=== PATIENT | female | born 1945 | race Caucasian/White ===

== ENCOUNTER 2016-07-21 18:22 | Inpatient (IN) | payer OTHER, MEDICARE ==
[~2016-07-21] VITALS: Ht 121.9 cm; Wt 61.0 kg
[~2016-07-21 18:22] MED LIST: ADVIN25050 INH; CHOL100010 PO; CLON0.3T PO; CRG25 PO; HYDR-4717 PO; HYDR2TAB48 PO; HYDR4TAB2 PO; LATA0.009 OPR; LINE1TAB7 PO; LORA-741 PO; METH10TA2 PO; TIOTCAP INH
[2016-07-21] MEDS ORDERED: POLYETHYLENE (MIRALAX) 17 GM PACK PO PRN ×2 (18:45→22:45)
[2016-07-21] MEDS ORDERED: ACETAMINOPHEN 325 MG TAB PO PRN ×2 (18:45→22:45)
[2016-07-21] MEDS ORDERED: ALUMINUM/MAGNESIUM/SIMETH (MAALOX MAX) 30 ML UDC PO PRN (18:45)
[2016-07-21] MEDS ORDERED: ONDANSETRON INJ 2 MG/ML 2 ML VIAL IV PRN (18:45)
[2016-07-21] MEDS ORDERED: ALBUTEROL 0.083% NEBU SOLN 3 ML VIAL INH PRN (18:45)
[2016-07-21] MEDS ORDERED: MAGNESIUM HYDROXIDE SUSP 30 ML UDC PO PRN (18:45)
[2016-07-21 18:48] VITALS: BP 131/82; PULSE 72; TEMP 37.1; O2SAT 94
[2016-07-21 19:05] VITALS: BP 131/82; PULSE 72; TEMP 37.1; O2SAT 94; Ht 121.9 cm; Wt 61.0 kg
[2016-07-21 19:26] LABS: BASO % 0.2 %; BASO ABS # 0.04 K/uL (0-0.2); COMPLETE YES; EOS % 1.2 %; HEMATOCRIT 38.9 % (37-47); IG% 1.5 %; MEAN CELL VOLUME 95.8 fL (80-100); MEAN CORPUSCULAR HEMOGLOBIN 30.5 pg (25-34); MEAN CORPUSCULAR HGB CONC 31.9 g/dl (32-36); MEAN PLATELET VOLUME 12.2 fL (7.4-10.4); MONO % 10.2 %; NEUT % 75.9 %; PLATELET COUNT 250 K/uL (130-400); RED BLOOD COUNT 4.06 M/uL (4.2-5.4); WHITE BLOOD COUNT 16.35 K/uL (4.8-10.8)
[2016-07-21 19:52] LABS: PROTHROMBIN TIME (PATIENT) 10.8 SECONDS (9.0-12.0)
[2016-07-21 20:05] LABS: BUN/CREATININE RATIO 20.4 (10-20); CALCIUM 9.4 mg/dl (8.5-10.1); CREATININE 1.9 mg/dl (0.60-1.20); POTASSIUM 3.5 mmol/L (3.5-5.1)
[2016-07-21] MEDS ORDERED: VANCOMYCIN INJ 1,500 MG in SODIUM CHLORIDE 0.9% 500ML 500 ML IV ONE (20:15)
[2016-07-21] MEDS ORDERED: VANCOMYCIN CONSULT ACTIVE PRN (20:30)
[2016-07-21] MEDS ORDERED: PIPERACILL/TAZOBAC CONSULT ACTIVE PRN (20:30)
--- NOTE | 2016-07-21 20:41 | Pharmacy Progress Note ---
Pharmacy Antibiotic Consult Date of Service: Jul 21, 2016. Pharmacy Dosing Scope Pharmacy is consulted to initiate Vanco/Zosyn IV dosing therapy, order appropriate labs and adjust drug dose/frequency. Subjective The patient is a 70 year old female admitted on Jul 21, 2016 at 18:22. Objective Height (Feet): 4 Weight (Kilograms): 61.000 Lab Results (24hrs): Item Value Date Time Creatinine 1.90 mg/dl H 07/21/161909 Est Creatinine Clear Calc Drug Dose 15.7 ml/min 07/21/161909 Laboratory Tests Test 07/21/16 19:10 BUN/Creatinine Ratio 20.4 Blood Urea Nitrogen 39 mg/dl Creatinine 1.90 mg/dl White Blood Count 16.35 K/uL Red Blood Count 4.06 M/uL Hemoglobin 12.4 g/dL Hematocrit 38.9 % Mean Corpuscular Volume 95.8 fL Mean Corpuscular Hemoglobin 30.5 pg Mean Corpuscular Hemoglobin Concent 31.9 g/dl Platelet Count 250 K/uL Mean Platelet Volume 12.2 fL Neutrophils (%) (Auto) 75.9 % Lymphocytes (%) (Auto) 11.0 % Monocytes (%) (Auto) 10.2 % Eosinophils (%) (Auto) 1.2 % Basophils (%) (Auto) 0.2 % Neutrophils # (Auto) 12.41 K/uL Lymphocytes # (Auto) 1.80 K/uL Monocytes # (Auto) 1.66 K/uL Eosinophils # (Auto) 0.20 K/uL Basophils # (Auto) 0.04 K/uL Micro Results: Item Value Date Time Blood Culture Received 07/21/161916 Blood Pending MRSA DNA Surveillance Screen Ordered 07/21/161844 Nasal Pending Assessment & Plan Pt is a 70yo F p/w pulmonary sx. Pt is familiar to the pharmacy kinetic team, she was admitted in March of 2016 for PNA. Pt's renal fxn looks to be slightly elevated to her baseline: Scr; 1.9, eCrCl: 16cc/min. Pt is a resident of [facility], has a PMHx postive for MRSA and CKD. Experiencing leukocytosis w / a left shift. MRSA nasal and BC are both currently pending. Pt population p' kinetics: t1/2=39hrs, ke=0.0177. Vanco * Loading dose: Vanco 1500mg (~25mg/kg) IV X 1 dose at 2100 * Goal trough level estimate: between 15 - 20 mcg/mL appropriate for PNA. * Random level has been ordered for: with AM labs. Zosyn * Set to receive Zosyn 3.375g 30 min infsn @ 21 * Then 3.375g q12h, appropriate for eCrCl <20cc/min and clinical status Thank you for consulting the pharmacy kinetic team and including us in the care of Ms. Sommers. Pharmacy will continue to follow and will adjust dose/frequency as necessary. Thank you
[2016-07-21] MEDS ORDERED: PIPERACILL/TAZOBAC IV 3.375 GM in DEXTROSE 5% 100ML IV ONE (21:00)
[2016-07-21] MEDS: ALBUT/IPRATROP 3MG/0.5MG NEB 3 ML VIAL INH SCH ×2 (21:00→23:18)
--- NOTE | 2016-07-21 21:12 | DIAGNOSTIC IMAGING REPORT ---
CHEST 2 VIEWS ROUTINE CLINICAL HISTORY: Pneumonia. Diffuse rhonchi. COMPARISON STUDY: 05/09/2016 FINDINGS: The heart is mildly enlarged. There is aortic tortuosity. There are multiple old rib fractures. There are multiple old compression fractures and the patient is status post multilevel vertebroplasty. There is fecal retention. There is no failure. There is no lobar consolidation. There are subsegmental atelectatic changes at both lung bases left greater than right. There are no significant pleural effusions.[ IMPRESSION: Basilar atelectatic changes. No active disease in the chest. Electronically signed by: Himanshu Cueto M.D. 07/21/2016 9:10 PM Dictated Date/Time: 07/21/2016 9:09 PM
[2016-07-21] MEDS: METHYLPREDNISOLONE IV 80 MG in SYRINGE 0 ML IV SCH (21:24)
[2016-07-21] MEDS: ENOXAPARIN 30 MG/0.3 ML SYR SQ SCH (21:26)
[2016-07-21] MEDS ORDERED: EPINEPHRINE ADULT AUTO-INJECT 0.3 MG SYR IM PRN (22:45)
--- NOTE | 2016-07-21 22:56 | History and Physical ---
History & Physical Date & Time of Service: Jul 21, 2016 at 22:49 Chief Complaint: Pneumonia - Failing Treatment Primary Care Physician: Marti Vila Past Medical/Surgical History Medical Problems: (1) Ambulatory dysfunction Status: Resolved (2) Cholelithiases Status: Resolved (3) Chronic Kidney Disease, Stage Iii (Moderate) Status: Chronic (4) Compression fracture of fourth lumbar vertebra Status: Resolved (5) Constipation Status: Resolved (6) Crystal arthritis Status: Chronic (7) Duodenal bulb ulcer Status: Chronic (8) DVT (deep venous thrombosis) Status: Resolved (9) Fecal impaction of colon Status: Resolved (10) Gout Status: Chronic (11) Gout attack Status: Resolved (12) Headache Status: Resolved (13) Hodgkins lymphoma Status: Resolved (14) Hyperlipidemia Nec/Nos Status: Chronic (15) Hypertension Status: Chronic (16) Hypertension Status: Resolved (17) Hypertensive urgency Status: Resolved (18) Hypertensive urgency Status: Resolved (19) Hypertensive urgency Status: Resolved (20) Intractable abdominal pain Status: Resolved (21) Intractable pain Status: Resolved (22) Intractable pain Status: Resolved (23) Intractable pain Status: Resolved (24) Knee pain Status: Resolved (25) Left renal artery stenosis Status: Resolved (26) Lumbar compression fracture Status: Chronic (27) Malignant HTN with heart disease, 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, with chronic kidney disease Status: Resolved (28) Medication reaction Status: Resolved (29) Methadone withdrawal Status: Resolved (30) Narcotic withdrawal Status: Resolved (31) Narcotic withdrawal Status: Resolved (32) Noncompliance with medication regimen Status: Resolved (33) Noncompliance with medications Status: Resolved (34) Opiate use Status: Chronic (35) Osteoporosis Status: Chronic (36) Perforated duodenal ulcer Status: Resolved (37) right hand cellulitis Status: Resolved (38) Right renal artery stenosis Status: Chronic (39) Secondary hyperparathyroidism Status: Chronic (40) Vomiting Status: Resolved (41) Wedge compression fracture of T11 vertebra Status: Resolved Surgical Problems: (1) History of kyphoplasty Status: Resolved (2) left renal artery stent placement Status: Resolved Family History Heart disease Social History Smoking Status: Former Smoker Drug Use: none Marital Status: Housing status: lives with significant other Occupational Status: disabled Immunizations History of Influenza Vaccine: Yes Influenza Vaccine Date: Mar 01, 2013 History of Tetanus Vaccine?: Yes Tetanus Immunization Date: Dec 18, 2009 History of Pneumococcal: Yes Pneumococcal Date: Jun 01, 2012 History of Hepatitis B Vaccine: No Multi-Drug Resistant Organisms History of MDRO: Yes Type of MDRO: MRSA Allergies Coded Allergies: Squash (Verified Allergy, Unknown, Zucchini, 04/22/16) Azithromycin (Verified Adverse Reaction, Unknown, nausea, 04/22/16) Levofloxacin (Verified Adverse Reaction, Unknown, nausea, 04/22/16) Home Medications Scheduled Allopurinol (Zyloprim), 100 MG PO BID Baclofen (Lioresal), 10 MG PO TID Carvedilol (Carvedilol), 25 MG PO BID Cholecalciferol (Vitamin D), 4,000 INTER.UNIT PO DAILY Clonidine Hcl (Catapres), 0.3 MG PO BID Ergocalciferol (Drisdol), 50,000 INTER.UNIT PO WEEKLY Ferrous Sulfate (Kp Ferrous Sulfate), 325 MG PO DAILY Fluticasone Prop/Salmeterol (Advair Diskus 250-50 Mcg/Dose), 1 PUFF INH BID Guaifenesin Ext Rel (Mucinex Ext Rel), 600 MG PO BID Hydralazine Hcl (Apresoline), 50 MG PO Q8H Hydromorphone Hcl (Dilaudid), 2 MG PO BID Hydromorphone Hcl (Dilaudid), 4 MG PO BID Latanoprost 0.005% Oph (Xalatan 0.005% Oph), 1 DROP OPR HS Linezolid (Zyvox), 600 MG PO BID Lorazepam (Ativan), 0.5 MG PO TID Methadone Hcl (Dolophine), 30 MG PO TID Multivitamin (Multivitamin), 1 TAB PO DAILY Pantoprazole (Protonix), 40 MG PO BID Prednisone (Prednisone), 5 MG PO DAILY Sucralfate (Carafate), 10 ML PO ACHS Tiotropium Lathrop (Spiriva Handihaler), 1 CAP INH DAILY Zolpidem Tartrate (Ambien), 10 MG PO HS Scheduled PRN Acetaminophen (Tylenol), 650 MG PO Q6 PRN for Pain or Fever Epinephrine (Epipen), 0.3 MG IM UD PRN for ALLERGIC REACTION Polyethylene Glycol 3350 (Miralax), 17 GM PO DAILY PRN for Constipation Physical Exam Vital Signs Date Time Temp Pulse Resp B/P Pulse Ox O2 Delivery O2 Flow Rate FiO2 07/21/16 19:05 37.1 72 18 131/82 94 Nasal Cannula 3.0 07/21/16 18:48 37.1 72 18 131/82 94 Nasal Cannula 3.0 Diagnostics Laboratory Results Results Past 24 Hours Test 07/21/16 19:10 Range/Units White Blood Count 16.35 4.8-10.8 K/uL Red Blood Count 4.06 4.2-5.4 M/uL Hemoglobin 12.4 12.0-16.0 g/dL Hematocrit 38.9 37-47 % Mean Corpuscular Volume 95.8 80-100 fL Mean Corpuscular Hemoglobin 30.5 25-34 pg Mean Corpuscular Hemoglobin Concent 31.9 32-36 g/dl Platelet Count 250 130-400 K/uL Mean Platelet Volume 12.2 7.4-10.4 fL Neutrophils (%) (Auto) 75.9 % Lymphocytes (%) (Auto) 11.0 % Monocytes (%) (Auto) 10.2 % Eosinophils (%) (Auto) 1.2 % Basophils (%) (Auto) 0.2 % Neutrophils # (Auto) 12.41 1.4-6.5 K/uL Lymphocytes # (Auto) 1.80 1.2-3.4 K/uL Monocytes # (Auto) 1.66 0.11-0.59 K/uL Eosinophils # (Auto) 0.20 0-0.5 K/uL Basophils # (Auto) 0.04 0-0.2 K/uL RDW Standard Deviation 54.0 36.4-46.3 fL RDW Coefficient of Variation 15.5 11.5-14.5 % Immature Granulocyte % (Auto) 1.5 % Immature Granulocyte # (Auto) 0.24 0.00-0.02 K/uL Prothrombin Time 10.8 9.0-12.0 SECONDS Prothromb Time International Ratio 1.0 0.9-1.1 Sodium Level 139 136-145 mmol/L Potassium Level 3.5 3.5-5.1 mmol/L Chloride Level 94 98-107 mmol/L Carbon Dioxide Level 38 21-32 mmol/L Anion Gap 7.0 3-11 mmol/L Blood Urea Nitrogen 39 7-18 mg/dl Creatinine 1.90 0.60-1.20 mg/dl Est Creatinine Clear Calc Drug Dose 15.7 ml/min Estimated GFR () 30.9 Estimated GFR (Non- 26.6 BUN/Creatinine Ratio 20.4 10-20 Random Glucose 105 70-99 mg/dl Calcium Level 9.4 8.5-10.1 mg/dl Chemistry Specimen Hemolysis Microbiology Results 07/21/16 Blood Culture, Received Pending 07/21/16 Blood Culture, Received Pending 07/21/16 MRSA DNA Surveillance Screen, Received Pending Impression Assessment and Plan admit #[id number] Advanced Directives Existing Living Will: No Existing Power of [employer] Instructor: No VTE Prophylaxis VTE Risk Assessment Done? Y/N: Yes Risk Level: Moderate
[2016-07-21 23:18] VITALS: PULSE 64; O2SAT 91
[2016-07-21] MEDS ORDERED: ZOLPIDEM TARTRATE 10 MG TAB ONE (23:26)
[2016-07-21 23:39] VITALS: BP 161/90; PULSE 62; TEMP 37; O2SAT 92
[2016-07-21] MEDS: SODIUM CHLORIDE 0.45% 1000ML 1,000 ML IV SCH (23:51)
[2016-07-22] VITALS (10 sets, daily range): BP systolic 167–183; BP diastolic 84–98; PULSE 56–74; TEMP 36.7–37.2; O2SAT 90–95
[2016-07-22] MEDS ORDERED: PIPERACILL/TAZOBAC IV 3.375 GM in DEXTROSE 5% 100ML 100 ML IV SCH ×2
--- NOTE | 2016-07-22 00:44 | HISTORY & PHYSICAL EXAMINATION ---
DATE OF ADMISSION: 07/21/2016 CHIEF COMPLAINT: Shortness of breath. HISTORY OF PRESENT ILLNESS: The patient is a very pleasant 70-year-old female, well known to myself from care at [facility] who has been struggling really for quite a while with respiratory illness. Dr. Carrillo and myself have both been taking care of her really throughout most of the last month. She had actually, early in May been on Rocephin for pneumonia right around [place] , was failing transition to doxycycline, she improved. By mid May she was looking fairly good from a pneumonia standpoint, but then by June 23 she appeared to have pneumonia again, was treated presumptively with conservative care after the x-ray did not necessarily confirm an infiltrate, but then on June 30 she had a choking event during breakfast, having an aspiration event with rales consistent with an early pneumonitis at least or may be an aspiration pneumonia and was treated with cefdinir and Flagyl. She improved over the course of about a week, but then about 10 days after that appeared to have more of a COPD exacerbation type picture where she had diffuse bilateral wheezing, thick sputum and really felt very fatigued. Her chest x-ray then showed no infiltrate. It did show some basilar atelectasis. She was treated then with steroids, oxygen supportive care, nebs and doxycycline to cover for atypicals, but she notes really she has never recovered and today whenever Dr. Carrillo saw her she appeared struggling a bit to breathe, appeared very fatigued and her lungs sounded extremely rhonchorous, so she was directly admitted for ongoing treatment given everything that she has failed. She has not had fevers, chills or sweats. She does have a cough, previously it was a tannish yellow sputum, but now she notes that she really can even bring it up and at times feels like she is choking or going to drown on her sputum, but it is nonproductive. She notes it feels large and thick "like a hairball" and these episodes certainly put her into rather significant respiratory distress and generally she feels weak and run-down. PAST MEDICAL HISTORY: Significant for COPD with fairly low FEV1 on PFTs done about a year ago, chronic kidney disease stage 3 although her creatinine tends to run even maybe a little bit better than that, but her creatinine does tend to run in the better end of stage 3 whenever she is not on diuretics as much. However, she has peripheral edema likely venous insufficiency that sometimes nephrology has felt the need to use diuretics. Renal artery stenosis, hypertension, hyperlipidemia, GERD, weakness, deconditioning, severe osteoporosis and recurrent pneumonias. 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 PAST SURGICAL HISTORY: Kyphoplasty, fracture repairs and renal artery stenting. ALLERGIES: ZITHROMAX, LEVAQUIN SOCIAL HISTORY: Former smoker, uncertain how many pack years, but did not seem to be for very long and quit a while ago. She is . She is currently residing at [facility]. FAMILY HISTORY: Includes heart disease and kidney cancer. No diabetes. MEDICATIONS: Her home meds are Tylenol 650 q. 6 p.r.n., allopurinol 100 mg b.i.d., baclofen 10 mg t.i.d., Coreg 25 mg b.i.d., vitamin D 4000 IU daily, clonidine 0.3 b.i.d., EpiPen p.r.n. allergic reaction, Drisdol 50,000 IU weekly, iron sulfate 325 daily, Advair 250/50 one puff b.i.d., Mucinex 600 mg b.i.d., hydralazine 50 mg q. 8 hours, Dilaudid q.i.d. but alternating between 2 mg and 4 mg as we have been slowly weaning her pain meds, Xalatan drops on drop at bedtime. She has recently been on Zyvox, Ativan 0.5 mg t.i.d., methadone 30 mg t.i.d., multivitamin daily, Protonix 40 mg b.i.d., MiraLax 17 grams daily p.r.n. constipation, prednisone 5 mg daily, Carafate 10 mL p.o. q.a.c. and at bedtime, Spiriva 18 mcg one puff daily and Ambien 10 mg at bedtime. PHYSICAL EXAMINATION: VITAL SIGNS: Temperature 37.1, pulse 72, respiratory rate 18, blood pressure 131/82 and 94% on three liters. GENERAL: She is awake, alert, oriented x3, very fatigued-appearing, but otherwise in no acute distress. HEENT: Normocephalic and atraumatic. Mucous membranes are moist. CARDIOVASCULAR: Distant but regular without rubs, murmurs or gallops. LUNGS: Show diffuse coarse rhonchi and expiratory wheezing. She has good air entry, but certainly has more adventitious sounds I have ever heard in her lungs, no rales, it is not necessarily focal and she does not show accessory muscles. ABDOMEN: Soft, nondistended, nontender, no masses or organomegaly. EXTREMITIES: Without cyanosis, clubbing or edema. No calf tenderness. SKIN: Shows no rashes, no pallor or icterus. NEUROLOGIC: Shows cranial nerves II-XII to be grossly intact. Gross motor and sensory are intact. MENTAL STATE: Shows good recent and remote recall. Normal mood and affect. Good judgment and insight. LABORATORIES AND DIAGNOSTICS: CBC shows a white count of 16.35, hemoglobin 12.4, platelets 250. Basic metabolic panel with; sodium 139, potassium 3.5, chloride 94, CO2 38, BUN 39, creatinine 1.9, calcium 9.4, glucose 105. PT of 10.8. Chest x-ray; showing multiple old rib fractures, vertebral compression fractures, multilevel vertebroplasty and fecal retention. No failure, no lobar consolidation, subsegmental atelectasis per radiology review. Questionable haziness at the right lung base and the left middle lung field to my review and certainly not the best inspiration, little bit of a difficult film to interpret. ASSESSMENT AND PLAN: 1. Respiratory distress, with rhonchi. Clinically, this appears to be pneumonia more likely than a chronic obstructive pulmonary disease exacerbation, although easily it could be one, the other or both. Given her recent track record of having had repeated and recurrent pulmonary infections, I harbour big concerns about her ability to maintain any sort of healthy pulmonary toilet on her own, leading to spaces of mucus in her lungs and bacterial overgrowth. This seems more likely than repeated aspiration events given that she did have one aspiration event, but she noted it more as a choking episode and certainly multiple times that I have seen her at the facility she is eating whenever we are talking and she shows no signs or symptoms of aspiration. Because of this, will need to be treating as healthcare-associated pneumonia. 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 She certainly would be high risk for gram negatives. We will use Zosyn and ask pulmonary to see her. In terms of pulmonary toilet we will use steroids, frequent nebs, flutter valve and respiratory chest physical therapy to be safe given that she did have one choking event recently. We will have speech see her. I doubt she has a primary immune deficiency as antibody levels checked in September whenever she had a previous run of pneumonia appeared appropriate. Certainly, she is frail and is generically immunocompromised due to her frailty and chronic comorbidities. 2. Chronic kidney disease. She is increased from her baseline range. We will be holding off on any diuretics giving her gentle IV fluids. 3. Venous insufficiency. I will preemptively add compression stockings even though she has no edema at this time to try to protect against the swelling that leads to her asking for diuretics. 4. Severe refractory osteoporosis, continue her vitamin D. She sees endocrinology, I believe she is on Prolia as an outpatient. 5. Hyperparathyroidism. Continue vitamin D supplementation. 6. Chronic obstructive pulmonary disease. Continue inhalers, see above otherwise. 7. Weakness and deconditioning. Physical therapy and occupational therapy evaluation and treat. 8. Chronic diastolic congestive heart failure. Follow generally, she has not had very many congestive heart failure exacerbations. 9. Deep venous thrombosis prophylaxis, Lovenox. 10. Chronic pain, continue her home medications. 11. Chronic constipation, MiraLax 17 grams daily with an additional possibility of 2 more doses for 3 total in a day p.r.n. refractory constipation. At different times, she has required even more than that to effect a reasonable bowel movement. 12. Hypertension, continue her home medications. MTDD
[2016-07-22] MEDS: PIPERACILL/TAZOBAC IV 3.375 GM in DEXTROSE 5% 100ML IV SCH ×2 (01:32→16:40)
[2016-07-22] MEDS: METHYLPREDNISOLONE IV 80 MG in SYRINGE 0 ML IV SCH ×3 (03:46→20:34)
[2016-07-22] MEDS: ALBUT/IPRATROP 3MG/0.5MG NEB 3 ML VIAL INH SCH ×6 (04:00→23:54)
[2016-07-22 05:47] LABS: BASO % 0.2 %; BASO ABS # 0.03 K/uL (0-0.2); COMPLETE YES; HEMATOCRIT 36.1 % (37-47); IG% 1.2 %; LYMPH % 6.6 %; LYMPH ABS # 1.08 K/uL (1.2-3.4); MEAN CELL VOLUME 92.6 fL (80-100); MEAN CORPUSCULAR HEMOGLOBIN 29.7 pg (25-34); MEAN CORPUSCULAR HGB CONC 32.1 g/dl (32-36); MEAN PLATELET VOLUME 11.8 fL (7.4-10.4); MONO % 1.1 %; NEUT % 90.9 %; PLATELET COUNT 225 K/uL (130-400); WHITE BLOOD COUNT 16.25 K/uL (4.8-10.8)
[2016-07-22] MEDS: SUCRALFATE 1 GM/10 ML UDC PO SCH ×4 (06:09→20:33)
[2016-07-22 06:27] LABS: BUN/CREATININE RATIO 21.6 (10-20); CALCIUM 8.8 mg/dl (8.5-10.1); CREATININE 1.7 mg/dl (0.60-1.20); POTASSIUM 3.7 mmol/L (3.5-5.1)
[2016-07-22] MEDS: PANTOprazole SOD 40 MG TAB PO SCH ×2 (07:56→20:36)
[2016-07-22] MEDS: POLYETHYLENE (MIRALAX) 17 GM PACK PO SCH (07:57)
[2016-07-22] MEDS: ALLOPURINOL 100 MG TAB PO SCH ×2 (07:57→20:31)
[2016-07-22] MEDS: CHOLECALCIFEROL 1000 INTER.UNIT TAB PO SCH (07:58)
[2016-07-22] MEDS: MULTIVITAMIN TAB PO SCH (07:58)
[2016-07-22] MEDS: CLONIDINE HCL 0.3 MG TAB PO SCH ×2 (07:59→20:32)
[2016-07-22] MEDS: CARVEDILOL 25 MG TAB PO SCH ×2 (07:59→20:34)
[2016-07-22] MEDS: GUAIFENESIN 600 MG TABCR PO SCH ×2 (07:59→20:31)
[2016-07-22] MEDS: BACLOFEN 10 MG TAB PO SCH ×3 (08:00→20:35)
[2016-07-22] MEDS ORDERED: HYDROmorphone HCL 2 MG TAB PO SCH (08:00)
[2016-07-22] MEDS: FERROUS SULFATE 325 MG TAB PO SCH (08:00)
[2016-07-22] MEDS: FLUTICASONE/SALMETEROL 250/50 (ADVAIR) 14 PUFF/1 INHALER INH SCH ×2 (08:01→20:30)
[2016-07-22] MEDS: ERGOCALCIFEROL 50,000 INTER.UNIT CAP PO SCH (08:30)
--- NOTE | 2016-07-22 08:37 | Clinical Documentation Query ---
Dr. [facility] : CLINICAL DOCUMENTATION QUERY Patient is a 70 year old female admitted for treatment of healthcare associated pneumonia. 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 As appropriate, please explicitly link the above statements to the clinical diagnosis of pneumonia. Thank you. In your clinical opinion is this patient being managed for: ( X ) (Possible/Suspected) gram-negative and/or MRSA pneumonia, treated with IV Zosyn and Vancomycin ( ) Other explanation of clinical findings (Please Explain) ( ) Unable to determine (Please Define) ( ) Need to Discuss ( ) Not Agree The medical record reflects the following clinical findings, treatment, and risk factors. Clinical Indicators: As above Treatment: Zosyn, Vancomycin, pulmonary consultation, steroids, nebs, flutter valve, chest PT Risk Factors: Age, shelter residence, MRSA carrier history, recent hospitalization, COPD Please clarify and document your clinical opinion in the progress notes and discharge summary. Terms such as "probable", "suspected", "likely", "questionable", "possible", or "still to be ruled out" are acceptable. IF IN AGREEMENT, YOU MUST DOCUMENT ABOVE DIAGNOSTIC STATEMENT IN DAILY PROGRESS NOTES AND DISCHARGE SUMMARY. This document is not part of the patient's record. Thank You, Ad Benitez, LARA [phone]
[2016-07-22] MEDS: TIOTROPIUM BROMIDE 5 PUFF/90 MCG INH INH SCH (08:49)
[2016-07-22] MEDS: METHADONE HCL 10 MG TAB PO SCH ×3 (08:58→20:32)
[2016-07-22] MEDS: HYDROmorphone HCL 2 MG TAB PO SCH ×2 (08:58→20:32)
--- NOTE | 2016-07-22 09:12 | Progress Note ---
Subjective Subjective Date of Service: Jul 22, 2016. Problem List Medical Problems: (1) Bilateral pneumonia Status: Acute (2) CHF (congestive heart failure) Status: Acute (3) Chronic Kidney Disease, Stage Iii (Moderate) Status: Chronic (4) COPD exacerbation Status: Acute (5) Crystal arthritis Status: Chronic (6) Duodenal bulb ulcer Status: Chronic (7) Failure of outpatient treatment Status: Acute (8) Failure of outpatient treatment Status: Acute (9) Gout Status: Chronic (10) Hyperlipidemia Nec/Nos Status: Chronic (11) Hypertension Status: Chronic (12) Hypoxemia Status: Acute (13) Hypoxia Status: Acute (14) Hypoxia Status: Acute (15) Hypoxia Status: Acute (16) Lumbar compression fracture Status: Chronic (17) Opiate use Status: Chronic (18) Osteoporosis Status: Chronic (19) Peripheral edema Status: Acute (20) Pneumonia Status: Acute (21) Pneumonia involving right lung Status: Acute (22) Respiratory acidosis Status: Acute (23) Respiratory distress Status: Acute (24) Right renal artery stenosis Status: Chronic (25) Secondary hyperparathyroidism Status: Chronic (26) UTI (urinary tract infection) Status: Acute Physical Exam Vital Signs Vital Signs Past 24 Hours: Date Time Temp Pulse Resp B/P Pulse Ox O2 Delivery O2 Flow Rate FiO2 07/22/16 07:44 36.7 58 20 167/94 91 07/22/16 07:15 70 16 93 Nasal Cannula 3.0 07/22/16 06:07 56 171/93 07/22/16 00:00 Nasal Cannula 3.0 07/21/16 23:39 37.0 62 18 161/90 92 Nasal Cannula 2.0 07/21/16 23:18 64 16 91 Nasal Cannula 3.0 07/21/16 19:05 37.1 72 18 131/82 94 Nasal Cannula 3.0 07/21/16 18:48 37.1 72 18 131/82 94 Nasal Cannula 3.0 Assessment and Plan Possible/Suspected) gram-negative and/or MRSA pneumonia, treated with IV Zosyn and Vancomycin
--- NOTE | 2016-07-22 10:26 | Pulmonary Consultation ---
History General Date of Service: Jul 22, 2016. Stated Complaint: Pneumonia - Failing Treatment HPI The patient is a 70 year old female who presents to [facility] with complaints of Pneumonia - Failing Treatment. The patient's primary care provider is Marti Vila. 62-year-old female admitted for acute on chronic respiratory insufficiency/ cough. Over the last 6 months the patient has been treated multiple times for pneumonia and continued cough. We'll last week she's had continued cough and unable to expectorate sputum and notable increased dyspnea. The patient has been worked up in the past for her chronic cough with bronchoscopy, CVID, pulmonary function tests, echocardiogram and microbiologic analysis. The pulmonary function tests note the patient has severe COPD with an FEV1 of 34%, echocardiogram notes diastolic dysfunction with an elevated left ventricular function greater than 70% and mildly to moderately elevated pulmonary arterial systolic pressures estimated B [address] of the chest also shows chronic bilateral posterior bronchiectasis/rounded atelectasis. As the patient has had continued episodes of pneumonia/ bronchiectasis with minimal response to antibiotics and steroids she was directly admitted for further workup. Current Work-Up: Microbiology Blood Cx x2 Pending WBC 16K 91% Neutro ( chronically elevated) INR: 1.0 Carbon Dioxode: 35 BUN/Cr: 37/1.70 CXR compared to 05/09/16 Emphysema, (b) basilar costo-phrenic blunting R>L No acute changes Previous Work-Up: Echocardiogram 10/28/2015: LVEF >70%, diastolic dysfunction, normal PASP (28 mmHg) PFT 10/06/2015: FVC: 1.25/54%, FEV1: 0.8/43%, FEV1/FVC: 77%, FEF 25-75%: 2.42/21% - no significant response to bronchodilator. Microbiology: o Urine: (04/14/15) Proteus o Rt Elbow (06/12/15) MRSA o Urine (09/27/15) Proteus o BAL (10/12/15) no-significant growth o Sputum (05/01/16) MRSA Free Mellette 03/07/16 03/29/16 32.1 > 28.4 > Free Lambda 26.7 > 25.1 = CT thorax 10/07/15 o Emphysema o (b) pleural thickening with associated bronchiectasis and rounded atelectasis Treatment: 1)Advair 250/50 BID 2)Mucinex 600mg BID 3)Prednisone 5mg QD 4)Spiriva QD 5)Zosyn 3.375b Q12 6)Vancomycin 7)Lovenox 30mg QD #8 Solu-Medrol Review of Systems Constitutional: reports: weakness Eyes: reports: no symptoms ENT: reports: no symptoms Cardiovascular: reports: no symptoms Respiratory: reports: as stated in HPI Gastrointestinal: reports: no symptoms Genitourinary - Female: reports: no symptoms Musculoskeletal: reports: joint pain, myalgias Integumentary: reports: no symptoms Neurologic: reports: no symptoms Psychiatric: reports: no symptoms Endocrine: no symptoms Hematologic / Lymphatic: no symptoms Allergic / Immunologic: no symptoms Past Medical History Past Medical History: 1)Urinary tract infection (proteus penneri on culture) 2)chronic Left DVT 3)COPD/emphysema (oxygen dependency) 4)bilateral pneumonia 5)cholecystitis 6)CKD III (renal arterial stenosis, baseline Cr: 1.6) 7)Chronic (b) lower ext edema 8)Anemia of chronic disease 9)multiple compression fracture of the spine 10)duodenal gastric ulcer with perforation 11)Hodgkin lymphoma 12)Hyperlipidemia 13)Hypertension 14)left renal artery stenosis 15)right renal artery stenosis 16)hypoparathyroidism 17)Former tobacco use: 5 pack-year (quit 37 years ago) 18)residing in [facility] 19)hiatal hernia 20)Renal Stones 21)Rt nasal Fx 22)Chronic Pain syndrome on Methadone 23)Crystal arthritis/Gout 24)Right hand cellulitis 25)MRSA 26)Bilateral humeral fractures 04/2015 Past Surgical History: 1) Back Surgery/ kypholpasty 2) Cervical Conization 3) Exploratory Laparotomy a. Buttressed José Miguel patch repair of anterior duodenal perforation b. 03/21/2014 4) Transcath Intravascular Stent Placement Percutaneous Renal a. 05/13/2013 5) Bronchoscopy 10/12/15 Family History Heart disease Father: Kidney CA Graves Disease Occupational History: [id number] - Asbestos: YES - Unknown Radon Exposure Social History Tobbacco: 1/2ppd. [id number] [id number] (started age 23. [id number] SnaqgCulzrem2Dowis She quit smoking at age 39 years ago: 10 year total) ETOH: social Retired Hx Tobacco Use In Past Year?: No (quit in 1977) Smoking Status: Former Smoker Marital status: Housing status: lives with significant other Occupational Status: disabled Immunizations History of Influenza Vaccine: Yes Influenza Vaccine Date: Mar 01, 2013 History of Tetanus Vaccine?: Yes Tetanus Immunization Date: Dec 18, 2009 History of Pneumococcal: Yes Pneumococcal Date: Jun 01, 2012 History of Hepatitis B Vaccine: No History of MDRO History of MDRO: Yes Type of MDRO: MRSA Allergies Coded Allergies: Squash (Verified Allergy, Unknown, Zucchini, 04/22/16) Azithromycin (Verified Adverse Reaction, Unknown, nausea, 04/22/16) Levofloxacin (Verified Adverse Reaction, Unknown, nausea, 04/22/16) Current Medications Reported Home Medications Medications Dose Route/Sig Max Daily Dose Days Date Category Dose Instructions Carvedilol 25 Mg Tab 25 Mg PO BID 05/11/16 Rx Zyvox (Linezolid) 600 Mg Tab 600 Mg PO BID 05/11/16 Rx Apresoline (Hydralazine Hcl) 50 Mg Tab 50 Mg PO Q8H 04/22/16 Reported Dilaudid (Hydromorphone Hcl) 4 Mg Tab 4 Mg PO BID 04/22/16 Reported Dilaudid (Hydromorphone Hcl) 2 Mg Tab 2 Mg PO BID 04/22/16 Reported Ambien (Zolpidem Tartrate) 10 Mg Tab 10 Mg PO HS 04/22/16 Reported Prednisone 1 Mg Tab 5 Mg PO DAILY 03/14/16 Reported Kp Ferrous Sulfate (Ferrous Sulfate) 325 Mg Tab 325 Mg PO DAILY 03/14/16 Reported Drisdol (Ergocalciferol) 50,000 Unit Cap 50,000 Inter.unit PO WEEKLY 03/14/16 Reported MONDAY Ativan (Lorazepam) 0.5 Mg Tab 0.5 Mg PO TID 11/03/15 Rx Dolophine (Methadone HCl) 10 Mg Tab 30 Mg PO TID 30 11/03/15 Rx Epipen (Epinephrine) 0.3 Mg/0.3 Ml Inj 0.3 Mg IM UD PRN 10/28/15 Reported Protonix (Pantoprazole Sodium) 40 Mg Tab 40 Mg PO BID 10/28/15 Reported Advair Diskus 250-50 Mcg/Dose (Fluticasone Prop/Salmeterol) 14 Puff/1 Inhaler Aerp 1 Puff INH BID 10/12/15 Rx Miralax (Polyethylene Glycol 3350) 1 Pow Pow 17 Gm PO DAILY PRN 10/02/15 Reported Xalatan 0.005% Oph (Latanoprost) Soln 1 Drop OPR HS 10/02/15 Reported Zyloprim (Allopurinol) 100 Mg Tab 100 Mg PO BID 08/08/15 Reported Multivitamin (Multivitamins) Tab 1 Tab PO DAILY 08/05/15 Reported Mucinex Ext Rel (Guaifenesin) 600 Mg Tab 600 Mg PO BID 08/05/15 Reported Carafate (Sucralfate) 1 Gm/10 Ml Qi 10 Ml PO ACHS 08/05/15 Reported Tylenol (Acetaminophen) 325 Mg Tab 650 Mg PO Q6 PRN 06/11/15 Reported Lioresal (Baclofen) 10 Mg Tab 10 Mg PO TID 05/02/15 Reported Spiriva Handihaler (Tiotropium Jasper) 18 Mcg/ Aerp 1 Cap INH DAILY 05/02/15 Reported Vitamin D (Cholecalciferol) 1,000 Inter.unit Tab 4,000 Inter.unit PO DAILY 05/02/15 Reported Catapres (Clonidine Hcl) 0.3 Mg Tab 0.3 Mg PO BID 04/08/15 Reported Physical Physical Exam Vital Signs: Date Time Temp Pulse Resp B/P Pulse Ox O2 Delivery O2 Flow Rate FiO2 07/22/16 07:44 36.7 58 20 167/94 91 07/22/16 07:15 70 16 93 Nasal Cannula 3.0 07/22/16 06:07 56 171/93 07/22/16 00:00 Nasal Cannula 3.0 07/21/16 23:39 37.0 62 18 161/90 92 Nasal Cannula 2.0 07/21/16 23:18 64 16 91 Nasal Cannula 3.0 07/21/16 19:05 37.1 72 18 131/82 94 Nasal Cannula 3.0 07/21/16 18:48 37.1 72 18 131/82 94 Nasal Cannula 3.0 General Appearance: mild distress Head: NORMOCEPHALIC, ATRAUMATIC Eyes: PERRLA, NO DISCHARGE, EOMI, SCLERAE NORMAL ENT: NORMAL EAR EXAM, NORMAL NASAL EXAM, NORMAL MOUTH EXAM, NORMAL THROAT EXAM , NORMAL DENTAL EXAM Neck: NORMAL RANGE OF MOTION, NO TENDERNESS, TRACHEA MIDLINE Respiratory: other (rhonchi bilaterally with expiratory wheezing) Cardiovasular: REGULAR RATE/RHYTHM, NORMAL S1S2, NO M/G/R, NO MURMUR Abdomen: NON TENDER, NORMAL BOWEL SOUNDS, NO REBOUND, NO MASSES, NO GUARDING Genitourinary - Female: EXTERNAL GENITALIA NORMAL Back: other (kyphosis) Upper Extremities: NO EDEMA, NO DEFORMITY, NORMAL ROM Lower Extremities: NO EDEMA, NO DEFORMITY, NORMAL ROM Pulses: carotid (R) (2+), carotid (L) (2+), posterior tibial (R), posterior tibial (L) (2+) Neuro: ALERT, ORIENTED x 3, NORMAL MOTOR EXAM, NORMAL SENSATION, NORMAL CEREBELLAR EXAM Reflexes: biceps (R) (1+), bicpes (L) (1+), achilles (R) (1+), achilles (L) (1+ ) Babinski Testing: right (downgoing), left (downgoing) Psychiatric: NORMAL AFFECT Diagnostics Labs Results Past 24 Hours Test 07/21/16 19:10 07/22/16 05:20 Range/Units White Blood Count 16.35 16.25 4.8-10.8 K/uL Red Blood Count 4.06 3.90 4.2-5.4 M/uL Hemoglobin 12.4 11.6 12.0-16.0 g/dL Hematocrit 38.9 36.1 37-47 % Mean Corpuscular Volume 95.8 92.6 80-100 fL Mean Corpuscular Hemoglobin 30.5 29.7 25-34 pg Mean Corpuscular Hemoglobin Concent 31.9 32.1 32-36 g/dl Platelet Count 250 225 130-400 K/uL Mean Platelet Volume 12.2 11.8 7.4-10.4 fL Neutrophils (%) (Auto) 75.9 90.9 % Lymphocytes (%) (Auto) 11.0 6.6 % Monocytes (%) (Auto) 10.2 1.1 % Eosinophils (%) (Auto) 1.2 0.0 % Basophils (%) (Auto) 0.2 0.2 % Neutrophils # (Auto) 12.41 14.77 1.4-6.5 K/uL Lymphocytes # (Auto) 1.80 1.08 1.2-3.4 K/uL Monocytes # (Auto) 1.66 0.18 0.11-0.59 K/uL Eosinophils # (Auto) 0.20 0.00 0-0.5 K/uL Basophils # (Auto) 0.04 0.03 0-0.2 K/uL RDW Standard Deviation 54.0 51.9 36.4-46.3 fL RDW Coefficient of Variation 15.5 15.3 11.5-14.5 % Immature Granulocyte % (Auto) 1.5 1.2 % Immature Granulocyte # (Auto) 0.24 0.19 0.00-0.02 K/uL Prothrombin Time 10.8 9.0-12.0 SECONDS Prothromb Time International Ratio 1.0 0.9-1.1 Sodium Level 139 136 136-145 mmol/L Potassium Level 3.5 3.7 3.5-5.1 mmol/L Chloride Level 94 93 98-107 mmol/L Carbon Dioxide Level 38 35 21-32 mmol/L Anion Gap 7.0 8.0 3-11 mmol/L Blood Urea Nitrogen 39 37 7-18 mg/dl Creatinine 1.90 1.70 0.60-1.20 mg/dl Est Creatinine Clear Calc Drug Dose 15.7 17.6 ml/min Estimated GFR () 30.9 35.3 Estimated GFR (Non- 26.6 30.5 BUN/Creatinine Ratio 20.4 21.6 10-20 Random Glucose 105 165 70-99 mg/dl Calcium Level 9.4 8.8 8.5-10.1 mg/dl Chemistry Specimen Hemolysis Random Vancomycin Level 22.1 mcg/ml Microbiology Results 07/21/16 Blood Culture, Received Pending 07/21/16 Blood Culture, Received Pending 07/21/16 MRSA DNA Surveillance Screen - Final, Complete Specimen Positive for MRSA by DNA Probe Diagnostic Radiology CXR compared to 05/09/16 Emphysema, (b) basilar costo-phrenic blunting R>L No acute changes Impression Assessment and Plan 8-year-old female with chronic cough and recurrent pneumonia/bronchiectasis: #1 COPD: Patient has severe COPD with an FEV1 of 43% predicted. Agree with continuing: Advair, Mucinex, Spiriva, Solu-Medrol and nebulizers at this time. There's been no acute change in the patient's chest x-ray suggesting new onset pneumonia. This could be from chronic bronchiectasis. I did attempt to perform bronchoscopy on the patient today but she decided to wait over the weekend to see if she improved. I do believe bronchoscopy could benefit possibly removal mucous plugs versus finding intra-airway abnormality/foreign body is a patient has recently aspiration event. This patient has been on multiple antibiotics ruling out active infection by bronchoscopy or sputum would be very difficult. Suggestions: Initiate dornase, repeat noncontrast CT of the chest if patient willing perform bronchoscopy either as an inpatient or as an outpatient. #2 chronic cough: High probability multifactorial with severe COPD/ bronchiectasis, CT of the thorax shows bilateral posterior lower lobe bronchiectasis possible rounded atelectasis. I do believe further evaluation for aspiration events is warranted.
--- NOTE | 2016-07-22 12:16 | DIAGNOSTIC IMAGING REPORT ---
CHEST CT WITHOUT CONTRAST CT DOSE: 246.32 mGycm HISTORY: Dyspnea cough TECHNIQUE: Multiaxial CT images of the chest were performed without contrast. COMPARISON: 10/07/2015 FINDINGS: mild Baseline emphysematous change. Chronic bibasilar atelectatic change. Trace pleural fluid both lung bases. This is similar compared to the patient's prior CT study. There are no new or interval findings. Compression deformities and vertebral plasties considered pre-existing are again noted. IMPRESSION: Small chronic bibasilar foci of atelectatic change with a trace amount of pleural fluid. No change in terms of CT findings as compared to the prior study of 2015. No new or interval process. Electronically signed by: Klever June M.D. 07/22/2016 12:15 PM Dictated Date/Time: 07/22/2016 11:57 AM
[2016-07-22] MEDS: VANCOMYCIN INJ 600 MG in SODIUM CHLORIDE 0.9% 250ML 250 ML IV SCH (12:20)
[2016-07-22] MEDS: SODIUM CHLORIDE 0.45% 1000ML 1,000 ML IV SCH (12:21)
[2016-07-22] MEDS: LORAZEPAM 1 MG TAB PO PRN ×2 (12:27→20:42)
--- NOTE | 2016-07-22 13:47 | Progress Note ---
Subjective Subjective Date of Service: Jul 22, 2016. Pt evaluation today including: conversation w/ patient, physical exam, chart review, review of studies, review of inpatient medication list Problem List Medical Problems: (1) Bilateral pneumonia Status: Acute (2) CHF (congestive heart failure) Status: Acute (3) Chronic Kidney Disease, Stage Iii (Moderate) Status: Chronic (4) COPD exacerbation Status: Acute (5) Crystal arthritis Status: Chronic (6) Duodenal bulb ulcer Status: Chronic (7) Failure of outpatient treatment Status: Acute (8) Failure of outpatient treatment Status: Acute (9) Gout Status: Chronic (10) Hyperlipidemia Nec/Nos Status: Chronic (11) Hypertension Status: Chronic (12) Hypoxemia Status: Acute (13) Hypoxia Status: Acute (14) Hypoxia Status: Acute (15) Hypoxia Status: Acute (16) Lumbar compression fracture Status: Chronic (17) Opiate use Status: Chronic (18) Osteoporosis Status: Chronic (19) Peripheral edema Status: Acute (20) Pneumonia Status: Acute (21) Pneumonia involving right lung Status: Acute (22) Respiratory acidosis Status: Acute (23) Respiratory distress Status: Acute (24) Right renal artery stenosis Status: Chronic (25) Secondary hyperparathyroidism Status: Chronic (26) UTI (urinary tract infection) Status: Acute Review of Systems Constitutional: No fever ENT: No hearing loss Respiratory: + dyspnea on exertion, No cough Cardiac: No chest pain Abdomen: No pain Musculoskeletal: No joint pain Female : No urinary frequency Neurologic: No memory loss Psychiatric: No depression symptoms Physical Exam Vital Signs Vital Signs Past 24 Hours: Date Time Temp Pulse Resp B/P Pulse Ox O2 Delivery O2 Flow Rate FiO2 07/22/16 11:35 74 16 93 Nasal Cannula 3.0 07/22/16 09:00 91 Nasal Cannula 3.0 07/22/16 07:44 36.7 58 20 167/94 91 07/22/16 07:15 70 16 93 Nasal Cannula 3.0 07/22/16 06:07 56 171/93 07/22/16 00:00 Nasal Cannula 3.0 07/21/16 23:39 37.0 62 18 161/90 92 Nasal Cannula 2.0 07/21/16 23:18 64 16 91 Nasal Cannula 3.0 07/21/16 19:05 37.1 72 18 131/82 94 Nasal Cannula 3.0 07/21/16 18:48 37.1 72 18 131/82 94 Nasal Cannula 3.0 Physical Exam: General Appearance: WD/WN, no apparent distress Eyes: bilateral eyes normal inspection ENT: hearing grossly normal, pharynx normal Neck: no adenopathy, no JVD Respiratory/Chest: no accessory muscle use, + wheezing Cardiovascular: regular rate, rhythm, no gallop Abdomen: normal bowel sounds, soft Extremities: non-tender Neurologic/Psychiatric: normal mood/affect Medications Medications: Current Inpatient Medications Medications (Trade) Dose Ordered Sig/Estephania Route Start Time Stop Time Status Last Admin Dose Admin Enoxaparin Sodium (Lovenox Inj) 30 mg Q24H SQ 07/21/16 22:00 08/20/16 21:59 07/21/16 21:26 30 MG Acetaminophen (Tylenol Tab) 650 mg Q4H PRN PO 07/21/16 18:45 08/20/16 18:44 Al Hydrox/Mg Hydrox/Simethicone (Maalox Max Susp) 15 ml Q4H PRN PO 07/21/16 18:45 08/20/16 18:44 Magnesium Hydroxide (Milk Of Magnesia Susp) 30 ml Q6H PRN PO 07/21/16 18:45 08/20/16 18:44 Ondansetron HCl (Zofran Inj) 4 mg Q6H PRN IV 07/21/16 18:45 08/20/16 18:44 Albuterol/ Ipratropium (Duoneb) 3 ml Q4R INH 07/21/16 20:00 08/20/16 19:59 07/22/16 11:35 3 ML Albuterol Sulfate 2.5 mg 2.5 mg Q6R PRN INH 07/21/16 18:45 08/20/16 18:44 Methylprednisolone Sodium Succinate/ Syringe (Solu-Medrol IV/ Syringe) 1.28 ml @ 1.5 mls/min Q8H IV 07/21/16 20:00 08/20/16 21:59 07/22/16 12:20 1.5 MLS/MIN Lorazepam 1 mg 1 mg Q6 PRN PO 07/21/16 19:45 08/20/16 19:44 07/22/16 12:27 1 MG Piperacillin Sod/ Tazobactam Sod/ Dextrose (Zosyn Iv/D5 100ml) 115 ml @ 28.75 mls/ hr Q12H IV 07/22/16 02:00 07/29/16 01:59 07/22/16 01:32 28.75 MLS/HR Piperacillin Sod/ Tazobactam Sod (Consult) 1 ea UD PRN N/A 07/21/16 20:30 08/20/16 20:29 Vancomycin HCl (Consult) 1 ea UD PRN N/A 07/21/16 20:30 08/20/16 20:29 Allopurinol (Zyloprim Tab) 100 mg BID PO 07/22/16 08:00 08/21/16 07:59 07/22/16 07:57 100 MG Baclofen (Lioresal Tab) 10 mg TID PO 07/22/16 08:00 08/21/16 07:59 07/22/16 08:00 10 MG Carvedilol (Coreg Tab) 25 mg BID PO 07/22/16 08:00 08/21/16 07:59 07/22/16 07:59 25 MG Cholecalciferol (Vitamin D Tab) 4,000 inter.unit DAILY PO 07/22/16 08:00 08/21/16 07:59 07/22/16 07:58 4,000 INTER.UNIT Clonidine HCl (Catapres Tab) 0.3 mg BID PO 07/22/16 08:00 08/21/16 07:59 07/22/16 07:59 0.3 MG Epinephrine (Epipen) 0.3 mg UD PRN IM 07/21/16 22:45 08/20/16 22:44 Ergocalciferol (Vitamin D Cap) 50,000 interunit Fr@0800 PO 07/22/16 08:00 08/21/16 07:59 07/22/16 08:30 50,000 INTERUNIT Salmeterol Xinafoate/ Fluticasone (Advair Diskus 250/50 Inh) 1 puff BID INH 07/22/16 08:00 08/21/16 07:59 07/22/16 08:01 1 PUFF Guaifenesin (Mucinex Contr Rel Tab) 600 mg BID PO 07/22/16 08:00 08/21/16 07:59 07/22/16 07:59 600 MG Hydralazine HCl (Apresoline Tab) 50 mg Q8H PO 07/21/16 22:45 08/20/16 22:44 07/22/16 06:08 50 MG Hydromorphone HCl (Dilaudid Tab) 6 mg BID PO 07/22/16 08:00 08/05/16 07:59 07/22/16 08:58 6 MG Latanoprost (Xalatan Oph Soln) 1 drops HS OPR 07/22/16 21:00 08/21/16 20:59 Methadone HCl (Dolophine Tab) 30 mg TID PO 07/22/16 08:00 08/05/16 07:59 07/22/16 08:58 30 MG Multivitamins (Multivitamin Tab) 1 tab DAILY PO 07/22/16 08:00 08/21/16 07:59 07/22/16 07:58 1 TAB Pantoprazole Sodium (Protonix Tab) 40 mg BID PO 07/22/16 08:00 08/21/16 07:59 07/22/16 07:56 40 MG Prednisone (PredniSONE TAB) 5 mg DAILY PO 07/22/16 08:00 08/21/16 07:59 07/22/16 08:00 5 MG Sucralfate (Carafate Susp) 1 gm ACHS PO 07/22/16 06:30 08/21/16 06:29 07/22/16 11:40 1 GM Tiotropium Scenic (Spiriva Handihaler Inhaler) 1 puff DAILY INH 07/22/16 08:00 08/21/16 07:59 07/22/16 08:49 1 PUFF Zolpidem Tartrate (Ambien Tab) 10 mg HS PO 07/22/16 21:00 08/21/16 20:59 Ferrous Sulfate (Feosol Tab) 325 mg DAILY PO 07/22/16 08:00 08/21/16 07:59 07/22/16 08:00 325 MG Polyethylene (Miralax Powder Packet) 17 gm BID PRN PO 07/21/16 22:45 08/20/16 22:44 Polyethylene 17 gm 17 gm DAILY PO 07/22/16 08:00 08/21/16 07:59 07/22/16 07:57 17 GM Sodium Chloride (1/2 Nss 1000ml) 1,000 ml @ 70 mls/hr [id number] IV 07/21/16 22:45 07/23/16 03:19 07/22/16 12:21 70 MLS/HR Dornase Dustin 2.5 ml 2.5 ml BIDR INH 07/22/16 20:00 08/21/16 19:59 Vancomycin HCl/ Sodium Chloride (Vancomycin Inj/ Nss 250ml) 262 ml @ 125 mls/hr DAILY@1100 IV 07/22/16 11:30 07/29/16 11:29 07/22/16 12:20 125 MLS/HR Laboratory Data Labs: Last 24 Hours Test 07/21/16 19:10 07/22/16 05:20 White Blood Count 16.35 K/uL 16.25 K/uL Red Blood Count 4.06 M/uL 3.90 M/uL Hemoglobin 12.4 g/dL 11.6 g/dL Hematocrit 38.9 % 36.1 % Mean Corpuscular Volume 95.8 fL 92.6 fL Mean Corpuscular Hemoglobin 30.5 pg 29.7 pg Mean Corpuscular Hemoglobin Concent 31.9 g/dl 32.1 g/dl Platelet Count 250 K/uL 225 K/uL Mean Platelet Volume 12.2 fL 11.8 fL Neutrophils (%) (Auto) 75.9 % 90.9 % Lymphocytes (%) (Auto) 11.0 % 6.6 % Monocytes (%) (Auto) 10.2 % 1.1 % Eosinophils (%) (Auto) 1.2 % 0.0 % Basophils (%) (Auto) 0.2 % 0.2 % Neutrophils # (Auto) 12.41 K/uL 14.77 K/uL Lymphocytes # (Auto) 1.80 K/uL 1.08 K/uL Monocytes # (Auto) 1.66 K/uL 0.18 K/uL Eosinophils # (Auto) 0.20 K/uL 0.00 K/uL Basophils # (Auto) 0.04 K/uL 0.03 K/uL RDW Standard Deviation 54.0 fL 51.9 fL RDW Coefficient of Variation 15.5 % 15.3 % Immature Granulocyte % (Auto) 1.5 % 1.2 % Immature Granulocyte # (Auto) 0.24 K/uL 0.19 K/uL Prothrombin Time 10.8 SECONDS Prothromb Time International Ratio 1.0 Sodium Level 139 mmol/L 136 mmol/L Potassium Level 3.5 mmol/L 3.7 mmol/L Chloride Level 94 mmol/L 93 mmol/L Carbon Dioxide Level 38 mmol/L 35 mmol/L Anion Gap 7.0 mmol/L 8.0 mmol/L Blood Urea Nitrogen 39 mg/dl 37 mg/dl Creatinine 1.90 mg/dl 1.70 mg/dl Est Creatinine Clear Calc Drug Dose 15.7 ml/min 17.6 ml/min Estimated GFR () 30.9 35.3 Estimated GFR (Non- 26.6 30.5 BUN/Creatinine Ratio 20.4 21.6 Random Glucose 105 mg/dl 165 mg/dl Calcium Level 9.4 mg/dl 8.8 mg/dl Chemistry Specimen Hemolysis Random Vancomycin Level 22.1 mcg/ml Assessment and Plan A 70 yo female comes with: 1. Possible/Suspected) gram-negative and/or MRSA pneumonia, COPD exacebation with mucus plague cont IV Zosyn and Vancomycin, cont GMF consulted pulm, bronchoscopy on monday am 2. Chronic kidney disease. holding off on any diuretics giving her gentle IV fluids. 3. Venous insufficiency. compression stockings 4. Severe refractory osteoporosis, continue her vitamin D. She sees endocrinology, I believe she is on Prolia as an outpatient. 5. Hyperparathyroidism. Continue vitamin D supplementation. 6. Chronic obstructive pulmonary disease. Continue inhalers, see above otherwise. 7. Weakness and deconditioning. Physical therapy and occupational therapy evaluation and treat. 8. Chronic diastolic congestive heart failure. Follow generally, she has not had very many congestive heart failure exacerbations. 9. Deep venous thrombosis prophylaxis, Lovenox. 10. Chronic pain, continue her home medications. 11. Chronic constipation, MiraLax 17 grams daily 12. Hypertension, continue her home medications.
[2016-07-22] MEDS: DORNASE ALFA (2500U) 2.5MG/2.5ML INH SCH (19:46)
[2016-07-22] MEDS: ENOXAPARIN 30 MG/0.3 ML SYR SQ SCH (20:33)
[2016-07-22] MEDS: LATANOPROST 0.005% OP SOLN 2.5 ML BTL OPR SCH (20:36)
[2016-07-22] MEDS: ZOLPIDEM TARTRATE 10 MG TAB PO SCH (23:25)
[2016-07-23] VITALS (16 sets, daily range): BP systolic 155–194; BP diastolic 79–111; PULSE 62–80; TEMP 36.5–37.2; O2SAT 90–96
[2016-07-23 01:40] LABS: INFLUENZA A PCR Neg for Influ A (NEG); INFLUENZA B PCR Neg for Influ B (NEG)
[2016-07-23] MEDS: PIPERACILL/TAZOBAC IV 3.375 GM in DEXTROSE 5% 100ML IV SCH ×2 (01:47→14:39)
[2016-07-23] MEDS: ALBUT/IPRATROP 3MG/0.5MG NEB 3 ML VIAL INH SCH ×6 (03:56→23:10)
[2016-07-23] MEDS: LORAZEPAM 1 MG TAB PO PRN ×3 (04:27→20:46)
[2016-07-23] MEDS: METHYLPREDNISOLONE IV 80 MG in SYRINGE 0 ML IV SCH ×2 (04:28→12:13)
[2016-07-23] MEDS: SUCRALFATE 1 GM/10 ML UDC PO SCH ×4 (06:23→20:52)
[2016-07-23] MEDS: DORNASE ALFA (2500U) 2.5MG/2.5ML INH SCH ×2 (07:56→19:11)
[2016-07-23] MEDS: FLUTICASONE/SALMETEROL 250/50 (ADVAIR) 14 PUFF/1 INHALER INH SCH ×2 (09:04→20:51)
[2016-07-23] MEDS: TIOTROPIUM BROMIDE 5 PUFF/90 MCG INH INH SCH (09:04)
[2016-07-23] MEDS: HYDROmorphone HCL 2 MG TAB PO SCH ×2 (09:05→20:48)
[2016-07-23] MEDS: METHADONE HCL 10 MG TAB PO SCH ×3 (09:05→20:47)
[2016-07-23] MEDS: BACLOFEN 10 MG TAB PO SCH ×3 (09:13→20:49)
[2016-07-23] MEDS: PANTOprazole SOD 40 MG TAB PO SCH ×2 (09:14→20:51)
[2016-07-23] MEDS: MULTIVITAMIN TAB PO SCH (09:14)
[2016-07-23] MEDS: CHOLECALCIFEROL 1000 INTER.UNIT TAB PO SCH (09:14)
[2016-07-23] MEDS: POLYETHYLENE (MIRALAX) 17 GM PACK PO SCH (09:15)
[2016-07-23] MEDS: ALLOPURINOL 100 MG TAB PO SCH ×2 (09:15→20:49)
[2016-07-23] MEDS: FERROUS SULFATE 325 MG TAB PO SCH (09:15)
[2016-07-23] MEDS: GUAIFENESIN 600 MG TABCR PO SCH ×2 (09:15→20:49)
[2016-07-23] MEDS: CLONIDINE HCL 0.3 MG TAB PO SCH ×2 (09:15→20:50)
[2016-07-23] MEDS: CARVEDILOL 25 MG TAB PO SCH ×2 (09:15→20:50)
[2016-07-23] MEDS: VANCOMYCIN INJ 600 MG in SODIUM CHLORIDE 0.9% 250ML 250 ML IV SCH (10:49)
[2016-07-23] MEDS ORDERED: NURSING VERBAL MED ORDER ONE ×2 (12:45→17:00)
[2016-07-23] MEDS ORDERED: HydrALAZINE HCL 20 MG/ML VIAL ONE (12:51)
--- NOTE | 2016-07-23 13:55 | PULMONARY PROGRESS NOTE ---
DATE: 07/23/2016 TIME: 1:30 p.m. SUBJECTIVE: The patient feels about the same. She still feels congested in her chest. She has not been able to expectorate any sputum. She denies shortness of breath. Her appetite is good. She states when she is on higher dose steroids she is very hungry. OBJECTIVE: GENERAL: The patient appeared comfortable. VITAL SIGNS: Temperature was 36.5. She told me she had one significant fever elevation since admission, but I could not find a record of that. HEENT: Pupils were reactive. Nares were clear. Mouth exam had a lot of food particles and was otherwise difficult to assess. She is just having lunch at present. NECK: Palpation in the neck reveals no lymph nodes. CHEST: Shows a severe kyphosis. HEART: Rate was 70 beats per minute. Blood pressure is elevated at 194/97. Blood pressure earlier this morning was also elevated at 182/111. LUNGS: Auscultation revealed diffuse rhonchi bilaterally posteriorly. Saturation was 96% on 3 liters. ABDOMEN: Somewhat obese. Bowel sounds were present. There was no tenderness to palpation or masses. EXTREMITIES: Showed no cyanosis, clubbing or edema. Her extremities are slender in relation to her trunk. She did not have any lab studies done today. IMPRESSION: 1. Bronchiectasis. 2. Chronic obstructive pulmonary disease. 3. Restrictive lung disease based upon review of pulmonary functions. 4. 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 COMMENTS AND RECOMMENDATIONS: The patient refused bronchoscopy yesterday. She wanted to try it conservatively. She has a flutter valve which was brought in to her, but she states no one had asked her to use it since the initial time. It was in her room but not anywhere close to her bed. We are going to ask that the flutter valve be used 4 times a day. We will also try the vibration vest. She is on vancomycin. She is receiving Dornase twice a day. She is getting Advair twice a day. She is getting methadone in moderate doses. She is getting Tiotropium. She is also on Zosyn. She is getting DuoNeb every 4 hours and she is on high doses of methylprednisolone. In light of the fact she is not complaining of shortness of breath, I would decrease the methylprednisolone dose from 80 mg IV q. 8 hours to 40 mg.
--- NOTE | 2016-07-23 14:26 | Progress Note ---
Subjective Subjective Date of Service: Jul 23, 2016. Pt evaluation today including: conversation w/ patient, physical exam, chart review, review of studies, review of inpatient medication list Problem List Medical Problems: (1) Bilateral pneumonia Status: Acute (2) CHF (congestive heart failure) Status: Acute (3) Chronic Kidney Disease, Stage Iii (Moderate) Status: Chronic (4) COPD exacerbation Status: Acute (5) Crystal arthritis Status: Chronic (6) Duodenal bulb ulcer Status: Chronic (7) Failure of outpatient treatment Status: Acute (8) Failure of outpatient treatment Status: Acute (9) Gout Status: Chronic (10) Hyperlipidemia Nec/Nos Status: Chronic (11) Hypertension Status: Chronic (12) Hypoxemia Status: Acute (13) Hypoxia Status: Acute (14) Hypoxia Status: Acute (15) Hypoxia Status: Acute (16) Lumbar compression fracture Status: Chronic (17) Opiate use Status: Chronic (18) Osteoporosis Status: Chronic (19) Peripheral edema Status: Acute (20) Pneumonia Status: Acute (21) Pneumonia involving right lung Status: Acute (22) Respiratory acidosis Status: Acute (23) Respiratory distress Status: Acute (24) Right renal artery stenosis Status: Chronic (25) Secondary hyperparathyroidism Status: Chronic (26) UTI (urinary tract infection) Status: Acute Review of Systems Constitutional: No fever Eyes: No worsening of vision ENT: No hearing loss Respiratory: + dyspnea on exertion, No cough Cardiac: No chest pain Abdomen: No pain Female : No dysuria Neurologic: No memory loss Psychiatric: No depression symptoms Physical Exam Vital Signs Vital Signs Past 24 Hours: Date Time Temp Pulse Resp B/P Pulse Ox O2 Delivery O2 Flow Rate FiO2 07/23/16 12:22 70 194/97 96 Nasal Cannula 3.0 07/23/16 11:09 66 16 95 Nasal Cannula 3.0 07/23/16 09:00 80 20 162/86 07/23/16 09:00 Nasal Cannula 3.0 07/23/16 08:04 36.5 62 20 182/111 93 Nasal Cannula 3.0 184/107 07/23/16 07:56 62 16 95 Nasal Cannula 3.0 07/23/16 06:45 165/92 07/23/16 02:01 162/88 07/23/16 01:00 Nasal Cannula 3.0 07/22/16 23:55 37.2 66 18 183/98 90 Nasal Cannula 3.0 07/22/16 19:46 69 16 95 Nasal Cannula 3.0 07/22/16 16:00 93 Nasal Cannula 3.0 07/22/16 15:12 66 16 93 Nasal Cannula 3.0 07/22/16 15:02 36.8 65 20 169/84 91 3.0 Physical Exam: General Appearance: WD/WN, no apparent distress Eyes: bilateral eyes normal inspection ENT: hearing grossly normal Neck: supple Respiratory/Chest: chest non-tender, + wheezing (improving) Cardiovascular: regular rate, rhythm, no murmur Abdomen: normal bowel sounds, soft Extremities: normal inspection, no pedal edema Neurologic/Psychiatric: no motor/sensory deficits, normal mood/affect Skin: normal color, warm/dry Medications Medications: Current Inpatient Medications Medications (Trade) Dose Ordered Sig/Estephania Route Start Time Stop Time Status Last Admin Dose Admin Enoxaparin Sodium (Lovenox Inj) 30 mg Q24H SQ 07/21/16 22:00 08/20/16 21:59 07/22/16 20:33 30 MG Acetaminophen (Tylenol Tab) 650 mg Q4H PRN PO 07/21/16 18:45 08/20/16 18:44 07/23/16 12:36 650 MG Al Hydrox/Mg Hydrox/Simethicone (Maalox Max Susp) 15 ml Q4H PRN PO 07/21/16 18:45 08/20/16 18:44 Magnesium Hydroxide (Milk Of Magnesia Susp) 30 ml Q6H PRN PO 07/21/16 18:45 08/20/16 18:44 Ondansetron HCl (Zofran Inj) 4 mg Q6H PRN IV 07/21/16 18:45 08/20/16 18:44 Albuterol/ Ipratropium (Duoneb) 3 ml Q4R INH 07/21/16 20:00 08/20/16 19:59 07/23/16 11:09 3 ML Albuterol Sulfate (Ventolin 0.083% 2.5MG/3ML Neb) 2.5 mg Q6R PRN INH 07/21/16 18:45 08/20/16 18:44 Lorazepam 1 mg 1 mg Q6 PRN PO 07/21/16 19:45 08/20/16 19:44 07/23/16 12:31 1 MG Piperacillin Sod/ Tazobactam Sod/ Dextrose (Zosyn Iv/D5 100ml) 115 ml @ 28.75 mls/ hr Q12H IV 07/22/16 02:00 07/29/16 01:59 07/23/16 01:47 28.75 MLS/HR Piperacillin Sod/ Tazobactam Sod (Consult) 1 ea UD PRN N/A 07/21/16 20:30 08/20/16 20:29 Vancomycin HCl (Consult) 1 ea UD PRN N/A 07/21/16 20:30 08/20/16 20:29 Allopurinol (Zyloprim Tab) 100 mg BID PO 07/22/16 08:00 08/21/16 07:59 07/23/16 09:15 100 MG Baclofen (Lioresal Tab) 10 mg TID PO 07/22/16 08:00 08/21/16 07:59 07/23/16 09:13 10 MG Carvedilol (Coreg Tab) 25 mg BID PO 07/22/16 08:00 08/21/16 07:59 07/23/16 09:15 25 MG Cholecalciferol (Vitamin D Tab) 4,000 inter.unit DAILY PO 07/22/16 08:00 08/21/16 07:59 07/23/16 09:14 4,000 INTER.UNIT Clonidine HCl (Catapres Tab) 0.3 mg BID PO 07/22/16 08:00 08/21/16 07:59 07/23/16 09:15 0.3 MG Epinephrine (Epipen) 0.3 mg UD PRN IM 07/21/16 22:45 08/20/16 22:44 Ergocalciferol (Vitamin D Cap) 50,000 interunit Fr@0800 PO 07/22/16 08:00 08/21/16 07:59 07/22/16 08:30 50,000 INTERUNIT Salmeterol Xinafoate/ Fluticasone (Advair Diskus 250/50 Inh) 1 puff BID INH 07/22/16 08:00 08/21/16 07:59 07/23/16 09:04 1 PUFF Guaifenesin (Mucinex Contr Rel Tab) 600 mg BID PO 07/22/16 08:00 08/21/16 07:59 2/25/17 09:15 600 MG Hydralazine HCl (Apresoline Tab) 50 mg Q8H PO 07/21/16 22:45 08/20/16 22:44 07/23/16 12:31 50 MG Hydromorphone HCl (Dilaudid Tab) 6 mg BID PO 07/22/16 08:00 08/05/16 07:59 07/23/16 09:05 6 MG Latanoprost (Xalatan Oph Soln) 1 drops HS OPR 07/22/16 21:00 08/21/16 20:59 07/22/16 20:36 1 DROPS Methadone HCl (Dolophine Tab) 30 mg TID PO 07/22/16 08:00 08/05/16 07:59 07/23/16 09:05 30 MG Multivitamins (Multivitamin Tab) 1 tab DAILY PO 07/22/16 08:00 08/21/16 07:59 07/23/16 09:14 1 TAB Pantoprazole Sodium (Protonix Tab) 40 mg BID PO 07/22/16 08:00 08/21/16 07:59 07/23/16 09:14 40 MG Prednisone (PredniSONE TAB) 5 mg DAILY PO 07/22/16 08:00 08/21/16 07:59 07/23/16 09:14 5 MG Sucralfate (Carafate Susp) 1 gm ACHS PO 07/22/16 06:30 08/21/16 06:29 07/23/16 10:48 1 GM Tiotropium [place] (Spiriva Handihaler Inhaler) 1 puff DAILY INH 07/22/16 08:00 08/21/16 07:59 07/23/16 09:04 1 PUFF Zolpidem Tartrate (Ambien Tab) 10 mg HS PO 07/22/16 21:00 08/21/16 20:59 07/22/16 23:25 10 MG Ferrous Sulfate (Feosol Tab) 325 mg DAILY PO 07/22/16 08:00 08/21/16 07:59 07/23/16 09:15 325 MG Polyethylene (Miralax Powder Packet) 17 gm BID PRN PO 07/21/16 22:45 08/20/16 22:44 Polyethylene (Miralax Powder Packet) 17 gm DAILY PO 07/22/16 08:00 08/21/16 07:59 07/23/16 09:15 17 GM Dornase Dustin 2.5 ml 2.5 ml BIDR INH 07/22/16 20:00 08/21/16 19:59 07/23/16 07:56 2.5 ML Vancomycin HCl/ Sodium Chloride (Vancomycin Inj/ Nss 250ml) 262 ml @ 125 mls/hr DAILY@1100 IV 07/22/16 11:30 07/29/16 11:29 07/23/16 10:49 125 MLS/HR Hydralazine HCl 20 mg 20 mg Q6H PRN IV. 07/23/16 13:15 08/22/16 13:14 Methylprednisolone Sodium Succinate/ Syringe (Solu-Medrol IV/ Syringe) 0.64 ml @ 1.5 mls/min Q8H IV 07/23/16 20:00 08/22/16 19:59 Laboratory Data Labs: Last 24 Hours Test 07/22/16 23:30 Influenza Type A (RT-PCR) Neg for Influ A Influenza Type A Antigen Neg for Influ A Influenza Type B Antigen Neg for Influ B Influenza Type B (RT-PCR) Neg for Influ B Assessment and Plan A 70 yo female comes with: 1. Possible/Suspected) gram-negative and/or MRSA pneumonia, COPD exacebation with mucus plague cont IV Zosyn and Vancomycin, cont GMF consulted pulm, bronchoscopy on monday am 2. 1/2 positive bl cx for gr pos cocci, awaiting final cx, pt is already on IV zosyn and vanco, MRSA nasal swab is positive 2. Chronic kidney disease. holding off on any diuretics giving her gentle IV fluids. 3. Venous insufficiency. compression stockings 4. Severe refractory osteoporosis, continue her vitamin D. She sees endocrinology, I believe she is on Prolia as an outpatient. 5. Hyperparathyroidism. Continue vitamin D supplementation. 6. Chronic obstructive pulmonary disease. Continue inhalers, see above otherwise. 7. Weakness and deconditioning. Physical therapy and occupational therapy evaluation and treat. 8. Chronic diastolic congestive heart failure. Follow generally, she has not had very many congestive heart failure exacerbations. 9. Deep venous thrombosis prophylaxis, Lovenox. 10. Chronic pain, continue her home medications. 11. Chronic constipation, MiraLax 17 grams daily 12. Hypertension, continue her home medications.
[2016-07-23] MEDS: HydrALAZINE HCL 20 MG/ML VIAL IV. PRN (17:13)
[2016-07-23] MEDS ORDERED: METHYLPREDNISOLONE IV 40 MG in SYRINGE 0 ML IV SCH (20:00)
[2016-07-23] MEDS: LATANOPROST 0.005% OP SOLN 2.5 ML BTL OPR SCH (20:51)
[2016-07-23] MEDS: ENOXAPARIN 30 MG/0.3 ML SYR SQ SCH (20:53)
[2016-07-23] MEDS: ZOLPIDEM TARTRATE 10 MG TAB PO SCH (23:39)
[2016-07-24] VITALS (13 sets, daily range): BP systolic 146–199; BP diastolic 84–106; PULSE 64–82; TEMP 36.4–36.7; O2SAT 90–94
[2016-07-24] MEDS: HydrALAZINE HCL 20 MG/ML VIAL IV. PRN ×4 (02:03→21:44)
[2016-07-24] MEDS: PIPERACILL/TAZOBAC IV 3.375 GM in DEXTROSE 5% 100ML IV SCH ×3 (02:03→21:55)
[2016-07-24] MEDS: ALBUT/IPRATROP 3MG/0.5MG NEB 3 ML VIAL INH SCH ×6 (03:52→23:28)
[2016-07-24] MEDS ORDERED: METHYLPREDNISOLONE IV 40 MG in SYRINGE 0 ML IV SCH (04:00)
[2016-07-24] MEDS: LORAZEPAM 1 MG TAB PO PRN ×3 (04:05→21:49)
[2016-07-24] MEDS ORDERED: NURSING VERBAL MED ORDER ONE ×2 (04:15→04:30)
[2016-07-24] MEDS ORDERED: DiphenhydrAMINE HCL 50 MG/ML VIAL IV STA (04:20)
[2016-07-24] MEDS ORDERED: LORAZEPAM INJ 1 MG in SYRINGE 0.5 ML IV STA (04:26)
[2016-07-24] MEDS: SUCRALFATE 1 GM/10 ML UDC PO SCH ×4 (06:23→21:53)
[2016-07-24] MEDS: DORNASE ALFA (2500U) 2.5MG/2.5ML INH SCH ×3 (07:45→18:08)
[2016-07-24 08:19] LABS: MEAN CELL VOLUME 91.6 fL (80-100); MEAN CORPUSCULAR HEMOGLOBIN 29.8 pg (25-34); MEAN CORPUSCULAR HGB CONC 32.5 g/dl (32-36); MEAN PLATELET VOLUME 11.7 fL (7.4-10.4); PLATELET COUNT 235 K/uL (130-400); RED BLOOD COUNT 3.93 M/uL (4.2-5.4); WHITE BLOOD COUNT 25.95 K/uL (4.8-10.8)
[2016-07-24] MEDS: HYDROmorphone HCL 2 MG TAB PO SCH ×2 (08:44→21:49)
[2016-07-24] MEDS: METHADONE HCL 10 MG TAB PO SCH ×3 (08:45→21:48)
[2016-07-24] MEDS: FLUTICASONE/SALMETEROL 250/50 (ADVAIR) 14 PUFF/1 INHALER INH SCH ×2 (08:47→21:54)
[2016-07-24] MEDS: GUAIFENESIN 600 MG TABCR PO SCH ×2 (08:48→21:53)
[2016-07-24 08:49] LABS: CREATININE 1.4 mg/dl (0.60-1.20)
[2016-07-24] MEDS: CARVEDILOL 25 MG TAB PO SCH ×2 (08:49→21:51)
[2016-07-24] MEDS: ALLOPURINOL 100 MG TAB PO SCH ×2 (08:49→21:51)
[2016-07-24] MEDS: BACLOFEN 10 MG TAB PO SCH ×3 (08:49→21:52)
[2016-07-24] MEDS: CHOLECALCIFEROL 1000 INTER.UNIT TAB PO SCH (08:49)
[2016-07-24] MEDS: FERROUS SULFATE 325 MG TAB PO SCH (08:49)
[2016-07-24] MEDS: MULTIVITAMIN TAB PO SCH (08:50)
[2016-07-24] MEDS: PANTOprazole SOD 40 MG TAB PO SCH ×2 (08:50→21:51)
[2016-07-24] MEDS: POLYETHYLENE (MIRALAX) 17 GM PACK PO SCH (08:50)
[2016-07-24] MEDS: CLONIDINE HCL 0.3 MG TAB PO SCH ×2 (08:50→21:50)
[2016-07-24] MEDS: TIOTROPIUM BROMIDE 5 PUFF/90 MCG INH INH SCH (08:50)
[2016-07-24] MEDS ORDERED: GUAIFENESIN 600 MG TABCR PO SCH (10:00)
[2016-07-24] MEDS ORDERED: VANCOMYCIN TROUGH ONE (10:30)
--- NOTE | 2016-07-24 10:40 | Progress Note ---
Subjective Subjective Date of Service: Jul 24, 2016. Pt evaluation today including: conversation w/ patient, physical exam, chart review, review of studies, review of inpatient medication list Notes: patient thinks her breathing improved Problem List Medical Problems: (1) Bilateral pneumonia Status: Acute (2) CHF (congestive heart failure) Status: Acute (3) Chronic Kidney Disease, Stage Iii (Moderate) Status: Chronic (4) COPD exacerbation Status: Acute (5) Crystal arthritis Status: Chronic (6) Duodenal bulb ulcer Status: Chronic (7) Failure of outpatient treatment Status: Acute (8) Failure of outpatient treatment Status: Acute (9) Gout Status: Chronic (10) Hyperlipidemia Nec/Nos Status: Chronic (11) Hypertension Status: Chronic (12) Hypoxemia Status: Acute (13) Hypoxia Status: Acute (14) Hypoxia Status: Acute (15) Hypoxia Status: Acute (16) Lumbar compression fracture Status: Chronic (17) Opiate use Status: Chronic (18) Osteoporosis Status: Chronic (19) Peripheral edema Status: Acute (20) Pneumonia Status: Acute (21) Pneumonia involving right lung Status: Acute (22) Respiratory acidosis Status: Acute (23) Respiratory distress Status: Acute (24) Right renal artery stenosis Status: Chronic (25) Secondary hyperparathyroidism Status: Chronic (26) UTI (urinary tract infection) Status: Acute Review of Systems Constitutional: No fever ENT: No hearing loss Respiratory: + cough, + dyspnea on exertion Cardiac: No chest pain Abdomen: No pain Female : No dysuria Neurologic: No memory loss Psychiatric: No depression symptoms Endo: No fatigue Physical Exam Vital Signs Vital Signs Past 24 Hours: Date Time Temp Pulse Resp B/P Pulse Ox O2 Delivery O2 Flow Rate FiO2 07/24/16 09:00 90 Nasal Cannula 3.0 07/24/16 07:51 36.7 77 22 162/106 90 Nasal Cannula 3.0 07/24/16 05:12 153/86 07/24/16 04:10 165/96 07/24/16 02:03 171/97 07/24/16 00:00 Nasal Cannula 3.0 07/23/16 23:57 37.2 78 20 166/83 92 3.0 07/23/16 23:10 76 16 92 Nasal Cannula 3.0 07/23/16 22:37 79 160/82 07/23/16 20:43 79 162/79 07/23/16 19:11 78 16 91 Nasal Cannula 3.0 07/23/16 17:06 76 168/89 07/23/16 16:00 90 Nasal Cannula 3.0 07/23/16 15:21 78 16 92 Nasal Cannula 3.0 07/23/16 14:26 36.8 75 20 155/84 90 Nasal Cannula 3.0 07/23/16 12:22 70 194/97 96 Nasal Cannula 3.0 07/23/16 11:09 66 16 95 Nasal Cannula 3.0 Physical Exam: General Appearance: WD/WN, no apparent distress Eyes: bilateral eyes normal inspection ENT: hearing grossly normal Neck: supple Respiratory/Chest: chest non-tender, + pertinent finding (bronchial breathing at upper airway, lots of mucus present) Cardiovascular: regular rate, rhythm Abdomen: normal bowel sounds Extremities: normal range of motion Neurologic/Psychiatric: alert Skin: normal color Medications Medications: Current Inpatient Medications Medications (Trade) Dose Ordered Sig/Estephania Route Start Time Stop Time Status Last Admin Dose Admin Enoxaparin Sodium (Lovenox Inj) 30 mg Q24H SQ 07/21/16 22:00 08/20/16 21:59 07/23/16 20:53 30 MG Acetaminophen (Tylenol Tab) 650 mg Q4H PRN PO 07/21/16 18:45 08/20/16 18:44 07/23/16 12:36 650 MG Al Hydrox/Mg Hydrox/Simethicone (Maalox Max Susp) 15 ml Q4H PRN PO 07/21/16 18:45 08/20/16 18:44 Magnesium Hydroxide (Milk Of Magnesia Susp) 30 ml Q6H PRN PO 07/21/16 18:45 08/20/16 18:44 07/23/16 17:01 30 ML Ondansetron HCl (Zofran Inj) 4 mg Q6H PRN IV 07/21/16 18:45 08/20/16 18:44 Albuterol/ Ipratropium (Duoneb) 3 ml Q4R INH 07/21/16 20:00 08/20/16 19:59 07/23/16 23:10 3 ML Albuterol Sulfate (Ventolin 0.083% 2.5MG/3ML Neb) 2.5 mg Q6R PRN INH 07/21/16 18:45 08/20/16 18:44 Lorazepam 1 mg 1 mg Q6 PRN PO 07/21/16 19:45 08/20/16 19:44 07/24/16 04:05 1 MG Piperacillin Sod/ Tazobactam Sod/ Dextrose (Zosyn Iv/D5 100ml) 115 ml @ 28.75 mls/ hr Q12H IV 07/22/16 02:00 07/29/16 01:59 07/24/16 02:03 28.75 MLS/HR Piperacillin Sod/ Tazobactam Sod (Consult) 1 ea UD PRN N/A 07/21/16 20:30 08/20/16 20:29 Vancomycin HCl (Consult) 1 ea UD PRN N/A 07/21/16 20:30 08/20/16 20:29 Allopurinol (Zyloprim Tab) 100 mg BID PO 07/22/16 08:00 08/21/16 07:59 07/24/16 08:49 100 MG Baclofen (Lioresal Tab) 10 mg TID PO 07/22/16 08:00 08/21/16 07:59 07/24/16 08:49 10 MG Carvedilol (Coreg Tab) 25 mg BID PO 07/22/16 08:00 08/21/16 07:59 07/24/16 08:49 25 MG Cholecalciferol (Vitamin D Tab) 4,000 inter.unit DAILY PO 07/22/16 08:00 08/21/16 07:59 07/24/16 08:49 4,000 INTER.UNIT Clonidine HCl (Catapres Tab) 0.3 mg BID PO 07/22/16 08:00 08/21/16 07:59 07/24/16 08:50 0.3 MG Epinephrine (Epipen) 0.3 mg UD PRN IM 07/21/16 22:45 08/20/16 22:44 Ergocalciferol (Vitamin D Cap) 50,000 interunit Fr@0800 PO 07/22/16 08:00 08/21/16 07:59 07/22/16 08:30 50,000 INTERUNIT Salmeterol Xinafoate/ Fluticasone (Advair Diskus 250/50 Inh) 1 puff BID INH 07/22/16 08:00 08/21/16 07:59 07/24/16 08:47 1 PUFF Guaifenesin (Mucinex Contr Rel Tab) 600 mg BID PO 07/22/16 08:00 08/21/16 07:59 07/24/16 08:48 600 MG Hydralazine HCl (Apresoline Tab) 50 mg Q8H PO 07/21/16 22:45 08/20/16 22:44 07/23/16 22:37 50 MG Hydromorphone HCl (Dilaudid Tab) 6 mg BID PO 07/22/16 08:00 08/05/16 07:59 07/24/16 08:44 6 MG Latanoprost (Xalatan Oph Soln) 1 drops HS OPR 07/22/16 21:00 08/21/16 20:59 07/23/16 20:51 1 DROPS Methadone HCl (Dolophine Tab) 30 mg TID PO 07/22/16 08:00 08/05/16 07:59 07/24/16 08:45 30 MG Multivitamins (Multivitamin Tab) 1 tab DAILY PO 07/22/16 08:00 08/21/16 07:59 07/24/16 08:50 1 TAB Pantoprazole Sodium (Protonix Tab) 40 mg BID PO 07/22/16 08:00 08/21/16 07:59 07/24/16 08:50 40 MG Prednisone (PredniSONE TAB) 5 mg DAILY PO 07/22/16 08:00 08/21/16 07:59 07/24/16 08:50 5 MG Sucralfate (Carafate Susp) 1 gm ACHS PO 07/22/16 06:30 08/21/16 06:29 07/23/16 20:52 1 GM Tiotropium [place] (Spiriva Handihaler Inhaler) 1 puff DAILY INH 07/22/16 08:00 08/21/16 07:59 07/24/16 08:50 1 PUFF Zolpidem Tartrate (Ambien Tab) 10 mg HS PO 07/22/16 21:00 08/21/16 20:59 07/23/16 23:39 10 MG Ferrous Sulfate (Feosol Tab) 325 mg DAILY PO 07/22/16 08:00 08/21/16 07:59 07/24/16 08:49 325 MG Polyethylene (Miralax Powder Packet) 17 gm BID PRN PO 07/21/16 22:45 08/20/16 22:44 Polyethylene (Miralax Powder Packet) 17 gm DAILY PO 07/22/16 08:00 08/21/16 07:59 07/24/16 08:50 17 GM Dornase Dustin 2.5 ml 2.5 ml BIDR INH 07/22/16 20:00 08/21/16 19:59 07/23/16 19:11 2.5 ML Vancomycin HCl/ Sodium Chloride (Vancomycin Inj/ Nss 250ml) 262 ml @ 125 mls/hr DAILY@1100 IV 07/22/16 11:30 07/29/16 11:29 07/23/16 10:49 125 MLS/HR Hydralazine HCl 20 mg 20 mg Q6H PRN IV. 07/23/16 13:15 08/22/16 13:14 07/24/16 08:48 20 MG Methylprednisolone Sodium Succinate/ Syringe (Solu-Medrol IV/ Syringe) 0.64 ml @ 1.5 mls/min DAILY IV 07/25/16 08:00 08/24/16 07:59 Laboratory Data Labs: Last 24 Hours Test 07/24/16 07:48 07/24/16 10:23 White Blood Count 25.95 K/uL Red Blood Count 3.93 M/uL Hemoglobin 11.7 g/dL Hematocrit 36.0 % Mean Corpuscular Volume 91.6 fL Mean Corpuscular Hemoglobin 29.8 pg Mean Corpuscular Hemoglobin Concent 32.5 g/dl RDW Standard Deviation 51.5 fL RDW Coefficient of Variation 15.5 % Platelet Count 235 K/uL Mean Platelet Volume 11.7 fL Creatinine 1.40 mg/dl Est Creatinine Clear Calc Drug Dose 31.4 ml/min Estimated GFR () 44.6 Estimated GFR (Non- 38.5 Assessment and Plan A 70 yo female comes with: 1. Possible/Suspected) gram-negative and/or MRSA pneumonia, COPD exacebation with mucus plague? improving cont IV Zosyn and Vancomycin, cont GMF added mucinex consulted pulm, patient originally refused bronchoscopy, Dr Ng coming tomorrow to reevaluate the patient weaning off IV steroids 2. 1/2 positive bl cx for gr pos cocci, awaiting final cx, pt is already on IV zosyn and vanco, MRSA nasal swab is positive 2. Chronic kidney disease. holding off on any diuretics giving her gentle IV fluids. 3. Venous insufficiency. compression stockings 4. Severe refractory osteoporosis, continue her vitamin D. She sees endocrinology, I believe she is on Prolia as an outpatient. 5. Hyperparathyroidism. Continue vitamin D supplementation. 6. Chronic obstructive pulmonary disease. Continue inhalers, see above otherwise. 7. Weakness and deconditioning. Physical therapy and occupational therapy evaluation and treat. 8. Chronic diastolic congestive heart failure. Follow generally, she has not had very many congestive heart failure exacerbations. 9. Deep venous thrombosis prophylaxis, Lovenox. 10. Chronic pain, continue her home medications. 11. Chronic constipation, MiraLax 17 grams daily 12. Hypertension, continue her home medications. 13. Insomnia, given Lorazepam, since patient did not get sleep with anything else FULL Code
[2016-07-24] MEDS: VANCOMYCIN INJ 600 MG in SODIUM CHLORIDE 0.9% 250ML 250 ML IV SCH (11:39)
--- NOTE | 2016-07-24 12:17 | Pharmacy Progress Note ---
Pharmacy Antibiotic Prog Note Date of Service: Jul 24, 2016. Subjective: The patient is currently receiving vancomycin 600mg IV every 24 hours and Zosyn 3.375gm IV q 12h. The patient is currently on day # 4/ of vancomycin and Zosyn IV therapy for gram-negative and/or MRSA pneumonia, COPD exacerbation with mucus plug. Pt is scheduled for a bronch on Monday. Objective: Height (Feet): 4 Weight (Kilograms): 61.000 Levels: Item Value Date Time Vancomycin Level Trough 16.1 mcg/ml 07/24/16 1023 Lab Results (24hrs): Laboratory Tests Test 07/24/16 07:48 Creatinine 1.40 mg/dl White Blood Count 25.95 K/uL Micro Results: Blood cx: gm pos cocci in one cx Nasal swab: mrsa Assessment & Plan: Vancomycin: * This drug level is Therapeutic (tr 16.1mcg/ml). * Continue vancomycin 600 mg IV every 24 hours. * Goal trough level estimate: between 15 - 20 mcg/mL. * Will reorder trough in a few days unless abnormal changes in renal fx. Zosyn: * Increase from 3.375gm IV q 12h to q 8h per CrCl greater than 20ml/min today. Pharmacy will continue to follow and will adjust dose/frequency as necessary. Thank you
--- NOTE | 2016-07-24 14:29 | PULMONARY PROGRESS NOTE ---
DATE: 07/24/2016 TIME: 2 p.m. SUBJECTIVE: The patient feels better today. She is less congested. She did not, however expectorate any sputum. She has no chest pain. She has been moving her bowels after giving something to help her do so. OBJECTIVE: GENERAL: The patient appears more comfortable than yesterday. She also seemed more relaxed. VITAL SIGNS: Temperature is 36.7. Maximum temperature in the past 24 hours is 37.2. ENT: Unchanged from yesterday. VITAL SIGNS: Heart rate was 80 beats per minute. Respiratory rate 16 breaths per minute. Blood pressure elevated at 162/106. LUNGS: Lung campuzano reveals mild rales and rhonchi heard mainly in the left lower lung field. This reflects improvement, especially on the right side. ABDOMEN: She has a significant kyphosis as had been noted previously. EXTREMITIES: Showed no cyanosis, clubbing or edema. LABORATORY DATA: White count today is elevated at 25.95. Two days ago the white count was 16.25. It is unknown if this might be related to being on methylprednisolone. There was no differential from today. Today's creatinine is 1.4 and previously was 1.7. IMPRESSION: 1. Bronchiectasis. 2. Chronic obstructive pulmonary disease. 3. Restrictive lung disease. 4. 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 RECOMMENDATIONS AND COMMENTS: The patient is clinically improved. She is not scheduled for bronchoscopy tomorrow. She had refused bronchoscopy [address] Reich is not available. In light of clinical improvement it may or may not need to be done. One blood culture is positive for Gram-positive cocci. The exact identification is unknown. I would continue with your current therapy, otherwise. Dr. Ng will be seeing the patient as of tomorrow.
[2016-07-24] MEDS: LATANOPROST 0.005% OP SOLN 2.5 ML BTL OPR SCH (21:53)
[2016-07-24] MEDS: ENOXAPARIN 30 MG/0.3 ML SYR SQ SCH (22:00)
[2016-07-24] MEDS ORDERED: AMLODIPINE BESYLATE 5 MG TAB PO STA (22:59)
[2016-07-25] VITALS (11 sets, daily range): BP systolic 148–195; BP diastolic 78–104; PULSE 62–71; TEMP 36.5–36.9; O2SAT 90–97
[2016-07-25] MEDS: ZOLPIDEM TARTRATE 10 MG TAB PO SCH ×2 (00:51→23:52)
[2016-07-25] MEDS: ALBUT/IPRATROP 3MG/0.5MG NEB 3 ML VIAL INH SCH ×7 (03:36→23:28)
[2016-07-25] MEDS: HydrALAZINE HCL 20 MG/ML VIAL IV. PRN ×2 (05:54→14:30)
[2016-07-25] MEDS: LORAZEPAM 1 MG TAB PO PRN ×3 (05:55→21:15)
[2016-07-25] MEDS: PIPERACILL/TAZOBAC IV 3.375 GM in DEXTROSE 5% 100ML IV SCH ×3 (06:06→22:37)
[2016-07-25] MEDS: SUCRALFATE 1 GM/10 ML UDC PO SCH ×4 (06:45→21:05)
[2016-07-25] MEDS: DORNASE ALFA (2500U) 2.5MG/2.5ML INH SCH ×3 (07:09→19:39)
--- NOTE | 2016-07-25 07:57 | PROGRESS NOTE ---
DATE: 07/25/2016 HISTORY OF PRESENT ILLNESS: The patient is very comfortable this morning. She is awake reading in her bed. She continues to have intermittent episodes of coughing, but she states this has considerably improved since the time of admission. She denies sputum production. She has been out of bed yesterday and has not had any shortness of breath, nausea, vomiting or diarrhea. According to the nurses' notes, blood pressure have been elevated and received some p.r.n. Norvasc at 11:30 last night. Notes reviewed. MEDICATIONS: Reviewed. PHYSICAL EXAMINATION: VITAL SIGNS: Stable. Her blood pressure remains elevated at 175/104, oxygen saturation 93% on 3 liters. She is afebrile. HEENT: Posterior pharynx is normal. No evidence of thrush. NECK: There is no neck vein distention or HJR. No adenopathy is noted. BACK AND SPINE: Accentuation of kyphotic curve of the thoracic spine is noted with significant thoracic spine kyphosis with restrictive disease and limitations with expansion of the thorax with deep inspiration. SKIN: Normal. HEART: Regular rate and rhythm. Second heart sound accentuated. No murmurs are heard. LUNGS: Reveal some coarse breath sounds at the left base with very mild expiratory wheezing at the left base posterior. No bronchial breath sounds are noted. ABDOMEN: Soft, nontender. EXTREMITIES: She has no cyanosis, clubbing or edema. LABORATORY DATA: White count was 25.9 yesterday with a hematocrit of 36%. PRP is stable with improvement in the CO2 from 38-35, BUN 37, creatinine 1.7 on the 24th and creatinine is down to 1.4 on the 26th. Coagulation profile and influenza A and B serologies and PCRs were negative. One blood culture was positive for gram positive coccus probably contaminant. The other blood culture on the same day was unremarkable. MRSA DNA surveillance screen actually is positive. IMAGING DATA: CT of the chest was noted to show no evidence of pneumonia. IMPRESSION: 1. Bronchiectasis improved. 2. Chronic obstructive pulmonary disease exacerbation. 3. Restricted disorder related to kyphosis. 4. Methicillin-resistant Staphylococcus aureus and nasal swab. 5. Hypertension. RECOMMENDATIONS: 1. Rec.taper the Solu-Medrol down to [address] her on 20 mg of prednisone daily and taper that down over about 4-5 days. 2. Continue on the Zosyn for now. 3. Considering decreasing the clonidine for blood pressure control. 4. Continue on the Advair 250/50 one inhalation b.i.d. the Mucinex, Spiriva 1 inhalation daily and DuoNeb as needed. That will help to enhance mucociliary clearance. If she is going to be on DuoNeb for a long time, the Spiriva could be discontinued. Overall except for elevated blood pressure from pulmonary standpoint, she is stable. MTDD
[2016-07-25] MEDS ORDERED: METHYLPREDNISOLONE IV 40 MG in SYRINGE 0 ML IV SCH (08:00)
[2016-07-25] MEDS: FLUTICASONE/SALMETEROL 250/50 (ADVAIR) 14 PUFF/1 INHALER INH SCH ×2 (08:44→20:56)
[2016-07-25] MEDS: TIOTROPIUM BROMIDE 5 PUFF/90 MCG INH INH SCH (08:45)
[2016-07-25] MEDS: CARVEDILOL 25 MG TAB PO SCH ×2 (08:46→21:01)
[2016-07-25] MEDS: FERROUS SULFATE 325 MG TAB PO SCH (08:46)
[2016-07-25] MEDS: BACLOFEN 10 MG TAB PO SCH ×3 (08:46→21:04)
[2016-07-25] MEDS: ALLOPURINOL 100 MG TAB PO SCH ×2 (08:47→21:04)
[2016-07-25] MEDS: CHOLECALCIFEROL 1000 INTER.UNIT TAB PO SCH (08:47)
[2016-07-25] MEDS: CLONIDINE HCL 0.3 MG TAB PO SCH ×2 (08:47→22:01)
[2016-07-25] MEDS: PANTOprazole SOD 40 MG TAB PO SCH ×2 (08:47→21:02)
[2016-07-25] MEDS: POLYETHYLENE (MIRALAX) 17 GM PACK PO SCH (08:47)
[2016-07-25] MEDS: MULTIVITAMIN TAB PO SCH (08:47)
[2016-07-25] MEDS: METHADONE HCL 10 MG TAB PO SCH ×3 (08:52→21:17)
[2016-07-25] MEDS: HYDROmorphone HCL 2 MG TAB PO SCH ×2 (08:52→21:00)
[2016-07-25] MEDS: VANCOMYCIN INJ 600 MG in SODIUM CHLORIDE 0.9% 250ML 250 ML IV SCH (10:47)
[2016-07-25 10:49] LABS: BUN/CREATININE RATIO 21.8 (10-20); CREATININE 1.6 mg/dl (0.60-1.20); POTASSIUM 3.4 mmol/L (3.5-5.1)
[2016-07-25] MEDS: GUAIFENESIN 600 MG TABCR PO SCH ×2 (12:29→21:01)
--- NOTE | 2016-07-25 14:10 | Family Medicine Progress Note ---
Progress Note Date of Service Jul 25, 2016. Subjective Pt evaluation today including: conversation w/ patient, conversation w/ family , physical exam, chart review, lab review Pain: denies pain PO Intake: good Voiding: no voiding problems 70 y/o F admitted for acute on chronic respiratory insufficiency/cough. Over the last 6 months the patient has been treated multiple times for pneumonia and continued cough. admitted currently for treatment failing pneumonia. doing better. still feels congested in the chest and has pain and cough on deep breathing but is improved since admission. concerned about elevated Blood pressure though she remains asymptomatic. denies N/V, blurriness of vision and slurring of speech, weakness , numbness or tinging. has occasional headaches Constitutional: No chills, No fever Eyes: No worsening of vision ENT: No hearing loss Respiratory: + cough, No shortness of breath, No wheezing Cardiovascular: No chest pain Abdomen: No diarrhea, No nausea, No pain, No vomiting Musculoskeletal: No joint pain Female : No dysuria Neurologic: No memory loss Medications Current Inpatient Medications Medications (Trade) Dose Ordered Sig/Estephania Route Start Time Stop Time Status Last Admin Dose Admin Enoxaparin Sodium (Lovenox Inj) 30 mg Q24H SQ 07/21/16 22:00 08/20/16 21:59 07/24/16 22:00 30 MG Acetaminophen (Tylenol Tab) 650 mg Q4H PRN PO 07/21/16 18:45 08/20/16 18:44 07/23/16 12:36 650 MG Al Hydrox/Mg Hydrox/Simethicone (Maalox Max Susp) 15 ml Q4H PRN PO 07/21/16 18:45 08/20/16 18:44 Magnesium Hydroxide (Milk Of Magnesia Susp) 30 ml Q6H PRN PO 07/21/16 18:45 08/20/16 18:44 07/23/16 17:01 30 ML Ondansetron HCl (Zofran Inj) 4 mg Q6H PRN IV 07/21/16 18:45 08/20/16 18:44 Albuterol/ Ipratropium (Duoneb) 3 ml Q4R INH 07/21/16 20:00 08/20/16 19:59 07/25/16 07:09 3 ML Albuterol Sulfate (Ventolin 0.083% 2.5MG/3ML Neb) 2.5 mg Q6R PRN INH 07/21/16 18:45 08/20/16 18:44 Lorazepam (Ativan Tab) 1 mg Q6 PRN PO 07/21/16 19:45 08/20/16 19:44 07/25/16 05:55 1 MG Piperacillin Sod/ Tazobactam Sod (Consult) 1 ea UD PRN N/A 07/21/16 20:30 08/20/16 20:29 Vancomycin HCl (Consult) 1 ea UD PRN N/A 07/21/16 20:30 08/20/16 20:29 Allopurinol (Zyloprim Tab) 100 mg BID PO 07/22/16 08:00 08/21/16 07:59 07/25/16 08:47 100 MG Baclofen (Lioresal Tab) 10 mg TID PO 07/22/16 08:00 08/21/16 07:59 07/25/16 08:46 10 MG Carvedilol (Coreg Tab) 25 mg BID PO 07/22/16 08:00 08/21/16 07:59 07/25/16 08:46 25 MG Cholecalciferol (Vitamin D Tab) 4,000 inter.unit DAILY PO 07/22/16 08:00 08/21/16 07:59 07/25/16 08:47 4,000 INTER.UNIT Clonidine HCl (Catapres Tab) 0.3 mg BID PO 07/22/16 08:00 08/21/16 07:59 07/25/16 08:47 0.3 MG Epinephrine (Epipen) 0.3 mg UD PRN IM 07/21/16 22:45 08/20/16 22:44 Ergocalciferol (Vitamin D Cap) 50,000 interunit Fr@0800 PO 07/22/16 08:00 08/21/16 07:59 07/22/16 08:30 50,000 INTERUNIT Salmeterol Xinafoate/ Fluticasone (Advair Diskus 250/50 Inh) 1 puff BID INH 07/22/16 08:00 08/21/16 07:59 07/25/16 08:44 1 PUFF Guaifenesin (Mucinex Contr Rel Tab) 600 mg BID PO 07/22/16 08:00 08/21/16 07:59 07/25/16 12:29 600 MG Hydralazine HCl (Apresoline Tab) 50 mg Q8H PO 07/21/16 22:45 08/20/16 22:44 07/25/16 06:45 50 MG Hydromorphone HCl (Dilaudid Tab) 6 mg BID PO 07/22/16 08:00 08/05/16 07:59 07/25/16 08:52 6 MG Latanoprost (Xalatan Oph Soln) 1 drops HS OPR 07/22/16 21:00 08/21/16 20:59 07/24/16 21:53 1 DROPS Methadone HCl (Dolophine Tab) 30 mg TID PO 07/22/16 08:00 08/05/16 07:59 07/25/16 08:52 30 MG Multivitamins (Multivitamin Tab) 1 tab DAILY PO 07/22/16 08:00 08/21/16 07:59 07/25/16 08:47 1 TAB Pantoprazole Sodium (Protonix Tab) 40 mg BID PO 07/22/16 08:00 08/21/16 07:59 07/25/16 08:47 40 MG Prednisone (PredniSONE TAB) 5 mg DAILY PO 07/22/16 08:00 08/21/16 07:59 07/25/16 08:47 5 MG Sucralfate (Carafate Susp) 1 gm ACHS PO 07/22/16 06:30 08/21/16 06:29 07/25/16 10:48 1 GM Tiotropium [place] (Spiriva Handihaler Inhaler) 1 puff DAILY INH 07/22/16 08:00 08/21/16 07:59 07/25/16 08:45 1 PUFF Zolpidem Tartrate (Ambien Tab) 10 mg HS PO 07/22/16 21:00 08/21/16 20:59 07/25/16 00:51 10 MG Ferrous Sulfate (Feosol Tab) 325 mg DAILY PO 07/22/16 08:00 08/21/16 07:59 07/25/16 08:46 325 MG Polyethylene (Miralax Powder Packet) 17 gm BID PRN PO 07/21/16 22:45 08/20/16 22:44 Polyethylene (Miralax Powder Packet) 17 gm DAILY PO 07/22/16 08:00 08/21/16 07:59 07/25/16 08:47 17 GM Dornase Dustin 2.5 ml 2.5 ml BIDR INH 07/22/16 20:00 08/21/16 19:59 07/25/16 07:09 2.5 ML Vancomycin HCl/ Sodium Chloride (Vancomycin Inj/ Nss 250ml) 262 ml @ 125 mls/hr DAILY@1100 IV 07/22/16 11:30 07/29/16 11:29 07/25/16 10:47 125 MLS/HR Hydralazine HCl 20 mg 20 mg Q6H PRN IV. 07/23/16 13:15 08/22/16 13:14 07/25/16 05:54 20 MG Methylprednisolone Sodium Succinate 40 mg/Syringe 0.64 ml @ 1.5 mls/min DAILY IV 07/25/16 08:00 08/24/16 07:59 07/25/16 08:48 1.5 MLS/MIN Piperacillin Sod/ Tazobactam Sod/ Dextrose (Zosyn Iv/D5 100ml) 115 ml @ 28.75 mls/ hr Q8@0600,1400,2200 IV 07/24/16 14:00 07/28/16 21:00 07/25/16 06:06 28.75 MLS/HR Objective Vital Signs Date Time Temp Pulse Resp B/P Pulse Ox O2 Delivery O2 Flow Rate FiO2 07/25/16 10:00 70 20 148/86 07/25/16 09:30 Nasal Cannula 3.0 07/25/16 07:35 36.6 62 18 186/96 93 3.0 07/25/16 07:09 63 16 93 Nasal Cannula 3.0 07/25/16 06:44 63 175/78 07/25/16 05:58 64 195/99 07/25/16 00:18 36.5 65 18 175/104 93 Nasal Cannula 3.0 07/24/16 23:59 Nasal Cannula 3.0 07/24/16 22:43 68 184/102 07/24/16 21:40 64 199/99 94 Nasal Cannula 3.0 07/24/16 16:00 90 Nasal Cannula 3.0 07/24/16 15:29 36.4 77 22 167/95 90 Nasal Cannula 3.0 07/24/16 14:48 72 16 93 Nasal Cannula 3.0 07/24/16 14:39 69 20 184/97 Physical Exam General Appearance: WD/WN, no apparent distress Eyes: normal inspection ENT: normal ENT inspection, hearing grossly normal, TMs normal Neck: supple Respiratory/Chest: chest non-tender, + rhonchi (left lower base) Cardiovascular: regular rate, rhythm, no edema Abdomen: normal bowel sounds, non tender Extremities: non-tender Neurologic/Psychiatric: alert, normal mood/affect, oriented x 3 Skin: normal color Laboratory Results 07/25/16 10:08 Test 07/25/16 10:08 Anion Gap 10.0 mmol/L (3-11) Est Creatinine Clear Calc Drug Dose 27.5 ml/min Estimated GFR () 38.0 Estimated GFR (Non- 32.8 BUN/Creatinine Ratio 21.8 (10-20) Calcium Level 9.0 mg/dl (8.5-10.1) Assessment and Plan Possible pneumonia/ Bronchiectasis - MRSA swab positive - Continue Zosyn day 5 and vancomycin day 5 - Continue guaifenesin 600 mg BID, Dornase - Pulm consulted- appreciate input - Switched to PO Prednisone 20 mg - wean over 4-5 days - Continue on the Advair 250/50 one inh BID, Spiriva 1 inh daily and DuoNeb as needed HTN: - Home Meds hydralazine 50 mgh q8h, clonidine 0.3 mg BID, Coreg 25 mg BID - Will add Norvasc 5 mg QAM - hydralazine 20 mg IV q6h PRN - Monitor BP Chronic kidney disease. - Creatinine at 1.6 from 1.9 on admission holding off on any diuretics giving her gentle IV fluids. Venous insufficiency. - compression stockings Severe refractory osteoporosis: - Continue vitamin D. - Prolia Hyperparathyroidism: - Continue vitamin D supplementation. Chronic pain - continue Dilaudid , Baclofen, methadone Chronic constipation - MiraLAX 17 grams daily Deconditioning: - PT/OT FULL Code DVT Prophylaxis: Lovenox Resident Physician Supervision Note: I was present with Dr. Fischer during the history and exam. I discussed the case with the resident and agree with the findings and plan as documented in the note. Any exceptions or clarifications are listed here: Upon my examination, the patient was seated in a bedside chair. Her chief complaint was continued chest congestion which she has difficulty coughing up. Her shortness of breath seems to be improved compared to her admission, both upon her opinion and in reviewing the chart. She as had several episodes of elevated blood pressure; amlodipine 5 mg was added overnight and agree with continuing at this morning and daily in the future. Her blood pressure sees a better controlled when she is at the [facility]; I reviewed her prior recent admission here and she was also noted to be hypertensive throughout her hospitalization. Documented By: Dashawn Huynh
[2016-07-25] MEDS: LATANOPROST 0.005% OP SOLN 2.5 ML BTL OPR SCH (21:05)
[2016-07-25] MEDS: ENOXAPARIN 30 MG/0.3 ML SYR SQ SCH (22:39)
[2016-07-26] VITALS (12 sets, daily range): BP systolic 134–192; BP diastolic 79–115; PULSE 63–79; TEMP 36.7–36.9; O2SAT 92–97
[2016-07-26] MEDS: HydrALAZINE HCL 20 MG/ML VIAL IV. PRN (03:05)
[2016-07-26] MEDS: ALBUT/IPRATROP 3MG/0.5MG NEB 3 ML VIAL INH SCH ×6 (04:00→23:26)
[2016-07-26] MEDS: PIPERACILL/TAZOBAC IV 3.375 GM in DEXTROSE 5% 100ML IV SCH ×3 (06:08→21:44)
[2016-07-26] MEDS: SUCRALFATE 1 GM/10 ML UDC PO SCH ×4 (06:14→21:37)
[2016-07-26] MEDS: LORAZEPAM 1 MG TAB PO PRN ×2 (06:19→21:53)
[2016-07-26] MEDS ORDERED: AMLODIPINE BESYLATE 5 MG TAB PO ONE (06:30)
[2016-07-26 06:51] LABS: HEMATOCRIT 37.5 % (37-47); MEAN CORPUSCULAR HEMOGLOBIN 30.1 pg (25-34); MEAN CORPUSCULAR HGB CONC 33.1 g/dl (32-36); MEAN PLATELET VOLUME 11.7 fL (7.4-10.4); PLATELET COUNT 243 K/uL (130-400); RED BLOOD COUNT 4.12 M/uL (4.2-5.4); WHITE BLOOD COUNT 19.59 K/uL (4.8-10.8)
[2016-07-26] MEDS: DORNASE ALFA (2500U) 2.5MG/2.5ML INH SCH ×2 (06:54→19:27)
[2016-07-26 07:25] LABS: CALCIUM 8.9 mg/dl (8.5-10.1); CREATININE 1.4 mg/dl (0.60-1.20); MAGNESIUM 2.7 mg/dl (1.8-2.4); POTASSIUM 3.4 mmol/L (3.5-5.1)
[2016-07-26] MEDS: BACLOFEN 10 MG TAB PO SCH ×3 (07:56→21:34)
[2016-07-26] MEDS: ALLOPURINOL 100 MG TAB PO SCH ×2 (07:56→21:37)
[2016-07-26] MEDS: METHADONE HCL 10 MG TAB PO SCH ×3 (07:56→21:43)
[2016-07-26] MEDS: HYDROmorphone HCL 2 MG TAB PO SCH ×2 (07:56→21:43)
[2016-07-26] MEDS: MULTIVITAMIN TAB PO SCH (07:57)
[2016-07-26] MEDS: PANTOprazole SOD 40 MG TAB PO SCH ×2 (07:57→21:44)
[2016-07-26] MEDS: CHOLECALCIFEROL 1000 INTER.UNIT TAB PO SCH (07:57)
[2016-07-26] MEDS: GUAIFENESIN 600 MG TABCR PO SCH ×2 (07:57→21:34)
[2016-07-26] MEDS: CARVEDILOL 25 MG TAB PO SCH ×2 (07:57→21:35)
[2016-07-26] MEDS: CLONIDINE HCL 0.3 MG TAB PO SCH ×2 (07:57→21:36)
[2016-07-26] MEDS: POLYETHYLENE (MIRALAX) 17 GM PACK PO SCH (07:58)
[2016-07-26] MEDS: FLUTICASONE/SALMETEROL 250/50 (ADVAIR) 14 PUFF/1 INHALER INH SCH ×2 (07:58→21:28)
[2016-07-26] MEDS: FERROUS SULFATE 325 MG TAB PO SCH (07:58)
[2016-07-26] MEDS: TIOTROPIUM BROMIDE 5 PUFF/90 MCG INH INH SCH (07:58)
[2016-07-26] MEDS ORDERED: AMLODIPINE BESYLATE 5 MG TAB PO SCH ×2 (08:00)
[2016-07-26] MEDS: VANCOMYCIN INJ 600 MG in SODIUM CHLORIDE 0.9% 250ML 250 ML IV SCH (11:14)
--- NOTE | 2016-07-26 11:45 | Family Medicine Progress Note ---
Progress Note Date of Service Jul 26, 2016. Subjective Pt evaluation today including: conversation w/ patient, physical exam, chart review, lab review Voiding: no voiding problems Complains about being " congested in the chest". denies fevers.chills, cough is dry and she is unable to expectorate any sputum. concerned about elevated BP. Constitutional: No chills, No fever Eyes: No worsening of vision ENT: No hearing loss Respiratory: + cough, No shortness of breath Cardiovascular: No chest pain Abdomen: No diarrhea, No nausea, No pain, No vomiting Musculoskeletal: No joint pain Psychiatric: No depression symptoms Medications Current Inpatient Medications Medications (Trade) Dose Ordered Sig/Estephania Route Start Time Stop Time Status Last Admin Dose Admin Enoxaparin Sodium (Lovenox Inj) 30 mg Q24H SQ 07/21/16 22:00 08/20/16 21:59 07/25/16 22:39 30 MG Acetaminophen (Tylenol Tab) 650 mg Q4H PRN PO 07/21/16 18:45 08/20/16 18:44 07/23/16 12:36 650 MG Al Hydrox/Mg Hydrox/Simethicone (Maalox Max Susp) 15 ml Q4H PRN PO 07/21/16 18:45 08/20/16 18:44 Magnesium Hydroxide (Milk Of Magnesia Susp) 30 ml Q6H PRN PO 07/21/16 18:45 08/20/16 18:44 07/23/16 17:01 30 ML Ondansetron HCl (Zofran Inj) 4 mg Q6H PRN IV 07/21/16 18:45 08/20/16 18:44 Albuterol/ Ipratropium (Duoneb) 3 ml Q4R INH 07/21/16 20:00 08/20/16 19:59 07/26/16 11:32 3 ML Albuterol Sulfate (Ventolin 0.083% 2.5MG/3ML Neb) 2.5 mg Q6R PRN INH 07/21/16 18:45 08/20/16 18:44 Lorazepam (Ativan Tab) 1 mg Q6 PRN PO 07/21/16 19:45 08/20/16 19:44 07/26/16 06:19 1 MG Piperacillin Sod/ Tazobactam Sod (Consult) 1 ea UD PRN N/A 07/21/16 20:30 08/20/16 20:29 Vancomycin HCl (Consult) 1 ea UD PRN N/A 07/21/16 20:30 08/20/16 20:29 Allopurinol (Zyloprim Tab) 100 mg BID PO 07/22/16 08:00 08/21/16 07:59 07/26/16 07:56 100 MG Baclofen (Lioresal Tab) 10 mg TID PO 07/22/16 08:00 08/21/16 07:59 07/26/16 07:56 10 MG Carvedilol (Coreg Tab) 25 mg BID PO 07/22/16 08:00 08/21/16 07:59 07/26/16 07:57 25 MG Cholecalciferol (Vitamin D Tab) 4,000 inter.unit DAILY PO 07/22/16 08:00 08/21/16 07:59 07/26/16 07:57 4,000 INTER.UNIT Clonidine HCl (Catapres Tab) 0.3 mg BID PO 07/22/16 08:00 08/21/16 07:59 07/26/16 07:57 0.3 MG Epinephrine (Epipen) 0.3 mg UD PRN IM 07/21/16 22:45 08/20/16 22:44 Ergocalciferol (Vitamin D Cap) 50,000 interunit Fr@0800 PO 07/22/16 08:00 08/21/16 07:59 07/22/16 08:30 50,000 INTERUNIT Salmeterol Xinafoate/ Fluticasone (Advair Diskus 250/50 Inh) 1 puff BID INH 07/22/16 08:00 08/21/16 07:59 07/26/16 07:58 1 PUFF Guaifenesin (Mucinex Contr Rel Tab) 600 mg BID PO 07/22/16 08:00 08/21/16 07:59 07/26/16 07:57 600 MG Hydralazine HCl (Apresoline Tab) 50 mg Q8H PO 07/21/16 22:45 08/20/16 22:44 07/26/16 07:32 50 MG Hydromorphone HCl (Dilaudid Tab) 6 mg BID PO 07/22/16 08:00 08/05/16 07:59 07/26/16 07:56 6 MG Latanoprost (Xalatan Oph Soln) 1 drops HS OPR 07/22/16 21:00 08/21/16 20:59 07/25/16 21:05 1 DROPS Methadone HCl (Dolophine Tab) 30 mg TID PO 07/22/16 08:00 08/05/16 07:59 07/26/16 07:56 30 MG Multivitamins (Multivitamin Tab) 1 tab DAILY PO 07/22/16 08:00 08/21/16 07:59 07/26/16 07:57 1 TAB Pantoprazole Sodium (Protonix Tab) 40 mg BID PO 07/22/16 08:00 08/21/16 07:59 07/26/16 07:57 40 MG Sucralfate (Carafate Susp) 1 gm ACHS PO 07/22/16 06:30 08/21/16 06:29 07/26/16 11:14 1 GM Tiotropium [place] (Spiriva Handihaler Inhaler) 1 puff DAILY INH 07/22/16 08:00 08/21/16 07:59 07/26/16 07:58 1 PUFF Zolpidem Tartrate (Ambien Tab) 10 mg HS PO 07/22/16 21:00 08/21/16 20:59 07/25/16 23:52 10 MG Ferrous Sulfate (Feosol Tab) 325 mg DAILY PO 07/22/16 08:00 08/21/16 07:59 07/26/16 07:58 325 MG Polyethylene (Miralax Powder Packet) 17 gm BID PRN PO 07/21/16 22:45 08/20/16 22:44 Polyethylene (Miralax Powder Packet) 17 gm DAILY PO 07/22/16 08:00 08/21/16 07:59 07/25/16 08:47 17 GM Dornase Dustin 2.5 ml 2.5 ml BIDR INH 07/22/16 20:00 08/21/16 19:59 07/26/16 06:54 2.5 ML Vancomycin HCl/ Sodium Chloride (Vancomycin Inj/ Nss 250ml) 262 ml @ 125 mls/hr DAILY@1100 IV 07/22/16 11:30 07/29/16 11:29 07/26/16 11:14 125 MLS/HR Hydralazine HCl 20 mg 20 mg Q6H PRN IV. 07/23/16 13:15 08/22/16 13:14 07/26/16 03:05 20 MG Piperacillin Sod/ Tazobactam Sod/ Dextrose (Zosyn Iv/D5 100ml) 115 ml @ 28.75 mls/ hr Q8@0600,1400,2200 IV 07/24/16 14:00 07/28/16 21:00 07/26/16 06:08 28.75 MLS/HR Prednisone (PredniSONE TAB) 20 mg DAILY PO 07/26/16 08:00 08/25/16 07:59 07/26/16 07:57 20 MG Amlodipine Besylate (Norvasc Tab) 10 mg QAM PO 07/27/16 08:00 08/26/16 07:59 Objective Vital Signs Date Time Temp Pulse Resp B/P Pulse Ox O2 Delivery O2 Flow Rate FiO2 07/26/16 11:35 71 16 92 Nasal Cannula 3.0 07/26/16 08:00 Room Air 07/26/16 07:30 63 138/95 07/26/16 06:55 67 16 95 Nasal Cannula 3.0 07/26/16 06:09 65 181/99 07/26/16 04:19 71 172/96 07/26/16 03:02 192/111 07/26/16 02:57 71 178/115 07/26/16 00:21 36.7 65 20 159/92 95 Nasal Cannula 3.0 07/26/16 00:00 Nasal Cannula 3.0 07/25/16 22:41 66 167/101 07/25/16 20:58 67 184/99 07/25/16 20:00 Nasal Cannula 3.0 07/25/16 16:00 90 Nasal Cannula 3.0 07/25/16 16:00 68 20 162/90 97 07/25/16 15:31 68 16 94 Nasal Cannula 3.0 07/25/16 14:53 36.9 71 22 187/96 94 Nasal Cannula 3.0 Physical Exam General Appearance: WD/WN, no apparent distress Eyes: normal inspection ENT: normal ENT inspection, hearing grossly normal Neck: supple Respiratory/Chest: chest non-tender, + rhonchi, + wheezing Cardiovascular: regular rate, rhythm, no edema Abdomen: normal bowel sounds, non tender, soft Extremities: normal range of motion, non-tender Neurologic/Psychiatric: alert, normal mood/affect, oriented x 3 Skin: normal color Laboratory Results 07/26/16 06:15 07/26/16 06:15 Test 07/26/16 06:15 Red Blood Count 4.12 M/uL (4.2-5.4) Mean Corpuscular Volume 91.0 fL (80-100) Mean Corpuscular Hemoglobin 30.1 pg (25-34) Mean Corpuscular Hemoglobin Concent 33.1 g/dl (32-36) RDW Standard Deviation 51.9 fL (36.4-46.3) RDW Coefficient of Variation 15.6 % (11.5-14.5) Mean Platelet Volume 11.7 fL (7.4-10.4) Anion Gap 10.0 mmol/L (3-11) Est Creatinine Clear Calc Drug Dose 31.4 ml/min Estimated GFR () 44.6 Estimated GFR (Non- 38.5 BUN/Creatinine Ratio 25.0 (10-20) Calcium Level 8.9 mg/dl (8.5-10.1) Magnesium Level 2.7 mg/dl (1.8-2.4) Assessment and Plan Possible pneumonia/ Bronchiectasis - MRSA swab positive - Continue Zosyn day 6 and vancomycin day 6 - Continue guaifenesin 600 mg BID, Dornase - Pulm consulted- appreciate input - Switched to PO Prednisone 20 mg - wean over 4-5 days - Continue on the Advair 250/50 one inh BID, Spiriva 1 inh daily and DuoNeb as needed HTN: - Home Meds hydralazine 50 mgh q8h, clonidine 0.3 mg BID, Coreg 25 mg BID - h/o right sided MARITZA s/p stenting 3 years ago - Will add Norvasc 10 mg QAM - hydralazine 20 mg IV q6h PRN - Monitor BP Chronic kidney disease. - Creatinine at 1.4 from 1.9 on admission holding off on any diuretics giving her gentle IV fluids. Venous insufficiency. - compression stockings Severe refractory osteoporosis: - Continue vitamin D. - Prolia Hyperparathyroidism: - Continue vitamin D supplementation. Chronic pain - continue Dilaudid , Baclofen, methadone Chronic constipation - MiraLAX 17 grams daily Deconditioning: - PT/OT FULL Code DVT Prophylaxis: [facility] Resident Physician Supervision Note: I was present with Dr. Fischer during the history and exam. I discussed the case with the resident and agree with the findings and plan as documented in the note. Any exceptions or clarifications are listed here: Clinically, from a pulmonary standpoint, the patient seems to be improving. She complains of a generalized weakness for which she is undergoing physical therapy. We will reevaluate tomorrow and assess the need for continued IV antibiotics versus transition to oral antibiotics. Documented By: Dashawn Huynh
[2016-07-26] MEDS: LATANOPROST 0.005% OP SOLN 2.5 ML BTL OPR SCH (21:00)
[2016-07-26] MEDS: ENOXAPARIN 30 MG/0.3 ML SYR SQ SCH (21:45)
[2016-07-26] MEDS: ZOLPIDEM TARTRATE 10 MG TAB PO SCH (23:25)
[2016-07-27] VITALS (9 sets, daily range): BP systolic 132–180; BP diastolic 79–118; PULSE 61–76; TEMP 36.4–36.6; O2SAT 91–96
[2016-07-27] MEDS: ALBUT/IPRATROP 3MG/0.5MG NEB 3 ML VIAL INH SCH ×5 (03:20→19:16)
[2016-07-27] MEDS: PIPERACILL/TAZOBAC IV 3.375 GM in DEXTROSE 5% 100ML IV SCH ×3 (05:37→22:25)
[2016-07-27 05:59] LABS: HEMATOCRIT 34.1 % (37-47); MEAN CELL VOLUME 90.5 fL (80-100); MEAN CORPUSCULAR HGB CONC 33.1 g/dl (32-36); MEAN PLATELET VOLUME 11.4 fL (7.4-10.4); PLATELET COUNT 203 K/uL (130-400); RED BLOOD COUNT 3.77 M/uL (4.2-5.4); WHITE BLOOD COUNT 23.24 K/uL (4.8-10.8)
[2016-07-27] MEDS: SUCRALFATE 1 GM/10 ML UDC PO SCH ×4 (05:59→22:07)
[2016-07-27] MEDS: HydrALAZINE HCL 20 MG/ML VIAL IV. PRN (06:08)
[2016-07-27 06:39] LABS: BUN/CREATININE RATIO 23.1 (10-20); CALCIUM 8.7 mg/dl (8.5-10.1); CREATININE 1.4 mg/dl (0.60-1.20); POTASSIUM 3.8 mmol/L (3.5-5.1)
[2016-07-27] MEDS: FLUTICASONE/SALMETEROL 250/50 (ADVAIR) 14 PUFF/1 INHALER INH SCH ×2 (07:37→22:08)
[2016-07-27] MEDS: TIOTROPIUM BROMIDE 5 PUFF/90 MCG INH INH SCH (07:38)
[2016-07-27] MEDS: ALLOPURINOL 100 MG TAB PO SCH ×2 (07:38→22:11)
[2016-07-27] MEDS: AMLODIPINE BESYLATE 5 MG TAB PO SCH (07:39)
[2016-07-27] MEDS: FERROUS SULFATE 325 MG TAB PO SCH (07:39)
[2016-07-27] MEDS: PANTOprazole SOD 40 MG TAB PO SCH ×2 (07:39→22:13)
[2016-07-27] MEDS: MULTIVITAMIN TAB PO SCH (07:39)
[2016-07-27] MEDS: GUAIFENESIN 600 MG TABCR PO SCH ×2 (07:39→22:11)
[2016-07-27] MEDS: BACLOFEN 10 MG TAB PO SCH ×3 (07:40→22:13)
[2016-07-27] MEDS: CHOLECALCIFEROL 1000 INTER.UNIT TAB PO SCH (07:40)
[2016-07-27] MEDS: CARVEDILOL 25 MG TAB PO SCH ×2 (07:40→22:26)
[2016-07-27] MEDS: POLYETHYLENE (MIRALAX) 17 GM PACK PO SCH (07:40)
[2016-07-27] MEDS: CLONIDINE HCL 0.3 MG TAB PO SCH ×2 (07:41→22:15)
[2016-07-27] MEDS: METHADONE HCL 10 MG TAB PO SCH ×3 (07:49→22:25)
[2016-07-27] MEDS: HYDROmorphone HCL 2 MG TAB PO SCH ×2 (07:49→22:07)
--- NOTE | 2016-07-27 07:57 | PULMONARY PROGRESS NOTE ---
DATE: 07/27/2016 The patient is comfortable. The last note suggested decreasing the clonidine but that should have been increase the clonidine for blood pressure control. Nonetheless, she is sitting, reading this morning, working on her cell phone, and feels about the same. She denies cough or chest pain. She was out of bed for a long time yesterday and tolerated that very well. She tolerates the nebulizer well. PHYSICAL EXAMINATION: VITAL SIGNS: Stable now and she is afebrile. Her blood pressure is 132/79 at 1:00 and this morning it is 180/84, oxygen saturation 92% on 3 liters, 96% on 3 liters at midnight. I\T\O, 955 in and unknown amount out. She did have 3 bowel movements since midnight, 4 yesterday. She denies pain, crampy abdominal pain, or nausea. HEENT: Unremarkable. BACK: Significant kyphosis of thoracic spine is noted with restriction of the thorax with inspiration. HEART: Regular rate and rhythm. I do not detect any murmurs today. Second heart sound normal. LUNGS: Reveal few crackles at the right base. Few rhonchi are noted. No fremitus is noted. There is no dullness to percussion. ABDOMEN: Soft, nontender. No organomegaly noted. EXTREMITIES: She has no cyanosis, clubbing or edema. LABORATORY DATA: White count is elevated at 23,000 with hemoglobin of 11.3. PRP is pending for today. BUN and creatinine were 35 and 1.4 yesterday with magnesium of 2.7. MRSA DNA surveillance screen by DNA probe was positive for nasal swab. IMPRESSION: 1. Bronchiectasis. 2. Chronic obstructive pulmonary disease with exacerbation. 3. 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 RECOMMENDATIONS: 1. Continue with her present medications, incentive spirometry, and encourage coughing. 2. Continue to taper the prednisone and for now I believe I will continue on the Zosyn until that is finished along with the vancomycin. 3. Continue on Advair 1 inhalation b.i.d., Spiriva 1 inhalation daily, and DuoNeb 4 times a day and then q. 4 hours p.r.n. That will help to enhance mucociliary clearance. 4. Good DVT prophylaxis. Overall, the patient is stable today.
[2016-07-27] MEDS: DORNASE ALFA (2500U) 2.5MG/2.5ML INH SCH ×2 (08:05→19:16)
--- NOTE | 2016-07-27 10:50 | Clinical Documentation Query ---
ELHAM Galarza : CLINICAL DOCUMENTATION QUERY Patient is a 70 year old female admitted for treatment of healthcare associated pneumonia. 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 As appropriate, please explicitly link the above statements to the clinical diagnosis of pneumonia. Thank you. In your clinical opinion is this patient being managed for: ( ) (Possible/Suspected) gram-negative and/or MRSA pneumonia, treated with IV Zosyn and Vancomycin ( ) Other explanation of clinical findings (Please Explain) ( ) Unable to determine (Please Define) ( ) Need to Discuss ( ) Not Agree The medical record reflects the following clinical findings, treatment, and risk factors. Clinical Indicators: As above Treatment: Zosyn, Vancomycin, pulmonary consultation, steroids, nebs, flutter valve, chest PT Risk Factors: Age, group home residence, MRSA carrier history, recent hospitalization, COPD Please clarify and document your clinical opinion in the progress notes and discharge summary. Terms such as "probable", "suspected", "likely", "questionable", "possible", or "still to be ruled out" are acceptable. IF IN AGREEMENT, YOU MUST DOCUMENT ABOVE DIAGNOSTIC STATEMENT IN DAILY PROGRESS NOTES AND DISCHARGE SUMMARY. This document is not part of the patient's record. Thank You, Ad Benitez, LARA [phone]
--- NOTE | 2016-07-27 11:56 | Family Medicine Progress Note ---
Progress Note Date of Service Jul 27, 2016. Subjective Pt evaluation today including: conversation w/ patient, physical exam, chart review, lab review Pain: denies pain PO Intake: good Voiding: no voiding problems doing better. concerned if her elevated Bp is from renal artery stenosis. she has stent in her right renal artery. otherwise feeling better, no fevers/chills, SOB, chest pain Constitutional: No chills, No fever Eyes: No worsening of vision ENT: No hearing loss Respiratory: + cough, + problem reported (congestion in the chest), No wheezing Cardiovascular: No chest pain Abdomen: No GI bleeding, No nausea, No pain, No vomiting Musculoskeletal: No joint pain Female : No dysuria Neurologic: No memory loss Endo: No fatigue Medications Current Inpatient Medications Medications (Trade) Dose Ordered Sig/Estephania Route Start Time Stop Time Status Last Admin Dose Admin Enoxaparin Sodium (Lovenox Inj) 30 mg Q24H SQ 07/21/16 22:00 08/20/16 21:59 07/26/16 21:45 30 MG Acetaminophen (Tylenol Tab) 650 mg Q4H PRN PO 07/21/16 18:45 08/20/16 18:44 07/23/16 12:36 650 MG Al Hydrox/Mg Hydrox/Simethicone (Maalox Max Susp) 15 ml Q4H PRN PO 07/21/16 18:45 08/20/16 18:44 Magnesium Hydroxide (Milk Of Magnesia Susp) 30 ml Q6H PRN PO 07/21/16 18:45 08/20/16 18:44 07/23/16 17:01 30 ML Ondansetron HCl (Zofran Inj) 4 mg Q6H PRN IV 07/21/16 18:45 08/20/16 18:44 07/26/16 21:53 4 MG Albuterol/ Ipratropium (Duoneb) 3 ml Q4R INH 07/21/16 20:00 08/20/16 19:59 07/27/16 08:05 3 ML Albuterol Sulfate (Ventolin 0.083% 2.5MG/3ML Neb) 2.5 mg Q6R PRN INH 07/21/16 18:45 08/20/16 18:44 Lorazepam (Ativan Tab) 1 mg Q6 PRN PO 07/21/16 19:45 08/20/16 19:44 07/26/16 21:53 1 MG Piperacillin Sod/ Tazobactam Sod (Consult) 1 ea UD PRN N/A 07/21/16 20:30 08/20/16 20:29 Vancomycin HCl (Consult) 1 ea UD PRN N/A 07/21/16 20:30 08/20/16 20:29 Allopurinol (Zyloprim Tab) 100 mg BID PO 07/22/16 08:00 08/21/16 07:59 07/27/16 07:38 100 MG Baclofen (Lioresal Tab) 10 mg TID PO 07/22/16 08:00 08/21/16 07:59 07/27/16 07:40 10 MG Carvedilol (Coreg Tab) 25 mg BID PO 07/22/16 08:00 08/21/16 07:59 07/27/16 07:40 25 MG Cholecalciferol (Vitamin D Tab) 4,000 inter.unit DAILY PO 07/22/16 08:00 08/21/16 07:59 07/27/16 07:40 4,000 INTER.UNIT Clonidine HCl (Catapres Tab) 0.3 mg BID PO 07/22/16 08:00 08/21/16 07:59 07/27/16 07:41 0.3 MG Epinephrine (Epipen) 0.3 mg UD PRN IM 07/21/16 22:45 08/20/16 22:44 Ergocalciferol (Vitamin D Cap) 50,000 interunit Fr@0800 PO 07/22/16 08:00 08/21/16 07:59 07/22/16 08:30 50,000 INTERUNIT Salmeterol Xinafoate/ Fluticasone (Advair Diskus 250/50 Inh) 1 puff BID INH 07/22/16 08:00 08/21/16 07:59 07/27/16 07:37 1 PUFF Guaifenesin (Mucinex Contr Rel Tab) 600 mg BID PO 07/22/16 08:00 08/21/16 07:59 07/27/16 07:39 600 MG Hydralazine HCl (Apresoline Tab) 50 mg Q8H PO 07/21/16 22:45 08/20/16 22:44 07/27/16 05:59 50 MG Hydromorphone HCl (Dilaudid Tab) 6 mg BID PO 07/22/16 08:00 08/05/16 07:59 07/27/16 07:49 6 MG Latanoprost (Xalatan Oph Soln) 1 drops HS OPR 07/22/16 21:00 08/21/16 20:59 07/26/16 21:00 1 DROPS Methadone HCl (Dolophine Tab) 30 mg TID PO 07/22/16 08:00 08/05/16 07:59 07/27/16 07:49 30 MG Multivitamins (Multivitamin Tab) 1 tab DAILY PO 07/22/16 08:00 08/21/16 07:59 07/27/16 07:39 1 TAB Pantoprazole Sodium (Protonix Tab) 40 mg BID PO 07/22/16 08:00 08/21/16 07:59 07/27/16 07:39 40 MG Sucralfate (Carafate Susp) 1 gm ACHS PO 07/22/16 06:30 08/21/16 06:29 07/27/16 05:59 1 GM Tiotropium [place] (Spiriva Handihaler Inhaler) 1 puff DAILY INH 07/22/16 08:00 08/21/16 07:59 07/27/16 07:38 1 PUFF Zolpidem Tartrate (Ambien Tab) 10 mg HS PO 07/22/16 21:00 08/21/16 20:59 07/26/16 23:25 10 MG Ferrous Sulfate (Feosol Tab) 325 mg DAILY PO 07/22/16 08:00 08/21/16 07:59 07/27/16 07:39 325 MG Polyethylene (Miralax Powder Packet) 17 gm BID PRN PO 07/21/16 22:45 08/20/16 22:44 Polyethylene (Miralax Powder Packet) 17 gm DAILY PO 07/22/16 08:00 08/21/16 07:59 07/27/16 07:40 17 GM Dornase Dustin 2.5 ml 2.5 ml BIDR INH 07/22/16 20:00 08/21/16 19:59 07/27/16 08:05 2.5 ML Vancomycin HCl/ Sodium Chloride (Vancomycin Inj/ Nss 250ml) 262 ml @ 125 mls/hr DAILY@1100 IV 07/22/16 11:30 07/29/16 11:29 07/26/16 11:14 125 MLS/HR Hydralazine HCl 20 mg 20 mg Q6H PRN IV. 07/23/16 13:15 08/22/16 13:14 07/27/16 06:08 20 MG Piperacillin Sod/ Tazobactam Sod/ Dextrose (Zosyn Iv/D5 100ml) 115 ml @ 28.75 mls/ hr Q8@0600,1400,2200 IV 07/24/16 14:00 07/28/16 21:00 07/27/16 05:37 28.75 MLS/HR Prednisone (PredniSONE TAB) 20 mg DAILY PO 07/26/16 08:00 08/25/16 07:59 07/27/16 07:39 20 MG Amlodipine Besylate (Norvasc Tab) 10 mg QAM PO 07/27/16 08:00 08/26/16 07:59 07/27/16 07:39 10 MG Objective Vital Signs Date Time Temp Pulse Resp B/P Pulse Ox O2 Delivery O2 Flow Rate FiO2 07/27/16 08:05 63 16 91 Nasal Cannula 3.0 07/27/16 07:42 36.4 64 18 163/94 91 Nasal Cannula 3.0 07/27/16 06:49 64 151/84 07/27/16 06:00 36.4 61 20 180/84 92 Nasal Cannula 3.0 07/27/16 00:54 132/79 07/27/16 00:30 91 Nasal Cannula 3.0 07/27/16 00:23 36.6 65 20 148/118 96 Nasal Cannula 3.0 07/26/16 21:40 73 183/105 97 07/26/16 16:00 Nasal Cannula 07/26/16 15:58 36.9 79 16 161/84 92 Nasal Cannula 3.0 07/26/16 14:20 76 134/79 07/26/16 13:39 36.7 70 18 168/91 94 Nasal Cannula 3.0 Physical Exam General Appearance: WD/WN, no apparent distress Eyes: normal inspection ENT: normal ENT inspection, hearing grossly normal Neck: supple Respiratory/Chest: no respiratory distress, no accessory muscle use, + decreased breath sounds, + rhonchi (mild) Cardiovascular: regular rate, rhythm Abdomen: normal bowel sounds, non tender, soft Extremities: no pedal edema Neurologic/Psychiatric: alert, normal mood/affect, oriented x 3 Laboratory Results 07/27/16 05:23 07/27/16 05:23 Test 07/27/16 05:23 Red Blood Count 3.77 M/uL (4.2-5.4) Mean Corpuscular Volume 90.5 fL (80-100) Mean Corpuscular Hemoglobin 30.0 pg (25-34) Mean Corpuscular Hemoglobin Concent 33.1 g/dl (32-36) RDW Standard Deviation 51.2 fL (36.4-46.3) RDW Coefficient of Variation 15.6 % (11.5-14.5) Mean Platelet Volume 11.4 fL (7.4-10.4) Anion Gap 10.0 mmol/L (3-11) Est Creatinine Clear Calc Drug Dose 31.4 ml/min Estimated GFR () 44.6 Estimated GFR (Non- 38.5 BUN/Creatinine Ratio 23.1 (10-20) Calcium Level 8.7 mg/dl (8.5-10.1) Assessment and Plan Possible pneumonia/ Bronchiectasis - MRSA swab positive - Continue Zosyn day 7 and vancomycin day 7 - Continue guaifenesin 600 mg BID, Dornase - Pulm consulted- appreciate input - Switched to PO Prednisone 20 mg - weaning down - Continue on the Advair 250/50 one inh BID, Spiriva 1 inh daily and DuoNeb q4h and duoneb q4h as needed HTN: - Home Meds hydralazine 50 mgh q8h, clonidine 0.3 mg BID, Coreg 25 mg BID - h/o right sided MARITZA s/p stenting 3 years ago - renal US ordered - Will add Norvasc 10 mg QAM - hydralazine 20 mg IV q6h PRN - Monitor BP nasal bleeding- controlled likely sec to dry nasal mucosa - ocean nasal spray Chronic kidney disease. - Creatinine at 1.4 from 1.9 on admission Venous insufficiency. - compression stockings Severe refractory osteoporosis: - Continue vitamin D. - Prolia Hyperparathyroidism: - Continue vitamin D supplementation. Chronic pain - continue Dilaudid , Baclofen, methadone Chronic constipation - MiraLAX 17 grams daily Deconditioning: - PT/OT FULL Code [facility] Resident Phys[facility] Supervision Note: I was present with Dr. Fischer during the history and exam. I discussed the case with the resident and agree with the findings and plan as documented in the note. Documented By: Dashawn Huynh
[2016-07-27] MEDS: VANCOMYCIN INJ 600 MG in SODIUM CHLORIDE 0.9% 250ML 250 ML IV SCH (11:58)
[2016-07-27] MEDS ORDERED: SODIUM CHLORIDE 0.65% NA SOLN 45 ML (OCEAN) PRN (16:00)
[2016-07-27] MEDS ORDERED: SODIUM CHLORIDE 0.65% NA SOLN 45 ML (OCEAN) ONE (16:15)
[2016-07-27] MEDS ORDERED: ALBUT/IPRATROP 3MG/0.5MG NEB 3 ML VIAL INH PRN (16:30)
[2016-07-27] MEDS: ZOLPIDEM TARTRATE 10 MG TAB PO SCH (22:07)
[2016-07-27] MEDS: LATANOPROST 0.005% OP SOLN 2.5 ML BTL OPR SCH (22:15)
[2016-07-27] MEDS: ENOXAPARIN 30 MG/0.3 ML SYR SQ SCH (22:17)
[2016-07-28] VITALS (14 sets, daily range): BP systolic 146–204; BP diastolic 83–122; PULSE 67–76; TEMP 36.3–36.7; O2SAT 93–96
[2016-07-28] MEDS: ALBUT/IPRATROP 3MG/0.5MG NEB 3 ML VIAL INH SCH ×6 (04:00→23:11)
[2016-07-28] MEDS: HydrALAZINE HCL 20 MG/ML VIAL IV. PRN ×3 (05:19→23:23)
[2016-07-28] MEDS: PIPERACILL/TAZOBAC IV 3.375 GM in DEXTROSE 5% 100ML IV SCH ×2 (05:28→13:56)
[2016-07-28] MEDS: LORAZEPAM 1 MG TAB PO PRN ×2 (05:28→14:04)
[2016-07-28] MEDS: SUCRALFATE 1 GM/10 ML UDC PO SCH ×4 (05:30→21:40)
[2016-07-28 06:55] LABS: BUN/CREATININE RATIO 25.4 (10-20); CALCIUM 8.9 mg/dl (8.5-10.1); CREATININE 1.5 mg/dl (0.60-1.20); POTASSIUM 3.6 mmol/L (3.5-5.1)
[2016-07-28 06:58] LABS: CHOLESTEROL/HDL RATIO 3.3
[2016-07-28 07:23] LABS: HEMATOCRIT 36.9 % (37-47); MEAN CELL VOLUME 93.9 fL (80-100); MEAN CORPUSCULAR HEMOGLOBIN 30.3 pg (25-34); MEAN CORPUSCULAR HGB CONC 32.2 g/dl (32-36); MEAN PLATELET VOLUME 12.1 fL (7.4-10.4); PLATELET COUNT 233 K/uL (130-400); RED BLOOD COUNT 3.93 M/uL (4.2-5.4); WHITE BLOOD COUNT 17.99 K/uL (4.8-10.8)
[2016-07-28] MEDS: AMLODIPINE BESYLATE 5 MG TAB PO SCH (07:32)
[2016-07-28] MEDS: CLONIDINE HCL 0.3 MG TAB PO SCH (07:33)
[2016-07-28] MEDS: CARVEDILOL 25 MG TAB PO SCH ×2 (07:33→21:39)
[2016-07-28] MEDS: DORNASE ALFA (2500U) 2.5MG/2.5ML INH SCH ×2 (07:43→20:00)
--- NOTE | 2016-07-28 09:21 | DIAGNOSTIC IMAGING REPORT ---
CHEST 2 VIEWS ROUTINE CLINICAL HISTORY: pneumonia COMPARISON STUDY: 07/21/2016 FINDINGS: The heart is enlarged. There are old left-sided rib fractures. There is evidence of multiple prior vertebroplasty's. There is no overt failure. There are linear basilar opacities, likely atelectatic. There is no lobar consolidation. There are no pleural effusions.[ IMPRESSION: Cardiomegaly and bibasilar atelectatic change. Electronically signed by: Himanshu Cueto M.D. 07/28/2016 9:19 AM Dictated Date/Time: 07/28/2016 9:16 AM
--- NOTE | 2016-07-28 09:45 | DIAGNOSTIC IMAGING REPORT ---
Duplex renal arterial Doppler DUPLEX RENAL ARTERY CLINICAL HISTORY: hypertension hypertension TECHNIQUE: Doppler ultrasound COMPARISON STUDY: None FINDINGS: Nondiagnostic study. Renal arteries could not be diagnostically evaluated due to overlying bowel content and patient body habitus IMPRESSION: Nondiagnostic exam due to compromised visibility Electronically signed by: Klever June M.D. 07/28/2016 9:44 AM Dictated Date/Time: 07/28/2016 9:43 AM
[2016-07-28] MEDS: HYDROmorphone HCL 2 MG TAB PO SCH ×2 (10:16→21:46)
[2016-07-28] MEDS: MULTIVITAMIN TAB PO SCH (10:17)
[2016-07-28] MEDS: METHADONE HCL 10 MG TAB PO SCH ×3 (10:17→21:46)
[2016-07-28] MEDS: PANTOprazole SOD 40 MG TAB PO SCH ×2 (10:17→21:38)
[2016-07-28] MEDS: FERROUS SULFATE 325 MG TAB PO SCH (10:18)
[2016-07-28] MEDS: BACLOFEN 10 MG TAB PO SCH ×3 (10:18→21:39)
[2016-07-28] MEDS: CHOLECALCIFEROL 1000 INTER.UNIT TAB PO SCH (10:18)
[2016-07-28] MEDS: TIOTROPIUM BROMIDE 5 PUFF/90 MCG INH INH SCH (10:19)
[2016-07-28] MEDS: GUAIFENESIN 600 MG TABCR PO SCH ×2 (10:19→21:39)
[2016-07-28] MEDS: POLYETHYLENE (MIRALAX) 17 GM PACK PO SCH (10:19)
[2016-07-28] MEDS: FLUTICASONE/SALMETEROL 250/50 (ADVAIR) 14 PUFF/1 INHALER INH SCH ×2 (10:20→21:38)
[2016-07-28] MEDS: ALLOPURINOL 100 MG TAB PO SCH ×2 (10:25→21:39)
[2016-07-28] MEDS: VANCOMYCIN INJ 600 MG in SODIUM CHLORIDE 0.9% 250ML 250 ML IV SCH (11:04)
--- NOTE | 2016-07-28 15:07 | Family Medicine Progress Note ---
Progress Note Date of Service Jul 28, 2016. Subjective Pt evaluation today including: conversation w/ patient, physical exam, chart review, lab review Pain: denies pain PO Intake: good Voiding: no voiding problems Had an episode of epistaxis which was resolved with pressure and has brooks using nasal saline spray Constitutional: No chills, No fever Eyes: No worsening of vision ENT: + nasal symptoms (epistaxis yesterday- now resolved), No hearing loss Respiratory: No cough, No sputum, No wheezing Cardiovascular: No chest pain Abdomen: No nausea, No pain Musculoskeletal: No joint pain Female : No dysuria, No urinary frequency Psychiatric: No depression symptoms Medications Current Inpatient Medications Medications (Trade) Dose Ordered Sig/Estephania Route Start Time Stop Time Status Last Admin Dose Admin Enoxaparin Sodium (Lovenox Inj) 30 mg Q24H SQ 07/21/16 22:00 08/20/16 21:59 07/27/16 22:17 30 MG Acetaminophen (Tylenol Tab) 650 mg Q4H PRN PO 07/21/16 18:45 08/20/16 18:44 07/23/16 12:36 650 MG Al Hydrox/Mg Hydrox/Simethicone (Maalox Max Susp) 15 ml Q4H PRN PO 07/21/16 18:45 08/20/16 18:44 Magnesium Hydroxide (Milk Of Magnesia Susp) 30 ml Q6H PRN PO 07/21/16 18:45 08/20/16 18:44 07/23/16 17:01 30 ML Ondansetron HCl (Zofran Inj) 4 mg Q6H PRN IV 07/21/16 18:45 08/20/16 18:44 07/26/16 21:53 4 MG Albuterol/ Ipratropium (Duoneb) 3 ml Q4R INH 07/21/16 20:00 08/20/16 19:59 07/27/16 08:05 3 ML Albuterol Sulfate (Ventolin 0.083% 2.5MG/3ML Neb) 2.5 mg Q6R PRN INH 07/21/16 18:45 08/20/16 18:44 Lorazepam (Ativan Tab) 1 mg Q6 PRN PO 07/21/16 19:45 08/20/16 19:44 07/28/16 05:28 1 MG Piperacillin Sod/ Tazobactam Sod (Consult) 1 ea UD PRN N/A 07/21/16 20:30 08/20/16 20:29 Vancomycin HCl (Consult) 1 ea UD PRN N/A 07/21/16 20:30 08/20/16 20:29 Allopurinol (Zyloprim Tab) 100 mg BID PO 07/22/16 08:00 08/21/16 07:59 07/27/16 22:11 100 MG Baclofen (Lioresal Tab) 10 mg TID PO 07/22/16 08:00 08/21/16 07:59 07/27/16 22:13 10 MG Carvedilol (Coreg Tab) 25 mg BID PO 07/22/16 08:00 08/21/16 07:59 07/28/16 07:33 25 MG Cholecalciferol (Vitamin D Tab) 4,000 inter.unit DAILY PO 07/22/16 08:00 08/21/16 07:59 07/27/16 07:40 4,000 INTER.UNIT Clonidine HCl (Catapres Tab) 0.3 mg BID PO 07/22/16 08:00 08/21/16 07:59 07/28/16 07:33 0.3 MG Epinephrine (Epipen) 0.3 mg UD PRN IM 07/21/16 22:45 08/20/16 22:44 Ergocalciferol (Vitamin D Cap) 50,000 interunit Fr@0800 PO 07/22/16 08:00 08/21/16 07:59 07/22/16 08:30 50,000 INTERUNIT Salmeterol Xinafoate/ Fluticasone (Advair Diskus 250/50 Inh) 1 puff BID INH 07/22/16 08:00 08/21/16 07:59 07/27/16 22:08 1 PUFF Guaifenesin (Mucinex Contr Rel Tab) 600 mg BID PO 07/22/16 08:00 08/21/16 07:59 07/27/16 22:11 600 MG Hydralazine HCl (Apresoline Tab) 50 mg Q8H PO 07/21/16 22:45 08/20/16 22:44 07/28/16 05:30 50 MG Hydromorphone HCl (Dilaudid Tab) 6 mg BID PO 07/22/16 08:00 08/05/16 07:59 07/27/16 22:07 6 MG Latanoprost (Xalatan Oph Soln) 1 drops HS OPR 07/22/16 21:00 08/21/16 20:59 07/27/16 22:15 1 DROPS Methadone HCl (Dolophine Tab) 30 mg TID PO 07/22/16 08:00 08/05/16 07:59 07/27/16 22:25 30 MG Multivitamins (Multivitamin Tab) 1 tab DAILY PO 07/22/16 08:00 08/21/16 07:59 07/27/16 07:39 1 TAB Pantoprazole Sodium (Protonix Tab) 40 mg BID PO 07/22/16 08:00 08/21/16 07:59 07/27/16 22:13 40 MG Sucralfate (Carafate Susp) 1 gm ACHS PO 07/22/16 06:30 08/21/16 06:29 07/28/16 05:30 1 GM Tiotropium [place] (Spiriva Handihaler Inhaler) 1 puff DAILY INH 07/22/16 08:00 08/21/16 07:59 07/27/16 07:38 1 PUFF Zolpidem Tartrate (Ambien Tab) 10 mg HS PO 07/22/16 21:00 08/21/16 20:59 07/27/16 22:07 10 MG Ferrous Sulfate (Feosol Tab) 325 mg DAILY PO 07/22/16 08:00 08/21/16 07:59 07/27/16 07:39 325 MG Polyethylene (Miralax Powder Packet) 17 gm BID PRN PO 07/21/16 22:45 08/20/16 22:44 Polyethylene (Miralax Powder Packet) 17 gm DAILY PO 07/22/16 08:00 08/21/16 07:59 07/27/16 07:40 17 GM Dornase Dustin 2.5 ml 2.5 ml BIDR INH 07/22/16 20:00 08/21/16 19:59 07/27/16 08:05 2.5 ML Vancomycin HCl/ Sodium Chloride (Vancomycin Inj/ Nss 250ml) 262 ml @ 125 mls/hr DAILY@1100 IV 07/22/16 11:30 07/29/16 11:29 07/27/16 11:58 125 MLS/HR Hydralazine HCl 20 mg 20 mg Q6H PRN IV. 07/23/16 13:15 08/22/16 13:14 07/28/16 05:19 20 MG Piperacillin Sod/ Tazobactam Sod/ Dextrose (Zosyn Iv/D5 100ml) 115 ml @ 28.75 mls/ hr Q8@0600,1400,2200 IV 07/24/16 14:00 07/28/16 21:00 07/28/16 05:28 28.75 MLS/HR Prednisone (PredniSONE TAB) 20 mg DAILY PO 07/26/16 08:00 08/25/16 07:59 07/27/16 22:11 20 MG Amlodipine Besylate (Norvasc Tab) 10 mg QAM PO 07/27/16 08:00 08/26/16 07:59 07/28/16 07:32 10 MG Sodium Chloride ([place] Nasal [place]) 2 sprays Q4 PRN NA 07/27/16 16:00 08/26/16 15:59 Albuterol/ Ipratropium (Duoneb) 3 ml Q4R PRN INH 07/27/16 16:30 08/26/16 16:29 Objective Vital Signs Date Time Temp Pulse Resp B/P Pulse Ox O2 Delivery O2 Flow Rate FiO2 07/28/16 07:42 73 193/106 07/28/16 07:34 179/98 07/28/16 05:19 72 185/98 07/28/16 00:37 36.7 67 20 167/83 94 Nasal Cannula 3.0 07/28/16 00:00 Nasal Cannula 3.0 Humidified Oxygen 07/27/16 20:00 Nasal Cannula 3.0 Humidified Oxygen 07/27/16 16:00 Nasal Cannula 3.0 Humidified Oxygen 07/27/16 16:00 36.5 76 18 155/89 07/27/16 14:13 71 143/84 07/27/16 08:05 63 16 91 Nasal Cannula 3.0 Physical Exam General Appearance: WD/WN, no apparent distress Eyes: normal inspection ENT: normal ENT inspection, hearing grossly normal Neck: supple Respiratory/Chest: chest non-tender, no respiratory distress, + decreased breath sounds Cardiovascular: regular rate, rhythm Abdomen: normal bowel sounds, non tender, soft Extremities: normal range of motion, non-tender Neurologic/Psychiatric: alert, normal mood/affect, oriented x 3 Skin: normal color Laboratory Results 07/28/16 05:42 07/28/16 05:47 Test 07/28/16 05:42 07/28/16 05:47 Red Blood Count 3.93 M/uL (4.2-5.4) Mean Corpuscular Volume 93.9 fL (80-100) Mean Corpuscular Hemoglobin 30.3 pg (25-34) Mean Corpuscular Hemoglobin Concent 32.2 g/dl (32-36) RDW Standard Deviation 54.3 fL (36.4-46.3) RDW Coefficient of Variation 15.8 % (11.5-14.5) Mean Platelet Volume 12.1 fL (7.4-10.4) Anion Gap 9.0 mmol/L (3-11) Est Creatinine Clear Calc Drug Dose 29.3 ml/min Estimated GFR () 41.1 Estimated GFR (Non- 35.4 BUN/Creatinine Ratio 25.4 (10-20) Calcium Level 8.9 mg/dl (8.5-10.1) Triglycerides Level 146 mg/dl (0-150) Cholesterol Level 243 mg/dl (0-200) HDL Cholesterol 73 mg/dl LDL Cholesterol, Calculated 141 mg/dl VLDL Cholesterol, Calculated 29 mg/dl Cholesterol/HDL Ratio 3.3 [~ rep ct add3]] Duplex renal arterial Doppler DUPLEX RENAL ARTERY CLINICAL HISTORY: hypertension hypertension TECHNIQUE: Doppler ultrasound COMPARISON STUDY: None FINDINGS: Nondiagnostic study. Renal arteries could not be diagnostically evaluated due to overlying bowel content and patient body habitus IMPRESSION: Nondiagnostic exam due to compromised visibility [~ rep ct add3]] CHEST 2 VIEWS ROUTINE CLINICAL HISTORY: pneumonia COMPARISON STUDY: 07/21/2016 FINDINGS: The heart is enlarged. There are old left-sided rib fractures. There is evidence of multiple prior vertebroplasty's. There is no overt failure. There are linear basilar opacities, likely atelectatic. There is no lobar consolidation. There are no pleural effusions.[ IMPRESSION: Cardiomegaly and bibasilar atelectatic change. Assessment and Plan Possible pneumonia/ Bronchiectasis - MRSA swab positive - Continue Zosyn and vancomycin, will dc tomorrow - Continue guaifenesin 600 mg BID, Dornase - Pulm consulted- appreciate input - Switched to PO Prednisone 10 mg - weaning down , is at 5 mg prednisone at home - Continue on the Advair 250/50 one inh BID, Spiriva 1 inh daily and DuoNeb q4h and duoneb q4h as needed CXR today: Cardiomegaly and bibasilar atelectatic change. HTN: - Home Meds hydralazine 50 mgh q8h, clonidine 0.3 mg BID, Coreg 25 mg BID - h/o right sided MARITZA s/p stenting 3 years ago - renal US ordered- non diagnostic exam due to decreased visibility - Will add Norvasc 10 mg QAM - hydralazine 20 mg IV q6h PRN - Monitor BP nasal bleeding- resolved likely sec to dry nasal mucosa - ocean nasal spray Chronic kidney disease. - Creatinine at 1.5 from 1.9 on admission Venous insufficiency. - compression stockings Severe refractory osteoporosis: - Continue vitamin D. - Prolia Hyperparathyroidism: - Continue vitamin D supplementation. Chronic pain - continue Dilaudid , Baclofen, methadone Chronic constipation - MiraLAX 17 grams daily Deconditioning: - PT/OT FULL Code DVT Prophylaxis: Lovenox Resident Physician Supervision Note: I was present with Dr. Fischer during the history and exam. I discussed the case with the resident and agree with the findings and plan as documented in the note. Any exceptions or clarifications are listed here: I saw and examined this patient with Dr. Fischer on 07/28/2016, although was not able to sign her note until 07/29/2016. Documented By: Dashawn Huynh
[2016-07-28] MEDS: ENOXAPARIN 30 MG/0.3 ML SYR SQ SCH (21:40)
[2016-07-28] MEDS: CLONIDINE HCL 0.1 MG TAB PO SCH (21:41)
[2016-07-28] MEDS: LATANOPROST 0.005% OP SOLN 2.5 ML BTL OPR SCH (21:47)
[2016-07-28] MEDS: ZOLPIDEM TARTRATE 10 MG TAB PO SCH (23:21)
[2016-07-29] VITALS (12 sets, daily range): BP systolic 137–181; BP diastolic 79–97; PULSE 64–76; TEMP 36.5–37; O2SAT 94–97
[2016-07-29] MEDS: ALBUT/IPRATROP 3MG/0.5MG NEB 3 ML VIAL INH SCH ×5 (03:33→19:28)
[2016-07-29] MEDS: SUCRALFATE 1 GM/10 ML UDC PO SCH ×4 (06:18→21:08)
[2016-07-29 06:27] LABS: CREATININE 1.2 mg/dl (0.60-1.20)
[2016-07-29] MEDS ORDERED: NURSING DECISION MEDICATION ORDER SCH (07:00)
[2016-07-29] MEDS ORDERED: EUCERIN CR 120 GM JAR EXT PRN (07:15)
[2016-07-29] MEDS: DORNASE ALFA (2500U) 2.5MG/2.5ML INH SCH ×2 (07:19→19:28)
[2016-07-29 07:42] LABS: MEAN CELL VOLUME 92.4 fL (80-100); MEAN CORPUSCULAR HEMOGLOBIN 30.4 pg (25-34); MEAN CORPUSCULAR HGB CONC 32.9 g/dl (32-36); MEAN PLATELET VOLUME 11.2 fL (7.4-10.4); PLATELET COUNT 238 K/uL (130-400); RED BLOOD COUNT 3.68 M/uL (4.2-5.4)
[2016-07-29] MEDS: HydrALAZINE HCL 20 MG/ML VIAL IV. PRN (08:17)
[2016-07-29] MEDS: ALLOPURINOL 100 MG TAB PO SCH ×2 (08:55→21:08)
[2016-07-29] MEDS: ERGOCALCIFEROL 50,000 INTER.UNIT CAP PO SCH (08:55)
[2016-07-29] MEDS: BACLOFEN 10 MG TAB PO SCH ×3 (08:56→21:07)
[2016-07-29] MEDS: FERROUS SULFATE 325 MG TAB PO SCH (08:56)
[2016-07-29] MEDS: AMLODIPINE BESYLATE 5 MG TAB PO SCH (08:56)
[2016-07-29] MEDS: CHOLECALCIFEROL 1000 INTER.UNIT TAB PO SCH (08:56)
[2016-07-29] MEDS: MULTIVITAMIN TAB PO SCH (08:56)
[2016-07-29] MEDS: GUAIFENESIN 600 MG TABCR PO SCH ×2 (08:56→21:18)
[2016-07-29] MEDS: CLONIDINE HCL 0.1 MG TAB PO SCH ×2 (08:56→21:06)
[2016-07-29] MEDS: CARVEDILOL 25 MG TAB PO SCH ×2 (08:56→21:07)
[2016-07-29] MEDS: PANTOprazole SOD 40 MG TAB PO SCH ×2 (08:57→21:05)
[2016-07-29] MEDS: HYDROmorphone HCL 2 MG TAB PO SCH ×2 (08:57→21:12)
[2016-07-29] MEDS: TIOTROPIUM BROMIDE 5 PUFF/90 MCG INH INH SCH (08:57)
[2016-07-29] MEDS: METHADONE HCL 10 MG TAB PO SCH ×3 (08:58→21:06)
[2016-07-29] MEDS: FLUTICASONE/SALMETEROL 250/50 (ADVAIR) 14 PUFF/1 INHALER INH SCH ×2 (08:58→21:05)
[2016-07-29] MEDS: POLYETHYLENE (MIRALAX) 17 GM PACK PO SCH (08:59)
[2016-07-29] MEDS ORDERED: VANCOMYCIN TROUGH ONE (10:30)
[2016-07-29] MEDS: LORAZEPAM 1 MG TAB PO PRN (11:29)
[2016-07-29] MEDS: VANCOMYCIN INJ 600 MG in SODIUM CHLORIDE 0.9% 250ML 250 ML IV SCH (11:30)
[2016-07-29] MEDS ORDERED: IPRASOL4 INH (11:44)
[2016-07-29] MEDS ORDERED: ALBINS INH (11:44)
[2016-07-29] MEDS ORDERED: CTP1 PO (11:44)
[2016-07-29] MEDS ORDERED: AMLO-114 PO (11:48)
--- NOTE | 2016-07-29 11:48 | Discharge Instructions ---
Discharge Instructions Admission Reason for Admission: Pneumonia - Failing Treatment Discharge Discharge Diagnosis / Problem: Pneumonia/bronchiectasis, HTN Discharge Goals Goal(s): Decrease discomfort, Improve function Activity Recommendations Activity Limitations: resume your previous activity . Instructions / Follow-Up Instructions / Follow-Up Possible pneumonia/ Bronchiectasis received Zosyn and vancomycin for 7 days - Continue guaifenesin 600 mg BID, Dornase - Continue 5 mg prednisone daily - Continue Advair 250/50 one inh BID, Spiriva 1 inh daily and DuoNeb q4h and duoneb q4h as needed, albuterol as needed HTN: -hydralazine 50 mgh q8h, clonidine 0.4 mg BID( was increased from 0.3), Coreg 25 mg BID -added amlodipine 10 mg daily Severe refractory osteoporosis: - Continue vitamin D. - Prolia Hyperparathyroidism: - Continue vitamin D supplementation. Chronic pain - continue Dilaudid , Baclofen, methadone Chronic constipation - MiraLAX 17 grams daily Current Hospital Diet Patient's current hospital diet: Regular Diet Discharge Diet Recommended Diet: Regular Diet Pending Studies Studies pending at discharge: no Laboratory Results Lipid Panel Test 07/28/16 05:47 Range/Units Triglycerides Level 146 0-150 mg/dl Cholesterol Level 243 H 0-200 mg/dl HDL Cholesterol 73 mg/dl Cholesterol/HDL Ratio 3.3 LDL Cholesterol, Calculated 141 mg/dl Medical Emergencies . Who to Call and When: Medical Emergencies: If at any time you feel your situation is an emergency, please call 911 immediately. . Non-Emergent Contact Non-Emergency issues call your: Primary Care Provider . . "Provider Documentation" section prepared by Rita Fischer. VTE Core Measure Inpt VTE Proph given/why not?: Enoxaparin (Lovenox)SQ
--- NOTE | 2016-07-29 12:02 | Discharge Summary ---
Discharge Summary Date of Service Jul 29, 2016. (Rita Fischer MD) Discharge Summary Admission Date: Jul 21, 2016 at 18:22 Discharge Date: Jul 29, 2016 Principal Diagnosis: Respiratory distress Problems/Secondary Diagnoses: (1) Chronic Kidney Disease, Stage Iii (Moderate) Status: Chronic (2) Crystal arthritis Status: Chronic (3) Duodenal bulb ulcer Status: Chronic (4) Gout Status: Chronic (5) Hyperlipidemia Nec/Nos Status: Chronic (6) Hypertension Status: Chronic (7) Lumbar compression fracture Status: Chronic (8) Opiate use Status: Chronic (9) Osteoporosis Status: Chronic (10) Right renal artery stenosis Status: Chronic (11) Secondary hyperparathyroidism Status: Chronic Immunizations: Have You Had Influenza Vaccine: Yes Influenza Vaccine Date: Mar 01, 2013 History of Tetanus Vaccine?: Yes Tetanus Immunization Date: Dec 18, 2009 History of Pneumococcal: Yes Pneumococcal Date: Jun 01, 2012 History of Hepatitis B Vaccine: No Consultations: Pulmonology (Rita Fischer MD) Medication Reconciliation New Medications: Amlodipine (Norvasc) 10 Mg Tab 10 MG PO DAILY for 15 Days, TAB Albuterol Sulf (Albuterol Sulfate) 2.5 Mg/3 Ml Nebu 2.5 MG INH Q6R PRN for sob/wheeze for 7 Days Clonidine HCl (Clonidine HCl) 0.1 Mg Tab 0.4 MG PO BID for 15 Days, TAB Ipratropium-Albuterol (Duoneb) 3 Ml Nebu 3 ML INH Q4R for 7 Days Continued Medications: Acetaminophen (Tylenol) 325 Mg Tab 650 MG PO Q6 PRN for Pain or Fever, TAB Allopurinol (Zyloprim) 100 Mg Tab 100 MG PO BID, TAB Baclofen (Lioresal) 10 Mg Tab 10 MG PO TID, TAB Carvedilol (Carvedilol) 25 Mg Tab 25 MG PO BID, #60 TAB 3 Refills Cholecalciferol (Vitamin D) 1,000 Inter.unit Tab 4000 INTER.UNIT PO DAILY, TAB Epinephrine (Epipen) 0.3 Mg/0.3 Ml Inj 0.3 MG IM UD PRN for ALLERGIC REACTION Ergocalciferol (Drisdol) 50,000 Unit Cap 46675 INTER.UNIT PO WEEKLY MONDAY Ferrous Sulfate (Kp Ferrous Sulfate) 325 Mg Tab 325 MG PO DAILY Fluticasone Prop/Salmeterol (Advair Diskus 250-50 Mcg/Dose) 14 Puff/1 Inhaler Aerp 1 PUFF INH BID, #1 Guaifenesin Ext Rel (Mucinex Ext Rel) 600 Mg Tab 600 MG PO BID, TAB Hydralazine Hcl (Apresoline) 50 Mg Tab 50 MG PO Q8H, TAB Hydromorphone Hcl (Dilaudid) 2 Mg Tab 2 MG PO BID, TAB Hydromorphone Hcl (Dilaudid) 4 Mg Tab 4 MG PO BID, TAB Latanoprost 0.005% Oph (Xalatan 0.005% Oph) Soln 1 DROP OPR HS Lorazepam (Ativan) 0.5 Mg Tab 0.5 MG PO TID, #30 TAB 0 Refills Methadone Hcl (Dolophine) 10 Mg Tab 30 MG PO TID for 30 Days, #270 TAB 0 Refills Multivitamin (Multivitamin) Tab 1 TAB PO DAILY, TAB Pantoprazole (Protonix) 40 Mg Tab 40 MG PO BID, #30 TAB Polyethylene Glycol 3350 (Miralax) 1 Pow Pow 17 GM PO DAILY PRN for Constipation, #527 GM Prednisone (Prednisone) 1 Mg Tab 5 MG PO DAILY, TAB Sucralfate (Carafate) 1 Gm/10 Ml Qi 10 ML PO ACHS, ML Tiotropium [place] (Spiriva Handihaler) 18 Mcg/ Aerp 1 CAP INH DAILY, INHALER Zolpidem Tartrate (Ambien) 10 Mg Tab 10 MG PO HS Discontinued Medications: Clonidine Hcl (Catapres) 0.3 Mg Tab 0.3 MG PO BID, TAB Linezolid (Zyvox) 600 Mg Tab 600 MG PO BID, #8 TAB 0 Refills Discharge Exam doing better. denies fevers/chills, SOB, her congestion is also improved Review of Systems: Constitutional: No chills, No fever Eyes: No worsening of vision ENT: No hearing loss Respiratory: + problem reported (congestion in lungs), No cough, No sputum Abdomen: No nausea, No pain, No vomiting Genitourinary - Female: No dysuria Neurologic: No memory loss, No paralysis Psychiatric: No depression symptoms Physical Exam: General Appearance: WD/WN, no apparent distress Eyes: normal inspection ENT: normal ENT inspection, hearing grossly normal Neck: supple Respiratory/Chest: chest non-tender, + decreased breath sounds Cardiovascular: regular rate, rhythm, no edema Abdomen / GI: normal bowel sounds, non tender, soft Extremities: no pedal edema Neurologic/Psychiatric: alert, normal mood/affect, oriented x 3 Skin: normal color (Rita Fischer MD) Hospital Course The patient is a very pleasant 70-year-old female, She in early May had been on Rocephin for pneumonia, was failing transition to doxycycline By June 23 she appeared to have pneumonia again after improving , was treated presumptively with conservative care after the x-ray did not necessarily confirm an infiltrate, but then on June 30 she had a choking event during breakfast, having an aspiration event with rales consistent with an early pneumonitis at least or may be an aspiration pneumonia and was treated with cefdinir and Flagyl. She improved over the course of about a week, but then about 10 days after that appeared to have more of a COPD exacerbation where she had diffuse bilateral wheezing, thick sputum and really felt very fatigued. Her chest x-ray then showed no infiltrate. It did show some basilar atelectasis. She was treated then with steroids, oxygen supportive care, nebs and doxycycline to cover for atypicals, but she appeared very fatigued and her lungs sounded extremely rhonchorous, so she was directly admitted for ongoing treatment given everything that she has failed. She has not had fevers, chills or sweats. She does have a cough, previously it was a tannish yellow sputum, but now she notes that she really can even bring it up and at timed she feels like she is choking or going to drown on her sputum, but it is nonproductive. She notes it feels large and thick "like a hairball" and these episodes certainly put her into rather significant respiratory distress and generally she feels weak and run-down. Possible pneumonia/ Bronchiectasis: had leucocytosis today up to 25 k which is likely sec to steroid use. She clinically appears well and has been afebrile maintaining good saturation and recent CXR did not reveal any signs of pneumonia - Received Zosyn and vancomycin for 7 days and were stopped - Continue guaifenesin 600 mg BID, Dornase - She was initially on IV steroids which was then switched to PO steroids and weaned down to her home dose of 5 mg daily - Continue on the Advair 250/50 one inh BID, Spiriva 1 inh daily and DuoNeb q4h and duoneb q4h as needed encourage incentive spirometry HTN: Had elevated BP during her entire stay in the hospital - Home Meds hydralazine 50 mgh q8h, clonidine 0.3 mg BID, Coreg 25 mg BID were continued along with hydralazine 20 mg IV q6h PRN . Norvasc 10 mg QAM was added and she clonidine was increased to 0.4 mg BID - considering h/o right sided MARITZA s/p stenting 3 years ago, a renal US was ordered but was a non diagnostic exam due to decreased visibility she has had issues with BP during previous hospitalizations when she was prednisone, she is now tapered down to her home dose . Monitor BP and consider testing for MARITZA barry left and/or occlusion of stent on right Chronic kidney disease. - Creatinine at 1.5 from 1.9 on admission Venous insufficiency. - compression stockings Severe refractory osteoporosis: - Continue vitamin D. - Prolia Hyperparathyroidism: - Continue vitamin D supplementation. Chronic pain - continue Dilaudid , Baclofen, methadone Chronic constipation - MiraLAX 17 grams daily Total Time Spent: Greater than 30 minutes This includes examination of the patient, discharge planning, medication reconciliation, and communication with other providers. (Rita Fischer MD) Resident Physician Supervision Note: I was present with Dr. Fischer during the history and exam. I discussed the case with the resident and agree with the findings and plan as documented in the note. Any exceptions or clarifications are listed here: Upon examination, the patient without complaints. She states overall that she was feeling better. She remains hypertensive although this is similar to her previous admissions. It seems that this her blood pressure runs better at the detention as compared to here in the hospital. Per discussions with the accepting physician regarding the issue of the blood pressure and this will be monitored closely after transfer. Documented By: Dashawn Huynh (Dashawn Huynh.,D.O.) Discharge Instructions Please refer to the electronic Patient Visit Report (Discharge Instructions) for additional information. (Rita Fischer MD)
[2016-07-29] MEDS: ENOXAPARIN 30 MG/0.3 ML SYR SQ SCH (21:08)
[2016-07-29] MEDS: ZOLPIDEM TARTRATE 10 MG TAB PO SCH (21:12)
[2016-07-29] MEDS: LATANOPROST 0.005% OP SOLN 2.5 ML BTL OPR SCH (21:12)
[2016-07-30] VITALS (10 sets, daily range): BP systolic 155–191; BP diastolic 82–99; PULSE 66–80; TEMP 36.5–37.1; O2SAT 9–96
[2016-07-30] MEDS: ALBUT/IPRATROP 3MG/0.5MG NEB 3 ML VIAL INH SCH ×7 (03:20→23:09)
[2016-07-30 06:27] LABS: HEMATOCRIT 33.6 % (37-47); MEAN CELL VOLUME 92.6 fL (80-100); MEAN CORPUSCULAR HEMOGLOBIN 30.3 pg (25-34); MEAN CORPUSCULAR HGB CONC 32.7 g/dl (32-36); MEAN PLATELET VOLUME 11.2 fL (7.4-10.4); PLATELET COUNT 221 K/uL (130-400); RED BLOOD COUNT 3.63 M/uL (4.2-5.4); WHITE BLOOD COUNT 18.29 K/uL (4.8-10.8)
[2016-07-30] MEDS: HydrALAZINE HCL 20 MG/ML VIAL IV. PRN (06:31)
[2016-07-30] MEDS: SUCRALFATE 1 GM/10 ML UDC PO SCH ×4 (06:32→21:36)
[2016-07-30] MEDS: LORAZEPAM 1 MG TAB PO PRN (06:33)
[2016-07-30 07:00] LABS: CREATININE 1.3 mg/dl (0.60-1.20)
[2016-07-30] MEDS: DORNASE ALFA (2500U) 2.5MG/2.5ML INH SCH ×2 (07:01→20:10)
[2016-07-30] MEDS: ALLOPURINOL 100 MG TAB PO SCH ×2 (07:50→21:35)
[2016-07-30] MEDS: FLUTICASONE/SALMETEROL 250/50 (ADVAIR) 14 PUFF/1 INHALER INH SCH ×2 (07:50→21:33)
[2016-07-30] MEDS: MULTIVITAMIN TAB PO SCH (07:50)
[2016-07-30] MEDS: CHOLECALCIFEROL 1000 INTER.UNIT TAB PO SCH (07:50)
[2016-07-30] MEDS: GUAIFENESIN 600 MG TABCR PO SCH ×2 (07:50→21:35)
[2016-07-30] MEDS: TIOTROPIUM BROMIDE 5 PUFF/90 MCG INH INH SCH (07:50)
[2016-07-30] MEDS: BACLOFEN 10 MG TAB PO SCH ×3 (07:51→21:35)
[2016-07-30] MEDS: PANTOprazole SOD 40 MG TAB PO SCH ×2 (07:51→21:38)
[2016-07-30] MEDS: AMLODIPINE BESYLATE 5 MG TAB PO SCH (07:51)
[2016-07-30] MEDS: POLYETHYLENE (MIRALAX) 17 GM PACK PO SCH (07:51)
[2016-07-30] MEDS: CARVEDILOL 25 MG TAB PO SCH ×2 (07:52→21:37)
[2016-07-30] MEDS: FERROUS SULFATE 325 MG TAB PO SCH (07:52)
[2016-07-30] MEDS: HYDROmorphone HCL 2 MG TAB PO SCH ×2 (07:59→21:38)
[2016-07-30] MEDS: METHADONE HCL 10 MG TAB PO SCH ×3 (07:59→21:40)
[2016-07-30] MEDS: CLONIDINE HCL 0.1 MG TAB PO SCH ×2 (08:00→21:35)
--- NOTE | 2016-07-30 10:01 | Progress Note ---
Subjective Date of Service: Jul 30, 2016. Subjective Pt evaluation today including: conversation w/ patient, chart review, lab review, review of inpatient medication list Pain: none reported PO Intake: excellent 70-year-old female who was admitted to the hospital with pneumonia now on hospital day #10 was to be discharged yesterday to return to the [facility] but her discharge was postponed when there was no transport vehicle available due to the weather. This morning I was called to the floor just prior to her 9:30 AM planned discharge today when the patient refused discharge. The patient was concerned that her elevated blood pressures this morning could not be treated appropriately at the [facility]. I reassured her that the medications available here would also be available to [facility] and we have been in contact with the [facility] physician to discuss titration of her blood pressure medicines. Despite this, she refused to be discharged. The patient has been noted to have elevated blood pressures during her hospitalization; along the same lines she showed elevated blood pressures during her previous hospitalization but these reportedly improved when she returned to the [facility]. Although unsubstantiated, there have been reports from nursing (who have had the patient on prior admissions) that the patient had been pocketing blood pressure pills in an effort to remain in the hospital. I have not witnessed this although it must be in the differential of her labile blood pressures. Problem List Medical Problems: (1) Bilateral pneumonia Status: Acute (2) CHF (congestive heart failure) Status: Acute (3) Chronic Kidney Disease, Stage Iii (Moderate) Status: Chronic (4) COPD exacerbation Status: Acute (5) Crystal arthritis Status: Chronic (6) Duodenal bulb ulcer Status: Chronic (7) Failure of outpatient treatment Status: Acute (8) Failure of outpatient treatment Status: Acute (9) Gout Status: Chronic (10) Hyperlipidemia Nec/Nos Status: Chronic (11) Hypertension Status: Chronic (12) Hypoxemia Status: Acute (13) Hypoxia Status: Acute (14) Hypoxia Status: Acute (15) Hypoxia Status: Acute (16) Lumbar compression fracture Status: Chronic (17) Opiate use Status: Chronic (18) Osteoporosis Status: Chronic (19) Peripheral edema Status: Acute (20) Pneumonia Status: Acute (21) Pneumonia involving right lung Status: Acute (22) Respiratory acidosis Status: Acute (23) Respiratory distress Status: Acute (24) Right renal artery stenosis Status: Chronic (25) Secondary hyperparathyroidism Status: Chronic (26) UTI (urinary tract infection) Status: Acute Review of Systems Constitutional: No chills, No fever Respiratory: + sputum, No cough, No dyspnea at rest, No shortness of breath, No wheezing Cardiac: No chest pain Abdomen: No nausea, No pain Neurologic: No memory loss, No numbness/tingling Psychiatric: + anxiety Endo: + fatigue Medications Medications Administered Medications (Trade) Dose Ordered Sig/Estephania Route Start Time Stop Time Status Last Admin Dose Admin Enoxaparin Sodium (Lovenox Inj) 30 mg Q24H SQ 07/21/16 22:00 08/20/16 21:59 07/29/16 21:08 30 MG Acetaminophen (Tylenol Tab) 650 mg Q4H PRN PO 07/21/16 18:45 08/20/16 18:44 07/23/16 12:36 650 MG Magnesium Hydroxide (Milk Of Magnesia Susp) 30 ml Q6H PRN PO 07/21/16 18:45 08/20/16 18:44 07/23/16 17:01 30 ML Ondansetron HCl (Zofran Inj) 4 mg Q6H PRN IV 07/21/16 18:45 08/20/16 18:44 07/26/16 21:53 4 MG Albuterol/ Ipratropium 3 ml 3 ml Q4R INH 07/21/16 20:00 08/20/16 19:59 07/27/16 08:05 3 ML Methylprednisolone Sodium Succinate/ Syringe (Solu-Medrol IV/ Syringe) 1.28 ml @ 1.5 mls/min Q8H IV 07/21/16 20:00 07/23/16 13:37 DC 07/23/16 12:13 1.5 MLS/MIN Lorazepam 1 mg 1 mg Q6 PRN PO 07/21/16 19:45 08/20/16 19:44 07/30/16 06:33 1 MG Vancomycin HCl 1500 mg/Sodium Chloride 530 ml @ 200 mls/hr NOW ONCE IV 07/21/16 20:15 07/21/16 22:53 DC 07/21/16 21:25 200 MLS/HR Piperacillin Sod/ Tazobactam Sod/ Dextrose (Zosyn Iv/D5 100ml) 115 ml @ 28.75 mls/ hr Q12H IV 07/22/16 02:00 07/24/16 12:21 DC 07/24/16 02:03 28.75 MLS/HR Allopurinol (Zyloprim Tab) 100 mg BID PO 07/22/16 08:00 08/21/16 07:59 07/30/16 07:50 100 MG Baclofen (Lioresal Tab) 10 mg TID PO 07/22/16 08:00 08/21/16 07:59 07/30/16 07:51 10 MG Carvedilol (Coreg Tab) 25 mg BID PO 07/22/16 08:00 08/21/16 07:59 07/30/16 07:52 25 MG Cholecalciferol (Vitamin D Tab) 4,000 inter.unit DAILY PO 07/22/16 08:00 08/21/16 07:59 07/30/16 07:50 4,000 INTER.UNIT Clonidine HCl (Catapres Tab) 0.3 mg BID PO 07/22/16 08:00 07/28/16 17:57 DC 07/28/16 07:33 0.3 MG Ergocalciferol (Vitamin D Cap) 50,000 interunit Fr@0800 PO 07/22/16 08:00 08/21/16 07:59 07/29/16 08:55 50,000 INTERUNIT Salmeterol Xinafoate/ Fluticasone (Advair Diskus 250/50 Inh) 1 puff BID INH 07/22/16 08:00 08/21/16 07:59 07/30/16 07:50 1 PUFF Guaifenesin (Mucinex Contr Rel Tab) 600 mg BID PO 07/22/16 08:00 08/21/16 07:59 07/30/16 07:50 600 MG Hydralazine HCl (Apresoline Tab) 50 mg Q8H PO 07/21/16 22:45 08/20/16 22:44 07/30/16 06:32 50 MG Hydromorphone HCl (Dilaudid Tab) 6 mg BID PO 07/22/16 08:00 08/05/16 07:59 07/30/16 07:59 6 MG Latanoprost (Xalatan Oph Soln) 1 drops HS OPR 07/22/16 21:00 08/21/16 20:59 07/29/16 21:12 1 DROPS Methadone HCl (Dolophine Tab) 30 mg TID PO 07/22/16 08:00 08/05/16 07:59 07/30/16 07:59 30 MG Multivitamins (Multivitamin Tab) 1 tab DAILY PO 07/22/16 08:00 08/21/16 07:59 07/30/16 07:50 1 TAB Pantoprazole Sodium (Protonix Tab) 40 mg BID PO 07/22/16 08:00 08/21/16 07:59 07/30/16 07:51 40 MG Prednisone (PredniSONE TAB) 5 mg DAILY PO 07/22/16 08:00 07/25/16 15:58 DC 07/25/16 08:47 5 MG Sucralfate (Carafate Susp) 1 gm ACHS PO 07/22/16 06:30 08/21/16 06:29 07/30/16 06:32 1 GM Tiotropium [place] (Spiriva Handihaler Inhaler) 1 puff DAILY INH 07/22/16 08:00 08/21/16 07:59 07/30/16 07:50 1 PUFF Zolpidem Tartrate (Ambien Tab) 10 mg HS PO 07/22/16 21:00 08/21/16 20:59 07/29/16 21:12 10 MG Ferrous Sulfate (Feosol Tab) 325 mg DAILY PO 07/22/16 08:00 08/21/16 07:59 07/30/16 07:52 325 MG Polyethylene 17 gm 17 gm DAILY PO 07/22/16 08:00 08/21/16 07:59 07/28/16 10:19 17 GM Sodium Chloride (1/2 Nss 1000ml) 1,000 ml @ 70 mls/hr [id number] IV 07/21/16 22:45 07/23/16 03:19 DC 07/22/16 12:21 70 MLS/HR Zolpidem Tartrate (Ambien Tab) 10 mg STK-MED ONCE .ROUTE 07/21/16 23:26 07/21/16 23:28 DC 07/21/16 23:51 10 MG Dornase Dustin 2.5 ml 2.5 ml BIDR INH 07/22/16 20:00 08/21/16 19:59 07/27/16 08:05 2.5 ML Vancomycin HCl/ Sodium Chloride (Vancomycin Inj/ Nss 250ml) 262 ml @ 125 mls/hr DAILY@1100 IV 07/22/16 11:30 07/29/16 11:29 DC 07/29/16 11:30 125 MLS/HR Hydralazine HCl (HydrALAZINE INJ) 20 mg STK-MED ONCE .ROUTE 07/23/16 12:51 07/23/16 12:53 DC 07/23/16 12:55 20 MG Hydralazine HCl 20 mg 20 mg Q6H PRN IV. 07/23/16 13:15 08/22/16 13:14 07/30/16 06:31 20 MG Methylprednisolone Sodium Succinate 40 mg/Syringe 0.64 ml @ 1.5 mls/min Q12H IV 07/24/16 04:00 07/24/16 10:02 DC 07/24/16 04:06 1.5 MLS/MIN Lorazepam 1 mg/ Syringe 1 ml @ 1 mls/min NOW STAT IV 07/24/16 04:26 07/24/16 04:27 DC 07/24/16 04:50 1 MLS/MIN Methylprednisolone Sodium Succinate 40 mg/Syringe 0.64 ml @ 1.5 mls/min DAILY IV 07/25/16 08:00 07/25/16 14:18 DC 07/25/16 08:48 1.5 MLS/MIN Piperacillin Sod/ Tazobactam Sod/ Dextrose (Zosyn Iv/D5 100ml) 115 ml @ 28.75 mls/ hr Q8@0600,1400,2200 IV 07/24/16 14:00 07/28/16 21:00 DC 07/28/16 13:56 28.75 MLS/HR Amlodipine Besylate (Norvasc Tab) 5 mg NOW STAT PO 07/24/16 22:59 07/24/16 23:00 DC 07/24/16 23:35 5 MG Amlodipine Besylate (Norvasc Tab) 5 mg QAM PO 07/26/16 08:00 07/26/16 08:00 DC 07/25/16 16:31 5 MG Prednisone (PredniSONE TAB) 20 mg DAILY PO 07/26/16 08:00 07/28/16 07:59 DC 07/27/16 22:11 20 MG Amlodipine Besylate (Norvasc Tab) 10 mg QAM PO 07/27/16 08:00 08/26/16 07:59 07/30/16 07:51 10 MG Amlodipine Besylate (Norvasc Tab) 10 mg 0630 ONCE PO 07/26/16 06:30 07/26/16 06:31 DC 07/26/16 06:10 10 MG Sodium Chloride ([place] Nasal [place]) 2 sprays 1615 ONCE NA 07/27/16 16:15 07/27/16 16:16 DC 07/27/16 17:13 2 SPRAYS Prednisone (PredniSONE TAB) 10 mg DAILY PO 07/28/16 08:00 07/29/16 08:01 DC 07/29/16 08:58 10 MG Prednisone (PredniSONE TAB) 5 mg DAILY PO 07/30/16 08:00 08/29/16 07:59 07/30/16 07:51 5 MG Clonidine HCl (Catapres Tab) 0.4 mg BID PO 07/28/16 20:00 08/27/16 19:59 07/30/16 08:00 0.4 MG Multi-Ingredient Ointment (Eucerin Unscented Cr) 1 appln BID PRN EXT 07/29/16 07:15 08/28/16 07:14 07/29/16 14:36 1 APPLN Objective Vital Signs Date Time Temp Pulse Resp B/P Pulse Ox O2 Delivery O2 Flow Rate FiO2 07/30/16 08:18 36.6 69 22 173/88 95 Nasal Cannula 3.0 07/30/16 08:00 36.5 78 20 155/83 94 Nasal Cannula 3.0 07/30/16 07:14 36.8 69 18 169/91 93 Nasal Cannula 3.0 07/30/16 06:15 66 191/99 07/30/16 00:45 Nasal Cannula 3.0 07/29/16 23:55 74 137/89 07/29/16 22:25 37.0 72 18 176/91 94 Nasal Cannula 3.0 07/29/16 21:30 71 169/81 07/29/16 16:00 Nasal Cannula 3.0 07/29/16 14:39 36.6 69 18 162/89 96 Nasal Cannula 3.0 07/29/16 13:46 36.5 70 24 97 Nasal Cannula 07/29/16 12:45 70 159/79 07/29/16 11:15 73 176/89 Physical Exam General Appearance: WD/WN, no apparent distress Eyes: normal inspection ENT: hearing grossly normal Neck: supple Respiratory/Chest: chest non-tender Cardiovascular: regular rate, rhythm, no edema Abdomen: non tender, soft Extremities: normal range of motion, non-tender, normal inspection Neurologic/Psychiatric: no motor/sensory deficits, normal mood/affect, oriented x 3 Skin: normal color Laboratory Results Last 24 Hours Test 07/30/16 06:13 White Blood Count 18.29 K/uL Red Blood Count 3.63 M/uL Hemoglobin 11.0 g/dL Hematocrit 33.6 % Mean Corpuscular Volume 92.6 fL Mean Corpuscular Hemoglobin 30.3 pg Mean Corpuscular Hemoglobin Concent 32.7 g/dl RDW Standard Deviation 52.6 fL RDW Coefficient of Variation 15.7 % Platelet Count 221 K/uL Mean Platelet Volume 11.2 fL Creatinine 1.30 mg/dl Est Creatinine Clear Calc Drug Dose 23.0 ml/min Estimated GFR () 48.8 Estimated GFR (Non- 42.1 Assessment and Plan HTN Labile control, somewhat similar to her last hospitalization. Interestingly, in reviewing outpatient records, the patient's systolic blood pressure was 116 at her nephrology follow-up in May of this year. There is the issue of the renal artery stenosis, however previous attempts and one attempt this admission of arterial dopplers were inconclusive due to body habitus. Previous discussion of a CTA/MRA was thought not be possible due to her CKD. Her previous outpatient regimen included Aldactone (though there was some difficulty with hyperkalemia), oral hydralazine, Coreg, and nifedipine XL. In reviewing the hospital records, it appears as if she's been off the diuretic due to an elevated creatinine upon this admission. For today: Add Lasix 20 mg by mouth daily. Change hydralazine to 50 mg by mouth 3 times a day. Continue Coreg 25 mg by mouth twice a day. Continue Norvasc 10 mg by mouth daily Continue clonidine 0.4 mg by mouth twice a day. BMP in a.m. We'll have nursing witness all medication administration Possible pneumonia/ Bronchiectasis Complete 10 day course of Zosyn and vancomycin secondary to positive MRSA swab. Chest x-ray is clear. Symptomatically she has improved. Tinea current care Chronic kidney disease Monitor BUN/creatinine with above changes. If her blood pressure remains resistant to the above, may need to consider more advanced imaging with regards to the renal arteries. Venous insufficiency. compression stockings Severe refractory osteoporosis Continue vitamin D. Prolia Hyperparathyroidism Continue vitamin D supplementation. Chronic pain continue Dilaudid , Baclofen, methadone DVT Prophylaxis: Lovenox
[2016-07-30] MEDS: FUROSEMIDE 20 MG TAB PO SCH (11:27)
[2016-07-30] MEDS ORDERED: NURSING VERBAL MED ORDER ONE (14:00)
[2016-07-30] MEDS: ENOXAPARIN 30 MG/0.3 ML SYR SQ SCH (21:41)
[2016-07-30] MEDS: LATANOPROST 0.005% OP SOLN 2.5 ML BTL OPR SCH (22:44)
[2016-07-30] MEDS: ZOLPIDEM TARTRATE 10 MG TAB PO SCH (22:45)
[2016-07-31] VITALS (8 sets, daily range): BP systolic 122–159; BP diastolic 74–93; PULSE 63–94; TEMP 36.4–36.8; O2SAT 64–96
[2016-07-31] MEDS: ALBUT/IPRATROP 3MG/0.5MG NEB 3 ML VIAL INH SCH ×6 (03:41→23:51)
[2016-07-31] MEDS: SUCRALFATE 1 GM/10 ML UDC PO SCH ×4 (06:35→20:48)
[2016-07-31 06:37] LABS: BUN/CREATININE RATIO 22.5 (10-20); CREATININE 1.4 mg/dl (0.60-1.20); POTASSIUM 3.8 mmol/L (3.5-5.1)
[2016-07-31] MEDS: DORNASE ALFA (2500U) 2.5MG/2.5ML INH SCH ×2 (07:11→19:35)
[2016-07-31] MEDS: TIOTROPIUM BROMIDE 5 PUFF/90 MCG INH INH SCH (08:38)
[2016-07-31] MEDS: FLUTICASONE/SALMETEROL 250/50 (ADVAIR) 14 PUFF/1 INHALER INH SCH ×2 (08:38→20:44)
[2016-07-31] MEDS: GUAIFENESIN 600 MG TABCR PO SCH ×2 (08:39→20:56)
[2016-07-31] MEDS: CLONIDINE HCL 0.1 MG TAB PO SCH ×2 (08:39→20:54)
[2016-07-31] MEDS: MULTIVITAMIN TAB PO SCH (08:39)
[2016-07-31] MEDS: AMLODIPINE BESYLATE 5 MG TAB PO SCH (08:39)
[2016-07-31] MEDS: CARVEDILOL 25 MG TAB PO SCH ×2 (08:39→20:55)
[2016-07-31] MEDS: PANTOprazole SOD 40 MG TAB PO SCH ×2 (08:40→20:53)
[2016-07-31] MEDS: CHOLECALCIFEROL 1000 INTER.UNIT TAB PO SCH (08:40)
[2016-07-31] MEDS: POLYETHYLENE (MIRALAX) 17 GM PACK PO SCH (08:41)
[2016-07-31] MEDS: FERROUS SULFATE 325 MG TAB PO SCH (08:42)
[2016-07-31] MEDS: FUROSEMIDE 20 MG TAB PO SCH (08:42)
[2016-07-31] MEDS: BACLOFEN 10 MG TAB PO SCH ×3 (08:42→20:56)
[2016-07-31] MEDS: METHADONE HCL 10 MG TAB PO SCH ×3 (08:50→21:06)
[2016-07-31] MEDS: HYDROmorphone HCL 2 MG TAB PO SCH ×2 (08:50→21:07)
[2016-07-31] MEDS: ALLOPURINOL 100 MG TAB PO SCH ×2 (09:14→20:52)
[2016-07-31] MEDS: LORAZEPAM 1 MG TAB PO PRN (14:26)
--- NOTE | 2016-07-31 14:54 | Progress Note ---
Subjective Date of Service: Jul 31, 2016. Subjective Pt evaluation today including: conversation w/ patient, physical exam, chart review, lab review, review of studies, review of inpatient medication list Pain: denies PO Intake: Excellent Voiding: no voiding problems 70-year-old female admitted with pneumonia, completed treatment, remains hospitalized due to elevated blood pressures. Her blood pressures actually the best it has been this afternoon. She complains of increased congestion in the chest. She denies shortness of breath. Problem List Medical Problems: (1) Bilateral pneumonia Status: Acute (2) CHF (congestive heart failure) Status: Acute (3) Chronic Kidney Disease, Stage Iii (Moderate) Status: Chronic (4) COPD exacerbation Status: Acute (5) Crystal arthritis Status: Chronic (6) Duodenal bulb ulcer Status: Chronic (7) Failure of outpatient treatment Status: Acute (8) Failure of outpatient treatment Status: Acute (9) Gout Status: Chronic (10) Hyperlipidemia Nec/Nos Status: Chronic (11) Hypertension Status: Chronic (12) Hypoxemia Status: Acute (13) Hypoxia Status: Acute (14) Hypoxia Status: Acute (15) Hypoxia Status: Acute (16) Lumbar compression fracture Status: Chronic (17) Opiate use Status: Chronic (18) Osteoporosis Status: Chronic (19) Peripheral edema Status: Acute (20) Pneumonia Status: Acute (21) Pneumonia involving right lung Status: Acute (22) Respiratory acidosis Status: Acute (23) Respiratory distress Status: Acute (24) Right renal artery stenosis Status: Chronic (25) Secondary hyperparathyroidism Status: Chronic (26) UTI (urinary tract infection) Status: Acute Review of Systems Constitutional: No chills, No fever Respiratory: + cough, + sputum, No dyspnea on exertion, No shortness of breath , No wheezing Cardiac: No chest pain Abdomen: No nausea, No pain Endo: No fatigue All Other Systems: Reviewed and Negative Objective Vital Signs Date Time Temp Pulse Resp B/P Pulse Ox O2 Delivery O2 Flow Rate FiO2 07/31/16 13:50 36.6 68 18 122/74 93 Nasal Cannula 3.0 68 07/31/16 08:59 36.8 64 18 149/87 95 Nasal Cannula 3.0 07/31/16 08:00 95 Nasal Cannula 3.0 07/31/16 07:11 65 18 95 Nasal Cannula 3.0 07/31/16 00:00 Nasal Cannula 3.0 07/30/16 23:20 37.1 72 18 167/88 9 Nasal Cannula 3.0 07/30/16 21:26 75 157/88 07/30/16 19:05 80 18 96 Nasal Cannula 2.0 07/30/16 15:46 36.9 73 18 156/87 93 Nasal Cannula 3.0 07/30/16 15:30 Nasal Cannula 3.0 Humidified Oxygen Physical Exam General Appearance: WD/WN, no apparent distress Eyes: PERRL ENT: normal ENT inspection, hearing grossly normal Neck: supple, no adenopathy Respiratory/Chest: chest non-tender, lungs clear (coarse transmitted upper airway sounds.), normal breath sounds, no respiratory distress, no accessory muscle use Cardiovascular: regular rate, rhythm Abdomen: non tender, soft, no organomegaly Extremities: non-tender, normal inspection, no pedal edema Neurologic/Psychiatric: no motor/sensory deficits, alert, normal mood/affect, oriented x 3 Skin: normal color Laboratory Results Last 24 Hours Test 07/31/16 05:14 Sodium Level 140 mmol/L Potassium Level 3.8 mmol/L Chloride Level 97 mmol/L Carbon Dioxide Level 35 mmol/L Anion Gap 8.0 mmol/L Blood Urea Nitrogen 31 mg/dl Creatinine 1.40 mg/dl Est Creatinine Clear Calc Drug Dose 21.3 ml/min Estimated GFR () 44.6 Estimated GFR (Non- 38.5 BUN/Creatinine Ratio 22.5 Random Glucose 69 mg/dl Calcium Level 9.0 mg/dl Assessment and Plan HTN Labile control, somewhat similar to her last hospitalization. Interestingly, in reviewing outpatient records, the patient's systolic blood pressure was 116 at her nephrology follow-up in May of this year. There is the issue of the renal artery stenosis, however previous attempts and one attempt this admission of arterial dopplers were inconclusive due to body habitus. Previous discussion of a CTA/MRA was thought not be possible due to her CKD. Her previous outpatient regimen included Aldactone (though there was some difficulty with hyperkalemia), oral hydralazine, Coreg, and nifedipine XL. In reviewing the hospital records, it appears as if she's been off the diuretic due to an elevated creatinine upon this admission. For today: Continue Lasix 20 mg PO daily. Continue hydralazine to 50 mg PO TID Consider increasing to QID if not controlled. Continue Coreg 25 mg PO BID. Continue Norvasc 10 mg PO daily. Add Catapres Patch 0.4 mg mg (two 0.2 mg patch) Discontinue clonidine 0.4 mg by mouth twice a day on 08/03/15 BMP in a.m. We'll have nursing witness all medication administration Possible pneumonia/ Bronchiectasis Completed 10 day course of Zosyn and vancomycin secondary to positive MRSA swab. Repeat CXR in AM. Symptomatically she has improved. Chronic kidney disease Monitor BUN/creatinine with above changes. If her blood pressure remains resistant to the above, may need to consider more advanced imaging with regards to the renal arteries. Venous insufficiency. compression stockings Severe refractory osteoporosis Continue vitamin D. Prolia Hyperparathyroidism Continue vitamin D supplementation. Chronic pain continue Dilaudid , Baclofen, methadone DVT Prophylaxis: Lovenox
[2016-07-31] MEDS ORDERED: CLONIDINE HCL 0.2 MG/24 HR TRANSDERM SYS TD SCH (16:00)
[2016-07-31] MEDS: CHECK CLONIDINE PATCH PLACEMENT SCH (16:00)
--- NOTE | 2016-07-31 19:18 | DIAGNOSTIC IMAGING REPORT ---
CHEST 2 VIEWS ROUTINE CLINICAL HISTORY: pneumonia dyspnea COMPARISON STUDY: 07/28/2016 FINDINGS: Interval consolidative infiltrate medial aspect right base. Mild left basilar atelectatic change. Pre-existing tortuosity thoracic aorta. Multiple kyphoplasty' s. IMPRESSION: Interval consolidative infiltrative change medial right base versus progressive atelectatic change. Multiple chronic findings bilaterally. Baseline emphysematous change. Electronically signed by: Klever June M.D. 07/31/2016 7:17 PM Dictated Date/Time: 07/31/2016 7:16 PM
[2016-07-31] MEDS: LATANOPROST 0.005% OP SOLN 2.5 ML BTL OPR SCH (20:49)
[2016-07-31] MEDS: ENOXAPARIN 30 MG/0.3 ML SYR SQ SCH (21:08)
[2016-07-31] MEDS: ZOLPIDEM TARTRATE 10 MG TAB PO SCH (22:39)
[2016-08-01 00:11] VITALS: BP 151/97; PULSE 71; TEMP 36.9; O2SAT 94
[2016-08-01] MEDS: ALBUT/IPRATROP 3MG/0.5MG NEB 3 ML VIAL INH SCH ×6 (03:02→23:12)
[2016-08-01] MEDS: SUCRALFATE 1 GM/10 ML UDC PO SCH ×4 (06:23→20:21)
[2016-08-01] MEDS: DORNASE ALFA (2500U) 2.5MG/2.5ML INH SCH ×2 (07:10→19:08)
[2016-08-01 07:18] VITALS: BP 143/98; PULSE 70; TEMP 36.7; O2SAT 93
[2016-08-01 07:20] LABS: CALCIUM 9.4 mg/dl (8.5-10.1); CREATININE 1.5 mg/dl (0.60-1.20); POTASSIUM 3.6 mmol/L (3.5-5.1)
--- NOTE | 2016-08-01 08:53 | Progress Note ---
Subjective Date of Service: Aug 01, 2016. Subjective pt states she is feeling better but has sores in mouth and a painful back, otherwise is not bothered by htn such as no headache or chest pain Problem List Medical Problems: (1) Bilateral pneumonia Status: Acute (2) CHF (congestive heart failure) Status: Acute (3) Chronic Kidney Disease, Stage Iii (Moderate) Status: Chronic (4) COPD exacerbation Status: Acute (5) Crystal arthritis Status: Chronic (6) Duodenal bulb ulcer Status: Chronic (7) Failure of outpatient treatment Status: Acute (8) Failure of outpatient treatment Status: Acute (9) Gout Status: Chronic (10) Hyperlipidemia Nec/Nos Status: Chronic (11) Hypertension Status: Chronic (12) Hypoxemia Status: Acute (13) Hypoxia Status: Acute (14) Hypoxia Status: Acute (15) Hypoxia Status: Acute (16) Lumbar compression fracture Status: Chronic (17) Opiate use Status: Chronic (18) Osteoporosis Status: Chronic (19) Peripheral edema Status: Acute (20) Pneumonia Status: Acute (21) Pneumonia involving right lung Status: Acute (22) Respiratory acidosis Status: Acute (23) Respiratory distress Status: Acute (24) Right renal artery stenosis Status: Chronic (25) Secondary hyperparathyroidism Status: Chronic (26) UTI (urinary tract infection) Status: Acute Review of Systems Constitutional: + fatigue, + weakness, No chills, No fever ENT: + problem reported (sores in mouth below upper dentures) Respiratory: No cough, No shortness of breath Cardiac: No chest pain, No edema Abdomen: No diarrhea, No nausea, No pain, No vomiting Musculoskeletal: + muscle pain (paraspinous muscles) Female : No dysuria, No hematuria, No incontinence Objective Vital Signs Date Time Temp Pulse Resp B/P Pulse Ox O2 Delivery O2 Flow Rate FiO2 08/01/16 07:32 Nasal Cannula 3.0 Humidified Oxygen 08/01/16 07:18 36.7 70 17 143/98 93 Humidified Oxygen 3.0 08/01/16 00:11 36.9 71 20 151/97 94 Nasal Cannula 2.0 07/31/16 23:59 Nasal Cannula 3.0 Humidified Oxygen 07/31/16 20:48 63 159/93 07/31/16 19:35 94 14 96 Nasal Cannula 3.0 07/31/16 17:01 36.4 64 16 153/90 64 Nasal Cannula 3.0 Humidified Oxygen 07/31/16 16:45 Nasal Cannula 3.0 Humidified Oxygen 07/31/16 15:23 70 18 92 Nasal Cannula 3.0 07/31/16 13:50 36.6 68 18 122/74 93 Nasal Cannula 3.0 68 07/31/16 08:59 36.8 64 18 149/87 95 Nasal Cannula 3.0 Physical Exam General Appearance: WD/WN, + mild distress ENT: + pertinent finding (oral candidiasis seen when dentures removed) Neck: supple, no JVD Respiratory/Chest: chest non-tender, lungs clear, normal breath sounds Cardiovascular: regular rate, rhythm, no murmur Abdomen: normal bowel sounds, non tender, soft, + pertinent finding (no bruits) Extremities: no pedal edema, no calf tenderness Laboratory Results Last 24 Hours Test 08/01/16 06:39 Sodium Level 139 mmol/L Potassium Level 3.6 mmol/L Chloride Level 97 mmol/L Carbon Dioxide Level 34 mmol/L Anion Gap 8.0 mmol/L Blood Urea Nitrogen 38 mg/dl Creatinine 1.50 mg/dl Est Creatinine Clear Calc Drug Dose 19.9 ml/min Estimated GFR () 41.1 Estimated GFR (Non- 35.4 BUN/Creatinine Ratio 25.0 Random Glucose 82 mg/dl Calcium Level 9.4 mg/dl Assessment and Plan 70 F admitted for treatment of pneumia with concern for staph pneumoina, and persistent issues with difficult to control BP HTN has history of difficult to control BP and previous discussion of possible Renal artery stenosis but inconclusive testing, also testing limited by renal failure and body size, Lasix 20 mg PO daily. hydralazine to 50 mg PO TID, Coreg 25 mg PO BID.Norvasc 10 mg PO daily. Catapres Patch 0.4 mg mg (two 0.2 mg patch) with plans to discontinue clonidine 0.4 mg by mouth twice a day on 08/03/15 Pneumonia/ Bronchiectasis Completed 10 day course of Zosyn and vancomycin secondary to positive MRSA swab LBp seems muscular many med intolerances per pt will try heat application, however her Chronic pain seems controlled Dilaudid , Baclofen, methadone oral candidiasis, start nystatin Chronic kidney disease 3 this limits Meds and contrast media considered for CTA Hyperparathyroidism vitamin D supplementation, calcium is stable DVT Prophylaxis: Lovenox
[2016-08-01] MEDS: METHADONE HCL 10 MG TAB PO SCH ×3 (09:12→20:21)
[2016-08-01] MEDS: HYDROmorphone HCL 2 MG TAB PO SCH ×2 (09:12→20:21)
[2016-08-01] MEDS: FERROUS SULFATE 325 MG TAB PO SCH (09:13)
[2016-08-01] MEDS: GUAIFENESIN 600 MG TABCR PO SCH ×2 (09:13→20:20)
[2016-08-01] MEDS: PANTOprazole SOD 40 MG TAB PO SCH ×2 (09:13→20:21)
[2016-08-01] MEDS: AMLODIPINE BESYLATE 5 MG TAB PO SCH (09:13)
[2016-08-01] MEDS: FLUTICASONE/SALMETEROL 250/50 (ADVAIR) 14 PUFF/1 INHALER INH SCH ×2 (09:13→20:19)
[2016-08-01] MEDS: CLONIDINE HCL 0.1 MG TAB PO SCH ×2 (09:14→20:20)
[2016-08-01] MEDS: MULTIVITAMIN TAB PO SCH (09:14)
[2016-08-01] MEDS: FUROSEMIDE 20 MG TAB PO SCH (09:14)
[2016-08-01] MEDS: CHOLECALCIFEROL 1000 INTER.UNIT TAB PO SCH (09:14)
[2016-08-01] MEDS: BACLOFEN 10 MG TAB PO SCH ×3 (09:15→20:20)
[2016-08-01] MEDS: POLYETHYLENE (MIRALAX) 17 GM PACK PO SCH (09:15)
[2016-08-01] MEDS: ALLOPURINOL 100 MG TAB PO SCH ×2 (09:15→20:20)
[2016-08-01] MEDS: CHECK CLONIDINE PATCH PLACEMENT SCH ×3 (09:15→15:58)
[2016-08-01] MEDS: CARVEDILOL 25 MG TAB PO SCH ×2 (09:15→20:21)
[2016-08-01] MEDS: TIOTROPIUM BROMIDE 5 PUFF/90 MCG INH INH SCH (09:23)
[2016-08-01 15:46] VITALS: BP 133/77; PULSE 70; TEMP 36.8; O2SAT 94
[2016-08-01] MEDS: LORAZEPAM 1 MG TAB PO PRN (15:58)
[2016-08-01 19:09] VITALS: PULSE 79
[2016-08-01 20:18] VITALS: BP 145/88; PULSE 69
[2016-08-01] MEDS: LATANOPROST 0.005% OP SOLN 2.5 ML BTL OPR SCH (20:19)
[2016-08-01] MEDS: ENOXAPARIN 30 MG/0.3 ML SYR SQ SCH (20:20)
[2016-08-01] MEDS: NYSTATIN SUSP 500,000 U/5 ML UDC PO SCH (20:20)
[2016-08-01] MEDS: ZOLPIDEM TARTRATE 10 MG TAB PO SCH (22:42)
[2016-08-01 23:48] VITALS: BP 147/91; PULSE 65; TEMP 36.7; O2SAT 95
[2016-08-02] MEDS: ALBUT/IPRATROP 3MG/0.5MG NEB 3 ML VIAL INH SCH ×6 (03:13→23:15)
[2016-08-02] MEDS: SUCRALFATE 1 GM/10 ML UDC PO SCH ×4 (06:17→20:22)
[2016-08-02 06:30] LABS: BUN/CREATININE RATIO 21.3 (10-20); CALCIUM 8.8 mg/dl (8.5-10.1); CREATININE 1.8 mg/dl (0.60-1.20); POTASSIUM 3.5 mmol/L (3.5-5.1)
[2016-08-02 07:18] VITALS: BP 146/81; PULSE 77; TEMP 36.7; O2SAT 100
[2016-08-02] MEDS: DORNASE ALFA (2500U) 2.5MG/2.5ML INH SCH ×2 (07:23→20:00)
[2016-08-02] MEDS: METHADONE HCL 10 MG TAB PO SCH ×3 (09:10→20:21)
[2016-08-02] MEDS: HYDROmorphone HCL 2 MG TAB PO SCH ×2 (09:10→20:21)
[2016-08-02] MEDS: ALLOPURINOL 100 MG TAB PO SCH ×2 (09:11→20:20)
[2016-08-02] MEDS: FERROUS SULFATE 325 MG TAB PO SCH (09:11)
[2016-08-02] MEDS: BACLOFEN 10 MG TAB PO SCH ×3 (09:11→20:21)
[2016-08-02] MEDS: TIOTROPIUM BROMIDE 5 PUFF/90 MCG INH INH SCH (09:11)
[2016-08-02] MEDS: FLUTICASONE/SALMETEROL 250/50 (ADVAIR) 14 PUFF/1 INHALER INH SCH ×2 (09:11→20:22)
[2016-08-02] MEDS: GUAIFENESIN 600 MG TABCR PO SCH ×2 (09:11→20:20)
[2016-08-02] MEDS: MULTIVITAMIN TAB PO SCH (09:12)
[2016-08-02] MEDS: CHOLECALCIFEROL 1000 INTER.UNIT TAB PO SCH (09:12)
[2016-08-02] MEDS: CARVEDILOL 25 MG TAB PO SCH ×2 (09:12→20:20)
[2016-08-02] MEDS: AMLODIPINE BESYLATE 5 MG TAB PO SCH (09:12)
[2016-08-02] MEDS: CHECK CLONIDINE PATCH PLACEMENT SCH ×3 (09:13→16:00)
[2016-08-02] MEDS: NYSTATIN SUSP 500,000 U/5 ML UDC PO SCH ×4 (09:13→20:22)
[2016-08-02] MEDS: PANTOprazole SOD 40 MG TAB PO SCH ×2 (09:13→20:21)
[2016-08-02] MEDS: POLYETHYLENE (MIRALAX) 17 GM PACK PO SCH (09:14)
[2016-08-02] MEDS: LORAZEPAM 1 MG TAB PO PRN (13:35)
[2016-08-02 15:55] VITALS: BP 152/84; PULSE 77; TEMP 36.4; O2SAT 92
--- NOTE | 2016-08-02 17:33 | Progress Note ---
Subjective Date of Service: Aug 02, 2016. Subjective this pt states she is feeling better each day, her thrush is improved and her back pain slightly better than yesterday Problem List Medical Problems: (1) Bilateral pneumonia Status: Acute (2) CHF (congestive heart failure) Status: Acute (3) Chronic Kidney Disease, Stage Iii (Moderate) Status: Chronic (4) COPD exacerbation Status: Acute (5) Crystal arthritis Status: Chronic (6) Duodenal bulb ulcer Status: Chronic (7) Failure of outpatient treatment Status: Acute (8) Failure of outpatient treatment Status: Acute (9) Gout Status: Chronic (10) Hyperlipidemia Nec/Nos Status: Chronic (11) Hypertension Status: Chronic (12) Hypoxemia Status: Acute (13) Hypoxia Status: Acute (14) Hypoxia Status: Acute (15) Hypoxia Status: Acute (16) Lumbar compression fracture Status: Chronic (17) Opiate use Status: Chronic (18) Osteoporosis Status: Chronic (19) Peripheral edema Status: Acute (20) Pneumonia Status: Acute (21) Pneumonia involving right lung Status: Acute (22) Respiratory acidosis Status: Acute (23) Respiratory distress Status: Acute (24) Right renal artery stenosis Status: Chronic (25) Secondary hyperparathyroidism Status: Chronic (26) UTI (urinary tract infection) Status: Acute Review of Systems Constitutional: No chills, No fever, No weakness Respiratory: + cough, + shortness of breath, + sputum Cardiac: No chest pain, No edema Abdomen: No diarrhea, No nausea, No pain, No vomiting Female : No dysuria, No urinary frequency Objective Vital Signs Date Time Temp Pulse Resp B/P Pulse Ox O2 Delivery O2 Flow Rate FiO2 08/02/16 07:18 36.7 77 20 146/81 100 Room Air 08/02/16 00:30 Nasal Cannula 3.0 08/01/16 23:48 36.7 65 20 147/91 95 Nasal Cannula 3.0 08/01/16 20:18 69 145/88 08/01/16 19:09 79 16 Nasal Cannula 3.0 96 08/01/16 16:00 Nasal Cannula 3.0 08/01/16 15:46 36.8 70 20 133/77 94 Nasal Cannula 3.0 Physical Exam General Appearance: WD/WN, + mild distress Neck: supple, no JVD Respiratory/Chest: chest non-tender, + rhonchi (scattered and improved) Cardiovascular: regular rate, rhythm, no murmur Abdomen: normal bowel sounds, non tender, soft Extremities: no pedal edema, no calf tenderness Laboratory Results Last 24 Hours Test 08/02/16 05:20 Sodium Level 138 mmol/L Potassium Level 3.5 mmol/L Chloride Level 97 mmol/L Carbon Dioxide Level 35 mmol/L Anion Gap 6.0 mmol/L Blood Urea Nitrogen 38 mg/dl Creatinine 1.80 mg/dl Est Creatinine Clear Calc Drug Dose 16.6 ml/min Estimated GFR () 32.9 Estimated GFR (Non- 28.4 BUN/Creatinine Ratio 21.3 Random Glucose 79 mg/dl Calcium Level 8.8 mg/dl Assessment and Plan 70 F admitted for treatment of pneumonia with concern for staph pneumonia, and persistent issues with difficult to control BP HTN has history of difficult to control BP , given slight rise in Cr lasix held 08/02 hydralazine to 50 mg PO TID, Coreg 25 mg PO BID.Norvasc 10 mg PO daily. Catapres Patch 0.4 mg mg (two 0.2 mg patch), discussion of re assessment of renal artery stenosis with covering neprhologist, since BP is acceptable and with no symptoms associated with it will return to care of DR Temple as outpt to consider if MRA will be warranted Pneumonia/ Bronchiectasis Completed 10 day course of Zosyn and vancomycin secondary to positive MRSA swab, feels is better each day LBp seems muscular many med intolerances per pt will try heat application, however her Chronic pain seems controlled Dilaudid , Baclofen, methadone oral candidiasis, start nystatin 08/01, greatly improved Chronic kidney disease 3 this limits Meds and contrast media considered for CTA/MRA Hyperparathyroidism vitamin D supplementation, calcium is stable DVT Prophylaxis: Lovenox
[2016-08-02] MEDS: LATANOPROST 0.005% OP SOLN 2.5 ML BTL OPR SCH (20:21)
[2016-08-02] MEDS: ENOXAPARIN 30 MG/0.3 ML SYR SQ SCH (20:22)
[2016-08-02 20:23] VITALS: BP 159/82; PULSE 74
[2016-08-02] MEDS: ZOLPIDEM TARTRATE 10 MG TAB PO SCH (22:32)
[2016-08-02 23:32] VITALS: BP 150/85; PULSE 73; TEMP 37; O2SAT 93
[2016-08-03] MEDS: CHECK CLONIDINE PATCH PLACEMENT SCH ×4 (02:26→23:03)
[2016-08-03] MEDS: LORAZEPAM 1 MG TAB PO PRN (02:26)
[2016-08-03] MEDS: ALBUT/IPRATROP 3MG/0.5MG NEB 3 ML VIAL INH SCH ×6 (04:00→23:13)
[2016-08-03 07:01] LABS: BUN/CREATININE RATIO 26.7 (10-20); CALCIUM 8.6 mg/dl (8.5-10.1); CREATININE 1.5 mg/dl (0.60-1.20); POTASSIUM 3.5 mmol/L (3.5-5.1)
[2016-08-03] MEDS: DORNASE ALFA (2500U) 2.5MG/2.5ML INH SCH ×2 (07:31→19:35)
[2016-08-03 07:39] VITALS: BP 170/87; PULSE 64; TEMP 36.3; O2SAT 91
[2016-08-03 08:45] VITALS: O2SAT 91
[2016-08-03] MEDS: FLUTICASONE/SALMETEROL 250/50 (ADVAIR) 14 PUFF/1 INHALER INH SCH ×2 (08:58→20:48)
[2016-08-03] MEDS: TIOTROPIUM BROMIDE 5 PUFF/90 MCG INH INH SCH (08:59)
[2016-08-03] MEDS: HYDROmorphone HCL 2 MG TAB PO SCH ×2 (09:00→21:00)
[2016-08-03] MEDS: SUCRALFATE 1 GM/10 ML UDC PO SCH ×4 (09:00→22:31)
[2016-08-03] MEDS: ALLOPURINOL 100 MG TAB PO SCH ×2 (09:01→20:00)
[2016-08-03] MEDS: CARVEDILOL 25 MG TAB PO SCH ×2 (09:01→20:54)
[2016-08-03] MEDS: MULTIVITAMIN TAB PO SCH (09:01)
[2016-08-03] MEDS: FERROUS SULFATE 325 MG TAB PO SCH (09:01)
[2016-08-03] MEDS: METHADONE HCL 10 MG TAB PO SCH ×3 (09:01→20:58)
[2016-08-03] MEDS: BACLOFEN 10 MG TAB PO SCH ×3 (09:02→20:50)
[2016-08-03] MEDS: AMLODIPINE BESYLATE 5 MG TAB PO SCH (09:02)
[2016-08-03] MEDS: NYSTATIN SUSP 500,000 U/5 ML UDC PO SCH ×4 (09:02→20:52)
[2016-08-03] MEDS: CHOLECALCIFEROL 1000 INTER.UNIT TAB PO SCH (09:02)
[2016-08-03] MEDS: PANTOprazole SOD 40 MG TAB PO SCH ×2 (09:02→20:52)
[2016-08-03] MEDS: GUAIFENESIN 600 MG TABCR PO SCH ×2 (09:03→20:50)
[2016-08-03] MEDS: POLYETHYLENE (MIRALAX) 17 GM PACK PO SCH (09:03)
[2016-08-03 15:00] VITALS: BP 164/84; PULSE 74; TEMP 36.9; O2SAT 92
[2016-08-03] MEDS ORDERED: HYDROmorphone HCL 2 MG TAB PO PRN (15:45)
--- NOTE | 2016-08-03 15:49 | Progress Note ---
Subjective Date of Service: Aug 03, 2016. Subjective this pt is now with worsening back pain in lumbar spine without radiation to legs, thrush is improved Problem List Medical Problems: (1) Bilateral pneumonia Status: Acute (2) CHF (congestive heart failure) Status: Acute (3) Chronic Kidney Disease, Stage Iii (Moderate) Status: Chronic (4) COPD exacerbation Status: Acute (5) Crystal arthritis Status: Chronic (6) Duodenal bulb ulcer Status: Chronic (7) Failure of outpatient treatment Status: Acute (8) Failure of outpatient treatment Status: Acute (9) Gout Status: Chronic (10) Hyperlipidemia Nec/Nos Status: Chronic (11) Hypertension Status: Chronic (12) Hypoxemia Status: Acute (13) Hypoxia Status: Acute (14) Hypoxia Status: Acute (15) Hypoxia Status: Acute (16) Lumbar compression fracture Status: Chronic (17) Opiate use Status: Chronic (18) Osteoporosis Status: Chronic (19) Peripheral edema Status: Acute (20) Pneumonia Status: Acute (21) Pneumonia involving right lung Status: Acute (22) Respiratory acidosis Status: Acute (23) Respiratory distress Status: Acute (24) Right renal artery stenosis Status: Chronic (25) Secondary hyperparathyroidism Status: Chronic (26) UTI (urinary tract infection) Status: Acute Review of Systems Constitutional: No chills, No fever Respiratory: + cough, + dyspnea on exertion, + shortness of breath, No sputum Cardiac: No chest pain, No edema Abdomen: No diarrhea, No nausea, No pain, No vomiting Musculoskeletal: + problem reported (LBP), No joint pain, No muscle pain Objective Vital Signs Date Time Temp Pulse Resp B/P Pulse Ox O2 Delivery O2 Flow Rate FiO2 08/03/16 15:00 36.9 74 18 164/84 92 Nasal Cannula 3.0 08/03/16 08:45 91 Nasal Cannula 3.0 08/03/16 07:39 36.3 64 18 170/87 91 3.0 08/03/16 01:13 Nasal Cannula 3.0 08/02/16 23:32 37.0 73 18 150/85 93 Room Air 08/02/16 20:23 74 159/82 08/02/16 16:00 Nasal Cannula 3.0 08/02/16 15:55 36.4 77 16 152/84 92 3.0 Physical Exam General Appearance: WD/WN, + moderate distress Neck: supple, no JVD Respiratory/Chest: chest non-tender, lungs clear, normal breath sounds Cardiovascular: regular rate, rhythm, no murmur Abdomen: soft Extremities: no pedal edema, no calf tenderness Neurologic/Psychiatric: no motor/sensory deficits, alert Laboratory Results Last 24 Hours Test 08/03/16 05:45 Sodium Level 143 mmol/L Potassium Level 3.5 mmol/L Chloride Level 101 mmol/L Carbon Dioxide Level 33 mmol/L Anion Gap 9.0 mmol/L Blood Urea Nitrogen 40 mg/dl Creatinine 1.50 mg/dl Est Creatinine Clear Calc Drug Dose 19.9 ml/min Estimated GFR () 41.1 Estimated GFR (Non- 35.4 BUN/Creatinine Ratio 26.7 Random Glucose 64 mg/dl Calcium Level 8.6 mg/dl Assessment and Plan 70 F admitted for treatment of pneumonia with concern for staph pneumonia, and persistent issues with difficult to control BP HTN has history of difficult to control BP , given slight rise in Cr lasix held 08/02, CR improved 08/03 did also increase hydralazine to 75 mg PO TID, Coreg 25 mg PO BID.Norvasc 10 mg PO daily. Catapres Patch 0.4 mg mg (two 0.2 mg patch), discussion of re assessment of renal artery stenosis with covering neprhologist, since BP is acceptable and with no symptoms associated with it will return to care of DR Temple as outpt to consider if MRA will be warranted Pneumonia/ Bronchiectasis Completed 10 day course of Zosyn and vancomycin secondary to positive MRSA swab, feels is better each day LBp seems muscular now acute on Chronic pain will check x ray, add lidoderm and prn dialudid 08/03 oral candidiasis, start nystatin 08/01, greatly improved Chronic kidney disease 3 this limits Meds and contrast media considered for CTA/MRA Hyperparathyroidism vitamin D supplementation, calcium is stable DVT Prophylaxis: Lovenox
--- NOTE | 2016-08-03 16:42 | DIAGNOSTIC IMAGING REPORT ---
LUMBAR SPINE 3 VIEWS CLINICAL HISTORY: Chronic low back pain. FINDINGS: AP, lateral, and coned-down views of the lumbar spine are compared to study dated 02/04/2015. The skeletal structures are osteopenic. There are compression deformities at all spinal levels between T9 and L5. There is evidence of previous vertebroplasty at all levels between T11-L5. Vertebral body alignment is maintained. No retropulsed fragments are identified. There is no radiographic evidence of acute fracture. The bony pelvis is grossly intact. Postoperative change is seen in the proximal femora. Sclerotic change is noted in the sacroiliac joints. There is chronic posttraumatic deformity of the left pubic ring. There is a nonobstructed abdominal bowel gas pattern noting severe constipation. Advanced atherosclerotic calcification is noted in the abdominal aorta. A renal artery stent is suspected. IMPRESSION: 1. Osteopenia with numerous compression deformities and previous multilevel vertebroplasty as above. 2. No acute fracture is clearly visualized. 3. Severe constipation. Dictated: 08/03/2016 4:19 PM Transcribed: 08/03/2016 4:41 PM [email or web address] Electronically signed by: Tej Bernard M.D. 08/03/2016 4:49 PM Dictated Date/Time: 08/03/2016 4:19 PM
[2016-08-03] MEDS: LIDODERM (LIDOCAINE) PATCH 5% TD SCH (16:47)
[2016-08-03] MEDS: LATANOPROST 0.005% OP SOLN 2.5 ML BTL OPR SCH (20:53)
[2016-08-03] MEDS: ENOXAPARIN 30 MG/0.3 ML SYR SQ SCH (22:31)
[2016-08-03] MEDS: ZOLPIDEM TARTRATE 10 MG TAB PO SCH (22:31)
[2016-08-03 23:10] VITALS: BP 174/96; PULSE 73; TEMP 37.1; O2SAT 92
[2016-08-04] MEDS: ALBUT/IPRATROP 3MG/0.5MG NEB 3 ML VIAL INH SCH ×6 (03:32→23:06)
[2016-08-04] MEDS: LORAZEPAM 1 MG TAB PO PRN (03:58)
[2016-08-04] MEDS: SUCRALFATE 1 GM/10 ML UDC PO SCH ×4 (06:14→20:30)
[2016-08-04 06:17] LABS: BUN/CREATININE RATIO 21.9 (10-20); CALCIUM 9.1 mg/dl (8.5-10.1); CREATININE 1.6 mg/dl (0.60-1.20); POTASSIUM 3.6 mmol/L (3.5-5.1)
[2016-08-04 07:25] VITALS: BP_SYST 172; BP_SYST 174; BP_DIAS 101; BP_DIAS 107; PULSE 69; TEMP 36.8; O2SAT 94
[2016-08-04] MEDS: DORNASE ALFA (2500U) 2.5MG/2.5ML INH SCH ×2 (07:39→19:11)
[2016-08-04] MEDS: METHADONE HCL 10 MG TAB PO SCH ×3 (08:41→20:25)
[2016-08-04] MEDS: CHOLECALCIFEROL 1000 INTER.UNIT TAB PO SCH (08:42)
[2016-08-04] MEDS: FERROUS SULFATE 325 MG TAB PO SCH (08:42)
[2016-08-04] MEDS: HYDROmorphone HCL 2 MG TAB PO SCH ×2 (08:42→20:26)
[2016-08-04] MEDS: PANTOprazole SOD 40 MG TAB PO SCH ×2 (08:42→20:31)
[2016-08-04] MEDS: GUAIFENESIN 600 MG TABCR PO SCH ×2 (08:43→20:31)
[2016-08-04] MEDS: ALLOPURINOL 100 MG TAB PO SCH ×2 (08:43→20:31)
[2016-08-04] MEDS: CARVEDILOL 25 MG TAB PO SCH ×2 (08:44→20:31)
[2016-08-04] MEDS: BACLOFEN 10 MG TAB PO SCH ×3 (08:44→20:31)
[2016-08-04] MEDS: AMLODIPINE BESYLATE 5 MG TAB PO SCH (08:44)
[2016-08-04 08:45] VITALS: O2SAT 94
[2016-08-04] MEDS: LIDODERM (LIDOCAINE) PATCH 5% TD SCH (08:45)
[2016-08-04] MEDS: FLUTICASONE/SALMETEROL 250/50 (ADVAIR) 14 PUFF/1 INHALER INH SCH ×2 (08:45→20:33)
[2016-08-04] MEDS: TIOTROPIUM BROMIDE 5 PUFF/90 MCG INH INH SCH (08:46)
[2016-08-04] MEDS: CHECK CLONIDINE PATCH PLACEMENT SCH ×3 (08:46→23:51)
[2016-08-04] MEDS: POLYETHYLENE (MIRALAX) 17 GM PACK PO SCH ×2 (08:46→20:34)
[2016-08-04] MEDS: NYSTATIN SUSP 500,000 U/5 ML UDC PO SCH ×4 (08:47→20:30)
[2016-08-04] MEDS: MULTIVITAMIN TAB PO SCH (08:47)
[2016-08-04 10:30] VITALS: BP 148/78; PULSE 74
[2016-08-04] MEDS ORDERED: BISACODYL 10 MG SUPP PR STA (13:05)
--- NOTE | 2016-08-04 13:11 | Progress Note ---
Subjective Date of Service: Aug 04, 2016. Subjective pt states her back pain has improved with lidocaine patch. I reviewed xray with patient and explained how her severe constipation maybe causing her back pain Problem List Medical Problems: (1) Bilateral pneumonia Status: Acute (2) CHF (congestive heart failure) Status: Acute (3) Chronic Kidney Disease, Stage Iii (Moderate) Status: Chronic (4) COPD exacerbation Status: Acute (5) Crystal arthritis Status: Chronic (6) Duodenal bulb ulcer Status: Chronic (7) Failure of outpatient treatment Status: Acute (8) Failure of outpatient treatment Status: Acute (9) Gout Status: Chronic (10) Hyperlipidemia Nec/Nos Status: Chronic (11) Hypertension Status: Chronic (12) Hypoxemia Status: Acute (13) Hypoxia Status: Acute (14) Hypoxia Status: Acute (15) Hypoxia Status: Acute (16) Lumbar compression fracture Status: Chronic (17) Opiate use Status: Chronic (18) Osteoporosis Status: Chronic (19) Peripheral edema Status: Acute (20) Pneumonia Status: Acute (21) Pneumonia involving right lung Status: Acute (22) Respiratory acidosis Status: Acute (23) Respiratory distress Status: Acute (24) Right renal artery stenosis Status: Chronic (25) Secondary hyperparathyroidism Status: Chronic (26) UTI (urinary tract infection) Status: Acute Review of Systems Constitutional: No chills, No fever Respiratory: + dyspnea on exertion, + shortness of breath, No cough Cardiac: No edema Abdomen: + constipation, + pain, No diarrhea, No nausea, No vomiting Musculoskeletal: No joint pain, No muscle pain Female : No dysuria, No urinary frequency Objective Vital Signs Date Time Temp Pulse Resp B/P Pulse Ox O2 Delivery O2 Flow Rate FiO2 08/04/16 08:45 94 Nasal Cannula 3.0 08/04/16 07:25 36.8 69 20 174/101 94 Nasal Cannula 3.0 172/107 08/04/16 00:00 Nasal Cannula 3.0 08/03/16 23:10 37.1 73 18 174/96 92 Nasal Cannula 3.0 08/03/16 20:00 Nasal Cannula 3.0 08/03/16 16:30 Nasal Cannula 3.0 08/03/16 15:00 36.9 74 18 164/84 92 Nasal Cannula 3.0 Physical Exam General Appearance: WD/WN, + mild distress Neck: supple, no JVD Respiratory/Chest: chest non-tender, + respiratory distress (mild but seems baseline), + decreased breath sounds Cardiovascular: regular rate, rhythm, no murmur Abdomen: normal bowel sounds, soft, + distended Extremities: no pedal edema, no calf tenderness Neurologic/Psychiatric: alert, oriented x 3 Laboratory Results Last 24 Hours Test 08/04/16 05:23 Sodium Level 141 mmol/L Potassium Level 3.6 mmol/L Chloride Level 101 mmol/L Carbon Dioxide Level 32 mmol/L Anion Gap 8.0 mmol/L Blood Urea Nitrogen 35 mg/dl Creatinine 1.60 mg/dl Est Creatinine Clear Calc Drug Dose 18.7 ml/min Estimated GFR () 38.0 Estimated GFR (Non- 32.8 BUN/Creatinine Ratio 21.9 Random Glucose 77 mg/dl Calcium Level 9.1 mg/dl Assessment and Plan 70 F admitted for treatment of pneumonia with concern for staph pneumonia, and difficult to control BP, has back pain and severe constipation HTN has history of difficult to control BP , given slight rise in Cr lasix held 08/02, CR improved 08/03 did also increase hydralazine to 75 mg PO TID, Coreg 25 mg PO BID.Norvasc 10 mg PO daily. Catapres Patch 0.4 mg mg (two 0.2 mg patch), discussion of re assessment of renal artery stenosis with covering neprhologist, since BP is acceptable and with no symptoms associated with it will return to care of DR Temple as outpt to consider if MRA will be warranted Pneumonia/ Bronchiectasis Completed 10 day course of Zosyn and vancomycin secondary to positive MRSA swab, feels is better each day LBP improved with lidoderm and prn dialudid 08/03 severe constipation likely opiate induced bowel dysfunction, will use Relistor, suppository and increased miralox Chronic kidney disease 3 this limits Meds and contrast media considered for CTA/MRA Hyperparathyroidism vitamin D supplementation, calcium is stable oral candidiasis, start nystatin 08/01, greatly improved DVT Prophylaxis: Lovenox
[2016-08-04] MEDS: METHYLNALTREXONE BROMIDE INJ 12 MG/0.6 ML SYR SQ SCH (14:40)
[2016-08-04 16:13] VITALS: BP 121/80; PULSE 72; TEMP 36.7; O2SAT 95
[2016-08-04] MEDS: ENOXAPARIN 30 MG/0.3 ML SYR SQ SCH (20:32)
[2016-08-04] MEDS: LATANOPROST 0.005% OP SOLN 2.5 ML BTL OPR SCH (20:33)
[2016-08-04 20:36] VITALS: BP 171/86; PULSE 79
[2016-08-04] MEDS: ZOLPIDEM TARTRATE 10 MG TAB PO SCH (22:25)
[2016-08-04 23:35] VITALS: BP 156/85; PULSE 71; TEMP 36.8; O2SAT 94
[2016-08-05] MEDS: LORAZEPAM 1 MG TAB PO PRN ×2 (00:45→09:46)
[2016-08-05] MEDS: ALBUT/IPRATROP 3MG/0.5MG NEB 3 ML VIAL INH SCH ×5 (03:37→23:19)
[2016-08-05] MEDS: SUCRALFATE 1 GM/10 ML UDC PO SCH ×4 (07:20→20:31)
[2016-08-05] MEDS: DORNASE ALFA (2500U) 2.5MG/2.5ML INH SCH ×2 (07:56→19:43)
[2016-08-05 08:08] VITALS: BP 138/84; PULSE 67; TEMP 36.6; O2SAT 96
[2016-08-05] MEDS: POLYETHYLENE (MIRALAX) 17 GM PACK PO SCH ×2 (09:28→20:30)
[2016-08-05] MEDS: MULTIVITAMIN TAB PO SCH (09:30)
[2016-08-05] MEDS: NYSTATIN SUSP 500,000 U/5 ML UDC PO SCH ×4 (09:30→20:31)
[2016-08-05] MEDS: FLUTICASONE/SALMETEROL 250/50 (ADVAIR) 14 PUFF/1 INHALER INH SCH ×2 (09:30→20:30)
[2016-08-05] MEDS: AMLODIPINE BESYLATE 5 MG TAB PO SCH (09:31)
[2016-08-05] MEDS: GUAIFENESIN 600 MG TABCR PO SCH ×2 (09:31→20:31)
[2016-08-05] MEDS: ALLOPURINOL 100 MG TAB PO SCH ×2 (09:31→20:31)
[2016-08-05] MEDS: PANTOprazole SOD 40 MG TAB PO SCH ×2 (09:31→20:31)
[2016-08-05] MEDS: CARVEDILOL 25 MG TAB PO SCH ×2 (09:31→20:31)
[2016-08-05] MEDS: FERROUS SULFATE 325 MG TAB PO SCH (09:31)
[2016-08-05] MEDS: CHECK CLONIDINE PATCH PLACEMENT SCH ×3 (09:33→23:23)
[2016-08-05] MEDS: BACLOFEN 10 MG TAB PO SCH ×3 (09:34→20:31)
[2016-08-05] MEDS: ERGOCALCIFEROL 50,000 INTER.UNIT CAP PO SCH (09:34)
[2016-08-05] MEDS: CHOLECALCIFEROL 1000 INTER.UNIT TAB PO SCH (09:34)
[2016-08-05] MEDS: TIOTROPIUM BROMIDE 5 PUFF/90 MCG INH INH SCH (09:34)
[2016-08-05] MEDS: LIDODERM (LIDOCAINE) PATCH 5% TD SCH (09:35)
[2016-08-05] MEDS: HYDROmorphone HCL 2 MG TAB PO SCH ×2 (09:37→20:32)
[2016-08-05] MEDS: METHADONE HCL 10 MG TAB PO SCH ×3 (09:38→20:32)
[2016-08-05 11:24] VITALS: PULSE 76; O2SAT 93
[2016-08-05 14:56] VITALS: BP_SYST 127; BP_SYST 132; BP_DIAS 73; BP_DIAS 90; PULSE 67; PULSE 80; TEMP 36.3; TEMP 36.6; O2SAT 94; O2SAT 98
--- NOTE | 2016-08-05 15:25 | Progress Note ---
Subjective Date of Service: Aug 05, 2016. Subjective pt states she feels much better, did have bowel movement back pain is present but tolerable with lidoderm patch Problem List Medical Problems: (1) Bilateral pneumonia Status: Acute (2) CHF (congestive heart failure) Status: Acute (3) Chronic Kidney Disease, Stage Iii (Moderate) Status: Chronic (4) COPD exacerbation Status: Acute (5) Crystal arthritis Status: Chronic (6) Duodenal bulb ulcer Status: Chronic (7) Failure of outpatient treatment Status: Acute (8) Failure of outpatient treatment Status: Acute (9) Gout Status: Chronic (10) Hyperlipidemia Nec/Nos Status: Chronic (11) Hypertension Status: Chronic (12) Hypoxemia Status: Acute (13) Hypoxia Status: Acute (14) Hypoxia Status: Acute (15) Hypoxia Status: Acute (16) Lumbar compression fracture Status: Chronic (17) Opiate use Status: Chronic (18) Osteoporosis Status: Chronic (19) Peripheral edema Status: Acute (20) Pneumonia Status: Acute (21) Pneumonia involving right lung Status: Acute (22) Respiratory acidosis Status: Acute (23) Respiratory distress Status: Acute (24) Right renal artery stenosis Status: Chronic (25) Secondary hyperparathyroidism Status: Chronic (26) UTI (urinary tract infection) Status: Acute Review of Systems Constitutional: No chills, No fever, No weakness Respiratory: No cough, No sputum Cardiac: No chest pain Abdomen: No nausea, No pain, No vomiting Psychiatric: No anhedonism, No anxiety, No depression symptoms Objective Vital Signs Date Time Temp Pulse Resp B/P Pulse Ox O2 Delivery O2 Flow Rate FiO2 08/05/16 14:56 36.6 67 18 132/90 94 Nasal Cannula 3.0 08/05/16 11:24 76 93 08/05/16 08:40 Nasal Cannula 3.0 08/05/16 08:08 36.6 67 14 138/84 96 Nasal Cannula 3.0 08/05/16 01:00 Nasal Cannula 3.0 08/04/16 23:35 36.8 71 20 156/85 94 Nasal Cannula 2.0 08/04/16 20:36 79 171/86 08/04/16 16:13 36.7 72 18 121/80 95 Nasal Cannula 3.0 08/04/16 16:00 Nasal Cannula 3.0 Physical Exam General Appearance: WD/WN, + mild distress Respiratory/Chest: chest non-tender, + accessory muscle use, + rhonchi Cardiovascular: regular rate, rhythm, no murmur Abdomen: normal bowel sounds, non tender, soft Extremities: no pedal edema, no calf tenderness Assessment and Plan 70 F admitted for treatment of pneumonia with concern for staph pneumonia, and difficult to control BP, has improved constipation and back pain HTN has history of difficult to control BP , given slight rise in Cr lasix held 08/02, CR improved 08/03 did also increase hydralazine to 75 mg PO TID, Coreg 25 mg PO BID.Norvasc 10 mg PO daily. Catapres Patch 0.4 mg mg (two 0.2 mg patch), discussion of re assessment of renal artery stenosis with covering neprhologist, since BP is acceptable and with no symptoms associated with it will return to care of DR Temple as outpt to consider if MRA will be warranted Pneumonia/ Bronchiectasis Completed 10 day course of Zosyn and vancomycin secondary to positive MRSA swab, feels is better each day LBP improved with lidoderm and prn dialudid 08/03 severe constipation likely opiate induced bowel dysfunction, resolved with Relistor, suppository and increased miralox Chronic kidney disease 3 this limits Meds and contrast media considered for CTA/MRA Hyperparathyroidism vitamin D supplementation, calcium is stable oral candidiasis, start nystatin 08/01, greatly improved DVT Prophylaxis: Lovenox
[2016-08-05 20:24] VITALS: BP 156/82; PULSE 72
[2016-08-05] MEDS: ENOXAPARIN 30 MG/0.3 ML SYR SQ SCH (20:31)
[2016-08-05] MEDS: LATANOPROST 0.005% OP SOLN 2.5 ML BTL OPR SCH (20:32)
[2016-08-05] MEDS: ZOLPIDEM TARTRATE 10 MG TAB PO SCH (22:23)
[2016-08-05 23:25] VITALS: BP 162/85; PULSE 72; TEMP 36.5; O2SAT 92
[2016-08-06] MEDS: LORAZEPAM 1 MG TAB PO PRN ×2 (03:03→08:41)
[2016-08-06] MEDS: ALBUT/IPRATROP 3MG/0.5MG NEB 3 ML VIAL INH SCH ×3 (03:35→11:24)
[2016-08-06] MEDS: SUCRALFATE 1 GM/10 ML UDC PO SCH ×2 (06:10→11:38)
[2016-08-06] MEDS: DORNASE ALFA (2500U) 2.5MG/2.5ML INH SCH (07:00)
[2016-08-06 07:07] VITALS: BP 144/88; PULSE 71; TEMP 36.3; O2SAT 97
[2016-08-06] MEDS ORDERED: MRLP17 PO (08:06)
[2016-08-06] MEDS ORDERED: APR50 PO (08:06)
[2016-08-06] MEDS ORDERED: LDDP5 TD (08:06)
[2016-08-06] MEDS ORDERED: MTH10 PO (08:06)
[2016-08-06] MEDS ORDERED: ATV1 PO (08:06)
[2016-08-06] MEDS ORDERED: CTPTP2 TD (08:06)
[2016-08-06] MEDS ORDERED: DLD2 PO (08:06)
--- NOTE | 2016-08-06 08:12 | Discharge Instructions ---
Discharge Instructions Date of Service Aug 06, 2016. Admission Reason for Admission: Pneumonia - Failing Treatment Discharge Discharge Diagnosis / Problem: pneumonia, htn, back pain Discharge Goals Goal(s): Diagnostic testing, Therapeutic intervention Activity Recommendations Activity Limitations: resume your previous activity . Instructions / Follow-Up Instructions / Follow-Up 70 F admitted for treatment of pneumonia with concern for staph pneumonia, and difficult to control BP, has improved constipation and back pain HTN has history of difficult to control BP , given slight rise in Cr lasix held 08/02, increased hydralazine to 75 mg PO TID, Coreg 25 mg PO BID.Norvasc 10 mg PO daily. Catapres Patch 0.4 mg mg (two 0.2 mg patch), discussion of re assessment of renal artery stenosis with covering neprhologist, since BP is acceptable and with no symptoms associated with it will return to care of DR Temple as outpt to consider if MRA will be warranted Pneumonia/ Bronchiectasis Completed 10 day course of Zosyn and vancomycin secondary to positive MRSA swab, feels is better each day LBP improved with lidoderm and prn dialudid 08/03 severe constipation likely opiate induced bowel dysfunction, resolved with Relistor, suppository and increased miralox Chronic kidney disease 3 this limits Meds and contrast media considered for CTA/MRA Hyperparathyroidism vitamin D supplementation, calcium is stable oral candidiasis, start nystatin 08/01, greatly improved Current Hospital Diet Patient's current hospital diet: Regular Diet Discharge Diet Recommended Diet: Regular Diet Pending Studies Studies pending at discharge: no Laboratory Results Lipid Panel Test 07/28/16 05:47 Range/Units Triglycerides Level 146 0-150 mg/dl Cholesterol Level 243 H 0-200 mg/dl HDL Cholesterol 73 mg/dl Cholesterol/HDL Ratio 3.3 LDL Cholesterol, Calculated 141 mg/dl Medical Emergencies . Who to Call and When: Medical Emergencies: If at any time you feel your situation is an emergency, please call 911 immediately. . Non-Emergent Contact Non-Emergency issues call your: Primary Care Provider Call Non-Emergent contact if: temperature is above 101, your pain is unusual for you . . "Provider Documentation" section prepared by Tomasz Altamirano. VTE Core Measure Inpt VTE Proph given/why not?: Enoxaparin (Lovenox)SQ
[2016-08-06] MEDS: METHADONE HCL 10 MG TAB PO SCH (08:33)
[2016-08-06] MEDS: HYDROmorphone HCL 2 MG TAB PO SCH (08:34)
[2016-08-06] MEDS: LIDODERM (LIDOCAINE) PATCH 5% TD SCH (08:34)
[2016-08-06] MEDS: FLUTICASONE/SALMETEROL 250/50 (ADVAIR) 14 PUFF/1 INHALER INH SCH (08:34)
[2016-08-06] MEDS: ALLOPURINOL 100 MG TAB PO SCH (08:35)
[2016-08-06] MEDS: FERROUS SULFATE 325 MG TAB PO SCH (08:35)
[2016-08-06] MEDS: AMLODIPINE BESYLATE 5 MG TAB PO SCH (08:35)
[2016-08-06] MEDS: BACLOFEN 10 MG TAB PO SCH (08:35)
[2016-08-06] MEDS: MULTIVITAMIN TAB PO SCH (08:36)
[2016-08-06] MEDS: POLYETHYLENE (MIRALAX) 17 GM PACK PO SCH (08:36)
[2016-08-06] MEDS: NYSTATIN SUSP 500,000 U/5 ML UDC PO SCH ×2 (08:36→11:39)
[2016-08-06] MEDS: GUAIFENESIN 600 MG TABCR PO SCH (08:36)
[2016-08-06] MEDS: PANTOprazole SOD 40 MG TAB PO SCH (08:37)
[2016-08-06] MEDS: CHOLECALCIFEROL 1000 INTER.UNIT TAB PO SCH (08:37)
[2016-08-06] MEDS: CHECK CLONIDINE PATCH PLACEMENT SCH (08:38)
[2016-08-06] MEDS: CARVEDILOL 25 MG TAB PO SCH (08:40)
[2016-08-06] MEDS: TIOTROPIUM BROMIDE 5 PUFF/90 MCG INH INH SCH (08:40)
[2016-08-06] MEDS: METHYLNALTREXONE BROMIDE INJ 12 MG/0.6 ML SYR SQ SCH (08:41)
[2016-08-06 12:14] VITALS: BP 144/88; PULSE 71; TEMP 36.3; O2SAT 97
--- NOTE | 2016-08-06 14:10 | Discharge Summary ---
Discharge Summary Date of Service Aug 06, 2016. Discharge Summary Admission Date: Jul 21, 2016 at 18:22 Discharge Date: Aug 06, 2016 Discharge Disposition: care home facility Principal Diagnosis: pneumonia, back pain, constipation, oral candidiasis Problems/Secondary Diagnoses: (1) Chronic Kidney Disease, Stage Iii (Moderate) Status: Chronic (2) Crystal arthritis Status: Chronic (3) Duodenal bulb ulcer Status: Chronic (4) Gout Status: Chronic (5) Hyperlipidemia Nec/Nos Status: Chronic (6) Hypertension Status: Chronic (7) Lumbar compression fracture Status: Chronic (8) Opiate use Status: Chronic (9) Osteoporosis Status: Chronic (10) Right renal artery stenosis Status: Chronic (11) Secondary hyperparathyroidism Status: Chronic Immunizations: Have You Had Influenza Vaccine: Yes Influenza Vaccine Date: Mar 01, 2013 History of Tetanus Vaccine?: Yes Tetanus Immunization Date: Dec 18, 2009 History of Pneumococcal: Yes Pneumococcal Date: Jun 01, 2012 History of Hepatitis B Vaccine: No Medication Reconciliation New Medications: Amlodipine (Norvasc) 10 Mg Tab 10 MG PO DAILY for 15 Days, TAB Albuterol Sulf (Albuterol Sulfate) 2.5 Mg/3 Ml Nebu 2.5 MG INH Q6R PRN for sob/wheeze for 7 Days Clonidine HCl (Clonidine HCl) 1 Patch Tdsy 2 PATCH TD Cheney@0900, #10 PATCH 6 Refills Hydralazine HCl (Hydralazine HCl) 50 Mg Tab 75 MG PO TID, #120 TAB Hydromorphone HCl (Hydromorphone HCl) 2 Mg Tab 6 MG PO BID, #60 TAB Ipratropium-Albuterol (Duoneb) 3 Ml Nebu 3 ML INH Q4R for 7 Days Lidocaine (Lidocaine) 1 Patch Tdsy 1 PATCH TD QAM, #30 PATCH Lorazepam (Lorazepam) 1 Mg Tab 1 MG PO Q6 PRN for Anxiety, restlessness, agitati, #30 TAB Methadone HCl (Methadone HCl) 10 Mg Tab 30 MG PO TID, #90 TAB Polyethylene (Miralax) 17 Gm Pow 17 GM PO BID, #60 DOSE Continued Medications: Acetaminophen (Tylenol) 325 Mg Tab 650 MG PO Q6 PRN for Pain or Fever, TAB Allopurinol (Zyloprim) 100 Mg Tab 100 MG PO BID, TAB Baclofen (Lioresal) 10 Mg Tab 10 MG PO TID, TAB Carvedilol (Carvedilol) 25 Mg Tab 25 MG PO BID, #60 TAB 3 Refills Cholecalciferol (Vitamin D) 1,000 Inter.unit Tab 4000 INTER.UNIT PO DAILY, TAB Epinephrine (Epipen) 0.3 Mg/0.3 Ml Inj 0.3 MG IM UD PRN for ALLERGIC REACTION Ergocalciferol (Drisdol) 50,000 Unit Cap 31582 INTER.UNIT PO WEEKLY MONDAY Ferrous Sulfate ( Ferrous Sulfate) 325 Mg Tab 325 MG PO DAILY Fluticasone Prop/Salmeterol (Advair Diskus 250-50 Mcg/Dose) 14 Puff/1 Inhaler Aerp 1 PUFF INH BID, #1 Guaifenesin Ext Rel (Mucinex Ext Rel) 600 Mg Tab 600 MG PO BID, TAB Latanoprost 0.005% Oph (Xalatan 0.005% Oph) Soln 1 DROP OPR HS Lorazepam (Ativan) 0.5 Mg Tab 0.5 MG PO TID, #30 TAB 0 Refills Multivitamin (Multivitamin) Tab 1 TAB PO DAILY, TAB Pantoprazole (Protonix) 40 Mg Tab 40 MG PO BID, #30 TAB Polyethylene Glycol 3350 (Miralax) 1 Pow Pow 17 GM PO DAILY PRN for Constipation, #527 GM Prednisone (Prednisone) 1 Mg Tab 5 MG PO DAILY, TAB Sucralfate (Carafate) 1 Gm/10 Ml Qi 10 ML PO ACHS, ML Tiotropium [place] (Spiriva Handihaler) 18 Mcg/ Aerp 1 CAP INH DAILY, INHALER Zolpidem Tartrate (Ambien) 10 Mg Tab 10 MG PO HS Discharge Exam Review of Systems: Constitutional: No chills, No fever Respiratory: No cough, No dyspnea on exertion, No shortness of breath, No sputum Cardiovascular: No chest pain, No edema, No orthopnea Abdomen: No diarrhea, No nausea, No pain Musculoskeletal: No joint pain, No muscle pain Genitourinary - Female: No dysuria, No urinary frequency Psychiatric: + depression symptoms, No anhedonism Physical Exam: General Appearance: WD/WN, + mild distress Neck: supple, no JVD Respiratory/Chest: chest non-tender, lungs clear Cardiovascular: regular rate, rhythm, no murmur Abdomen / GI: normal bowel sounds, non tender, soft Extremities: no pedal edema, normal range of motion Neurologic/Psychiatric: alert, oriented x 3 Hospital Course 70 F admitted for treatment of pneumonia with concern for staph pneumonia, and difficult to control BP, has improved constipation and back pain HTN has history of difficult to control BP , given slight rise in Cr lasix held 08/02, increased hydralazine to 75 mg PO TID, Coreg 25 mg PO BID.Norvasc 10 mg PO daily. Catapres Patch 0.4 mg mg (two 0.2 mg patch), discussion of re assessment of renal artery stenosis with covering neprhologist, since BP is acceptable and with no symptoms associated with it will return to care of DR Temple as outpt to consider if MRA will be warranted Pneumonia/ Bronchiectasis Completed 10 day course of Zosyn and vancomycin secondary to positive MRSA swab, feels is better each day LBP improved with lidoderm and prn dialudid 08/03 severe constipation likely opiate induced bowel dysfunction, resolved with Relistor, suppository and increased miralox Chronic kidney disease 3 this limits Meds and contrast media considered for CTA/MRA Hyperparathyroidism vitamin D supplementation, calcium is stable oral candidiasis, start nystatin 08/01, resolved Total Time Spent: Greater than 30 minutes This includes examination of the patient, discharge planning, medication reconciliation, and communication with other providers. Discharge Instructions Please refer to the electronic Patient Visit Report (Discharge Instructions) for additional information.
[2016-09-09] MEDS ORDERED: DLD2 PO (07:31)
[2016-09-10] MEDS ORDERED: PRD/1 PO (10:44)
[2016-09-10] MEDS ORDERED: ADVIN25/60 INH (10:44)
[2016-09-10] MEDS ORDERED: RST15 PO (10:44)
[2016-09-10] MEDS ORDERED: PRED10TA PO (10:44)
[2016-09-10] MEDS ORDERED: METH10TA2 PO (10:44)
[2016-09-10] MEDS ORDERED: DLD2 PO (10:47)
[2016-09-10] MEDS ORDERED: SENN-61 PO (10:57)
[2016-10-25] MEDS ORDERED: LSX20 PO (06:57)
[2016-10-25] MEDS ORDERED: SULF800T23 PO (06:57)
[2016-10-25] MEDS ORDERED: APR25 PO (06:57)
[2016-10-25] MEDS ORDERED: NYSP EXT (06:57)
[2016-10-25] MEDS ORDERED: RST75 PO (06:57)
== END 2016-08-06 13:16 | DRG 178 ==
LOC: UNDOADMIN 18:22 → C.4E 18:22
PROVIDERS: ADMIT Family Medicine; ATTEND Internal Medicine
DX: J15.212 Pneumonia due to Methicillin resistant Staphylococcus aureus (principal); B37.0 Candidal stomatitis; I50.32 Chronic diastolic (congestive) heart failure; N25.81 Secondary hyperparathyroidism of renal origin; J44.1 Chronic obstructive pulmonary disease with (acute) exacerbation; E55.9 Vitamin D deficiency, unspecified; K59.03 Drug induced constipation; T40.605A Adverse effect of unspecified narcotics, initial encounter; N18.3 Chronic kidney disease, stage 3 (moderate); I12.9 Hypertensive chronic kidney disease with stage 1 through stage 4 chronic kidney disease, or unspecified chronic kidney disease; E78.5 Hyperlipidemia, unspecified; M81.0 Age-related osteoporosis without current pathological fracture; J47.9 Bronchiectasis, uncomplicated; I87.2 Venous insufficiency (chronic) (peripheral); M54.5 Low back pain; K21.9 Gastro-esophageal reflux disease without esophagitis; Z22.322 Carrier or suspected carrier of Methicillin resistant Staphylococcus aureus; Z85.41 Personal history of malignant neoplasm of cervix uteri; Z85.72 Personal history of non-Hodgkin lymphomas; Z82.49 Family history of ischemic heart disease and other diseases of the circulatory system; Z80.51 Family history of malignant neoplasm of kidney; Z87.891 Personal history of nicotine dependence

== ENCOUNTER 2016-08-29 05:26 | Inpatient (IN) | payer OTHER, MEDICARE ==
[2016-08-29] VITALS (7 sets, daily range): BP systolic 155–166; BP diastolic 79–95; PULSE 68–80; TEMP 36.4–36.9; O2SAT 89–95; Ht 149.9 cm; Wt 61.7 kg
[~2016-08-29] VITALS: Ht 149.9 cm; Wt 61.7 kg
[~2016-08-29 05:26] MED LIST changes: +ALBINS INH; +APR50 PO; +ATV1 PO; -CLON0.3T PO; +CTPTP2 TD; -HYDR-4717 PO; +HYDR2TAB3 PO; -HYDR2TAB48 PO; -HYDR4TAB2 PO; +IPRASOL4 INH; +LDDP5 TD; -LINE1TAB7 PO; -METH10TA2 PO; +MRLP17 PO; +MTH10 PO
[2016-08-29] MEDS ORDERED: METHYLPREDNISOLONE 125 MG VIAL IV STA (05:43)
[2016-08-29] MEDS ORDERED: LORAZEPAM 2 MG/ML 1 ML VIAL IV STA (05:43)
[2016-08-29 06:07] LABS: BASO % 0.1 %; BASO ABS # 0.01 K/uL (0-0.2); COMPLETE YES; EOS % 0.5 %; HEMATOCRIT 34.6 % (37-47); IG% 0.7 %; LYMPH ABS # 1.36 K/uL (1.2-3.4); MEAN CELL VOLUME 91.5 fL (80-100); MEAN CORPUSCULAR HEMOGLOBIN 29.4 pg (25-34); MEAN CORPUSCULAR HGB CONC 32.1 g/dl (32-36); MEAN PLATELET VOLUME 11.5 fL (7.4-10.4); MONO % 9.5 %; NEUT % 80.2 %; PLATELET COUNT 258 K/uL (130-400); RED BLOOD COUNT 3.78 M/uL (4.2-5.4); WHITE BLOOD COUNT 15.15 K/uL (4.8-10.8)
[2016-08-29] MEDS ORDERED: PIPERACILLIN/TAZOBACTAM 4.5 GM/100ML D5W IV STA (06:11)
--- NOTE | 2016-08-29 06:12 | EMERGENCY ROOM VISIT NOTE ---
History Report prepared by Lethaibyony: Sheila Brown Under the Supervision of: Dr. Tej Palacio M.D. First contact with patient: 05:38 Chief Complaint: RESPIRATORY PROBLEMS Stated Complaint: LOW OXYGEN SATURATION Nursing Triage Summary: patient has c/o SOB and diffculty breathing since 5pm yesterday. patient is a resident at [facility] and around midnight staff gave patient a duoneb with no improvement. patient presents via EMS being administered a duoneb treatment and spo2 currently 87%. patient does have hx of COPD and wears 3L oxygen via nasal cannula at home but since midnight staff has had her on 6L. patient states she still feels SOB at this time. patient also given albuterol prior to arrival . patient is currently being treated for MRSA with bactrim DS and has hx of diabetes. History of Present Illness The patient is a 70 year old female who presents to the Emergency Room with complaints of worsening shortness of breath for the past 1 week. She was brought to the ED via EMS from [facility], where she resides. She states around 1700 yesterday evening, her breathing really worsened. She has also had an intermittently productive cough and states the sputum looks like "green slime". The patient was given 2 breathing treatments this morning by staff at [facility] , but states they only provided minor relief. She normally wears 3 liters of Oxygen but reports she has been on 6 liters since midnight last night. She has history of COPD and reports she most recently had pneumonia in July 2016. She was treated here at [facility] and remained in the hospital for a short stay. She is still on a steroid taper. She is also currently on Bactrim for a history of a nasal MRSA infection. Source of History: patient Onset: 1 week STAFF RADIOLOGIST Position: chest Timing: worsening Modifying Factors (Relieving): oxygen, other (breathing treatments) Associated Symptoms: + cough Review of Systems See HPI for pertinent positives & negatives. A total of 10 systems reviewed and were otherwise negative. Past Medical & Surgical Medical Problems: (1) Ambulatory dysfunction (2) Cholelithiases (3) Chronic kidney disease (CKD) stage G3a/A1, moderately decreased glomerular filtration rate (GFR) between 45-59 mL/min/1.73 square meter and albuminuria creatinine ratio less than 30 mg/g (4) Chronic Kidney Disease, Stage Iii (Moderate) (5) Compression fracture of fourth lumbar vertebra (6) Constipation (7) Crystal arthritis (8) Duodenal bulb ulcer (9) DVT (deep venous thrombosis) (10) Fecal impaction of colon (11) Fracture of right olecranon process (12) Gout (13) Gout attack (14) Headache (15) Hodgkins lymphoma (16) Humerus fracture (17) Hyperlipidemia Nec/Nos (18) Hypertension (19) Hypertension (20) Hypertension (21) Hypertensive urgency (22) Hypertensive urgency (23) Hypertensive urgency (24) Intractable abdominal pain (25) Intractable pain (26) Intractable pain (27) Intractable pain (28) Knee pain (29) Left renal artery stenosis (30) Lower extremity edema (31) Lumbar compression fracture (32) Malignant HTN with heart disease, 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, with chronic kidney disease (33) Medication reaction (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 (35) Narcotic withdrawal (36) Narcotic withdrawal (37) Noncompliance with medication regimen (38) Noncompliance with medications (39) Opiate use (40) Osteoporosis (41) Perforated duodenal ulcer (42) PNA (pneumonia) (43) Pneumonia (44) right hand cellulitis (45) Right renal artery stenosis (46) Secondary hyperparathyroidism (47) Shortness of breath (48) Vomiting (49) Wedge compression fracture of T11 vertebra Surgical Problems: (1) History of kyphoplasty (2) left renal artery stent placement Family History Heart disease Social History Smoking Status: Former Smoker Alcohol Use: none Drug Use: none Marital Status: Housing Status: lives with family Occupation Status: disabled Current/Historical Medications Scheduled Allopurinol (Zyloprim), 100 MG PO BID Amlodipine (Norvasc), 10 MG PO DAILY Baclofen (Lioresal), 10 MG PO TID Carvedilol (Coreg), 25 MG PO BID Cholecalciferol (D-1000), 4,000 UNITS PO QD Clonidine HCl (Clonidine HCl), 2 PATCH TD Cheney@0900 Ergocalciferol (Drisdol), 50,000 INTER.UNIT PO WEEKLY Ferrous Sulfate (Kp Ferrous Sulfate), 325 MG PO DAILY Fluticasone Propionate (Nasal) (Flonase Allergy Relief Ch), 1 SPRAY ERIC BID Guaifenesin Ext Rel (Mucinex Ext Rel), 600 MG PO BID Hydralazine Hcl (Apresoline), 75 MG PO TID Hydromorphone Hcl (Dilaudid), 6 MG PO BID Latanoprost (Latanoprost), 1 DROP OPR HS Lidocaine (Lidocaine), 1 PATCH TD QAM Lorazepam (Ativan), 1 MG PO Q6H Multivitamin (Multivitamin), 1 TAB PO DAILY Pantoprazole (Protonix), 40 MG PO BID Polyethylene Glycol 3350 (Miralax), 17 GM PO BID Prednisone (Prednisone), 5 MG PO DAILY Sucralfate (Carafate), 10 ML PO ACHS Sulfa/Trimethoprim (Bactrim Ds 800MG/160MG), 1 TAB PO BID Tiotropium [place] (Spiriva Handihaler), 1 CAP INH DAILY Zolpidem Tartrate (Ambien), 10 MG PO HS Scheduled PRN Acetaminophen (Tylenol), 650 MG PO Q6 PRN for Pain or Fever Epinephrine (Epipen), 0.3 MG IM UD PRN for ALLERGIC REACTION Ipratropium-Albuterol (Duoneb), 1 TREATMENT INH Q4H PRN for WH Lorazepam (Ativan), 0.5 MG PO TID PRN for Anxiety Magnesium Hydroxide (Milk of Magnesia), 30 ML PO UD PRN for Constipation Methadone Hcl (Dolophine), 10 MG PO TID PRN for Pain Miscellaneous Medications Bisacodyl (Dulcolax), 1 SUPP FL Dextrose (Diabetic Use) (Insta-Glucose), 1 APPLN PO Glucagon (Glucagon Emergency Kit), 1 APPLN IM Sodium Phosphates (Fleet Enema Six Pack), 1 APPL RE Allergies Coded Allergies: Squash (Verified Allergy, Unknown, Zucchini, 08/29/16) Azithromycin (Verified Adverse Reaction, Unknown, nausea, 08/29/16) Levofloxacin (Verified Adverse Reaction, Unknown, nausea, 08/29/16) Physical Exam Vital Signs Date Time Temp Pulse Resp B/P Pulse Ox O2 Delivery O2 Flow Rate FiO2 08/29/16 07:23 70 136/95 90 Non-Rebreather 15.0 08/29/16 06:27 74 18 139/81 93 Non-Rebreather 15.0 08/29/16 05:49 92 Non-Rebreather 15.0 08/29/16 05:46 93 Non-Rebreather 15.0 08/29/16 05:44 71 4/3/17 05:37 72 20 147/74 93 Non-Rebreather 15.0 08/29/16 05:29 Nasal Cannula 6.0 08/29/16 05:29 36.8 69 22 147/74 92 High Flow Oxygen 15.0 Physical Exam GENERAL: Patient is in no acute distress. HEENT: No acute trauma, normocephalic atraumatic, mucous membranes moist, no nasal congestion, no scleral icterus. NECK: No stridor, no adenopathy, no meningismus, trachea is midline. LUNGS: Rhonchi bilaterally especially with expiration. No wheezing. Breath sounds are equal, no current respiratory distress. HEART: Irregular with a normal rate, no murmurs. ABDOMEN: Soft, nontender, bowel sounds positive, no hernias, no peritonitis. EXTREMITIES: No cyanosis, moderate bilateral pedal edema, full range of motion of all the joints without pain or difficulty, no signs for acute trauma. NEUROLOGIC: Oriented x 3, no acute motor or sensory deficits, no focal weakness. SKIN: No rash, no jaundice, no diaphoresis. Medical Decision & Procedures ER Provider Diagnostic Interpretation: This X-Ray was reviewed and interpreted by myself as we do not have a radiologist on staff overnight. CHEST X-RAY Right sided pneumonia seen on X-Ray. Laboratory Results 08/29/16 05:40 Red Blood Count 3.78, Mean Corpuscular Volume 91.5, Mean Corpuscular Hemoglobin 29.4, Mean Corpuscular Hemoglobin Concent 32.1, Mean Platelet Volume 11.5, Neutrophils (%) (Auto) 80.2, Lymphocytes (%) (Auto) 9.0, Monocytes (%) (Auto) 9.5, Eosinophils (%) (Auto) 0.5, Basophils (%) (Auto) 0.1, Neutrophils # (Auto) 12.16, Lymphocytes # (Auto) 1.36, Monocytes # (Auto) 1.44, Eosinophils # (Auto) 0.08, Basophils # (Auto) 0.01 08/29/16 05:40 Test 08/29/16 05:40 08/29/16 05:50 08/29/16 06:25 White Blood Count 15.15 K/uL (4.8-10.8) Red Blood Count 3.78 M/uL (4.2-5.4) Hemoglobin 11.1 g/dL (12.0-16.0) Hematocrit 34.6 % (37-47) Mean Corpuscular Volume 91.5 fL (80-100) Mean Corpuscular Hemoglobin 29.4 pg (25-34) Mean Corpuscular Hemoglobin Concent 32.1 g/dl (32-36) Platelet Count 258 K/uL (130-400) Mean Platelet Volume 11.5 fL (7.4-10.4) Neutrophils (%) (Auto) 80.2 % Lymphocytes (%) (Auto) 9.0 % Monocytes (%) (Auto) 9.5 % Eosinophils (%) (Auto) 0.5 % Basophils (%) (Auto) 0.1 % Neutrophils # (Auto) 12.16 K/uL (1.4-6.5) Lymphocytes # (Auto) 1.36 K/uL (1.2-3.4) Monocytes # (Auto) 1.44 K/uL (0.11-0.59) Eosinophils # (Auto) 0.08 K/uL (0-0.5) Basophils # (Auto) 0.01 K/uL (0-0.2) RDW Standard Deviation 56.3 fL (36.4-46.3) RDW Coefficient of Variation 16.9 % (11.5-14.5) Immature Granulocyte % (Auto) 0.7 % Immature Granulocyte # (Auto) 0.10 K/uL (0.00-0.02) Prothrombin Time 10.5 SECONDS (9.0-12.0) Prothromb Time International Ratio 1.0 (0.9-1.1) Activated Partial Thromboplast Time 26.5 SECONDS (21.0-31.0) Partial Thromboplastin Ratio 1.0 Anion Gap 6.0 mmol/L (3-11) Est Creatinine Clear Calc Drug Dose 22.7 ml/min Estimated GFR () 29.0 Estimated GFR (Non- 25.0 BUN/Creatinine Ratio 19.5 (10-20) Calcium Level 9.1 mg/dl (8.5-10.1) Magnesium Level 2.5 mg/dl (1.8-2.4) Total Bilirubin 0.3 mg/dl (0.2-1) Aspartate Amino Transf (AST/SGOT) 26 U/L (15-37) Alanine Aminotransferase (ALT/SGPT) 24 U/L (12-78) Alkaline Phosphatase 121 U/L (45-117) Troponin I < 0.015 ng/ml (0-0.045) Total Protein 7.3 gm/dl (6.4-8.2) Albumin 3.6 gm/dl (3.4-5.0) Globulin 3.7 gm/dl (2.5-4.0) Albumin/Globulin Ratio 1.0 (0.9-2) Procalcitonin < 0.05 ng/mL (0-0.5) Influenza Type A Antigen Neg for Influ A (NEG) Influenza Type B Antigen Neg for Influ B (NEG) Pro-B-Type Natriuretic Peptide 5532 pg/ml (0-900) Laboratory results reviewed by me. Medications Administered Medications (Trade) Dose Ordered Sig/Estephania Route Start Time Stop Time Status Last Admin Dose Admin Methylprednisolone Sodium Succinate (Solu-Medrol IV) 125 mg NOW STAT IV 08/29/16 05:43 08/29/16 05:47 DC 08/29/16 05:56 125 MG Lorazepam (Ativan Inj) 0.5 mg NOW STAT IV 08/29/16 05:43 08/29/16 05:47 DC 08/29/16 05:56 0.5 MG Piperacillin Sod/ Tazobactam Sod (Zosyn Iv) 4.5 gm NOW STAT IV 08/29/16 06:11 08/29/16 06:13 DC 08/29/16 06:34 4.5 GM ECG Indication: SOB/dyspnea Rate (beats per minute): 70 Rhythm: normal sinus (normal sinus rhythm) Findings: no acute ischemic change, other (LVH, artifact noted) ED Course 0540: The patient was evaluated in room A9. A complete history and physical exam was performed. 0543: Ativan 0.5 mg IV, Solu-Medrol 125 mg IV. 0611: Zosyn 4.5 gm IV. 0715: I discussed the patient's case with Dr. Hall, [facility] Hospitalist. The patient will be further evaluated. Medical Decision The differential diagnoses considered include pneumonia, bronchitis, CHF, pneumothorax, exacerbation of COPD, electrolyte imbalance, NV. There is a moderate leukocytosis which would be consistent with infection. No concerning anemia. Renal panel testing shows some dehydration with some mild acute renal failure. No significant electrolyte abnormality requiring correction. There was no hepatitis or coagulopathy. Influenza testing was negative. Blood cultures are pending. EKG shows a normal sinus rhythm with LVH , no acute ischemia. Cardiac enzyme testing times one is not consistent with acute cardiac injury. Chest x-ray shows what appears to be a right lower lung pneumonia. No pneumothorax. BNP was elevated consistent with possible fluid overload. Patient received a small amount of IV Ativan for anxiety. She was given IV Solu -Medrol and IV Zosyn. She was maintained on O2 supplementation. The patient does appear more comfortable. She does become hypoxic without O2 supplementation. She appears to have a pneumonia by workup. I do think admission/observation is warranted. I spoke with her and case management. The on-call hospitalist was consulted. Consults Time Called: [phone] Consulting Physician: Dr. Bill, [facility] Hospitalist Returned Call: [phone] I discussed the patient's case with Dr. Hall [facility] Hospitalist. The patient will be further evaluated. Impression Primary Impression: Hypoxia Additional Impressions: Pneumonia COPD exacerbation Scribe Attestation The scribe's documentation has been prepared under my direction and personally reviewed by me in its entirety. I confirm that the note above accurately reflects all work, treatment, procedures, and medical decision making performed by me. Departure Information Dispostion Being Evaluated By Hospitalist Referrals Marti Vila (PCP) Patient Instructions My [facility] Problem Qualifiers
[2016-08-29 06:22] LABS: PROTHROMBIN TIME (PATIENT) 10.5 SECONDS (9.0-12.0)
[2016-08-29 06:26] LABS: ALT/SGPT 24 U/L (12-78); AST/SGOT 26 U/L (15-37); BLOOD UREA NITROGEN 39 mg/dl (7-18); BUN/CREATININE RATIO 19.5 (10-20); CALCIUM 9.1 mg/dl (8.5-10.1); CARBON DIOXIDE 32 mmol/L (21-32); CHLORIDE 102 mmol/L (98-107); GLUCOSE 82 mg/dl (70-99); MAGNESIUM 2.5 mg/dl (1.8-2.4); POTASSIUM 4.1 mmol/L (3.5-5.1); SODIUM 140 mmol/L (136-145)
[2016-08-29 06:31] LABS: ALKALINE PHOSPHATASE 121 U/L (45-117)
[2016-08-29] MEDS ORDERED: CHOLTAB5 PO (06:56)
[2016-08-29] MEDS ORDERED: AMLO-110 PO (06:58)
[2016-08-29] MEDS ORDERED: XLTOPS OPR (06:59)
[2016-08-29] MEDS ORDERED: SPRIN/30 INH (07:02)
[2016-08-29] MEDS ORDERED: SULF800T23 PO (07:04)
[2016-08-29] MEDS ORDERED: CARV25TA PO (07:05)
[2016-08-29] MEDS ORDERED: FLUT1SPR12 NAE (07:05)
[2016-08-29] MEDS ORDERED: HYDR2TAB48 PO (07:07)
[2016-08-29] MEDS ORDERED: LORA-741 PO (07:09)
[2016-08-29] MEDS ORDERED: POLY335019 PO (07:11)
[2016-08-29] MEDS ORDERED: HYDR-4717 PO (07:11)
[2016-08-29] MEDS ORDERED: METH10TA2 PO (07:12)
[2016-08-29] MEDS ORDERED: BISA10SU3 PR (07:13)
[2016-08-29] MEDS ORDERED: SODI1ENE RE (07:15)
[2016-08-29] MEDS ORDERED: GLGKIT IM (07:17)
[2016-08-29] MEDS ORDERED: IPRASOL4 INH (07:19)
[2016-08-29] MEDS ORDERED: DEXT40GE PO (07:19)
[2016-08-29] MEDS ORDERED: ATV/1 PO (07:21)
[2016-08-29] MEDS ORDERED: MOMLX PO (07:22)
[2016-08-29] MEDS ORDERED: BISACODYL 10 MG SUPP PR PRN (07:45)
[2016-08-29] MEDS ORDERED: ALBUT/IPRATROP 3MG/0.5MG NEB 3 ML VIAL INH PRN (07:45)
[2016-08-29] MEDS ORDERED: ALUMINUM/MAGNESIUM/SIMETH (MAALOX MAX) 30 ML UDC PO PRN (07:45)
[2016-08-29] MEDS ORDERED: MAGNESIUM HYDROXIDE SUSP 30 ML UDC PO PRN ×2 (07:45)
[2016-08-29] MEDS ORDERED: SOD PHOSPHATE/SOD BIPHOSPHATE ENEMA 132 ML BTL PR PRN (07:45)
[2016-08-29] MEDS ORDERED: EPINEPHRINE ADULT AUTO-INJECT 0.3 MG SYR IM PRN (07:45)
[2016-08-29] MEDS ORDERED: LORAZEPAM 0.5 MG TAB PO PRN (07:45)
[2016-08-29] MEDS ORDERED: METHADONE HCL 10 MG TAB PO PRN (07:45)
[2016-08-29] MEDS ORDERED: IV FLUIDS COMPLETED PRN (08:15)
--- NOTE | 2016-08-29 08:28 | DIAGNOSTIC IMAGING REPORT ---
CHEST ONE VIEW PORTABLE HISTORY: EVALUATE RESPIRATORY DISTRESS.DYSPNEA COMPARISON: Chest 07/31/2016. FINDINGS: Old, healed left-sided rib fractures. No pneumothorax. The heart is mildly enlarged. Trace bilateral pleural effusions. There is progressive interstitial thickening, right greater left. There are bibasilar densities. Multiple vertebroplasty are noted. IMPRESSION: 1. Progressive interstitial thickening, right greater than left. There is also progressive cardiomegaly and trace bilateral pleural effusions. This favors mild asymmetric pulmonary edema. 2. Patchy bibasilar densities have also increased in may represent atelectasis or pneumonia. Electronically signed by: Stoney Bryson M.D. 08/29/2016 8:26 AM Dictated Date/Time: 08/29/2016 8:24 AM
[2016-08-29] MEDS: POLYETHYLENE (MIRALAX) 17 GM PACK PO SCH ×2 (08:55→22:24)
[2016-08-29] MEDS ORDERED: PRD/1 PO (09:20)
[2016-08-29] MEDS ORDERED: FERR1TAB13 PO (09:20)
[2016-08-29] MEDS ORDERED: ERGO50002 PO (09:20)
[2016-08-29] MEDS ORDERED: ALLO100T PO (09:46)
[2016-08-29] MEDS ORDERED: BACL10TA PO (10:08)
[2016-08-29] MEDS: LORAZEPAM 1 MG TAB PO PRN ×3 (10:35→23:06)
[2016-08-29] MEDS: CHOLECALCIFEROL 1000 INTER.UNIT TAB PO SCH (10:36)
[2016-08-29] MEDS: HYDROmorphone HCL 2 MG TAB PO SCH ×2 (10:36→22:14)
[2016-08-29] MEDS: BACLOFEN 10 MG TAB PO SCH ×3 (10:36→22:09)
[2016-08-29] MEDS: CARVEDILOL 25 MG TAB PO SCH ×2 (10:37→22:25)
[2016-08-29] MEDS: ALLOPURINOL 100 MG TAB PO SCH ×2 (10:37→22:10)
[2016-08-29] MEDS: MULTIVITAMIN TAB PO SCH (10:37)
[2016-08-29] MEDS: FERROUS SULFATE 325 MG TAB PO SCH (10:37)
[2016-08-29] MEDS: PANTOprazole SOD 40 MG TAB PO SCH ×2 (10:37→22:25)
[2016-08-29] MEDS: AMLODIPINE BESYLATE 5 MG TAB PO SCH (10:37)
[2016-08-29] MEDS: GUAIFENESIN 600 MG TABCR PO SCH ×2 (10:37→22:26)
[2016-08-29] MEDS: TIOTROPIUM BROMIDE 5 PUFF/90 MCG INH INH SCH (10:38)
[2016-08-29] MEDS: LIDODERM (LIDOCAINE) PATCH 5% TD SCH (10:38)
[2016-08-29] MEDS: SUCRALFATE 1 GM/10 ML UDC PO SCH ×3 (10:38→22:29)
[2016-08-29] MEDS: FLUTICASONE PROPIONATE NA SPR 16 GM BTL NAE SCH ×2 (10:38→22:08)
[2016-08-29] MEDS: HEPARIN SOD 5000 UNIT/0.5 ML CARP SQ SCH ×2 (10:50→23:41)
[2016-08-29] MEDS ORDERED: PANT40TA PO (11:40)
[2016-08-29] MEDS ORDERED: EPP3/2 IM (11:40)
[2016-08-29] MEDS ORDERED: ZOLP10TA PO (11:56)
[2016-08-29] MEDS ORDERED: ACET-1311 PO (12:30)
[2016-08-29] MEDS ORDERED: CRFL PO (13:01)
[2016-08-29] MEDS ORDERED: MULT-506 PO (13:01)
[2016-08-29] MEDS ORDERED: GUAI1TAB55 PO (13:01)
[2016-08-29] MEDS: CHECK CLONIDINE PATCH PLACEMENT SCH ×4 (16:00→23:41)
--- NOTE | 2016-08-29 19:20 | History and Physical ---
History & Physical Date of Service Aug 29, 2016. History & Physical full note to follow see prior H&P's as baseline information consistent pt well known to me from SNF and prior admissions suspect mucous plugging from bronchiectasis/fairly severe COPD >>>> acute active infection - especially w procalcitonin low. ?WBC from prior recent steroids most likely. hold further abx. aggressive pulmonary toilet, pulmonary eval. follow clinically follow labs. less likely PE. (if doesn't improve w pulmonary toilet will need to pursue) elevated BNP but does not clinically appear as CHF, and her background hx has not typically been that of CHF exacerbations
[2016-08-29] MEDS: ALBUT/IPRATROP 3MG/0.5MG NEB 3 ML VIAL INH SCH ×2 (21:00→23:29)
[2016-08-29] MEDS: METHYLPREDNISOLONE IV 60 MG in SYRINGE 0 ML IV SCH (22:08)
[2016-08-29] MEDS: ZOLPIDEM TARTRATE 10 MG TAB PO SCH (22:14)
[2016-08-29] MEDS: LATANOPROST 0.005% OP SOLN 2.5 ML BTL OPR SCH (22:15)
[2016-08-29] MEDS ORDERED: ZOLPIDEM TARTRATE 10 MG TAB PO PRN (23:30)
[2016-08-29] MEDS ORDERED: NURSING VERBAL MED ORDER ONE (23:30)
[2016-08-30] VITALS (13 sets, daily range): BP systolic 136–158; BP diastolic 73–82; PULSE 71–89; TEMP 36.5–36.6; O2SAT 89–92
[2016-08-30] MEDS: ALBUT/IPRATROP 3MG/0.5MG NEB 3 ML VIAL INH SCH ×6 (03:07→23:02)
[2016-08-30] MEDS: SUCRALFATE 1 GM/10 ML UDC PO SCH ×4 (06:22→19:50)
[2016-08-30 07:12] LABS: BASO % 0.1 %; BASO ABS # 0.01 K/uL (0-0.2); COMPLETE YES; HEMATOCRIT 32.7 % (37-47); IG% 0.9 %; LYMPH % 9.7 %; LYMPH ABS # 0.94 K/uL (1.2-3.4); MEAN CELL VOLUME 90.3 fL (80-100); MEAN CORPUSCULAR HEMOGLOBIN 29.3 pg (25-34); MEAN CORPUSCULAR HGB CONC 32.4 g/dl (32-36); MEAN PLATELET VOLUME 11.7 fL (7.4-10.4); MONO % 3.6 %; NEUT % 85.7 %; PLATELET COUNT 224 K/uL (130-400); RED BLOOD COUNT 3.62 M/uL (4.2-5.4); WHITE BLOOD COUNT 9.67 K/uL (4.8-10.8)
[2016-08-30 07:37] LABS: BUN/CREATININE RATIO 21.4 (10-20); CALCIUM 9.5 mg/dl (8.5-10.1); CREATININE 1.9 mg/dl (0.60-1.20); POTASSIUM 4.4 mmol/L (3.5-5.1)
[2016-08-30] MEDS: POLYETHYLENE (MIRALAX) 17 GM PACK PO SCH ×2 (08:00→19:52)
[2016-08-30] MEDS: CARVEDILOL 25 MG TAB PO SCH ×2 (08:03→19:51)
[2016-08-30] MEDS: AMLODIPINE BESYLATE 5 MG TAB PO SCH (08:03)
[2016-08-30] MEDS: GUAIFENESIN 600 MG TABCR PO SCH ×2 (08:03→19:51)
[2016-08-30] MEDS: ALLOPURINOL 100 MG TAB PO SCH ×2 (08:03→19:51)
[2016-08-30] MEDS: BACLOFEN 10 MG TAB PO SCH ×3 (08:03→19:51)
[2016-08-30] MEDS: TIOTROPIUM BROMIDE 5 PUFF/90 MCG INH INH SCH (08:04)
[2016-08-30] MEDS: METHYLPREDNISOLONE IV 60 MG in SYRINGE 0 ML IV SCH ×3 (08:04→19:51)
[2016-08-30] MEDS: PANTOprazole SOD 40 MG TAB PO SCH ×2 (08:04→19:51)
[2016-08-30] MEDS: HYDROmorphone HCL 2 MG TAB PO SCH ×2 (08:04→19:54)
[2016-08-30] MEDS: FLUTICASONE PROPIONATE NA SPR 16 GM BTL NAE SCH ×2 (08:05→19:51)
[2016-08-30] MEDS: CHECK CLONIDINE PATCH PLACEMENT SCH ×4 (08:10→16:15)
[2016-08-30] MEDS: LORAZEPAM 1 MG TAB PO PRN ×3 (08:22→19:58)
[2016-08-30] MEDS: MULTIVITAMIN TAB PO SCH (08:27)
[2016-08-30] MEDS: CHOLECALCIFEROL 1000 INTER.UNIT TAB PO SCH (08:28)
[2016-08-30] MEDS: FERROUS SULFATE 325 MG TAB PO SCH (08:28)
[2016-08-30] MEDS: LIDODERM (LIDOCAINE) PATCH 5% TD SCH (08:28)
[2016-08-30] MEDS ORDERED: FUROSEMIDE INJ 40 MG in SYRINGE 0 ML IV ONE (08:45)
[2016-08-30] MEDS: ACETAMINOPHEN 325 MG TAB PO PRN ×2 (09:32→14:05)
--- NOTE | 2016-08-30 09:52 | HISTORY & PHYSICAL EXAMINATION ---
DATE OF ADMISSION: 08/29/2016 CHIEF COMPLAINT: Shortness of breath. HISTORY OF PRESENT ILLNESS: History is actually extremely limited from the patient as she is relatively somnolent from being short of breath at the time that I see her, although interestingly in the ER she gets much more of a history and later in day on review of nursing notes, she is actually much more awake and alert but to me she basically just reports having felt more short of breath and that is about it. No other HPI or review of systems directly obtainable. On review of the ER and in discussion with the ER, she apparently was complaining of shortness of breath that started about 5:00 yesterday evening. Nebs did not really help. She was 87% on oxygen there. They cranked up her oxygen to 6 liters, but she was still hypoxic and still feeling short of breath. She has had a run of recent MRSA pneumonias and bronchiectasis exacerbations. She has had an intermittently productive cough that she described as green slime. She is still on a steroid taper from her most recent bronchiectasis exacerbation. Again, that is all taken from records as the patient herself offers me essentially nil. PAST MEDICAL HISTORY: Includes COPD with a fairly low FEV1. PFTs done about a year ago, CKD stage III, venous stasis edema, chronic diastolic dysfunction, generally compensated renal artery stenosis, hypertension, hyperlipidemia, GERD, weakness, deconditioning, severe osteoporosis, bronchiectasis, hyperparathyroidism, vitamin D deficiency, cervical carcinoma in situ, Hodgkin's lymphoma, chronic constipation, chronic respiratory failure. PAST SURGICAL HISTORY: Kyphoplasty fracture repairs, renal artery stenting. ALLERGIES: ZITHROMAX, LEVAQUIN. SOCIAL HISTORY: Former smoker, uncertain how many pack years. Did not seem to be for very long and quit a while ago, , currently residing at [facility]. FAMILY HISTORY: Heart disease and kidney cancer. No diabetes. MEDICATIONS: Allopurinol 100 mg b.i.d., Norvasc 10 mg daily, baclofen 10 mg t.i.d., Coreg 25 b.i.d., vitamin D 4000 daily, clonidine 2 patches daily, ergocalciferol 50,000 units weekly, iron sulfate 325 daily, Flonase 1 spray b.i.d., Mucinex 600 mg b.i.d., hydralazine 75 mg t.i.d., Dilaudid 6 mg b.i.d., latanoprost drops at bedtime, lidocaine patch daily, Ativan 1 mg q. 6, multivitamin daily, Protonix 40 mg b.i.d., MiraLax 17 grams b.i.d., Prednisone 5 mg daily, Carafate 10 mL q.a.c. and at bedtime, Bactrim DS b.i.d., Spiriva 18 mcg daily, zolpidem 10 mg at bedtime, Tylenol 650 q. 6 p.r.n., EpiPen p.r.n. allergic reaction, DuoNeb q. 4, Ativan 0.5 t.i.d., milk of mag 30 mL p.r.n. constipation, methadone 10 mg t.i.d., Dulcolax suppository p.r.n., glucagon, dextrose p.r.n., Fleet enema rectally p.r.n. constipation. ALLERGIES: SQUASH, ZITHROMAX AND LEVAQUIN. PHYSICAL EXAMINATION: VITAL SIGNS: Temperature 36.8, pulse 69, respiratory rate 22, blood pressure 147/74, 92% on 15 liters. GENERAL: She awakens, recognizes me, knows where she is, but is in no distress. HEAD, EYES, EARS, NOSE, AND THROAT: Normocephalic, atraumatic. Mucous membranes are moist. CARDIOVASCULAR: Distant. No rubs, murmurs, or gallops. LUNGS: Diminished bibasilar breath sounds, maybe faint rales on the right. ABDOMEN: Soft, nondistended, nontender. No masses or organomegaly. EXTREMITIES: Without cyanosis, clubbing, about 1+ edema and not as bad as she usually is, no erythema. NEUROLOGIC: Shows cranial nerves II-XII to be grossly intact. Gross motor and sensory are intact. MUSCULOSKELETAL EXAMINATION: Shows no gross lesions. Neuro shows no focal deficits. MENTAL STATE: She is somnolent, wakes up, recognizes where she is but offers very little outside of that. LABORATORIES AND DIAGNOSTICS: CBC shows a white count of 15.2 with 80% neutrophils, hemoglobin 11.1, platelets 258. Complete metabolic panel with sodium 140, potassium 4.1, chloride 102, CO2 32, BUN 39, creatinine 2, calcium 9.1, glucose 82, mag 2.5. Total bili 0.3 with an AST 26, ALT 24, alkaline phosphatase 121. Troponin of less than 0.015. BNP of 5532. Total protein 7.3, albumin 3.6. Procalcitonin less than 0.5. PT 10.5, PTT 26.5. Flu is negative. Chest x-ray seems to show a right basilar infiltrate, some interstitial thickening, trace bilateral pleural effusions. ASSESSMENT AND PLAN: 1. Hypoxia. More than likely this appears to be mucus plugging from bronchiectasis much more likely than a repeat acute infection. Given her overall clinical status, her vitals and her procalcitonin will refrain from further antibiotics, follow her closely, manage her with supportive care. Pulmonary toilet. Ask pulmonary to see her as far as does she possibly need a bronchoscopy. This was offered the last time and she declined. Certainly will need to keep pulmonary emboli on the differential, although this seems unlikely given her positive lung findings both on radiography and on exam. Will also follow her BNP. This does not really appear to be a decompensation of CHF. She is not edematous as she has been on other times and rarely seems to be CHF exacerbation; however, she is also notoriously not so complaint with a low sodium diet, and BNP is a little bit higher than it normally is although this is probably due to her CKD. Will follow closely with pulmonary toilet. Repeat a BNP in the a.m. and follow. 2. Chronic respiratory failure with severe underlying COPD, ongoing supportive care as above. 3. Chronic diastolic congestive heart failure as above. 4. Hypertension. Continue her home meds and follow. 5. Chronic kidney disease approximately stage III. She is around her baseline. She seems to worsen abruptly with diuretics. Will need to follow closely. 6. Deep venous thrombosis prophylaxis. Heparin subQ. 7. Chronic pain. Continue her home pain meds. 8. Osteoporosis. Continue her home meds. 9. Disposition: For now will observe on med/surg and follow closely.
[2016-08-30] MEDS: HEPARIN SOD 5000 UNIT/0.5 ML CARP SQ SCH ×2 (10:47→22:06)
[2016-08-30 12:57] LABS: ALLEN TEST POS (POS); ARTERIAL BLD GAS O2 SATURATION 89.5 % (90-95); ARTERIAL BLOOD GAS BASE EXCESS 8.7 mEq/L (-9-1.8); ARTERIAL BLOOD GAS HCO3 34 mmol/L (19-24); ARTERIAL BLOOD GAS PO2 57 mm/Hg (80-95); ARTERIAL BLOOD GAS pH 7.46 (7.35-7.45); O2 ADMINISTRATION 15L
--- NOTE | 2016-08-30 17:27 | Pulmonary Consultation ---
History General Date of Service: Aug 30, 2016. Stated Complaint: Shortness Of Breath HPI The patient is a 70 year old female who presents to [facility] with complaints of Shortness Of Breath. The patient's primary care provider is Marti Vila. 62-year-old female admitted to [facility] 08/29/16 with increased shortness breath, hypoxia, and productive cough. Prior records reviewed. PMHx is as below per does include history of 3LPM O2 - dependent COPD/Emphysema (10/2015: FEV1: 0.8/43%), chronic LLE DVT, gastric duodenal ulcer with perforation, Hodgkin lymphoma, CKD III with renal artery stenosis. She is a former smoker. Her pulmonary history is notable for frequent recurrent pneumonia with hospitalization 07/2015, 09/2015, 10/2015 (new O2 requirement), 03/2016, and 2016. Bronchoscopy completed in 09/2015 for persistent right-sided infiltrative changes which was notable for bibasilar mucoid impaction as well as rare Coby. Sputum cultures from 04/2016 and 07/2016: + MRSA. Echocardiogram: 10/2015: LVEF > 70%, diastolic dysfunction CT 06/2016: emphysema with basilar foci of atelectasis Patient was transported to the emergency department for/IIIb EMS from heart side with 1 week history of cough productive of thick green sputum and hypoxia. She had been on a course of Bactrim and prednisone per records. On admission WBC 15.15 with elevated BNP (5532), Influenza negative. Procalcitonin: negative. CXR: progressive interstitial changes with patchy bibasilar densities and trace pleural effusions. She was markedly hypoxic requiring 8-9LPM from her baseline 3LPM. She is somnolent - majority of history obtained [place]. [place] [address], WBC improved to 9.67, CO2: 31. She has received IV methylprednisolone, Q4-hour duo-nebs, Mucinex and pip-tazo coverage. Historian: patient, other (Records ) Review of Systems Constitutional: reports: malaise, denies: fever Eyes: reports: no symptoms ENT: denies: epistaxis, sore throat Cardiovascular: denies: chest pain, chest pressure, palpitations Respiratory: reports: cough, shortness of breath, sputum production, denies: hemoptysis Gastrointestinal: reports: appetite changes, denies: abdominal pain Integumentary: denies: rash Hematologic / Lymphatic: denies: easy bleeding, easy bruising Past Medical History Past Medical History: 1. COPD/Emphysema 2. Oxygen dependent 3. Gout 4. Basal Cell Carcinoma - cheek 5. Restless leg syndrome 6. Pneumonia 7. Hypertension 8. CKD III/IV 9. Renal artery stenosis 10. Reflex sympathetic dystrophy 11. Chronic LLE DVT 12. Anemia 13. Hyperparathyroidism 14. Diastolic cardiac dysfunction 15. Bronchiectasis 16. Chronic prednisone 17. Cholecystitis 18. Compression fractures of the spine 19. Urinary Tract infection: proteus penneri Past Surgical History: 1. Bronchoscopy 2. Kyphoplasty 3. Mohs Procedure 4. Cervical Conization 5. José Miguel patch - duodenal perforation 6. Renal artery stent Family History Heart disease Social History Hx Tobacco Use In Past Year?: No (quit in 1977) Smoking Status: Former Smoker Marital status: Housing status: snf Occupational Status: disabled Immunizations History of Influenza Vaccine: Yes Influenza Vaccine Date: Mar 01, 2013 History of Tetanus Vaccine?: Yes Tetanus Immunization Date: Dec 18, 2009 History of Pneumococcal: Yes Pneumococcal Date: Jun 01, 2012 History of Hepatitis B Vaccine: No History of MDRO History of MDRO: Yes Type of MDRO: MRSA Allergies Coded Allergies: Squash (Verified Allergy, Unknown, Zucchini, 08/29/16) Azithromycin (Verified Adverse Reaction, Unknown, nausea, 08/29/16) Levofloxacin (Verified Adverse Reaction, Unknown, nausea, 08/29/16) Current Medications Reported Home Medications Medications Dose Route/Sig Max Daily Dose Days Date Category Dose Instructions Milk of Magnesia (Magnesium Hydroxide) 30 Ml Susp 30 Ml PO UD PRN 08/29/16 Reported NEEDED FOR NO B/M FOR 9 SHIFTS Ativan (Lorazepam) 1 Mg Tab 1 Mg PO Q6H 08/29/16 Reported NEEDED FOR ANXIETY, AGITATION, OR RESTLESSNESS NOT TO EXCEED 2GRAMS/24 HOURS Duoneb (Ipratropium-Albuterol) 3 Ml Nebu 1 Treatment INH Q4H PRN 08/29/16 Reported Insta-Glucose (Dextrose (Diabetic Use)) 77.4 % Gel 1 Appln PO 08/29/16 Reported GIVE EVERY 15 MINUTES NEEDED FOR HYPOGLYCEMIA BLOOD GLUCOSE LESS THAN 60 AND/OR SYMPTOMATIC HYPOGLYCEMIA ( MUST BE RESPONSIVE AND ABLE TO SWALLOW) Glucagon Emergency Kit (Glucagon) 1 Mg Kit 1 Appln IM 08/29/16 Reported EVERY 15 MINS NEEDED FOR HYPOGLYCEMIA BLOOD GLUCOSE < 50 AND OR SYMPTOMATIC/UNRESPONSIVE HYPOGLYCEMIA. MAY REPEAT IN 15 MINS IF NEEDED Fleet Enema Six Pack (Sodium Phosphates) 1 Lisa Lisa 1 Appl RE 08/29/16 Reported GIVE 4 HOURS AFTER DULCOLAX SUPP. IF NOT EFFECTIVE Dulcolax (Bisacodyl) 10 Mg Sup 1 Supp LA 08/29/16 Reported GIVE ON DAY 4 NO B/M Dolophine (Methadone HCl) 10 Mg Tab 10 Mg PO TID PRN 08/29/16 Reported Apresoline (Hydralazine Hcl) 50 Mg Tab 75 Mg PO TID 08/29/16 Reported HOLD IF SYSTOLIC BP IS < 100 AND OR HR IS <50 Ativan (Lorazepam) 0.5 Mg Tab 0.5 Mg PO TID PRN 08/29/16 Reported Dilaudid (Hydromorphone Hcl) 2 Mg Tab 6 Mg PO BID 08/29/16 Reported Flonase Allergy Relief Ch (Fluticasone Propionate (Nasal)) 50 Mcg/Act Spr 1 [place] ERIC BID 08/29/16 Reported Coreg (Carvedilol) 25 Mg Tab 25 Mg PO BID 08/29/16 Reported HOLD FOR APICAL HR <50 Bactrim Ds 800MG/160MG (Trimethoprim/Sulfamethoxazole) Tab 1 Tab PO BID 08/29/16 Reported START 08/28 FOR 10 DAYS FOR MRSA OF SPUTUM Spiriva Handihaler (Tiotropium Salome) 30 Puff/540 Mcg Aerp 1 Cap INH DAILY 08/29/16 Reported Latanoprost 37 Drops/2.5 Ml Soln 1 Drop OPR HS 08/29/16 Reported Norvasc (Amlodipine Besylate) 5 Mg Tab 10 Mg PO DAILY 08/29/16 Reported HOLD FOR APICAL HR <50 D-1000 (Cholecalciferol) 1,000 Unit Tab 4,000 Units PO QD 08/29/16 Reported Lidocaine 1 Patch Tdsy 1 Patch TD QAM 08/06/16 Rx Clonidine HCl 1 Patch Tdsy 2 Patch TD MO@0900 08/06/16 Rx Ambien (Zolpidem Tartrate) 10 Mg Tab 10 Mg PO HS 04/22/16 Reported Prednisone 1 Mg Tab 5 Mg PO DAILY 03/14/16 Reported ON HOLD BY PHYSICIAN Kp Ferrous Sulfate (Ferrous Sulfate) 325 Mg Tab 325 Mg PO DAILY 03/14/16 Reported Drisdol (Ergocalciferol) 50,000 Unit Cap 50,000 Inter.unit PO WEEKLY 03/14/16 Reported MONDAY Epipen (Epinephrine) 0.3 Mg/0.3 Ml Inj 0.3 Mg IM UD PRN 10/28/15 Reported Protonix (Pantoprazole Sodium) 40 Mg Tab 40 Mg PO BID 10/28/15 Reported Miralax (Polyethylene Glycol 3350) 1 Pow Pow 17 Gm PO BID 10/02/15 Reported Zyloprim (Allopurinol) 100 Mg Tab 100 Mg PO BID 08/08/15 Reported Multivitamin (Multivitamins) Tab 1 Tab PO DAILY 08/05/15 Reported Mucinex Ext Rel (Guaifenesin) 600 Mg Tab 600 Mg PO BID 08/05/15 Reported Carafate (Sucralfate) 1 Gm/10 Ml Qi 10 Ml PO ACHS 08/05/15 Reported Tylenol (Acetaminophen) 325 Mg Tab 650 Mg PO Q6 PRN 06/11/15 Reported Lioresal (Baclofen) 10 Mg Tab 10 Mg PO TID 05/02/15 Reported Physical Physical Exam Vital Signs: Date Time Temp Pulse Resp B/P Pulse Ox O2 Delivery O2 Flow Rate FiO2 08/30/16 16:49 36.6 76 18 136/73 90 Venturi Mask 15.0 08/30/16 16:00 90 Venturi Mask 15.0 50 08/30/16 15:56 89 22 89 Venturi Mask 15.0 50 08/30/16 11:45 80 22 92 Venturi Mask 15.0 50 08/30/16 08:57 91 Mask 8.0 08/30/16 08:46 75 148/75 91 Mask 8.0 08/30/16 08:00 92 Mask 8.0 08/30/16 07:59 36.6 71 22 145/82 92 Mask 9.0 08/30/16 07:51 80 22 91 Diffusion Mask 9.0 08/30/16 00:05 36.5 75 20 145/81 91 Mask 9.0 08/30/16 00:01 Mask 10.0 08/29/16 21:01 80 22 92 Diffusion Mask 8.0 94 08/29/16 19:29 36.4 74 20 160/79 90 Nasal Cannula 10.0 Constitutional: Acutely ill appearing elderly female lying in hospital bed. No acute distress. Head: + facial symmetry - oxygen mask in place. Eyes: EOMi, PERRLA, no conjunctival injection Mouth: Food and debris noted on tongue. No erythema, exudate, or post nasal gtt Neck: Trachea midline. No adenopathy or masses Respiratory: Non-labored respirations. Bilateral rhonchi. Cardiovascular: RRR, no MRG. +2 radial pulses. <1s capillary refill. Abdomen: soft, active bowel sounds Integumentary: no rashes, or ecchymosis MSK/Extremities: Moving and developed symmetrically. +1 LLE edema. None on right. No calf tenderness. Neurologic: Somnolent - opens eyes and answers questions appropriately to voice prompting but falls asleep easily. Diagnostics Labs Results Past 24 Hours Test 08/30/16 06:37 08/30/16 12:14 Range/Units White Blood Count 9.67 4.8-10.8 K/uL Red Blood Count 3.62 4.2-5.4 M/uL Hemoglobin 10.6 12.0-16.0 g/dL Hematocrit 32.7 37-47 % Mean Corpuscular Volume 90.3 80-100 fL Mean Corpuscular Hemoglobin 29.3 25-34 pg Mean Corpuscular Hemoglobin Concent 32.4 32-36 g/dl Platelet Count 224 130-400 K/uL Mean Platelet Volume 11.7 7.4-10.4 fL Neutrophils (%) (Auto) 85.7 % Lymphocytes (%) (Auto) 9.7 % Monocytes (%) (Auto) 3.6 % Eosinophils (%) (Auto) 0.0 % Basophils (%) (Auto) 0.1 % Neutrophils # (Auto) 8.28 1.4-6.5 K/uL Lymphocytes # (Auto) 0.94 1.2-3.4 K/uL Monocytes # (Auto) 0.35 0.11-0.59 K/uL Eosinophils # (Auto) 0.00 0-0.5 K/uL Basophils # (Auto) 0.01 0-0.2 K/uL RDW Standard Deviation 55.1 36.4-46.3 fL RDW Coefficient of Variation 16.8 11.5-14.5 % Immature Granulocyte % (Auto) 0.9 % Immature Granulocyte # (Auto) 0.09 0.00-0.02 K/uL Sodium Level 139 136-145 mmol/L Potassium Level 4.4 3.5-5.1 mmol/L Chloride Level 101 98-107 mmol/L Carbon Dioxide Level 31 21-32 mmol/L Anion Gap 7.0 3-11 mmol/L Blood Urea Nitrogen 41 7-18 mg/dl Creatinine 1.90 0.60-1.20 mg/dl Est Creatinine Clear Calc Drug Dose 23.9 ml/min Estimated GFR () 30.9 Estimated GFR (Non- 26.6 BUN/Creatinine Ratio 21.4 10-20 Random Glucose 116 70-99 mg/dl Calcium Level 9.5 8.5-10.1 mg/dl Pro-B-Type Natriuretic Peptide 30212 0-900 pg/ml Arterial Blood pH 7.46 7.35-7.45 Arterial Blood Partial Pressure CO2 48 35-46 mmHg Arterial Blood Partial Pressure O2 57 80-95 mm/Hg Arterial Blood HCO3 34 19-24 mmol/L Arterial Blood Oxygen Saturation 89.5 90-95 % Arterial Blood Base Excess 8.7 -9-1.8 mEq/L Arterial Blood Gas Delivery 15L Leroy Test POS POS Impression Assessment and Plan 70-yo female with multiple medical comorbidities including staph pulmonary pathogen, COPD/Emphysema and diastolic heart dysfunction admitted with hypoxia and purulent cough: 1. Sputum culture 2. Pulmonary toilet: expectorant and positional changes, unsure if she could tolerate VEST - discussed bronchoscopy with patient and she is agreeable this hospital stay. At this time she is to unstable to undergo procedure without intubation and will continue to monitor for appropriateness 3. MRSA and aspiration coverage and agree with steroid and bronchodilators as prescribed 4. Daily weights and repeat CXR tomorrow 5. ABG and BIPAP if CO2 retention 6. Swallow study and repeat ECHO prior to discharge Patient seen and discussed. Agree with plan.
--- NOTE | 2016-08-30 19:49 | Progress Note ---
Subjective Date of Service: Aug 30, 2016. Subjective Pt evaluation today including: conversation w/ patient, physical exam, chart review, lab review, review of inpatient medication list despite apparently being more awake and alert w nursing at different times, once again fairly somnolent with me today (saw around noon) essentially no HPI or ROS obtainable Problem List Medical Problems: (1) Bilateral pneumonia Status: Acute (2) CHF (congestive heart failure) Status: Acute (3) Chronic Kidney Disease, Stage Iii (Moderate) Status: Chronic (4) COPD exacerbation Status: Acute (5) COPD exacerbation Status: Acute (6) Crystal arthritis Status: Chronic (7) Duodenal bulb ulcer Status: Chronic (8) Failure of outpatient treatment Status: Acute (9) Failure of outpatient treatment Status: Acute (10) Gout Status: Chronic (11) Hyperlipidemia Nec/Nos Status: Chronic (12) Hypertension Status: Chronic (13) Hypoxemia Status: Acute (14) Hypoxia Status: Acute (15) Hypoxia Status: Acute (16) Hypoxia Status: Acute (17) Hypoxia Status: Acute (18) Lumbar compression fracture Status: Chronic (19) Opiate use Status: Chronic (20) Osteoporosis Status: Chronic (21) Peripheral edema Status: Acute (22) Pneumonia Status: Acute (23) Pneumonia Status: Acute (24) Pneumonia involving right lung Status: Acute (25) Respiratory acidosis Status: Acute (26) Respiratory distress Status: Acute (27) Right renal artery stenosis Status: Chronic (28) Secondary hyperparathyroidism Status: Chronic (29) UTI (urinary tract infection) Status: Acute Review of Systems ros otherwise negative except for as above Objective Vital Signs Date Time Temp Pulse Resp B/P Pulse Ox O2 Delivery O2 Flow Rate FiO2 08/30/16 16:49 36.6 76 18 136/73 90 Venturi Mask 15.0 08/30/16 16:00 90 Venturi Mask 15.0 50 08/30/16 15:56 89 22 89 Venturi Mask 15.0 50 08/30/16 11:45 80 22 92 Venturi Mask 15.0 50 08/30/16 08:57 91 Mask 8.0 08/30/16 08:46 75 148/75 91 Mask 8.0 08/30/16 08:00 92 Mask 8.0 08/30/16 07:59 36.6 71 22 145/82 92 Mask 9.0 08/30/16 07:51 80 22 91 Diffusion Mask 9.0 08/30/16 00:05 36.5 75 20 145/81 91 Mask 9.0 08/30/16 00:01 Mask 10.0 08/29/16 21:01 80 22 92 Diffusion Mask 8.0 94 Physical Exam General Appearance: + pertinent finding (in bed O2 mask on, no distress but fairly somnolent) ENT: hearing grossly normal Neck: trachea midline Respiratory/Chest: no respiratory distress, no accessory muscle use, + decreased breath sounds (globally but similar to baseline), + pertinent finding (base R rales) Cardiovascular: regular rate, rhythm Extremities: + pedal edema (trace to 1+ at worst, symmetric) Neurologic/Psychiatric: continuous improvement facilitator II-XII nml as tested Skin: normal color (no cyanosis) Laboratory Results Last 24 Hours Test 08/30/16 06:37 08/30/16 12:14 White Blood Count 9.67 K/uL Red Blood Count 3.62 M/uL Hemoglobin 10.6 g/dL Hematocrit 32.7 % Mean Corpuscular Volume 90.3 fL Mean Corpuscular Hemoglobin 29.3 pg Mean Corpuscular Hemoglobin Concent 32.4 g/dl Platelet Count 224 K/uL Mean Platelet Volume 11.7 fL Neutrophils (%) (Auto) 85.7 % Lymphocytes (%) (Auto) 9.7 % Monocytes (%) (Auto) 3.6 % Eosinophils (%) (Auto) 0.0 % Basophils (%) (Auto) 0.1 % Neutrophils # (Auto) 8.28 K/uL Lymphocytes # (Auto) 0.94 K/uL Monocytes # (Auto) 0.35 K/uL Eosinophils # (Auto) 0.00 K/uL Basophils # (Auto) 0.01 K/uL RDW Standard Deviation 55.1 fL RDW Coefficient of Variation 16.8 % Immature Granulocyte % (Auto) 0.9 % Immature Granulocyte # (Auto) 0.09 K/uL Sodium Level 139 mmol/L Potassium Level 4.4 mmol/L Chloride Level 101 mmol/L Carbon Dioxide Level 31 mmol/L Anion Gap 7.0 mmol/L Blood Urea Nitrogen 41 mg/dl Creatinine 1.90 mg/dl Est Creatinine Clear Calc Drug Dose 23.9 ml/min Estimated GFR () 30.9 Estimated GFR (Non- 26.6 BUN/Creatinine Ratio 21.4 Random Glucose 116 mg/dl Calcium Level 9.5 mg/dl Pro-B-Type Natriuretic Peptide 30312 pg/ml Arterial Blood pH 7.46 Arterial Blood Partial Pressure CO2 48 mmHg Arterial Blood Partial Pressure O2 57 mm/Hg Arterial Blood HCO3 34 mmol/L Arterial Blood Oxygen Saturation 89.5 % Arterial Blood Base Excess 8.7 mEq/L Arterial Blood Gas Delivery 15L Leroy Test POS Assessment and Plan 1. Hypoxia. -mucous plugging related to prior pneumonia and bronchiectasis most likely -ABG since still off and on somnolent -ongoign aggressive pulmonary toilet -no clear need for abx at this time -agree w therapeutic bronch since failing more conservative therapy -w BNP gave lasix as therapeutic trial but minimal response -- suspect BNP is chronic diastolic CHF and CKD raising lab value. 2. Chronic respiratory failure with severe underlying COPD, ongoing supportive care as above. 3. Chronic diastolic congestive heart failure as above. 4. Hypertension. Continue her home meds and follow. 5. Chronic kidney disease approximately stage III. She is around her baseline. She seems to worsen abruptly with diuretics. Will need to follow closely. 6. Deep venous thrombosis prophylaxis. Heparin subQ. 7. Chronic pain. Continue her home pain meds. 8. Osteoporosis. Continue her home meds.
[2016-08-30] MEDS: LATANOPROST 0.005% OP SOLN 2.5 ML BTL OPR SCH (19:51)
[2016-08-30] MEDS: ZOLPIDEM TARTRATE 10 MG TAB PO SCH (19:54)
[2016-08-31] VITALS (12 sets, daily range): BP systolic 143–158; BP diastolic 84–90; PULSE 76–90; TEMP 36.3–37.1; O2SAT 89–93
[2016-08-31] MEDS: CHECK CLONIDINE PATCH PLACEMENT SCH ×8 (00:46→23:12)
[2016-08-31] MEDS: ALBUT/IPRATROP 3MG/0.5MG NEB 3 ML VIAL INH SCH ×6 (01:24→23:16)
[2016-08-31] MEDS: SUCRALFATE 1 GM/10 ML UDC PO SCH ×4 (06:12→20:39)
[2016-08-31 07:53] LABS: BLOOD UREA NITROGEN 42 mg/dl (7-18); BUN/CREATININE RATIO 23.2 (10-20); CALCIUM 9.3 mg/dl (8.5-10.1); CARBON DIOXIDE 32 mmol/L (21-32); CHLORIDE 98 mmol/L (98-107); GLUCOSE 102 mg/dl (70-99); SODIUM 139 mmol/L (136-145)
--- NOTE | 2016-08-31 08:21 | Clinical Documentation Query ---
CLINICAL DOCUMENTATION QUERY 70 year old female with recent pneumonia and chronic respiratory failure presents to ED with increased SOB. Her pulse Ox was 89% on 15L NRM and with an ABG showing both hypoxia and minor hypercarbia (7.46/48/54/34 on 15L). In your clinical opinion is this patient being managed for: ( x ) Acute and chronic respiratory failure POA in setting of mucous plugging and bronchiectasis treated with O2 via NRM, nebs, and IV solumedrol see my notes ( ) Other explanation of clinical findings (Please Explain) ( ) Unable to determine (Please Define) ( ) Need to Discuss ( ) Not Agree The medical record reflects the following clinical findings, treatment, and risk factors. Clinical Indicators: As above. P/F ratio of 54 on 100% 15L NRM. Treatment: O2 via NRM, IV Lasix, Duonebs, IV Solumedrol, repeat ABG, Pulmonary consult Risk Factors: Age, Chronic respiratory failure, and mucous plugging. Please clarify and document your clinical opinion in the progress notes and discharge summary. Terms such as "probable", "suspected", "likely", "questionable", "possible", or "still to be ruled out" are acceptable. IF IN AGREEMENT, YOU MUST DOCUMENT ABOVE DIAGNOSTIC STATEMENT IN DAILY PROGRESS NOTES AND DISCHARGE SUMMARY. This document is not part of the patient's record. Thank You, Humberto Stark RN [phone]
[2016-08-31] MEDS: METHYLPREDNISOLONE IV 60 MG in SYRINGE 0 ML IV SCH ×3 (08:45→20:38)
[2016-08-31] MEDS: TIOTROPIUM BROMIDE 5 PUFF/90 MCG INH INH SCH (08:45)
[2016-08-31] MEDS: FLUTICASONE PROPIONATE NA SPR 16 GM BTL NAE SCH ×2 (08:47→20:37)
[2016-08-31] MEDS: ALLOPURINOL 100 MG TAB PO SCH ×2 (08:47→20:41)
[2016-08-31] MEDS: LIDODERM (LIDOCAINE) PATCH 5% TD SCH (08:48)
[2016-08-31] MEDS: MULTIVITAMIN TAB PO SCH (08:49)
[2016-08-31] MEDS: GUAIFENESIN 600 MG TABCR PO SCH ×2 (08:49→20:42)
[2016-08-31] MEDS: AMLODIPINE BESYLATE 5 MG TAB PO SCH (08:49)
[2016-08-31] MEDS: CARVEDILOL 25 MG TAB PO SCH ×2 (08:50→20:40)
[2016-08-31] MEDS: FERROUS SULFATE 325 MG TAB PO SCH (08:50)
[2016-08-31] MEDS: BACLOFEN 10 MG TAB PO SCH ×3 (08:50→20:41)
[2016-08-31] MEDS: PANTOprazole SOD 40 MG TAB PO SCH ×2 (08:51→20:41)
[2016-08-31] MEDS: CHOLECALCIFEROL 1000 INTER.UNIT TAB PO SCH (08:52)
[2016-08-31] MEDS: HYDROmorphone HCL 2 MG TAB PO SCH ×2 (08:59→20:38)
[2016-08-31] MEDS: POLYETHYLENE (MIRALAX) 17 GM PACK PO SCH ×2 (09:01→20:00)
[2016-08-31] MEDS: LORAZEPAM 1 MG TAB PO PRN ×2 (11:10→20:38)
[2016-08-31] MEDS: HEPARIN SOD 5000 UNIT/0.5 ML CARP SQ SCH ×2 (11:15→21:31)
--- NOTE | 2016-08-31 11:55 | Pulmonology Progress Note ---
Pulmonary Progress Note Date of Service Aug 31, 2016. Attending Dr. Reich Subjective Continues to report cough that is now non-productive. Denies any pain or dyspnea. Appetite is diminished. No abdominal pain. Objective 70-year-old female admitted to [facility] 08/29/16 with hypoxia and productive cough. Patient admitted through the ED from [facility] with 1 week h/o cough productive of thick green sputum and hypoxia. CXR: progressive interstitial changes with patchy bibasilar densities and trace pleural effusions. She requiring 8-15 LPM from her baseline 3LPM. She was treated with IV steroid, bronchodilators, and pip-tazo along with diuresis. ABG consistent with CO2 retention. PMHx notable for 3LPM O2 - dependent COPD/Emphysema (10/2015: FEV1: 0.8/43%), diastolic dysfunction, chronic LLE DVT, CKD III with renal artery stenosis. She is a former smoker. Her pulmonary history is notable for frequent recurrent pneumonia with hospitalization 07/2015, 09/2015, 10/2015 (new O2 requirement), 03/2016, and 2016. Bronchoscopy 09/2015 + notable for bibasilar mucoid impaction as well as rare Coby. Sputum cultures from 04/2016 and 07/2016: + MRSA. Today Physical Exam: Constitutional: Chronically ill appearing elderly female lying in hospital bed watching television. No acute distress. Head: + facial symmetry - nasal cannula Eyes: EOMi, PERRLA, no conjunctival injection with edema on the left Neck: Trachea midline. No adenopathy or masses Respiratory: Intermittently labored respirations. Diffuse bilateral rhonchi. Cardiovascular: RRR, no MRG. +2 radial pulses. <1s capillary refill. Abdomen: soft, active bowel sounds Integumentary: no rashes, or ecchymosis MSK/Extremities: Moving and developed symmetrically. Trace LLE edema. None on right. No calf tenderness. Neurologic: Improved mental status today - cooperative and participating with exam. Case reviewed, patient reviewed and plan agreed with. Assessment & Plan 67-yo female admitted with hypercarbic hypoxic respiratory failure in the setting of COPD, prior MRSA + respiratory cultures and diastolic heart failure. 1. Continue steroid, pip-tazo and bronchodilators 2. Daily weights 3. O2 needs improving and will continue to consider in-patient bronchoscopy with h/o recurrent respiratory infection as she stabilizes clinically and approaches her home needs: 3LPM. Data Medications: Current Inpatient Medications Medications (Trade) Dose Ordered Sig/Estephania Route Start Time Stop Time Status Last Admin Dose Admin Acetaminophen (Tylenol Tab) 650 mg Q4H PRN PO 08/29/16 07:45 09/28/16 07:44 08/30/16 14:05 650 MG Al Hydrox/Mg Hydrox/Simethicone (Maalox Max Susp) 15 ml Q4H PRN PO 08/29/16 07:45 09/28/16 07:44 Magnesium Hydroxide (Milk Of Magnesia Susp) 30 ml Q6H PRN PO 08/29/16 07:45 09/28/16 07:44 Ondansetron HCl (Zofran Inj) 4 mg Q6H PRN IV 08/29/16 07:45 09/28/16 07:44 Heparin Sodium (Porcine) (Heparin Sq 5000 Unit/0.5ml) 5,000 unit Q12H SQ 08/29/16 10:00 09/28/16 07:44 08/31/16 11:15 5,000 UNIT Allopurinol (Zyloprim Tab) 100 mg BID PO 08/29/16 08:55 09/28/16 08:59 08/31/16 08:47 100 MG Amlodipine Besylate (Norvasc Tab) 10 mg DAILY PO 08/29/16 08:55 09/28/16 08:59 08/31/16 08:49 10 MG Baclofen (Lioresal Tab) 10 mg TID PO 08/29/16 08:55 09/28/16 08:59 08/31/16 08:50 10 MG Bisacodyl (Dulcolax Supp) 10 mg DAILY PRN [place] 08/29/16 07:45 09/28/16 07:44 Carvedilol (Coreg Tab) 25 mg BID PO 08/29/16 08:55 09/28/16 08:59 08/31/16 08:50 25 MG Cholecalciferol (Vitamin D Tab) 4,000 inter.unit QAM PO 08/29/16 10:00 09/28/16 09:59 08/31/16 08:52 4,000 INTER.UNIT Clonidine HCl (Rldtvwbx-Sbh-0 0.2mg/24hr Patch) 2 patch Cheney@0900 TD 4/9/17 09:00 10/04/16 08:59 Epinephrine (Epipen) 0.3 mg UD PRN IM 08/29/16 07:45 09/28/16 07:44 Ergocalciferol (Vitamin D Cap) 50,000 interunit Fr@0900 PO 09/02/16 09:00 10/02/16 08:59 Fluticasone Propionate (Flonase Nasal [place]) 1 sprays BID ERIC 08/29/16 08:55 09/28/16 08:59 08/31/16 08:47 1 SPRAYS Guaifenesin (Mucinex Contr Rel Tab) 600 mg BID PO 08/29/16 08:55 09/28/16 08:59 08/31/16 08:49 600 MG Hydralazine HCl (Apresoline Tab) 75 mg TID PO 08/29/16 08:55 09/28/16 08:59 08/31/16 08:51 75 MG Hydromorphone HCl (Dilaudid Tab) 6 mg BID PO 08/29/16 08:55 09/12/16 08:59 08/31/16 08:59 6 MG Albuterol/ Ipratropium (Duoneb) 3 ml Q4H PRN INH 08/29/16 07:45 09/28/16 07:44 08/29/16 15:23 3 ML Latanoprost (Xalatan Oph Soln) 1 drops HS OPR 08/29/16 21:00 09/28/16 20:59 08/30/16 19:51 1 DROPS Lidocaine (Lidoderm Patch 5%) 1 patch QAM TD 08/29/16 08:55 09/28/16 08:59 08/31/16 08:48 1 PATCH Lorazepam (Ativan Tab) 0.5 mg TID PRN PO 08/29/16 07:45 09/28/16 07:44 Lorazepam (Ativan Tab) 1 mg Q6H PRN PO 08/29/16 07:45 09/28/16 07:44 08/31/16 11:10 1 MG Magnesium Hydroxide (Milk Of Magnesia Susp) 30 ml DAILY PRN PO 08/29/16 07:45 09/28/16 07:44 Methadone HCl (Dolophine Tab) 10 mg TID PRN PO 08/29/16 07:45 09/12/16 07:44 Multivitamins (Multivitamin Tab) 1 tab DAILY PO 08/29/16 08:55 09/28/16 08:59 08/31/16 08:49 1 TAB Pantoprazole Sodium (Protonix Tab) 40 mg BID PO 08/29/16 08:55 09/28/16 08:59 08/31/16 08:51 40 MG Prednisone (PredniSONE TAB) 5 mg DAILY PO 08/29/16 08:55 09/28/16 08:59 08/31/16 08:48 5 MG Sodium Biphosphate/ Sodium Phosphate (Fleet Enema) 132 ml DAILY PRN NJ 08/29/16 07:45 09/28/16 07:44 Sucralfate (Carafate Susp) 1 gm ACHS PO 08/29/16 11:00 09/28/16 10:59 08/31/16 11:11 1 GM Tiotropium [place] (Spiriva Handihaler Inhaler) 1 puff DAILY INH 08/29/16 08:55 09/28/16 08:59 08/31/16 08:45 1 PUFF Zolpidem Tartrate (Ambien Tab) 10 mg HS PO 08/29/16 21:00 09/28/16 20:59 08/30/16 19:54 10 MG Ferrous Sulfate (Feosol Tab) 325 mg DAILY PO 08/29/16 08:55 09/28/16 08:59 08/31/16 08:50 325 MG Polyethylene (Miralax Powder Packet) 17 gm BID PO 08/29/16 08:55 09/28/16 08:59 Miscellaneous (Remove Lidoderm Patch) 1 ea DAILY@2000 N/A 08/29/16 20:00 09/28/16 19:59 08/30/16 19:52 1 EA Miscellaneous (Iv Fluids Completed) 1 ea PRN PRN N/A 08/29/16 08:15 08/29/17 08:14 Miscellaneous (Remove Clonidine Patch) 1 ea Q7D@0859 N/A 09/04/16 08:59 10/04/16 08:58 Miscellaneous Information (Check Clonidine Patch Placement) 1 ea QS N/A 08/29/16 16:00 09/28/16 15:59 08/31/16 08:00 1 EA Miscellaneous (Remove Clonidine Patch) 1 ea Q7D@0859 N/A 09/04/16 08:59 10/04/16 08:58 Miscellaneous Information (Check Clonidine Patch Placement) 1 ea QS N/A 08/29/16 16:00 09/28/16 15:59 08/31/16 08:46 1 EA Albuterol/ Ipratropium 3 ml 3 ml Q4R INH 08/29/16 20:00 09/28/16 19:59 08/31/16 11:40 3 ML Methylprednisolone Sodium Succinate/ Syringe (Solu-Medrol IV/ Syringe) 0.96 ml @ 1.5 mls/min TID IV 08/29/16 20:00 09/28/16 19:59 08/31/16 08:45 1.5 MLS/MIN Vital Signs: Date Time Temp Pulse Resp B/P Pulse Ox O2 Delivery O2 Flow Rate FiO2 08/31/16 11:40 78 20 91 Nasal Cannula 6.0 08/31/16 08:15 Nasal Cannula 6.0 08/31/16 07:54 36.7 80 22 158/85 89 6.0 08/31/16 07:23 89 20 90 Nasal Cannula 6.0 08/31/16 02:30 89 Nasal Cannula 6.0 08/31/16 00:21 36.3 76 20 145/87 92 Mask 10.0 08/31/16 00:01 Mask 10.0 08/30/16 20:00 92 Mask 10.0 08/30/16 19:56 82 22 92 Diffusion Mask 9.0 08/30/16 19:47 78 158/78 08/30/16 16:49 36.6 76 18 136/73 90 Venturi Mask 15.0 08/30/16 16:00 90 Venturi Mask 15.0 50 08/30/16 15:56 89 22 89 Venturi Mask 15.0 50 08/30/16 11:45 80 22 92 Venturi Mask 15.0 50 Laboratory Results: Last 24 Hours Test 08/30/16 12:14 08/31/16 05:50 Arterial Blood pH 7.46 Arterial Blood Partial Pressure CO2 48 mmHg Arterial Blood Partial Pressure O2 57 mm/Hg Arterial Blood HCO3 34 mmol/L Arterial Blood Oxygen Saturation 89.5 % Arterial Blood Base Excess 8.7 mEq/L Arterial Blood Gas Delivery 15L Leroy Test POS Sodium Level 139 mmol/L Potassium Level mmol/L Chloride Level 98 mmol/L Carbon Dioxide Level 32 mmol/L Anion Gap 9.0 mmol/L Blood Urea Nitrogen 42 mg/dl Creatinine 1.80 mg/dl Est Creatinine Clear Calc Drug Dose 24.5 ml/min Estimated GFR () 32.9 Estimated GFR (Non- 28.4 BUN/Creatinine Ratio 23.2 Random Glucose 102 mg/dl Calcium Level 9.3 mg/dl
[2016-08-31] MEDS: ONDANSETRON INJ 2 MG/ML 2 ML VIAL IV PRN (14:51)
--- NOTE | 2016-08-31 16:14 | Progress Note ---
Subjective Date of Service: Aug 31, 2016. Subjective Pt evaluation today including: conversation w/ patient, physical exam, chart review, lab review, conversation w/ mobile sales consultant, review of inpatient medication list starting to slowly feel better ongoing green mucous sob improved more awake talkative no fevers Problem List Medical Problems: (1) Bilateral pneumonia Status: Acute (2) CHF (congestive heart failure) Status: Acute (3) Chronic Kidney Disease, Stage Iii (Moderate) Status: Chronic (4) COPD exacerbation Status: Acute (5) COPD exacerbation Status: Acute (6) Crystal arthritis Status: Chronic (7) Duodenal bulb ulcer Status: Chronic (8) Failure of outpatient treatment Status: Acute (9) Failure of outpatient treatment Status: Acute (10) Gout Status: Chronic (11) Hyperlipidemia Nec/Nos Status: Chronic (12) Hypertension Status: Chronic (13) Hypoxemia Status: Acute (14) Hypoxia Status: Acute (15) Hypoxia Status: Acute (16) Hypoxia Status: Acute (17) Hypoxia Status: Acute (18) Lumbar compression fracture Status: Chronic (19) Opiate use Status: Chronic (20) Osteoporosis Status: Chronic (21) Peripheral edema Status: Acute (22) Pneumonia Status: Acute (23) Pneumonia Status: Acute (24) Pneumonia involving right lung Status: Acute (25) Respiratory acidosis Status: Acute (26) Respiratory distress Status: Acute (27) Right renal artery stenosis Status: Chronic (28) Secondary hyperparathyroidism Status: Chronic (29) UTI (urinary tract infection) Status: Acute Review of Systems Respiratory: + shortness of breath (improving), + sputum ros otherwise negative except for as above Objective Vital Signs Date Time Temp Pulse Resp B/P Pulse Ox O2 Delivery O2 Flow Rate FiO2 08/31/16 15:40 93 Nasal Cannula 6.0 08/31/16 15:38 83 20 93 Nasal Cannula 6.0 08/31/16 15:04 36.8 83 16 154/84 90 Nasal Cannula 6.0 08/31/16 14:43 90 24 157/90 90 Nasal Cannula 6.0 08/31/16 11:40 78 20 91 Nasal Cannula 6.0 08/31/16 08:45 89 Nasal Cannula 6.0 08/31/16 08:15 Nasal Cannula 6.0 08/31/16 07:54 36.7 80 22 158/85 89 6.0 08/31/16 07:23 89 20 90 Nasal Cannula 6.0 08/31/16 02:30 89 Nasal Cannula 6.0 08/31/16 00:21 36.3 76 20 145/87 92 Mask 10.0 08/31/16 00:01 Mask 10.0 08/30/16 20:00 92 Mask 10.0 08/30/16 19:56 82 22 92 Diffusion Mask 9.0 08/30/16 19:47 78 158/78 08/30/16 16:49 36.6 76 18 136/73 90 Venturi Mask 15.0 Physical Exam General Appearance: no apparent distress Eyes: EOMI ENT: hearing grossly normal Neck: trachea midline Respiratory/Chest: no respiratory distress, no accessory muscle use Neurologic/Psychiatric: legend maker II-XII nml as tested, alert, normal mood/affect Skin: normal color, warm/dry Laboratory Results Last 24 Hours Test 08/31/16 05:50 Sodium Level 139 mmol/L Potassium Level mmol/L Chloride Level 98 mmol/L Carbon Dioxide Level 32 mmol/L Anion Gap 9.0 mmol/L Blood Urea Nitrogen 42 mg/dl Creatinine 1.80 mg/dl Est Creatinine Clear Calc Drug Dose 24.5 ml/min Estimated GFR () 32.9 Estimated GFR (Non- 28.4 BUN/Creatinine Ratio 23.2 Random Glucose 102 mg/dl Calcium Level 9.3 mg/dl Assessment and Plan 1. Hypoxia. -mucous plugging related to prior pneumonia and bronchiectasis most likely -ABG basically just showed hypoxia -ongoing aggressive pulmonary toilet w nebs/steroids - once more stable to be able to withstand procedure, anticipate therapeutic bronch (between severe COPD , steroid myopathy, and deconditioning, her ability to move much air is severely compromised - unlikely to clear on its own) -no clear need for abx at this time (to clarify - has not been on abx since dose given in ER due to no fever, no further wbc elevation, procalcitonin very reassuring) -w BNP gave lasix as therapeutic trial but minimal response -- suspect BNP is chronic diastolic CHF and CKD raising lab value. 2. Chronic respiratory failure with severe underlying COPD, ongoing supportive care as above. improving 3. Chronic diastolic congestive heart failure as above. appearing stable, showed no improvement with lasix. nothing appearing decompensated today 4. Hypertension. Continue her home meds and follow. 5. Chronic kidney disease approximately stage III. She is around her baseline. She seems to worsen abruptly with diuretics. Will need to follow closely, but fortunately stable in spite of yesterday's dose of lasix 6. Deep venous thrombosis prophylaxis. Heparin subQ. 7. Chronic pain. Continue her home pain meds. 8. Osteoporosis. Continue her home meds.
[2016-08-31] MEDS: LATANOPROST 0.005% OP SOLN 2.5 ML BTL OPR SCH (20:37)
[2016-08-31] MEDS: ZOLPIDEM TARTRATE 10 MG TAB PO SCH (23:11)
[2016-09-01] VITALS (7 sets, daily range): BP systolic 134–173; BP diastolic 72–94; PULSE 73–79; TEMP 36.4–37; O2SAT 87–95
[2016-09-01] MEDS: ALBUT/IPRATROP 3MG/0.5MG NEB 3 ML VIAL INH SCH ×6 (03:10→23:23)
[2016-09-01] MEDS: ACETAMINOPHEN 325 MG TAB PO PRN (04:10)
[2016-09-01] MEDS: SUCRALFATE 1 GM/10 ML UDC PO SCH ×4 (06:04→21:38)
[2016-09-01 06:48] LABS: HEMATOCRIT 32.2 % (37-47); MEAN CELL VOLUME 89.4 fL (80-100); MEAN CORPUSCULAR HEMOGLOBIN 28.6 pg (25-34); MEAN PLATELET VOLUME 11.3 fL (7.4-10.4); PLATELET COUNT 225 K/uL (130-400); WHITE BLOOD COUNT 8.89 K/uL (4.8-10.8)
[2016-09-01] MEDS: METHYLPREDNISOLONE IV 60 MG in SYRINGE 0 ML IV SCH ×2 (08:24→14:15)
[2016-09-01] MEDS: FLUTICASONE PROPIONATE NA SPR 16 GM BTL NAE SCH ×2 (08:24→21:37)
[2016-09-01] MEDS: HYDROmorphone HCL 2 MG TAB PO SCH ×2 (08:24→21:38)
[2016-09-01] MEDS: BACLOFEN 10 MG TAB PO SCH ×3 (08:25→21:37)
[2016-09-01] MEDS: CHOLECALCIFEROL 1000 INTER.UNIT TAB PO SCH (08:25)
[2016-09-01] MEDS: FERROUS SULFATE 325 MG TAB PO SCH (08:25)
[2016-09-01] MEDS: GUAIFENESIN 600 MG TABCR PO SCH ×2 (08:25→21:37)
[2016-09-01] MEDS: CARVEDILOL 25 MG TAB PO SCH ×2 (08:26→21:38)
[2016-09-01] MEDS: MULTIVITAMIN TAB PO SCH (08:26)
[2016-09-01] MEDS: PANTOprazole SOD 40 MG TAB PO SCH ×2 (08:26→21:37)
[2016-09-01] MEDS: AMLODIPINE BESYLATE 5 MG TAB PO SCH (08:26)
[2016-09-01] MEDS: ALLOPURINOL 100 MG TAB PO SCH ×2 (08:26→21:37)
[2016-09-01] MEDS: CHECK CLONIDINE PATCH PLACEMENT SCH ×6 (08:27→23:59)
[2016-09-01] MEDS: POLYETHYLENE (MIRALAX) 17 GM PACK PO SCH ×2 (08:27→20:00)
[2016-09-01] MEDS: TIOTROPIUM BROMIDE 5 PUFF/90 MCG INH INH SCH (08:27)
[2016-09-01] MEDS: LIDODERM (LIDOCAINE) PATCH 5% TD SCH (08:28)
[2016-09-01] MEDS: LORAZEPAM 1 MG TAB PO PRN ×2 (08:49→21:46)
[2016-09-01] MEDS: HEPARIN SOD 5000 UNIT/0.5 ML CARP SQ SCH ×2 (11:16→21:44)
--- NOTE | 2016-09-01 15:24 | Pulmonology Progress Note ---
Pulmonary Progress Note Date of Service Sep 01, 2016. Attending Dr. Reich Subjective Patient notes a great deal of improvement in her breathing over the last 48 hours. Objective Patient is sitting comfortable in bed not using accessory muscles and able to speak full sentences with no signs of respiratory insufficiency: VS: Reviewed and stable on 6L nc RESP: crackles with decreased bs (b) Thoracic US: (b) B-lines globably Cardiac: S1S2 with RRR but unable to auscultate for M/R/G 70-year-old female admitted to [facility] 08/29/16 with hypoxia and productive cough. PMHx includes: Urinary tract infection (proteus penneri on culture), chronic Left DVT, COPD/emphysema, oxygen dependency, bilateral pneumonia, cholecystitis , CKD 3, multiple compression fracture of the spine, duodenal gastric ulcer with perforation, Hodgkin lymphoma, hyperlipidemia, hypertension, left renal artery stenosis, right renal artery stenosis, hypoparathyroidism. Former tobacco use: 5 pack-year (quit 37 years ago) recurrent pneumonia with hospitalization 07/2015, 09/2015, 10/2015 (new O2 requirement), 03/2016, and 2016. Bronchoscopy 09/2015 + notable for bibasilar mucoid impaction as well as rare Coby. Sputum cultures from 04/2016 and 07/2016: + MRSA. LABS: ABG: (08/30/16) 7.46/48/57/34 FiO2: 15L Bun/Cr: 42/1.80 Pro-BNP: (08/29/16: 0931) 5532 (08/30/16: 5:50) 54300 Cardiac Echo (08/13/15) 1. Normal left ventricular size with moderate LVH. 2. LVEF > 75%, hyperdynamic LV. 3. Off-axis views. No significant valvular stenosis or regurgitation appreciated. 4. Diastolic dysfunction. 5. Normal PASP based on tricuspid regurgitant jet velocity. 6. Moderately dilated left atria. Assessment & Plan 67-yo female admitted with acute on chronic respiratory insufficiency: ABG: (08/30/16) 7.46/48/57/34 FiO2: 15L 1) Dyspnea: Most likely multi-factorial with COPD, kyphosis and diastolic heart failure combined. The bed sided thoracic US shows diffuse B-Lines suggesting volume overload. I suggest we monitor our patient's I/O and keep her intake to <1.5L per day. It will be difficult to diuresis aggressively with her underlying kidney dysfunction. I suggest we should also drop her steroids down at this time to 30IV BID and monitor her. 2) ID: I agree with the primary teams d/c of the patient's anti-biotics as it appears CHF/COPD are the underlying acute issues. 3) Bronchoscopy: Will consider when the patient is stable but can also be performed as an outpatient. Data Medications: Current Inpatient Medications Medications (Trade) Dose Ordered Sig/Estephania Route Start Time Stop Time Status Last Admin Dose Admin Acetaminophen (Tylenol Tab) 650 mg Q4H PRN PO 08/29/16 07:45 09/28/16 07:44 09/01/16 04:10 650 MG Al Hydrox/Mg Hydrox/Simethicone (Maalox Max Susp) 15 ml Q4H PRN PO 08/29/16 07:45 09/28/16 07:44 Magnesium Hydroxide (Milk Of Magnesia Susp) 30 ml Q6H PRN PO 08/29/16 07:45 09/28/16 07:44 Ondansetron HCl (Zofran Inj) 4 mg Q6H PRN IV 08/29/16 07:45 09/28/16 07:44 08/31/16 14:51 4 MG Heparin Sodium (Porcine) (Heparin Sq 5000 Unit/0.5ml) 5,000 unit Q12H SQ 08/29/16 10:00 09/28/16 07:44 09/01/16 11:16 5,000 UNIT Allopurinol (Zyloprim Tab) 100 mg BID PO 08/29/16 08:55 09/28/16 08:59 09/01/16 08:26 100 MG Amlodipine Besylate (Norvasc Tab) 10 mg DAILY PO 08/29/16 08:55 09/28/16 08:59 09/01/16 08:26 10 MG Baclofen (Lioresal Tab) 10 mg TID PO 08/29/16 08:55 09/28/16 08:59 09/01/16 14:16 10 MG Bisacodyl (Dulcolax Supp) 10 mg DAILY PRN OR 08/29/16 07:45 09/28/16 07:44 Carvedilol (Coreg Tab) 25 mg BID PO 08/29/16 08:55 09/28/16 08:59 09/01/16 08:26 25 MG Cholecalciferol (Vitamin D Tab) 4,000 inter.unit QAM PO 08/29/16 10:00 09/28/16 09:59 09/01/16 08:25 4,000 INTER.UNIT Clonidine HCl (Uzlfopun-Jrl-5 0.2mg/24hr Patch) 2 patch Cheney@0900 TD 09/04/16 09:00 10/04/16 08:59 Epinephrine (Epipen) 0.3 mg UD PRN IM 08/29/16 07:45 09/28/16 07:44 Ergocalciferol (Vitamin D Cap) 50,000 interunit Fr@0900 PO 09/02/16 09:00 10/02/16 08:59 Fluticasone Propionate (Flonase Nasal [place]) 1 sprays BID REIC 08/29/16 08:55 09/28/16 08:59 09/01/16 08:24 1 SPRAYS Guaifenesin (Mucinex Contr Rel Tab) 600 mg BID PO 08/29/16 08:55 09/28/16 08:59 09/01/16 08:25 600 MG Hydralazine HCl (Apresoline Tab) 75 mg TID PO 08/29/16 08:55 09/28/16 08:59 09/01/16 14:16 75 MG Hydromorphone HCl (Dilaudid Tab) 6 mg BID PO 08/29/16 08:55 09/12/16 08:59 09/01/16 08:24 6 MG Albuterol/ Ipratropium (Duoneb) 3 ml Q4H PRN INH 08/29/16 07:45 09/28/16 07:44 08/29/16 15:23 3 ML Latanoprost (Xalatan Oph Soln) 1 drops HS OPR 08/29/16 21:00 09/28/16 20:59 08/31/16 20:37 1 DROPS Lidocaine (Lidoderm Patch 5%) 1 patch QAM TD 08/29/16 08:55 09/28/16 08:59 09/01/16 08:28 1 PATCH Lorazepam (Ativan Tab) 0.5 mg TID PRN PO 08/29/16 07:45 09/28/16 07:44 Lorazepam (Ativan Tab) 1 mg Q6H PRN PO 08/29/16 07:45 09/28/16 07:44 09/01/16 08:49 1 MG Magnesium Hydroxide (Milk Of Magnesia Susp) 30 ml DAILY PRN PO 08/29/16 07:45 09/28/16 07:44 Methadone HCl (Dolophine Tab) 10 mg TID PRN PO 08/29/16 07:45 09/12/16 07:44 Multivitamins (Multivitamin Tab) 1 tab DAILY PO 08/29/16 08:55 09/28/16 08:59 09/01/16 08:26 1 TAB Pantoprazole Sodium (Protonix Tab) 40 mg BID PO 08/29/16 08:55 09/28/16 08:59 09/01/16 08:26 40 MG Prednisone (PredniSONE TAB) 5 mg DAILY PO 08/29/16 08:55 09/28/16 08:59 09/01/16 08:25 5 MG Sodium Biphosphate/ Sodium Phosphate (Fleet Enema) 132 ml DAILY PRN OR 08/29/16 07:45 09/28/16 07:44 Sucralfate (Carafate Susp) 1 gm ACHS PO 08/29/16 11:00 09/28/16 10:59 09/01/16 11:17 1 GM Tiotropium [place] (Spiriva Handihaler Inhaler) 1 puff DAILY INH 08/29/16 08:55 09/28/16 08:59 09/01/16 08:27 1 PUFF Zolpidem Tartrate (Ambien Tab) 10 mg HS PO 08/29/16 21:00 09/28/16 20:59 08/31/16 23:11 10 MG Ferrous Sulfate (Feosol Tab) 325 mg DAILY PO 08/29/16 08:55 09/28/16 08:59 09/01/16 08:25 325 MG Polyethylene (Miralax Powder Packet) 17 gm BID PO 08/29/16 08:55 09/28/16 08:59 09/01/16 08:27 17 GM Miscellaneous (Remove Lidoderm Patch) 1 ea DAILY@1999 N/A 08/29/16 20:00 5/3/17 19:59 08/31/16 20:39 1 EA Miscellaneous (Iv Fluids Completed) 1 ea PRN PRN N/A 08/29/16 08:15 08/29/17 08:14 Miscellaneous (Remove Clonidine Patch) 1 ea Q7D@0859 N/A 09/04/16 08:59 10/04/16 08:58 Miscellaneous Information (Check Clonidine Patch Placement) 1 ea QS N/A 08/29/16 16:00 09/28/16 15:59 09/01/16 08:27 1 EA Miscellaneous (Remove Clonidine Patch) 1 ea Q7D@0859 N/A 09/04/16 08:59 10/04/16 08:58 Miscellaneous Information (Check Clonidine Patch Placement) 1 ea QS N/A 08/29/16 16:00 09/28/16 15:59 09/01/16 08:27 1 EA Albuterol/ Ipratropium 3 ml 3 ml Q4R INH 08/29/16 20:00 09/28/16 19:59 08/31/16 15:37 3 ML Methylprednisolone Sodium Succinate/ Syringe (Solu-Medrol IV/ Syringe) 0.96 ml @ 1.5 mls/min TID IV 08/29/16 20:00 09/28/16 19:59 09/01/16 14:15 1.5 MLS/MIN Vital Signs: Date Time Temp Pulse Resp B/P Pulse Ox O2 Delivery O2 Flow Rate FiO2 09/01/16 11:19 36.8 77 18 147/81 94 6.0 09/01/16 08:30 89 Nasal Cannula 6.0 09/01/16 08:30 93 6.0 09/01/16 07:16 36.4 78 18 144/72 87 6.0 09/01/16 04:11 36.4 73 20 173/94 95 Nasal Cannula 6.0 09/01/16 00:05 37.0 77 20 152/93 89 Nasal Cannula 6.0 09/01/16 00:01 Nasal Cannula 6.0 08/31/16 20:39 80 152/85 08/31/16 19:37 37.1 81 16 143/86 93 Nasal Cannula 6.0 08/31/16 19:30 Nasal Cannula 6.0 08/31/16 15:40 93 Nasal Cannula 6.0 08/31/16 15:38 83 20 93 Nasal Cannula 6.0 Laboratory Results: Last 24 Hours Test 09/01/16 05:38 White Blood Count 8.89 K/uL Red Blood Count 3.60 M/uL Hemoglobin 10.3 g/dL Hematocrit 32.2 % Mean Corpuscular Volume 89.4 fL Mean Corpuscular Hemoglobin 28.6 pg Mean Corpuscular Hemoglobin Concent 32.0 g/dl RDW Standard Deviation 56.2 fL RDW Coefficient of Variation 17.1 % Platelet Count 225 K/uL Mean Platelet Volume 11.3 fL
--- NOTE | 2016-09-01 19:24 | Progress Note ---
Subjective Date of Service: Sep 01, 2016. Subjective Pt evaluation today including: conversation w/ patient, physical exam, chart review, lab review feeling about the same, not much sputum production no f/c/s no other new complaints ros otherwise negative except for as above Problem List Medical Problems: (1) Bilateral pneumonia Status: Acute (2) CHF (congestive heart failure) Status: Acute (3) Chronic Kidney Disease, Stage Iii (Moderate) Status: Chronic (4) COPD exacerbation Status: Acute (5) COPD exacerbation Status: Acute (6) Crystal arthritis Status: Chronic (7) Duodenal bulb ulcer Status: Chronic (8) Failure of outpatient treatment Status: Acute (9) Failure of outpatient treatment Status: Acute (10) Gout Status: Chronic (11) Hyperlipidemia Nec/Nos Status: Chronic (12) Hypertension Status: Chronic (13) Hypoxemia Status: Acute (14) Hypoxia Status: Acute (15) Hypoxia Status: Acute (16) Hypoxia Status: Acute (17) Hypoxia Status: Acute (18) Lumbar compression fracture Status: Chronic (19) Opiate use Status: Chronic (20) Osteoporosis Status: Chronic (21) Peripheral edema Status: Acute (22) Pneumonia Status: Acute (23) Pneumonia Status: Acute (24) Pneumonia involving right lung Status: Acute (25) Respiratory acidosis Status: Acute (26) Respiratory distress Status: Acute (27) Right renal artery stenosis Status: Chronic (28) Secondary hyperparathyroidism Status: Chronic (29) UTI (urinary tract infection) Status: Acute Review of Systems ros otherwise negative except for as above Objective Vital Signs Date Time Temp Pulse Resp B/P Pulse Ox O2 Delivery O2 Flow Rate FiO2 09/01/16 15:55 36.9 79 18 134/79 92 Nasal Cannula 6.0 09/01/16 11:19 36.8 77 18 147/81 94 6.0 09/01/16 08:30 89 Nasal Cannula 6.0 09/01/16 08:30 93 6.0 09/01/16 07:16 36.4 78 18 144/72 87 6.0 09/01/16 04:11 36.4 73 20 173/94 95 Nasal Cannula 6.0 09/01/16 00:05 37.0 77 20 152/93 89 Nasal Cannula 6.0 09/01/16 00:01 Nasal Cannula 6.0 08/31/16 20:39 80 152/85 08/31/16 19:37 37.1 81 16 143/86 93 Nasal Cannula 6.0 08/31/16 19:30 Nasal Cannula 6.0 Physical Exam General Appearance: no apparent distress (fatigued appearing) Eyes: EOMI ENT: hearing grossly normal Neck: trachea midline Respiratory/Chest: no respiratory distress, no accessory muscle use, + rhonchi (scattered) Neurologic/Psychiatric: 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 Hypoxia. -mucous plugging related to prior pneumonia and bronchiectasis most likely - as noted by pulmonary still maybe some acute diastolic CHF -ABG basically just showed hypoxia -ongoing aggressive pulmonary toilet w nebs/steroids - once more stable to be able to withstand procedure, anticipate therapeutic bronch (between severe COPD , steroid myopathy, and deconditioning, her ability to move much air is severely compromised - unlikely to clear on its own), add vibration vest if she' l tolerate -no clear need for abx at this time (to clarify - has not been on abx since dose given in ER due to no fever, no further wbc elevation, procalcitonin very reassuring) -w BNP gave lasix as therapeutic trial but minimal response -- however pulmonary did see some evidence of edema on bedside US - fluid restrict, maybe retry diuresis (although regularly her renal function worsens w too much diuretic and she is showing improvement so will hold on that for now) 2. Chronic respiratory failure with severe underlying COPD, ongoing supportive care as above. improving 3. Chronic diastolic congestive heart failure as above. fluid restrict for now. 4. Hypertension. Continue her home meds and follow. 5. Chronic kidney disease approximately stage III. She is around her baseline. She seems to worsen abruptly with diuretics. Will need to follow closely, hopefully won't need further lasix for CHF component 6. Deep venous thrombosis prophylaxis. Heparin subQ. 7. Chronic pain. Continue her home pain meds. 8. Osteoporosis. Continue her home meds.
[2016-09-01] MEDS: METHYLPREDNISOLONE IV 30 MG in SYRINGE 0 ML IV SCH (21:36)
[2016-09-01] MEDS: ZOLPIDEM TARTRATE 10 MG TAB PO SCH (21:38)
[2016-09-01] MEDS: LATANOPROST 0.005% OP SOLN 2.5 ML BTL OPR SCH (21:39)
[2016-09-02] VITALS (8 sets, daily range): BP systolic 133–163; BP diastolic 75–90; PULSE 70–84; TEMP 36.8–37.2; O2SAT 92–94
[2016-09-02] MEDS: ALBUT/IPRATROP 3MG/0.5MG NEB 3 ML VIAL INH SCH ×5 (03:57→19:43)
[2016-09-02] MEDS: SUCRALFATE 1 GM/10 ML UDC PO SCH ×4 (05:08→21:13)
[2016-09-02] MEDS: ONDANSETRON INJ 2 MG/ML 2 ML VIAL IV PRN (07:30)
[2016-09-02] MEDS: TIOTROPIUM BROMIDE 5 PUFF/90 MCG INH INH SCH (09:15)
[2016-09-02] MEDS: FLUTICASONE PROPIONATE NA SPR 16 GM BTL NAE SCH ×2 (09:16→21:14)
[2016-09-02] MEDS: METHYLPREDNISOLONE IV 30 MG in SYRINGE 0 ML IV SCH ×2 (09:16→21:18)
[2016-09-02] MEDS: ERGOCALCIFEROL 50,000 INTER.UNIT CAP PO SCH (09:16)
[2016-09-02] MEDS: ALLOPURINOL 100 MG TAB PO SCH ×2 (09:17→21:15)
[2016-09-02] MEDS: BACLOFEN 10 MG TAB PO SCH ×3 (09:17→21:15)
[2016-09-02] MEDS: AMLODIPINE BESYLATE 5 MG TAB PO SCH (09:17)
[2016-09-02] MEDS: CHOLECALCIFEROL 1000 INTER.UNIT TAB PO SCH (09:18)
[2016-09-02] MEDS: PANTOprazole SOD 40 MG TAB PO SCH ×2 (09:19→21:15)
[2016-09-02] MEDS: CARVEDILOL 25 MG TAB PO SCH ×2 (09:19→21:15)
[2016-09-02] MEDS: MULTIVITAMIN TAB PO SCH (09:19)
[2016-09-02] MEDS: GUAIFENESIN 600 MG TABCR PO SCH ×2 (09:19→21:15)
[2016-09-02] MEDS: HYDROmorphone HCL 2 MG TAB PO SCH ×2 (09:20→21:29)
[2016-09-02] MEDS: LORAZEPAM 1 MG TAB PO PRN ×2 (09:20→23:16)
[2016-09-02] MEDS: FERROUS SULFATE 325 MG TAB PO SCH (09:20)
[2016-09-02] MEDS: ACETAMINOPHEN 325 MG TAB PO PRN (09:22)
[2016-09-02] MEDS: POLYETHYLENE (MIRALAX) 17 GM PACK PO SCH ×2 (09:23→21:15)
[2016-09-02] MEDS: LIDODERM (LIDOCAINE) PATCH 5% TD SCH (09:23)
[2016-09-02] MEDS: CHECK CLONIDINE PATCH PLACEMENT SCH ×6 (09:24→23:18)
[2016-09-02] MEDS: HEPARIN SOD 5000 UNIT/0.5 ML CARP SQ SCH ×2 (09:50→21:16)
--- NOTE | 2016-09-02 18:15 | Progress Note ---
Subjective Date of Service: Sep 02, 2016. Subjective Pt evaluation today including: conversation w/ patient, physical exam, chart review, lab review, review of inpatient medication list feeling about the same had vest x1 thought things rattled around some - but didnt' have change in sob and didn't get cough out yet no f/c/s sob but not feeling worse Problem List Medical Problems: (1) Bilateral pneumonia Status: Acute (2) CHF (congestive heart failure) Status: Acute (3) Chronic Kidney Disease, Stage Iii (Moderate) Status: Chronic (4) COPD exacerbation Status: Acute (5) COPD exacerbation Status: Acute (6) Crystal arthritis Status: Chronic (7) Duodenal bulb ulcer Status: Chronic (8) Failure of outpatient treatment Status: Acute (9) Failure of outpatient treatment Status: Acute (10) Gout Status: Chronic (11) Hyperlipidemia Nec/Nos Status: Chronic (12) Hypertension Status: Chronic (13) Hypoxemia Status: Acute (14) Hypoxia Status: Acute (15) Hypoxia Status: Acute (16) Hypoxia Status: Acute (17) Hypoxia Status: Acute (18) Lumbar compression fracture Status: Chronic (19) Opiate use Status: Chronic (20) Osteoporosis Status: Chronic (21) Peripheral edema Status: Acute (22) Pneumonia Status: Acute (23) Pneumonia Status: Acute (24) Pneumonia involving right lung Status: Acute (25) Respiratory acidosis Status: Acute (26) Respiratory distress Status: Acute (27) Right renal artery stenosis Status: Chronic (28) Secondary hyperparathyroidism Status: Chronic (29) UTI (urinary tract infection) Status: Acute Review of Systems ros otherwise negative except for as above Objective Vital Signs Date Time Temp Pulse Resp B/P Pulse Ox O2 Delivery O2 Flow Rate FiO2 09/02/16 15:25 Nasal Cannula 6.0 09/02/16 15:00 37.1 72 18 152/80 94 Nasal Cannula 6.0 09/02/16 13:53 73 157/89 09/02/16 11:33 37.1 70 18 133/75 94 Nasal Cannula 6.0 09/02/16 09:20 Nasal Cannula 6.0 09/02/16 08:01 37.1 73 18 163/86 92 Nasal Cannula 6.0 09/02/16 04:29 37.1 76 20 159/84 93 Nasal Cannula 6.0 09/02/16 01:22 37.1 78 20 148/80 93 Nasal Cannula 6.0 09/02/16 00:00 Nasal Cannula 6.0 09/01/16 20:09 Nasal Cannula 6.0 09/01/16 20:08 36.8 79 18 151/84 93 Room Air 6.0 Physical Exam General Appearance: no apparent distress Eyes: EOMI ENT: hearing grossly normal Neck: trachea midline Respiratory/Chest: no respiratory distress, no accessory muscle use, + decreased breath sounds (basilar w some scattered mid lung rhonchi) Extremities: normal range of motion Neurologic/Psychiatric: mandrel cleaner II-XII nml as tested, alert Skin: normal color, warm/dry Laboratory Results Last 24 Hours Test 09/02/16 08:09 Thyroid Stimulating Hormone (TSH) 0.815 uIu/ml Assessment and Plan 1. Hypoxia. -mucous plugging related to prior pneumonia and bronchiectasis most likely - as noted by pulmonary still maybe some acute diastolic CHF -ABG basically just showed hypoxia -ongoing aggressive pulmonary toilet w nebs/steroids - once more stable to be able to withstand procedure, anticipate therapeutic bronch (between severe COPD , steroid myopathy, and deconditioning, her ability to move much air is severely compromised - unlikely to clear on its own), added vibration vest -no clear need for abx at this time (to clarify - has not been on abx since dose given in ER due to no fever, no further wbc elevation, procalcitonin very reassuring) -w BNP gave lasix as therapeutic trial but minimal response -- however pulmonary did see some evidence of edema on bedside US - fluid restrict, so restricting fluids, and will give lasix 80mg IV since 42 didn't have much response. f/u BMP in AM 2. Chronic respiratory failure with severe underlying COPD, ongoing supportive care as above. improving 3. Chronic diastolic congestive heart failure as above. fluid restrict for now. additional lasix x1 and follow 4. Hypertension. Continue her home meds and follow. 5. Chronic kidney disease approximately stage III. She is around her baseline. She seems to worsen abruptly with diuretics. Will need to follow closely, hopefully won't need further lasix for CHF component 6. Deep venous thrombosis prophylaxis. Heparin subQ. 7. Chronic pain. Continue her home pain meds. 8. Osteoporosis. Continue her home meds.
[2016-09-02] MEDS ORDERED: FUROSEMIDE INJ 80 MG in SYRINGE 0 ML IV ONE (19:00)
[2016-09-02] MEDS: ZOLPIDEM TARTRATE 10 MG TAB PO SCH ×2 (21:00→23:16)
[2016-09-02] MEDS: LATANOPROST 0.005% OP SOLN 2.5 ML BTL OPR SCH (21:17)
[2016-09-03] MEDS: ALBUT/IPRATROP 3MG/0.5MG NEB 3 ML VIAL INH SCH ×7 (03:35→23:52)
[2016-09-03 05:42] VITALS: BP 155/81; PULSE 75; TEMP 37; O2SAT 95
[2016-09-03 08:16] VITALS: BP_SYST 154; BP_SYST 158; BP_DIAS 82; PULSE 73; TEMP 37; O2SAT 93
[2016-09-03 08:29] LABS: BUN/CREATININE RATIO 25.7 (10-20); CALCIUM 9.1 mg/dl (8.5-10.1); CREATININE 1.7 mg/dl (0.60-1.20); POTASSIUM 3.9 mmol/L (3.5-5.1)
[2016-09-03] MEDS: ONDANSETRON INJ 2 MG/ML 2 ML VIAL IV PRN ×2 (09:15→18:34)
[2016-09-03] MEDS: METHYLPREDNISOLONE IV 30 MG in SYRINGE 0 ML IV SCH ×2 (10:38→21:07)
[2016-09-03] MEDS: SUCRALFATE 1 GM/10 ML UDC PO SCH ×4 (10:39→21:00)
[2016-09-03] MEDS: CHECK CLONIDINE PATCH PLACEMENT SCH ×4 (10:39→15:58)
[2016-09-03] MEDS: POLYETHYLENE (MIRALAX) 17 GM PACK PO SCH ×2 (10:40→20:00)
[2016-09-03] MEDS: HEPARIN SOD 5000 UNIT/0.5 ML CARP SQ SCH ×2 (10:40→21:52)
[2016-09-03] MEDS: FLUTICASONE PROPIONATE NA SPR 16 GM BTL NAE SCH ×2 (10:40→21:06)
[2016-09-03] MEDS: LIDODERM (LIDOCAINE) PATCH 5% TD SCH (10:40)
[2016-09-03] MEDS: TIOTROPIUM BROMIDE 5 PUFF/90 MCG INH INH SCH (10:41)
[2016-09-03] MEDS ORDERED: NURSING VERBAL MED ORDER ONE ×2 (10:45→23:30)
[2016-09-03] MEDS ORDERED: PROCHLORPERAZINE INJ 5 MG in SYRINGE 4 ML IV ONE (11:00)
[2016-09-03] MEDS: BACLOFEN 10 MG TAB PO SCH ×3 (11:25→20:00)
[2016-09-03] MEDS: FERROUS SULFATE 325 MG TAB PO SCH (12:08)
[2016-09-03] MEDS: CHOLECALCIFEROL 1000 INTER.UNIT TAB PO SCH (12:09)
[2016-09-03] MEDS: MULTIVITAMIN TAB PO SCH (12:09)
[2016-09-03] MEDS: PANTOprazole SOD 40 MG TAB PO SCH (12:09)
[2016-09-03] MEDS: HYDROmorphone HCL 2 MG TAB PO SCH ×2 (12:09→20:00)
[2016-09-03] MEDS: ALLOPURINOL 100 MG TAB PO SCH ×2 (12:10→20:00)
[2016-09-03] MEDS: GUAIFENESIN 600 MG TABCR PO SCH ×2 (12:36→20:00)
[2016-09-03 12:49] VITALS: BP_SYST 168; BP_SYST 178; BP_DIAS 81; BP_DIAS 92; PULSE 70; TEMP 36.7; O2SAT 93
[2016-09-03] MEDS ORDERED: LIDOCAINE HCL 2% VISC SOLN 20 ML UDC PO ONE (13:15)
[2016-09-03] MEDS ORDERED: ALUMINUM/MAGNESIUM SUSP 30 ML UDC PO ONE (13:15)
[2016-09-03] MEDS ORDERED: PROMETHAZINE HCL INJ 25 MG/ML 1 ML VIAL IM ONE (13:30)
[2016-09-03] MEDS: FAMOTIDINE IV INJ 20 MG in DEXTROSE 5% 100ML 100 ML IV SCH (13:32)
[2016-09-03] MEDS: CARVEDILOL 25 MG TAB PO SCH ×2 (13:34→20:00)
[2016-09-03] MEDS: AMLODIPINE BESYLATE 5 MG TAB PO SCH (14:37)
[2016-09-03 16:46] VITALS: BP_SYST 184; BP_SYST 187; BP_DIAS 100; BP_DIAS 98; PULSE 86; TEMP 36.5; O2SAT 90
--- NOTE | 2016-09-03 18:16 | Progress Note ---
Subjective Date of Service: Sep 03, 2016. Subjective Pt evaluation today including: conversation w/ patient, physical exam, chart review, lab review, review of inpatient medication list nauseated adn vomiting starting this AM can't keep anythign down zofran doesn't help. wants phenergan IV. discussed concern on this causing rspiratory suppression - ?OK to give IM instead - she consents. notes some upper abdominall pain. stomach acid/bile like vomit per her, no blood breathing about the same Problem List Medical Problems: (1) Bilateral pneumonia Status: Acute (2) CHF (congestive heart failure) Status: Acute (3) Chronic Kidney Disease, Stage Iii (Moderate) Status: Chronic (4) COPD exacerbation Status: Acute (5) COPD exacerbation Status: Acute (6) Crystal arthritis Status: Chronic (7) Duodenal bulb ulcer Status: Chronic (8) Failure of outpatient treatment Status: Acute (9) Failure of outpatient treatment Status: Acute (10) Gout Status: Chronic (11) Hyperlipidemia Nec/Nos Status: Chronic (12) Hypertension Status: Chronic (13) Hypoxemia Status: Acute (14) Hypoxia Status: Acute (15) Hypoxia Status: Acute (16) Hypoxia Status: Acute (17) Hypoxia Status: Acute (18) Lumbar compression fracture Status: Chronic (19) Opiate use Status: Chronic (20) Osteoporosis Status: Chronic (21) Peripheral edema Status: Acute (22) Pneumonia Status: Acute (23) Pneumonia Status: Acute (24) Pneumonia involving right lung Status: Acute (25) Respiratory acidosis Status: Acute (26) Respiratory distress Status: Acute (27) Right renal artery stenosis Status: Chronic (28) Secondary hyperparathyroidism Status: Chronic (29) UTI (urinary tract infection) Status: Acute Review of Systems Respiratory: + shortness of breath (about the same) Abdomen: + nausea, + pain, + see HPI, + vomiting Objective Vital Signs Date Time Temp Pulse Resp B/P Pulse Ox O2 Delivery O2 Flow Rate FiO2 09/03/16 16:46 36.5 86 18 187/98 90 184/100 09/03/16 16:18 Nasal Cannula 6.0 09/03/16 12:49 36.7 70 16 168/92 93 178/81 09/03/16 10:00 Nasal Cannula 6.0 09/03/16 08:16 37.0 73 16 154/82 93 158/82 09/03/16 05:42 37.0 75 16 155/81 95 Nasal Cannula 6.0 09/03/16 00:30 Nasal Cannula 6.0 09/02/16 23:12 37.2 84 20 158/75 93 2.0 09/02/16 21:31 Nasal Cannula 6.0 09/02/16 19:23 36.8 76 18 157/90 93 Physical Exam General Appearance: no apparent distress Eyes: EOMI ENT: hearing grossly normal Neck: trachea midline Respiratory/Chest: no respiratory distress, no accessory muscle use Abdomen: soft, + tenderness (mild epigastric tenderness no guarding) Extremities: normal range of motion 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 Hypoxia. -mucous plugging related to prior pneumonia and bronchiectasis most likely - as noted by pulmonary still maybe some acute diastolic CHF -ABG basically just showed hypoxia -ongoing aggressive pulmonary toilet w nebs/steroids - once more stable to be able to withstand procedure, anticipate therapeutic bronch (between severe COPD , steroid myopathy, and deconditioning, her ability to move much air is severely compromised - unlikely to clear on its own), added vibration vest -no clear need for abx at this time (to clarify - has not been on abx since dose given in ER due to no fever, no further wbc elevation, procalcitonin very reassuring) -continue trial of diuresis - gave 80mg lasix yesterday more UO although not much change in hypoxia. likely will need bronch 2. Chronic respiratory failure with severe underlying COPD, ongoing supportive care as above. improving 3. Chronic diastolic congestive heart failure as above. fluid restrict for now. additional lasix yesterday - continue to follow; given poor PO intake today and therefore accentuating her own fluid restriction - will refrain from further lasix 4. Hypertension. Continue her home meds and follow. 5. Chronic kidney disease approximately stage III. She is around her baseline. She seems to worsen abruptly with diuretics. fortunately actually improved some with lasix 6. Deep venous thrombosis prophylaxis. Heparin subQ. 7. Chronic pain. Continue her home pain meds. 8. Osteoporosis. Continue her home meds. 9. nausea and vomiting - w mild epigastric pain, strongly suspect illness/ steroid gastritis - - pepcid and protonix IV, zofran/compazine prn nausea, gave phenergan IM x1 (too high risk for respiratory suppression to give IV), maalox/ lidocaine if she can tolerate. continue to follow.
[2016-09-03] MEDS ORDERED: HydrALAZINE HCL 20 MG/ML VIAL IV. ONE (18:45)
[2016-09-03] MEDS: LATANOPROST 0.005% OP SOLN 2.5 ML BTL OPR SCH (21:06)
[2016-09-03] MEDS: PANTOprazole INJ 40 MG in SYRINGE 0 ML IV SCH (21:07)
[2016-09-03] MEDS: PROCHLORPERAZINE INJ 5 MG in SYRINGE 4 ML IV PRN (21:44)
[2016-09-03] MEDS: HydrALAZINE HCL 20 MG/ML VIAL IV. PRN (21:45)
[2016-09-03 22:51] VITALS: BP 181/76; PULSE 95; TEMP 37.4; O2SAT 94
[2016-09-03] MEDS ORDERED: LORAZEPAM 2 MG/ML 1 ML VIAL IV PRN ×2 (23:45)
[2016-09-03] MEDS ORDERED: LORAZEPAM 0.5 MG TAB PO PRN (23:45)
[2016-09-03] MEDS ORDERED: LORAZEPAM INJ 0.5 MG in SYRINGE 0.25 ML IV PRN (23:45)
[2016-09-04] VITALS (8 sets, daily range): BP systolic 162–187; BP diastolic 71–90; PULSE 80–92; TEMP 37–37.9; O2SAT 91–97
[2016-09-04] MEDS: CHECK CLONIDINE PATCH PLACEMENT SCH ×8 (00:01→20:57)
[2016-09-04] MEDS: LORAZEPAM INJ 1 MG in SYRINGE 0.5 ML IV PRN (00:04)
[2016-09-04] MEDS: ALBUT/IPRATROP 3MG/0.5MG NEB 3 ML VIAL INH SCH ×6 (01:38→23:41)
[2016-09-04] MEDS: FAMOTIDINE IV INJ 20 MG in DEXTROSE 5% 100ML 100 ML IV SCH ×2 (02:55→13:47)
[2016-09-04] MEDS: PROCHLORPERAZINE INJ 5 MG in SYRINGE 4 ML IV PRN (05:02)
[2016-09-04] MEDS: HydrALAZINE HCL 20 MG/ML VIAL IV. PRN (06:28)
[2016-09-04] MEDS: SUCRALFATE 1 GM/10 ML UDC PO SCH ×4 (06:28→20:47)
[2016-09-04 07:20] LABS: HEMATOCRIT 35.2 % (37-47); MEAN CELL VOLUME 88.7 fL (80-100); MEAN CORPUSCULAR HGB CONC 32.7 g/dl (32-36); MEAN PLATELET VOLUME 11.6 fL (7.4-10.4); PLATELET COUNT 200 K/uL (130-400); RED BLOOD COUNT 3.97 M/uL (4.2-5.4); WHITE BLOOD COUNT 19.33 K/uL (4.8-10.8)
[2016-09-04 07:50] LABS: BUN/CREATININE RATIO 20.8 (10-20); CREATININE 1.6 mg/dl (0.60-1.20); POTASSIUM 3.8 mmol/L (3.5-5.1)
[2016-09-04] MEDS ORDERED: CLONIDINE HCL 0.2 MG/24 HR TRANSDERM SYS TD SCH (09:00)
[2016-09-04] MEDS: LORAZEPAM 1 MG TAB PO PRN ×2 (09:02→23:49)
[2016-09-04] MEDS: METHYLPREDNISOLONE IV 30 MG in SYRINGE 0 ML IV SCH ×3 (09:57→20:56)
[2016-09-04] MEDS: PANTOprazole INJ 40 MG in SYRINGE 0 ML IV SCH ×2 (09:57→20:56)
[2016-09-04] MEDS: POLYETHYLENE (MIRALAX) 17 GM PACK PO SCH ×2 (11:11→20:00)
[2016-09-04] MEDS: BACLOFEN 10 MG TAB PO SCH ×3 (11:11→20:00)
[2016-09-04] MEDS: GUAIFENESIN 600 MG TABCR PO SCH ×2 (11:26→20:54)
[2016-09-04] MEDS: FLUTICASONE PROPIONATE NA SPR 16 GM BTL NAE SCH ×2 (11:26→20:00)
[2016-09-04] MEDS: TIOTROPIUM BROMIDE 5 PUFF/90 MCG INH INH SCH (11:31)
[2016-09-04] MEDS: MULTIVITAMIN TAB PO SCH (11:32)
[2016-09-04] MEDS: ALLOPURINOL 100 MG TAB PO SCH ×2 (11:32→20:00)
[2016-09-04] MEDS: FERROUS SULFATE 325 MG TAB PO SCH (11:32)
[2016-09-04] MEDS: CHOLECALCIFEROL 1000 INTER.UNIT TAB PO SCH (11:32)
[2016-09-04] MEDS: AMLODIPINE BESYLATE 5 MG TAB PO SCH (11:33)
[2016-09-04] MEDS: CARVEDILOL 25 MG TAB PO SCH ×2 (11:34→20:55)
[2016-09-04] MEDS: HYDROmorphone HCL 2 MG TAB PO SCH ×2 (11:34→16:09)
[2016-09-04] MEDS: LIDODERM (LIDOCAINE) PATCH 5% TD SCH (11:37)
[2016-09-04] MEDS: HEPARIN SOD 5000 UNIT/0.5 ML CARP SQ SCH ×2 (11:43→20:54)
--- NOTE | 2016-09-04 15:18 | Progress Note ---
Subjective Date of Service: Sep 04, 2016. Subjective Pt evaluation today including: conversation w/ patient, physical exam, chart review, lab review, review of inpatient medication list breathing about the same not really coughing much up very upset about fluid restriction - worried about how it's going to impact her kidney numbers. reassured her that we're fluid restricting because it's likely safer than more aggressive diuresis, and following creatinine closely - she feels better about this still can't sleep nausea and abdominal pain improving. tolerating soft foods - eating a lemon [place] ice without difficulty when i arrive. drinking soda. feeling somewhat better Problem List Medical Problems: (1) Bilateral pneumonia Status: Acute (2) CHF (congestive heart failure) Status: Acute (3) Chronic Kidney Disease, Stage Iii (Moderate) Status: Chronic (4) COPD exacerbation Status: Acute (5) COPD exacerbation Status: Acute (6) Crystal arthritis Status: Chronic (7) Duodenal bulb ulcer Status: Chronic (8) Failure of outpatient treatment Status: Acute (9) Failure of outpatient treatment Status: Acute (10) Gout Status: Chronic (11) Hyperlipidemia Nec/Nos Status: Chronic (12) Hypertension Status: Chronic (13) Hypoxemia Status: Acute (14) Hypoxia Status: Acute (15) Hypoxia Status: Acute (16) Hypoxia Status: Acute (17) Hypoxia Status: Acute (18) Lumbar compression fracture Status: Chronic (19) Opiate use Status: Chronic (20) Osteoporosis Status: Chronic (21) Peripheral edema Status: Acute (22) Pneumonia Status: Acute (23) Pneumonia Status: Acute (24) Pneumonia involving right lung Status: Acute (25) Respiratory acidosis Status: Acute (26) Respiratory distress Status: Acute (27) Right renal artery stenosis Status: Chronic (28) Secondary hyperparathyroidism Status: Chronic (29) UTI (urinary tract infection) Status: Acute Review of Systems ros otherwise negative except for as above Objective Vital Signs Date Time Temp Pulse Resp B/P Pulse Ox O2 Delivery O2 Flow Rate FiO2 09/04/16 13:13 171/89 09/04/16 12:01 37.9 88 16 95 09/04/16 09:20 Nasal Cannula 6.0 09/04/16 07:03 37.7 92 18 187/81 91 Nasal Cannula 6.0 09/04/16 01:14 Nasal Cannula 6.0 09/03/16 22:51 37.4 95 18 181/76 94 6.0 09/03/16 16:46 36.5 86 18 187/98 90 184/100 09/03/16 16:18 Nasal Cannula 6.0 Physical Exam General Appearance: no apparent distress Eyes: EOMI ENT: hearing grossly normal Neck: trachea midline Respiratory/Chest: no respiratory distress, no accessory muscle use, + decreased breath sounds (bibasilar) Cardiovascular: regular rate, rhythm (distant) Abdomen: soft, + tenderness (mild diffuse upper abdominal tenderness no guarding no rebound) Extremities: + pertinent finding (~1+ b/l LE edema) Neurologic/Psychiatric: 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 II-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 as tested, alert Skin: normal color, warm/dry Laboratory Results Last 24 Hours Test 09/04/16 06:05 White Blood Count 19.33 K/uL Red Blood Count 3.97 M/uL Hemoglobin 11.5 g/dL Hematocrit 35.2 % Mean Corpuscular Volume 88.7 fL Mean Corpuscular Hemoglobin 29.0 pg Mean Corpuscular Hemoglobin Concent 32.7 g/dl RDW Standard Deviation 56.3 fL RDW Coefficient of Variation 17.2 % Platelet Count 200 K/uL Mean Platelet Volume 11.6 fL Nucleated RBC Absolute Count (auto) 0.02 K/uL Nucleated Red Blood Cells % 0.1 % Sodium Level 142 mmol/L Potassium Level 3.8 mmol/L Chloride Level 98 mmol/L Carbon Dioxide Level 33 mmol/L Anion Gap 11.0 mmol/L Blood Urea Nitrogen 33 mg/dl Creatinine 1.60 mg/dl Est Creatinine Clear Calc Drug Dose 26.1 ml/min Estimated GFR () 38.0 Estimated GFR (Non- 32.8 BUN/Creatinine Ratio 20.8 Random Glucose 84 mg/dl Calcium Level 9.0 mg/dl Assessment and Plan 1. Hypoxia. -mucous plugging related to prior pneumonia and bronchiectasis most likely - as noted by pulmonary still maybe some acute diastolic CHF -ABG basically just showed hypoxia -ongoing aggressive pulmonary toilet w nebs/steroids - once more stable to be able to withstand procedure, anticipate therapeutic bronch (between severe COPD , steroid myopathy, and deconditioning, her ability to move much air is severely compromised - unlikely to clear on its own), added vibration vest -no clear need for abx at this time (to clarify - has not been on abx since dose given in ER due to no fever, no further wbc elevation, procalcitonin very reassuring) -continue treating CHF. gave lasix yesterday, not overtly/obviously a huge portion of this appearing to be fluid overload (more appearing mucous plugging > >> fluid w elements of both) -- continue fluid restrict but hold on further diuretics for now 2. Chronic respiratory failure with severe underlying COPD, ongoing supportive care as above. stable last 2 days iwthout much further improvement 3. Chronic diastolic congestive heart failure as above. fluid restrict for now. gave lasix a few times in the last few days - not overtly causing impovement in her sx despite a lot of urine outpt. likely has a degree of acute on chronic CHF at play, but likely is more of a minor player in her SOB/ hypoxia. to protect her renal function, will hold on further lasix for nwo and simply fluid restrict and follow 4. Hypertension. Continue her home meds and follow. hydralazine IV as she's not taking PO meds well 5. Chronic kidney disease approximately stage III. She is around her baseline. She usually seems to worsen abruptly with diuretics. fortunately actually improved some with lasix - but as above will mostly manage w fluid restriction and follow BMP closely 6. Deep venous thrombosis prophylaxis. Heparin subQ. 7. Chronic pain. Continue her home pain meds. 8. Osteoporosis. Continue her home meds. 9. nausea and vomiting - w mild epigastric pain, strongly suspect illness/ steroid gastritis - - pepcid and protonix IV, zofran/compazine prn nausea, gave phenergan IM x1 (too high risk for respiratory suppression to give IV), maalox/ lidocaine x 1. is slowly improving as would be expected for working dx. if improvement plateaus or backslides, would w/u for biliary pathology - but again is slowly improving. 10. insomnia - stop ambien and substitute restoril. often has a degree of tachyphylaxis and cycling usually helps.
[2016-09-04] MEDS: ONDANSETRON INJ 2 MG/ML 2 ML VIAL IV PRN ×2 (16:14)
[2016-09-04] MEDS ORDERED: NURSING VERBAL MED ORDER ONE (18:45)
[2016-09-04] MEDS: METHADONE HCL 10 MG TAB PO SCH (20:00)
[2016-09-04] MEDS: LATANOPROST 0.005% OP SOLN 2.5 ML BTL OPR SCH (20:56)
[2016-09-04] MEDS: TEMAZEPAM 15 MG CAP PO PRN (22:11)
[2016-09-05] VITALS (7 sets, daily range): BP systolic 149–166; BP diastolic 80–98; PULSE 72–82; TEMP 36.8–37.5; O2SAT 94–97
[2016-09-05] MEDS: FAMOTIDINE IV INJ 20 MG in DEXTROSE 5% 100ML 100 ML IV SCH ×2 (02:07→14:25)
[2016-09-05] MEDS: ALBUT/IPRATROP 3MG/0.5MG NEB 3 ML VIAL INH SCH ×5 (02:55→19:17)
[2016-09-05] MEDS: SUCRALFATE 1 GM/10 ML UDC PO SCH ×4 (05:57→20:16)
--- NOTE | 2016-09-05 07:27 | Hospitalist Progress Note ---
Hospitalist Progress Note Date of Service Sep 05, 2016. (Stephany Welch PA-C) Subjective Pt evaluation today including: conversation w/ patient, physical exam, chart review, lab review, review of studies, review of inpatient medication list Pain: chronic back pain PO Intake: good Voiding: no voiding problems The patient was seen and examined this morning. Pt reports not being able to sleep at all, last time she had good sleep was 5 days ago, she has tried several medications here but nothing has worked. Pt states she is too weak to walk, and hasn't tried today. She states she has been eating and drinking ok, and that her nausea has greatly improved. Additional Comments: Constitutional: No fever, chills, sweats, + weakness and unable to ambulate + fatigue Eyes: No diplopia, no changes in vision ENT: No sore throat, tinnitus, or trouble swallowing Respiratory: no shortness of breath at rest, + dyspnea on exertion but seems to be improving, no cough or sputum Cardiovascular: No chest pain, palpitations, or flutter Abdomen: No pain, No constipation, No diarrhea, No nausea, No vomiting Musculoskeletal: No calf pain, No joint pain, No swelling Genitourinary : No dysuria or urinary frequency, No hematuria Neurologic: No numbness/tingling, no sensory or motor deficits Psychiatric: No depression or anxiety symptoms Endocrine: No fatigue, No weight changes Integumentary: No itch, No rash (Stephany Welch PA-C) Objective Vital Signs Date Time Temp Pulse Resp B/P Pulse Ox O2 Delivery O2 Flow Rate FiO2 09/05/16 07:08 37.5 79 20 165/98 96 Nasal Cannula 6.0 09/05/16 04:19 37.0 72 18 159/84 94 Nasal Cannula 6.0 09/05/16 00:00 Nasal Cannula 6.0 09/04/16 23:14 37.2 80 18 162/90 95 Nasal Cannula 6.0 09/04/16 20:00 Nasal Cannula 6.0 09/04/16 19:08 165/71 09/04/16 19:07 37.0 82 18 162/87 95 09/04/16 17:07 171/79 09/04/16 17:06 37.6 89 18 164/79 97 09/04/16 16:49 Nasal Cannula 6.0 09/04/16 13:13 171/89 09/04/16 12:01 37.9 88 16 95 09/04/16 09:20 Nasal Cannula 6.0 (Stephany Welch, EVIE) Physical Exam Notes: General: awake, alert, + appears chronically ill Head: Normocephalic, atraumatic ENT: PERRL, EOMI, + pharyngeal exudate over soft and hard palate, buccal mucosa. mucous membranes moist Chest: On 6 L O2 via NC, diminished breath sounds throughout, no wheezing or rhonchi Cardiac: Regular rate and rhythm, no murmur, no JVD, normal peripheral pulses, good capillary refill Back: Curvature of the spine +kyphosis Abdominal: NABS x 4 quadrants, soft, nontender to palpation, no rebound, guarding or tenderness Extremities: Normal inspection, no peripheral edema or erythema, calfs nontender to palpation Psych: Flat affect, sad mood. Neuro: AAO x 3, speech is clear, no peripheral sensory deficits (Stephany Welch, EVIE) Laboratory Results Last 24 Hours Test 09/05/16 04:44 (Stephany Welch PA-C) Assessment and Plan Hypoxia. - mucous plugging related to prior pneumonia and bronchiectasis - Thoracic medicine on board - ongoing aggressive pulmonary toilet w nebs/steroids - Decrease Solu-Medrol 30 mg Q12h to 20mg. - we will also change the timing of steroids to 6 AM and 6 PM - once more stable to be able to withstand procedure, anticipate therapeutic bronch (between severe COPD, steroid myopathy, and deconditioning, her ability to move much air is severely compromised - unlikely to clear on its own), added vibration vest - Noted WBC elevation to 19 K on 09/05, and low grade fever overnight, recheck CXR to determine if any source of infection - appears stable compared to previous chest CT, has not been on antibiotics - continue treating CHF with fluid restriction Chronic respiratory failure with severe underlying COPD, ongoing - supportive care as above. stable last 2 days without much further improvement Chronic diastolic CHF as above. - fluid restrict for now. gave lasix a few times in the last few days - not overtly causing improvement in her sx despite a lot of urine outpt. likely has a degree of acute on chronic CHF at play, but likely is more of a minor player in her SOB/hypoxia. to protect her renal function, will hold on further lasix for now and simply fluid restrict and follow Oral candidiasis - In nystatin 4 times a day, swish and swallow as is likely in the esophagus as well - Denies any mouth soreness, pain, difficulty swallowing Hypertension. - Continue her home meds and follow. - hydralazine IV prn CKD, stage III. - She is around her baseline. She usually seems to worsen abruptly with diuretics. fortunately actually improved some with lasix - but as above will mostly manage w fluid restriction and follow BMP closely Chronic pain. Continue her home pain meds. Osteoporosis. Continue her home meds. Nausea and vomiting - w mild epigastric pain, strongly suspect illness/steroid gastritis - - pepcid and protonix IV, zofran/compazine prn nausea, gave phenergan IM x1 (too high risk for respiratory suppression to give IV), maalox/ lidocaine x 1. is slowly improving as would be expected for working dx. if improvement plateaus or backslides, would w/u for biliary pathology - but again is slowly improving. Insomnia - We'll place the patient in the sleep protocol to aid with ability to sleep tonight - decrease steroid dosage - stop ambien and substitute restoril. often has a degree of tachyphylaxis and cycling usually helps. DVT ppx: Heparin subQ CODE STATUS: Full code Disposition: From home, likely discharge whenever able to wean off IV Solu- Medrol likely in 2-3 days. (Stephany Welch PA-C) Attending Attestation: Pt seen/examined, chart reviewed, care plan d/w AIRAM Welch. I agree w/ the sanches components of her documentation. Pt c/o dry nose during the visit with crusting. She also complains that the heparin SC injections are "making her bleed all over "; requests that they stop. She feels her breathing has improved VSS Tm 37.9 overnight gen - NAD nose - significant dry crusting in both nares mouth - extensive thrush neck - no JVD heart - RRR lungs - mild, diffuse wheezing b/l with decreased BS bases no increased WOB abd - slightly distended but NT ext - no edema A/P: 1. chronic resp failure 2nd to COPD 2. COPD/bronchiectasis with exacerbation - improving 3. epigastric pain - suspect gastritis 4. thrush 5. acute on chronic kidney failure, baseline Cr lands her in CKD stage 4 6. acute/chronic diastolic CHF - improved in light of fever checked cxr today - no change from prior low threshold for abx if sx's fail to improve or worsen add humidity to o2 SCDs in carol of heparin for DVT proph; at her request nystatin for thrush nasal bactroban and saline spray for crusting no further diuresis for now Juan Nance MD (Juan Nance MD)
[2016-09-05 08:21] LABS: BUN/CREATININE RATIO 20.3 (10-20); CREATININE 1.5 mg/dl (0.60-1.20); POTASSIUM 3.8 mmol/L (3.5-5.1)
--- NOTE | 2016-09-05 08:40 | DIAGNOSTIC IMAGING REPORT ---
TWO VIEW CHEST CLINICAL HISTORY: Cough and fever. FINDINGS: AP and lateral chest radiographs are compared to study dated 08/29/2016. Correlation is made with chest CT dated 07/22/2016. The Examination is degraded by patient rotation on the AP view. The heart is enlarged and there is atherosclerotic calcification of the thoracic aorta. The pulmonary vasculature is noncongested. There are low lung volumes and chronic interstitial thickening. Small pleural effusions and dependent consolidation are again seen at both lung bases. This is best seen on the lateral view. No pneumothorax is identified. The skeletal structures are osteopenic. Thoracic and lumbar compression deformities are identified with evidence of previous vertebroplasty. Hyperkyphosis is observed. Postoperative change and chronic posttraumatic deformity is seen in the left humerus. There are numerous healed bilateral rib fractures. A renal artery stent is noted on the lateral projection. IMPRESSION: 1. Cardiomegaly without radiographic evidence of congestive failure. 2. Pleural effusions and dense bibasilar consolidation, unchanged from the 07/22/2016 CT scan. This likely represents atelectasis. Clinical correlation will be required. Electronically signed by: Tej Bernard M.D. 09/05/2016 8:38 AM Dictated Date/Time: 09/05/2016 8:35 AM
[2016-09-05] MEDS: ONDANSETRON INJ 2 MG/ML 2 ML VIAL IV PRN (09:05)
[2016-09-05] MEDS: METHYLPREDNISOLONE IV 30 MG in SYRINGE 0 ML IV SCH ×2 (09:06→18:10)
[2016-09-05] MEDS: CHECK CLONIDINE PATCH PLACEMENT SCH ×4 (09:06→16:54)
[2016-09-05] MEDS: FLUTICASONE PROPIONATE NA SPR 16 GM BTL NAE SCH ×2 (09:06→20:05)
[2016-09-05] MEDS: CARVEDILOL 25 MG TAB PO SCH ×2 (09:11→20:07)
[2016-09-05] MEDS: METHADONE HCL 10 MG TAB PO SCH ×3 (09:12→20:08)
[2016-09-05] MEDS: HYDROmorphone HCL 2 MG TAB PO SCH ×2 (09:12→20:07)
[2016-09-05] MEDS: BACLOFEN 10 MG TAB PO SCH ×3 (09:13→20:08)
[2016-09-05] MEDS: MULTIVITAMIN TAB PO SCH (09:13)
[2016-09-05] MEDS: GUAIFENESIN 600 MG TABCR PO SCH ×2 (09:13→20:09)
[2016-09-05] MEDS: AMLODIPINE BESYLATE 5 MG TAB PO SCH (09:13)
[2016-09-05] MEDS: FERROUS SULFATE 325 MG TAB PO SCH (09:13)
[2016-09-05] MEDS: CHOLECALCIFEROL 1000 INTER.UNIT TAB PO SCH (09:14)
[2016-09-05] MEDS: ALLOPURINOL 100 MG TAB PO SCH ×2 (09:14→20:09)
[2016-09-05] MEDS: PANTOprazole INJ 40 MG in SYRINGE 0 ML IV SCH ×2 (09:15→20:09)
[2016-09-05] MEDS: LIDODERM (LIDOCAINE) PATCH 5% TD SCH (09:15)
[2016-09-05] MEDS: HEPARIN SOD 5000 UNIT/0.5 ML CARP SQ SCH ×2 (09:22→20:23)
[2016-09-05] MEDS: POLYETHYLENE (MIRALAX) 17 GM PACK PO SCH ×2 (09:26→20:00)
[2016-09-05] MEDS: LORAZEPAM 1 MG TAB PO PRN ×2 (09:34→18:09)
[2016-09-05] MEDS: ACETAMINOPHEN 325 MG TAB PO PRN (09:34)
[2016-09-05] MEDS: TIOTROPIUM BROMIDE 5 PUFF/90 MCG INH INH SCH (12:10)
[2016-09-05] MEDS: NYSTATIN SUSP 500,000 U/5 ML UDC PO SCH ×3 (14:25→20:09)
[2016-09-05] MEDS ORDERED: SODIUM CHLORIDE 0.65% NA SOLN 45 ML (OCEAN) PRN (16:15)
[2016-09-05] MEDS: MUPIROCIN 2% OINT 22 GM TUBE EXT SCH ×2 (18:09→20:05)
[2016-09-05] MEDS: LATANOPROST 0.005% OP SOLN 2.5 ML BTL OPR SCH (20:11)
[2016-09-05] MEDS: TEMAZEPAM 15 MG CAP PO PRN (22:01)
[2016-09-06] VITALS (9 sets, daily range): BP systolic 132–166; BP diastolic 68–89; PULSE 68–76; TEMP 37.1–37.4; O2SAT 93–96
[2016-09-06] MEDS: FAMOTIDINE IV INJ 20 MG in DEXTROSE 5% 100ML 100 ML IV SCH ×2 (02:20→13:53)
[2016-09-06] MEDS: ALBUT/IPRATROP 3MG/0.5MG NEB 3 ML VIAL INH SCH ×6 (07:27→23:46)
[2016-09-06] MEDS: CHECK CLONIDINE PATCH PLACEMENT SCH ×8 (08:51→23:39)
[2016-09-06] MEDS: METHYLPREDNISOLONE IV 30 MG in SYRINGE 0 ML IV SCH (08:51)
[2016-09-06] MEDS: FLUTICASONE PROPIONATE NA SPR 16 GM BTL NAE SCH ×2 (08:52→18:31)
[2016-09-06] MEDS: CARVEDILOL 25 MG TAB PO SCH ×2 (08:53→18:32)
[2016-09-06] MEDS: HYDROmorphone HCL 2 MG TAB PO SCH ×2 (08:54→18:41)
[2016-09-06] MEDS: METHADONE HCL 10 MG TAB PO SCH ×3 (08:54→18:40)
[2016-09-06] MEDS: MULTIVITAMIN TAB PO SCH (08:55)
[2016-09-06] MEDS: BACLOFEN 10 MG TAB PO SCH ×3 (08:55→18:33)
[2016-09-06] MEDS: FERROUS SULFATE 325 MG TAB PO SCH (08:55)
[2016-09-06] MEDS: POLYETHYLENE (MIRALAX) 17 GM PACK PO SCH ×2 (08:55→18:42)
[2016-09-06] MEDS: GUAIFENESIN 600 MG TABCR PO SCH ×2 (08:55→18:42)
[2016-09-06] MEDS: CHOLECALCIFEROL 1000 INTER.UNIT TAB PO SCH (08:56)
[2016-09-06] MEDS: NYSTATIN SUSP 500,000 U/5 ML UDC PO SCH ×4 (08:56→18:43)
[2016-09-06] MEDS: AMLODIPINE BESYLATE 5 MG TAB PO SCH (08:56)
[2016-09-06] MEDS: LIDODERM (LIDOCAINE) PATCH 5% TD SCH (08:57)
[2016-09-06] MEDS: LORAZEPAM 1 MG TAB PO PRN (08:57)
[2016-09-06] MEDS: ONDANSETRON INJ 2 MG/ML 2 ML VIAL IV PRN (08:57)
[2016-09-06] MEDS: PANTOprazole INJ 40 MG in SYRINGE 0 ML IV SCH ×2 (08:57→20:50)
[2016-09-06] MEDS: ALLOPURINOL 100 MG TAB PO SCH ×2 (08:57→18:41)
[2016-09-06] MEDS: HEPARIN SOD 5000 UNIT/0.5 ML CARP SQ SCH ×2 (08:58→20:54)
[2016-09-06] MEDS: SUCRALFATE 1 GM/10 ML UDC PO SCH ×4 (08:59→20:51)
[2016-09-06] MEDS: MUPIROCIN 2% OINT 22 GM TUBE EXT SCH ×2 (08:59→18:31)
[2016-09-06] MEDS: TIOTROPIUM BROMIDE 5 PUFF/90 MCG INH INH SCH (11:50)
--- NOTE | 2016-09-06 15:02 | Hospitalist Progress Note ---
Hospitalist Progress Note Date of Service Sep 06, 2016. (Stephany Welch PA-C) Subjective Pt evaluation today including: conversation w/ patient, physical exam, chart review, lab review, review of studies, review of inpatient medication list The patient was seen and examined this morning. Patient reports feeling well. She states "I feel like 100 bucks today ". Denies having any abdominal pain or nausea. He was able to tolerate complete lunch and ate 100% of it. Patient denies shortness of breath at rest or with PT OT. Feels that her breathing is significantly improved. She also slept well overnight and reports that having Solu-Medrol given to her earlier definitely made a difference. Additional Comments: Constitutional: No fever, chills, sweats, fatigue or weakness Eyes: No diplopia, no changes in vision ENT: No sore throat, tinnitus, or trouble swallowing Respiratory: No shortness of breath, breathing significantly improved, on 2 L O2 , no cough or sputum Cardiovascular: No chest pain, palpitations, or flutter Abdomen: No pain, No constipation, No diarrhea, No nausea, No vomiting Musculoskeletal: No calf pain, No joint pain, + minimal swelling but has improved Genitourinary : No dysuria or urinary frequency, No hematuria Neurologic: No numbness/tingling, no difficulty with ambulation, no sensory or motor deficits Psychiatric: No depression or anxiety symptoms Endocrine: No fatigue, No weight changes Integumentary: No itch, No rash (Stephany Welch PA-C) Objective Vital Signs Date Time Temp Pulse Resp B/P Pulse Ox O2 Delivery O2 Flow Rate FiO2 09/06/16 11:40 37.3 68 18 144/81 93 3.0 09/06/16 10:23 Nasal Cannula 3.0 09/06/16 07:58 37.3 71 16 166/68 95 3.0 09/06/16 04:11 37.1 73 18 154/89 96 3.0 09/06/16 02:30 96 Nasal Cannula 3.0 09/06/16 00:02 37.2 76 18 161/79 96 5.0 09/06/16 00:00 96 Nasal Cannula 5.0 09/05/16 20:47 36.8 77 18 166/92 95 Nasal Cannula 5.0 09/05/16 20:00 96 Nasal Cannula 5.0 09/05/16 15:39 37.1 82 18 154/84 97 Nasal Cannula 5.0 09/05/16 15:30 Nasal Cannula 6.0 Humidified Oxygen (Stephany Welch PA-C) Physical Exam Notes: General: awake, alert, no apparent distress, appears brighter today, well rested , pleasant Head: Normocephalic, atraumatic ENT: PERRL, EOMI, + thrush, mucous membranes moist Chest: inspiratory and expiratory wheezing bilaterally, overall is improved, on 2L O2 via NC Cardiac: Regular rate and rhythm, no murmur, no JVD, normal peripheral pulses Abdominal: NABS x 4 quadrants, soft, nontender to palpation, no rebound, guarding or tenderness Back: Lidocaine patch in place, + kyphosis of the spine Extremities: Normal inspection, no peripheral edema or erythema, calfs nontender to palpation Psych: Normal mood and affect Neuro: AAO x 3, speech is clear, no peripheral motor or sensory deficits (Stephany Welch, VANC) Assessment and Plan Hypoxia. - Pt currently improved today - mucous plugging related to prior pneumonia and bronchiectasis - Thoracic medicine on board- appreciate recommendations - ongoing aggressive pulmonary toilet w nebs/steroids - Decrease Solu-Medrol 30 mg Q12h to 20mg. -patient reports improvement with sleep secondary to change the timing of steroids to 6 AM and 6 PM versus 8 AM and 8 PM. Continue sleep protocol - once more stable to be able to withstand procedure, anticipate therapeutic bronch (between severe COPD, steroid myopathy, and deconditioning, her ability to move much air is severely compromised - unlikely to clear on its own), cont vibration vest - Noted WBC elevation to 19 K on 09/05, CXR recheck was stable stable compared to previous chest CT, has not been on antibiotics - continue treating CHF with fluid restriction Chronic respiratory failure with severe underlying COPD, ongoing - supportive care as above. - Patient with significant improvement today: Exam still with inspiratory and expiratory wheezing bilaterally Chronic diastolic CHF as above. - fluid restrict for now. Lasix administered prior to 09/05 not overtly causing improvement in her sx despite a lot of urine outpt. likely has a degree of acute on chronic CHF at play, but likely is more of a minor player in her SOB/ hypoxia. to protect her renal function, will hold on further lasix for now and simply fluid restrict and follow Oral candidiasis - Continue Diflucan day #2 - In nystatin 4 times a day, swish and swallow as is likely in the esophagus as well - Denies any mouth soreness, pain, difficulty swallowing Hypertension. - Continue her home meds and follow. - hydralazine IV prn CKD, stage III. - She is around her baseline. She usually seems to worsen abruptly with diuretics. fortunately actually improved some with lasix - but as above will mostly manage w fluid restriction and follow BMP closely Chronic pain. Continue her home pain meds. Osteoporosis. Continue her home meds. Nausea and vomiting - resolved - w mild epigastric pain, strongly suspect illness/steroid ga smell at stritis what he continue head or urinary events - pepcid and protonix IV, zofran/ compazine prn nausea, gave phenergan IM x1 (too high risk for respiratory suppression to give IV), maalox/lidocaine x 1. if improvement plateaus or backslides, would w/u for biliary pathology - but again is slowly improving. Insomnia - resolved - Continue sleep protocol to aid with ability to sleep tonight - decrease steroid dosage - can likely change to oral prednisone tomorrow or upon discharge. - stop ambien and substitute restoril. often has a degree of tachyphylaxis and cycling usually helps. DVT ppx: Heparin subQ CODE STATUS: Full code Disposition: From home, likely discharge tomorrow (Stephany Welch, EVIE) Attending Attestation: Pt seen/examined, chart reviewed, care plan d/w AIRAM Welch. I agree w/ the sanches components of her documentation. "I feel really good today - when can I get out of here?" Breathing significantly better today. Nasal crusting/congestion much better VSS o2 sats stable on NC O2 gen - NAD mouth - extensive thrush improved today neck - no JVD heart - RRR lungs - mild wheezing b/l with decreased BS bases abd - soft today, NT ext - no edema A/P: 1. chronic resp failure 2nd to COPD 2. COPD/bronchiectasis with exacerbation - improving - wean steroids 3. epigastric pain - suspect gastritis - improved/resolved 4. thrush - improved 5. acute on chronic kidney failure, baseline Cr lands her in CKD stage 4; acute component resolved 6. acute/chronic diastolic CHF - acute component resolved d/c tomorrow ?? Juan Nance MD (Juan Nance MD)
[2016-09-06] MEDS: METHYLPREDNISOLONE IV 20 MG in SYRINGE 0 ML IV SCH (20:51)
[2016-09-06] MEDS: LATANOPROST 0.005% OP SOLN 2.5 ML BTL OPR SCH (20:51)
[2016-09-06] MEDS: TEMAZEPAM 15 MG CAP PO PRN (23:37)
[2016-09-07] VITALS (8 sets, daily range): BP systolic 146–166; BP diastolic 71–100; PULSE 71–73; TEMP 36.5–37.2; O2SAT 3–96
[2016-09-07] MEDS: FAMOTIDINE IV INJ 20 MG in DEXTROSE 5% 100ML 100 ML IV SCH ×2 (02:41→14:34)
[2016-09-07] MEDS: ALBUT/IPRATROP 3MG/0.5MG NEB 3 ML VIAL INH SCH ×5 (04:00→23:11)
[2016-09-07] MEDS: ACETAMINOPHEN 325 MG TAB PO PRN (04:12)
[2016-09-07] MEDS: LORAZEPAM 1 MG TAB PO PRN ×3 (04:12→20:29)
[2016-09-07] MEDS: SUCRALFATE 1 GM/10 ML UDC PO SCH ×4 (06:19→20:32)
[2016-09-07 06:23] LABS: HEMATOCRIT 31.1 % (37-47); MEAN CELL VOLUME 87.9 fL (80-100); MEAN CORPUSCULAR HEMOGLOBIN 28.8 pg (25-34); MEAN CORPUSCULAR HGB CONC 32.8 g/dl (32-36); MEAN PLATELET VOLUME 11.4 fL (7.4-10.4); PLATELET COUNT 140 K/uL (130-400); RED BLOOD COUNT 3.54 M/uL (4.2-5.4); WHITE BLOOD COUNT 16.61 K/uL (4.8-10.8)
[2016-09-07 06:41] LABS: BUN/CREATININE RATIO 20.3 (10-20); CALCIUM 8.6 mg/dl (8.5-10.1); CREATININE 1.6 mg/dl (0.60-1.20); POTASSIUM 4.5 mmol/L (3.5-5.1)
[2016-09-07] MEDS: TIOTROPIUM BROMIDE 5 PUFF/90 MCG INH INH SCH (09:11)
[2016-09-07] MEDS: CHECK CLONIDINE PATCH PLACEMENT SCH ×4 (09:11→17:33)
[2016-09-07] MEDS: FLUTICASONE PROPIONATE NA SPR 16 GM BTL NAE SCH ×2 (09:11→20:35)
[2016-09-07] MEDS: HYDROmorphone HCL 2 MG TAB PO SCH ×2 (09:13→20:31)
[2016-09-07] MEDS: METHADONE HCL 10 MG TAB PO SCH ×3 (09:13→20:30)
[2016-09-07] MEDS: NYSTATIN SUSP 500,000 U/5 ML UDC PO SCH ×4 (09:14→20:31)
[2016-09-07] MEDS: POLYETHYLENE (MIRALAX) 17 GM PACK PO SCH ×2 (09:14→20:36)
[2016-09-07] MEDS: BACLOFEN 10 MG TAB PO SCH ×3 (09:14→20:33)
[2016-09-07] MEDS: FERROUS SULFATE 325 MG TAB PO SCH (09:14)
[2016-09-07] MEDS: GUAIFENESIN 600 MG TABCR PO SCH ×2 (09:14→20:33)
[2016-09-07] MEDS: MULTIVITAMIN TAB PO SCH (09:14)
[2016-09-07] MEDS: ALLOPURINOL 100 MG TAB PO SCH ×2 (09:15→20:33)
[2016-09-07] MEDS: CHOLECALCIFEROL 1000 INTER.UNIT TAB PO SCH (09:15)
[2016-09-07] MEDS: AMLODIPINE BESYLATE 5 MG TAB PO SCH (09:15)
[2016-09-07] MEDS: LIDODERM (LIDOCAINE) PATCH 5% TD SCH (09:16)
[2016-09-07] MEDS: PANTOprazole INJ 40 MG in SYRINGE 0 ML IV SCH ×2 (09:16→20:35)
[2016-09-07] MEDS: HEPARIN SOD 5000 UNIT/0.5 ML CARP SQ SCH ×2 (09:17→20:44)
[2016-09-07] MEDS: MUPIROCIN 2% OINT 22 GM TUBE EXT SCH ×2 (09:19→20:34)
[2016-09-07] MEDS: CARVEDILOL 25 MG TAB PO SCH ×2 (10:12→20:32)
[2016-09-07] MEDS: METHYLPREDNISOLONE IV 20 MG in SYRINGE 0 ML IV SCH ×2 (10:12→20:35)
--- NOTE | 2016-09-07 14:17 | DIAGNOSTIC IMAGING REPORT ---
TWO VIEW CHEST CLINICAL HISTORY: COPD. Decreased breath sounds. Wheezing. FINDINGS: AP and lateral chest radiographs are compared to study dated 09/05/2016. Correlation is made with chest CT dated 07/22/2016. The examination is degraded by patient rotation on the AP view. The heart is enlarged and there is atherosclerotic calcification of the thoracic aorta. The pulmonary vasculature is noncongested. There are low lung volumes and chronic interstitial thickening. Small pleural effusions and dependent consolidation are again seen at both lung bases. This is best seen on the lateral view. No pneumothorax is identified. The skeletal structures are osteopenic. Thoracic and lumbar compression deformities are identified with evidence of previous vertebroplasty. Hyperkyphosis is observed. Postoperative change and chronic posttraumatic deformity is seen in the left humerus. There are numerous healed bilateral rib fractures. A renal artery stent is noted on the lateral projection. IMPRESSION: 1. Unchanged examination from 09/05/2016. 2. Cardiomegaly without radiographic evidence of congestive failure. 3. Pleural effusions and dense bibasilar consolidation are again noted. This likely represents atelectasis and clinical correlation will be required. Electronically signed by: Tej Bernard M.D. 09/07/2016 2:15 PM Dictated Date/Time: 09/07/2016 2:13 PM
[2016-09-07] MEDS: FLUTICASONE/SALMETEROL 250/50 (ADVAIR) 14 PUFF/1 INHALER INH SCH ×2 (17:29→20:32)
[2016-09-07] MEDS: LATANOPROST 0.005% OP SOLN 2.5 ML BTL OPR SCH (20:36)
[2016-09-08] VITALS (9 sets, daily range): BP systolic 146–190; BP diastolic 77–102; PULSE 70–77; TEMP 36.5–36.8; O2SAT 90–95
[2016-09-08] MEDS: CHECK CLONIDINE PATCH PLACEMENT SCH ×8 (00:58→23:38)
[2016-09-08] MEDS: ALBUT/IPRATROP 3MG/0.5MG NEB 3 ML VIAL INH SCH ×3 (01:48→12:00)
[2016-09-08] MEDS: FAMOTIDINE IV INJ 20 MG in DEXTROSE 5% 100ML 100 ML IV SCH (02:10)
[2016-09-08] MEDS: HydrALAZINE HCL 20 MG/ML VIAL IV. PRN ×2 (04:11→15:32)
[2016-09-08] MEDS: LORAZEPAM INJ 1 MG in SYRINGE 0.5 ML IV PRN (05:02)
[2016-09-08] MEDS: SUCRALFATE 1 GM/10 ML UDC PO SCH ×4 (06:30→20:00)
--- NOTE | 2016-09-08 08:38 | Progress Note ---
Subjective Date of Service: late entry for visit Sep 07, 2016. Subjective Pt evaluation today including: conversation w/ patient, physical exam, chart review, lab review, review of studies (cxr), review of inpatient medication list Pain: denies any abd pain today PO Intake: very good, consuming 100% meals Voiding: no voiding problems anxious to be discharged she continues with cough/congestion/wheezing but overall improved denies swallowing issues but has significant reflux disease and has known hiatal hernia Problem List Medical Problems: (1) Bilateral pneumonia Status: Acute (2) CHF (congestive heart failure) Status: Acute (3) Chronic Kidney Disease, Stage Iii (Moderate) Status: Chronic (4) COPD exacerbation Status: Acute (5) COPD exacerbation Status: Acute (6) Crystal arthritis Status: Chronic (7) Duodenal bulb ulcer Status: Chronic (8) Failure of outpatient treatment Status: Acute (9) Failure of outpatient treatment Status: Acute (10) Gout Status: Chronic (11) Hyperlipidemia Nec/Nos Status: Chronic (12) Hypertension Status: Chronic (13) Hypoxemia Status: Acute (14) Hypoxia Status: Acute (15) Hypoxia Status: Acute (16) Hypoxia Status: Acute (17) Hypoxia Status: Acute (18) Lumbar compression fracture Status: Chronic (19) Opiate use Status: Chronic (20) Osteoporosis Status: Chronic (21) Peripheral edema Status: Acute (22) Pneumonia Status: Acute (23) Pneumonia Status: Acute (24) Pneumonia involving right lung Status: Acute (25) Respiratory acidosis Status: Acute (26) Respiratory distress Status: Acute (27) Right renal artery stenosis Status: Chronic (28) Secondary hyperparathyroidism Status: Chronic (29) UTI (urinary tract infection) Status: Acute Review of Systems Constitutional: No chills, No fever Respiratory: + cough, + dyspnea on exertion, + wheezing, No sputum Cardiac: No chest pain Abdomen: No nausea, No pain, No vomiting Objective Vital Signs Date Time Temp Pulse Resp B/P Pulse Ox O2 Delivery O2 Flow Rate FiO2 09/08/16 07:25 36.8 72 18 174/86 92 09/08/16 04:44 36.5 70 20 150/89 94 Nasal Cannula 3.0 190/102 09/08/16 00:00 Nasal Cannula 3.0 09/07/16 16:15 94 Nasal Cannula 3.0 09/07/16 15:53 37.0 71 18 160/83 94 Nasal Cannula 3.0 09/07/16 14:00 3 09/07/16 11:10 36.8 72 22 157/96 95 3.0 09/07/16 10:51 Nasal Cannula 3.0 Physical Exam General Appearance: no apparent distress ENT: + pertinent finding (thrush plaques improving) Neck: no JVD Respiratory/Chest: no respiratory distress, no accessory muscle use, + decreased breath sounds (bases), + crackles (bases), + wheezing (extensive b/l all lung segments) Cardiovascular: regular rate, rhythm, no gallop Abdomen: normal bowel sounds, non tender, soft, no organomegaly Extremities: no pedal edema Neurologic/Psychiatric: alert, oriented x 3 Comments: musculoskeletal - kyphosis of back Assessment and Plan 70yo female with: 1. chronic resp failure 2nd to COPD - on home o2 amount. 2. COPD/bronchiectasis with exacerbation - improving albeit very slowly. She continues with significant wheezing despite maximum medical treatment/meds. No wean in steroids today. Repeat her sputum cx. Repeat cxr UNCHANGED. She has persistent b/l basilar infiltrates. Aspiration? Due to bronchiectasis ? Other? Consider mucomyst. Continue inhalers; I noticed she is not on advair or symbicort; resume advair. Continue nebs. Continue pulmonary toilet & mucinex. 3. epigastric pain - suspected gastritis - improved/resolved 4. thrush - improved; cont nystatin. 5. acute on chronic kidney failure, baseline Cr lands her in CKD stage 4; acute component resolved. BMP today stable. 6. acute/chronic diastolic CHF - acute component resolved clinically & radiographically. 7. ?aspiration - upper GI series in the past showed hiatal hernia and dysmotility. Speech consult to ensure ongoing respiratory issues is not from aspiration. 8. DVT proph - SCDs & heparin SC. 9. HTN - on multiple meds. h/o renal artery stenosis. BPs in the 150s/160s is "good" for her. No change in meds at this time. 10. chronic pain syndrome - continue chronic pain meds as previous. dispo - SNF but not today want more progress from pulmonary standpoint Continued [facility] stay due to: multiple IV medications needed Discharge planning: alf facility
[2016-09-08] MEDS: FLUTICASONE/SALMETEROL 250/50 (ADVAIR) 14 PUFF/1 INHALER INH SCH ×2 (08:50→19:57)
[2016-09-08] MEDS: MUPIROCIN 2% OINT 22 GM TUBE EXT SCH ×2 (08:52→20:09)
[2016-09-08] MEDS: FLUTICASONE PROPIONATE NA SPR 16 GM BTL NAE SCH ×2 (08:53→19:57)
[2016-09-08] MEDS: CARVEDILOL 25 MG TAB PO SCH ×2 (08:53→19:56)
[2016-09-08] MEDS: MULTIVITAMIN TAB PO SCH (08:53)
[2016-09-08] MEDS: CHOLECALCIFEROL 1000 INTER.UNIT TAB PO SCH (08:54)
[2016-09-08] MEDS: AMLODIPINE BESYLATE 5 MG TAB PO SCH (08:55)
[2016-09-08] MEDS: ALLOPURINOL 100 MG TAB PO SCH ×2 (08:55→19:54)
[2016-09-08] MEDS: POLYETHYLENE (MIRALAX) 17 GM PACK PO SCH ×2 (08:55→19:55)
[2016-09-08] MEDS: FERROUS SULFATE 325 MG TAB PO SCH (08:55)
[2016-09-08] MEDS: TIOTROPIUM BROMIDE 5 PUFF/90 MCG INH INH SCH (08:55)
[2016-09-08] MEDS: BACLOFEN 10 MG TAB PO SCH ×3 (08:55→19:55)
[2016-09-08] MEDS: LIDODERM (LIDOCAINE) PATCH 5% TD SCH (08:56)
[2016-09-08] MEDS: GUAIFENESIN 600 MG TABCR PO SCH ×2 (08:56→19:55)
[2016-09-08] MEDS: NYSTATIN SUSP 500,000 U/5 ML UDC PO SCH ×4 (08:56→19:58)
[2016-09-08] MEDS: METHYLPREDNISOLONE IV 20 MG in SYRINGE 0 ML IV SCH (08:57)
[2016-09-08] MEDS: LORAZEPAM 1 MG TAB PO PRN (09:05)
[2016-09-08] MEDS: HYDROmorphone HCL 2 MG TAB PO SCH ×3 (09:06→23:37)
[2016-09-08] MEDS: METHADONE HCL 10 MG TAB PO SCH ×3 (10:22→20:08)
[2016-09-08] MEDS: PANTOprazole SOD 40 MG TAB PO SCH ×2 (10:23→19:53)
--- NOTE | 2016-09-08 11:45 | Hospitalist Progress Note ---
Hospitalist Progress Note Date of Service Sep 08, 2016. (Stephany Welch PA-C) Subjective Pt evaluation today including: conversation w/ patient, physical exam, chart review, lab review, review of studies, review of inpatient medication list The patient was seen and examined this morning. Patient reports feeling tired this morning. She did not sleep well overnight. Patient is complaining of the mid back pain, chronic, for which she has lidocaine patch in place for. She denies any other acute complaints. She has not been up walking with PT OT within the past 2 days. Patient states she still feels short of breath with ambulation. Additional Comments: Constitutional: No fever, chills, sweats, + fatigue + weakness Eyes: No diplopia, no changes in vision ENT: No sore throat, tinnitus, or trouble swallowing Respiratory: + Shortness of breath with exertion, + feels breathing at rest has improved. no cough or sputum Cardiovascular: No chest pain, palpitations, or flutter Abdomen: No pain, No constipation (last bowel movement 2 days ago), No diarrhea , No nausea, No vomiting Musculoskeletal: No calf pain, No joint pain, + edema BLE Genitourinary : No dysuria or urinary frequency, No hematuria Neurologic: No numbness/tingling, no sensory or motor deficits Psychiatric: + depression, no anxiety symptoms overnight Endocrine: + fatigue Integumentary: No itch, No rash, + bruising in various locations including arms and left flank (Stephany Welch PA-C) Objective Vital Signs Date Time Temp Pulse Resp B/P Pulse Ox O2 Delivery O2 Flow Rate FiO2 09/08/16 07:25 36.8 72 18 174/86 92 09/08/16 04:44 36.5 70 20 150/89 94 Nasal Cannula 3.0 190/102 09/08/16 00:00 Nasal Cannula 3.0 09/07/16 16:15 94 Nasal Cannula 3.0 09/07/16 15:53 37.0 71 18 160/83 94 Nasal Cannula 3.0 09/07/16 14:00 3 (Stephany Welch PA-C) Physical Exam Notes: General: awake, alert,+ depressed, flat affect, poor eye contact Head: Normocephalic, atraumatic ENT: PERRL, EOMI, no pharyngeal exudate, mucous membranes moist, thrush improving Chest: On 3 L O2, improvement in breath sounds, no wheezing, + faint crackles at bases Cardiac: Regular rate and rhythm, no murmur, no JVD, normal peripheral pulses Abdominal: NABS x 4 quadrants, soft, nontender to palpation, no rebound, guarding or tenderness Back: Kyphosis, lidocaine patch in place, no point tenderness in the spine. Extremities: 2+ Pitting edema BLE , calfs nontender to palpation, no erythema Psych: + Depressed affect, flat, poor eye contact Neuro: AAO x 3, speech is clear, no peripheral sensory deficits (Stephany Welch, EVIE) Assessment and Plan Hypoxia. - Overall improving, patient without expiratory or inspiratory wheezing - mucous plugging related to prior pneumonia and bronchiectasis - Thoracic medicine on board- appreciate recs - ongoing aggressive pulmonary toilet w nebs/steroids - pt has apparently been refusing scheduled nebs. She was just put back on advair inhaler which likely gave oysterman coverage and improved her breath sounds today. - Add combivent inhaler - Will transition to oral prednisone 40 mg x 3 days, then 30 mg x 3 days and so forth. - once more stable to be able to withstand procedure, anticipate therapeutic bronch (between severe COPD, steroid myopathy, and deconditioning, her ability to move much air is severely compromised - unlikely to clear on its own), cont vibration vest - WBC trending downwards 16K on 09/07, - CXR recheck on 09/07 was stable stable compared to previous chest CT, has not been on antibiotics - continue treating CHF with fluid restriction Chronic respiratory failure with severe underlying COPD, ongoing - supportive care as above. - Patient has had a difficult course with being in and out of the hospital over the last year several times for the same symptoms, problems; the difficulty will be keeping the patient out of the hospital. Chronic diastolic CHF as above. - Continue fluid restriction to protect kidneys - seems to be stable, she has 2+ pitting edema in her lower extremities today. Repeat CXR shows stable but present pleural effusions bibasilarly. Oral candidiasis - Continue Diflucan day #4 - Cont nystatin 4 times a day, swish and swallow as is likely in the esophagus as well - improving Hypertension. - Continue her home meds and follow. - hydralazine IV prn CKD, stage III. - She is around her baseline. She usually seems to worsen abruptly with diuretics. - Follow BMP Chronic pain - Dilaudid 6 mg PO increased from BID to TID as the patient with increased worsening mid back pain. Her history of thoracic spine compression fracture and osteoporosis makes it possible that she has worsening fracture, so will check a T-spine xray. - Continue on methadone 45 mg Q12H - Continue baclofen 10 mg TID Osteoporosis- Continue her home meds., Add myocalcin nasal spray Nausea and vomiting - resolved - cont pepcid and protonix IV, zofran/compazine prn nausea, gave phenergan IM x1 (too high risk for respiratory suppression to give IV), maalox/lidocaine x 1. if improvement plateaus or backslides, would w/u for biliary pathology - but again is slowly improving. Insomnia - ongoing - Continue sleep protocol to aid with ability to sleep, worked well 2 days ago, it appears her lack of sleep is significantly affecting her mood and making her more depressed. - Hopeful to be able to reduce steroid administration and transition over to oral tablet soon - stop ambien and substitute restoril. often has a degree of tachyphylaxis and cycling usually helps. DVT ppx: Heparin subQ CODE STATUS: Full code Disposition: From [facility], discharge tomorrow (Stephany Welch PA-C) Attending Attestation: Pt seen/examined, chart reviewed, care plan d/w AIRAM Welch. I agree w/ the sanches components of her documentation. Pt very drowsy during our visit. She blames it on being tired because of lack of sleep overnight. During the night she was up much of it due to severe back pain. States it is the mid-thoracic region. Requests adjustment in chronic pain meds. Denies pulmonary symptoms today. It came to our attention today the patient had been refusing her duonebs for NUMEROUS days. VSS o2 sats stable on NC O2 gen - very drowsy; even when awake she talks w/ her eyes closed mouth - thrush resolving neck - no JVD heart - RRR lungs - decreased BS but wheezing resolved abd - soft today, NT ext - no edema neuro - drowsy, but nonfocal exam back - tender along t-spine, no flank tenderness; scoliosis, kyphosis A/P: 1. chronic resp failure 2nd to COPD 2. COPD/bronchiectasis with exacerbation - improving - wean steroids again; added advair which seems to have helped; substitute combivent in carol of duoneb 3. gastritis - improved/resolved 4. thrush - improved 5. acute on chronic kidney failure, baseline Cr lands her in CKD stage 4; acute component resolved; BMP in am for stability 6. acute/chronic diastolic CHF - acute component resolved 7. t-spine pain - suspect 2nd to DJD and/or compression fractures; repeat x- ray for stability, increase (cautiously) dilaudid to TID dosing 8. encephalopathy - check vbg to ensure no hypercarbia; could be from sleep deprivation; could be brewing infection; monitor carefully; consider ammonia level Juan Nance MD (Juan Nance MD)
[2016-09-08] MEDS: HEPARIN SOD 5000 UNIT/0.5 ML CARP SQ SCH ×2 (11:46→20:45)
--- NOTE | 2016-09-08 13:52 | DIAGNOSTIC IMAGING REPORT ---
THORACIC SPINE 2-VIEWS CLINICAL HISTORY: asses for worsening or new tsp ine fx pain COMPARISON STUDY: 07/31/2016 FINDINGS: Multiple thoracolumbar kyphoplasty' s. Multiple compression deformities all of which appear to be stable compared to the prior study. Diffuse osteoporosis. IMPRESSION: Stable thoracic spine with unchanging kyphoplasty change as well as moderate compression deformities. No new or interval finding. Electronically signed by: Klever June M.D. 09/08/2016 1:49 PM Dictated Date/Time: 09/08/2016 1:46 PM
[2016-09-08] MEDS: IPRATROPIUM BROMIDE/ALBUTEROL respimat INH INH SCH ×2 (16:44→19:57)
[2016-09-08 18:13] LABS: VEN BLD GAS O2 SATURATION 90.3 %; VEN BLOOD GAS BASE EXCESS 7.7 mmol/L; VENOUS BLOOD GAS PCO2 47 mmHg (38.0-50.0); VENOUS BLOOD GAS PO2 61 mmHg
[2016-09-08] MEDS: LATANOPROST 0.005% OP SOLN 2.5 ML BTL OPR SCH (19:59)
[2016-09-08] MEDS: DICLOFENAC SOD 1% GEL 100 GM TUBE EXT SCH (20:09)
[2016-09-08] MEDS ORDERED: TEMAZEPAM 15 MG CAP PO PRN (21:00)
[2016-09-09 00:25] VITALS: O2SAT 92
[2016-09-09] MEDS: LORAZEPAM 1 MG TAB PO PRN (00:37)
[2016-09-09 04:00] VITALS: BP 163/83; PULSE 76; O2SAT 90
[2016-09-09] MEDS: SUCRALFATE 1 GM/10 ML UDC PO SCH ×4 (05:07→21:00)
[2016-09-09] MEDS: ACETAMINOPHEN 325 MG TAB PO PRN (05:32)
[2016-09-09 06:46] LABS: BUN/CREATININE RATIO 23.9 (10-20); CALCIUM 8.9 mg/dl (8.5-10.1); CREATININE 1.2 mg/dl (0.60-1.20); POTASSIUM 4.4 mmol/L (3.5-5.1)
[2016-09-09] MEDS ORDERED: IPRA1AER2 INH (07:31)
[2016-09-09] MEDS ORDERED: HYDR2TAB3 PO (07:31)
[2016-09-09] MEDS ORDERED: MCLIN (07:31)
[2016-09-09] MEDS ORDERED: PRED10TA PO (07:31)
[2016-09-09] MEDS ORDERED: VLTG EXT (07:31)
[2016-09-09] MEDS ORDERED: ADVIN25050 INH (07:31)
[2016-09-09] MEDS ORDERED: NYSS5 PO (07:31)
--- NOTE | 2016-09-09 08:06 | Discharge Instructions ---
Discharge Instructions Date of Service Sep 09, 2016. Admission Reason for Admission: Hypoxia Discharge Discharge Diagnosis / Problem: Hypoxia secondary to mucous plugging and prior pneumonia and bronchiectasis Discharge Goals Goal(s): Decrease discomfort, Improve function, Increase independence, Improve disease control Activity Recommendations Activity Limitations: resume your previous activity Lifting Limitations: no more than 25 pounds Exercise/Sports Limitations: rest today . Instructions / Follow-Up Instructions / Follow-Up You were admitted to [facility] with hypoxia secondary to mucous plugging and prior pneumonia and bronchiectasis. It is also possible that because of your hiatal hernia, and curve of your spine, that you are having reflux and aspirating (food/spit going down the wrong tube) Medications: You have been placed on a prednisone taper: Take 40 mg (4tabs) starting tomorrow x 1 day Then take 30 mg (3 tabs) x 3 days Then take 20 mg (2 tabs) x 3 days Then take 10 mg (1 tab) x 3 days and stop. Continue taking inhalers: combivent, advair and spiriva as directed: This will help keep your lungs open and your breathing adequate. You pain medication for the back (dilaudid) has been cautiously increased from twice daily to three times daily. You have only been given 3 days of this. Please follow up with the physician at [facility] for continuation of this dosage. Continue taking other pain medications as prescribed. Follow up with pulmonary medicine regarding need for bronchoscopy in the future. An appointment has been requested for you within 2 weeks. Follow up with your Primary Care Provider at [facility] within 24-48 of arrival there. Current Hospital Diet Patient's current hospital diet: Low Sodium Diet (2gm Na) Discharge Diet Recommended Diet: Low Sodium Diet (2gm Na) Pending Studies Studies pending at discharge: no Laboratory Results Lipid Panel Test 07/28/16 05:47 Range/Units Triglycerides Level 146 0-150 mg/dl Cholesterol Level 243 H 0-200 mg/dl HDL Cholesterol 73 mg/dl Cholesterol/HDL Ratio 3.3 LDL Cholesterol, Calculated 141 mg/dl Medical Emergencies . Who to Call and When: Medical Emergencies: If at any time you feel your situation is an emergency, please call 911 immediately. . Non-Emergent Contact Non-Emergency issues call your: Primary Care Provider Call Non-Emergent contact if: you have a fever, temperature is above 100.5, your pain is not controlled, your pain is worsening, your pain is unusual for you, your pain is concerning you, you have any medication questions . 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 "Provider Documentation" section prepared by Wilma Welch. VTE Core Measure Inpt VTE Proph given/why not?: Unfractionated heparin SQ, T.E.D. Stockings, SCD 's [place] Drug Monitoring Program Search Results: patient reviewed within database
[2016-09-09] MEDS: METHADONE HCL 10 MG TAB PO SCH ×3 (08:30→23:00)
[2016-09-09] MEDS: DICLOFENAC SOD 1% GEL 100 GM TUBE EXT SCH ×4 (08:30→23:05)
[2016-09-09] MEDS: FLUTICASONE PROPIONATE NA SPR 16 GM BTL NAE SCH ×2 (10:04→23:05)
[2016-09-09] MEDS: MUPIROCIN 2% OINT 22 GM TUBE EXT SCH ×2 (10:05→23:12)
[2016-09-09] MEDS: GUAIFENESIN 600 MG TABCR PO SCH ×2 (10:06→23:10)
[2016-09-09] MEDS: IPRATROPIUM BROMIDE/ALBUTEROL respimat INH INH SCH ×4 (10:06→23:04)
[2016-09-09] MEDS: CALCITONIN SALMON NA 200 IU/AC 3.7 ML BTL SCH (10:06)
[2016-09-09] MEDS: CHECK CLONIDINE PATCH PLACEMENT SCH ×4 (10:06→16:04)
[2016-09-09] MEDS: FLUTICASONE/SALMETEROL 250/50 (ADVAIR) 14 PUFF/1 INHALER INH SCH ×2 (10:07→23:04)
[2016-09-09] MEDS: TIOTROPIUM BROMIDE 5 PUFF/90 MCG INH INH SCH (10:07)
[2016-09-09] MEDS: ALLOPURINOL 100 MG TAB PO SCH ×2 (10:08→23:11)
[2016-09-09] MEDS: BACLOFEN 10 MG TAB PO SCH ×3 (10:08→23:09)
[2016-09-09] MEDS: PANTOprazole SOD 40 MG TAB PO SCH ×2 (10:09→23:10)
[2016-09-09] MEDS: CHOLECALCIFEROL 1000 INTER.UNIT TAB PO SCH (10:09)
[2016-09-09] MEDS: NYSTATIN SUSP 500,000 U/5 ML UDC PO SCH ×4 (10:09→23:10)
[2016-09-09] MEDS: MULTIVITAMIN TAB PO SCH (10:09)
[2016-09-09] MEDS: CARVEDILOL 25 MG TAB PO SCH ×2 (10:09→23:07)
[2016-09-09] MEDS: FERROUS SULFATE 325 MG TAB PO SCH (10:10)
[2016-09-09] MEDS: ERGOCALCIFEROL 50,000 INTER.UNIT CAP PO SCH (10:10)
[2016-09-09] MEDS: AMLODIPINE BESYLATE 5 MG TAB PO SCH (10:10)
[2016-09-09] MEDS: LIDODERM (LIDOCAINE) PATCH 5% TD SCH (10:11)
[2016-09-09] MEDS: POLYETHYLENE (MIRALAX) 17 GM PACK PO SCH ×2 (10:13→20:00)
[2016-09-09 10:15] VITALS: BP 145/89; PULSE 67; TEMP 36.5; O2SAT 98
[2016-09-09] MEDS: HYDROmorphone HCL 2 MG TAB PO SCH ×3 (11:09→23:00)
[2016-09-09] MEDS: HEPARIN SOD 5000 UNIT/0.5 ML CARP SQ SCH ×2 (11:09→23:19)
[2016-09-09 12:34] VITALS: BP 145/89; PULSE 67; TEMP 36.5; O2SAT 98
--- NOTE | 2016-09-09 13:22 | Discharge Summary ---
Discharge Summary Date of Service Sep 09, 2016. (Stephany Welch PA-C) Discharge Summary Admission Date: Aug 30, 2016 at 19:49 Discharge Date: Sep 09, 2016 Discharge Disposition: halfway facility Principal Diagnosis: hypoxia and mucous plugging related to prior pneumonia and bronchiectasis Problems/Secondary Diagnoses: (1) Chronic Kidney Disease, Stage Iii (Moderate) Status: Chronic (2) Crystal arthritis Status: Chronic (3) Duodenal bulb ulcer Status: Chronic (4) Gout Status: Chronic (5) Hyperlipidemia Nec/Nos Status: Chronic (6) Hypertension Status: Chronic (7) Lumbar compression fracture Status: Chronic (8) Opiate use Status: Chronic (9) Osteoporosis Status: Chronic (10) Right renal artery stenosis Status: Chronic (11) Secondary hyperparathyroidism Status: Chronic Immunizations: Have You Had Influenza Vaccine: Yes Influenza Vaccine Date: Mar 01, 2013 History of Tetanus Vaccine?: Yes Tetanus Immunization Date: Dec 18, 2009 History of Pneumococcal: Yes Pneumococcal Date: Jun 01, 2012 History of Hepatitis B Vaccine: No Procedures: Chest x-ray 1 view 08/29/16 IMPRESSION: 1. Progressive interstitial thickening, right greater than left. There is also progressive cardiomegaly and trace bilateral pleural effusions. This favors mild asymmetric pulmonary edema. 2. Patchy bibasilar densities have also increased in may represent atelectasis or pneumonia. Chest x-ray two-view 09/05/16 IMPRESSION: 1. Cardiomegaly without radiographic evidence of congestive failure. 2. Pleural effusions and dense bibasilar consolidation, unchanged from the 07/22/2016 CT scan. This likely represents atelectasis. Clinical correlation will be required. CXR 2 view 09/07/16 IMPRESSION: 1. Unchanged examination from 09/05/2016. 2. Cardiomegaly without radiographic evidence of congestive failure. 3. Pleural effusions and dense bibasilar consolidation are again noted. This likely represents atelectasis and clinical correlation will be required. Thoracic Spine 2 view 09/08/16 IMPRESSION: Stable thoracic spine with unchanging kyphoplasty change as well as moderate compression deformities. No new or interval finding. (Stephany Welch PA-C) Discharge Date: Sep 10, 2016 Problems/Secondary Diagnoses: 1. chronic respiratory failure 2nd to COPD and bronchiectasis 2. acute on chronic diastolic CHF 3. hyperlipidemia 4. GERD with gastritis; hiatal hernia; esophageal dysmotility 5. chronic pain syndrome 6. hyponatremia - resolved 7. acute renal failure - resolved; discharge Cr 1.1 8. h/o Hodgkin's lymphoma 9. chronic constipation 10. h/o cervical cancer 11. acute encephalopathy, resolved, etiology unclear 12. bronchiectasis 13. severe kyphosis 14. thoracic compression fractures Consultations: speech therapy (Juan Nance MD) Medication Reconciliation New Medications: Prednisone (Prednisone) 10 Mg Tab 10 MG PO DIRECTED, #18 TAB 0 Refills start 09/11/16: 3 tabs daily x 3 days, then 2 tabs daily x 3 days, then 1 tab daily x 3 days then stop. Senna (Senokot) 8.6 Mg Tab 2 TAB PO QAM for 30 Days, #60 TAB 2 Refills Calcitonin [place] (Calcitonin-[place]) 30 [place]/3.7 Ml Soln 1 SPRAY NA DAILY for 30 Days, #30 DOSE Diclofenac Sod (Voltaren) 100 Appln/100 Gm Gel 1 APPLN EXT QID for 30 Days, #1 TUBE Fluticasone Prop/Salmeterol (Advair Diskus 250/50 60 Dose) 1 Ea Aerp 1 PUFFS INH BID for 90 Days, #3 INHALER 3 Refills Hydromorphone HCl (Hydromorphone HCl) 2 Mg Tab 6 MG PO TID for 10 Days, #90 TAB 0 Refills after 10 days of TID dosing please consult with medical administrative of [facility] to see if dose can be reverted back to BID dosing. Ipratropium-Albuterol (Combivent Respimat) 1 Aer Aer 1 PUFFS INH QID for 30 Days, #30 DOSE Nystatin (Nystatin) 5 Ml Susp 5 ML PO QID for 6 Days, #30 ML Temazepam (Temazepam) 15 Mg Cap 30 MG PO HS PRN for Insomnia, #30 CAP 0 Refills Changed Medications: Methadone Hcl (Dolophine) 10 Mg Tab 40 MG PO TID for 30 Days, #360 TAB 0 Refills (Changed from: 10 MG; Removed Reason; Refills: ) Prednisone (Prednisone) 1 Mg Tab 5 MG PO DAILY for 30 Days, #30 TAB 0 Refills (Changed from: Refills: ; ON HOLD BY PHYSICIAN) resume on 09/20/16. Continued Medications: Acetaminophen (Tylenol) 325 Mg Tab 650 MG PO Q6 PRN for Pain or Fever, TAB Allopurinol (Zyloprim) 100 Mg Tab 100 MG PO BID, TAB Amlodipine (Norvasc) 5 Mg Tab 10 MG PO DAILY, TAB HOLD FOR APICAL HR <50 Baclofen (Lioresal) 10 Mg Tab 10 MG PO TID, TAB Bisacodyl (Dulcolax) 10 Mg Sup 1 SUPP MO, SUP GIVE ON DAY 4 NO B/M Carvedilol (Coreg) 25 Mg Tab 25 MG PO BID, TAB HOLD FOR APICAL HR <50 Cholecalciferol (D-1000) 1,000 Unit Tab 4000 UNITS PO QD Clonidine HCl (Clonidine HCl) 1 Patch Tdsy 2 PATCH TD [place]@0900, #10 PATCH 6 Refills Dextrose (Diabetic Use) (Insta-Glucose) 77.4 % Gel 1 APPLN PO GIVE EVERY 15 MINUTES NEEDED FOR HYPOGLYCEMIA BLOOD GLUCOSE LESS THAN 60 AND/OR SYMPTOMATIC HYPOGLYCEMIA ( MUST BE RESPONSIVE AND ABLE TO SWALLOW) Epinephrine (Epipen) 0.3 Mg/0.3 Ml Inj 0.3 MG IM UD PRN for ALLERGIC REACTION Ergocalciferol (Drisdol) 50,000 Unit Cap 12726 INTER.UNIT PO WEEKLY MONDAY Ferrous Sulfate (Kp Ferrous Sulfate) 325 Mg Tab 325 MG PO DAILY Fluticasone Propionate (Nasal) (Flonase Allergy Relief Ch) 50 Mcg/Act Spr 1 SPRAY ERIC BID Glucagon (Glucagon Emergency Kit) 1 Mg Kit 1 APPLN IM EVERY 15 MINS NEEDED FOR HYPOGLYCEMIA BLOOD GLUCOSE < 50 AND OR SYMPTOMATIC/UNRESPONSIVE HYPOGLYCEMIA. MAY REPEAT IN 15 MINS IF NEEDED Guaifenesin Ext Rel (Mucinex Ext Rel) 600 Mg Tab 600 MG PO BID, TAB Hydralazine Hcl (Apresoline) 50 Mg Tab 75 MG PO TID, TAB HOLD IF SYSTOLIC BP IS < 100 AND OR HR IS <50 Ipratropium-Albuterol (Duoneb) 3 Ml Nebu 1 TREATMENT INH Q4H PRN for WH, INHA Latanoprost (Latanoprost) 37 Drops/2.5 Ml Soln 1 DROP OPR HS Lidocaine (Lidocaine) 1 Patch Tdsy 1 PATCH TD QAM, #30 PATCH Lorazepam (Ativan) 0.5 Mg Tab 0.5 MG PO TID PRN for Anxiety, TAB Lorazepam (Ativan) 1 Mg Tab 1 MG PO Q6H, TAB NEEDED FOR ANXIETY, AGITATION, OR RESTLESSNESS NOT TO EXCEED 2GRAMS/24 HOURS Magnesium Hydroxide (Milk of Magnesia) 30 Ml Susp 30 ML PO UD PRN for Constipation NEEDED FOR NO B/M FOR 9 SHIFTS Multivitamin (Multivitamin) Tab 1 TAB PO DAILY, TAB Pantoprazole (Protonix) 40 Mg Tab 40 MG PO BID, #30 TAB Polyethylene Glycol 3350 (Miralax) 1 Pow Pow 17 GM PO BID Sodium Phosphates (Fleet Enema Six Pack) 1 Lisa Lisa 1 APPL RE GIVE 4 HOURS AFTER DULCOLAX SUPP. IF NOT EFFECTIVE Sucralfate (Carafate) 1 Gm/10 Ml Qi 10 ML PO ACHS, ML Tiotropium [place] (Spiriva Handihaler) 30 Puff/540 Mcg Aerp 1 CAP INH DAILY, INHALER Discontinued Medications: Hydromorphone Hcl (Dilaudid) 2 Mg Tab 6 MG PO BID, TAB Sulfa/Trimethoprim (Bactrim Ds 800MG/160MG) Tab 1 TAB PO BID, #6 TAB START 08/28 FOR 10 DAYS FOR MRSA OF [place] Referrals At Discharge Follow up Referrals: Shipyard Supervisor Referral - Within 1 Week with Tomasz Reich MD Discharge Exam The patient was seen and examined this morning. Pt reports she feels good today. She fell asleep early this morning, but slept for a long time this morning and feels well rested. Her pain has improved with the adjustment of dilaudid regimen from twice daily to three times daily. She denies nausea, vomiting, or abdominal pain. She has ordered an early tray for lunch because she slept through breakfast. Pt is agreeable to discharge to [facility] today. ROS: 10 point ROS was obtained and negative other than HPI. Physical Exam: General: awake, alert, mood is brighter today, good eye contact Head: Normocephalic, atraumatic ENT: PERRL, EOMI, no pharyngeal exudate, mucous membranes moist, thrush improving Chest: On 3 L O2, great improvement in breath sounds, no wheezing, slight crackles bibasilarly Cardiac: Regular rate and rhythm, no murmur, no JVD, normal peripheral pulses Abdominal: NABS x 4 quadrants, soft, nontender to palpation, no rebound, guarding or tenderness Back: Kyphosis, lidocaine patch in place, no point tenderness in the spine. Extremities: 1+ Pitting edema BLE, slightly more swollen on the left than right , calfs nontender to palpation, no erythema Psych: Mood is a little brighter today, good eye contact Neuro: AAO x 3, speech is clear, no peripheral sensory deficits (Stephany Welch PA-C) Hospital Course H&P per Manuel Hall MD. HISTORY OF PRESENT ILLNESS: History is actually extremely limited from the patient as she is relatively somnolent from being short of breath at the time that I see her, although interestingly in the ER she gets much more of a history and later in day on review of nursing notes, she is actually much more awake and alert but to me she basically just reports having felt more short of breath and that is about it. No other HPI or review of systems directly obtainable. On review of the ER and in discussion with the ER, she apparently was complaining of shortness of breath that started about 5:00 yesterday evening. Nebs did not really help. She was 87% on oxygen there. They cranked up her oxygen to 6 liters, but she was still hypoxic and still feeling short of breath. She has had a run of recent MRSA pneumonias and bronchiectasis exacerbations. She has had an intermittently productive cough that she described as green slime. She is still on a steroid taper from her most recent bronchiectasis exacerbation. Again, that is all taken from records as the patient herself offers me essentially nil. PHYSICAL EXAMINATION: VITAL SIGNS: Temperature 36.8, pulse 69, respiratory rate 22, blood pressure 147/74, 92% on 15 liters. GENERAL: She awakens, recognizes me, knows where she is, but is in no distress. HEAD, EYES, EARS, NOSE, AND THROAT: Normocephalic, atraumatic. Mucous membranes are moist. CARDIOVASCULAR: Distant. No rubs, murmurs, or gallops. LUNGS: Diminished bibasilar breath sounds, maybe faint rales on the right. ABDOMEN: Soft, nondistended, nontender. No masses or organomegaly. EXTREMITIES: Without cyanosis, clubbing, about 1+ edema and not as bad as she usually is, no erythema. NEUROLOGIC: Shows cranial nerves II-XII to be grossly intact. Gross motor and sensory are intact. MUSCULOSKELETAL EXAMINATION: Shows no gross lesions. Neuro shows no focal deficits. MENTAL STATE: She is somnolent, wakes up, recognizes where she is but offers very little outside of that. Hospital Course: This is a 70yo F with PMHx of significant for chronic hypoxia and hypercarbia, chronic respiratory failure on COPD with underlying mucous plugging related to prior pneumonia and bronchiectasis. The patient is well known to pulmonary and hospitalist service through multiple admissions for same reason in the past year. Other PMHx includes hypertension, CKD stage III, chronic abdominal pain with nausea and vomiting, opioid dependence with chronic back pain due to thoracic vertebra compression fractures and DJD, osteoporosis, steroid dependence for respiratory symptoms, and severe recurrent major depressive disorder . She was treated with IV steroids, respiratory treatments , and scheduled duonebs. The patient was found to be refusing duoneb treatments during this admission, upon restart of advair her breath sounds significantly improved. Her chronic back pain was treated by increasing dilaudid PO 6 mg from BID to TID which worked well so will be continued on discharge. She will have follow up with Pulmonary medicine within 1-2 weeks for possible bronchoscopy. Hypoxia. - Overall improving, patient without expiratory or inspiratory wheezing - mucous plugging related to prior pneumonia and bronchiectasis - Thoracic medicine on board- appreciate recs - ongoing aggressive pulmonary toilet w nebs/steroids - pt has apparently been refusing scheduled nebs. 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 - Add combivent inhaler - Will transition to oral prednisone 40 mg x 1 more day, then 30 mg x 3 day, 20 mg x 3 days, 10 mg x 3 days then stop. 12 day course total, should finish on . - once more stable to be able to withstand procedure, anticipate therapeutic bronch (between severe COPD, steroid myopathy, and deconditioning, her ability to move much air is severely compromised - unlikely to clear on its own)- Follow up has been requested with pulmonary medicine within 1-2 weeks. - WBC trending downwards 16K on 09/07, - CXR recheck on 09/07 was stable stable compared to previous chest CT, has not been on antibiotics - continue treating CHF with fluid restriction Chronic respiratory failure with severe underlying COPD, ongoing - supportive care as above. - Patient has had a difficult course with being in and out of the hospital over the last year several times for the same symptoms, problems; the difficulty will be keeping the patient out of the hospital. Chronic diastolic CHF as above. - Continue fluid restriction to protect kidneys - seems to be stable, improved today versus yesterday, only 1+ pitting edema in her lower extremities today. Repeat CXR shows stable but present pleural effusions bibasilarly. Oral candidiasis - Continue Diflucan, should continue for a 10 day total course upon discharge, will give enough for 6 more day starting today. - Cont nystatin 4 times a day, swish and swallow as is likely in the esophagus as well - improving Hypertension. - Continue her home meds and follow. - hydralazine IV prn CKD, stage III. - She is around her baseline. She usually seems to worsen abruptly with diuretics. - Follow BMP Chronic pain - Dilaudid 6 mg PO increased from BID to TID as the patient with increased worsening mid back pain. Her history of thoracic spine compression fracture and osteoporosis makes it possible that she has worsening fracture, Tspine 2 view was checked on 09/08 and shows chronic, stable, compression fractures. PT had improvement in her pain with increased dosage. With her narcotic dependence / tolerance, this is reasonable to increase. She has been given 3 days supply. PCP at [facility] can continue regimen. - Continue on methadone 45 mg Q12H - Continue baclofen 10 mg TID Osteoporosis- Continue her home meds., Add myocalcin nasal spray Nausea and vomiting - resolved - cont pepcid and protonix IV, zofran/compazine prn nausea, gave phenergan IM x1 (too high risk for respiratory suppression to give IV), maalox/lidocaine x 1. if improvement plateaus or backslides, would w/u for biliary pathology - but again is slowly improving. Insomnia - ongoing - Continue sleep protocol to aid with ability to sleep, worked well 2 days ago, it appears her lack of sleep is significantly affecting her mood and making her more depressed. - Hopeful to be able to reduce steroid administration and transition over to oral tablet soon - stop Ambien and substitute restoril. often has a degree of tachyphylaxis and cycling usually helps. DVT ppx: Heparin subQ CODE STATUS: Full code Disposition: From [facility], discharge today Total Time Spent: Greater than 30 minutes This includes examination of the patient, discharge planning, medication reconciliation, and communication with other providers. (Stephany Welch PA-C) Attending Discharge Note & Attestation: 70yo female with chronic respiratory failure 2nd to COPD, bronchiectasis, and probable restrictive lung disease from kyphosis - well known to the hospitalist service due to frequent hospital admissions for her respiratory issues - who presented with ongoing dyspnea and other pulmonary symptoms. Her worsening symptoms were felt to be from a combination of acute/ chronic diastolic CHF, mucous plugging in the setting of bronchiectasis, and COPD exacerbation. She was treated with IV diuretics, steroids, and supportive care. She made slow improvement while here. Her stay was complicated by acute renal failure in the setting of her CKD stage 3, epigastric pain thought to be due to gastritis, thrush, as well as acute/ chronic back pain. For the latter she needed titration of BOTH her methadone AND dilaudid to achieve pain relief. Thoracic spine x-rays showed stable, old compression fractures. At discharge her lung exam is relatively clear and chest x-ray showed resolution of her pulmonary edema. She was restarted on advair in addition to spiriva. She will continue combivent with prn duonebs. Lastly, she was seen by speech therapy who did not see any overt signs of aspiration but felt she was at high risk of such due to known GERD, hiatal hernia, and previously identified esophageal dysmotility. She is to remain upright at all times including meal-time and sleep. At discharge she will finish a prednisone taper for her COPD. Discharge exam - gen - NAD, a/o x 3 skin - ecchymoses in the RLQ on abdominal wall with tracking to the right flank region - due to recent heparin injections mouth - nearly resolved thrush neck - no JVD heart - RRR, s1, s2 lungs - scant end-exp wheeze, good airation, scant dry rales bases, no increased work of breathing abd - slightly distended but soft, NT, BS+, no HSM ext - no edema back - minimal tenderness over t-spine and l-spine; kyphosis present She will need close follow-up with the pulmonary clinic shortly after discharge. Juan Nance MD (Juan Nance MD) Discharge Instructions Please refer to the electronic Patient Visit Report (Discharge Instructions) for additional information. (Stephany Welch PA-C) Follow-Up Follow up with your Primary Care Provider within 1 week. Follow up with pulmonology within 1-2 weeks for possible bronchoscopy. (Stephany Welch PA-C) Additional Copies To Marti Vila; Tomasz Reich MD
--- NOTE | 2016-09-09 14:03 | Hospitalist Progress Note ---
Hospitalist Progress Note Date of Service Sep 09, 2016. (Stephany Welch PA-C) Subjective The patient was seen and examined this morning. Pt reports she feels good today. She fell asleep early this morning, but slept for a long time this morning and feels well rested. Her pain has improved with the adjustment of dilaudid regimen from twice daily to three times daily. She denies nausea, vomiting, or abdominal pain. She has ordered an early tray for lunch because she slept through breakfast. Pt is agreeable to discharge to [facility] today or tomorrow. ROS: 10 point ROS was obtained and negative other than HPI. Physical Exam: General: awake, alert, mood is brighter today, good eye contact Head: Normocephalic, atraumatic ENT: PERRL, EOMI, no pharyngeal exudate, mucous membranes moist, thrush improving Chest: On 3 L O2, great improvement in breath sounds, no wheezing, slight crackles bibasilarly Cardiac: Regular rate and rhythm, no murmur, no JVD, normal peripheral pulses Abdominal: NABS x 4 quadrants, soft, nontender to palpation, no rebound, guarding or tenderness Back: Kyphosis, lidocaine patch in place, no point tenderness in the spine. Extremities: 1+ Pitting edema BLE, slightly more swollen on the left than right , calfs nontender to palpation, no erythema Psych: Mood is a little brighter today, good eye contact Neuro: AAO x 3, speech is clear, no peripheral sensory deficits (Stephany Welch, EVEI) Objective Vital Signs Date Time Temp Pulse Resp B/P Pulse Ox O2 Delivery O2 Flow Rate FiO2 09/09/16 12:34 36.5 67 16 98 Nasal Cannula 09/09/16 10:15 98 Nasal Cannula 3.0 09/09/16 10:15 36.5 67 16 145/89 98 3.0 09/09/16 04:00 76 18 163/83 90 Nasal Cannula 3.0 09/09/16 00:25 92 Nasal Cannula 3.0 09/08/16 21:30 92 Nasal Cannula 3.0 09/08/16 20:01 36.8 77 20 153/88 90 3.0 09/08/16 17:25 76 20 146/77 95 Nasal Cannula 3.0 09/08/16 15:13 90 Nasal Cannula 3.0 09/08/16 15:11 36.5 72 18 188/100 90 Nasal Cannula 3.0 (Stephany Welch PA-C) Laboratory Results Last 24 Hours Test 09/08/16 17:51 09/09/16 05:55 Venous Blood pH 7.46 Venous Blood Partial Pressure CO2 47 mmHg Venous Blood Partial Pressure O2 61 mmHg Venous Blood HCO3 33 meq/L Venous Blood Oxygen Saturation 90.3 % Venous Blood Base Excess 7.7 mmol/L Sodium Level 134 mmol/L Potassium Level 4.4 mmol/L Chloride Level 96 mmol/L Carbon Dioxide Level 31 mmol/L Anion Gap 7.0 mmol/L Blood Urea Nitrogen 29 mg/dl Creatinine 1.20 mg/dl Est Creatinine Clear Calc Drug Dose 35.8 ml/min Estimated GFR () 53.8 Estimated GFR (Non- 46.4 BUN/Creatinine Ratio 23.9 Random Glucose 83 mg/dl Calcium Level 8.9 mg/dl Ammonia 24.0 umol/L (Stephany Welch PA-C) Assessment and Plan Hospital Course: This is a 70yo F with PMHx of significant for chronic hypoxia and hypercarbia, chronic respiratory failure on COPD with underlying mucous plugging related to prior pneumonia and bronchiectasis. The patient is well known to pulmonary and hospitalist service through multiple admissions for same reason in the past year. Other PMHx includes hypertension, CKD stage III, chronic abdominal pain with nausea and vomiting, opioid dependence with chronic back pain due to thoracic vertebra compression fractures and DJD, osteoporosis, steroid dependence for respiratory symptoms, and severe recurrent major depressive disorder . She was treated with IV steroids, respiratory treatments , and scheduled duonebs. The patient was found to be refusing duoneb treatments during this admission, upon restart of advair her breath sounds significantly improved. Her chronic back pain was treated by increasing dilaudid PO 6 mg from BID to TID which worked well so will be continued on discharge. She will have follow up with Pulmonary medicine within 1-2 weeks for possible bronchoscopy. Hypoxia. - Overall improving, patient without expiratory or inspiratory wheezing - mucous plugging related to prior pneumonia and bronchiectasis - Thoracic medicine on board- appreciate recs - ongoing aggressive pulmonary toilet w nebs/steroids - pt has apparently been refusing scheduled nebs. 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 - Add combivent inhaler - Will transition to oral prednisone 40 mg x 1 more day, then 30 mg x 3 day, 20 mg x 3 days, 10 mg x 3 days then stop. 12 day course total, should finish on . - once more stable to be able to withstand procedure, anticipate therapeutic bronch (between severe COPD, steroid myopathy, and deconditioning, her ability to move much air is severely compromised - unlikely to clear on its own)- Follow up has been requested with pulmonary medicine within 1-2 weeks. - WBC trending downwards 16K on 09/07, - CXR recheck on 09/07 was stable stable compared to previous chest CT, has not been on antibiotics - continue treating CHF with fluid restriction Chronic respiratory failure with severe underlying COPD, ongoing - supportive care as above. - Patient has had a difficult course with being in and out of the hospital over the last year several times for the same symptoms, problems; the difficulty will be keeping the patient out of the hospital. Chronic diastolic CHF as above. - Continue fluid restriction to protect kidneys - seems to be stable, improved today versus yesterday, only 1+ pitting edema in her lower extremities today. Repeat CXR shows stable but present pleural effusions bibasilarly. Oral candidiasis - Continue Diflucan, should continue for a 10 day total course upon discharge, will give enough for 6 more day starting today. - Cont nystatin 4 times a day, swish and swallow as is likely in the esophagus as well - improving Hypertension. - Continue her home meds and follow. - hydralazine IV prn CKD, stage III. - She is around her baseline. She usually seems to worsen abruptly with diuretics. - Follow BMP Chronic pain - Dilaudid 6 mg PO increased from BID to TID as the patient with increased worsening mid back pain. Her history of thoracic spine compression fracture and osteoporosis makes it possible that she has worsening fracture, Tspine 2 view was checked on 09/08 and shows chronic, stable, compression fractures. PT had improvement in her pain with increased dosage. With her narcotic dependence / tolerance, this is reasonable to increase. - I will adjust her methadone dosage up in attempt to gain better pain control. - Increase methadone to 40 mg TID today - Continue baclofen 10 mg TID Osteoporosis- Continue her home meds., Add myocalcin nasal spray Nausea and vomiting - resolved - cont pepcid and protonix IV, zofran/compazine prn nausea, gave phenergan IM x1 (too high risk for respiratory suppression to give IV), maalox/lidocaine x 1. if improvement plateaus or backslides, would w/u for biliary pathology - but again is slowly improving. Insomnia - ongoing - Continue sleep protocol to aid with ability to sleep, worked well 2 days ago, it appears her lack of sleep is significantly affecting her mood and making her more depressed. - Hopeful to be able to reduce steroid administration and transition over to oral tablet soon - stop Ambien and substitute restoril. often has a degree of tachyphylaxis and cycling usually helps. DVT ppx: Heparin subQ CODE STATUS: Full code Disposition: From [facility], discharge tomorrow (Stephany Welch, EVIE) Attending Attestation: Pt seen/examined, chart reviewed, care plan d/w AIRAM Welch. I agree w/ the sanches components of her documentation. Pt much more awake/alert today. She is "scared" to return to SNF today due to her back pain. She has not started the K-pad heating pad yet. Her appetite is better than yesterday. She asks for the continued higher-dose restoril. VSS o2 sats stable on NC O2 gen - awake, alert, oriented mouth - thrush resolved on buccal mucosa; minimal on tongue neck - no JVD heart - RRR lungs - CTA b/l today; no wheeze, no crackle abd - mild distension but NT ext - no edema back - tender along t-spine, no flank tenderness; scoliosis, kyphosis - unchanged exam A/P: 1. chronic resp failure 2nd to COPD - stable 2. COPD/bronchiectasis with exacerbation - resolved - cont steroid wean; cont advair which seems to have helped; cont combivent in carol of duoneb 3. gastritis - improved/resolved 4. thrush - improved/resolved 5. acute on chronic kidney failure - acute renal failure resolved; Cr now better than baseline 6. acute/chronic diastolic CHF - acute component resolved 7. t-spine pain - 2nd to DJD and/or compression fractures; ongoing pain issues ; has been on narcotics for nearly 10 years; yesterday we increase dilaudid to 6mg TID; will adjust methadone today cont voltaren gel to back qid; heating pad 8. encephalopathy - resolved anticipate d/c to SNF tomorrow AM if back pain is reasonably controlled Juan Nance MD (Juan Nance MD)
[2016-09-09 16:58] VITALS: BP_SYST 165; BP_SYST 169; BP_DIAS 72; BP_DIAS 79; PULSE 71; TEMP 36.9; O2SAT 92
[2016-09-09] MEDS: LATANOPROST 0.005% OP SOLN 2.5 ML BTL OPR SCH (23:12)
[2016-09-09 23:43] VITALS: BP 154/78; PULSE 70; TEMP 37.2; O2SAT 95
[2016-09-10] MEDS: CHECK CLONIDINE PATCH PLACEMENT SCH ×4 (01:05→09:10)
[2016-09-10] MEDS: SUCRALFATE 1 GM/10 ML UDC PO SCH ×2 (06:30→10:50)
[2016-09-10 08:01] VITALS: BP 167/78; PULSE 67; TEMP 36.6; O2SAT 93
[2016-09-10 08:17] LABS: HEMATOCRIT 29.8 % (37-47); MEAN CELL VOLUME 87.9 fL (80-100); MEAN CORPUSCULAR HEMOGLOBIN 28.9 pg (25-34); MEAN CORPUSCULAR HGB CONC 32.9 g/dl (32-36); MEAN PLATELET VOLUME 11.2 fL (7.4-10.4); PLATELET COUNT 138 K/uL (130-400); RED BLOOD COUNT 3.39 M/uL (4.2-5.4); WHITE BLOOD COUNT 19.31 K/uL (4.8-10.8)
[2016-09-10 08:43] LABS: BUN/CREATININE RATIO 21.8 (10-20); CREATININE 1.1 mg/dl (0.60-1.20); POTASSIUM 4.4 mmol/L (3.5-5.1)
[2016-09-10 08:47] LABS: CALCIUM 9.1 mg/dl (8.5-10.1)
[2016-09-10] MEDS: HEPARIN SOD 5000 UNIT/0.5 ML CARP SQ SCH (09:03)
[2016-09-10] MEDS: LIDODERM (LIDOCAINE) PATCH 5% TD SCH (09:04)
[2016-09-10] MEDS: ALLOPURINOL 100 MG TAB PO SCH (09:04)
[2016-09-10] MEDS: CHOLECALCIFEROL 1000 INTER.UNIT TAB PO SCH (09:04)
[2016-09-10] MEDS: PANTOprazole SOD 40 MG TAB PO SCH (09:05)
[2016-09-10] MEDS: AMLODIPINE BESYLATE 5 MG TAB PO SCH (09:05)
[2016-09-10] MEDS: GUAIFENESIN 600 MG TABCR PO SCH (09:06)
[2016-09-10] MEDS: POLYETHYLENE (MIRALAX) 17 GM PACK PO SCH (09:06)
[2016-09-10] MEDS: NYSTATIN SUSP 500,000 U/5 ML UDC PO SCH (09:06)
[2016-09-10] MEDS: MULTIVITAMIN TAB PO SCH (09:06)
[2016-09-10] MEDS: FERROUS SULFATE 325 MG TAB PO SCH (09:07)
[2016-09-10] MEDS: BACLOFEN 10 MG TAB PO SCH (09:07)
[2016-09-10] MEDS: HYDROmorphone HCL 2 MG TAB PO SCH (09:08)
[2016-09-10] MEDS: METHADONE HCL 10 MG TAB PO SCH (09:08)
[2016-09-10] MEDS: FLUTICASONE PROPIONATE NA SPR 16 GM BTL NAE SCH (09:09)
[2016-09-10] MEDS: CALCITONIN SALMON NA 200 IU/AC 3.7 ML BTL SCH (09:09)
[2016-09-10] MEDS: TIOTROPIUM BROMIDE 5 PUFF/90 MCG INH INH SCH (09:11)
[2016-09-10] MEDS: DICLOFENAC SOD 1% GEL 100 GM TUBE EXT SCH ×2 (09:12→11:54)
[2016-09-10] MEDS: FLUTICASONE/SALMETEROL 250/50 (ADVAIR) 14 PUFF/1 INHALER INH SCH (09:12)
[2016-09-10] MEDS: IPRATROPIUM BROMIDE/ALBUTEROL respimat INH INH SCH (09:12)
[2016-09-10] MEDS: MUPIROCIN 2% OINT 22 GM TUBE EXT SCH (09:13)
[2016-09-10] MEDS: ACETAMINOPHEN 325 MG TAB PO PRN (09:14)
[2016-09-10] MEDS: CARVEDILOL 25 MG TAB PO SCH (09:15)
--- NOTE | 2016-09-10 10:36 | Progress Note ---
Progress Note Date of Service Sep 10, 2016. Progress Note 1030 S: Pt feeling decent today. Breathing "is good" with no dyspnea or cough. Slept 6 hours continuously last evening. Back pain improved. Ate 50% of breakfast w/o pain/nausea. O: VSS a/o x 3 today gen - nad hear - RRR lungs - scant end-exp wheeze, decreased BS bases back - kyphosis - no reproducible pain with percussion/palpation over the t- spine, l-spine, or paraspinal areas skin - she has large amount of ecchymoses over the right flank extending into the right lower quadrant/groin of abdomen - with palpation of these areas she has no pain ext - no edema Cr 1.1 today Hb 9.8 A/P: DIONI - resolved COPD exacerbation - resolving nicely. d/c on advair, spiriva, combivent, prednisone taper. back pain - improved with adjustment of methadone and dilaudid. back exam unremarkable today. although she has ecchymoses of the right flank I don't believe this represents a true retroperitoneal hemorrhage as Hb today is 9.8; 3 days ago was 10.2 I believe the skin change is blood that tracked from the abdominal wall from SC heparin injections ok to d/c to SNF today f/u with med director on Monday Byron BORGES MD
[2016-09-10] MEDS ORDERED: PRED10TA PO (10:44)
[2016-09-10] MEDS ORDERED: PRD/1 PO (10:44)
[2016-09-10] MEDS ORDERED: RST15 PO (10:44)
[2016-09-10] MEDS ORDERED: ADVIN25/60 INH (10:44)
[2016-09-10] MEDS ORDERED: METH10TA2 PO (10:44)
[2016-09-10] MEDS ORDERED: HYDR2TAB3 PO (10:47)
--- NOTE | 2016-09-10 10:55 | Discharge Instructions ---
Discharge Instructions Date of Service Sep 10, 2016. Admission Reason for Admission: Hypoxia Discharge Discharge Diagnosis / Problem: acute CHF, mucous plugging, COPD exacerbation Discharge Goals Goal(s): Decrease discomfort, Improve disease control, Learn about illness, Diagnostic testing, Therapeutic intervention Activity Recommendations Activity Level: Assistance Required Therapies: Physical Therapy, Occupational Therapy Lifting Limitations: no more than 10 pounds Exercise/Sports Limitations: gradually increase as tolerated . Additional Information Patient informed of condition: Yes Advance Directives: No DNR: No Level of Care: Skilled Communicable Disease: Yes (MRSA carriage) Prognosis: Stable Oxygen at (LPM): 3 L continuously White Catheter: No Instructions / Follow-Up Instructions / Follow-Up Please have patient follow-up with Dr. Tomasz Reich, [facility], or any pulmonary provider --- within 1 week if possible. diagnosis - COPD, chronic respiratory failure. Patient's pain medication regimen has changed as follows - 1. methadone has been increased to 40mg TID. 2. dilaudid has been increased to TID dosing (previously was BID dosing). The dilaudid at TID dosing is prescribed for 10 days only. Please consult with medical microbiologist to see if dilaudid dosing can be lowered back to BID dosing at the 10 day ale if pain is doing ok. 3. consider pain management referral for her back. See medical microbiologist of SNF within 48 hours of return to [facility]. Current Hospital Diet Patient's current hospital diet: Low Sodium Diet (2gm Na) Discharge Diet Recommended Diet: Low Sodium Diet (2gm Na) Fluid Restriction: 1500 ml (6 cups) Diet Texture: Mechanical Soft (ground) (SLIPPERY) Procedures Procedures Performed: x-rays of thoracic spine chest x-rays Pending Studies Studies pending at discharge: no Physician Orders On Transfer Special Precautions: aspiration precautions speech therapy recommendations: 1. Stringent Oral Hygiene to minimize oral bacteria that may be aspirated in secretions. [place] all surfaces of mouth with soft toothbrush and toothpaste PRIOR TO oral intake in the morning, after all meals and prior to going to bed for the night 2. GERD PRECAUTIONS: Fully upright for meals; remain upright 30 minutes after meals; keep head of bed elevated AT LEAST 30-degrees at ALL times--especially when sleeping 3. VFSS with ANY overt s/s aspiration 4. SLIPPERY diet Vital Signs: DAILY WITH o2 SATURATION Weigh: DAILY, EVERY AM, ON STANDING SCALE IF POSSIBLE NOTIFY MD OF ANY WEIGHT GAIN OF MORE THAN 2-3 POUNDS IN 1-2 DAYS RIGHT AWAY THIS CAN BE A SIGN OF CONGESTIVE HEART FAILURE Additional Orders: CBC, BMP, MAGNESIUM IN 5 DAYS FOR STABILITY POLST Discussion: Not Applicable Laboratory Results Lipid Panel Test 07/28/16 05:47 Range/Units Triglycerides Level 146 0-150 mg/dl Cholesterol Level 243 H 0-200 mg/dl HDL Cholesterol 73 mg/dl Cholesterol/HDL Ratio 3.3 LDL Cholesterol, Calculated 141 mg/dl Medical Emergencies . Who to Call and When: Medical Emergencies: If at any time you feel your situation is an emergency, please call 911 immediately. . Non-Emergent Contact Non-Emergency issues call your: Specialist (CUSTOD[employer] POTATO [employer]TER) Call Non-Emergent contact if: temperature is above 100.5, your pain is not controlled, your pain is worsening, your pain is unusual for you, your pain is concerning you, you have any medication questions . . "Provider Documentation" section prepared by Juan Nance. Core Measure Problem Core Measures: None
[2016-09-10] MEDS ORDERED: SENN-61 PO (10:57)
[2016-09-10 11:12] VITALS: BP 167/78; PULSE 67; TEMP 36.6; O2SAT 93
[2016-09-10 11:52] VITALS: BP 133/84; PULSE 63; TEMP 36.7; O2SAT 95
== END 2016-09-10 12:56 | DRG 190 ==
LOC: ENRESERVDT → ENRESERVTM → EDBD 05:26 → C.EDA 05:28 → C.4E 07:38 → UNDOADMOB 07:38 → INTOOBSV 08-30 19:49 → OBSVTOIN 08-30 19:49 → C.4E 09-09 00:34
PROVIDERS: ADMIT Family Medicine; ATTEND Internal Medicine
DX: J47.9 Bronchiectasis, uncomplicated (principal); I50.33 Acute on chronic diastolic (congestive) heart failure; J96.10 Chronic respiratory failure, unspecified whether with hypoxia or hypercapnia; I13.0 Hypertensive heart and chronic kidney disease with heart failure and stage 1 through stage 4 chronic kidney disease, or unspecified chronic kidney disease; N25.81 Secondary hyperparathyroidism of renal origin; B37.0 Candidal stomatitis; N17.9 Acute kidney failure, unspecified; T17.990A Other foreign object in respiratory tract, part unspecified in causing asphyxiation, initial encounter; X58.XXXA Exposure to other specified factors, initial encounter; E55.9 Vitamin D deficiency, unspecified; N18.3 Chronic kidney disease, stage 3 (moderate); M81.0 Age-related osteoporosis without current pathological fracture; G47.00 Insomnia, unspecified; E78.5 Hyperlipidemia, unspecified; G89.29 Other chronic pain; K21.9 Gastro-esophageal reflux disease without esophagitis; M10.9 Gout, unspecified; Z87.891 Personal history of nicotine dependence; Z79.899 Other long term (current) drug therapy; Z85.41 Personal history of malignant neoplasm of cervix uteri; Z79.52 Long term (current) use of systemic steroids; Z99.81 Dependence on supplemental oxygen; Z82.49 Family history of ischemic heart disease and other diseases of the circulatory system; Z85.72 Personal history of non-Hodgkin lymphomas

== ENCOUNTER → 2016-09-16 | Outpatient (CLI) | payer OTHER, MEDICARE ==
[~2016-09-16] MED LIST changes: +ACET-1311 PO; +ADVIN25/60 INH; -ADVIN25050 INH; -ALBINS INH; +ALLO100T PO; +AMLO-110 PO; +APR25 PO; -APR50 PO; +ATV/1 PO; -ATV1 PO; +BACL10TA PO; +BISA10SU3 PR; +CARV25TA PO; -CHOL100010 PO; +CHOLTAB5 PO; +CLON0.2D4 TD; +CLON0.3D4 TD; +CRFL PO; -CRG25 PO; +CYM/30 PO; +DEXT40GE PO; +DICL1GEL12 TD; +DULO-24 PO; +EPP3/2 IM; +ERGO50002 PO; +FERR1TAB13 PO; +FLUT1SPR12 NAE; +GLGKIT IM; +GUAI1TAB55 PO; +HYDR-4717 PO; +HYDR2TAB48 PO; +HYDR4TAB78 PO; +IPRA1AER2 INH; -LATA0.009 OPR; +LSX20 PO; +MCLIN; +MCLIN NAE; +MELATAB2 PO; +METH10TA2 PO; +MGC40 PO; +MOMLX PO; -MRLP17 PO; -MTH10 PO; +MULT-506 PO; +NF656 TD; +NYSP EXT; +NYSS5 PO; +ONDA4TAB10 SL; +PANT40TA PO; +PLV75 PO; +POLY335019 PO; +POTA10CA28 PO; +PRD/1 PO; +PRED-301 PO; +PRED10TA PO; +RST15 PO; +RST75 PO; +SACC250C3 PO; +SENN-61 PO; +SENN-63 PO; +SODI1ENE RE; +SPRIN/30 INH; +SULF800T23 PO; -TIOTCAP INH; +VLTG EXT; +XLTOPS OPR; +ZOLP5TAB6 PO
== END ==
LOC: C.LABUPBEA 08:33 → EDSTATUS 10-04 11:39
PROVIDERS: ATTEND Family Medicine
DX: E87.6 Hypokalemia (principal)

== ENCOUNTER → 2016-09-22 | Outpatient (CLI) | payer OTHER, MEDICARE ==
[2016-09-22 09:40] LABS: MEAN CORPUSCULAR HGB CONC 30.8 g/dl (32-36); MEAN PLATELET VOLUME 11.3 fL (7.4-10.4); PLATELET COUNT 155 K/uL (130-400)
[2016-09-22 10:11] LABS: BASO % 0.1 %; BASO ABS # 0.01 K/uL (0-0.2); COMPLETE YES; EOS % 1.3 %; HEMATOCRIT 32.1 % (37-47); IG% 0.6 %; LYMPH % 12.2 %; LYMPH ABS # 1.07 K/uL (1.2-3.4); MEAN CELL VOLUME 91.2 fL (80-100); MEAN CORPUSCULAR HEMOGLOBIN 28.1 pg (25-34); MONO % 11.4 %; NEUT % 74.4 %; RED BLOOD COUNT 3.52 M/uL (4.2-5.4); WHITE BLOOD COUNT 8.75 K/uL (4.8-10.8)
--- NOTE | 2016-10-10 14:33 | CODING QUERY NO DIAGNOSIS ---
TREATMENT RENDERED WITHOUT A DIAGNOSIS 47 To promote full compliance with coding requirements relating to patient care, physician participation is requested in all cases of bottling supervisor uncertainty. Please assist us with providing a diagnosis/symptom for the test(s) below: A diagnosis/symptom was not documented on your Order. A valid diagnosis/symptom is required to bill all insurances. Please remember that we are unable to code a diagnosis of rule out, probable, possible, questionable, or suspected. DOS 09/22/16 Tests that require a diagnosis: * CBC with DIFF DIAGNOSIS: *ON YOUR ORDER YOU HAVE DX CODE C81.9, THIS IS AN INVALID CODE, CAN YOU PLEASE ADD CORRECT DX CODE Provider Signature: Date: Thank you Do Raman Health Information Management Once completed, please kindly fax back to [phone] For questions please call [phone]
== END ==
LOC: C.LABUPBEA 09:13 → EDSTATUS 10-04 11:54
PROVIDERS: ATTEND Family Medicine
DX: D64.9 Anemia, unspecified (principal); K59.04 Chronic idiopathic constipation

== ENCOUNTER → 2016-09-22 | Outpatient (CLI) | payer OTHER, MEDICARE ==
[2016-09-22 10:54] LABS: URINE APPEARANCE CLEAR (CLEAR); URINE BILIRUBIN NEG (NEG); URINE COLOR YELLOW; URINE NITRITE NEG (NEG); URINE SPECIFIC GRAVITY 1.018 (1.000-1.030); UROBILINOGEN NEG (NEG)
[2016-09-22 11:01] LABS: MANUAL MICROSCOPIC REQUIRED? NO; REVIEW REQ? NO
== END ==
LOC: C.LABUPBEA 09:22 → EDSTATUS 10-04 11:50
PROVIDERS: ATTEND Family Medicine
DX: R30.0 Dysuria (principal)

== ENCOUNTER → 2016-09-30 | Outpatient (CLI) | payer OTHER, MEDICARE ==
[2016-09-30 10:24] LABS: BLOOD UREA NITROGEN 26 mg/dl (7-18); BUN/CREATININE RATIO 17.3 (10-20); CALCIUM 9.7 mg/dl (8.5-10.1); CARBON DIOXIDE 34 mmol/L (21-32); CHLORIDE 106 mmol/L (98-107); GLUCOSE 64 mg/dl (70-99); POTASSIUM 4.5 mmol/L (3.5-5.1); SODIUM 145 mmol/L (136-145)
== END ==
LOC: C.LABUPBEA 09:31 → EDSTATUS 10-04 11:52
PROVIDERS: ATTEND Nurse Practitioner Family
DX: E87.5 Hyperkalemia (principal); N18.3 Chronic kidney disease, stage 3 (moderate)

== ENCOUNTER 2016-10-04 18:55 | Inpatient (IN) | payer OTHER ==
[~2016-10-04] VITALS: Ht 149.9 cm; Wt 59.5 kg
[~2016-10-04 18:55] MED LIST changes: -APR25 PO; -CLON0.2D4 TD; -CLON0.3D4 TD; -CYM/30 PO; -DICL1GEL12 TD; -DULO-24 PO; +ETOMIDATE 2 MG/ML 20 ML VIAL IV ONE; +FENTANYL CITRATE INJ 50 MCG/1 ML 2 ML VIAL IV ONE; -HYDR2TAB48 PO; -HYDR4TAB78 PO; -LSX20 PO; -MCLIN NAE; -MELATAB2 PO; -MGC40 PO; +MIDAZOLAM HCL 5 MG/ML 2ML VIAL IV ONE; -NF656 TD; -NYSP EXT; -ONDA4TAB10 SL; -PLV75 PO; -POTA10CA28 PO; -PRED-301 PO; -RST75 PO; -SACC250C3 PO; -SENN-63 PO; +SUCCINYLCHOLINE CHLORIDE 20 MG/ML 10 ML VIAL IV ONE; -SULF800T23 PO; -ZOLP5TAB6 PO
[2016-10-04] MEDS ORDERED: MCLIN NAE (19:40)
[2016-10-04] MEDS ORDERED: CLON0.2D4 TD (19:45)
[2016-10-04] MEDS ORDERED: DULO-24 PO (19:51)
--- NOTE | 2016-10-04 19:51 | DIAGNOSTIC IMAGING REPORT ---
CHEST ONE VIEW PORTABLE CLINICAL HISTORY: Acute change in mental status COMPARISON STUDY: 09/07/2016 FINDINGS: The heart is enlarged. There are low lung volumes. There are bibasilar opacities (atelectasis favored over pneumonia. Clinical correlation necessary).. There is aortic tortuosity.[ IMPRESSION: 1. Stable cardiomegaly 2. Persistent bibasilar opacities, atelectatic versus inflammatory. Electronically signed by: Himanshu Cueto M.D. 10/04/2016 7:50 PM Dictated Date/Time: 10/04/2016 7:49 PM
--- NOTE | 2016-10-04 19:54 | DIAGNOSTIC IMAGING REPORT ---
CT HEAD WITHOUT CONTRAST (CT) CLINICAL HISTORY: Acute change in mental status COMPARISON STUDY: 02/04/2015 TECHNIQUE: Axial CT of the brain is performed from the vertex to the skull base. IV contrast was not administered for this examination. CT DOSE: 614.27 mGy.cm FINDINGS: No intra or extra-axial mass lesions are visualized. There is no CT evidence of acute cortical infarction. There is no evidence of midline shift. There is no acute hemorrhage. No calvarial fractures are visualized. There are minimal white matter hypodensities likely on a small vessel basis. There is no evidence of pathologic ventricular dilatation. There is no evidence of acute sinusitis. There is a small polypoid density within the left sphenoid sinus IMPRESSION: No acute intracranial findings Electronically signed by: Himanshu Cueto M.D. 10/04/2016 7:53 PM Dictated Date/Time: 10/04/2016 7:51 PM
[2016-10-04] MEDS ORDERED: NF656 TD (19:57)
[2016-10-04] MEDS ORDERED: MGC40 PO (19:59)
[2016-10-04] MEDS ORDERED: POTA10CA28 PO (20:01)
[2016-10-04] MEDS ORDERED: PRED-301 PO (20:03)
[2016-10-04] MEDS ORDERED: SENN-63 PO (20:05)
[2016-10-04] MEDS ORDERED: ADVIN25/60 INH (20:07)
[2016-10-04] MEDS ORDERED: CEFEPIME IV 1,000 MG in DEXTROSE 5% 100ML 100 ML IV STA (20:09)
[2016-10-04] MEDS ORDERED: METH10TA2 PO (20:17)
[2016-10-04] MEDS ORDERED: IPRA1AER2 INH (20:21)
[2016-10-04] MEDS ORDERED: DICL1GEL12 TD (20:24)
[2016-10-04] MEDS ORDERED: HYDR2TAB48 PO (20:26)
[2016-10-04 20:27] LABS: BASO % 0.1 %; BASO ABS # 0.01 K/uL (0-0.2); COMPLETE YES; EOS % 0.1 %; HEMATOCRIT 35.9 % (37-47); IG% 0.8 %; LYMPH % 14.9 %; LYMPH ABS # 1.45 K/uL (1.2-3.4); MEAN CORPUSCULAR HEMOGLOBIN 28.6 pg (25-34); MEAN CORPUSCULAR HGB CONC 31.8 g/dl (32-36); MEAN PLATELET VOLUME 11.2 fL (7.4-10.4); MONO % 9.2 %; NEUT % 74.9 %; PLATELET COUNT 247 K/uL (130-400); RED BLOOD COUNT 3.99 M/uL (4.2-5.4)
[2016-10-04] MEDS ORDERED: HYDR4TAB78 PO (20:28)
[2016-10-04] MEDS ORDERED: ZOLP5TAB6 PO (20:35)
[2016-10-04 20:36] LABS: PARTIAL THROMBOPLASTIN RATIO 1.1; PROTHROMBIN TIME (PATIENT) 11.1 SECONDS (9.0-12.0)
[2016-10-04 20:39] LABS: URINE APPEARANCE CLEAR (CLEAR); URINE BILIRUBIN NEG (NEG); URINE COLOR YELLOW; URINE NITRITE NEG (NEG); URINE PH 8.5 (4.5-7.5); URINE SPECIFIC GRAVITY 1.015 (1.000-1.030); UROBILINOGEN NEG (NEG); ZZURINE CULT IF INDIC CATH YES
[2016-10-04 20:44] LABS: MANUAL MICROSCOPIC REQUIRED? NO; REVIEW REQ? NO
[2016-10-04 20:45] LABS: SULFASALICYLIC ACID POS (NEG)
[2016-10-04 20:46] LABS: ALT/SGPT 25 U/L (12-78); AST/SGOT 23 U/L (15-37); BLOOD UREA NITROGEN 24 mg/dl (7-18); CALCIUM 9.7 mg/dl (8.5-10.1); CARBON DIOXIDE 31 mmol/L (21-32); CHLORIDE 107 mmol/L (98-107); GLUCOSE 64 mg/dl (70-99); POTASSIUM 4.3 mmol/L (3.5-5.1); SODIUM 145 mmol/L (136-145)
[2016-10-04 20:50] LABS: ALKALINE PHOSPHATASE 150 U/L (45-117)
[2016-10-04] MEDS: FLUCONAZOLE 100 MG TAB PO STA ×2 (23:06→23:33)
[2016-10-05] VITALS (7 sets, daily range): BP systolic 127–155; BP diastolic 79–90; PULSE 79–87; TEMP 36.8–37.6; O2SAT 94–97; Ht 149.9 cm; Wt 59.5 kg
--- NOTE | 2016-10-05 01:56 | EMERGENCY ROOM VISIT NOTE ---
History Report prepared by Ana Luisa: Brian Whyte Under the Supervision of: Dr. Manuel Serna D.O. First contact with patient: 19:06 Chief Complaint: LETHARGIC Stated Complaint: LETHARGY History of Present Illness This HPI is limited due to altered mental status. The patient is a 71 year old female who presents to the Emergency Room from [facility]. The patient's only complaint is that her back hurts, but she states that her back hurts at baseline. She cannot ambulate, and gets around via wheel chair. History is limited due to her lethargy and altered mental status. She denies any headache, chest pain, shortness of breath or abdominal pain. She does admit to back pain but this is unchanged from previous back pain. Source of History: patient History Limited By: AMS Position: back Review of Systems Limited due to altered mental status. See HPI for pertinent positives & negatives. A total of 10 systems reviewed and were otherwise negative. Past Medical & Surgical Medical Problems: (1) Ambulatory dysfunction (2) Back pain (3) Cholelithiases (4) Chronic kidney disease (CKD) stage G3a/A1, moderately decreased glomerular filtration rate (GFR) between 45-59 mL/min/1.73 square meter and albuminuria creatinine ratio less than 30 mg/g (5) Chronic Kidney Disease, Stage Iii (Moderate) (6) Compression fracture of fourth lumbar vertebra (7) Constipation (8) COPD (chronic obstructive pulmonary disease) (9) Crystal arthritis (10) Duodenal bulb ulcer (11) DVT (deep venous thrombosis) (12) Fecal impaction of colon (13) Fracture of right olecranon process (14) Gout (15) Gout attack (16) Headache (17) Hodgkins lymphoma (18) Humerus fracture (19) Hyperlipidemia Nec/Nos (20) Hypertension (21) Hypertension (22) Hypertension (23) Hypertensive urgency (24) Hypertensive urgency (25) Hypertensive urgency (26) Intractable abdominal pain (27) Intractable pain (28) Intractable pain (29) Intractable pain (30) Knee pain (31) Left renal artery stenosis (32) Lethargy (33) Lower extremity edema (34) Lumbar compression fracture (35) Malignant HTN with heart disease, 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, with chronic kidney disease (36) Medication reaction (37) Methadone withdrawal (38) Mucus plugging of bronchi (39) Narcotic withdrawal (40) Narcotic withdrawal (41) Noncompliance with medication regimen (42) Noncompliance with medications (43) Opiate use (44) Osteoporosis (45) Perforated duodenal ulcer (46) PNA (pneumonia) (47) Pneumonia (48) right hand cellulitis (49) Right renal artery stenosis (50) Secondary hyperparathyroidism (51) Shortness of breath (52) Thrush, oral (53) UTI (urinary tract infection) (54) Vomiting (55) Wedge compression fracture of T11 vertebra Surgical Problems: (1) History of kyphoplasty (2) left renal artery stent placement Family History Heart disease Social History Smoking Status: Never Smoker Alcohol Use: none Drug Use: none Marital Status: Housing Status: lives with family Occupation Status: disabled Current/Historical Medications Scheduled Allopurinol (Zyloprim), 100 MG PO BID Amlodipine (Norvasc), 10 MG PO DAILY Baclofen (Lioresal), 10 MG PO BID Calcitonin [place] (Calcitonin-[place]), 1 SPRAY ERIC DAILY Carvedilol (Coreg), 25 MG PO BID Cholecalciferol (D-1000), 4,000 UNITS PO DAILY Clonidine Hcl (Dauwmiaj-Bdu-9), 2 PATCH TD WK Diclofenac Sodium (Topical) (Voltaren 1% Top Gel), 1 GM TD QID Duloxetine Hcl (Cymbalta), 20 MG PO DAILY Ergocalciferol (Drisdol), 50,000 INTER.UNIT PO WEEKLY Ferrous Sulfate (Kp Ferrous Sulfate), 325 MG PO DAILY Fluticasone Prop/Salmeterol (Advair Diskus 250/50 60 Dose), 1 PUFFS INH BID Fluticasone Propionate (Nasal) (Flonase Allergy Relief ), 1 SPRAY ERIC BID Guaifenesin Ext Rel (Mucinex Ext Rel), 600 MG PO BID Hydralazine Hcl (Apresoline), 75 MG PO TID Hydromorphone Hcl (Dilaudid), 4 MG PO Q4H Ipratropium-Albuterol (Combivent Respimat), 1 PUFFS INH QID Latanoprost (Latanoprost), 1 DROP OPR HS Lidocaine (Lidoderm Patch 5%), 1 PATCH TD DAILY Lorazepam (Ativan), 0.5 MG PO TID Megestrol Acetate (Megace), 40 MG PO QAM Methadone Hcl (Dolophine), 30 MG PO TID Multivitamin (Multivitamin), 1 TAB PO DAILY Pantoprazole (Protonix), 40 MG PO BID Polyethylene Glycol 3350 (Miralax), 17 GM PO BID Potassium Chloride (Micro-K Ext Rel), 10 MEQ PO DAILY Prednisone (Prednisone), 5 MG PO DAILY Sennosides (Senokot), 1 TAB PO QAM Sucralfate (Carafate), 1 GM PO ACHS Tiotropium [place] (Spiriva Handihaler), 1 CAP INH DAILY Scheduled PRN Acetaminophen (Tylenol), 650 MG PO Q6 PRN for Pain or Fever Epinephrine (Epipen), 0.3 MG IM UD PRN for ALLERGIC REACTION Hydromorphone Hcl (Dilaudid), 6 MG PO Q4H PRN for PAIN # 6-10 Ipratropium-Albuterol (Duoneb), 1 TREATMENT INH Q4H PRN for WH Lorazepam (Ativan), 0.5 MG PO Q6H PRN for Anxiety Magnesium Hydroxide (Milk of Magnesia), 30 ML PO UD PRN for Constipation Zolpidem Tartrate (Zolpidem Tartrate), 5 MG PO HS PRN for INSOMNIA Miscellaneous Medications Bisacodyl (Dulcolax), 1 SUPP MO Dextrose (Diabetic Use) (Insta-Glucose), 1 APPLN PO Glucagon (Glucagon Emergency Kit), 1 APPLN IM Sodium Phosphates (Fleet Enema Six Pack), 1 APPL RE Allergies Coded Allergies: Squash (Verified Allergy, Unknown, Zucchini, 08/29/16) Azithromycin (Verified Adverse Reaction, Unknown, nausea, 08/29/16) Levofloxacin (Verified Adverse Reaction, Unknown, nausea, 08/29/16) Physical Exam Vital Signs Date Time Temp Pulse Resp B/P Pulse Ox O2 Delivery O2 Flow Rate FiO2 10/04/16 23:02 84 10/04/16 22:30 82 18 123/76 93 Nasal Cannula 3.0 10/04/16 21:30 80 18 127/70 96 Nasal Cannula 3.0 10/04/16 20:30 76 18 138/64 98 Nasal Cannula 3.0 10/04/16 19:05 36.6 103 18 169/88 94 Nasal Cannula 3.0 Physical Exam GENERAL: alert, chronically ill-appearing appearing, well nourished, no distress , non-toxic EYE EXAM: normal conjunctiva OROPHARYNX: Dry mucous membranes NECK: supple, no nuchal rigidity, no adenopathy, non-tender LUNGS: Clear to auscultation. Normal chest wall mechanics HEART: no murmurs, S1 normal and S2 normal ABDOMEN: abdomen soft, non-tender, normo-active bowel sounds, no masses, no rebound or guarding. SKIN: no rashes and no bruising UPPER EXTREMITIES: upper extremities are grossly normal. LOWER EXTREMITIES: No pitting edema. NEURO EXAM: Awakens to voice but extremely somnolent, cranial nerves II-XII grossly intact, moving all extremities and nonfocal. Able to answer some questions. Medical Decision & Procedures ER Provider Diagnostic Interpretation: Radiology results as stated below per my review and the radiologist's interpretation: CHEST ONE VIEW PORTABLE CLINICAL HISTORY: Acute change in mental status COMPARISON STUDY: 09/07/2016 FINDINGS: The heart is enlarged. There are low lung volumes. There are bibasilar opacities (atelectasis favored over pneumonia. Clinical correlation necessary).. There is aortic tortuosity.[ IMPRESSION: 1. Stable cardiomegaly 2. Persistent bibasilar opacities, atelectatic versus inflammatory. Electronically signed by: Himanshu Cueto M.D. 10/04/2016 7:50 PM Dictated Date/Time: 10/04/2016 7:[address] HEAD WITHOUT CONTRAST (CT) CLINICAL HISTORY: Acute change in mental status COMPARISON STUDY: 02/04/2015 TECHNIQUE: Axial CT of the brain is performed from the vertex to the skull base. IV contrast was not administered for this examination. CT DOSE: 614.27 mGy.cm FINDINGS: No intra or extra-axial mass lesions are visualized. There is no CT evidence of acute cortical infarction. There is no evidence of midline shift. There is no acute hemorrhage. No calvarial fractures are visualized. There are minimal white matter hypodensities likely on a small vessel basis. There is no evidence of pathologic ventricular dilatation. There is no evidence of acute sinusitis. There is a small polypoid density within the left sphenoid sinus IMPRESSION: No acute intracranial findings Electronically signed by: Himanshu Cueto M.D. 10/04/2016 7:53 PM Dictated Date/Time: 10/04/2016 7:51 PM Laboratory Results Test 10/04/16 20:06 10/04/16 20:30 Prothrombin Time 11.1 SECONDS (9.0-12.0) Prothromb Time International Ratio 1.0 (0.9-1.1) Activated Partial Thromboplast Time 28.0 SECONDS (21.0-31.0) Partial Thromboplastin Ratio 1.1 Direct Bilirubin < 0.1 mg/dl (0-0.2) Urine Color YELLOW Urine Appearance CLEAR (CLEAR) Urine pH 8.5 (4.5-7.5) Urine Specific [place] 1.015 (1.000-1.030) Urine Protein 2+ (NEG) Urine Glucose (UA) NEG (NEG) Urine Ketones TRACE (NEG) Urine Occult Blood NEG (NEG) Urine Nitrite NEG (NEG) Urine Bilirubin NEG (NEG) Urine Urobilinogen NEG (NEG) Urine Leukocyte Esterase NEG (NEG) Urine WBC (Auto) 1-5 /hpf (0-5) Urine RBC (Auto) 0-4 /hpf (0-4) Urine Hyaline Casts (Auto) 1-5 /lpf (0-5) Urine Epithelial Cells (Auto) 5-10 /lpf (0-5) Urine Bacteria (Auto) 2+ (NEG) Laboratory results per my review. Medications Administered Medications (Trade) Dose Ordered Sig/Estephania Route Start Time Stop Time Status Last Admin Dose Admin Cefepime HCl/ Dextrose (Maxipime IV/D5 100ml) 111.3 ml @ 200 mls/hr NOW STAT IV 10/04/16 20:09 10/04/16 20:42 DC 10/04/16 20:51 200 MLS/HR ECG Indication: altered mental status Rate (beats per minute): 105 Rhythm: sinus tachycardia Findings: PAC, Q waves (Inferior), other (LAD, poor baseline) Comparison ECG Date: 08/29/2016 Change: no significant change ED Course ED COURSE: Vital signs were reviewed and showed tachycardiac vitals. The patients medical record was reviewed The above diagnostic studies were performed and reviewed. ED treatments and interventions as stated above. 1914: The patient was evaluated in room C4. A complete history and physical examination was performed. 2008: Ordered Cefepime HCL 1000 mg/Dextrose 111.3 mL @ 200 mL/hr IV. 2248: I discussed the case with Dr. Michael - [facility] Hospitalist Resident, he will evaluate the patient for further treatment. 2306: Ordered Diflucan tab 200 mg PO. 2308: Upon reevaluation, the patient is resting in bed.I discussed my findings with the patient and she understands and agrees with the treatment plan. Based on the patients age, coexisting illnesses, exam and lab findings the decision to treat as an inpatient was made. The patient remained stable while under my care. The patient will be evaluated for further management. Medical Decision Differential diagnoses includes but is not limited to toxic, metabolic, infectious, traumatic, cardiac, neurologic, hematologic, psychiatric and inflammatory etiologies. Patient is a 71-year-old female who presents the ER for lethargy and altered mental status. She is on a large amount of narcotics at heart side has been titrating down. She is normally awake alert and following commands and interactive. On evaluation she does awaken to voice but falls asleep very quickly during conversation. She is complaining of persistent lower back pain which the patient notes is not new or changed. This is has been there for years and the jail confirms this. Labs show a mild anemia 11. BMP is remarkable for creatinine of 1.5. Troponin was not elevated. Bilirubin along with LFTs was unremarkable. UA had bacteria along with epithelial cells but no nitrates or leuks. CT head was negative. Chest x-ray showed a question of left lower lobe infiltrate. I did cover her with cefepime. Although difficult to arouse her neuro exam is nonfocal. She was given Narcan prior to arrival with no improvement. I did discuss the case with the jail and they note that this is new. There was no new medications/opiates. Based on her extreme lethargy patient was admitted to internal medicine for further workup. Consults Time Called: [phone] Consulting Physician: Dr. Fernanda BURLESON Hospitalist Resident Returned Call: [phone] I discussed the case with Dr. Fernanda BURLESON Hospitalist Resident, he will evaluate the patient for further treatment. Impression Primary Impression: Lethargy Additional Impressions: Altered mental status Anemia Scribe Attestation The scribe's documentation has been prepared under my direction and personally reviewed by me in its entirety. I confirm that the note above accurately reflects all work, treatment, procedures, and medical decision making performed by me. Departure Information Dispostion Being Evaluated By Hospitalist Referrals Marti Vila (PCP) Patient Instructions My [facility] Problem Qualifiers Additional Impressions: Altered mental status Altered mental status type: unspecified Qualified Codes: R41.82 - Altered mental status, unspecified Anemia Anemia type: unspecified type Qualified Codes: D64.9 - Anemia, unspecified
--- NOTE | 2016-10-05 05:00 | History and Physical ---
History & Physical Date & Time of Service: October 05, 2016 at 04:57 Chief Complaint: Lethargy; Thrush,Oral; Uti Primary Care Physician: Marti Vila History of Present Illness Source: patient, clinic records, hospital records History from ER notes and [facility] note as patient is unsure why she is in the ER. She can tell me the year, her name and date of . She is aware she is in hospital and resides at the [facility]. She complains of back pain but cannot elaborate on that in terms of duration and progression. She denies any fevers, chills, cough, urinary symptoms, bowel incontinence. Past Medical/Surgical History Medical Problems: (1) Ambulatory dysfunction (2) Cholelithiases (3) Chronic Kidney Disease, Stage III (Moderate) (4) Compression fracture of fourth lumbar vertebra (5) Duodenal bulb ulcer (6) Gout (7) Hodgkins lymphoma (8) Hyperlipidemia (9) Hypertension (10) Bilateral renal artery stenosis (11) Opiate use (12) Osteoporosis (13) Perforated duodenal ulcer (14) Secondary hyperparathyroidism (15) Wedge compression fracture of T11 vertebra (16) COPD Surgical Problems: (1) History of kyphoplasty Status: Resolved (2) left renal artery stent placement Status: Resolved Family History Heart disease Social History Smoking Status: Never Smoker Drug Use: none Marital Status: Housing status: residential Occupational Status: disabled Immunizations History of Influenza Vaccine: Yes Influenza Vaccine Date: Mar 01, 2013 History of Tetanus Vaccine?: Yes Tetanus Immunization Date: Dec 18, 2009 History of Pneumococcal: Yes Pneumococcal Date: Jun 01, 2012 History of Hepatitis B Vaccine: No Multi-Drug Resistant Organisms History of MDRO: Yes Type of MDRO: MRSA Allergies Coded Allergies: Squash (Verified Allergy, Unknown, Zucchini, 08/29/16) Azithromycin (Verified Adverse Reaction, Unknown, nausea, 08/29/16) Levofloxacin (Verified Adverse Reaction, Unknown, nausea, 08/29/16) Home Medications Scheduled Allopurinol (Zyloprim), 100 MG PO BID Amlodipine (Norvasc), 10 MG PO DAILY Baclofen (Lioresal), 10 MG PO BID Calcitonin [place] (Calcitonin-[place]), 1 SPRAY ERIC DAILY Carvedilol (Coreg), 25 MG PO BID Cholecalciferol (D-1000), 4,000 UNITS PO DAILY Clonidine Hcl (Adatbnlg-Wsg-2), 2 PATCH TD WK Diclofenac Sodium (Topical) (Voltaren 1% Top Gel), 1 GM TD QID Duloxetine Hcl (Cymbalta), 20 MG PO DAILY Ergocalciferol (Drisdol), 50,000 INTER.UNIT PO WEEKLY Ferrous Sulfate (Kp Ferrous Sulfate), 325 MG PO DAILY Fluticasone Prop/Salmeterol (Advair Diskus 250/50 60 Dose), 1 PUFFS INH BID Fluticasone Propionate (Nasal) (Flonase Allergy Relief Ch), 1 SPRAY ERIC BID Guaifenesin Ext Rel (Mucinex Ext Rel), 600 MG PO BID Hydralazine Hcl (Apresoline), 75 MG PO TID Hydromorphone Hcl (Dilaudid), 4 MG PO Q4H Ipratropium-Albuterol (Combivent Respimat), 1 PUFFS INH QID Latanoprost (Latanoprost), 1 DROP OPR HS Lidocaine (Lidoderm Patch 5%), 1 PATCH TD DAILY Lorazepam (Ativan), 0.5 MG PO TID Megestrol Acetate (Megace), 40 MG PO QAM Methadone Hcl (Dolophine), 30 MG PO TID Multivitamin (Multivitamin), 1 TAB PO DAILY Pantoprazole (Protonix), 40 MG PO BID Polyethylene Glycol 3350 (Miralax), 17 GM PO BID Potassium Chloride (Micro-K Ext Rel), 10 MEQ PO DAILY Prednisone (Prednisone), 5 MG PO DAILY Sennosides (Senokot), 1 TAB PO QAM Sucralfate (Carafate), 1 GM PO ACHS Tiotropium [place] (Spiriva Handihaler), 1 CAP INH DAILY Scheduled PRN Acetaminophen (Tylenol), 650 MG PO Q6 PRN for Pain or Fever Epinephrine (Epipen), 0.3 MG IM UD PRN for ALLERGIC REACTION Hydromorphone Hcl (Dilaudid), 6 MG PO Q4H PRN for PAIN # 6-10 Ipratropium-Albuterol (Duoneb), 1 TREATMENT INH Q4H PRN for WH Lorazepam (Ativan), 0.5 MG PO Q6H PRN for Anxiety Magnesium Hydroxide (Milk of Magnesia), 30 ML PO UD PRN for Constipation Zolpidem Tartrate (Zolpidem Tartrate), 5 MG PO HS PRN for INSOMNIA Miscellaneous Medications Bisacodyl (Dulcolax), 1 SUPP [place] Dextrose (Diabetic Use) (Insta-Glucose), 1 APPLN PO Glucagon (Glucagon Emergency Kit), 1 APPLN IM Sodium Phosphates (Fleet Enema Six Pack), 1 APPL RE Physical Exam Vital Signs Date Time Temp Pulse Resp B/P Pulse Ox O2 Delivery O2 Flow Rate FiO2 10/05/16 01:14 36.9 86 18 144/87 Nasal Cannula 4.0 10/05/16 00:00 36.9 86 18 144/87 94 4.0 10/04/16 23:48 83 17 142/77 95 Nasal Cannula 3.0 10/04/16 23:02 84 10/04/16 22:30 82 18 123/76 93 Nasal Cannula 3.0 10/04/16 21:30 80 18 127/70 96 Nasal Cannula 3.0 10/04/16 20:30 76 18 138/64 98 Nasal Cannula 3.0 10/04/16 19:05 36.6 103 18 169/88 94 Nasal Cannula 3.0 General Appearance: WD/WN, no apparent distress Head: normocephalic, atraumatic Eyes: normal inspection, PERRL (pupils dilated but equal and reactive), EOMI ENT: normal ENT inspection Neck: supple, no adenopathy, thyroid normal, trachea midline Respiratory/Chest: chest non-tender, lungs clear, normal breath sounds, no respiratory distress, no accessory muscle use Cardiovascular: regular rate, rhythm, no edema, no murmur, normal peripheral pulses Abdomen/GI: normal bowel sounds, non tender, soft Back: no CVA tenderness Extremities/Musculoskelatal: no calf tenderness, normal capillary refill, no pedal edema Neurologic/Psych: no motor/sensory deficits (slow but no focal deficit noted, she is bedbound), alert, + depressed affect, + disoriented (time (to year), place (to hospital), not to person) Diagnostics Laboratory Results Results Past 24 Hours Test 10/04/16 20:06 10/04/16 20:30 Range/Units White Blood Count 9.70 4.8-10.8 K/uL Red Blood Count 3.99 4.2-5.4 M/uL Hemoglobin 11.4 12.0-16.0 g/dL Hematocrit 35.9 37-47 % Mean Corpuscular Volume 90.0 80-100 fL Mean Corpuscular Hemoglobin 28.6 25-34 pg Mean Corpuscular Hemoglobin Concent 31.8 32-36 g/dl Platelet Count 247 130-400 K/uL Mean Platelet Volume 11.2 7.4-10.4 fL Neutrophils (%) (Auto) 74.9 % Lymphocytes (%) (Auto) 14.9 % Monocytes (%) (Auto) 9.2 % Eosinophils (%) (Auto) 0.1 % Basophils (%) (Auto) 0.1 % Neutrophils # (Auto) 7.26 1.4-6.5 K/uL Lymphocytes # (Auto) 1.45 1.2-3.4 K/uL Monocytes # (Auto) 0.89 0.11-0.59 K/uL Eosinophils # (Auto) 0.01 0-0.5 K/uL Basophils # (Auto) 0.01 0-0.2 K/uL RDW Standard Deviation 57.4 36.4-46.3 fL RDW Coefficient of Variation 17.4 11.5-14.5 % Immature Granulocyte % (Auto) 0.8 % Immature Granulocyte # (Auto) 0.08 0.00-0.02 K/uL Prothrombin Time 11.1 9.0-12.0 SECONDS Prothromb Time International Ratio 1.0 0.9-1.1 Activated Partial Thromboplast Time 28.0 21.0-31.0 SECONDS Partial Thromboplastin Ratio 1.1 Sodium Level 145 136-145 mmol/L Potassium Level 4.3 3.5-5.1 mmol/L Chloride Level 107 98-107 mmol/L Carbon Dioxide Level 31 21-32 mmol/L Anion Gap 7.0 3-11 mmol/L Blood Urea Nitrogen 24 7-18 mg/dl Creatinine 1.50 0.60-1.20 mg/dl Est Creatinine Clear Calc Drug Dose 27.9 ml/min Estimated GFR () 40.8 Estimated GFR (Non- 35.2 BUN/Creatinine Ratio 16.0 10-20 Random Glucose 64 70-99 mg/dl Calcium Level 9.7 8.5-10.1 mg/dl Total Bilirubin 0.5 0.2-1 mg/dl Direct Bilirubin < 0.1 0-0.2 mg/dl Aspartate Amino Transf (AST/SGOT) 23 15-37 U/L Alanine Aminotransferase (ALT/SGPT) 25 12-78 U/L Alkaline Phosphatase 150 45-117 U/L Troponin I 0.017 0-0.045 ng/ml Total Protein 6.0 6.4-8.2 gm/dl Albumin 2.8 3.4-5.0 gm/dl Urine Color YELLOW Urine Appearance CLEAR CLEAR Urine pH 8.5 4.5-7.5 Urine Specific [place] 1.015 1.000-1.030 Urine Protein 2+ NEG Urine Glucose (UA) NEG NEG Urine Ketones TRACE NEG Urine Occult Blood NEG NEG Urine Nitrite NEG NEG Urine Bilirubin NEG NEG Urine Urobilinogen NEG NEG Urine Leukocyte Esterase NEG NEG Urine WBC (Auto) 1-5 0-5 /hpf Urine RBC (Auto) 0-4 0-4 /hpf Urine Hyaline Casts (Auto) 1-5 0-5 /lpf Urine Epithelial Cells (Auto) 5-10 0-5 /lpf Urine Bacteria (Auto) 2+ NEG Microbiology Results 10/04/16 Blood Culture, Received Pending 10/04/16 Blood Culture, Received Pending 10/04/16 Urine Culture, Received Pending Diagnostic Radiology CT HEAD WITHOUT CONTRAST (CT) CLINICAL HISTORY: Acute change in mental status COMPARISON STUDY: 02/04/2015 TECHNIQUE: Axial CT of the brain is performed from the vertex to the skull base. IV contrast was not administered for this examination. CT DOSE: 614.27 mGy.cm FINDINGS: No intra or extra-axial mass lesions are visualized. There is no CT evidence of acute cortical infarction. There is no evidence of midline shift. There is no acute hemorrhage. No calvarial fractures are visualized. There are minimal white matter hypodensities likely on a small vessel basis. There is no evidence of pathologic ventricular dilatation. There is no evidence of acute sinusitis. There is a small polypoid density within the left sphenoid sinus IMPRESSION: No acute intracranial findings Electronically signed by: Himanshu Cueto M.D. 10/04/2016 7:53 PM Dictated Date/Time: 10/04/2016 7:51 PM CHEST ONE VIEW PORTABLE CLINICAL HISTORY: Acute change in mental status COMPARISON STUDY: 09/07/2016 FINDINGS: The heart is enlarged. There are low lung volumes. There are bibasilar opacities (atelectasis favored over pneumonia. Clinical correlation necessary).. There is aortic tortuosity.[ IMPRESSION: 1. Stable cardiomegaly 2. Persistent bibasilar opacities, atelectatic versus inflammatory. Electronically signed by: Himanshu Cueto M.D. 10/04/2016 7:50 PM Dictated Date/Time: 10/04/2016 7:49 PM EKG Sinus tachycardia with Premature atrial complexes Left ventricular hypertrophy with repolarization abnormality Abnormal ECG When compared with ECG of 29-AUG-2016 05:46, Premature atrial complexes are now Present Vent. rate has increased BY [address] more depressed Anterior leads Non-specific change in ST segment in Lateral leads Impression Assessment and Plan 71 year old female from [facility] who presents to the ER for lethargy and altered mental state. She is on chronic opiates however did not respond to narcan given in the residential. Altered mental state - unclear baseline but appears improved since being seen in the ER. CT head negative. No WBC elevation. Urine suggestive of infection. Proteus has grown from urine cultures previously resistant to cefazolin, cefuroxime, nitrofurantoin, Bactrim, ampicillin and ciprofloxacin. CXR - probably bibasal atelectasis rather than pneumonia. - Will get blood and urine cultures and treat as a UTI (complicated) with Zosyn given above resistance and intolerance to levofloxacin. - Does not appear septic but mildly dehydrated therefore start fluids - Will hold off benzodiazepines and opiate medications currently due to AMS and monitor for withdrawal symptoms. - call [facility] for baseline status in the morning to make sure she is back to her normal state Oral thrush - probable esophageal candidiasis - Treat with fluconazole as AMS may limit nystatin use Chronic opiate use - monitor for withdrawal symptoms VTE Prophylaxis - heparin 5000 units Q8H Code - Full as per POLST form Disposition - admit to med/surg Level of Care Med/Surg Advanced Directives Existing Living Will: No Existing Power of [employer] Professor: No Resuscitation Status FULL RESUSCITATION VTE Prophylaxis VTE Risk Assessment Done? Y/N: Yes Risk Level: Moderate Given or contraindicated: Unfractionated heparin SQ Social Service Consult Lives in [facility] Additional Copies To [facility] Nursing and Rehab Resident Tracking Resident Involvement: Resident Care Provided Care Provided: Adult Hospital Medicine Assessment and Plan Attending Addendum: I have physically seen and examined this patient, have directed their medical care, have supervised the medical residents activities, and agree with the H&P as noted above, with the following changes: NONE
[2016-10-05] MEDS ORDERED: FLUCONAZOLE / NSS 200 MG in PREMIXED NSS 100 ML IV STA (05:01)
[2016-10-05] MEDS ORDERED: SODIUM CHLORIDE 0.9% 1000ML 1,000 ML IV SCH (05:15)
[2016-10-05] MEDS ORDERED: MAGNESIUM HYDROXIDE SUSP 30 ML UDC PO PRN (05:15)
[2016-10-05] MEDS ORDERED: PIPERACILL/TAZOBAC CONSULT ACTIVE PRN (05:30)
[2016-10-05] MEDS ORDERED: PIPERACILL/TAZOBAC IV 3.375 GM in DEXTROSE 5% 100ML IV ONE (05:30)
[2016-10-05 06:27] LABS: BASO % 0.1 %; BASO ABS # 0.01 K/uL (0-0.2); COMPLETE YES; EOS % 0.5 %; HEMATOCRIT 34.5 % (37-47); IG% 0.7 %; LYMPH % 14.6 %; LYMPH ABS # 1.85 K/uL (1.2-3.4); MEAN CELL VOLUME 89.8 fL (80-100); MEAN CORPUSCULAR HEMOGLOBIN 28.4 pg (25-34); MEAN CORPUSCULAR HGB CONC 31.6 g/dl (32-36); MEAN PLATELET VOLUME 10.6 fL (7.4-10.4); MONO % 12.5 %; NEUT % 71.6 %; PLATELET COUNT 221 K/uL (130-400); RED BLOOD COUNT 3.84 M/uL (4.2-5.4); WHITE BLOOD COUNT 12.69 K/uL (4.8-10.8)
[2016-10-05] MEDS: SUCRALFATE 1 GM/10 ML UDC PO SCH ×4 (06:28→21:54)
[2016-10-05] MEDS ORDERED: SUCRALFATE 1 GM/10 ML UDC PO SCH (06:30)
[2016-10-05] MEDS: ALBUT/IPRATROP 3MG/0.5MG NEB 3 ML VIAL INH SCH ×4 (07:32→19:51)
[2016-10-05 07:35] LABS: BUN/CREATININE RATIO 16.1 (10-20); CALCIUM 9.5 mg/dl (8.5-10.1); CREATININE 1.4 mg/dl (0.60-1.20); POTASSIUM 4.2 mmol/L (3.5-5.1)
[2016-10-05] MEDS ORDERED: MEGESTROL ACETATE 40 MG TAB PO SCH (08:00)
[2016-10-05] MEDS ORDERED: MEGESTROL ACETATE SUSP 400 MG/10 ML UDC PO SCH (08:00)
[2016-10-05] MEDS ORDERED: FLUCONAZOLE 100 MG TAB PO SCH ×2 (08:00)
[2016-10-05] MEDS: NYSTATIN SUSP 500,000 U/5 ML UDC PO SCH ×4 (08:00→21:54)
[2016-10-05] MEDS ORDERED: NURSING VERBAL MED ORDER ONE (08:30)
[2016-10-05] MEDS: HEPARIN SOD 5000 UNIT/0.5 ML CARP SQ SCH ×3 (08:31→22:01)
[2016-10-05] MEDS: D5W AND NSS 1,000 ML IV SCH ×2 (08:31→17:05)
[2016-10-05] MEDS: DICLOFENAC SOD 1% GEL 100 GM TUBE EXT SCH ×4 (08:57→21:27)
[2016-10-05] MEDS: FLUTICASONE/SALMETEROL 250/50 (ADVAIR) 14 PUFF/1 INHALER INH SCH ×2 (08:58→21:26)
[2016-10-05] MEDS: TIOTROPIUM BROMIDE 5 PUFF/90 MCG INH INH SCH (08:59)
[2016-10-05] MEDS: CHECK CLONIDINE PATCH PLACEMENT SCH ×2 (08:59→16:26)
[2016-10-05] MEDS: FLUTICASONE PROPIONATE NA SPR 16 GM BTL NAE SCH ×2 (09:00→21:27)
[2016-10-05] MEDS: LIDODERM (LIDOCAINE) PATCH 5% TD SCH (09:00)
[2016-10-05] MEDS: CALCITONIN SALMON NA 200 IU/AC 3.7 ML BTL NAE SCH (09:01)
[2016-10-05] MEDS: CARVEDILOL 25 MG TAB PO SCH ×2 (11:52→20:00)
[2016-10-05] MEDS: DULOXETINE HCL 20 MG CAP PO SCH (11:52)
[2016-10-05] MEDS: BACLOFEN 10 MG TAB PO SCH ×2 (11:53→20:00)
[2016-10-05] MEDS: POTASSIUM CHLORIDE 10 MEQ TABCR PO SCH (11:53)
[2016-10-05] MEDS: MULTIVITAMIN TAB PO SCH (11:58)
[2016-10-05] MEDS: AMLODIPINE BESYLATE 5 MG TAB PO SCH (11:58)
[2016-10-05] MEDS: PANTOprazole SOD 40 MG TAB PO SCH ×2 (11:58→20:00)
[2016-10-05] MEDS: MEGESTROL ACETATE SUSP 400 MG/10 ML UDC PO SCH (11:58)
[2016-10-05] MEDS: ALLOPURINOL 100 MG TAB PO SCH ×2 (11:59→20:00)
[2016-10-05] MEDS: CHOLECALCIFEROL 1000 INTER.UNIT TAB PO SCH (11:59)
[2016-10-05] MEDS: SENNA 8.6 MG TAB PO SCH (11:59)
[2016-10-05] MEDS: PIPERACILL/TAZOBAC IV 3.375 GM in DEXTROSE 5% 100ML 100 ML IV SCH ×2 (13:13→21:24)
--- NOTE | 2016-10-05 18:35 | Progress Note ---
Subjective Date of Service: October 05, 2016. Subjective Pt evaluation today including: conversation w/ patient, physical exam, chart review, lab review, review of inpatient medication list Problem List Medical Problems: (1) Altered mental status Status: Acute (2) Bilateral pneumonia Status: Acute (3) CHF (congestive heart failure) Status: Acute (4) Chronic Kidney Disease, Stage Iii (Moderate) Status: Chronic (5) COPD exacerbation Status: Acute (6) COPD exacerbation Status: Acute (7) Crystal arthritis Status: Chronic (8) Duodenal bulb ulcer Status: Chronic (9) Failure of outpatient treatment Status: Acute (10) Failure of outpatient treatment Status: Acute (11) Gout Status: Chronic (12) Hyperlipidemia Nec/Nos Status: Chronic (13) Hypertension Status: Chronic (14) Hypoxemia Status: Acute (15) Hypoxia Status: Acute (16) Hypoxia Status: Acute (17) Hypoxia Status: Acute (18) Hypoxia Status: Acute (19) Lumbar compression fracture Status: Chronic (20) Opiate use Status: Chronic (21) Osteoporosis Status: Chronic (22) Peripheral edema Status: Acute (23) Pneumonia Status: Acute (24) Pneumonia Status: Acute (25) Pneumonia involving right lung Status: Acute (26) Respiratory acidosis Status: Acute (27) Respiratory distress Status: Acute (28) Right renal artery stenosis Status: Chronic (29) Secondary hyperparathyroidism Status: Chronic (30) UTI (urinary tract infection) Status: Acute Review of Systems ROS was un obtainable due to her change in mental status\but she was able to say my back hurts Medications Current Inpatient Medications Medications (Trade) Dose Ordered Sig/Estephania Route Start Time Stop Time Status Last Admin Dose Admin Nystatin 5 ml 5 ml QID PO 10/05/16 08:00 10/12/16 08:59 10/05/16 17:06 5 ML Fluconazole/ Sodium Chloride 100 mg/Prmx 50 ml @ 100 mls/hr DAILY IV 10/06/16 08:00 10/20/16 07:59 Piperacillin Sod/ Tazobactam Sod/ Dextrose (Zosyn Iv/D5 100ml) 115 ml @ 28.75 mls/ hr Q8H IV 10/05/16 12:00 10/15/16 11:59 10/05/16 13:13 28.75 MLS/HR Allopurinol (Zyloprim Tab) 100 mg BID PO 10/05/16 08:00 11/04/16 07:59 Amlodipine Besylate (Norvasc Tab) 10 mg DAILY PO 10/05/16 08:00 11/04/16 07:59 Baclofen (Lioresal Tab) 10 mg BID PO 10/05/16 08:00 11/04/16 07:59 Calcitonin [place] (Fortical Nasal [place]) 1 spray DAILY ERIC 10/05/16 08:00 11/04/16 07:59 10/05/16 09:01 1 SPRAY Carvedilol (Coreg Tab) 25 mg BID PO 10/05/16 08:00 11/04/16 07:59 Cholecalciferol (Vitamin D Tab) 2,000 inter.unit DAILY PO 10/05/16 08:00 11/04/16 07:59 Clonidine HCl (Sdcslwvk-Wny-6 0.2mg/24hr Patch) 2 patch [place]@1600 TD 10/09/16 16:00 11/08/16 15:59 Diclofenac Sodium (Voltaren 1% Top Gel) 1 appln QID EXT 10/05/16 08:00 11/04/16 07:59 10/05/16 17:06 1 APPLN Duloxetine HCl (Cymbalta Cap) 20 mg DAILY PO 10/05/16 08:00 11/04/16 07:59 Salmeterol Xinafoate/ Fluticasone (Advair Diskus 250/50 Inh) 1 puff BID INH 10/05/16 08:00 11/04/16 07:59 10/05/16 08:58 1 PUFF Fluticasone Propionate (Flonase Nasal [place]) 1 sprays BID ERIC 10/05/16 08:00 11/04/16 07:59 10/05/16 09:00 1 SPRAYS Hydralazine HCl (Apresoline Tab) 75 mg TID PO 10/05/16 08:00 11/04/16 07:59 Latanoprost (Xalatan Oph Soln) 1 drops HS OPR 10/05/16 22:00 11/04/16 21:59 Lidocaine (Lidoderm Patch 5%) 1 patch DAILY TD 10/05/16 08:00 11/04/16 07:59 10/05/16 09:00 1 PATCH Magnesium Hydroxide (Milk Of Magnesia Susp) 30 ml DAILY PRN PO 10/05/16 05:15 6/9/17 05:14 Multivitamins (Multivitamin Tab) 1 tab DAILY PO 10/05/16 08:00 11/04/16 07:59 Pantoprazole Sodium (Protonix Tab) 40 mg BID PO 10/05/16 08:00 11/04/16 07:59 Potassium Chloride (Klor-Con M10) 10 meq DAILY PO 10/05/16 08:00 11/04/16 07:59 Prednisone (PredniSONE TAB) 5 mg DAILY PO 10/05/16 08:00 11/04/16 07:59 Senna (Senokot Tab) 8.6 mg QAM PO 10/05/16 08:00 11/04/16 07:59 Tiotropium [place] (Spiriva Handihaler Inhaler) 30 puff DAILY INH 10/05/16 08:00 11/04/16 07:59 10/05/16 08:59 1 PUFF Miscellaneous (Remove Lidoderm Patch) 1 ea DAILY@21 N/A 10/05/16 21:00 11/04/16 20:59 Albuterol/ Ipratropium (Duoneb) 3 ml QIDR INH 10/05/16 08:00 11/04/16 07:59 Piperacillin Sod/ Tazobactam Sod (Consult) 1 ea UD PRN N/A 10/05/16 05:30 11/04/16 05:29 Miscellaneous (Remove Clonidine Patch) 1 ea Q7D@1559 N/A 10/09/16 15:59 11/08/16 15:58 Miscellaneous Information (Check Clonidine Patch Placement) 1 ea QS N/A 10/05/16 08:00 11/04/16 07:59 10/05/16 16:26 1 EA Heparin Sodium (Porcine) (Heparin Sq 5000 Unit/0.5ml) 5,000 unit Q8 SQ 10/05/16 06:00 11/04/16 05:59 10/05/16 14:39 5,000 UNIT Sucralfate (Carafate Susp) 1 gm ACHS PO 10/05/16 06:30 11/04/16 06:29 10/05/16 17:06 1 GM Megestrol Acetate 400 mg 400 mg QAM PO 10/05/16 08:00 11/04/16 07:59 Dextrose/Sodium Chloride (D5W And Nss) 1,000 ml @ 125 mls/hr Q8H IV 10/05/16 08:30 11/04/16 08:29 10/05/16 17:05 125 MLS/HR Objective Vital Signs Date Time Temp Pulse Resp B/P Pulse Ox O2 Delivery O2 Flow Rate FiO2 10/05/16 17:25 Nasal Cannula 4.0 10/05/16 14:36 37.6 79 18 127/80 97 Nasal Cannula 4.0 10/05/16 11:33 87 16 155/90 94 Nasal Cannula 4.0 10/05/16 09:14 Nasal Cannula 4.0 10/05/16 07:36 36.8 81 20 143/79 96 Nasal Cannula 5.0 10/05/16 07:33 85 16 96 Nasal Cannula 4.0 10/05/16 01:14 36.9 86 18 144/87 Nasal Cannula 4.0 10/05/16 00:00 36.9 86 18 144/87 94 4.0 10/04/16 23:48 83 17 142/77 95 Nasal Cannula 3.0 10/04/16 23:02 84 10/04/16 22:30 82 18 123/76 93 Nasal Cannula 3.0 10/04/16 21:30 80 18 127/70 96 Nasal Cannula 3.0 10/04/16 20:30 76 18 138/64 98 Nasal Cannula 3.0 10/04/16 19:05 36.6 103 18 169/88 94 Nasal Cannula 3.0 Physical Exam General Appearance: WD/WN, no apparent distress Eyes: normal inspection, EOMI ENT: normal ENT inspection, hearing grossly normal Neck: supple Respiratory/Chest: chest non-tender, lungs clear, normal breath sounds, no respiratory distress Cardiovascular: regular rate, rhythm, no edema, no gallop, no JVD Abdomen: normal bowel sounds, non tender, soft, no organomegaly Extremities: normal range of motion, non-tender, normal inspection, no pedal edema Neurologic/Psychiatric: + pertinent finding (slightly lethargic but easily arousable, did say that her back hurts but speaks very slow, moved all ext, followed simple commands) Skin: normal color Laboratory Results Last 24 Hours Test 10/04/16 20:06 10/04/16 20:30 10/05/16 06:19 10/05/16 08:15 White Blood Count 9.70 K/uL 12.69 K/uL Red Blood Count 3.99 M/uL 3.84 M/uL Hemoglobin 11.4 g/dL 10.9 g/dL Hematocrit 35.9 % 34.5 % Mean Corpuscular Volume 90.0 fL 89.8 fL Mean Corpuscular Hemoglobin 28.6 pg 28.4 pg Mean Corpuscular Hemoglobin Concent 31.8 g/dl 31.6 g/dl Platelet Count 247 K/uL 221 K/uL Mean Platelet Volume 11.2 fL 10.6 fL Neutrophils (%) (Auto) 74.9 % 71.6 % Lymphocytes (%) (Auto) 14.9 % 14.6 % Monocytes (%) (Auto) 9.2 % 12.5 % Eosinophils (%) (Auto) 0.1 % 0.5 % Basophils (%) (Auto) 0.1 % 0.1 % Neutrophils # (Auto) 7.26 K/uL 9.09 K/uL Lymphocytes # (Auto) 1.45 K/uL 1.85 K/uL Monocytes # (Auto) 0.89 K/uL 1.59 K/uL Eosinophils # (Auto) 0.01 K/uL 0.06 K/uL Basophils # (Auto) 0.01 K/uL 0.01 K/uL RDW Standard Deviation 57.4 fL 57.2 fL RDW Coefficient of Variation 17.4 % 17.4 % Immature Granulocyte % (Auto) 0.8 % 0.7 % Immature Granulocyte # (Auto) 0.08 K/uL 0.09 K/uL Prothrombin Time 11.1 SECONDS Prothromb Time International Ratio 1.0 Activated Partial Thromboplast Time 28.0 SECONDS Partial Thromboplastin Ratio 1.1 Sodium Level 145 mmol/L 145 mmol/L Potassium Level 4.3 mmol/L 4.2 mmol/L Chloride Level 107 mmol/L 109 mmol/L Carbon Dioxide Level 31 mmol/L 31 mmol/L Anion Gap 7.0 mmol/L 5.0 mmol/L Blood Urea Nitrogen 24 mg/dl 23 mg/dl Creatinine 1.50 mg/dl 1.40 mg/dl Est Creatinine Clear Calc Drug Dose 27.9 ml/min 29.3 ml/min Estimated GFR () 40.8 44.3 Estimated GFR (Non- 35.2 38.2 BUN/Creatinine Ratio 16.0 16.1 Random Glucose 64 mg/dl 46 mg/dl Calcium Level 9.7 mg/dl 9.5 mg/dl Total Bilirubin 0.5 mg/dl Direct Bilirubin < 0.1 mg/dl Aspartate Amino Transf (AST/SGOT) 23 U/L Alanine Aminotransferase (ALT/SGPT) 25 U/L Alkaline Phosphatase 150 U/L Troponin I 0.017 ng/ml 0.031 ng/ml Total Protein 6.0 gm/dl Albumin 2.8 gm/dl Urine Color YELLOW Urine Appearance CLEAR Urine pH 8.5 Urine Specific [place] 1.015 Urine Protein 2+ Urine Glucose (UA) NEG Urine Ketones TRACE Urine Occult Blood NEG Urine Nitrite NEG Urine Bilirubin NEG Urine Urobilinogen NEG Urine Leukocyte Esterase NEG Urine WBC (Auto) 1-5 /hpf Urine RBC (Auto) 0-4 /hpf Urine Hyaline Casts (Auto) 1-5 /lpf Urine Epithelial Cells (Auto) 5-10 /lpf Urine Bacteria (Auto) 2+ Bedside Glucose 77 mg/dl Test 10/05/16 11:08 Bedside Glucose 110 mg/dl Assessment and Plan 71 year old female from [facility] who presents to the ER for lethargy and altered mental state. She is on chronic opiates however did not respond to narcan given in the [facility]. Change in mental status, likely multi factorial possible accidental narcotics over dose hypoglycemia oral thrush SIRS without evidence of infection B/L basal consolidation likely atelectasis Hx of recent complicated UTI Plan: continue zosyn / vanco empirically until seen by Dr. Villarreal continue fluconazole consult ID ordered Procalcitonin / blood and Ucx continue home meds follow up labs in am she was not on any hypoglycemic agents but blood sugar was 46, nurses already gave her orange juice and food if she had another episode then will get insulin/proinsulin/sulfonyl urea and C- peptide levels as well as cortisol level for now i doubt it will happen again because I switched her IVF to D5 NSS check blood sugar prior to feeds heparin SQ for DVT prophylaxis
[2016-10-05] MEDS: LATANOPROST 0.005% OP SOLN 2.5 ML BTL OPR SCH (21:56)
[2016-10-06] VITALS: BP 149/77; PULSE 71; TEMP 36.9; O2SAT 94
[2016-10-06] MEDS: D5W AND NSS 1,000 ML IV SCH ×3 (00:35→17:44)
[2016-10-06] MEDS: CHECK CLONIDINE PATCH PLACEMENT SCH ×3 (00:43→16:00)
[2016-10-06] MEDS: PIPERACILL/TAZOBAC IV 3.375 GM in DEXTROSE 5% 100ML 100 ML IV SCH (04:15)
[2016-10-06] MEDS: SUCRALFATE 1 GM/10 ML UDC PO SCH ×4 (06:05→20:40)
[2016-10-06] MEDS: HEPARIN SOD 5000 UNIT/0.5 ML CARP SQ SCH ×3 (06:13→20:56)
[2016-10-06] MEDS: ALBUT/IPRATROP 3MG/0.5MG NEB 3 ML VIAL INH SCH ×3 (07:25→19:17)
[2016-10-06 07:51] VITALS: BP 146/87; PULSE 75; TEMP 37; O2SAT 95
[2016-10-06] MEDS: DICLOFENAC SOD 1% GEL 100 GM TUBE EXT SCH ×4 (08:00→20:32)
[2016-10-06] MEDS: ALLOPURINOL 100 MG TAB PO SCH ×2 (08:00→20:00)
[2016-10-06] MEDS: TIOTROPIUM BROMIDE 5 PUFF/90 MCG INH INH SCH (08:00)
[2016-10-06] MEDS: FLUTICASONE/SALMETEROL 250/50 (ADVAIR) 14 PUFF/1 INHALER INH SCH ×2 (08:00→20:33)
[2016-10-06] MEDS: POTASSIUM CHLORIDE 10 MEQ TABCR PO SCH (08:00)
[2016-10-06] MEDS: BACLOFEN 10 MG TAB PO SCH ×2 (08:00→20:00)
[2016-10-06] MEDS: DULOXETINE HCL 20 MG CAP PO SCH (08:00)
[2016-10-06] MEDS: PANTOprazole SOD 40 MG TAB PO SCH ×2 (08:00→20:00)
[2016-10-06] MEDS: CARVEDILOL 25 MG TAB PO SCH ×2 (08:00→20:00)
[2016-10-06] MEDS: MEGESTROL ACETATE SUSP 400 MG/10 ML UDC PO SCH (08:00)
[2016-10-06] MEDS: AMLODIPINE BESYLATE 5 MG TAB PO SCH (08:00)
[2016-10-06] MEDS: CHOLECALCIFEROL 1000 INTER.UNIT TAB PO SCH (08:00)
[2016-10-06] MEDS: MULTIVITAMIN TAB PO SCH (08:00)
[2016-10-06] MEDS: SENNA 8.6 MG TAB PO SCH (08:00)
[2016-10-06] MEDS: FLUTICASONE PROPIONATE NA SPR 16 GM BTL NAE SCH ×2 (08:01→20:33)
[2016-10-06] MEDS: CALCITONIN SALMON NA 200 IU/AC 3.7 ML BTL NAE SCH (08:01)
[2016-10-06] MEDS: LIDODERM (LIDOCAINE) PATCH 5% TD SCH (08:03)
[2016-10-06] MEDS: NYSTATIN SUSP 500,000 U/5 ML UDC PO SCH ×4 (08:04→20:40)
--- NOTE | 2016-10-06 08:05 | Clinical Documentation Query ---
KUN Bazzi : CLINICAL DOCUMENTATION QUERY Patient is a 71 year old female admitted for evaluation and treatment of lethargy and an altered mental status. Considered etiologies included possible accidental narcotic overdose, hypoglycemia, oral thrush, SIRS, recent complicated UTI, b/l basal consolidation thought most likely to be atelectasis. As appropriate, consider documentation as suggested below as an "altered mental status" given the above considerations is the hallmark symptom of encephalopathy. She has had a negative CT scan of the head, is receiving IV antibiotics, IVF, serial labs, cultures, and pending ID consultation. In your clinical opinion is this patient being managed for: (X ) Metabolic encephalopathy ( ) Other explanation of clinical findings (Please Explain) ( ) Unable to determine (Please Define) ( ) Need to Discuss ( ) Not Agree The medical record reflects the following clinical findings, treatment, and risk factors. Clinical Indicators: As above Treatment:She has had a negative CT scan of the head, is receiving IV antibiotics, IVF, serial labs, cultures, and pending ID consultation. Risk Factors:possible accidental narcotic overdose, hypoglycemia, oral thrush, SIRS, recent complicated UTI, b/l basal consolidation thought most likely to be atelectasis Please clarify and document your clinical opinion in the progress notes and discharge summary. Terms such as "probable", "suspected", "likely", "questionable", "possible", or "still to be ruled out" are acceptable. IF IN AGREEMENT, YOU MUST DOCUMENT ABOVE DIAGNOSTIC STATEMENT IN DAILY PROGRESS NOTES AND DISCHARGE SUMMARY. This document is not part of the patient's record. Thank You, Ad Benitez, LARA [phone]
[2016-10-06 08:37] LABS: BASO % 0.2 %; BASO ABS # 0.02 K/uL (0-0.2); COMPLETE YES; EOS % 0.9 %; IG% 0.8 %; LYMPH % 13.9 %; LYMPH ABS # 1.72 K/uL (1.2-3.4); MEAN CELL VOLUME 90.9 fL (80-100); MEAN CORPUSCULAR HEMOGLOBIN 28.1 pg (25-34); MEAN CORPUSCULAR HGB CONC 30.9 g/dl (32-36); MEAN PLATELET VOLUME 11.9 fL (7.4-10.4); MONO % 13.3 %; NEUT % 70.9 %; PLATELET COUNT 177 K/uL (130-400); RED BLOOD COUNT 3.74 M/uL (4.2-5.4); WHITE BLOOD COUNT 12.36 K/uL (4.8-10.8)
[2016-10-06 09:11] LABS: BUN/CREATININE RATIO 12.1 (10-20); CREATININE 1.6 mg/dl (0.60-1.20); MAGNESIUM 2.2 mg/dl (1.8-2.4); POTASSIUM 3.9 mmol/L (3.5-5.1)
[2016-10-06 09:20] LABS: ALB/GLOB RATIO 0.7 (0.9-2); PHOSPHORUS 2.6 mg/dl (2.5-4.9)
[2016-10-06] MEDS: FLUCONAZOLE / NSS 100 MG in PREMIXED NSS 50 ML IV SCH (10:09)
--- NOTE | 2016-10-06 11:25 | Medical Consult ---
Consultation Date of Consultation: October 06, 2016. Attending Physician: Marvel Barron D.O. Reason for Consultation: SIRS History of Present Illness The patient is a 71-year-old female presents the emergency department from [facility] for concerns of altered mental status. The patient has a complaining that her back hurts as well, but she states this is chronic in nature. The patient's review of systems is overall of questionable reliability due to lethargy. She denies sweats, chills, fever, abdominal pain, nausea, vomiting, diarrhea, or urinary symptoms. Since admission, the patient did have blood and urine cultures drawn which are currently showing no growth to date. Her white blood cell count today was 12.36. She was noted to have some mild oral thrush and was started on p.o. fluconazole. She was also started on IV Zosyn empirically for concerns of infection as the cause of altered mental status. The patient's urinalysis showed 2+ bacteria, but negative nitrite, negative leukocyte esterase, and only 1-5 white blood cells. The patient did also have a CT of her head which showed no acute intracranial findings. A chest x-ray showed stable cardiomegaly and persistent bibasilar opacities from her previous exam on 09/07/2016. Past Medical/Surgical History Medical Problems: (1) Altered mental status Status: Acute (2) Bilateral pneumonia Status: Acute (3) CHF (congestive heart failure) Status: Acute (4) Chronic Kidney Disease, Stage Iii (Moderate) Status: Chronic (5) COPD exacerbation Status: Acute (6) COPD exacerbation Status: Acute (7) Crystal arthritis Status: Chronic (8) Duodenal bulb ulcer Status: Chronic (9) Failure of outpatient treatment Status: Acute (10) Failure of outpatient treatment Status: Acute (11) Gout Status: Chronic (12) Hyperlipidemia Nec/Nos Status: Chronic (13) Hypertension Status: Chronic (14) Hypoxemia Status: Acute (15) Hypoxia Status: Acute (16) Hypoxia Status: Acute (17) Hypoxia Status: Acute (18) Hypoxia Status: Acute (19) Lumbar compression fracture Status: Chronic (20) Opiate use Status: Chronic (21) Osteoporosis Status: Chronic (22) Peripheral edema Status: Acute (23) Pneumonia Status: Acute (24) Pneumonia Status: Acute (25) Pneumonia involving right lung Status: Acute (26) Respiratory acidosis Status: Acute (27) Respiratory distress Status: Acute (28) Right renal artery stenosis Status: Chronic (29) Secondary hyperparathyroidism Status: Chronic (30) UTI (urinary tract infection) Status: Acute Family History Heart disease Noncontributory Social History Smoking Status: Never Smoker Drug Use: none Marital Status: Housing Status: lives with family Occupation Status: disabled Allergies Coded Allergies: Squash (Verified Allergy, Unknown, Zucchini, 08/29/16) Azithromycin (Verified Adverse Reaction, Unknown, nausea, 08/29/16) Levofloxacin (Verified Adverse Reaction, Unknown, nausea, 08/29/16) Home Medications Reported Home Medications Medications Dose Route/Sig Max Daily Dose Days Date Category Dose Instructions Zolpidem Tartrate 5 Mg Tab 5 Mg PO HS PRN 10/04/16 Reported Dilaudid (Hydromorphone Hcl) 4 Mg Tab 4 Mg PO Q4H 10/04/16 Reported Dilaudid (Hydromorphone Hcl) 2 Mg Tab 6 Mg PO Q4H PRN 10/04/16 Reported Voltaren 1% Top Gel (Diclofenac Sodium (Topical)) 1 % Gel 1 Gm TD QID 10/04/16 Reported APPLY TO BACK 4 TIMES DAILY FOR PAIN. Combivent Respimat (Ipratropium-Albuterol) 1 Aer Aer 1 Puffs INH QID 10/04/16 Reported Dolophine (Methadone HCl) 10 Mg Tab 30 Mg PO TID 10/04/16 Reported Advair Diskus 250/50 60 Dose (Fluticasone Prop/Salmeterol) 1 Ea Aerp 1 Puffs INH BID 10/04/16 Reported Senokot (Sennosides) 8.6 Mg Tab 1 Tab PO QAM 10/04/16 Reported Prednisone 5 Mg Tab 5 Mg PO DAILY 10/04/16 Reported Micro-K Ext Rel (Potassium Chloride) 10 Meq Capcr 10 Meq PO DAILY 10/04/16 Reported Megace (Megestrol Acetate) 40 Mg Tab 40 Mg PO QAM 10/04/16 Reported Lidoderm Patch 5% (Lidocaine) 1 Ea Tdsy 1 Patch TD DAILY 10/04/16 Reported Cymbalta (Duloxetine Hcl) 20 Mg Cap 20 Mg PO DAILY 10/04/16 Reported [id number] (Clonidine Hcl) 0.2 Mg/24 Hr Dis 2 Patch TD WK 10/04/16 Reported APPLY TWO PATCHES EVERY MONDAY AT 1600. HOLD FOR SBP < 100 OR HR < 50 BPM. . REMOVE PER SCHEDULE. Calcitonin-Pickering (Calcitonin [place]) 30 [place]/3.7 Ml Soln 1 [place] ERIC DAILY 10/04/16 Reported Milk of Magnesia (Magnesium Hydroxide) 30 Ml Susp 30 Ml PO UD PRN 08/29/16 Reported NEEDED FOR NO B/M FOR 9 SHIFTS Ativan (Lorazepam) 1 Mg Tab 0.5 Mg PO Q6H PRN 08/29/16 Reported NEEDED FOR ANXIETY, AGITATION, OR RESTLESSNESS NOT TO EXCEED 2GRAMS/24 HOURS Duoneb (Ipratropium-Albuterol) 3 Ml Nebu 1 Treatment INH Q4H PRN 08/29/16 Reported Insta-Glucose (Dextrose (Diabetic Use)) 77.4 % Gel 1 Appln PO 08/29/16 Reported GIVE EVERY 15 MINUTES NEEDED FOR HYPOGLYCEMIA BLOOD GLUCOSE LESS THAN 60 AND/OR SYMPTOMATIC HYPOGLYCEMIA ( MUST BE RESPONSIVE AND ABLE TO SWALLOW) Glucagon Emergency Kit (Glucagon) 1 Mg Kit 1 Appln IM 08/29/16 Reported EVERY 15 MINS NEEDED FOR HYPOGLYCEMIA BLOOD GLUCOSE < 50 AND OR SYMPTOMATIC/UNRESPONSIVE HYPOGLYCEMIA. MAY REPEAT IN 15 MINS IF NEEDED Fleet Enema Six Pack (Sodium Phosphates) 1 Lisa Lisa 1 Appl RE 08/29/16 Reported GIVE 4 HOURS AFTER DULCOLAX SUPP. IF NOT EFFECTIVE Dulcolax (Bisacodyl) 10 Mg Sup 1 Supp AL 08/29/16 Reported GIVE ON DAY 4 NO B/M Apresoline (Hydralazine Hcl) 50 Mg Tab 75 Mg PO TID 08/29/16 Reported HOLD IF SYSTOLIC BP IS < 100 AND OR HR IS <50 Ativan (Lorazepam) 0.5 Mg Tab 0.5 Mg PO TID 08/29/16 Reported NTE 2GM/24HRS Flonase Allergy Relief Ch (Fluticasone Propionate (Nasal)) 50 Mcg/Act Spr 1 [place] ERIC BID 08/29/16 Reported Coreg (Carvedilol) 25 Mg Tab 25 Mg PO BID 08/29/16 Reported HOLD FOR APICAL HR <50 Spiriva Handihaler (Tiotropium [place]) 30 Puff/540 Mcg Aerp 1 Cap INH DAILY 08/29/16 Reported Latanoprost 37 Drops/2.5 Ml Soln 1 Drop OPR HS 08/29/16 Reported Norvasc (Amlodipine Besylate) 5 Mg Tab 10 Mg PO DAILY 08/29/16 Reported HOLD FOR APICAL HR <50 D-1000 (Cholecalciferol) 1,000 Unit Tab 4,000 Units PO DAILY 08/29/16 Reported Kp Ferrous Sulfate (Ferrous Sulfate) 325 Mg Tab 325 Mg PO DAILY 03/14/16 Reported Drisdol (Ergocalciferol) 50,000 Unit Cap 50,000 Inter.unit PO WEEKLY 03/14/16 Reported MONDAY Epipen (Epinephrine) 0.3 Mg/0.3 Ml Inj 0.3 Mg IM UD PRN 10/28/15 Reported Protonix (Pantoprazole Sodium) 40 Mg Tab 40 Mg PO BID 10/28/15 Reported Miralax (Polyethylene Glycol 3350) 1 Pow Pow 17 Gm PO BID 10/02/15 Reported Zyloprim (Allopurinol) 100 Mg Tab 100 Mg PO BID 08/08/15 Reported Multivitamin (Multivitamins) Tab 1 Tab PO DAILY 08/05/15 Reported Mucinex Ext Rel (Guaifenesin) 600 Mg Tab 600 Mg PO BID 08/05/15 Reported Carafate (Sucralfate) 1 Gm/10 Ml Qi 1 Gm PO ACHS 08/05/15 Reported Tylenol (Acetaminophen) 325 Mg Tab 650 Mg PO Q6 PRN 06/11/15 Reported NEEDED FOR PAIN # 1- 10 OR TEMP > 101F. NTE 3GM APAP / 24HRS. Lioresal (Baclofen) 10 Mg Tab 10 Mg PO BID 05/02/15 Reported Current Inpatient Medications Current Inpatient Medications Medications (Trade) Dose Ordered Sig/Estephania Route Start Time Stop Time Status Last Admin Dose Admin Nystatin 5 ml 5 ml QID PO 10/05/16 08:00 10/12/16 08:59 10/06/16 08:04 5 ML Fluconazole/ Sodium Chloride 100 mg/Prmx 50 ml @ 100 mls/hr DAILY IV 10/06/16 08:00 10/20/16 07:59 10/06/16 10:09 100 MLS/HR Piperacillin Sod/ Tazobactam Sod/ Dextrose (Zosyn Iv/D5 100ml) 115 ml @ 28.75 mls/ hr Q8H IV 10/05/16 12:00 10/15/16 11:59 10/06/16 04:15 28.75 MLS/HR Allopurinol (Zyloprim Tab) 100 mg BID PO 10/05/16 08:00 11/04/16 07:59 Amlodipine Besylate (Norvasc Tab) 10 mg DAILY PO 10/05/16 08:00 11/04/16 07:59 Baclofen (Lioresal Tab) 10 mg BID PO 10/05/16 08:00 11/04/16 07:59 Calcitonin [place] (Fortical Nasal [place]) 1 spray DAILY ERIC 10/05/16 08:00 11/04/16 07:59 10/06/16 08:01 1 SPRAY Carvedilol (Coreg Tab) 25 mg BID PO 10/05/16 08:00 11/04/16 07:59 Cholecalciferol (Vitamin D Tab) 2,000 inter.unit DAILY PO 10/05/16 08:00 11/04/16 07:59 Clonidine HCl (Ppkydtve-Bsg-8 0.2mg/24hr Patch) 2 patch [place]@1600 TD 10/09/16 16:00 11/08/16 15:59 Diclofenac Sodium (Voltaren 1% Top Gel) 1 appln QID EXT 10/05/16 08:00 11/04/16 07:59 10/06/16 08:00 1 APPLN Duloxetine HCl (Cymbalta Cap) 20 mg DAILY PO 10/05/16 08:00 11/04/16 07:59 Salmeterol Xinafoate/ Fluticasone (Advair Diskus 250/50 Inh) 1 puff BID INH 10/05/16 08:00 11/04/16 07:59 10/06/16 08:00 1 PUFF Fluticasone Propionate (Flonase Nasal [place]) 1 sprays BID ERIC 10/05/16 08:00 11/04/16 07:59 10/06/16 08:01 1 SPRAYS Hydralazine HCl (Apresoline Tab) 75 mg TID PO 10/05/16 08:00 11/04/16 07:59 Latanoprost (Xalatan Oph Soln) 1 drops HS OPR 10/05/16 22:00 11/04/16 21:59 10/05/16 21:56 1 DROPS Lidocaine (Lidoderm Patch 5%) 1 patch DAILY TD 10/05/16 08:00 11/04/16 07:59 10/06/16 08:03 1 PATCH Magnesium Hydroxide (Milk Of Magnesia Susp) 30 ml DAILY PRN PO 10/05/16 05:15 11/04/16 05:14 Multivitamins (Multivitamin Tab) 1 tab DAILY PO 10/05/16 08:00 11/04/16 07:59 Pantoprazole Sodium (Protonix Tab) 40 mg BID PO 10/05/16 08:00 11/04/16 07:59 Potassium Chloride (Klor-Con M10) 10 meq DAILY PO 10/05/16 08:00 11/04/16 07:59 Prednisone (PredniSONE TAB) 5 mg DAILY PO 10/05/16 08:00 11/04/16 07:59 Senna (Senokot Tab) 8.6 mg QAM PO 10/05/16 08:00 11/04/16 07:59 Tiotropium [place] (Spiriva Handihaler Inhaler) 30 puff DAILY INH 10/05/16 08:00 11/04/16 07:59 10/06/16 08:00 1 PUFF Miscellaneous (Remove Lidoderm Patch) 1 ea DAILY@21 N/A 10/05/16 21:00 11/04/16 20:59 10/05/16 21:28 1 EA Albuterol/ Ipratropium (Duoneb) 3 ml QIDR INH 10/05/16 08:00 11/04/16 07:59 Piperacillin Sod/ Tazobactam Sod (Consult) 1 ea UD PRN N/A 10/05/16 05:30 11/04/16 05:29 Miscellaneous (Remove Clonidine Patch) 1 ea Q7D@1559 N/A 10/09/16 15:59 11/08/16 15:58 Miscellaneous Information (Check Clonidine Patch Placement) 1 ea QS N/A 10/05/16 08:00 11/04/16 07:59 10/06/16 08:01 1 EA Heparin Sodium (Porcine) (Heparin Sq 5000 Unit/0.5ml) 5,000 unit Q8 SQ 10/05/16 06:00 11/04/16 05:59 10/06/16 06:13 5,000 UNIT Sucralfate (Carafate Susp) 1 gm ACHS PO 10/05/16 06:30 11/04/16 06:29 10/06/16 06:05 1 GM Megestrol Acetate 400 mg 400 mg QAM PO 10/05/16 08:00 11/04/16 07:59 Dextrose/Sodium Chloride (D5W And Nss) 1,000 ml @ 125 mls/hr Q8H IV 10/05/16 08:30 11/04/16 08:29 10/06/16 08:03 125 MLS/HR Ondansetron HCl (Zofran Inj) 4 mg Q4H PRN IV 10/06/16 11:00 11/05/16 10:59 UNV Review of Systems Constitutional: No chills, No fever, No sweats Eyes: No worsening of vision ENT: No hearing loss Respiratory: No cough, No shortness of breath Cardiovascular: No chest pain Abdomen: No diarrhea, No nausea, No pain, No vomiting Musculoskeletal: + joint pain (low back pain- chronic) Genitourinary - Female: No dysuria, No urinary frequency Integumentary: No itch, No rash Physical Exam Date Time Temp Pulse Resp B/P Pulse Ox O2 Delivery O2 Flow Rate FiO2 10/06/16 10:42 Nasal Cannula 4.0 10/06/16 07:51 37.0 75 20 146/87 95 Nasal Cannula 4.0 10/06/16 00:00 Nasal Cannula 4.0 10/06/16 00:00 36.9 71 20 149/77 94 4.0 10/05/16 21:40 37.1 10/05/16 17:25 Nasal Cannula 4.0 10/05/16 14:36 37.6 79 18 127/80 97 Nasal Cannula 4.0 10/05/16 11:33 87 16 155/90 94 Nasal Cannula 4.0 General Appearance: WD/WN, no apparent distress Head: normocephalic, atraumatic Eyes: normal inspection, sclerae normal ENT: hearing grossly normal Neck: supple, trachea midline Respiratory/Chest: chest non-tender, lungs clear, normal breath sounds, no respiratory distress, no accessory muscle use Cardiovascular: regular rate, rhythm, no murmur Abdomen/GI: normal bowel sounds, non tender, soft Back: normal inspection Extremities/Musculoskelatal: + swelling (1+ pitting edema b/l LE) Neurologic/Psych: alert, normal mood/affect, oriented x 3 Skin: normal color, warm/dry, no rash Laboratory Results CHEST ONE VIEW PORTABLE CLINICAL HISTORY: Acute change in mental status COMPARISON STUDY: 09/07/2016 FINDINGS: The heart is enlarged. There are low lung volumes. There are bibasilar opacities (atelectasis favored over pneumonia. Clinical correlation necessary).. There is aortic tortuosity.[ IMPRESSION: 1. Stable cardiomegaly 2. Persistent bibasilar opacities, atelectatic versus inflammatory. Item Value Date Time MRSA DNA Surveillance Screen - Final Complete 10/05/16 0837 Nasal Specimen Negative for MRSA by DNA Probe Blood Culture - Preliminary Resulted 10/04/16 2347 Blood NO GROWTH TO DATE. Blood Culture - Preliminary Resulted 10/04/16 2340 Blood NO GROWTH TO DATE. Urine Culture - Preliminary Resulted 10/04/16 2030 Urine,Catheterized PIN-POINT GROWTH PRESENT, REINCUBATING. Last 24 Hours Test 10/05/16 16:44 10/05/16 19:21 10/05/16 20:49 10/06/16 07:44 Bedside Glucose 74 mg/dl 129 mg/dl Procalcitonin 0.08 ng/ml White Blood Count 12.36 K/uL Red Blood Count 3.74 M/uL Hemoglobin 10.5 g/dL Hematocrit 34.0 % Mean Corpuscular Volume 90.9 fL Mean Corpuscular Hemoglobin 28.1 pg Mean Corpuscular Hemoglobin Concent 30.9 g/dl Platelet Count 177 K/uL Mean Platelet Volume 11.9 fL Neutrophils (%) (Auto) 70.9 % Lymphocytes (%) (Auto) 13.9 % Monocytes (%) (Auto) 13.3 % Eosinophils (%) (Auto) 0.9 % Basophils (%) (Auto) 0.2 % Neutrophils # (Auto) 8.77 K/uL Lymphocytes # (Auto) 1.72 K/uL Monocytes # (Auto) 1.64 K/uL Eosinophils # (Auto) 0.11 K/uL Basophils # (Auto) 0.02 K/uL RDW Standard Deviation 57.2 fL RDW Coefficient of Variation 17.4 % Immature Granulocyte % (Auto) 0.8 % Immature Granulocyte # (Auto) 0.10 K/uL Sodium Level 148 mmol/L Potassium Level 3.9 mmol/L Chloride Level 113 mmol/L Carbon Dioxide Level 25 mmol/L Anion Gap 10.0 mmol/L Blood Urea Nitrogen 19 mg/dl Creatinine 1.60 mg/dl Est Creatinine Clear Calc Drug Dose 25.6 ml/min Estimated GFR () 37.7 Estimated GFR (Non- 32.5 BUN/Creatinine Ratio 12.1 Random Glucose 115 mg/dl Calcium Level 9.0 mg/dl Phosphorus Level 2.6 mg/dl Magnesium Level 2.2 mg/dl Total Bilirubin 0.2 mg/dl Aspartate Amino Transf (AST/SGOT) 32 U/L Alanine Aminotransferase (ALT/SGPT) 24 U/L Alkaline Phosphatase 123 U/L Total Protein 5.4 gm/dl Albumin 2.3 gm/dl Globulin 3.1 gm/dl Albumin/Globulin Ratio 0.7 Chemistry Specimen Hemolysis Test 10/06/16 07:46 Bedside Glucose 120 mg/dl Assessment & Plan Patient with acute confusion, back pain, and oral thrush. The patient does not appear to have any source of active infection other than her oral thrush, therefore will D/C broad spectrum abx therapy. Continue PO Fluconazole for thrush x 7 days. Otherwise, feel that this patient likely is OK for d/c on PO fluconazole when cleared by the medical team. Addendum (Tamara Smith PA-C) Patient is noted to have strep species x2 growing in urine culture. Therefore, will start p.o. Augmentin pending culture results. PROVIDER ADDENDUM: Patient examined and reviewed with Ms. Smith. Agree with above assessment.
[2016-10-06] MEDS: ONDANSETRON INJ 2 MG/ML 2 ML VIAL IV PRN ×2 (12:54→17:56)
--- NOTE | 2016-10-06 14:07 | Progress Note ---
Subjective Date of Service: October 06, 2016. Subjective Pt evaluation today including: conversation w/ patient, physical exam, chart review, lab review, review of studies, review of inpatient medication list Pt still dazed, oriented only to person and place Slow in speech States chronic pain No acute events overnight Problem List Medical Problems: (1) Altered mental status Status: Acute (2) Bilateral pneumonia Status: Acute (3) CHF (congestive heart failure) Status: Acute (4) Chronic Kidney Disease, Stage Iii (Moderate) Status: Chronic (5) COPD exacerbation Status: Acute (6) COPD exacerbation Status: Acute (7) Crystal arthritis Status: Chronic (8) Duodenal bulb ulcer Status: Chronic (9) Failure of outpatient treatment Status: Acute (10) Failure of outpatient treatment Status: Acute (11) Gout Status: Chronic (12) Hyperlipidemia Nec/Nos Status: Chronic (13) Hypertension Status: Chronic (14) Hypoxemia Status: Acute (15) Hypoxia Status: Acute (16) Hypoxia Status: Acute (17) Hypoxia Status: Acute (18) Hypoxia Status: Acute (19) Lumbar compression fracture Status: Chronic (20) Opiate use Status: Chronic (21) Osteoporosis Status: Chronic (22) Peripheral edema Status: Acute (23) Pneumonia Status: Acute (24) Pneumonia Status: Acute (25) Pneumonia involving right lung Status: Acute (26) Respiratory acidosis Status: Acute (27) Respiratory distress Status: Acute (28) Right renal artery stenosis Status: Chronic (29) Secondary hyperparathyroidism Status: Chronic (30) UTI (urinary tract infection) Status: Acute Review of Systems Constitutional: No chills, No fever Respiratory: No cough, No shortness of breath, No sputum, No wheezing Cardiac: No chest pain, No orthopnea Abdomen: No constipation, No diarrhea, No nausea, No pain, No vomiting Musculoskeletal: + joint pain, + muscle pain Female : No dysuria, No urinary frequency Objective Vital Signs Date Time Temp Pulse Resp B/P Pulse Ox O2 Delivery O2 Flow Rate FiO2 10/06/16 10:42 Nasal Cannula 4.0 10/06/16 07:51 37.0 75 20 146/87 95 Nasal Cannula 4.0 10/06/16 00:00 Nasal Cannula 4.0 10/06/16 00:00 36.9 71 20 149/77 94 4.0 10/05/16 21:40 37.1 10/05/16 17:25 Nasal Cannula 4.0 10/05/16 14:36 37.6 79 18 127/80 97 Nasal Cannula 4.0 Physical Exam General Appearance: WD/WN, no apparent distress Neck: supple, no adenopathy Respiratory/Chest: chest non-tender, + decreased breath sounds Cardiovascular: no edema, no gallop Abdomen: non tender, soft Neurologic/Psychiatric: alert, + disoriented Laboratory Results Last 24 Hours Test 10/05/16 16:44 10/05/16 19:21 10/05/16 20:49 10/06/16 07:44 Bedside Glucose 74 mg/dl 129 mg/dl Procalcitonin 0.08 ng/ml White Blood Count 12.36 K/uL Red Blood Count 3.74 M/uL Hemoglobin 10.5 g/dL Hematocrit 34.0 % Mean Corpuscular Volume 90.9 fL Mean Corpuscular Hemoglobin 28.1 pg Mean Corpuscular Hemoglobin Concent 30.9 g/dl Platelet Count 177 K/uL Mean Platelet Volume 11.9 fL Neutrophils (%) (Auto) 70.9 % Lymphocytes (%) (Auto) 13.9 % Monocytes (%) (Auto) 13.3 % Eosinophils (%) (Auto) 0.9 % Basophils (%) (Auto) 0.2 % Neutrophils # (Auto) 8.77 K/uL Lymphocytes # (Auto) 1.72 K/uL Monocytes # (Auto) 1.64 K/uL Eosinophils # (Auto) 0.11 K/uL Basophils # (Auto) 0.02 K/uL RDW Standard Deviation 57.2 fL RDW Coefficient of Variation 17.4 % Immature Granulocyte % (Auto) 0.8 % Immature Granulocyte # (Auto) 0.10 K/uL Sodium Level 148 mmol/L Potassium Level 3.9 mmol/L Chloride Level 113 mmol/L Carbon Dioxide Level 25 mmol/L Anion Gap 10.0 mmol/L Blood Urea Nitrogen 19 mg/dl Creatinine 1.60 mg/dl Est Creatinine Clear Calc Drug Dose 25.6 ml/min Estimated GFR () 37.7 Estimated GFR (Non- 32.5 BUN/Creatinine Ratio 12.1 Random Glucose 115 mg/dl Calcium Level 9.0 mg/dl Phosphorus Level 2.6 mg/dl Magnesium Level 2.2 mg/dl Total Bilirubin 0.2 mg/dl Aspartate Amino Transf (AST/SGOT) 32 U/L Alanine Aminotransferase (ALT/SGPT) 24 U/L Alkaline Phosphatase 123 U/L Total Protein 5.4 gm/dl Albumin 2.3 gm/dl Globulin 3.1 gm/dl Albumin/Globulin Ratio 0.7 Chemistry Specimen Hemolysis Test 10/06/16 07:46 10/06/16 11:31 Bedside Glucose 120 mg/dl 140 mg/dl Assessment and Plan 71 year old female from [facility] who presents to the ER for lethargy and altered mental state. She is on chronic opiates however did not respond to narcan given in the assisted. Change in mental status, likely multi factorial possible accidental narcotics over dose hypoglycemia oral thrush SIRS without evidence of infection B/L basal consolidation likely atelectasis Hx of recent complicated UTI Plan: metabolic encephalopathy likely from narcotic overuse continue zosyn / vanco continue fluconazole ordered Procalcitonin / blood and Ucx continue home meds Noted hypoglycemic episodes heparin SQ for DVT prophylaxis
[2016-10-06] MEDS: AMOXICILLIN/CLAVULANATE TAB 500 MG TAB PO SCH ×2 (14:31→19:00)
[2016-10-06 15:14] VITALS: BP 119/84; PULSE 65; TEMP 36.7; O2SAT 95
[2016-10-06] MEDS: LATANOPROST 0.005% OP SOLN 2.5 ML BTL OPR SCH (20:34)
[2016-10-06 22:42] VITALS: BP 159/81; PULSE 75; TEMP 37; O2SAT 94
[2016-10-07] MEDS: CHECK CLONIDINE PATCH PLACEMENT SCH ×3 (00:08→15:20)
[2016-10-07] MEDS: D5W AND NSS 1,000 ML IV SCH ×2 (01:36→08:11)
[2016-10-07] MEDS: ONDANSETRON INJ 2 MG/ML 2 ML VIAL IV PRN ×5 (01:37→21:50)
[2016-10-07] MEDS: HEPARIN SOD 5000 UNIT/0.5 ML CARP SQ SCH ×3 (06:17→21:57)
[2016-10-07] MEDS: SUCRALFATE 1 GM/10 ML UDC PO SCH ×4 (06:26→20:09)
[2016-10-07 06:46] VITALS: BP 164/82; PULSE 70; TEMP 37.1; O2SAT 92
[2016-10-07] MEDS: ALBUT/IPRATROP 3MG/0.5MG NEB 3 ML VIAL INH SCH ×3 (07:30→20:00)
[2016-10-07] MEDS: ALLOPURINOL 100 MG TAB PO SCH ×2 (08:00→20:00)
[2016-10-07] MEDS: DICLOFENAC SOD 1% GEL 100 GM TUBE EXT SCH ×4 (08:00→20:08)
[2016-10-07] MEDS: TIOTROPIUM BROMIDE 5 PUFF/90 MCG INH INH SCH (08:00)
[2016-10-07] MEDS: FLUTICASONE PROPIONATE NA SPR 16 GM BTL NAE SCH ×2 (08:00→20:08)
[2016-10-07] MEDS: CHOLECALCIFEROL 1000 INTER.UNIT TAB PO SCH (08:00)
[2016-10-07] MEDS: CALCITONIN SALMON NA 200 IU/AC 3.7 ML BTL NAE SCH (08:00)
[2016-10-07] MEDS: MULTIVITAMIN TAB PO SCH (08:00)
[2016-10-07] MEDS: AMLODIPINE BESYLATE 5 MG TAB PO SCH (08:00)
[2016-10-07] MEDS: POTASSIUM CHLORIDE 10 MEQ TABCR PO SCH (08:00)
[2016-10-07] MEDS: NYSTATIN SUSP 500,000 U/5 ML UDC PO SCH ×4 (08:00→20:06)
[2016-10-07] MEDS: SENNA 8.6 MG TAB PO SCH (08:00)
[2016-10-07] MEDS: PANTOprazole SOD 40 MG TAB PO SCH ×2 (08:00→20:00)
[2016-10-07] MEDS: FLUTICASONE/SALMETEROL 250/50 (ADVAIR) 14 PUFF/1 INHALER INH SCH ×2 (08:00→20:07)
[2016-10-07] MEDS: BACLOFEN 10 MG TAB PO SCH ×2 (08:00→20:00)
[2016-10-07] MEDS: CARVEDILOL 25 MG TAB PO SCH ×2 (08:00→20:00)
[2016-10-07] MEDS: AMOXICILLIN/CLAVULANATE TAB 500 MG TAB PO SCH ×2 (08:00→17:00)
[2016-10-07] MEDS: DULOXETINE HCL 20 MG CAP PO SCH (08:00)
[2016-10-07] MEDS: MEGESTROL ACETATE SUSP 400 MG/10 ML UDC PO SCH (08:00)
[2016-10-07] MEDS: LIDODERM (LIDOCAINE) PATCH 5% TD SCH (08:01)
[2016-10-07] MEDS: FLUCONAZOLE / NSS 100 MG in PREMIXED NSS 50 ML IV SCH (08:11)
[2016-10-07 10:07] LABS: BASO % 0.2 %; BASO ABS # 0.02 K/uL (0-0.2); COMPLETE YES; EOS % 1.5 %; HEMATOCRIT 34.8 % (37-47); IG% 0.7 %; LYMPH % 16.1 %; LYMPH ABS # 2.09 K/uL (1.2-3.4); MEAN CELL VOLUME 90.6 fL (80-100); MEAN CORPUSCULAR HEMOGLOBIN 27.9 pg (25-34); MEAN CORPUSCULAR HGB CONC 30.7 g/dl (32-36); MEAN PLATELET VOLUME 10.8 fL (7.4-10.4); MONO % 9.4 %; NEUT % 72.1 %; PLATELET COUNT 152 K/uL (130-400); RED BLOOD COUNT 3.84 M/uL (4.2-5.4); WHITE BLOOD COUNT 13.02 K/uL (4.8-10.8)
[2016-10-07 10:30] LABS: CALCIUM 8.3 mg/dl (8.5-10.1); CREATININE 1.3 mg/dl (0.60-1.20)
[2016-10-07 10:41] LABS: THYROID STIMULATING HORMONE 4.49 uIu/ml (0.300-4.500)
[2016-10-07] MEDS: MoRPHine SULFATE 2 MG/ML CARP IV PRN (12:09)
[2016-10-07] MEDS ORDERED: NURSING VERBAL MED ORDER ONE (14:30)
[2016-10-07] MEDS: HydrALAZINE HCL 20 MG/ML VIAL IV. ONE ×2 (14:45→20:27)
[2016-10-07] MEDS: D5W AND 1/2NSS 1,000 ML IV SCH ×2 (14:51→21:58)
--- NOTE | 2016-10-07 15:43 | Progress Note ---
Subjective Date of Service: October 07, 2016. Subjective Pt evaluation today including: conversation w/ patient, physical exam, chart review, lab review, review of studies, review of inpatient medication list Confusion resolving alert and oriented x 3 states she feels like she is withdrawing from pain meds Problem List Medical Problems: (1) Altered mental status Status: Acute (2) Anemia Status: Acute (3) Bilateral pneumonia Status: Acute (4) CHF (congestive heart failure) Status: Acute (5) Chronic Kidney Disease, Stage Iii (Moderate) Status: Chronic (6) COPD exacerbation Status: Acute (7) COPD exacerbation Status: Acute (8) Crystal arthritis Status: Chronic (9) Duodenal bulb ulcer Status: Chronic (10) Failure of outpatient treatment Status: Acute (11) Failure of outpatient treatment Status: Acute (12) Gout Status: Chronic (13) Hyperlipidemia Nec/Nos Status: Chronic (14) Hypertension Status: Chronic (15) Hypoxemia Status: Acute (16) Hypoxia Status: Acute (17) Hypoxia Status: Acute (18) Hypoxia Status: Acute (19) Hypoxia Status: Acute (20) Lumbar compression fracture Status: Chronic (21) Opiate use Status: Chronic (22) Osteoporosis Status: Chronic (23) Peripheral edema Status: Acute (24) Pneumonia Status: Acute (25) Pneumonia Status: Acute (26) Pneumonia involving right lung Status: Acute (27) Respiratory acidosis Status: Acute (28) Respiratory distress Status: Acute (29) Right renal artery stenosis Status: Chronic (30) Secondary hyperparathyroidism Status: Chronic (31) UTI (urinary tract infection) Status: Acute Review of Systems Constitutional: No chills, No fever Respiratory: No cough, No dyspnea on exertion, No shortness of breath, No sputum, No wheezing Cardiac: No chest pain, No orthopnea Abdomen: No diarrhea, No nausea, No pain, No vomiting Musculoskeletal: + joint pain, + muscle pain Female : No dysuria, No urinary frequency Objective Vital Signs Date Time Temp Pulse Resp B/P Pulse Ox O2 Delivery O2 Flow Rate FiO2 10/07/16 08:00 Nasal Cannula 4.0 10/07/16 06:46 37.1 70 16 164/82 92 Nasal Cannula 4.0 10/07/16 00:00 Nasal Cannula 4.0 10/06/16 22:42 37.0 75 16 159/81 94 4.0 10/06/16 18:38 Nasal Cannula 4.0 Physical Exam General Appearance: WD/WN, no apparent distress Neck: supple, no adenopathy Respiratory/Chest: lungs clear, normal breath sounds Cardiovascular: no edema, no gallop Abdomen: non tender, soft Neurologic/Psychiatric: alert, oriented x 3 Laboratory Results Last 24 Hours Test 10/06/16 16:25 10/06/16 20:25 10/07/16 07:37 10/07/16 09:55 Bedside Glucose 123 mg/dl 111 mg/dl 90 mg/dl White Blood Count 13.02 K/uL Red Blood Count 3.84 M/uL Hemoglobin 10.7 g/dL Hematocrit 34.8 % Mean Corpuscular Volume 90.6 fL Mean Corpuscular Hemoglobin 27.9 pg Mean Corpuscular Hemoglobin Concent 30.7 g/dl Platelet Count 152 K/uL Mean Platelet Volume 10.8 fL Neutrophils (%) (Auto) 72.1 % Lymphocytes (%) (Auto) 16.1 % Monocytes (%) (Auto) 9.4 % Eosinophils (%) (Auto) 1.5 % Basophils (%) (Auto) 0.2 % Neutrophils # (Auto) 9.39 K/uL Lymphocytes # (Auto) 2.09 K/uL Monocytes # (Auto) 1.23 K/uL Eosinophils # (Auto) 0.20 K/uL Basophils # (Auto) 0.02 K/uL RDW Standard Deviation 56.7 fL RDW Coefficient of Variation 17.1 % Immature Granulocyte % (Auto) 0.7 % Immature Granulocyte # (Auto) 0.09 K/uL Sodium Level 150 mmol/L Potassium Level 4.0 mmol/L Chloride Level 118 mmol/L Carbon Dioxide Level 28 mmol/L Anion Gap 4.0 mmol/L Blood Urea Nitrogen 14 mg/dl Creatinine 1.30 mg/dl Est Creatinine Clear Calc Drug Dose 31.6 ml/min Estimated GFR () 48.5 Estimated GFR (Non- 41.8 BUN/Creatinine Ratio 11.0 Random Glucose 76 mg/dl Calcium Level 8.3 mg/dl Ammonia 34.0 umol/L Vitamin B12 Level 369 pg/mL Thyroid Stimulating Hormone (TSH) 4.490 uIu/ml Test 10/07/16 11:28 Bedside Glucose 67 mg/dl Assessment and Plan 71 year old female from [facility] who presents to the ER for lethargy and altered mental state. She is on chronic opiates however did not respond to narcan given in the [place] [facility]. Change in mental status, likely multi factorial possible accidental narcotics over dose hypoglycemia oral thrush SIRS without evidence of infection B/L basal consolidation likely atelectasis Hx of recent complicated UTI Plan: metabolic encephalopathy likely from narcotic overuse restart on IV morphine at low dose refused augmentin, awaititng ID recs continue fluconazole ordered Procalcitonin / blood and Ucx enterococcus faecium continue home meds Noted hypoglycemic episodes heparin SQ for DVT prophylaxis
[2016-10-07 16:16] VITALS: BP 157/98; PULSE 80; TEMP 37.3; O2SAT 95
[2016-10-07] MEDS: PROMETHAZINE HCL INJ 12.5 MG in SODIUM CHLORIDE 0.9% 50ML 50 ML IV PRN ×2 (17:25→23:55)
[2016-10-07] MEDS: LATANOPROST 0.005% OP SOLN 2.5 ML BTL OPR SCH (20:07)
[2016-10-07 20:34] VITALS: BP 181/101; PULSE 86
[2016-10-07 23:38] VITALS: BP 171/93; PULSE 80; TEMP 36.6; O2SAT 93
[2016-10-08] VITALS (8 sets, daily range): BP systolic 148–174; BP diastolic 72–95; PULSE 80–89; TEMP 37.1; O2SAT 93–95
[2016-10-08] MEDS: CHECK CLONIDINE PATCH PLACEMENT SCH ×4 (00:02→23:27)
[2016-10-08] MEDS ORDERED: NURSING VERBAL MED ORDER ONE ×2 (01:30→21:00)
[2016-10-08] MEDS ORDERED: HydrALAZINE HCL 20 MG/ML VIAL ONE (01:39)
[2016-10-08] MEDS: ONDANSETRON INJ 2 MG/ML 2 ML VIAL IV PRN ×2 (01:50→14:02)
[2016-10-08] MEDS ORDERED: PANTOprazole INJ 40 MG in SYRINGE 0 ML IV ONE (02:00)
[2016-10-08] MEDS: HydrALAZINE HCL 20 MG/ML VIAL IV. PRN ×3 (06:26→21:37)
[2016-10-08] MEDS: SUCRALFATE 1 GM/10 ML UDC PO SCH ×4 (06:28→21:23)
[2016-10-08] MEDS: D5W AND 1/2NSS 1,000 ML IV SCH ×3 (06:42→21:59)
[2016-10-08] MEDS: PROMETHAZINE HCL INJ 12.5 MG in SODIUM CHLORIDE 0.9% 50ML 50 ML IV PRN ×3 (06:42→21:14)
[2016-10-08] MEDS: HEPARIN SOD 5000 UNIT/0.5 ML CARP SQ SCH ×3 (06:47→21:37)
[2016-10-08] MEDS: ALBUT/IPRATROP 3MG/0.5MG NEB 3 ML VIAL INH SCH ×4 (07:47→19:30)
[2016-10-08] MEDS: FLUCONAZOLE / NSS 100 MG in PREMIXED NSS 50 ML IV SCH (07:53)
[2016-10-08] MEDS: DICLOFENAC SOD 1% GEL 100 GM TUBE EXT SCH ×4 (07:53→20:00)
[2016-10-08] MEDS: FLUTICASONE/SALMETEROL 250/50 (ADVAIR) 14 PUFF/1 INHALER INH SCH ×2 (07:54→20:00)
[2016-10-08] MEDS: CALCITONIN SALMON NA 200 IU/AC 3.7 ML BTL NAE SCH (07:58)
[2016-10-08] MEDS: FLUTICASONE PROPIONATE NA SPR 16 GM BTL NAE SCH ×2 (07:58→21:17)
[2016-10-08] MEDS: CARVEDILOL 25 MG TAB PO SCH ×2 (08:00→19:39)
[2016-10-08] MEDS: CHOLECALCIFEROL 1000 INTER.UNIT TAB PO SCH (08:00)
[2016-10-08] MEDS: MULTIVITAMIN TAB PO SCH (08:00)
[2016-10-08] MEDS: POTASSIUM CHLORIDE 10 MEQ TABCR PO SCH (08:00)
[2016-10-08] MEDS: PANTOprazole SOD 40 MG TAB PO SCH ×2 (08:00→19:40)
[2016-10-08] MEDS: AMLODIPINE BESYLATE 5 MG TAB PO SCH (08:00)
[2016-10-08] MEDS: DULOXETINE HCL 20 MG CAP PO SCH (08:00)
[2016-10-08] MEDS: SENNA 8.6 MG TAB PO SCH (08:00)
[2016-10-08] MEDS: BACLOFEN 10 MG TAB PO SCH ×2 (08:00→19:39)
[2016-10-08] MEDS: MEGESTROL ACETATE SUSP 400 MG/10 ML UDC PO SCH (08:00)
[2016-10-08] MEDS: ALLOPURINOL 100 MG TAB PO SCH ×2 (08:00→19:40)
[2016-10-08] MEDS: AMOXICILLIN/CLAVULANATE TAB 500 MG TAB PO SCH (08:00)
[2016-10-08] MEDS: LIDODERM (LIDOCAINE) PATCH 5% TD SCH (08:02)
[2016-10-08] MEDS: NYSTATIN SUSP 500,000 U/5 ML UDC PO SCH ×4 (08:04→21:17)
--- NOTE | 2016-10-08 09:45 | Psychiatric Progress Notes ---
Psychiatric Progress Note Date of Service October 08, 2016. Notes attempted to see patient to complete psychiatric consultation. Patient refused some meds apparently this am. She is very sedated and cannot be engaged to provide meaningful history at this time, I have asked liaison to attempt to reach son for supplemental history. I anticipate recs/impression will remain the same regardless--patient over 65 and shouldn't be prescribed benzodiazepines in combo with pain meds and methadone. Methadone can increase doses of other psychoactive medications such as Cymbalta. Med refusals likely to ongoing confusion. It doesn't appear that she has received any benzos since admission so elevated BP and ongoing confusion could certainly represent benzodiazepine withdrawal. If BP remains refractory to interventions primary team should consider low dose benzo taper.
[2016-10-08] MEDS ORDERED: PANTOprazole INJ 40 MG in SYRINGE 0 ML IV SCH (11:00)
[2016-10-08] MEDS: MoRPHine SULFATE 2 MG/ML CARP IV PRN (11:09)
--- NOTE | 2016-10-08 14:50 | Progress Note ---
Subjective Date of Service: October 08, 2016. Subjective Pt evaluation today including: conversation w/ patient, physical exam, chart review, lab review, review of studies, review of inpatient medication list States pain is worsening and not affected by current dose of morphine Alert and oriented x 3 No signs of withdrawal at this time Problem List Medical Problems: (1) Altered mental status Status: Acute (2) Anemia Status: Acute (3) Bilateral pneumonia Status: Acute (4) CHF (congestive heart failure) Status: Acute (5) Chronic Kidney Disease, Stage Iii (Moderate) Status: Chronic (6) COPD exacerbation Status: Acute (7) COPD exacerbation Status: Acute (8) Crystal arthritis Status: Chronic (9) Duodenal bulb ulcer Status: Chronic (10) Failure of outpatient treatment Status: Acute (11) Failure of outpatient treatment Status: Acute (12) Gout Status: Chronic (13) Hyperlipidemia Nec/Nos Status: Chronic (14) Hypertension Status: Chronic (15) Hypoxemia Status: Acute (16) Hypoxia Status: Acute (17) Hypoxia Status: Acute (18) Hypoxia Status: Acute (19) Hypoxia Status: Acute (20) Lumbar compression fracture Status: Chronic (21) Opiate use Status: Chronic (22) Osteoporosis Status: Chronic (23) Peripheral edema Status: Acute (24) Pneumonia Status: Acute (25) Pneumonia Status: Acute (26) Pneumonia involving right lung Status: Acute (27) Respiratory acidosis Status: Acute (28) Respiratory distress Status: Acute (29) Right renal artery stenosis Status: Chronic (30) Secondary hyperparathyroidism Status: Chronic (31) UTI (urinary tract infection) Status: Acute Review of Systems Constitutional: No chills, No fever Respiratory: No cough, No dyspnea on exertion, No shortness of breath, No sputum, No wheezing Cardiac: No chest pain, No orthopnea Abdomen: + nausea, No constipation, No diarrhea, No pain, No vomiting Musculoskeletal: + joint pain, + muscle pain Female : No dysuria, No urinary frequency Objective Vital Signs Date Time Temp Pulse Resp B/P Pulse Ox O2 Delivery O2 Flow Rate FiO2 10/08/16 14:09 82 165/92 10/08/16 11:30 160/72 10/08/16 08:00 Nasal Cannula 4.0 10/08/16 07:03 37.1 89 18 174/93 93 Nasal Cannula 4.0 10/08/16 06:00 89 174/93 10/08/16 01:19 80 173/95 10/08/16 00:35 Nasal Cannula 4.0 10/07/16 23:38 36.6 80 18 171/93 93 Nasal Cannula 4.0 10/07/16 20:34 86 18 181/101 10/07/16 16:23 Nasal Cannula 4.0 10/07/16 16:16 37.3 80 18 157/98 95 Nasal Cannula 4.0 Physical Exam General Appearance: WD/WN, + mild distress Neck: supple, no adenopathy Respiratory/Chest: lungs clear, normal breath sounds Cardiovascular: no edema, no gallop Abdomen: non tender, soft Neurologic/Psychiatric: alert, normal mood/affect Laboratory Results Last 24 Hours Test 10/07/16 15:15 10/07/16 17:10 10/07/16 20:25 10/08/16 07:36 Bedside Glucose 70 mg/dl 90 mg/dl 95 mg/dl 83 mg/dl Assessment and Plan 71 year old female from [facility] who presents to the ER for lethargy and altered mental state. She is on chronic opiates however did not respond to narcan given in the [facility]. Change in mental status, likely multi factorial possible accidental narcotics over dose hypoglycemia oral thrush SIRS without evidence of infection B/L basal consolidation likely atelectasis VRE UTI Plan: metabolic encephalopathy likely from narcotic overuse restart on IV morphine at low dose and slowly titrate refused augmentin, awaiting ID recs, start on zyvox for VRE continue fluconazole ordered Procalcitonin / blood and Ucx enterococcus faecium continue home meds Noted hypoglycemic episodes heparin SQ for DVT prophylaxis
[2016-10-08] MEDS: LINEZOLID / D5W 600 MG in PREMIXED IN D5W 300 ML IV SCH (17:43)
[2016-10-08] MEDS: LATANOPROST 0.005% OP SOLN 2.5 ML BTL OPR SCH (21:16)
[2016-10-08] MEDS: PANTOprazole INJ 40 MG in SYRINGE 0 ML IV SCH (21:32)
[2016-10-09] VITALS (38 sets, daily range): BP systolic 95–176; BP diastolic 63–103; PULSE 65–116; TEMP 36.7–37.5; O2SAT 92–99
[2016-10-09] MEDS: SUCRALFATE 1 GM/10 ML UDC PO SCH ×4 (05:30→21:00)
[2016-10-09] MEDS: HEPARIN SOD 5000 UNIT/0.5 ML CARP SQ SCH ×3 (05:57→22:00)
[2016-10-09] MEDS: D5W AND 1/2NSS 1,000 ML IV SCH ×2 (05:57→17:22)
[2016-10-09] MEDS: LINEZOLID / D5W 600 MG in PREMIXED IN D5W 300 ML IV SCH ×2 (06:00→17:22)
[2016-10-09] MEDS: ONDANSETRON INJ 2 MG/ML 2 ML VIAL IV PRN ×2 (06:02→13:31)
[2016-10-09] MEDS: HydrALAZINE HCL 20 MG/ML VIAL IV. PRN ×2 (06:14→17:16)
[2016-10-09] MEDS: PROMETHAZINE HCL INJ 12.5 MG in SODIUM CHLORIDE 0.9% 50ML 50 ML IV PRN ×2 (07:16→17:16)
[2016-10-09] MEDS: ALBUT/IPRATROP 3MG/0.5MG NEB 3 ML VIAL INH SCH ×5 (07:25→19:20)
[2016-10-09] MEDS: DICLOFENAC SOD 1% GEL 100 GM TUBE EXT SCH ×4 (07:39→21:00)
[2016-10-09] MEDS: FLUTICASONE/SALMETEROL 250/50 (ADVAIR) 14 PUFF/1 INHALER INH SCH ×2 (07:39→21:00)
[2016-10-09] MEDS: TIOTROPIUM BROMIDE 5 PUFF/90 MCG INH INH SCH (07:41)
[2016-10-09] MEDS: CHECK CLONIDINE PATCH PLACEMENT SCH ×3 (07:42→21:41)
[2016-10-09] MEDS: CALCITONIN SALMON NA 200 IU/AC 3.7 ML BTL NAE SCH (07:43)
[2016-10-09] MEDS: FLUTICASONE PROPIONATE NA SPR 16 GM BTL NAE SCH ×2 (07:43→21:00)
[2016-10-09 08:44] LABS: BASO % 0.2 %; BASO ABS # 0.03 K/uL (0-0.2); COMPLETE YES; EOS % 0.8 %; HEMATOCRIT 35.3 % (37-47); IG% 0.7 %; LYMPH % 10.6 %; LYMPH ABS # 1.77 K/uL (1.2-3.4); MEAN CELL VOLUME 86.7 fL (80-100); MEAN CORPUSCULAR HGB CONC 32.3 g/dl (32-36); MEAN PLATELET VOLUME 9.9 fL (7.4-10.4); MONO % 9.8 %; NEUT % 77.9 %; PLATELET COUNT 124 K/uL (130-400); RED BLOOD COUNT 4.07 M/uL (4.2-5.4)
[2016-10-09] MEDS: AMLODIPINE BESYLATE 5 MG TAB PO SCH (09:00)
[2016-10-09] MEDS: BACLOFEN 10 MG TAB PO SCH ×2 (09:00→21:00)
[2016-10-09] MEDS: CARVEDILOL 25 MG TAB PO SCH ×2 (09:00→21:00)
[2016-10-09] MEDS: ALLOPURINOL 100 MG TAB PO SCH ×2 (09:00→21:00)
[2016-10-09] MEDS: LIDODERM (LIDOCAINE) PATCH 5% TD SCH (09:00)
[2016-10-09] MEDS: MULTIVITAMIN TAB PO SCH (09:12)
[2016-10-09] MEDS: NYSTATIN SUSP 500,000 U/5 ML UDC PO SCH ×4 (09:12→21:00)
[2016-10-09] MEDS: MEGESTROL ACETATE SUSP 400 MG/10 ML UDC PO SCH (09:12)
[2016-10-09] MEDS: POTASSIUM CHLORIDE 10 MEQ TABCR PO SCH (09:12)
[2016-10-09] MEDS: SENNA 8.6 MG TAB PO SCH (09:12)
[2016-10-09] MEDS: CHOLECALCIFEROL 1000 INTER.UNIT TAB PO SCH (09:13)
[2016-10-09 09:36] LABS: BUN/CREATININE RATIO 9.2 (10-20); CALCIUM 8.2 mg/dl (8.5-10.1); CREATININE 1.1 mg/dl (0.60-1.20); POTASSIUM 3.7 mmol/L (3.5-5.1)
[2016-10-09] MEDS: PANTOprazole INJ 40 MG in SYRINGE 0 ML IV SCH ×2 (09:44→21:00)
[2016-10-09] MEDS: FLUCONAZOLE / NSS 100 MG in PREMIXED NSS 50 ML IV SCH (09:44)
[2016-10-09] MEDS ORDERED: NURSING VERBAL MED ORDER ONE (09:45)
[2016-10-09] MEDS ORDERED: LORAZEPAM INJ 1 MG in SYRINGE 0.5 ML IV ONE (10:30)
--- NOTE | 2016-10-09 15:05 | Progress Note ---
Subjective Date of Service: October 09, 2016. Subjective Pt evaluation today including: conversation w/ patient, physical exam, chart review, lab review, review of studies, review of inpatient medication list Reported worsening nausea/vomiting Problem List Medical Problems: (1) Altered mental status Status: Acute (2) Anemia Status: Acute (3) Bilateral pneumonia Status: Acute (4) CHF (congestive heart failure) Status: Acute (5) Chronic Kidney Disease, Stage Iii (Moderate) Status: Chronic (6) COPD exacerbation Status: Acute (7) COPD exacerbation Status: Acute (8) Crystal arthritis Status: Chronic (9) Duodenal bulb ulcer Status: Chronic (10) Failure of outpatient treatment Status: Acute (11) Failure of outpatient treatment Status: Acute (12) Gout Status: Chronic (13) Hyperlipidemia Nec/Nos Status: Chronic (14) Hypertension Status: Chronic (15) Hypoxemia Status: Acute (16) Hypoxia Status: Acute (17) Hypoxia Status: Acute (18) Hypoxia Status: Acute (19) Hypoxia Status: Acute (20) Lumbar compression fracture Status: Chronic (21) Opiate use Status: Chronic (22) Osteoporosis Status: Chronic (23) Peripheral edema Status: Acute (24) Pneumonia Status: Acute (25) Pneumonia Status: Acute (26) Pneumonia involving right lung Status: Acute (27) Respiratory acidosis Status: Acute (28) Respiratory distress Status: Acute (29) Right renal artery stenosis Status: Chronic (30) Secondary hyperparathyroidism Status: Chronic (31) UTI (urinary tract infection) Status: Acute Review of Systems Constitutional: No chills, No fever Respiratory: No cough, No shortness of breath, No sputum, No wheezing Cardiac: No chest pain Abdomen: + nausea, + vomiting, No diarrhea, No pain Musculoskeletal: No joint pain, No muscle pain Female : No dysuria, No urinary frequency Objective Vital Signs Date Time Temp Pulse Resp B/P Pulse Ox O2 Delivery O2 Flow Rate FiO2 10/09/16 08:00 Nasal Cannula 4.0 10/09/16 07:34 37.1 78 20 151/79 94 Nasal Cannula 5.0 10/09/16 06:00 72 164/73 94 Nasal Cannula 5.0 10/09/16 00:58 37.5 75 22 160/90 92 Nasal Cannula 4.0 10/09/16 00:00 Nasal Cannula 4.0 10/08/16 22:00 Nasal Cannula 4.0 10/08/16 21:37 82 160/92 10/08/16 19:14 80 163/94 10/08/16 16:18 37.1 80 18 148/84 95 Nasal Cannula 4.0 10/08/16 16:00 Nasal Cannula 4.0 Physical Exam General Appearance: WD/WN, no apparent distress Neck: supple, no adenopathy Respiratory/Chest: lungs clear, normal breath sounds Cardiovascular: no edema, no gallop Abdomen: non tender, soft Neurologic/Psychiatric: alert, normal mood/affect, oriented x 3 Laboratory Results Last 24 Hours Test 10/08/16 16:54 10/08/16 19:56 10/09/16 08:12 10/09/16 08:35 Bedside Glucose 146 mg/dl 113 mg/dl 88 mg/dl White Blood Count 16.70 K/uL Red Blood Count 4.07 M/uL Hemoglobin 11.4 g/dL Hematocrit 35.3 % Mean Corpuscular Volume 86.7 fL Mean Corpuscular Hemoglobin 28.0 pg Mean Corpuscular Hemoglobin Concent 32.3 g/dl Platelet Count 124 K/uL Mean Platelet Volume 9.9 fL Neutrophils (%) (Auto) 77.9 % Lymphocytes (%) (Auto) 10.6 % Monocytes (%) (Auto) 9.8 % Eosinophils (%) (Auto) 0.8 % Basophils (%) (Auto) 0.2 % Neutrophils # (Auto) 13.02 K/uL Lymphocytes # (Auto) 1.77 K/uL Monocytes # (Auto) 1.63 K/uL Eosinophils # (Auto) 0.14 K/uL Basophils # (Auto) 0.03 K/uL RDW Standard Deviation 52.6 fL RDW Coefficient of Variation 16.5 % Immature Granulocyte % (Auto) 0.7 % Immature Granulocyte # (Auto) 0.11 K/uL Sodium Level 138 mmol/L Potassium Level 3.7 mmol/L Chloride Level 107 mmol/L Carbon Dioxide Level 23 mmol/L Anion Gap 8.0 mmol/L Blood Urea Nitrogen 10 mg/dl Creatinine 1.10 mg/dl Est Creatinine Clear Calc Drug Dose 37.3 ml/min Estimated GFR () 59.3 Estimated GFR (Non- 51.2 BUN/Creatinine Ratio 9.2 Random Glucose 90 mg/dl Calcium Level 8.2 mg/dl Assessment and Plan 71 year old female from [facility] who presents to the ER for lethargy and altered mental state. She is on chronic opiates however did not respond to narcan given in the longterm. Change in mental status, likely multi factorial possible accidental narcotics over dose hypoglycemia oral thrush SIRS without evidence of infection B/L basal consolidation likely atelectasis VRE UTI Plan: metabolic encephalopathy likely from narcotic overuse restart on IV morphine at low dose and slowly titrate refused augmentin, awaiting ID recs, start on zyvox for VRE continue fluconazole ordered Procalcitonin / blood and Ucx enterococcus faecium continue home meds Noted hypoglycemic episodes heparin SQ for DVT prophylaxis
--- NOTE | 2016-10-09 15:07 | Psych Management Progress Note ---
Psychiatry Miscellaneous Date of Service: October 09, 2016. Patient remains sedated today and meaningful history difficult to obtain. Concur with Dr. Oscar's recommendations from psychiatric consultation note yesterday 10/08/16.
[2016-10-09] MEDS ORDERED: CLONIDINE HCL 0.2 MG/24 HR TRANSDERM SYS TD SCH (16:00)
[2016-10-09] MEDS ORDERED: FUROSEMIDE 40 MG/4 ML VIAL IV STA (19:32)
[2016-10-09] MEDS ORDERED: FUROSEMIDE 40 MG/4 ML VIAL ONE (19:36)
[2016-10-09] MEDS ORDERED: RAPID SEQUENCE INDUCTION BAG ONE (19:44)
[2016-10-09] MEDS ORDERED: FUROSEMIDE INJ 40 MG in SYRINGE 0 ML IV SCH (19:45)
[2016-10-09] MEDS ORDERED: FLUMAZENIL 0.1 MG/1 ML 10 ML VIAL - CCU EMERGENCY DRUG IV ONE (19:45)
[2016-10-09] MEDS ORDERED: METHYLPREDNISOLONE IV 125 MG in SYRINGE 0 ML IV SCH (20:00)
[2016-10-09 20:07] LABS: IPAP 12; ISTAT ALLEN TEST Pass; ISTAT ARTERIAL BLOOD GAS HCO3 20 meq/L (19-24); ISTAT ARTERIAL BLOOD GAS PCO2 46 mmHg (35-46); ISTAT ARTERIAL BLOOD GAS PO2 189 mmHg (80-95); ISTAT ARTERIAL BLOOD GAS pH 7.26 (7.35-7.45); ISTAT CARBON DIOXIDE 22 mEq/l (24-31); ISTAT DELIVERY SYSTEM BIPAP; ISTAT FIO2 100 %; ISTAT RATE 12; ISTAT SITE L Radial
[2016-10-09 20:14] LABS: HEMATOCRIT 37.2 % (37-47); MEAN CELL VOLUME 86.5 fL (80-100); MEAN CORPUSCULAR HEMOGLOBIN 28.1 pg (25-34); MEAN PLATELET VOLUME 10.3 fL (7.4-10.4); PLATELET COUNT 156 K/uL (130-400); WHITE BLOOD COUNT 18.69 K/uL (4.8-10.8)
--- NOTE | 2016-10-09 20:18 | DIAGNOSTIC IMAGING REPORT ---
CHEST ONE VIEW PORTABLE HISTORY: Lethargic. COMPARISON: Chest 10/04/2016. FINDINGS: There are low lung volumes. No pneumothorax. Old, healed left-sided rib fractures. The heart remains mildly enlarged. There is right upper lobe interstitial thickening which has progressed. This may represent developing congestive change. Trace bilateral pleural effusion. Patchy bibasilar densities are again noted. There are old, healed right-sided rib fractures. Multiple vertebroplasty. IMPRESSION: 1. Patchy bibasilar densities which may represent atelectasis or pneumonia. This is not significant changed. 2. Suspect trace bilateral pleural effusions. 3. Progressive interstitial thickening within the right upper lobe which may represent developing asymmetric congestive change. Electronically signed by: Stoney Bryson M.D. 10/09/2016 8:16 PM Dictated Date/Time: 10/09/2016 8:14 PM
[2016-10-09] MEDS ORDERED: MIDAZOLAM 125MG/250ML D5W 250 ML IV PRN (20:33)
[2016-10-09 20:43] LABS: MEAN CORPUSCULAR HGB CONC 32.5 g/dl (32-36)
[2016-10-09 20:44] LABS: BASO % 0.2 %; BASO ABS # 0.03 K/uL (0-0.2); COMPLETE YES; EOS % 0.9 %; IG% 0.9 %; LYMPH % 9.7 %; LYMPH ABS # 1.81 K/uL (1.2-3.4); MONO % 9.4 %; NEUT % 78.9 %
[2016-10-09] MEDS ORDERED: FENTANYL 1250MCG/250ML NSS 250 ML IV SCH (20:45)
[2016-10-09] MEDS ORDERED: MIDAZOLAM 125MG/250ML D5W IV ONE (20:48)
[2016-10-09] MEDS: LATANOPROST 0.005% OP SOLN 2.5 ML BTL OPR SCH (21:00)
[2016-10-09 21:06] LABS: ALB/GLOB RATIO 0.7 (0.9-2); BUN/CREATININE RATIO 7.9 (10-20); CALCIUM 8.2 mg/dl (8.5-10.1); CREATININE 1.1 mg/dl (0.60-1.20); MAGNESIUM 1.5 mg/dl (1.8-2.4); POTASSIUM 3.7 mmol/L (3.5-5.1)
--- NOTE | 2016-10-09 22:26 | Procedure Note ---
Procedure Note Date of Service October 09, 2016. (Jayme Marie MD) Procedure Note Pre-Procedure Diagnosis: Acute Hypoxemic Respiratory Failure, Pneumonia Post-Procedure Diagnosis: Same Type of Procedure: Central Venous Catheter Placement Performing Physician: Dr. Jayme Marie, PGY2 Family medicine Attending/Supervising/Assisting Physician: Dr. Ad Pradhan, Critical Care Attending Indication: Need for multiple IV medications Consent: Detailed explanation of the procedure, treatment options, risks including but not limited to infection and bleeding, and benefits were explained to the patient's son Jonnathan. A written informed consent was obtained and placed in the patient's chart. Technique: A time out was preformed identifying the correct procedure, the correct location with the nursing staff. The right/left neck / chest / groin was prepped with 2% chlorhexidine and draped with a full length sterile sheet in the usual fashion. 1% lidocaine was administered subcutaneously for local anesthesia. The right internal jugular vein was accessed under ultrasound guidance with an 18 gauge thin wall needle. A triple lumen was inserted via the Seldinger technique. Blood was withdrawn from all lumens and flushed with normal saline. The catheter was sutured in place and a sterile dressing was applied over the site prior to removal of drapes. The patient tolerated the procedure well and there were no complications. Chest x ray is pending at this time. EBL: 1 cc Complication: None (Jayme Marie MD) Critical Care Medicine Point of Care Bedside Ultrasound Procedure: Procedural Ultrasound Procedure Date: 10/09/16 Indication: Poor Vascular access, VRE sepsis Attending: Tariq Pradhan DO Resident/Physician Piano Machine Operator: Cynthia Artery AND Vein visualized: Y Compressible Vein: Y Guidewire or Short Catheter seen in vein prior to dilation: Y Line confirmed in Vein with ultrasound: Y Lung Sliding on side of attempt (if applicable): NA If no lung sliding or not obtained has CXR been ordered: Y Impression: successful RIJ CVL Plan: reviewed Post-procedure FIlm, no PTX, CVL in okay position Images obtained are saved for permanent record I was present and assisted during the entire procedure. (Ad Pradhan, D.O.)
--- NOTE | 2016-10-09 22:44 | DIAGNOSTIC IMAGING REPORT ---
CHEST ONE VIEW PORTABLE HISTORY: et tube placement COMPARISON: Chest 10/09/2016. FINDINGS: The nasogastric tube terminates in the stomach. The endotracheal tube terminates the left 11.5 mm from the ramandeep. Right jugular catheter terminates at the distal SVC. No pneumothorax. Low lung volumes. Right upper lobe interstitial thickening has slightly progressed. Patchy bibasilar densities and trace bilateral pleural effusions remain unchanged. The heart is stable in size. Multiple vertebroplasty. Old left-sided rib fractures. IMPRESSION: 1. The endotracheal tube terminates 11.5 mm from the ramandeep. This could be pulled back by 1 cm. 2. Nasogastric tube terminates in the stomach. 3. Right jugular central venous catheter terminates in the distal SVC. 4. Slight progression of the right upper lobe interstitial thickening. This could represent a pneumonitis or asymmetric congestive change. 5. Bibasilar densities and trace bilateral pleural effusions persist. Electronically signed by: Stoney Bryson M.D. 10/09/2016 10:43 PM Dictated Date/Time: 10/09/2016 10:40 PM
--- NOTE | 2016-10-09 23:01 | Progress Note ---
Progress Note Date of Service October 09, 2016. Progress Note I was called regarding this patient that her breathing status had worsened, and went immediately to the patient. She was found to be in acute respiratory failure, wearing a nonrebreather mask, with significant use of accessory muscles. The patient is lethargic, in severe respiratory distress, with significant accessory muscle use. HEENT--PERRL, EOMI, mucous membranes and oropharynx dry. Neck--supple, no JVD or bruits, thyroid normal, trachea midline, no adenopathy. Heart--tachycardic and regular, no murmurs, rubs or gallops. Lungs--coarse breath sounds bilaterally, severe respiratory distress, significant accessory muscle use. Abdomen--normal bowel sounds and soft, nontender and nondistended, no hernias or masses, no organomegaly. Extremities--no cyanosis, clubbing. There is 1+ pretibial bilateral pitting Edema. There are good distal pulses b/l. Dermatologic--normal skin turgor, normal color, warm and dry, no abnormal lymph nodes, no rash. Neurologic--cranial nerves II through XII grossly intact. Rheumatologic--is able to move all extremities. Psychiatric--lethargic and minimally responsive. Assessment and Plan: X Acute respiratory failure with hypoxia and hypercapnia--patient was initially seen on the fourth floor, I made an immediate phone call for transfer to the ICU for further treatment. I ordered a stat EKG, portable chest x-ray, ABG, CBC with differential, chemistry profile, magnesium, and cardiac enzymes. She will be placed on BiPAP initially, but suspect that she will need to be intubated. Dr. Pradhan, gallery or museum attendant, was in the ICU when she arrived and was informed of her case.
[2016-10-09] MEDS ORDERED: POTASSIUM PHOS 3 MMOL/1 ML INFUSION IV STA (23:06)
[2016-10-09] MEDS ORDERED: MAGNESIUM SULFATE 1GM / D5W 1 GM BAG IV STA (23:06)
--- NOTE | 2016-10-09 23:58 | Critical Care Consultation ---
Critical Care Consultation Date of Consultation: October 09, 2016. Attending Physician: Marvel Barron D.O. Reason for Consultation: Acute hypoxic respiratory failure History of Present Illness 71-year-old female with complex past medical history as noted below, admitted from [facility] with altered mental status on 10/04/2016, and was treated empirically for a complicated urinary tract infection. Cultures were positive for VRE. She has since been on treatment with linezolid. She's currently on day 5 of antibiotic therapy. The ICU team was informed this evening at approximately 1900 that the patient was having difficulty breathing, and there was concern for impending respiratory failure. She was placed on BiPAP, brought to the ICU for further evaluation and management. In the ICU the patient was too short of breath to provide a cogent history on her symptoms. A chest x-ray was obtained which suggested bibasilar densities, which were similar to chest x-ray on 10/04. ABG in the ICU showed that the patient was acidotic with pH 7.26, likely respiratory source. 10 point review of systems could not be performed as the patient was too dyspneic Past Medical/Surgical History (1) Ambulatory dysfunction (2) Cholelithiases (3) Chronic Kidney Disease, Stage III (Moderate) (4) Compression fracture of fourth lumbar vertebra (5) Duodenal bulb ulcer (6) Gout (7) Hodgkins lymphoma (8) Hyperlipidemia (9) Hypertension (10) Bilateral renal artery stenosis (11) Opiate use (12) Osteoporosis (13) Perforated duodenal ulcer (14) Secondary hyperparathyroidism (15) Wedge compression fracture of T11 vertebra (16) COPD Surgical Problems: (1) History of kyphoplasty Status: Resolved (2) left renal artery stent placement Status: Resolved Family History Heart disease Social History Smoking Status: Never Smoker Smokeless Tobacco Use: No Alcohol Use: none Drug Use: none Marital Status: Housing Status: lives with family Occupation Status: disabled Allergies Coded Allergies: Squash (Verified Allergy, Unknown, Zucchini, 08/29/16) Azithromycin (Verified Adverse Reaction, Unknown, nausea, 08/29/16) Levofloxacin (Verified Adverse Reaction, Unknown, nausea, 08/29/16) Home Medications Scheduled Allopurinol (Zyloprim), 100 MG PO BID Amlodipine (Norvasc), 10 MG PO DAILY Baclofen (Lioresal), 10 MG PO BID Calcitonin Jackson (Calcitonin-Jackson), 1 SPRAY ERIC DAILY Carvedilol (Coreg), 25 MG PO BID Cholecalciferol (D-1000), 4,000 UNITS PO DAILY Clonidine Hcl (Xbdwtoof-Mbz-7), 2 PATCH TD WK Diclofenac Sodium (Topical) (Voltaren 1% Top Gel), 1 GM TD QID Duloxetine Hcl (Cymbalta), 20 MG PO DAILY Ergocalciferol (Drisdol), 50,000 INTER.UNIT PO WEEKLY Ferrous Sulfate (Kp Ferrous Sulfate), 325 MG PO DAILY Fluticasone Prop/Salmeterol (Advair Diskus 250/50 60 Dose), 1 PUFFS INH BID Fluticasone Propionate (Nasal) (Flonase Allergy Relief Ch), 1 SPRAY ERIC BID Guaifenesin Ext Rel (Mucinex Ext Rel), 600 MG PO BID Hydralazine Hcl (Apresoline), 75 MG PO TID Hydromorphone Hcl (Dilaudid), 4 MG PO Q4H Ipratropium-Albuterol (Combivent Respimat), 1 PUFFS INH QID Latanoprost (Latanoprost), 1 DROP OPR HS Lidocaine (Lidoderm Patch 5%), 1 PATCH TD DAILY Lorazepam (Ativan), 0.5 MG PO TID Megestrol Acetate (Megace), 40 MG PO QAM Methadone Hcl (Dolophine), 30 MG PO TID Multivitamin (Multivitamin), 1 TAB PO DAILY Pantoprazole (Protonix), 40 MG PO BID Polyethylene Glycol 3350 (Miralax), 17 GM PO BID Potassium Chloride (Micro-K Ext Rel), 10 MEQ PO DAILY Prednisone (Prednisone), 5 MG PO DAILY Sennosides (Senokot), 1 TAB PO QAM Sucralfate (Carafate), 1 GM PO ACHS Tiotropium [place] (Spiriva Handihaler), 1 CAP INH DAILY Scheduled PRN Acetaminophen (Tylenol), 650 MG PO Q6 PRN for Pain or Fever Epinephrine (Epipen), 0.3 MG IM UD PRN for ALLERGIC REACTION Hydromorphone Hcl (Dilaudid), 6 MG PO Q4H PRN for PAIN # 6-10 Ipratropium-Albuterol (Duoneb), 1 TREATMENT INH Q4H PRN for WH Lorazepam (Ativan), 0.5 MG PO Q6H PRN for Anxiety Magnesium Hydroxide (Milk of Magnesia), 30 ML PO UD PRN for Constipation Zolpidem Tartrate (Zolpidem Tartrate), 5 MG PO HS PRN for INSOMNIA Miscellaneous Medications Bisacodyl (Dulcolax), 1 SUPP IL Dextrose (Diabetic Use) (Insta-Glucose), 1 APPLN PO Glucagon (Glucagon Emergency Kit), 1 APPLN IM Sodium Phosphates (Fleet Enema Six Pack), 1 APPL RE Current Inpatient Medications Current Inpatient Medications Medications (Trade) Dose Ordered Sig/Estephania Route Start Time Stop Time Status Last Admin Dose Admin Nystatin 5 ml 5 ml QID PO 10/05/16 08:00 10/12/16 08:59 10/08/16 21:17 5 ML Fluconazole/ Sodium Chloride/ Prmx (Diflucan IV/ Premixed Nss) 50 ml @ 100 mls/hr DAILY IV 10/06/16 08:00 10/20/16 07:59 10/09/16 09:44 100 MLS/HR Allopurinol (Zyloprim Tab) 100 mg BID PO 10/05/16 08:00 11/04/16 07:59 Amlodipine Besylate (Norvasc Tab) 10 mg DAILY PO 10/05/16 08:00 11/04/16 07:59 Baclofen (Lioresal Tab) 10 mg BID PO 10/05/16 08:00 11/04/16 07:59 Calcitonin Jackson (Fortical Nasal [place]) 1 spray DAILY ERIC 10/05/16 08:00 11/04/16 07:59 10/09/16 07:43 1 SPRAY Carvedilol (Coreg Tab) 25 mg BID PO 10/05/16 08:00 11/04/16 07:59 Cholecalciferol (Vitamin D Tab) 2,000 inter.unit DAILY PO 10/05/16 08:00 11/04/16 07:59 Clonidine HCl (Dbwgtvqz-Ssc-8 0.2mg/24hr Patch) 2 patch Cheney@1600 TD 10/09/16 16:00 11/08/16 15:59 10/09/16 16:11 2 PATCH Diclofenac Sodium (Voltaren 1% Top Gel) 1 appln QID EXT 10/05/16 08:00 11/04/16 07:59 10/08/16 16:45 1 APPLN Duloxetine HCl (Cymbalta Cap) 20 mg DAILY PO 10/05/16 08:00 11/04/16 07:59 Future Hold Salmeterol Xinafoate/ Fluticasone (Advair Diskus 250/50 Inh) 1 puff BID INH 10/05/16 08:00 11/04/16 07:59 10/08/16 07:54 1 PUFF Fluticasone Propionate (Flonase Nasal [place]) 1 sprays BID ERIC 10/05/16 08:00 11/04/16 07:59 10/09/16 07:43 1 SPRAYS Hydralazine HCl (Apresoline Tab) 75 mg TID PO 10/05/16 08:00 11/04/16 07:59 10/09/16 13:10 75 MG Latanoprost (Xalatan Oph Soln) 1 drops HS OPR 10/05/16 22:00 11/04/16 21:59 10/08/16 21:16 1 DROPS Lidocaine (Lidoderm Patch 5%) 1 patch DAILY TD 10/05/16 08:00 11/04/16 07:59 10/08/16 08:02 1 PATCH Magnesium Hydroxide (Milk Of Magnesia Susp) 30 ml DAILY PRN PO 10/05/16 05:15 11/04/16 05:14 Multivitamins (Multivitamin Tab) 1 tab DAILY PO 10/05/16 08:00 11/04/16 07:59 Potassium Chloride (Klor-Con M10) 10 meq DAILY PO 10/05/16 08:00 11/04/16 07:59 Senna (Senokot Tab) 8.6 mg QAM PO 10/05/16 08:00 11/04/16 07:59 Miscellaneous (Remove Lidoderm Patch) 1 ea DAILY@21 N/A 10/05/16 21:00 11/04/16 20:59 10/07/16 20:08 1 EA Albuterol/ Ipratropium (Duoneb) 3 ml QIDR INH 10/05/16 08:00 11/04/16 07:59 Miscellaneous (Remove Clonidine Patch) 1 ea Q7D@1559 N/A 10/09/16 15:59 6/13/17 15:58 10/09/16 16:12 1 EA Miscellaneous Information (Check Clonidine Patch Placement) 1 ea QS N/A 10/05/16 08:00 11/04/16 07:59 10/09/16 21:41 1 EA Heparin Sodium (Porcine) (Heparin Sq 5000 Unit/0.5ml) 5,000 unit Q8 SQ 10/05/16 06:00 11/04/16 05:59 10/08/16 21:37 5,000 UNIT Sucralfate (Carafate Susp) 1 gm ACHS PO 10/05/16 06:30 11/04/16 06:29 10/06/16 20:40 1 GM Megestrol Acetate (Megace Susp) 400 mg QAM PO 10/05/16 08:00 11/04/16 07:59 Ondansetron HCl (Zofran Inj) 4 mg Q4H PRN IV 10/06/16 11:00 11/05/16 10:59 10/09/16 13:31 4 MG Morphine Sulfate 2 mg 2 mg Q4 PRN IV 10/07/16 10:15 10/21/16 10:14 10/08/16 11:09 2 MG Promethazine HCl/ Sodium Chloride (Phenergan Inj/ Nss 50ml) 50.5 ml @ 204 mls/hr Q6H PRN IV 10/07/16 16:00 11/06/16 15:59 10/09/16 17:16 204 MLS/HR Hydralazine HCl (HydrALAZINE INJ) 10 mg Q4H PRN IV. 10/08/16 01:45 11/07/16 01:44 10/09/16 17:16 10 MG Tiotropium [place] 1 puff 1 puff DAILY INH 10/09/16 08:00 11/08/16 07:59 Linezolid 600 mg/ Prmx 300 ml @ 300 mls/hr Q12@0600,1800 IV 10/08/16 18:00 10/18/16 17:59 10/09/16 17:22 300 MLS/HR Pantoprazole Sodium 40 mg/ Syringe 10 ml @ 5 mls/min BID IV 10/08/16 22:00 11/07/16 21:59 10/09/16 09:44 5 MLS/MIN Methylprednisolone Sodium Succinate 40 mg/Syringe 0.64 ml @ 1.5 mls/min Q8 IV 10/10/16 06:00 11/09/16 05:59 Midazolam HCl 250 ml @ 0 mls/hr Q0M PRN IV 10/09/16 20:33 11/08/16 20:32 Fentanyl Citrate (Fentanyl Drip 1250MCG/250 Nss) 250 ml @ 0 mls/hr Q0M IV 10/09/16 20:45 10/23/16 20:44 10/09/16 21:49 15 MLS/HR Review of Systems 10 point review of systems could not be obtained as the patient was too short of breath to provide any history Physical Exam Date Time Temp Pulse Resp B/P Pulse Ox O2 Delivery O2 Flow Rate FiO2 10/09/16 20:35 60 10/09/16 20:00 70 10/09/16 19:50 116 98 100 10/09/16 19:48 37.2 88 22 92 10/09/16 16:34 37.2 89 20 174/85 92 Nasal Cannula 4.0 10/09/16 16:00 Nasal Cannula 4.0 10/09/16 08:00 Nasal Cannula 4.0 10/09/16 07:34 37.1 78 20 151/79 94 Nasal Cannula 5.0 10/09/16 06:00 72 164/73 94 Nasal Cannula 5.0 10/09/16 00:58 37.5 75 22 160/90 92 Nasal Cannula 4.0 10/09/16 00:00 Nasal Cannula 4.0 General Appearance: moderate distress, thin Eyes: PERRLA, EOMI ENT: normal ear exam, normal nasal exam, normal mouth exam Neck: no tenderness, trachea midline, no stridor, supple, other (EUGENIO retractions) Respiratory: other (coarse breath sounds bilaterally, no evidence of bibasilar crackles) Cardiovasular: regular rate/rhythm, no murmur, no gallop, other (tachycardic, 110s) Abdomen: non tender, normal bowel sounds, no rebound Lower Extremities: edema Neuro: other (GCS 13) Laboratory Results Last 24 Hours Test 10/09/16 08:12 10/09/16 08:35 10/09/16 11:52 10/09/16 17:17 Bedside Glucose 88 mg/dl 96 mg/dl 83 mg/dl White Blood Count 16.70 K/uL Red Blood Count 4.07 M/uL Hemoglobin 11.4 g/dL Hematocrit 35.3 % Mean Corpuscular Volume 86.7 fL Mean Corpuscular Hemoglobin 28.0 pg Mean Corpuscular Hemoglobin Concent 32.3 g/dl Platelet Count 124 K/uL Mean Platelet Volume 9.9 fL Neutrophils (%) (Auto) 77.9 % Lymphocytes (%) (Auto) 10.6 % Monocytes (%) (Auto) 9.8 % Eosinophils (%) (Auto) 0.8 % Basophils (%) (Auto) 0.2 % Neutrophils # (Auto) 13.02 K/uL Lymphocytes # (Auto) 1.77 K/uL Monocytes # (Auto) 1.63 K/uL Eosinophils # (Auto) 0.14 K/uL Basophils # (Auto) 0.03 K/uL RDW Standard Deviation 52.6 fL RDW Coefficient of Variation 16.5 % Immature Granulocyte % (Auto) 0.7 % Immature Granulocyte # (Auto) 0.11 K/uL Sodium Level 138 mmol/L Potassium Level 3.7 mmol/L Chloride Level 107 mmol/L Carbon Dioxide Level 23 mmol/L Anion Gap 8.0 mmol/L Blood Urea Nitrogen 10 mg/dl Creatinine 1.10 mg/dl Est Creatinine Clear Calc Drug Dose 37.3 ml/min Estimated GFR () 59.3 Estimated GFR (Non- 51.2 BUN/Creatinine Ratio 9.2 Random Glucose 90 mg/dl Calcium Level 8.2 mg/dl Test 10/09/16 19:28 10/09/16 19:56 10/09/16 20:00 10/09/16 21:16 Bedside Glucose 100 mg/dl Blood Gas Sample Site L Radial Bedside Blood Gas pH (LAB) 7.26 Bedside Blood Gas pCO2 (LAB) 46 mmHg Bedside Blood Gas pO2 (LAB) 189 mmHg Bedside Blood Gas HCO3 (LAB) 20 meq/L Bedside Blood Gas Total CO2 22 mEq/l Bedside Blood Gas Base Excess (LAB) -7.0 meq/L Bedside Blood Gas O2 Saturation 99.0 % Leroy Test Pass Oxygen Delivery Device BIPAP Bedside Oxygen Rate (breaths/min) 12 Bedside FiO2 100 % Blood Gas IPAP 12 White Blood Count 18.69 K/uL Red Blood Count 4.30 M/uL Hemoglobin 12.1 g/dL Hematocrit 37.2 % Mean Corpuscular Volume 86.5 fL Mean Corpuscular Hemoglobin 28.1 pg Mean Corpuscular Hemoglobin Concent 32.5 g/dl Platelet Count 156 K/uL Mean Platelet Volume 10.3 fL Neutrophils (%) (Auto) 78.9 % Lymphocytes (%) (Auto) 9.7 % Monocytes (%) (Auto) 9.4 % Eosinophils (%) (Auto) 0.9 % Basophils (%) (Auto) 0.2 % Neutrophils # (Auto) 14.77 K/uL Lymphocytes # (Auto) 1.81 K/uL Monocytes # (Auto) 1.76 K/uL Eosinophils # (Auto) 0.16 K/uL Basophils # (Auto) 0.03 K/uL RDW Standard Deviation 52.4 fL RDW Coefficient of Variation 16.5 % Immature Granulocyte % (Auto) 0.9 % Immature Granulocyte # (Auto) 0.16 K/uL Sodium Level 139 mmol/L Potassium Level 3.7 mmol/L Chloride Level 109 mmol/L Carbon Dioxide Level 22 mmol/L Anion Gap 8.0 mmol/L Blood Urea Nitrogen 9 mg/dl Creatinine 1.10 mg/dl Est Creatinine Clear Calc Drug Dose 37.3 ml/min Estimated GFR () 59.3 Estimated GFR (Non- 51.2 BUN/Creatinine Ratio 7.9 Random Glucose 99 mg/dl Calcium Level 8.2 mg/dl Magnesium Level 1.5 mg/dl Total Bilirubin 0.4 mg/dl Aspartate Amino Transf (AST/SGOT) 26 U/L Alanine Aminotransferase (ALT/SGPT) 23 U/L Alkaline Phosphatase 156 U/L Troponin I 0.020 ng/ml Total Protein 6.3 gm/dl Albumin 2.5 gm/dl Globulin 3.8 gm/dl Albumin/Globulin Ratio 0.7 Lactic Acid Level 0.7 mmol/L Procalcitonin 0.11 ng/ml Diagnostic Results CHEST ONE VIEW PORTABLE CLINICAL HISTORY: Acute change in mental status COMPARISON STUDY: 09/07/2016 FINDINGS: The heart is enlarged. There are low lung volumes. There are bibasilar opacities (atelectasis favored over pneumonia. Clinical correlation necessary).. There is aortic tortuosity.[ IMPRESSION: 1. Stable cardiomegaly 2. Persistent bibasilar opacities, atelectatic versus inflammatory. Electronically signed by: Himanshu Cueto M.D. 10/04/2016 7:50 PM Dictated Date/Time: 10/04/2016 7:49 PM CHEST ONE VIEW PORTABLE HISTORY: et tube placement COMPARISON: Chest 10/09/2016. FINDINGS: The nasogastric tube terminates in the stomach. The endotracheal tube terminates the left 11.5 mm from the ramandeep. Right jugular catheter terminates at the distal SVC. No pneumothorax. Low lung volumes. Right upper lobe interstitial thickening has slightly progressed. Patchy bibasilar densities and trace bilateral pleural effusions remain unchanged. The heart is stable in size. Multiple vertebroplasty. Old left-sided rib fractures. IMPRESSION: 1. The endotracheal tube terminates 11.5 mm from the ramandeep. This could be pulled back by 1 cm. 2. Nasogastric tube terminates in the stomach. 3. Right jugular central venous catheter terminates in the distal SVC. 4. Slight progression of the right upper lobe interstitial thickening. This could represent a pneumonitis or asymmetric congestive change. 5. Bibasilar densities and trace bilateral pleural effusions persist. Assessment & Plan (1) Acute respiratory failure with hypoxia (2) Altered mental status (3) UTI (urinary tract infection) (4) COPD (chronic obstructive pulmonary disease) (5) Opioid dependence (6) Chronic kidney disease (CKD) stage G3a/A1, moderately decreased glomerular filtration rate (GFR) between 45-59 mL/min/1.73 square meter and albuminuria creatinine ratio less than 30 mg/g (7) Lethargy (8) Noncompliance with medications (9) Ambulatory dysfunction NEUROLOGICAL - GCS: 14 - Sedation: Versed infusion Fentanyl infusion, given patient's history of chronic opioid dependence - RASS: Goal 0 to -1 - Pain regimen: Fentanyl infusion as above CARDIOVASCULAR - BP: Stable, maintaining blood pressure between 150-170 systolic Goal MAP . 65 - Vasopressor support: None indicated - IV Fluids: - Hypertension: Labetalol 5 mg PRN every 4 hours when necessary for SBP greater than 160 or DBP greater than 110 - Rule out cardiogenic shock as possible cause for shortness of breath - Serial troponins - ProBNP and Echocardiogram RESPIRATORY - Prior to arrival to the ICU the patient was on 4 L by nasal cannula The patient arrived to the ICU on BiPAP, with clinical findings of somnolence and concern for impending respiratory arrest As such the decision was made to intubate the patient at the bedside and placed on full mechanical ventilation Consent was obtained from the patient's son, BREANN . See separate procedure note in the chart Patient will be placed on A/C mode ventilation - Concern for possible pneumonia Bronchoscopy performed at the bedside, right middle lobe and left lingula collected Patient will be started on Levaquin for gram-negative, atypical and pseudomonal coverage Repeat chest x-ray daily - History of COPD Continue DuoNeb, Spiriva, and Advair Solu-Medrol 125 mg even prior to ICU arrival; will continue 40 mg Solu- Medrol 3 times a day, and taper as tolerated Daily chest x-ray GASTROINTESTINAL - Diet: Nothing by mouth, OG tube placed Start tube feeds, fiber source 1.2, goal rate 45 ml/hr Administer meds down OG tube - GI Prophylaxis: Protonix 40 mg IV twice a day - Bowel regimen: Monitor for bowel movements - Nausea: Promethazine RENAL//ENDOCRINE - Monitor daily fluid balance, including ins and outs, and daily weights - Urine output goal > 0.5 ml/kg/hr - Cr: 1.1, improved compared to AKA on admission - Electrolytes: - Administer 2 g magnesium - 9 mmol K-Phos - IV Fluids: Hold IV fluids at this time - BSG: Monitor BSG's, and add insulin if indicated HEMATOLOGY/INFECTIOUS DISEASE - Has been afebrile, though was noted to have a steadily increasing leukocytosis since 10/05. - Lactate on presentation to the ICU was normal at 0.7, pro-calcitonin was mildly elevated at 0.11. These will both be repeated with morning labs - Hb/Hct 12.1/37.2 - Antibiotics: Continue Linezolid Levofloxacin has been added, for coverage of pneumonia organism such as atypical, gram negatives and pseudomonas - DVT Prophylaxis: Heparin 5000 units every 8 LINES/IV ACCESS - A central venous catheter was placed at the bedside, see separate procedure note CODE STATUS - Full Code DISPOSITION - OT/PT: The patient is sedated and unable to participate and OT and PT at this time. These can be ordered once the patient is extubated. - ICU for invasive ventilation and continued evaluation for acute hypoxic respiratory failure Resident Physician Supervision Note: Dr. Marie was resident physician during care of patient. I separately evaluated patient and did history and exam. I discussed the case with the resident and generally agree with the findings and plan. Concern for VRE associated Sepsis. Intubated for impending respiratory failure and altered mental status. Son attempting to secure earlier flight to [employer]. Code status: full code Documented By: Ad Pradhan DO Problem Qualifiers (1) Altered mental status: Altered mental status type: unspecified Qualified Codes: R41.82 - Altered mental status, unspecified
[2016-10-10] VITALS (20 sets, daily range): BP systolic 93–132; BP diastolic 55–78; PULSE 59–81; TEMP 34.7–37.8; O2SAT 94–97
[2016-10-10] MEDS ORDERED: LEVOFLOXACIN / D5W 750 MG in PREMIXED IN D5W 150 ML IV SCH
--- NOTE | 2016-10-10 00:06 | Progress Note ---
Progress Note Date of Service October 09, 2016. (Jayme Marie MD) Progress Note Procedure: Endotracheal Intubation Indication: Impending respiratory arrest Performed by: Dr. Jayme Marie, PGY 2 Family Medicine Supervising Physician: Dr. Ad Grigsby, Critical Care Attending Physician Procedure Details: The procedure was explained to the patient. She was unable to provide consent for herself so consent was obtained from her son. Consent form was placed in the chart. The patient was positioned supine. The patient was sedated with 20 mg Etomidate, followed by Succinylcholine for neuromuscular blockade. The patient could be adequate ventilated by bag-mask. A Stanley 3 Blade was inserted into the oropharynx and advanced into the vallecula. A Grade I view of the vocal cords was achieved. A 7.5 mm endotracheal tube was advanced and visualized passing through the vocal cords and into the trachea. The abdomen and lungs were auscultated to confirm placement through the airway. Humidification was noted through the ET tube with expiration. The cuff was inflated at 19 cm to the lip. The ET tube was secured in place. The patient tolerated the procedure well. Post-intubation X-ray confirmed correct positioning. Complications: None EBL: None (Jayme Marie MD) I was present and assisted during the entire procedure. (Ad Pradhan, D.O.)
--- NOTE | 2016-10-10 00:06 | Procedure Note ---
Procedure Note Date of Service October 10, 2016. Procedure Note Procedure date: 10/09/2016 Procedure: fiberoptic bronchoscopy Pre-procedure Diagnosis: Respiratory failure Post-procedure Diagnosis: same as above Prior to Procedure: Informed Consent: The risks, benefits, indications, potential complications, and alternatives were explained to the patient/family and informed consent obtained. Attending Staff: Tariq Pradhan DO Resident/APC: Cynthia Skin Prep: Not applicable Anesthesia: 10 ML's 1% lidocaine, fentanyl and Versed infusions Indications: Patient is a 71-year-old female who has been admitted to the hospital for the past 4 days, has a complicated urinary tract infection, concern for VRE associated sepsis, altered mental status, impending respiratory failure and respiratory insufficiency. The identity of the patient was confirmed and a bedside time out was performed. Description of Procedure: Fiberoptic bronchoscopy was performed via endotracheal tube. Bronchioalveolar lavage was performed. Findings included: Thick white secretions in the bilateral lower lobes. Greater than 50% dynamic airway collapse with exhalation indicating moderate tracheomalacia. Complications: None Specimens: Bronchial washings sent for culture and Gram stain, cytology, fungal elements, and AFB stain and culture. Estimated blood loss: Zero
[2016-10-10] MEDS ORDERED: POTASSIUM PHOSPHATE INJ 9 MMOL in SODIUM CHLORIDE 0.9% 250ML 250 ML IV SCH (00:15)
[2016-10-10] MEDS ORDERED: FIBERSOURCE HN 1000ML BAG NG SCH ×2 (00:15)
[2016-10-10] MEDS: MAGNESIUM SULFATE 1GM / D5W 1 GM in PREMIXED IN D5W 100 ML IV SCH ×2 (01:06→01:42)
--- NOTE | 2016-10-10 01:16 | Procedure Note ---
Procedure Note Date of Service October 10, 2016. (Jayme Marie MD) Procedure Note Procedure: Arterial Catheter Placement Pre-Procedure Diagnosis: Acute Hypoxic Respiratory Failure Post-Procedure Diagnosis: Same Indication: Need for invasive blood pressure monitoring Performing Physician: Dr. Jayme Marie, PGY2 Family Medicine Supervising/Attending Physician: Dr. Ad Pradhan, Critical Care Attending Consent: Detailed explanation of the procedure, treatment options, risks including but not limited to infection, bleeding, local tissue/nerve damage, and benefits were explained to the patient's son. A written informed consent was obtained and placed in the patient's chart. Technique: A time out was preformed identifying the correct procedure, the correct location with the nursing staff. The left wrist was prepped with 2% chlorhexidine and draped with a sterile sheet in the usual fashion. 1% lidocaine was administered subcutaneously for local anesthesia. The left radial artery was cannulated with a 20 gauge catheter. The catheter was secured with a StatLock and a sterile dressing was applied over the site prior to removal of drapes. The patient tolerated the procedure without complications. EBL: 1 cc Complication: None (Jayme Marie MD) I was present and assisted during the entire procedure. (Ad Pradhan, D.O.)
[2016-10-10] MEDS ORDERED: LEVOFLOXACIN CONSULT ACTIVE PRN (02:00)
[2016-10-10 05:40] LABS: HEMATOCRIT 30.3 % (37-47); MEAN CELL VOLUME 85.6 fL (80-100); MEAN CORPUSCULAR HEMOGLOBIN 27.7 pg (25-34); MEAN CORPUSCULAR HGB CONC 32.3 g/dl (32-36); MEAN PLATELET VOLUME 10.2 fL (7.4-10.4); PLATELET COUNT 110 K/uL (130-400); RED BLOOD COUNT 3.54 M/uL (4.2-5.4); WHITE BLOOD COUNT 6.22 K/uL (4.8-10.8)
[2016-10-10] MEDS: METHYLPREDNISOLONE IV 40 MG in SYRINGE 0 ML IV SCH ×3 (05:46→21:31)
[2016-10-10] MEDS: LINEZOLID / D5W 600 MG in PREMIXED IN D5W 300 ML IV SCH ×2 (05:46→16:13)
[2016-10-10] MEDS: HEPARIN SOD 5000 UNIT/0.5 ML CARP SQ SCH ×3 (05:52→21:43)
[2016-10-10 06:14] LABS: BUN/CREATININE RATIO 8.4 (10-20); CALCIUM 7.5 mg/dl (8.5-10.1); CREATININE 1.1 mg/dl (0.60-1.20); MAGNESIUM 2.2 mg/dl (1.8-2.4); POTASSIUM 3.3 mmol/L (3.5-5.1)
[2016-10-10 06:19] LABS: ALB/GLOB RATIO 0.6 (0.9-2); PHOSPHORUS 3.5 mg/dl (2.5-4.9)
--- NOTE | 2016-10-10 06:25 | DIAGNOSTIC IMAGING REPORT ---
CHEST ONE VIEW PORTABLE CLINICAL HISTORY: post-bronch, ET tube repositioning, verify position tube position COMPARISON STUDY: Same date 10:00 PM FINDINGS: Endotracheal tube 2 cm above the ramandeep. No evidence for pneumothorax. Persistent increased density left base. Central catheter remains in superior vena cava. IMPRESSION: Endotracheal tube 2 cm above the ramandeep. No evidence of pneumothorax post bronchoscopy Electronically signed by: Klever June M.D. 10/10/2016 6:24 AM Dictated Date/Time: 10/10/2016 6:23 AM
[2016-10-10] MEDS ORDERED: PERFLUTREN LIPID MICROSPHERE (DEFINITY) IV ONE (07:21)
[2016-10-10] MEDS: ALBUT/IPRATROP 3MG/0.5MG NEB 3 ML VIAL INH SCH ×2 (07:29→12:00)
--- NOTE | 2016-10-10 07:31 | DIAGNOSTIC IMAGING REPORT ---
CHEST ONE VIEW PORTABLE CLINICAL HISTORY: Respiratory failure COMPARISON STUDY: 10/09/2016 FINDINGS: There is an endotracheal tube positioned 24 mm above the ramandeep. There is a nasogastric tube within the stomach. There are low lung volumes. There are multiple old rib fractures. Bilateral pleural effusions are suspected. There are bibasilar opacities likely atelectatic. Increased right upper lobe markings also remain stable.[There is evidence of multiple prior vertebral plasties. IMPRESSION: No significant change from the prior study. Endotracheal tube 24 mm above the ramandeep. Small bilateral pleural effusions and bibasilar opacities persist.. Electronically signed by: Himanshu Cueto M.D. 10/10/2016 7:30 AM Dictated Date/Time: 10/10/2016 7:26 AM
[2016-10-10 07:52] LABS: COMPLETE YES; IG% 1.1 %; LYMPH % 10.6 %; LYMPH ABS # 0.66 K/uL (1.2-3.4); MONO % 2.4 %; NEUT % 85.9 %
[2016-10-10] MEDS: CHECK CLONIDINE PATCH PLACEMENT SCH ×2 (08:00→16:50)
[2016-10-10] MEDS ORDERED: POTASSIUM CHLR 10 MEQ / WTR 10 MEQ in PREMIXED WATER 100 ML IV STA (08:59)
[2016-10-10] MEDS: TIOTROPIUM BROMIDE 5 PUFF/90 MCG INH INH SCH (09:00)
[2016-10-10] MEDS ORDERED: CHLORHEXIDINE GLUCONATE 0.12% 480 ML MT SCH (09:00)
[2016-10-10] MEDS: FLUTICASONE/SALMETEROL 250/50 (ADVAIR) 14 PUFF/1 INHALER INH SCH ×2 (09:00→20:13)
[2016-10-10 09:11] LABS: ISTAT ARTERIAL BLOOD GAS HCO3 22 meq/L (19-24); ISTAT ARTERIAL BLOOD GAS PCO2 35 mmHg (35-46); ISTAT ARTERIAL BLOOD GAS PO2 73 mmHg (80-95); ISTAT CARBON DIOXIDE 23 mEq/l (24-31); ISTAT DELIVERY SYSTEM Ventilator; ISTAT FIO2 40 %; ISTAT PEEP 5; ISTAT RATE 16; ISTAT SITE Art Line; VE 5.9; Vt 400
[2016-10-10] MEDS: PANTOprazole INJ 40 MG in SYRINGE 0 ML IV SCH ×2 (10:35→21:38)
[2016-10-10] MEDS: MULTIVITAMIN TAB PO SCH (10:44)
[2016-10-10] MEDS: CHOLECALCIFEROL 1000 INTER.UNIT TAB PO SCH (10:44)
[2016-10-10] MEDS: SENNA 8.6 MG TAB PO SCH (10:45)
[2016-10-10] MEDS: CARVEDILOL 25 MG TAB PO SCH ×2 (10:45→21:41)
[2016-10-10] MEDS: ALLOPURINOL 100 MG TAB PO SCH ×2 (10:46→21:38)
[2016-10-10] MEDS: BACLOFEN 10 MG TAB PO SCH ×2 (10:46→21:40)
[2016-10-10] MEDS: CHLORHEXIDINE GLUCONATE 0.12% 15 ML UDP PO SCH ×2 (10:46→21:00)
[2016-10-10] MEDS: MEGESTROL ACETATE SUSP 400 MG/10 ML UDC PO SCH (10:47)
[2016-10-10] MEDS: DICLOFENAC SOD 1% GEL 100 GM TUBE EXT SCH ×4 (10:47→21:39)
[2016-10-10] MEDS: FLUTICASONE PROPIONATE NA SPR 16 GM BTL NAE SCH ×2 (10:48→21:00)
[2016-10-10] MEDS: CALCITONIN SALMON NA 200 IU/AC 3.7 ML BTL NAE SCH (10:48)
[2016-10-10] MEDS: SUCRALFATE 1 GM/10 ML UDC PO SCH ×4 (10:50→21:39)
[2016-10-10] MEDS: AMLODIPINE BESYLATE 5 MG TAB PO SCH (10:51)
[2016-10-10] MEDS: LIDODERM (LIDOCAINE) PATCH 5% TD SCH (10:51)
--- NOTE | 2016-10-10 11:50 | Critical Care Progress Note ---
Critical Care Progress Note Date of Service October 10, 2016. ICU Day ICU Day Number: [address] Jack Ro 71-year-old female with past medical history of PKD stage III, gout, hyperlipidemia, hypertension, perforated duodenal ulcer, COPD, bilateral renal artery stenosis status post left MARITZA stent, osteoporosis with compression fractures, secondary hyperparathyroidism who is a resident of [facility] presented to the ER after mental status on 10/04/2016 and treated empirically for complicated UTI secondary to VRE. She was transferred to the ICU last night due to respiratory distress . Chest x-ray had revealed bibasilar densities, ABG - acidotic at 7.26 and was intubated and she also underwent bronchoscopy and samples were sent for culture and Gram stain, cytology, fungal elements, and AFB stain and culture. Continues to remain intubated today , responds to voice. Objective GENERAL: Patient is in no acute distress. HEENT: No acute trauma, normocephalic atraumatic, mucous membranes moist, no nasal congestion, no scleral icterus. NECK: ET tube in place, Right IJ LUNGS: Clear to auscultation bilaterally, no wheeze, no rhonchi, breath sounds equal. HEART: Without murmurs gallops or rubs, regular rate and rhythm. ABDOMEN: Soft, nontender, bowel sounds positive, no hernias, no peritonitis. EXTREMITIES: b/l pedal edema NEUROLOGIC: responds to voice SKIN: No rash, no jaundice, no diaphoresis. Assessment & Plan 71-year-old female with past medical history of CKD stage III, gout, hyperlipidemia, hypertension, perforated duodenal ulcer, COPD, bilateral renal artery stenosis status post left MARITZA stent, osteoporosis with compression fractures, secondary hyperparathyroidism who is a resident of [facility] presented to the ER after mental status on 10/04/2016 and treated empirically for complicated UTI secondary to VRE. She was transferred to the ICU last night due to respiratory distress . s/p intubation and currently on a mechanical ventilator Neuro: responding to commands, CAM positive - Sedation: Versed Fentanyl at 75 Mcg /Hr - wean sedation - RASS: Goal 0 to -1 Hypothermia: core body temp at 34.7 earlier today - kar aguiar CVS: - BP: currently stable ranging in 110s-120s systolic, Goal MAP>65 h/o HTN with MARITZA , s/p stenting in left RA: - continue hydralazine, carvedilol, amlodipine, clonidine and labetalol PRN Tropinins trended- negative echo pending RESPIRATORY - Mechanical ventilator: TV 400 , PEEP 5, FIO2 40, - Possible Pneumonia: s/p bronchoscopy, cultures pending CXR: No significant change from the prior study. Endotracheal tube 24 mm above the ramandeep. Small bilateral pleural effusions and bibasilar opacities persist. - continue Levaquin - History of COPD Continue DuoNeb, Spiriva, and Advair Solu-Medrol 125 mg even prior to ICU arrival; will continue 40 mg Solu- Medrol 3 times a day, and taper as tolerated Daily chest x-ray GI/FEN: - OJ tube- restart tube feeds - GI prophylaxis: Protonix BID - Bowel regimen RENAL: Monitor Is and Os - Cr at 1.1, monitor Cr Electrolytes: Hypokalemia: K at 3.3, repleted ID: Procalcitonin at 0.63 from 0.11 yesterday lactate at 0.7 Possible pneumonia: - Continue Levaquin 750 mg q48 h ( renally dosed) Complicated UTI: sec to VRE: - Continue linezolid ( day 6 today) Heme: - WBC count dropped to 6.2 from 18.8 yesterday - Repeat CBC in noon DVT Prophylaxis: Heparin 5000 units every 8h Full code Dispo: Monitor in ICU Resident Physician Supervision Note/Chief Airport Guide Attending I interviewed and examined the patient. Discussed with Dr. Fischer and agree generally with findings and plan. Please see my dictated addendum for further clarifications and further details. Documented By: Erin Santiago Consults & Procedures Consultants: Chief Airport Guide Procedures: Intubation, Bronchoscopy Data Medications: Current Inpatient Medications Medications (Trade) Dose Ordered Sig/Estephania Route Start Time Stop Time Status Last Admin Dose Admin Allopurinol (Zyloprim Tab) 100 mg BID PO 10/05/16 08:00 11/04/16 07:59 Amlodipine Besylate (Norvasc Tab) 10 mg DAILY PO 10/05/16 08:00 11/04/16 07:59 Baclofen (Lioresal Tab) 10 mg BID PO 10/05/16 08:00 11/04/16 07:59 Calcitonin Webb (Fortical Nasal Shannon) 1 spray DAILY ERIC 10/05/16 08:00 11/04/16 07:59 10/09/16 07:43 1 SPRAY Carvedilol (Coreg Tab) 25 mg BID PO 10/05/16 08:00 11/04/16 07:59 Cholecalciferol (Vitamin D Tab) 2,000 inter.unit DAILY PO 10/05/16 08:00 11/04/16 07:59 Clonidine HCl (Ccilqnuc-Oip-1 0.2mg/24hr Patch) 2 patch Cheney@1600 TD 10/09/16 16:00 11/08/16 15:59 10/09/16 16:11 2 PATCH Diclofenac Sodium (Voltaren 1% Top Gel) 1 appln QID EXT 10/05/16 08:00 11/04/16 07:59 10/08/16 16:45 1 APPLN Duloxetine HCl (Cymbalta Cap) 20 mg DAILY PO 10/05/16 08:00 11/04/16 07:59 Future Hold Salmeterol Xinafoate/ Fluticasone (Advair Diskus 250/50 Inh) 1 puff BID INH 10/05/16 08:00 11/04/16 07:59 10/08/16 07:54 1 PUFF Fluticasone Propionate (Flonase Nasal Shannon) 1 sprays BID ERCI 10/05/16 08:00 11/04/16 07:59 10/09/16 07:43 1 SPRAYS Hydralazine HCl (Apresoline Tab) 75 mg TID PO 10/05/16 08:00 11/04/16 07:59 10/09/16 13:10 75 MG Latanoprost (Xalatan Oph Soln) 1 drops HS OPR 10/05/16 22:00 11/04/16 21:59 10/08/16 21:16 1 DROPS Lidocaine (Lidoderm Patch 5%) 1 patch DAILY TD 10/05/16 08:00 11/04/16 07:59 10/08/16 08:02 1 PATCH Magnesium Hydroxide (Milk Of Magnesia Susp) 30 ml DAILY PRN PO 10/05/16 05:15 11/04/16 05:14 Multivitamins (Multivitamin Tab) 1 tab DAILY PO 10/05/16 08:00 11/04/16 07:59 Senna (Senokot Tab) 8.6 mg QAM PO 10/05/16 08:00 11/04/16 07:59 Miscellaneous (Remove Lidoderm Patch) 1 ea DAILY@21 N/A 10/05/16 21:00 11/04/16 20:59 10/07/16 20:08 1 EA Albuterol/ Ipratropium (Duoneb) 3 ml QIDR INH 10/05/16 08:00 11/04/16 07:59 10/09/16 19:20 3 ML Miscellaneous (Remove Clonidine Patch) 1 ea Q7D@1559 N/A 10/09/16 15:59 11/08/16 15:58 10/09/16 16:12 1 EA Miscellaneous Information (Check Clonidine Patch Placement) 1 ea QS N/A 10/05/16 08:00 11/04/16 07:59 10/09/16 21:41 1 EA Heparin Sodium (Porcine) (Heparin Sq 5000 Unit/0.5ml) 5,000 unit Q8 SQ 10/05/16 06:00 11/04/16 05:59 10/10/16 05:52 5,000 UNIT Sucralfate (Carafate Susp) 1 gm ACHS PO 10/05/16 06:30 11/04/16 06:29 10/06/16 20:40 1 GM Megestrol Acetate (Megace Susp) 400 mg QAM PO 10/05/16 08:00 11/04/16 07:59 Ondansetron HCl (Zofran Inj) 4 mg Q4H PRN IV 10/06/16 11:00 11/05/16 10:59 10/09/16 13:31 4 MG Morphine Sulfate 2 mg 2 mg Q4 PRN IV 10/07/16 10:15 10/21/16 10:14 10/08/16 11:09 2 MG Promethazine HCl/ Sodium Chloride (Phenergan Inj/ Nss 50ml) 50.5 ml @ 204 mls/hr Q6H PRN IV 10/07/16 16:00 11/06/16 15:59 10/09/16 17:16 204 MLS/HR Hydralazine HCl (HydrALAZINE INJ) 10 mg Q4H PRN IV. 10/08/16 01:45 11/07/16 01:44 10/09/16 17:16 10 MG Tiotropium [place] 1 puff 1 puff DAILY INH 10/09/16 08:00 11/08/16 07:59 Linezolid 600 mg/ Prmx 300 ml @ 300 mls/hr Q12@0600,1800 IV 10/08/16 18:00 10/18/16 17:59 10/10/16 05:46 300 MLS/HR Pantoprazole Sodium 40 mg/ Syringe 10 ml @ 5 mls/min BID IV 10/08/16 22:00 11/07/16 21:59 10/09/16 09:44 5 MLS/MIN Methylprednisolone Sodium Succinate 40 mg/Syringe 0.64 ml @ 1.5 mls/min Q8 IV 10/10/16 06:00 11/09/16 05:59 10/10/16 05:46 1.5 MLS/MIN Midazolam HCl 250 ml @ 0 mls/hr Q0M PRN IV 10/09/16 20:33 11/08/16 20:32 Fentanyl Citrate 250 ml @ 0 mls/hr Q0M IV 10/09/16 20:45 10/23/16 20:44 10/09/16 21:49 15 MLS/HR Levofloxacin/Prmx (Levaquin / D5W/ Premixed D5W) 150 ml @ 100 mls/hr Q48H IV 10/10/16 00:00 10/17/16 00:00 10/10/16 01:06 100 MLS/HR Enteral Nutritional Formula (Fibersource HN) 1,000 ml UD NG 10/10/16 00:15 11/09/16 00:14 Levofloxacin (Consult) 1 ea UD PRN N/A 10/10/16 02:00 11/09/16 01:59 Chlorhexidine Gluconate 15 ml 15 ml BID PO 10/10/16 09:00 11/09/16 08:59 Potassium Chloride/Prmx (Kcl 10 Meq / Wtr/Premixed Water) 100 ml @ 100 mls/hr NOW STAT IV 10/10/16 08:59 10/10/16 09:58 I & O: 24-Hour Column 10/10/16 07:58 Intake Total 1751 ml Output Total 2100 ml Balance -349 ml Vital Signs: Date Time Temp Pulse Resp B/P Pulse Ox O2 Delivery O2 Flow Rate FiO2 10/10/16 08:00 95 Mechanical Ventilator 40 10/10/16 07:29 40 10/10/16 06:00 35.3 63 16 110/71 95 123/66 10/10/16 05:10 40 10/10/16 04:00 40 10/10/16 04:00 34.9 62 16 103/69 95 114/64 10/10/16 04:00 95 Mechanical Ventilator 40 10/10/16 02:31 34.7 59 16 93/60 95 10/10/16 02:20 50 10/10/16 02:00 60 15 110/65 97 10/10/16 01:31 60 16 112/59 97 10/10/16 01:00 65 16 109/64 95 10/10/16 00:31 66 16 111/68 94 10/10/16 00:00 97 Mechanical Ventilator 50 10/10/16 00:00 50 10/10/16 00:00 66 16 101/68 94 10/09/16 23:21 71 17 95/68 95 10/09/16 23:20 60 10/09/16 23:15 70 16 96/63 96 10/09/16 23:10 72 16 104/71 96 10/09/16 23:06 73 13 110/70 96 10/09/16 23:00 73 16 110/73 97 10/09/16 22:55 73 16 111/68 99 10/09/16 22:50 75 18 128/78 99 10/09/16 22:46 74 15 111/78 99 10/09/16 22:41 77 19 137/81 99 10/09/16 22:36 79 20 149/103 98 10/09/16 22:30 72 12 120/78 96 10/09/16 22:26 79 16 111/76 96 10/09/16 22:21 78 16 132/91 97 10/09/16 22:16 88 17 139/86 97 10/09/16 22:11 89 21 146/87 96 10/09/16 22:06 83 21 159/94 96 10/09/16 22:01 87 20 152/84 97 10/09/16 21:56 36.7 87 18 141/92 96 10/09/16 21:51 92 26 147/96 95 10/09/16 21:51 92 26 147/96 95 10/09/16 21:47 94 20 139/85 96 10/09/16 21:40 90 19 152/87 96 10/09/16 21:36 86 22 156/97 96 10/09/16 21:31 93 18 154/92 95 10/09/16 21:26 99 18 168/98 95 10/09/16 21:21 92 17 166/98 94 10/09/16 21:16 93 24 147/94 95 10/09/16 21:11 90 19 155/98 95 10/09/16 21:06 99 19 170/80 95 10/09/16 21:01 90 19 133/96 94 10/09/16 20:56 85 20 134/85 96 10/09/16 20:50 88 16 137/83 96 10/09/16 20:35 60 10/09/16 20:00 70 10/09/16 19:50 116 98 100 10/09/16 19:48 37.2 88 22 92 10/09/16 19:20 65 16 92 Diffusion Mask 6.0 10/09/16 16:34 37.2 89 20 174/85 92 Nasal Cannula 4.0 10/09/16 16:00 Nasal Cannula 4.0 Laboratory Results: Last 24 Hours Test 10/09/16 11:52 10/09/16 17:17 10/09/16 19:28 10/09/16 19:56 Bedside Glucose 96 mg/dl 83 mg/dl 100 mg/dl Blood Gas Sample Site L Radial Bedside Blood Gas pH (LAB) 7.26 Bedside Blood Gas pCO2 (LAB) 46 mmHg Bedside Blood Gas pO2 (LAB) 189 mmHg Bedside Blood Gas HCO3 (LAB) 20 meq/L Bedside Blood Gas Total CO2 22 mEq/l Bedside Blood Gas Base Excess (LAB) -7.0 meq/L Bedside Blood Gas O2 Saturation 99.0 % Leroy Test Pass Oxygen Delivery Device BIPAP Bedside Oxygen Rate (breaths/min) 12 Bedside FiO2 100 % Blood Gas IPAP 12 Test 10/09/16 20:00 10/09/16 21:16 10/10/16 05:30 10/10/16 08:59 White Blood Count 18.69 K/uL 6.22 K/uL Red Blood Count 4.30 M/uL 3.54 M/uL Hemoglobin 12.1 g/dL 9.8 g/dL Hematocrit 37.2 % 30.3 % Mean Corpuscular Volume 86.5 fL 85.6 fL Mean Corpuscular Hemoglobin 28.1 pg 27.7 pg Mean Corpuscular Hemoglobin Concent 32.5 g/dl 32.3 g/dl Platelet Count 156 K/uL 110 K/uL Mean Platelet Volume 10.3 fL 10.2 fL Neutrophils (%) (Auto) 78.9 % 85.9 % Lymphocytes (%) (Auto) 9.7 % 10.6 % Monocytes (%) (Auto) 9.4 % 2.4 % Eosinophils (%) (Auto) 0.9 % 0.0 % Basophils (%) (Auto) 0.2 % 0.0 % Neutrophils # (Auto) 14.77 K/uL 5.34 K/uL Lymphocytes # (Auto) 1.81 K/uL 0.66 K/uL Monocytes # (Auto) 1.76 K/uL 0.15 K/uL Eosinophils # (Auto) 0.16 K/uL 0.00 K/uL Basophils # (Auto) 0.03 K/uL 0.00 K/uL RDW Standard Deviation 52.4 fL 51.2 fL RDW Coefficient of Variation 16.5 % 16.2 % Immature Granulocyte % (Auto) 0.9 % 1.1 % Immature Granulocyte # (Auto) 0.16 K/uL 0.07 K/uL Sodium Level 139 mmol/L 140 mmol/L Potassium Level 3.7 mmol/L 3.3 mmol/L Chloride Level 109 mmol/L 107 mmol/L Carbon Dioxide Level 22 mmol/L 25 mmol/L Anion Gap 8.0 mmol/L 8.0 mmol/L Blood Urea Nitrogen 9 mg/dl 9 mg/dl Creatinine 1.10 mg/dl 1.10 mg/dl Est Creatinine Clear Calc Drug Dose 37.3 ml/min 37.3 ml/min Estimated GFR () 59.3 59.3 Estimated GFR (Non- 51.2 51.2 BUN/Creatinine Ratio 7.9 8.4 Random Glucose 99 mg/dl 139 mg/dl Calcium Level 8.2 mg/dl 7.5 mg/dl Magnesium Level 1.5 mg/dl 2.2 mg/dl Total Bilirubin 0.4 mg/dl 0.4 mg/dl Aspartate Amino Transf (AST/SGOT) 26 U/L 17 U/L Alanine Aminotransferase (ALT/SGPT) 23 U/L 16 U/L Alkaline Phosphatase 156 U/L 120 U/L Troponin I 0.020 ng/ml 0.026 ng/ml Pro-B-Type Natriuretic Peptide 10812 pg/ml Total Protein 6.3 gm/dl 5.0 gm/dl Albumin 2.5 gm/dl 1.9 gm/dl Globulin 3.8 gm/dl 3.1 gm/dl Albumin/Globulin Ratio 0.7 0.6 Lactic Acid Level 0.7 mmol/L 0.7 mmol/L Procalcitonin 0.11 ng/ml 0.63 ng/ml Phosphorus Level 3.5 mg/dl Blood Gas Sample Site Art Line Bedside Blood Gas pH (LAB) 7.40 Bedside Blood Gas pCO2 (LAB) 35 mmHg Bedside Blood Gas pO2 (LAB) 73 mmHg Bedside Blood Gas HCO3 (LAB) 22 meq/L Bedside Blood Gas Total CO2 23 mEq/l Bedside Blood Gas Base Excess (LAB) -3.0 meq/L Bedside Blood Gas O2 Saturation 95.0 % Leroy Test NA Oxygen Delivery Device Ventilator Bedside Oxygen Rate (breaths/min) 16 Blood Gas Minute Ventilation 5.9 Bedside FiO2 40 % Blood Gas Tidal Volume 400 Blood Gas PEEP 5 Resident Tracking Resident Involvement: Resident Care Provided Care Provided: Adult Hospital Medicine Resident Tracking Resident Involvement: Resident Care Provided Care Provided: Adult Hospital Medicine
[2016-10-10 12:06] LABS: BASO % 0.2 %; BASO ABS # 0.01 K/uL (0-0.2); COMPLETE YES; HEMATOCRIT 30.7 % (37-47); IG% 0.8 %; LYMPH % 9.8 %; LYMPH ABS # 0.59 K/uL (1.2-3.4); MEAN CORPUSCULAR HEMOGLOBIN 28.3 pg (25-34); MEAN CORPUSCULAR HGB CONC 32.9 g/dl (32-36); MEAN PLATELET VOLUME 10.9 fL (7.4-10.4); NEUT % 85.2 %; PLATELET COUNT 118 K/uL (130-400); RED BLOOD COUNT 3.57 M/uL (4.2-5.4); WHITE BLOOD COUNT 6.05 K/uL (4.8-10.8)
--- NOTE | 2016-10-10 12:11 | ECHOCARDIOGRAM REPORT ---
*NOTICE TO RECEIVING [employer] AGENCY This information is strictly Confidential and protected under [place] law. [place] law prohibits you from making any further disclosure of this information unless further disclosure is expressly permitted by the written consent of the person to whom it pertains or is authorized by law. A general authorization for the release of medical or other information is not sufficient for this purpose. Hospital accepts no responsibility if the information is made available to any other person, INCLUDING THE PATIENT. Interpretation Summary * Name: GRICELDA PEREZ Study Date: 10/10/2016 06:55 AM BP: 114/64 mmHg * Patient Location: .MSICU\S\E103\S\1 HR: 62 * : 1945 (M/d/yyyy) Gender: Female Height: 59 in * Age: 71 yrs Ethnicity: CA Weight: 126 lb * Ordering Physician: Jayme Marie * Referring Physician: Marti Vila * Performed By: Asuncion Montgomery * * Reason For Study: ACUTE SOB, QUERY CHF * BSA: 1.5 m2 * -- Conclusions -- * 1. Small left ventricular size with hyperdynamic systolic function. EF 65-70%. No regional wall motion abnormalities. Mild concentric left ventricular hypertrophy. Type I diastolic dysfunction. * 2. The left atrium is mildly dilated. * 3. At least mild mitral regurgitation. * 4. Technically difficult study; poor to fair image quality. * 5. Compared to prior study on 10/29/2015, similar findings. Procedure Details * The study was technically limited. * The study was technically difficult. * Limited views were obtained. * There were technical limitations due to patient'ssupine positioning while on mechanical ventilation * A contrast injection of Definity was performed to improve assessment of LV function. * Contrast was injected into an intravenous site in the central line. * One vial of Definity ultrasound contrast was diluted in normal saline to a total volume of 10 ml. A total of '2' ml of solution was administered during imaging. * Lot # [id number] of Definity utilized for procedure. * Expiration date 09/13. Left Ventricle * Small left ventricular size with hyperdynamic systolic function. EF 65-70%. No regional wall motion abnormalities. Mild concentric left ventricular hypertrophy. Type I diastolic dysfunction. Right Ventricle * The right ventricle is not well visualized. * The right ventricular systolic function is normal as assessed by tricuspid annular plane systolic excursion (TAPSE) (normal >1.5 cm). Atria * The left atrium is mildly dilated. * Right atrium not well visualized. * Interatrial septum not well visualized. Mitral Valve * The mitral valve leaflets appear thickened, but open well. * There is no mitral valve stenosis. * At least mild mitral regurgitation. Tricuspid Valve * The tricuspid valve is not well visualized. * There is no tricuspid stenosis. Aortic Valve * The aortic valve opens well. * The aortic valve is normal in structure and function. * No hemodynamically significant valvular aortic stenosis. * There is no significant aortic regurgitation. Pulmonic Valve * The pulmonary valve is inadequately visualized, but the Doppler data is adequate for interpretation. * There is no pulmonic valvular stenosis. * Trace pulmonic valvular regurgitation. Great Vessels * The aortic root is not well visualized. * Ascending aorta of normal dimension Pericardium/Pleural * There is no pericardial effusion. Great Vessels * IVC normal in size. Left Ventricular Diastolic Function * Grade I diastolic dysfunction, (abnormal relaxation pattern). MMode 2D Measurements and Calculations IVSd 1.2 cm LVIDd 3.3 cm LVIDs 2.3 cm LVPWd 1.3 cm IVS/LVPW 0.92 FS 30.7 % EDV(Teich) 44.3 ml ESV(Teich) 17.9 ml EF(Teich) 59.6 % EDV(cubed) 36.1 ml ESV(cubed) 12.0 ml EF(cubed) 66.8 % LV mass(C)d 130.4 grams LV mass(C)dI 86.1 grams/m\S\2 SV(Teich) 26.4 ml SI(Teich) 17.4 ml/m\S\2 SV(cubed) 24.1 ml SI(cubed) 15.9 ml/m\S\2 ACS 1.6 cm asc Aorta Diam 2.5 cm LVAd ap4 26.4 cm\S\2 LVLd ap4 7.9 cm EDV(MOD-sp4) 71.9 ml EDV(sp4-el) 75.5 ml LVAs ap4 13.1 cm\S\2 LVLs ap4 6.6 cm ESV(MOD-sp4) 21.3 ml ESV(sp4-el) 21.8 ml EF(MOD-sp4) 70.4 % EF(sp4-el) 71.1 % LVAd ap2 23.5 cm\S\2 LVLd ap2 8.1 cm EDV(MOD-sp2) 56.6 ml EDV(sp2-el) 57.9 ml LVAs ap2 12.0 cm\S\2 LVLs ap2 6.5 cm ESV(MOD-sp2) 19.2 ml ESV(sp2-el) 18.7 ml EF(MOD-sp2) 66.0 % EF(sp2-el) 67.7 % LVLd %diff 6.6 % EDV(MOD-bp) 68.7 ml LVLs %diff 2.8 % ESV(MOD-bp) 19.0 ml EF(MOD-bp) 72.4 % SV(MOD-sp4) 50.7 ml SI(MOD-sp4) 33.4 ml/m\S\2 SV(MOD-sp2) 37.4 ml SI(MOD-sp2) 24.7 ml/m\S\2 SV(MOD-bp) 49.7 ml SI(MOD-bp) 32.8 ml/m\S\2 SV(sp4-el) 53.7 ml SI(sp4-el) 35.4 ml/m\S\2 SV(sp2-el) 39.2 ml SI(sp2-el) 25.9 ml/m\S\2 Doppler Measurements and Calculations MV E max tiffanie 45.8 cm/sec MV A max tiffanie 97.6 cm/sec MV E/A 0.47 MV dec time 0.29 sec Ao V2 max 94.2 cm/sec Ao max PG 3.5 mmHg Ao max PG (full) 0.15 mmHg LV V1 max PG 3.4 mmHg LV V1 max 92.2 cm/sec TV E max tiffanie 53.4 cm/sec PA V2 max 48.0 cm/sec PA max PG 0.92 mmHg
--- NOTE | 2016-10-10 14:55 | CRITICAL CARE PROGRESS NOTE ---
DATE: 10/10/2016 ADDENDUM Please accept this as an addendum to the critical care progress note done today by Dr. Fischer. The patient's care was discussed in detail on multidisciplinary rounds. I have reviewed the vital signs, I's and O's, notes, medications, labs, microbiology data, imaging and other reports. I have also reviewed Dr. Fischer's note and agree in general with her impression and plan. I have personally examined the patient as well. Her exam is significant for being able to awaken and follow commands, but falling back asleep off sedation. She is presently on CPAP 5/5 40%. IMPRESSION: 1. Acute hypoxemic respiratory failure, it is unclear to me what the inciting event was, which led to her intubation. She had altered mental status and now has a developing left basilar infiltrate. 2. Metabolic encephalopathy, this could be medication or infection related. 3. Enterococcus faecium urinary tract infection, for which she has been receiving linezolid. 3. Chronic obstructive pulmonary disease. 4. Opioid dependence. PLAN: NEUROLOGIC: Hold sedation and do not resume it unless she is agitated or requires pain medication. PULMONARY: Spontaneous breathing trial daily. At this point, I do not think she is consistently awake enough for me to extubate, although she is doing well on CPAP. Continue bronchodilators and intravenous corticosteroids. Change Spiriva to Atrovent. CARDIOVASCULAR: Continue antihypertensives. Echocardiogram report was reviewed. Troponins are negative. HEME: No acute issues, follow up blood count did not show further decrease. No signs of active bleeding. RENAL: Consider resuming diuretics. ENDOCRINE: No active issues. GASTROINTESTINAL: Increased Fibersource to goal, as per dietary recommendations. INFECTIOUS DISEASE: Continue Levaquin and linezolid. She does have rare gram positive cocci on her BAL Gram stain from the right middle lobe. Should she develop sputum or grow something in culture, broaden antibiotics for better gram positive coverage. Discontinue Diflucan, which was started for thrush. Critical care time 40 minutes. MTDD
--- NOTE | 2016-10-10 15:44 | Progress Note ---
Subjective Date of Service: October 10, 2016. Subjective Pt evaluation today including: conversation w/ patient, physical exam, chart review, lab review, review of studies, review of inpatient medication list Pt intubated at this time No distress noted Resp distress overnight Unclear inciting event Problem List Medical Problems: (1) Altered mental status Status: Acute (2) Anemia Status: Acute (3) Bilateral pneumonia Status: Acute (4) CHF (congestive heart failure) Status: Acute (5) Chronic Kidney Disease, Stage Iii (Moderate) Status: Chronic (6) COPD exacerbation Status: Acute (7) COPD exacerbation Status: Acute (8) Crystal arthritis Status: Chronic (9) Duodenal bulb ulcer Status: Chronic (10) Failure of outpatient treatment Status: Acute (11) Failure of outpatient treatment Status: Acute (12) Gout Status: Chronic (13) Hyperlipidemia Nec/Nos Status: Chronic (14) Hypertension Status: Chronic (15) Hypoxemia Status: Acute (16) Hypoxia Status: Acute (17) Hypoxia Status: Acute (18) Hypoxia Status: Acute (19) Hypoxia Status: Acute (20) Lumbar compression fracture Status: Chronic (21) Opiate use Status: Chronic (22) Osteoporosis Status: Chronic (23) Peripheral edema Status: Acute (24) Pneumonia Status: Acute (25) Pneumonia Status: Acute (26) Pneumonia involving right lung Status: Acute (27) Respiratory acidosis Status: Acute (28) Respiratory distress Status: Acute (29) Right renal artery stenosis Status: Chronic (30) Secondary hyperparathyroidism Status: Chronic (31) UTI (urinary tract infection) Status: Acute Review of Systems Unable to obtain due to intubated state Objective Vital Signs Date Time Temp Pulse Resp B/P Pulse Ox O2 Delivery O2 Flow Rate FiO2 10/10/16 14:18 40 10/10/16 14:00 37.6 75 18 122/73 94 CPAP 40 Mechanical Ventilator 10/10/16 12:08 40 10/10/16 12:08 94 CPAP 40 Mechanical Ventilator 10/10/16 11:45 40 10/10/16 11:30 37.8 72 16 108/72 94 CPAP Mechanical Ventilator 10/10/16 11:00 37.8 78 16 118/77 95 Mechanical Ventilator 40 10/10/16 10:00 37.4 71 16 112/72 95 Mechanical Ventilator 40 10/10/16 08:00 40 10/10/16 08:00 Mechanical Ventilator 40 10/10/16 08:00 36.4 66 16 112/75 95 Mechanical Ventilator 40 10/10/16 08:00 95 Mechanical Ventilator 40 10/10/16 07:29 40 10/10/16 06:00 35.3 63 16 110/71 95 123/66 10/10/16 05:10 40 10/10/16 04:00 40 10/10/16 04:00 34.9 62 16 103/69 95 114/64 10/10/16 04:00 95 Mechanical Ventilator 40 10/10/16 02:31 34.7 59 16 93/60 95 10/10/16 02:20 50 10/10/16 02:00 60 15 110/65 97 10/10/16 01:31 60 16 112/59 97 10/10/16 01:00 65 16 109/64 95 10/10/16 00:31 66 16 111/68 94 10/10/16 00:00 97 Mechanical Ventilator 50 10/10/16 00:00 50 10/10/16 00:00 66 16 101/68 94 10/09/16 23:21 71 17 95/68 95 10/09/16 23:20 60 10/09/16 23:15 70 16 96/63 96 10/09/16 23:10 72 16 104/71 96 10/09/16 23:06 73 13 110/70 96 10/09/16 23:00 73 16 110/73 97 10/09/16 22:55 73 16 111/68 99 10/09/16 22:50 75 18 128/78 99 10/09/16 22:46 74 15 111/78 99 10/09/16 22:41 77 19 137/81 99 10/09/16 22:36 79 20 149/103 98 10/09/16 22:30 72 12 120/78 96 10/09/16 22:26 79 16 111/76 96 10/09/16 22:21 78 16 132/91 97 10/09/16 22:16 88 17 139/86 97 10/09/16 22:11 89 21 146/87 96 10/09/16 22:06 83 21 159/94 96 10/09/16 22:01 87 20 152/84 97 10/09/16 21:56 36.7 87 18 141/92 96 10/09/16 21:51 92 26 147/96 95 10/09/16 21:51 92 26 147/96 95 10/09/16 21:47 94 20 139/85 96 10/09/16 21:40 90 19 152/87 96 10/09/16 21:36 86 22 156/97 96 10/09/16 21:31 93 18 154/92 95 10/09/16 21:26 99 18 168/98 95 10/09/16 21:21 92 17 166/98 94 10/09/16 21:16 93 24 147/94 95 10/09/16 21:11 90 19 155/98 95 10/09/16 21:06 99 19 170/80 95 10/09/16 21:01 90 19 133/96 94 10/09/16 20:56 85 20 134/85 96 10/09/16 20:50 88 16 137/83 96 10/09/16 20:35 60 10/09/16 20:00 70 10/09/16 19:50 116 98 100 10/09/16 19:48 37.2 88 22 92 10/09/16 19:20 65 16 92 Diffusion Mask 6.0 10/09/16 16:34 37.2 89 20 174/85 92 Nasal Cannula 4.0 10/09/16 16:00 Nasal Cannula 4.0 Physical Exam General Appearance: WD/WN, no apparent distress Neck: supple, no adenopathy Respiratory/Chest: lungs clear, + decreased breath sounds Cardiovascular: no edema, no gallop Abdomen: non tender, soft Neurologic/Psychiatric: alert, oriented x 3 Laboratory Results Last 24 Hours Test 10/09/16 17:17 10/09/16 19:28 10/09/16 19:56 10/09/16 20:00 Bedside Glucose 83 mg/dl 100 mg/dl Blood Gas Sample Site L Radial Bedside Blood Gas pH (LAB) 7.26 Bedside Blood Gas pCO2 (LAB) 46 mmHg Bedside Blood Gas pO2 (LAB) 189 mmHg Bedside Blood Gas HCO3 (LAB) 20 meq/L Bedside Blood Gas Total CO2 22 mEq/l Bedside Blood Gas Base Excess (LAB) -7.0 meq/L Bedside Blood Gas O2 Saturation 99.0 % Leroy Test Pass Oxygen Delivery Device BIPAP Bedside Oxygen Rate (breaths/min) 12 Bedside FiO2 100 % Blood Gas IPAP 12 White Blood Count 18.69 K/uL Red Blood Count 4.30 M/uL Hemoglobin 12.1 g/dL Hematocrit 37.2 % Mean Corpuscular Volume 86.5 fL Mean Corpuscular Hemoglobin 28.1 pg Mean Corpuscular Hemoglobin Concent 32.5 g/dl Platelet Count 156 K/uL Mean Platelet Volume 10.3 fL Neutrophils (%) (Auto) 78.9 % Lymphocytes (%) (Auto) 9.7 % Monocytes (%) (Auto) 9.4 % Eosinophils (%) (Auto) 0.9 % Basophils (%) (Auto) 0.2 % Neutrophils # (Auto) 14.77 K/uL Lymphocytes # (Auto) 1.81 K/uL Monocytes # (Auto) 1.76 K/uL Eosinophils # (Auto) 0.16 K/uL Basophils # (Auto) 0.03 K/uL RDW Standard Deviation 52.4 fL RDW Coefficient of Variation 16.5 % Immature Granulocyte % (Auto) 0.9 % Immature Granulocyte # (Auto) 0.16 K/uL Sodium Level 139 mmol/L Potassium Level 3.7 mmol/L Chloride Level 109 mmol/L Carbon Dioxide Level 22 mmol/L Anion Gap 8.0 mmol/L Blood Urea Nitrogen 9 mg/dl Creatinine 1.10 mg/dl Est Creatinine Clear Calc Drug Dose 37.3 ml/min Estimated GFR () 59.3 Estimated GFR (Non- 51.2 BUN/Creatinine Ratio 7.9 Random Glucose 99 mg/dl Calcium Level 8.2 mg/dl Magnesium Level 1.5 mg/dl Total Bilirubin 0.4 mg/dl Aspartate Amino Transf (AST/SGOT) 26 U/L Alanine Aminotransferase (ALT/SGPT) 23 U/L Alkaline Phosphatase 156 U/L Troponin I 0.020 ng/ml Pro-B-Type Natriuretic Peptide 28072 pg/ml Total Protein 6.3 gm/dl Albumin 2.5 gm/dl Globulin 3.8 gm/dl Albumin/Globulin Ratio 0.7 Test 10/09/16 21:16 10/10/16 05:30 10/10/16 08:59 10/10/16 11:53 Lactic Acid Level 0.7 mmol/L 0.7 mmol/L Procalcitonin 0.11 ng/ml 0.63 ng/ml White Blood Count 6.22 K/uL 6.05 K/uL Red Blood Count 3.54 M/uL 3.57 M/uL Hemoglobin 9.8 g/dL 10.1 g/dL Hematocrit 30.3 % 30.7 % Mean Corpuscular Volume 85.6 fL 86.0 fL Mean Corpuscular Hemoglobin 27.7 pg 28.3 pg Mean Corpuscular Hemoglobin Concent 32.3 g/dl 32.9 g/dl Platelet Count 110 K/uL 118 K/uL Mean Platelet Volume 10.2 fL 10.9 fL Neutrophils (%) (Auto) 85.9 % 85.2 % Lymphocytes (%) (Auto) 10.6 % 9.8 % Monocytes (%) (Auto) 2.4 % 4.0 % Eosinophils (%) (Auto) 0.0 % 0.0 % Basophils (%) (Auto) 0.0 % 0.2 % Neutrophils # (Auto) 5.34 K/uL 5.16 K/uL Lymphocytes # (Auto) 0.66 K/uL 0.59 K/uL Monocytes # (Auto) 0.15 K/uL 0.24 K/uL Eosinophils # (Auto) 0.00 K/uL 0.00 K/uL Basophils # (Auto) 0.00 K/uL 0.01 K/uL RDW Standard Deviation 51.2 fL 52.6 fL RDW Coefficient of Variation 16.2 % 16.5 % Immature Granulocyte % (Auto) 1.1 % 0.8 % Immature Granulocyte # (Auto) 0.07 K/uL 0.05 K/uL Sodium Level 140 mmol/L Potassium Level 3.3 mmol/L Chloride Level 107 mmol/L Carbon Dioxide Level 25 mmol/L Anion Gap 8.0 mmol/L Blood Urea Nitrogen 9 mg/dl Creatinine 1.10 mg/dl Est Creatinine Clear Calc Drug Dose 37.3 ml/min Estimated GFR () 59.3 Estimated GFR (Non- 51.2 BUN/Creatinine Ratio 8.4 Random Glucose 139 mg/dl Calcium Level 7.5 mg/dl Phosphorus Level 3.5 mg/dl Magnesium Level 2.2 mg/dl Total Bilirubin 0.4 mg/dl Aspartate Amino Transf (AST/SGOT) 17 U/L Alanine Aminotransferase (ALT/SGPT) 16 U/L Alkaline Phosphatase 120 U/L Troponin I 0.026 ng/ml Total Protein 5.0 gm/dl Albumin 1.9 gm/dl Globulin 3.1 gm/dl Albumin/Globulin Ratio 0.6 Blood Gas Sample Site Art Line Bedside Blood Gas pH (LAB) 7.40 Bedside Blood Gas pCO2 (LAB) 35 mmHg Bedside Blood Gas pO2 (LAB) 73 mmHg Bedside Blood Gas HCO3 (LAB) 22 meq/L Bedside Blood Gas Total CO2 23 mEq/l Bedside Blood Gas Base Excess (LAB) -3.0 meq/L Bedside Blood Gas O2 Saturation 95.0 % Leroy Test NA Oxygen Delivery Device Ventilator Bedside Oxygen Rate (breaths/min) 16 Blood Gas Minute Ventilation 5.9 Bedside FiO2 40 % Blood Gas Tidal Volume 400 Blood Gas PEEP 5 Assessment and Plan 71 year old female from [facility] who presents to the ER for lethargy and altered mental state. She is on chronic opiates however did not respond to narcan given in the correction. Acute hypoxic resp failure Change in mental status, likely multi factorial possible accidental narcotics over dose hypoglycemia oral thrush B/L basal consolidation likely atelectasis VRE UTI Plan: currently intubated at this time, unsure of inciting event, ?VRE sepsis cont zyvox and started on levaquin with repeat cx metabolic encephalopathy likely from narcotic overuse restart on IV morphine at low dose and slowly titrate refused augmentin, awaiting ID recs, start on zyvox for VRE ordered Procalcitonin / blood and Ucx enterococcus faecium continue home meds Noted hypoglycemic episodes heparin SQ for DVT prophylaxis
--- NOTE | 2016-10-10 16:12 | Infectious Disease Progress Nt ---
Progress Note Date of Service October 10, 2016. Subjective Pt evaluation today including: conversation w/ patient, physical exam, chart review, lab review, review of studies, conversation w/ client consultant (Dr. Santiago), review of inpatient medication list Patient is currently intubated in ICU with acute hypoxic respiratory failure and VRE UTI. The patient is currently on Zyvox and Levaquin. Right upper lobe interstitial thickening noted on repeat CXR- representing likley congestive change, and bibasilar densities seen may represent pneumonia. She shakes her head yes to multiple questions but otherwise cannot answer ROS questions due to intubation. Urine culture grew very resistant VRE x 2. Additional Comments: Unable to obtain thorough ROS due to patient state Medications Current Inpatient Medications Medications (Trade) Dose Ordered Sig/Estephania Route Start Time Stop Time Status Last Admin Dose Admin Allopurinol (Zyloprim Tab) 100 mg BID PO 10/05/16 08:00 11/04/16 07:59 10/10/16 10:46 100 MG Amlodipine Besylate (Norvasc Tab) 10 mg DAILY PO 10/05/16 08:00 11/04/16 07:59 10/10/16 10:51 10 MG Baclofen (Lioresal Tab) 10 mg BID PO 10/05/16 08:00 11/04/16 07:59 10/10/16 10:46 10 MG Calcitonin [place] (Fortical Nasal [place]) 1 spray DAILY ERIC 10/05/16 08:00 11/04/16 07:59 10/10/16 10:48 1 SPRAY Carvedilol (Coreg Tab) 25 mg BID PO 10/05/16 08:00 11/04/16 07:59 10/10/16 10:45 25 MG Cholecalciferol (Vitamin D Tab) 2,000 inter.unit DAILY PO 10/05/16 08:00 11/04/16 07:59 10/10/16 10:44 2,000 INTER.UNIT Clonidine HCl (Sjdbxfwg-Mdf-1 0.2mg/24hr Patch) 2 patch [place]@1600 TD 10/09/16 16:00 11/08/16 15:59 10/09/16 16:11 2 PATCH Diclofenac Sodium (Voltaren 1% Top Gel) 1 appln QID EXT 10/05/16 08:00 11/04/16 07:59 10/10/16 13:00 1 APPLN Duloxetine HCl (Cymbalta Cap) 20 mg DAILY PO 10/05/16 08:00 11/04/16 07:59 Future Hold Salmeterol Xinafoate/ Fluticasone (Advair Diskus 250/50 Inh) 1 puff BID INH 10/05/16 08:00 11/04/16 07:59 10/08/16 07:54 1 PUFF Fluticasone Propionate (Flonase Nasal [place]) 1 sprays BID ERIC 10/05/16 08:00 11/04/16 07:59 10/10/16 10:48 1 SPRAYS Hydralazine HCl (Apresoline Tab) 75 mg TID PO 10/05/16 08:00 11/04/16 07:59 10/10/16 13:40 75 MG Latanoprost (Xalatan Oph Soln) 1 drops HS OPR 10/05/16 22:00 11/04/16 21:59 10/08/16 21:16 1 DROPS Lidocaine (Lidoderm Patch 5%) 1 patch DAILY TD 10/05/16 08:00 11/04/16 07:59 10/10/16 10:51 1 PATCH Magnesium Hydroxide (Milk Of Magnesia Susp) 30 ml DAILY PRN PO 10/05/16 05:15 11/04/16 05:14 Multivitamins (Multivitamin Tab) 1 tab DAILY PO 10/05/16 08:00 11/04/16 07:59 10/10/16 10:44 1 TAB Senna (Senokot Tab) 8.6 mg QAM PO 10/05/16 08:00 11/04/16 07:59 10/10/16 10:45 8.6 MG Miscellaneous (Remove Lidoderm Patch) 1 ea DAILY@21 N/A 10/05/16 21:00 11/04/16 20:59 10/07/16 20:08 1 EA Albuterol/ Ipratropium (Duoneb) 3 ml QIDR INH 10/05/16 08:00 11/04/16 07:59 10/09/16 19:20 3 ML Miscellaneous (Remove Clonidine Patch) 1 ea Q7D@1559 N/A 10/09/16 15:59 11/08/16 15:58 10/09/16 16:12 1 EA Miscellaneous Information (Check Clonidine Patch Placement) 1 ea QS N/A 10/05/16 08:00 11/04/16 07:59 10/09/16 21:41 1 EA Heparin Sodium (Porcine) (Heparin Sq 5000 Unit/0.5ml) 5,000 unit Q8 SQ 10/05/16 06:00 11/04/16 05:59 10/10/16 13:55 5,000 UNIT Sucralfate (Carafate Susp) 1 gm ACHS PO 10/05/16 06:30 11/04/16 06:29 10/10/16 11:00 1 GM Megestrol Acetate (Megace Susp) 400 mg QAM PO 10/05/16 08:00 11/04/16 07:59 10/10/16 10:47 400 MG Ondansetron HCl 4 mg 4 mg Q4H PRN IV 10/06/16 11:00 11/05/16 10:59 10/09/16 13:31 4 MG Promethazine HCl/ Sodium Chloride (Phenergan Inj/ Nss 50ml) 50.5 ml @ 204 mls/hr Q6H PRN IV 10/07/16 16:00 11/06/16 15:59 10/09/16 17:16 204 MLS/HR Hydralazine HCl (HydrALAZINE INJ) 10 mg Q4H PRN IV. 10/08/16 01:45 11/07/16 01:44 10/09/16 17:16 10 MG Tiotropium Lewis 1 puff 1 puff DAILY INH 10/09/16 08:00 11/08/16 07:59 Future Hold Linezolid 600 mg/ Prmx 300 ml @ 300 mls/hr Q12@0600,1800 IV 10/08/16 18:00 10/18/16 17:59 10/10/16 05:46 300 MLS/HR Pantoprazole Sodium 40 mg/ Syringe 10 ml @ 5 mls/min BID IV 10/08/16 22:00 11/07/16 21:59 10/10/16 10:35 5 MLS/MIN Methylprednisolone Sodium Succinate 40 mg/Syringe 0.64 ml @ 1.5 mls/min Q8 IV 10/10/16 06:00 11/09/16 05:59 10/10/16 13:41 1.5 MLS/MIN Fentanyl Citrate 250 ml @ 0 mls/hr Q0M IV 10/09/16 20:45 10/23/16 20:44 10/09/16 21:49 15 MLS/HR Levofloxacin/Prmx (Levaquin / D5W/ Premixed D5W) 150 ml @ 100 mls/hr Q48H IV 10/10/16 00:00 10/17/16 00:00 10/10/16 01:06 100 MLS/HR Enteral Nutritional Formula (Fibersource HN) 1,000 ml UD NG 10/10/16 00:15 11/09/16 00:14 Levofloxacin (Consult) 1 ea UD PRN N/A 10/10/16 02:00 11/09/16 01:59 Chlorhexidine Gluconate (Peridex Oral Soln 15ML Udp) 15 ml BID PO 10/10/16 09:00 11/09/16 08:59 10/10/16 10:46 15 ML Hydromorphone HCl (Dilaudid Inj) 2 mg Q4H PRN IV 10/10/16 15:15 10/24/16 15:14 Objective Vital Signs Date Time Temp Pulse Resp B/P Pulse Ox O2 Delivery O2 Flow Rate FiO2 10/10/16 14:18 40 10/10/16 14:00 37.6 75 18 122/73 94 CPAP 40 Mechanical Ventilator 10/10/16 12:08 40 10/10/16 12:08 94 CPAP 40 Mechanical Ventilator 10/10/16 11:45 40 10/10/16 11:30 37.8 72 16 108/72 94 CPAP Mechanical Ventilator 10/10/16 11:00 37.8 78 16 118/77 95 Mechanical Ventilator 40 10/10/16 10:00 37.4 71 16 112/72 95 Mechanical Ventilator 40 10/10/16 08:00 40 10/10/16 08:00 Mechanical Ventilator 40 10/10/16 08:00 36.4 66 16 112/75 95 Mechanical Ventilator 40 10/10/16 08:00 95 Mechanical Ventilator 40 10/10/16 07:29 40 10/10/16 06:00 35.3 63 16 110/71 95 123/66 10/10/16 05:10 40 10/10/16 04:00 40 10/10/16 04:00 34.9 62 16 103/69 95 114/64 10/10/16 04:00 95 Mechanical Ventilator 40 10/10/16 02:31 34.7 59 16 93/60 95 10/10/16 02:20 50 10/10/16 02:00 60 15 110/65 97 10/10/16 01:31 60 16 112/59 97 10/10/16 01:00 65 16 109/64 95 10/10/16 00:31 66 16 111/68 94 10/10/16 00:00 97 Mechanical Ventilator 50 10/10/16 00:00 50 10/10/16 00:00 66 16 101/68 94 10/09/16 23:21 71 17 95/68 95 10/09/16 23:20 60 10/09/16 23:15 70 16 96/63 96 10/09/16 23:10 72 16 104/71 96 10/09/16 23:06 73 13 110/70 96 10/09/16 23:00 73 16 110/73 97 10/09/16 22:55 73 16 111/68 99 10/09/16 22:50 75 18 128/78 99 10/09/16 22:46 74 15 111/78 99 10/09/16 22:41 77 19 137/81 99 10/09/16 22:36 79 20 149/103 98 10/09/16 22:30 72 12 120/78 96 10/09/16 22:26 79 16 111/76 96 10/09/16 22:21 78 16 132/91 97 10/09/16 22:16 88 17 139/86 97 10/09/16 22:11 89 21 146/87 96 10/09/16 22:06 83 21 159/94 96 10/09/16 22:01 87 20 152/84 97 10/09/16 21:56 36.7 87 18 141/92 96 10/09/16 21:51 92 26 147/96 95 10/09/16 21:51 92 26 147/96 95 10/09/16 21:47 94 20 139/85 96 10/09/16 21:40 90 19 152/87 96 10/09/16 21:36 86 22 156/97 96 10/09/16 21:31 93 18 154/92 95 10/09/16 21:26 99 18 168/98 95 10/09/16 21:21 92 17 166/98 94 10/09/16 21:16 93 24 147/94 95 10/09/16 21:11 90 19 155/98 95 10/09/16 21:06 99 19 170/80 95 10/09/16 21:01 90 19 133/96 94 10/09/16 20:56 85 20 134/85 96 10/09/16 20:50 88 16 137/83 96 10/09/16 20:35 60 10/09/16 20:00 70 10/09/16 19:50 116 98 100 10/09/16 19:48 37.2 88 22 92 10/09/16 19:20 65 16 92 Diffusion Mask 6.0 10/09/16 16:34 37.2 89 20 174/85 92 Nasal Cannula 4.0 Physical Exam General Appearance: + pertinent finding (Intubated, lethargic) Eyes: normal inspection, sclerae normal ENT: hearing grossly normal Neck: supple, trachea midline Respiratory/Chest: chest non-tender, + pertinent finding (intubated, ventilated ) Cardiovascular: regular rate, rhythm Abdomen: normal bowel sounds Extremities: + swelling (1-2+ pitting edema of b/l LE) Neurologic/Psychiatric: + pertinent finding (lethargic) Skin: normal color, warm/dry, no rash Laboratory Results RUN DATE: 10/07/16 [facility] LAB PAGE 1 RUN TIME: 7760 Specimen Inquiry PATIENT: GRICELDA PEREZ LOC: [id number] U # : [id number] AGE/SX: 71/F ROOM: W452 REG : 10/04/[address]: Marvel Barron D.O : 1945 BED: 1 DIS : STATUS: ADM IN TLOC: SPEC #: [id number] CINDY: 10/04/16 STATUS: COMP REQ #: [id number] RECD: 10/04/[address]: Manule Serna DO SOURCE: URINE CATH ENTR: 10/04/[address] [facility] [address]: Marti Vila [facility]: ORDERED: CULTURE UR CATH Procedure Result Verified Site URINE CULTURE Final 10/07/16-5221 Organism 1 ENTEROCOCCUS FAECIUM COLONY COUNT >100,000 CFU/ml SENS SENSITIVITY TO FOLLOW +MIX PLUS LOW COUNTS OTHER MIXED ZEE Organism 2 ENTEROCOCCUS FAECIUM#2 COLONY COUNT >100,000 CFU/ml SENS NO SENSITIVITY TO FOLLOW SENSITIVITY RESULT INDICATES A VANCOMYCIN RESISTANT ENTEROCOCCI SPECIES. Phoned to [facility] (ABDOUL ARGUELLES) on 10/07/16 at 1435 by Kishan Gaitan. Results were verbalized back to [facility]IK[facility]. RESULTS WERE ALSO CALLED TO [facility] INFE[facility] CONTROL ANSWERING MACHINE ON 10/07/16 BY CHIKIS. IDENTIFICATION AND SUSCEPTIBILITY TESTING HAVE CONFIRMED THE TWO ORGANISMS PREVIOUSLY REPORTED ARE THE SAME ORGANISM. NO SUSCEPTIBILITY RESULTS WILL BE GENERATED ON THE SECOND ISOLATE. 1. ENTEROCOCCUS FAECIUM Target Route Dose RX AB Cost M.I.C. IQ ------ ----- ------ -- ------ -------- - ------ AMPICILLIN R >8 GENT SYNERGY R >500 VANCOMYCIN R * >16 PENICILLIN R >8 TETRACYCLINE R >8 CIPROFLOXACIN R >2 LEVOFLOXACIN R >4 NITROFURANTOIN S <=32 STREP SYNERGY S <=1000 Streptomycin Synergy Screen S Gentamicin Synergy Screen R S = SENSITIVE I = INTERMEDIATE R = RESISTANT Item Value Date Time MRSA DNA Surveillance Screen - Final Complete 10/05/16 0837 Nasal Specimen Negative for MRSA by DNA Probe Blood Culture - Preliminary Resulted 10/04/162346 Blood NO GROWTH TO DATE. Blood Culture - Preliminary Resulted 10/04/16 2340 Blood NO GROWTH TO DATE. Fungal Smear - Final Resulted 10/09/162232 Bronchial Washings Right Middle Lobe Gram Stain - Final Resulted 10/09/162232 Bronchial Washings Right Middle Lobe Fungal Smear - Final Resulted 10/09/162232 Bronchial Washings Left Lingula Acid Fast Stain Received 10/09/162232 Bronchial Washings Left Lingula Pending Gram Stain - Final Resulted 10/09/162232 Bronchial Washings Left Lingula Blood Culture - Final Complete 10/04/16 2347 Blood NO GROWTH Blood Culture - Final Complete 10/04/16 2340 Blood NO GROWTH Urine Culture - Final Complete 10/04/16 2030 Urine,Catheterized Enterococcus Faecium Last 24 Hours Test 10/09/16 17:17 10/09/16 19:28 10/09/16 19:56 10/09/16 20:00 Bedside Glucose 83 mg/dl 100 mg/dl Blood Gas Sample Site L Radial Bedside Blood Gas pH (LAB) 7.26 Bedside Blood Gas pCO2 (LAB) 46 mmHg Bedside Blood Gas pO2 (LAB) 189 mmHg Bedside Blood Gas HCO3 (LAB) 20 meq/L Bedside Blood Gas Total CO2 22 mEq/l Bedside Blood Gas Base Excess (LAB) -7.0 meq/L Bedside Blood Gas O2 Saturation 99.0 % Leroy Test Pass Oxygen Delivery Device BIPAP Bedside Oxygen Rate (breaths/min) 12 Bedside FiO2 100 % Blood Gas IPAP 12 White Blood Count 18.69 K/uL Red Blood Count 4.30 M/uL Hemoglobin 12.1 g/dL Hematocrit 37.2 % Mean Corpuscular Volume 86.5 fL Mean Corpuscular Hemoglobin 28.1 pg Mean Corpuscular Hemoglobin Concent 32.5 g/dl Platelet Count 156 K/uL Mean Platelet Volume 10.3 fL Neutrophils (%) (Auto) 78.9 % Lymphocytes (%) (Auto) 9.7 % Monocytes (%) (Auto) 9.4 % Eosinophils (%) (Auto) 0.9 % Basophils (%) (Auto) 0.2 % Neutrophils # (Auto) 14.77 K/uL Lymphocytes # (Auto) 1.81 K/uL Monocytes # (Auto) 1.76 K/uL Eosinophils # (Auto) 0.16 K/uL Basophils # (Auto) 0.03 K/uL RDW Standard Deviation 52.4 fL RDW Coefficient of Variation 16.5 % Immature Granulocyte % (Auto) 0.9 % Immature Granulocyte # (Auto) 0.16 K/uL Sodium Level 139 mmol/L Potassium Level 3.7 mmol/L Chloride Level 109 mmol/L Carbon Dioxide Level 22 mmol/L Anion Gap 8.0 mmol/L Blood Urea Nitrogen 9 mg/dl Creatinine 1.10 mg/dl Est Creatinine Clear Calc Drug Dose 37.3 ml/min Estimated GFR () 59.3 Estimated GFR (Non- 51.2 BUN/Creatinine Ratio 7.9 Random Glucose 99 mg/dl Calcium Level 8.2 mg/dl Magnesium Level 1.5 mg/dl Total Bilirubin 0.4 mg/dl Aspartate Amino Transf (AST/SGOT) 26 U/L Alanine Aminotransferase (ALT/SGPT) 23 U/L Alkaline Phosphatase 156 U/L Troponin I 0.020 ng/ml Pro-B-Type Natriuretic Peptide 30293 pg/ml Total Protein 6.3 gm/dl Albumin 2.5 gm/dl Globulin 3.8 gm/dl Albumin/Globulin Ratio 0.7 Test 10/09/16 21:16 10/10/16 05:30 10/10/16 08:59 10/10/16 11:53 Lactic Acid Level 0.7 mmol/L 0.7 mmol/L Procalcitonin 0.11 ng/ml 0.63 ng/ml White Blood Count 6.22 K/uL 6.05 K/uL Red Blood Count 3.54 M/uL 3.57 M/uL Hemoglobin 9.8 g/dL 10.1 g/dL Hematocrit 30.3 % 30.7 % Mean Corpuscular Volume 85.6 fL 86.0 fL Mean Corpuscular Hemoglobin 27.7 pg 28.3 pg Mean Corpuscular Hemoglobin Concent 32.3 g/dl 32.9 g/dl Platelet Count 110 K/uL 118 K/uL Mean Platelet Volume 10.2 fL 10.9 fL Neutrophils (%) (Auto) 85.9 % 85.2 % Lymphocytes (%) (Auto) 10.6 % 9.8 % Monocytes (%) (Auto) 2.4 % 4.0 % Eosinophils (%) (Auto) 0.0 % 0.0 % Basophils (%) (Auto) 0.0 % 0.2 % Neutrophils # (Auto) 5.34 K/uL 5.16 K/uL Lymphocytes # (Auto) 0.66 K/uL 0.59 K/uL Monocytes # (Auto) 0.15 K/uL 0.24 K/uL Eosinophils # (Auto) 0.00 K/uL 0.00 K/uL Basophils # (Auto) 0.00 K/uL 0.01 K/uL RDW Standard Deviation 51.2 fL 52.6 fL RDW Coefficient of Variation 16.2 % 16.5 % Immature Granulocyte % (Auto) 1.1 % 0.8 % Immature Granulocyte # (Auto) 0.07 K/uL 0.05 K/uL Sodium Level 140 mmol/L Potassium Level 3.3 mmol/L Chloride Level 107 mmol/L Carbon Dioxide Level 25 mmol/L Anion Gap 8.0 mmol/L Blood Urea Nitrogen 9 mg/dl Creatinine 1.10 mg/dl Est Creatinine Clear Calc Drug Dose 37.3 ml/min Estimated GFR () 59.3 Estimated GFR (Non- 51.2 BUN/Creatinine Ratio 8.4 Random Glucose 139 mg/dl Calcium Level 7.5 mg/dl Phosphorus Level 3.5 mg/dl Magnesium Level 2.2 mg/dl Total Bilirubin 0.4 mg/dl Aspartate Amino Transf (AST/SGOT) 17 U/L Alanine Aminotransferase (ALT/SGPT) 16 U/L Alkaline Phosphatase 120 U/L Troponin I 0.026 ng/ml Total Protein 5.0 gm/dl Albumin 1.9 gm/dl Globulin 3.1 gm/dl Albumin/Globulin Ratio 0.6 Blood Gas Sample Site Art Line Bedside Blood Gas pH (LAB) 7.40 Bedside Blood Gas pCO2 (LAB) 35 mmHg Bedside Blood Gas pO2 (LAB) 73 mmHg Bedside Blood Gas HCO3 (LAB) 22 meq/L Bedside Blood Gas Total CO2 23 mEq/l Bedside Blood Gas Base Excess (LAB) -3.0 meq/L Bedside Blood Gas O2 Saturation 95.0 % Leroy Test NA Oxygen Delivery Device Ventilator Bedside Oxygen Rate (breaths/min) 16 Blood Gas Minute Ventilation 5.9 Bedside FiO2 40 % Blood Gas Tidal Volume 400 Blood Gas PEEP 5 Assessment and Plan (1) Acute respiratory failure with hypoxia (2) Altered mental status Status: Acute (3) UTI (urinary tract infection) Patient with acute confusion, respiratory failure, and VRE UTI with questionable bibasilar pneumonia/pneumonitis. She is currently on IV Zyvox and Levaquin. Recommend change from Levaquin to IV Zosyn for concerns of aspiration pneumonia/pneumonitis with bibasilar opacities. Continue to follow CXR to resolution. Also continue Zyvox to complete 7-10 days for UTI. We will follow. PROVIDER ADDENDUM: The patient reviewed with Ms. Smith. Agree with above assessment.
[2016-10-10] MEDS ORDERED: PIPERACILL/TAZOBAC IV 4.5 GM in DEXTROSE 5% 100ML 100 ML IV ONE (16:30)
[2016-10-10] MEDS ORDERED: PIPERACILL/TAZOBAC CONSULT ACTIVE PRN (16:30)
[2016-10-10] MEDS ORDERED: CLONIDINE HCL 0.2 MG/24 HR TRANSDERM SYS TD SCH (21:00)
[2016-10-10] MEDS: LATANOPROST 0.005% OP SOLN 2.5 ML BTL OPR SCH (21:41)
[2016-10-10] MEDS: PIPERACILL/TAZOBAC IV 4.5 GM in DEXTROSE 5% 100ML IV SCH (21:42)
[2016-10-10] MEDS: HYDROmorphone INJ 2 MG/ML SYR/VIAL IV PRN (22:05)
[2016-10-11] VITALS (17 sets, daily range): BP systolic 97–141; BP diastolic 62–85; PULSE 74–92; TEMP 36.8–37.5; O2SAT 91–96
[2016-10-11] MEDS: CHECK CLONIDINE PATCH PLACEMENT SCH ×3 (00:48→16:00)
[2016-10-11] MEDS: HYDROmorphone INJ 2 MG/ML SYR/VIAL IV PRN ×2 (02:18→21:20)
[2016-10-11 05:45] LABS: BASO % 0.1 %; BASO ABS # 0.01 K/uL (0-0.2); COMPLETE YES; HEMATOCRIT 29.6 % (37-47); IG% 0.6 %; LYMPH % 9.4 %; LYMPH ABS # 0.85 K/uL (1.2-3.4); MEAN CELL VOLUME 84.6 fL (80-100); MEAN CORPUSCULAR HGB CONC 33.1 g/dl (32-36); MEAN PLATELET VOLUME 10.8 fL (7.4-10.4); MONO % 5.9 %; PLATELET COUNT 132 K/uL (130-400); WHITE BLOOD COUNT 9.08 K/uL (4.8-10.8)
[2016-10-11] MEDS: PIPERACILL/TAZOBAC IV 4.5 GM in DEXTROSE 5% 100ML IV SCH ×3 (06:05→21:01)
[2016-10-11] MEDS: LINEZOLID / D5W 600 MG in PREMIXED IN D5W 300 ML IV SCH ×2 (06:05→17:47)
[2016-10-11] MEDS: METHYLPREDNISOLONE IV 40 MG in SYRINGE 0 ML IV SCH ×2 (06:06→12:32)
[2016-10-11] MEDS: HEPARIN SOD 5000 UNIT/0.5 ML CARP SQ SCH ×3 (06:06→21:02)
[2016-10-11 06:29] LABS: BUN/CREATININE RATIO 11.3 (10-20); CALCIUM 8.1 mg/dl (8.5-10.1); CREATININE 1.4 mg/dl (0.60-1.20); MAGNESIUM 1.9 mg/dl (1.8-2.4); POTASSIUM 3.2 mmol/L (3.5-5.1)
[2016-10-11 06:31] LABS: ALB/GLOB RATIO 0.7 (0.9-2); PHOSPHORUS 3.5 mg/dl (2.5-4.9)
--- NOTE | 2016-10-11 07:08 | DIAGNOSTIC IMAGING REPORT ---
CHEST ONE VIEW PORTABLE CLINICAL HISTORY: lower lobe densities dyspnea COMPARISON STUDY: 10/10/2016 FINDINGS: Endotracheal tube 2 cm above the ramandeep. Right base is considered clear. Persistent increase in density left base although slightly improved from the prior study. IMPRESSION: Mildly improved infiltrative versus effusion-type change left base. Lungs otherwise are clear. Endotracheal tube 2 cm above the ramandeep. Electronically signed by: Klever June M.D. 10/11/2016 7:07 AM Dictated Date/Time: 10/11/2016 7:06 AM
[2016-10-11] MEDS: FLUTICASONE PROPIONATE NA SPR 16 GM BTL NAE SCH ×2 (07:46→20:56)
[2016-10-11] MEDS: LIDODERM (LIDOCAINE) PATCH 5% TD SCH (07:46)
[2016-10-11] MEDS: CALCITONIN SALMON NA 200 IU/AC 3.7 ML BTL NAE SCH (07:46)
[2016-10-11] MEDS: SUCRALFATE 1 GM/10 ML UDC PO SCH ×4 (07:47→20:57)
[2016-10-11] MEDS: PANTOprazole INJ 40 MG in SYRINGE 0 ML IV SCH (07:47)
[2016-10-11] MEDS: CHLORHEXIDINE GLUCONATE 0.12% 15 ML UDP PO SCH (07:47)
[2016-10-11] MEDS: DICLOFENAC SOD 1% GEL 100 GM TUBE EXT SCH ×4 (07:47→21:00)
[2016-10-11] MEDS: MEGESTROL ACETATE SUSP 400 MG/10 ML UDC PO SCH (07:47)
[2016-10-11] MEDS: SENNA 8.6 MG TAB PO SCH (07:48)
[2016-10-11] MEDS: AMLODIPINE BESYLATE 5 MG TAB PO SCH (07:48)
[2016-10-11] MEDS: ALLOPURINOL 100 MG TAB PO SCH ×2 (07:48→20:59)
[2016-10-11] MEDS: CHOLECALCIFEROL 1000 INTER.UNIT TAB PO SCH (07:48)
[2016-10-11] MEDS: CARVEDILOL 25 MG TAB PO SCH ×2 (07:49→20:58)
[2016-10-11] MEDS: MULTIVITAMIN TAB PO SCH (07:49)
[2016-10-11] MEDS: BACLOFEN 10 MG TAB PO SCH ×2 (07:49→20:57)
[2016-10-11] MEDS ORDERED: POTASSIUM CHLORIDE 20 MEQ/15 ML UDC PO ONE (08:00)
[2016-10-11] MEDS: FLUTICASONE/SALMETEROL 250/50 (ADVAIR) 14 PUFF/1 INHALER INH SCH ×2 (08:41→20:55)
[2016-10-11] MEDS ORDERED: FUROSEMIDE INJ 40 MG in SYRINGE 0 ML IV SCH (09:00)
--- NOTE | 2016-10-11 09:31 | Infectious Disease Progress Nt ---
Progress Note Date of Service October 11, 2016. Subjective Pt evaluation today including: conversation w/ patient, physical exam, chart review, lab review, review of studies, conversation w/ research consultant, review of inpatient medication list Patient is feeling better this morning. She is still currently intubated but is much more awake today. Her WBC count is 9.08 this morning. Creatinine increased to 1.4. CXR showed mildly improved infiltrative change of the left base and her ET tube in place. Repeat blood cultures showing NGTD. I discussed this patient briefly with Dr. Santiago- anticipating removal of ET tube this morning. Bronch washing cultures pending. All Other Systems: Reviewed and Negative Medications Current Inpatient Medications Medications (Trade) Dose Ordered Sig/Estephania Route Start Time Stop Time Status Last Admin Dose Admin Allopurinol (Zyloprim Tab) 100 mg BID PO 10/05/16 08:00 11/04/16 07:59 10/11/16 07:48 100 MG Amlodipine Besylate (Norvasc Tab) 10 mg DAILY PO 10/05/16 08:00 11/04/16 07:59 10/11/16 07:48 10 MG Baclofen (Lioresal Tab) 10 mg BID PO 10/05/16 08:00 11/04/16 07:59 10/11/16 07:49 10 MG Calcitonin [place] (Fortical Nasal [place]) 1 spray DAILY ERIC 10/05/16 08:00 11/04/16 07:59 10/11/16 07:46 1 SPRAY Carvedilol (Coreg Tab) 25 mg BID PO 10/05/16 08:00 11/04/16 07:59 10/11/16 07:49 25 MG Cholecalciferol (Vitamin D Tab) 2,000 inter.unit DAILY PO 10/05/16 08:00 11/04/16 07:59 10/11/16 07:48 2,000 INTER.UNIT Diclofenac Sodium (Voltaren 1% Top Gel) 1 appln QID EXT 10/05/16 08:00 11/04/16 07:59 10/11/16 07:47 1 APPLN Duloxetine HCl (Cymbalta Cap) 20 mg DAILY PO 10/05/16 08:00 11/04/16 07:59 Future Hold Salmeterol Xinafoate/ Fluticasone (Advair Diskus 250/50 Inh) 1 puff BID INH 10/05/16 08:00 11/04/16 07:59 10/08/16 07:54 1 PUFF Fluticasone Propionate (Flonase Nasal [place]) 1 sprays BID ERIC 10/05/16 08:00 11/04/16 07:59 10/11/16 07:46 1 SPRAYS Hydralazine HCl (Apresoline Tab) 75 mg TID PO 10/05/16 08:00 11/04/16 07:59 10/11/16 07:49 75 MG Latanoprost (Xalatan Oph Soln) 1 drops HS OPR 10/05/16 22:00 11/04/16 21:59 10/10/16 21:41 1 DROPS Lidocaine (Lidoderm Patch 5%) 1 patch DAILY TD 10/05/16 08:00 11/04/16 07:59 10/11/16 07:46 1 PATCH Magnesium Hydroxide (Milk Of Magnesia Susp) 30 ml DAILY PRN PO 10/05/16 05:15 11/04/16 05:14 Multivitamins (Multivitamin Tab) 1 tab DAILY PO 10/05/16 08:00 11/04/16 07:59 10/11/16 07:49 1 TAB Senna (Senokot Tab) 8.6 mg QAM PO 10/05/16 08:00 11/04/16 07:59 10/11/16 07:48 8.6 MG Miscellaneous (Remove Lidoderm Patch) 1 ea DAILY@21 N/A 10/05/16 21:00 11/04/16 20:59 10/07/16 20:08 1 EA Albuterol/ Ipratropium (Duoneb) 3 ml QIDR INH 10/05/16 08:00 11/04/16 07:59 10/09/16 19:20 3 ML Miscellaneous (Remove Clonidine Patch) 1 ea Q7D@1559 N/A 10/09/16 15:59 11/08/16 15:58 10/09/16 16:12 1 EA Miscellaneous Information (Check Clonidine Patch Placement) 1 ea QS N/A 10/05/16 08:00 11/04/16 07:59 10/11/16 08:41 1 EA Heparin Sodium (Porcine) (Heparin Sq 5000 Unit/0.5ml) 5,000 unit Q8 SQ 10/05/16 06:00 11/04/16 05:59 10/11/16 06:06 5,000 UNIT Sucralfate (Carafate Susp) 1 gm ACHS PO 10/05/16 06:30 11/04/16 06:29 10/11/16 07:47 1 GM Megestrol Acetate (Megace Susp) 400 mg QAM PO 10/05/16 08:00 11/04/16 07:59 10/11/16 07:47 400 MG Ondansetron HCl 4 mg 4 mg Q4H PRN IV 10/06/16 11:00 11/05/16 10:59 10/09/16 13:31 4 MG Promethazine HCl/ Sodium Chloride (Phenergan Inj/ Nss 50ml) 50.5 ml @ 204 mls/hr Q6H PRN IV 10/07/16 16:00 11/06/16 15:59 10/09/16 17:16 204 MLS/HR Hydralazine HCl (HydrALAZINE INJ) 10 mg Q4H PRN IV. 10/08/16 01:45 11/07/16 01:44 10/09/16 17:16 10 MG Tiotropium [place] 1 puff 1 puff DAILY INH 10/09/16 08:00 11/08/16 07:59 Future Hold Linezolid 600 mg/ Prmx 300 ml @ 300 mls/hr Q12@0600,1800 IV 10/08/16 18:00 10/18/16 17:59 10/11/16 06:05 300 MLS/HR Pantoprazole Sodium 40 mg/ Syringe 10 ml @ 5 mls/min BID IV 10/08/16 22:00 11/07/16 21:59 10/11/16 07:47 5 MLS/MIN Methylprednisolone Sodium Succinate 40 mg/Syringe 0.64 ml @ 1.5 mls/min Q8 IV 10/10/16 06:00 11/09/16 05:59 10/11/16 06:06 1.5 MLS/MIN Fentanyl Citrate (Fentanyl Drip 1250MCG/250 Nss) 250 ml @ 0 mls/hr Q0M IV 10/09/16 20:45 10/23/16 20:44 10/09/16 21:49 15 MLS/HR Enteral Nutritional Formula (Fibersource HN) 1,000 ml UD NG 10/10/16 00:15 11/09/16 00:14 Chlorhexidine Gluconate (Peridex Oral Soln 15ML Udp) 15 ml BID PO 10/10/16 09:00 11/09/16 08:59 10/11/16 07:47 15 ML Hydromorphone HCl (Dilaudid Inj) 2 mg Q4H PRN IV 10/10/16 15:15 10/24/16 15:14 10/11/16 02:18 2 MG Piperacillin Sod/ Tazobactam Sod 1 ea 1 ea UD PRN N/A 10/10/16 16:30 11/09/16 16:29 Piperacillin Sod/ Tazobactam Sod/ Dextrose (Zosyn Iv/D5 100ml) 120 ml @ 30 mls/hr Q8H IV 10/10/16 22:00 10/17/16 21:59 10/11/16 06:05 30 MLS/HR Clonidine HCl (Lwghldnw-Umv-1 0.2mg/24hr Patch) 2 patch Mo@2100 TD 10/10/16 21:00 11/09/16 20:59 10/10/16 21:37 2 PATCH Heparin Sodium (Porcine) 5 ml 5 ml PRN PRN FLUSH 10/11/16 02:00 11/10/16 01:59 Furosemide/Syringe (Lasix Inj/ Syringe) 4 ml @ 4 mls/min TODAY@0900 IV 10/11/16 09:00 10/11/16 10:00 10/11/16 07:48 4 MLS/MIN Objective Vital Signs Date Time Temp Pulse Resp B/P Pulse Ox O2 Delivery O2 Flow Rate FiO2 10/11/16 06:00 37.4 76 11 126/77 95 124/62 10/11/16 05:20 40 10/11/16 05:00 37.3 79 18 136/85 96 10/11/16 04:00 40 10/11/16 04:00 Mechanical Ventilator 40 10/11/16 04:00 37.3 74 17 119/78 96 138/66 10/11/16 02:00 37.4 77 20 119/80 95 121/63 10/11/16 01:35 40 10/11/16 01:00 37.4 76 20 120/75 95 10/11/16 00:00 37.3 81 18 124/73 95 10/10/16 23:59 40 10/10/16 23:59 Mechanical Ventilator 40 10/10/16 23:01 37.4 74 16 105/64 94 10/10/16 23:00 37.4 70 16 95 10/10/16 22:30 40 10/10/16 22:00 37.4 75 16 132/78 95 Mechanical Ventilator 112/55 10/10/16 20:00 94 Mechanical Ventilator 40 10/10/16 20:00 40 10/10/16 20:00 37.5 70 16 105/69 94 Mechanical Ventilator 40 116/60 10/10/16 19:00 40 10/10/16 18:12 40 10/10/16 18:00 37.4 71 16 110/70 94 Mechanical Ventilator 40 10/10/16 16:00 40 10/10/16 16:00 37.4 81 16 101/66 94 Mechanical Ventilator 40 10/10/16 16:00 Mechanical Ventilator 40 10/10/16 15:01 40 10/10/16 14:18 40 10/10/16 14:00 37.6 75 18 122/73 94 CPAP 40 Mechanical Ventilator 10/10/16 12:08 40 10/10/16 12:08 94 CPAP 40 Mechanical Ventilator 10/10/16 11:45 40 10/10/16 11:30 37.8 72 16 108/72 94 CPAP Mechanical Ventilator 10/10/16 11:00 37.8 78 16 118/77 95 Mechanical Ventilator 40 10/10/16 10:00 37.4 71 16 112/72 95 Mechanical Ventilator 40 Physical Exam General Appearance: WD/WN, no apparent distress Eyes: normal inspection, sclerae normal ENT: hearing grossly normal Neck: supple, trachea midline Respiratory/Chest: no respiratory distress, no accessory muscle use, + decreased breath sounds (left base), + pertinent finding (ET tube in place) Cardiovascular: regular rate, rhythm Abdomen: normal bowel sounds, soft Extremities: + pertinent finding (right hand with mild edema) Neurologic/Psychiatric: alert, normal mood/affect Skin: normal color, warm/dry, no rash Laboratory Results Item Value Date Time Blood Culture - Preliminary Resulted 10/10/16214 Blood NO GROWTH TO DATE. Blood Culture - Preliminary Resulted 10/10/16 0210 Blood NO GROWTH TO DATE. Fungal Smear - Final Resulted 10/09/16 2233 Bronchial Washings Right Middle Lobe Gram Stain - Final Resulted 10/09/16 2233 Bronchial Washings Right Middle Lobe Fungal Smear - Final Resulted 10/09/16 2233 Bronchial Washings Left Lingula Acid Fast Stain Received 10/09/16 2233 Bronchial Washings Left Lingula Pending Gram Stain - Final Resulted 10/09/16 2233 Bronchial Washings Left Lingula CHEST ONE VIEW PORTABLE CLINICAL HISTORY: lower lobe densities dyspnea COMPARISON STUDY: 10/10/2016 FINDINGS: Endotracheal tube 2 cm above the rmaandeep. Right base is considered clear. Persistent increase in density left base although slightly improved from the prior study. IMPRESSION: Mildly improved infiltrative versus effusion-type change left base. Lungs otherwise are clear. Endotracheal tube 2 cm above the ramandeep. Last 24 Hours Test 10/10/16 11:53 10/10/16 20:30 10/11/16 05:30 White Blood Count 6.05 K/uL 9.08 K/uL Red Blood Count 3.57 M/uL 3.50 M/uL Hemoglobin 10.1 g/dL 9.8 g/dL Hematocrit 30.7 % 29.6 % Mean Corpuscular Volume 86.0 fL 84.6 fL Mean Corpuscular Hemoglobin 28.3 pg 28.0 pg Mean Corpuscular Hemoglobin Concent 32.9 g/dl 33.1 g/dl Platelet Count 118 K/uL 132 K/uL Mean Platelet Volume 10.9 fL 10.8 fL Neutrophils (%) (Auto) 85.2 % 84.0 % Lymphocytes (%) (Auto) 9.8 % 9.4 % Monocytes (%) (Auto) 4.0 % 5.9 % Eosinophils (%) (Auto) 0.0 % 0.0 % Basophils (%) (Auto) 0.2 % 0.1 % Neutrophils # (Auto) 5.16 K/uL 7.63 K/uL Lymphocytes # (Auto) 0.59 K/uL 0.85 K/uL Monocytes # (Auto) 0.24 K/uL 0.54 K/uL Eosinophils # (Auto) 0.00 K/uL 0.00 K/uL Basophils # (Auto) 0.01 K/uL 0.01 K/uL RDW Standard Deviation 52.6 fL 49.1 fL RDW Coefficient of Variation 16.5 % 15.9 % Immature Granulocyte % (Auto) 0.8 % 0.6 % Immature Granulocyte # (Auto) 0.05 K/uL 0.05 K/uL Troponin I 0.023 ng/ml Sodium Level 138 mmol/L Potassium Level 3.2 mmol/L Chloride Level 104 mmol/L Carbon Dioxide Level 25 mmol/L Anion Gap 9.0 mmol/L Blood Urea Nitrogen 16 mg/dl Creatinine 1.40 mg/dl Est Creatinine Clear Calc Drug Dose 30.9 ml/min Estimated GFR () 44.3 Estimated GFR (Non- 38.2 BUN/Creatinine Ratio 11.3 Random Glucose 102 mg/dl Lactic Acid Level 0.8 mmol/L Calcium Level 8.1 mg/dl Phosphorus Level 3.5 mg/dl Magnesium Level 1.9 mg/dl Total Bilirubin 0.4 mg/dl Aspartate Amino Transf (AST/SGOT) 17 U/L Alanine Aminotransferase (ALT/SGPT) 17 U/L Alkaline Phosphatase 110 U/L Total Protein 5.2 gm/dl Albumin 2.1 gm/dl Globulin 3.1 gm/dl Albumin/Globulin Ratio 0.7 Procalcitonin 0.85 ng/ml Assessment and Plan (1) Acute respiratory failure with hypoxia (2) Altered mental status Status: Acute (3) UTI (urinary tract infection) Patient with acute confusion, respiratory failure, and VRE UTI with questionable bibasilar pneumonia/pneumonitis. She is currently on IV Zyvox and Zosyn. Continue current abx therapy, likely for 7-10 days total pending improvement, may be able to transition to PO therapy. Continue to follow CXR to resolution. We will follow. PROVIDER ADDENDUM: Patient reviewed with Ms. Smith. Agree with above assessment.
--- NOTE | 2016-10-11 10:45 | Critical Care Progress Note ---
Critical Care Progress Note Date of Service October 11, 2016. Attending Dr. Jack Ro 71-year-old female with past medical history of PKD stage III, gout, hyperlipidemia, hypertension, perforated duodenal ulcer, COPD, bilateral renal artery stenosis status post left MARITZA stent, osteoporosis with compression fractures, secondary hyperparathyroidism who is a resident of [facility] presented to the ER after mental status on 10/04/2016 and treated empirically for complicated UTI secondary to VRE. She was transferred to the ICU last night due to respiratory distress . Chest x-ray had revealed bibasilar densities, ABG - acidotic at 7.26 and was intubated and she also underwent bronchoscopy and samples were sent for culture and Gram stain, cytology, fungal elements, and AFB stain and culture. CPAP trial was done yesterday and she had been on the CPAP since about 5:30 AM this morning and has been tolerating it okay. She was alert and oriented, and responded to questions appropriately Objective GENERAL: Patient is in no acute distress. NECK: ET tube in place, Right IJ LUNGS: Clear to auscultation bilaterally, no wheeze, no rhonchi, breath sounds equal. HEART: Without murmurs gallops or rubs, regular rate and rhythm. ABDOMEN: Soft, nontender, bowel sounds positive, no hernias, no peritonitis. EXTREMITIES: b/l pedal edema NEUROLOGIC: responds to voice and follows commands SKIN: No rash, no jaundice, no diaphoresis. Assessment & Plan 71-year-old female with past medical history of CKD stage III, gout, hyperlipidemia, hypertension, perforated duodenal ulcer, COPD, bilateral renal artery stenosis status post left MARITZA stent, osteoporosis with compression fractures, secondary hyperparathyroidism who is a resident of [facility] presented to the ER after mental status on 10/04/2016 and treated empirically for complicated UTI secondary to VRE. She was transferred to the ICU last night due to respiratory distress . s/p intubation and currently on a mechanical ventilator and plan to extubate today and as she had been tolerating CPAP since 5:30 AM this morning. Neuro: responding to commands, CAM negative - Sedation: off of all sedation - RASS: 0 - pain control with fentanyl and Dilaudid PRN CVS: - BP: currently stable ranging in 110s-120s systolic, Goal MAP>65 h/o HTN with MARITZA , s/p stenting in left RA: - continue hydralazine, carvedilol, amlodipine, clonidine and labetalol PRN Troponins trended- negative Echo: * 1. Small left ventricular size with hyperdynamic systolic function. EF 65-70 %. No regional wall motion abnormalities. Mild concentric left ventricular hypertrophy. Type I diastolic dysfunction. * 2. The left atrium is mildly dilated. * 3. At least mild mitral regurgitation. * 4. Technically difficult study; poor to fair image quality. * 5. Compared to prior study on 10/29/2015, similar findings. RESPIRATORY - CPAP 09/30 currently, plan to extubate today - Possible Pneumonia: s/p bronchoscopy, cultures pending CXR: Mildly improved infiltrative versus effusion-type change left base. Lungs otherwise are clear. Endotracheal tube 2 cm above the ramandeep. - Levaquin switched to Zosyn per ID - History of COPD Continue DuoNeb, Advair Continue 40 mg Solu-Medrol 3 times a day, and taper as tolerated GI/FEN: - OJ tube- continue tube feeds with fiber source - GI prophylaxis: Protonix BID - Bowel regimen RENAL: Monitor Is and Os- positive fluid, Lasix 40 mEq given this morning - Cr at 1.1, monitor Cr Electrolytes: Hypokalemia: K at 3.2, repleted ID: Procalcitonin at 0.85 lactate at 0.7 Possible pneumonia: - Continue Zosyn Complicated UTI: sec to VRE: - Continue linezolid ( day 7 for a total of 10 days ) Heme: - WBC 9.08, improved from 2 days ago, 18 K DVT Prophylaxis: Heparin 5000 units every 8h Full code Dispo: Monitor in ICU Arterial line Dc today walker dc later in the afternoon extubate Resident Physician Supervision Note/Stretching Press Operator Attending I interviewed and examined the patient. Discussed with Dr. Fischer and agree with findings in her note. Please see my dictated addendum for further details and clarifications. Thank you. Documented By: Erin Santiago Consults & Procedures Consultants: Stretching Press Operator Procedures: Intubation, Bronchoscopy Data Medications: Current Inpatient Medications Medications (Trade) Dose Ordered Sig/Estephania Route Start Time Stop Time Status Last Admin Dose Admin Allopurinol (Zyloprim Tab) 100 mg BID PO 10/05/16 08:00 11/04/16 07:59 10/11/16 07:48 100 MG Amlodipine Besylate (Norvasc Tab) 10 mg DAILY PO 10/05/16 08:00 11/04/16 07:59 10/11/16 07:48 10 MG Baclofen (Lioresal Tab) 10 mg BID PO 10/05/16 08:00 11/04/16 07:59 10/11/16 07:49 10 MG Calcitonin [place] (Fortical Nasal [place]) 1 spray DAILY ERIC 10/05/16 08:00 11/04/16 07:59 10/11/16 07:46 1 SPRAY Carvedilol (Coreg Tab) 25 mg BID PO 10/05/16 08:00 11/04/16 07:59 10/11/16 07:49 25 MG Cholecalciferol (Vitamin D Tab) 2,000 inter.unit DAILY PO 10/05/16 08:00 11/04/16 07:59 10/11/16 07:48 2,000 INTER.UNIT Diclofenac Sodium (Voltaren 1% Top Gel) 1 appln QID EXT 10/05/16 08:00 11/04/16 07:59 10/11/16 07:47 1 APPLN Duloxetine HCl (Cymbalta Cap) 20 mg DAILY PO 10/05/16 08:00 11/04/16 07:59 Future Hold Salmeterol Xinafoate/ Fluticasone (Advair Diskus 250/50 Inh) 1 puff BID INH 10/05/16 08:00 11/04/16 07:59 10/08/16 07:54 1 PUFF Fluticasone Propionate (Flonase Nasal [place]) 1 sprays BID ERIC 10/05/16 08:00 11/04/16 07:59 10/11/16 07:46 1 SPRAYS Hydralazine HCl (Apresoline Tab) 75 mg TID PO 10/05/16 08:00 11/04/16 07:59 10/11/16 07:49 75 MG Latanoprost (Xalatan Oph Soln) 1 drops HS OPR 10/05/16 22:00 11/04/16 21:59 10/10/16 21:41 1 DROPS Lidocaine (Lidoderm Patch 5%) 1 patch DAILY TD 10/05/16 08:00 11/04/16 07:59 10/11/16 07:46 1 PATCH Magnesium Hydroxide (Milk Of Magnesia Susp) 30 ml DAILY PRN PO 10/05/16 05:15 11/04/16 05:14 Multivitamins (Multivitamin Tab) 1 tab DAILY PO 10/05/16 08:00 11/04/16 07:59 10/11/16 07:49 1 TAB Senna (Senokot Tab) 8.6 mg QAM PO 10/05/16 08:00 11/04/16 07:59 10/11/16 07:48 8.6 MG Miscellaneous (Remove Lidoderm Patch) 1 ea DAILY@21 N/A 10/05/16 21:00 11/04/16 20:59 10/07/16 20:08 1 EA Albuterol/ Ipratropium (Duoneb) 3 ml QIDR INH 10/05/16 08:00 11/04/16 07:59 10/09/16 19:20 3 ML Miscellaneous (Remove Clonidine Patch) 1 ea Q7D@1559 N/A 10/09/16 15:59 11/08/16 15:58 10/09/16 16:12 1 EA Miscellaneous Information (Check Clonidine Patch Placement) 1 ea QS N/A 10/05/16 08:00 11/04/16 07:59 10/11/16 08:41 1 EA Heparin Sodium (Porcine) (Heparin Sq 5000 Unit/0.5ml) 5,000 unit Q8 SQ 10/05/16 06:00 11/04/16 05:59 10/11/16 06:06 5,000 UNIT Sucralfate (Carafate Susp) 1 gm ACHS PO 10/05/16 06:30 11/04/16 06:29 10/11/16 10:12 1 GM Megestrol Acetate (Megace Susp) 400 mg QAM PO 10/05/16 08:00 11/04/16 07:59 10/11/16 07:47 400 MG Ondansetron HCl 4 mg 4 mg Q4H PRN IV 10/06/16 11:00 11/05/16 10:59 10/09/16 13:31 4 MG Promethazine HCl/ Sodium Chloride (Phenergan Inj/ Nss 50ml) 50.5 ml @ 204 mls/hr Q6H PRN IV 10/07/16 16:00 11/06/16 15:59 10/09/16 17:16 204 MLS/HR Hydralazine HCl (HydrALAZINE INJ) 10 mg Q4H PRN IV. 10/08/16 01:45 11/07/16 01:44 10/09/16 17:16 10 MG Tiotropium [place] 1 puff 1 puff DAILY INH 10/09/16 08:00 11/08/16 07:59 Future Hold Linezolid 600 mg/ Prmx 300 ml @ 300 mls/hr Q12@0600,1800 IV 10/08/16 18:00 10/18/16 17:59 10/11/16 06:05 300 MLS/HR Pantoprazole Sodium 40 mg/ Syringe 10 ml @ 5 mls/min BID IV 10/08/16 22:00 11/07/16 21:59 10/11/16 07:47 5 MLS/MIN Methylprednisolone Sodium Succinate 40 mg/Syringe 0.64 ml @ 1.5 mls/min Q8 IV 10/10/16 06:00 11/09/16 05:59 10/11/16 06:06 1.5 MLS/MIN Fentanyl Citrate (Fentanyl Drip 1250MCG/250 Nss) 250 ml @ 0 mls/hr Q0M IV 10/09/16 20:45 10/23/16 20:44 10/09/16 21:49 15 MLS/HR Enteral Nutritional Formula (Fibersource HN) 1,000 ml UD NG 10/10/16 00:15 11/09/16 00:14 Chlorhexidine Gluconate (Peridex Oral Soln 15ML Udp) 15 ml BID PO 10/10/16 09:00 11/09/16 08:59 10/11/16 07:47 15 ML Hydromorphone HCl (Dilaudid Inj) 2 mg Q4H PRN IV 10/10/16 15:15 10/24/16 15:14 10/11/16 02:18 2 MG Piperacillin Sod/ Tazobactam Sod 1 ea 1 ea UD PRN N/A 10/10/16 16:30 11/09/16 16:29 Piperacillin Sod/ Tazobactam Sod/ Dextrose (Zosyn Iv/D5 100ml) 120 ml @ 30 mls/hr Q8H IV 5/15/17 22:00 10/17/16 21:59 10/11/16 06:05 30 MLS/HR Clonidine HCl (Itkxdnzu-Vuv-2 0.2mg/24hr Patch) 2 patch Mo@2100 TD 10/10/16 21:00 11/09/16 20:59 10/10/16 21:37 2 PATCH Heparin Sodium (Porcine) (Heparin 10 Unit/ ml 5 ml Flush) 5 ml PRN PRN FLUSH 10/11/16 02:00 11/10/16 01:59 I & O: 24-Hour Column 10/11/16 07:58 Intake Total 585 ml Output Total 1075 ml Balance -490 ml Vital Signs: Date Time Temp Pulse Resp B/P Pulse Ox O2 Delivery O2 Flow Rate FiO2 10/11/16 10:08 37.4 74 18 141/76 94 Nasal Cannula 4.0 10/11/16 08:00 37.5 84 20 139/82 94 CPAP 40 Mechanical Ventilator 10/11/16 08:00 40 10/11/16 08:00 Mechanical Ventilator 40 10/11/16 07:45 40 10/11/16 06:00 37.4 76 11 126/77 95 124/62 10/11/16 05:20 40 10/11/16 05:00 37.3 79 18 136/85 96 10/11/16 04:00 40 10/11/16 04:00 Mechanical Ventilator 40 10/11/16 04:00 37.3 74 17 119/78 96 138/66 10/11/16 02:00 37.4 77 20 119/80 95 121/63 10/11/16 01:35 40 10/11/16 01:00 37.4 76 20 120/75 95 10/11/16 00:00 37.3 81 18 124/73 95 10/10/16 23:59 40 10/10/16 23:59 Mechanical Ventilator 40 10/10/16 23:01 37.4 74 16 105/64 94 10/10/16 23:00 37.4 70 16 95 10/10/16 22:30 40 10/10/16 22:00 37.4 75 16 132/78 95 Mechanical Ventilator 112/55 10/10/16 20:00 94 Mechanical Ventilator 40 10/10/16 20:00 40 10/10/16 20:00 37.5 70 16 105/69 94 Mechanical Ventilator 40 116/60 10/10/16 19:00 40 10/10/16 18:12 40 10/10/16 18:00 37.4 71 16 110/70 94 Mechanical Ventilator 40 10/10/16 16:00 40 10/10/16 16:00 37.4 81 16 101/66 94 Mechanical Ventilator 40 10/10/16 16:00 Mechanical Ventilator 40 10/10/16 15:01 40 10/10/16 14:18 40 10/10/16 14:00 37.6 75 18 122/73 94 CPAP 40 Mechanical Ventilator 10/10/16 12:08 40 10/10/16 12:08 94 CPAP 40 Mechanical Ventilator 10/10/16 11:45 40 10/10/16 11:30 37.8 72 16 108/72 94 CPAP Mechanical Ventilator 10/10/16 11:00 37.8 78 16 118/77 95 Mechanical Ventilator 40 Laboratory Results: Last 24 Hours Test 10/10/16 11:53 10/10/16 20:30 10/11/16 05:30 White Blood Count 6.05 K/uL 9.08 K/uL Red Blood Count 3.57 M/uL 3.50 M/uL Hemoglobin 10.1 g/dL 9.8 g/dL Hematocrit 30.7 % 29.6 % Mean Corpuscular Volume 86.0 fL 84.6 fL Mean Corpuscular Hemoglobin 28.3 pg 28.0 pg Mean Corpuscular Hemoglobin Concent 32.9 g/dl 33.1 g/dl Platelet Count 118 K/uL 132 K/uL Mean Platelet Volume 10.9 fL 10.8 fL Neutrophils (%) (Auto) 85.2 % 84.0 % Lymphocytes (%) (Auto) 9.8 % 9.4 % Monocytes (%) (Auto) 4.0 % 5.9 % Eosinophils (%) (Auto) 0.0 % 0.0 % Basophils (%) (Auto) 0.2 % 0.1 % Neutrophils # (Auto) 5.16 K/uL 7.63 K/uL Lymphocytes # (Auto) 0.59 K/uL 0.85 K/uL Monocytes # (Auto) 0.24 K/uL 0.54 K/uL Eosinophils # (Auto) 0.00 K/uL 0.00 K/uL Basophils # (Auto) 0.01 K/uL 0.01 K/uL RDW Standard Deviation 52.6 fL 49.1 fL RDW Coefficient of Variation 16.5 % 15.9 % Immature Granulocyte % (Auto) 0.8 % 0.6 % Immature Granulocyte # (Auto) 0.05 K/uL 0.05 K/uL Troponin I 0.023 ng/ml Sodium Level 138 mmol/L Potassium Level 3.2 mmol/L Chloride Level 104 mmol/L Carbon Dioxide Level 25 mmol/L Anion Gap 9.0 mmol/L Blood Urea Nitrogen 16 mg/dl Creatinine 1.40 mg/dl Est Creatinine Clear Calc Drug Dose 30.9 ml/min Estimated GFR () 44.3 Estimated GFR (Non- 38.2 BUN/Creatinine Ratio 11.3 Random Glucose 102 mg/dl Lactic Acid Level 0.8 mmol/L Calcium Level 8.1 mg/dl Phosphorus Level 3.5 mg/dl Magnesium Level 1.9 mg/dl Total Bilirubin 0.4 mg/dl Aspartate Amino Transf (AST/SGOT) 17 U/L Alanine Aminotransferase (ALT/SGPT) 17 U/L Alkaline Phosphatase 110 U/L Total Protein 5.2 gm/dl Albumin 2.1 gm/dl Globulin 3.1 gm/dl Albumin/Globulin Ratio 0.7 Procalcitonin 0.85 ng/ml Resident Tracking Resident Involvement: Resident Care Provided Care Provided: Adult [facility]
[2016-10-11] MEDS: ALBUT/IPRATROP 3MG/0.5MG NEB 3 ML VIAL INH SCH ×3 (10:54→20:16)
--- NOTE | 2016-10-11 11:13 | Progress Note ---
Subjective Date of Service: October 11, 2016. Subjective Pt evaluation today including: conversation w/ patient, physical exam, chart review, lab review, review of studies, review of inpatient medication list Problem List Medical Problems: (1) Altered mental status Status: Acute (2) Anemia Status: Acute (3) Bilateral pneumonia Status: Acute (4) CHF (congestive heart failure) Status: Acute (5) Chronic Kidney Disease, Stage Iii (Moderate) Status: Chronic (6) COPD exacerbation Status: Acute (7) COPD exacerbation Status: Acute (8) Crystal arthritis Status: Chronic (9) Duodenal bulb ulcer Status: Chronic (10) Failure of outpatient treatment Status: Acute (11) Failure of outpatient treatment Status: Acute (12) Gout Status: Chronic (13) Hyperlipidemia Nec/Nos Status: Chronic (14) Hypertension Status: Chronic (15) Hypoxemia Status: Acute (16) Hypoxia Status: Acute (17) Hypoxia Status: Acute (18) Hypoxia Status: Acute (19) Hypoxia Status: Acute (20) Lumbar compression fracture Status: Chronic (21) Opiate use Status: Chronic (22) Osteoporosis Status: Chronic (23) Peripheral edema Status: Acute (24) Pneumonia Status: Acute (25) Pneumonia Status: Acute (26) Pneumonia involving right lung Status: Acute (27) Respiratory acidosis Status: Acute (28) Respiratory distress Status: Acute (29) Right renal artery stenosis Status: Chronic (30) Secondary hyperparathyroidism Status: Chronic (31) UTI (urinary tract infection) Status: Acute Objective Vital Signs Date Time Temp Pulse Resp B/P Pulse Ox O2 Delivery O2 Flow Rate FiO2 10/11/16 10:57 74 22 96 Nasal Cannula 4.0 10/11/16 10:08 37.4 74 18 141/76 94 Nasal Cannula 4.0 10/11/16 08:00 37.5 84 20 139/82 94 CPAP 40 Mechanical Ventilator 10/11/16 08:00 40 10/11/16 08:00 Mechanical Ventilator 40 10/11/16 08:00 Mechanical Ventilator 40 10/11/16 07:45 40 10/11/16 06:00 37.4 76 11 126/77 95 124/62 10/11/16 05:20 40 10/11/16 05:00 37.3 79 18 136/85 96 10/11/16 04:00 40 10/11/16 04:00 Mechanical Ventilator 40 10/11/16 04:00 37.3 74 17 119/78 96 138/66 10/11/16 02:00 37.4 77 20 119/80 95 121/63 10/11/16 01:35 40 10/11/16 01:00 37.4 76 20 120/75 95 10/11/16 00:00 37.3 81 18 124/73 95 10/10/16 23:59 40 10/10/16 23:59 Mechanical Ventilator 40 10/10/16 23:01 37.4 74 16 105/64 94 10/10/16 23:00 37.4 70 16 95 10/10/16 22:30 40 10/10/16 22:00 37.4 75 16 132/78 95 Mechanical Ventilator 112/55 10/10/16 20:00 94 Mechanical Ventilator 40 10/10/16 20:00 40 10/10/16 20:00 37.5 70 16 105/69 94 Mechanical Ventilator 40 116/60 10/10/16 19:00 40 10/10/16 18:12 40 10/10/16 18:00 37.4 71 16 110/70 94 Mechanical Ventilator 40 10/10/16 16:00 40 10/10/16 16:00 37.4 81 16 101/66 94 Mechanical Ventilator 40 10/10/16 16:00 Mechanical Ventilator 40 10/10/16 15:01 40 10/10/16 14:18 40 10/10/16 14:00 37.6 75 18 122/73 94 CPAP 40 Mechanical Ventilator 10/10/16 12:08 40 10/10/16 12:08 94 CPAP 40 Mechanical Ventilator 10/10/16 11:45 40 10/10/16 11:30 37.8 72 16 108/72 94 CPAP Mechanical Ventilator Physical Exam General Appearance: WD/WN, no apparent distress Neck: supple, no adenopathy Respiratory/Chest: chest non-tender, + decreased breath sounds Cardiovascular: no gallop, no JVD Abdomen: non tender, soft Extremities: non-tender, + pedal edema Neurologic/Psychiatric: alert, oriented x 3 Laboratory Results Last 24 Hours Test 10/10/16 11:53 10/10/16 20:30 10/11/16 05:30 White Blood Count 6.05 K/uL 9.08 K/uL Red Blood Count 3.57 M/uL 3.50 M/uL Hemoglobin 10.1 g/dL 9.8 g/dL Hematocrit 30.7 % 29.6 % Mean Corpuscular Volume 86.0 fL 84.6 fL Mean Corpuscular Hemoglobin 28.3 pg 28.0 pg Mean Corpuscular Hemoglobin Concent 32.9 g/dl 33.1 g/dl Platelet Count 118 K/uL 132 K/uL Mean Platelet Volume 10.9 fL 10.8 fL Neutrophils (%) (Auto) 85.2 % 84.0 % Lymphocytes (%) (Auto) 9.8 % 9.4 % Monocytes (%) (Auto) 4.0 % 5.9 % Eosinophils (%) (Auto) 0.0 % 0.0 % Basophils (%) (Auto) 0.2 % 0.1 % Neutrophils # (Auto) 5.16 K/uL 7.63 K/uL Lymphocytes # (Auto) 0.59 K/uL 0.85 K/uL Monocytes # (Auto) 0.24 K/uL 0.54 K/uL Eosinophils # (Auto) 0.00 K/uL 0.00 K/uL Basophils # (Auto) 0.01 K/uL 0.01 K/uL RDW Standard Deviation 52.6 fL 49.1 fL RDW Coefficient of Variation 16.5 % 15.9 % Immature Granulocyte % (Auto) 0.8 % 0.6 % Immature Granulocyte # (Auto) 0.05 K/uL 0.05 K/uL Troponin I 0.023 ng/ml Sodium Level 138 mmol/L Potassium Level 3.2 mmol/L Chloride Level 104 mmol/L Carbon Dioxide Level 25 mmol/L Anion Gap 9.0 mmol/L Blood Urea Nitrogen 16 mg/dl Creatinine 1.40 mg/dl Est Creatinine Clear Calc Drug Dose 30.9 ml/min Estimated GFR () 44.3 Estimated GFR (Non- 38.2 BUN/Creatinine Ratio 11.3 Random Glucose 102 mg/dl Lactic Acid Level 0.8 mmol/L Calcium Level 8.1 mg/dl Phosphorus Level 3.5 mg/dl Magnesium Level 1.9 mg/dl Total Bilirubin 0.4 mg/dl Aspartate Amino Transf (AST/SGOT) 17 U/L Alanine Aminotransferase (ALT/SGPT) 17 U/L Alkaline Phosphatase 110 U/L Total Protein 5.2 gm/dl Albumin 2.1 gm/dl Globulin 3.1 gm/dl Albumin/Globulin Ratio 0.7 Procalcitonin 0.85 ng/ml Assessment and Plan 71 year old female from [facility] who presents to the ER for lethargy and altered mental state. She is on chronic opiates however did not respond to narcan given in the detention. Acute hypoxic resp failure Change in mental status, likely multi factorial possible accidental narcotics over dose hypoglycemia oral thrush B/L basal consolidation likely atelectasis VRE UTI Plan: currently on CPAP settings at this time, unsure of inciting event, ?VRE sepsis likely for extubation today cont zyvox and zosyn per ID recs Lasix given PRN edema metabolic encephalopathy likely from narcotic overuse restart on IV morphine at low dose and slowly titrate ordered Procalcitonin / blood and Ucx enterococcus faecium continue home meds Noted hypoglycemic episodes heparin SQ for DVT prophylaxis
--- NOTE | 2016-10-11 11:52 | CRITICAL CARE PROGRESS NOTE ---
DATE: 10/11/2016 ADDENDUM Please accept this as an addendum to the progress note done earlier today by Dr. Fischer. The patient's care was discussed in detail on multidisciplinary rounds. I have reviewed the vital signs, I's and O's, notes, medications, labs, microbiology data, imaging, pathology and other reports. I have also reviewed Dr. Fischer's note and agree in general with her plan. Any clarification or additions will be noted here. There were no acute events overnight, and after my evaluation today, the patient was successfully extubated to 4 liters nasal cannula. She was not having any significant endotracheal tube secretions prior to extubation. PHYSICAL EXAMINATION: VITAL SIGNS: Significant for a maximum temperature of 37.8 degrees yesterday and blood pressure which has been under relatively good control. 24-hour fluid balance is negative 459 mL. My exam is consistent with that documented by Dr. Fischer. LABORATORY DATA: Shows white blood cell count of 9.08 and platelets of 132, potassium 3.2, creatinine up to 1.4, procalcitonin 0.85. IMPRESSION: 1. Acute hypoxemic respiratory failure which may have been secondary to altered mental status or encephalopathy. It is still unclear to me whether she had a new or ongoing infectious process which affected her mental status and her respiratory status or if perhaps her mental status changes and encephalopathy led to respiratory insufficiency. She has improved with broadening of her antibiotics and ventilator support. 2. Enterococcus faecium urinary tract infection, on linezolid. 3. Possible aspiration pneumonia. Chest x-ray is improving. 4. Acute kidney injury. 5. History of chronic obstructive pulmonary disease, treating now for an acute exacerbation secondary to her respiratory failure. 6. History of opioid dependence. She was also on Ativan as an outpatient. I have cut back her opioids dramatically compared to what she was receiving at home. She is at risk for withdrawal but has not had any agitation since she has been in the intensive care unit. PLAN: Neurologic: Continue p.r.n. IV Dilaudid and watch for any evidence of withdrawal. Continue to hold benzodiazepines. Pulmonary: She is extubated. Resume Spiriva and continue bronchodilators. Taper steroids and continue Zosyn. Cardiovascular: Continue outpatient antihypertensive medication regimen. Gastrointestinal: Advance diet and change Protonix to the enteral form. Escalate bowel regimen. Renal: Diuresis with Lasix. Follow electrolytes and avoid nephrotoxins. Infectious Disease: Continue Zosyn and linezolid. Many thanks to the infectious disease service for their assistance in her care. Miscellaneous: Discontinue arterial line and possibly White catheter later today. Triple lumen catheter should also be discontinued in the next day or two. Physical therapy and occupational therapy consults. Please call me with any questions or concerns. Critical care time 40 minutes. MTDD
--- NOTE | 2016-10-11 12:35 | Clinical Documentation Query ---
SHIN Dill : CLINICAL DOCUMENTATION QUERY Documentation includes note of fiberoptic bronchoscopy performed 10/09 in the setting of respiratory failure. Documentation includes "bronchoalveolar lavage". In order to capture this important clinical procedure, the site of BAL must be documented by the provider as this cannot be assumed by the professional traveling inventory associate. Thank you. In your clinical opinion, did your patient undergo: BAL of left lingula as ordered on BAL cytology ( ) BAL, bilateral lungs, all lobes X( ) Other explanation of clinical findings (Please Explain) BAL of left lingula as ordered on BAL cytology ( ) Unable to determine (Please Define) ( ) Need to Discuss ( ) Not Agree The medical record reflects the following clinical findings, treatment, and risk factors. Clinical Indicators: As above Treatment: n/a Risk Factors: n/a Please clarify and document your clinical opinion in the progress notes and discharge summary. Terms such as "probable", "suspected", "likely", "questionable", "possible", or "still to be ruled out" are acceptable. IF IN AGREEMENT, YOU MUST DOCUMENT ABOVE DIAGNOSTIC STATEMENT IN DAILY PROGRESS NOTES AND DISCHARGE SUMMARY. This document is not part of the patient's record. Thank You, Shin Benitez, RN [phone]
[2016-10-11] MEDS: LATANOPROST 0.005% OP SOLN 2.5 ML BTL OPR SCH (20:56)
[2016-10-11] MEDS: PANTOprazole SOD 40 MG TAB PO SCH (20:59)
[2016-10-11] MEDS: METHYLPREDNISOLONE IV 20 MG in SYRINGE 0 ML IV SCH (20:59)
[2016-10-11] MEDS: ZOLPIDEM TARTRATE 5 MG TAB PO PRN (23:44)
[2016-10-12] VITALS (13 sets, daily range): BP systolic 90–147; BP diastolic 54–82; PULSE 62–92; TEMP 36.8–37.2; O2SAT 91–95
[2016-10-12] MEDS: CHECK CLONIDINE PATCH PLACEMENT SCH ×3 (00:07→16:00)
[2016-10-12 05:50] LABS: HEMATOCRIT 27.4 % (37-47); MEAN CELL VOLUME 84.3 fL (80-100); MEAN CORPUSCULAR HEMOGLOBIN 27.4 pg (25-34); MEAN CORPUSCULAR HGB CONC 32.5 g/dl (32-36); MEAN PLATELET VOLUME 11.5 fL (7.4-10.4); PLATELET COUNT 158 K/uL (130-400); RED BLOOD COUNT 3.25 M/uL (4.2-5.4); WHITE BLOOD COUNT 13.18 K/uL (4.8-10.8)
[2016-10-12] MEDS: PIPERACILL/TAZOBAC IV 4.5 GM in DEXTROSE 5% 100ML IV SCH ×3 (06:07→21:49)
[2016-10-12] MEDS: LINEZOLID / D5W 600 MG in PREMIXED IN D5W 300 ML IV SCH ×2 (06:07→18:24)
[2016-10-12] MEDS: METHYLPREDNISOLONE IV 20 MG in SYRINGE 0 ML IV SCH (06:07)
[2016-10-12] MEDS: HEPARIN SOD 5000 UNIT/0.5 ML CARP SQ SCH ×2 (06:08→18:25)
[2016-10-12 06:26] LABS: BUN/CREATININE RATIO 13.9 (10-20); CALCIUM 7.5 mg/dl (8.5-10.1); CREATININE 1.6 mg/dl (0.60-1.20); POTASSIUM 2.7 mmol/L (3.5-5.1)
[2016-10-12] MEDS: ALBUT/IPRATROP 3MG/0.5MG NEB 3 ML VIAL INH SCH ×4 (07:47→19:46)
[2016-10-12] MEDS: POTASSIUM CHLORIDE 20 MEQ TABCR PO SCH ×2 (08:21→20:43)
[2016-10-12] MEDS: BACLOFEN 10 MG TAB PO SCH ×2 (08:22→20:44)
[2016-10-12] MEDS: SENNA 8.6 MG TAB PO SCH (08:22)
[2016-10-12] MEDS: SUCRALFATE 1 GM/10 ML UDC PO SCH ×4 (08:22→20:42)
[2016-10-12] MEDS: POTASSIUM CHLR 10 MEQ / WTR 10 MEQ in PREMIXED WATER 100 ML IV SCH ×4 (08:22→11:05)
[2016-10-12 08:25] LABS: MAGNESIUM 1.9 mg/dl (1.8-2.4); PHOSPHORUS 2.5 mg/dl (2.5-4.9)
[2016-10-12] MEDS: FLUTICASONE/SALMETEROL 250/50 (ADVAIR) 14 PUFF/1 INHALER INH SCH ×2 (08:34→20:39)
[2016-10-12] MEDS: LATANOPROST 0.005% OP SOLN 2.5 ML BTL OPR SCH (08:35)
[2016-10-12] MEDS: FLUTICASONE PROPIONATE NA SPR 16 GM BTL NAE SCH ×2 (08:35→20:42)
[2016-10-12] MEDS: DICLOFENAC SOD 1% GEL 100 GM TUBE EXT SCH ×4 (08:35→20:42)
[2016-10-12] MEDS: CARVEDILOL 25 MG TAB PO SCH ×2 (08:36→20:44)
[2016-10-12] MEDS: MULTIVITAMIN TAB PO SCH (08:37)
[2016-10-12] MEDS: LIDODERM (LIDOCAINE) PATCH 5% TD SCH (08:37)
[2016-10-12] MEDS: PANTOprazole SOD 40 MG TAB PO SCH ×2 (08:37→20:44)
[2016-10-12] MEDS: CHOLECALCIFEROL 1000 INTER.UNIT TAB PO SCH (08:37)
[2016-10-12] MEDS: ALLOPURINOL 100 MG TAB PO SCH ×2 (08:37→20:43)
[2016-10-12] MEDS: MEGESTROL ACETATE SUSP 400 MG/10 ML UDC PO SCH (08:38)
[2016-10-12] MEDS: CALCITONIN SALMON NA 200 IU/AC 3.7 ML BTL NAE SCH (08:38)
[2016-10-12] MEDS: AMLODIPINE BESYLATE 5 MG TAB PO SCH (08:38)
--- NOTE | 2016-10-12 09:44 | Infectious Disease Progress Nt ---
Progress Note Date of Service October 12, 2016. Subjective Pt evaluation today including: conversation w/ patient, physical exam, chart review, lab review, review of studies, review of inpatient medication list Patient is feeling much improved this morning. She is extubated today. Her WBC count this morning was 13.18. Creatinine continues to slightly increase and is 1.6 today. She continues to have a mild cough but it is non-productive. She continues to have edema of the bilateral lower extremity along with chills. She denies N/V/D. Repeat blood cultures showing no growth to date. All Other Systems: Reviewed and Negative Medications Current Inpatient Medications Medications (Trade) Dose Ordered Sig/Estpehania Route Start Time Stop Time Status Last Admin Dose Admin Allopurinol (Zyloprim Tab) 100 mg BID PO 10/05/16 08:00 11/04/16 07:59 10/12/16 08:37 100 MG Amlodipine Besylate (Norvasc Tab) 10 mg DAILY PO 10/05/16 08:00 11/04/16 07:59 10/12/16 08:38 10 MG Baclofen (Lioresal Tab) 10 mg BID PO 10/05/16 08:00 11/04/16 07:59 10/12/16 08:22 10 MG Calcitonin [place] (Fortical Nasal [place]) 1 spray DAILY ERIC 10/05/16 08:00 11/04/16 07:59 10/12/16 08:38 1 SPRAY Carvedilol (Coreg Tab) 25 mg BID PO 10/05/16 08:00 11/04/16 07:59 10/12/16 08:36 25 MG Cholecalciferol (Vitamin D Tab) 2,000 inter.unit DAILY PO 10/05/16 08:00 11/04/16 07:59 10/12/16 08:37 2,000 INTER.UNIT Diclofenac Sodium (Voltaren 1% Top Gel) 1 appln QID EXT 10/05/16 08:00 11/04/16 07:59 10/12/16 08:35 1 APPLN Duloxetine HCl (Cymbalta Cap) 20 mg DAILY PO 10/05/16 08:00 11/04/16 07:59 Future Hold Salmeterol Xinafoate/ Fluticasone (Advair Diskus 250/50 Inh) 1 puff BID INH 10/05/16 08:00 11/04/16 07:59 10/12/16 08:34 1 PUFF Fluticasone Propionate (Flonase Nasal [place]) 1 sprays BID ERIC 10/05/16 08:00 11/04/16 07:59 10/12/16 08:35 1 SPRAYS Hydralazine HCl (Apresoline Tab) 75 mg TID PO 10/05/16 08:00 11/04/16 07:59 10/12/16 08:37 75 MG Latanoprost (Xalatan Oph Soln) 1 drops HS OPR 10/05/16 22:00 11/04/16 21:59 10/12/16 08:35 1 DROPS Lidocaine (Lidoderm Patch 5%) 1 patch DAILY TD 10/05/16 08:00 11/04/16 07:59 10/12/16 08:37 1 PATCH Magnesium Hydroxide (Milk Of Magnesia Susp) 30 ml DAILY PRN PO 10/05/16 05:15 11/04/16 05:14 Multivitamins (Multivitamin Tab) 1 tab DAILY PO 10/05/16 08:00 11/04/16 07:59 10/12/16 08:37 1 TAB Senna (Senokot Tab) 8.6 mg QAM PO 10/05/16 08:00 11/04/16 07:59 10/12/16 08:22 8.6 MG Miscellaneous (Remove Lidoderm Patch) 1 ea DAILY@21 N/A 10/05/16 21:00 11/04/16 20:59 10/11/16 20:55 1 EA Albuterol/ Ipratropium (Duoneb) 3 ml QIDR INH 10/05/16 08:00 11/04/16 07:59 10/12/16 07:47 3 ML Miscellaneous (Remove Clonidine Patch) 1 ea Q7D@1559 N/A 10/09/16 15:59 11/08/16 15:58 10/09/16 16:12 1 EA Miscellaneous Information (Check Clonidine Patch Placement) 1 ea QS N/A 10/05/16 08:00 11/04/16 07:59 10/12/16 08:00 1 EA Heparin Sodium (Porcine) (Heparin Sq 5000 Unit/0.5ml) 5,000 unit Q8 SQ 10/05/16 06:00 11/04/16 05:59 10/12/16 06:08 5,000 UNIT Sucralfate (Carafate Susp) 1 gm ACHS PO 10/05/16 06:30 11/04/16 06:29 10/12/16 08:22 1 GM Megestrol Acetate (Megace Susp) 400 mg QAM PO 10/05/16 08:00 11/04/16 07:59 10/12/16 08:38 400 MG Ondansetron HCl 4 mg 4 mg Q4H PRN IV 10/06/16 11:00 11/05/16 10:59 10/09/16 13:31 4 MG Promethazine HCl/ Sodium Chloride (Phenergan Inj/ Nss 50ml) 50.5 ml @ 204 mls/hr Q6H PRN IV 10/07/16 16:00 11/06/16 15:59 10/09/16 17:16 204 MLS/HR Hydralazine HCl (HydrALAZINE INJ) 10 mg Q4H PRN IV. 10/08/16 01:45 11/07/16 01:44 10/09/16 17:16 10 MG Tiotropium [place] 1 puff 1 puff DAILY INH 10/09/16 08:00 11/08/16 07:59 Future Hold Linezolid/Prmx (Zyvox / D5W/ Premixed D5W) 300 ml @ 300 mls/hr Q12@0600,1800 IV 10/08/16 18:00 10/18/16 17:59 10/12/16 06:07 300 MLS/HR Hydromorphone HCl (Dilaudid Inj) 2 mg Q4H PRN IV 10/10/16 15:15 10/24/16 15:14 10/11/16 21:20 2 MG Piperacillin Sod/ Tazobactam Sod 1 ea 1 ea UD PRN N/A 10/10/16 16:30 11/09/16 16:29 Piperacillin Sod/ Tazobactam Sod/ Dextrose (Zosyn Iv/D5 100ml) 120 ml @ 30 mls/hr Q8H IV 10/10/16 22:00 10/17/16 21:59 10/12/16 06:07 30 MLS/HR Clonidine HCl (Yhxyngvu-Efx-8 0.2mg/24hr Patch) 2 patch Mo@2100 TD 10/10/16 21:00 11/09/16 20:59 10/10/16 21:37 2 PATCH Heparin Sodium (Porcine) (Heparin 10 Unit/ ml 5 ml Flush) 5 ml PRN PRN FLUSH 10/11/16 02:00 11/10/16 01:59 Pantoprazole Sodium (Protonix Tab) 40 mg BID PO 10/11/16 21:00 11/10/16 20:59 10/12/16 08:37 40 MG Zolpidem Tartrate 5 mg 5 mg HS PRN PO 10/11/16 23:30 11/10/16 23:29 10/11/16 23:44 5 MG Potassium Chloride/Prmx (Kcl 10 Meq / Wtr/Premixed Water) 100 ml @ 100 mls/hr Q1H IV 10/12/16 08:00 10/12/16 11:59 10/12/16 09:12 100 MLS/HR Potassium Chloride (Klor-Con Tab) 20 meq BID PO 10/12/16 09:00 10/13/16 09:00 10/12/16 08:21 20 MEQ Prednisone (PredniSONE TAB) 40 mg DAILY PO 10/13/16 12:00 11/12/16 11:59 UNV Objective Vital Signs Date Time Temp Pulse Resp B/P Pulse Ox O2 Delivery O2 Flow Rate FiO2 10/12/16 07:47 62 23 93 Nasal Cannula 2.0 10/12/16 06:17 91 18 147/76 92 Nasal Cannula 2.0 10/12/16 04:00 Nasal Cannula 2.0 10/12/16 04:00 37.2 90 16 91/58 93 Nasal Cannula 2.0 10/12/16 02:01 80 16 98/54 92 Nasal Cannula 2.0 10/12/16 00:01 37.1 77 16 90/58 92 Nasal Cannula 2.0 10/11/16 23:59 Nasal Cannula 2.0 10/11/16 22:00 88 18 113/79 92 Nasal Cannula 2.0 10/11/16 20:00 37.0 91 22 124/75 92 Nasal Cannula 2.0 10/11/16 20:00 37.0 92 25 124/75 92 Nasal Cannula 2.0 10/11/16 20:00 92 Nasal Cannula 2.0 10/11/16 19:05 88 23 92 Nasal Cannula 2.0 10/11/16 18:00 36.8 90 23 132/74 92 Nasal Cannula 2.0 10/11/16 16:00 37.2 84 20 120/77 94 Nasal Cannula 10/11/16 16:00 Nasal Cannula 2.0 10/11/16 15:34 83 24 91 Nasal Cannula 2.0 10/11/16 14:19 78 20 127/63 92 Nasal Cannula 2.0 10/11/16 12:00 79 18 97/78 92 Nasal Cannula 2.0 10/11/16 12:00 Nasal Cannula 2.0 40 10/11/16 10:57 74 22 96 Nasal Cannula 4.0 10/11/16 10:08 37.4 74 18 141/76 94 Nasal Cannula 4.0 Physical Exam General Appearance: WD/WN, no apparent distress, + pertinent finding (under multiple blankets) Eyes: normal inspection, sclerae normal ENT: hearing grossly normal Neck: supple, trachea midline Respiratory/Chest: chest non-tender, no respiratory distress, no accessory muscle use, + decreased breath sounds (bases) Cardiovascular: regular rate, rhythm Abdomen: normal bowel sounds, soft Extremities: + pertinent finding (1-2+ pitting edema b/l LE) Neurologic/Psychiatric: alert, normal mood/affect Skin: warm/dry, no rash Laboratory Results Item Value Date Time Blood Culture - Preliminary Resulted 10/10/16 0215 Blood NO GROWTH TO DATE. Blood Culture - Preliminary Resulted 10/10/16 0210 Blood NO GROWTH TO DATE. Fungal Smear - Final Resulted 10/09/16 2233 Bronchial Washings Right Middle Lobe Gram Stain - Final Complete 10/09/16 2233 Bronchial Washings Right Middle Lobe Fungal Smear - Final Resulted 10/09/16 2233 Bronchial Washings Left Lingula Acid Fast Stain - Final Resulted 10/09/16 2233 Bronchial Washings Left Lingula Gram Stain - Final Complete 10/09/16 2233 Bronchial Washings Left Lingula MRSA DNA Surveillance Screen - Final Complete 10/05/16 0837 Nasal Specimen Negative for MRSA by DNA Probe Last 24 Hours Test 10/12/16 05:37 White Blood Count 13.18 K/uL Red Blood Count 3.25 M/uL Hemoglobin 8.9 g/dL Hematocrit 27.4 % Mean Corpuscular Volume 84.3 fL Mean Corpuscular Hemoglobin 27.4 pg Mean Corpuscular Hemoglobin Concent 32.5 g/dl RDW Standard Deviation 49.4 fL RDW Coefficient of Variation 16.0 % Platelet Count 158 K/uL Mean Platelet Volume 11.5 fL Sodium Level 140 mmol/L Potassium Level 2.7 mmol/L Chloride Level 105 mmol/L Carbon Dioxide Level 28 mmol/L Anion Gap 7.0 mmol/L Blood Urea Nitrogen 22 mg/dl Creatinine 1.60 mg/dl Est Creatinine Clear Calc Drug Dose 26.5 ml/min Estimated GFR () 37.7 Estimated GFR (Non- 32.5 BUN/Creatinine Ratio 13.9 Random Glucose 110 mg/dl Calcium Level 7.5 mg/dl Phosphorus Level 2.5 mg/dl Magnesium Level 1.9 mg/dl Assessment and Plan (1) Acute respiratory failure with hypoxia (2) Altered mental status Status: Acute (3) UTI (urinary tract infection) Patient with acute confusion, respiratory failure, and VRE UTI with possible bibasilar pneumonia/pneumonitis. She is currently on IV Zyvox and Zosyn. Continue current abx therapy, likely for 7-10 days total. Pending improvement, may be able to transition to PO therapy. Will likely repeat CXR again tomorrow to reassess basilar lung findings. We will follow. PROVIDER ADDENDUM: Patient reviewed with Ms. Smith. Agree with above assessment.
--- NOTE | 2016-10-12 11:10 | Critical Care Progress Note ---
Critical Care Progress Note Date of Service October 12, 2016. Attending Dr. Jack Ro 71-year-old female with past medical history of PKD stage III, gout, hyperlipidemia, hypertension, perforated duodenal ulcer, COPD, bilateral renal artery stenosis status post left MARITZA stent, osteoporosis with compression fractures, secondary hyperparathyroidism who is a resident of [facility] presented to the ER after mental status on 10/04/2016 and treated empirically for complicated UTI secondary to VRE. She was transferred to the ICU last night due to respiratory distress . Chest x-ray had revealed bibasilar densities, ABG - acidotic at 7.26 and was intubated and she also underwent bronchoscopy and samples were sent for culture and Gram stain, cytology, fungal elements, and AFB stain and culture. Extubated yesterday and has been doing great on NC with 2L. Diet was also advanced States that she feels better and denies any CP, SOB, Palpitations. tolerating diet ok. Objective GENERAL: Patient is in no acute distress. NECK: Right IJ LUNGS: Clear to auscultation bilaterally, no wheeze, no rhonchi, breath sounds equal. HEART: Without murmurs gallops or rubs, regular rate and rhythm. ABDOMEN: Soft, nontender, bowel sounds positive, no hernias, no peritonitis. EXTREMITIES: b/l pedal edema NEUROLOGIC: AAOX3 SKIN: No rash, no jaundice Assessment & Plan 71-year-old female with past medical history of CKD stage III, gout, hyperlipidemia, hypertension, perforated duodenal ulcer, COPD, bilateral renal artery stenosis status post left MARITZA stent, osteoporosis with compression fractures, secondary hyperparathyroidism who is a resident of [facility] presented to the ER after mental status on 10/04/2016 and treated empirically for complicated UTI secondary to VRE. She was transferred to the ICU last night due to respiratory distress . s/p extubation yesterday. Neuro: - Sedation: off of all sedation - RASS: 0 - Pain control with fentanyl and Dilaudid PRN CVS: - BP: currently stable ranging in 110s-120s systolic, Goal MAP>65 h/o HTN with MARITZA , s/p stenting in left RA: - continue hydralazine, carvedilol, amlodipine, clonidine and labetalol PRN Troponins trended- negative Echo: * 1. Small left ventricular size with hyperdynamic systolic function. EF 65-70 %. No regional wall motion abnormalities. Mild concentric left ventricular hypertrophy. Type I diastolic dysfunction. * 2. The left atrium is mildly dilated. * 3. At least mild mitral regurgitation. * 4. Technically difficult study; poor to fair image quality. * 5. Compared to prior study on 10/29/2015, similar findings. RESPIRATORY - Possible Pneumonia: s/p bronchoscopy, cultures pending - Continue Zosyn - History of COPD Continue DuoNeb, Advair Solumedrol 40 was decreased to 20 Q8H yesterday during the day Solumedrol switched to 40 mg prednisone PO Daily GI/FEN: diet advanced and has been tolerating regular diet without any issues - Bowel regimen RENAL: Cr at 1.6 from 1.4 yesterday , likely sec to lasix yesterday continue to monitor Electrolytes: Hypokalemia: K at 2.7, repleted monitor ID: Procalcitonin at 0.85 lactate at 0.7 Possible pneumonia: - Continue Zosyn Complicated UTI: sec to VRE: - Continue linezolid for a total of 10 days ago Heme: DVT Prophylaxis: Heparin 5000 units every 8h Full code Dispo: Transfer to telemetry. Dc White and triple lumen after obtaining peripheral IV access Resident Physician Supervision Note/Enlisted Advisor I interviewed and examined the patient. Discussed with Dr. Fischer and agree with findings and plan as documented in the note. Any exceptions or clarifications can be found in my dictated note from today. Documented By: Erin Santiago Consults & Procedures Consultants: Enlisted Advisor Procedures: Intubation, Bronchoscopy Data Medications: Current Inpatient Medications Medications (Trade) Dose Ordered Sig/Estephania Route Start Time Stop Time Status Last Admin Dose Admin Allopurinol (Zyloprim Tab) 100 mg BID PO 10/05/16 08:00 11/04/16 07:59 10/12/16 08:37 100 MG Amlodipine Besylate (Norvasc Tab) 10 mg DAILY PO 10/05/16 08:00 11/04/16 07:59 10/12/16 08:38 10 MG Baclofen (Lioresal Tab) 10 mg BID PO 10/05/16 08:00 11/04/16 07:59 10/12/16 08:22 10 MG Calcitonin Philip (Fortical Nasal Kenna) 1 spray DAILY ERIC 10/05/16 08:00 11/04/16 07:59 10/12/16 08:38 1 SPRAY Carvedilol (Coreg Tab) 25 mg BID PO 10/05/16 08:00 11/04/16 07:59 10/12/16 08:36 25 MG Cholecalciferol (Vitamin D Tab) 2,000 inter.unit DAILY PO 10/05/16 08:00 11/04/16 07:59 10/12/16 08:37 2,000 INTER.UNIT Diclofenac Sodium (Voltaren 1% Top Gel) 1 appln QID EXT 10/05/16 08:00 11/04/16 07:59 10/12/16 08:35 1 APPLN Duloxetine HCl (Cymbalta Cap) 20 mg DAILY PO 10/05/16 08:00 11/04/16 07:59 Future Hold Salmeterol Xinafoate/ Fluticasone (Advair Diskus 250/50 Inh) 1 puff BID INH 10/05/16 08:00 11/04/16 07:59 10/12/16 08:34 1 PUFF Fluticasone Propionate (Flonase Nasal Kenna) 1 sprays BID ERIC 10/05/16 08:00 11/04/16 07:59 10/12/16 08:35 1 SPRAYS Hydralazine HCl (Apresoline Tab) 75 mg TID PO 10/05/16 08:00 11/04/16 07:59 10/12/16 08:37 75 MG Latanoprost (Xalatan Oph Soln) 1 drops HS OPR 10/05/16 22:00 11/04/16 21:59 10/12/16 08:35 1 DROPS Lidocaine (Lidoderm Patch 5%) 1 patch DAILY TD 10/05/16 08:00 11/04/16 07:59 10/12/16 08:37 1 PATCH Magnesium Hydroxide (Milk Of Magnesia Susp) 30 ml DAILY PRN PO 10/05/16 05:15 11/04/16 05:14 Multivitamins (Multivitamin Tab) 1 tab DAILY PO 10/05/16 08:00 11/04/16 07:59 10/12/16 08:37 1 TAB Senna (Senokot Tab) 8.6 mg QAM PO 10/05/16 08:00 11/04/16 07:59 10/12/16 08:22 8.6 MG Miscellaneous (Remove Lidoderm Patch) 1 ea DAILY@21 N/A 10/05/16 21:00 11/04/16 20:59 10/11/16 20:55 1 EA Albuterol/ Ipratropium (Duoneb) 3 ml QIDR INH 10/05/16 08:00 11/04/16 07:59 10/12/16 07:47 3 ML Miscellaneous (Remove Clonidine Patch) 1 ea Q7D@1559 N/A 10/09/16 15:59 11/08/16 15:58 10/09/16 16:12 1 EA Miscellaneous Information (Check Clonidine Patch Placement) 1 ea QS N/A 10/05/16 08:00 11/04/16 07:59 10/12/16 08:00 1 EA Heparin Sodium (Porcine) (Heparin Sq 5000 Unit/0.5ml) 5,000 unit Q8 SQ 10/05/16 06:00 11/04/16 05:59 10/12/16 06:08 5,000 UNIT Sucralfate (Carafate Susp) 1 gm ACHS PO 10/05/16 06:30 11/04/16 06:29 10/12/16 08:22 1 GM Megestrol Acetate (Megace Susp) 400 mg QAM PO 10/05/16 08:00 11/04/16 07:59 10/12/16 08:38 400 MG Ondansetron HCl 4 mg 4 mg Q4H PRN IV 10/06/16 11:00 11/05/16 10:59 10/09/16 13:31 4 MG Promethazine HCl/ Sodium Chloride (Phenergan Inj/ Nss 50ml) 50.5 ml @ 204 mls/hr Q6H PRN IV 10/07/16 16:00 11/06/16 15:59 10/09/16 17:16 204 MLS/HR Hydralazine HCl (HydrALAZINE INJ) 10 mg Q4H PRN IV. 10/08/16 01:45 11/07/16 01:44 10/09/16 17:16 10 MG Tiotropium Dorena 1 puff 1 puff DAILY INH 10/09/16 08:00 11/08/16 07:59 Future Hold Linezolid/Prmx (Zyvox / D5W/ Premixed D5W) 300 ml @ 300 mls/hr Q12@0600,1800 IV 10/08/16 18:00 10/18/16 17:59 10/12/16 06:07 300 MLS/HR Hydromorphone HCl (Dilaudid Inj) 2 mg Q4H PRN IV 10/10/16 15:15 10/24/16 15:14 10/11/16 21:20 2 MG Piperacillin Sod/ Tazobactam Sod 1 ea 1 ea UD PRN N/A 10/10/16 16:30 11/09/16 16:29 Piperacillin Sod/ Tazobactam Sod/ Dextrose (Zosyn Iv/D5 100ml) 120 ml @ 30 mls/hr Q8H IV 10/10/16 22:00 10/17/16 21:59 10/12/16 06:07 30 MLS/HR Clonidine HCl (Nvkpyndu-Rmv-6 0.2mg/24hr Patch) 2 patch Mo@2100 TD 10/10/16 21:00 11/09/16 20:59 10/10/16 21:37 2 PATCH Heparin Sodium (Porcine) (Heparin 10 Unit/ ml 5 ml Flush) 5 ml PRN PRN FLUSH 10/11/16 02:00 11/10/16 01:59 Pantoprazole Sodium (Protonix Tab) 40 mg BID PO 10/11/16 21:00 11/10/16 20:59 10/12/16 08:37 40 MG Zolpidem Tartrate 5 mg 5 mg HS PRN PO 10/11/16 23:30 11/10/16 23:29 10/11/16 23:44 5 MG Potassium Chloride/Prmx (Kcl 10 Meq / Wtr/Premixed Water) 100 ml @ 100 mls/hr Q1H IV 10/12/16 08:00 10/12/16 11:59 10/12/16 10:33 100 MLS/HR Potassium Chloride (Klor-Con Tab) 20 meq BID PO 10/12/16 09:00 10/13/16 09:00 10/12/16 08:21 20 MEQ Prednisone (PredniSONE TAB) 40 mg DAILY PO 10/12/16 12:00 11/11/16 11:59 I & O: 24-Hour Column 10/12/16 07:59 Intake Total 1330 ml Output Total 2200 ml Balance -870 ml Vital Signs: Date Time Temp Pulse Resp B/P Pulse Ox O2 Delivery O2 Flow Rate FiO2 10/12/16 07:47 62 23 93 Nasal Cannula 2.0 10/12/16 06:17 91 18 147/76 92 Nasal Cannula 2.0 10/12/16 04:00 Nasal Cannula 2.0 10/12/16 04:00 37.2 90 16 91/58 93 Nasal Cannula 2.0 10/12/16 02:01 80 16 98/54 92 Nasal Cannula 2.0 10/12/16 00:01 37.1 77 16 90/58 92 Nasal Cannula 2.0 10/11/16 23:59 Nasal Cannula 2.0 10/11/16 22:00 88 18 113/79 92 Nasal Cannula 2.0 10/11/16 20:00 37.0 91 22 124/75 92 Nasal Cannula 2.0 10/11/16 20:00 37.0 92 25 124/75 92 Nasal Cannula 2.0 10/11/16 20:00 92 Nasal Cannula 2.0 10/11/16 19:05 88 23 92 Nasal Cannula 2.0 10/11/16 18:00 36.8 90 23 132/74 92 Nasal Cannula 2.0 10/11/16 16:00 37.2 84 20 120/77 94 Nasal Cannula 10/11/16 16:00 Nasal Cannula 2.0 10/11/16 15:34 83 24 91 Nasal Cannula 2.0 10/11/16 14:19 78 20 127/63 92 Nasal Cannula 2.0 10/11/16 12:00 79 18 97/78 92 Nasal Cannula 2.0 10/11/16 12:00 Nasal Cannula 2.0 40 10/11/16 10:57 74 22 96 Nasal Cannula 4.0 Laboratory Results: Last 24 Hours Test 10/12/16 05:37 White Blood Count 13.18 K/uL Red Blood Count 3.25 M/uL Hemoglobin 8.9 g/dL Hematocrit 27.4 % Mean Corpuscular Volume 84.3 fL Mean Corpuscular Hemoglobin 27.4 pg Mean Corpuscular Hemoglobin Concent 32.5 g/dl RDW Standard Deviation 49.4 fL RDW Coefficient of Variation 16.0 % Platelet Count 158 K/uL Mean Platelet Volume 11.5 fL Sodium Level 140 mmol/L Potassium Level 2.7 mmol/L Chloride Level 105 mmol/L Carbon Dioxide Level 28 mmol/L Anion Gap 7.0 mmol/L Blood Urea Nitrogen 22 mg/dl Creatinine 1.60 mg/dl Est Creatinine Clear Calc Drug Dose 26.5 ml/min Estimated GFR () 37.7 Estimated GFR (Non- 32.5 BUN/Creatinine Ratio 13.9 Random Glucose 110 mg/dl Calcium Level 7.5 mg/dl Phosphorus Level 2.5 mg/dl Magnesium Level 1.9 mg/dl Resident Tracking Resident Involvement: Resident Care Provided Care Provided: Adult [facility] Medicine
--- NOTE | 2016-10-12 11:57 | CRITICAL CARE PROGRESS NOTE ---
DATE: 10/12/2016 SUBJECTIVE: There were no acute events overnight. The patient's care was discussed in detail on multidisciplinary rounds. She was successfully extubated yesterday and does not have any specific complaints. She is, however, concerned about not receiving her methadone and the potential for opioid withdrawal. She tells me she was "jumpy" all last night because she becomes anxious and agitated at times when her steroid dose is increased. There were no reports of any agitation or issues overnight from the nursing staff. ID team is having difficulty establishing peripheral IV access. She has not had a bowel movement in several days. She reports her pain is on a "sliding scale" and has not had any p.r.n. hydromorphone since last night around 9:30. OBJECTIVE: VITAL SIGNS: Maximum temperature 37.2, heart rate 77-91, respiratory rate 16-18, blood pressure 90-147/50s-70s, oxygen saturation 92% on 2 liters nasal cannula. A 24-hour fluid balance is minus 580 mL. GENERAL: She is awake, alert and able to easily carry on a conversation. NEUROLOGIC: She follows commands weakly with all 4 extremities. LUNGS: Decreased breath sounds throughout, particularly in the bases. No rales, rhonchi or wheezes. HEART: Regular rate and rhythm. ABDOMEN: Round, mildly distended, soft, nontender, active bowel sounds. EXTREMITIES: 2-3+ pretibial edema up to her hips. Bilateral footdrop. LABORATORY DATA: White blood cell count 13.1, hemoglobin 8.9, hematocrit 27.4, platelets 158. Sodium 140, potassium 2.7, chloride 105, CO2 28, BUN 22, creatinine 1.6, blood sugar 110. Calcium 7.5, phosphorus 2.5, magnesium 1.9. MEDICATIONS: DuoNeb, allopurinol, Norvasc, baclofen, Fortical nasal spray, carvedilol, vitamin D, clonidine patch, Voltaren, Flonase, hydralazine, Dilaudid, Xalatan ophthalmic drops, lidocaine, linezolid day 8, milk of magnesia, Megace, multivitamin, Zofran, Protonix, Zosyn day 3, potassium chloride, prednisone, promethazine, Advair, senna, Carafate, Ambien. No new microbiology data. Fungal and mycobacterial cultures on the BAL washings from the left lingula and right middle lobe are still pending. IMPRESSION: 1. Acute hypoxemic respiratory failure which may have been due to ongoing sepsis or development of pneumonia versus oversedation with medications. She has been successfully extubated. She was treated for pneumonia as well as chronic obstructive pulmonary disease exacerbation and her sedative medications were decreased significantly. 2. Vancomycin-resistant Enterococcus urinary tract infection. 3. Possible aspiration pneumonia, she is receiving Zosyn. 4. Acute kidney injury on chronic kidney disease status post Lasix diuresis yesterday. Her creatinine is a little bit higher today. 5. History of chronic obstructive pulmonary disease, weaning steroids and continuing on bronchodilators. 6. History of opioid dependence as well as regular use of Ativan. She is only on p.r.n. Dilaudid presently and has not had any in the past 12 hours. She is concerned about withdrawal and pain but not asking for medication. 7. History of hypertension and renal artery stenosis. 8. Constipation. PLAN: NEUROLOGIC: I discussed her sedatives with Dr. Barron who is ordering a pain management consult. Watch for signs of withdrawal and consider adding back her methadone at half her outpatient dose. Continue PRN Dilaudid. PULMONARY: Continue bronchodilators, could resume Spiriva and discontinue the Atrovent. She is now on a prednisone and that can be weaned back to her 5 mg daily, relatively quickly and perhaps even lower. CARDIOVASCULAR: Continue antihypertensives, blood pressure has been under satisfactory control. ID team is still attempting to find peripheral IV access. When they do, discontinue triple lumen catheter. RENAL: Watch volume status and follow creatinine. Appropriately adjust medications. discontinue White catheter today. HEME: She is a bit anemic today, this may be secondary to dilution, no signs of bleeding. Continue to follow. Continue subcutaneous heparin. GASTROINTESTINAL: She is not interested in nutritional supplements. Continue bowel regimen and encourage p.o. She is on her sucralfate and her proton pump inhibitor for GI prophylaxis. MISCELLANEOUS: She is receiving speech therapy and occupational therapy. I discussed her care with her son yesterday. He is interested in helping her fill out an advanced directive. This was discussed with case management this morning on rounds. I think she is stable for transfer back to the floor. Please call me with any questions or concerns. [facility] HEALTH CENTERArturo
--- NOTE | 2016-10-12 12:44 | Progress Note ---
Subjective Date of Service: October 12, 2016. Subjective Pt evaluation today including: conversation w/ patient, physical exam, chart review, lab review, review of studies, review of inpatient medication list Extubated No resp distress States concern for restarting methadone NO acute events overnight Problem List Medical Problems: (1) Altered mental status Status: Acute (2) Anemia Status: Acute (3) Bilateral pneumonia Status: Acute (4) CHF (congestive heart failure) Status: Acute (5) Chronic Kidney Disease, Stage Iii (Moderate) Status: Chronic (6) COPD exacerbation Status: Acute (7) COPD exacerbation Status: Acute (8) Crystal arthritis Status: Chronic (9) Duodenal bulb ulcer Status: Chronic (10) Failure of outpatient treatment Status: Acute (11) Failure of outpatient treatment Status: Acute (12) Gout Status: Chronic (13) Hyperlipidemia Nec/Nos Status: Chronic (14) Hypertension Status: Chronic (15) Hypoxemia Status: Acute (16) Hypoxia Status: Acute (17) Hypoxia Status: Acute (18) Hypoxia Status: Acute (19) Hypoxia Status: Acute (20) Lumbar compression fracture Status: Chronic (21) Opiate use Status: Chronic (22) Osteoporosis Status: Chronic (23) Peripheral edema Status: Acute (24) Pneumonia Status: Acute (25) Pneumonia Status: Acute (26) Pneumonia involving right lung Status: Acute (27) Respiratory acidosis Status: Acute (28) Respiratory distress Status: Acute (29) Right renal artery stenosis Status: Chronic (30) Secondary hyperparathyroidism Status: Chronic (31) UTI (urinary tract infection) Status: Acute Review of Systems Constitutional: No chills, No fever Respiratory: No cough, No dyspnea on exertion, No shortness of breath, No sputum, No wheezing Cardiac: No chest pain, No orthopnea Abdomen: No constipation, No diarrhea, No nausea, No pain, No vomiting Musculoskeletal: + joint pain, + muscle pain Female : No dysuria, No urinary frequency Objective Vital Signs Date Time Temp Pulse Resp B/P Pulse Ox O2 Delivery O2 Flow Rate FiO2 10/12/16 12:00 92 Nasal Cannula 2.0 10/12/16 12:00 37.1 92 18 129/81 92 Nasal Cannula 2.0 10/12/16 11:41 88 18 93 Nasal Cannula 2.0 10/12/16 08:00 92 Nasal Cannula 2.0 10/12/16 07:47 62 23 93 Nasal Cannula 2.0 10/12/16 06:17 91 18 147/76 92 Nasal Cannula 2.0 10/12/16 04:00 Nasal Cannula 2.0 10/12/16 04:00 37.2 90 16 91/58 93 Nasal Cannula 2.0 10/12/16 02:01 80 16 98/54 92 Nasal Cannula 2.0 10/12/16 00:01 37.1 77 16 90/58 92 Nasal Cannula 2.0 10/11/16 23:59 Nasal Cannula 2.0 10/11/16 22:00 88 18 113/79 92 Nasal Cannula 2.0 10/11/16 20:00 37.0 91 22 124/75 92 Nasal Cannula 2.0 10/11/16 20:00 37.0 92 25 124/75 92 Nasal Cannula 2.0 10/11/16 20:00 92 Nasal Cannula 2.0 10/11/16 19:05 88 23 92 Nasal Cannula 2.0 10/11/16 18:00 36.8 90 23 132/74 92 Nasal Cannula 2.0 10/11/16 16:00 37.2 84 20 120/77 94 Nasal Cannula 10/11/16 16:00 Nasal Cannula 2.0 10/11/16 15:34 83 24 91 Nasal Cannula 2.0 10/11/16 14:19 78 20 127/63 92 Nasal Cannula 2.0 Physical Exam General Appearance: WD/WN, no apparent distress Neck: supple, no adenopathy Respiratory/Chest: lungs clear, normal breath sounds Cardiovascular: no edema, no gallop Abdomen: non tender, soft Neurologic/Psychiatric: alert, normal mood/affect Laboratory Results Last 24 Hours Test 10/12/16 05:37 White Blood Count 13.18 K/uL Red Blood Count 3.25 M/uL Hemoglobin 8.9 g/dL Hematocrit 27.4 % Mean Corpuscular Volume 84.3 fL Mean Corpuscular Hemoglobin 27.4 pg Mean Corpuscular Hemoglobin Concent 32.5 g/dl RDW Standard Deviation 49.4 fL RDW Coefficient of Variation 16.0 % Platelet Count 158 K/uL Mean Platelet Volume 11.5 fL Sodium Level 140 mmol/L Potassium Level 2.7 mmol/L Chloride Level 105 mmol/L Carbon Dioxide Level 28 mmol/L Anion Gap 7.0 mmol/L Blood Urea Nitrogen 22 mg/dl Creatinine 1.60 mg/dl Est Creatinine Clear Calc Drug Dose 26.5 ml/min Estimated GFR () 37.7 Estimated GFR (Non- 32.5 BUN/Creatinine Ratio 13.9 Random Glucose 110 mg/dl Calcium Level 7.5 mg/dl Phosphorus Level 2.5 mg/dl Magnesium Level 1.9 mg/dl Assessment and Plan 71 year old female from [facility] who presents to the ER for lethargy and altered mental state. She is on chronic opiates however did not respond to narcan given in the custodial. Acute hypoxic resp failure Change in mental status, likely multi factorial possible accidental narcotics over dose hypoglycemia oral thrush B/L basal consolidation likely atelectasis VRE UTI Plan: Pt extubated, transfer to medical floor Pain management consult to restart methadone cont zyvox and zosyn per ID recs ?Aspiration PNA Lasix given PRN edema, hold off until improving renal insuff metabolic encephalopathy likely from narcotic overuse restart on IV morphine at low dose and slowly titrate ordered Procalcitonin / blood and Ucx enterococcus faecium continue home meds Noted hypoglycemic episodes heparin SQ for DVT prophylaxis
[2016-10-12 15:20] LABS: BUN/CREATININE RATIO 12.1 (10-20); CREATININE 1.7 mg/dl (0.60-1.20); POTASSIUM 3.3 mmol/L (3.5-5.1)
[2016-10-12] MEDS: ZOLPIDEM TARTRATE 5 MG TAB PO PRN (22:56)
[2016-10-13] VITALS (11 sets, daily range): BP systolic 122–153; BP diastolic 62–108; PULSE 60–88; TEMP 36.6–37.2; O2SAT 91–95
[2016-10-13] MEDS: CHECK CLONIDINE PATCH PLACEMENT SCH ×3 (00:11→16:00)
[2016-10-13] MEDS ORDERED: POTASSIUM CHLORIDE 20 MEQ TABCR PO STA (03:09)
[2016-10-13] MEDS ORDERED: NURSING VERBAL MED ORDER ONE (03:15)
[2016-10-13] MEDS: LINEZOLID / D5W 600 MG in PREMIXED IN D5W 300 ML IV SCH ×2 (05:10→18:30)
[2016-10-13] MEDS: HEPARIN SOD 5000 UNIT/0.5 ML CARP SQ SCH ×2 (05:11→18:37)
[2016-10-13] MEDS: PIPERACILL/TAZOBAC IV 4.5 GM in DEXTROSE 5% 100ML IV SCH ×3 (06:27→21:38)
[2016-10-13] MEDS: ALBUT/IPRATROP 3MG/0.5MG NEB 3 ML VIAL INH SCH ×4 (07:16→19:13)
[2016-10-13] MEDS: SUCRALFATE 1 GM/10 ML UDC PO SCH ×4 (07:53→20:37)
[2016-10-13] MEDS: FLUTICASONE/SALMETEROL 250/50 (ADVAIR) 14 PUFF/1 INHALER INH SCH ×2 (07:54→20:31)
[2016-10-13] MEDS: DICLOFENAC SOD 1% GEL 100 GM TUBE EXT SCH ×4 (07:54→20:37)
[2016-10-13] MEDS: FLUTICASONE PROPIONATE NA SPR 16 GM BTL NAE SCH ×2 (07:55→20:31)
[2016-10-13] MEDS: CALCITONIN SALMON NA 200 IU/AC 3.7 ML BTL NAE SCH (07:55)
[2016-10-13] MEDS: CARVEDILOL 25 MG TAB PO SCH ×2 (07:57→20:37)
[2016-10-13] MEDS: MEGESTROL ACETATE SUSP 400 MG/10 ML UDC PO SCH (07:58)
[2016-10-13] MEDS: POTASSIUM CHLORIDE 20 MEQ TABCR PO SCH (07:58)
[2016-10-13] MEDS: BACLOFEN 10 MG TAB PO SCH ×2 (07:58→20:37)
[2016-10-13] MEDS: AMLODIPINE BESYLATE 5 MG TAB PO SCH (07:59)
[2016-10-13] MEDS: MULTIVITAMIN TAB PO SCH (07:59)
[2016-10-13] MEDS: CHOLECALCIFEROL 1000 INTER.UNIT TAB PO SCH (08:00)
[2016-10-13] MEDS: PANTOprazole SOD 40 MG TAB PO SCH ×2 (08:00→20:36)
[2016-10-13] MEDS: SENNA 8.6 MG TAB PO SCH (08:00)
[2016-10-13] MEDS: LIDODERM (LIDOCAINE) PATCH 5% TD SCH (08:00)
[2016-10-13] MEDS: ALLOPURINOL 100 MG TAB PO SCH ×2 (08:00→20:36)
[2016-10-13] MEDS: ONDANSETRON INJ 2 MG/ML 2 ML VIAL IV PRN (08:39)
[2016-10-13 09:37] LABS: COMPLETE YES; HEMATOCRIT 28.2 % (37-47); IG% 0.9 %; LYMPH % 12.7 %; LYMPH ABS # 1.83 K/uL (1.2-3.4); MEAN CELL VOLUME 85.7 fL (80-100); MEAN CORPUSCULAR HEMOGLOBIN 28.9 pg (25-34); MEAN CORPUSCULAR HGB CONC 33.7 g/dl (32-36); MEAN PLATELET VOLUME 10.9 fL (7.4-10.4); MONO % 1.7 %; NEUT % 84.7 %; PLATELET COUNT 192 K/uL (130-400); RED BLOOD COUNT 3.29 M/uL (4.2-5.4)
[2016-10-13 10:17] LABS: BUN/CREATININE RATIO 12.4 (10-20); CALCIUM 7.7 mg/dl (8.5-10.1); CREATININE 1.7 mg/dl (0.60-1.20); POTASSIUM 3.4 mmol/L (3.5-5.1)
[2016-10-13] MEDS: METHADONE HCL 10 MG TAB PO SCH ×3 (10:20→20:43)
--- NOTE | 2016-10-13 11:58 | Progress Note ---
Subjective Date of Service: October 13, 2016. Subjective Pt evaluation today including: conversation w/ patient, physical exam, chart review, lab review, review of studies, review of inpatient medication list Pt resting comfortably in bed Reports withdrawing and was wondering if she could be restarted on methadone No N/V No resp distress No acute events overnight Problem List Medical Problems: (1) Altered mental status Status: Acute (2) Anemia Status: Acute (3) Bilateral pneumonia Status: Acute (4) CHF (congestive heart failure) Status: Acute (5) Chronic Kidney Disease, Stage Iii (Moderate) Status: Chronic (6) COPD exacerbation Status: Acute (7) COPD exacerbation Status: Acute (8) Crystal arthritis Status: Chronic (9) Duodenal bulb ulcer Status: Chronic (10) Failure of outpatient treatment Status: Acute (11) Failure of outpatient treatment Status: Acute (12) Gout Status: Chronic (13) Hyperlipidemia Nec/Nos Status: Chronic (14) Hypertension Status: Chronic (15) Hypoxemia Status: Acute (16) Hypoxia Status: Acute (17) Hypoxia Status: Acute (18) Hypoxia Status: Acute (19) Hypoxia Status: Acute (20) Lumbar compression fracture Status: Chronic (21) Opiate use Status: Chronic (22) Osteoporosis Status: Chronic (23) Peripheral edema Status: Acute (24) Pneumonia Status: Acute (25) Pneumonia Status: Acute (26) Pneumonia involving right lung Status: Acute (27) Respiratory acidosis Status: Acute (28) Respiratory distress Status: Acute (29) Right renal artery stenosis Status: Chronic (30) Secondary hyperparathyroidism Status: Chronic (31) UTI (urinary tract infection) Status: Acute Review of Systems Constitutional: No chills, No fever Respiratory: No cough, No shortness of breath, No sputum, No wheezing Cardiac: No chest pain, No orthopnea Abdomen: No diarrhea, No nausea, No pain, No vomiting Musculoskeletal: + joint pain, + muscle pain Female : No dysuria, No urinary frequency Psychiatric: No anhedonism, No depression symptoms Objective Vital Signs Date Time Temp Pulse Resp B/P Pulse Ox O2 Delivery O2 Flow Rate FiO2 10/13/16 11:51 37.0 84 16 148/62 95 10/13/16 11:05 78 18 94 Nasal Cannula 2.0 10/13/16 07:32 37.2 77 18 152/90 91 Nasal Cannula 2.0 10/13/16 07:18 60 18 92 Nasal Cannula 2.0 10/13/16 03:59 36.6 76 18 129/76 94 Nasal Cannula 2.0 10/13/16 00:45 36.8 85 19 142/79 91 Nasal Cannula 2.0 10/12/16 19:47 78 18 91 Nasal Cannula 2.0 10/12/16 19:35 37.0 76 16 145/69 95 10/12/16 15:35 92 18 94 Nasal Cannula 2.0 10/12/16 14:52 145/82 10/12/16 13:00 92 18 125/81 93 Nasal Cannula 2.0 10/12/16 12:00 92 Nasal Cannula 2.0 10/12/16 12:00 37.1 92 18 129/81 92 Nasal Cannula 2.0 Physical Exam General Appearance: WD/WN, + mild distress Neck: supple, no adenopathy Respiratory/Chest: chest non-tender, + decreased breath sounds Cardiovascular: no JVD, no murmur Abdomen: non tender, soft Extremities: + pedal edema Neurologic/Psychiatric: alert, normal mood/affect Laboratory Results Last 24 Hours Test 10/12/16 14:42 10/13/16 09:29 Sodium Level 139 mmol/L 140 mmol/L Potassium Level 3.3 mmol/L 3.4 mmol/L Chloride Level 106 mmol/L 106 mmol/L Carbon Dioxide Level 24 mmol/L 24 mmol/L Anion Gap 9.0 mmol/L 10.0 mmol/L Blood Urea Nitrogen 21 mg/dl 21 mg/dl Creatinine 1.70 mg/dl 1.70 mg/dl Est Creatinine Clear Calc Drug Dose 24.9 ml/min 25.8 ml/min Estimated GFR () 35.0 35.0 Estimated GFR (Non- 30.2 30.2 BUN/Creatinine Ratio 12.1 12.4 Random Glucose 162 mg/dl 124 mg/dl Calcium Level 8.0 mg/dl 7.7 mg/dl White Blood Count 14.40 K/uL Red Blood Count 3.29 M/uL Hemoglobin 9.5 g/dL Hematocrit 28.2 % Mean Corpuscular Volume 85.7 fL Mean Corpuscular Hemoglobin 28.9 pg Mean Corpuscular Hemoglobin Concent 33.7 g/dl Platelet Count 192 K/uL Mean Platelet Volume 10.9 fL Neutrophils (%) (Auto) 84.7 % Lymphocytes (%) (Auto) 12.7 % Monocytes (%) (Auto) 1.7 % Eosinophils (%) (Auto) 0.0 % Basophils (%) (Auto) 0.0 % Neutrophils # (Auto) 12.20 K/uL Lymphocytes # (Auto) 1.83 K/uL Monocytes # (Auto) 0.24 K/uL Eosinophils # (Auto) 0.00 K/uL Basophils # (Auto) 0.00 K/uL RDW Standard Deviation 51.9 fL RDW Coefficient of Variation 16.5 % Immature Granulocyte % (Auto) 0.9 % Immature Granulocyte # (Auto) 0.13 K/uL Assessment and Plan 71 year old female from [facility] who presents to the ER for lethargy and altered mental state. She is on chronic opiates however did not respond to narcan given in the shelter. Acute hypoxic resp failure Change in mental status, likely multi factorial possible accidental narcotics over dose hypoglycemia oral thrush B/L basal consolidation likely atelectasis VRE UTI Deconditioning Plan: Pt extubated, transferred to medical floor Cont steroids, zyvox and zosyn per ID recs Unsure inciting event leading to resp failure Pain management consult to restart methadone ?Aspiration PNA Lasix given PRN edema, hold off until improving renal insuff metabolic encephalopathy likely from narcotic overuse restart on IV morphine at low dose and slowly titrate Continue home meds Noted hypoglycemic episodes heparin SQ for DVT prophylaxis Consult PT/OT
--- NOTE | 2016-10-13 12:56 | Infectious Disease Progress Nt ---
Progress Note Date of Service October 13, 2016. Subjective Pt evaluation today including: conversation w/ patient, physical exam, chart review, lab review, review of studies, review of inpatient medication list Patient is feeling slightly improved today. Her white blood cell count today was 14.40. She is however on prednisone. Her creatinine today was 1.70. Her repeat blood cultures continue to show no growth today. She continues on IV Zosyn and Zyvox. She is tolerating these medications well. She does have a decreased appetite, but has not had any vomiting or diarrhea. All Other Systems: Reviewed and Negative Medications Current Inpatient Medications Medications (Trade) Dose Ordered Sig/Estephania Route Start Time Stop Time Status Last Admin Dose Admin Allopurinol (Zyloprim Tab) 100 mg BID PO 10/05/16 08:00 11/04/16 07:59 10/13/16 08:00 100 MG Amlodipine Besylate (Norvasc Tab) 10 mg DAILY PO 10/05/16 08:00 11/04/16 07:59 10/13/16 07:59 10 MG Baclofen (Lioresal Tab) 10 mg BID PO 10/05/16 08:00 11/04/16 07:59 10/13/16 07:58 10 MG Calcitonin [place] (Fortical Nasal [place]) 1 spray DAILY ERIC 10/05/16 08:00 11/04/16 07:59 10/13/16 07:55 1 SPRAY Carvedilol (Coreg Tab) 25 mg BID PO 10/05/16 08:00 11/04/16 07:59 10/13/16 07:57 25 MG Cholecalciferol (Vitamin D Tab) 2,000 inter.unit DAILY PO 10/05/16 08:00 11/04/16 07:59 10/13/16 08:00 2,000 INTER.UNIT Diclofenac Sodium (Voltaren 1% Top Gel) 1 appln QID EXT 10/05/16 08:00 11/04/16 07:59 10/12/16 20:42 1 APPLN Duloxetine HCl (Cymbalta Cap) 20 mg DAILY PO 10/05/16 08:00 11/04/16 07:59 Future Hold Salmeterol Xinafoate/ Fluticasone (Advair Diskus 250/50 Inh) 1 puff BID INH 10/05/16 08:00 11/04/16 07:59 10/13/16 07:54 1 PUFF Fluticasone Propionate (Flonase Nasal [place]) 1 sprays BID ERIC 10/05/16 08:00 11/04/16 07:59 10/13/16 07:55 1 SPRAYS Hydralazine HCl (Apresoline Tab) 75 mg TID PO 10/05/16 08:00 11/04/16 07:59 10/13/16 07:57 75 MG Latanoprost (Xalatan Oph Soln) 1 drops HS OPR 10/05/16 22:00 11/04/16 21:59 10/12/16 08:35 1 DROPS Lidocaine (Lidoderm Patch 5%) 1 patch DAILY TD 10/05/16 08:00 11/04/16 07:59 10/13/16 08:00 1 PATCH Magnesium Hydroxide (Milk Of Magnesia Susp) 30 ml DAILY PRN PO 10/05/16 05:15 11/04/16 05:14 Multivitamins (Multivitamin Tab) 1 tab DAILY PO 10/05/16 08:00 11/04/16 07:59 10/13/16 07:59 1 TAB Senna (Senokot Tab) 8.6 mg QAM PO 10/05/16 08:00 11/04/16 07:59 10/13/16 08:00 8.6 MG Miscellaneous (Remove Lidoderm Patch) 1 ea DAILY@21 N/A 10/05/16 21:00 11/04/16 20:59 10/12/16 20:41 1 EA Albuterol/ Ipratropium (Duoneb) 3 ml QIDR INH 10/05/16 08:00 11/04/16 07:59 10/13/16 11:05 3 ML Miscellaneous (Remove Clonidine Patch) 1 ea Q7D@1559 N/A 10/09/16 15:59 11/08/16 15:58 10/09/16 16:12 1 EA Miscellaneous Information (Check Clonidine Patch Placement) 1 ea QS N/A 10/05/16 08:00 11/04/16 07:59 10/13/16 00:11 1 EA Sucralfate (Carafate Susp) 1 gm ACHS PO 10/05/16 06:30 11/04/16 06:29 10/13/16 07:53 1 GM Megestrol Acetate (Megace Susp) 400 mg QAM PO 10/05/16 08:00 11/04/16 07:59 10/13/16 07:58 400 MG Ondansetron HCl 4 mg 4 mg Q4H PRN IV 10/06/16 11:00 11/05/16 10:59 10/13/16 08:39 4 MG Promethazine HCl/ Sodium Chloride (Phenergan Inj/ Nss 50ml) 50.5 ml @ 204 mls/hr Q6H PRN IV 10/07/16 16:00 11/06/16 15:59 10/09/16 17:16 204 MLS/HR Hydralazine HCl (HydrALAZINE INJ) 10 mg Q4H PRN IV. 10/08/16 01:45 11/07/16 01:44 10/09/16 17:16 10 MG Tiotropium Lottie 1 puff 1 puff DAILY INH 10/09/16 08:00 11/08/16 07:59 Future Hold Linezolid/Prmx (Zyvox / D5W/ Premixed D5W) 300 ml @ 300 mls/hr Q12@0600,1800 IV 10/08/16 18:00 10/18/16 17:59 10/13/16 05:10 300 MLS/HR Hydromorphone HCl (Dilaudid Inj) 2 mg Q4H PRN IV 10/10/16 15:15 10/24/16 15:14 10/11/16 21:20 2 MG Piperacillin Sod/ Tazobactam Sod 1 ea 1 ea UD PRN N/A 10/10/16 16:30 11/09/16 16:29 Piperacillin Sod/ Tazobactam Sod/ Dextrose (Zosyn Iv/D5 100ml) 120 ml @ 30 mls/hr Q8H IV 10/10/16 22:00 10/17/16 21:59 10/13/16 06:27 30 MLS/HR Clonidine HCl (Wpknlsmy-Dtj-8 0.2mg/24hr Patch) 2 patch Mo@2100 TD 10/10/16 21:00 11/09/16 20:59 10/10/16 21:37 2 PATCH Heparin Sodium (Porcine) (Heparin 10 Unit/ ml 5 ml Flush) 5 ml PRN PRN FLUSH 10/11/16 02:00 11/10/16 01:59 Pantoprazole Sodium (Protonix Tab) 40 mg BID PO 10/11/16 21:00 11/10/16 20:59 10/13/16 08:00 40 MG Zolpidem Tartrate (Ambien Tab) 5 mg HS PRN PO 10/11/16 23:30 11/10/16 23:29 10/12/16 22:56 5 MG Prednisone (PredniSONE TAB) 40 mg DAILY PO 10/12/16 12:00 11/11/16 11:59 10/13/16 07:59 40 MG Heparin Sodium (Porcine) (Heparin Sq 5000 Unit/0.5ml) 5,000 unit Q12H SQ 10/12/16 18:00 11/11/16 17:59 10/13/16 05:11 5,000 UNIT Methadone HCl (Dolophine Tab) 20 mg TID PO 10/13/16 10:00 10/27/16 09:59 10/13/16 10:20 20 MG Acetaminophen/ Hydrocodone Bitart ([place] 5/325 Tab) 1 tab Q4HWA PRN PO 10/13/16 10:00 10/27/16 09:59 Objective Vital Signs Date Time Temp Pulse Resp B/P Pulse Ox O2 Delivery O2 Flow Rate FiO2 10/13/16 11:51 37.0 84 16 148/62 95 10/13/16 11:05 78 18 94 Nasal Cannula 2.0 10/13/16 07:32 37.2 77 18 152/90 91 Nasal Cannula 2.0 10/13/16 07:18 60 18 92 Nasal Cannula 2.0 10/13/16 03:59 36.6 76 18 129/76 94 Nasal Cannula 2.0 10/13/16 00:45 36.8 85 19 142/79 91 Nasal Cannula 2.0 10/12/16 19:47 78 18 91 Nasal Cannula 2.0 10/12/16 19:35 37.0 76 16 145/69 95 10/12/16 15:35 92 18 94 Nasal Cannula 2.0 10/12/16 14:52 145/82 10/12/16 13:00 92 18 125/81 93 Nasal Cannula 2.0 Physical Exam General Appearance: WD/WN, no apparent distress Eyes: normal inspection, sclerae normal ENT: hearing grossly normal Neck: supple, trachea midline Respiratory/Chest: no respiratory distress, no accessory muscle use, + decreased breath sounds (right base ) Cardiovascular: regular rate, rhythm Abdomen: normal bowel sounds, non tender Neurologic/Psychiatric: alert, normal mood/affect Skin: normal color, warm/dry, no rash Laboratory Results Item Value Date Time Blood Culture - Preliminary Resulted 10/10/16214 Blood NO GROWTH TO DATE. Blood Culture - Preliminary Resulted 10/10/16209 Blood NO GROWTH TO DATE. Fungal Smear - Final Resulted 10/09/16 223 Bronchial Washings Right Middle Lobe Gram Stain - Final Complete 10/09/16 223 Bronchial Washings Right Middle Lobe Fungal Smear - Final Resulted 10/09/16 223 Bronchial Washings Left Lingula Acid Fast Stain - Final Resulted 10/09/16 223 Bronchial Washings Left Lingula Gram Stain - Final Complete 10/09/16 2233 Bronchial Washings Left Lingula Last 24 Hours Test 10/12/16 14:42 10/13/16 09:29 Sodium Level 139 mmol/L 140 mmol/L Potassium Level 3.3 mmol/L 3.4 mmol/L Chloride Level 106 mmol/L 106 mmol/L Carbon Dioxide Level 24 mmol/L 24 mmol/L Anion Gap 9.0 mmol/L 10.0 mmol/L Blood Urea Nitrogen 21 mg/dl 21 mg/dl Creatinine 1.70 mg/dl 1.70 mg/dl Est Creatinine Clear Calc Drug Dose 24.9 ml/min 25.8 ml/min Estimated GFR () 35.0 35.0 Estimated GFR (Non- 30.2 30.2 BUN/Creatinine Ratio 12.1 12.4 Random Glucose 162 mg/dl 124 mg/dl Calcium Level 8.0 mg/dl 7.7 mg/dl White Blood Count 14.40 K/uL Red Blood Count 3.29 M/uL Hemoglobin 9.5 g/dL Hematocrit 28.2 % Mean Corpuscular Volume 85.7 fL Mean Corpuscular Hemoglobin 28.9 pg Mean Corpuscular Hemoglobin Concent 33.7 g/dl Platelet Count 192 K/uL Mean Platelet Volume 10.9 fL Neutrophils (%) (Auto) 84.7 % Lymphocytes (%) (Auto) 12.7 % Monocytes (%) (Auto) 1.7 % Eosinophils (%) (Auto) 0.0 % Basophils (%) (Auto) 0.0 % Neutrophils # (Auto) 12.20 K/uL Lymphocytes # (Auto) 1.83 K/uL Monocytes # (Auto) 0.24 K/uL Eosinophils # (Auto) 0.00 K/uL Basophils # (Auto) 0.00 K/uL RDW Standard Deviation 51.9 fL RDW Coefficient of Variation 16.5 % Immature Granulocyte % (Auto) 0.9 % Immature Granulocyte # (Auto) 0.13 K/uL Assessment and Plan (1) Acute respiratory failure with hypoxia (2) Altered mental status Status: Acute (3) UTI (urinary tract infection) Patient with acute confusion, respiratory failure, and VRE UTI with possible bibasilar pneumonia/pneumonitis. She is currently on IV Zyvox and Zosyn. Continue current abx therapy, likely for 7-10 days total. Pending improvement, may be able to transition to PO therapy with PO Augmentin and Zyvox. Will chest repeat CXR today. We will follow. PROVIDER ADDENDUM: Patient reviewed with Ms. Smith. Agree with above assessment.
--- NOTE | 2016-10-13 14:49 | DIAGNOSTIC IMAGING REPORT ---
CHEST 2 VIEWS ROUTINE CLINICAL HISTORY: Bibasal infiltrates. COMPARISON STUDY: 10/11/2016 FINDINGS: The heart is enlarged. The endotracheal tube and nasogastric tubes have been removed. There are old bilateral rib fractures. There are low lung volumes. There is interstitial thickening. Postsurgical changes involve the left humerus. IMPRESSION: 1. Low lung volumes with interstitial thickening 2. Interval removal of the endotracheal tube and nasogastric tubes Electronically signed by: Himanshu Cueot M.D. 10/13/2016 2:47 PM Dictated Date/Time: 10/13/2016 2:46 PM
--- NOTE | 2016-10-13 15:22 | CONSULTATION REPORT ---
DATE OF CONSULTATION: 10/13/2016 DATE OF CONSULTATION: 10/13/2016. CHIEF COMPLAINT: Consultation for consideration of resuming chronic methadone therapy. HISTORY OF PRESENT ILLNESS: Ms. Sommers is a 71-year-old white female who was admitted from [facility] secondary to cognitive impairment with altered mental status which was not responsive to Narcan [facility] the [facility]. The patient is on chronic opiates with Methadone. The patient was found to have UTI during this admission and was subsequently treated. The patient also experienced difficulties with respiratory distress which required intubation. Due to her altered mental status upon admission her opiate therapy was held and has not been resumed at this time. The patient has subsequently been extubated and is improving with regards to her respiratory status as well as her urinary tract infection. She has had minimal complaints of pain upon this admission with minimal utilization of p.r.n. breakthrough pain medications. She is reporting withdrawal type symptoms today with experiencing increased anxiety, "shakiness" and some diarrhea. The patient reports chronic utilization of methadone x9 years for chronic pain associated with her multiple prior surgical interventions including lumbar spine, hip replacement surgeries as well as prior history of a vertebral compression deformity. The patient reports a prior history of withdrawal symptoms similar to current. She reports minimal symptomatic pain complaints at this time. She is unable to identify her predominant pain generator. She is reportedly followed by [facility] physicians at this time but was initiated on methadone by a physician in [place] many years ago. She denies any radicular pattern to her pain complaints. She denies recent falls or injuries. She is unable to report reliable dosing of hydromorphone for breakthrough pain in the outpatient setting at this time. PAST MEDICAL HISTORY: 1. Ambulatory dysfunction. 2. Cholelithiasis. 3. Chronic kidney disease -- stage III. 4. History of lumbar compression fracture. 5. History of thoracic compression fracture. 6. History of gout. 7. Hodgkin's lymphoma. 8. Hyperlipidemia. 9. Hypertension. 10. Bilateral renal artery stenosis. 11. Chronic opioid dependency with methadone. 12. Osteoporosis. 13. History of perforated duodenal ulcer. 14. Secondary hyperparathyroidism. 15. COPD. PAST SURGICAL HISTORY: 1. Kyphoplasty. 2. Left renal artery stent placement. 3. FILIPE. 4. Lumbar spine surgery - multiple reported. FAMILY HISTORY: CAD. SOCIAL HISTORY: The patient denies tobacco, alcohol or illicit drug use. The patient is , currently residing at [facility] and is disabled. ALLERGIES: 1. SQUASH 2. AZITHROMYCIN. 3. LEVOFLOXACIN. CURRENT MEDICATIONS: Reviewed extensively in the EMR -- refer for current list. REVIEW OF SYSTEMS: The patient denies complaints related to cardiac, pulmonary, GI, , endocrine, neurologic, hepatic, renal, ENT, dermatologic, musculoskeletal other than described above in the HPI. PHYSICAL EXAMINATION: VITAL SIGNS: Temperature 37.2 degrees Celsius, pulse 77, respirations 18, BP 152/90, pulse 91 on 2 liters of oxygen via nasal cannula. GENERAL: Ms. Sommers was lying on the bedpan upon entering the room in no acute distress. Speech and thought process are appropriate. Mood and affect was appropriate. Cognition was intact. ASSESSMENT: Physical examination was not performed secondary to her current bedpan utilization. ASSESSMENT: 1. Chronic opiate dependency. 2. Altered mental status upon admission -- unresolved. 3. Acute hypoxic respiratory failure, resolved. 4. Urinary tract infection - improving - vancomycin -resistant enterococci. 5. Physical deconditioning. 6. Possible opiate withdrawal. TREATMENT AND RECOMMENDATIONS: 1. The patient has chronic 9-year utilization of methadone which has extended half life, which may explain limited withdrawal symptoms upon this admission as methadone was held at the time of admission. Would recommend resuming methadone at a lower dose than chronic utilization. Will recommend initiating methadone at 20 mg t.i.d. upon this admission. Would strongly recommend consideration of further dose reduction in the outpatient setting to diminish her opioid dependency. EKG was reviewed which revealed no evidence for QT prolongation, which needs continued monitoring moving forward in the outpatient setting. 2. Will initiate hydrocodone 5/325 one tablet p.o. q.4 hours on a p.r.n. basis for breakthrough pain. Would also recommend discontinuation of hydromorphone in the outpatient setting for p.r.n. breakthrough pain to diminish opioid dependency. 3. Will recommend utilization of Imodium for persisting diarrhea if deemed appropriate per hospitalist service. 4. Will continue to follow during hospital admission. Thank you for the consultation on Ms. Sommers. KISHOR
[2016-10-13] MEDS: LATANOPROST 0.005% OP SOLN 2.5 ML BTL OPR SCH (20:32)
[2016-10-13] MEDS: ZOLPIDEM TARTRATE 5 MG TAB PO PRN (23:39)
[2016-10-14] VITALS (13 sets, daily range): BP systolic 140–155; BP diastolic 86–97; PULSE 71–96; TEMP 36.6–37.1; O2SAT 91–96
[2016-10-14] MEDS: CLONIDINE HCL 0.2 MG/24 HR TRANSDERM SYS TD SCH (01:09)
[2016-10-14] MEDS: PIPERACILL/TAZOBAC IV 4.5 GM in DEXTROSE 5% 100ML IV SCH ×2 (05:40→13:39)
[2016-10-14] MEDS: LINEZOLID / D5W 600 MG in PREMIXED IN D5W 300 ML IV SCH (05:48)
[2016-10-14] MEDS: HEPARIN SOD 5000 UNIT/0.5 ML CARP SQ SCH ×2 (05:49→18:01)
[2016-10-14] MEDS: SUCRALFATE 1 GM/10 ML UDC PO SCH ×4 (05:51→21:25)
[2016-10-14] MEDS: ALBUT/IPRATROP 3MG/0.5MG NEB 3 ML VIAL INH SCH ×4 (07:02→19:11)
[2016-10-14] MEDS: CHECK CLONIDINE PATCH PLACEMENT SCH ×3 (08:00→15:39)
[2016-10-14] MEDS: DICLOFENAC SOD 1% GEL 100 GM TUBE EXT SCH ×5 (09:00→21:00)
[2016-10-14] MEDS: SENNA 8.6 MG TAB PO SCH (09:00)
[2016-10-14] MEDS ORDERED: NURSING VERBAL MED ORDER ONE (09:30)
[2016-10-14] MEDS: CARVEDILOL 25 MG TAB PO SCH ×2 (09:36→21:29)
[2016-10-14] MEDS: PANTOprazole SOD 40 MG TAB PO SCH ×2 (09:36→21:28)
[2016-10-14] MEDS: MULTIVITAMIN TAB PO SCH (09:36)
[2016-10-14] MEDS: AMLODIPINE BESYLATE 5 MG TAB PO SCH (09:37)
[2016-10-14] MEDS: ALLOPURINOL 100 MG TAB PO SCH ×2 (09:37→21:27)
[2016-10-14] MEDS: BACLOFEN 10 MG TAB PO SCH ×2 (09:38→21:28)
[2016-10-14] MEDS: CHOLECALCIFEROL 1000 INTER.UNIT TAB PO SCH (09:38)
[2016-10-14] MEDS: LIDODERM (LIDOCAINE) PATCH 5% TD SCH (09:38)
[2016-10-14] MEDS: CALCITONIN SALMON NA 200 IU/AC 3.7 ML BTL NAE SCH (09:39)
[2016-10-14] MEDS: FLUTICASONE PROPIONATE NA SPR 16 GM BTL NAE SCH ×2 (09:39→21:22)
[2016-10-14] MEDS: FLUTICASONE/SALMETEROL 250/50 (ADVAIR) 14 PUFF/1 INHALER INH SCH ×2 (09:39→21:22)
[2016-10-14] MEDS: MEGESTROL ACETATE SUSP 400 MG/10 ML UDC PO SCH (09:39)
[2016-10-14] MEDS: POTASSIUM CHLORIDE 20 MEQ TABCR PO ONE ×2 (09:45→09:57)
[2016-10-14] MEDS: METHADONE HCL 10 MG TAB PO SCH ×3 (09:52→21:24)
[2016-10-14] MEDS: ONDANSETRON INJ 2 MG/ML 2 ML VIAL IV PRN (10:57)
--- NOTE | 2016-10-14 13:10 | Progress Note ---
Subjective Date of Service: October 14, 2016. Subjective Pt evaluation today including: conversation w/ patient, conversation w/ family , physical exam, chart review, lab review, review of inpatient medication list Problem List Medical Problems: (1) Altered mental status Status: Acute (2) Anemia Status: Acute (3) Bilateral pneumonia Status: Acute (4) CHF (congestive heart failure) Status: Acute (5) Chronic Kidney Disease, Stage Iii (Moderate) Status: Chronic (6) COPD exacerbation Status: Acute (7) COPD exacerbation Status: Acute (8) Crystal arthritis Status: Chronic (9) Duodenal bulb ulcer Status: Chronic (10) Failure of outpatient treatment Status: Acute (11) Failure of outpatient treatment Status: Acute (12) Gout Status: Chronic (13) Hyperlipidemia Nec/Nos Status: Chronic (14) Hypertension Status: Chronic (15) Hypoxemia Status: Acute (16) Hypoxia Status: Acute (17) Hypoxia Status: Acute (18) Hypoxia Status: Acute (19) Hypoxia Status: Acute (20) Lumbar compression fracture Status: Chronic (21) Opiate use Status: Chronic (22) Osteoporosis Status: Chronic (23) Peripheral edema Status: Acute (24) Pneumonia Status: Acute (25) Pneumonia Status: Acute (26) Pneumonia involving right lung Status: Acute (27) Respiratory acidosis Status: Acute (28) Respiratory distress Status: Acute (29) Right renal artery stenosis Status: Chronic (30) Secondary hyperparathyroidism Status: Chronic (31) UTI (urinary tract infection) Status: Acute Review of Systems Constitutional: No chills, No fatigue, No fever, No problem reported, No see HPI, No sweats, No weakness, No weight loss Eyes: No diplopia, No discharge, No eye pain, No problem reported, No redness, No see HPI, No worsening of vision ENT: No dental problems, No hearing loss, No nasal symptoms, No problem reported, No see HPI, No sore throat, No tinnitus, No trouble swallowing, No unusual epistaxis Respiratory: No cough, No dyspnea at rest, No dyspnea on exertion, No hemoptysis, No problem reported, No see HPI, No shortness of breath, No sputum, No wheezing Cardiac: No PND, No chest pain, No claudication, No edema, No orthopnea, No palpitations, No problem reported, No see HPI Breast: No breast lump, No breast pain, No change in shape, No nipple discharge , No problem reported, No see HPI Abdomen: No GI bleeding, No constipation, No diarrhea, No nausea, No pain, No problem reported, No see HPI, No vomiting Musculoskeletal: No calf pain, No joint pain, No muscle pain, No problem reported, No see HPI, No swelling Female : No abnormal vaginal bleeding, No dysuria, No hematuria, No incontinence, No problem reported, No see HPI, No urinary frequency, No vaginal discharge Neurologic: No balance problems, No memory loss, No numbness/tingling, No paralysis, No problem reported, No see HPI, No vertigo, No weakness Psychiatric: No anhedonism, No anxiety, No depression symptoms, No insomnia, No problem reported, No see HPI, No substance abuse Heme: No abnormal bleeding/bruising, No clotting problems, No night sweats, No problem reported, No see HPI, No swollen lymph nodes Endo: No excessive thirst, No excessive urination, No fatigue, No problem reported, No see HPI Skin: No bleeding, No color change, No itch, No new/changing skin lesions, No problem reported, No rash, No see HPI Medications Current Inpatient Medications Medications (Trade) Dose Ordered Sig/Estephania Route Start Time Stop Time Status Last Admin Dose Admin Allopurinol (Zyloprim Tab) 100 mg BID PO 10/05/16 08:00 11/04/16 07:59 10/14/16 09:37 100 MG Amlodipine Besylate (Norvasc Tab) 10 mg DAILY PO 10/05/16 08:00 11/04/16 07:59 10/14/16 09:37 10 MG Baclofen (Lioresal Tab) 10 mg BID PO 10/05/16 08:00 11/04/16 07:59 10/14/16 09:38 10 MG Calcitonin [place] (Fortical Nasal [place]) 1 spray DAILY ERIC 10/05/16 08:00 11/04/16 07:59 10/14/16 09:39 1 SPRAY Carvedilol (Coreg Tab) 25 mg BID PO 10/05/16 08:00 11/04/16 07:59 10/14/16 09:36 25 MG Cholecalciferol (Vitamin D Tab) 2,000 inter.unit DAILY PO 10/05/16 08:00 11/04/16 07:59 10/14/16 09:38 2,000 INTER.UNIT Diclofenac Sodium (Voltaren 1% Top Gel) 1 appln QID EXT 10/05/16 08:00 11/04/16 07:59 10/12/16 20:42 1 APPLN Duloxetine HCl (Cymbalta Cap) 20 mg DAILY PO 10/05/16 08:00 11/04/16 07:59 Future Hold Salmeterol Xinafoate/ Fluticasone (Advair Diskus 250/50 Inh) 1 puff BID INH 10/05/16 08:00 11/04/16 07:59 10/14/16 09:39 1 PUFF Fluticasone Propionate (Flonase Nasal [place]) 1 sprays BID ERIC 10/05/16 08:00 11/04/16 07:59 10/14/16 09:39 1 SPRAYS Hydralazine HCl (Apresoline Tab) 75 mg TID PO 10/05/16 08:00 11/04/16 07:59 10/14/16 09:37 75 MG Latanoprost (Xalatan Oph Soln) 1 drops HS OPR 10/05/16 22:00 11/04/16 21:59 10/13/16 20:32 1 DROPS Lidocaine (Lidoderm Patch 5%) 1 patch DAILY TD 10/05/16 08:00 11/04/16 07:59 10/14/16 09:38 1 PATCH Magnesium Hydroxide (Milk Of Magnesia Susp) 30 ml DAILY PRN PO 10/05/16 05:15 11/04/16 05:14 Multivitamins (Multivitamin Tab) 1 tab DAILY PO 10/05/16 08:00 11/04/16 07:59 10/14/16 09:36 1 TAB Senna (Senokot Tab) 8.6 mg QAM PO 10/05/16 08:00 11/04/16 07:59 10/13/16 08:00 8.6 MG Miscellaneous (Remove Lidoderm Patch) 1 ea DAILY@21 N/A 10/05/16 21:00 11/04/16 20:59 10/13/16 20:38 1 EA Albuterol/ Ipratropium (Duoneb) 3 ml QIDR INH 10/05/16 08:00 11/04/16 07:59 10/14/16 11:18 3 ML Miscellaneous Information (Check Clonidine Patch Placement) 1 ea QS N/A 10/05/16 08:00 11/04/16 07:59 10/14/16 08:00 1 EA Sucralfate (Carafate Susp) 1 gm ACHS PO 10/05/16 06:30 11/04/16 06:29 10/14/16 05:51 1 GM Megestrol Acetate (Megace Susp) 400 mg QAM PO 10/05/16 08:00 11/04/16 07:59 10/14/16 09:39 400 MG Ondansetron HCl 4 mg 4 mg Q4H PRN IV 10/06/16 11:00 11/05/16 10:59 10/14/16 10:57 4 MG Promethazine HCl/ Sodium Chloride (Phenergan Inj/ Nss 50ml) 50.5 ml @ 204 mls/hr Q6H PRN IV 10/07/16 16:00 11/06/16 15:59 10/09/16 17:16 204 MLS/HR Hydralazine HCl (HydrALAZINE INJ) 10 mg Q4H PRN IV. 10/08/16 01:45 11/07/16 01:44 10/09/16 17:16 10 MG Tiotropium [place] 1 puff 1 puff DAILY INH 10/09/16 08:00 11/08/16 07:59 Future Hold Linezolid/Prmx (Zyvox / D5W/ Premixed D5W) 300 ml @ 300 mls/hr Q12@0600,1800 IV 10/08/16 18:00 10/18/16 17:59 10/14/16 05:48 300 MLS/HR Hydromorphone HCl (Dilaudid Inj) 2 mg Q4H PRN IV 10/10/16 15:15 10/24/16 15:14 10/11/16 21:20 2 MG Piperacillin Sod/ Tazobactam Sod 1 ea 1 ea UD PRN N/A 10/10/16 16:30 11/09/16 16:29 Piperacillin Sod/ Tazobactam Sod/ Dextrose (Zosyn Iv/D5 100ml) 120 ml @ 30 mls/hr Q8H IV 10/10/16 22:00 10/17/16 21:59 10/14/16 05:40 30 MLS/HR Heparin Sodium (Porcine) (Heparin 10 Unit/ ml 5 ml Flush) 5 ml PRN PRN FLUSH 10/11/16 02:00 11/10/16 01:59 Pantoprazole Sodium (Protonix Tab) 40 mg BID PO 10/11/16 21:00 11/10/16 20:59 10/14/16 09:36 40 MG Zolpidem Tartrate (Ambien Tab) 5 mg HS PRN PO 10/11/16 23:30 11/10/16 23:29 10/13/16 23:39 5 MG Prednisone (PredniSONE TAB) 40 mg DAILY PO 10/12/16 12:00 11/11/16 11:59 10/14/16 09:37 40 MG Heparin Sodium (Porcine) (Heparin Sq 5000 Unit/0.5ml) 5,000 unit Q12H SQ 10/12/16 18:00 11/11/16 17:59 10/14/16 05:49 5,000 UNIT Methadone HCl (Dolophine Tab) 20 mg TID PO 10/13/16 10:00 10/27/16 09:59 10/14/16 09:52 20 MG Acetaminophen/ Hydrocodone Bitart ([place]amar 5/325 Tab) 1 tab Q4HWA PRN PO 10/13/16 10:00 10/27/16 09:59 Clonidine HCl (Ovinjozb-Qfr-7 0.2mg/24hr Patch) 2 patch Fr@0000 TD 10/14/16 00:00 11/13/16 00:00 10/14/16 01:09 2 PATCH Miscellaneous (Remove Clonidine Patch) 1 ea Th@2359 N/A 10/20/16 23:59 11/19/16 23:58 Objective Vital Signs Date Time Temp Pulse Resp B/P Pulse Ox O2 Delivery O2 Flow Rate FiO2 10/14/16 12:12 86 10/14/16 12:11 Nasal Cannula 2.0 10/14/16 11:18 81 18 95 Nasal Cannula 2.0 10/14/16 10:47 37.1 90 20 155/86 92 Nasal Cannula 2.0 10/14/16 08:00 36.8 83 18 146/92 93 Nasal Cannula 2.0 10/14/16 08:00 Nasal Cannula 2.0 10/14/16 07:02 77 18 96 Nasal Cannula 2.0 10/14/16 04:43 36.6 71 20 145/93 94 Nasal Cannula 2.0 10/14/16 04:00 94 Nasal Cannula 2.0 10/14/16 00:00 94 Nasal Cannula 2.0 10/13/16 23:41 36.8 88 20 122/108 94 Nasal Cannula 2.0 10/13/16 20:00 84 153/84 93 2.0 10/13/16 20:00 93 Nasal Cannula 2.0 10/13/16 19:13 73 18 94 Nasal Cannula 2.0 10/13/16 15:48 85 18 94 Nasal Cannula 2.0 10/13/16 15:43 36.7 86 18 145/79 94 Nasal Cannula 2.0 Physical Exam General Appearance: WD/WN, no apparent distress Eyes: normal inspection, EOMI ENT: normal ENT inspection, hearing grossly normal Neck: supple Respiratory/Chest: chest non-tender, lungs clear, normal breath sounds, no respiratory distress, no accessory muscle use Cardiovascular: regular rate, rhythm, no edema, no gallop, no JVD, no murmur Abdomen: normal bowel sounds, non tender, soft, no organomegaly, no pulsatile mass Extremities: normal range of motion, non-tender, normal inspection, no pedal edema Neurologic/Psychiatric: 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 She is on chronic opiates however did not respond to narcan given in the shelter. Change in mental status, likely multi factorial as below refused psych consult today SIRS POA secondary to below VRE UTI with possible bibasilar pneumonia/pneumonitis. She is currently on IV Zyvox and Zosyn. continue zosyn / vanco empirically as per Dr. Villarreal add probiotics possible accidental narcotics over dose will need bill boxing and observation after discharge hypoglycemia monitor blood sugar oral thrush continue fluconazole / nystatin oral swish heparin SQ for DVT prophylaxis
[2016-10-14] MEDS ORDERED: POTASSIUM CHLR 10 MEQ / WTR 10 MEQ in PREMIXED WATER 100 ML IV ONE (14:30)
--- NOTE | 2016-10-14 16:07 | CARDIOLOGY CONSULTATION ---
DATE OF CONSULTATION: 10/14/2016 REFERRING PHYSICIAN: Shanice Baeza MD CHIEF COMPLAINT: Arrhythmia. HISTORY OF PRESENT ILLNESS: Mrs. Bety Sommers is a 71-year-old female with a very complex medical history who was initially admitted to [facility] with some mental status changes felt related to a urinary tract infection. During her admission, the patient experienced a respiratory arrest and underwent emergency intubation in the intensive care unit. She was subsequently diagnosed with a suspected pneumonia. The patient's clinical condition has continued to improve and she was successful extubated. During her stay in the intensive care unit, quality assurance monitor body reading revealed evidence of atrial arrhythmias and some irregularity in her pulse. As such, cardiology was asked to evaluate. At the bedside today, the patient was alert and oriented. She states that she is free of pain. She has not experienced any chest discomfort. She does have occasions of palpitations that are fairly fleeting in nature and she describes as a fluttering. She states that these are longstanding in nature and generally quite brief that did not appear to be associated with additional symptoms. She cannot report any symptoms of this nature during her hospitalization, however. The symptoms themselves did not tend to produce any dizziness or lightheadedness. In fact, she did not report symptoms of that nature at any time. She has not recently suffered a syncopal episode. She is generally not ambulatory and spends most of her time in a wheelchair. Currently, she feels quite comfortable. She denies significant breathing difficulty. Her main complaint is overall edema and feeling as if she is swollen. PAST MEDICAL HISTORY: Quite extensive and includes hypertension, history of peptic ulcer disease, chronic renal insufficiency with a history of acute kidney injury, anemia, opioid dependence currently on methadone, lower extremity edema which is chronic, diastolic heart failure, gout, hyperlipidemia, hyperparathyroidism, history of non-Hodgkin's lymphoma, recurrent pneumonia, renal artery stenosis. PAST SURGICAL HISTORY: Significant for back surgery, gynecologic surgery, exploratory laparotomy and renal stenting. SOCIAL HISTORY: Currently resident of [facility]. She is depending on opioids and is currently using methadone. She has a remote history of tobacco abuse, currently not drinking alcohol. FAMILY HISTORY: No family history of premature coronary disease. REVIEW OF SYSTEMS: A complete 10-system review of systems was performed and the pertinent positives noted in the history of present illness, the remainder being negative. She does have a notable edema both in the legs and upper extremities. She states that her appetite is slightly poor, but she has been tolerating a regular diet. She has been minimally ambulatory. PHYSICAL EXAMINATION: GENERAL: She was alert and oriented, mood and affect appeared normal. She answered all questions appropriately. CURRENT VITAL SIGNS: Include blood pressure 155/86 with a pulse of 90. HEENT: Her sclerae are anicteric. Her pupils are equal, reactive to light and accommodation. Extraocular movements were intact. Palpation of submandibular region did not reveal any significant lymphadenopathy. NECK: I do not appreciate any jugular venous distention, although the neck tissue was somewhat redundant. Carotids are palpable bilaterally. There are no bruits on auscultation. LUNGS: Auscultation of the lung apices revealed occasional upper airway sounds and no expiratory wheezing. She had good air movement. She had normal respiratory effort without use of accessory muscles. CARDIAC: Revealed her to be in a regular rhythm with frequent ectopy. I do not appreciate any murmurs; however. ABDOMEN: Soft and nontender. EXTREMITIES: Evaluation of both wrists revealed radial pulses that were equal in intensity. There is no evidence of cyanosis or clubbing. Evaluation of her lower extremities revealed marked peripheral edema to the level of the knee. There were no rashes on exam today, but the patient had diffuse ecchymosis. LABORATORY AND IMAGING STUDIES: Obtained today include a white cell count of 14, hemoglobin of 9.5, and a platelet count of 192. Sodium is 140, potassium is 3.4, BUN was 21, and creatinine was 1.7. N-terminal ProBNP at the time of admission was 16,000. Cardiac troponins were drawn during this admission on several occasions, all of them in the normal range. Multiple 12-lead EKGs had been obtained during admission. The most recent 12-lead EKG revealed the patient to be in a sinus rhythm with occasional atrial ectopy and aberrantly conducted beats. The overall QTC was slightly prolonged at 479. There were no acute ST or T-wave changes. Echocardiogram has also been obtained during this admission which revealed the patient had preserved left ventricular systolic function with type 1 diastolic dysfunction. There was mild mitral regurgitation. A single view chest x-ray was obtained yesterday which revealed some low lung volume, but no other acute processes. ASSESSMENT AND PLAN: 1. Arrhythmia: A Review of the patient's telemetry and her EKG suggest that the arrhythmia is ectopic atrial rhythm with runs of an ectopic atrial tachycardia. This could represent ectopy from a pulmonary vein source. Given her preserved left ventricular systolic function, this is a benign finding in the absence of symptoms. She does report some symptoms associated with palpitations and likely this arrhythmia, but these are fairly minor in nature and longstanding. She is on carvedilol at the maximum dose, and I think as her clinical course improves and her electrolytes replaced, we may see less of the atrial ectopy. She does have an element of hypokalemia and once this is addressed, we can reassess the need for any additional medical therapy. 2. Chronic pain: The patient has been treated with methadone and there was some concern regarding excessive use of methadone. Her QTC is slightly prolonged on her most recent EKG. Caution should be taken with use of methadone due to its potential for proarrhythmia. If there is an alternative medication that should be explored. In any event, given her preserved left ventricular systolic function her risk for malignant arrhythmia is lower. It would be imperative to maintain good electrolytes levels, however. A daily EKG would also be advisable. 3. Acute decompensated diastolic heart failure. The patient does have an element of mild diastolic dysfunction that is generally consistent with age. However, she did have significant elevated ProBNP at the time of her admission suggesting an element of decompensation. She certainly has an element of overall edema on exam currently and is clearly volume overload. Her diuresis is complicated by the use of steroids, her renal dysfunction, and the need for intravenous administration of several medications. At this point in time, she does not appear to have significant dyspnea; however, I would advocate closely monitoring of a volume status and at some point, she will need to mobilize this fluid at which point diuresis will need to be entertained. MTDD
[2016-10-14] MEDS: AMOXICILLIN/CLAVULANATE TAB 875 MG TAB PO SCH (16:30)
[2016-10-14] MEDS: NYSTATIN SUSP 500,000 U/5 ML UDC PO SCH ×2 (18:10→21:25)
[2016-10-14] MEDS: LATANOPROST 0.005% OP SOLN 2.5 ML BTL OPR SCH (21:24)
[2016-10-14] MEDS: LINEZOLID 600 MG TAB PO SCH (21:29)
[2016-10-15] VITALS (9 sets, daily range): BP systolic 146–161; BP diastolic 85–97; PULSE 75–97; TEMP 36.7–37.1; O2SAT 91–95
[2016-10-15] MEDS: ZOLPIDEM TARTRATE 5 MG TAB PO PRN (00:03)
[2016-10-15] MEDS: CHECK CLONIDINE PATCH PLACEMENT SCH ×3 (00:03→16:00)
[2016-10-15] MEDS: HEPARIN SOD 5000 UNIT/0.5 ML CARP SQ SCH ×2 (06:00→17:10)
[2016-10-15 06:53] LABS: BASO % 0.1 %; BASO ABS # 0.01 K/uL (0-0.2); HEMATOCRIT 26.6 % (37-47); IG% 0.8 %; LYMPH % 6.2 %; LYMPH ABS # 0.82 K/uL (1.2-3.4); MEAN CELL VOLUME 85.5 fL (80-100); MEAN CORPUSCULAR HGB CONC 32.7 g/dl (32-36); MONO % 10.6 %; NEUT % 82.3 %; PLATELET COUNT 188 K/uL (130-400); RED BLOOD COUNT 3.11 M/uL (4.2-5.4); WHITE BLOOD COUNT 13.29 K/uL (4.8-10.8)
[2016-10-15] MEDS: ALBUT/IPRATROP 3MG/0.5MG NEB 3 ML VIAL INH SCH ×4 (07:02→19:38)
[2016-10-15 07:15] LABS: BUN/CREATININE RATIO 13.4 (10-20); CALCIUM 8.1 mg/dl (8.5-10.1); CREATININE 1.5 mg/dl (0.60-1.20); MAGNESIUM 2.1 mg/dl (1.8-2.4); POTASSIUM 3.5 mmol/L (3.5-5.1)
[2016-10-15 07:25] LABS: COMPLETE YES; HYPERSEGMENTED POLYS 2+
[2016-10-15 07:31] LABS: ALB/GLOB RATIO 0.9 (0.9-2); PHOSPHORUS 1.1 mg/dl (2.5-4.9)
[2016-10-15] MEDS: METHADONE HCL 10 MG TAB PO SCH ×3 (08:23→21:34)
[2016-10-15] MEDS: SUCRALFATE 1 GM/10 ML UDC PO SCH ×4 (08:23→21:29)
[2016-10-15] MEDS: AMOXICILLIN/CLAVULANATE TAB 875 MG TAB PO SCH ×2 (08:24→17:07)
[2016-10-15] MEDS: DICLOFENAC SOD 1% GEL 100 GM TUBE EXT SCH ×4 (08:24→21:00)
[2016-10-15] MEDS: FLUTICASONE/SALMETEROL 250/50 (ADVAIR) 14 PUFF/1 INHALER INH SCH ×2 (08:25→21:29)
[2016-10-15] MEDS: LINEZOLID 600 MG TAB PO SCH ×2 (08:25→21:29)
[2016-10-15] MEDS: FLUTICASONE PROPIONATE NA SPR 16 GM BTL NAE SCH ×2 (08:25→21:28)
[2016-10-15] MEDS: SENNA 8.6 MG TAB PO SCH (08:26)
[2016-10-15] MEDS: PANTOprazole SOD 40 MG TAB PO SCH ×2 (08:27→21:29)
[2016-10-15] MEDS: CARVEDILOL 25 MG TAB PO SCH ×2 (08:27→21:29)
[2016-10-15] MEDS: MULTIVITAMIN TAB PO SCH (08:27)
[2016-10-15] MEDS: ALLOPURINOL 100 MG TAB PO SCH ×2 (08:27→21:29)
[2016-10-15] MEDS: NYSTATIN SUSP 500,000 U/5 ML UDC PO SCH ×4 (08:28→21:29)
[2016-10-15] MEDS: CHOLECALCIFEROL 1000 INTER.UNIT TAB PO SCH (08:28)
[2016-10-15] MEDS: MEGESTROL ACETATE SUSP 400 MG/10 ML UDC PO SCH (08:28)
[2016-10-15] MEDS: BACLOFEN 10 MG TAB PO SCH ×2 (08:28→21:30)
[2016-10-15] MEDS: AMLODIPINE BESYLATE 5 MG TAB PO SCH (08:28)
[2016-10-15] MEDS: CALCITONIN SALMON NA 200 IU/AC 3.7 ML BTL NAE SCH (08:29)
[2016-10-15] MEDS: LIDODERM (LIDOCAINE) PATCH 5% TD SCH (08:29)
[2016-10-15] MEDS: ONDANSETRON INJ 2 MG/ML 2 ML VIAL IV PRN (08:47)
[2016-10-15] MEDS ORDERED: POTASSIUM PHOS 3 MMOL/1 ML INFUSION IV STA (10:35)
[2016-10-15] MEDS ORDERED: POTASSIUM PHOSPHATE INJ 15 MMOL in SODIUM CHLORIDE 0.9% 250ML 250 ML IV SCH (11:15)
--- NOTE | 2016-10-15 13:39 | Progress Note ---
Subjective Date of Service: October 15, 2016. Subjective Pt evaluation today including: conversation w/ patient, conversation w/ family , physical exam, chart review, lab review, review of inpatient medication list Problem List Medical Problems: (1) Altered mental status Status: Acute (2) Anemia Status: Acute (3) Bilateral pneumonia Status: Acute (4) CHF (congestive heart failure) Status: Acute (5) Chronic Kidney Disease, Stage Iii (Moderate) Status: Chronic (6) COPD exacerbation Status: Acute (7) COPD exacerbation Status: Acute (8) Crystal arthritis Status: Chronic (9) Duodenal bulb ulcer Status: Chronic (10) Failure of outpatient treatment Status: Acute (11) Failure of outpatient treatment Status: Acute (12) Gout Status: Chronic (13) Hyperlipidemia Nec/Nos Status: Chronic (14) Hypertension Status: Chronic (15) Hypoxemia Status: Acute (16) Hypoxia Status: Acute (17) Hypoxia Status: Acute (18) Hypoxia Status: Acute (19) Hypoxia Status: Acute (20) Lumbar compression fracture Status: Chronic (21) Opiate use Status: Chronic (22) Osteoporosis Status: Chronic (23) Peripheral edema Status: Acute (24) Pneumonia Status: Acute (25) Pneumonia Status: Acute (26) Pneumonia involving right lung Status: Acute (27) Respiratory acidosis Status: Acute (28) Respiratory distress Status: Acute (29) Right renal artery stenosis Status: Chronic (30) Secondary hyperparathyroidism Status: Chronic (31) UTI (urinary tract infection) Status: Acute Review of Systems Constitutional: No chills, No fatigue, No fever, No problem reported, No see HPI, No sweats, No weakness, No weight loss Eyes: No diplopia, No discharge, No eye pain, No problem reported, No redness, No see HPI, No worsening of vision ENT: No dental problems, No hearing loss, No nasal symptoms, No problem reported, No see HPI, No sore throat, No tinnitus, No trouble swallowing, No unusual epistaxis Respiratory: No cough, No dyspnea at rest, No dyspnea on exertion, No hemoptysis, No problem reported, No see HPI, No shortness of breath, No sputum, No wheezing Cardiac: No PND, No chest pain, No claudication, No edema, No orthopnea, No palpitations, No problem reported, No see HPI Abdomen: + diarrhea, No GI bleeding, No constipation, No nausea, No pain, No problem reported, No see HPI, No vomiting Musculoskeletal: No calf pain, No joint pain, No muscle pain, No problem reported, No see HPI, No swelling Female : No abnormal vaginal bleeding, No dysuria, No hematuria, No incontinence, No problem reported, No see HPI, No urinary frequency, No vaginal discharge Neurologic: No balance problems, No memory loss, No numbness/tingling, No paralysis, No problem reported, No see HPI, No vertigo, No weakness Psychiatric: No anhedonism, No anxiety, No depression symptoms, No insomnia, No problem reported, No see HPI, No substance abuse Heme: No abnormal bleeding/bruising, No clotting problems, No night sweats, No problem reported, No see HPI, No swollen lymph nodes Endo: No excessive thirst, No excessive urination, No fatigue, No problem reported, No see HPI Skin: No bleeding, No color change, No itch, No new/changing skin lesions, No problem reported, No rash, No see HPI Medications Current Inpatient Medications Medications (Trade) Dose Ordered Sig/Estephania Route Start Time Stop Time Status Last Admin Dose Admin Allopurinol (Zyloprim Tab) 100 mg BID PO 10/05/16 08:00 11/04/16 07:59 10/15/16 08:27 100 MG Amlodipine Besylate (Norvasc Tab) 10 mg DAILY PO 10/05/16 08:00 11/04/16 07:59 10/15/16 08:28 10 MG Baclofen (Lioresal Tab) 10 mg BID PO 10/05/16 08:00 11/04/16 07:59 10/15/16 08:28 10 MG Calcitonin [place] (Fortical Nasal [place]) 1 spray DAILY ERIC 10/05/16 08:00 11/04/16 07:59 10/15/16 08:29 1 SPRAY Carvedilol (Coreg Tab) 25 mg BID PO 10/05/16 08:00 11/04/16 07:59 10/15/16 08:27 25 MG Cholecalciferol (Vitamin D Tab) 2,000 inter.unit DAILY PO 10/05/16 08:00 11/04/16 07:59 10/15/16 08:28 2,000 INTER.UNIT Diclofenac Sodium (Voltaren 1% Top Gel) 1 appln QID EXT 10/05/16 08:00 11/04/16 07:59 10/15/16 08:24 1 APPLN Duloxetine HCl (Cymbalta Cap) 20 mg DAILY PO 10/05/16 08:00 11/04/16 07:59 Future Hold Salmeterol Xinafoate/ Fluticasone (Advair Diskus 250/50 Inh) 1 puff BID INH 10/05/16 08:00 11/04/16 07:59 10/15/16 08:25 1 PUFF Fluticasone Propionate (Flonase Nasal [place]) 1 sprays BID ERIC 10/05/16 08:00 11/04/16 07:59 10/15/16 08:25 1 SPRAYS Hydralazine HCl (Apresoline Tab) 75 mg TID PO 10/05/16 08:00 11/04/16 07:59 10/15/16 08:26 75 MG Latanoprost (Xalatan Oph Soln) 1 drops HS OPR 10/05/16 22:00 11/04/16 21:59 10/14/16 21:24 1 DROPS Lidocaine (Lidoderm Patch 5%) 1 patch DAILY TD 10/05/16 08:00 11/04/16 07:59 10/15/16 08:29 1 PATCH Magnesium Hydroxide (Milk Of Magnesia Susp) 30 ml DAILY PRN PO 10/05/16 05:15 11/04/16 05:14 Multivitamins (Multivitamin Tab) 1 tab DAILY PO 10/05/16 08:00 11/04/16 07:59 10/15/16 08:27 1 TAB Senna (Senokot Tab) 8.6 mg QAM PO 10/05/16 08:00 11/04/16 07:59 10/13/16 08:00 8.6 MG Miscellaneous (Remove Lidoderm Patch) 1 ea DAILY@21 N/A 10/05/16 21:00 11/04/16 20:59 10/14/16 21:26 1 EA Albuterol/ Ipratropium (Duoneb) 3 ml QIDR INH 10/05/16 08:00 11/04/16 07:59 10/15/16 11:50 3 ML Miscellaneous Information (Check Clonidine Patch Placement) 1 ea QS N/A 10/05/16 08:00 11/04/16 07:59 10/15/16 08:00 1 EA Sucralfate (Carafate Susp) 1 gm ACHS PO 10/05/16 06:30 11/04/16 06:29 10/15/16 11:27 1 GM Megestrol Acetate (Megace Susp) 400 mg QAM PO 10/05/16 08:00 11/04/16 07:59 10/15/16 08:28 400 MG Ondansetron HCl 4 mg 4 mg Q4H PRN IV 10/06/16 11:00 11/05/16 10:59 10/15/16 08:47 4 MG Promethazine HCl/ Sodium Chloride (Phenergan Inj/ Nss 50ml) 50.5 ml @ 204 mls/hr Q6H PRN IV 10/07/16 16:00 11/06/16 15:59 10/09/16 17:16 204 MLS/HR Hydralazine HCl (HydrALAZINE INJ) 10 mg Q4H PRN IV. 10/08/16 01:45 11/07/16 01:44 10/09/16 17:16 10 MG Tiotropium [place] (Spiriva Handihaler Inhaler) 1 puff DAILY INH 10/09/16 08:00 11/08/16 07:59 Future Hold Hydromorphone HCl (Dilaudid Inj) 2 mg Q4H PRN IV 10/10/16 15:15 10/24/16 15:14 10/11/16 21:20 2 MG Heparin Sodium (Porcine) (Heparin 10 Unit/ ml 5 ml Flush) 5 ml PRN PRN FLUSH 10/11/16 02:00 11/10/16 01:59 Pantoprazole Sodium (Protonix Tab) 40 mg BID PO 10/11/16 21:00 11/10/16 20:59 10/15/16 08:27 40 MG Zolpidem Tartrate (Ambien Tab) 5 mg HS PRN PO 10/11/16 23:30 11/10/16 23:29 10/15/16 00:03 5 MG Prednisone (PredniSONE TAB) 40 mg DAILY PO 10/12/16 12:00 11/11/16 11:59 10/15/16 08:26 40 MG Heparin Sodium (Porcine) (Heparin Sq 5000 Unit/0.5ml) 5,000 unit Q12H SQ 5/17/17 18:00 11/11/16 17:59 10/14/16 18:01 5,000 UNIT Acetaminophen/ Hydrocodone Bitart ([place] 5/325 Tab) 1 tab Q4HWA PRN PO 10/13/16 10:00 10/27/16 09:59 Clonidine HCl ([id number]-Mgz-7 0.2mg/24hr Patch) 2 patch Fr@0000 TD 10/14/16 00:00 11/13/16 00:00 10/14/16 01:09 2 PATCH Miscellaneous (Remove Clonidine Patch) 1 ea Th@2359 N/A 10/20/16 23:59 11/19/16 23:58 Nystatin (Mycostatin Susp) 5 ml QID PO 10/14/16 17:00 10/20/16 16:59 10/15/16 08:28 5 ML Amoxicillin/ Clavulanate Potassium (Augmentin Tab) 875 mg BIDM PO 10/14/16 16:45 10/17/16 23:59 10/15/16 08:24 875 MG Linezolid (Zyvox Tab) 600 mg BID PO 10/14/16 21:00 10/18/16 20:59 10/15/16 08:25 600 MG Potassium/ Phosphorus/Sodium 1 tab 1 tab QID PO 10/15/16 13:00 11/14/16 12:59 Potassium Phosphate/Sodium Chloride (Potassium Phosphate Inj/Nss 250ml) 255 ml @ 88 mls/hr TODAY@1115 IV 10/15/16 11:15 10/15/16 14:09 10/15/16 11:27 88 MLS/HR Methadone HCl (Dolophine Tab) 20 mg TID PO 10/15/16 14:00 10/29/16 13:59 UNV Objective Vital Signs Date Time Temp Pulse Resp B/P Pulse Ox O2 Delivery O2 Flow Rate FiO2 10/15/16 12:00 92 Nasal Cannula 2.0 10/15/16 11:51 84 18 92 Nasal Cannula 2.0 10/15/16 11:41 36.7 88 18 151/97 91 Nasal Cannula 2.0 10/15/16 08:00 Nasal Cannula 2.0 10/15/16 07:52 37.0 85 20 158/97 92 Nasal Cannula 2.0 10/15/16 04:33 36.8 80 20 161/94 95 Nasal Cannula 2.0 10/15/16 04:00 Nasal Cannula 2.0 10/15/16 00:00 Nasal Cannula 2.0 10/14/16 23:41 37.1 96 22 142/90 91 Nasal Cannula 2.0 10/14/16 20:00 Nasal Cannula 2.0 10/14/16 19:35 37.0 83 18 153/97 93 Nasal Cannula 2.0 10/14/16 19:11 88 18 91 Nasal Cannula 2.0 10/14/16 16:41 36.7 78 22 140/97 93 Nasal Cannula 2.0 10/14/16 16:00 95 Nasal Cannula 2.0 40 Physical Exam General Appearance: WD/WN, + mild distress Eyes: normal inspection, EOMI ENT: normal ENT inspection, hearing grossly normal Neck: supple Respiratory/Chest: chest non-tender, lungs clear, normal breath sounds, no respiratory distress Cardiovascular: regular rate, rhythm, no edema, no gallop, no JVD, no murmur Abdomen: normal bowel sounds, non tender, soft, no organomegaly Extremities: normal range of motion, non-tender, normal inspection, no pedal edema 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, no motor/sensory deficits, alert, normal mood/affect, oriented x 3 Skin: normal color, warm/dry, no rash Laboratory Results Last 24 Hours Test 10/15/16 06:34 White Blood Count 13.29 K/uL Red Blood Count 3.11 M/uL Hemoglobin 8.7 g/dL Hematocrit 26.6 % Mean Corpuscular Volume 85.5 fL Mean Corpuscular Hemoglobin 28.0 pg Mean Corpuscular Hemoglobin Concent 32.7 g/dl Platelet Count 188 K/uL Mean Platelet Volume 10.0 fL Neutrophils (%) (Auto) 82.3 % Lymphocytes (%) (Auto) 6.2 % Monocytes (%) (Auto) 10.6 % Eosinophils (%) (Auto) 0.0 % Basophils (%) (Auto) 0.1 % Neutrophils # (Auto) 10.94 K/uL Lymphocytes # (Auto) 0.82 K/uL Monocytes # (Auto) 1.41 K/uL Eosinophils # (Auto) 0.00 K/uL Basophils # (Auto) 0.01 K/uL RDW Standard Deviation 51.9 fL RDW Coefficient of Variation 16.7 % Immature Granulocyte % (Auto) 0.8 % Immature Granulocyte # (Auto) 0.11 K/uL Hypersegmented Polys 2+ Sodium Level 143 mmol/L Potassium Level 3.5 mmol/L Chloride Level 108 mmol/L Carbon Dioxide Level 27 mmol/L Anion Gap 8.0 mmol/L Blood Urea Nitrogen 20 mg/dl Creatinine 1.50 mg/dl Est Creatinine Clear Calc Drug Dose 28.9 ml/min Estimated GFR () 40.8 Estimated GFR (Non- 35.2 BUN/Creatinine Ratio 13.4 Random Glucose 85 mg/dl Calcium Level 8.1 mg/dl Phosphorus Level 1.1 mg/dl Magnesium Level 2.1 mg/dl Total Bilirubin 0.4 mg/dl Aspartate Amino Transf (AST/SGOT) 17 U/L Alanine Aminotransferase (ALT/SGPT) 18 U/L Alkaline Phosphatase 77 U/L Total Protein 5.4 gm/dl Albumin 2.5 gm/dl Globulin 2.9 gm/dl Albumin/Globulin Ratio 0.9 Assessment and Plan 71 year old female from [facility] who presents to the ER for lethargy and altered mental state. She is on chronic opiates however did not respond to narcan given in the half-way. Change in mental status, likely multi factorial as below, resolved refused psych consult as inpatient SIRS POA secondary to below VRE UTI with possible bibasilar pneumonia/pneumonitis. She is currently on IV Zyvox and Zosyn. continue PCN / zyvox empirically as per Dr. Villarreal add probiotics possible accidental narcotics over dose / methadone dependant will need bill boxing and observation after discharge increased methadone to 20mg TID as per her request hypoglycemia monitor blood sugar oral thrush continue fluconazole / nystatin oral swish heparin SQ for DVT prophylaxis
[2016-10-15] MEDS: POT PHOSPHATE MONOBASIC W/ SOD TAB PO SCH ×3 (14:14→21:29)
[2016-10-15] MEDS: LATANOPROST 0.005% OP SOLN 2.5 ML BTL OPR SCH (21:29)
[2016-10-16] VITALS (9 sets, daily range): BP systolic 128–165; BP diastolic 64–100; PULSE 75–95; TEMP 36.4–36.8; O2SAT 92–94
[2016-10-16] MEDS: CHECK CLONIDINE PATCH PLACEMENT SCH ×3 (00:26→16:00)
[2016-10-16] MEDS: ZOLPIDEM TARTRATE 5 MG TAB PO PRN (00:49)
[2016-10-16] MEDS: HEPARIN SOD 5000 UNIT/0.5 ML CARP SQ SCH ×2 (05:48→16:25)
[2016-10-16] MEDS: ALBUT/IPRATROP 3MG/0.5MG NEB 3 ML VIAL INH SCH ×4 (07:34→19:36)
[2016-10-16 07:35] LABS: BASO % 0.1 %; BASO ABS # 0.01 K/uL (0-0.2); HEMATOCRIT 27.2 % (37-47); IG% 1.1 %; LYMPH % 7.5 %; LYMPH ABS # 1.07 K/uL (1.2-3.4); MEAN CELL VOLUME 85.8 fL (80-100); MEAN CORPUSCULAR HEMOGLOBIN 27.8 pg (25-34); MEAN CORPUSCULAR HGB CONC 32.4 g/dl (32-36); MEAN PLATELET VOLUME 9.9 fL (7.4-10.4); MONO % 10.2 %; NEUT % 81.1 %; PLATELET COUNT 197 K/uL (130-400); RED BLOOD COUNT 3.17 M/uL (4.2-5.4)
[2016-10-16] MEDS: SUCRALFATE 1 GM/10 ML UDC PO SCH ×4 (07:53→22:50)
[2016-10-16] MEDS: FLUTICASONE PROPIONATE NA SPR 16 GM BTL NAE SCH ×2 (07:53→22:49)
[2016-10-16] MEDS: FLUTICASONE/SALMETEROL 250/50 (ADVAIR) 14 PUFF/1 INHALER INH SCH ×2 (07:53→22:49)
[2016-10-16] MEDS: CALCITONIN SALMON NA 200 IU/AC 3.7 ML BTL NAE SCH (07:54)
[2016-10-16] MEDS: NYSTATIN SUSP 500,000 U/5 ML UDC PO SCH ×4 (07:55→22:50)
[2016-10-16] MEDS: AMOXICILLIN/CLAVULANATE TAB 875 MG TAB PO SCH ×2 (07:55→16:52)
[2016-10-16] MEDS: CARVEDILOL 25 MG TAB PO SCH ×2 (07:56→22:50)
[2016-10-16] MEDS: DICLOFENAC SOD 1% GEL 100 GM TUBE EXT SCH ×4 (07:57→21:00)
[2016-10-16] MEDS: SENNA 8.6 MG TAB PO SCH (07:57)
[2016-10-16] MEDS: PANTOprazole SOD 40 MG TAB PO SCH ×2 (07:57→22:51)
[2016-10-16] MEDS: LINEZOLID 600 MG TAB PO SCH ×2 (07:57→21:27)
[2016-10-16] MEDS: POT PHOSPHATE MONOBASIC W/ SOD TAB PO SCH ×4 (07:58→21:28)
[2016-10-16] MEDS: BACLOFEN 10 MG TAB PO SCH ×2 (07:58→22:50)
[2016-10-16] MEDS: MULTIVITAMIN TAB PO SCH (07:58)
[2016-10-16] MEDS: MEGESTROL ACETATE SUSP 400 MG/10 ML UDC PO SCH (07:59)
[2016-10-16] MEDS: AMLODIPINE BESYLATE 5 MG TAB PO SCH (08:00)
[2016-10-16] MEDS: ALLOPURINOL 100 MG TAB PO SCH ×2 (08:00→22:52)
[2016-10-16] MEDS: CHOLECALCIFEROL 1000 INTER.UNIT TAB PO SCH (08:00)
[2016-10-16] MEDS: LIDODERM (LIDOCAINE) PATCH 5% TD SCH (08:01)
[2016-10-16 08:08] LABS: BUN/CREATININE RATIO 15.4 (10-20); CALCIUM 8.1 mg/dl (8.5-10.1); CREATININE 1.4 mg/dl (0.60-1.20); MAGNESIUM 2.2 mg/dl (1.8-2.4); POTASSIUM 3.3 mmol/L (3.5-5.1)
[2016-10-16] MEDS: METHADONE HCL 10 MG TAB PO SCH ×3 (08:11→22:51)
[2016-10-16 08:13] LABS: ALB/GLOB RATIO 0.9 (0.9-2); COMPLETE YES; HYPERSEGMENTED POLYS 1+; PHOSPHORUS 1.7 mg/dl (2.5-4.9)
[2016-10-16] MEDS: ONDANSETRON INJ 2 MG/ML 2 ML VIAL IV PRN (08:14)
--- NOTE | 2016-10-16 11:05 | Progress Note ---
Subjective Date of Service: October 16, 2016. Subjective Pt evaluation today including: conversation w/ patient, physical exam, chart review, lab review, review of inpatient medication list Problem List Medical Problems: (1) Altered mental status Status: Acute (2) Anemia Status: Acute (3) Bilateral pneumonia Status: Acute (4) CHF (congestive heart failure) Status: Acute (5) Chronic Kidney Disease, Stage Iii (Moderate) Status: Chronic (6) COPD exacerbation Status: Acute (7) COPD exacerbation Status: Acute (8) Crystal arthritis Status: Chronic (9) Duodenal bulb ulcer Status: Chronic (10) Failure of outpatient treatment Status: Acute (11) Failure of outpatient treatment Status: Acute (12) Gout Status: Chronic (13) Hyperlipidemia Nec/Nos Status: Chronic (14) Hypertension Status: Chronic (15) Hypoxemia Status: Acute (16) Hypoxia Status: Acute (17) Hypoxia Status: Acute (18) Hypoxia Status: Acute (19) Hypoxia Status: Acute (20) Lumbar compression fracture Status: Chronic (21) Opiate use Status: Chronic (22) Osteoporosis Status: Chronic (23) Peripheral edema Status: Acute (24) Pneumonia Status: Acute (25) Pneumonia Status: Acute (26) Pneumonia involving right lung Status: Acute (27) Respiratory acidosis Status: Acute (28) Respiratory distress Status: Acute (29) Right renal artery stenosis Status: Chronic (30) Secondary hyperparathyroidism Status: Chronic (31) UTI (urinary tract infection) Status: Acute Review of Systems Constitutional: No chills, No fatigue, No fever, No problem reported, No see HPI, No sweats, No weakness, No weight loss Eyes: No diplopia, No discharge, No eye pain, No problem reported, No redness, No see HPI, No worsening of vision ENT: No dental problems, No hearing loss, No nasal symptoms, No problem reported, No see HPI, No sore throat, No tinnitus, No trouble swallowing, No unusual epistaxis Respiratory: No cough, No dyspnea at rest, No dyspnea on exertion, No hemoptysis, No problem reported, No see HPI, No shortness of breath, No sputum, No wheezing Cardiac: No PND, No chest pain, No claudication, No edema, No orthopnea, No palpitations, No problem reported, No see HPI Abdomen: No GI bleeding, No constipation, No diarrhea, No nausea, No pain, No problem reported, No see HPI, No vomiting Musculoskeletal: No calf pain, No joint pain, No muscle pain, No problem reported, No see HPI, No swelling Neurologic: No balance problems, No memory loss, No numbness/tingling, No paralysis, No problem reported, No see HPI, No vertigo, No weakness Psychiatric: No anhedonism, No anxiety, No depression symptoms, No insomnia, No problem reported, No see HPI, No substance abuse Heme: No abnormal bleeding/bruising, No clotting problems, No night sweats, No problem reported, No see HPI, No swollen lymph nodes Endo: No excessive thirst, No excessive urination, No fatigue, No problem reported, No see HPI Skin: No bleeding, No color change, No itch, No new/changing skin lesions, No problem reported, No rash, No see HPI Medications Current Inpatient Medications Medications (Trade) Dose Ordered Sig/Estephania Route Start Time Stop Time Status Last Admin Dose Admin Allopurinol (Zyloprim Tab) 100 mg BID PO 10/05/16 08:00 11/04/16 07:59 10/16/16 08:00 100 MG Amlodipine Besylate (Norvasc Tab) 10 mg DAILY PO 10/05/16 08:00 11/04/16 07:59 10/16/16 08:00 10 MG Baclofen (Lioresal Tab) 10 mg BID PO 10/05/16 08:00 11/04/16 07:59 10/16/16 07:58 10 MG Calcitonin [place] (Fortical Nasal [place]) 1 spray DAILY ERIC 10/05/16 08:00 11/04/16 07:59 10/16/16 07:54 1 SPRAY Carvedilol (Coreg Tab) 25 mg BID PO 10/05/16 08:00 11/04/16 07:59 10/16/16 07:56 25 MG Cholecalciferol (Vitamin D Tab) 2,000 inter.unit DAILY PO 10/05/16 08:00 11/04/16 07:59 10/16/16 08:00 2,000 INTER.UNIT Diclofenac Sodium (Voltaren 1% Top Gel) 1 appln QID EXT 10/05/16 08:00 11/04/16 07:59 10/15/16 17:00 1 APPLN Duloxetine HCl (Cymbalta Cap) 20 mg DAILY PO 10/05/16 08:00 11/04/16 07:59 Future Hold Salmeterol Xinafoate/ Fluticasone (Advair Diskus 250/50 Inh) 1 puff BID INH 10/05/16 08:00 11/04/16 07:59 10/16/16 07:53 1 PUFF Fluticasone Propionate (Flonase Nasal [place]) 1 sprays BID ERIC 10/05/16 08:00 11/04/16 07:59 10/16/16 07:53 1 SPRAYS Hydralazine HCl (Apresoline Tab) 75 mg TID PO 10/05/16 08:00 11/04/16 07:59 10/16/16 08:01 75 MG Latanoprost (Xalatan Oph Soln) 1 drops HS OPR 10/05/16 22:00 11/04/16 21:59 10/15/16 21:29 1 DROPS Lidocaine (Lidoderm Patch 5%) 1 patch DAILY TD 10/05/16 08:00 11/04/16 07:59 10/16/16 08:01 1 PATCH Magnesium Hydroxide (Milk Of Magnesia Susp) 30 ml DAILY PRN PO 10/05/16 05:15 11/04/16 05:14 Multivitamins (Multivitamin Tab) 1 tab DAILY PO 10/05/16 08:00 11/04/16 07:59 10/16/16 07:58 1 TAB Senna (Senokot Tab) 8.6 mg QAM PO 10/05/16 08:00 11/04/16 07:59 10/13/16 08:00 8.6 MG Miscellaneous (Remove Lidoderm Patch) 1 ea DAILY@21 N/A 10/05/16 21:00 11/04/16 20:59 10/14/16 21:26 1 EA Albuterol/ Ipratropium (Duoneb) 3 ml QIDR INH 10/05/16 08:00 11/04/16 07:59 10/15/16 11:50 3 ML Miscellaneous Information (Check Clonidine Patch Placement) 1 ea QS N/A 10/05/16 08:00 11/04/16 07:59 10/16/16 07:58 1 EA Sucralfate (Carafate Susp) 1 gm ACHS PO 10/05/16 06:30 11/04/16 06:29 10/16/16 07:53 1 GM Megestrol Acetate (Megace Susp) 400 mg QAM PO 10/05/16 08:00 11/04/16 07:59 10/16/16 07:59 400 MG Ondansetron HCl 4 mg 4 mg Q4H PRN IV 10/06/16 11:00 11/05/16 10:59 10/16/16 08:14 4 MG Promethazine HCl/ Sodium Chloride (Phenergan Inj/ Nss 50ml) 50.5 ml @ 204 mls/hr Q6H PRN IV 10/07/16 16:00 11/06/16 15:59 10/09/16 17:16 204 MLS/HR Hydralazine HCl (HydrALAZINE INJ) 10 mg Q4H PRN IV. 10/08/16 01:45 11/07/16 01:44 10/09/16 17:16 10 MG Tiotropium [place] (Spiriva Handihaler Inhaler) 1 puff DAILY INH 10/09/16 08:00 11/08/16 07:59 Future Hold Hydromorphone HCl (Dilaudid Inj) 2 mg Q4H PRN IV 10/10/16 15:15 10/24/16 15:14 10/11/16 21:20 2 MG Heparin Sodium (Porcine) (Heparin 10 Unit/ ml 5 ml Flush) 5 ml PRN PRN FLUSH 10/11/16 02:00 11/10/16 01:59 Pantoprazole Sodium (Protonix Tab) 40 mg BID PO 10/11/16 21:00 11/10/16 20:59 10/16/16 07:57 40 MG Zolpidem Tartrate (Ambien Tab) 5 mg HS PRN PO 10/11/16 23:30 11/10/16 23:29 10/16/16 00:49 5 MG Heparin Sodium (Porcine) (Heparin Sq 5000 Unit/0.5ml) 5,000 unit Q12H SQ 10/12/16 18:00 11/11/16 17:59 10/14/16 18:01 5,000 UNIT Acetaminophen/ Hydrocodone Bitart ([place] 5/325 Tab) 1 tab Q4HWA PRN PO 10/13/16 10:00 10/27/16 09:59 Clonidine HCl (Pjjrcikf-Mkx-9 0.2mg/24hr Patch) 2 patch Fr@0000 TD 10/14/16 00:00 11/13/16 00:00 10/14/16 01:09 2 PATCH Miscellaneous (Remove Clonidine Patch) 1 ea Th@2359 N/A 10/20/16 23:59 11/19/16 23:58 Nystatin (Mycostatin Susp) 5 ml QID PO 10/14/16 17:00 10/20/16 16:59 10/16/16 07:55 5 ML Amoxicillin/ Clavulanate Potassium (Augmentin Tab) 875 mg BIDM PO 10/14/16 16:45 10/17/16 23:59 10/16/16 07:55 875 MG Linezolid (Zyvox Tab) 600 mg BID PO 10/14/16 21:00 10/18/16 20:59 10/16/16 07:57 600 MG Potassium/ Phosphorus/Sodium (Phospha 250 Neutral 155-852-130 Mg) 1 tab QID PO 10/15/16 13:00 11/14/16 12:59 10/16/16 07:58 1 TAB Methadone HCl (Dolophine Tab) 20 mg TID PO 10/15/16 14:00 10/29/16 13:59 10/16/16 08:11 20 MG Prednisone (PredniSONE TAB) 20 mg DAILY PO 10/17/16 09:00 11/16/16 08:59 UNV Objective Vital Signs Date Time Temp Pulse Resp B/P Pulse Ox O2 Delivery O2 Flow Rate FiO2 10/16/16 08:11 36.4 93 19 165/89 94 Nasal Cannula 2.0 10/16/16 08:00 Nasal Cannula 2.0 10/16/16 04:20 36.8 95 22 145/100 93 Nasal Cannula 2.0 10/16/16 04:00 Nasal Cannula 2.0 10/16/16 00:02 Nasal Cannula 2.0 10/15/16 23:00 36.7 97 20 155/85 93 Nasal Cannula 2.0 10/15/16 20:00 Nasal Cannula 2.0 10/15/16 19:08 36.7 92 18 153/96 93 Nasal Cannula 2.0 10/15/16 16:05 94 Nasal Cannula 2.0 10/15/16 15:53 37.1 75 22 146/97 94 Nasal Cannula 2.0 10/15/16 12:00 92 Nasal Cannula 2.0 10/15/16 11:51 84 18 92 Nasal Cannula 2.0 10/15/16 11:41 36.7 88 18 151/97 91 Nasal Cannula 2.0 Physical Exam General Appearance: WD/WN, no apparent distress Eyes: normal inspection, EOMI ENT: normal ENT inspection, hearing grossly normal Neck: supple Respiratory/Chest: chest non-tender, lungs clear, normal breath sounds, no respiratory distress, no accessory muscle use Cardiovascular: regular rate, rhythm, no edema, no gallop, no JVD, no murmur Abdomen: normal bowel sounds, non tender, soft, no organomegaly Extremities: normal range of motion, non-tender, + pedal edema 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, no motor/sensory deficits, alert, normal mood/affect, oriented x 3 Skin: warm/dry, + pertinent finding (multiple bruises) Laboratory Results Last 24 Hours Test 10/16/16 07:00 White Blood Count 14.20 K/uL Red Blood Count 3.17 M/uL Hemoglobin 8.8 g/dL Hematocrit 27.2 % Mean Corpuscular Volume 85.8 fL Mean Corpuscular Hemoglobin 27.8 pg Mean Corpuscular Hemoglobin Concent 32.4 g/dl Platelet Count 197 K/uL Mean Platelet Volume 9.9 fL Neutrophils (%) (Auto) 81.1 % Lymphocytes (%) (Auto) 7.5 % Monocytes (%) (Auto) 10.2 % Eosinophils (%) (Auto) 0.0 % Basophils (%) (Auto) 0.1 % Neutrophils # (Auto) 11.52 K/uL Lymphocytes # (Auto) 1.07 K/uL Monocytes # (Auto) 1.45 K/uL Eosinophils # (Auto) 0.00 K/uL Basophils # (Auto) 0.01 K/uL RDW Standard Deviation 52.5 fL RDW Coefficient of Variation 16.7 % Immature Granulocyte % (Auto) 1.1 % Immature Granulocyte # (Auto) 0.15 K/uL Nucleated RBC Absolute Count (auto) 0.04 K/uL Nucleated Red Blood Cells % 0.3 % Hypersegmented Polys 1+ Sodium Level 143 mmol/L Potassium Level 3.3 mmol/L Chloride Level 108 mmol/L Carbon Dioxide Level 26 mmol/L Anion Gap 9.0 mmol/L Blood Urea Nitrogen 22 mg/dl Creatinine 1.40 mg/dl Est Creatinine Clear Calc Drug Dose 30.8 ml/min Estimated GFR () 44.3 Estimated GFR (Non- 38.2 BUN/Creatinine Ratio 15.4 Random Glucose 89 mg/dl Calcium Level 8.1 mg/dl Phosphorus Level 1.7 mg/dl Magnesium Level 2.2 mg/dl Total Bilirubin 0.5 mg/dl Aspartate Amino Transf (AST/SGOT) 13 U/L Alanine Aminotransferase (ALT/SGPT) 20 U/L Alkaline Phosphatase 79 U/L Total Protein 5.5 gm/dl Albumin 2.6 gm/dl Globulin 2.9 gm/dl Albumin/Globulin Ratio 0.9 Assessment and Plan 71 year old female from [facility] who presents to the ER for lethargy and altered mental state. She is on chronic opiates however did not respond to narcan given in the detention. Change in mental status, likely multi factorial as below, resolved refused psych consult as inpatient, now dose not need it SIRS POA secondary to below VRE UTI with possible bibasilar pneumonia/pneumonitis. She is currently on IV Zyvox and Zosyn. continue Augmentin / zyvox empirically as per Dr. Villarreal add probiotics Diarrhea with negative C diff 10/14 likely secondary to augmentin if continues , can repeat C diff testing gave only one dose of imodium 10/16 (do not recommend more than one dose) possible accidental narcotics over dose / methadone dependant will need bill boxing and observation after discharge decreased methadone to 20mg TID (was on 30 TID as an out patient ) she agrees to initiate dose reduction protocol as an out patient hypoglycemia monitor blood sugar oral thrush continue nystatin oral swish PT/OT discharge based on PT/OT evaluation bleeding laceration on right forearm refused heparin today instructed to at least do SCD Hypokalemia / hypophosphatemia continue oral replacement with potassium/phos tablets CKD stage III continue to monitor renal function DIONI/CKD resolved 9 beats run of V tac last night keep on telemetry today heparin SQ for DVT prophylaxis
[2016-10-16] MEDS: LATANOPROST 0.005% OP SOLN 2.5 ML BTL OPR SCH (22:49)
[2016-10-17] VITALS (11 sets, daily range): BP systolic 120–151; BP diastolic 75–91; PULSE 74–97; TEMP 36.4–37.1; O2SAT 91–96
[2016-10-17] MEDS: ZOLPIDEM TARTRATE 5 MG TAB PO PRN (00:44)
[2016-10-17] MEDS: CHECK CLONIDINE PATCH PLACEMENT SCH ×4 (00:44→23:41)
[2016-10-17] MEDS: HYDROCODONE/ACETAMOPHEN 5/325MG TAB PO PRN ×2 (05:08→10:46)
[2016-10-17] MEDS: HEPARIN SOD 5000 UNIT/0.5 ML CARP SQ SCH ×2 (06:00→16:38)
[2016-10-17 06:25] LABS: BASO % 0.1 %; BASO ABS # 0.01 K/uL (0-0.2); HEMATOCRIT 23.7 % (37-47); IG% 1.2 %; LYMPH % 6.6 %; LYMPH ABS # 1.14 K/uL (1.2-3.4); MEAN CELL VOLUME 86.2 fL (80-100); MEAN CORPUSCULAR HEMOGLOBIN 27.6 pg (25-34); MEAN CORPUSCULAR HGB CONC 32.1 g/dl (32-36); MEAN PLATELET VOLUME 9.5 fL (7.4-10.4); MONO % 7.2 %; NEUT % 84.9 %; PLATELET COUNT 172 K/uL (130-400); RED BLOOD COUNT 2.75 M/uL (4.2-5.4); WHITE BLOOD COUNT 17.27 K/uL (4.8-10.8)
[2016-10-17 07:05] LABS: ALB/GLOB RATIO 0.9 (0.9-2); BUN/CREATININE RATIO 15.6 (10-20); CREATININE 1.4 mg/dl (0.60-1.20); MAGNESIUM 2.1 mg/dl (1.8-2.4); PHOSPHORUS 1.9 mg/dl (2.5-4.9); POTASSIUM 3.9 mmol/L (3.5-5.1)
[2016-10-17 07:35] LABS: COMPLETE YES; POLYCHROMASIA 1+
[2016-10-17] MEDS: ALBUT/IPRATROP 3MG/0.5MG NEB 3 ML VIAL INH SCH ×4 (07:47→19:50)
[2016-10-17] MEDS: DICLOFENAC SOD 1% GEL 100 GM TUBE EXT SCH ×4 (09:00→21:53)
[2016-10-17] MEDS: SENNA 8.6 MG TAB PO SCH (09:00)
[2016-10-17] MEDS: FLUTICASONE/SALMETEROL 250/50 (ADVAIR) 14 PUFF/1 INHALER INH SCH ×2 (09:00→22:15)
[2016-10-17] MEDS: LIDODERM (LIDOCAINE) PATCH 5% TD SCH (09:36)
[2016-10-17] MEDS: CALCITONIN SALMON NA 200 IU/AC 3.7 ML BTL NAE SCH (09:37)
[2016-10-17] MEDS: MEGESTROL ACETATE SUSP 400 MG/10 ML UDC PO SCH (09:37)
[2016-10-17] MEDS: FLUTICASONE PROPIONATE NA SPR 16 GM BTL NAE SCH ×2 (09:37→22:07)
[2016-10-17] MEDS: MULTIVITAMIN TAB PO SCH (09:38)
[2016-10-17] MEDS: CARVEDILOL 25 MG TAB PO SCH ×2 (09:38→22:08)
[2016-10-17] MEDS: NYSTATIN SUSP 500,000 U/5 ML UDC PO SCH ×4 (09:38→22:12)
[2016-10-17] MEDS: ALLOPURINOL 100 MG TAB PO SCH ×2 (09:38→22:11)
[2016-10-17] MEDS: PANTOprazole SOD 40 MG TAB PO SCH ×2 (09:38→22:10)
[2016-10-17] MEDS: BACLOFEN 10 MG TAB PO SCH ×2 (09:39→22:10)
[2016-10-17] MEDS: POT PHOSPHATE MONOBASIC W/ SOD TAB PO SCH ×4 (09:39→22:10)
[2016-10-17] MEDS: AMLODIPINE BESYLATE 5 MG TAB PO SCH (09:39)
[2016-10-17] MEDS: LINEZOLID 600 MG TAB PO SCH ×3 (09:39→22:20)
[2016-10-17] MEDS: SUCRALFATE 1 GM/10 ML UDC PO SCH ×4 (09:40→22:09)
[2016-10-17] MEDS: CHOLECALCIFEROL 1000 INTER.UNIT TAB PO SCH (09:41)
[2016-10-17] MEDS: AMOXICILLIN/CLAVULANATE TAB 875 MG TAB PO SCH ×2 (09:41→16:37)
[2016-10-17] MEDS: METHADONE HCL 10 MG TAB PO SCH ×3 (09:42→22:03)
[2016-10-17] MEDS: ONDANSETRON INJ 2 MG/ML 2 ML VIAL IV PRN ×2 (09:43→17:02)
[2016-10-17] MEDS ORDERED: FUROSEMIDE 20 MG TAB PO ONE (14:55)
[2016-10-17] MEDS: COLESTIPOL HCL 1 GM TAB PO SCH ×2 (16:35→23:39)
[2016-10-17] MEDS: HYDROCODONE/ACETAMI 10/325 TAB PO PRN ×2 (17:02→22:05)
[2016-10-17] MEDS ORDERED: LOPERAMIDE HCL 2 MG CAP PO PRN (21:00)
--- NOTE | 2016-10-17 21:08 | Progress Note ---
Subjective Date of Service: October 17, 2016. Subjective Pt evaluation today including: conversation w/ patient, physical exam, chart review, lab review, review of studies (cxr's, etc), review of inpatient medication list Pain: back - mid thoracic region - "severe" PO Intake: fair Voiding: incontinence tele overnight with run of what appears to be a. fib and a run of atrial tach she was sleeping upon arrival but easily awoke & complained about her back pain does not radiate into her buttocks or legs; stays in the mid thoracic region states the voltaren gel & lidoderm patches don't help denies any pulmonary symptoms continues to have multiple loose stools each day Problem List Medical Problems: (1) Altered mental status Status: Acute (2) Anemia Status: Acute (3) Bilateral pneumonia Status: Acute (4) CHF (congestive heart failure) Status: Acute (5) Chronic Kidney Disease, Stage Iii (Moderate) Status: Chronic (6) COPD exacerbation Status: Acute (7) COPD exacerbation Status: Acute (8) Crystal arthritis Status: Chronic (9) Duodenal bulb ulcer Status: Chronic (10) Failure of outpatient treatment Status: Acute (11) Failure of outpatient treatment Status: Acute (12) Gout Status: Chronic (13) Hyperlipidemia Nec/Nos Status: Chronic (14) Hypertension Status: Chronic (15) Hypoxemia Status: Acute (16) Hypoxia Status: Acute (17) Hypoxia Status: Acute (18) Hypoxia Status: Acute (19) Hypoxia Status: Acute (20) Lumbar compression fracture Status: Chronic (21) Opiate use Status: Chronic (22) Osteoporosis Status: Chronic (23) Peripheral edema Status: Acute (24) Pneumonia Status: Acute (25) Pneumonia Status: Acute (26) Pneumonia involving right lung Status: Acute (27) Respiratory acidosis Status: Acute (28) Respiratory distress Status: Acute (29) Right renal artery stenosis Status: Chronic (30) Secondary hyperparathyroidism Status: Chronic (31) UTI (urinary tract infection) Status: Acute Review of Systems Constitutional: No chills, No fever Respiratory: No cough, No dyspnea at rest Cardiac: + edema, No chest pain Abdomen: No pain Objective Vital Signs Date Time Temp Pulse Resp B/P Pulse Ox O2 Delivery O2 Flow Rate FiO2 10/17/16 20:28 36.4 97 18 150/91 91 Nasal Cannula 2.0 10/17/16 20:00 Nasal Cannula 2.0 10/17/16 19:50 96 18 91 Nasal Cannula 2.0 10/17/16 16:05 36.6 83 22 142/83 91 Nasal Cannula 2.0 10/17/16 16:00 Nasal Cannula 2.0 10/17/16 15:17 74 18 96 Nasal Cannula 2.0 10/17/16 12:22 Nasal Cannula 3.0 10/17/16 11:44 94 92 10/17/16 11:35 94 18 92 Nasal Cannula 2.0 10/17/16 11:33 36.6 77 19 143/83 95 Nasal Cannula 2.0 10/17/16 08:05 36.8 87 19 151/87 92 Nasal Cannula 2.0 10/17/16 07:47 84 18 92 Nasal Cannula 2.0 10/17/16 04:00 Nasal Cannula 2.0 10/17/16 04:00 37.1 94 16 120/75 91 Nasal Cannula 2.0 10/17/16 00:02 Nasal Cannula 2.0 10/16/16 23:54 36.7 75 18 128/80 93 Nasal Cannula 2.0 Physical Exam General Appearance: no apparent distress, + pertinent finding (looks older that stated age) ENT: pharynx normal (no thrush ) Neck: no JVD Respiratory/Chest: lungs clear, no respiratory distress, no accessory muscle use, + decreased breath sounds (mild, both bases) Cardiovascular: regular rate, rhythm, no gallop, no murmur Abdomen: normal bowel sounds, non tender, soft, no organomegaly Extremities: + pedal edema (2-3+ pitting edema b/l ) Neurologic/Psychiatric: alert, oriented x 3 Comments: musculoskeletal - back - tender to palpation over mid thoracic spinous processes Laboratory Results Last 24 Hours Test 10/17/16 05:55 White Blood Count 17.27 K/uL Red Blood Count 2.75 M/uL Hemoglobin 7.6 g/dL Hematocrit 23.7 % Mean Corpuscular Volume 86.2 fL Mean Corpuscular Hemoglobin 27.6 pg Mean Corpuscular Hemoglobin Concent 32.1 g/dl Platelet Count 172 K/uL Mean Platelet Volume 9.5 fL Neutrophils (%) (Auto) 84.9 % Lymphocytes (%) (Auto) 6.6 % Monocytes (%) (Auto) 7.2 % Eosinophils (%) (Auto) 0.0 % Basophils (%) (Auto) 0.1 % Neutrophils # (Auto) 14.68 K/uL Lymphocytes # (Auto) 1.14 K/uL Monocytes # (Auto) 1.24 K/uL Eosinophils # (Auto) 0.00 K/uL Basophils # (Auto) 0.01 K/uL RDW Standard Deviation 53.5 fL RDW Coefficient of Variation 17.0 % Immature Granulocyte % (Auto) 1.2 % Immature Granulocyte # (Auto) 0.20 K/uL Nucleated RBC Absolute Count (auto) 0.03 K/uL Nucleated Red Blood Cells % 0.2 % Polychromasia 1+ Sodium Level 142 mmol/L Potassium Level 3.9 mmol/L Chloride Level 106 mmol/L Carbon Dioxide Level 30 mmol/L Anion Gap 6.0 mmol/L Blood Urea Nitrogen 22 mg/dl Creatinine 1.40 mg/dl Est Creatinine Clear Calc Drug Dose 31.5 ml/min Estimated GFR () 44.3 Estimated GFR (Non- 38.2 BUN/Creatinine Ratio 15.6 Random Glucose 93 mg/dl Calcium Level 8.0 mg/dl Phosphorus Level 1.9 mg/dl Magnesium Level 2.1 mg/dl Total Bilirubin 0.4 mg/dl Aspartate Amino Transf (AST/SGOT) 14 U/L Alanine Aminotransferase (ALT/SGPT) 18 U/L Alkaline Phosphatase 72 U/L Total Protein 5.2 gm/dl Albumin 2.5 gm/dl Globulin 2.7 gm/dl Albumin/Globulin Ratio 0.9 Assessment and Plan 71yo female: 1. acute/chronic hypercarbic resp failure - acute component resolved. 2. b/l pneumonia, gram negative vs aspiration vs other - clinically resolved; has completed 10+ days of zosyn/augmentin; stop all abx. 3. VRE UTI - resolved. Has completed 10 days of zyvox. d/c in AM. 4. chronic thoracic/lumbar pain / chronic pain syndrome - seen by pain management earlier in her stay. Methadone dose decreased. Dilaudid (oral) stopped. [place] prn started. Will increase norco to 10mg tabs to be used prn. No change in methadone. K-pad/heating pad. Encourage the voltaren gel. 5. anemia, normocytic - iron studies in the past were borderline low; recheck ferritin in am. Recent B12 level was low-normal - supplement B12. 6. hypophosphatemia - replace; repeat phos in 2-3 days. 7. acute kidney injury in setting of CKD stage 3 - DIONI resolved, Cr is at baseline. 8. recent acute/chronic diastolic CHF - acute component resolved. 9. LE edema - could be from hypoalbuminemia or DVT or other; doubt CHF. Will check dopplers to r/o DVT given inconsistent use of heparin SC (patient refuses at times). Resume lasix 20mg po daily. 10. a fib vs a tach - continue to observe. 11. chronic steroid dependency for COPD- weaned to 20mg today; wean to 10mg in 48 hours. Cont inhalers & supportive care. 12. DVT proph - SCDs/heparin SC. 13. HTN - controlled. 14. diarrhea - add colestipol 1 gm BID; immodium prn. C. diff negative. slow progress on all fronts dispo - [facility] Continued [facility] stay due to: inadequate oral pain control, voiding difficulties , ambulation difficulties, multiple IV medications needed Discharge planning: [facility] facility
--- NOTE | 2016-10-17 22:04 | DIAGNOSTIC IMAGING REPORT ---
BILATERAL LOWER EXTREMITY VENOUS DOPPLER HISTORY: Pain. Edema. eval for DVT either leg COMPARISON STUDY: None. FINDINGS: There is normal compressibility, flow, and augmentation within the bilateral lower extremity deep venous systems. Mild chronic venous scarring left common femoral vein IMPRESSION: No DVT within the right or left lower extremity. Mild chronic venous scarring left common femoral vein Electronically signed by: Klever June M.D. 10/17/2016 10:03 PM Dictated Date/Time: 10/17/2016 10:02 PM
[2016-10-17] MEDS: NYSTATIN POWDER 15GM BTL EXT SCH (22:06)
[2016-10-17] MEDS: LATANOPROST 0.005% OP SOLN 2.5 ML BTL OPR SCH (22:09)
[2016-10-18] VITALS (9 sets, daily range): BP systolic 123–150; BP diastolic 72–98; PULSE 72–94; TEMP 36.4–37; O2SAT 91–96
[2016-10-18] MEDS: ZOLPIDEM TARTRATE 5 MG TAB PO PRN (00:46)
[2016-10-18] MEDS: HYDROCODONE/ACETAMI 10/325 TAB PO PRN ×4 (02:05→21:12)
[2016-10-18] MEDS: HEPARIN SOD 5000 UNIT/0.5 ML CARP SQ SCH ×2 (06:00→18:00)
[2016-10-18] MEDS: ALBUT/IPRATROP 3MG/0.5MG NEB 3 ML VIAL INH SCH ×4 (07:13→19:04)
[2016-10-18 07:47] LABS: BLOOD UREA NITROGEN 23 mg/dl (7-18); BUN/CREATININE RATIO 17.8 (10-20); CALCIUM 7.6 mg/dl (8.5-10.1); CARBON DIOXIDE 30 mmol/L (21-32); CHLORIDE 107 mmol/L (98-107); FERRITIN 1966.8 ng/ml (8.0-388.0); GLUCOSE 79 mg/dl (70-99); SODIUM 142 mmol/L (136-145)
[2016-10-18] MEDS: CHECK CLONIDINE PATCH PLACEMENT SCH ×2 (08:00→15:49)
[2016-10-18] MEDS: SUCRALFATE 1 GM/10 ML UDC PO SCH ×4 (09:01→21:19)
[2016-10-18] MEDS: BACLOFEN 10 MG TAB PO SCH ×2 (09:01→21:15)
[2016-10-18] MEDS: PANTOprazole SOD 40 MG TAB PO SCH ×2 (09:01→21:18)
[2016-10-18] MEDS: CHOLECALCIFEROL 1000 INTER.UNIT TAB PO SCH (09:01)
[2016-10-18] MEDS: MULTIVITAMIN TAB PO SCH (09:01)
[2016-10-18] MEDS: CARVEDILOL 25 MG TAB PO SCH ×2 (09:02→21:17)
[2016-10-18] MEDS: POT PHOSPHATE MONOBASIC W/ SOD TAB PO SCH ×4 (09:02→21:14)
[2016-10-18] MEDS: FUROSEMIDE 20 MG TAB PO SCH (09:02)
[2016-10-18] MEDS: AMLODIPINE BESYLATE 5 MG TAB PO SCH (09:03)
[2016-10-18] MEDS: ALLOPURINOL 100 MG TAB PO SCH ×2 (09:03→21:15)
[2016-10-18] MEDS: LIDODERM (LIDOCAINE) PATCH 5% TD SCH (09:03)
[2016-10-18] MEDS: FLUTICASONE PROPIONATE NA SPR 16 GM BTL NAE SCH ×2 (09:03→21:19)
[2016-10-18] MEDS: NYSTATIN POWDER 15GM BTL EXT SCH ×3 (09:04→21:00)
[2016-10-18] MEDS: MEGESTROL ACETATE SUSP 400 MG/10 ML UDC PO SCH (09:04)
[2016-10-18] MEDS: CALCITONIN SALMON NA 200 IU/AC 3.7 ML BTL NAE SCH (09:05)
[2016-10-18] MEDS: DICLOFENAC SOD 1% GEL 100 GM TUBE EXT SCH ×4 (09:05→21:00)
[2016-10-18] MEDS: NYSTATIN SUSP 500,000 U/5 ML UDC PO SCH ×4 (09:05→21:14)
[2016-10-18] MEDS: COLESTIPOL HCL 1 GM TAB PO SCH ×2 (09:06→22:36)
[2016-10-18] MEDS: SENNA 8.6 MG TAB PO SCH (09:06)
[2016-10-18] MEDS: CYANOCOBALAMIN 500 MCG TAB (VIT B-12) PO SCH (09:06)
--- NOTE | 2016-10-18 09:09 | Pain Management Progress Note ---
Pain Management Progress Note Date of Service October 18, 2016. Subjective Ms. Sommers is a 71-year-old white female who was admitted from [facility] secondary to cognitive impairment with altered mental status which was not responsive to Narcan administered in the senior care. The patient is on chronic opiates with Methadone for multiple regions of pain including prior surgical interventions including lumbar spine, hip replacement surgeries as well as prior history of a vertebral compression deformity. The patient was found to have UTI, respiratory distress requiring intubation during which time her methadone was held. It was resumed at a lower dose of 20mg TID later this admission. She reported diarrhea for 2 days after it was held. Currently, she reports pain over T4-7 in the midline, stabbing, aching w/o radicular pattern rated at 6-8/10. She denies recent falls or injuries. She reports limited exacerbation of pain with movement, eating, coughing. She states pain is simply there all the time. She reports that this is not her typical region of pain, it is more cephalad than normal. She denies bowel/bladder incontinence, motor weakness, or foot drop at this time. Objective Vital Signs: Last Vital Signs Documentation Date Time Temp Pulse Resp B/P Pulse Ox O2 Delivery O2 Flow Rate FiO2 10/18/16 07:12 37.0 84 19 140/77 96 Nasal Cannula 3.0 10/14/16 16:00 40 Physical Exam: AAOx3 in NAD lying in bed able to log roll w/o much discomfort poor participation in exam BL UE multiple regions of skin tear and bruising after blood draws. 5/5 strength BL UE with intact sensation BL LE 2+ edema to knee, pt did not participate in exam to assess motor strength She is tender over T4-7 midline, minimal spasm, not worsened with percussion ROM Thoracic spine WNL, kyphosis noted. gait not observed CN grossly intact Laboratory Laboratory Findings 10/17/16 05:55 Red Blood Count 2.75 L, Mean Corpuscular Volume 86.2, Mean Corpuscular Hemoglobin 27.6, Mean Corpuscular Hemoglobin Concent 32.1, Mean Platelet Volume 9.5, Neutrophils (%) (Auto) 84.9, Lymphocytes (%) (Auto) 6.6, Monocytes (%) ( Auto) 7.2, Eosinophils (%) (Auto) 0.0, Basophils (%) (Auto) 0.1, Neutrophils # ( Auto) 14.68 H, Lymphocytes # (Auto) 1.14 L, Monocytes # (Auto) 1.24 H, Eosinophils # (Auto) 0.00, Basophils # (Auto) 0.01 10/18/16 08:10 Assessment 1. Chronic opiate dependency. 2. Altered mental status upon admission 3. Acute hypoxic respiratory failure, resolved. 4. Urinary tract infection - improving - vancomycin -resistant enterococci. 5. Physical deconditioning. 6. Thoracic spine pain Recommendations 1. The patient reports acceptable efficacy from methadone 20mg po tid and norco 10/325mg. 2. Ordered Tspine and BL rib films to r/o new comp fx vs rib fx given that pain is new. 3. Encouraged participation in PT/OT with norco usage prior to PT/OT. Pt agrees to participate. 4. Would not escalate narcotics if new fx is not present. [place] Voice Recognition This chart was completed in part utilizing [employer] Voice Recognition Software. Random word insertions, pronoun errors, and incomplete sentences are an occasional consequence of this system due to software limitations and ambient noise. Any questions or concerns about the content, text or information contained within the body of this dictation should be directly addressed to the provider for clarification.
[2016-10-18] MEDS: ONDANSETRON INJ 2 MG/ML 2 ML VIAL IV PRN ×2 (09:26→15:47)
[2016-10-18] MEDS: METHADONE HCL 10 MG TAB PO SCH ×3 (09:27→21:12)
--- NOTE | 2016-10-18 10:11 | Infectious Disease Progress Nt ---
Progress Note Date of Service October 18, 2016. Subjective Pt evaluation today including: conversation w/ patient, physical exam, chart review, lab review, review of studies, conversation w/ apartment leasing consultant, review of inpatient medication list Events reviewed.Complaining of severe mid-thoracic back pain. Remains afebrile and hemodynamically stable. Pain management notes reviewed. All Other Systems: Reviewed and Negative Medications Current Inpatient Medications Medications (Trade) Dose Ordered Sig/Estephania Route Start Time Stop Time Status Last Admin Dose Admin Allopurinol (Zyloprim Tab) 100 mg BID PO 10/05/16 08:00 11/04/16 07:59 10/18/16 09:03 100 MG Amlodipine Besylate (Norvasc Tab) 10 mg DAILY PO 10/05/16 08:00 11/04/16 07:59 10/18/16 09:03 10 MG Baclofen (Lioresal Tab) 10 mg BID PO 10/05/16 08:00 11/04/16 07:59 10/18/16 09:01 10 MG Calcitonin [place] (Fortical Nasal [place]) 1 spray DAILY ERIC 10/05/16 08:00 11/04/16 07:59 10/18/16 09:05 1 SPRAY Carvedilol (Coreg Tab) 25 mg BID PO 10/05/16 08:00 11/04/16 07:59 10/18/16 09:02 25 MG Cholecalciferol (Vitamin D Tab) 2,000 inter.unit DAILY PO 10/05/16 08:00 11/04/16 07:59 10/18/16 09:01 2,000 INTER.UNIT Diclofenac Sodium (Voltaren 1% Top Gel) 1 appln QID EXT 10/05/16 08:00 11/04/16 07:59 10/18/16 09:05 1 APPLN Duloxetine HCl (Cymbalta Cap) 20 mg DAILY PO 10/05/16 08:00 11/04/16 07:59 Future Hold Salmeterol Xinafoate/ Fluticasone (Advair Diskus 250/50 Inh) 1 puff BID INH 10/05/16 08:00 11/04/16 07:59 10/17/16 22:15 1 PUFF Fluticasone Propionate (Flonase Nasal [place]) 1 sprays BID ERIC 10/05/16 08:00 11/04/16 07:59 10/18/16 09:03 1 SPRAYS Hydralazine HCl (Apresoline Tab) 75 mg TID PO 10/05/16 08:00 11/04/16 07:59 10/18/16 09:01 75 MG Latanoprost (Xalatan Oph Soln) 1 drops HS OPR 10/05/16 22:00 11/04/16 21:59 10/17/16 22:09 1 DROPS Lidocaine (Lidoderm Patch 5%) 1 patch DAILY TD 10/05/16 08:00 11/04/16 07:59 10/18/16 09:03 1 PATCH Magnesium Hydroxide (Milk Of Magnesia Susp) 30 ml DAILY PRN PO 10/05/16 05:15 11/04/16 05:14 Multivitamins (Multivitamin Tab) 1 tab DAILY PO 10/05/16 08:00 11/04/16 07:59 10/18/16 09:01 1 TAB Senna (Senokot Tab) 8.6 mg QAM PO 10/05/16 08:00 11/04/16 07:59 10/18/16 09:06 8.6 MG Miscellaneous (Remove Lidoderm Patch) 1 ea DAILY@21 N/A 10/05/16 21:00 11/04/16 20:59 10/16/16 21:26 1 EA Albuterol/ Ipratropium (Duoneb) 3 ml QIDR INH 10/05/16 08:00 11/04/16 07:59 10/17/16 19:50 3 ML Miscellaneous Information (Check Clonidine Patch Placement) 1 ea QS N/A 10/05/16 08:00 11/04/16 07:59 10/18/16 08:00 1 EA Sucralfate (Carafate Susp) 1 gm ACHS PO 10/05/16 06:30 11/04/16 06:29 10/18/16 09:01 1 GM Megestrol Acetate (Megace Susp) 400 mg QAM PO 10/05/16 08:00 11/04/16 07:59 10/18/16 09:04 400 MG Ondansetron HCl 4 mg 4 mg Q4H PRN IV 10/06/16 11:00 11/05/16 10:59 10/18/16 09:26 4 MG Promethazine HCl/ Sodium Chloride (Phenergan Inj/ Nss 50ml) 50.5 ml @ 204 mls/hr Q6H PRN IV 10/07/16 16:00 11/06/16 15:59 10/09/16 17:16 204 MLS/HR Hydralazine HCl (HydrALAZINE INJ) 10 mg Q4H PRN IV. 10/08/16 01:45 11/07/16 01:44 10/09/16 17:16 10 MG Tiotropium [place] (Spiriva Handihaler Inhaler) 1 puff DAILY INH 10/09/16 08:00 11/08/16 07:59 Future Hold Hydromorphone HCl (Dilaudid Inj) 2 mg Q4H PRN IV 10/10/16 15:15 10/24/16 15:14 10/11/16 21:20 2 MG Heparin Sodium (Porcine) (Heparin 10 Unit/ ml 5 ml Flush) 5 ml PRN PRN FLUSH 10/11/16 02:00 11/10/16 01:59 Pantoprazole Sodium (Protonix Tab) 40 mg BID PO 10/11/16 21:00 11/10/16 20:59 10/18/16 09:01 40 MG Zolpidem Tartrate (Ambien Tab) 5 mg HS PRN PO 10/11/16 23:30 11/10/16 23:29 10/18/16 00:46 5 MG Heparin Sodium (Porcine) (Heparin Sq 5000 Unit/0.5ml) 5,000 unit Q12H SQ 10/12/16 18:00 11/11/16 17:59 10/14/16 18:01 5,000 UNIT Clonidine HCl (Fjmvozfu-Skq-2 0.2mg/24hr Patch) 2 patch Fr@0000 TD 10/14/16 00:00 11/13/16 00:00 10/14/16 01:09 2 PATCH Miscellaneous (Remove Clonidine Patch) 1 ea Th@1649 N/A 10/20/16 23:59 11/19/16 23:58 Nystatin (Mycostatin Susp) 5 ml QID PO 10/14/16 17:00 10/20/16 16:59 10/18/16 09:05 5 ML Potassium/ Phosphorus/Sodium (Phospha 250 Neutral 155-852-130 Mg) 1 tab QID PO 10/15/16 13:00 11/14/16 12:59 10/18/16 09:02 1 TAB Methadone HCl (Dolophine Tab) 20 mg TID PO 10/15/16 14:00 10/29/16 13:59 10/18/16 09:27 20 MG Prednisone (PredniSONE TAB) 20 mg DAILY PO 10/17/16 09:00 11/16/16 08:59 10/18/16 09:01 20 MG Furosemide (Lasix Tab) 20 mg QAM PO 10/18/16 09:00 11/17/16 08:59 10/18/16 09:02 20 MG Acetaminophen/ Hydrocodone Bitart ([place] 10/325 Tab) 1 tab Q4H PRN PO 10/17/16 15:00 10/31/16 14:59 10/18/16 09:00 1 TAB Colestipol HCl (Colestid Tab) 1 gm BID@1000,2200 PO 10/17/16 15:30 11/16/16 15:29 10/18/16 09:06 1 GM Nystatin (Mycostatin Powder) 1 appln TID EXT 10/17/16 16:30 11/16/16 16:29 10/18/16 09:04 1 APPLN Loperamide HCl (Imodium Cap) 2 mg Q3H PRN PO 10/17/16 21:00 11/16/16 20:59 Cyanocobalamin (Vitamin B-12 Tab) 1,000 mcg QAM PO 10/18/16 09:00 11/17/16 08:59 10/18/16 09:06 1,000 MCG Objective Vital Signs Date Time Temp Pulse Resp B/P Pulse Ox O2 Delivery O2 Flow Rate FiO2 10/18/16 07:12 37.0 84 19 140/77 96 Nasal Cannula 3.0 10/18/16 04:00 Nasal Cannula 2.0 10/18/16 04:00 36.9 82 16 124/72 93 Nasal Cannula 2.0 10/18/16 00:00 37.0 93 16 150/89 93 Nasal Cannula 2.0 10/17/16 23:59 91 Nasal Cannula 2.0 10/17/16 20:28 36.4 97 18 150/91 91 Nasal Cannula 2.0 10/17/16 20:00 Nasal Cannula 2.0 10/17/16 19:50 96 18 91 Nasal Cannula 2.0 10/17/16 16:05 36.6 83 22 142/83 91 Nasal Cannula 2.0 10/17/16 16:00 Nasal Cannula 2.0 10/17/16 15:17 74 18 96 Nasal Cannula 2.0 10/17/16 12:22 Nasal Cannula 3.0 10/17/16 11:44 94 92 10/17/16 11:35 94 18 92 Nasal Cannula 2.0 10/17/16 11:33 36.6 77 19 143/83 95 Nasal Cannula 2.0 Physical Exam General Appearance: WD/WN, no apparent distress Eyes: normal inspection, sclerae normal ENT: normal ENT inspection, pharynx normal Neck: supple, no adenopathy, trachea midline Respiratory/Chest: chest non-tender, lungs clear, no respiratory distress, + decreased breath sounds Cardiovascular: regular rate, rhythm, no gallop, no murmur Abdomen: normal bowel sounds, non tender, soft, no organomegaly Extremities: normal range of motion, no calf tenderness Neurologic/Psychiatric: alert, oriented x 3 Skin: normal color, no rash Notes: tenderness over mid thoracic spine Laboratory Results Last 24 Hours Test 10/18/16 06:48 10/18/16 08:10 Sodium Level 142 mmol/L Potassium Level mmol/L 4.5 mmol/L Chloride Level 107 mmol/L Carbon Dioxide Level 30 mmol/L Anion Gap 5.0 mmol/L Blood Urea Nitrogen 23 mg/dl Creatinine 1.30 mg/dl Est Creatinine Clear Calc Drug Dose 34.2 ml/min Estimated GFR () 48.5 Estimated GFR (Non- 41.8 BUN/Creatinine Ratio 17.8 Random Glucose 79 mg/dl Calcium Level 7.6 mg/dl Ferritin 1966.8 ng/ml Hemoglobin 7.5 g/dL Folate 23.50 ng/mL Assessment and Plan (1) Acute respiratory failure with hypoxia (2) Altered mental status Status: Acute (3) UTI (urinary tract infection) Patient with acute confusion, respiratory failure, and VRE UTI with possible bibasilar pneumonia/pneumonitis. Remains afebrile on Zyvox and Augmentin. Given new back pain, would investigate further. X-rays ordered, may need to consider MRI to insure no infectious process.Will discuss. ID will continue to follow.
[2016-10-18] MEDS: FLUTICASONE/SALMETEROL 250/50 (ADVAIR) 14 PUFF/1 INHALER INH SCH ×2 (10:59→21:19)
--- NOTE | 2016-10-18 11:04 | DIAGNOSTIC IMAGING REPORT ---
THORACIC SPINE 3 VIEWS ROUTINE CLINICAL HISTORY: T4-7 thoracic spine pain. History of compression fractures. COMPARISON STUDY: Thoracic spine radiographs September 08, 2016. FINDINGS: Multilevel vertebral augmentations are noted within the thoracic and lumbar spine. These compression fractures are unchanged exam of September 08, 2016. A moderate compression fracture of T9 is new since prior exam.. Otherwise, the additional thoracic spine compression fractures appear similar to prior exam. Multiple old left-sided rib fractures are identified. Ribs are better depicted on the rib series. Bibasilar opacities are noted. IMPRESSION: 1. Interval development of a moderate T9 compression fracture since exam of September 08, 2016. 2. Otherwise, unchanged appearance of the thoracic and lumbar spine with numerous compression fracture status post multilevel vertebral augmentation. Electronically signed by: Lewis Guzmán M.D. 10/18/2016 11:03 AM Dictated Date/Time: 10/18/2016 10:58 AM
--- NOTE | 2016-10-18 11:06 | DIAGNOSTIC IMAGING REPORT ---
BILATERAL RIB SERIES CLINICAL HISTORY: Bilateral chest wall pain. Findings: 11 radiographs from a bilateral rib series are obtained. Correlation is made with chest x-ray dated 10/13/[address] dated 07/22/2016. The skeletal structures are osteopenic. There are numerous chronic/healed bilateral rib fractures. There is no radiographic evidence of acute/distracted rib fracture seen on the bilateral rib series. There are numerous thoracic compression deformities with evidence of multilevel thoracolumbar vertebral plasties. Chronic posterior matter deformity and postoperative change is seen in the left proximal humerus. The heart is enlarged and there is atherosclerotic calcification of the thoracic aorta. Emphysema is observed. Left basilar consolidation is observed. There are small pleural effusions. There is no evidence of pneumothorax. There is a nonobstructed abdominal bowel gas pattern noting moderate colonic fecal retention. IMPRESSION: 1. There is no clear radiographic evidence of acute/distracted rib fracture on the bilateral rib series. 2. There are numerous chronic/healed bilateral rib fractures. 3. There are numerous thoracolumbar compression deformities with evidence of previous multilevel vertebroplasty. 4. Cardiomegaly and emphysema. 5. Consolidative change is seen in the left lung base and there are small pleural effusions. This could represent atelectasis and/or developing pneumonia. Clinical correlation will be required. Electronically signed by: Tej Bernard M.D. 10/18/2016 11:05 AM Dictated Date/Time: 10/18/2016 11:00 AM
[2016-10-18] MEDS: LATANOPROST 0.005% OP SOLN 2.5 ML BTL OPR SCH (21:20)
--- NOTE | 2016-10-18 22:06 | Progress Note ---
Subjective Date of Service: October 18, 2016. Subjective Pt evaluation today including: conversation w/ patient, physical exam, chart review, lab review, review of studies (x-rays of t=spine, ribs), conversation w / senior consumer insights consultant (pain management ), review of inpatient medication list Pain: "horrible" - thoracic region PO Intake: fair Voiding: walker catheter in place tele stable overnight still with occasional runs of PAT her main complaint continues to be that of her back pain she asks multiple times "what's the plan for this? I can't go on like this." denies any respiratory issues asks for a sleep aid tonight - "the ambien 5 doesn't work" Problem List Medical Problems: (1) Altered mental status Status: Acute (2) Anemia Status: Acute (3) Bilateral pneumonia Status: Acute (4) CHF (congestive heart failure) Status: Acute (5) Chronic Kidney Disease, Stage Iii (Moderate) Status: Chronic (6) COPD exacerbation Status: Acute (7) COPD exacerbation Status: Acute (8) Crystal arthritis Status: Chronic (9) Duodenal bulb ulcer Status: Chronic (10) Failure of outpatient treatment Status: Acute (11) Failure of outpatient treatment Status: Acute (12) Gout Status: Chronic (13) Hyperlipidemia Nec/Nos Status: Chronic (14) Hypertension Status: Chronic (15) Hypoxemia Status: Acute (16) Hypoxia Status: Acute (17) Hypoxia Status: Acute (18) Hypoxia Status: Acute (19) Hypoxia Status: Acute (20) Lumbar compression fracture Status: Chronic (21) Opiate use Status: Chronic (22) Osteoporosis Status: Chronic (23) Peripheral edema Status: Acute (24) Pneumonia Status: Acute (25) Pneumonia Status: Acute (26) Pneumonia involving right lung Status: Acute (27) Respiratory acidosis Status: Acute (28) Respiratory distress Status: Acute (29) Right renal artery stenosis Status: Chronic (30) Secondary hyperparathyroidism Status: Chronic (31) UTI (urinary tract infection) Status: Acute Review of Systems Constitutional: No fever Respiratory: No cough, No shortness of breath Cardiac: + edema, No chest pain, No orthopnea Abdomen: + diarrhea (but improved), No pain Objective Vital Signs Date Time Temp Pulse Resp B/P Pulse Ox O2 Delivery O2 Flow Rate FiO2 10/18/16 20:00 Nasal Cannula 2.0 10/18/16 19:58 36.8 94 22 138/90 92 Nasal Cannula 2.0 10/18/16 19:04 72 14 94 Nasal Cannula 2.0 10/18/16 16:56 36.8 82 22 138/98 92 Nasal Cannula 2.0 10/18/16 16:00 Nasal Cannula 3.0 10/18/16 15:32 84 18 91 Nasal Cannula 2.0 10/18/16 12:00 Nasal Cannula 3.0 10/18/16 11:30 36.4 77 20 123/88 92 2.0 10/18/16 11:27 86 18 92 Nasal Cannula 2.0 10/18/16 08:00 Nasal Cannula 3.0 10/18/16 07:12 37.0 84 19 140/77 96 Nasal Cannula 3.0 10/18/16 04:00 Nasal Cannula 2.0 10/18/16 04:00 36.9 82 16 124/72 93 Nasal Cannula 2.0 10/18/16 00:00 37.0 93 16 150/89 93 Nasal Cannula 2.0 10/17/16 23:59 91 Nasal Cannula 2.0 Physical Exam General Appearance: no apparent distress, + pertinent finding (sleeping upon arrival but awakens easily) ENT: pharynx normal (no thrush, MMM) Neck: no JVD Respiratory/Chest: lungs clear, no respiratory distress, no accessory muscle use Cardiovascular: regular rate, rhythm, no gallop, no murmur Abdomen: normal bowel sounds, non tender, soft, no organomegaly Extremities: + pedal edema (2-3+ b/l -- no significant improvement overnight) Neurologic/Psychiatric: alert, oriented x 3 Skin: + pertinent finding (resolving ecchymoses over right neck/right upper chest ) Laboratory Results Last 24 Hours Test 10/18/16 06:48 10/18/16 08:10 Sodium Level 142 mmol/L Potassium Level mmol/L 4.5 mmol/L Chloride Level 107 mmol/L Carbon Dioxide Level 30 mmol/L Anion Gap 5.0 mmol/L Blood Urea Nitrogen 23 mg/dl Creatinine 1.30 mg/dl Est Creatinine Clear Calc Drug Dose 34.2 ml/min Estimated GFR () 48.5 Estimated GFR (Non- 41.8 BUN/Creatinine Ratio 17.8 Random Glucose 79 mg/dl Calcium Level 7.6 mg/dl Ferritin 1966.8 ng/ml Hemoglobin 7.5 g/dL Folate 23.50 ng/mL Assessment and Plan 71yo female: 1. acute/chronic hypercarbic resp failure - acute component resolved. Wean prednisone to 10mg in am. 2. b/l pneumonia, gram negative vs aspiration vs other - clinically resolved; has completed 10+ days of zosyn/augmentin; stop all abx. 3. VRE UTI - resolved. Has completed 10 days of zyvox. d/c today. 4. chronic thoracic/lumbar pain / chronic pain syndrome with acute worsening - seen by pain management today. x-rays of back/ribs ordered - has new T-spine compression Fx. Spoke with pain management - methadone to be increased. Cont [place] prn. K-pad/heating pad. Encourage the voltaren gel. TLSO brace ordered. Appreciate pain management assistance. 5. anemia, normocytic - iron studies c/w ACD. B12 low-normal - supplement. Hb 7.5 today - if any lower tomorrow would transfuse 2 units PRBCs. 6. hypophosphatemia - replace; repeat phos in 48 hours. 7. acute kidney injury in setting of CKD stage 3 - DIONI resolved, Cr is at baseline. 8. recent acute/chronic diastolic CHF - acute component resolved but getting PO lasix for LE edema. 9. LE edema - could be from hypoalbuminemia / dependency or acute/chronic diastolic CHF. Dopplers neg for DVT. Resumed lasix. 10. a fib vs a tach - likely atrial tach; no anticoagulation at this time. 11. chronic steroid dependency for COPD- wean to 10mg in AM. Cont inhalers & supportive care. 12. DVT proph - SCDs/heparin SC. 13. HTN - controlled. 14. diarrhea - improved with colestipol 1 gm BID; immodium prn. C. diff negative. 15. insomnia - has tolerated low-dose restoril in the past. Cautiously try 7.5mg at HS tonight in carol of zee. slow progress on all fronts dispo - [facility] d/c tele in am Continued [facility] stay due to: inadequate oral pain control, voiding difficulties , ambulation difficulties, multiple IV medications needed Discharge planning: [facility] facility
[2016-10-18] MEDS: TEMAZEPAM 7.5 MG CAP PO PRN (23:59)
[2016-10-19] VITALS (9 sets, daily range): BP systolic 118–146; BP diastolic 75–86; PULSE 69–84; TEMP 36.7–36.9; O2SAT 88–97
[2016-10-19] MEDS: HYDROCODONE/ACETAMI 10/325 TAB PO PRN ×3 (05:10→21:16)
[2016-10-19] MEDS: ONDANSETRON INJ 2 MG/ML 2 ML VIAL IV PRN ×3 (05:13→17:56)
[2016-10-19] MEDS: HEPARIN SOD 5000 UNIT/0.5 ML CARP SQ SCH ×2 (05:51→17:41)
[2016-10-19] MEDS: ALBUT/IPRATROP 3MG/0.5MG NEB 3 ML VIAL INH SCH ×3 (06:56→16:00)
[2016-10-19 07:12] LABS: BUN/CREATININE RATIO 16.7 (10-20); CALCIUM 8.3 mg/dl (8.5-10.1); CREATININE 1.4 mg/dl (0.60-1.20); MAGNESIUM 2.2 mg/dl (1.8-2.4); POTASSIUM 4.2 mmol/L (3.5-5.1)
[2016-10-19] MEDS: CHECK CLONIDINE PATCH PLACEMENT SCH ×4 (08:00→23:27)
[2016-10-19] MEDS: FLUTICASONE/SALMETEROL 250/50 (ADVAIR) 14 PUFF/1 INHALER INH SCH ×2 (09:00→21:05)
[2016-10-19] MEDS: SENNA 8.6 MG TAB PO SCH (10:28)
[2016-10-19] MEDS: COLESTIPOL HCL 1 GM TAB PO SCH (10:29)
[2016-10-19] MEDS: PANTOprazole SOD 40 MG TAB PO SCH ×2 (10:29→21:19)
[2016-10-19] MEDS: ALLOPURINOL 100 MG TAB PO SCH ×2 (10:30→21:19)
[2016-10-19] MEDS: NYSTATIN SUSP 500,000 U/5 ML UDC PO SCH ×4 (10:30→21:20)
[2016-10-19] MEDS: POT PHOSPHATE MONOBASIC W/ SOD TAB PO SCH ×4 (10:30→21:18)
[2016-10-19] MEDS: MEGESTROL ACETATE SUSP 400 MG/10 ML UDC PO SCH (10:30)
[2016-10-19] MEDS: BACLOFEN 10 MG TAB PO SCH ×2 (10:30→21:17)
[2016-10-19] MEDS: MULTIVITAMIN TAB PO SCH (10:31)
[2016-10-19] MEDS: CYANOCOBALAMIN 500 MCG TAB (VIT B-12) PO SCH (10:31)
[2016-10-19] MEDS: DICLOFENAC SOD 1% GEL 100 GM TUBE EXT SCH ×4 (10:31→21:08)
[2016-10-19] MEDS: AMLODIPINE BESYLATE 5 MG TAB PO SCH (10:32)
[2016-10-19] MEDS: FUROSEMIDE 20 MG TAB PO SCH (10:32)
[2016-10-19] MEDS: CHOLECALCIFEROL 1000 INTER.UNIT TAB PO SCH (10:33)
[2016-10-19] MEDS: LIDODERM (LIDOCAINE) PATCH 5% TD SCH (10:33)
[2016-10-19] MEDS: CALCITONIN SALMON NA 200 IU/AC 3.7 ML BTL NAE SCH (10:34)
[2016-10-19] MEDS: CARVEDILOL 25 MG TAB PO SCH ×2 (10:34→21:14)
[2016-10-19] MEDS: FLUTICASONE PROPIONATE NA SPR 16 GM BTL NAE SCH ×2 (10:34→21:06)
[2016-10-19] MEDS: NYSTATIN POWDER 15GM BTL EXT SCH ×3 (10:35→21:09)
[2016-10-19] MEDS: SUCRALFATE 1 GM/10 ML UDC PO SCH ×4 (10:36→21:20)
[2016-10-19] MEDS: METHADONE HCL 10 MG TAB PO SCH ×3 (10:38→21:15)
[2016-10-19] MEDS ORDERED: FUROSEMIDE INJ 20 MG in SYRINGE 0 ML IV SCH (16:00)
[2016-10-19] MEDS ORDERED: POTASSIUM CHLORIDE 20 MEQ TABCR PO SCH (16:00)
[2016-10-19] MEDS: IPRATROPIUM BROMIDE/ALBUTEROL respimat INH INH SCH ×2 (18:43→21:05)
[2016-10-19] MEDS: LATANOPROST 0.005% OP SOLN 2.5 ML BTL OPR SCH (21:07)
[2016-10-19] MEDS: TEMAZEPAM 7.5 MG CAP PO PRN (23:27)
[2016-10-20] MEDS: HYDROCODONE/ACETAMI 10/325 TAB PO PRN ×5 (03:20→22:21)
[2016-10-20] MEDS: HEPARIN SOD 5000 UNIT/0.5 ML CARP SQ SCH ×2 (04:54→16:30)
[2016-10-20 05:57] LABS: BUN/CREATININE RATIO 14.6 (10-20); CALCIUM 8.7 mg/dl (8.5-10.1); CREATININE 1.6 mg/dl (0.60-1.20)
[2016-10-20 07:40] VITALS: BP 124/86; PULSE 84; TEMP 36.6; O2SAT 95
--- NOTE | 2016-10-20 07:57 | Progress Note ---
Subjective Date of Service: October 19, 2016. Subjective Pt evaluation today including: conversation w/ patient, conversation w/ family (son, by phone), physical exam, chart review, lab review, review of inpatient medication list Pain: improved today/more comfortable PO Intake: fair/poor Voiding: walker catheter in place tele stable overnight she slept better w/ the restoril her spirits are brighter today denies any cough or sob edema in legs continues respiratory team states she is refusing her duonebs (?) Problem List Medical Problems: (1) Altered mental status Status: Acute (2) Anemia Status: Acute (3) Bilateral pneumonia Status: Acute (4) CHF (congestive heart failure) Status: Acute (5) Chronic Kidney Disease, Stage Iii (Moderate) Status: Chronic (6) COPD exacerbation Status: Acute (7) COPD exacerbation Status: Acute (8) Crystal arthritis Status: Chronic (9) Duodenal bulb ulcer Status: Chronic (10) Failure of outpatient treatment Status: Acute (11) Failure of outpatient treatment Status: Acute (12) Gout Status: Chronic (13) Hyperlipidemia Nec/Nos Status: Chronic (14) Hypertension Status: Chronic (15) Hypoxemia Status: Acute (16) Hypoxia Status: Acute (17) Hypoxia Status: Acute (18) Hypoxia Status: Acute (19) Hypoxia Status: Acute (20) Lumbar compression fracture Status: Chronic (21) Opiate use Status: Chronic (22) Osteoporosis Status: Chronic (23) Peripheral edema Status: Acute (24) Pneumonia Status: Acute (25) Pneumonia Status: Acute (26) Pneumonia involving right lung Status: Acute (27) Respiratory acidosis Status: Acute (28) Respiratory distress Status: Acute (29) Right renal artery stenosis Status: Chronic (30) Secondary hyperparathyroidism Status: Chronic (31) UTI (urinary tract infection) Status: Acute Review of Systems Constitutional: No fever Respiratory: No cough, No dyspnea at rest, No sputum, No wheezing Cardiac: No chest pain Abdomen: No diarrhea, No pain Objective Vital Signs Date Time Temp Pulse Resp B/P Pulse Ox O2 Delivery O2 Flow Rate FiO2 10/19/16 23:28 36.9 75 18 118/75 94 3.0 10/19/16 21:00 82 16 146/84 10/19/16 14:55 Nasal Cannula 2.0 10/19/16 14:33 36.7 83 16 134/77 90 Nasal Cannula 3.0 10/19/16 12:52 36.7 72 20 93 2.0 10/19/16 12:00 Nasal Cannula 2.0 10/19/16 11:33 36.7 72 20 143/86 93 2.0 10/19/16 08:00 Nasal Cannula 2.0 10/19/16 07:44 36.8 84 20 135/78 88 2.0 10/19/16 04:00 36.9 69 20 129/83 97 Nasal Cannula 2.0 10/19/16 04:00 Nasal Cannula 2.0 10/19/16 00:09 36.8 75 20 135/80 92 Nasal Cannula 2.0 Physical Exam General Appearance: no apparent distress, + pertinent finding (sickly appearing but in comparison to prior exams she actually looks much improved and in better spirits) ENT: pharynx normal Neck: + JVD Respiratory/Chest: no respiratory distress, no accessory muscle use, + rales ( bases) Cardiovascular: regular rate, rhythm, no gallop, no murmur Abdomen: normal bowel sounds, non tender, soft, no organomegaly Extremities: + pedal edema (2+ b/l to the knees) Neurologic/Psychiatric: alert, oriented x 3 Laboratory Results Last 24 Hours Test 10/19/16 06:10 Hemoglobin 7.8 g/dL Sodium Level 142 mmol/L Potassium Level 4.2 mmol/L Chloride Level 105 mmol/L Carbon Dioxide Level 30 mmol/L Anion Gap 7.0 mmol/L Blood Urea Nitrogen 23 mg/dl Creatinine 1.40 mg/dl Est Creatinine Clear Calc Drug Dose 31.2 ml/min Estimated GFR () 44.3 Estimated GFR (Non- 38.2 BUN/Creatinine Ratio 16.7 Random Glucose 83 mg/dl Calcium Level 8.3 mg/dl Magnesium Level 2.2 mg/dl Assessment and Plan 71yo female: 1. acute/chronic hypercarbic resp failure - acute component resolved. Cont prednisone 10mg daily and wean in 48 hours. 2. b/l pneumonia, gram negative vs aspiration vs other - clinically resolved; completed 10+ days of abx therapy. Abx have been d/c. 3. VRE UTI - resolved. Has completed 10 days of zyvox. Abx stopped. 4. chronic thoracic/lumbar pain / chronic pain syndrome with acute worsening - acute worsening 2nd to new t-spine compression fracture. cont methadone 25mg TID cont norco 10's prn TLSO brace voltaren gel qid lidoderm patches k-pad if available 5. anemia, normocytic - iron studies c/w ACD. B12 low-normal - supplement. Hb 7.8 today - follow. 6. hypophosphatemia - cont replacement. 7. acute kidney injury in setting of CKD stage 3 - DIONI resolved, Cr is at baseline. 8. recent acute/chronic diastolic CHF - acute component resolved but getting PO lasix for LE edema. 9. LE edema - could be from hypoalbuminemia / dependency or acute/chronic diastolic CHF. Dopplers neg for DVT. Resumed lasix. 10. a fib vs a tach - likely atrial tach; no anticoagulation at this time. 11. chronic steroid dependency for COPD - cont to wean back to basal amount. 12. DVT proph - SCDs/heparin SC. 13. HTN - controlled. 14. diarrhea - resolved. d/c colestipol. immodium prn. 15. insomnia - cont restoril. lengthy discussion (25 minutes) held with pt's son by phone reviewed plan of care discussed prognosis discussed code status, palliative care, opiate dependency, all issues questions answered tx to med/surg Continued [facility] stay due to: inadequate oral pain control, voiding difficulties , ambulation difficulties, multiple IV medications needed Discharge planning: [facility] facility
[2016-10-20] MEDS: DICLOFENAC SOD 1% GEL 100 GM TUBE EXT SCH ×4 (08:00→20:46)
[2016-10-20] MEDS: CHECK CLONIDINE PATCH PLACEMENT SCH ×3 (08:00→23:06)
[2016-10-20] MEDS: MEGESTROL ACETATE SUSP 400 MG/10 ML UDC PO SCH ×2 (08:00→08:35)
[2016-10-20] MEDS: FLUTICASONE PROPIONATE NA SPR 16 GM BTL NAE SCH ×2 (08:31→20:47)
[2016-10-20] MEDS: CALCITONIN SALMON NA 200 IU/AC 3.7 ML BTL NAE SCH (08:31)
[2016-10-20] MEDS: IPRATROPIUM BROMIDE/ALBUTEROL respimat INH INH SCH ×4 (08:31→20:47)
[2016-10-20] MEDS: FLUTICASONE/SALMETEROL 250/50 (ADVAIR) 14 PUFF/1 INHALER INH SCH ×2 (08:31→20:47)
[2016-10-20] MEDS: SUCRALFATE 1 GM/10 ML UDC PO SCH ×4 (08:32→21:02)
[2016-10-20] MEDS: NYSTATIN SUSP 500,000 U/5 ML UDC PO SCH ×2 (08:32→11:37)
[2016-10-20] MEDS: NYSTATIN POWDER 15GM BTL EXT SCH ×3 (08:32→20:00)
[2016-10-20] MEDS: MULTIVITAMIN TAB PO SCH (08:33)
[2016-10-20] MEDS: AMLODIPINE BESYLATE 5 MG TAB PO SCH (08:34)
[2016-10-20] MEDS: BACLOFEN 10 MG TAB PO SCH ×2 (08:34→21:04)
[2016-10-20] MEDS: ALLOPURINOL 100 MG TAB PO SCH ×2 (08:34→21:02)
[2016-10-20] MEDS: CYANOCOBALAMIN 500 MCG TAB (VIT B-12) PO SCH (08:34)
[2016-10-20] MEDS: CARVEDILOL 25 MG TAB PO SCH ×2 (08:35→21:02)
[2016-10-20] MEDS: PANTOprazole SOD 40 MG TAB PO SCH ×2 (08:35→21:03)
[2016-10-20] MEDS: CHOLECALCIFEROL 1000 INTER.UNIT TAB PO SCH (08:35)
[2016-10-20] MEDS: SENNA 8.6 MG TAB PO SCH (08:35)
[2016-10-20] MEDS: METHADONE HCL 10 MG TAB PO SCH ×3 (08:36→20:50)
[2016-10-20] MEDS: FUROSEMIDE 20 MG TAB PO SCH (08:36)
[2016-10-20] MEDS: LIDODERM (LIDOCAINE) PATCH 5% TD SCH (08:37)
[2016-10-20] MEDS: ONDANSETRON INJ 2 MG/ML 2 ML VIAL IV PRN ×2 (08:45→20:58)
[2016-10-20 10:04] LABS: BASO % 0.2 %; BASO ABS # 0.03 K/uL (0-0.2); COMPLETE YES; EOS % 0.1 %; IG% 1.3 %; LYMPH % 6.6 %; LYMPH ABS # 1.19 K/uL (1.2-3.4); MEAN CORPUSCULAR HEMOGLOBIN 28.8 pg (25-34); MEAN CORPUSCULAR HGB CONC 33.1 g/dl (32-36); MEAN PLATELET VOLUME 11.9 fL (7.4-10.4); MONO % 12.2 %; NEUT % 79.6 %; PLATELET COUNT 178 K/uL (130-400); RED BLOOD COUNT 2.99 M/uL (4.2-5.4); WHITE BLOOD COUNT 18.07 K/uL (4.8-10.8)
[2016-10-20 10:14] LABS: HYPOCHROMIA PRESENT; PLT ESTIMATE DECREASED; VACUOLIZATION 1+
--- NOTE | 2016-10-20 10:53 | Infectious Disease Progress Nt ---
Progress Note Date of Service October 20, 2016. Subjective Pt evaluation today including: conversation w/ patient, physical exam, chart review, lab review, review of studies, conversation w/ devops consultant, review of inpatient medication list Patient is feeling better today. She continues to have very severe mid thoracic back pain when she is laying flat or when she is moving around. She feels slightly better sitting up in the chair with her legs up. Her WBC count on 10/17 was 17.27. I repeated her WBC count this morning and it was 18.07. She is on prednisone. She denies cough, SOB, sweats, chills, N/V/D. She states that her diarrhea resolved when her abx were discontinued. Thoracic spine X-Ray showed T9 compression fracture. The patient is asking to be evaluated by Ortho Spine. I discussed this patient with Dr. Alberto as well. All Other Systems: Reviewed and Negative Medications Current Inpatient Medications Medications (Trade) Dose Ordered Sig/Estephania Route Start Time Stop Time Status Last Admin Dose Admin Allopurinol (Zyloprim Tab) 100 mg BID PO 10/05/16 08:00 11/04/16 07:59 10/20/16 08:34 100 MG Amlodipine Besylate (Norvasc Tab) 10 mg DAILY PO 10/05/16 08:00 11/04/16 07:59 10/20/16 08:34 10 MG Baclofen (Lioresal Tab) 10 mg BID PO 10/05/16 08:00 11/04/16 07:59 10/20/16 08:34 10 MG Calcitonin [place] (Fortical Nasal [place]) 1 spray DAILY ERIC 10/05/16 08:00 11/04/16 07:59 10/20/16 08:31 1 SPRAY Carvedilol (Coreg Tab) 25 mg BID PO 10/05/16 08:00 11/04/16 07:59 10/20/16 08:35 25 MG Cholecalciferol (Vitamin D Tab) 2,000 inter.unit DAILY PO 10/05/16 08:00 11/04/16 07:59 10/20/16 08:35 2,000 INTER.UNIT Diclofenac Sodium (Voltaren 1% Top Gel) 1 appln QID EXT 10/05/16 08:00 11/04/16 07:59 10/19/16 10:31 1 APPLN Duloxetine HCl (Cymbalta Cap) 20 mg DAILY PO 10/05/16 08:00 11/04/16 07:59 Future Hold Salmeterol Xinafoate/ Fluticasone (Advair Diskus 250/50 Inh) 1 puff BID INH 10/05/16 08:00 11/04/16 07:59 10/20/16 08:31 1 PUFF Fluticasone Propionate (Flonase Nasal [place]) 1 sprays BID ERIC 10/05/16 08:00 11/04/16 07:59 10/20/16 08:31 1 SPRAYS Hydralazine HCl (Apresoline Tab) 75 mg TID PO 10/05/16 08:00 11/04/16 07:59 10/20/16 08:32 75 MG Latanoprost (Xalatan Oph Soln) 1 drops HS OPR 10/05/16 22:00 11/04/16 21:59 10/19/16 21:07 1 DROPS Lidocaine (Lidoderm Patch 5%) 1 patch DAILY TD 10/05/16 08:00 11/04/16 07:59 10/20/16 08:37 1 PATCH Magnesium Hydroxide (Milk Of Magnesia Susp) 30 ml DAILY PRN PO 10/05/16 05:15 11/04/16 05:14 Multivitamins (Multivitamin Tab) 1 tab DAILY PO 10/05/16 08:00 11/04/16 07:59 10/20/16 08:33 1 TAB Senna (Senokot Tab) 8.6 mg QAM PO 10/05/16 08:00 11/04/16 07:59 10/20/16 08:35 8.6 MG Miscellaneous (Remove Lidoderm Patch) 1 ea DAILY@21 N/A 10/05/16 21:00 11/04/16 20:59 10/19/16 21:19 1 EA Miscellaneous Information (Check Clonidine Patch Placement) 1 ea QS N/A 10/05/16 08:00 11/04/16 07:59 10/20/16 08:00 1 EA Sucralfate (Carafate Susp) 1 gm ACHS PO 10/05/16 06:30 11/04/16 06:29 10/20/16 08:32 1 GM Megestrol Acetate (Megace Susp) 400 mg QAM PO 10/05/16 08:00 11/04/16 07:59 10/19/16 10:30 400 MG Ondansetron HCl (Zofran Inj) 4 mg Q4H PRN IV 10/06/16 11:00 11/05/16 10:59 10/20/16 08:45 4 MG Hydralazine HCl (HydrALAZINE INJ) 10 mg Q4H PRN IV. 10/08/16 01:45 11/07/16 01:44 10/09/16 17:16 10 MG Tiotropium [place] (Spiriva Handihaler Inhaler) 1 puff DAILY INH 10/09/16 08:00 11/08/16 07:59 Future Hold Heparin Sodium (Porcine) (Heparin 10 Unit/ ml 5 ml Flush) 5 ml PRN PRN FLUSH 10/11/16 02:00 11/10/16 01:59 Pantoprazole Sodium (Protonix Tab) 40 mg BID PO 10/11/16 21:00 11/10/16 20:59 10/20/16 08:35 40 MG Heparin Sodium (Porcine) (Heparin Sq 5000 Unit/0.5ml) 5,000 unit Q12H SQ 10/12/16 18:00 11/11/16 17:59 10/14/16 18:01 5,000 UNIT Clonidine HCl (Xutpeuso-Nyf-6 0.2mg/24hr Patch) 2 patch Fr@0000 TD 10/14/16 00:00 11/13/16 00:00 10/14/16 01:09 2 PATCH Miscellaneous (Remove Clonidine Patch) 1 ea Th@2359 N/A 10/20/16 23:59 11/19/16 23:58 Nystatin (Mycostatin Susp) 5 ml QID PO 10/14/16 17:00 10/20/16 16:59 10/20/16 08:32 5 ML Furosemide (Lasix Tab) 20 mg QAM PO 10/18/16 09:00 11/17/16 08:59 10/20/16 08:36 20 MG Acetaminophen/ Hydrocodone Bitart ([place] 10/325 Tab) 1 tab Q4H PRN PO 10/17/16 15:00 10/31/16 14:59 10/20/16 08:34 1 TAB Nystatin (Mycostatin Powder) 1 appln TID EXT 10/17/16 16:30 11/16/16 16:29 10/20/16 08:32 1 APPLN Loperamide HCl (Imodium Cap) 2 mg Q3H PRN PO 10/17/16 21:00 11/16/16 20:59 Cyanocobalamin (Vitamin B-12 Tab) 1,000 mcg QAM PO 10/18/16 09:00 11/17/16 08:59 10/20/16 08:34 1,000 MCG Methadone HCl (Dolophine Tab) 25 mg TID PO 10/18/16 21:00 11/01/16 20:59 10/20/16 08:36 25 MG Prednisone (PredniSONE TAB) 10 mg DAILY PO 10/19/16 09:00 11/18/16 08:59 10/20/16 08:35 10 MG Temazepam (Restoril Cap) 7.5 mg HS PRN PO 10/18/16 22:00 11/17/16 21:59 10/19/16 23:27 7.5 MG Albuterol/ Ipratropium (Combivent Respimat Inh) 1 puffs QID INH 10/19/16 17:00 11/18/16 16:59 10/20/16 08:31 1 PUFFS Objective Vital Signs Date Time Temp Pulse Resp B/P Pulse Ox O2 Delivery O2 Flow Rate FiO2 10/20/16 08:00 Nasal Cannula 3.0 10/20/16 07:40 36.6 84 16 124/86 95 Nasal Cannula 3.0 10/20/16 00:00 Nasal Cannula 2.0 10/19/16 23:28 36.9 75 18 118/75 94 3.0 10/19/16 21:00 82 16 146/84 10/19/16 14:55 Nasal Cannula 2.0 10/19/16 14:33 36.7 83 16 134/77 90 Nasal Cannula 3.0 10/19/16 12:52 36.7 72 20 93 2.0 10/19/16 12:00 Nasal Cannula 2.0 10/19/16 11:33 36.7 72 20 143/86 93 2.0 Physical Exam General Appearance: WD/WN, no apparent distress Eyes: normal inspection, sclerae normal ENT: hearing grossly normal Neck: supple, trachea midline Respiratory/Chest: chest non-tender, lungs clear, no respiratory distress, no accessory muscle use, + decreased breath sounds (bases) Cardiovascular: regular rate, rhythm, no murmur Abdomen: normal bowel sounds, non tender, soft Neurologic/Psychiatric: alert, normal mood/affect Skin: normal color, warm/dry, no rash Laboratory Results THORACIC SPINE 3 VIEWS ROUTINE CLINICAL HISTORY: T4-7 thoracic spine pain. History of compression fractures. COMPARISON STUDY: Thoracic spine radiographs September 08, 2016. FINDINGS: Multilevel vertebral augmentations are noted within the thoracic and lumbar spine. These compression fractures are unchanged exam of September 08, 2016. A moderate compression fracture of T9 is new since prior exam.. Otherwise, the additional thoracic spine compression fractures appear similar to prior exam. Multiple old left-sided rib fractures are identified. Ribs are better depicted on the rib series. Bibasilar opacities are noted. IMPRESSION: 1. Interval development of a moderate T9 compression fracture since exam of September 08, 2016. 2. Otherwise, unchanged appearance of the thoracic and lumbar spine with numerous compression fracture status post multilevel vertebral augmentation. Item Value Date Time C.difficile Toxin B Gene (PCR) - Final Complete 10/14/16 1010 Stool No C. difficile toxin B gene detected Blood Culture - Final Complete 10/10/16 0215 Blood NO GROWTH Blood Culture - Final Complete 10/10/16 0210 Blood NO GROWTH Last 24 Hours Test 10/20/16 05:21 White Blood Count 18.07 K/uL Red Blood Count 2.99 M/uL Hemoglobin 8.6 g/dL Hematocrit 26.0 % Mean Corpuscular Volume 87.0 fL Mean Corpuscular Hemoglobin 28.8 pg Mean Corpuscular Hemoglobin Concent 33.1 g/dl Platelet Count 178 K/uL Mean Platelet Volume 11.9 fL Neutrophils (%) (Auto) 79.6 % Lymphocytes (%) (Auto) 6.6 % Monocytes (%) (Auto) 12.2 % Eosinophils (%) (Auto) 0.1 % Basophils (%) (Auto) 0.2 % Neutrophils # (Auto) 14.40 K/uL Lymphocytes # (Auto) 1.19 K/uL Monocytes # (Auto) 2.21 K/uL Eosinophils # (Auto) 0.01 K/uL Basophils # (Auto) 0.03 K/uL RDW Standard Deviation 53.1 fL RDW Coefficient of Variation 16.9 % Immature Granulocyte % (Auto) 1.3 % Immature Granulocyte # (Auto) 0.23 K/uL Nucleated RBC Absolute Count (auto) 0.12 K/uL Nucleated Red Blood Cells % 0.7 % Toxic Vacuolation 1+ Platelet Estimate DECREASED Hypochromasia PRESENT Sodium Level 141 mmol/L Potassium Level 5.0 mmol/L Chloride Level 104 mmol/L Carbon Dioxide Level 32 mmol/L Anion Gap 5.0 mmol/L Blood Urea Nitrogen 23 mg/dl Creatinine 1.60 mg/dl Est Creatinine Clear Calc Drug Dose 27.3 ml/min Estimated GFR () 37.7 Estimated GFR (Non- 32.5 BUN/Creatinine Ratio 14.6 Random Glucose 126 mg/dl Calcium Level 8.7 mg/dl Chemistry Specimen Hemolysis Assessment and Plan (1) Acute respiratory failure with hypoxia (2) Altered mental status Status: Acute (3) UTI (urinary tract infection) Patient with acute confusion, respiratory failure, and VRE UTI with possible bibasilar pneumonia/pneumonitis. She completed 7 days of abx therapy and has been feeling much better. She has had slightly increased leukocytosis, but feel this may be due to her prednisone. Will continue to monitor WBC count and symptoms but continue off of abx therapy for now. PROVIDER ADDENDUM: Patient reviewed with Ms. Smith. Agree with above assessment.
[2016-10-20 13:55] VITALS: BP 126/76; PULSE 84
[2016-10-20 15:34] VITALS: BP 122/73; PULSE 81; TEMP 36.7; O2SAT 90
[2016-10-20 20:00] VITALS: O2SAT 90
[2016-10-20] MEDS: LATANOPROST 0.005% OP SOLN 2.5 ML BTL OPR SCH (20:52)
--- NOTE | 2016-10-20 22:05 | Progress Note ---
Subjective Date of Service: October 20, 2016. Subjective Pt evaluation today including: conversation w/ patient, physical exam, chart review, lab review, conversation w/ [employer] infrastructure consultant (infectious disease ), review of inpatient medication list Pain: back - "better" today PO Intake: slightly better Voiding: walker catheter in place no issues overnight fell asleep ok but awoke at 0300 asks for restoril dose to be increased she is more comfortable sleeping in the recliner than the bed denies any pulmonary complaints Problem List Medical Problems: (1) Altered mental status Status: Acute (2) Anemia Status: Acute (3) Bilateral pneumonia Status: Acute (4) CHF (congestive heart failure) Status: Acute (5) Chronic Kidney Disease, Stage Iii (Moderate) Status: Chronic (6) COPD exacerbation Status: Acute (7) COPD exacerbation Status: Acute (8) Crystal arthritis Status: Chronic (9) Duodenal bulb ulcer Status: Chronic (10) Failure of outpatient treatment Status: Acute (11) Failure of outpatient treatment Status: Acute (12) Gout Status: Chronic (13) Hyperlipidemia Nec/Nos Status: Chronic (14) Hypertension Status: Chronic (15) Hypoxemia Status: Acute (16) Hypoxia Status: Acute (17) Hypoxia Status: Acute (18) Hypoxia Status: Acute (19) Hypoxia Status: Acute (20) Lumbar compression fracture Status: Chronic (21) Opiate use Status: Chronic (22) Osteoporosis Status: Chronic (23) Peripheral edema Status: Acute (24) Pneumonia Status: Acute (25) Pneumonia Status: Acute (26) Pneumonia involving right lung Status: Acute (27) Respiratory acidosis Status: Acute (28) Respiratory distress Status: Acute (29) Right renal artery stenosis Status: Chronic (30) Secondary hyperparathyroidism Status: Chronic (31) UTI (urinary tract infection) Status: Acute Review of Systems Constitutional: No fever Respiratory: No dyspnea at rest Cardiac: No chest pain Abdomen: No diarrhea, No pain Objective Vital Signs Date Time Temp Pulse Resp B/P Pulse Ox O2 Delivery O2 Flow Rate FiO2 10/20/16 20:00 90 Nasal Cannula 3.0 10/20/16 16:00 Nasal Cannula 3.0 10/20/16 15:34 36.7 81 20 122/73 90 Nasal Cannula 3.0 10/20/16 13:55 84 126/76 10/20/16 08:00 Nasal Cannula 3.0 10/20/16 07:40 36.6 84 16 124/86 95 Nasal Cannula 3.0 10/20/16 00:00 Nasal Cannula 2.0 10/19/16 23:28 36.9 75 18 118/75 94 3.0 Physical Exam General Appearance: no apparent distress, + pertinent finding (again looks good today) ENT: pharynx normal, + pertinent finding (no thrush) Neck: no JVD Respiratory/Chest: no respiratory distress, no accessory muscle use, + decreased breath sounds (bases), + rales (bases) Cardiovascular: regular rate, rhythm, no gallop, no murmur Abdomen: normal bowel sounds, non tender, soft, no organomegaly Extremities: + pedal edema (3+ pitting edema from feet to the knees (and even in thighs)) Neurologic/Psychiatric: alert, oriented x 3 Skin: + pertinent finding (resolving ecchymoses over right neck ) Laboratory Results Last 24 Hours Test 10/20/16 05:21 White Blood Count 18.07 K/uL Red Blood Count 2.99 M/uL Hemoglobin 8.6 g/dL Hematocrit 26.0 % Mean Corpuscular Volume 87.0 fL Mean Corpuscular Hemoglobin 28.8 pg Mean Corpuscular Hemoglobin Concent 33.1 g/dl Platelet Count 178 K/uL Mean Platelet Volume 11.9 fL Neutrophils (%) (Auto) 79.6 % Lymphocytes (%) (Auto) 6.6 % Monocytes (%) (Auto) 12.2 % Eosinophils (%) (Auto) 0.1 % Basophils (%) (Auto) 0.2 % Neutrophils # (Auto) 14.40 K/uL Lymphocytes # (Auto) 1.19 K/uL Monocytes # (Auto) 2.21 K/uL Eosinophils # (Auto) 0.01 K/uL Basophils # (Auto) 0.03 K/uL RDW Standard Deviation 53.1 fL RDW Coefficient of Variation 16.9 % Immature Granulocyte % (Auto) 1.3 % Immature Granulocyte # (Auto) 0.23 K/uL Nucleated RBC Absolute Count (auto) 0.12 K/uL Nucleated Red Blood Cells % 0.7 % Toxic Vacuolation 1+ Platelet Estimate DECREASED Hypochromasia PRESENT Sodium Level 141 mmol/L Potassium Level 5.0 mmol/L Chloride Level 104 mmol/L Carbon Dioxide Level 32 mmol/L Anion Gap 5.0 mmol/L Blood Urea Nitrogen 23 mg/dl Creatinine 1.60 mg/dl Est Creatinine Clear Calc Drug Dose 27.3 ml/min Estimated GFR () 37.7 Estimated GFR (Non- 32.5 BUN/Creatinine Ratio 14.6 Random Glucose 126 mg/dl Calcium Level 8.7 mg/dl Chemistry Specimen Hemolysis Assessment and Plan 71yo female: 1. acute/chronic hypercarbic resp failure - acute component resolved. 2. b/l pneumonia, gram negative vs aspiration vs other - clinically resolved; completed 10+ days of abx therapy. Abx have been d/c. 3. VRE UTI - resolved. Has completed 10 days of zyvox. Abx stopped. 4. chronic thoracic/lumbar pain / chronic pain syndrome with acute worsening - acute worsening 2nd to new t-spine compression fracture. cont methadone 25mg TID cont norco 10's prn TLSO brace voltaren gel qid lidoderm patches k-pad if available had lengthy discussion with her about kyphoplasty I recommended against such at this time as her pain has improved with adjustment of pain meds and she is a poor surgical candidate for many reasons ( recent intubation, etc) 5. anemia, normocytic - iron studies c/w ACD. B12 low-normal - supplement. H/ H stable in the mid 8's. 6. hypophosphatemia - cont replacement. Recheck level am. 7. acute kidney injury in setting of CKD stage 3 - DIONI resolved, Cr is at baseline. 8. recent acute/chronic diastolic CHF - acute component resolved but getting PO lasix for LE edema. 9. LE edema - dopplers neg for DVT. Cont lasix 20mg daily. Albumin 2.5. TSH normal. 10. a fib vs a tach - likely atrial tach; no anticoagulation at this time. 11. chronic steroid dependency for COPD - wean to 5mg daily starting in AM ( chronic dose). 12. DVT proph - SCDs/heparin SC. 13. HTN - controlled. 14. diarrhea - resolved. 15. insomnia - cont restoril. Increase to 15mg HS prn. likely a candidate for d/c tomorrow back to [facility] Continued [facility] stay due to: voiding difficulties, ambulation difficulties Discharge planning: longterm facility
[2016-10-20] MEDS: TEMAZEPAM 7.5 MG CAP PO PRN (23:04)
[2016-10-20] MEDS: CLONIDINE HCL 0.2 MG/24 HR TRANSDERM SYS TD SCH (23:06)
[2016-10-20 23:51] VITALS: BP 118/76; PULSE 80; TEMP 36.7; O2SAT 94
[2016-10-21] VITALS (7 sets, daily range): BP systolic 105–146; BP diastolic 70–81; PULSE 71–80; TEMP 36.1–38.7; O2SAT 90–95
[2016-10-21] MEDS: HEPARIN SOD 5000 UNIT/0.5 ML CARP SQ SCH ×2 (06:01→17:49)
[2016-10-21] MEDS: SUCRALFATE 1 GM/10 ML UDC PO SCH ×4 (06:02→20:17)
[2016-10-21] MEDS: HYDROCODONE/ACETAMI 10/325 TAB PO PRN ×2 (06:05→22:06)
[2016-10-21] MEDS: MEGESTROL ACETATE SUSP 400 MG/10 ML UDC PO SCH ×2 (08:00→08:39)
[2016-10-21] MEDS: DICLOFENAC SOD 1% GEL 100 GM TUBE EXT SCH ×5 (08:00→17:31)
[2016-10-21] MEDS: DULOXETINE HCL 20 MG CAP PO SCH (08:00)
[2016-10-21] MEDS: FLUTICASONE/SALMETEROL 250/50 (ADVAIR) 14 PUFF/1 INHALER INH SCH ×2 (08:33→20:13)
[2016-10-21] MEDS: NYSTATIN POWDER 15GM BTL EXT SCH ×3 (08:33→20:13)
[2016-10-21] MEDS: TIOTROPIUM BROMIDE 5 PUFF/90 MCG INH INH SCH (08:34)
[2016-10-21] MEDS: FLUTICASONE PROPIONATE NA SPR 16 GM BTL NAE SCH ×2 (08:34→20:14)
[2016-10-21] MEDS: IPRATROPIUM BROMIDE/ALBUTEROL respimat INH INH SCH ×4 (08:34→20:13)
[2016-10-21] MEDS: CALCITONIN SALMON NA 200 IU/AC 3.7 ML BTL NAE SCH (08:35)
[2016-10-21] MEDS: METHADONE HCL 10 MG TAB PO SCH ×3 (08:35→20:16)
[2016-10-21] MEDS: PANTOprazole SOD 40 MG TAB PO SCH ×2 (08:36→20:17)
[2016-10-21] MEDS: FUROSEMIDE 20 MG TAB PO SCH (08:36)
[2016-10-21] MEDS: CYANOCOBALAMIN 500 MCG TAB (VIT B-12) PO SCH (08:37)
[2016-10-21] MEDS: BACLOFEN 10 MG TAB PO SCH ×2 (08:37→20:16)
[2016-10-21] MEDS: AMLODIPINE BESYLATE 5 MG TAB PO SCH (08:37)
[2016-10-21] MEDS: CHOLECALCIFEROL 1000 INTER.UNIT TAB PO SCH (08:38)
[2016-10-21] MEDS: CARVEDILOL 25 MG TAB PO SCH ×2 (08:38→20:15)
[2016-10-21] MEDS: MULTIVITAMIN TAB PO SCH (08:38)
[2016-10-21] MEDS: ALLOPURINOL 100 MG TAB PO SCH ×2 (08:38→20:16)
[2016-10-21] MEDS: SENNA 8.6 MG TAB PO SCH (08:38)
[2016-10-21] MEDS: LIDODERM (LIDOCAINE) PATCH 5% TD SCH (08:39)
[2016-10-21] MEDS: CHECK CLONIDINE PATCH PLACEMENT SCH ×2 (08:40→15:58)
[2016-10-21 08:42] LABS: HEMATOCRIT 26.5 % (37-47); MEAN CELL VOLUME 87.7 fL (80-100); MEAN CORPUSCULAR HEMOGLOBIN 29.5 pg (25-34); MEAN CORPUSCULAR HGB CONC 33.6 g/dl (32-36); PLATELET COUNT 198 K/uL (130-400); RED BLOOD COUNT 3.02 M/uL (4.2-5.4); WHITE BLOOD COUNT 20.82 K/uL (4.8-10.8)
[2016-10-21] MEDS: ONDANSETRON INJ 2 MG/ML 2 ML VIAL IV PRN ×2 (08:53→17:49)
[2016-10-21 09:08] LABS: ANISOCYTOSIS PRESENT; BASO % 0.1 %; BASO ABS # 0.03 K/uL (0-0.2); COMPLETE YES; EOS % 0.4 %; IG% 3.4 %; LYMPH % 10.9 %; LYMPH ABS # 2.26 K/uL (1.2-3.4); MONO % 13.4 %; NEUT % 71.8 %; POIKILOCYTOSIS PRESENT
[2016-10-21 10:49] LABS: BLOOD UREA NITROGEN 27 mg/dl (7-18); BUN/CREATININE RATIO 15.8 (10-20); CALCIUM 9.3 mg/dl (8.5-10.1); CARBON DIOXIDE 31 mmol/L (21-32); CHLORIDE 102 mmol/L (98-107); GLUCOSE 81 mg/dl (70-99); PHOSPHORUS 3.6 mg/dl (2.5-4.9); SODIUM 140 mmol/L (136-145)
[2016-10-21] MEDS: LATANOPROST 0.005% OP SOLN 2.5 ML BTL OPR SCH (20:18)
--- NOTE | 2016-10-21 22:12 | Progress Note ---
Subjective Date of Service: October 21, 2016. Subjective Pt evaluation today including: conversation w/ patient, physical exam, chart review, lab review, review of inpatient medication list Pain: back - about the same as yesterday PO Intake: poor; wants diet advanced Voiding: walker catheter in place (does not think she can have it removed due to difficulty getting on bed escobar) no issues overnight slept ok with increased dose of restoril she declined the LSO brace this am she asks about something "for anxiety and depression" she also inquires if there would be some other place other than [facility] she could live doesn't want to look outside [facility], however Problem List Medical Problems: (1) Altered mental status Status: Acute (2) Anemia Status: Acute (3) Bilateral pneumonia Status: Acute (4) CHF (congestive heart failure) Status: Acute (5) Chronic Kidney Disease, Stage Iii (Moderate) Status: Chronic (6) COPD exacerbation Status: Acute (7) COPD exacerbation Status: Acute (8) Crystal arthritis Status: Chronic (9) Duodenal bulb ulcer Status: Chronic (10) Failure of outpatient treatment Status: Acute (11) Failure of outpatient treatment Status: Acute (12) Gout Status: Chronic (13) Hyperlipidemia Nec/Nos Status: Chronic (14) Hypertension Status: Chronic (15) Hypoxemia Status: Acute (16) Hypoxia Status: Acute (17) Hypoxia Status: Acute (18) Hypoxia Status: Acute (19) Hypoxia Status: Acute (20) Lumbar compression fracture Status: Chronic (21) Opiate use Status: Chronic (22) Osteoporosis Status: Chronic (23) Peripheral edema Status: Acute (24) Pneumonia Status: Acute (25) Pneumonia Status: Acute (26) Pneumonia involving right lung Status: Acute (27) Respiratory acidosis Status: Acute (28) Respiratory distress Status: Acute (29) Right renal artery stenosis Status: Chronic (30) Secondary hyperparathyroidism Status: Chronic (31) UTI (urinary tract infection) Status: Acute Review of Systems Constitutional: No fever Respiratory: No cough, No dyspnea on exertion, No shortness of breath, No sputum, No wheezing Cardiac: + edema, No chest pain, No orthopnea Abdomen: No diarrhea, No nausea, No pain Objective Vital Signs Date Time Temp Pulse Resp B/P Pulse Ox O2 Delivery O2 Flow Rate FiO2 10/21/16 20:12 76 146/81 10/21/16 16:09 Nasal Cannula 2.0 10/21/16 15:08 36.1 76 18 105/74 91 Nasal Cannula 3.0 10/21/16 14:15 79 120/72 10/21/16 08:00 95 Nasal Cannula 2.0 10/21/16 07:45 36.6 71 18 106/70 95 2.0 10/21/16 00:00 90 Nasal Cannula 3.0 10/20/16 23:51 36.7 80 18 118/76 94 3.0 Physical Exam General Appearance: no apparent distress, + pertinent finding (sitting in chair , NAD) ENT: pharynx normal (no thrush, MMM) Neck: no JVD Respiratory/Chest: lungs clear, no respiratory distress, + decreased breath sounds (bases) Cardiovascular: regular rate, rhythm, no gallop, no murmur Abdomen: normal bowel sounds, non tender, soft, no organomegaly, + distended ( mild) Extremities: + pedal edema (3+ b/l - no change) Neurologic/Psychiatric: alert, oriented x 3 Skin: + pertinent finding (ecchymoses over right neck - improved ) Laboratory Results Last 24 Hours Test 10/21/16 08:20 10/21/16 11:13 White Blood Count 20.82 K/uL Red Blood Count 3.02 M/uL Hemoglobin 8.9 g/dL Hematocrit 26.5 % Mean Corpuscular Volume 87.7 fL Mean Corpuscular Hemoglobin 29.5 pg Mean Corpuscular Hemoglobin Concent 33.6 g/dl Platelet Count 198 K/uL Mean Platelet Volume 11.0 fL Neutrophils (%) (Auto) 71.8 % Lymphocytes (%) (Auto) 10.9 % Monocytes (%) (Auto) 13.4 % Eosinophils (%) (Auto) 0.4 % Basophils (%) (Auto) 0.1 % Neutrophils # (Auto) 14.95 K/uL Lymphocytes # (Auto) 2.26 K/uL Monocytes # (Auto) 2.79 K/uL Eosinophils # (Auto) 0.08 K/uL Basophils # (Auto) 0.03 K/uL RDW Standard Deviation 54.0 fL RDW Coefficient of Variation 17.0 % Immature Granulocyte % (Auto) 3.4 % Immature Granulocyte # (Auto) 0.71 K/uL Nucleated RBC Absolute Count (auto) 0.13 K/uL Nucleated Red Blood Cells % 0.6 % Poikilocytosis PRESENT Basophilic Stippling 1+ Anisocytosis PRESENT Sodium Level 140 mmol/L Potassium Level mmol/L 5.0 mmol/L Chloride Level 102 mmol/L Carbon Dioxide Level 31 mmol/L Anion Gap 7.0 mmol/L Blood Urea Nitrogen 27 mg/dl Creatinine 1.70 mg/dl Est Creatinine Clear Calc Drug Dose 25.7 ml/min Estimated GFR () 35.0 Estimated GFR (Non- 30.2 BUN/Creatinine Ratio 15.8 Random Glucose 81 mg/dl Calcium Level 9.3 mg/dl Phosphorus Level 3.6 mg/dl Assessment and Plan 71yo female: 1. acute/chronic hypercarbic resp failure - acute component resolved. On chronic NC O2 (2 liters). 2. b/l pneumonia, gram negative vs aspiration vs other - resolved. 3. VRE UTI - resolved. 4. chronic thoracic/lumbar pain / chronic pain syndrome with acute worsening - acute worsening 2nd to new t-spine compression fracture. cont methadone 25mg TID; cont norco 10's prn brace declined by patient restart cymbalta 20mg daily; titrate over the next few weeks to goal of 60mg/day voltaren gel qid lidoderm patches k-pad if available 5. anemia, normocytic - iron studies c/w ACD. B12 low-normal - supplement. H/ H stable in the mid 8's. Repeat CBC am. 6. hypophosphatemia - resolved. 7. acute kidney injury in setting of CKD stage 3 - DIONI resolved. Cr slightly worse today, but this is about her baseline. Repeat BMP am. 8. acute/chronic diastolic CHF - baseline weight is about 60-61 kg. Her weight is above this, and her LE edema is severe; try additional dose of lasix today. Re-eval in am. 9. LE edema - dopplers neg for DVT. TSH normal. Recheck albumin in am. Does have proteinuria on u/a. 10. a fib vs a tach - likely atrial tach; no anticoagulation at this time. 11. chronic steroid dependency for COPD - 5mg prednisone daily. 12. DVT proph - SCDs/heparin SC. 13. HTN - controlled; actually BPs are somewhat on low end for her. Reduce dose of hydralazine. 14. diarrhea - resolved. 15. insomnia - cont restoril. 16. depression/anxiety - resume cymbalta 17. FEN - reasonable to liberalize diet to poor po intake. likely a candidate for d/c tomorrow back to [facility] if labs are stable Discharge planning: detention facility
[2016-10-22] MEDS: CHECK CLONIDINE PATCH PLACEMENT SCH ×4 (00:08→23:37)
[2016-10-22 00:12] VITALS: TEMP 36.9
[2016-10-22] MEDS: TEMAZEPAM 7.5 MG CAP PO PRN ×2 (00:37→23:50)
[2016-10-22] MEDS: HEPARIN SOD 5000 UNIT/0.5 ML CARP SQ SCH ×2 (06:23→18:27)
[2016-10-22] MEDS: SUCRALFATE 1 GM/10 ML UDC PO SCH ×4 (06:25→20:31)
[2016-10-22 07:07] LABS: HEMATOCRIT 24.2 % (37-47); MEAN CELL VOLUME 88.3 fL (80-100); MEAN CORPUSCULAR HEMOGLOBIN 28.1 pg (25-34); MEAN CORPUSCULAR HGB CONC 31.8 g/dl (32-36); MEAN PLATELET VOLUME 10.4 fL (7.4-10.4); PLATELET COUNT 217 K/uL (130-400); RED BLOOD COUNT 2.74 M/uL (4.2-5.4)
[2016-10-22 07:17] VITALS: BP 123/77; PULSE 70; TEMP 36.4; O2SAT 95
[2016-10-22 07:33] LABS: BUN/CREATININE RATIO 16.5 (10-20); CALCIUM 8.9 mg/dl (8.5-10.1); CREATININE 1.7 mg/dl (0.60-1.20); POTASSIUM 4.8 mmol/L (3.5-5.1)
[2016-10-22 08:00] VITALS: O2SAT 95
[2016-10-22] MEDS: MEGESTROL ACETATE SUSP 400 MG/10 ML UDC PO SCH ×2 (08:00→08:54)
[2016-10-22] MEDS: SENNA 8.6 MG TAB PO SCH (08:00)
[2016-10-22] MEDS: DICLOFENAC SOD 1% GEL 100 GM TUBE EXT SCH ×4 (08:00→20:00)
[2016-10-22] MEDS: CARVEDILOL 25 MG TAB PO SCH ×2 (08:54→20:36)
[2016-10-22] MEDS: DULOXETINE HCL 20 MG CAP PO SCH (08:55)
[2016-10-22] MEDS: CYANOCOBALAMIN 500 MCG TAB (VIT B-12) PO SCH (08:55)
[2016-10-22] MEDS: BACLOFEN 10 MG TAB PO SCH ×2 (08:55→20:34)
[2016-10-22] MEDS: AMLODIPINE BESYLATE 5 MG TAB PO SCH (08:56)
[2016-10-22] MEDS: METHADONE HCL 10 MG TAB PO SCH ×3 (08:56→20:32)
[2016-10-22] MEDS: ALLOPURINOL 100 MG TAB PO SCH ×2 (08:56→20:33)
[2016-10-22] MEDS: PANTOprazole SOD 40 MG TAB PO SCH ×2 (08:56→20:35)
[2016-10-22] MEDS: FLUTICASONE PROPIONATE NA SPR 16 GM BTL NAE SCH ×2 (08:57→20:31)
[2016-10-22] MEDS: FLUTICASONE/SALMETEROL 250/50 (ADVAIR) 14 PUFF/1 INHALER INH SCH ×2 (08:57→20:30)
[2016-10-22] MEDS: IPRATROPIUM BROMIDE/ALBUTEROL respimat INH INH SCH ×4 (08:57→20:30)
[2016-10-22] MEDS: CHOLECALCIFEROL 1000 INTER.UNIT TAB PO SCH (08:57)
[2016-10-22] MEDS: MULTIVITAMIN TAB PO SCH (08:57)
[2016-10-22] MEDS: CALCITONIN SALMON NA 200 IU/AC 3.7 ML BTL NAE SCH (08:58)
[2016-10-22] MEDS: TIOTROPIUM BROMIDE 5 PUFF/90 MCG INH INH SCH (08:58)
[2016-10-22] MEDS: LIDODERM (LIDOCAINE) PATCH 5% TD SCH (08:59)
[2016-10-22] MEDS: NYSTATIN POWDER 15GM BTL EXT SCH ×3 (09:00→20:29)
[2016-10-22] MEDS: HYDROCODONE/ACETAMI 10/325 TAB PO PRN ×3 (09:06→23:51)
[2016-10-22] MEDS: ONDANSETRON INJ 2 MG/ML 2 ML VIAL IV PRN ×2 (09:06→18:40)
[2016-10-22 11:28] LABS: URINE APPEARANCE CLEAR (CLEAR); URINE BILIRUBIN NEG (NEG); URINE COLOR YELLOW; URINE NITRITE NEG (NEG); URINE PH >= 9.0 (4.5-7.5); URINE SPECIFIC GRAVITY 1.015 (1.000-1.030); UROBILINOGEN NEG (NEG)
[2016-10-22 11:40] LABS: MANUAL MICROSCOPIC REQUIRED? NO; REVIEW REQ? NO; SULFASALICYLIC ACID POS (NEG)
--- NOTE | 2016-10-22 11:45 | DIAGNOSTIC IMAGING REPORT ---
SINGLE VIEW CHEST CLINICAL HISTORY: COPD. Recent pneumonia. FINDINGS: An AP, portable, upright chest radiograph is compared to study dated 10/18/2016. Correlation is made with chest CT dated 07/22/2016. The examination is significantly degraded by portable technique and patient rotation. The examination is also degraded by the patient's head largely obscuring the apices. The heart is enlarged and there is atherosclerotic calcification of the thoracic aorta. The pulmonary vasculature is noncongested. There are low lung volumes and chronic interstitial thickening. Small pleural effusions and dependent consolidation are again seen at both lung bases. Linear atelectasis is present in the right lung. No pneumothorax is identified. The skeletal structures are osteopenic. Thoracic and lumbar compression deformities are identified with evidence of previous multilevel vertebroplasty. Postoperative change and chronic posttraumatic deformity are seen in the left humerus. There are numerous healed bilateral rib fractures. IMPRESSION: 1. No significant change from 10/13/2016. 2. Cardiomegaly without radiographic evidence of congestive failure. 3. Pleural effusions and dense bibasilar consolidation are again noted. This likely represents atelectasis and clinical correlation will be required. Electronically signed by: Tej Bernard M.D. 10/22/2016 11:44 AM Dictated Date/Time: 10/22/2016 11:41 AM
[2016-10-22 13:42] VITALS: BP 113/70; PULSE 66; O2SAT 93
[2016-10-22 15:26] VITALS: BP 112/73; PULSE 66; TEMP 36.4; O2SAT 94
[2016-10-22] MEDS ORDERED: BUMETANIDE IV 0.5 MG in SYRINGE 0 ML IV ONE (16:15)
[2016-10-22 20:29] VITALS: BP 130/73; PULSE 70
[2016-10-22] MEDS: LATANOPROST 0.005% OP SOLN 2.5 ML BTL OPR SCH (20:32)
[2016-10-23] VITALS (7 sets, daily range): BP systolic 107–135; BP diastolic 63–81; PULSE 68–75; TEMP 36.3–36.7; O2SAT 92–96
--- NOTE | 2016-10-23 04:59 | Progress Note ---
Subjective Date of Service: late entry for visit October 22, 2016. Subjective Pt evaluation today including: conversation w/ patient, physical exam, chart review, lab review, review of studies (cxr), review of inpatient medication list Pain: back, but no worse than previous PO Intake: improved after we liberalized the diet yesterday Voiding: walker catheter in place last pm had a fever of >38 nurses report she had numerous blankets on, these were removed, and the fever resolved w/o any intervention patient thinks she had a "real fever" she also had chills this am, however, she doesn't feel sick denies ear pain, sore throat, nasal congestion, cough, wheeze, sob, nausea, emesis, diarrhea when walker was exchanged this am by staff they say the urine was not malodorous Problem List Medical Problems: (1) Altered mental status Status: Acute (2) Anemia Status: Acute (3) Bilateral pneumonia Status: Acute (4) CHF (congestive heart failure) Status: Acute (5) Chronic Kidney Disease, Stage Iii (Moderate) Status: Chronic (6) COPD exacerbation Status: Acute (7) COPD exacerbation Status: Acute (8) Crystal arthritis Status: Chronic (9) Duodenal bulb ulcer Status: Chronic (10) Failure of outpatient treatment Status: Acute (11) Failure of outpatient treatment Status: Acute (12) Gout Status: Chronic (13) Hyperlipidemia Nec/Nos Status: Chronic (14) Hypertension Status: Chronic (15) Hypoxemia Status: Acute (16) Hypoxia Status: Acute (17) Hypoxia Status: Acute (18) Hypoxia Status: Acute (19) Hypoxia Status: Acute (20) Lumbar compression fracture Status: Chronic (21) Opiate use Status: Chronic (22) Osteoporosis Status: Chronic (23) Peripheral edema Status: Acute (24) Pneumonia Status: Acute (25) Pneumonia Status: Acute (26) Pneumonia involving right lung Status: Acute (27) Respiratory acidosis Status: Acute (28) Respiratory distress Status: Acute (29) Right renal artery stenosis Status: Chronic (30) Secondary hyperparathyroidism Status: Chronic (31) UTI (urinary tract infection) Status: Acute Review of Systems Respiratory: No cough, No sputum Cardiac: No chest pain, No orthopnea Abdomen: No nausea, No pain, No vomiting Musculoskeletal: No joint pain Skin: No itch, No rash Objective Vital Signs Date Time Temp Pulse Resp B/P Pulse Ox O2 Delivery O2 Flow Rate FiO2 5/28/17 00:00 36.7 71 20 132/81 92 Nasal Cannula 4.0 10/22/16 23:35 Nasal Cannula 4.0 10/22/16 20:29 70 130/73 10/22/16 16:00 Nasal Cannula 5.0 10/22/16 15:26 36.4 66 18 112/73 94 Nasal Cannula 5.0 10/22/16 13:42 66 18 113/70 93 Nasal Cannula 3.0 10/22/16 08:00 95 Nasal Cannula 4.0 10/22/16 07:17 36.4 70 16 123/77 95 Nasal Cannula 4.0 Physical Exam General Appearance: no apparent distress, + pertinent finding (lying in recliner; looks the same as yesterday; a/o x 3 ) ENT: pharynx normal (MMM, no thrush) Neck: no adenopathy, no JVD Respiratory/Chest: lungs clear, no respiratory distress, no accessory muscle use Cardiovascular: regular rate, rhythm, no gallop, no JVD, no murmur Abdomen: normal bowel sounds, non tender, soft, no organomegaly Extremities: + pedal edema (3+ pitting edema of the thighs and lower extremities ) Neurologic/Psychiatric: alert, oriented x 3 Skin: no rash Comments: musculo - no gout or synovitis of any joint of the upper or lower extremities Laboratory Results Last 24 Hours Test 10/22/16 06:34 10/22/16 06:43 10/22/16 11:15 10/22/16 13:23 Sodium Level 141 mmol/L Potassium Level 4.8 mmol/L Chloride Level 104 mmol/L Carbon Dioxide Level 32 mmol/L Anion Gap 5.0 mmol/L Blood Urea Nitrogen 28 mg/dl Creatinine 1.70 mg/dl Est Creatinine Clear Calc Drug Dose 25.7 ml/min Estimated GFR () 35.0 Estimated GFR (Non- 30.2 BUN/Creatinine Ratio 16.5 Random Glucose 82 mg/dl Calcium Level 8.9 mg/dl Albumin 2.8 gm/dl White Blood Count 20.60 K/uL Red Blood Count 2.74 M/uL Hemoglobin 7.7 g/dL 7.8 g/dL Hematocrit 24.2 % Mean Corpuscular Volume 88.3 fL Mean Corpuscular Hemoglobin 28.1 pg Mean Corpuscular Hemoglobin Concent 31.8 g/dl RDW Standard Deviation 53.1 fL RDW Coefficient of Variation 16.8 % Platelet Count 217 K/uL Mean Platelet Volume 10.4 fL Nucleated RBC Absolute Count (auto) 0.11 K/uL Nucleated Red Blood Cells % 0.5 % Urine Color YELLOW Urine Appearance CLEAR Urine pH >= 9.0 Urine Specific [place] 1.015 Urine Protein 1+ Urine Glucose (UA) NEG Urine Ketones NEG Urine Occult Blood NEG Urine Nitrite NEG Urine Bilirubin NEG Urine Urobilinogen NEG Urine Leukocyte Esterase LARGE Urine WBC (Auto) >30 /hpf Urine RBC (Auto) 0-4 /hpf Urine Hyaline Casts (Auto) 10-30 /lpf Urine Epithelial Cells (Auto) 5-10 /lpf Urine Bacteria (Auto) 2+ Test 10/23/16 04:49 Assessment and Plan 71yo female: 1. acute/chronic hypercarbic resp failure - acute component resolved. On chronic NC O2 (2 liters) and stable. 2. b/l pneumonia, gram negative vs aspiration vs other - resolved. CXR today w /o evolving infiltrates. 3. VRE UTI - resolved. Repeat u/a mildly dirty; will simply await urine cx for test of cure. 4. chronic thoracic/lumbar pain / chronic pain syndrome with acute worsening - acute worsening 2nd to new t-spine compression fracture. cont methadone 25mg TID; cont norco 10's prn brace declined by patient restart cymbalta 20mg daily; titrate over the next few weeks to goal of 60mg/day voltaren gel qid lidoderm patches k-pad if available 5. anemia, normocytic - iron studies c/w ACD. B12 low-normal - supplement. Repeat Hb this am high 7's. Will Tx if Hb < 7.5. 6. hypophosphatemia - resolved. 7. acute kidney injury in setting of CKD stage 3 - DIONI resolved. Cr stable 1.7 today. 8. acute/chronic diastolic CHF - cxr and exam w/o pulmonary edema. Has LE edema but unlikely related to her CHF. Right heart on recent echo was normal ( ie no cor pulmonale). 9. LE edema - dopplers neg for DVT. TSH normal. Albumin 2.9. Suspect dependent edema. Try mild compression and additional dose of diuretic today. 10. a fib vs a tach - likely atrial tach; no anticoagulation at this time. 11. chronic steroid dependency for COPD - 5mg prednisone daily. 12. DVT proph - SCDs/heparin SC. 13. HTN - controlled; hydralazine dose lowered due to low-normal BPs. 14. diarrhea - resolved. 15. insomnia - cont restoril. 16. depression/anxiety - resumed cymbalta due to fever hold off on d/c at this time [facility]
[2016-10-23] MEDS: HEPARIN SOD 5000 UNIT/0.5 ML CARP SQ SCH ×2 (05:43→17:16)
[2016-10-23 06:06] LABS: HEMATOCRIT 24.5 % (37-47); MEAN CELL VOLUME 88.1 fL (80-100); MEAN CORPUSCULAR HEMOGLOBIN 28.1 pg (25-34); MEAN CORPUSCULAR HGB CONC 31.8 g/dl (32-36); MEAN PLATELET VOLUME 10.1 fL (7.4-10.4); PLATELET COUNT 239 K/uL (130-400); RED BLOOD COUNT 2.78 M/uL (4.2-5.4); WHITE BLOOD COUNT 24.28 K/uL (4.8-10.8)
[2016-10-23 06:50] LABS: BUN/CREATININE RATIO 17.6 (10-20); C-REACTIVE PROTEIN 0.55 mg/dl (0-0.29); CALCIUM 9.1 mg/dl (8.5-10.1); CREATININE 1.7 mg/dl (0.60-1.20); POTASSIUM 4.9 mmol/L (3.5-5.1)
[2016-10-23 06:51] LABS: ANISOCYTOSIS PRESENT; BASO % 0.3 %; BASO ABS # 0.07 K/uL (0-0.2); COMPLETE YES; EOS % 0.3 %; IG% 6.3 %; LYMPH % 7.9 %; LYMPH ABS # 1.91 K/uL (1.2-3.4); MONO % 12.8 %; NEUT % 72.4 %; POLYCHROMASIA 1+
[2016-10-23] MEDS: SUCRALFATE 1 GM/10 ML UDC PO SCH ×4 (06:53→20:46)
[2016-10-23] MEDS: SENNA 8.6 MG TAB PO SCH (08:00)
[2016-10-23] MEDS: MEGESTROL ACETATE SUSP 400 MG/10 ML UDC PO SCH (08:00)
[2016-10-23] MEDS: CHECK CLONIDINE PATCH PLACEMENT SCH ×3 (08:00→23:30)
[2016-10-23] MEDS: DICLOFENAC SOD 1% GEL 100 GM TUBE EXT SCH ×4 (08:00→20:00)
[2016-10-23] MEDS: ONDANSETRON INJ 2 MG/ML 2 ML VIAL IV PRN ×2 (08:24→20:44)
[2016-10-23] MEDS: HYDROCODONE/ACETAMI 10/325 TAB PO PRN ×2 (08:28→20:59)
[2016-10-23] MEDS: METHADONE HCL 10 MG TAB PO SCH ×3 (08:29→20:49)
[2016-10-23] MEDS: CARVEDILOL 25 MG TAB PO SCH ×2 (08:32→20:50)
[2016-10-23] MEDS: CHOLECALCIFEROL 1000 INTER.UNIT TAB PO SCH (08:32)
[2016-10-23] MEDS: MULTIVITAMIN TAB PO SCH (08:32)
[2016-10-23] MEDS: DULOXETINE HCL 20 MG CAP PO SCH (08:32)
[2016-10-23] MEDS: LIDODERM (LIDOCAINE) PATCH 5% TD SCH (08:32)
[2016-10-23] MEDS: BACLOFEN 10 MG TAB PO SCH ×2 (08:33→20:51)
[2016-10-23] MEDS: PANTOprazole SOD 40 MG TAB PO SCH ×2 (08:33→20:52)
[2016-10-23] MEDS: AMLODIPINE BESYLATE 5 MG TAB PO SCH (08:33)
[2016-10-23] MEDS: CYANOCOBALAMIN 500 MCG TAB (VIT B-12) PO SCH (08:34)
[2016-10-23] MEDS: FLUTICASONE PROPIONATE NA SPR 16 GM BTL NAE SCH ×2 (08:34→20:47)
[2016-10-23] MEDS: CALCITONIN SALMON NA 200 IU/AC 3.7 ML BTL NAE SCH (08:34)
[2016-10-23] MEDS: ALLOPURINOL 100 MG TAB PO SCH ×2 (08:34→20:51)
[2016-10-23] MEDS: FUROSEMIDE 20 MG TAB PO SCH (08:34)
[2016-10-23] MEDS: FLUTICASONE/SALMETEROL 250/50 (ADVAIR) 14 PUFF/1 INHALER INH SCH ×2 (08:35→20:47)
[2016-10-23] MEDS: IPRATROPIUM BROMIDE/ALBUTEROL respimat INH INH SCH ×4 (08:35→20:48)
[2016-10-23] MEDS: NYSTATIN POWDER 15GM BTL EXT SCH ×3 (08:36→20:47)
[2016-10-23] MEDS: TIOTROPIUM BROMIDE 5 PUFF/90 MCG INH INH SCH (09:22)
[2016-10-23] MEDS: CEFTRIAXONE SOD INJ 1 GM in DEXTROSE 5% ADD-VANTAGE 50ML 50 ML IV SCH (10:23)
--- NOTE | 2016-10-23 19:17 | Progress Note ---
Subjective Date of Service: October 23, 2016. Subjective Pt evaluation today including: conversation w/ patient, physical exam, chart review, lab review, conversation w/ financial services consultant (speech therapy), review of inpatient medication list Pain: back but no worse than previous PO Intake: asks for slippery diet to be discontinued "or I'll go on hungerstrike" Voiding: walker catheter in place Pt c/o about her diet. She wants the "slippery" consistency stopped. She states "I don't aspirate." She denies fevers, chills, abd pain, diarrhea. No other complaints. Problem List Medical Problems: (1) Altered mental status Status: Acute (2) Anemia Status: Acute (3) Bilateral pneumonia Status: Acute (4) CHF (congestive heart failure) Status: Acute (5) Chronic Kidney Disease, Stage Iii (Moderate) Status: Chronic (6) COPD exacerbation Status: Acute (7) COPD exacerbation Status: Acute (8) Crystal arthritis Status: Chronic (9) Duodenal bulb ulcer Status: Chronic (10) Failure of outpatient treatment Status: Acute (11) Failure of outpatient treatment Status: Acute (12) Gout Status: Chronic (13) Hyperlipidemia Nec/Nos Status: Chronic (14) Hypertension Status: Chronic (15) Hypoxemia Status: Acute (16) Hypoxia Status: Acute (17) Hypoxia Status: Acute (18) Hypoxia Status: Acute (19) Hypoxia Status: Acute (20) Lumbar compression fracture Status: Chronic (21) Opiate use Status: Chronic (22) Osteoporosis Status: Chronic (23) Peripheral edema Status: Acute (24) Pneumonia Status: Acute (25) Pneumonia Status: Acute (26) Pneumonia involving right lung Status: Acute (27) Respiratory acidosis Status: Acute (28) Respiratory distress Status: Acute (29) Right renal artery stenosis Status: Chronic (30) Secondary hyperparathyroidism Status: Chronic (31) UTI (urinary tract infection) Status: Acute Review of Systems Constitutional: No chills, No fever Respiratory: No shortness of breath Cardiac: No chest pain, No orthopnea Abdomen: No diarrhea, No nausea, No pain, No vomiting Objective Vital Signs Date Time Temp Pulse Resp B/P Pulse Ox O2 Delivery O2 Flow Rate FiO2 10/23/16 16:04 Nasal Cannula 4.0 10/23/16 15:13 36.3 68 22 109/65 93 Nasal Cannula 4.0 10/23/16 13:45 70 20 107/63 93 Nasal Cannula 4.0 10/23/16 07:45 96 Nasal Cannula 4.0 10/23/16 07:01 36.3 70 20 112/71 96 Nasal Cannula 4.0 10/23/16 00:00 36.7 71 20 132/81 92 Nasal Cannula 4.0 10/22/16 23:35 Nasal Cannula 4.0 10/22/16 20:29 70 130/73 Physical Exam General Appearance: no apparent distress, + pertinent finding (awake, alert, oriented x 3) ENT: pharynx normal (no thrush, MMM) Neck: no JVD Respiratory/Chest: lungs clear, no respiratory distress, no accessory muscle use Cardiovascular: regular rate, rhythm, no gallop, no murmur Abdomen: normal bowel sounds, non tender, soft, no organomegaly Extremities: + pedal edema (3+ pitting edema extending to the thighs) Neurologic/Psychiatric: alert, oriented x 3 Skin: + pertinent finding (ecchymoses right neck just about resolved ) Laboratory Results Last 24 Hours Test 10/23/16 05:20 White Blood Count 24.28 K/uL Red Blood Count 2.78 M/uL Hemoglobin 7.8 g/dL Hematocrit 24.5 % Mean Corpuscular Volume 88.1 fL Mean Corpuscular Hemoglobin 28.1 pg Mean Corpuscular Hemoglobin Concent 31.8 g/dl Platelet Count 239 K/uL Mean Platelet Volume 10.1 fL Neutrophils (%) (Auto) 72.4 % Lymphocytes (%) (Auto) 7.9 % Monocytes (%) (Auto) 12.8 % Eosinophils (%) (Auto) 0.3 % Basophils (%) (Auto) 0.3 % Neutrophils # (Auto) 17.59 K/uL Lymphocytes # (Auto) 1.91 K/uL Monocytes # (Auto) 3.11 K/uL Eosinophils # (Auto) 0.07 K/uL Basophils # (Auto) 0.07 K/uL RDW Standard Deviation 53.2 fL RDW Coefficient of Variation 16.8 % Immature Granulocyte % (Auto) 6.3 % Immature Granulocyte # (Auto) 1.53 K/uL Nucleated RBC Absolute Count (auto) 0.10 K/uL Nucleated Red Blood Cells % 0.4 % Polychromasia 1+ Basophilic Stippling 1+ Anisocytosis PRESENT Erythrocyte Sedimentation Rate 23 mm/hr Sodium Level 141 mmol/L Potassium Level 4.9 mmol/L Chloride Level 103 mmol/L Carbon Dioxide Level 31 mmol/L Anion Gap 7.0 mmol/L Blood Urea Nitrogen 30 mg/dl Creatinine 1.70 mg/dl Est Creatinine Clear Calc Drug Dose 24.5 ml/min Estimated GFR () 35.0 Estimated GFR (Non- 30.2 BUN/Creatinine Ratio 17.6 Random Glucose 68 mg/dl Calcium Level 9.1 mg/dl C-Reactive Protein 0.55 mg/dl Assessment and Plan 71yo female: 1. acute/chronic hypercarbic resp failure - acute component resolved. On chronic NC O2 (2 liters) and stable. 2. b/l pneumonia, gram negative vs aspiration vs other - resolved. CXR w/o evolving infiltrates. 3. VRE UTI (POA) - resolved; completed full course of Rx for this. Now with GNR walker-catheter associated UTI - start rocephin 1gm daily; follow culture. Walker changed on 10/22/16 but I counseled patient that the walker SHOULD BE DISCONTINUED THIS WEEK TO AVOID RECURRENT UTIs (she has been reluctant to take the walker out completely this admission). 4. chronic thoracic/lumbar pain / chronic pain syndrome with acute worsening - acute worsening 2nd to new t-spine compression fracture. cont methadone 25mg TID; cont norco 10's prn Mitchel Guerrero consulted for brace but on 3 separate days she sent him away; she claims she still wants the brace, however restarted cymbalta 20mg daily; titrate over the next few weeks to goal of 60mg/ day voltaren gel qid lidoderm patches 5. anemia, normocytic - iron studies c/w ACD. B12 low-normal - supplement. Repeat Hb this am 7.8. Will Tx if Hb < 7.5. 6. hypophosphatemia - resolved. 7. acute kidney injury in setting of CKD stage 3 - DIONI resolved. Cr stable 1.7 today. 8. acute/chronic diastolic CHF - cxr and exam w/o pulmonary edema. Has LE edema but unlikely related to her CHF. Right heart on recent echo was normal ( ie no cor pulmonale). 9. LE edema - dopplers neg for DVT. TSH normal. Albumin 2.9. Suspect dependent edema. Norvasc could be contributing. Try mild compression with NI wraps, stop the norvasc, and continue lasix 20mg once daily. 10. a fib vs a tach - likely atrial tach; no anticoagulation at this time. 11. chronic steroid dependency for COPD - 5mg prednisone daily. 12. DVT proph - SCDs/heparin SC. 13. HTN - controlled; in fact, BPs are low or low-normal. Hydralazine dose cut back. Stop the norvasc. 14. diarrhea - resolved. 15. insomnia - cont restoril. 16. depression/anxiety - resumed cymbalta 17. leukocytosis - ongoing. Had fever 10/21/16 probably due to the new GNR UTI. Previous to the GNR UTI it was felt that some of the leukocytosis was due to recent steroid burst. Most recent cxr normal/without pneumonia. Hopefully with Rx of UTI the leukocytosis will resolved. 18. h/o dysphagia - reconsult speech therapy due to her complaints about consistency of diet d/c next 1-2 days pending the urine cx Continued [facility] stay due to: multiple IV medications needed Discharge planning: snf facility
[2016-10-23] MEDS: LATANOPROST 0.005% OP SOLN 2.5 ML BTL OPR SCH (20:48)
[2016-10-23] MEDS: TEMAZEPAM 7.5 MG CAP PO PRN (23:29)
[2016-10-24] MEDS: CHECK CLONIDINE PATCH PLACEMENT SCH ×3 (01:19→16:00)
[2016-10-24] MEDS: HYDROCODONE/ACETAMI 10/325 TAB PO PRN ×2 (04:01→10:17)
[2016-10-24] MEDS: HEPARIN SOD 5000 UNIT/0.5 ML CARP SQ SCH ×2 (05:41→18:13)
[2016-10-24 05:46] LABS: HEMATOCRIT 24.4 % (37-47); MEAN CORPUSCULAR HEMOGLOBIN 28.8 pg (25-34); PLATELET COUNT 243 K/uL (130-400); RED BLOOD COUNT 2.71 M/uL (4.2-5.4); WHITE BLOOD COUNT 20.72 K/uL (4.8-10.8)
[2016-10-24] MEDS: SUCRALFATE 1 GM/10 ML UDC PO SCH ×4 (05:47→20:52)
[2016-10-24 06:07] LABS: BUN/CREATININE RATIO 18.2 (10-20); CREATININE 1.8 mg/dl (0.60-1.20); POTASSIUM 5.1 mmol/L (3.5-5.1)
[2016-10-24 06:09] LABS: BASO % 0.2 %; BASO ABS # 0.05 K/uL (0-0.2); COMPLETE YES; EOS % 0.2 %; IG% 6.4 %; LYMPH % 6.8 %; MONO % 9.1 %; NEUT % 77.3 %
[2016-10-24 07:06] VITALS: BP 121/76; PULSE 67; TEMP 36.4; O2SAT 95
[2016-10-24] MEDS: DICLOFENAC SOD 1% GEL 100 GM TUBE EXT SCH ×4 (08:00→20:00)
[2016-10-24] MEDS: SENNA 8.6 MG TAB PO SCH (08:00)
[2016-10-24] MEDS: MEGESTROL ACETATE SUSP 400 MG/10 ML UDC PO SCH (08:00)
[2016-10-24] MEDS: METHADONE HCL 10 MG TAB PO SCH ×3 (08:41→20:49)
[2016-10-24] MEDS: TIOTROPIUM BROMIDE 5 PUFF/90 MCG INH INH SCH (08:42)
[2016-10-24] MEDS: IPRATROPIUM BROMIDE/ALBUTEROL respimat INH INH SCH ×4 (08:43→20:46)
[2016-10-24] MEDS: FLUTICASONE/SALMETEROL 250/50 (ADVAIR) 14 PUFF/1 INHALER INH SCH ×2 (08:43→20:45)
[2016-10-24] MEDS: NYSTATIN POWDER 15GM BTL EXT SCH ×3 (08:46→20:45)
[2016-10-24] MEDS: FLUTICASONE PROPIONATE NA SPR 16 GM BTL NAE SCH ×2 (08:47→20:46)
[2016-10-24] MEDS: CALCITONIN SALMON NA 200 IU/AC 3.7 ML BTL NAE SCH (08:47)
[2016-10-24] MEDS: DULOXETINE HCL 20 MG CAP PO SCH (08:49)
[2016-10-24] MEDS: FUROSEMIDE 20 MG TAB PO SCH (08:49)
[2016-10-24] MEDS: CHOLECALCIFEROL 1000 INTER.UNIT TAB PO SCH (08:49)
[2016-10-24] MEDS: CYANOCOBALAMIN 500 MCG TAB (VIT B-12) PO SCH (08:50)
[2016-10-24] MEDS: BACLOFEN 10 MG TAB PO SCH ×2 (08:50→20:50)
[2016-10-24] MEDS: CARVEDILOL 25 MG TAB PO SCH ×2 (08:50→20:48)
[2016-10-24] MEDS: ALLOPURINOL 100 MG TAB PO SCH ×2 (08:51→20:51)
[2016-10-24] MEDS: MULTIVITAMIN TAB PO SCH (08:52)
[2016-10-24] MEDS: LIDODERM (LIDOCAINE) PATCH 5% TD SCH (08:53)
[2016-10-24] MEDS: PANTOprazole SOD 40 MG TAB PO SCH ×2 (08:53→20:49)
[2016-10-24] MEDS: CEFTRIAXONE SOD INJ 1 GM in DEXTROSE 5% ADD-VANTAGE 50ML 50 ML IV SCH (09:08)
[2016-10-24] MEDS: ERTAPENEM IV 1 GM in SODIUM CHLOR 0.9% AD-VAN 50ML 50 ML IV SCH (11:38)
[2016-10-24 14:53] VITALS: BP 111/67; PULSE 68; TEMP 36.6; O2SAT 94
[2016-10-24 16:00] VITALS: O2SAT 94
--- NOTE | 2016-10-24 18:00 | Progress Note ---
Subjective Date of Service: October 24, 2016. Subjective pt with slight nose bleed, did have newly diagnosed proteus uti with drug resistances, otherwise still bothered by peripheral edema, and generalized weakness but is agreeable to going back to intermediate Problem List Medical Problems: (1) Altered mental status Status: Acute (2) Anemia Status: Acute (3) Bilateral pneumonia Status: Acute (4) CHF (congestive heart failure) Status: Acute (5) Chronic Kidney Disease, Stage Iii (Moderate) Status: Chronic (6) COPD exacerbation Status: Acute (7) COPD exacerbation Status: Acute (8) Crystal arthritis Status: Chronic (9) Duodenal bulb ulcer Status: Chronic (10) Failure of outpatient treatment Status: Acute (11) Failure of outpatient treatment Status: Acute (12) Gout Status: Chronic (13) Hyperlipidemia Nec/Nos Status: Chronic (14) Hypertension Status: Chronic (15) Hypoxemia Status: Acute (16) Hypoxia Status: Acute (17) Hypoxia Status: Acute (18) Hypoxia Status: Acute (19) Hypoxia Status: Acute (20) Lumbar compression fracture Status: Chronic (21) Opiate use Status: Chronic (22) Osteoporosis Status: Chronic (23) Peripheral edema Status: Acute (24) Pneumonia Status: Acute (25) Pneumonia Status: Acute (26) Pneumonia involving right lung Status: Acute (27) Respiratory acidosis Status: Acute (28) Respiratory distress Status: Acute (29) Right renal artery stenosis Status: Chronic (30) Secondary hyperparathyroidism Status: Chronic (31) UTI (urinary tract infection) Status: Acute Review of Systems Constitutional: + fatigue, + weakness, No chills, No fever Respiratory: + dyspnea on exertion, + shortness of breath, No cough Cardiac: + edema, No chest pain, No orthopnea Abdomen: No diarrhea, No nausea, No pain, No vomiting Musculoskeletal: + muscle pain, + swelling Female : No dysuria, No urinary frequency Neurologic: No memory loss, No paralysis Psychiatric: + anxiety, No depression symptoms Objective Vital Signs Date Time Temp Pulse Resp B/P Pulse Ox O2 Delivery O2 Flow Rate FiO2 10/24/16 08:00 Nasal Cannula 4.0 10/24/16 07:06 36.4 67 20 121/76 95 Nasal Cannula 4.0 10/24/16 00:00 Nasal Cannula 4.0 10/23/16 23:14 36.7 68 20 117/72 92 Nasal Cannula 4.0 10/23/16 20:40 75 135/76 10/23/16 16:04 Nasal Cannula 4.0 10/23/16 15:13 36.3 68 22 109/65 93 Nasal Cannula 4.0 10/23/16 13:45 70 20 107/63 93 Nasal Cannula 4.0 Physical Exam General Appearance: WD/WN, + moderate distress Neck: supple, no JVD Respiratory/Chest: chest non-tender, lungs clear, normal breath sounds Cardiovascular: regular rate, rhythm, no murmur Abdomen: normal bowel sounds, non tender, soft Extremities: no calf tenderness, + pedal edema, + swelling Neurologic/Psychiatric: alert, oriented x 3 Laboratory Results Last 24 Hours Test 10/24/16 05:15 White Blood Count 20.72 K/uL Red Blood Count 2.71 M/uL Hemoglobin 7.8 g/dL Hematocrit 24.4 % Mean Corpuscular Volume 90.0 fL Mean Corpuscular Hemoglobin 28.8 pg Mean Corpuscular Hemoglobin Concent 32.0 g/dl Platelet Count 243 K/uL Mean Platelet Volume 11.0 fL Neutrophils (%) (Auto) 77.3 % Lymphocytes (%) (Auto) 6.8 % Monocytes (%) (Auto) 9.1 % Eosinophils (%) (Auto) 0.2 % Basophils (%) (Auto) 0.2 % Neutrophils # (Auto) 16.00 K/uL Lymphocytes # (Auto) 1.40 K/uL Monocytes # (Auto) 1.89 K/uL Eosinophils # (Auto) 0.05 K/uL Basophils # (Auto) 0.05 K/uL RDW Standard Deviation 54.8 fL RDW Coefficient of Variation 17.5 % Immature Granulocyte % (Auto) 6.4 % Immature Granulocyte # (Auto) 1.33 K/uL Nucleated RBC Absolute Count (auto) 0.06 K/uL Nucleated Red Blood Cells % 0.3 % Basophilic Stippling 1+ Sodium Level 142 mmol/L Potassium Level 5.1 mmol/L Chloride Level 104 mmol/L Carbon Dioxide Level 32 mmol/L Anion Gap 6.0 mmol/L Blood Urea Nitrogen 33 mg/dl Creatinine 1.80 mg/dl Est Creatinine Clear Calc Drug Dose 23.2 ml/min Estimated GFR () 32.7 Estimated GFR (Non- 28.2 BUN/Creatinine Ratio 18.2 Random Glucose 76 mg/dl Calcium Level 9.0 mg/dl Assessment and Plan 71yo F with prolongued hospital stay, initally with respiratory failure from meds and hypoventilation, now with new concurrent UTI showing drug resistent p mirabilis acute/chronic hypercarbic resp failure - acute component resolved. On chronic NC O2 (2 liters) and stable. ID new concurrent UTI, b/l pneumonia, gram negative vs aspiration vs other - resolved. CXR 10/22/16 w/o evolving infiltrates, VRE UTI (POA) - resolved; completed full course of Rx for this. Now with p mirabilis, maybe use bactrim with renal dosing Walker changed on 10/22/16 but I counseled patient that the walker should be removed, will consent to scheduled for straight cath's chronic thoracic/lumbar pain / chronic pain syndrome with acute worsening - acute worsening 2nd to new t-spine compression fracture. cont methadone 25mg TID; cont norco 10's prn, attempts to have brace not accepted by patient cymbalta 20mg daily; titrate to goal of 60mg/day over next few weeks voltaren gel qid lidoderm patches Anemia, normocytic likely of chronic disease, - iron studies c/w ACD. B12 low- normal acute kidney injury in setting of CKD stage 3 - DIONI resolved. acute/chronic diastolic CHF -resolbed, LE edema likely dependent edema dopplers neg for DVT. TSH normal. Albumin 2.9. compression elevation and continue lasix 20mg once daily. chronic steroid dependency for COPD - 5mg prednisone daily. DVT proph - SCDs/heparin SC. Continued [facility] stay due to: multiple IV medications needed Discharge planning: shelter facility
[2016-10-24] MEDS: LATANOPROST 0.005% OP SOLN 2.5 ML BTL OPR SCH (20:52)
[2016-10-24 23:05] VITALS: BP 120/76; PULSE 70; TEMP 36.4; O2SAT 93
[2016-10-25] MEDS: CHECK CLONIDINE PATCH PLACEMENT SCH ×4 (00:17→23:56)
[2016-10-25] MEDS: TEMAZEPAM 7.5 MG CAP PO PRN ×2 (00:48→23:55)
[2016-10-25] MEDS: HEPARIN SOD 5000 UNIT/0.5 ML CARP SQ SCH ×2 (05:51→18:11)
[2016-10-25] MEDS: SUCRALFATE 1 GM/10 ML UDC PO SCH ×4 (05:52→20:57)
[2016-10-25] MEDS ORDERED: RST75 PO (06:57)
[2016-10-25] MEDS ORDERED: LSX20 PO (06:57)
[2016-10-25] MEDS ORDERED: NYSP EXT (06:57)
[2016-10-25] MEDS ORDERED: SULF800T23 PO (06:57)
[2016-10-25] MEDS ORDERED: APR25 PO (06:57)
--- NOTE | 2016-10-25 07:04 | Discharge Instructions ---
Discharge Instructions Date of Service October 25, 2016. Admission Reason for Admission: Lethargy; Thrush,Oral; Uti Discharge Discharge Diagnosis / Problem: multiple drug resistent uti's, acute on chronic pain Discharge Goals Goal(s): Diagnostic testing, Therapeutic intervention Activity Recommendations Activity Level: Assistance Required Therapies: Physical Therapy, Occupational Therapy . Additional Information Patient informed of condition: Yes Advance Directives: Yes DNR: No Level of Care: Skilled Communicable Disease: Yes Prognosis: Stable Walker Catheter: Yes (consider traqnsitioning to straight caths) Instructions / Follow-Up Instructions / Follow-Up 71yo F with prolongued hospital stay, initally with respiratory failure from meds and hypoventilation, now with new concurrent UTI showing drug resistent p mirabilis acute/chronic hypercarbic resp failure - acute component resolved. On chronic NC O2 (2 liters) and stable. ID new concurrent UTI, b/l pneumonia, gram negative vs aspiration vs other - resolved. CXR 10/22/16 w/o evolving infiltrates, VRE UTI (POA) - resolved; completed full course of Rx for this. Now with p mirabilis, use bactrim with renal dosing(50% dose reduction) Walker changed on 10/22/16 but I counseled patient that the walker should be removed, will consent to scheduled for straight cath's chronic thoracic/lumbar pain / chronic pain syndrome with acute worsening - acute worsening 2nd to new t-spine compression fracture. cont methadone 30mg TID, attempts to have brace not accepted by patient cymbalta 20mg daily; titrate to goal of 60mg/day over next few weeks voltaren gel qid lidoderm patches Anemia, normocytic likely of chronic disease, - iron studies c/w ACD. B12 low- normal acute kidney injury in setting of CKD stage 3 - DIONI resolved. acute/chronic diastolic CHF -resolbed, LE edema likely dependent edema dopplers neg for DVT. TSH normal. Albumin 2.9. compression elevation and continue lasix 20mg once daily. chronic steroid dependency for COPD - 5mg prednisone daily. Current Hospital Diet Patient's current hospital diet: Regular Diet Discharge Diet Recommended Diet: Regular Diet Pending Studies Studies pending at discharge: no Laboratory Results Lipid Panel Test 07/28/16 05:47 Range/Units Triglycerides Level 146 0-150 mg/dl Cholesterol Level 243 H 0-200 mg/dl HDL Cholesterol 73 mg/dl Cholesterol/HDL Ratio 3.3 LDL Cholesterol, Calculated 141 mg/dl Medical Emergencies . Who to Call and When: Medical Emergencies: If at any time you feel your situation is an emergency, please call 911 immediately. . Non-Emergent Contact Non-Emergency issues call your: Primary Care Provider Call Non-Emergent contact if: temperature is above 101, your pain is unusual for you . . "Provider Documentation" section prepared by Tomasz Altamirano. . Core Measure Problem Core Measures: None
[2016-10-25 07:33] VITALS: BP 119/79; PULSE 71; TEMP 36.4; O2SAT 97
[2016-10-25] MEDS: MEGESTROL ACETATE SUSP 400 MG/10 ML UDC PO SCH (08:00)
[2016-10-25] MEDS: SENNA 8.6 MG TAB PO SCH (08:00)
[2016-10-25] MEDS: DICLOFENAC SOD 1% GEL 100 GM TUBE EXT SCH ×4 (08:00→20:00)
[2016-10-25] MEDS: NYSTATIN POWDER 15GM BTL EXT SCH ×3 (09:11→20:53)
[2016-10-25] MEDS: TIOTROPIUM BROMIDE 5 PUFF/90 MCG INH INH SCH (09:12)
[2016-10-25] MEDS: IPRATROPIUM BROMIDE/ALBUTEROL respimat INH INH SCH ×4 (09:12→20:53)
[2016-10-25] MEDS: FLUTICASONE/SALMETEROL 250/50 (ADVAIR) 14 PUFF/1 INHALER INH SCH ×2 (09:12→20:53)
[2016-10-25] MEDS: FLUTICASONE PROPIONATE NA SPR 16 GM BTL NAE SCH ×2 (09:13→20:53)
[2016-10-25] MEDS: CALCITONIN SALMON NA 200 IU/AC 3.7 ML BTL NAE SCH (09:14)
[2016-10-25] MEDS: ALLOPURINOL 100 MG TAB PO SCH ×2 (09:16→20:55)
[2016-10-25] MEDS: CYANOCOBALAMIN 500 MCG TAB (VIT B-12) PO SCH (09:16)
[2016-10-25] MEDS: METHADONE HCL 10 MG TAB PO SCH ×3 (09:18→20:56)
[2016-10-25] MEDS: HYDROCODONE/ACETAMI 10/325 TAB PO PRN ×2 (09:18→21:03)
[2016-10-25] MEDS: CHOLECALCIFEROL 1000 INTER.UNIT TAB PO SCH (09:18)
[2016-10-25] MEDS: CARVEDILOL 25 MG TAB PO SCH ×2 (09:19→20:56)
[2016-10-25] MEDS: PANTOprazole SOD 40 MG TAB PO SCH ×2 (09:19→20:55)
[2016-10-25] MEDS: BACLOFEN 10 MG TAB PO SCH ×2 (09:20→20:57)
[2016-10-25] MEDS: MULTIVITAMIN TAB PO SCH (09:20)
[2016-10-25] MEDS: FUROSEMIDE 20 MG TAB PO SCH (09:20)
[2016-10-25] MEDS: DULOXETINE HCL 20 MG CAP PO SCH (09:20)
[2016-10-25] MEDS: LIDODERM (LIDOCAINE) PATCH 5% TD SCH (09:22)
[2016-10-25] MEDS: ERTAPENEM IV 1 GM in SODIUM CHLOR 0.9% AD-VAN 50ML 50 ML IV SCH (11:50)
--- NOTE | 2016-10-25 14:19 | Progress Note ---
Subjective Date of Service: October 25, 2016. Subjective After discussion with patient regarding discharge today, she requested to have her medicare security representative review her discharge as she contests it I asked what she wanted to gain from additional time in the hospital, she said to get stronger and feel more comfortable, she had been luke warm regarding participation in PT while hospitalized and refused orthotic splinting in the past I explained that she could have PT/OT there, and we will continue all therapy including oral antibiotic for current UTI, despite this she refused to go to stay here because she was not satisfied with the "standard of care" at [facility] and is more comfortable here Problem List Medical Problems: (1) Altered mental status Status: Acute (2) Anemia Status: Acute (3) Bilateral pneumonia Status: Acute (4) CHF (congestive heart failure) Status: Acute (5) Chronic Kidney Disease, Stage Iii (Moderate) Status: Chronic (6) COPD exacerbation Status: Acute (7) COPD exacerbation Status: Acute (8) Crystal arthritis Status: Chronic (9) Duodenal bulb ulcer Status: Chronic (10) Failure of outpatient treatment Status: Acute (11) Failure of outpatient treatment Status: Acute (12) Gout Status: Chronic (13) Hyperlipidemia Nec/Nos Status: Chronic (14) Hypertension Status: Chronic (15) Hypoxemia Status: Acute (16) Hypoxia Status: Acute (17) Hypoxia Status: Acute (18) Hypoxia Status: Acute (19) Hypoxia Status: Acute (20) Lumbar compression fracture Status: Chronic (21) Opiate use Status: Chronic (22) Osteoporosis Status: Chronic (23) Peripheral edema Status: Acute (24) Pneumonia Status: Acute (25) Pneumonia Status: Acute (26) Pneumonia involving right lung Status: Acute (27) Respiratory acidosis Status: Acute (28) Respiratory distress Status: Acute (29) Right renal artery stenosis Status: Chronic (30) Secondary hyperparathyroidism Status: Chronic (31) UTI (urinary tract infection) Status: Acute Review of Systems Constitutional: + fatigue, + weakness, No chills, No fever Respiratory: + dyspnea on exertion, + shortness of breath, No cough Cardiac: + edema, No chest pain, No orthopnea Abdomen: No nausea, No pain, No vomiting Female : No dysuria, No urinary frequency Neurologic: No memory loss, No paralysis Psychiatric: No anhedonism, No depression symptoms Objective Vital Signs Date Time Temp Pulse Resp B/P Pulse Ox O2 Delivery O2 Flow Rate FiO2 5/30/17 08:00 Nasal Cannula 4.0 10/25/16 07:33 36.4 71 16 119/79 97 Nasal Cannula 3.0 10/25/16 00:00 Nasal Cannula 4.0 10/24/16 23:05 36.4 70 20 120/76 93 Nasal Cannula 3.0 Humidified Oxygen 10/24/16 16:00 94 Nasal Cannula 4.0 Humidified Oxygen 10/24/16 14:53 36.6 68 20 111/67 94 Nasal Cannula 3.0 Humidified Oxygen Physical Exam General Appearance: WD/WN, + mild distress Eyes: PERRL, EOMI Neck: supple, no JVD Respiratory/Chest: chest non-tender, + decreased breath sounds Cardiovascular: regular rate, rhythm, + systolic murmur Abdomen: normal bowel sounds, non tender, soft Extremities: + pedal edema, + swelling Neurologic/Psychiatric: alert, oriented x 3 Assessment and Plan 71yo F with prolongued hospital stay, initially with respiratory failure from meds and hypoventilation, now with new concurrent UTI showing drug resistent p mirabilis. Pt was discharged 10/25 after discussing this 10/24, pt refused to leave and requested medicare review acute/chronic hypercarbic resp failure - acute component resolved. On chronic NC O2 (2 liters) and stable. ID new concurrent UTI, b/l pneumonia, gram negative vs aspiration vs other - resolved. CXR 10/22/16 w/o evolving infiltrates, VRE UTI (POA) - resolved; completed full course of Rx for this. Now with p mirabilis, use bactrim with renal dosing at discharge Walker changed on 10/22/16 but I counseled patient that the walker should be removed, will consent to scheduled for straight cath's once at nursing facility chronic thoracic/lumbar pain / chronic pain syndrome with acute worsening - acute worsening 2nd to new t-spine compression fracture. cont methadone 25mg TID attempts to have brace not accepted by patient cymbalta 20mg daily; titrate to goal of 60mg/day over next few weeks voltaren gel qid lidoderm patches Anemia, normocytic likely of chronic disease, - iron studies c/w ACD. B12 low- normal acute kidney injury in setting of CKD stage 3 - DIONI resolved. acute/chronic diastolic CHF -resolbed, LE edema likely dependent edema dopplers neg for DVT. TSH normal. Albumin 2.9. compression elevation and continue lasix 20mg once daily. chronic steroid dependency for COPD - 5mg prednisone daily. DVT proph - SCDs/heparin SC. Continued [facility] stay due to: multiple IV medications needed Discharge planning: long term facility
[2016-10-25 15:20] VITALS: BP 114/75; PULSE 68; TEMP 36.3; O2SAT 95
[2016-10-25] MEDS: SULFAMETHOXAZOLE/TRIMETHOPRIM 400/80MG TAB PO SCH (15:55)
[2016-10-25 16:00] VITALS: O2SAT 95
[2016-10-25] MEDS: LATANOPROST 0.005% OP SOLN 2.5 ML BTL OPR SCH (20:57)
[2016-10-26 00:10] VITALS: BP 111/69; PULSE 70; TEMP 36.5; O2SAT 94
[2016-10-26] MEDS: HEPARIN SOD 5000 UNIT/0.5 ML CARP SQ SCH (06:05)
[2016-10-26] MEDS: SUCRALFATE 1 GM/10 ML UDC PO SCH ×3 (06:05→16:30)
[2016-10-26 07:30] VITALS: BP 124/78; PULSE 69; TEMP 36.4; O2SAT 95
[2016-10-26 10:00] VITALS: BP 122/74; PULSE 79
[2016-10-26] MEDS: NYSTATIN POWDER 15GM BTL EXT SCH ×2 (10:00→14:53)
[2016-10-26] MEDS: IPRATROPIUM BROMIDE/ALBUTEROL respimat INH INH SCH ×2 (10:00→11:33)
[2016-10-26] MEDS: FLUTICASONE/SALMETEROL 250/50 (ADVAIR) 14 PUFF/1 INHALER INH SCH (10:00)
[2016-10-26] MEDS: TIOTROPIUM BROMIDE 5 PUFF/90 MCG INH INH SCH (10:01)
[2016-10-26] MEDS: FLUTICASONE PROPIONATE NA SPR 16 GM BTL NAE SCH (10:01)
[2016-10-26] MEDS: ALLOPURINOL 100 MG TAB PO SCH (10:02)
[2016-10-26] MEDS: CYANOCOBALAMIN 500 MCG TAB (VIT B-12) PO SCH (10:02)
[2016-10-26] MEDS: CALCITONIN SALMON NA 200 IU/AC 3.7 ML BTL NAE SCH (10:02)
[2016-10-26] MEDS: BACLOFEN 10 MG TAB PO SCH (10:02)
[2016-10-26] MEDS: LIDODERM (LIDOCAINE) PATCH 5% TD SCH (10:03)
[2016-10-26] MEDS: SENNA 8.6 MG TAB PO SCH ×2 (10:03→10:32)
[2016-10-26] MEDS: CARVEDILOL 25 MG TAB PO SCH (10:04)
[2016-10-26] MEDS: MEGESTROL ACETATE SUSP 400 MG/10 ML UDC PO SCH ×2 (10:04→10:32)
[2016-10-26] MEDS: PANTOprazole SOD 40 MG TAB PO SCH (10:04)
[2016-10-26] MEDS: DULOXETINE HCL 20 MG CAP PO SCH (10:05)
[2016-10-26] MEDS: CHOLECALCIFEROL 1000 INTER.UNIT TAB PO SCH (10:05)
[2016-10-26] MEDS: FUROSEMIDE 20 MG TAB PO SCH (10:05)
[2016-10-26] MEDS: MULTIVITAMIN TAB PO SCH (10:05)
[2016-10-26] MEDS: CHECK CLONIDINE PATCH PLACEMENT SCH ×2 (10:06→15:35)
[2016-10-26] MEDS: DICLOFENAC SOD 1% GEL 100 GM TUBE EXT SCH ×3 (10:06→11:33)
[2016-10-26] MEDS: SULFAMETHOXAZOLE/TRIMETHOPRIM 400/80MG TAB PO SCH (10:07)
[2016-10-26] MEDS: METHADONE HCL 10 MG TAB PO SCH ×2 (10:17→13:42)
[2016-10-26] MEDS: ERTAPENEM IV 1 GM in SODIUM CHLOR 0.9% AD-VAN 50ML 50 ML IV SCH (12:17)
[2016-10-26 15:06] VITALS: BP 122/74; PULSE 79; TEMP 36.4; O2SAT 95
[2016-10-26 15:21] VITALS: BP 131/79; PULSE 79; TEMP 36.3; O2SAT 94
[2016-10-26] MEDS: HYDROCODONE/ACETAMI 10/325 TAB PO PRN (15:27)
--- NOTE | 2016-10-26 18:17 | Progress Note ---
Progress Note Date of Service October 26, 2016. Progress Note Pt appealed discharge, this was overturned by medicare reviewer she remains stable with stable vitals and was returned to snf 10/26, walker in place to start straight cath regime once she arrives there
--- NOTE | 2016-10-28 10:16 | Discharge Summary ---
Discharge Summary Date of Service Oct 28, 2016. 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 ca Problems/Secondary Diagnoses: (1) Chronic Kidney Disease, Stage Iii (Moderate) Status: Chronic (2) Crystal arthritis Status: Chronic (3) Duodenal bulb ulcer Status: Chronic (4) Gout Status: Chronic (5) Hyperlipidemia Nec/Nos Status: Chronic (6) Hypertension Status: Chronic (7) Lumbar compression fracture Status: Chronic (8) Opiate use Status: Chronic (9) Osteoporosis Status: Chronic (10) Right renal artery stenosis Status: Chronic (11) Secondary hyperparathyroidism Status: Chronic Immunizations: Have You Had Influenza Vaccine: Yes Influenza Vaccine Date: Mar 01, 2013 History of Tetanus Vaccine?: Yes Tetanus Immunization Date: Dec 18, 2009 History of Pneumococcal: Yes Pneumococcal Date: Jun 01, 2012 History of Hepatitis B Vaccine: No Medication Reconciliation New Medications: Sulfa/Trimethoprim (Bactrim Ds 800MG/160MG) Tab 1 TAB PO BID, #9 TAB 1/2 tab twice a day unless can have 400/80 mg tablets supplied, if so dispense 9 additional days of this dose Furosemide (Furosemide) 20 Mg Tab 20 MG PO QAM, #60 TAB Hydralazine Hcl (Apresoline) 25 Mg Tab 25 MG PO TID, #90 TAB Nystatin (Nystop) 45 Appln/15 Gm Powd 1 APPLN EXT TID, #60 DOSE Temazepam (Temazepam) 7.5 Mg Cap 15 MG PO HS PRN for Insomnia, #60 CAP Continued Medications: Acetaminophen (Tylenol) 325 Mg Tab 650 MG PO Q6 PRN for Pain or Fever, TAB NEEDED FOR PAIN # 1- 10 OR TEMP > 101F. NTE 3GM APAP /24HRS. Allopurinol (Zyloprim) 100 Mg Tab 100 MG PO BID, TAB Baclofen (Lioresal) 10 Mg Tab 10 MG PO BID, TAB Bisacodyl (Dulcolax) 10 Mg Sup 1 SUPP WI, SUP GIVE ON DAY 4 NO B/M Calcitonin [place] (Calcitonin-[place]) 30 [place]/3.7 Ml Soln 1 SPRAY ERIC DAILY Carvedilol (Coreg) 25 Mg Tab 25 MG PO BID, TAB HOLD FOR APICAL HR <50 Cholecalciferol (D-1000) 1,000 Unit Tab 4000 UNITS PO DAILY Clonidine Hcl (Zhixwxki-Ott-0) 0.2 Mg/24 Hr Dis 2 PATCH TD WK APPLY TWO PATCHES EVERY MONDAY AT 1600. HOLD FOR SBP < 100 OR HR < 50 BPM. . REMOVE PER SCHEDULE. Dextrose (Diabetic Use) (Insta-Glucose) 77.4 % Gel 1 APPLN PO GIVE EVERY 15 MINUTES NEEDED FOR HYPOGLYCEMIA BLOOD GLUCOSE LESS THAN 60 AND/OR SYMPTOMATIC HYPOGLYCEMIA ( MUST BE RESPONSIVE AND ABLE TO SWALLOW) Diclofenac Sodium (Topical) (Voltaren 1% Top Gel) 1 % Gel 1 GM TD QID APPLY TO BACK 4 TIMES DAILY FOR PAIN. Duloxetine Hcl (Cymbalta) 20 Mg Cap 20 MG PO DAILY, CAP Epinephrine (Epipen) 0.3 Mg/0.3 Ml Inj 0.3 MG IM UD PRN for ALLERGIC REACTION Ergocalciferol (Drisdol) 50,000 Unit Cap 09843 INTER.UNIT PO WEEKLY MONDAY Ferrous Sulfate (Kp Ferrous Sulfate) 325 Mg Tab 325 MG PO DAILY Fluticasone Prop/Salmeterol (Advair Diskus 250/50 60 Dose) 1 Ea Aerp 1 PUFFS INH BID, INHALER Fluticasone Propionate (Nasal) (Flonase Allergy Relief Ch) 50 Mcg/Act Spr 1 SPRAY ERIC BID Glucagon (Glucagon Emergency Kit) 1 Mg Kit 1 APPLN IM EVERY 15 MINS NEEDED FOR HYPOGLYCEMIA BLOOD GLUCOSE < 50 AND OR SYMPTOMATIC/UNRESPONSIVE HYPOGLYCEMIA. MAY REPEAT IN 15 MINS IF NEEDED Ipratropium-Albuterol (Duoneb) 3 Ml Nebu 1 TREATMENT INH Q4H PRN for WH, INHA Ipratropium-Albuterol (Combivent Respimat) 1 Aer Aer 1 PUFFS INH QID, INH Latanoprost (Latanoprost) 37 Drops/2.5 Ml Soln 1 DROP OPR HS Lidocaine (Lidoderm Patch 5%) 1 Ea Tdsy 1 PATCH TD DAILY Magnesium Hydroxide (Milk of Magnesia) 30 Ml Susp 30 ML PO UD PRN for Constipation NEEDED FOR NO B/M FOR 9 SHIFTS Megestrol Acetate (Megace) 40 Mg Tab 40 MG PO QAM, TAB Methadone Hcl (Dolophine) 10 Mg Tab 30 MG PO TID, TAB Multivitamin (Multivitamin) Tab 1 TAB PO DAILY, TAB Pantoprazole (Protonix) 40 Mg Tab 40 MG PO BID, TAB Polyethylene Glycol 3350 (Miralax) 1 Pow Pow 17 GM PO BID Potassium Chloride (Micro-K Ext Rel) 10 Meq Capcr 10 MEQ PO DAILY, CAP Prednisone (Prednisone) 5 Mg Tab 5 MG PO DAILY, TAB Sennosides (Senokot) 8.6 Mg Tab 1 TAB PO QAM, TAB Sodium Phosphates (Fleet Enema Six Pack) 1 Lisa Lisa 1 APPL RE GIVE 4 HOURS AFTER DULCOLAX SUPP. IF NOT EFFECTIVE Sucralfate (Carafate) 1 Gm/10 Ml Qi 1 GM PO ACHS, ML Tiotropium [place] (Spiriva Handihaler) 30 Puff/540 Mcg Aerp 1 CAP INH DAILY, INHALER Discontinued Medications: Amlodipine (Norvasc) 5 Mg Tab 10 MG PO DAILY, TAB HOLD FOR APICAL HR <50 Guaifenesin Ext Rel (Mucinex Ext Rel) 600 Mg Tab 600 MG PO BID, TAB Hydralazine Hcl (Apresoline) 50 Mg Tab 75 MG PO TID, TAB HOLD IF SYSTOLIC BP IS < 100 AND OR HR IS <50 Hydromorphone Hcl (Dilaudid) 2 Mg Tab 6 MG PO Q4H PRN for PAIN # 6-10, TAB Hydromorphone Hcl (Dilaudid) 4 Mg Tab 4 MG PO Q4H, TAB Lorazepam (Ativan) 0.5 Mg Tab 0.5 MG PO TID, TAB NTE 2GM/24HRS Lorazepam (Ativan) 1 Mg Tab 0.5 MG PO Q6H PRN for Anxiety, TAB NEEDED FOR ANXIETY, AGITATION, OR RESTLESSNESS NOT TO EXCEED 2GRAMS/24 HOURS Zolpidem Tartrate (Zolpidem Tartrate) 5 Mg Tab 5 MG PO HS PRN for INSOMNIA, TAB Discharge Exam Review of Systems: Constitutional: No fever, No chills, No sweats, No weight loss Genitourinary - Female: No dysuria, No hematuria Psychiatric: + depression symptoms, + anxiety Physical Exam: General Appearance: WD/WN, no apparent distress Neck: supple, trachea midline Neurologic/Psychiatric: alert, oriented x 3 Hospital Course 71yo F with prolongued hospital stay, initially with respiratory failure from meds and hypoventilation, now with new concurrent UTI showing drug resistent p mirabilis. Pt was discharged 10/25 after discussing this 10/24, pt refused to leave and requested medicare review acute/chronic hypercarbic resp failure - acute component resolved. On chronic NC O2 (2 liters) and stable. ID new concurrent UTI, b/l pneumonia, gram negative vs aspiration vs other - resolved. CXR 10/22/16 w/o evolving infiltrates, VRE UTI (POA) - resolved; completed full course of Rx for this. Now with p mirabilis, use bactrim with renal dosing at discharge Walker changed on 10/22/16 but I counseled patient that the walker should be removed, will consent to scheduled for straight cath's once at nursing facility chronic thoracic/lumbar pain / chronic pain syndrome with acute worsening - acute worsening 2nd to new t-spine compression fracture. cont methadone 25mg TID attempts to have brace not accepted by patient cymbalta 20mg daily; titrate to goal of 60mg/day over next few weeks voltaren gel qid lidoderm patches Anemia, normocytic likely of chronic disease, - iron studies c/w ACD. B12 low- normal acute kidney injury in setting of CKD stage 3 - DIONI resolved. acute/chronic diastolic CHF -resolbed, LE edema likely dependent edema dopplers neg for DVT. TSH normal. Albumin 2.9. compression elevation and continue lasix 20mg once daily. chronic steroid dependency for COPD - 5mg prednisone daily. DVT proph - SCDs/heparin SC. Total Time Spent: Greater than 30 minutes This includes examination of the patient, discharge planning, medication reconciliation, and communication with other providers. Discharge Instructions Please refer to the electronic Patient Visit Report (Discharge Instructions) for additional information.
== END 2016-10-26 16:45 | DRG 987 ==
LOC: ENRESERVTM → ENRESERVDT → EDBD 18:55 → C.EDC 18:56 → C.MS4W 23:06 → EDBEDREQSVC 10-09 19:34 → C.MSICU 10-09 19:40 → C.2E 10-12 13:43 → C.MS4W 10-19 14:22
PROVIDERS: ADMIT Hospitalist; ATTEND Internal Medicine
PROC: 0B9F8ZX Drainage of Right Lower Lung Lobe, Via Natural or Artificial Opening Endoscopic, Diagnostic (ICD-10-PCS; principal; 2016-10-09)
PROC: 0B9J8ZX Drainage of Left Lower Lung Lobe, Via Natural or Artificial Opening Endoscopic, Diagnostic (ICD-10-PCS; principal; 2016-10-09)
PROC: 5A1945Z Respiratory Ventilation, 24-96 Consecutive Hours (ICD-10-PCS; 2016-10-09)
PROC: 4A133B1 Monitoring of Arterial Pressure, Peripheral, Percutaneous Approach (ICD-10-PCS; 2016-10-09)
PROC: 0CHY7BZ Insertion of Airway into Mouth and Throat, Via Natural or Artificial Opening (ICD-10-PCS; 2016-10-09)
PROC: 05HM33Z Insertion of Infusion Device into Right Internal Jugular Vein, Percutaneous Approach (ICD-10-PCS; 2016-10-09)
DX: T40.601A Poisoning by unspecified narcotics, accidental (unintentional), initial encounter (principal); G92 Toxic encephalopathy; J18.9 Pneumonia, unspecified organism; J96.22 Acute and chronic respiratory failure with hypercapnia; J96.21 Acute and chronic respiratory failure with hypoxia; I50.33 Acute on chronic diastolic (congestive) heart failure; B37.0 Candidal stomatitis; N39.0 Urinary tract infection, site not specified; F11.20 Opioid dependence, uncomplicated; N17.9 Acute kidney failure, unspecified; M48.54XA Collapsed vertebra, not elsewhere classified, thoracic region, initial encounter for fracture; B95.2 Enterococcus as the cause of diseases classified elsewhere; N18.3 Chronic kidney disease, stage 3 (moderate); M10.9 Gout, unspecified; Z79.52 Long term (current) use of systemic steroids; Z79.899 Other long term (current) drug therapy; R04.0 Epistaxis; B96.4 Proteus (mirabilis) (morganii) as the cause of diseases classified elsewhere; E78.5 Hyperlipidemia, unspecified; D63.8 Anemia in other chronic diseases classified elsewhere; E16.2 Hypoglycemia, unspecified; G89.4 Chronic pain syndrome

== ENCOUNTER → 2016-10-04 | Outpatient (CLI) | payer OTHER, MEDICARE ==
[2016-10-04 11:05] LABS: BASO % 0.2 %; BASO ABS # 0.02 K/uL (0-0.2); COMPLETE YES; EOS % 0.7 %; HEMATOCRIT 39.3 % (37-47); IG% 0.7 %; LYMPH % 11.2 %; LYMPH ABS # 1.37 K/uL (1.2-3.4); MEAN CELL VOLUME 89.7 fL (80-100); MEAN CORPUSCULAR HEMOGLOBIN 28.3 pg (25-34); MEAN CORPUSCULAR HGB CONC 31.6 g/dl (32-36); MEAN PLATELET VOLUME 11.4 fL (7.4-10.4); MONO % 12.1 %; NEUT % 75.1 %; PLATELET COUNT 272 K/uL (130-400); RED BLOOD COUNT 4.38 M/uL (4.2-5.4); WHITE BLOOD COUNT 12.23 K/uL (4.8-10.8)
[2016-10-04 11:17] LABS: ALT/SGPT 30 U/L (12-78); AST/SGOT 25 U/L (15-37); BLOOD UREA NITROGEN 24 mg/dl (7-18); CALCIUM 10.3 mg/dl (8.5-10.1); CARBON DIOXIDE 30 mmol/L (21-32); CHLORIDE 106 mmol/L (98-107); GLUCOSE 73 mg/dl (70-99); SODIUM 143 mmol/L (136-145)
[2016-10-04 11:20] LABS: ALB/GLOB RATIO 0.9 (0.9-2); ALKALINE PHOSPHATASE 163 U/L (45-117)
== END ==
LOC: C.LABUPBEA 10:46
PROVIDERS: ATTEND Nurse Practitioner Family
DX: J96.91 Respiratory failure, unspecified with hypoxia (principal)

== ENCOUNTER → 2016-10-04 | Outpatient (CLI) | payer OTHER, MEDICARE ==
[2016-10-04 13:55] LABS: URINE APPEARANCE CLEAR (CLEAR); URINE BILIRUBIN NEG (NEG); URINE COLOR YELLOW; URINE NITRITE NEG (NEG); URINE PH 7.5 (4.5-7.5); URINE SPECIFIC GRAVITY 1.017 (1.000-1.030); UROBILINOGEN NEG (NEG)
[2016-10-04 14:04] LABS: MANUAL MICROSCOPIC REQUIRED? NO; REVIEW REQ? NO; SULFASALICYLIC ACID NEG (NEG)
== END ==
LOC: C.LABUPBEA 13:40
PROVIDERS: ATTEND Nurse Practitioner Family
DX: R30.0 Dysuria (principal)

== ENCOUNTER → 2016-11-01 | Outpatient (CLI) | payer OTHER ==
[~2016-11-01] MED LIST changes: -AMLO-110 PO; +APR25 PO; -ATV/1 PO; +CLON0.2D4 TD; +CLON0.3D4 TD; -CTPTP2 TD; +CYM/30 PO; +DICL1GEL12 TD; +DULO-24 PO; -ETOMIDATE 2 MG/ML 20 ML VIAL IV ONE; -FENTANYL CITRATE INJ 50 MCG/1 ML 2 ML VIAL IV ONE; -GUAI1TAB55 PO; -HYDR-4717 PO; -HYDR2TAB3 PO; -LDDP5 TD; -LORA-741 PO; +LSX20 PO; -MCLIN; +MCLIN NAE; +MELATAB2 PO; +MGC40 PO; -MIDAZOLAM HCL 5 MG/ML 2ML VIAL IV ONE; +NF656 TD; +NYSP EXT; -NYSS5 PO; +ONDA4TAB10 SL; +PLV75 PO; +POTA10CA28 PO; -PRD/1 PO; +PRED-301 PO; -PRED10TA PO; -RST15 PO; +RST75 PO; +SACC250C3 PO; -SENN-61 PO; +SENN-63 PO; -SUCCINYLCHOLINE CHLORIDE 20 MG/ML 10 ML VIAL IV ONE; +SULF800T23 PO; -VLTG EXT
[2016-11-01 09:59] LABS: BLOOD UREA NITROGEN 20 mg/dl (7-18); CALCIUM 8.9 mg/dl (8.5-10.1); CARBON DIOXIDE 34 mmol/L (21-32); CHLORIDE 105 mmol/L (98-107); GLUCOSE 73 mg/dl (70-99); POTASSIUM 3.7 mmol/L (3.5-5.1); SODIUM 147 mmol/L (136-145)
== END | disposition home or self-care (01) ==
LOC: C.LABUPBEA 09:18
PROVIDERS: ATTEND Family Medicine
DX: N18.3 Chronic kidney disease, stage 3 (moderate) (principal)

== ENCOUNTER → 2016-11-04 | Outpatient (CLI) | payer OTHER ==
[2016-11-04 09:19] LABS: BLOOD UREA NITROGEN 19 mg/dl (7-18); BUN/CREATININE RATIO 11.4 (10-20); CARBON DIOXIDE 34 mmol/L (21-32); CHLORIDE 102 mmol/L (98-107); GLUCOSE 60 mg/dl (70-99); POTASSIUM 3.5 mmol/L (3.5-5.1); SODIUM 144 mmol/L (136-145)
[2016-11-04 09:32] LABS: CALCIUM 9.2 mg/dl (8.5-10.1)
== END ==
LOC: C.LABUPBEA 08:46
PROVIDERS: ATTEND Family Medicine
DX: N18.3 Chronic kidney disease, stage 3 (moderate) (principal)

== ENCOUNTER → 2016-11-07 | Outpatient (CLI) | payer OTHER ==
[2016-11-07 11:26] LABS: URINE APPEARANCE CLEAR (CLEAR); URINE BILIRUBIN NEG (NEG); URINE COLOR YELLOW; URINE NITRITE NEG (NEG); URINE SPECIFIC GRAVITY 1.018 (1.000-1.030); UROBILINOGEN NEG (NEG); ZZURINE CULT IF INDIC CATH YES
[2016-11-07 11:35] LABS: MANUAL MICROSCOPIC REQUIRED? NO; REVIEW REQ? YES
[2016-11-07 12:18] LABS: URINE MUCUS PRESENT (NONE PRSENT)
== END | disposition home or self-care (01) ==
LOC: C.LABUPBEA 09:03
PROVIDERS: ATTEND Family Medicine
DX: B95.2 Enterococcus as the cause of diseases classified elsewhere (principal)

== ENCOUNTER → 2016-11-11 | Outpatient (CLI) | payer OTHER ==
[~2016-11-11] MED LIST changes: -CLON0.3D4 TD; -PLV75 PO
[2016-11-11 10:27] LABS: BLOOD UREA NITROGEN 21 mg/dl (7-18); BUN/CREATININE RATIO 15.2 (10-20); CARBON DIOXIDE 30 mmol/L (21-32); CHLORIDE 104 mmol/L (98-107); GLUCOSE 62 mg/dl (70-99); POTASSIUM 3.6 mmol/L (3.5-5.1); SODIUM 142 mmol/L (136-145)
[2016-11-11 11:30] LABS: CALCIUM 9.5 mg/dl (8.5-10.1)
== END ==
LOC: C.LABUPBEA 09:09
PROVIDERS: ATTEND Nurse Practitioner Family
DX: R60.1 Generalized edema (principal)

== ENCOUNTER → 2016-11-14 | Outpatient (CLI) | payer OTHER ==
[~2016-11-14] MED LIST changes: +CLON0.3D4 TD; +PLV75 PO
[2016-11-14 10:11] LABS: BASO % 0.5 %; BASO ABS # 0.04 K/uL (0-0.2); COMPLETE YES; EOS % 1.5 %; HEMATOCRIT 33.7 % (37-47); IG% 0.8 %; LYMPH % 18.9 %; LYMPH ABS # 1.64 K/uL (1.2-3.4); MEAN CELL VOLUME 92.8 fL (80-100); MEAN CORPUSCULAR HEMOGLOBIN 28.7 pg (25-34); MEAN CORPUSCULAR HGB CONC 30.9 g/dl (32-36); MEAN PLATELET VOLUME 12.5 fL (7.4-10.4); MONO % 14.7 %; NEUT % 63.6 %; PLATELET COUNT 162 K/uL (130-400); RED BLOOD COUNT 3.63 M/uL (4.2-5.4); WHITE BLOOD COUNT 8.66 K/uL (4.8-10.8)
[2016-11-14 10:21] LABS: BLOOD UREA NITROGEN 20 mg/dl (7-18); CALCIUM 8.6 mg/dl (8.5-10.1); CARBON DIOXIDE 35 mmol/L (21-32); CHLORIDE 103 mmol/L (98-107); GLUCOSE 68 mg/dl (70-99); POTASSIUM 3.1 mmol/L (3.5-5.1); SODIUM 143 mmol/L (136-145)
== END ==
LOC: C.LABUPBEA 09:17
PROVIDERS: ATTEND Nurse Practitioner Family
DX: M62.81 Muscle weakness (generalized) (principal); R60.1 Generalized edema; D50.9 Iron deficiency anemia, unspecified

== ENCOUNTER → 2016-11-16 | Outpatient (CLI) | payer OTHER ==
[~2016-11-16] MED LIST changes: -CLON0.3D4 TD; -PLV75 PO
--- NOTE | 2016-12-20 06:41 | CODING QUERY MEDICAL NECESSITY ---
CQSUPPORTING DIAGNOSIS NEEDED A supporting diagnosis is required for the test/procedure performed on this patient in order for us to be reimbursed by the patient's insurance. Please provide a supporting diagnosis for the following test/procedure listed below next to the test name along with your signature. *If there is no additional diagnosis for this patient that would support the following test/procedure please document that below next to the test/procedure. Test(s)/Procedure(s) that require a supporting diagnosis: DOS 11/16/16 VITAMIN D TEST Provider Signature: Date: Thank you Ayse Valente Health Information Management Once completed, please kindly fax back to [phone] For questions please call [phone]
== END ==
LOC: C.LABUPBEA 08:19
PROVIDERS: ATTEND Family Medicine
DX: R26.89 Other abnormalities of gait and mobility (principal)

== ENCOUNTER → 2016-11-18 | Outpatient (CLI) | payer OTHER ==
[2016-11-18 10:49] LABS: BLOOD UREA NITROGEN 25 mg/dl (7-18); BUN/CREATININE RATIO 19.5 (10-20); CARBON DIOXIDE 31 mmol/L (21-32); CHLORIDE 103 mmol/L (98-107); GLUCOSE 71 mg/dl (70-99); POTASSIUM 3.3 mmol/L (3.5-5.1); SODIUM 141 mmol/L (136-145)
== END ==
LOC: C.LABUPBEA 09:12
PROVIDERS: ATTEND Nurse Practitioner Family
DX: R60.1 Generalized edema (principal)

== ENCOUNTER → 2016-11-25 | Outpatient (CLI) | payer OTHER | LOC: C.LABUPBEA 08:22 | PROVIDERS: ATTEND Nurse Practitioner Family | DX: E87.6 Hypokalemia (principal) ==

== ENCOUNTER → 2016-11-28 | Outpatient (CLI) | payer OTHER ==
[2016-11-28 09:30] LABS: BLOOD UREA NITROGEN 18 mg/dl (7-18); BUN/CREATININE RATIO 13.7 (10-20); CALCIUM 9.1 mg/dl (8.5-10.1); CARBON DIOXIDE 32 mmol/L (21-32); CHLORIDE 104 mmol/L (98-107); GLUCOSE 65 mg/dl (70-99); POTASSIUM 3.6 mmol/L (3.5-5.1); SODIUM 143 mmol/L (136-145)
== END ==
LOC: C.LABUPBEA 09:09
PROVIDERS: ATTEND Family Medicine
DX: R60.1 Generalized edema (principal)

== ENCOUNTER → 2016-12-01 | Outpatient (CLI) | payer OTHER ==
[2016-12-01 08:31] LABS: BLOOD UREA NITROGEN 19 mg/dl (7-18); BUN/CREATININE RATIO 15.7 (10-20); CALCIUM 9.2 mg/dl (8.5-10.1); CARBON DIOXIDE 34 mmol/L (21-32); CHLORIDE 103 mmol/L (98-107); GLUCOSE 81 mg/dl (70-99); POTASSIUM 3.2 mmol/L (3.5-5.1); SODIUM 143 mmol/L (136-145)
== END | disposition home or self-care (01) ==
LOC: C.LABUPBEA 08:02
PROVIDERS: ATTEND Family Medicine
DX: R60.1 Generalized edema (principal)

== ENCOUNTER → 2016-12-05 | Outpatient (CLI) | payer OTHER ==
[2016-12-05 10:05] LABS: BLOOD UREA NITROGEN 23 mg/dl (7-18); BUN/CREATININE RATIO 17.3 (10-20); CALCIUM 9.3 mg/dl (8.5-10.1); CARBON DIOXIDE 30 mmol/L (21-32); CHLORIDE 104 mmol/L (98-107); GLUCOSE 66 mg/dl (70-99); POTASSIUM 3.5 mmol/L (3.5-5.1); SODIUM 140 mmol/L (136-145)
== END | disposition home or self-care (01) ==
LOC: C.LABUPBEA 08:55
PROVIDERS: ATTEND Family Medicine
DX: I50.9 Heart failure, unspecified (principal); E08.22 Diabetes mellitus due to underlying condition with diabetic chronic kidney disease; N18.3 Chronic kidney disease, stage 3 (moderate)

== ENCOUNTER → 2016-12-06 | Outpatient (CLI) | payer OTHER | LOC: C.LABUPBEA 09:24 | PROVIDERS: ATTEND Nurse Practitioner Family | DX: E08.8 Diabetes mellitus due to underlying condition with unspecified complications (principal) ==

== ENCOUNTER → 2016-12-12 | Outpatient (CLI) | payer OTHER | LOC: C.LABUPBEA 08:50 | PROVIDERS: ATTEND Family Medicine | DX: I50.9 Heart failure, unspecified (principal) ==

== ENCOUNTER → 2017-01-02 | Outpatient (CLI) | payer OTHER ==
[2017-01-02 10:39] LABS: BLOOD UREA NITROGEN 17 mg/dl (7-18); BUN/CREATININE RATIO 14.3 (10-20); CALCIUM 8.8 mg/dl (8.5-10.1); CARBON DIOXIDE 33 mmol/L (21-32); CHLORIDE 106 mmol/L (98-107); GLUCOSE 76 mg/dl (70-99); POTASSIUM 4.1 mmol/L (3.5-5.1); SODIUM 143 mmol/L (136-145)
== END ==
LOC: C.LABUPBEA 10:04
PROVIDERS: ATTEND Nurse Practitioner Family
DX: N18.3 Chronic kidney disease, stage 3 (moderate) (principal)

== ENCOUNTER → 2017-01-09 | Outpatient (CLI) | payer OTHER ==
[2017-01-09 09:01] LABS: BLOOD UREA NITROGEN 24 mg/dl (7-18); BUN/CREATININE RATIO 18.5 (10-20); CALCIUM 8.7 mg/dl (8.5-10.1); CARBON DIOXIDE 34 mmol/L (21-32); CHLORIDE 104 mmol/L (98-107); GLUCOSE 74 mg/dl (70-99); POTASSIUM 3.6 mmol/L (3.5-5.1); SODIUM 143 mmol/L (136-145)
== END | disposition home or self-care (01) ==
LOC: C.LABUPBEA 08:44
PROVIDERS: ATTEND Nurse Practitioner Family
DX: R60.1 Generalized edema (principal)

== ENCOUNTER → 2017-02-17 | Outpatient (CLI) | payer OTHER ==
[~2017-02-17] MED LIST changes: +CLON0.3D4 TD; +PLV75 PO
[2017-02-17 09:19] LABS: BASO % 0.1 %; BASO ABS # 0.02 K/uL (0-0.2); COMPLETE YES; HEMATOCRIT 38.1 % (37-47); IG% 0.9 %; LYMPH % 8.3 %; LYMPH ABS # 1.34 K/uL (1.2-3.4); MEAN CELL VOLUME 91.6 fL (80-100); MEAN CORPUSCULAR HEMOGLOBIN 27.2 pg (25-34); MEAN CORPUSCULAR HGB CONC 29.7 g/dl (32-36); MEAN PLATELET VOLUME 13.2 fL (7.4-10.4); MONO % 10.3 %; NEUT % 79.4 %; PLATELET COUNT 175 K/uL (130-400); RED BLOOD COUNT 4.16 M/uL (4.2-5.4); WHITE BLOOD COUNT 16.09 K/uL (4.8-10.8)
[2017-02-17 09:29] LABS: ALT/SGPT 13 U/L (12-78); AST/SGOT 17 U/L (15-37); BLOOD UREA NITROGEN 21 mg/dl (7-18); BUN/CREATININE RATIO 21.4 (10-20); CALCIUM 8.7 mg/dl (8.5-10.1); CARBON DIOXIDE 35 mmol/L (21-32); CHLORIDE 100 mmol/L (98-107); GLUCOSE 74 mg/dl (70-99); POTASSIUM 3.3 mmol/L (3.5-5.1); SODIUM 141 mmol/L (136-145)
[2017-02-17 09:32] LABS: ALB/GLOB RATIO 0.8 (0.9-2); ALKALINE PHOSPHATASE 92 U/L (45-117)
== END ==
LOC: C.LABUPBEA 08:29
PROVIDERS: ATTEND Nurse Practitioner Family
DX: J96.91 Respiratory failure, unspecified with hypoxia (principal); C81.90 Hodgkin lymphoma, unspecified, unspecified site

== ENCOUNTER → 2017-02-18 | Outpatient (CLI) | payer OTHER ==
[2017-02-18 07:15] LABS: HEMATOCRIT 36.6 % (37-47); MEAN CELL VOLUME 89.9 fL (80-100); MEAN CORPUSCULAR HEMOGLOBIN 27.8 pg (25-34); MEAN CORPUSCULAR HGB CONC 30.9 g/dl (32-36); MEAN PLATELET VOLUME 12.6 fL (7.4-10.4); PLATELET COUNT 167 K/uL (130-400); RED BLOOD COUNT 4.07 M/uL (4.2-5.4); WHITE BLOOD COUNT 14.68 K/uL (4.8-10.8)
== END ==
LOC: C.LABUPBEA 09:11
PROVIDERS: ATTEND Nurse Practitioner Family
DX: C81.90 Hodgkin lymphoma, unspecified, unspecified site (principal)

== ENCOUNTER → 2017-02-21 | Outpatient (CLI) | payer OTHER ==
--- NOTE | 2017-02-21 12:34 | DIAGNOSTIC IMAGING REPORT ---
CHEST 2 VIEWS ROUTINE CLINICAL HISTORY: J47.9 [id number] COMPARISON STUDY: 10/22/2016 FINDINGS: Moderate stable cardiomegaly. Small fixed lateral hernia. Chronic colonic atelectasis at both lung bases. Several old left-sided rib fractures. Upper lungs are clear. Postoperative changes to the left humerus with multiple kyphoplasty is a thoracolumbar spine. IMPRESSION: Chronic and postoperative change. No acute process. The above report was generated using voice recognition software. It may contain grammatical, syntax or spelling errors. Electronically signed by: Klever June M.D. 02/21/2017 12:33 PM Dictated Date/Time: 02/21/2017 12:30 PM
== END | disposition home or self-care (01) ==
LOC: C.RAD1850 12:04
PROVIDERS: ATTEND Physician Assistant
DX: J47.9 Bronchiectasis, uncomplicated (principal); R06.00 Dyspnea, unspecified

== ENCOUNTER 2017-02-28 16:20 | Inpatient (IN) | payer OTHER ==
[~2017-02-28] VITALS: Ht 149.9 cm; Wt 55.3 kg
[~2017-02-28 16:20] MED LIST changes: -CYM/30 PO; -MELATAB2 PO; -ONDA4TAB10 SL; -SACC250C3 PO
[2017-02-28] MEDS ORDERED: CEFTRIAXONE SOD INJ 1 GM ADDVIAL IV STA (16:43)
[2017-02-28] MEDS ORDERED: ONDANSETRON INJ 2 MG/ML 2 ML VIAL IV STA (16:43)
[2017-02-28] MEDS ORDERED: SODIUM CHLORIDE 0.9% 1000ML 1,000 ML IV STA (16:43)
[2017-02-28] MEDS ORDERED: CYM/30 PO (17:08)
[2017-02-28] MEDS ORDERED: MELATAB2 PO (17:08)
[2017-02-28] MEDS ORDERED: SACC250C3 PO (17:08)
[2017-02-28] MEDS ORDERED: ONDA4TAB10 SL (17:19)
[2017-02-28 17:31] LABS: URINE APPEARANCE CLOUDY (CLEAR); URINE BILIRUBIN NEG (NEG); URINE COLOR DK YELLOW; URINE EPITHELIAL CELL AUTO >30 /lpf (0-5); URINE NITRITE NEG (NEG); URINE SPECIFIC GRAVITY 1.019 (1.000-1.030); UROBILINOGEN NEG (NEG); ZZURINE CULT IF INDIC CATH YES
--- NOTE | 2017-02-28 17:38 | DIAGNOSTIC IMAGING REPORT ---
SINGLE VIEW CHEST CLINICAL HISTORY: Generalized abdominal pain. Nausea and vomiting. FINDINGS: An AP, portable, upright chest radiograph is compared to study dated 02/21/2017. Correlation is made with chest CT dated 07/22/2016. The examination is significantly degraded by portable technique and patient rotation. The heart is enlarged and there is atherosclerotic calcification of the thoracic aorta. The pulmonary vasculature is noncongested. There are low lung volumes and chronic interstitial thickening. No airspace consolidation or large pleural effusion is identified. Linear atelectasis versus scarring is again noted in the right lung. No pneumothorax is identified. The skeletal structures are osteopenic. Thoracic and lumbar compression deformities are identified with evidence of previous multilevel vertebroplasty. Postoperative change and chronic posttraumatic deformity are seen in the left humerus. There are numerous healed bilateral rib fractures. IMPRESSION: Cardiomegaly and low lung volumes with no acute cardiopulmonary abnormality. Electronically signed by: Tej Bernard M.D. 02/28/2017 5:36 PM Dictated Date/Time: 02/28/2017 5:35 PM
[2017-02-28 17:41] LABS: MANUAL MICROSCOPIC REQUIRED? NO; REVIEW REQ? YES
[2017-02-28 18:40] LABS: INR 1.1 (0.9-1.1); PROTHROMBIN TIME (PATIENT) 12.2 SECONDS (9.0-12.0)
[2017-02-28 18:49] LABS: HEMATOCRIT 46.2 % (37-47); MEAN CELL VOLUME 88.3 fL (80-100); MEAN CORPUSCULAR HEMOGLOBIN 28.1 pg (25-34); MEAN CORPUSCULAR HGB CONC 31.8 g/dl (32-36); MEAN PLATELET VOLUME 12.7 fL (7.4-10.4); PLATELET COUNT 242 K/uL (130-400); RED BLOOD COUNT 5.23 M/uL (4.2-5.4); WHITE BLOOD COUNT 30.79 K/uL (4.8-10.8)
[2017-02-28 18:50] LABS: BUN/CREATININE RATIO 20.9 (10-20); CALCIUM 8.7 mg/dl (8.5-10.1); CREATININE 1.8 mg/dl (0.60-1.20); POTASSIUM 3.7 mmol/L (3.5-5.1)
[2017-02-28 19:13] LABS: BASO % 0.1 %; BASO ABS # 0.04 K/uL (0-0.2); COMPLETE YES; IG% 1.3 %; LYMPH % 4.6 %; LYMPH ABS # 1.41 K/uL (1.2-3.4); MONO % 6.9 %; NEUT % 87.1 %
--- NOTE | 2017-02-28 19:45 | DIAGNOSTIC IMAGING REPORT ---
CT SCAN OF THE ABDOMEN AND PELVIS WITHOUT IV CONTRAST CLINICAL HISTORY: Generalized abdominal pain. COMPARISON STUDY: Abdominal CT dated 03/28/2016. TECHNIQUE: CT scan of the abdomen and pelvis is performed from the lung bases to the proximal femora. Images are reviewed in the axial, sagittal, and coronal planes. IV contrast was not administered for this examination as per the referring clinician. Note that the examination was performed in significantly suboptimal fashion without oral and IV contrast. The examination is also degraded by streak artifact from the patient's arms which could not be elevated above the abdomen and motion. A dose lowering technique was utilized adhering to the principles of ALARA. CT DOSE: 516.04 mGycm FINDINGS: Lung bases: The heart is mildly enlarged and without pericardial effusion. The coronary arteries are densely calcified. Segmental atelectasis is present at both lung bases. No airspace consolidation is seen typical for pneumonia and there is no pleural effusion. Liver: Evaluation of the liver is degraded by streak artifact. The unenhanced liver is normal in size, contour, and attenuation. There is no intrahepatic biliary ductal dilatation. Gallbladder: Mildly distended and grossly unremarkable. Spleen: Normal in size and attenuation. Pancreas: The unenhanced pancreas is moderately atrophic and grossly unremarkable. Adrenal glands: Unremarkable. Kidneys: The unenhanced kidneys are atrophic and without hydronephrosis. There are no renal calculi identified. There is no evidence of contour deforming renal mass lesion. Abdominal vasculature: The abdominal aorta is normal in course and caliber noting advanced atherosclerotic calcification. A stent is present in the right renal artery. Bowel: There is no bowel obstruction. There is laxity of the ventral abdominal wall. A small ventral hernia contains a nonobstructed segment of small bowel. There is mild colonic diverticulosis without CT evidence of acute diverticulitis. There is mild wall thickening versus underdistention of the descending colon. The appendix is well-visualized and normal. Peritoneum: There is trace perihepatic free fluid. Trace fluid is also seen in the pelvis. No peritoneal free air is seen. Lymphadenopathy: There are enlarged left external iliac chain lymph nodes. The largest is seen on image #249 an measures 1.8 x 1.2 cm. Pelvic viscera: Small foci of gas are seen in the bladder lumen. The bladder is otherwise normal as imaged, as are the uterus and adnexa. There is nonspecific presacral induration. This is new from previous. Skeletal structures: The skeletal structures are osteopenic. Postoperative change is partially imaged in the left humerus. There are compression deformities identified at all imaged lower thoracic and lumbar levels with evidence of previous multilevel vertebroplasty. There are numerous healed bilateral rib fractures. Postoperative change is present in both femora. There are healed left pubic ring fractures. No lytic or blastic lesions are seen. IMPRESSION: 1. Significantly suboptimal examination without oral and IV contrast. The examination is also degraded by streak and motion artifact. 2. There is trace perihepatic free fluid as well as a small volume of free fluid in the pelvis. 3. Question mild wall thickening involving the descending colon versus underdistention. Correlate clinically for evidence of a mild nonspecific colitis. 4. There are enlarged left external iliac chain lymph nodes. These are pathologically indeterminant, new from 03/28/2016, and may be on a reactive basis. Clinical correlation will be essential. 5. Small foci of gas are present within the bladder lumen. This may be related to recent instrumentation. Correlation with clinical findings and urinalysis will be required. 6. Segmental atelectasis is present at both lung bases. This has increased from 03/28/2016. 7. Cardiomegaly. 8. Mild colonic diverticulosis without clear CT evidence of acute diverticulitis. 9. There is nonspecific presacral induration. This is of indeterminant etiology and significance, and is new from previous. 10. Additional chronic changes as above. Electronically signed by: Tej Bernard M.D. 02/28/2017 7:44 PM Dictated Date/Time: 02/28/2017 7:32 PM
--- NOTE | 2017-02-28 20:49 | EMERGENCY ROOM VISIT NOTE ---
History Report prepared by Lethaibyony: Ed Bonilla Under the Supervision of: Dr. Rey Yang D.O. First contact with patient: 16:34 Chief Complaint: GI ASSESSMENT Stated Complaint: NAUSEA, VOMITING Nursing Triage Summary: Pt presents via BLS litter from [facility] for eval of lower abd pain and n/v x 2 days. Pt reports decreased fluid intake. Labwork done yesterday showed WBC 29,000. Pt states they did check her urine and told her she has a UTI. Pt states she is unable to keep down abx. Pt also reports h/a. Pt asking for coke upon arrival stating that it helps her. Pt advised to be NPO at this time. History of Present Illness The patient is a 71 year old female who presents to the Emergency Room with complaints of persistent nausea and vomiting beginning two days ago. She also complains of abdominal pain. She was seen for her symptoms yesterday and diagnosed with a UTI. The patient denies known fevers, chest pain, SOB, or cough. No recent travel. No recent abnormal foods. Source of History: patient Onset: Two days ago Quality: other (nausea and vomiting) Timing: other (persistent) Associated Symptoms: + abdominal pain, No fevers (known), No cough, No chest pain, No SOB Review of Systems See HPI for pertinent positives & negatives. A total of 10 systems reviewed and were otherwise negative. Past Medical & Surgical Medical Problems: (1) Acute respiratory failure with hypoxia (2) Ambulatory dysfunction (3) Back pain (4) Cholelithiases (5) Chronic kidney disease (CKD) stage G3a/A1, moderately decreased glomerular filtration rate (GFR) between 45-59 mL/min/1.73 square meter and albuminuria creatinine ratio less than 30 mg/g (6) Chronic Kidney Disease, Stage Iii (Moderate) (7) Compression fracture of fourth lumbar vertebra (8) Constipation (9) COPD (chronic obstructive pulmonary disease) (10) Crystal arthritis (11) Duodenal bulb ulcer (12) DVT (deep venous thrombosis) (13) Fecal impaction of colon (14) Fracture of right olecranon process (15) Gout (16) Gout attack (17) Headache (18) Hodgkins lymphoma (19) Humerus fracture (20) Hyperlipidemia Nec/Nos (21) Hypertension (22) Hypertension (23) Hypertension (24) Hypertensive urgency (25) Hypertensive urgency (26) Hypertensive urgency (27) Intractable abdominal pain (28) Intractable pain (29) Intractable pain (30) Intractable pain (31) Knee pain (32) Left renal artery stenosis (33) Lethargy (34) Lower extremity edema (35) Lumbar compression fracture (36) Malignant HTN with heart disease, 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, with chronic kidney disease (37) Medication reaction (38) Methadone withdrawal (39) Mucus plugging of bronchi (40) Narcotic withdrawal (41) Narcotic withdrawal (42) Noncompliance with medication regimen (43) Noncompliance with medications (44) Opiate use (45) Opioid dependence (46) Osteoporosis (47) Perforated duodenal ulcer (48) PNA (pneumonia) (49) Pneumonia (50) right hand cellulitis (51) Right renal artery stenosis (52) Secondary hyperparathyroidism (53) Shortness of breath (54) Thrush, oral (55) UTI (urinary tract infection) (56) Vomiting (57) Wedge compression fracture of T11 vertebra Surgical Problems: (1) History of kyphoplasty (2) left renal artery stent placement Family History Heart disease Social History Smoking Status: Never Smoker Alcohol Use: none Drug Use: none Marital Status: Housing Status: lives with family Occupation Status: disabled Current/Historical Medications Scheduled Allopurinol (Zyloprim), 100 MG PO BID Baclofen (Lioresal), 10 MG PO TID Calcitonin [place] (Calcitonin-Lenox), 1 SPRAY ERIC DAILY Carvedilol (Coreg), 25 MG PO BID Cholecalciferol (D-1000), 4,000 UNITS PO DAILY Clonidine Hcl (Onscakrj-Xkd-2), 2 PATCH TD WK Duloxetine HCl (Cymbalta), 30 MG PO QAM Ferrous Sulfate (Kp Ferrous Sulfate), 325 MG PO DAILY Fluticasone Prop/Salmeterol (Advair Diskus 250/50 60 Dose), 1 PUFFS INH BID Fluticasone Propionate (Nasal) (Flonase Allergy Relief Ch), 1 SPRAY ERIC BID Furosemide (Furosemide), 20 MG PO QAM Hydralazine Hcl (Apresoline), 25 MG PO TID Ipratropium-Albuterol (Combivent Respimat), 1 PUFFS INH QID Latanoprost (Latanoprost), 1 DROP OPR HS Melatonin (Melatonin Maximum Strengt), 5 MG PO HS Methadone Hcl (Dolophine), 30 MG PO TID Multivitamin (Multivitamin), 1 TAB PO DAILY Nystatin (Nystop), 1 APPLN EXT TID Pantoprazole (Protonix), 40 MG PO BID Polyethylene Glycol 3350 (Miralax), 17 GM PO QAM Potassium Chloride (Micro-K Ext Rel), 10 MEQ PO DAILY Prednisone (Prednisone), 5 MG PO DAILY Saccharomyces Boulardii (Florastor), 1 CAP PO DAILY Sennosides (Senokot), 1 TAB PO QAM Sucralfate (Carafate), 1 GM PO ACHS Tiotropium [place] (Spiriva Handihaler), 1 CAP INH DAILY Scheduled PRN Acetaminophen (Tylenol), 650 MG PO Q6 PRN for Pain or Fever Epinephrine (Epipen), 0.3 MG IM UD PRN for ALLERGIC REACTION Magnesium Hydroxide (Milk of Magnesia), 30 ML PO UD PRN for Constipation Ondasetron Odt (Zofran Odt), 4 MG SL Q6H PRN for Nausea Miscellaneous Medications Bisacodyl (Dulcolax), 1 SUPP ID Dextrose (Diabetic Use) (Insta-Glucose), 1 APPLN PO Glucagon (Glucagon Emergency Kit), 1 APPLN IM Sodium Phosphates (Fleet Enema Six Pack), 1 APPL RE Allergies Coded Allergies: Squash (Verified Allergy, Unknown, Zucchini, 02/28/17) Azithromycin (Verified Adverse Reaction, Unknown, nausea, 02/28/17) Levofloxacin (Verified Adverse Reaction, Unknown, nausea, 02/28/17) Physical Exam Vital Signs Date Time Temp Pulse Resp B/P (MAP) Pulse Ox O2 Delivery O2 Flow Rate FiO2 02/28/17 19:44 96 18 201/136 94 Room Air 02/28/17 16:42 107 02/28/17 16:29 37.1 96 18 160/111 96 Nasal Cannula 4.0 Physical Exam CONSTITUTIONAL/VITAL SIGNS: Reviewed / noted above. GENERAL: Non-toxic in appearance. INTEGUMENTARY: Warm, dry, and [place]. HEAD: Normocephalic. EYES: without scleral icterus or trauma. ENT/OROPHARYNX: clear and moist. LYMPHADENOPATHY/NECK: Is supple without lymphadenopathy or meningismus. RESPIRATORY: Lungs clear and equal. CARDIOVASCULAR: Regular rate and rhythm. GI/ABDOMEN: Soft and nontender. No organomegaly or pulsatile mass. No rebound or guarding. Normal bowel sounds. EXTREMITIES: Warm and well perfused. BACK: No CVA tenderness. NEUROLOGICAL: Intact without focal deficits. PSYCHIATRIC: normal affect. MUSCULOSKELETAL: Normally developed with good muscle tone. Medical Decision & Procedures ER Provider Diagnostic Interpretation: Radiology results as stated below per my review and radiologist interpretation: SINGLE VIEW CHEST FINDINGS: An AP, portable, upright chest radiograph is compared to study dated 02/21/2017. Correlation is made with chest CT dated 07/22/2016. The examination is significantly degraded by portable technique and patient rotation. The heart is enlarged and there is atherosclerotic calcification of the thoracic aorta. The pulmonary vasculature is noncongested. There are low lung volumes and chronic interstitial thickening. No airspace consolidation or large pleural effusion is identified. Linear atelectasis versus scarring is again noted in the right lung. No pneumothorax is identified. The skeletal structures are osteopenic. Thoracic and lumbar compression deformities are identified with evidence of previous multilevel vertebroplasty. Postoperative change and chronic posttraumatic deformity are seen in the left humerus. There are numerous healed bilateral rib fractures. IMPRESSION: Cardiomegaly and low lung volumes with no acute cardiopulmonary abnormality. Electronically signed by: Tej Bernard M.D. 02/28/2017 5:[address] SCAN OF THE ABDOMEN AND PELVIS WITHOUT IV CONTRAST FINDINGS: Lung bases: The heart is mildly enlarged and without pericardial effusion. The coronary arteries are densely calcified. Segmental atelectasis is present at both lung bases. No airspace consolidation is seen typical for pneumonia and there is no pleural effusion. Liver: Evaluation of the liver is degraded by streak artifact. The unenhanced liver is normal in size, contour, and attenuation. There is no intrahepatic biliary ductal dilatation. Gallbladder: Mildly distended and grossly unremarkable. Spleen: Normal in size and attenuation. Pancreas: The unenhanced pancreas is moderately atrophic and grossly unremarkable. Adrenal glands: Unremarkable. Kidneys: The unenhanced kidneys are atrophic and without hydronephrosis. There are no renal calculi identified. There is no evidence of contour deforming renal mass lesion. Abdominal vasculature: The abdominal aorta is normal in course and caliber noting advanced atherosclerotic calcification. A stent is present in the right renal artery. Bowel: There is no bowel obstruction. There is laxity of the ventral abdominal wall. A small ventral hernia contains a nonobstructed segment of small bowel. There is mild colonic diverticulosis without CT evidence of acute diverticulitis. There is mild wall thickening versus underdistention of the descending colon. The appendix is well-visualized and normal. Peritoneum: There is trace perihepatic free fluid. Trace fluid is also seen in the pelvis. No peritoneal free air is seen. Lymphadenopathy: There are enlarged left external iliac chain lymph nodes. The largest is seen on image #[id number] an measures 1.8 x 1.2 cm. Pelvic viscera: Small foci of gas are seen in the bladder lumen. The bladder is otherwise normal as imaged, as are the uterus and adnexa. There is nonspecific presacral induration. This is new from previous. Skeletal structures: The skeletal structures are osteopenic. Postoperative change is partially imaged in the left humerus. There are compression deformities identified at all imaged lower thoracic and lumbar levels with evidence of previous multilevel vertebroplasty. There are numerous healed bilateral rib fractures. Postoperative change is present in both femora. There are healed left pubic ring fractures. No lytic or blastic lesions are seen. IMPRESSION: 1. Significantly suboptimal examination without oral and IV contrast. The examination is also degraded by streak and motion artifact. 2. There is trace perihepatic free fluid as well as a small volume of free fluid in the pelvis. 3. Question mild wall thickening involving the descending colon versus underdistention. Correlate clinically for evidence of a mild nonspecific colitis. 4. There are enlarged left external iliac chain lymph nodes. These are pathologically indeterminant, new from 03/28/2016, and may be on a reactive basis. Clinical correlation will be essential. 5. Small foci of gas are present within the bladder lumen. This may be related to recent instrumentation. Correlation with clinical findings and urinalysis will be required. 6. Segmental atelectasis is present at both lung bases. This has increased from 03/28/2016. 7. Cardiomegaly. 8. Mild colonic diverticulosis without clear CT evidence of acute diverticulitis. 9. There is nonspecific presacral induration. This is of indeterminant etiology and significance, and is new from previous. 10. Additional chronic changes as above. Electronically signed by: Tej Bernard M.D. 02/28/2017 7:44 PM Laboratory Results 02/28/17 18:15 Red Blood Count 5.23, Mean Corpuscular Volume 88.3, Mean Corpuscular Hemoglobin 28.1, Mean Corpuscular Hemoglobin Concent 31.8, Mean Platelet Volume 12.7, Neutrophils (%) (Auto) 87.1, Lymphocytes (%) (Auto) 4.6, Monocytes (%) (Auto) 6.9, Eosinophils (%) (Auto) 0.0, Basophils (%) (Auto) 0.1, Neutrophils # (Auto) 26.80, Lymphocytes # (Auto) 1.41, Monocytes # (Auto) 2.12, Eosinophils # (Auto) 0.01, Basophils # (Auto) 0.04 02/28/17 18:15 Test 02/28/17 17:18 02/28/17 18:15 Urine Color DK YELLOW Urine Appearance CLOUDY (CLEAR) Urine pH 6.0 (4.5-7.5) Urine Specific [place] 1.019 (1.000-1.030) Urine Protein 3+ (NEG) Urine Glucose (UA) NEG (NEG) Urine Ketones TRACE (NEG) Urine Occult Blood NEG (NEG) Urine Nitrite NEG (NEG) Urine Bilirubin NEG (NEG) Urine Urobilinogen NEG (NEG) Urine Leukocyte Esterase TRACE (NEG) Urine WBC (Auto) 10-30 /hpf (0-5) Urine RBC (Auto) 0-4 /hpf (0-4) Urine Hyaline Casts (Auto) 1-5 /lpf (0-5) Urine Epithelial Cells (Auto) >30 /lpf (0-5) Urine Bacteria (Auto) 4+ (NEG) Urine Renal Epithelial Cells /lpf (0-5) Urine Crystals URIC ACID (NONE PRSENT) White Blood Count 30.79 K/uL (4.8-10.8) Red Blood Count 5.23 M/uL (4.2-5.4) Hemoglobin 14.7 g/dL (12.0-16.0) Hematocrit 46.2 % (37-47) Mean Corpuscular Volume 88.3 fL (80-100) Mean Corpuscular Hemoglobin 28.1 pg (25-34) Mean Corpuscular Hemoglobin Concent 31.8 g/dl (32-36) Platelet Count 242 K/uL (130-400) Mean Platelet Volume 12.7 fL (7.4-10.4) Neutrophils (%) (Auto) 87.1 % Lymphocytes (%) (Auto) 4.6 % Monocytes (%) (Auto) 6.9 % Eosinophils (%) (Auto) 0.0 % Basophils (%) (Auto) 0.1 % Neutrophils # (Auto) 26.80 K/uL (1.4-6.5) Lymphocytes # (Auto) 1.41 K/uL (1.2-3.4) Monocytes # (Auto) 2.12 K/uL (0.11-0.59) Eosinophils # (Auto) 0.01 K/uL (0-0.5) Basophils # (Auto) 0.04 K/uL (0-0.2) RDW Standard Deviation 54.5 fL (36.4-46.3) RDW Coefficient of Variation 17.2 % (11.5-14.5) Immature Granulocyte % (Auto) 1.3 % Immature Granulocyte # (Auto) 0.41 K/uL (0.00-0.02) Prothrombin Time 12.2 SECONDS (9.0-12.0) Prothromb Time International Ratio 1.1 (0.9-1.1) Activated Partial Thromboplast Time 26.8 SECONDS (21.0-31.0) Partial Thromboplastin Ratio 1.0 Anion Gap 10.0 mmol/L (3-11) Est Creatinine Clear Calc Drug Dose 22.4 ml/min Estimated GFR () 32.7 Estimated GFR (Non- 28.2 BUN/Creatinine Ratio 20.9 (10-20) Calcium Level 8.7 mg/dl (8.5-10.1) Total Bilirubin 0.6 mg/dl (0.2-1) Direct Bilirubin 0.1 mg/dl (0-0.2) Aspartate Amino Transf (AST/SGOT) 25 U/L (15-37) Alanine Aminotransferase (ALT/SGPT) 18 U/L (12-78) Alkaline Phosphatase 114 U/L (45-117) Total Protein 6.6 gm/dl (6.4-8.2) Albumin 3.0 gm/dl (3.4-5.0) Lipase 384 U/L (73-393) Laboratory results as stated above per my review. Medications Administered Medications (Trade) Dose Ordered Sig/Estephania Route Start Time Stop Time Status Last Admin Dose Admin Sodium Chloride 1,000 ml @ 999 mls/hr Q1H1M STAT IV 02/28/17 16:43 02/28/17 17:43 DC 02/28/17 17:20 999 MLS/HR Ondansetron HCl (Zofran Inj) 4 mg NOW STAT IV 02/28/17 16:43 02/28/17 16:47 DC 02/28/17 17:42 4 MG Ceftriaxone Sodium (Rocephin Inj) 1 gm NOW STAT IV 02/28/17 16:43 02/28/17 16:47 DC 02/28/17 17:42 1 GM ED Course 1637: Previous medical records were reviewed. The patient was evaluated in room C8. A complete history and physical examination was performed. 1642: Ordered Rocephin Inj 1 gm IV, Zofran Inj 4 mg IV, Sodium Chloride 1000 ml @ 999 mls/hr IV. 2024: On reevaluation, the patient is resting comfortably. I discussed the results and findings with her. She verbalized agreement of the treatment plan. I spoke with Dr. Carrillo of the [facility] Hospitalist Service. The patient will be evaluated for further management and care. Medical Decision Differential considered: pancreatitis, hepatitis, or acute cholecystitis, AAA, UTI, pyelonephritis, kidney stones, appendicitis, diverticulitis, shingles, bowel obstruction mesenteric ischemia, intussusception,hernia, testicular torsion, ovarian torsion, ruptured ovarian cyst,ectopic , . This is a 71-year-old female who presents to the ED with a chief complaint of nausea, vomiting and diarrhea. She has had the symptoms for the last 2 days. Yesterday she was found to have a UTI and started on antibiotics at the correction. Her white blood cell count yesterday was 29,000. Because of her nausea and vomiting and inability to take her antibiotics today, she was sent here for evaluation. The patient reports some mild abdominal discomfort. She is diffusely tender mildly on exam. Her blood pressure was 160/111. Her physical exam was otherwise unremarkable. The patient did report some urinary symptoms couple of days ago. Today her urine appears to be contaminated but may reveal some infection. This may be partially related to treated UTI. White blood cell count was 30.7. BUN is 38 and creatinine is 1.8. Chest x-ray did not show acute disease. A CT scan of the abdomen and pelvis reveals some findings suggesting mild colitis and possibly some mild reactive lymphadenopathy. Because of the patient's symptoms, she was treated with IV antibiotics, IV fluids and IV Zofran. She will be seen by the hospitalist service for further inpatient evaluation and care. Medication Reconcilliation Current Medication List: was personally reviewed by me Blood Pressure Screening Patient's blood pressure: Elevated blood pressure Blood pressure disposition: Elevated BP felt to be situational Consults Time Called: 2017 Consulting Physician: Dr. Carrillo -[facility] Returned Call: [phone] Discussed the patient's case. The patient will be evaluated for further treatment and disposition. Impression Primary Impression: UTI (urinary tract infection) Additional Impression: Dehydration Scribe Attestation The scribe's documentation has been prepared under my direction and personally reviewed by me in its entirety. I confirm that the note above accurately reflects all work, treatment, procedures, and medical decision making performed by me. Departure Information Referrals Marti Vila (PCP) Patient Instructions [facility] Problem Qualifiers
[2017-02-28 21:34] VITALS: Ht 149.9 cm; Wt 55.3 kg
[2017-02-28] MEDS ORDERED: ACETAMINOPHEN 325 MG TAB PO PRN (23:00)
[2017-02-28] MEDS ORDERED: MAGNESIUM HYDROXIDE SUSP 30 ML UDC PO PRN (23:00)
[2017-02-28] MEDS ORDERED: SOD PHOSPHATE/SOD BIPHOSPHATE ENEMA 132 ML BTL PR PRN (23:00)
[2017-02-28] MEDS ORDERED: BISACODYL 10 MG SUPP PR PRN (23:00)
--- NOTE | 2017-02-28 23:08 | History and Physical ---
History & Physical Date & Time of Service: Feb 28, 2017 at 23:07 Chief Complaint: Dehydration, Sepsis Secondary To Uti Primary Care Physician: Marti Vila History of Present Illness Source: patient, hospital records, shelter The patient is a 71-year-old female resident of [facility] presents emergency department via BLS with complaint of abdominal pain, nausea and vomiting that began 2 days prior to arrival. She was diagnosed with a UTI yesterday and placed on antibiotics. She has generalized weakness, and fatigue. Past Medical/Surgical History Medical Problems: (1) Ambulatory dysfunction Status: Resolved (2) Cholelithiases Status: Resolved (3) Chronic Kidney Disease, Stage Iii (Moderate) Status: Chronic (4) Compression fracture of fourth lumbar vertebra Status: Resolved (5) Constipation Status: Resolved (6) Crystal arthritis Status: Chronic (7) Duodenal bulb ulcer Status: Chronic (8) DVT (deep venous thrombosis) Status: Resolved (9) Fecal impaction of colon Status: Resolved (10) Gout Status: Chronic (11) Gout attack Status: Resolved (12) Headache Status: Resolved (13) Hodgkins lymphoma Status: Resolved (14) Hyperlipidemia Nec/Nos Status: Chronic (15) Hypertension Status: Chronic (16) Hypertension Status: Resolved (17) Hypertensive urgency Status: Resolved (18) Hypertensive urgency Status: Resolved (19) Hypertensive urgency Status: Resolved (20) Intractable abdominal pain Status: Resolved (21) Intractable pain Status: Resolved (22) Intractable pain Status: Resolved (23) Intractable pain Status: Resolved (24) Knee pain Status: Resolved (25) Left renal artery stenosis Status: Resolved (26) Lumbar compression fracture Status: Chronic (27) Malignant HTN with heart disease, 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, with chronic kidney disease Status: Resolved (28) Medication reaction Status: Resolved (29) Methadone withdrawal Status: Resolved (30) Narcotic withdrawal Status: Resolved (31) Narcotic withdrawal Status: Resolved (32) Noncompliance with medication regimen Status: Resolved (33) Noncompliance with medications Status: Resolved (34) Opiate use Status: Chronic (35) Osteoporosis Status: Chronic (36) Perforated duodenal ulcer Status: Resolved (37) right hand cellulitis Status: Resolved (38) Right renal artery stenosis Status: Chronic (39) Secondary hyperparathyroidism Status: Chronic (40) Vomiting Status: Resolved (41) Wedge compression fracture of T11 vertebra Status: Resolved Surgical Problems: (1) History of kyphoplasty Status: Resolved (2) left renal artery stent placement Status: Resolved Family History Heart disease Social History Smoking Status: Former Smoker Smokeless Tobacco Use: No Alcohol Use: none Drug Use: none Marital Status: Housing status: shelter Occupational Status: disabled Immunizations History of Influenza Vaccine: Yes Influenza Vaccine Date: Mar 01, 2013 History of Tetanus Vaccine?: Yes Tetanus Immunization Date: Dec 18, 2009 History of Pneumococcal: Yes Pneumococcal Date: Jun 01, 2012 History of Hepatitis B Vaccine: No Multi-Drug Resistant Organisms History of MDRO: Yes Type of MDRO: VRE, MRSA Allergies Coded Allergies: Squash (Verified Allergy, Unknown, Zucchini, 02/28/17) Azithromycin (Verified Adverse Reaction, Unknown, nausea, 02/28/17) Levofloxacin (Verified Adverse Reaction, Unknown, nausea, 02/28/17) Home Medications Scheduled Allopurinol (Zyloprim), 100 MG PO BID Baclofen (Lioresal), 10 MG PO TID Calcitonin [place] (Calcitonin-[place]), 1 SPRAY ERIC DAILY Carvedilol (Coreg), 25 MG PO BID Cholecalciferol (D-1000), 4,000 UNITS PO DAILY Clonidine Hcl (Iurzuqfu-Psy-9), 2 PATCH TD WK Duloxetine HCl (Cymbalta), 30 MG PO QAM Ferrous Sulfate (Kp Ferrous Sulfate), 325 MG PO DAILY Fluticasone Prop/Salmeterol (Advair Diskus 250/50 60 Dose), 1 PUFFS INH BID Fluticasone Propionate (Nasal) (Flonase Allergy Relief Ch), 1 SPRAY ERIC BID Furosemide (Furosemide), 20 MG PO QAM Hydralazine Hcl (Apresoline), 25 MG PO TID Ipratropium-Albuterol (Combivent Respimat), 1 PUFFS INH QID Latanoprost (Latanoprost), 1 DROP OPR HS Melatonin (Melatonin Maximum Strengt), 5 MG PO HS Methadone Hcl (Dolophine), 30 MG PO TID Multivitamin (Multivitamin), 1 TAB PO DAILY Nystatin (Nystop), 1 APPLN EXT TID Pantoprazole (Protonix), 40 MG PO BID Polyethylene Glycol 3350 (Miralax), 17 GM PO QAM Potassium Chloride (Micro-K Ext Rel), 10 MEQ PO DAILY Prednisone (Prednisone), 5 MG PO DAILY Saccharomyces Boulardii (Florastor), 1 CAP PO DAILY Sennosides (Senokot), 1 TAB PO QAM Sucralfate (Carafate), 1 GM PO ACHS Tiotropium [place] (Spiriva [place]), 1 CAP INH DAILY Scheduled PRN Acetaminophen (Tylenol), 650 MG PO Q6 PRN for Pain or Fever Epinephrine (Epipen), 0.3 MG IM UD PRN for ALLERGIC REACTION Magnesium Hydroxide (Milk of Magnesia), 30 ML PO UD PRN for Constipation Ondasetron Odt (Zofran Odt), 4 MG SL Q6H PRN for Nausea Miscellaneous Medications Bisacodyl (Dulcolax), 1 SUPP HI Dextrose (Diabetic Use) (Insta-Glucose), 1 APPLN PO Glucagon (Glucagon Emergency Kit), 1 APPLN IM Sodium Phosphates (Fleet Enema Six Pack), 1 APPL RE Review of Systems The patient denies chest pain, palpitations, shortness of breath, cough, lower extremity swelling, vision change, hearing change, sore throat, fevers, chills, sweats, nausea, vomiting, diarrhea or constipation , blood in urine or stool, dysuria, urinary frequency or urgency, lightheadedness , dizziness, headache, memory loss, rash, abnormal bruising or bleeding, imbalance, focal weakness, numbness or tingling in arms or legs, generalized arthralgias or myalgias, back or neck pain, or night sweats. The review of systems is otherwise negative other than for that already noted above, and at least 10 systems have been reviewed. Physical Exam Vital Signs Date Time Temp Pulse Resp B/P (MAP) Pulse Ox O2 Delivery O2 Flow Rate FiO2 02/28/17 22:22 115 17 144/115 95 Nasal Cannula 4.0 02/28/17 21:34 Nasal Cannula 02/28/17 21:23 97 17 123/89 95 Room Air 02/28/17 20:49 111 02/28/17 19:44 96 18 201/136 94 Room Air 02/28/17 16:42 107 02/28/17 16:29 37.1 96 18 160/111 96 Nasal Cannula 4.0 The patient is awake, alert and oriented 3, normocephalic and atraumatic, appears chronically ill, lying in bed and in no acute distress. HEENT--PERRL, EOMI, mucous membranes and oropharynx dry. Neck--supple, no JVD or bruits, thyroid normal, trachea midline, no adenopathy. Heart--normal S1 and S2, no extra beats, no murmurs, rubs or gallops. Lungs--clear bilaterally but diminished throughout, no respiratory distress, no accessory muscle use. Abdomen--normal bowel sounds and soft, nontender and nondistended, no hernias or masses, no organomegaly. Extremities--no cyanosis, clubbing or edema. There are good distal pulses b/l. Dermatologic--normal skin turgor, normal color, warm and dry, no abnormal lymph nodes, no rash. Neurologic--cranial nerves II through XII grossly intact Rheumatologic--normal range of motion, nontender, muscles and joints. Psychiatric--normal affect. Diagnostics Laboratory Results Results Past 24 Hours Test 02/28/17 17:18 02/28/17 18:15 Range/Units Urine Color DK YELLOW Urine Appearance CLOUDY CLEAR Urine pH 6.0 4.5-7.5 Urine Specific [place] 1.019 1.000-1.030 Urine Protein 3+ NEG Urine Glucose (UA) NEG NEG Urine Ketones TRACE NEG Urine Occult Blood NEG NEG Urine Nitrite NEG NEG Urine Bilirubin NEG NEG Urine Urobilinogen NEG NEG Urine Leukocyte Esterase TRACE NEG Urine WBC (Auto) 10-30 0-5 /hpf Urine RBC (Auto) 0-4 0-4 /hpf Urine Hyaline Casts (Auto) 1-5 0-5 /lpf Urine Epithelial Cells (Auto) >30 0-5 /lpf Urine Bacteria (Auto) 4+ NEG Urine Renal Epithelial Cells 0-5 /lpf Urine Crystals URIC ACID NONE PRSENT White Blood Count 30.79 4.8-10.8 K/uL Red Blood Count 5.23 4.2-5.4 M/uL Hemoglobin 14.7 12.0-16.0 g/dL Hematocrit 46.2 37-47 % Mean Corpuscular Volume 88.3 80-100 fL Mean Corpuscular Hemoglobin 28.1 25-34 pg Mean Corpuscular Hemoglobin Concent 31.8 32-36 g/dl Platelet Count 242 130-400 K/uL Mean Platelet Volume 12.7 7.4-10.4 fL Neutrophils (%) (Auto) 87.1 % Lymphocytes (%) (Auto) 4.6 % Monocytes (%) (Auto) 6.9 % Eosinophils (%) (Auto) 0.0 % Basophils (%) (Auto) 0.1 % Neutrophils # (Auto) 26.80 1.4-6.5 K/uL Lymphocytes # (Auto) 1.41 1.2-3.4 K/uL Monocytes # (Auto) 2.12 0.11-0.59 K/uL Eosinophils # (Auto) 0.01 0-0.5 K/uL Basophils # (Auto) 0.04 0-0.2 K/uL RDW Standard Deviation 54.5 36.4-46.3 fL RDW Coefficient of Variation 17.2 11.5-14.5 % Immature Granulocyte % (Auto) 1.3 % Immature Granulocyte # (Auto) 0.41 0.00-0.02 K/uL Prothrombin Time 12.2 9.0-12.0 SECONDS Prothromb Time International Ratio 1.1 0.9-1.1 Activated Partial Thromboplast Time 26.8 21.0-31.0 SECONDS Partial Thromboplastin Ratio 1.0 Sodium Level 141 136-145 mmol/L Potassium Level 3.7 3.5-5.1 mmol/L Chloride Level 100 98-107 mmol/L Carbon Dioxide Level 31 21-32 mmol/L Anion Gap 10.0 3-11 mmol/L Blood Urea Nitrogen 38 7-18 mg/dl Creatinine 1.80 0.60-1.20 mg/dl Est Creatinine Clear Calc Drug Dose 22.4 ml/min Estimated GFR () 32.7 Estimated GFR (Non- 28.2 BUN/Creatinine Ratio 20.9 10-20 Random Glucose 62 70-99 mg/dl Calcium Level 8.7 8.5-10.1 mg/dl Total Bilirubin 0.6 0.2-1 mg/dl Direct Bilirubin 0.1 0-0.2 mg/dl Aspartate Amino Transf (AST/SGOT) 25 15-37 U/L Alanine Aminotransferase (ALT/SGPT) 18 12-78 U/L Alkaline Phosphatase 114 45-117 U/L Total Protein 6.6 6.4-8.2 gm/dl Albumin 3.0 3.4-5.0 gm/dl Lipase 384 73-393 U/L Diagnostic Radiology Patient Name: GRICELDA PEREZ Unit Number: [id number] Dictated: 02/28/171734 Transcribed: 02/28/171734 EV Printed Date/Time: [~ rep prt dt]/[~ rep prt tm] [~ rep ct labl] - [~ rep ct ivnm] [facility] [place] [address] Dictated: 02/28/171734 Transcribed: 02/28/171734 EV Printed Date/Time: [~ rep prt dt]/[~ rep prt tm] [~ rep ct labl] - [~ rep ct ivnm] SINGLE VIEW CHEST CLINICAL HISTORY: Generalized abdominal pain. Nausea and vomiting. FINDINGS: An AP, portable, upright chest radiograph is compared to study dated 02/21/2017. Correlation is made with chest CT dated 07/22/2016. The examination is significantly degraded by portable technique and patient rotation. The heart is enlarged and there is atherosclerotic calcification of the thoracic aorta. The pulmonary vasculature is noncongested. There are low lung volumes and chronic interstitial thickening. No airspace consolidation or large pleural effusion is identified. Linear atelectasis versus scarring is again noted in the right lung. No pneumothorax is identified. The skeletal structures are osteopenic. Thoracic and lumbar compression deformities are identified with evidence of previous multilevel vertebroplasty. Postoperative change and chronic posttraumatic deformity are seen in the left humerus. There are numerous healed bilateral rib fractures. IMPRESSION: Cardiomegaly and low lung volumes with no acute cardiopulmonary abnormality. Electronically signed by: Tej Bernard M.D. 02/28/2017 5:36 PM Dictated Date/Time: 02/28/2017 5:35 PM The status of this report is Signed. Draft = Not yet reviewed or approved by Radiologist. Signed = Reviewed and approved by Radiologist. <AttendingPhy></AttendingPhy> <FamilyPhy>HeartMarti johnston</FamilyPhy> < PrimaryPhy>Heartpreston F[place]reau</PrimaryPhy> <UnitNumber>[id number]</UnitNumber> < VisitNumber>[id number]</VisitNumber> <PatientName>GRICELDA PEREZ</PatientName> <DateOfBirth>1945</DateOfBirth> <Location>[facility]</Location> <ServiceDate></ServiceDate> <MNE>ESINDI</MNE> <OrderingPhy>Rey Yang D.O.</ OrderingPhy> <OrderingPhyMNE>f rep ord dr perez</OrderingPhyMNE> <DictatingPhyMNE> f rep dict dr perez</DictatingPhyMNE> <CCListMNE>f rep ct mne</CCListMNE> < AdmittingPhyMNE>f pt admit dr perez</AdmittingPhyMNE> <AttendingPhyMNE>f pt attend dr perez</AttendingPhyMNE> <ConsultingPhyMNE>f pt consult dr perez</ConsultingPhyMNE> <FamilyPhyMNE>f pt fam dr perez</FamilyPhyMNE> <OtherPhyMNE>f pt other dr perez</OtherPhyMNE> < PrimaryPhyMNE>f pt prim care dr perez</PrimaryPhyMNE> <ReferringPhyMNE>f pt referring dr perez</ReferringPhyMNE> Patient Name: GRICELDA PEREZ Unit Number: [id number] Dictated: 02/28/171931 Transcribed: 02/28/171931 EV Printed Date/Time: [~ rep prt dt]/[~ rep prt tm] [~ rep ct labl] - [~ rep ct ivnm] [facility] Radiology Department [place] [id number] Dictated: 02/28/171931 Transcribed: 02/28/171931 EV Printed Date/Time: [~ rep prt dt]/[~ rep prt tm] [~ rep ct labl] - [~ rep ct ivnm] [~ rep ct add3]] CT SCAN OF THE ABDOMEN AND PELVIS WITHOUT IV CONTRAST CLINICAL HISTORY: Generalized abdominal pain. COMPARISON STUDY: Abdominal CT dated 03/28/2016. TECHNIQUE: CT scan of the abdomen and pelvis is performed from the lung bases to the proximal femora. Images are reviewed in the axial, sagittal, and coronal planes. IV contrast was not administered for this examination as per the referring clinician. Note that the examination was performed in significantly suboptimal fashion without oral and IV contrast. The examination is also degraded by streak artifact from the patient's arms which could not be elevated above the abdomen and motion. A dose lowering technique was utilized adhering to the principles of ALARA. CT DOSE: 516.04 mGycm FINDINGS: Lung bases: The heart is mildly enlarged and without pericardial effusion. The coronary arteries are densely calcified. Segmental atelectasis is present at both lung bases. No airspace consolidation is seen typical for pneumonia and there is no pleural effusion. Liver: Evaluation of the liver is degraded by streak artifact. The unenhanced liver is normal in size, contour, and attenuation. There is no intrahepatic biliary ductal dilatation. Gallbladder: Mildly distended and grossly unremarkable. Spleen: Normal in size and attenuation. Pancreas: The unenhanced pancreas is moderately atrophic and grossly unremarkable. Adrenal glands: Unremarkable. Kidneys: The unenhanced kidneys are atrophic and without hydronephrosis. There are no renal calculi identified. There is no evidence of contour deforming renal mass lesion. Abdominal vasculature: The abdominal aorta is normal in course and caliber noting advanced atherosclerotic calcification. A stent is present in the right renal artery. Bowel: There is no bowel obstruction. There is laxity of the ventral abdominal wall. A small ventral hernia contains a nonobstructed segment of small bowel. There is mild colonic diverticulosis without CT evidence of acute diverticulitis. There is mild wall thickening versus underdistention of the descending colon. The appendix is well-visualized and normal. Peritoneum: There is trace perihepatic free fluid. Trace fluid is also seen in the pelvis. No peritoneal free air is seen. Lymphadenopathy: There are enlarged left external iliac chain lymph nodes. The largest is seen on image #249 an measures 1.8 x 1.2 cm. Pelvic viscera: Small foci of gas are seen in the bladder lumen. The bladder is otherwise normal as imaged, as are the uterus and adnexa. There is nonspecific presacral induration. This is new from previous. Skeletal structures: The skeletal structures are osteopenic. Postoperative change is partially imaged in the left humerus. There are compression deformities identified at all imaged lower thoracic and lumbar levels with evidence of previous multilevel vertebroplasty. There are numerous healed bilateral rib fractures. Postoperative change is present in both femora. There are healed left pubic ring fractures. No lytic or blastic lesions are seen. IMPRESSION: 1. Significantly suboptimal examination without oral and IV contrast. The examination is also degraded by streak and motion artifact. 2. There is trace perihepatic free fluid as well as a small volume of free fluid in the pelvis. 3. Question mild wall thickening involving the descending colon versus underdistention. Correlate clinically for evidence of a mild nonspecific colitis. 4. There are enlarged left external iliac chain lymph nodes. These are pathologically indeterminant, new from 03/28/2016, and may be on a reactive basis. Clinical correlation will be essential. 5. Small foci of gas are present within the bladder lumen. This may be related to recent instrumentation. Correlation with clinical findings and urinalysis will be required. 6. Segmental atelectasis is present at both lung bases. This has increased from 03/28/2016. 7. Cardiomegaly. 8. Mild colonic diverticulosis without clear CT evidence of acute diverticulitis. 9. There is nonspecific presacral induration. This is of indeterminant etiology and significance, and is new from previous. 10. Additional chronic changes as above. Electronically signed by: Tej Bernard M.D. 02/28/2017 7:44 PM Dictated Date/Time: 02/28/2017 7:32 PM The status of this report is Signed. Draft = Not yet reviewed or approved by Radiologist. Signed = Reviewed and approved by Radiologist. <AttendingPhy></AttendingPhy> <FamilyPhy>Heartrpeston [place]reau</FamilyPhy> < PrimaryPhy>HeartmellyromanaZohaibFlandreau</PrimaryPhy> <UnitNumber>[id number]</UnitNumber> < VisitNumber>[id number]</VisitNumber> <PatientName>GRICELDA PEREZ</PatientName> <DateOfBirth>1945</DateOfBirth> <Location>[facility]</Location> <ServiceDate></ServiceDate> <MNE>ESINDI</MNE> <OrderingPhy>Rey Yang D.O.</ OrderingPhy> <OrderingPhyMNE>f rep ord dr perez</OrderingPhyMNE> <DictatingPhyMNE> f rep dict mne</DictatingPhyMNE> <CCListMNE>f rep ct mne</CCListMNE> < AdmittingPhyMNE>f pt admit dr perez</AdmittingPhyMNE> <AttendingPhyMNE>f pt attend dr perez</AttendingPhyMNE> <ConsultingPhyMNE>f pt consult dr perez</ConsultingPhyMNE> <FamilyPhyMNE>f pt fam dr perez</FamilyPhyMNE> <OtherPhyMNE>f pt other dr perez</OtherPhyMNE> < PrimaryPhyMNE>f pt prim care dr perez</PrimaryPhyMNE> <ReferringPhyMNE>f pt referring dr perez</ReferringPhyMNE> Impression Assessment and Plan Sepsis secondary to urinary tract infection/generalized fatigue and weakness/ dehydration-- Admitted to the medical surgical floor. Given ceftriaxone 1 g IV in the ED. Place on Zosyn 3.375 mg IV every 8 hours. Follow urine culture and sensitivity, as several resistant strains, including ESBL, have been found at [facility]. Hold furosemide. Gentle IV fluid rehydration. Change floor store daily to Floranex 4 tablets by mouth 3 times a day with meals. Hypertension/chronic kidney disease-- Continue carvedilol 25 mg by mouth twice a day with hold parameters, clonidine Catapres TTS2 patch using 2 patches weekly, hydralazine 25 mg by mouth 3 times a day. Hold furosemide 20 mg by mouth every morning and potassium chloride 10 mEq by mouth daily. Ex COPD-- Continue Advair discus, Flonase nasal spray, Combivent and Spiriva. GERD/constipation-- Continue pantoprazole 40 mg by mouth twice a day and Carafate 1 g by mouth before meals and at bedtime. Continue Senokot and MiraLAX. Anxiety with depression-- Continue Cymbalta 30 mg by mouth every morning, melatonin 5 mg by mouth at bedtime. Chronic pain management/muscle spasm-- Continue baclofen 10 mg by mouth 3 times a day, methadone 30 mg by mouth 3 times a day and prednisone 5 mg will be increased to 10 mg by mouth daily. Glaucoma-- Continue latanoprost. Gout-- Continue allopurinol 100 mg by mouth twice a day. 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 Y/N: Yes Risk Level: Moderate Given or contraindicated: Enoxaparin (Lovenox)SQ, SCD's Social Service Consult Lives in Senior Care
[2017-02-28] MEDS ORDERED: INFLUENZA ADMINISTRATION CHARGE ONE (23:15)
[2017-02-28] MEDS ORDERED: ONDANSETRON INJ 2 MG/ML 2 ML VIAL IV PRN (23:15)
[2017-02-28] MEDS ORDERED: INFLUENZA VACCINE HIGH DOSE 65+ 0.5 ML SYR IM. ONE (23:15)
[2017-02-28 23:30] VITALS: BP 179/107; PULSE 59; TEMP 36.4; O2SAT 99
[2017-02-28] MEDS ORDERED: PIPERACILL/TAZOBAC CONSULT ACTIVE PRN (23:45)
[2017-03-01] MEDS ORDERED: PIPERACILL/TAZOBAC IV 3.375 GM in DEXTROSE 5% 100ML IV ONE ×2
[2017-03-01] MEDS ORDERED: PIPERACILL/TAZOBAC IV 3.375 GM in DEXTROSE 5% 100ML IV SCH (04:00)
[2017-03-01] MEDS: SUCRALFATE 1 GM/10 ML UDC PO SCH ×4 (05:38→21:02)
[2017-03-01] MEDS ORDERED: PIPERACILL/TAZOBAC IV 3.375 GM in DEXTROSE 5% 100ML 100 ML IV SCH (06:00)
[2017-03-01 06:06] LABS: HEMATOCRIT 39.1 % (37-47); MEAN CELL VOLUME 88.3 fL (80-100); MEAN CORPUSCULAR HEMOGLOBIN 28.7 pg (25-34); MEAN CORPUSCULAR HGB CONC 32.5 g/dl (32-36); MEAN PLATELET VOLUME 12.7 fL (7.4-10.4); PLATELET COUNT 195 K/uL (130-400); RED BLOOD COUNT 4.43 M/uL (4.2-5.4); WHITE BLOOD COUNT 26.04 K/uL (4.8-10.8)
[2017-03-01] MEDS ORDERED: TRAMADOL HCL 50 MG TAB PO STA (06:16)
[2017-03-01 06:27] LABS: BASO % 0.1 %; BASO ABS # 0.02 K/uL (0-0.2); COMPLETE YES; EOS % 0.1 %; IG% 1.1 %; LYMPH % 5.8 %; LYMPH ABS # 1.51 K/uL (1.2-3.4); MONO % 7.4 %; NEUT % 85.5 %; OVALOCYTES 1+
[2017-03-01 06:30] LABS: INR 1.1 (0.9-1.1)
[2017-03-01 06:45] LABS: BUN/CREATININE RATIO 23.4 (10-20); CALCIUM 7.7 mg/dl (8.5-10.1); CREATININE 1.6 mg/dl (0.60-1.20); MAGNESIUM 2.1 mg/dl (1.8-2.4); POTASSIUM 3.3 mmol/L (3.5-5.1)
[2017-03-01 07:16] VITALS: BP 195/120; PULSE 79; TEMP 36.5; O2SAT 99
[2017-03-01] MEDS: BACLOFEN 10 MG TAB PO SCH ×3 (07:46→20:56)
[2017-03-01] MEDS: CARVEDILOL 25 MG TAB PO SCH ×2 (07:46→20:54)
[2017-03-01] MEDS: NYSTATIN POWDER 15GM BTL EXT SCH ×4 (07:50→20:00)
[2017-03-01] MEDS: FLUTICASONE/SALMETEROL 250/50 (ADVAIR) 14 PUFF/1 INHALER INH SCH ×2 (07:50→20:44)
[2017-03-01] MEDS: LACTOBACILLUS ACIDOPHILUS (FLORANEX) TAB PO SCH ×4 (07:53→17:00)
[2017-03-01] MEDS: POTASSIUM CHLORIDE 10 MEQ TABCR PO SCH (07:53)
[2017-03-01] MEDS: ENOXAPARIN 30 MG/0.3 ML SYR SQ SCH (07:53)
[2017-03-01] MEDS: DULOXETINE (CYMBALTA) 30 MG CAP PO SCH (07:53)
[2017-03-01] MEDS: POLYETHYLENE (MIRALAX) 17 GM PACK PO SCH (07:53)
[2017-03-01] MEDS: FERROUS SULFATE 325 MG TAB PO SCH (07:53)
[2017-03-01] MEDS: MULTIVITAMIN TAB PO SCH (07:54)
[2017-03-01] MEDS: SENNA 8.6 MG TAB PO SCH (07:54)
[2017-03-01] MEDS: PANTOprazole SOD 40 MG TAB PO SCH ×2 (07:54→20:00)
[2017-03-01] MEDS: CHOLECALCIFEROL 1000 INTER.UNIT TAB PO SCH (07:54)
[2017-03-01] MEDS: ALLOPURINOL 100 MG TAB PO SCH ×2 (07:54→20:00)
[2017-03-01] MEDS: TIOTROPIUM BROMIDE 5 PUFF/90 MCG INH INH SCH (07:55)
[2017-03-01] MEDS: IPRATROPIUM BROMIDE/ALBUTEROL respimat INH INH SCH ×4 (07:55→20:49)
[2017-03-01] MEDS: CALCITONIN SALMON NA 200 IU/AC 3.7 ML BTL NAE SCH (07:56)
[2017-03-01] MEDS: FLUTICASONE PROPIONATE NA SPR 16 GM BTL NAE SCH ×2 (07:56→20:50)
[2017-03-01] MEDS: CHECK CLONIDINE PATCH PLACEMENT SCH ×2 (07:58→17:51)
[2017-03-01] MEDS: METHADONE HCL 10 MG TAB PO SCH ×3 (09:57→21:01)
[2017-03-01] MEDS: NSS + 20MEQ KCL 1000ML 1,000 ML IV SCH (09:58)
[2017-03-01 10:01] VITALS: BP 151/93
[2017-03-01] MEDS ORDERED: INVANZ PHARMACY CONSULT IN PROGRESS PRN (11:00)
[2017-03-01] MEDS: CLONIDINE HCL 0.2 MG/24 HR TRANSDERM SYS TD SCH (11:23)
[2017-03-01] MEDS: ERTAPENEM IV 500 MG in SODIUM CHLORIDE 0.9% 50 ML IV SCH (11:24)
[2017-03-01 11:47] LABS: URINE APPEARANCE CLOUDY (CLEAR); URINE BILIRUBIN NEG (NEG); URINE COLOR YELLOW; URINE NITRITE POS (NEG); URINE SPECIFIC GRAVITY 1.019 (1.000-1.030); UROBILINOGEN NEG (NEG)
[2017-03-01 11:53] LABS: MANUAL MICROSCOPIC REQUIRED? NO; REVIEW REQ? NO
[2017-03-01] MEDS ORDERED: DAPTOmycin IV 330 MG in SODIUM CHLORIDE 0.9% 50ML 50 ML IV SCH (14:00)
[2017-03-01] MEDS ORDERED: DAPTOmycin IV 350 MG in SODIUM CHLORIDE 0.9% 50ML 50 ML IV SCH (14:00)
[2017-03-01 15:16] VITALS: BP 183/99; PULSE 73; TEMP 36.6; O2SAT 99
--- NOTE | 2017-03-01 19:32 | Progress Note ---
Subjective Date of Service: Mar 01, 2017. Subjective Pt evaluation today including: conversation w/ patient, physical exam, chart review, lab review, review of studies (CT abd/pelvis, cxr), review of inpatient medication list Pain: lower abdomen, over the bladder PO Intake: poor Voiding: incontinence, voiding difficulty patient c/o suprapubic pain she feels "terrible" denies any cough, sob had copious diarrhea a few days ago - now resolved also had emesis - resolved very little appetite was apparently on oral abx at [facility] for UTI prior to coming to [facility] Problem List Medical Problems: (1) Altered mental status Status: Acute (2) Anemia Status: Acute (3) Bilateral pneumonia Status: Acute (4) CHF (congestive heart failure) Status: Acute (5) Chronic Kidney Disease, Stage Iii (Moderate) Status: Chronic (6) COPD exacerbation Status: Acute (7) COPD exacerbation Status: Acute (8) Crystal arthritis Status: Chronic (9) Dehydration Status: Acute (10) Duodenal bulb ulcer Status: Chronic (11) Failure of outpatient treatment Status: Acute (12) Failure of outpatient treatment Status: Acute (13) Gout Status: Chronic (14) Hyperlipidemia Nec/Nos Status: Chronic (15) Hypertension Status: Chronic (16) Hypoxemia Status: Acute (17) Hypoxia Status: Acute (18) Hypoxia Status: Acute (19) Hypoxia Status: Acute (20) Hypoxia Status: Acute (21) Lumbar compression fracture Status: Chronic (22) Opiate use Status: Chronic (23) Osteoporosis Status: Chronic (24) Peripheral edema Status: Acute (25) Pneumonia Status: Acute (26) Pneumonia Status: Acute (27) Pneumonia involving right lung Status: Acute (28) Respiratory acidosis Status: Acute (29) Respiratory distress Status: Acute (30) Right renal artery stenosis Status: Chronic (31) Secondary hyperparathyroidism Status: Chronic (32) UTI (urinary tract infection) Status: Acute Review of Systems Constitutional: No fever, No chills Respiratory: No shortness of breath Cardiac: No chest pain Abdomen: + pain Female : + see HPI Objective Vital Signs Date Time Temp Pulse Resp B/P (MAP) Pulse Ox O2 Delivery O2 Flow Rate FiO2 03/01/17 16:00 Nasal Cannula 4.0 03/01/17 15:16 36.6 73 20 183/99 (127) 99 4.0 03/01/17 10:01 151/93 (112) 03/01/17 08:00 Nasal Cannula 4.0 03/01/17 07:16 36.5 79 16 195/120 (145) 99 4.0 02/28/17 23:30 36.4 59 20 179/107 (131) 99 Nasal Cannula 4.0 02/28/17 22:22 115 17 144/115 95 Nasal Cannula 4.0 02/28/17 21:34 Nasal Cannula 02/28/17 21:23 97 17 123/89 95 Room Air 02/28/17 20:49 111 02/28/17 19:44 96 18 201/136 94 Room Air Physical Exam General Appearance: no apparent distress, + pertinent finding (looks ill but nontoxic) ENT: + pertinent finding (MM slightly dry) Neck: no JVD Respiratory/Chest: lungs clear, no respiratory distress, no accessory muscle use Cardiovascular: regular rate, rhythm, no gallop, no murmur Abdomen: normal bowel sounds, soft, no organomegaly, + tenderness (suprapubic; no peritoneal signs) Extremities: no pedal edema Neurologic/Psychiatric: alert, oriented x 3 Laboratory Results Last 24 Hours Test 03/01/17 05:44 03/01/17 11:15 White Blood Count 26.04 K/uL Red Blood Count 4.43 M/uL Hemoglobin 12.7 g/dL Hematocrit 39.1 % Mean Corpuscular Volume 88.3 fL Mean Corpuscular Hemoglobin 28.7 pg Mean Corpuscular Hemoglobin Concent 32.5 g/dl Platelet Count 195 K/uL Mean Platelet Volume 12.7 fL Neutrophils (%) (Auto) 85.5 % Lymphocytes (%) (Auto) 5.8 % Monocytes (%) (Auto) 7.4 % Eosinophils (%) (Auto) 0.1 % Basophils (%) (Auto) 0.1 % Neutrophils # (Auto) 22.27 K/uL Lymphocytes # (Auto) 1.51 K/uL Monocytes # (Auto) 1.93 K/uL Eosinophils # (Auto) 0.03 K/uL Basophils # (Auto) 0.02 K/uL RDW Standard Deviation 54.6 fL RDW Coefficient of Variation 17.0 % Immature Granulocyte % (Auto) 1.1 % Immature Granulocyte # (Auto) 0.28 K/uL Basophilic Stippling OCCASIONAL Ovalocytes 1+ Prothrombin Time 12.0 SECONDS Prothromb Time International Ratio 1.1 Activated Partial Thromboplast Time 26.5 SECONDS Partial Thromboplastin Ratio 1.0 Sodium Level 141 mmol/L Potassium Level 3.3 mmol/L Chloride Level 102 mmol/L Carbon Dioxide Level 30 mmol/L Anion Gap 9.0 mmol/L Blood Urea Nitrogen 37 mg/dl Creatinine 1.60 mg/dl Est Creatinine Clear Calc Drug Dose 25.2 ml/min Estimated GFR () 37.7 Estimated GFR (Non- 32.5 BUN/Creatinine Ratio 23.4 Random Glucose 90 mg/dl Calcium Level 7.7 mg/dl Magnesium Level 2.1 mg/dl Urine Color YELLOW Urine Appearance CLOUDY Urine pH 7.0 Urine Specific Bynum 1.019 Urine Protein 3+ Urine Glucose (UA) NEG Urine Ketones NEG Urine Occult Blood 2+ Urine Nitrite POS Urine Bilirubin NEG Urine Urobilinogen NEG Urine Leukocyte Esterase LARGE Urine WBC (Auto) >30 /hpf Urine RBC (Auto) 5-10 /hpf Urine Hyaline Casts (Auto) 1-5 /lpf Urine Epithelial Cells (Auto) 5-10 /lpf Urine Bacteria (Auto) 1+ Assessment and Plan 71yo male: 1. suspected sepsis, secondary to UTI - urine cx from 02/28 with contamination. I repeated the urine cx today from I/O specimen. she has h/o ESBL pathogens and VRE - will change zosyn to ertapenem and add daptomycin. other source would be GI tract - send stool for c. diff toxin & stool cx. repeat BMP, CBC in am 2. chronic hypoxic resp failure - stable on home O2 amount 3. CKD stage 4 with superimposed acute kidney injury - DIONI resolved. Cr now at baseline. 4. COPD - stable/controlled. Cont inhalers Cont prednisone Consider stress dosing 5. HTN - labile; this is typical for her in the hospital. Continue complex regimen of meds. 6. chronic pain syndrome - continue all home meds (methadone, etc). Add dilaudid 0.5mg IV q3h prn 7. DVT proph - lovenox 8. GERD - PPI 9. chronic diastolic CHF - compensated; caution with IVF 10. hypokalemia - replace IV; repeat BMP am Continued [facility] stay due to: inadequate po fluid intake, inadequate oral pain control, multiple IV medications needed Discharge planning: [facility]pc facility
[2017-03-01] MEDS ORDERED: NON-FORMULARY MEDICATION (Melatonin (Melatonin Maximum Strengt) 5 MG) PO SCH (21:00)
[2017-03-01] MEDS: LATANOPROST 0.005% OP SOLN 2.5 ML BTL OPR SCH ×2 (21:02→21:05)
[2017-03-01] MEDS: HYDROmorphone INJ 0.5 MG/0.5 ML SYR IV PRN (22:11)
[2017-03-01 23:06] VITALS: BP 164/99; PULSE 58; TEMP 36.9; O2SAT 100
[2017-03-02] MEDS: CHECK CLONIDINE PATCH PLACEMENT SCH ×4 (00:22→23:48)
[2017-03-02] MEDS: NSS + 20MEQ KCL 1000ML 1,000 ML IV SCH ×2 (00:22→11:36)
[2017-03-02] MEDS ORDERED: ZOLPIDEM TARTRATE 5 MG TAB PO STA (00:38)
[2017-03-02] MEDS: HYDROmorphone INJ 0.5 MG/0.5 ML SYR IV PRN ×2 (02:09→09:33)
[2017-03-02] MEDS: SUCRALFATE 1 GM/10 ML UDC PO SCH ×4 (06:18→19:49)
[2017-03-02 07:06] LABS: BUN/CREATININE RATIO 20.3 (10-20); CALCIUM 7.1 mg/dl (8.5-10.1); CREATININE 1.3 mg/dl (0.60-1.20); POTASSIUM 3.4 mmol/L (3.5-5.1)
[2017-03-02] MEDS: NYSTATIN POWDER 15GM BTL EXT SCH ×3 (07:07→19:52)
[2017-03-02 07:24] VITALS: BP 185/76; PULSE 63; TEMP 36.7; O2SAT 96
[2017-03-02] MEDS: PANTOprazole SOD 40 MG TAB PO SCH ×2 (08:00→19:48)
[2017-03-02] MEDS: MULTIVITAMIN TAB PO SCH (08:00)
[2017-03-02] MEDS: POLYETHYLENE (MIRALAX) 17 GM PACK PO SCH (08:00)
[2017-03-02] MEDS: ALLOPURINOL 100 MG TAB PO SCH ×2 (08:00→19:49)
[2017-03-02] MEDS: LACTOBACILLUS ACIDOPHILUS (FLORANEX) TAB PO SCH ×3 (08:00→19:38)
[2017-03-02] MEDS: CHOLECALCIFEROL 1000 INTER.UNIT TAB PO SCH (08:00)
[2017-03-02] MEDS: FERROUS SULFATE 325 MG TAB PO SCH (08:00)
[2017-03-02] MEDS: POTASSIUM CHLORIDE 10 MEQ TABCR PO SCH (08:00)
[2017-03-02] MEDS: SENNA 8.6 MG TAB PO SCH (08:00)
[2017-03-02] MEDS: DULOXETINE (CYMBALTA) 30 MG CAP PO SCH (08:00)
[2017-03-02 08:22] LABS: BASO % 0.1 %; BASO ABS # 0.03 K/uL (0-0.2); COMPLETE YES; EOS % 0.6 %; IG% 1.1 %; LYMPH % 7.6 %; LYMPH ABS # 1.61 K/uL (1.2-3.4); MONO % 10.6 %
[2017-03-02 08:44] LABS: HEMATOCRIT 36.9 % (37-47); MEAN CORPUSCULAR HEMOGLOBIN 27.3 pg (25-34); MEAN CORPUSCULAR HGB CONC 30.4 g/dl (32-36); MEAN PLATELET VOLUME 13.2 fL (7.4-10.4); PLATELET COUNT 145 K/uL (130-400); WHITE BLOOD COUNT 21.21 K/uL (4.8-10.8)
[2017-03-02] MEDS: CARVEDILOL 25 MG TAB PO SCH ×2 (09:26→19:50)
[2017-03-02] MEDS: METHADONE HCL 10 MG TAB PO SCH ×3 (09:26→20:01)
[2017-03-02] MEDS: FLUTICASONE PROPIONATE NA SPR 16 GM BTL NAE SCH ×2 (09:29→19:46)
[2017-03-02] MEDS: BACLOFEN 10 MG TAB PO SCH ×3 (09:29→19:47)
[2017-03-02] MEDS: FLUTICASONE/SALMETEROL 250/50 (ADVAIR) 14 PUFF/1 INHALER INH SCH ×2 (09:30→19:41)
[2017-03-02] MEDS: TIOTROPIUM BROMIDE 5 PUFF/90 MCG INH INH SCH (09:30)
[2017-03-02] MEDS: IPRATROPIUM BROMIDE/ALBUTEROL respimat INH INH SCH ×4 (09:31→19:45)
[2017-03-02] MEDS: ENOXAPARIN 30 MG/0.3 ML SYR SQ SCH (09:32)
[2017-03-02] MEDS: CALCITONIN SALMON NA 200 IU/AC 3.7 ML BTL NAE SCH (09:32)
[2017-03-02 10:43] VITALS: BP 163/90
[2017-03-02] MEDS: ERTAPENEM IV 500 MG in SODIUM CHLORIDE 0.9% 50 ML IV SCH (11:32)
[2017-03-02] MEDS ORDERED: ZOLPIDEM TARTRATE 5 MG TAB PO PRN (13:00)
[2017-03-02 14:02] VITALS: BP 165/92
[2017-03-02] MEDS: HYDROmorphone INJ 1 MG/ML SYR IV PRN ×3 (14:10→23:53)
--- NOTE | 2017-03-02 14:38 | Progress Note ---
Subjective Date of Service: Mar 02, 2017. Subjective Pt evaluation today including: conversation w/ patient, physical exam, chart review, lab review, review of inpatient medication list Pain: back; abdomen improved today PO Intake: poor yesterday, slightly better today Voiding: walker catheter in place overall she feels better today less abd pain no nausea, emesis, or diarrhea in fact no stool in several days (had diarrhea at [facility] prior to coming to [facility]) no pulmonary complaints requests sleep aid for tonight and requests increase in dilaudid for back pain Problem List Medical Problems: (1) Altered mental status Status: Acute (2) Anemia Status: Acute (3) Bilateral pneumonia Status: Acute (4) CHF (congestive heart failure) Status: Acute (5) Chronic Kidney Disease, Stage Iii (Moderate) Status: Chronic (6) COPD exacerbation Status: Acute (7) COPD exacerbation Status: Acute (8) Crystal arthritis Status: Chronic (9) Dehydration Status: Acute (10) Duodenal bulb ulcer Status: Chronic (11) Failure of outpatient treatment Status: Acute (12) Failure of outpatient treatment Status: Acute (13) Gout Status: Chronic (14) Hyperlipidemia Nec/Nos Status: Chronic (15) Hypertension Status: Chronic (16) Hypoxemia Status: Acute (17) Hypoxia Status: Acute (18) Hypoxia Status: Acute (19) Hypoxia Status: Acute (20) Hypoxia Status: Acute (21) Lumbar compression fracture Status: Chronic (22) Opiate use Status: Chronic (23) Osteoporosis Status: Chronic (24) Peripheral edema Status: Acute (25) Pneumonia Status: Acute (26) Pneumonia Status: Acute (27) Pneumonia involving right lung Status: Acute (28) Respiratory acidosis Status: Acute (29) Respiratory distress Status: Acute (30) Right renal artery stenosis Status: Chronic (31) Secondary hyperparathyroidism Status: Chronic (32) UTI (urinary tract infection) Status: Acute Review of Systems Constitutional: No fever Respiratory: No cough, No shortness of breath Cardiac: No chest pain, No orthopnea Abdomen: No pain, No nausea, No vomiting, No diarrhea Objective Vital Signs Date Time Temp Pulse Resp B/P (MAP) Pulse Ox O2 Delivery O2 Flow Rate FiO2 03/02/17 14:02 165/92 (116) 03/02/17 10:43 163/90 (114) 03/02/17 08:00 Nasal Cannula 4.0 10/5/17 07:24 36.7 63 18 185/76 (112) 96 03/02/17 00:00 Nasal Cannula 4.0 03/01/17 23:06 36.9 58 20 164/99 (120) 100 Nasal Cannula 4.0 03/01/17 16:00 Nasal Cannula 4.0 03/01/17 15:16 36.6 73 20 183/99 (127) 99 4.0 Physical Exam General Appearance: no apparent distress, + pertinent finding (chronically ill appearing but looks better than yesterday) ENT: pharynx normal Neck: no JVD Respiratory/Chest: lungs clear, no respiratory distress, no accessory muscle use Cardiovascular: regular rate, rhythm, no gallop, no murmur Abdomen: normal bowel sounds, non tender, soft, no organomegaly, + distended ( modestly ) Extremities: no pedal edema Neurologic/Psychiatric: alert, oriented x 3 Comments: back - severe kyphosis; nontender to palpation over t-spine or l-spine mild paraspinal tenderness in the lumbar region Laboratory Results Last 24 Hours Test 03/02/17 05:57 White Blood Count 21.21 K/uL Red Blood Count 4.10 M/uL Hemoglobin 11.2 g/dL Hematocrit 36.9 % Mean Corpuscular Volume 90.0 fL Mean Corpuscular Hemoglobin 27.3 pg Mean Corpuscular Hemoglobin Concent 30.4 g/dl Platelet Count 145 K/uL Mean Platelet Volume 13.2 fL Neutrophils (%) (Auto) 80.0 % Lymphocytes (%) (Auto) 7.6 % Monocytes (%) (Auto) 10.6 % Eosinophils (%) (Auto) 0.6 % Basophils (%) (Auto) 0.1 % Neutrophils # (Auto) 16.96 K/uL Lymphocytes # (Auto) 1.61 K/uL Monocytes # (Auto) 2.24 K/uL Eosinophils # (Auto) 0.13 K/uL Basophils # (Auto) 0.03 K/uL RDW Standard Deviation 55.6 fL RDW Coefficient of Variation 17.1 % Immature Granulocyte % (Auto) 1.1 % Immature Granulocyte # (Auto) 0.24 K/uL Sodium Level 144 mmol/L Potassium Level 3.4 mmol/L Chloride Level 110 mmol/L Carbon Dioxide Level 27 mmol/L Anion Gap 7.0 mmol/L Blood Urea Nitrogen 26 mg/dl Creatinine 1.30 mg/dl Est Creatinine Clear Calc Drug Dose 31.0 ml/min Estimated GFR () 48.5 Estimated GFR (Non- 41.8 BUN/Creatinine Ratio 20.3 Random Glucose 57 mg/dl Calcium Level 7.1 mg/dl Assessment and Plan 71yo male: 1. suspected sepsis, secondary to UTI - overall she is improved. Improving WBC count. Unfortunately blood cx's were not sent at time of presentation and before abx were started; will defer on these. urine cx from 02/28 with contamination despite it being an I/O cath sample. I repeated the culture with fresh I/O sample and this, too, was negative/ contamination. I still feel she indeed had a UTI given her suprapubic pain, cloudy urine, and u /a findings. Unfortunately we are treating her blindly since we don't have a specific pathogen. she has h/o ESBL pathogens and VRE - will continue the ertapenem and daptomycin. will place ID consultation. other source would be GI tract however she has had no stool to check c diff or culture; thus, doubt GI source 2. chronic hypoxic resp failure - stable on home O2 amount 3. CKD stage 4 with superimposed acute kidney injury - DIONI resolved. Cr now at baseline. d/c fluids. 4. COPD - stable/controlled. Cont inhalers Cont prednisone but giving her stress doses; 40mg today, then 30mg tomorrow, and so forth 5. HTN - labile; this is typical for her in the hospital. Continue complex regimen of meds. Adjust meds if BPs continue to remain high. 6. chronic pain syndrome - continue all home meds (methadone, etc). Cont dilaudid prn. Increased to 1mg today. 7. DVT proph - lovenox 8. GERD - PPI 9. chronic diastolic CHF - compensated. Resume lasix tomorrow. 10. hypokalemia - resolving; continue PO supplementation. 11. h/o severe osteoporosis with numerous compression fractures and several ones s/o kyphoplasty. Now with paraspinal back pain. She reports it is different pain than her previous compression fractures. Hold off on additional imaging at this time. Dilaudid prn K-pad heating pad prn 12. PT, OT evals 13. dispo - [facility] Continued [facility] stay due to: inadequate po fluid intake, inadequate oral pain control, multiple IV medications needed Discharge planning: senior care facility
--- NOTE | 2017-03-02 14:59 | Progress Note ---
Progress Note Date of Service Mar 02, 2017. Progress Note ID Consult Dictated #[id number] A/P: 1. UTI 2. Leukocytosis -Continue current abx, will need 7 days total -follow cultures, wbc, -Thank you
--- NOTE | 2017-03-02 15:32 | INFECT. DISEASE CONSULTATION ---
DATE OF CONSULTATION: 03/02/2017 REQUESTING PHYSICIAN: Dr. Nance. HISTORY OF PRESENT ILLNESS: This is a 71-year-old female who was admitted from a local snf secondary to abdominal pain and urinary tract infection previously diagnosed. She was on oral antibiotics and was not having significant improvement with this. She reportedly has a history of VRE and ESBL in the urine. She was placed empirically yesterday on daptomycin and ertapenem. Infectious disease was consulted for daptomycin use. She had a significantly elevated white blood cell count of 30 on admission and this has improved to 21. Her creatinine was elevated at 1.8 and this has improved to 1.3. Her initial urinalysis had 10-30 WBCs and 4+ bacteria; however, her urine and was considered contaminant. Repeat urine study was done yesterday, which shows greater than 30 WBCs and +1 bacteria. Cultures are pending. She is tolerating antibiotics well. She does admit to having nausea, vomiting and diarrhea prior to admission, but states this has completely resolved. She is eating without difficulty now. She states her abdominal pain is significantly improved. She denies any fevers or chills. She has no chest pain, cough or shortness of breath. All remaining review of systems is reviewed and are unremarkable. PAST MEDICAL HISTORY: Significant for ambulatory dysfunction, cholelithiasis, chronic kidney disease, fracture of lumbar vertebrae, arthritis, duodenal ulcer, history of DVTs, fecal impaction, gout, Hodgkin's lymphoma, high cholesterol, hypertension, chronic pain, renal artery stenosis, CHF, nonnarcotic and methadone withdrawal, osteoporosis, and hyperparathyroidism. PAST SURGICAL HISTORY: Significant for renal artery stent placement and kyphoplasty. FAMILY HISTORY: Noncontributory. SOCIAL HISTORY: Significant for a history of tobacco use. She currently lives at [facility]. ALLERGIES: INCLUDE AZITHROMYCIN AND LEVAQUIN. CURRENT MEDICATIONS: Include clonidine patch, potassium, Dilaudid, Ambien eyedrops, daptomycin, ertapenem, Allopurinol, baclofen, calcitonin nasal spray, Coreg, vitamin D, Cymbalta, Advair, Flonase, hydralazine, Combivent, methadone, multivitamins, nystatin powder, Protonix, prednisone, Senokot, Spiriva, iron, MiraLax, Catapres, Lovenox, Floranex, Carafate, Zofran, Tylenol, Dulcolax, milk of magnesia and Fleet enema. PHYSICAL EXAMINATION: VITAL SIGNS: She is afebrile, pulse 63, respiratory rate is 18, blood pressure 165/92, and oxygen saturation is 96%-100% on 4 liters nasal cannula. GENERAL: She is awake, alert and oriented x3. She is in no acute distress. HEENT: Mucous membranes are moist. Extraocular muscles are intact. HEART: Regular. LUNGS: Clear bilaterally. ABDOMEN: Soft and nondistended. There is no lower extremity edema. SKIN: Without rash. LABORATORY STUDIES: CBC reveals a white blood cell count of 21, hemoglobin 11.2, and platelets are 145. Chemistry panel reveals a sodium of 144, potassium 3.4, chloride 110, bicarbonate 27, BUN 26, creatinine 1.3, and glucose is 57. Urinalysis and culture are as above. No blood cultures were obtained. CT of the abdomen and pelvis was unremarkable in the ER. ASSESSMENT AND PLAN: Urinary tract infection with a history of multidrug resistant organisms. She will continue on daptomycin and ertapenem likely for a total of 7 days. Her leukocytosis will be monitored as this seems to be improving with antibiotics. Thank you for this consultation. KISHOR
[2017-03-02 16:57] VITALS: BP 168/89; PULSE 57; TEMP 36.5; O2SAT 98
[2017-03-02] MEDS: LATANOPROST 0.005% OP SOLN 2.5 ML BTL OPR SCH (22:51)
[2017-03-03] VITALS (11 sets, daily range): BP systolic 160–198; BP diastolic 74–101; PULSE 54–75; TEMP 36.4–36.9; O2SAT 96–99
[2017-03-03] MEDS: NSS + 20MEQ KCL 1000ML 1,000 ML IV SCH (00:37)
[2017-03-03] MEDS: HYDROmorphone INJ 1 MG/ML SYR IV PRN ×4 (03:38→21:06)
[2017-03-03] MEDS: SUCRALFATE 1 GM/10 ML UDC PO SCH ×4 (05:31→21:13)
[2017-03-03] MEDS: BACLOFEN 10 MG TAB PO SCH ×3 (07:49→19:34)
[2017-03-03] MEDS: CARVEDILOL 25 MG TAB PO SCH ×2 (07:50→21:10)
[2017-03-03 07:51] LABS: BASO % 0.1 %; BASO ABS # 0.01 K/uL (0-0.2); COMPLETE YES; EOS % 0.1 %; HEMATOCRIT 32.2 % (37-47); IG% 0.9 %; LYMPH % 7.1 %; LYMPH ABS # 0.98 K/uL (1.2-3.4); MEAN CORPUSCULAR HEMOGLOBIN 28.5 pg (25-34); MEAN PLATELET VOLUME 13.1 fL (7.4-10.4); MONO % 10.1 %; NEUT % 81.7 %; PLATELET COUNT 152 K/uL (130-400); RED BLOOD COUNT 3.62 M/uL (4.2-5.4); WHITE BLOOD COUNT 13.83 K/uL (4.8-10.8)
[2017-03-03] MEDS: DULOXETINE (CYMBALTA) 30 MG CAP PO SCH (07:55)
[2017-03-03] MEDS: MULTIVITAMIN TAB PO SCH (07:55)
[2017-03-03] MEDS: CHECK CLONIDINE PATCH PLACEMENT SCH ×3 (07:55→23:19)
[2017-03-03] MEDS: PANTOprazole SOD 40 MG TAB PO SCH ×2 (07:55→19:34)
[2017-03-03] MEDS: LACTOBACILLUS ACIDOPHILUS (FLORANEX) TAB PO SCH ×3 (07:55→17:00)
[2017-03-03] MEDS: FERROUS SULFATE 325 MG TAB PO SCH (07:55)
[2017-03-03] MEDS: SENNA 8.6 MG TAB PO SCH (07:55)
[2017-03-03] MEDS: CHOLECALCIFEROL 1000 INTER.UNIT TAB PO SCH (07:56)
[2017-03-03] MEDS: ALLOPURINOL 100 MG TAB PO SCH ×2 (07:56→19:34)
[2017-03-03] MEDS: POLYETHYLENE (MIRALAX) 17 GM PACK PO SCH (08:00)
[2017-03-03] MEDS: NYSTATIN POWDER 15GM BTL EXT SCH ×3 (08:00→19:27)
[2017-03-03 08:13] LABS: BUN/CREATININE RATIO 18.4 (10-20); CALCIUM 7.4 mg/dl (8.5-10.1); MAGNESIUM 1.9 mg/dl (1.8-2.4); POTASSIUM 4.1 mmol/L (3.5-5.1)
[2017-03-03] MEDS: METHADONE HCL 10 MG TAB PO SCH ×3 (08:50→19:32)
[2017-03-03] MEDS: FLUTICASONE PROPIONATE NA SPR 16 GM BTL NAE SCH ×2 (08:51→19:28)
[2017-03-03] MEDS: ENOXAPARIN 30 MG/0.3 ML SYR SQ SCH (08:52)
[2017-03-03] MEDS: TIOTROPIUM BROMIDE 5 PUFF/90 MCG INH INH SCH (08:52)
[2017-03-03] MEDS: CALCITONIN SALMON NA 200 IU/AC 3.7 ML BTL NAE SCH (08:52)
[2017-03-03] MEDS: FLUTICASONE/SALMETEROL 250/50 (ADVAIR) 14 PUFF/1 INHALER INH SCH ×2 (08:53→19:27)
[2017-03-03] MEDS: IPRATROPIUM BROMIDE/ALBUTEROL respimat INH INH SCH ×4 (08:54→21:12)
[2017-03-03] MEDS: POTASSIUM CHLORIDE 10 MEQ TABCR PO SCH (08:56)
[2017-03-03] MEDS ORDERED: FUROSEMIDE INJ 10 MG in SYRINGE 0 ML IV ONE (10:45)
[2017-03-03] MEDS: ERTAPENEM IV 1,000 MG in SODIUM CHLORIDE 0.9% 50ML 50 ML IV SCH (11:09)
--- NOTE | 2017-03-03 14:19 | DIAGNOSTIC IMAGING REPORT ---
DOPPLER ULTRASOUND OF THE RENAL ARTERIES CLINICAL HISTORY: Renal artery stenosis. COMPARISON STUDY: Renal artery ultrasound dated 07/28/2016. TECHNIQUE: Doppler sonography of the renal arteries was performed to assess renal artery stenosis. Images are reviewed in the transverse and longitudinal planes. The intrarenal arterial waveforms were not well visualized. FINDINGS: The kidneys appear atrophic and echogenic consistent with medical renal disease. The right kidney measures 9.4 cm in length and the left kidney measures 8.3 cm in length. There is no hydronephrosis. On the right, intrarenal arterial resistive indices measured 1.0. These were not well assessed. Intrarenal arterial waveforms are normal with brisk upstrokes. The right renal arterial waveform is normal, and velocities within the right renal artery measure up to 30 cm/sec. The right renal vein is patent. On the left, intrarenal arterial resistive indices measured 1.0. These were not well assessed. Intrarenal arterial waveforms are normal with brisk upstrokes. The left renal arterial waveform is normal, and velocities within the distal left renal artery measure up to 11 cm/sec. The majority of the left renal artery was not well visualized. The left renal vein is patent. The abdominal aorta is patent. Velocities within the abdominal aorta measure up to 75 cm/s. IMPRESSION: 1. The kidneys are atrophic and echogenic consistent with medical renal disease. 2. The renal arteries were not well-visualized. There is no sonographic evidence of renal artery stenosis on the images obtained. Electronically signed by: Tej Bernard M.D. 03/03/2017 2:17 PM Dictated Date/Time: 03/03/2017 2:14 PM
[2017-03-03] MEDS: DAPTOmycin IV 350 MG in SODIUM CHLORIDE 0.9% 50ML 50 ML IV SCH (14:25)
--- NOTE | 2017-03-03 15:28 | Progress Note ---
Subjective Date of Service: Mar 03, 2017. Subjective pt remains on emperic abx. wbc decreased to 13 today, was 30 on admission. initial urine culture with contaminant but was on abx at time of admission. No evidence of MARITZA on imaging. remains afebrile. tolerating abx. Problem List Medical Problems: (1) Altered mental status Status: Acute (2) Anemia Status: Acute (3) Bilateral pneumonia Status: Acute (4) CHF (congestive heart failure) Status: Acute (5) Chronic Kidney Disease, Stage Iii (Moderate) Status: Chronic (6) COPD exacerbation Status: Acute (7) COPD exacerbation Status: Acute (8) Crystal arthritis Status: Chronic (9) Dehydration Status: Acute (10) Duodenal bulb ulcer Status: Chronic (11) Failure of outpatient treatment Status: Acute (12) Failure of outpatient treatment Status: Acute (13) Gout Status: Chronic (14) Hyperlipidemia Nec/Nos Status: Chronic (15) Hypertension Status: Chronic (16) Hypoxemia Status: Acute (17) Hypoxia Status: Acute (18) Hypoxia Status: Acute (19) Hypoxia Status: Acute (20) Hypoxia Status: Acute (21) Lumbar compression fracture Status: Chronic (22) Opiate use Status: Chronic (23) Osteoporosis Status: Chronic (24) Peripheral edema Status: Acute (25) Pneumonia Status: Acute (26) Pneumonia Status: Acute (27) Pneumonia involving right lung Status: Acute (28) Respiratory acidosis Status: Acute (29) Respiratory distress Status: Acute (30) Right renal artery stenosis Status: Chronic (31) Secondary hyperparathyroidism Status: Chronic (32) UTI (urinary tract infection) Status: Acute Objective Vital Signs Date Time Temp Pulse Resp B/P (MAP) Pulse Ox O2 Delivery O2 Flow Rate FiO2 03/03/17 14:29 36.4 60 18 163/84 (110) 97 Nasal Cannula 03/03/17 11:08 160/88 (112) 03/03/17 08:00 Nasal Cannula 4.0 03/03/17 07:56 75 175/85 (115) 03/03/17 07:48 36.6 54 20 198/74 (115) 99 03/03/17 01:13 160/87 (111) 03/03/17 00:06 36.5 71 16 179/78 (111) 96 4.0 03/02/17 23:40 Nasal Cannula 4.0 03/02/17 16:57 36.5 57 20 168/89 (115) 98 Nasal Cannula 4.0 03/02/17 16:00 Nasal Cannula 4.0 Laboratory Results Item Value Date Time Urine Culture - Final Complete 03/01/17 1115 Urine,Catheterized THREE TYPES OF ORGANISMS PRESENT, ALL... Last 24 Hours Test 03/03/17 07:19 White Blood Count 13.83 K/uL Red Blood Count 3.62 M/uL Hemoglobin 10.3 g/dL Hematocrit 32.2 % Mean Corpuscular Volume 89.0 fL Mean Corpuscular Hemoglobin 28.5 pg Mean Corpuscular Hemoglobin Concent 32.0 g/dl Platelet Count 152 K/uL Mean Platelet Volume 13.1 fL Neutrophils (%) (Auto) 81.7 % Lymphocytes (%) (Auto) 7.1 % Monocytes (%) (Auto) 10.1 % Eosinophils (%) (Auto) 0.1 % Basophils (%) (Auto) 0.1 % Neutrophils # (Auto) 11.32 K/uL Lymphocytes # (Auto) 0.98 K/uL Monocytes # (Auto) 1.39 K/uL Eosinophils # (Auto) 0.01 K/uL Basophils # (Auto) 0.01 K/uL RDW Standard Deviation 55.3 fL RDW Coefficient of Variation 16.9 % Immature Granulocyte % (Auto) 0.9 % Immature Granulocyte # (Auto) 0.12 K/uL Sodium Level 145 mmol/L Potassium Level 4.1 mmol/L Chloride Level 112 mmol/L Carbon Dioxide Level 27 mmol/L Anion Gap 6.0 mmol/L Blood Urea Nitrogen 18 mg/dl Creatinine 1.00 mg/dl Est Creatinine Clear Calc Drug Dose 40.3 ml/min Estimated GFR () 66.6 Estimated GFR (Non- 57.4 BUN/Creatinine Ratio 18.4 Random Glucose 72 mg/dl Calcium Level 7.4 mg/dl Magnesium Level 1.9 mg/dl Assessment and Plan (1) UTI (urinary tract infection) Assessment & Plan: continue current abx, would give 7 days total. (2) Leukocytosis Assessment & Plan: resolving. Continued [facility] stay due to: inadequate po fluid intake, inadequate oral pain control, multiple IV medications needed Discharge planning: residential facility
[2017-03-03] MEDS: CLONIDINE HCL 0.2 MG/24 HR TRANSDERM SYS TD SCH (17:18)
--- NOTE | 2017-03-03 19:00 | Progress Note ---
Subjective Date of Service: Mar 03, 2017. Subjective pts biggest concern was to increase her ambien, no pain and mentally more clear Problem List Medical Problems: (1) Altered mental status Status: Acute (2) Anemia Status: Acute (3) Bilateral pneumonia Status: Acute (4) CHF (congestive heart failure) Status: Acute (5) Chronic Kidney Disease, Stage Iii (Moderate) Status: Chronic (6) COPD exacerbation Status: Acute (7) COPD exacerbation Status: Acute (8) Crystal arthritis Status: Chronic (9) Dehydration Status: Acute (10) Duodenal bulb ulcer Status: Chronic (11) Failure of outpatient treatment Status: Acute (12) Failure of outpatient treatment Status: Acute (13) Gout Status: Chronic (14) Hyperlipidemia Nec/Nos Status: Chronic (15) Hypertension Status: Chronic (16) Hypoxemia Status: Acute (17) Hypoxia Status: Acute (18) Hypoxia Status: Acute (19) Hypoxia Status: Acute (20) Hypoxia Status: Acute (21) Lumbar compression fracture Status: Chronic (22) Opiate use Status: Chronic (23) Osteoporosis Status: Chronic (24) Peripheral edema Status: Acute (25) Pneumonia Status: Acute (26) Pneumonia Status: Acute (27) Pneumonia involving right lung Status: Acute (28) Respiratory acidosis Status: Acute (29) Respiratory distress Status: Acute (30) Right renal artery stenosis Status: Chronic (31) Secondary hyperparathyroidism Status: Chronic (32) UTI (urinary tract infection) Status: Acute Review of Systems Constitutional: No fever, No chills Respiratory: No cough Cardiac: No chest pain, No orthopnea Abdomen: No pain, No nausea Objective Vital Signs Date Time Temp Pulse Resp B/P (MAP) Pulse Ox O2 Delivery O2 Flow Rate FiO2 03/03/17 07:56 75 175/85 (115) 03/03/17 07:48 36.6 54 20 198/74 (115) 99 03/03/17 01:13 160/87 (111) 03/03/17 00:06 36.5 71 16 179/78 (111) 96 4.0 03/02/17 23:40 Nasal Cannula 4.0 03/02/17 16:57 36.5 57 20 168/89 (115) 98 Nasal Cannula 4.0 03/02/17 16:00 Nasal Cannula 4.0 03/02/17 14:02 165/92 (116) 03/02/17 10:43 163/90 (114) Physical Exam General Appearance: + mild distress, + thin Neck: supple, no JVD Respiratory/Chest: chest non-tender, lungs clear, + decreased breath sounds ( bases) Cardiovascular: regular rate, rhythm, no murmur Abdomen: normal bowel sounds, non tender, soft, + pertinent finding (no bruits) Neurologic/Psychiatric: alert, oriented x 3 Laboratory Results Last 24 Hours Test 03/03/17 07:19 White Blood Count 13.83 K/uL Red Blood Count 3.62 M/uL Hemoglobin 10.3 g/dL Hematocrit 32.2 % Mean Corpuscular Volume 89.0 fL Mean Corpuscular Hemoglobin 28.5 pg Mean Corpuscular Hemoglobin Concent 32.0 g/dl Platelet Count 152 K/uL Mean Platelet Volume 13.1 fL Neutrophils (%) (Auto) 81.7 % Lymphocytes (%) (Auto) 7.1 % Monocytes (%) (Auto) 10.1 % Eosinophils (%) (Auto) 0.1 % Basophils (%) (Auto) 0.1 % Neutrophils # (Auto) 11.32 K/uL Lymphocytes # (Auto) 0.98 K/uL Monocytes # (Auto) 1.39 K/uL Eosinophils # (Auto) 0.01 K/uL Basophils # (Auto) 0.01 K/uL RDW Standard Deviation 55.3 fL RDW Coefficient of Variation 16.9 % Immature Granulocyte % (Auto) 0.9 % Immature Granulocyte # (Auto) 0.12 K/uL Assessment and Plan 71yo F with concern for sepsis from uti poa, culture with multiple organisms, ID agrees with clinical picture and will recommend 7 day antibiotic course Sepsis, secondary to UTI - POA Improving WBC count and clinical picture PT has h/o ESBL pathogens and VRE - will continue the ertapenem and daptomycin. chronic hypoxic resp failure - copd steroids with taper and O2 CKD stage 4 with superimposed acute kidney injury - DIONI resolved. HTN - labile; this is typical for her in the hospital. Continue complex regimen of meds. Adjust meds if BPs continue to remain high, renal ultrasound without convincing evidence of recurrent MARITZA chronic pain syndrome. h/o severe osteoporosis with numerous compression fractures and several ones s/o kyphoplasty.continued opiate pain management hypokalemia - replete DVT proph - lovenox hypokalemia - replete PT, OT evals dispo - [facility] Continued [facility] stay due to: inadequate po fluid intake, inadequate oral pain control, multiple IV medications needed Discharge planning: care home facility
[2017-03-03] MEDS: HydrALAZINE HCL 20 MG/ML VIAL IV PRN (19:15)
[2017-03-03] MEDS: LATANOPROST 0.005% OP SOLN 2.5 ML BTL OPR SCH (21:13)
[2017-03-03] MEDS ORDERED: AMLODIPINE BESYLATE 5 MG TAB PO STA (22:10)
[2017-03-03] MEDS: ZOLPIDEM TARTRATE 5 MG TAB PO PRN (22:48)
[2017-03-04] MEDS: SUCRALFATE 1 GM/10 ML UDC PO SCH ×4 (05:52→20:48)
[2017-03-04 07:02] VITALS: BP 183/96; PULSE 62; TEMP 36.6; O2SAT 97
[2017-03-04 07:41] LABS: HEMATOCRIT 35.7 % (37-47); MEAN CELL VOLUME 89.5 fL (80-100); MEAN CORPUSCULAR HEMOGLOBIN 27.3 pg (25-34); MEAN CORPUSCULAR HGB CONC 30.5 g/dl (32-36); MEAN PLATELET VOLUME 12.8 fL (7.4-10.4); PLATELET COUNT 180 K/uL (130-400); RED BLOOD COUNT 3.99 M/uL (4.2-5.4); WHITE BLOOD COUNT 15.56 K/uL (4.8-10.8)
[2017-03-04] MEDS: ALLOPURINOL 100 MG TAB PO SCH ×2 (08:00→20:40)
[2017-03-04] MEDS: LACTOBACILLUS ACIDOPHILUS (FLORANEX) TAB PO SCH ×3 (08:00→16:37)
[2017-03-04] MEDS: DULOXETINE (CYMBALTA) 30 MG CAP PO SCH (08:00)
[2017-03-04] MEDS: CHECK CLONIDINE PATCH PLACEMENT SCH ×3 (08:00→23:50)
[2017-03-04 08:07] LABS: CREATININE 1.1 mg/dl (0.60-1.20)
[2017-03-04 08:22] VITALS: BP_SYST 170; BP_DIAS 81; BP_DIAS 84; PULSE 61; PULSE 63; PULSE 68
[2017-03-04] MEDS: FLUTICASONE PROPIONATE NA SPR 16 GM BTL NAE SCH ×2 (08:29→20:52)
[2017-03-04] MEDS: IPRATROPIUM BROMIDE/ALBUTEROL respimat INH INH SCH ×4 (08:29→20:39)
[2017-03-04] MEDS: POTASSIUM CHLORIDE 10 MEQ TABCR PO SCH (08:29)
[2017-03-04] MEDS: FLUTICASONE/SALMETEROL 250/50 (ADVAIR) 14 PUFF/1 INHALER INH SCH ×2 (08:29→20:39)
[2017-03-04] MEDS: FERROUS SULFATE 325 MG TAB PO SCH (08:30)
[2017-03-04] MEDS: POLYETHYLENE (MIRALAX) 17 GM PACK PO SCH (08:30)
[2017-03-04] MEDS: BACLOFEN 10 MG TAB PO SCH ×3 (08:30→20:41)
[2017-03-04] MEDS: CALCITONIN SALMON NA 200 IU/AC 3.7 ML BTL NAE SCH (08:30)
[2017-03-04] MEDS: SENNA 8.6 MG TAB PO SCH (08:31)
[2017-03-04] MEDS: MULTIVITAMIN TAB PO SCH (08:32)
[2017-03-04] MEDS: CHOLECALCIFEROL 1000 INTER.UNIT TAB PO SCH (08:34)
[2017-03-04] MEDS: ENOXAPARIN 30 MG/0.3 ML SYR SQ SCH (08:35)
[2017-03-04] MEDS: CARVEDILOL 25 MG TAB PO SCH ×2 (08:37→20:43)
[2017-03-04] MEDS: PANTOprazole SOD 40 MG TAB PO SCH ×2 (08:37→20:41)
[2017-03-04] MEDS: NYSTATIN POWDER 15GM BTL EXT SCH ×3 (08:50→20:00)
[2017-03-04] MEDS: METHADONE HCL 10 MG TAB PO SCH ×3 (09:35→20:52)
[2017-03-04] MEDS: TIOTROPIUM BROMIDE 5 PUFF/90 MCG INH INH SCH (09:35)
[2017-03-04] MEDS ORDERED: OPTIRAY 320 IV PRN (09:45)
[2017-03-04] MEDS ORDERED: LORAZEPAM 2 MG/ML 1 ML VIAL IV PRN ×2 (11:30)
[2017-03-04] MEDS: ERTAPENEM IV 1,000 MG in SODIUM CHLORIDE 0.9% 50ML 50 ML IV SCH (11:50)
[2017-03-04 12:03] VITALS: BP 166/83; PULSE 63
--- NOTE | 2017-03-04 12:57 | DIAGNOSTIC IMAGING REPORT ---
ANGIO ABDOMEN WITH CONTRAST HISTORY: 71 years-old Female presents with dehydration and sepsis secondary to urinary tract infection. Clinical concern for possible renal artery stenosis. History of prior left renal arterial intervention. COMPARISON: CT 02/28/2017, duplex renal arterial study 03/03/2017 TECHNIQUE: CTA abdomen was obtained along the intravenous administration of 94 mL Optiray 320. 3-D coronal and sagittal MIPS were obtained from the exophytic set and submitted for review. All measurements were obtained according to NASCET criteria. A dose lowering technique was used consistent with the principals of LEXII. FINDINGS: CTA ABDOMEN: The imaged inferior cardiac chambers are enlarged. There is moderate mixed plaquing of the abdominal aorta and iliac vasculature. The celiac trunk, superior and inferior mesenteric arteries are patent without high-grade stenosis identified. A right-sided renal arterial stent is present in appears patent. The exact degree of stenosis within the right renal artery is difficult to quantify secondary to streak artifact from the metallic stent graft. There is however a focal area of soft tissue attenuation within the proximal portion of the stent as seen on image 96 series 3 and image 3 of 36 (see book che) suggesting atheromatous plaquing or intimal hyperplasia which appears to cause least moderate stenosis of the stent. Otherwise, no additional high-grade stenosis, occlusion or aneurysm of the right renal arteries identified. The left renal artery is patent. There is focal mixed plaquing at the origin of the left renal artery with a ring like area of soft tissue attenuation seen just distal to the renal arterial ostium seen on image 74 of series 3 and also on page 8 of 36. Which appears to cause focal moderate to high-grade stenosis with some poststenotic dilation. CT ABDOMEN: Small bilateral pleural effusions with right greater than left consolidations suggesting compressive atelectasis with overall uniform enhancement. Areas of pleural parenchymal scarring are present within the lung bases which are subsegmental. No pneumoperitoneum identified. There is mild thickening and increased enhancement of the fundal gallbladder as seen on image 130 of series 3. Trace perihepatic ascites redemonstrated. The liver, spleen, pancreas and adrenal glands are unremarkable. Common bile duct is mildly dilated at 8 mm without obstructing stone or lesion identified. No intrahepatic biliary ductal dilation is seen. Multifocal cortical thinning with lobulation and mild associated atrophy involves the bilateral kidneys, right greater than left. No renal calculi or hydronephrosis identified. Scattered nonenlarged nonspecific periaortic and pericaval lymph nodes are seen. Unchanged from prior study. High attenuating material is seen layering within the stomach. 2.4 cm fat filled ventral abdominal wall hernia is noted. No bowel obstruction or focal bowel wall thickening identified. Moderate stool burden of the colon. Soft tissues are unremarkable. The bones are osteopenic. Multiple remote appearing bilateral rib fractures. Prior multilevel kyphoplasty at T11-L5 with compression deformities most pronounced at T11 and T12. Multilevel advanced facet arthropathy. IMPRESSION: 1. Patent right renal arterial stent graft with focal area of soft tissue attenuation involving the proximal portion of the stent as above suspicious for focal atheromatous plaquing or intimal hyperplasia which appears to cause at least moderate in-stent stenosis. 2. Focal mixed plaquing at the ostium of the left renal artery with a ring like area of soft tissue attenuation just distal to the ostium as above causes moderate to high-grade stenosis with post-stenotic dilation. These findings could be further evaluated with digital subtraction angiography if clinically indicated. 3. Moderate mixed plaquing of the abdominal aorta and iliac vasculature without abdominal aortic aneurysm. 4. Right greater than left cortical thinning and atrophic changes of the kidneys appear unchanged compatible with chronic medical renal disease. 5. Persistent trace perihepatic ascites. Small bilateral pleural effusions with bibasilar consolidation suggesting compressive atelectasis. 6. Additional incidental findings as above. The above report was generated using voice recognition software. It may contain grammatical, syntax or spelling errors. Electronically signed by: Alejandro Mitchell M.D. 03/04/2017 12:56 PM Dictated Date/Time: 03/04/2017 12:38 PM
[2017-03-04] MEDS ORDERED: LORAZEPAM INJ 0.5 MG in SYRINGE 0.75 ML IV PRN (13:00)
[2017-03-04] MEDS: DAPTOmycin IV 350 MG in SODIUM CHLORIDE 0.9% 50ML 50 ML IV SCH (13:40)
[2017-03-04] MEDS: LORAZEPAM INJ 1 MG in SYRINGE 0.5 ML IV PRN ×2 (14:16→23:49)
[2017-03-04 15:54] VITALS: BP 169/92; PULSE 65; TEMP 36.9; O2SAT 98
--- NOTE | 2017-03-04 17:35 | Progress Note ---
Subjective Date of Service: Mar 04, 2017. Subjective this pt is concerned about her renal artery stents and CTA confirms her issue, she has b/l stents and both are partially re obstructed on CTA, otherwise she is slowly improving Problem List Medical Problems: (1) Altered mental status Status: Acute (2) Anemia Status: Acute (3) Bilateral pneumonia Status: Acute (4) CHF (congestive heart failure) Status: Acute (5) Chronic Kidney Disease, Stage Iii (Moderate) Status: Chronic (6) COPD exacerbation Status: Acute (7) COPD exacerbation Status: Acute (8) Crystal arthritis Status: Chronic (9) Dehydration Status: Acute (10) Duodenal bulb ulcer Status: Chronic (11) Failure of outpatient treatment Status: Acute (12) Failure of outpatient treatment Status: Acute (13) Gout Status: Chronic (14) Hyperlipidemia Nec/Nos Status: Chronic (15) Hypertension Status: Chronic (16) Hypoxemia Status: Acute (17) Hypoxia Status: Acute (18) Hypoxia Status: Acute (19) Hypoxia Status: Acute (20) Hypoxia Status: Acute (21) Lumbar compression fracture Status: Chronic (22) Opiate use Status: Chronic (23) Osteoporosis Status: Chronic (24) Peripheral edema Status: Acute (25) Pneumonia Status: Acute (26) Pneumonia Status: Acute (27) Pneumonia involving right lung Status: Acute (28) Respiratory acidosis Status: Acute (29) Respiratory distress Status: Acute (30) Right renal artery stenosis Status: Chronic (31) Secondary hyperparathyroidism Status: Chronic (32) UTI (urinary tract infection) Status: Acute Review of Systems Constitutional: + weakness, No fever, No chills Respiratory: No cough, No shortness of breath, No dyspnea on exertion Cardiac: No chest pain, No edema Abdomen: No pain, No nausea, No vomiting, No diarrhea Female : No dysuria, No urinary frequency Neurologic: + weakness, No memory loss Psychiatric: No depression symptoms, No anhedonism Objective Vital Signs Date Time Temp Pulse Resp B/P (MAP) Pulse Ox O2 Delivery O2 Flow Rate FiO2 03/04/17 08:22 61 170/81 (110) 63 170/84 (112) 68 03/04/17 07:02 36.6 62 18 183/96 (125) 97 03/04/17 00:00 Nasal Cannula 4.0 03/03/17 23:10 36.6 59 18 174/91 (118) 97 Nasal Cannula 4.0 03/03/17 21:45 67 190/101 (130) 03/03/17 21:03 71 191/83 (119) 03/03/17 19:13 181/84 (116) 03/03/17 16:00 Nasal Cannula 03/03/17 16:00 36.9 59 16 179/89 (119) 96 Nasal Cannula 4.0 03/03/17 14:29 36.4 60 18 163/84 (110) 97 Nasal Cannula 03/03/17 11:08 160/88 (112) Physical Exam General Appearance: + mild distress, + thin Eyes: PERRL, EOMI Neck: supple, no JVD Respiratory/Chest: chest non-tender Cardiovascular: regular rate, rhythm, no murmur Abdomen: normal bowel sounds, non tender, soft Extremities: no pedal edema, no calf tenderness Neurologic/Psychiatric: alert, oriented x 3 Laboratory Results Last 24 Hours Test 03/04/17 07:00 White Blood Count 15.56 K/uL Red Blood Count 3.99 M/uL Hemoglobin 10.9 g/dL Hematocrit 35.7 % Mean Corpuscular Volume 89.5 fL Mean Corpuscular Hemoglobin 27.3 pg Mean Corpuscular Hemoglobin Concent 30.5 g/dl RDW Standard Deviation 56.4 fL RDW Coefficient of Variation 17.5 % Platelet Count 180 K/uL Mean Platelet Volume 12.8 fL Creatinine 1.10 mg/dl Est Creatinine Clear Calc Drug Dose 36.7 ml/min Estimated GFR () 59.3 Estimated GFR (Non- 51.2 Assessment and Plan 71yo F with concern for sepsis from uti poa, culture with multiple organisms, ID agrees with clinical picture and will recommend 7 day antibiotic course, concern for recurrent MARITZA Sepsis, secondary to UTI - POA improving Improving WBC count and clinical picture PT has h/o ESBL pathogens and VRE - will continue the ertapenem and daptomycin. chronic hypoxic resp failure - stable, copd steroids with taper and O2 CKD stage 4 with superimposed acute kidney injury - DIONI resolved. HTN - labile; CTA suggests b/l renal artery stenosis with previous stents, will continue to treat with medication and get a endovascular surgical opinioin chronic pain syndrome. h/o severe osteoporosis with numerous compression fractures and several ones s/o kyphoplasty.continued opiate pain management with good pain control hypokalemia - replete DVT proph - lovenox hypokalemia - replete PT, OT evals dispo - [facility] Continued [facility] stay due to: inadequate po fluid intake, inadequate oral pain control, multiple IV medications needed Discharge planning: residential facility
[2017-03-04] MEDS: LATANOPROST 0.005% OP SOLN 2.5 ML BTL OPR SCH (20:48)
[2017-03-04] MEDS: ZOLPIDEM TARTRATE 5 MG TAB PO PRN (20:52)
[2017-03-04] MEDS: HydrALAZINE HCL 20 MG/ML VIAL IV PRN (23:26)
[2017-03-04 23:29] VITALS: BP 206/121; PULSE 71; TEMP 37.3; O2SAT 96
[2017-03-05] VITALS (8 sets, daily range): BP systolic 168–195; BP diastolic 84–103; PULSE 64–73; TEMP 36.6–36.9; O2SAT 96–98
[2017-03-05] MEDS: SUCRALFATE 1 GM/10 ML UDC PO SCH ×4 (06:00→20:50)
[2017-03-05] MEDS: DULOXETINE (CYMBALTA) 30 MG CAP PO SCH (08:00)
[2017-03-05] MEDS: LACTOBACILLUS ACIDOPHILUS (FLORANEX) TAB PO SCH ×3 (08:00→18:03)
[2017-03-05] MEDS ORDERED: AMLODIPINE BESYLATE 5 MG TAB PO SCH (08:00)
[2017-03-05] MEDS: CHECK CLONIDINE PATCH PLACEMENT SCH ×2 (08:00→18:03)
[2017-03-05] MEDS: ALLOPURINOL 100 MG TAB PO SCH ×2 (08:00→20:49)
[2017-03-05] MEDS: TIOTROPIUM BROMIDE 5 PUFF/90 MCG INH INH SCH (09:10)
[2017-03-05] MEDS: AMLODIPINE BESYLATE 5 MG TAB PO SCH (09:10)
[2017-03-05] MEDS: FLUTICASONE/SALMETEROL 250/50 (ADVAIR) 14 PUFF/1 INHALER INH SCH ×2 (09:10→20:47)
[2017-03-05] MEDS: CALCITONIN SALMON NA 200 IU/AC 3.7 ML BTL NAE SCH (09:11)
[2017-03-05] MEDS: FLUTICASONE PROPIONATE NA SPR 16 GM BTL NAE SCH ×2 (09:11→20:47)
[2017-03-05] MEDS: IPRATROPIUM BROMIDE/ALBUTEROL respimat INH INH SCH ×4 (09:11→20:47)
[2017-03-05] MEDS: CARVEDILOL 25 MG TAB PO SCH ×2 (09:14→20:49)
[2017-03-05] MEDS: POTASSIUM CHLORIDE 10 MEQ TABCR PO SCH (09:15)
[2017-03-05] MEDS: ENOXAPARIN 30 MG/0.3 ML SYR SQ SCH (09:16)
[2017-03-05] MEDS: FERROUS SULFATE 325 MG TAB PO SCH (09:17)
[2017-03-05] MEDS: MULTIVITAMIN TAB PO SCH (09:17)
[2017-03-05] MEDS: CHOLECALCIFEROL 1000 INTER.UNIT TAB PO SCH (09:17)
[2017-03-05] MEDS: PANTOprazole SOD 40 MG TAB PO SCH ×2 (09:17→20:49)
[2017-03-05] MEDS: POLYETHYLENE (MIRALAX) 17 GM PACK PO SCH (09:18)
[2017-03-05] MEDS: SENNA 8.6 MG TAB PO SCH (09:18)
[2017-03-05] MEDS: BACLOFEN 10 MG TAB PO SCH ×3 (09:18→20:51)
[2017-03-05] MEDS: METHADONE HCL 10 MG TAB PO SCH ×3 (09:28→20:46)
[2017-03-05] MEDS: NYSTATIN POWDER 15GM BTL EXT SCH ×3 (12:42→20:46)
[2017-03-05] MEDS: ERTAPENEM IV 1,000 MG in SODIUM CHLORIDE 0.9% 50ML 50 ML IV SCH (12:48)
[2017-03-05] MEDS: DAPTOmycin IV 350 MG in SODIUM CHLORIDE 0.9% 50ML 50 ML IV SCH (14:11)
[2017-03-05] MEDS ORDERED: CLONIDINE HCL 0.2 MG/24 HR TRANSDERM SYS TD SCH (16:00)
--- NOTE | 2017-03-05 16:32 | Progress Note ---
Subjective Date of Service: Mar 05, 2017. Subjective pt has various minor somatic complaints, she feels ativan help many of them, has clearing encephalopathic confusion Problem List Medical Problems: (1) Altered mental status Status: Acute (2) Anemia Status: Acute (3) Bilateral pneumonia Status: Acute (4) CHF (congestive heart failure) Status: Acute (5) Chronic Kidney Disease, Stage Iii (Moderate) Status: Chronic (6) COPD exacerbation Status: Acute (7) COPD exacerbation Status: Acute (8) Crystal arthritis Status: Chronic (9) Dehydration Status: Acute (10) Duodenal bulb ulcer Status: Chronic (11) Failure of outpatient treatment Status: Acute (12) Failure of outpatient treatment Status: Acute (13) Gout Status: Chronic (14) Hyperlipidemia Nec/Nos Status: Chronic (15) Hypertension Status: Chronic (16) Hypoxemia Status: Acute (17) Hypoxia Status: Acute (18) Hypoxia Status: Acute (19) Hypoxia Status: Acute (20) Hypoxia Status: Acute (21) Lumbar compression fracture Status: Chronic (22) Opiate use Status: Chronic (23) Osteoporosis Status: Chronic (24) Peripheral edema Status: Acute (25) Pneumonia Status: Acute (26) Pneumonia Status: Acute (27) Pneumonia involving right lung Status: Acute (28) Respiratory acidosis Status: Acute (29) Respiratory distress Status: Acute (30) Right renal artery stenosis Status: Chronic (31) Secondary hyperparathyroidism Status: Chronic (32) UTI (urinary tract infection) Status: Acute Review of Systems Constitutional: + weakness, + fatigue, No fever, No chills Respiratory: No cough, No shortness of breath Cardiac: No chest pain, No edema Abdomen: + constipation, No pain, No nausea, No vomiting, No diarrhea Neurologic: + weakness, No memory loss, No paralysis Psychiatric: + depression symptoms, + anxiety, No anhedonism Objective Vital Signs Date Time Temp Pulse Resp B/P (MAP) Pulse Ox O2 Delivery O2 Flow Rate FiO2 03/05/17 16:00 36.6 68 18 172/94 (120) 96 Nasal Cannula 4.0 03/05/17 12:20 64 172/84 (113) 03/05/17 10:30 98 Nasal Cannula 4.0 03/05/17 06:56 36.8 64 18 189/100 (129) 98 174/100 (124) 03/05/17 05:39 168/92 (117) 03/05/17 02:31 64 18 184/92 (122) 03/05/17 02:07 195/103 (133) 03/05/17 00:06 Nasal Cannula 4.0 03/04/17 23:29 37.3 71 18 206/121 (149) 96 Nasal Cannula Physical Exam General Appearance: WD/WN, no apparent distress, + thin Respiratory/Chest: chest non-tender, lungs clear Cardiovascular: regular rate, rhythm, no murmur Abdomen: normal bowel sounds, non tender, soft Extremities: no pedal edema, no calf tenderness Neurologic/Psychiatric: alert, oriented x 3 Assessment and Plan 71yo F with concern for sepsis from uti poa, culture with multiple organisms, ID agrees with clinical picture and will recommend 7 day antibiotic course, concern for recurrent MARITZA as cT suggest some restenosis of bilateral stents and her blood pressure has been labile and difficult to control with multiple medications Sepsis, secondary to UTI - POA improving PT has h/o ESBL pathogens and VRE - will continue the ertapenem and daptomycin. ID recommending one week total 03/08 last doses chronic hypoxic resp failure - stable, copd steroids with taper and O2 CKD stage 4 with superimposed acute kidney injury - DIONI resolved. HTN - labile; CTA suggests b/l renal artery stenosis with previous stents, will continue to treat with medication and get a endovascular surgical opinion, increased hydralazine and added scheduled norvasc 03/05 chronic pain syndrome. good control h/o severe osteoporosis with numerous compression fractures and several ones s/o kyphoplasty.continued opiate pain management hypokalemia - replete DVT proph - lovenox hypokalemia - replete PT, OT evals dispo - [facility] Continued [facility] stay due to: inadequate po fluid intake, inadequate oral pain control, multiple IV medications needed Discharge planning: long-term facility
[2017-03-05] MEDS: LATANOPROST 0.005% OP SOLN 2.5 ML BTL OPR SCH (20:50)
[2017-03-05] MEDS: HYDROmorphone INJ 1 MG/ML SYR IV PRN (21:08)
[2017-03-05] MEDS: ZOLPIDEM TARTRATE 5 MG TAB PO PRN (22:27)
[2017-03-05] MEDS: LORAZEPAM INJ 1 MG in SYRINGE 0.5 ML IV PRN (22:56)
[2017-03-06] VITALS (9 sets, daily range): BP systolic 146–185; BP diastolic 82–102; PULSE 65–70; TEMP 36.4–36.9; O2SAT 96–99
[2017-03-06] MEDS: HydrALAZINE HCL 20 MG/ML VIAL IV PRN (00:12)
[2017-03-06] MEDS: CHECK CLONIDINE PATCH PLACEMENT SCH ×3 (00:13→16:58)
[2017-03-06] MEDS: HYDROmorphone INJ 1 MG/ML SYR IV PRN ×2 (01:03→06:18)
[2017-03-06] MEDS: ACETAMINOPHEN 325 MG TAB PO PRN (01:52)
[2017-03-06] MEDS: SUCRALFATE 1 GM/10 ML UDC PO SCH ×4 (05:32→20:58)
[2017-03-06 06:58] LABS: HEMATOCRIT 34.6 % (37-47); MEAN CELL VOLUME 89.4 fL (80-100); MEAN CORPUSCULAR HEMOGLOBIN 28.4 pg (25-34); MEAN CORPUSCULAR HGB CONC 31.8 g/dl (32-36); MEAN PLATELET VOLUME 12.3 fL (7.4-10.4); PLATELET COUNT 190 K/uL (130-400); RED BLOOD COUNT 3.87 M/uL (4.2-5.4); WHITE BLOOD COUNT 15.56 K/uL (4.8-10.8)
[2017-03-06 07:27] LABS: CREATININE 1.1 mg/dl (0.60-1.20)
[2017-03-06] MEDS: LACTOBACILLUS ACIDOPHILUS (FLORANEX) TAB PO SCH ×3 (08:00→16:58)
[2017-03-06] MEDS: ENOXAPARIN 30 MG/0.3 ML SYR SQ SCH (08:00)
[2017-03-06] MEDS: FERROUS SULFATE 325 MG TAB PO SCH (09:46)
[2017-03-06] MEDS: CHOLECALCIFEROL 1000 INTER.UNIT TAB PO SCH (09:46)
[2017-03-06] MEDS: PANTOprazole SOD 40 MG TAB PO SCH ×2 (09:46→20:59)
[2017-03-06] MEDS: FLUTICASONE PROPIONATE NA SPR 16 GM BTL NAE SCH ×2 (09:47→20:56)
[2017-03-06] MEDS: BACLOFEN 10 MG TAB PO SCH ×3 (09:47→20:57)
[2017-03-06] MEDS: AMLODIPINE BESYLATE 5 MG TAB PO SCH (09:47)
[2017-03-06] MEDS: FLUTICASONE/SALMETEROL 250/50 (ADVAIR) 14 PUFF/1 INHALER INH SCH ×2 (09:47→20:55)
[2017-03-06] MEDS: IPRATROPIUM BROMIDE/ALBUTEROL respimat INH INH SCH ×4 (09:48→20:56)
[2017-03-06] MEDS: NYSTATIN POWDER 15GM BTL EXT SCH ×3 (09:48→20:55)
[2017-03-06] MEDS: TIOTROPIUM BROMIDE 5 PUFF/90 MCG INH INH SCH (09:48)
[2017-03-06] MEDS: POLYETHYLENE (MIRALAX) 17 GM PACK PO SCH (09:49)
[2017-03-06] MEDS: CALCITONIN SALMON NA 200 IU/AC 3.7 ML BTL NAE SCH (09:49)
[2017-03-06] MEDS: SENNA 8.6 MG TAB PO SCH (09:58)
[2017-03-06] MEDS: METHADONE HCL 10 MG TAB PO SCH ×3 (10:00→21:06)
[2017-03-06] MEDS: MULTIVITAMIN TAB PO SCH (10:00)
[2017-03-06] MEDS: POTASSIUM CHLORIDE 10 MEQ TABCR PO SCH (10:01)
[2017-03-06] MEDS: DULOXETINE (CYMBALTA) 30 MG CAP PO SCH (10:03)
[2017-03-06] MEDS: ALLOPURINOL 100 MG TAB PO SCH ×2 (10:04→20:58)
[2017-03-06] MEDS: CARVEDILOL 25 MG TAB PO SCH ×2 (10:05→20:59)
--- NOTE | 2017-03-06 10:25 | Surgery Consultation ---
Consultation Date of Service Mar 06, 2017. (Qiana Carr, EVIE) Chief Complaint MARITZA (Qiana Carr PA-C) History of Present Illness The patient is a 71 year old female with multiple medical problems, including HTN and renal art stenosis with previous renal art stent insertion, seen in consultation today for possible renal art restenosis. Pt currently with uncontrolled HTN on multiple medications since admission, having GASPAR when BP over 200. Imaging suggests possible restenosis vs artifact. Admitted with UTI , initially with elevated cr, however, appears improved today at 1.1. Admits chronic pain, takes methadone. Denies Gaspar presently, chest pain, SOB, abd pain, N/V, rest pain, claudication, other complaints. (Qiana Carr, EVIE) Vitals Vital Signs Past 12 Hours Date Time Temp Pulse Resp B/P (MAP) Pulse Ox O2 Delivery O2 Flow Rate FiO2 03/06/17 07:24 36.6 65 20 161/85 (110) 97 Room Air 03/06/17 07:00 36.6 65 18 161/85 (110) 97 03/06/17 01:03 168/96 (120) 03/06/17 00:15 Nasal Cannula 4.0 03/05/17 23:56 36.9 73 16 186/98 (127) 97 Nasal Cannula 4.0 (Qiana Carr, EVIE) Allergies Coded Allergies: Squash (Verified Allergy, Unknown, Zucchini, 02/28/17) Azithromycin (Verified Adverse Reaction, Unknown, nausea, 02/28/17) Levofloxacin (Verified Adverse Reaction, Unknown, nausea, 02/28/17) Home Medications Scheduled Allopurinol (Zyloprim), 100 MG PO BID Baclofen (Lioresal), 10 MG PO TID Calcitonin [place] (Calcitonin-[place]), 1 SPRAY ERIC DAILY Carvedilol (Coreg), 25 MG PO BID Cholecalciferol (D-1000), 4,000 UNITS PO DAILY Clonidine Hcl (Qmnrsxae-Xml-7), 2 PATCH TD WK Duloxetine HCl (Cymbalta), 30 MG PO QAM Ferrous Sulfate (Kp Ferrous Sulfate), 325 MG PO DAILY Fluticasone Prop/Salmeterol (Advair Diskus 250/50 60 Dose), 1 PUFFS INH BID Fluticasone Propionate (Nasal) (Flonase Allergy Relief Ch), 1 SPRAY ERIC BID Furosemide (Furosemide), 20 MG PO QAM Hydralazine Hcl (Apresoline), 25 MG PO TID Ipratropium-Albuterol (Combivent Respimat), 1 PUFFS INH QID Latanoprost (Latanoprost), 1 DROP OPR HS Melatonin (Melatonin Maximum Strengt), 5 MG PO HS Methadone Hcl (Dolophine), 30 MG PO TID Multivitamin (Multivitamin), 1 TAB PO DAILY Nystatin (Nystop), 1 APPLN EXT TID Pantoprazole (Protonix), 40 MG PO BID Polyethylene Glycol 3350 (Miralax), 17 GM PO QAM Potassium Chloride (Micro-K Ext Rel), 10 MEQ PO DAILY Prednisone (Prednisone), 5 MG PO DAILY Saccharomyces Boulardii (Florastor), 1 CAP PO DAILY Sennosides (Senokot), 1 TAB PO QAM Sucralfate (Carafate), 1 GM PO ACHS Tiotropium [place] (Spiriva Handihaler), 1 CAP INH DAILY Scheduled PRN Acetaminophen (Tylenol), 650 MG PO Q6 PRN for Pain or Fever Epinephrine (Epipen), 0.3 MG IM UD PRN for ALLERGIC REACTION Magnesium Hydroxide (Milk of Magnesia), 30 ML PO UD PRN for Constipation Ondasetron Odt (Zofran Odt), 4 MG SL Q6H PRN for Nausea Miscellaneous Medications Bisacodyl (Dulcolax), 1 SUPP TN Dextrose (Diabetic Use) (Insta-Glucose), 1 APPLN PO Glucagon (Glucagon Emergency Kit), 1 APPLN IM Sodium Phosphates (Fleet Enema Six Pack), 1 APPL RE Problem List Medical Problems: (1) Acute respiratory failure with hypoxia (2) Ambulatory dysfunction (3) Cholelithiases (4) Chronic kidney disease (CKD) stage G3a/A1, moderately decreased glomerular filtration rate (GFR) between 45-59 mL/min/1.73 square meter and albuminuria creatinine ratio less than 30 mg/g (5) Chronic Kidney Disease, Stage Iii (Moderate) (6) Compression fracture of fourth lumbar vertebra (7) COPD (chronic obstructive pulmonary disease) (8) Crystal arthritis (9) Duodenal bulb ulcer (10) DVT (deep venous thrombosis) (11) Fecal impaction of colon (12) Fracture of right olecranon process (13) Gout (14) Gout attack (15) Headache (16) Hodgkins lymphoma (17) Humerus fracture (18) Hyperlipidemia Nec/Nos (19) Hypertension (20) Hypertension (21) Hypertensive urgency (22) Intractable pain (23) Knee pain (24) Left renal artery stenosis (25) Lethargy (26) Leukocytosis (27) Lower extremity edema (28) Lumbar compression fracture (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, 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, with chronic kidney disease (30) Mucus plugging of bronchi (31) Narcotic withdrawal (32) Opiate use (33) Opioid dependence (34) Osteoporosis (35) Perforated duodenal ulcer (36) PNA (pneumonia) (37) Pneumonia (38) right hand cellulitis (39) Right renal artery stenosis (40) Secondary hyperparathyroidism (41) Sepsis secondary to UTI (42) Thrush, oral (43) UTI (urinary tract infection) (44) Wedge compression fracture of T11 vertebra Surgical Problems: (1) History of kyphoplasty (2) left renal artery stent placement (Qiana Carr, AIRAM-C) Surgical / Medical History Hx Cardiac Surgery: No Hx Abdominal Surgery: No (TUBAL LIGATION, ex lap anterior duodenal perf repair) Hx Cancer Surgery: Yes (Hodgkins staging procedure) Hx Thoracic Surgery: No Hx Orthopedic: No (kyphoplasty, b/l hip, Repairs: L wrist fx, b/l elbow, L femur, R shoulder ) Hx Urinary Tract Surgery: Yes (L renal artere stent) Past Medical/Surgical History: Asthma, Chronic Steroid Use, Diabetes, High Cholesterol, Hypertension, Kidney Disease (Qiana Carr, PAEdwinaC) Family History Heart disease (Qiana Carr, VANC) Heart disease (Nate Jamison M.D.) Social History Smoking Status: Former Smoker Hx Tobacco Use In Past Year?: No Hx Alcohol Use - Type & Amnt: No Hx Substance Use -Type & Amnt: Yes (Qiana Carr, PA-C) Review of Systems Constitutional: + malaise, No chills, No fever Skin: No change in color Eyes: No visual changes ENMT: No sore throat Respiratory: + STEVENS, No cough, No short of breath Cardiovascular: + edema, No chest pain, No palpitations, No intermittent claudication Gastrointestinal: No abdominal pain, No nausea, No vomiting Genitourinary - Female: No dysuria, No hematuria Neurologic: No dizziness, No headache, No numbness, No tingling (Qiana Carr, PA-C) Physical Exam Constitutional: General Apperance: well-nourished, well-developed Level of Distress: NAD, chronically ill Psychiatric: Mental Status: active & alert, normal mood, normal affect Orientation: oriented except where noted, to time, to place, to person Memory: recent memory normal, remote memory normal Head: normocephalic, atraumatic Eyes: EOM: EOMI ENMT: normal ENT inspection, hearing grossly normal Neck: supple, trachea midline Lungs: Respiratory effort: no dyspnea Auscultation: no rales/crackles, no rhonchi, decreased breath sounds Cardiovascular: Apical Impulse: not displaced Heart Auscultation: RRR, no rubs, no gallops Peripheral Pulses: Pulses: full and equal, in all extremities except if noted Bruits: none appreciated Carotid Pulse: normal on the left, normal on the right Brachial Pulses: normal on the left, normal on the right Radial Pulse: normal on the left, normal on the right Femoral Pulse: normal on the left, normal on the right Posterior Tibialis Pulse: decreased on the left, decreased on the right Dorsalis Pedis Pulse: decreased on the left, decreased on the right Abdomen: Bowel Sounds: normal Inspection & Palpation: soft, non-distended, no tenderness, guarding & rebound Musculoskeletal: normal strength (5/5 throughout), normal tone Extremities: Upper Right: no cyanosis, no edema, no varicosities Upper Left: no cyanosis, no edema, no varicosities Lower Right: no cyanosis, no varicosities, edema Lower Left: no cyanosis, no varicosities, edema Neurologic: Cranial Nerves: grossly intact Sensation: grossly intact (Qiana Carr, PA-C) Assessment and Plan ASSESSMENT and PLAN: Renal art stenosis Pt discussed with Dr Jamison, recommends pt to undergo focused renal art angio, however, pt insisting on having general sedation for the procedure. Will discuss with Dr Jamison whether to involve anesthesia for heavier sedation before scheduling pt. (Qiana Carr, VANC) I had the pleasure to talk to Mrs. Sommers about possible arteriography. At this point she is agreeable to go under moderate sedation for the procedure. We'll plan on having her undergo renal artery arteriography under moderate sedation with anesthesia. If the stenoses are visualized during this procedure we will attempt to treat them with restenting or primary stenting the renal artery. I have discussed the risks options and benefits of the procedure with the patient. The patient understands the risks options and benefits and agrees to the procedure. (Nate Jamison M.D.)
--- NOTE | 2017-03-06 11:13 | Surgery Consultation ---
Consultation Date of Service Mar 06, 2017. Chief Complaint Recurrent renal artery stenosis History of Present Illness This is a 71-year-old female who has had renal artery stenting in the past. She was admitted at this time with nausea vomiting. She was found to have a UTI and placed on antibiotics. She has generalized weakness and fatigue. She does have COPD and is chronically short of breath. She is on multiple antihypertensives and her blood pressure is getting more difficult to control recently. She does have stage III chronic kidney disease. She had a CTA done at this admission which showed a possible stenosis within the right renal artery stent and a possible focal stenosis of the left renal artery. Both these stenoses were considered be significant. Vitals Vital Signs Past 12 Hours Date Time Temp Pulse Resp B/P (MAP) Pulse Ox O2 Delivery O2 Flow Rate FiO2 03/06/17 07:24 36.6 65 20 161/85 (110) 97 Room Air 03/06/17 07:00 36.6 65 18 161/85 (110) 97 03/06/17 01:03 168/96 (120) 03/06/17 00:15 Nasal Cannula 4.0 03/05/17 23:56 36.9 73 16 186/98 (127) 97 Nasal Cannula 4.0 Allergies Coded Allergies: Squash (Verified Allergy, Unknown, Zucchini, 02/28/17) Azithromycin (Verified Adverse Reaction, Unknown, nausea, 02/28/17) Levofloxacin (Verified Adverse Reaction, Unknown, nausea, 02/28/17) Home Medications Scheduled Allopurinol (Zyloprim), 100 MG PO BID Baclofen (Lioresal), 10 MG PO TID Calcitonin [place] (Calcitonin-[place]), 1 SPRAY ERIC DAILY Carvedilol (Coreg), 25 MG PO BID Cholecalciferol (D-1000), 4,000 UNITS PO DAILY Clonidine Hcl (Uilrlrnx-Yhw-1), 2 PATCH TD WK Duloxetine HCl (Cymbalta), 30 MG PO QAM Ferrous Sulfate (Kp Ferrous Sulfate), 325 MG PO DAILY Fluticasone Prop/Salmeterol (Advair Diskus 250/50 60 Dose), 1 PUFFS INH BID Fluticasone Propionate (Nasal) (Flonase Allergy Relief Ch), 1 SPRAY ERIC BID Furosemide (Furosemide), 20 MG PO QAM Hydralazine Hcl (Apresoline), 25 MG PO TID Ipratropium-Albuterol (Combivent Respimat), 1 PUFFS INH QID Latanoprost (Latanoprost), 1 DROP OPR HS Melatonin (Melatonin Maximum Strengt), 5 MG PO HS Methadone Hcl (Dolophine), 30 MG PO TID Multivitamin (Multivitamin), 1 TAB PO DAILY Nystatin (Nystop), 1 APPLN EXT TID Pantoprazole (Protonix), 40 MG PO BID Polyethylene Glycol 3350 (Miralax), 17 GM PO QAM Potassium Chloride (Micro-K Ext Rel), 10 MEQ PO DAILY Prednisone (Prednisone), 5 MG PO DAILY Saccharomyces Boulardii (Florastor), 1 CAP PO DAILY Sennosides (Senokot), 1 TAB PO QAM Sucralfate (Carafate), 1 GM PO ACHS Tiotropium [place] (Spiriva Handihaler), 1 CAP INH DAILY Scheduled PRN Acetaminophen (Tylenol), 650 MG PO Q6 PRN for Pain or Fever Epinephrine (Epipen), 0.3 MG IM UD PRN for ALLERGIC REACTION Magnesium Hydroxide (Milk of Magnesia), 30 ML PO UD PRN for Constipation Ondasetron Odt (Zofran Odt), 4 MG SL Q6H PRN for Nausea Miscellaneous Medications Bisacodyl (Dulcolax), 1 SUPP DC Dextrose (Diabetic Use) (Insta-Glucose), 1 APPLN PO Glucagon (Glucagon Emergency Kit), 1 APPLN IM Sodium Phosphates (Fleet Enema Six Pack), 1 APPL RE Problem List Medical Problems: (1) Acute respiratory failure with hypoxia (2) Ambulatory dysfunction (3) Cholelithiases (4) Chronic kidney disease (CKD) stage G3a/A1, moderately decreased glomerular filtration rate (GFR) between 45-59 mL/min/1.73 square meter and albuminuria creatinine ratio less than 30 mg/g (5) Chronic Kidney Disease, Stage Iii (Moderate) (6) Compression fracture of fourth lumbar vertebra (7) COPD (chronic obstructive pulmonary disease) (8) Crystal arthritis (9) Duodenal bulb ulcer (10) DVT (deep venous thrombosis) (11) Fecal impaction of colon (12) Fracture of right olecranon process (13) Gout (14) Gout attack (15) Headache (16) Hodgkins lymphoma (17) Humerus fracture (18) Hyperlipidemia Nec/Nos (19) Hypertension (20) Hypertension (21) Hypertensive urgency (22) Intractable pain (23) Knee pain (24) Left renal artery stenosis (25) Lethargy (26) Leukocytosis (27) Lower extremity edema (28) Lumbar compression fracture (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, 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, with chronic kidney disease (30) Mucus plugging of bronchi (31) Narcotic withdrawal (32) Opiate use (33) Opioid dependence (34) Osteoporosis (35) Perforated duodenal ulcer (36) PNA (pneumonia) (37) Pneumonia (38) right hand cellulitis (39) Right renal artery stenosis (40) Secondary hyperparathyroidism (41) Sepsis secondary to UTI (42) Thrush, oral (43) UTI (urinary tract infection) (44) Wedge compression fracture of T11 vertebra Surgical Problems: (1) History of kyphoplasty (2) left renal artery stent placement Surgical / Medical History Hx Cardiac Surgery: No Hx Abdominal Surgery: No (TUBAL LIGATION, ex lap anterior duodenal perf repair) Hx Cancer Surgery: Yes (Hodgkins staging procedure) Hx Thoracic Surgery: No Hx Orthopedic: No (kyphoplasty, b/l hip, Repairs: L wrist fx, b/l elbow, L femur, R shoulder ) Hx Urinary Tract Surgery: Yes (L renal artere stent) Past Medical/Surgical History: Asthma, Chronic Steroid Use, Diabetes, High Cholesterol, Hypertension, Kidney Disease Family History Heart disease Social History Smoking Status: Former Smoker Hx Tobacco Use In Past Year?: No Hx Alcohol Use - Type & Amnt: No Hx Substance Use -Type & Amnt: Yes Review of Systems Constitutional: + malaise, No chills, No fever Skin: No change in color Eyes: No visual changes ENMT: No sore throat Respiratory: + STEVENS, No cough, No short of breath Cardiovascular: + edema, No chest pain, No palpitations, No intermittent claudication Gastrointestinal: No abdominal pain, No nausea, No vomiting Genitourinary - Female: No dysuria, No hematuria Neurologic: No dizziness, No headache, No numbness, No tingling Physical Exam Constitutional: General Apperance: well-nourished, well-developed Level of Distress: NAD, chronically ill Psychiatric: Orientation: oriented except where noted, to time, to place, to person Memory: recent memory normal, remote memory normal Eyes: EOM: EOMI Lungs: Respiratory effort: no dyspnea Auscultation: no rales/crackles, no rhonchi, decreased breath sounds
[2017-03-06] MEDS: ERTAPENEM IV 1,000 MG in SODIUM CHLORIDE 0.9% 50ML 50 ML IV SCH (11:34)
[2017-03-06] MEDS: DAPTOmycin IV 350 MG in SODIUM CHLORIDE 0.9% 50ML 50 ML IV SCH (13:16)
--- NOTE | 2017-03-06 15:17 | Progress Note ---
Subjective Date of Service: Mar 06, 2017. Subjective pt is feeling well today, has no new complaints is anxious regarding the upcoming procedure of possible renal artery stenosis. Problem List Medical Problems: (1) Altered mental status Status: Acute (2) Anemia Status: Acute (3) Bilateral pneumonia Status: Acute (4) CHF (congestive heart failure) Status: Acute (5) Chronic Kidney Disease, Stage Iii (Moderate) Status: Chronic (6) COPD exacerbation Status: Acute (7) COPD exacerbation Status: Acute (8) Crystal arthritis Status: Chronic (9) Dehydration Status: Acute (10) Duodenal bulb ulcer Status: Chronic (11) Failure of outpatient treatment Status: Acute (12) Failure of outpatient treatment Status: Acute (13) Gout Status: Chronic (14) Hyperlipidemia Nec/Nos Status: Chronic (15) Hypertension Status: Chronic (16) Hypoxemia Status: Acute (17) Hypoxia Status: Acute (18) Hypoxia Status: Acute (19) Hypoxia Status: Acute (20) Hypoxia Status: Acute (21) Lumbar compression fracture Status: Chronic (22) Opiate use Status: Chronic (23) Osteoporosis Status: Chronic (24) Peripheral edema Status: Acute (25) Pneumonia Status: Acute (26) Pneumonia Status: Acute (27) Pneumonia involving right lung Status: Acute (28) Respiratory acidosis Status: Acute (29) Respiratory distress Status: Acute (30) Right renal artery stenosis Status: Chronic (31) Secondary hyperparathyroidism Status: Chronic (32) UTI (urinary tract infection) Status: Acute Review of Systems Constitutional: No fever, No chills, No weakness, No fatigue Respiratory: No cough, No shortness of breath Cardiac: No chest pain, No edema Abdomen: No pain, No nausea, No vomiting, No diarrhea Neurologic: No memory loss, No paralysis Objective Vital Signs Date Time Temp Pulse Resp B/P (MAP) Pulse Ox O2 Delivery O2 Flow Rate FiO2 03/06/17 15:03 36.4 67 18 162/82 (108) 96 Nasal Cannula 4.0 03/06/17 11:20 36.5 65 18 146/85 (105) 99 Nasal Cannula 4.0 03/06/17 11:16 97 Nasal Cannula 4.0 03/06/17 07:24 36.6 65 20 161/85 (110) 97 Nasal Cannula 4.0 03/06/17 07:00 36.6 65 18 161/85 (110) 97 03/06/17 01:03 168/96 (120) 03/06/17 00:15 Nasal Cannula 4.0 03/05/17 23:56 36.9 73 16 186/98 (127) 97 Nasal Cannula 4.0 03/05/17 16:00 96 Nasal Cannula 4.0 03/05/17 16:00 36.6 68 18 172/94 (120) 96 Nasal Cannula 4.0 Physical Exam General Appearance: WD/WN, + mild distress Eyes: PERRL, EOMI Respiratory/Chest: chest non-tender, lungs clear, normal breath sounds Cardiovascular: regular rate, rhythm, no murmur Abdomen: normal bowel sounds, non tender, soft Extremities: no pedal edema, no calf tenderness Neurologic/Psychiatric: alert, oriented x 3 Laboratory Results Last 24 Hours Test 03/06/17 06:18 White Blood Count 15.56 K/uL Red Blood Count 3.87 M/uL Hemoglobin 11.0 g/dL Hematocrit 34.6 % Mean Corpuscular Volume 89.4 fL Mean Corpuscular Hemoglobin 28.4 pg Mean Corpuscular Hemoglobin Concent 31.8 g/dl RDW Standard Deviation 57.2 fL RDW Coefficient of Variation 17.9 % Platelet Count 190 K/uL Mean Platelet Volume 12.3 fL Creatinine 1.10 mg/dl Est Creatinine Clear Calc Drug Dose 36.7 ml/min Estimated GFR () 59.3 Estimated GFR (Non- 51.2 Assessment and Plan 71yo F with concern for sepsis from uti poa, culture with multiple organisms, ID agrees with clinical picture and will recommend 7 day antibiotic course, concern for recurrent MARITZA as cT suggest some restenosis of bilateral stents and her blood pressure has been labile and difficult to control with multiple medications, Dr Jamison agrees to consider angiography with possible intervention if indicated Sepsis, secondary to UTI - POA improving PT has h/o ESBL pathogens and VRE - will continue the ertapenem and daptomycin. ID recommending one week total 03/08 last doses chronic hypoxic resp failure - stable, copd steroids with taper and O2 CKD stage 4 with superimposed acute kidney injury - DIONI resolved. HTN - labile; CTA suggests b/l renal artery stenosis with previous stents, will continue to treat with medication and get a endovascular surgical opinion, increased hydralazine and added scheduled norvasc 03/05, better control on the 9th will see how angiography goes chronic pain syndrome.no current issues with pain h/o severe osteoporosis with numerous compression fractures and several ones s/o kyphoplasty.continued opiate pain management hypokalemia - replete DVT proph - lovenox hypokalemia - replete PT, OT evals dispo - [facility] Continued [facility] stay due to: inadequate po fluid intake, inadequate oral pain control, multiple IV medications needed Discharge planning: group home facility
[2017-03-06] MEDS: LORAZEPAM INJ 1 MG in SYRINGE 0.5 ML IV PRN ×2 (16:58→23:00)
[2017-03-06] MEDS: LATANOPROST 0.005% OP SOLN 2.5 ML BTL OPR SCH (21:00)
[2017-03-06] MEDS: ZOLPIDEM TARTRATE 5 MG TAB PO PRN (21:22)
[2017-03-07] MEDS: SUCRALFATE 1 GM/10 ML UDC PO SCH ×4 (06:14→20:21)
[2017-03-07 07:07] VITALS: BP 181/106; PULSE 60; TEMP 36.7; O2SAT 98
[2017-03-07] MEDS: LACTOBACILLUS ACIDOPHILUS (FLORANEX) TAB PO SCH ×3 (08:00→17:00)
[2017-03-07] MEDS: ALLOPURINOL 100 MG TAB PO SCH ×2 (08:00→20:00)
[2017-03-07] MEDS: DULOXETINE (CYMBALTA) 30 MG CAP PO SCH (08:00)
[2017-03-07 08:17] LABS: HEMATOCRIT 35.5 % (37-47); MEAN CORPUSCULAR HEMOGLOBIN 27.6 pg (25-34); PLATELET COUNT 229 K/uL (130-400); RED BLOOD COUNT 3.99 M/uL (4.2-5.4); WHITE BLOOD COUNT 13.67 K/uL (4.8-10.8)
[2017-03-07] MEDS: CHECK CLONIDINE PATCH PLACEMENT SCH ×4 (08:25→23:59)
[2017-03-07] MEDS: NYSTATIN POWDER 15GM BTL EXT SCH ×3 (08:30→20:00)
[2017-03-07] MEDS: FERROUS SULFATE 325 MG TAB PO SCH (08:32)
[2017-03-07] MEDS: METHADONE HCL 10 MG TAB PO SCH ×3 (08:32→20:20)
[2017-03-07] MEDS: CHOLECALCIFEROL 1000 INTER.UNIT TAB PO SCH (08:32)
[2017-03-07] MEDS: BACLOFEN 10 MG TAB PO SCH ×3 (08:32→20:20)
[2017-03-07] MEDS: IPRATROPIUM BROMIDE/ALBUTEROL respimat INH INH SCH ×4 (08:33→20:12)
[2017-03-07] MEDS: AMLODIPINE BESYLATE 5 MG TAB PO SCH (08:33)
[2017-03-07] MEDS: PANTOprazole SOD 40 MG TAB PO SCH ×2 (08:33→20:20)
[2017-03-07] MEDS: FLUTICASONE/SALMETEROL 250/50 (ADVAIR) 14 PUFF/1 INHALER INH SCH ×2 (08:33→20:12)
[2017-03-07] MEDS: MULTIVITAMIN TAB PO SCH (08:33)
[2017-03-07] MEDS: TIOTROPIUM BROMIDE 5 PUFF/90 MCG INH INH SCH (08:34)
[2017-03-07] MEDS: FLUTICASONE PROPIONATE NA SPR 16 GM BTL NAE SCH ×2 (08:34→20:12)
[2017-03-07] MEDS: CALCITONIN SALMON NA 200 IU/AC 3.7 ML BTL NAE SCH (08:34)
[2017-03-07] MEDS: CARVEDILOL 25 MG TAB PO SCH ×2 (08:35→20:19)
[2017-03-07] MEDS: POLYETHYLENE (MIRALAX) 17 GM PACK PO SCH (08:35)
[2017-03-07] MEDS: POTASSIUM CHLORIDE 10 MEQ TABCR PO SCH (08:36)
[2017-03-07] MEDS: SENNA 8.6 MG TAB PO SCH (08:36)
[2017-03-07] MEDS: ENOXAPARIN 30 MG/0.3 ML SYR SQ SCH (08:37)
[2017-03-07 10:32] VITALS: BP 171/91
[2017-03-07] MEDS: ERTAPENEM IV 1,000 MG in SODIUM CHLORIDE 0.9% 50ML 50 ML IV SCH (12:09)
[2017-03-07 12:15] VITALS: BP 180/85
[2017-03-07 12:17] VITALS: BP 180/87
[2017-03-07] MEDS: LORAZEPAM INJ 1 MG in SYRINGE 0.5 ML IV PRN ×2 (13:17→23:51)
[2017-03-07 14:38] VITALS: BP 168/86
[2017-03-07] MEDS: DAPTOmycin IV 350 MG in SODIUM CHLORIDE 0.9% 50ML 50 ML IV SCH (14:38)
[2017-03-07 15:16] VITALS: BP 167/90; PULSE 67; TEMP 36.4; O2SAT 96
--- NOTE | 2017-03-07 15:17 | Progress Note ---
Subjective Date of Service: Mar 07, 2017. Subjective this pt is stable and doing well, she is awaiting her vascular evaluation by Dr Jamison, no new issues still on IV antibiotics Problem List Medical Problems: (1) Altered mental status Status: Acute (2) Anemia Status: Acute (3) Bilateral pneumonia Status: Acute (4) CHF (congestive heart failure) Status: Acute (5) Chronic Kidney Disease, Stage Iii (Moderate) Status: Chronic (6) COPD exacerbation Status: Acute (7) COPD exacerbation Status: Acute (8) Crystal arthritis Status: Chronic (9) Dehydration Status: Acute (10) Duodenal bulb ulcer Status: Chronic (11) Failure of outpatient treatment Status: Acute (12) Failure of outpatient treatment Status: Acute (13) Gout Status: Chronic (14) Hyperlipidemia Nec/Nos Status: Chronic (15) Hypertension Status: Chronic (16) Hypoxemia Status: Acute (17) Hypoxia Status: Acute (18) Hypoxia Status: Acute (19) Hypoxia Status: Acute (20) Hypoxia Status: Acute (21) Lumbar compression fracture Status: Chronic (22) Opiate use Status: Chronic (23) Osteoporosis Status: Chronic (24) Peripheral edema Status: Acute (25) Pneumonia Status: Acute (26) Pneumonia Status: Acute (27) Pneumonia involving right lung Status: Acute (28) Respiratory acidosis Status: Acute (29) Respiratory distress Status: Acute (30) Right renal artery stenosis Status: Chronic (31) Secondary hyperparathyroidism Status: Chronic (32) UTI (urinary tract infection) Status: Acute Review of Systems Constitutional: + weakness, + fatigue, No fever, No chills Respiratory: No cough, No shortness of breath Cardiac: No chest pain, No edema Abdomen: No pain, No nausea, No vomiting, No diarrhea Objective Vital Signs Date Time Temp Pulse Resp B/P (MAP) Pulse Ox O2 Delivery O2 Flow Rate FiO2 03/07/17 00:00 Nasal Cannula 4.0 03/06/17 22:52 36.9 70 18 168/102 (124) 99 Room Air 03/06/17 21:14 185/98 (127) 03/06/17 20:00 Nasal Cannula 4.0 03/06/17 16:00 96 Nasal Cannula 4.0 03/06/17 15:03 36.4 67 18 162/82 (108) 96 Nasal Cannula 4.0 03/06/17 11:20 36.5 65 18 146/85 (105) 99 Nasal Cannula 4.0 03/06/17 11:16 97 Nasal Cannula 4.0 03/06/17 07:24 36.6 65 20 161/85 (110) 97 Nasal Cannula 4.0 03/06/17 07:00 36.6 65 18 161/85 (110) 97 Laboratory Results Last 24 Hours Test 03/06/17 06:18 03/07/17 04:44 White Blood Count 15.56 K/uL Red Blood Count 3.87 M/uL Hemoglobin 11.0 g/dL Hematocrit 34.6 % Mean Corpuscular Volume 89.4 fL Mean Corpuscular Hemoglobin 28.4 pg Mean Corpuscular Hemoglobin Concent 31.8 g/dl RDW Standard Deviation 57.2 fL RDW Coefficient of Variation 17.9 % Platelet Count 190 K/uL Mean Platelet Volume 12.3 fL Creatinine 1.10 mg/dl Est Creatinine Clear Calc Drug Dose 36.7 ml/min Estimated GFR () 59.3 Estimated GFR (Non- 51.2 Assessment and Plan 71yo F with concern for sepsis from uti poa, culture with multiple organisms, ID agrees with clinical picture and will recommend 7 day antibiotic course, concern for recurrent MARITZA as cT suggest some restenosis of bilateral stents and her blood pressure continues to be labile and difficult to control with multiple medications, Dr Jamison agrees to consider angiography with possible intervention if indicated Sepsis, secondary to UTI - POA metabolic encephalopathy that was present on admission resolved, PT has h/o ESBL pathogens and VRE - will continue the ertapenem and daptomycin. ID recommending one week total 03/08 last dose chronic hypoxic resp failure - has no breathing issues at this time, copd steroids with continued taper and O2 CKD stage 4 with superimposed acute kidney injury - DIONI resolved. HTN - better but remains labile; CTA suggests b/l renal artery stenosis with previous stents, will continue to treat with medication and consider return of renal artery stenosis pending evaluation by Dr Jamison, [facility].in good control despite severe osteoporosis with numerous compression fractures and several ones s/o kyphoplasty. opiate pain management hypokalemia - replete DVT proph - lovenox hypokalemia - replete PT, OT evals dispo - [facility] Continued [facility] stay due to: inadequate po fluid intake, inadequate oral pain control, multiple IV medications needed Discharge planning: retirement facility
[2017-03-07] MEDS: LATANOPROST 0.005% OP SOLN 2.5 ML BTL OPR SCH (20:21)
[2017-03-07] MEDS: ZOLPIDEM TARTRATE 5 MG TAB PO PRN (21:53)
[2017-03-07] MEDS: ACETAMINOPHEN 325 MG TAB PO PRN (23:51)
[2017-03-07] MEDS: HydrALAZINE HCL 20 MG/ML VIAL IV PRN (23:51)
[2017-03-08] VITALS: O2SAT 96
[2017-03-08 00:13] VITALS: BP 170/106; PULSE 65; TEMP 36.9; O2SAT 98
[2017-03-08 00:47] VITALS: BP 180/85
[2017-03-08] MEDS: SUCRALFATE 1 GM/10 ML UDC PO SCH ×4 (05:42→20:49)
[2017-03-08 06:52] LABS: BUN/CREATININE RATIO 16.5 (10-20); CALCIUM 8.8 mg/dl (8.5-10.1); CREATININE 1.1 mg/dl (0.60-1.20); POTASSIUM 4.4 mmol/L (3.5-5.1)
[2017-03-08 07:34] VITALS: BP 188/104; PULSE 66; TEMP 36.8; O2SAT 99
[2017-03-08] MEDS: LACTOBACILLUS ACIDOPHILUS (FLORANEX) TAB PO SCH ×3 (08:00→17:00)
[2017-03-08] MEDS: DULOXETINE (CYMBALTA) 30 MG CAP PO SCH (08:00)
[2017-03-08] MEDS: ALLOPURINOL 100 MG TAB PO SCH ×2 (08:00→20:00)
[2017-03-08] MEDS: NYSTATIN POWDER 15GM BTL EXT SCH ×3 (08:00→20:00)
[2017-03-08] MEDS: METHADONE HCL 10 MG TAB PO SCH ×3 (09:14→20:52)
[2017-03-08] MEDS: TIOTROPIUM BROMIDE 5 PUFF/90 MCG INH INH SCH (09:14)
[2017-03-08] MEDS: CHOLECALCIFEROL 1000 INTER.UNIT TAB PO SCH (09:16)
[2017-03-08] MEDS: SENNA 8.6 MG TAB PO SCH (09:16)
[2017-03-08] MEDS: MULTIVITAMIN TAB PO SCH (09:17)
[2017-03-08] MEDS: CARVEDILOL 25 MG TAB PO SCH ×2 (09:17→20:51)
[2017-03-08] MEDS: POTASSIUM CHLORIDE 10 MEQ TABCR PO SCH (09:17)
[2017-03-08] MEDS: PANTOprazole SOD 40 MG TAB PO SCH ×2 (09:18→20:53)
[2017-03-08] MEDS: FERROUS SULFATE 325 MG TAB PO SCH (09:18)
[2017-03-08] MEDS: BACLOFEN 10 MG TAB PO SCH ×3 (09:18→20:52)
[2017-03-08] MEDS: AMLODIPINE BESYLATE 5 MG TAB PO SCH (09:18)
[2017-03-08] MEDS: CHECK CLONIDINE PATCH PLACEMENT SCH ×2 (09:19→16:23)
[2017-03-08] MEDS: ENOXAPARIN 30 MG/0.3 ML SYR SQ SCH (09:19)
[2017-03-08] MEDS: CLONIDINE HCL 0.2 MG/24 HR TRANSDERM SYS TD SCH (09:19)
[2017-03-08] MEDS: CALCITONIN SALMON NA 200 IU/AC 3.7 ML BTL NAE SCH (09:23)
[2017-03-08] MEDS: POLYETHYLENE (MIRALAX) 17 GM PACK PO SCH (09:23)
[2017-03-08] MEDS: FLUTICASONE/SALMETEROL 250/50 (ADVAIR) 14 PUFF/1 INHALER INH SCH ×2 (09:23→20:50)
[2017-03-08] MEDS: FLUTICASONE PROPIONATE NA SPR 16 GM BTL NAE SCH ×2 (09:23→20:51)
[2017-03-08] MEDS: IPRATROPIUM BROMIDE/ALBUTEROL respimat INH INH SCH ×4 (09:23→20:50)
[2017-03-08] MEDS: ERTAPENEM IV 1,000 MG in SODIUM CHLORIDE 0.9% 50ML 50 ML IV SCH (11:19)
[2017-03-08] MEDS ORDERED: COUGH DROP (SUGAR FREE) LOZ 24 LOZ/1 BOX PO PRN (12:30)
--- NOTE | 2017-03-08 14:42 | DIAGNOSTIC IMAGING REPORT ---
THORACIC SPINE 3 VIEWS ROUTINE CLINICAL HISTORY: 71 years-old Female presenting with eval for acute compression Fx. TECHNIQUE: 3 views of the thoracic spine were obtained. COMPARISON: 10/18/2016. FINDINGS: Dextrocurvature of the thoracolumbar junction. Multilevel vertebroplasty changes as on prior exam. Interval increase in compression deformity of one of the lower thoracic levels. Milder compression deformity of the subjacent level unchanged. Possible additional mild height loss of a mid thoracic level subjacent to the superior most vertebroplasty level. Osteopenia. Multilevel degenerative change. IMPRESSION: Increased height loss at two levels in the mid to lower thoracic spine in comparison to prior exam. These raise concern for acute compression fractures. Correlate with point tenderness. Osteopenia. Electronically signed by: Karthik Araiza M.D. 03/08/2017 2:40 PM Dictated Date/Time: 03/08/2017 2:38 PM
--- NOTE | 2017-03-08 14:43 | DIAGNOSTIC IMAGING REPORT ---
TWO VIEW CHEST CLINICAL HISTORY: Dyspnea. FINDINGS: AP and lateral chest radiographs are compared to study dated 02/28/2017. Correlation is made with chest CT dated 07/22/2016. The AP view is degraded by patient rotation. The heart is enlarged and there is atherosclerotic calcification of the thoracic aorta. The pulmonary vasculature is noncongested. There are low lung volumes and chronic interstitial thickening. Small pleural effusions are identified on the lateral projection. There is bibasilar atelectasis. Linear atelectasis versus scarring is again noted in the right midlung. No pneumothorax is identified. The skeletal structures are osteopenic. Thoracic and lumbar compression deformities are identified with evidence of previous multilevel vertebroplasty. There is hyperkyphosis. Postoperative change and chronic posttraumatic deformity are seen in the left humerus. There are numerous healed bilateral rib fractures. IMPRESSION: 1. Cardiomegaly without radiographic evidence of congestive failure. 2. Low lung volumes. 3. Small pleural effusions. Electronically signed by: Tej Bernard M.D. 03/08/2017 2:42 PM Dictated Date/Time: 03/08/2017 2:39 PM
[2017-03-08] MEDS: LORAZEPAM 0.5 MG TAB PO PRN (14:50)
[2017-03-08] MEDS: DAPTOmycin IV 350 MG in SODIUM CHLORIDE 0.9% 50ML 50 ML IV SCH (14:51)
[2017-03-08] MEDS ORDERED: INVANZ PHARMACY CONSULT IN PROGRESS SCH (15:00)
[2017-03-08 15:44] VITALS: BP 143/91; PULSE 69; TEMP 36.6; O2SAT 96
[2017-03-08] MEDS ORDERED: BUMETANIDE IV 1 MG in SYRINGE 0 ML IV ONE (16:30)
[2017-03-08] MEDS: LATANOPROST 0.005% OP SOLN 2.5 ML BTL OPR SCH (20:53)
[2017-03-08] MEDS: ZOLPIDEM TARTRATE 5 MG TAB PO PRN (20:59)
[2017-03-09] VITALS: O2SAT 96
[2017-03-09] MEDS: CHECK CLONIDINE PATCH PLACEMENT SCH ×3 (00:25→16:00)
[2017-03-09 00:49] VITALS: BP 171/94; PULSE 72; TEMP 37; O2SAT 98
--- NOTE | 2017-03-09 05:13 | Progress Note ---
Subjective Date of Service: Mar 08, 2017. Subjective Pt evaluation today including: conversation w/ patient, physical exam, chart review, lab review, review of studies (cxr, t-spine x-rays), conversation w/ learning and development consultant (vascular), review of inpatient medication list Pain: mid thoracic back - requests heat for such PO Intake: normal Voiding: walker catheter in place feels a little "wheezy" today and mild cough denies dyspnea at rest no chest pain no abdominal pain pain in back is worse than baseline Problem List Medical Problems: (1) Altered mental status Status: Acute (2) Anemia Status: Acute (3) Bilateral pneumonia Status: Acute (4) CHF (congestive heart failure) Status: Acute (5) Chronic Kidney Disease, Stage Iii (Moderate) Status: Chronic (6) COPD exacerbation Status: Acute (7) COPD exacerbation Status: Acute (8) Crystal arthritis Status: Chronic (9) Dehydration Status: Acute (10) Duodenal bulb ulcer Status: Chronic (11) Failure of outpatient treatment Status: Acute (12) Failure of outpatient treatment Status: Acute (13) Gout Status: Chronic (14) Hyperlipidemia Nec/Nos Status: Chronic (15) Hypertension Status: Chronic (16) Hypoxemia Status: Acute (17) Hypoxia Status: Acute (18) Hypoxia Status: Acute (19) Hypoxia Status: Acute (20) Hypoxia Status: Acute (21) Lumbar compression fracture Status: Chronic (22) Opiate use Status: Chronic (23) Osteoporosis Status: Chronic (24) Peripheral edema Status: Acute (25) Pneumonia Status: Acute (26) Pneumonia Status: Acute (27) Pneumonia involving right lung Status: Acute (28) Respiratory acidosis Status: Acute (29) Respiratory distress Status: Acute (30) Right renal artery stenosis Status: Chronic (31) Secondary hyperparathyroidism Status: Chronic (32) UTI (urinary tract infection) Status: Acute Review of Systems Constitutional: No fever Respiratory: No shortness of breath Cardiac: No chest pain Abdomen: No pain Objective Vital Signs Date Time Temp Pulse Resp B/P (MAP) Pulse Ox O2 Delivery O2 Flow Rate FiO2 03/08/17 16:00 Nasal Cannula 4.0 03/08/17 15:44 36.6 69 20 143/91 (108) 96 Nasal Cannula 4.0 03/08/17 08:30 Nasal Cannula 4.0 03/08/17 07:34 36.8 66 16 188/104 (132) 99 Nasal Cannula 4.0 03/08/17 00:47 180/85 (116) 03/08/17 00:13 36.9 65 20 170/106 (127) 98 Nasal Cannula 4.0 03/08/17 00:00 96 Nasal Cannula 4.0 Physical Exam General Appearance: no apparent distress ENT: pharynx normal Neck: no JVD Respiratory/Chest: no respiratory distress, no accessory muscle use, + wheezing Cardiovascular: regular rate, rhythm, no gallop Abdomen: normal bowel sounds, non tender, soft, no organomegaly, + distended ( mild) Extremities: + pedal edema, + swelling (left leg worse than right leg) Comments: musculo: back - tender to palpation along t-spine spinous processes Laboratory Results Last 24 Hours Test 03/08/17 05:42 03/08/17 05:54 Sodium Level 140 mmol/L Potassium Level 4.4 mmol/L Chloride Level 104 mmol/L Carbon Dioxide Level 30 mmol/L Anion Gap 6.0 mmol/L Blood Urea Nitrogen 18 mg/dl Creatinine 1.10 mg/dl Est Creatinine Clear Calc Drug Dose 36.7 ml/min Estimated GFR () 59.3 Estimated GFR (Non- 51.2 BUN/Creatinine Ratio 16.5 Random Glucose 63 mg/dl Calcium Level 8.8 mg/dl Total Creatine Kinase 38 U/L Magnesium Level 2.0 mg/dl Assessment and Plan 71yo male: 1. sepsis, secondary to UTI - although 2 urine cultures were negative. [id number] has received 7 days of ertapenem to cover ESBL pathogens and daptomycin for VRE. Stop antibiotics after to 2. chronic hypoxic resp failure - stable on home O2 amount 3. CKD stage 4 with superimposed acute kidney injury - DIONI resolved. Cr now at baseline. 4. COPD - stable/controlled. mild wheezing today but suspect this is due to pulmonary edema. Cont inhalers Cont prednisone 5. HTN - ongoing, severe - despite multiple meds. Increase hydralazine to 75mg TID. Renal arteries on CTA with concern for restenosis. Vascular consulted; possible A-gram on Monday and stenting if necessary 6. chronic pain syndrome - continue all home meds (methadone, etc). Cont dilaudid prn. 7. DVT proph - lovenox 8. GERD - PPI 9. chronic diastolic CHF - suspect some element of acute/chronic CHF. CXR today with b/l pleural effusions Has not had lasix during most of her stay bumex 1mg IV x 1 10. h/o severe osteoporosis with numerous compression fractures and several ones s/p kyphoplasty. x-rays today with possible new or worsening compression fractures k pad pain meds prn will discuss results w/ patient no surgical evaluation at this time has previously declined TLSO brace 11. dispo - [facility] Continued [facility] stay due to: multiple IV medications needed, other (back pain, renal artery stenosis) Discharge planning: detention facility
[2017-03-09] MEDS: SUCRALFATE 1 GM/10 ML UDC PO SCH ×4 (05:49→21:00)
[2017-03-09] MEDS ORDERED: CEFAZOLIN SOD 1000MG/55 ML D5W IV SCH (06:00)
[2017-03-09] MEDS: LORAZEPAM 0.5 MG TAB PO PRN ×2 (06:17→14:42)
[2017-03-09] MEDS: HYDROCODONE/ACETAMI 10/325 TAB PO PRN (06:18)
[2017-03-09 07:53] VITALS: BP_SYST 184; BP_SYST 188; BP_DIAS 100; BP_DIAS 102; PULSE 72; TEMP 36.8; O2SAT 98
[2017-03-09] MEDS: DULOXETINE (CYMBALTA) 30 MG CAP PO SCH (08:00)
[2017-03-09] MEDS: ALLOPURINOL 100 MG TAB PO SCH ×2 (08:00→20:00)
[2017-03-09] MEDS: LACTOBACILLUS ACIDOPHILUS (FLORANEX) TAB PO SCH ×3 (08:00→17:00)
[2017-03-09] MEDS: POLYETHYLENE (MIRALAX) 17 GM PACK PO SCH (08:00)
[2017-03-09] MEDS: NYSTATIN POWDER 15GM BTL EXT SCH ×3 (08:00→20:00)
[2017-03-09] MEDS: METHADONE HCL 10 MG TAB PO SCH ×3 (10:15→20:59)
[2017-03-09] MEDS: FLUTICASONE/SALMETEROL 250/50 (ADVAIR) 14 PUFF/1 INHALER INH SCH ×2 (10:16→20:57)
[2017-03-09] MEDS: IPRATROPIUM BROMIDE/ALBUTEROL respimat INH INH SCH ×4 (10:16→20:57)
[2017-03-09] MEDS: FLUTICASONE PROPIONATE NA SPR 16 GM BTL NAE SCH ×2 (10:17→20:57)
[2017-03-09] MEDS: CALCITONIN SALMON NA 200 IU/AC 3.7 ML BTL NAE SCH (10:17)
[2017-03-09] MEDS: FERROUS SULFATE 325 MG TAB PO SCH (10:18)
[2017-03-09] MEDS: TIOTROPIUM BROMIDE 5 PUFF/90 MCG INH INH SCH (10:18)
[2017-03-09] MEDS: BACLOFEN 10 MG TAB PO SCH ×3 (10:18→20:59)
[2017-03-09] MEDS: CHOLECALCIFEROL 1000 INTER.UNIT TAB PO SCH (10:18)
[2017-03-09] MEDS: MULTIVITAMIN TAB PO SCH (10:20)
[2017-03-09] MEDS: SENNA 8.6 MG TAB PO SCH (10:21)
[2017-03-09] MEDS: AMLODIPINE BESYLATE 5 MG TAB PO SCH (10:21)
[2017-03-09] MEDS: PANTOprazole SOD 40 MG TAB PO SCH ×2 (10:21→21:00)
[2017-03-09] MEDS: POTASSIUM CHLORIDE 10 MEQ TABCR PO SCH (10:22)
[2017-03-09] MEDS: ENOXAPARIN 40 MG/0.4 ML SYR SQ SCH (10:22)
[2017-03-09] MEDS: CARVEDILOL 25 MG TAB PO SCH ×2 (10:23→20:58)
[2017-03-09 10:53] LABS: HEMATOCRIT 35.3 % (37-47); MEAN CELL VOLUME 88.9 fL (80-100); MEAN CORPUSCULAR HGB CONC 32.6 g/dl (32-36); PLATELET COUNT 210 K/uL (130-400); RED BLOOD COUNT 3.97 M/uL (4.2-5.4); WHITE BLOOD COUNT 13.04 K/uL (4.8-10.8)
[2017-03-09 11:16] LABS: BUN/CREATININE RATIO 15.2 (10-20); CALCIUM 8.9 mg/dl (8.5-10.1); CREATININE 1.1 mg/dl (0.60-1.20); POTASSIUM 3.7 mmol/L (3.5-5.1)
[2017-03-09 13:10] VITALS: BP 184/102; PULSE 72; TEMP 36.8; O2SAT 98
--- NOTE | 2017-03-09 15:00 | Progress Note ---
Progress Note Date of Service Mar 09, 2017. Progress Note 71 yo female recently admitted with sepsis secondary to UTI and dehydration and whose admission has been complicated by altered MS, suspected aspiration pneumonia, acute CHF, and COPD exacerbation. Patient has also been experiencing uncontrolled HTN and has a past history of renal stenosis with stents and is no scheduled for renal angiogram in the operating room tomorrow. Patient has a complex PMH including recent admission in 09/2016 for acute hypoxic respiratory failure that required emergent intubation and was diagnosed with pneumonia and COPD exacerbation than as well. Patient is baseline 3 LPM oxygen dependent normally and is currently on 4 LPM NC. PMH is also significant for DVT, CAD, reflux with ulcers, chronic pain with narcotic dependence, compression fractures of the spine, CKD stage 4 with resolving DIONI this admission, anemia, anxiety, depression, and lymphoma in remission. On exam patient was acutely SOB at rest with decreased BS at the bases and expiratory wheezes. Heart RRR with soft systolic murmur. She had a reassuring airway exam with Mallampati I, adequate neck extension, good mouth opening, normal TMD and edentulous. The patient was consented for both GA and sedation, with and without invasive monitoring. We discussed that she is high risk for both types of anesthesia, due to her increased risk of aspiration during sedation as well as the potential to require prolonged intubation due to her compromised respiratory status in the event of a GA. The patient is motivated to try conscious sedation at this time, but we discussed that final decision for the anesthetic plan would occur with the assigned team and Dr. Jamison tomorrow. Patient was advised to be NPO after midnight tonight and is currently scheduled for tomorrow around 11:30. Please ensure that the patient takes all of her prescribed inhalers tomorrow morning and she should take her normal morning meds with a sip of water at least 2 hours prior to her scheduled start time (11: 30 AM). In particular, she should take her carvedilol, protonix, prednisone, amlodipine, baclofen, and methadone as scheduled. She can take her [place] as needed up to 2 hours prior to surgery. Clonidine patch should remain on. Please call anesthesia with any questions or concerns. Amelia Blair MD PhD Anesthesiologist
[2017-03-09 16:21] VITALS: BP 158/81; PULSE 69; TEMP 36.6; O2SAT 96
[2017-03-09] MEDS ORDERED: FUROSEMIDE 40 MG TAB PO ONE (16:45)
--- NOTE | 2017-03-09 18:18 | DIAGNOSTIC IMAGING REPORT ---
L VENOUS DOPP LOWER EXT UNILAT CLINICAL HISTORY: 71 years-old Female presenting with left leg edema, prolonged hospital stay; eval for DVT. TECHNIQUE: Real-time grayscale and color and spectral Doppler ultrasound imaging of the veins of the left lower extremity was performed. Compression and augmentation were also utilized. COMPARISON: 10/17/2016. FINDINGS: Left: Common femoral vein: Thin linear defects in the common femoral vein, chronic and possibly related to prior thrombus. No current filling defect to suggest thrombus. Femoral vein: Patent. Greater saphenous vein: Patent. Popliteal vein: Patent. Calf veins: Limited visualization secondary to subcutaneous edema. Other: None. IMPRESSION: No evidence of deep venous thrombosis. Electronically signed by: Karthik Araiza M.D. 03/09/2017 6:17 PM Dictated Date/Time: 03/09/2017 6:15 PM
[2017-03-09] MEDS: ZOLPIDEM TARTRATE 5 MG TAB PO PRN (21:00)
[2017-03-09] MEDS: LATANOPROST 0.005% OP SOLN 2.5 ML BTL OPR SCH (21:00)
[2017-03-09 23:19] VITALS: BP 147/81; PULSE 74; TEMP 36.8; O2SAT 97
--- NOTE | 2017-03-10 00:36 | Progress Note ---
Subjective Date of Service: Mar 09, 2017. Subjective Pt evaluation today including: conversation w/ patient, conversation w/ family (son by phone), physical exam, chart review, lab review, conversation w/ corporate learning consultant (vascular), review of inpatient medication list Pain: back - no worse than previous PO Intake: normal Voiding: walker catheter in place patient to have renal artery arteriogram tomorrow by Dr. Jamison no new complaints today breathing IS better no cough Problem List Medical Problems: (1) Altered mental status Status: Acute (2) Anemia Status: Acute (3) Bilateral pneumonia Status: Acute (4) CHF (congestive heart failure) Status: Acute (5) Chronic Kidney Disease, Stage Iii (Moderate) Status: Chronic (6) COPD exacerbation Status: Acute (7) COPD exacerbation Status: Acute (8) Crystal arthritis Status: Chronic (9) Dehydration Status: Acute (10) Duodenal bulb ulcer Status: Chronic (11) Failure of outpatient treatment Status: Acute (12) Failure of outpatient treatment Status: Acute (13) Gout Status: Chronic (14) Hyperlipidemia Nec/Nos Status: Chronic (15) Hypertension Status: Chronic (16) Hypoxemia Status: Acute (17) Hypoxia Status: Acute (18) Hypoxia Status: Acute (19) Hypoxia Status: Acute (20) Hypoxia Status: Acute (21) Lumbar compression fracture Status: Chronic (22) Opiate use Status: Chronic (23) Osteoporosis Status: Chronic (24) Peripheral edema Status: Acute (25) Pneumonia Status: Acute (26) Pneumonia Status: Acute (27) Pneumonia involving right lung Status: Acute (28) Respiratory acidosis Status: Acute (29) Respiratory distress Status: Acute (30) Right renal artery stenosis Status: Chronic (31) Secondary hyperparathyroidism Status: Chronic (32) UTI (urinary tract infection) Status: Acute Review of Systems Constitutional: No fever Respiratory: No cough Cardiac: No chest pain Abdomen: No pain Objective Vital Signs Date Time Temp Pulse Resp B/P (MAP) Pulse Ox O2 Delivery O2 Flow Rate FiO2 03/09/17 16:21 36.6 69 18 158/81 (106) 96 4.0 03/09/17 16:00 Nasal Cannula 4.0 03/09/17 13:10 36.8 72 18 184/102 98 Nasal Cannula 4.0 03/09/17 11:27 Nasal Cannula 4.0 03/09/17 07:53 36.8 72 16 188/100 (129) 98 Nasal Cannula 4.0 184/102 (129) 03/09/17 00:49 37.0 72 18 171/94 (119) 98 4.0 03/09/17 00:00 96 Nasal Cannula 4.0 Physical Exam General Appearance: no apparent distress ENT: pharynx normal Neck: no JVD Respiratory/Chest: lungs clear, no respiratory distress, no accessory muscle use Cardiovascular: regular rate, rhythm, no gallop, no murmur Abdomen: normal bowel sounds, non tender, soft, no organomegaly Extremities: + pedal edema (left leg - 1+; right leg - none; pulses 2+ b/l) Comments: back - severe kyphosis Laboratory Results Last 24 Hours Test 03/09/17 09:48 White Blood Count 13.04 K/uL Red Blood Count 3.97 M/uL Hemoglobin 11.5 g/dL Hematocrit 35.3 % Mean Corpuscular Volume 88.9 fL Mean Corpuscular Hemoglobin 29.0 pg Mean Corpuscular Hemoglobin Concent 32.6 g/dl Platelet Count 210 K/uL Sodium Level 141 mmol/L Potassium Level 3.7 mmol/L Chloride Level 100 mmol/L Carbon Dioxide Level 34 mmol/L Anion Gap 6.0 mmol/L Blood Urea Nitrogen 17 mg/dl Creatinine 1.10 mg/dl Est Creatinine Clear Calc Drug Dose 36.5 ml/min Estimated GFR () 59.3 Estimated GFR (Non- 51.2 BUN/Creatinine Ratio 15.2 Random Glucose 69 mg/dl Calcium Level 8.9 mg/dl Magnesium Level 2.0 mg/dl Assessment and Plan 71yo male: 1. sepsis, secondary to UTI - resolved; abx have been stopped. 2. chronic hypoxic resp failure - stable on home O2 amount 3. CKD stage 4 with superimposed acute kidney injury - DIONI resolved. Cr now at baseline. 4. COPD - stable/controlled. 5. HTN - ongoing, severe - despite multiple meds. Renal arteries on CTA with concern for restenosis of prior stents. Vascular consulted. Dr. Jamison to perform arteriogram tomorrow with possible re-stenting. 6. chronic pain syndrome - continue all home meds (methadone, etc). Cont dilaudid prn. 7. DVT proph - lovenox 8. GERD - PPI 9. acute/chronic diastolic CHF - improved; resume lasix today (give 40mg today only); then resume 20mg tomorrow. 10. h/o severe osteoporosis with numerous compression fractures - repeat t- spine x-rays yesterday with probable acute/chronic compression fractures k-pad heating unit pain meds prn 11. dispo - [facility] following tomorrow's procedure probably Monday son updated by phone 03/09/17 Continued [facility] stay due to: multiple IV medications needed, other (back pain, renal artery stenosis) Discharge planning: group home facility
[2017-03-10] MEDS: CHECK CLONIDINE PATCH PLACEMENT SCH ×4 (01:48→23:36)
[2017-03-10] MEDS: LORAZEPAM INJ 1 MG in SYRINGE 0.5 ML IV PRN (06:11)
[2017-03-10] MEDS: SUCRALFATE 1 GM/10 ML UDC PO SCH ×4 (06:11→20:56)
[2017-03-10 07:18] VITALS: BP 135/97; PULSE 74; TEMP 36.8; O2SAT 96
[2017-03-10 07:26] LABS: BUN/CREATININE RATIO 11.8 (10-20); CALCIUM 8.3 mg/dl (8.5-10.1); CREATININE 1.2 mg/dl (0.60-1.20); POTASSIUM 3.8 mmol/L (3.5-5.1)
[2017-03-10] MEDS: DULOXETINE (CYMBALTA) 30 MG CAP PO SCH (08:00)
[2017-03-10] MEDS: CHOLECALCIFEROL 1000 INTER.UNIT TAB PO SCH (08:00)
[2017-03-10] MEDS: MULTIVITAMIN TAB PO SCH (08:00)
[2017-03-10] MEDS: NYSTATIN POWDER 15GM BTL EXT SCH ×3 (08:00→20:00)
[2017-03-10] MEDS: METHADONE HCL 10 MG TAB PO SCH ×3 (08:00→21:11)
[2017-03-10] MEDS: ENOXAPARIN 40 MG/0.4 ML SYR SQ SCH (08:00)
[2017-03-10] MEDS: POLYETHYLENE (MIRALAX) 17 GM PACK PO SCH (08:00)
[2017-03-10] MEDS: LACTOBACILLUS ACIDOPHILUS (FLORANEX) TAB PO SCH ×3 (08:00→17:00)
[2017-03-10] MEDS: ALLOPURINOL 100 MG TAB PO SCH ×2 (08:00→20:00)
[2017-03-10] MEDS: CALCITONIN SALMON NA 200 IU/AC 3.7 ML BTL NAE SCH (09:08)
[2017-03-10] MEDS: FLUTICASONE PROPIONATE NA SPR 16 GM BTL NAE SCH ×2 (09:08→20:59)
[2017-03-10] MEDS: TIOTROPIUM BROMIDE 5 PUFF/90 MCG INH INH SCH (09:09)
[2017-03-10] MEDS: IPRATROPIUM BROMIDE/ALBUTEROL respimat INH INH SCH ×4 (09:09→20:59)
[2017-03-10] MEDS: FLUTICASONE/SALMETEROL 250/50 (ADVAIR) 14 PUFF/1 INHALER INH SCH ×2 (09:09→20:59)
[2017-03-10] MEDS: BACLOFEN 10 MG TAB PO SCH ×3 (09:14→21:00)
[2017-03-10] MEDS: POTASSIUM CHLORIDE 10 MEQ TABCR PO SCH (09:15)
[2017-03-10] MEDS: SENNA 8.6 MG TAB PO SCH (09:16)
[2017-03-10] MEDS: PANTOprazole SOD 40 MG TAB PO SCH ×2 (09:16→21:06)
[2017-03-10] MEDS: CARVEDILOL 25 MG TAB PO SCH (09:18)
[2017-03-10] MEDS: AMLODIPINE BESYLATE 5 MG TAB PO SCH (09:18)
--- NOTE | 2017-03-10 10:51 | Progress Note ---
Progress Note Date of Service Mar 10, 2017. Progress Note Patient for renal artery arteriogram with possible intervention bilaterally. I have discussed the risks options and benefits of the procedure with the patient. The patient understands the risks options and benefits and agrees to the procedure. I have examined the patient, reviewed the History & Physical and in the interval since the performance of the History & Physical I have noted the following changes of clinical significance: No changes noted
[2017-03-10] MEDS: SODIUM CHLORIDE 0.9% 500ML 500 ML IV SCH ×3 (12:45→21:08)
[2017-03-10] MEDS ORDERED: CEFAZOLIN SOD 1000MG/55 ML D5W IV ONE (13:01)
[2017-03-10] MEDS ORDERED: FENTANYL CITRATE INJ 50 MCG/1 ML 2 ML VIAL ONE ×5 (13:25→16:33)
[2017-03-10] MEDS ORDERED: MIDAZOLAM HCL 1 MG/ML 2ML VIAL ONE (13:25)
[2017-03-10] MEDS ORDERED: DEXTROSE 50% 50 ML SYR ONE (13:58)
[2017-03-10] MEDS ORDERED: LIDOCAINE HCL 1% 20 ML VIAL INJ ONE (14:12)
[2017-03-10] MEDS: FERROUS SULFATE 325 MG TAB PO SCH (14:24)
[2017-03-10] MEDS ORDERED: PROMETHAZINE HCL INJ 6.25 MG in SODIUM CHLORIDE 0.9% 50ML 50 ML IV PRN (15:00)
[2017-03-10] MEDS ORDERED: ONDANSETRON INJ 2 MG/ML 2 ML VIAL IV PRN (15:00)
[2017-03-10] MEDS ORDERED: ATROPINE SULFATE 0.1 MG/ML 5ML SYR IV PRN (15:00)
[2017-03-10] MEDS ORDERED: EpHEDrine SULFATE INJ 50 MG/ML AMP IV PRN (15:00)
[2017-03-10] MEDS ORDERED: HEPARIN SOD (PORCINE) 1000 UNIT/ML 10 ML VIAL ONE (15:18)
[2017-03-10] MEDS ORDERED: PROPOFOL IV EMULSION 10 MG/ML 20 ML VIAL IV ONE (15:18)
[2017-03-10] MEDS ORDERED: SODIUM CHLORIDE 0.9% 1000ML 1,000 ML IV SCH (15:30)
[2017-03-10] MEDS ORDERED: CLOPIDOGREL BISULFATE 300 MG TAB PO STA (15:43)
[2017-03-10] MEDS ORDERED: IODIXANOL (VISIPAQUE) 270 MG/ML 150ML XX ONE (15:52)
[2017-03-10] MEDS: FENTANYL CITRATE INJ 50 MCG/1 ML 2 ML VIAL IV PRN ×6 (16:09→16:35)
[2017-03-10 16:11] VITALS: BP 131/77; PULSE 58; TEMP 36.7; O2SAT 99
--- NOTE | 2017-03-10 16:46 | Anesthesiology Progress Note ---
Anesthesia Post Op Note Date & Time Mar 10, 2017 at 16:46 Vital Signs Pain Intensity: 3 Vital Signs Past 12 Hours Date Time Temp Pulse Resp B/P (MAP) Pulse Ox O2 Delivery O2 Flow Rate FiO2 03/10/17 16:11 36.7 58 18 131/77 (95) 99 Room Air 03/10/17 16:10 109/76 03/10/17 16:10 109/76 03/10/17 16:09 64 10 97 03/10/17 16:09 57 10 03/10/17 16:09 57 10 03/10/17 16:09 64 10 97 03/10/17 16:05 116/73 03/10/17 16:05 116/73 03/10/17 16:04 61 16 03/10/17 16:04 61 16 100 03/10/17 16:04 61 16 100 03/10/17 16:04 61 16 03/10/17 16:00 131/75 03/10/17 16:00 131/75 03/10/17 15:59 61 13 03/10/17 15:59 61 13 99 03/10/17 15:59 61 13 03/10/17 15:59 61 13 99 03/10/17 15:55 135/76 03/10/17 15:55 135/76 03/10/17 15:54 62 12 98 03/10/17 15:54 62 12 03/10/17 15:54 62 12 98 03/10/17 15:54 62 12 03/10/17 15:50 148/81 03/10/17 15:50 148/81 03/10/17 15:49 62 18 03/10/17 15:49 62 18 148/82 100 03/10/17 15:49 36.6 62 20 148/82 100 Oxymask 10 03/10/17 15:49 62 18 03/10/17 15:49 62 18 148/82 100 03/10/17 10:08 Nasal Cannula 4.0 03/10/17 07:18 36.8 74 16 135/97 (110) 96 4.0 Notes Mental Status: alert / awake / arousable, participated in evaluation Pt Amnestic to Procedure: Yes Nausea / Vomiting: adequately controlled Pain: adequately controlled Airway Patency, RR, SpO2: stable & adequate BP & HR: stable & adequate Hydration State: stable & adequate Anesthetic Complications: no major complications apparent
[2017-03-10 17:09] VITALS: BP 126/74; PULSE 64; TEMP 36.4; O2SAT 99
--- NOTE | 2017-03-10 20:33 | Progress Note ---
Subjective Date of Service: Mar 10, 2017. Subjective Pt evaluation today including: conversation w/ patient, physical exam, chart review, lab review Pain: none during my visit (saw her post-op) PO Intake: tolerated dinner post-op Voiding: walker catheter in place underwent successful placement of b/l renal artery stents for instent stenosis of previously placed stents feels good post-op BPs are MARKEDLY improved post-op (all < 150 systolic) Problem List Medical Problems: (1) Altered mental status Status: Acute (2) Anemia Status: Acute (3) Bilateral pneumonia Status: Acute (4) CHF (congestive heart failure) Status: Acute (5) Chronic Kidney Disease, Stage Iii (Moderate) Status: Chronic (6) COPD exacerbation Status: Acute (7) COPD exacerbation Status: Acute (8) Crystal arthritis Status: Chronic (9) Dehydration Status: Acute (10) Duodenal bulb ulcer Status: Chronic (11) Failure of outpatient treatment Status: Acute (12) Failure of outpatient treatment Status: Acute (13) Gout Status: Chronic (14) Hyperlipidemia Nec/Nos Status: Chronic (15) Hypertension Status: Chronic (16) Hypoxemia Status: Acute (17) Hypoxia Status: Acute (18) Hypoxia Status: Acute (19) Hypoxia Status: Acute (20) Hypoxia Status: Acute (21) Lumbar compression fracture Status: Chronic (22) Opiate use Status: Chronic (23) Osteoporosis Status: Chronic (24) Peripheral edema Status: Acute (25) Pneumonia Status: Acute (26) Pneumonia Status: Acute (27) Pneumonia involving right lung Status: Acute (28) Respiratory acidosis Status: Acute (29) Respiratory distress Status: Acute (30) Right renal artery stenosis Status: Chronic (31) Secondary hyperparathyroidism Status: Chronic (32) UTI (urinary tract infection) Status: Acute Review of Systems Constitutional: No fever Respiratory: No cough, No shortness of breath Cardiac: No chest pain, No orthopnea Abdomen: No pain Objective Vital Signs Date Time Temp Pulse Resp B/P (MAP) Pulse Ox O2 Delivery O2 Flow Rate FiO2 03/10/17 17:09 36.4 64 18 126/74 (91) 99 Room Air 03/10/17 16:56 62 13 03/10/17 16:56 64 13 111/80 96 03/10/17 16:51 63 26 97 03/10/17 16:51 66 26 03/10/17 16:50 93/79 03/10/17 16:46 64 17 95 03/10/17 16:46 61 17 03/10/17 16:45 132/72 03/10/17 16:41 67 17 03/10/17 16:41 68 17 97 03/10/17 16:40 123/78 03/10/17 16:36 62 20 03/10/17 16:36 63 20 97 03/10/17 16:35 120/77 03/10/17 16:31 59 17 03/10/17 16:31 63 17 97 03/10/17 16:30 120/77 03/10/17 16:26 62 14 03/10/17 16:26 61 14 97 03/10/17 16:25 117/71 03/10/17 16:21 60 19 03/10/17 16:21 63 19 96 03/10/17 16:20 133/73 03/10/17 16:16 61 18 96 03/10/17 16:16 62 18 03/10/17 16:15 125/78 03/10/17 16:11 62 19 03/10/17 16:11 36.7 58 18 131/77 (95) 99 Room Air 03/10/17 16:11 62 19 99 03/10/17 16:10 109/76 03/10/17 16:10 109/76 03/10/17 16:09 64 10 97 03/10/17 16:09 57 10 03/10/17 16:09 57 10 03/10/17 16:09 64 10 97 03/10/17 16:05 116/73 03/10/17 16:05 116/73 03/10/17 16:04 61 16 03/10/17 16:04 61 16 100 03/10/17 16:04 61 16 100 03/10/17 16:04 61 16 03/10/17 16:00 Nasal Cannula 4.0 03/10/17 16:00 131/75 03/10/17 16:00 131/75 03/10/17 15:59 61 13 03/10/17 15:59 61 13 99 03/10/17 15:59 61 13 03/10/17 15:59 61 13 99 03/10/17 15:55 135/76 03/10/17 15:55 135/76 03/10/17 15:54 62 12 98 10/13/17 15:54 62 12 03/10/17 15:54 62 12 98 03/10/17 15:54 62 12 03/10/17 15:50 148/81 03/10/17 15:50 148/81 03/10/17 15:49 62 18 03/10/17 15:49 62 18 148/82 100 03/10/17 15:49 36.6 62 20 148/82 100 Oxymask 10 03/10/17 15:49 62 18 03/10/17 15:49 62 18 148/82 100 03/10/17 10:08 Nasal Cannula 4.0 03/10/17 07:18 36.8 74 16 135/97 (110) 96 4.0 03/10/17 04:00 Nasal Cannula 4.0 03/09/17 23:19 36.8 74 18 147/81 (103) 97 Nasal Cannula 4.0 Physical Exam General Appearance: no apparent distress ENT: pharynx normal Neck: no JVD Respiratory/Chest: lungs clear, no respiratory distress, no accessory muscle use Cardiovascular: regular rate, rhythm, no gallop, no murmur Abdomen: normal bowel sounds, non tender, soft, no organomegaly Extremities: no pedal edema Neurologic/Psychiatric: alert, oriented x 3 Laboratory Results Last 24 Hours Test 03/10/17 05:50 03/10/17 10:59 03/10/17 13:39 03/10/17 14:37 Sodium Level 141 mmol/L Potassium Level 3.8 mmol/L Chloride Level 101 mmol/L Carbon Dioxide Level 35 mmol/L Anion Gap 5.0 mmol/L Blood Urea Nitrogen 14 mg/dl Creatinine 1.20 mg/dl Est Creatinine Clear Calc Drug Dose 33.3 ml/min Estimated GFR () 53.4 Estimated GFR (Non- 46.1 BUN/Creatinine Ratio 11.8 Random Glucose 60 mg/dl Calcium Level 8.3 mg/dl Magnesium Level 2.0 mg/dl Bedside Glucose 67 mg/dl 72 mg/dl 116 mg/dl Test 03/10/17 16:44 Bedside Glucose 98 mg/dl Assessment and Plan 71yo male: 1. sepsis, secondary to UTI - resolved; abx have been stopped. 2. chronic hypoxic resp failure - stable on home O2 amount 3. CKD stage 4 with superimposed acute kidney injury - DIONI resolved. Cr stable. Repeat BMP in am due to dye load and procedure done today. 4. COPD - stable/controlled. 5. HTN - ongoing, severe - was likely due to restenosis of previously placed renal artery stents. She is s/p placement of new b/l renal artery stents today by Dr. Jamison. Anticipate her BPs will be markedly improved moving forward. Parameters placed for holding of hydralazine/amlodipine if BPs are too low. Reduce dose of coreg to 12.5mg BID. Cont clonidine (no abrupt stopping of such due to risk of rebound). 6. chronic pain syndrome - continue all home meds (methadone, etc). Cont dilaudid prn. 7. DVT proph - lovenox 8. GERD - PPI 9. acute/chronic diastolic CHF - acute component resolved. 10. h/o severe osteoporosis with numerous compression fractures - repeat t- spine x-rays this admission with probable acute/chronic compression fractures k-pad heating unit pain meds prn 11. dispo - [facility] - possibly tomorrow if stable BPs and stable labs son updated by phone 03/09/17 Continued [facility] stay due to: multiple IV medications needed, other (back pain, renal artery stenosis) Discharge planning: nursing home facility
[2017-03-10] MEDS: LATANOPROST 0.005% OP SOLN 2.5 ML BTL OPR SCH (21:05)
[2017-03-10] MEDS: CARVEDILOL 12.5 MG TAB PO SCH (21:08)
[2017-03-10 21:15] VITALS: BP 104/71; PULSE 64
[2017-03-10] MEDS: LORAZEPAM 0.5 MG TAB PO PRN (21:21)
[2017-03-10] MEDS: ZOLPIDEM TARTRATE 5 MG TAB PO PRN (23:35)
[2017-03-11 00:42] VITALS: BP 120/75; PULSE 62; TEMP 36.5; O2SAT 99
[2017-03-11] MEDS: LORAZEPAM 0.5 MG TAB PO PRN ×2 (04:10→15:56)
[2017-03-11] MEDS: SODIUM CHLORIDE 0.9% 500ML 500 ML IV SCH (04:13)
[2017-03-11] MEDS: SUCRALFATE 1 GM/10 ML UDC PO SCH ×4 (06:26→20:14)
[2017-03-11 07:21] LABS: HEMATOCRIT 29.1 % (37-47); MEAN CELL VOLUME 89.5 fL (80-100); MEAN CORPUSCULAR HEMOGLOBIN 28.6 pg (25-34); MEAN PLATELET VOLUME 11.3 fL (7.4-10.4); PLATELET COUNT 222 K/uL (130-400); RED BLOOD COUNT 3.25 M/uL (4.2-5.4); WHITE BLOOD COUNT 12.24 K/uL (4.8-10.8)
[2017-03-11] MEDS: NYSTATIN POWDER 15GM BTL EXT SCH ×3 (07:40→20:00)
[2017-03-11] MEDS: CHECK CLONIDINE PATCH PLACEMENT SCH ×3 (07:41→22:58)
[2017-03-11] MEDS: DULOXETINE (CYMBALTA) 30 MG CAP PO SCH (07:43)
[2017-03-11] MEDS: POLYETHYLENE (MIRALAX) 17 GM PACK PO SCH (07:48)
[2017-03-11 07:52] LABS: BUN/CREATININE RATIO 11.9 (10-20); CALCIUM 7.2 mg/dl (8.5-10.1)
[2017-03-11] MEDS: ALLOPURINOL 100 MG TAB PO SCH ×2 (07:52→20:12)
[2017-03-11] MEDS: ENOXAPARIN 40 MG/0.4 ML SYR SQ SCH (07:56)
[2017-03-11] MEDS: METHADONE HCL 10 MG TAB PO SCH ×3 (07:56→20:20)
[2017-03-11] MEDS: SENNA 8.6 MG TAB PO SCH (07:57)
[2017-03-11] MEDS: CHOLECALCIFEROL 1000 INTER.UNIT TAB PO SCH (07:57)
[2017-03-11] MEDS: BACLOFEN 10 MG TAB PO SCH ×3 (07:58→20:11)
[2017-03-11] MEDS: AMLODIPINE BESYLATE 5 MG TAB PO SCH (07:58)
[2017-03-11] MEDS: LACTOBACILLUS ACIDOPHILUS (FLORANEX) TAB PO SCH ×3 (07:58→16:54)
[2017-03-11] MEDS: MULTIVITAMIN TAB PO SCH (07:58)
[2017-03-11] MEDS: PANTOprazole SOD 40 MG TAB PO SCH ×2 (07:58→20:12)
[2017-03-11] MEDS: POTASSIUM CHLORIDE 10 MEQ TABCR PO SCH (07:59)
[2017-03-11] MEDS: FERROUS SULFATE 325 MG TAB PO SCH (07:59)
[2017-03-11] MEDS: FLUTICASONE PROPIONATE NA SPR 16 GM BTL NAE SCH ×2 (07:59→20:04)
[2017-03-11 08:00] VITALS: BP 122/69; PULSE 62; TEMP 36.7; O2SAT 99
[2017-03-11] MEDS: IPRATROPIUM BROMIDE/ALBUTEROL respimat INH INH SCH ×4 (08:00→20:04)
[2017-03-11] MEDS: FLUTICASONE/SALMETEROL 250/50 (ADVAIR) 14 PUFF/1 INHALER INH SCH ×2 (08:00→21:32)
[2017-03-11] MEDS: CALCITONIN SALMON NA 200 IU/AC 3.7 ML BTL NAE SCH (08:00)
[2017-03-11] MEDS: CARVEDILOL 12.5 MG TAB PO SCH ×2 (08:01→20:09)
[2017-03-11] MEDS: CLOPIDOGREL BISULFATE 75 MG TAB PO SCH (08:03)
[2017-03-11] MEDS: TIOTROPIUM BROMIDE 5 PUFF/90 MCG INH INH SCH (08:03)
[2017-03-11] MEDS: HYDROCODONE/ACETAMI 10/325 TAB PO PRN ×2 (08:17→15:56)
[2017-03-11] MEDS ORDERED: CLONIDINE HCL 0.3 MG/24 HR TRANSDERM SYS TD SCH (12:30)
[2017-03-11 16:26] VITALS: BP 120/78; PULSE 61; TEMP 37; O2SAT 99
[2017-03-11] MEDS ORDERED: FUROSEMIDE 20 MG TAB PO ONE (17:00)
--- NOTE | 2017-03-11 19:12 | Progress Note ---
Subjective Date of Service: Mar 11, 2017. Subjective Pt evaluation today including: conversation w/ patient, physical exam, chart review, lab review, conversation w/ health consultant (vascular surgery), review of inpatient medication list Pain: none reported PO Intake: normal Voiding: walker catheter in place no events overnight feels good she is pleased how good her BPs have been since the surgery yesterday no new complaints Problem List Medical Problems: (1) Altered mental status Status: Acute (2) Anemia Status: Acute (3) Bilateral pneumonia Status: Acute (4) CHF (congestive heart failure) Status: Acute (5) Chronic Kidney Disease, Stage Iii (Moderate) Status: Chronic (6) COPD exacerbation Status: Acute (7) COPD exacerbation Status: Acute (8) Crystal arthritis Status: Chronic (9) Dehydration Status: Acute (10) Duodenal bulb ulcer Status: Chronic (11) Failure of outpatient treatment Status: Acute (12) Failure of outpatient treatment Status: Acute (13) Gout Status: Chronic (14) Hyperlipidemia Nec/Nos Status: Chronic (15) Hypertension Status: Chronic (16) Hypoxemia Status: Acute (17) Hypoxia Status: Acute (18) Hypoxia Status: Acute (19) Hypoxia Status: Acute (20) Hypoxia Status: Acute (21) Lumbar compression fracture Status: Chronic (22) Opiate use Status: Chronic (23) Osteoporosis Status: Chronic (24) Peripheral edema Status: Acute (25) Pneumonia Status: Acute (26) Pneumonia Status: Acute (27) Pneumonia involving right lung Status: Acute (28) Respiratory acidosis Status: Acute (29) Respiratory distress Status: Acute (30) Right renal artery stenosis Status: Chronic (31) Secondary hyperparathyroidism Status: Chronic (32) UTI (urinary tract infection) Status: Acute Review of Systems Constitutional: No fever Respiratory: + wheezing, No cough, No dyspnea at rest Cardiac: No chest pain Abdomen: No pain Objective Vital Signs Date Time Temp Pulse Resp B/P (MAP) Pulse Ox O2 Delivery O2 Flow Rate FiO2 03/11/17 16:26 37.0 61 18 120/78 (92) 99 Nasal Cannula 4.0 03/11/17 08:15 Nasal Cannula 4.0 03/11/17 08:00 36.7 62 20 122/69 (86) 99 2.0 03/11/17 00:42 36.5 62 18 120/75 (90) 99 3.0 03/11/17 00:00 Nasal Cannula 4.0 03/10/17 21:15 64 18 104/71 (82) Physical Exam General Appearance: no apparent distress ENT: pharynx normal Neck: no JVD Respiratory/Chest: no respiratory distress, no accessory muscle use, + rales ( minimal - bases) Cardiovascular: regular rate, rhythm, no gallop Abdomen: normal bowel sounds, non tender, soft, no organomegaly Extremities: + pedal edema (trace left leg, none on right; pulses 2 + b/l ) Neurologic/Psychiatric: alert, oriented x 3 Skin: + pertinent finding (right groin - no hematoma) Comments: back - kyphosis Laboratory Results Last 24 Hours Test 03/11/17 06:42 White Blood Count 12.24 K/uL Red Blood Count 3.25 M/uL Hemoglobin 9.3 g/dL Hematocrit 29.1 % Mean Corpuscular Volume 89.5 fL Mean Corpuscular Hemoglobin 28.6 pg Mean Corpuscular Hemoglobin Concent 32.0 g/dl RDW Standard Deviation 57.9 fL RDW Coefficient of Variation 17.8 % Platelet Count 222 K/uL Mean Platelet Volume 11.3 fL Sodium Level 139 mmol/L Potassium Level 4.0 mmol/L Chloride Level 101 mmol/L Carbon Dioxide Level 32 mmol/L Anion Gap 6.0 mmol/L Blood Urea Nitrogen 12 mg/dl Creatinine 1.00 mg/dl Est Creatinine Clear Calc Drug Dose 40.2 ml/min Estimated GFR () 66.6 Estimated GFR (Non- 57.4 BUN/Creatinine Ratio 11.9 Random Glucose 110 mg/dl Calcium Level 7.2 mg/dl Assessment and Plan 71yo male: 1. sepsis, secondary to UTI - resolved. 2. chronic hypoxic resp failure - stable on home O2 amount 3. CKD stage 4 with superimposed acute kidney injury - DIONI resolved. Cr stable. Repeat BMP today with stable Cr at 1. 4. COPD - stable/controlled. Steroid dependent. Give additional 10mg for "Stress dose" due to surgery yesterday resume 10mg daily tomorrow 5. HTN - s/p Renal artery stents by Dr. Jamison, POD #1. BPs markedly improved as anticipated. stop amlodipine stop hydralazine cut clonidine patch from total of 0.4mg to 0.3mg leave coreg at 12.5mg BID remarkable improvement plavix 75mg daily due to stent placement 6. chronic pain syndrome - continue all home meds (methadone, etc). 7. DVT proph - lovenox 8. GERD - PPI 9. acute/chronic diastolic CHF - acute component resolved. resume lasix 20mg daily as previous. 10. h/o severe osteoporosis with numerous compression fractures - repeat t- spine x-rays this admission with probable acute/chronic compression fractures k-pad heating unit pain meds prn 11. dispo - [facility] - likely in AM Discharge planning: fdc facility
[2017-03-11 20:09] VITALS: BP 122/72; PULSE 74
[2017-03-11] MEDS: LATANOPROST 0.005% OP SOLN 2.5 ML BTL OPR SCH (20:15)
[2017-03-11] MEDS: ZOLPIDEM TARTRATE 5 MG TAB PO PRN (22:55)
[2017-03-12] MEDS: LORAZEPAM 0.5 MG TAB PO PRN ×2 (00:16→06:12)
[2017-03-12 00:40] VITALS: BP 136/75; PULSE 66; TEMP 37; O2SAT 97
[2017-03-12] MEDS: HYDROCODONE/ACETAMI 10/325 TAB PO PRN (05:20)
[2017-03-12] MEDS: SUCRALFATE 1 GM/10 ML UDC PO SCH ×2 (06:12→07:49)
[2017-03-12 07:28] LABS: HEMATOCRIT 28.8 % (37-47); MEAN CELL VOLUME 90.6 fL (80-100); MEAN CORPUSCULAR HEMOGLOBIN 29.2 pg (25-34); MEAN CORPUSCULAR HGB CONC 32.3 g/dl (32-36); MEAN PLATELET VOLUME 10.9 fL (7.4-10.4); PLATELET COUNT 225 K/uL (130-400); RED BLOOD COUNT 3.18 M/uL (4.2-5.4); WHITE BLOOD COUNT 17.04 K/uL (4.8-10.8)
[2017-03-12] MEDS: NYSTATIN POWDER 15GM BTL EXT SCH ×2 (07:47→13:46)
[2017-03-12] MEDS: DULOXETINE (CYMBALTA) 30 MG CAP PO SCH (07:48)
[2017-03-12] MEDS: CHECK CLONIDINE PATCH PLACEMENT SCH (07:48)
[2017-03-12] MEDS: POLYETHYLENE (MIRALAX) 17 GM PACK PO SCH (07:49)
[2017-03-12] MEDS: LACTOBACILLUS ACIDOPHILUS (FLORANEX) TAB PO SCH ×2 (07:49→12:00)
[2017-03-12 07:58] LABS: BUN/CREATININE RATIO 11.7 (10-20); CALCIUM 7.6 mg/dl (8.5-10.1); CREATININE 0.92 mg/dl (0.60-1.20); MAGNESIUM 1.8 mg/dl (1.8-2.4); POTASSIUM 3.6 mmol/L (3.5-5.1)
[2017-03-12] MEDS: MULTIVITAMIN TAB PO SCH (08:14)
[2017-03-12] MEDS: CHOLECALCIFEROL 1000 INTER.UNIT TAB PO SCH (08:14)
[2017-03-12] MEDS: SENNA 8.6 MG TAB PO SCH (08:14)
[2017-03-12] MEDS: ALLOPURINOL 100 MG TAB PO SCH (08:14)
[2017-03-12] MEDS: ENOXAPARIN 40 MG/0.4 ML SYR SQ SCH (08:14)
[2017-03-12] MEDS: CLOPIDOGREL BISULFATE 75 MG TAB PO SCH (08:15)
[2017-03-12] MEDS: BACLOFEN 10 MG TAB PO SCH (08:15)
[2017-03-12] MEDS: PANTOprazole SOD 40 MG TAB PO SCH (08:17)
[2017-03-12] MEDS: CARVEDILOL 12.5 MG TAB PO SCH (08:18)
[2017-03-12] MEDS: POTASSIUM CHLORIDE 10 MEQ TABCR PO SCH (08:18)
[2017-03-12] MEDS: FERROUS SULFATE 325 MG TAB PO SCH (08:18)
[2017-03-12] MEDS: IPRATROPIUM BROMIDE/ALBUTEROL respimat INH INH SCH ×2 (08:20→12:29)
[2017-03-12] MEDS: CALCITONIN SALMON NA 200 IU/AC 3.7 ML BTL NAE SCH (08:20)
[2017-03-12] MEDS: FLUTICASONE/SALMETEROL 250/50 (ADVAIR) 14 PUFF/1 INHALER INH SCH (08:20)
[2017-03-12] MEDS: FLUTICASONE PROPIONATE NA SPR 16 GM BTL NAE SCH (08:20)
[2017-03-12 08:23] VITALS: BP 157/68; PULSE 69; TEMP 36.9; O2SAT 99
[2017-03-12] MEDS: METHADONE HCL 10 MG TAB PO SCH (08:38)
[2017-03-12] MEDS: TIOTROPIUM BROMIDE 5 PUFF/90 MCG INH INH SCH (09:16)
[2017-03-12] MEDS ORDERED: FUROSEMIDE 20 MG TAB PO ONE (11:45)
[2017-03-12] MEDS ORDERED: PLV75 PO (14:32)
[2017-03-12] MEDS ORDERED: METH10TA2 PO (14:32)
[2017-03-12] MEDS ORDERED: CARV25TA PO (14:32)
[2017-03-12] MEDS ORDERED: FERR1TAB13 PO (14:32)
[2017-03-12] MEDS ORDERED: CLON0.3D4 TD (14:32)
--- NOTE | 2017-03-12 14:41 | Discharge Instructions ---
Discharge Instructions Date of Service Mar 12, 2017. Admission Reason for Admission: Dehydration, Sepsis Secondary To UTI Discharge Discharge Diagnosis / Problem: UTI, Acute kidney injury, Renal artery stenosis Discharge Goals Goal(s): Learn about illness, Diagnostic testing, Therapeutic intervention Activity Recommendations Activity Level: Assistance Required . Additional Information Patient informed of condition: Yes Advance Directives: No DNR: No Level of Care: Skilled Communicable Disease: No Prognosis: Stable Oxygen at (LPM): 4 liters continuously White Catheter: No Instructions / Follow-Up Instructions / Follow-Up 1. See Dr. Nate Jamison, [facility] V[facility] Surgery, within 1 week 2. See Child Protective Services Specialist of [facility] within 48 hours Current Hospital Diet Patient's current hospital diet: AHA Diet (Heart Healthy) Discharge Diet Recommended Diet: AHA Diet (Heart Healthy) Procedures Procedures Performed: Bilateral Renal Artery Stenting Bilateral Renal Artery Arteriogram, selective Mechanical Closure of Right Femoral Artery Pending Studies Studies pending at discharge: no Physician Orders On Transfer Special Precautions: 1. aspiration precautions 2. fall precautions Dressing Changes: dressing in right groin can be removed in 48 hours after discharge Vital Signs: 1. vitals including blood pressure checks AT LEAST TWICE DAILY FOR THE NEXT 7 days 2. daily weight on standing scale report any weight gain of more than 2-3 pounds in 1-2 days to director medical safety right away Weigh: every morning on standing scale Additional Orders: CBC, BMP in 3 days for stability report results to director medical safety Medical Emergencies . Who to Call and When: Medical Emergencies: If at any time you feel your situation is an emergency, please call 911 immediately. . Non-Emergent Contact Non-Emergency issues call your: Primary Care Provider (director medical safety of [facility]) Call Non-Emergent contact if: temperature is above 100.5, your pain is not controlled, your pain is worsening, your pain is unusual for you, your pain is concerning you, you have any medication questions . . "Provider Documentation" section prepared by Juan Nance. . Core Measure Problem Core Measures: None
[2017-03-12 14:53] VITALS: BP 157/68; PULSE 69; TEMP 36.9; O2SAT 99
[2017-03-13] MEDS ORDERED: FUROSEMIDE 20 MG TAB PO SCH (08:00)
--- NOTE | 2017-03-14 23:15 | Discharge Summary ---
Discharge Summary Date of Service Mar 14, 2017. Discharge Summary Admission Date: Feb 28, 2017 at 22:18 Discharge Date: Mar 12, 2017 Discharge Disposition: detention facility ([facility]) Principal Diagnosis: sepsis 2nd to suspected UTI Problems/Secondary Diagnoses: (1) Chronic Kidney Disease, Stage 3 - creatinine at discharge 0.9 (2) Acute kidney injury - resolved (3) Duodenal bulb ulcer - history of (4) Gout (5) Hyperlipidemia (6) Hypertension (7) Numerous Thoracic & Lumbar compression fractures - possible acute/chronic ( see x-ray report above) (8) Chronic pain syndrome (9) Osteoporosis (10) Bilateral renal artery stenosis - s/p arteriogram with b/l stent placement Status: Chronic (11) GERD (12) COPD (13) Chronic hypoxic respiratory failure on home O2 (14) acute/chronic diastolic CHF (15) h/o DVT (16) h/o Hodgkin's Lymphoma Immunizations: Have You Had Influenza Vaccine: Yes Influenza Vaccine Date: Mar 01, 2013 History of Tetanus Vaccine?: Yes Tetanus Immunization Date: Dec 18, 2009 History of Pneumococcal: Yes Pneumococcal Date: Jun 01, 2012 History of Hepatitis B Vaccine: No Procedures: 1. CT abd/pelvis: IMPRESSION: 1. Significantly suboptimal examination without oral and IV contrast. The examination is also degraded by streak and motion artifact. 2. There is trace perihepatic free fluid as well as a small volume of free fluid in the pelvis. 3. Question mild wall thickening involving the descending colon versus underdistention. Correlate clinically for evidence of a mild nonspecific colitis. 4. There are enlarged left external iliac chain lymph nodes. These are pathologically indeterminant, new from 03/28/2016, and may be on a reactive basis. Clinical correlation will be essential. 5. Small foci of gas are present within the bladder lumen. This may be related to recent instrumentation. Correlation with clinical findings and urinalysis will be required. 6. Segmental atelectasis is present at both lung bases. This has increased from 03/28/2016. 7. Cardiomegaly. 8. Mild colonic diverticulosis without clear CT evidence of acute diverticulitis. 9. There is nonspecific presacral induration. This is of indeterminant etiology and significance, and is new from previous. 2. duplex renal arteries: IMPRESSION: 1. The kidneys are atrophic and echogenic consistent with medical renal disease. 2. The renal arteries were not well-visualized. There is no sonographic evidence of renal artery stenosis on the images obtained. 3. CTA abdomen/pelvis: IMPRESSION: 1. Patent right renal arterial stent graft with focal area of soft tissue attenuation involving the proximal portion of the stent as above suspicious for focal atheromatous plaquing or intimal hyperplasia which appears to cause at least moderate in-stent stenosis. 2. Focal mixed plaquing at the ostium of the left renal artery with a ring like area of soft tissue attenuation just distal to the ostium as above causes moderate to high-grade stenosis with post-stenotic dilation. These findings could be further evaluated with digital subtraction angiography if clinically indicated. 3. Moderate mixed plaquing of the abdominal aorta and iliac vasculature without abdominal aortic aneurysm. 4. Right greater than left cortical thinning and atrophic changes of the kidneys appear unchanged compatible with chronic medical renal disease. 5. Persistent trace perihepatic ascites. Small bilateral pleural effusions with bibasilar consolidation suggesting compressive atelectasis. 4. LLE Venous duplex exam negative for DVT. 5. Renal arteriogram with bilateral renal artery stent placement - Nate Jamison MD 6. thoracic spine x-rays - IMPRESSION: Increased height loss at two levels in the mid to lower thoracic spine in comparison to prior exam. These raise concern for acute compression fractures. Correlate with point tenderness. Consultations: 1. infectious disease - Rachel Jeffery DO 2. vascular surgery - Nate Jamison MD 3. PT, OT Medication Reconciliation New Medications: Clopidogrel Bisulfate (Clopidogrel) 75 Mg Tab 75 MG PO QAM, #30 TAB 11 Refills Changed Medications: Carvedilol (Coreg) 25 Mg Tab 12.5 MG PO BID, #60 TAB 5 Refills (Changed from: 25 MG; Refills: ) HOLD FOR APICAL HR <50 Clonidine Hcl (Niwfwsfm-Dgp-0) 0.3 Mg/24 Hr Dis 1 PATCH TD WK, #4 PATCH 2 Refills (Changed from: Clonidine Hcl (Nqhsmhvy-Atp-3) 0.2 Mg/24 Hr Dis 2 Patch TD WK) Ferrous Sulfate (Kp Ferrous Sulfate) 325 Mg Tab 325 MG PO BID, #60 TABS 1 Refill (Changed from: DAILY; Refills: ) Continued Medications: Acetaminophen (Tylenol) 325 Mg Tab 650 MG PO Q6 PRN for Pain or Fever, TAB NEEDED FOR PAIN # 1- 10 OR TEMP > 101F. NTE 3GM APAP /24HRS. Allopurinol (Zyloprim) 100 Mg Tab 100 MG PO BID, TAB Baclofen (Lioresal) 10 Mg Tab 10 MG PO TID, TAB Bisacodyl (Dulcolax) 10 Mg Sup 1 SUPP MO, SUP GIVE ON DAY 4 NO B/M Calcitonin [place] (Calcitonin-[place]) 30 [place]/3.7 Ml Soln 1 SPRAY ERIC DAILY Cholecalciferol (D-1000) 1,000 Unit Tab 4000 UNITS PO DAILY Dextrose (Diabetic Use) (Insta-Glucose) 77.4 % Gel 1 APPLN PO GIVE EVERY 15 MINUTES NEEDED FOR HYPOGLYCEMIA BLOOD GLUCOSE LESS THAN 60 AND/OR SYMPTOMATIC HYPOGLYCEMIA ( MUST BE RESPONSIVE AND ABLE TO SWALLOW) Duloxetine HCl (Cymbalta) 30 Mg Cap 30 MG PO QAM, CAP 2 Refills Epinephrine (Epipen) 0.3 Mg/0.3 Ml Inj 0.3 MG IM UD PRN for ALLERGIC REACTION Fluticasone Prop/Salmeterol (Advair Diskus 250/50 60 Dose) 1 Ea Aerp 1 PUFFS INH BID, INHALER Fluticasone Propionate (Nasal) (Flonase Allergy Relief Ch) 50 Mcg/Act Spr 1 SPRAY ERIC BID Furosemide (Furosemide) 20 Mg Tab 20 MG PO QAM, #60 TAB Glucagon (Glucagon Emergency Kit) 1 Mg Kit 1 APPLN IM EVERY 15 MINS NEEDED FOR HYPOGLYCEMIA BLOOD GLUCOSE < 50 AND OR SYMPTOMATIC/UNRESPONSIVE HYPOGLYCEMIA. MAY REPEAT IN 15 MINS IF NEEDED Ipratropium-Albuterol (Combivent Respimat) 1 Aer Aer 1 PUFFS INH QID, INH Latanoprost (Latanoprost) 37 Drops/2.5 Ml Soln 1 DROP OPR HS Magnesium Hydroxide (Milk of Magnesia) 30 Ml Susp 30 ML PO UD PRN for Constipation NEEDED FOR NO B/M FOR 9 SHIFTS Melatonin (Melatonin Maximum Strengt) 5 Mg Tab 5 MG PO HS, #30 TAB 1 Refill Methadone Hcl (Dolophine) 10 Mg Tab 30 MG PO TID, #90 TAB 0 Refills (This prescription has been renewed) Multivitamin (Multivitamin) Tab 1 TAB PO DAILY, TAB Nystatin (Nystop) 45 Appln/15 Gm Powd 1 APPLN EXT TID, #60 DOSE Ondasetron Odt (Zofran Odt) 4 Mg Tab 4 MG SL Q6H PRN for Nausea, #6 TAB Pantoprazole (Protonix) 40 Mg Tab 40 MG PO BID, TAB Polyethylene Glycol 3350 (Miralax) 1 Pow Pow 17 GM PO QAM Potassium Chloride (Micro-K Ext Rel) 10 Meq Capcr 10 MEQ PO DAILY, CAP Prednisone (Prednisone) 5 Mg Tab 5 MG PO DAILY, TAB Saccharomyces Boulardii (Florastor) 250 Mg Cap 1 CAP PO DAILY Sennosides (Senokot) 8.6 Mg Tab 1 TAB PO QAM, TAB Sodium Phosphates (Fleet Enema Six Pack) 1 Lisa Lisa 1 APPL RE GIVE 4 HOURS AFTER DULCOLAX SUPP. IF NOT EFFECTIVE Sucralfate (Carafate) 1 Gm/10 Ml Qi 1 GM PO ACHS, ML Tiotropium [place] (Spiriva Handihaler) 30 Puff/540 Mcg Aerp 1 CAP INH DAILY, INHALER Discontinued Medications: Hydralazine Hcl (Apresoline) 25 Mg Tab 25 MG PO TID, #90 TAB Referrals At Discharge Follow up Referrals: Physician Referral - Within 1 Week with Nate Jamison M.D. Discharge Exam Physical Exam: General Appearance: no apparent distress, + thin, + pertinent finding ( severe kyphosis of back) ENT: pharynx normal Neck: no JVD Respiratory/Chest: no respiratory distress, no accessory muscle use, + rales (minimal, fine, "dry" rales bases) Cardiovascular: regular rate, rhythm, no gallop, no murmur, normal peripheral pulses Abdomen / GI: normal bowel sounds, non tender, soft, no organomegaly Extremities: no pedal edema (right leg), + pedal edema (trace left leg) Neurologic/Psychiatric: alert, oriented x 3 Skin: + pertinent finding (right groin puncture site (from arteriogram) without hematoma or signs of infection ) Hospital Course HISTORY OF PRESENT ILLNESS: The patient is a 71-year-old female resident of [facility] who presents to the emergency department via BLS with complaints of abdominal pain, nausea and vomiting that began 2 days prior to arrival. She was diagnosed with a UTI yesterday and placed on antibiotics. She has generalized weakness, and fatigue. HOSPITAL COURSE: The patient was presumed to have UTI as her u/a done as an outpatient as well as a repeat u/a done at time of admission were highly suspicious for UTI. Despite obtaining cath samples on both occasions unfortunately we were unable to isolate a specific pathogen. With broad-spectrum IV antibiotic therapy her abdominal symptoms and significant leukocytosis improved/resolved. 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 Later on in her stay her walker was discontinued and she was able to void comfortably without any difficulties. Apparently she had had diarrhea prior to coming to the hospital but c. diff toxin was negative as was stool culture. In addition to the UTI the patient had significantly elevated blood pressures throughout her stay. During prior hospitalizations this has been a problem for her as well. We have attempted to visualize the renal arteries multiple times on past hospitalizations without success. Fortunately during this hospital stay her creatinine improved to a point where CTA was safe to obtain. CTA of the renal arteries demonstrated significant stenosis. Thus, Dr. Nate Jamison from vascular surgery was consulted who performed arteriogram. This confirmed severe, bilateral renal artery stenosis. Bilateral renal artery stents were placed. She was initiated on plavix 75mg once daily after the procedure. Remarkably her blood pressures improved significantly after the renal artery stents were placed. We were able to fully discontinue hydralazine & amlodipine, cut her coreg dose from 25mg BID to 12.5mg BID, and also reduce her total clonidine patch dose from 0.4mg each week to 0.3mg each week. I suspect that the clonidine patch can be further weaned off as an outpatient. She was continued on her low-dose lasix due to her chronic diastolic CHF. All other medical problems remained stable while here including her chronic hypoxic respiratory failure. She will continue on her daily prednisone dose of 5mg and her NC O2, 4 Liters. Lastly, she had evidence of acute kidney injury in the setting of her sepsis/ UTI. Peak creatinine was 1.8 at admission improving to 0.9 at discharge. Total Time Spent: Greater than 30 minutes This includes examination of the patient, discharge planning, medication reconciliation, and communication with other providers. Discharge Instructions Please refer to the electronic Patient Visit Report (Discharge Instructions) for additional information. Follow-Up 1. see behavioral medical director of [facility] within 2 days 2. see Nate Jamison MD - vascular surgery - within 1 week Additional Copies To [facility]; Jennifer. Jeffery D.O.; Nate Jamison M.D.
--- NOTE | 2017-04-14 09:32 | DIAGNOSTIC IMAGING REPORT ---
DATE OF PROCEDURE: 03/10/2017 PREOPERATIVE DIAGNOSIS: Bilateral renal artery stenosis. POSTOPERATIVE DIAGNOSIS: Same. PROCEDURE: Bilateral renal artery arteriography and bilateral renal artery stenting. SURGEON: Nate Jamison MD ANESTHETIC: MAC. INDICATIONS: The patient was a 71-year-old female with severe hypertension and bilateral renal artery stenosis by a noninvasive testing. Arteriography and possible stenting were recommended. She understood the risks, options and benefits and agreed to go ahead with this procedure. PROCEDURE IN DETAIL: The patient was taken to the angiogram suite and placed in supine position. After local anesthetic was administered, a percutaneous puncture was made of the right common femoral artery. A 0.035 wire was inserted and 5-Kiswahili sheath was inserted over the wire. Using a RDC 5-Kiswahili catheter, the right renal was then cannulated. Hand injection at that time showed severe stenosis of the right renal artery. We then exchanged the sheath to a 7-Kiswahili sheath and used a 6-Kiswahili RDC glide catheter. We then reinserted the RDC catheter through the glide cath and cannulated the renal arteries again. Once this was confirmed with a hand injection, we exchanged the wire to 0.014 Journey. We used a 6 x 18 Herculink. We then stented the right renal artery origin. Prior to expanding the stent, the position of the stent was confirmed with a hand injection. Once the position was confirmed, the stent was deployed. Good results were noted. The catheter was then exchanged over a guidewire. The RDC was then reinserted. We tried to cannulate the left renal artery, but it was difficult to pass it distally. We ended up using a Sim 1 catheter to cannulate. This actually did pop out also. We finally got the left renal artery cannulated with a boyd's hook catheter. Once we got the catheter in, we passed up the glide catheter again. This was positioned right at the radial artery origin. We exchanged the wire to the 0.014 wire and deployed a 6 x 15 Herculink in the left side. Prior to deploying, again, we did the hand injection to make sure the stent was in the right place. It was in good position, so the balloon was then expanded. We then reinserted the catheter. We did a power injection, which showed both renal arteries to be now widely patent with good flow. The wire was then reinserted. The Star closure device was used to close the puncture in the right groin. Adequate hemostasis was noted. Sterile dressings were applied and the patient left the angio suite in good condition and tolerated the procedure well. KISHOR
== END 2017-03-12 15:10 | DRG 853 ==
LOC: EDBD 16:20 → C.EDC 16:22 → C.MS4W 22:18 → ENRESERV 22:33
PROVIDERS: ADMIT Hospitalist; ATTEND Internal Medicine
PROC: 047A3DZ Dilation of Left Renal Artery with Intraluminal Device, Percutaneous Approach (ICD-10-PCS; principal; 2017-03-10 11:30)
PROC: 04793DZ Dilation of Right Renal Artery with Intraluminal Device, Percutaneous Approach (ICD-10-PCS; principal; 2017-03-10 11:30)
DX: A41.9 Sepsis, unspecified organism (principal); N39.0 Urinary tract infection, site not specified; I50.31 Acute diastolic (congestive) heart failure; G93.41 Metabolic encephalopathy; T82.856A Stenosis of peripheral vascular stent, initial encounter; N17.9 Acute kidney failure, unspecified; N18.4 Chronic kidney disease, stage 4 (severe); I50.32 Chronic diastolic (congestive) heart failure; J96.11 Chronic respiratory failure with hypoxia; I13.0 Hypertensive heart and chronic kidney disease with heart failure and stage 1 through stage 4 chronic kidney disease, or unspecified chronic kidney disease; M80.88XA Other osteoporosis with current pathological fracture, vertebra(e), initial encounter for fracture; I70.1 Atherosclerosis of renal artery; E86.0 Dehydration; E87.6 Hypokalemia; J44.9 Chronic obstructive pulmonary disease, unspecified; G89.4 Chronic pain syndrome; K21.9 Gastro-esophageal reflux disease without esophagitis; M10.9 Gout, unspecified; F41.9 Anxiety disorder, unspecified; F32.9 Major depressive disorder, single episode, unspecified; K59.00 Constipation, unspecified; H40.9 Unspecified glaucoma; Z51.81 Encounter for therapeutic drug level monitoring; Z79.899 Other long term (current) drug therapy; Z79.891 Long term (current) use of opiate analgesic; Z87.891 Personal history of nicotine dependence; Y83.1 Surgical operation with implant of artificial internal device as the cause of abnormal reaction of the patient, or of later complication, without mention of misadventure at the time of the procedure

== ENCOUNTER → 2017-02-28 | Outpatient (CLI) | payer OTHER ==
[~2017-02-28] MED LIST changes: -CLON0.3D4 TD; -PLV75 PO
[2017-02-28 10:43] LABS: URINE APPEARANCE CLEAR (CLEAR); URINE BILIRUBIN NEG (NEG); URINE COLOR YELLOW; URINE NITRITE NEG (NEG); URINE PH 7.5 (4.5-7.5); URINE SPECIFIC GRAVITY 1.016 (1.000-1.030); UROBILINOGEN NEG (NEG)
[2017-02-28 10:53] LABS: MANUAL MICROSCOPIC REQUIRED? NO; REVIEW REQ? YES; SULFASALICYLIC ACID POS (NEG)
[2017-02-28 14:30] LABS: HEMATOCRIT 47.6 % (37-47); MEAN CELL VOLUME 90.5 fL (80-100); MEAN CORPUSCULAR HEMOGLOBIN 28.9 pg (25-34); MEAN CORPUSCULAR HGB CONC 31.9 g/dl (32-36); MEAN PLATELET VOLUME 13.8 fL (7.4-10.4); PLATELET COUNT 272 K/uL (130-400); RED BLOOD COUNT 5.26 M/uL (4.2-5.4); WHITE BLOOD COUNT 29.18 K/uL (4.8-10.8)
[2017-02-28 15:05] LABS: ALB/GLOB RATIO 0.8 (0.9-2); ALKALINE PHOSPHATASE 112 U/L (45-117); ALT/SGPT 23 U/L (12-78); AST/SGOT 32 U/L (15-37); BLOOD UREA NITROGEN 31 mg/dl (7-18); BUN/CREATININE RATIO 18.1 (10-20); CALCIUM 9.1 mg/dl (8.5-10.1); CARBON DIOXIDE 27 mmol/L (21-32); CHLORIDE 103 mmol/L (98-107); GLUCOSE 75 mg/dl (70-99); SODIUM 141 mmol/L (136-145)
== END ==
LOC: C.LABUPBEA 09:59
PROVIDERS: ATTEND Nurse Practitioner Family
DX: R82.5 Elevated urine levels of drugs, medicaments and biological substances (principal)

== ENCOUNTER → 2017-03-15 | Outpatient (CLI) | payer OTHER ==
[~2017-03-15] MED LIST changes: -APR25 PO; -CLON0.2D4 TD; +CLON0.3D4 TD; +CYM/30 PO; -DICL1GEL12 TD; -DULO-24 PO; -ERGO50002 PO; -IPRASOL4 INH; +MELATAB2 PO; -MGC40 PO; -NF656 TD; +ONDA4TAB10 SL; +PLV75 PO; -RST75 PO; +SACC250C3 PO; -SULF800T23 PO
[2017-03-15 09:02] LABS: HEMATOCRIT 29.1 % (37-47); MEAN CELL VOLUME 93.6 fL (80-100); MEAN CORPUSCULAR HEMOGLOBIN 28.3 pg (25-34); MEAN CORPUSCULAR HGB CONC 30.2 g/dl (32-36); MEAN PLATELET VOLUME 11.8 fL (7.4-10.4); PLATELET COUNT 179 K/uL (130-400); RED BLOOD COUNT 3.11 M/uL (4.2-5.4); WHITE BLOOD COUNT 15.85 K/uL (4.8-10.8)
[2017-03-15 09:08] LABS: BLOOD UREA NITROGEN 14 mg/dl (7-18); BUN/CREATININE RATIO 13.7 (10-20); CALCIUM 7.9 mg/dl (8.5-10.1); CARBON DIOXIDE 33 mmol/L (21-32); CHLORIDE 103 mmol/L (98-107); CREATININE 0.99 mg/dl (0.60-1.20); GLUCOSE 81 mg/dl (70-99); SODIUM 140 mmol/L (136-145)
== END | disposition home or self-care (01) ==
LOC: C.LABUPBEA 08:27
PROVIDERS: ATTEND Nurse Practitioner Family
DX: R60.1 Generalized edema (principal); C81.90 Hodgkin lymphoma, unspecified, unspecified site

== ENCOUNTER → 2017-03-17 | Outpatient (CLI) | payer OTHER ==
[2017-03-17 08:53] LABS: HEMATOCRIT 30.4 % (37-47); MEAN CELL VOLUME 94.4 fL (80-100); MEAN CORPUSCULAR HEMOGLOBIN 27.6 pg (25-34); MEAN CORPUSCULAR HGB CONC 29.3 g/dl (32-36); MEAN PLATELET VOLUME 12.3 fL (7.4-10.4); PLATELET COUNT 205 K/uL (130-400); RED BLOOD COUNT 3.22 M/uL (4.2-5.4); WHITE BLOOD COUNT 18.07 K/uL (4.8-10.8)
[2017-03-17 09:02] LABS: ALT/SGPT 17 U/L (12-78); BLOOD UREA NITROGEN 11 mg/dl (7-18); BUN/CREATININE RATIO 11.3 (10-20); CALCIUM 8.2 mg/dl (8.5-10.1); CARBON DIOXIDE 34 mmol/L (21-32); CHLORIDE 102 mmol/L (98-107); CREATININE 0.95 mg/dl (0.60-1.20); GLUCOSE 73 mg/dl (70-99); SODIUM 140 mmol/L (136-145)
[2017-03-17 09:05] LABS: ALB/GLOB RATIO 0.8 (0.9-2); ALKALINE PHOSPHATASE 91 U/L (45-117); AST/SGOT 12 U/L (15-37)
--- NOTE | 2017-03-23 13:02 | CODING QUERY MEDICAL NECESSITY ---
SUPPORTING DIAGNOSIS NEEDED Valdemar SOLIZ, A supporting diagnosis is required for the test/procedure performed on this patient in order for us to be reimbursed by the patient's insurance. Please provide a supporting diagnosis for the following test/procedure listed below next to the test name along with your signature. *If there is no additional diagnosis for this patient that would support the following test/procedure please document that below next to the test/procedure. Test(s)/Procedure(s) that require a supporting diagnosis: * ([id number]) VITAMIN D ASSAY DIAGNOSIS: DATE OF SERVICE: 03/17/17 Provider Signature: Date: Thank you Steve Ernandez [facility] Information Management Once completed, please kindly fax back to [phone] For questions please call [phone]
== END | disposition home or self-care (01) ==
LOC: C.LABUPBEA 08:30
PROVIDERS: ATTEND Nurse Practitioner Family
DX: N18.9 Chronic kidney disease, unspecified (principal); M62.81 Muscle weakness (generalized); D50.0 Iron deficiency anemia secondary to blood loss (chronic)

== ENCOUNTER → 2017-03-20 | Outpatient (CLI) | payer OTHER ==
[2017-03-20 10:17] LABS: HEMATOCRIT 31.3 % (37-47); MEAN CELL VOLUME 93.7 fL (80-100); MEAN CORPUSCULAR HEMOGLOBIN 27.5 pg (25-34); MEAN CORPUSCULAR HGB CONC 29.4 g/dl (32-36); MEAN PLATELET VOLUME 12.1 fL (7.4-10.4); PLATELET COUNT 216 K/uL (130-400); RED BLOOD COUNT 3.34 M/uL (4.2-5.4); WHITE BLOOD COUNT 11.93 K/uL (4.8-10.8)
== END ==
LOC: C.LABUPBEA 09:08
PROVIDERS: ATTEND Nurse Practitioner Family
DX: C81.90 Hodgkin lymphoma, unspecified, unspecified site (principal)

== ENCOUNTER → 2017-03-24 | Outpatient (CLI) | payer OTHER ==
[2017-03-24 09:52] LABS: BLOOD UREA NITROGEN 17 mg/dl (7-18); CALCIUM 9.5 mg/dl (8.5-10.1); CARBON DIOXIDE 35 mmol/L (21-32); CHLORIDE 101 mmol/L (98-107); CREATININE 1.55 mg/dl (0.60-1.20); GLUCOSE 70 mg/dl (70-99); SODIUM 142 mmol/L (136-145)
== END ==
LOC: C.LABUPBEA 09:14
PROVIDERS: ATTEND Nurse Practitioner Family
DX: R60.1 Generalized edema (principal)

== ENCOUNTER → 2017-04-05 | Outpatient (CLI) | payer OTHER | LOC: C.LABUPBEA 07:39 | PROVIDERS: ATTEND Nurse Practitioner Family | DX: D72.829 Elevated white blood cell count, unspecified (principal) ==

== ENCOUNTER → 2017-04-06 | Outpatient (CLI) | payer OTHER ==
[2017-04-06 09:41] LABS: BASO % 0.3 %; BASO ABS # 0.04 K/uL (0-0.2); COMPLETE YES; EOS % 1.8 %; HEMATOCRIT 32.1 % (37-47); IG% 1.5 %; LYMPH % 12.7 %; LYMPH ABS # 1.73 K/uL (1.2-3.4); MEAN CELL VOLUME 95.5 fL (80-100); MEAN CORPUSCULAR HGB CONC 29.3 g/dl (32-36); MEAN PLATELET VOLUME 12.1 fL (7.4-10.4); MONO % 10.8 %; NEUT % 72.9 %; PLATELET COUNT 222 K/uL (130-400); RED BLOOD COUNT 3.36 M/uL (4.2-5.4); WHITE BLOOD COUNT 13.57 K/uL (4.8-10.8)
[2017-04-06 09:51] LABS: BLOOD UREA NITROGEN 24 mg/dl (7-18); BUN/CREATININE RATIO 21.6 (10-20); CALCIUM 8.9 mg/dl (8.5-10.1); CARBON DIOXIDE 36 mmol/L (21-32); CHLORIDE 105 mmol/L (98-107); GLUCOSE 58 mg/dl (70-99); POTASSIUM 4.1 mmol/L (3.5-5.1); SODIUM 145 mmol/L (136-145)
== END ==
LOC: C.LABUPBEA 08:58
PROVIDERS: ATTEND Nurse Practitioner Family
DX: C81.90 Hodgkin lymphoma, unspecified, unspecified site (principal); R60.1 Generalized edema

== ENCOUNTER → 2017-04-10 | Outpatient (CLI) | payer OTHER ==
[2017-04-10 10:23] LABS: BASO % 0.1 %; BASO ABS # 0.02 K/uL (0-0.2); COMPLETE YES; EOS % 1.1 %; HEMATOCRIT 33.9 % (37-47); IG% 1.2 %; LYMPH % 12.3 %; LYMPH ABS # 2.21 K/uL (1.2-3.4); MEAN CELL VOLUME 97.1 fL (80-100); MEAN CORPUSCULAR HEMOGLOBIN 28.4 pg (25-34); MEAN CORPUSCULAR HGB CONC 29.2 g/dl (32-36); MEAN PLATELET VOLUME 12.2 fL (7.4-10.4); MONO % 8.5 %; NEUT % 76.8 %; PLATELET COUNT 228 K/uL (130-400); RED BLOOD COUNT 3.49 M/uL (4.2-5.4); WHITE BLOOD COUNT 18.02 K/uL (4.8-10.8)
[2017-04-10 11:07] LABS: BLOOD UREA NITROGEN 25 mg/dl (7-18); BUN/CREATININE RATIO 19.9 (10-20); CALCIUM 8.3 mg/dl (8.5-10.1); CARBON DIOXIDE 34 mmol/L (21-32); CHLORIDE 103 mmol/L (98-107); CREATININE 1.26 mg/dl (0.60-1.20); GLUCOSE 56 mg/dl (70-99); POTASSIUM 4.2 mmol/L (3.5-5.1); SODIUM 145 mmol/L (136-145)
== END ==
LOC: C.LABUPBEA 09:34
PROVIDERS: ATTEND Nurse Practitioner Family
DX: C81.90 Hodgkin lymphoma, unspecified, unspecified site (principal); R60.1 Generalized edema

== ENCOUNTER → 2017-04-12 | Outpatient (CLI) | payer OTHER ==
[2017-04-12 08:53] LABS: BLOOD UREA NITROGEN 24 mg/dl (7-18); BUN/CREATININE RATIO 21.9 (10-20); CALCIUM 8.8 mg/dl (8.5-10.1); CARBON DIOXIDE 35 mmol/L (21-32); CHLORIDE 108 mmol/L (98-107); CREATININE 1.08 mg/dl (0.60-1.20); GLUCOSE 92 mg/dl (70-99); POTASSIUM 4.6 mmol/L (3.5-5.1); SODIUM 147 mmol/L (136-145)
[2017-04-12 10:24] LABS: BASO % 0.2 %; BASO ABS # 0.03 K/uL (0-0.2); COMPLETE YES; EOS % 2.3 %; HEMATOCRIT 33.1 % (37-47); IG% 1.2 %; LYMPH % 12.9 %; LYMPH ABS # 1.88 K/uL (1.2-3.4); MEAN CELL VOLUME 97.4 fL (80-100); MEAN CORPUSCULAR HEMOGLOBIN 29.1 pg (25-34); MEAN CORPUSCULAR HGB CONC 29.9 g/dl (32-36); MEAN PLATELET VOLUME 12.6 fL (7.4-10.4); MONO % 8.9 %; NEUT % 74.5 %; PLATELET COUNT 221 K/uL (130-400); WHITE BLOOD COUNT 14.52 K/uL (4.8-10.8)
== END ==
LOC: C.LABUPBEA 08:14
PROVIDERS: ATTEND Nurse Practitioner Family
DX: C81.90 Hodgkin lymphoma, unspecified, unspecified site (principal); R60.1 Generalized edema

== ENCOUNTER → 2017-04-14 | Outpatient (CLI) | payer OTHER ==
[2017-04-14 08:57] LABS: BASO % 0.2 %; BASO ABS # 0.02 K/uL (0-0.2); COMPLETE YES; EOS % 2.5 %; HEMATOCRIT 34.2 % (37-47); LYMPH % 15.4 %; LYMPH ABS # 1.87 K/uL (1.2-3.4); MEAN CELL VOLUME 98.6 fL (80-100); MEAN CORPUSCULAR HGB CONC 28.4 g/dl (32-36); MEAN PLATELET VOLUME 12.3 fL (7.4-10.4); MONO % 10.1 %; NEUT % 70.8 %; PLATELET COUNT 211 K/uL (130-400); RED BLOOD COUNT 3.47 M/uL (4.2-5.4); WHITE BLOOD COUNT 12.17 K/uL (4.8-10.8)
== END ==
LOC: C.LABUPBEA 08:22
PROVIDERS: ATTEND Nurse Practitioner Family
DX: C81.90 Hodgkin lymphoma, unspecified, unspecified site (principal)

== ENCOUNTER → 2017-04-17 | Outpatient (CLI) | payer OTHER ==
[2017-04-17 09:47] LABS: BASO % 0.2 %; BASO ABS # 0.02 K/uL (0-0.2); COMPLETE YES; EOS % 2.3 %; HEMATOCRIT 32.7 % (37-47); LYMPH % 13.8 %; LYMPH ABS # 1.59 K/uL (1.2-3.4); MEAN CELL VOLUME 98.8 fL (80-100); MEAN CORPUSCULAR HGB CONC 29.4 g/dl (32-36); MEAN PLATELET VOLUME 12.3 fL (7.4-10.4); MONO % 10.5 %; NEUT % 72.2 %; PLATELET COUNT 198 K/uL (130-400); RED BLOOD COUNT 3.31 M/uL (4.2-5.4); WHITE BLOOD COUNT 11.56 K/uL (4.8-10.8)
[2017-04-17 09:57] LABS: BLOOD UREA NITROGEN 27 mg/dl (7-18); BUN/CREATININE RATIO 24.9 (10-20); CALCIUM 7.8 mg/dl (8.5-10.1); CARBON DIOXIDE 34 mmol/L (21-32); CHLORIDE 103 mmol/L (98-107); CREATININE 1.07 mg/dl (0.60-1.20); GLUCOSE 112 mg/dl (70-99); POTASSIUM 4.6 mmol/L (3.5-5.1); SODIUM 143 mmol/L (136-145)
== END ==
LOC: C.LABUPBEA 08:51
PROVIDERS: ATTEND Nurse Practitioner Family
DX: C81.90 Hodgkin lymphoma, unspecified, unspecified site (principal); R60.1 Generalized edema

== ENCOUNTER → 2017-04-19 | Outpatient (CLI) | payer OTHER ==
[2017-04-19 08:35] LABS: BASO % 0.2 %; BASO ABS # 0.03 K/uL (0-0.2); COMPLETE YES; EOS % 1.9 %; HEMATOCRIT 32.8 % (37-47); IG% 1.2 %; LYMPH % 13.7 %; LYMPH ABS # 1.69 K/uL (1.2-3.4); MEAN CORPUSCULAR HEMOGLOBIN 28.1 pg (25-34); MEAN PLATELET VOLUME 12.2 fL (7.4-10.4); MONO % 11.5 %; NEUT % 71.5 %; PLATELET COUNT 202 K/uL (130-400); RED BLOOD COUNT 3.38 M/uL (4.2-5.4); WHITE BLOOD COUNT 12.32 K/uL (4.8-10.8)
== END ==
LOC: C.LABUPBEA 07:45
PROVIDERS: ATTEND Nurse Practitioner Family
DX: C81.90 Hodgkin lymphoma, unspecified, unspecified site (principal)

== ENCOUNTER → 2017-04-24 | Outpatient (CLI) | payer OTHER ==
[2017-04-24 08:13] LABS: BASO % 0.1 %; BASO ABS # 0.01 K/uL (0-0.2); COMPLETE YES; EOS % 2.6 %; HEMATOCRIT 33.8 % (37-47); IG% 0.8 %; LYMPH % 14.4 %; LYMPH ABS # 1.53 K/uL (1.2-3.4); MEAN CELL VOLUME 98.8 fL (80-100); MEAN CORPUSCULAR HEMOGLOBIN 28.7 pg (25-34); MEAN PLATELET VOLUME 11.8 fL (7.4-10.4); MONO % 12.4 %; NEUT % 69.7 %; PLATELET COUNT 168 K/uL (130-400); RED BLOOD COUNT 3.42 M/uL (4.2-5.4); WHITE BLOOD COUNT 10.62 K/uL (4.8-10.8)
== END ==
LOC: C.LABUPBEA 07:29
PROVIDERS: ATTEND Nurse Practitioner Family
DX: C81.90 Hodgkin lymphoma, unspecified, unspecified site (principal)

== ENCOUNTER → 2017-05-03 | Outpatient (CLI) | payer OTHER ==
[2017-05-03 09:17] LABS: BASO % 0.3 %; BASO ABS # 0.04 K/uL (0-0.2); COMPLETE YES; EOS % 2.2 %; HEMATOCRIT 34.4 % (37-47); IG% 0.9 %; LYMPH % 11.5 %; LYMPH ABS # 1.62 K/uL (1.2-3.4); MEAN CELL VOLUME 98.6 fL (80-100); MEAN CORPUSCULAR HEMOGLOBIN 29.5 pg (25-34); MEAN CORPUSCULAR HGB CONC 29.9 g/dl (32-36); MEAN PLATELET VOLUME 12.5 fL (7.4-10.4); MONO % 10.1 %; PLATELET COUNT 187 K/uL (130-400); RED BLOOD COUNT 3.49 M/uL (4.2-5.4)
[2017-05-03 09:37] LABS: BLOOD UREA NITROGEN 29 mg/dl (7-18); BUN/CREATININE RATIO 19.8 (10-20); CALCIUM 8.2 mg/dl (8.5-10.1); CARBON DIOXIDE 35 mmol/L (21-32); CHLORIDE 105 mmol/L (98-107); CREATININE 1.45 mg/dl (0.60-1.20); GLUCOSE 96 mg/dl (70-99); POTASSIUM 3.6 mmol/L (3.5-5.1); SODIUM 143 mmol/L (136-145)
--- NOTE | 2017-05-05 13:46 | CODING QUERY NO DIAGNOSIS ---
TREATMENT RENDERED WITHOUT A DIAGNOSIS 47 To promote full compliance with coding requirements relating to patient care, physician participation is requested in all cases of school commissioner uncertainty. Please assist us with providing a diagnosis/symptom for the test(s) below: A diagnosis/symptom was not documented on your Order. A valid diagnosis/symptom is required to bill all insurances. Please remember that we are unable to code a diagnosis of rule out, probable, possible, questionable, or suspected. DOS 05/03/17 Tests that require a diagnosis: * CBC w/DIFF DIAGNOSIS: * BMP DIAGNOSIS: *ON YOUR ORDER YOU HAVE DX CODE C81.9, THIS IS AN INVALID CODE, PLEASE ADD CORRECT DX CODE Provider Signature: Date: Thank you Do Raman [facility] Information Management Once completed, please kindly fax back to [phone] For questions please call [phone]
== END ==
LOC: C.LABUPBEA 08:53
PROVIDERS: ATTEND Nurse Practitioner Family
DX: C81.90 Hodgkin lymphoma, unspecified, unspecified site (principal); N18.3 Chronic kidney disease, stage 3 (moderate)

== ENCOUNTER → 2017-05-08 | Outpatient (CLI) | payer OTHER ==
[2017-05-08 08:28] LABS: BLOOD UREA NITROGEN 29 mg/dl (7-18); BUN/CREATININE RATIO 20.5 (10-20); CARBON DIOXIDE 36 mmol/L (21-32); CHLORIDE 104 mmol/L (98-107); CREATININE 1.42 mg/dl (0.60-1.20); GLUCOSE 55 mg/dl (70-99); POTASSIUM 4.4 mmol/L (3.5-5.1); SODIUM 143 mmol/L (136-145)
== END | disposition home or self-care (01) ==
LOC: C.LABUPBEA 08:03
PROVIDERS: ATTEND Nurse Practitioner Family
DX: I10 Essential (primary) hypertension (principal)

== ENCOUNTER → 2017-05-09 | Outpatient (CLI) | payer OTHER ==
--- NOTE | 2017-05-09 16:22 | DIAGNOSTIC IMAGING REPORT ---
TWO VIEW CHEST CLINICAL HISTORY: Cough. FINDINGS: AP and lateral chest radiographs are compared to study dated 03/08/2017. Correlation is made with chest CT dated 07/22/2016. The AP view is degraded by patient rotation. A left PICC line has been placed. The tip of the catheter projects over the SVC. The heart is enlarged and there is atherosclerotic calcification of the thoracic aorta. The pulmonary vasculature is noncongested. There are low lung volumes and chronic interstitial thickening. Small pleural effusions are noted on the lateral projection. There is bibasilar atelectasis. Linear atelectasis versus scarring is again seen in the right midlung. No pneumothorax is identified. The skeletal structures are osteopenic. Thoracic and lumbar compression deformities are identified with evidence of previous multilevel vertebroplasty. There is hyperkyphosis. Postoperative change and chronic posttraumatic deformity are seen in the left humerus. There are numerous healed bilateral rib fractures. IMPRESSION: 1. Cardiomegaly without radiographic evidence of congestive failure. 2. Low lung volumes. No airspace consolidation is seen typical for pneumonia. 3. Trace pleural effusions. Electronically signed by: Tej Bernard M.D. 05/09/2017 4:20 PM Dictated Date/Time: 05/09/2017 4:19 PM
--- NOTE | 2017-05-09 16:32 | DIAGNOSTIC IMAGING REPORT ---
SINUSES MIN 3 VIEWS ROUTINE CLINICAL HISTORY: Cough. Sinus pain. COMPARISON STUDY: Maxillofacial CT April 01, 2013 and facial bone radiographs December 15, 2014. FINDINGS: The right maxillary sinus is clear. There is an air-fluid level within the left maxillary sinus. The frontal, ethmoid and sphenoid sinuses are grossly clear. Mastoid air cells are well pneumatized. IMPRESSION: Left maxillary sinus air-fluid level suggestive of acute sinusitis. Electronically signed by: Lewis Guzmán M.D. 05/09/2017 4:31 PM Dictated Date/Time: 05/09/2017 4:25 PM
== END | disposition home or self-care (01) ==
LOC: C.RAD1850 15:26
PROVIDERS: ATTEND Physician Assistant
DX: R05 Cough (principal)

== ENCOUNTER → 2017-05-15 | Outpatient (CLI) | payer OTHER ==
[2017-05-15 09:35] LABS: BASO % 0.2 %; BASO ABS # 0.02 K/uL (0-0.2); COMPLETE YES; EOS % 2.3 %; HEMATOCRIT 34.1 % (37-47); IG% 0.9 %; LYMPH % 13.7 %; LYMPH ABS # 1.75 K/uL (1.2-3.4); MEAN CELL VOLUME 101.2 fL (80-100); MEAN CORPUSCULAR HEMOGLOBIN 29.4 pg (25-34); MEAN PLATELET VOLUME 11.6 fL (7.4-10.4); MONO % 14.2 %; NEUT % 68.7 %; PLATELET COUNT 229 K/uL (130-400); RED BLOOD COUNT 3.37 M/uL (4.2-5.4)
[2017-05-15 09:39] LABS: BLOOD UREA NITROGEN 19 mg/dl (7-18); BUN/CREATININE RATIO 17.5 (10-20); CALCIUM 8.7 mg/dl (8.5-10.1); CARBON DIOXIDE 37 mmol/L (21-32); CHLORIDE 104 mmol/L (98-107); GLUCOSE 76 mg/dl (70-99); POTASSIUM 4.2 mmol/L (3.5-5.1); SODIUM 140 mmol/L (136-145)
== END | disposition home or self-care (01) ==
LOC: C.LABUPBEA 08:35
PROVIDERS: ATTEND Nurse Practitioner Family
DX: C81.90 Hodgkin lymphoma, unspecified, unspecified site (principal); R60.1 Generalized edema

== ENCOUNTER → 2017-05-23 | Outpatient (CLI) | payer OTHER ==
[~2017-05-23] MED LIST changes: +ALBU1.257 NEB; +AMOX1SUS74 PO; +AMOX1TAB43 PO; +AMOX500T PO; +APR10 PO; +AYRG NAE; +BCTRO INTNAS; +CLOP1TAB54 PO; +CLR10 PO; +CPC LOZ; +DIAZ-165 PO; +DOCU60SY11 PO; +FLV1 PO; +FURO-85 PO; +HPRF5 IV; +IMD/2 PO; +IPRA-64 INH; +LIDO4CRE10 TOP; +LINE1TAB2 PO; +LYR50 PO; +MINEENE9 PR; +MIRT15TA PO; +MOML PO; +MOUTLIQ79 PO; +MTH10 PO; +NIFE30TA2 PO; +NITR50CA4 PO; +NRN100 PO; +NYSS5 PO; +NYST100010 TOP; +OSEL30CA PO; +OXGN; +PHEN-774 PO; +PIPE1INJ11 IV; +PRD/25 PO; +PRD10 PO; +PRED10TA PO; +PROB1TAB16 PO; +PROM1SUP19 PR; +PROM25IN13 IV; +PSEU60TA80 PO; +RBTUDL5 PO; +SALI-3 NAE; +SENN-65 PO; +SODI0.9I55 IV; +SPT/ PO; +SUMA25TA12 PO; +SYMIN INH; +THIA100T27 PO; +TRAZ1TAB48 PO; +VERA1TAB52 PO; +VLM5 PO; +VNTHFA/IN INH; +VTMB12 PO; +ZFRI4 IV; +ZOLP5TAB PO; +[UNRECOGNIZED DRUG - CODE] IV; +[UNRECOGNIZED DRUG - CODE] TOP; +[UNRECOGNIZED DRUG - CODE] TOP; +[UNRECOGNIZED DRUG - OTHER] TOP; +[UNRECOGNIZED DRUG - SUPPLY] TD
[2017-05-23 09:20] LABS: HEMATOCRIT 39.7 % (37-47); HEMOGLOBIN 11.4 g/dL (12.0-16.0); MEAN CELL VOLUME 101.5 fL (80-100); MEAN CORPUSCULAR HEMOGLOBIN 29.2 pg (25-34); MEAN CORPUSCULAR HGB CONC 28.7 g/dl (32-36); MEAN PLATELET VOLUME 12.4 fL (7.4-10.4); PLATELET COUNT 209 K/uL (130-400); RED CELL DISTRIBUTION WIDTH CV 19.4 % (11.5-14.5); RED CELL DISTRIBUTION WIDTH SD 70.4 fL (36.4-46.3)
[2017-05-23 09:21] LABS: BASO % 0.3 %; BASO ABS # 0.03 K/uL (0-0.2); EOS % 3.1 %; EOS ABS # 0.33 K/uL (0-0.5); IG# 0.06 K/uL (0.00-0.02); LYMPH % 16.7 %; LYMPH ABS # 1.77 K/uL (1.2-3.4); MONO % 14.8 %; MONO ABS # 1.57 K/uL (0.11-0.59); NEUT % 64.5 %; NEUT ABS # 6.84 K/uL (1.4-6.5)
== END ==
LOC: EDBD → C.LABUPBEA 08:29
PROVIDERS: ATTEND Nurse Practitioner Family
DX: C81.90 Hodgkin lymphoma, unspecified, unspecified site (principal)

== ENCOUNTER → 2017-05-30 | Outpatient (CLI) | payer OTHER ==
[2017-05-30 08:11] LABS: BASO % 0.3 %; BASO ABS # 0.03 K/uL (0-0.2); EOS % 3.2 %; EOS ABS # 0.35 K/uL (0-0.5); HEMOGLOBIN 11.1 g/dL (12.0-16.0); IG# 0.06 K/uL (0.00-0.02); LYMPH % 14.3 %; LYMPH ABS # 1.58 K/uL (1.2-3.4); MEAN CELL VOLUME 100.3 fL (80-100); MEAN CORPUSCULAR HEMOGLOBIN 29.3 pg (25-34); MEAN CORPUSCULAR HGB CONC 29.2 g/dl (32-36); MEAN PLATELET VOLUME 12.6 fL (7.4-10.4); MONO % 13.4 %; MONO ABS # 1.48 K/uL (0.11-0.59); NEUT % 68.3 %; NEUT ABS # 7.57 K/uL (1.4-6.5); PLATELET COUNT 150 K/uL (130-400); RED CELL DISTRIBUTION WIDTH CV 17.9 % (11.5-14.5); RED CELL DISTRIBUTION WIDTH SD 65.4 fL (36.4-46.3); WHITE BLOOD COUNT 11.07 K/uL (4.8-10.8)
== END | disposition home or self-care (01) ==
LOC: EDBD → C.LABUPBEA 07:27
PROVIDERS: ATTEND Nurse Practitioner Family
DX: E34.9 Endocrine disorder, unspecified (principal); C81.90 Hodgkin lymphoma, unspecified, unspecified site

== ENCOUNTER → 2017-06-05 | Outpatient (CLI) | payer OTHER ==
[~2017-06-05] MED LIST changes: -ALBU1.257 NEB; -AMOX1SUS74 PO; -AMOX1TAB43 PO; -AMOX500T PO; -APR10 PO; -AYRG NAE; -BCTRO INTNAS; -CLOP1TAB54 PO; -CLR10 PO; -CPC LOZ; -DIAZ-165 PO; -DOCU60SY11 PO; -FLV1 PO; -FURO-85 PO; -HPRF5 IV; -IMD/2 PO; -IPRA-64 INH; -LIDO4CRE10 TOP; -LINE1TAB2 PO; -LYR50 PO; -MINEENE9 PR; -MIRT15TA PO; -MOML PO; -MOUTLIQ79 PO; -MTH10 PO; -NIFE30TA2 PO; -NITR50CA4 PO; -NRN100 PO; -NYSS5 PO; -NYST100010 TOP; -OSEL30CA PO; -OXGN; -PHEN-774 PO; -PIPE1INJ11 IV; -PRD/25 PO; -PRD10 PO; -PRED10TA PO; -PROB1TAB16 PO; -PROM1SUP19 PR; -PROM25IN13 IV; -PSEU60TA80 PO; -RBTUDL5 PO; -SALI-3 NAE; -SENN-65 PO; -SODI0.9I55 IV; -SPT/ PO; -SUMA25TA12 PO; -SYMIN INH; -THIA100T27 PO; -TRAZ1TAB48 PO; -VERA1TAB52 PO; -VLM5 PO; -VNTHFA/IN INH; -VTMB12 PO; -ZFRI4 IV; -ZOLP5TAB PO; -[UNRECOGNIZED DRUG - CODE] IV; -[UNRECOGNIZED DRUG - CODE] TOP; -[UNRECOGNIZED DRUG - CODE] TOP; -[UNRECOGNIZED DRUG - OTHER] TOP; -[UNRECOGNIZED DRUG - SUPPLY] TD
[2017-06-05 09:52] LABS: BASO % 0.2 %; BASO ABS # 0.02 K/uL (0-0.2); EOS % 3.8 %; EOS ABS # 0.37 K/uL (0-0.5); HEMATOCRIT 37.8 % (37-47); HEMOGLOBIN 11.1 g/dL (12.0-16.0); IG# 0.04 K/uL (0.00-0.02); LYMPH % 19.6 %; LYMPH ABS # 1.89 K/uL (1.2-3.4); MEAN CORPUSCULAR HEMOGLOBIN 29.4 pg (25-34); MEAN CORPUSCULAR HGB CONC 29.4 g/dl (32-36); MEAN PLATELET VOLUME 13.4 fL (7.4-10.4); MONO ABS # 1.25 K/uL (0.11-0.59); NEUT ABS # 6.06 K/uL (1.4-6.5); PLATELET COUNT 182 K/uL (130-400); RED CELL DISTRIBUTION WIDTH CV 17.4 % (11.5-14.5); RED CELL DISTRIBUTION WIDTH SD 63.7 fL (36.4-46.3); WHITE BLOOD COUNT 9.63 K/uL (4.8-10.8)
== END ==
LOC: C.LABUPBEA 09:19
PROVIDERS: ATTEND Nurse Practitioner Family
DX: R30.0 Dysuria (principal); C81.90 Hodgkin lymphoma, unspecified, unspecified site

== ENCOUNTER → 2017-06-12 | Outpatient (CLI) | payer OTHER ==
[2017-06-12 09:07] LABS: BASO % 0.2 %; BASO ABS # 0.02 K/uL (0-0.2); EOS % 3.5 %; EOS ABS # 0.41 K/uL (0-0.5); HEMATOCRIT 38.7 % (37-47); HEMOGLOBIN 11.3 g/dL (12.0-16.0); IG# 0.06 K/uL (0.00-0.02); LYMPH ABS # 1.87 K/uL (1.2-3.4); MEAN CELL VOLUME 97.7 fL (80-100); MEAN CORPUSCULAR HEMOGLOBIN 28.5 pg (25-34); MEAN CORPUSCULAR HGB CONC 29.2 g/dl (32-36); MEAN PLATELET VOLUME 13.2 fL (7.4-10.4); MONO % 12.6 %; MONO ABS # 1.47 K/uL (0.11-0.59); NEUT % 67.2 %; NEUT ABS # 7.88 K/uL (1.4-6.5); PLATELET COUNT 194 K/uL (130-400); RED CELL DISTRIBUTION WIDTH CV 16.4 % (11.5-14.5); RED CELL DISTRIBUTION WIDTH SD 58.4 fL (36.4-46.3); WHITE BLOOD COUNT 11.71 K/uL (4.8-10.8)
== END ==
LOC: C.LABUPBEA 07:44
PROVIDERS: ATTEND Nurse Practitioner Family
DX: C81.90 Hodgkin lymphoma, unspecified, unspecified site (principal)

== ENCOUNTER → 2017-06-17 | Outpatient (CLI) | payer OTHER ==
[~2017-06-17] MED LIST changes: +AYRG NAE; +CLOP1TAB54 PO; +FURO-85 PO; +MIRT15TA PO; +MOUTLIQ79 PO; +MTH10 PO; +PHEN-939 PO; +PIPE1INJ11 IV; +PRD/25 PO; +SODI0.9I55 IV; +ZOLP5TAB PO
--- NOTE | 2017-07-21 10:06 | CODING QUERY NO DIAGNOSIS ---
TREATMENT RENDERED WITHOUT A DIAGNOSIS : 1945 To promote full compliance with coding requirements relating to patient care, physician participation is requested in all cases of office helper clerical uncertainty. Please assist us with providing a diagnosis/symptom for the test(s) below: A diagnosis/symptom was not documented on your Order. A valid diagnosis/symptom is required to bill all insurances. Please remember that we are unable to code a diagnosis of rule out, probable, possible, questionable, or suspected. Tests that require a diagnosis: DOS: 06/17/17 * UA CLEAN CATCH DIAGNOSIS: * URINE CULTURE CLEAN DIAGNOSIS: * (Metal Mockup Maker insert test name) DIAGNOSIS: * (Metal Mockup Maker insert test name) DIAGNOSIS: * (Metal Mockup Maker insert test name) DIAGNOSIS: * (Metal Mockup Maker insert test name) DIAGNOSIS: * (Metal Mockup Maker insert test name) DIAGNOSIS: Provider Signature: Date: Thank you Mariah Tam [employer] Information Management Once completed, please kindly fax back to [phone] For questions please call [phone]
== END ==
LOC: C.LABUPBEA 12:13
PROVIDERS: ATTEND Nurse Practitioner Family
DX: R30.0 Dysuria (principal)

== ENCOUNTER → 2017-06-19 | Outpatient (CLI) | payer OTHER ==
[~2017-06-19] MED LIST changes: -AYRG NAE; -CLOP1TAB54 PO; -FURO-85 PO; -MIRT15TA PO; -MOUTLIQ79 PO; -MTH10 PO; -PHEN-939 PO; -PIPE1INJ11 IV; -PRD/25 PO; -SODI0.9I55 IV; -ZOLP5TAB PO
[2017-06-19 08:35] LABS: BASO % 0.2 %; BASO ABS # 0.03 K/uL (0-0.2); EOS % 4.8 %; EOS ABS # 0.59 K/uL (0-0.5); HEMATOCRIT 38.5 % (37-47); HEMOGLOBIN 11.5 g/dL (12.0-16.0); IG# 0.06 K/uL (0.00-0.02); LYMPH % 15.6 %; LYMPH ABS # 1.93 K/uL (1.2-3.4); MEAN CELL VOLUME 97.2 fL (80-100); MEAN CORPUSCULAR HGB CONC 29.9 g/dl (32-36); MEAN PLATELET VOLUME 13.2 fL (7.4-10.4); MONO % 12.2 %; MONO ABS # 1.51 K/uL (0.11-0.59); NEUT % 66.7 %; NEUT ABS # 8.24 K/uL (1.4-6.5); PLATELET COUNT 179 K/uL (130-400); RED CELL DISTRIBUTION WIDTH CV 16.3 % (11.5-14.5); RED CELL DISTRIBUTION WIDTH SD 57.9 fL (36.4-46.3); WHITE BLOOD COUNT 12.36 K/uL (4.8-10.8)
== END ==
LOC: C.LABUPBEA 07:54
PROVIDERS: ATTEND Nurse Practitioner Family
DX: C81.90 Hodgkin lymphoma, unspecified, unspecified site (principal)

== ENCOUNTER → 2017-06-20 | Outpatient (CLI) | payer OTHER ==
[2017-06-20 08:59] LABS: BASO % 0.1 %; BASO ABS # 0.02 K/uL (0-0.2); EOS % 3.6 %; EOS ABS # 0.48 K/uL (0-0.5); HEMATOCRIT 40.7 % (37-47); HEMOGLOBIN 12.2 g/dL (12.0-16.0); LYMPH % 14.3 %; LYMPH ABS # 1.93 K/uL (1.2-3.4); MEAN CELL VOLUME 97.4 fL (80-100); MEAN CORPUSCULAR HEMOGLOBIN 29.2 pg (25-34); MEAN PLATELET VOLUME 12.9 fL (7.4-10.4); MONO % 10.1 %; MONO ABS # 1.37 K/uL (0.11-0.59); NEUT % 71.2 %; NEUT ABS # 9.61 K/uL (1.4-6.5); PLATELET COUNT 175 K/uL (130-400); RED CELL DISTRIBUTION WIDTH CV 16.2 % (11.5-14.5); RED CELL DISTRIBUTION WIDTH SD 57.3 fL (36.4-46.3); WHITE BLOOD COUNT 13.51 K/uL (4.8-10.8)
[2017-06-20 09:06] LABS: BLOOD UREA NITROGEN 41 mg/dl (7-18); CALCIUM 9.5 mg/dl (8.5-10.1); CARBON DIOXIDE 38 mmol/L (21-32); CREATININE 1.99 mg/dl (0.60-1.20); GLUCOSE 73 mg/dl (70-99); POTASSIUM 3.5 mmol/L (3.5-5.1); SODIUM 139 mmol/L (136-145)
== END ==
LOC: C.LABUPBEA 08:40
PROVIDERS: ATTEND Nurse Practitioner Family
DX: C81.90 Hodgkin lymphoma, unspecified, unspecified site (principal); R60.9 Edema, unspecified

== ENCOUNTER → 2017-06-22 | Outpatient (CLI) | payer OTHER ==
[~2017-06-22] MED LIST changes: +AYRG NAE; +CLOP1TAB54 PO; +FURO-85 PO; +MIRT15TA PO; +MOUTLIQ79 PO; +MTH10 PO; +PHEN-939 PO; +PIPE1INJ11 IV; +PRD/25 PO; +SODI0.9I55 IV; +ZOLP5TAB PO
[2017-06-22 08:46] LABS: MEAN CORPUSCULAR HGB CONC 29.9 g/dl (32-36)
[2017-06-22 08:53] LABS: BLOOD UREA NITROGEN 29 mg/dl (7-18); CALCIUM 8.9 mg/dl (8.5-10.1); CARBON DIOXIDE 36 mmol/L (21-32); CREATININE 1.46 mg/dl (0.60-1.20); GLUCOSE 66 mg/dl (70-99); POTASSIUM 3.9 mmol/L (3.5-5.1); SODIUM 142 mmol/L (136-145)
[2017-06-22 09:01] LABS: HEMATOCRIT 37.5 % (37-47); HEMOGLOBIN 11.2 g/dL (12.0-16.0); MEAN CELL VOLUME 97.2 fL (80-100); RED CELL DISTRIBUTION WIDTH CV 15.9 % (11.5-14.5); RED CELL DISTRIBUTION WIDTH SD 56.1 fL (36.4-46.3); WHITE BLOOD COUNT 11.62 K/uL (4.8-10.8)
[2017-06-22 09:15] LABS: MEAN PLATELET VOLUME 13.4 fL (7.4-10.4); PLATELET COUNT 156 K/uL (130-400)
[2017-06-22 09:17] LABS: BASO % 0.3 %; BASO ABS # 0.03 K/uL (0-0.2); EOS % 5.9 %; EOS ABS # 0.68 K/uL (0-0.5); IG# 0.06 K/uL (0.00-0.02); LYMPH ABS # 1.51 K/uL (1.2-3.4); MONO % 10.7 %; MONO ABS # 1.24 K/uL (0.11-0.59); NEUT % 69.6 %
--- NOTE | 2017-06-26 12:26 | CODING QUERY NO DIAGNOSIS ---
TREATMENT RENDERED WITHOUT A DIAGNOSIS 47 To promote full compliance with coding requirements relating to patient care, physician participation is requested in all cases of hospital cook uncertainty. Please assist us with providing a diagnosis/symptom for the test(s) below: A diagnosis/symptom was not documented on your Order. A valid diagnosis/symptom is required to bill all insurances. Please remember that we are unable to code a diagnosis of rule out, probable, possible, questionable, or suspected. DOS 06/22/17 Tests that require a diagnosis: * CBC W/DIFF DIAGNOSIS: *ON YOUR ORDER YOU HAVE DX CODE C81.9, THIS IS AN INVALID CODE, PLEASE ADD CORRECT DX CODE Provider Signature: Date: Thank you Doana Raman Health Information Management Once completed, please kindly fax back to [phone] For questions please call [phone]
== END ==
LOC: C.LABUPBEA 08:23
PROVIDERS: ATTEND Nurse Practitioner Family
DX: R60.9 Edema, unspecified (principal); N39.0 Urinary tract infection, site not specified; J18.9 Pneumonia, unspecified organism

== ENCOUNTER 2017-06-25 11:09 | Emergency (ER) | payer OTHER ==
[~2017-06-25] VITALS: Ht 149.9 cm; Wt 58.6 kg
[~2017-06-25 11:09] MED LIST changes: -AYRG NAE; -CLOP1TAB54 PO; -FURO-85 PO; -MIRT15TA PO; -MOUTLIQ79 PO; -MTH10 PO; -PHEN-939 PO; -PIPE1INJ11 IV; -PRD/25 PO; -SODI0.9I55 IV; -ZOLP5TAB PO
[2017-06-25 11:14] VITALS: TEMP 36.9; Ht 149.9 cm; Wt 58.6 kg
--- NOTE | 2017-06-25 11:19 | EMERGENCY ROOM VISIT NOTE ---
History Report prepared by Ana Luisa: Demetrio Zavala Under the Supervision of: Dr. Jonnathan Ramirez M.D. First contact with patient: 11:11 Chief Complaint: ABDOMINAL PAIN Stated Complaint: ABDOMINAL PAIN History of Present Illness The patient is a 71 year old female with a history of COPD who presents to the Emergency Room via EMS from [facility] with complaints of worsening weakness today. The patient was sent in by the [facility] tele-physician with a list of CT abdomen/pelvis without contrast, CBC and UA with culture. The patient noted there that she was just not feeling well. The patient states that she just started an antibiotic (Ceftin IV) for a diagnosed UTI. The patient notes that still has not been "urinating okay". She adds that she has been having low to mid abdominal pain around her bladder. She says that her appetite has been fine recently. She denies any vomiting, runny nose, falls, fevers, loss of consciousness, or headaches. Source of History: patient, nursing staff Onset: Today Position: other (global - weakness) Quality: other (diagnosed with UTI) Timing: worsening Associated Symptoms: + abdominal pain (mid to low), + urinary symptoms, No LOC, No fevers, No headache, No vomiting Note: Denies falls, runny nose. Review of Systems See HPI for pertinent positives & negatives. A total of 10 systems reviewed and were otherwise negative. Past Medical & Surgical Medical Problems: (1) Acute respiratory failure with hypoxia (2) Ambulatory dysfunction (3) Cholelithiases (4) Chronic kidney disease (CKD) stage G3a/A1, moderately decreased glomerular filtration rate (GFR) between 45-59 mL/min/1.73 square meter and albuminuria creatinine ratio less than 30 mg/g (5) Chronic Kidney Disease, Stage Iii (Moderate) (6) Compression fracture of fourth lumbar vertebra (7) COPD (chronic obstructive pulmonary disease) (8) Crystal arthritis (9) Duodenal bulb ulcer (10) DVT (deep venous thrombosis) (11) Fecal impaction of colon (12) Fracture of right olecranon process (13) Gout (14) Gout attack (15) Headache (16) Hodgkins lymphoma (17) Humerus fracture (18) Hyperlipidemia Nec/Nos (19) Hypertension (20) Hypertension (21) Hypertensive urgency (22) Intractable pain (23) Knee pain (24) Left renal artery stenosis (25) Lethargy (26) Leukocytosis (27) Lower extremity edema (28) Lumbar compression fracture (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, 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, with chronic kidney disease (30) Mucus plugging of bronchi (31) Narcotic withdrawal (32) Opiate use (33) Opioid dependence (34) Osteoporosis (35) Perforated duodenal ulcer (36) PNA (pneumonia) (37) Pneumonia (38) Renal artery stenosis (39) right hand cellulitis (40) Right renal artery stenosis (41) Secondary hyperparathyroidism (42) Sepsis secondary to UTI (43) Thrush, oral (44) UTI (urinary tract infection) (45) Wedge compression fracture of T11 vertebra Surgical Problems: (1) History of kyphoplasty (2) left renal artery stent placement Family History Heart disease Social History Smoking Status: Never Smoker Alcohol Use: none Drug Use: none Marital Status: Housing Status: lives with family Occupation Status: disabled Current/Historical Medications Scheduled Allopurinol (Zyloprim), 100 MG PO BID Baclofen (Lioresal), 10 MG PO TID Calcitonin [place] (Calcitonin-[place]), 1 SPRAY ERIC QAM Carvedilol (Coreg), 25 MG PO BID Cholecalciferol (D-1000), 4,000 UNITS PO QAM Clopidogrel Bisulfate (Plavix), 75 MG PO QAM Duloxetine HCl (Cymbalta), 30 MG PO QAM Ferrous Sulfate (Kp Ferrous Sulfate), 325 MG PO BID Fluticasone Prop/Salmeterol (Advair Diskus 250/50 60 Dose), 1 PUFFS INH BID Fluticasone Propionate (Nasal) (Flonase Allergy Relief Ch), 1 SPRAY ERIC BID Furosemide (Lasix), 20 MG PO QAM Ipratropium-Albuterol (Combivent Respimat), 1 PUFFS INH QID Latanoprost (Latanoprost), 1 DROP OPR HS Melatonin (Melatonin Maximum Strengt), 5 MG PO HS Methadone HCl (Methadone HCl), 30 MG PO TID Mirtazapine (Remeron), 15 MG PO HS Multivitamin (Multivitamin), 1 TAB PO QAM Pantoprazole (Protonix), 40 MG PO BID Polyethylene Glycol 3350 (Miralax), 17 GM PO QAM Potassium Chloride (Micro-K Ext Rel), 10 MEQ PO QAM Prednisone (Prednisone), 2.5 MG PO QAM Saccharomyces Boulardii (Florastor), 1 CAP PO QAM Sennosides (Senokot), 8.6 MG PO QAM Sodium Chloride ([place] Saline Nasal), 1 APPLN ERIC BID Tiotropium [place] (Spiriva Handihaler), 1 CAP INH DAILY Zolpidem Tartrate (Ambien), 5 MG PO HS Scheduled PRN Acetaminophen (Tylenol), 650 MG PO Q6 PRN for Pain or Fever Epinephrine (Epipen), 0.3 MG IM UD PRN for ALLERGIC REACTION Magnesium Hydroxide (Milk of Magnesia), 30 ML PO UD PRN for Constipation Mouthwashes (Biotene Dry Mouth Mouthwa), 3 SPRAY PO TID PRN for DRYNESS Ondasetron Odt (Zofran Odt), 4 MG SL Q6H PRN for Nausea Phenazopyridine Hcl (Pyridium), 100 MG PO BID PRN for URGENCY Piperacillin Sodium-Tazobactam (Zosyn), 2.25 GM IV Q6H PRN for ESBL IN URINE Miscellaneous Medications Bisacodyl (Dulcolax), 1 SUPP [place] Dextrose (Diabetic Use) (Insta-Glucose), 1 APPLN PO Glucagon (Glucagon Emergency Kit), 1 APPLN IM Sodium Chloride Flush (Normal Saline Flush), 10 ML IV Sodium Phosphates (Fleet Enema Six Pack), 1 APPL RE Allergies Coded Allergies: Squash (Verified Allergy, Unknown, Zucchini, 06/25/17) Azithromycin (Verified Adverse Reaction, Unknown, nausea, 06/25/17) Levofloxacin (Verified Adverse Reaction, Unknown, nausea, 06/25/17) Physical Exam Vital Signs Date Time Temp Pulse Resp B/P (MAP) Pulse Ox O2 Delivery O2 Flow Rate FiO2 06/25/17 15:07 69 16 177/90 98 06/25/17 14:50 69 16 177/90 98 Room Air 06/25/17 12:34 68 192/96 92 Nasal Cannula 4.0 06/25/17 12:12 70 16 172/78 98 Nasal Cannula 3.0 06/25/17 11:14 36.9 70 16 182/93 98 Nasal Cannula 3.0 Physical Exam GENERAL: Patient is chronically unwell appearing and in no acute distress. HEENT: No acute trauma, normocephalic atraumatic, mucous membranes moist, no nasal congestion, no scleral icterus. NECK: No stridor, no adenopathy, no meningismus, trachea is midline. LUNGS: Mild wheezing bilaterally. No rhonchi. HEART: Regular rate and rhythm. No murmurs, rubs, gallops appreciated. ABDOMEN: Soft, vague suprapubic tenderness to palpation, bowel sounds positive, no masses appreciated, no peritonitis. BACK: No midline tenderness, no CVA tenderness EXTREMITIES: Normal motion all extremities. Wasted bilateral lower extremities. PICC line right arm. NEUROLOGIC: Alert and oriented, no acute motor or sensory deficits, no focal weakness, cranial nerves grossly intact. SKIN: No rash, no jaundice, no diaphoresis. Medical Decision & Procedures ER Provider Diagnostic Interpretation: CT results and stated below per my review and radiologist interpretation: CT OF THE ABDOMEN AND PELVIS WITHOUT CONTRAST, STONE PROTOCOL CLINICAL HISTORY: Abdominal pain. Urinary tract infection. COMPARISON STUDY: CTA of the abdomen March 04, [address] of the abdomen and pelvis February 28, 2017. TECHNIQUE: Helical axial images of the abdomen and pelvis were obtained without IV or oral contrast according to renal stone protocol. A dose lowering technique was utilized adhering to the principles of ALARA. FINDINGS: Visualized portions of the lower chest demonstrate trace bilateral pleural effusions with associated segmental opacity suggestive of atelectasis. Similar findings were shown on several previous exams. The heart is moderately enlarged. No pneumatosis, free air or portal venous gas is present. Gallbladder is moderately distended without pericholecystic infiltration. There is no evidence for acute cholecystitis. Unenhanced images of the liver, spleen, adrenal glands and pancreas are unremarkable. There is no biliary or pancreatic ductal dilatation. There is marked right and moderate left renal cortical thinning. There is no hydronephrosis. A right renal artery stent is noted. Patency cannot be assessed on this unenhanced exam. There is no evidence for a bowel obstruction. There is sigmoid diverticulosis without evidence for acute diverticulitis. There is trace fluid within the pelvis. The appendix is normal. Anterior pelvic collaterals are again noted. Multilevel vertebral augmentations are noted. Postoperative findings within the proximal bilateral femurs are noted. There may be avascular necrosis of the right femoral head. There are numerous old bilateral rib fractures as well as old left inferior pubic rami fractures. IMPRESSION: 1. No acute process within the abdomen or pelvis on unenhanced exam. 2. Marked right and moderate left renal cortical thinning. No hydronephrosis. 3. No bowel obstruction. Normal appendix. 4. Colonic diverticulosis without evidence for acute diverticulitis. Electronically signed by: Lewis Guzmán M.D. 06/25/2017 12:38 PM Dictated Date/Time: 06/25/2017 12:30 PM Laboratory Results 06/25/17 11:30 Red Blood Count 3.78, Mean Corpuscular Volume 95.8, Mean Corpuscular Hemoglobin 29.6, Mean Corpuscular Hemoglobin Concent 30.9, Mean Platelet Volume 13.1, Neutrophils (%) (Auto) 71.1, Lymphocytes (%) (Auto) 11.3, Monocytes (%) (Auto) 10.9, Eosinophils (%) (Auto) 6.0, Basophils (%) (Auto) 0.1, Neutrophils # (Auto ) 9.71, Lymphocytes # (Auto) 1.54, Monocytes # (Auto) 1.49, Eosinophils # (Auto ) 0.82, Basophils # (Auto) 0.02 06/25/17 11:30 Test 06/25/17 11:30 06/25/17 11:45 White Blood Count 13.66 K/uL (4.8-10.8) Red Blood Count 3.78 M/uL (4.2-5.4) Hemoglobin 11.2 g/dL (12.0-16.0) Hematocrit 36.2 % (37-47) Mean Corpuscular Volume 95.8 fL (80-100) Mean Corpuscular Hemoglobin 29.6 pg (25-34) Mean Corpuscular Hemoglobin Concent 30.9 g/dl (32-36) Platelet Count 148 K/uL (130-400) Mean Platelet Volume 13.1 fL (7.4-10.4) Neutrophils (%) (Auto) 71.1 % Lymphocytes (%) (Auto) 11.3 % Monocytes (%) (Auto) 10.9 % Eosinophils (%) (Auto) 6.0 % Basophils (%) (Auto) 0.1 % Neutrophils # (Auto) 9.71 K/uL (1.4-6.5) Lymphocytes # (Auto) 1.54 K/uL (1.2-3.4) Monocytes # (Auto) 1.49 K/uL (0.11-0.59) Eosinophils # (Auto) 0.82 K/uL (0-0.5) Basophils # (Auto) 0.02 K/uL (0-0.2) RDW Standard Deviation 55.6 fL (36.4-46.3) RDW Coefficient of Variation 16.1 % (11.5-14.5) Immature Granulocyte % (Auto) 0.6 % Immature Granulocyte # (Auto) 0.08 K/uL (0.00-0.02) Platelet Estimate DECREASED Basophilic Stippling OCCASIONAL Anisocytosis PRESENT Anion Gap 6.0 mmol/L (3-11) Est Creatinine Clear Calc Drug Dose 23.9 ml/min Estimated GFR () 34.3 Estimated GFR (Non- 29.6 BUN/Creatinine Ratio 13.0 (10-20) Calcium Level 8.9 mg/dl (8.5-10.1) Phosphorus Level 3.4 mg/dl (2.5-4.9) Magnesium Level 1.8 mg/dl (1.8-2.4) Total Bilirubin 0.4 mg/dl (0.2-1) Direct Bilirubin 0.1 mg/dl (0-0.2) Aspartate Amino Transf (AST/SGOT) 20 U/L (15-37) Alanine Aminotransferase (ALT/SGPT) 12 U/L (12-78) Alkaline Phosphatase 104 U/L (45-117) Troponin I 0.016 ng/ml (0-0.045) Total Protein 6.5 gm/dl (6.4-8.2) Albumin 2.8 gm/dl (3.4-5.0) Lipase 71 U/L (73-393) Urine Color YELLOW Urine Appearance CLEAR (CLEAR) Urine pH 7.0 (4.5-7.5) Urine Specific Louann 1.016 (1.000-1.030) Urine Protein TRACE (NEG) Urine Glucose (UA) NEG (NEG) Urine Ketones NEG (NEG) Urine Occult Blood NEG (NEG) Urine Nitrite NEG (NEG) Urine Bilirubin NEG (NEG) Urine Urobilinogen NEG (NEG) Urine Leukocyte Esterase NEG (NEG) Urine WBC (Auto) 1-5 /hpf (0-5) Urine RBC (Auto) 0-4 /hpf (0-4) Urine Hyaline Casts (Auto) 1-5 /lpf (0-5) Urine Epithelial Cells (Auto) 0-5 /lpf (0-5) Urine Bacteria (Auto) NEG (NEG) Laboratory results as reviewed by me. Medications Administered Medications (Trade) Dose Ordered Sig/Estephania Route Start Time Stop Time Status Last Admin Dose Admin Sodium Chloride 500 ml @ 999 mls/hr Q31M STAT IV 06/25/17 12:23 06/25/17 12:53 DC 06/25/17 12:23 999 MLS/HR Heparin Sodium (Porcine) (Heparin 10 Unit/ ml 5 ml Flush) 5 ml STK-MED ONCE .ROUTE 06/25/17 14:39 06/25/17 14:40 DC 06/25/17 14:41 5 ML ECG Indication: abdominal pain Rate (beats per minute): 68 Rhythm: normal sinus Findings: no acute ischemic change, no ectopy, other (poor baseline, prolonged QTC) Change: EKG: Electrocardiogram per my interpretation. ED Course 1112: The patient was evaluated in room C2B. A complete history and physical exam was performed. 1200: I discussed the patient with Dr. Mckeon - [facility] rehab physician - he gave me his cell phone number, and asked that I get in touch with the director of the ER. He wants to avoid admission at all costs for the patient. 1309: I talked to Dr. Mckeon again and reviewed at length the CT findings and lab findings, as well as the patient's vital signs throughout the patient's visit, and Dr. Mckeon feels comfortable with her coming back to the intermediate, and they will follow-up with further labs/evaluations. 1311: Reevaluated the patient. Discussed results and discharge instructions: she verbalized understanding and agreement. The patient is ready for discharge. Medical Decision Differential: Sepsis, Infectious (UTI/Pneumonia/Meningitis/etc), Metabolic/ Electrolyte Abnormality, Cardiac, Dehydration, Anemia, Hepatic, Endocrine, Toxicologic, Neurologic, amongst other pathologies entertained. 71 yr old female sent over by [facility] for evaluation of generalized fatigued and weakness. Being treated for UTI which by straight cath is now clear. Glucose a bit low but states she hadn't eaten well and is eating well here. CT without acute findings but whole host of other findings. GB dilation without RUQ TTP, nor evidence cholecystitis. WBC mildly elevated which I suspect is due to recent infection and dehydration. Labs otherwise looking OK. She is modestly dehydrated and given IV fluids. Reviewed at length with her TelePhysician. She is feeling better and comfortable with discharge. Stable at discharge sating well on her normal NC O2. Medication Reconcilliation Current Medication List: was personally reviewed by me Blood Pressure Screening Patient's blood pressure: Normal blood pressure Consults Time Called: 1145 Consulting Physician: Dr. Mike Vila rehab physician Returned Call: 1200 I discussed the patient with Dr. Mike Vila rehab physician - he gave me his cell phone number, and asked that I get in touch with the director of the ER. He wants to avoid admission at all costs for the patient. Additional Consults: Time Called: 1305 Consulted Physician: Dr. Mike Vila rehab physician Returned Call: 1309 Additional Comments: I talked to Dr. Mckeon again and reviewed at length the CT findings and lab findings, as well as the patient's vital signs throughout the patient's visit, and Dr. Mckeon feels comfortable with her coming back to the intermediate, and they will follow-up with further labs/evaluations. Impression Primary Impression: Generalized weakness Additional Impressions: Dehydration Renal insufficiency Gallbladder dilatation Scribe Attestation The scribe's documentation has been prepared under my direction and personally reviewed by me in its entirety. I confirm that the note above accurately reflects all work, treatment, procedures, and medical decision making performed by me. Departure Information Dispostion Home / Self-Care Referrals Marti Vila (PCP) Patient Instructions My [facility] Additional Instructions Multiple labs as well as CT abdo/pelv were done while in emergency department. It is important that primary provider evaluate these further for complete work- up of all findings. The gall bladder was moderately dilated. There is no evidence that it is currently infected on CT scan. Return if pain in upper abdomen, vomiting, increased weakness, fevers, or other concerns. Problem Qualifiers
[2017-06-25] MEDS ORDERED: CLOP1TAB54 PO (11:48)
[2017-06-25] MEDS ORDERED: FURO-85 PO (11:50)
[2017-06-25 11:51] LABS: MEAN CORPUSCULAR HGB CONC 30.9 g/dl (32-36)
[2017-06-25] MEDS ORDERED: SODI0.9I55 IV (11:53)
[2017-06-25] MEDS ORDERED: MIRT15TA PO (11:55)
[2017-06-25] MEDS ORDERED: PRD/25 PO (11:55)
[2017-06-25] MEDS ORDERED: CARV25TA PO (11:57)
[2017-06-25] MEDS ORDERED: AYRG NAE (11:57)
[2017-06-25 11:58] LABS: HEMATOCRIT 36.2 % (37-47); HEMOGLOBIN 11.2 g/dL (12.0-16.0); MEAN CELL VOLUME 95.8 fL (80-100); MEAN CORPUSCULAR HEMOGLOBIN 29.6 pg (25-34); RED CELL DISTRIBUTION WIDTH CV 16.1 % (11.5-14.5); RED CELL DISTRIBUTION WIDTH SD 55.6 fL (36.4-46.3); WHITE BLOOD COUNT 13.66 K/uL (4.8-10.8)
[2017-06-25] MEDS ORDERED: FERR1TAB13 PO (11:58)
[2017-06-25] MEDS ORDERED: PHEN-939 PO (11:59)
[2017-06-25] MEDS ORDERED: MOUTLIQ79 PO (12:01)
[2017-06-25] MEDS ORDERED: MTH10 PO (12:02)
[2017-06-25] MEDS ORDERED: PIPE1INJ11 IV (12:06)
[2017-06-25] MEDS ORDERED: ZOLP5TAB PO (12:07)
[2017-06-25 12:08] LABS: ALBUMIN 2.8 gm/dl (3.4-5.0); CALCIUM 8.9 mg/dl (8.5-10.1); CREATININE 1.73 mg/dl (0.60-1.20); POTASSIUM 3.6 mmol/L (3.5-5.1)
[2017-06-25 12:11] LABS: PHOSPHORUS 3.4 mg/dl (2.5-4.9); TOTAL PROTEIN 6.5 gm/dl (6.4-8.2)
[2017-06-25] MEDS ORDERED: SODIUM CHLORIDE 0.9% 500ML 500 ML IV STA (12:23)
[2017-06-25 12:33] LABS: BASO % 0.1 %; BASO ABS # 0.02 K/uL (0-0.2); EOS ABS # 0.82 K/uL (0-0.5); IG# 0.08 K/uL (0.00-0.02); LYMPH % 11.3 %; LYMPH ABS # 1.54 K/uL (1.2-3.4); MEAN PLATELET VOLUME 13.1 fL (7.4-10.4); MONO % 10.9 %; MONO ABS # 1.49 K/uL (0.11-0.59); NEUT % 71.1 %; NEUT ABS # 9.71 K/uL (1.4-6.5); PLATELET COUNT 148 K/uL (130-400)
--- NOTE | 2017-06-25 12:39 | DIAGNOSTIC IMAGING REPORT ---
CT OF THE ABDOMEN AND PELVIS WITHOUT CONTRAST, STONE PROTOCOL CLINICAL HISTORY: Abdominal pain. Urinary tract infection. COMPARISON STUDY: CTA of the abdomen March 04, [address] of the abdomen and pelvis February 28, 2017. TECHNIQUE: Helical axial images of the abdomen and pelvis were obtained without IV or oral contrast according to renal stone protocol. A dose lowering technique was utilized adhering to the principles of ALARA. FINDINGS: Visualized portions of the lower chest demonstrate trace bilateral pleural effusions with associated segmental opacity suggestive of atelectasis. Similar findings were shown on several previous exams. The heart is moderately enlarged. No pneumatosis, free air or portal venous gas is present. Gallbladder is moderately distended without pericholecystic infiltration. There is no evidence for acute cholecystitis. Unenhanced images of the liver, spleen, adrenal glands and pancreas are unremarkable. There is no biliary or pancreatic ductal dilatation. There is marked right and moderate left renal cortical thinning. There is no hydronephrosis. A right renal artery stent is noted. Patency cannot be assessed on this unenhanced exam. There is no evidence for a bowel obstruction. There is sigmoid diverticulosis without evidence for acute diverticulitis. There is trace fluid within the pelvis. The appendix is normal. Anterior pelvic collaterals are again noted. Multilevel vertebral augmentations are noted. Postoperative findings within the proximal bilateral femurs are noted. There may be avascular necrosis of the right femoral head. There are numerous old bilateral rib fractures as well as old left inferior pubic rami fractures. IMPRESSION: 1. No acute process within the abdomen or pelvis on unenhanced exam. 2. Marked right and moderate left renal cortical thinning. No hydronephrosis. 3. No bowel obstruction. Normal appendix. 4. Colonic diverticulosis without evidence for acute diverticulitis. Electronically signed by: Lewis Guzmán M.D. 06/25/2017 12:38 PM Dictated Date/Time: 06/25/2017 12:30 PM
[2017-06-25 15:07] VITALS: BP 177/90; PULSE 69; O2SAT 98
== END 2017-06-25 15:05 ==
LOC: EDBD 11:09 → C.EDC 11:10
DX: R53.1 Weakness (principal); E86.0 Dehydration; N28.9 Disorder of kidney and ureter, unspecified; K82.8 Other specified diseases of gallbladder; J44.9 Chronic obstructive pulmonary disease, unspecified; N18.3 Chronic kidney disease, stage 3 (moderate); I12.9 Hypertensive chronic kidney disease with stage 1 through stage 4 chronic kidney disease, or unspecified chronic kidney disease; E78.5 Hyperlipidemia, unspecified; M81.0 Age-related osteoporosis without current pathological fracture; Z79.02 Long term (current) use of antithrombotics/antiplatelets; Z79.899 Other long term (current) drug therapy; Z85.71 Personal history of Hodgkin lymphoma; Z86.19 Personal history of other infectious and parasitic diseases; Z87.19 Personal history of other diseases of the digestive system; Z87.828 Personal history of other (healed) physical injury and trauma; Z87.448 Personal history of other diseases of urinary system; Z82.49 Family history of ischemic heart disease and other diseases of the circulatory system

== ENCOUNTER → 2017-06-26 | Outpatient (CLI) | payer OTHER ==
[~2017-06-26] MED LIST changes: +AYRG NAE; -CLON0.3D4 TD; +CLOP1TAB54 PO; -CRFL PO; +FURO-85 PO; -LSX20 PO; -METH10TA2 PO; +MIRT15TA PO; +MOUTLIQ79 PO; +MTH10 PO; -NYSP EXT; +PHEN-939 PO; +PIPE1INJ11 IV; -PLV75 PO; +PRD/25 PO; -PRED-301 PO; +SODI0.9I55 IV; +ZOLP5TAB PO
[2017-06-26 09:10] LABS: HEMATOCRIT 36.3 % (37-47); HEMOGLOBIN 10.8 g/dL (12.0-16.0); MEAN CELL VOLUME 97.3 fL (80-100); MEAN CORPUSCULAR HGB CONC 29.8 g/dl (32-36); MEAN PLATELET VOLUME 13.3 fL (7.4-10.4); PLATELET COUNT 154 K/uL (130-400); RED CELL DISTRIBUTION WIDTH CV 16.5 % (11.5-14.5); RED CELL DISTRIBUTION WIDTH SD 58.1 fL (36.4-46.3); WHITE BLOOD COUNT 12.85 K/uL (4.8-10.8)
[2017-06-26 09:24] LABS: BLOOD UREA NITROGEN 20 mg/dl (7-18); CALCIUM 9.2 mg/dl (8.5-10.1); CARBON DIOXIDE 34 mmol/L (21-32); CREATININE 1.71 mg/dl (0.60-1.20); GLUCOSE 57 mg/dl (70-99); POTASSIUM 3.7 mmol/L (3.5-5.1); SODIUM 145 mmol/L (136-145)
--- NOTE | 2017-06-29 13:50 | CODING QUERY NO DIAGNOSIS ---
TREATMENT RENDERED WITHOUT A DIAGNOSIS 47 To promote full compliance with coding requirements relating to patient care, physician participation is requested in all cases of bed manager uncertainty. Please assist us with providing a diagnosis/symptom for the test(s) below: A diagnosis/symptom was not documented on your Order. A valid diagnosis/symptom is required to bill all insurances. Please remember that we are unable to code a diagnosis of rule out, probable, possible, questionable, or suspected. DOS 06/26/17 Tests that require a diagnosis: * CBC with DIFF DIAGNOSIS: *ON YOUR ORDER YOU HAVE DX CODE C81.9 THIS IS AN INVALID CODE, CAN YOU PLEASE ADD CORRECT DX CODE Provider Signature: Date: Thank you Do Raman Health Information Management Once completed, please kindly fax back to [phone] For questions please call [phone]
== END ==
LOC: C.LABUPBEA 08:40
PROVIDERS: ATTEND Nurse Practitioner Family
DX: Z01.89 Encounter for other specified special examinations (principal)

== ENCOUNTER → 2017-06-28 | Outpatient (CLI) | payer OTHER ==
[2017-06-28 08:12] LABS: HEMATOCRIT 36.5 % (37-47); HEMOGLOBIN 10.9 g/dL (12.0-16.0); MEAN CELL VOLUME 96.6 fL (80-100); MEAN CORPUSCULAR HEMOGLOBIN 28.8 pg (25-34); PLATELET COUNT 142 K/uL (130-400); RED CELL DISTRIBUTION WIDTH CV 16.5 % (11.5-14.5); RED CELL DISTRIBUTION WIDTH SD 57.8 fL (36.4-46.3); WHITE BLOOD COUNT 13.14 K/uL (4.8-10.8)
[2017-06-28 08:18] LABS: BLOOD UREA NITROGEN 20 mg/dl (7-18); CALCIUM 9.3 mg/dl (8.5-10.1); CARBON DIOXIDE 35 mmol/L (21-32); CREATININE 1.62 mg/dl (0.60-1.20); GLUCOSE 73 mg/dl (70-99); POTASSIUM 3.8 mmol/L (3.5-5.1); SODIUM 145 mmol/L (136-145)
[2017-06-28 08:28] LABS: MEAN CORPUSCULAR HGB CONC 29.9 g/dl (32-36)
== END | disposition home or self-care (01) ==
LOC: C.LABUPBEA 08:03
PROVIDERS: ATTEND Nurse Practitioner Family
DX: R60.9 Edema, unspecified (principal); C81.90 Hodgkin lymphoma, unspecified, unspecified site

== ENCOUNTER → 2017-07-10 | Outpatient (CLI) | payer OTHER ==
[2017-07-10 08:27] LABS: BASO % 0.2 %; BASO ABS # 0.02 K/uL (0-0.2); BLOOD UREA NITROGEN 30 mg/dl (7-18); CALCIUM 9.7 mg/dl (8.5-10.1); CARBON DIOXIDE 39 mmol/L (21-32); CREATININE 1.94 mg/dl (0.60-1.20); EOS % 6.1 %; EOS ABS # 0.66 K/uL (0-0.5); GLUCOSE 83 mg/dl (70-99); HEMATOCRIT 37.4 % (37-47); HEMOGLOBIN 11.2 g/dL (12.0-16.0); IG# 0.05 K/uL (0.00-0.02); LYMPH % 17.1 %; LYMPH ABS # 1.86 K/uL (1.2-3.4); MEAN CELL VOLUME 97.9 fL (80-100); MEAN CORPUSCULAR HEMOGLOBIN 29.3 pg (25-34); MEAN CORPUSCULAR HGB CONC 29.9 g/dl (32-36); MEAN PLATELET VOLUME 13.8 fL (7.4-10.4); MONO % 10.8 %; MONO ABS # 1.18 K/uL (0.11-0.59); NEUT % 65.3 %; NEUT ABS # 7.12 K/uL (1.4-6.5); PLATELET COUNT 170 K/uL (130-400); POTASSIUM 3.6 mmol/L (3.5-5.1); RED CELL DISTRIBUTION WIDTH CV 17.4 % (11.5-14.5); RED CELL DISTRIBUTION WIDTH SD 60.6 fL (36.4-46.3); SODIUM 145 mmol/L (136-145); WHITE BLOOD COUNT 10.89 K/uL (4.8-10.8)
== END ==
LOC: C.LABUPBEA 07:37
PROVIDERS: ATTEND Nurse Practitioner Family
DX: N18.9 Chronic kidney disease, unspecified (principal); R63.0 Anorexia

== ENCOUNTER → 2017-07-14 | Outpatient (CLI) | payer OTHER | LOC: C.LABUPBEA 08:44 | PROVIDERS: ATTEND Nurse Practitioner Family | DX: N39.0 Urinary tract infection, site not specified (principal) ==

== ENCOUNTER → 2017-07-17 | Outpatient (CLI) | payer OTHER ==
[2017-07-17 08:33] LABS: MEAN CORPUSCULAR HGB CONC 29.4 g/dl (32-36)
[2017-07-17 08:45] LABS: BLOOD UREA NITROGEN 45 mg/dl (7-18); CALCIUM 9.9 mg/dl (8.5-10.1); CARBON DIOXIDE 38 mmol/L (21-32); CREATININE 2.76 mg/dl (0.60-1.20); GLUCOSE 63 mg/dl (70-99); SODIUM 145 mmol/L (136-145)
[2017-07-17 09:16] LABS: HEMATOCRIT 41.5 % (37-47); HEMOGLOBIN 12.2 g/dL (12.0-16.0); MEAN CELL VOLUME 98.3 fL (80-100); MEAN CORPUSCULAR HEMOGLOBIN 28.9 pg (25-34); RED CELL DISTRIBUTION WIDTH CV 17.6 % (11.5-14.5); RED CELL DISTRIBUTION WIDTH SD 61.6 fL (36.4-46.3); WHITE BLOOD COUNT 12.21 K/uL (4.8-10.8)
[2017-07-17 09:26] LABS: BASO % 0.2 %; BASO ABS # 0.03 K/uL (0-0.2); EOS % 4.5 %; EOS ABS # 0.55 K/uL (0-0.5); IG# 0.05 K/uL (0.00-0.02); LYMPH % 17.2 %; MEAN PLATELET VOLUME 14.4 fL (7.4-10.4); MONO % 10.7 %; MONO ABS # 1.31 K/uL (0.11-0.59); NEUT ABS # 8.17 K/uL (1.4-6.5); PLATELET COUNT 149 K/uL (130-400)
== END ==
LOC: C.LABUPBEA 08:02
PROVIDERS: ATTEND Nurse Practitioner Family
DX: R60.1 Generalized edema (principal)

== ENCOUNTER → 2017-07-18 | Outpatient (CLI) | payer OTHER ==
[2017-07-18 10:41] LABS: BLOOD UREA NITROGEN 47 mg/dl (7-18); CALCIUM 9.2 mg/dl (8.5-10.1); CARBON DIOXIDE 36 mmol/L (21-32); CREATININE 2.77 mg/dl (0.60-1.20); GLUCOSE 152 mg/dl (70-99); SODIUM 140 mmol/L (136-145)
== END | disposition home or self-care (01) ==
LOC: C.LABUPBEA 09:03
PROVIDERS: ATTEND Nurse Practitioner Family
DX: E86.0 Dehydration (principal)

== ENCOUNTER → 2017-07-19 | Outpatient (CLI) | payer OTHER ==
[2017-07-19 09:25] LABS: BLOOD UREA NITROGEN 36 mg/dl (7-18); CALCIUM 9.1 mg/dl (8.5-10.1); CARBON DIOXIDE 39 mmol/L (21-32); CREATININE 2.08 mg/dl (0.60-1.20); GLUCOSE 57 mg/dl (70-99); POTASSIUM 3.8 mmol/L (3.5-5.1); SODIUM 144 mmol/L (136-145)
== END ==
LOC: C.LABUPBEA 08:55
PROVIDERS: ATTEND Nurse Practitioner Family
DX: E86.0 Dehydration (principal)

== ENCOUNTER → 2017-07-20 | Outpatient (CLI) | payer OTHER ==
[~2017-07-20] MED LIST changes: +CLON0.3D4 TD; +CRFL PO; +LSX20 PO; +METH10TA2 PO; +NYSP EXT; +PLV75 PO; +PRED-301 PO
== END ==
LOC: C.LABUPBEA 10:54
PROVIDERS: ATTEND Nurse Practitioner Family
DX: R30.0 Dysuria (principal)

== ENCOUNTER → 2017-07-20 | Outpatient (CLI) | payer OTHER ==
[~2017-07-20] MED LIST changes: -CLON0.3D4 TD; -CRFL PO; -LSX20 PO; -METH10TA2 PO; -NYSP EXT; -PLV75 PO; -PRED-301 PO
[2017-07-20 09:11] LABS: MEAN CORPUSCULAR HGB CONC 30.1 g/dl (32-36)
[2017-07-20 09:19] LABS: BLOOD UREA NITROGEN 30 mg/dl (7-18); CALCIUM 9.3 mg/dl (8.5-10.1); CARBON DIOXIDE 37 mmol/L (21-32); CREATININE 1.63 mg/dl (0.60-1.20); GLUCOSE 79 mg/dl (70-99); POTASSIUM 3.9 mmol/L (3.5-5.1); SODIUM 143 mmol/L (136-145)
[2017-07-20 09:21] LABS: HEMATOCRIT 37.5 % (37-47); HEMOGLOBIN 11.3 g/dL (12.0-16.0); MEAN CELL VOLUME 97.4 fL (80-100); MEAN CORPUSCULAR HEMOGLOBIN 29.4 pg (25-34); RED CELL DISTRIBUTION WIDTH CV 17.7 % (11.5-14.5); RED CELL DISTRIBUTION WIDTH SD 61.8 fL (36.4-46.3); WHITE BLOOD COUNT 10.48 K/uL (4.8-10.8)
[2017-07-20 09:32] LABS: MEAN PLATELET VOLUME 14.1 fL (7.4-10.4); PLATELET COUNT 134 K/uL (130-400)
== END ==
LOC: C.LABUPBEA 08:47
PROVIDERS: ATTEND Nurse Practitioner Family
DX: C81.90 Hodgkin lymphoma, unspecified, unspecified site (principal); E86.0 Dehydration

== ENCOUNTER → 2017-07-21 | Outpatient (CLI) | payer OTHER | END | disposition home or self-care (01) | LOC: C.LABUPBEA 08:21 | PROVIDERS: ATTEND Nurse Practitioner Family | DX: N39.0 Urinary tract infection, site not specified (principal) ==

== ENCOUNTER → 2017-07-24 | Outpatient (CLI) | payer OTHER ==
[2017-07-24 09:13] LABS: BLOOD UREA NITROGEN 28 mg/dl (7-18); CALCIUM 9.1 mg/dl (8.5-10.1); CARBON DIOXIDE 36 mmol/L (21-32); CREATININE 1.47 mg/dl (0.60-1.20); GLUCOSE 82 mg/dl (70-99); SODIUM 143 mmol/L (136-145)
[2017-07-24 09:25] LABS: HEMATOCRIT 33.2 % (37-47); HEMOGLOBIN 10.1 g/dL (12.0-16.0); MEAN CELL VOLUME 96.5 fL (80-100); MEAN CORPUSCULAR HEMOGLOBIN 29.4 pg (25-34); MEAN CORPUSCULAR HGB CONC 30.4 g/dl (32-36); RED CELL DISTRIBUTION WIDTH CV 17.7 % (11.5-14.5); RED CELL DISTRIBUTION WIDTH SD 61.9 fL (36.4-46.3); WHITE BLOOD COUNT 11.22 K/uL (4.8-10.8)
[2017-07-24 09:45] LABS: MEAN PLATELET VOLUME 12.3 fL (7.4-10.4); PLATELET COUNT 126 K/uL (130-400)
== END | disposition home or self-care (01) ==
LOC: C.LABUPBEA 08:50
PROVIDERS: ATTEND Nurse Practitioner Family
DX: D50.9 Iron deficiency anemia, unspecified (principal); E86.0 Dehydration

== ENCOUNTER → 2017-07-25 | Outpatient (CLI) | payer OTHER ==
[2017-07-25 09:50] LABS: BASO % 0.2 %; BASO ABS # 0.02 K/uL (0-0.2); EOS % 6.5 %; EOS ABS # 0.75 K/uL (0-0.5); HEMATOCRIT 35.3 % (37-47); HEMOGLOBIN 10.9 g/dL (12.0-16.0); IG# 0.05 K/uL (0.00-0.02); LYMPH ABS # 1.61 K/uL (1.2-3.4); MEAN CELL VOLUME 95.7 fL (80-100); MEAN CORPUSCULAR HEMOGLOBIN 29.5 pg (25-34); MEAN CORPUSCULAR HGB CONC 30.9 g/dl (32-36); MEAN PLATELET VOLUME 13.6 fL (7.4-10.4); MONO % 10.9 %; MONO ABS # 1.25 K/uL (0.11-0.59); PLATELET COUNT 156 K/uL (130-400); RED CELL DISTRIBUTION WIDTH CV 17.7 % (11.5-14.5); RED CELL DISTRIBUTION WIDTH SD 61.1 fL (36.4-46.3); WHITE BLOOD COUNT 11.48 K/uL (4.8-10.8)
[2017-07-25 10:01] LABS: BLOOD UREA NITROGEN 23 mg/dl (7-18); CALCIUM 9.6 mg/dl (8.5-10.1); CARBON DIOXIDE 34 mmol/L (21-32); CREATININE 1.18 mg/dl (0.60-1.20); GLUCOSE 91 mg/dl (70-99); POTASSIUM 4.1 mmol/L (3.5-5.1); SODIUM 141 mmol/L (136-145)
== END ==
LOC: C.LABUPBEA 09:17
PROVIDERS: ATTEND Nurse Practitioner Family
DX: D50.9 Iron deficiency anemia, unspecified (principal); C81.90 Hodgkin lymphoma, unspecified, unspecified site; E86.0 Dehydration

== ENCOUNTER → 2017-07-28 | Outpatient (CLI) | payer OTHER ==
[~2017-07-28] MED LIST changes: +CLON0.3D4 TD; +CRFL PO; +LSX20 PO; +METH10TA2 PO; +NYSP EXT; +PLV75 PO; +PRED-301 PO
[2017-07-28 07:53] LABS: BASO % 0.2 %; BASO ABS # 0.02 K/uL (0-0.2); EOS % 7.6 %; EOS ABS # 0.84 K/uL (0-0.5); HEMATOCRIT 36.9 % (37-47); HEMOGLOBIN 11.2 g/dL (12.0-16.0); IG# 0.04 K/uL (0.00-0.02); LYMPH % 15.5 %; LYMPH ABS # 1.71 K/uL (1.2-3.4); MEAN CELL VOLUME 96.9 fL (80-100); MEAN CORPUSCULAR HEMOGLOBIN 29.4 pg (25-34); MEAN CORPUSCULAR HGB CONC 30.4 g/dl (32-36); MEAN PLATELET VOLUME 12.7 fL (7.4-10.4); MONO % 10.5 %; MONO ABS # 1.16 K/uL (0.11-0.59); NEUT % 65.8 %; NEUT ABS # 7.25 K/uL (1.4-6.5); PLATELET COUNT 170 K/uL (130-400); RED CELL DISTRIBUTION WIDTH CV 17.8 % (11.5-14.5); RED CELL DISTRIBUTION WIDTH SD 62.4 fL (36.4-46.3); WHITE BLOOD COUNT 11.02 K/uL (4.8-10.8)
== END | disposition home or self-care (01) ==
LOC: C.LABUPBEA 07:44
PROVIDERS: ATTEND Nurse Practitioner Family
DX: D50.9 Iron deficiency anemia, unspecified (principal)

== ENCOUNTER → 2017-08-02 | Outpatient (CLI) | payer OTHER ==
[~2017-08-02] MED LIST changes: +ALBU1.257 NEB; -CLON0.3D4 TD; -CRFL PO; -LSX20 PO; -METH10TA2 PO; -NYSP EXT; +OSEL30CA PO; -PLV75 PO; -PRED-301 PO; +SALI1SPR3 NAE; +[UNRECOGNIZED DRUG - OTHER] TOP
== END ==
LOC: C.LABUPBEA 11:11
PROVIDERS: ATTEND Nurse Practitioner Family
DX: N39.0 Urinary tract infection, site not specified (principal)

== ENCOUNTER 2017-08-10 02:05 | Inpatient (IN) | payer OTHER ==
[2017-08-10] VITALS (8 sets, daily range): BP systolic 111–166; BP diastolic 77–115; PULSE 81–94; TEMP 36.4–37.5; O2SAT 91–96; BMI 19.3
[~2017-08-10] VITALS: Ht 162.6 cm; Wt 53.0 kg
[~2017-08-10 02:05] MED LIST changes: -ALBU1.257 NEB; -OSEL30CA PO; -SALI1SPR3 NAE; -[UNRECOGNIZED DRUG - OTHER] TOP
[2017-08-10] MEDS ORDERED: SODIUM CHLORIDE 0.9% 500ML 500 ML IV STA (03:15)
[2017-08-10 03:53] LABS: BASO % 0.2 %; BASO ABS # 0.03 K/uL (0-0.2); EOS % 1.8 %; EOS ABS # 0.24 K/uL (0-0.5); HEMATOCRIT 41.1 % (37-47); IG# 0.08 K/uL (0.00-0.02); LYMPH % 17.7 %; LYMPH ABS # 2.37 K/uL (1.2-3.4); MEAN CELL VOLUME 94.1 fL (80-100); MEAN CORPUSCULAR HEMOGLOBIN 29.7 pg (25-34); MEAN CORPUSCULAR HGB CONC 31.6 g/dl (32-36); MEAN PLATELET VOLUME 13.3 fL (7.4-10.4); MONO % 11.6 %; MONO ABS # 1.55 K/uL (0.11-0.59); NEUT % 68.1 %; NEUT ABS # 9.13 K/uL (1.4-6.5); PLATELET COUNT 182 K/uL (130-400); RED CELL DISTRIBUTION WIDTH CV 17.2 % (11.5-14.5); RED CELL DISTRIBUTION WIDTH SD 59.8 fL (36.4-46.3)
[2017-08-10 04:01] LABS: ALBUMIN 3.1 gm/dl (3.4-5.0); CALCIUM 9.3 mg/dl (8.5-10.1); CREATININE 3.09 mg/dl (0.60-1.20); POTASSIUM 4.3 mmol/L (3.5-5.1)
[2017-08-10] MEDS ORDERED: ALBU1.257 NEB (04:03)
[2017-08-10] MEDS ORDERED: OSEL30CA PO (04:05)
[2017-08-10] MEDS ORDERED: [UNRECOGNIZED DRUG - OTHER] TOP (04:07)
[2017-08-10] MEDS ORDERED: SALI1SPR3 NAE (04:07)
[2017-08-10 04:12] LABS: TOTAL PROTEIN 6.9 gm/dl (6.4-8.2)
[2017-08-10 04:27] LABS: INFLUENZA B ANTIGEN Neg for Influ B (NEG)
[2017-08-10] MEDS ORDERED: CEFTRIAXONE SOD INJ 1 GM ADDVIAL IV STA (05:39)
--- NOTE | 2017-08-10 06:29 | History and Physical ---
History & Physical Date & Time of Service: Aug 10, 2017 at 05:59 Chief Complaint: Possible Reaction To Tamiflu Primary Care Physician: Marti Vila History of Present Illness Source: patient 71 y/o F Hx HTN, HPL, hyperparathyroidism, CKD III, gout, diastolic CHF, 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 The pt resides at [facility] and had apparently developed rigors a few days ago. She was treated with Tamiflu empirically. She was reported to be somnolent this AM and was sent to the ER as a result. The pt is unable to provide any information at present and is difficult to wake up. She is afebrile on arrival to the ER. She is not exhibiting increased oxygen demands. initial labs are notable for ARF, leukocytosis (which may be chronic), hypoglycemia. A CXR is equivocal. Past Medical/Surgical History 1) Bronchiectasis - recurrent pneumonia 2) Severe osteoporosis 3) BL renal A stenosis 4) CKD III 5) HTN 6) HPL 7) Hyperparathyroidism 8) Vertebral compression fractures 9) Hodgkins lymphoma 10) COPD - dependent on 2-3 L 02 11) PUD 12) Gout 13) malnourished 14) Chronic pain with opiate dependence Surgical 1) Kyphoplasty 2) L renal artery stent Family History Heart disease Social History Smoking Status: Never Smoker Drug Use: none Marital Status: Housing status: [facility]ci Occupational Status: disabled Immunizations History of Influenza Vaccine: Yes Influenza Vaccine Date: Mar 01, 2013 History of Tetanus Vaccine?: Yes Tetanus Immunization Date: Dec 18, 2009 History of Pneumococcal: Yes Pneumococcal Date: Jun 01, 2012 History of Hepatitis B Vaccine: No Allergies Coded Allergies: Squash (Verified Allergy, Unknown, Zucchini, 08/10/17) Azithromycin (Verified Adverse Reaction, Unknown, nausea, 08/10/17) Levofloxacin (Verified Adverse Reaction, Unknown, nausea, 08/10/17) Home Medications Scheduled Albuterol Sulfate (Albuterol Sulfate), 1 VIAL NEB Q4 Allopurinol (Zyloprim), 100 MG PO BID Baclofen (Lioresal), 10 MG PO TID Calcitonin [place] (Calcitonin-[place]), 1 SPRAY ERIC QAM Carvedilol (Coreg), 25 MG PO BID Cholecalciferol (D-1000), 4,000 UNITS PO QAM Clopidogrel Bisulfate (Plavix), 75 MG PO QAM Duloxetine HCl (Cymbalta), 30 MG PO QAM Ferrous Sulfate (Kp Ferrous Sulfate), 325 MG PO BID Fluticasone Prop/Salmeterol (Advair Diskus 250/50 60 Dose), 1 PUFFS INH BID Fluticasone Propionate (Nasal) (Flonase Allergy Relief Ch), 1 SPRAY ERIC BID Furosemide (Lasix), 20 MG PO QAM Ipratropium-Albuterol (Combivent Respimat), 1 PUFFS INH QID Methadone HCl (Methadone HCl), 30 MG PO TID Mirtazapine (Remeron), 15 MG PO HS Multivitamin (Multivitamin), 1 TAB PO QAM Oseltamivir Phosphate (Tamiflu), 1 CAP PO DAILY Pantoprazole (Protonix), 40 MG PO BID Polyethylene Glycol 3350 (Miralax), 17 GM PO QAM Potassium Chloride (Micro-K Ext Rel), 10 MEQ PO QAM Prednisone (Prednisone), 2.5 MG PO QAM Saccharomyces Boulardii (Florastor), 1 CAP PO QAM Sennosides (Senokot), 8.6 MG PO QAM Sodium Chloride ([place] Saline Nasal), 1 APPLN ERIC BID Tiotropium [place] (Spiriva Handihaler), 1 CAP INH DAILY [breathe right strip], 1 APPLN TOP DAILY Scheduled PRN Acetaminophen (Tylenol), 650 MG PO Q6 PRN for Pain or Fever Epinephrine (Epipen), 0.3 MG IM UD PRN for ALLERGIC REACTION Melatonin (Melatonin Maximum Strengt), 5 MG PO HS PRN for Insomnia Ondasetron Odt (Zofran Odt), 4 MG SL Q6H PRN for Nausea Saline (Saline Nasal [place]), 2 SPRAYS ERIC Q8 PRN for Nasal Congestion Miscellaneous Medications Dextrose (Diabetic Use) (Insta-Glucose), 1 APPLN PO Glucagon (Glucagon Emergency Kit), 1 APPLN IM Sodium Chloride Flush (Normal Saline Flush), 10 ML IV Review of Systems Cannot obtain - rigors, possible fevers and somnolence reported Physical Exam Vital Signs Date Time Temp Pulse Resp B/P (MAP) Pulse Ox O2 Delivery O2 Flow Rate FiO2 08/10/17 04:26 64 18 100/74 95 Nasal Cannula 3.0 08/10/17 03:23 96 Nasal Cannula 3.0 08/10/17 03:05 76 16 91/72 96 Nasal Cannula 3.0 08/10/17 02:48 83 08/10/17 02:37 74 16 99/69 98 Nasal Cannula 4.0 08/10/17 02:19 78 08/10/17 02:16 37.2 83 16 172/100 94 Nasal Cannula 4.0 General Appearance: + pertinent finding ([place], elderly female in no acute distress - she is somnolent and difficult to wake up, can nod head to questioning) Head: normocephalic Eyes: normal inspection, EOMI ENT: normal ENT inspection, pharynx normal Neck: supple, no JVD Respiratory/Chest: chest non-tender, + pertinent finding (Limited exam due to poor effort - no clear crackles - poor air moveemnt) Cardiovascular: regular rate, rhythm, no edema, no gallop Abdomen/GI: normal bowel sounds, non tender, soft Back: normal inspection, no CVA tenderness Neurologic/Psych: + pertinent finding (Pt moves all extremities - cannot cooperate with full exam due to somnolence) Skin: normal color Diagnostics Laboratory Results Results Past 24 Hours Test 08/10/17 02:15 08/10/17 02:23 08/10/17 03:40 08/10/17 03:56 Range/Units White Blood Count 13.40 4.8-10.8 K/uL Red Blood Count 4.37 4.2-5.4 M/uL Hemoglobin 13.0 12.0-16.0 g/dL Hematocrit 41.1 37-47 % Mean Corpuscular Volume 94.1 80-100 fL Mean Corpuscular Hemoglobin 29.7 25-34 pg Mean Corpuscular Hemoglobin Concent 31.6 32-36 g/dl Platelet Count 182 130-400 K/uL Mean Platelet Volume 13.3 7.4-10.4 fL Neutrophils (%) (Auto) 68.1 % Lymphocytes (%) (Auto) 17.7 % Monocytes (%) (Auto) 11.6 % Eosinophils (%) (Auto) 1.8 % Basophils (%) (Auto) 0.2 % Neutrophils # (Auto) 9.13 1.4-6.5 K/uL Lymphocytes # (Auto) 2.37 1.2-3.4 K/uL Monocytes # (Auto) 1.55 0.11-0.59 K/uL Eosinophils # (Auto) 0.24 0-0.5 K/uL Basophils # (Auto) 0.03 0-0.2 K/uL RDW Standard Deviation 59.8 36.4-46.3 fL RDW Coefficient of Variation 17.2 11.5-14.5 % Immature Granulocyte % (Auto) 0.6 % Immature Granulocyte # (Auto) 0.08 0.00-0.02 K/uL Sodium Level 139 136-145 mmol/L Potassium Level 4.3 3.5-5.1 mmol/L Chloride Level 96 98-107 mmol/L Carbon Dioxide Level 37 21-32 mmol/L Anion Gap 6.0 3-11 mmol/L Blood Urea Nitrogen 36 7-18 mg/dl Creatinine 3.09 0.60-1.20 mg/dl Est Creatinine Clear Calc Drug Dose 13.8 ml/min Estimated GFR () 17.0 Estimated GFR (Non- 14.7 BUN/Creatinine Ratio 11.7 10-20 Random Glucose 68 70-99 mg/dl Calcium Level 9.3 8.5-10.1 mg/dl Magnesium Level 2.2 1.8-2.4 mg/dl Total Bilirubin 0.5 0.2-1 mg/dl Aspartate Amino Transf (AST/SGOT) 20 15-37 U/L Alanine Aminotransferase (ALT/SGPT) 15 12-78 U/L Alkaline Phosphatase 159 45-117 U/L Total Protein 6.9 6.4-8.2 gm/dl Albumin 3.1 3.4-5.0 gm/dl Globulin 3.8 2.5-4.0 gm/dl Albumin/Globulin Ratio 0.8 0.9-2 Thyroid Stimulating Hormone (TSH) 3.100 0.300-4.500 uIu/ml Bedside Lactic Acid Venous 0.97 0.90-1.70 mmol/L Urine Color DK YELLOW Urine Appearance CLEAR CLEAR Urine pH 6.5 4.5-7.5 Urine Specific [place] 1.016 1.000-1.030 Urine Protein NEG NEG Urine Glucose (UA) NEG NEG Urine Ketones NEG NEG Urine Occult Blood NEG NEG Urine Nitrite NEG NEG Urine Bilirubin NEG NEG Urine Urobilinogen NEG NEG Urine Leukocyte Esterase TRACE NEG Urine WBC (Auto) 1-5 0-5 /hpf Urine RBC (Auto) 0-4 0-4 /hpf Urine Hyaline Casts (Auto) 5-10 0-5 /lpf Urine Epithelial Cells (Auto) 0-5 0-5 /lpf Urine Bacteria (Auto) NEG NEG Influenza Type A Antigen Neg for Influ A NEG Influenza Type B Antigen Neg for Influ B NEG Test 08/10/17 05:00 Range/Units Troponin I < 0.015 0-0.045 ng/ml Microbiology Results 08/10/17 Blood Culture, Received Pending 08/10/17 Blood Culture, Received Pending Diagnostic Radiology CXR: poor inspiratory effort - no clear acute infiltrates Impression Assessment and Plan 71 y/o F Hx HTN, HPL, hyperparathyroidism, CKD III, gout, diastolic CHF, 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 The pt resides at [facility] and had apparently developed rigors a few days ago. She was treated with Tamiflu empirically. She was reported to be somnolent this AM and was sent to the ER as a result. The pt is unable to provide any information at present and is difficult to wake up. She is afebrile on arrival to the ER. She is not exhibiting increased oxygen demands. initial labs are notable for ARF, leukocytosis (which may be chronic), hypoglycemia. A CXR is equivocal. 1) Rigors - treated empirically with Tamiflu - rapid fle is negative - she is afebrile on arrival and leukocytosis may be chronic due to steroid use. In light of this, we will obtain a CT chest. If PNM is present, treatment for HCAP would be merited - we will cover empirically pending CT result. She will remain on 02 and receive scheduled duonebs. She is borderline hypotensive. A stress dose of steroids will be provided and should be continued if her BP does not improve with IVF as she is chronically on Prednisone. 2) AMS - may be related to infection - resp rate does not support opiate toxicity. We will check a TSH and ammonia level. Uremia does not appear severe enough to cause AMS. 3) ARF - acute on chronic failure - IVF provided - BMP will be trended - prerenal failure is likely 4) COPD - no evidence of acute exacerbation - cont Nebs, 02, steroids 5) Hyperparathyroidism - cont calcitonin 6) Opiate dependence - hold Methadone for somnolence 7) Gout - Allopurinol held due to ARF - she is receiving steroids regardless 8) Malnourished - nutritional supplements provided. 9) HTN - Carvedilol provided with parameters - additional meds held 10) Diastolic CHF - monitor volume status as she is receiving IVF Full code - Heparin prophylaxis Total time for this admit including review of labs, meds, imaging, records, labs - discussion with pt and ER attending - 47 min Resuscitation Status VTE Prophylaxis Will order VTE Prophylaxis: Yes
[2017-08-10] MEDS ORDERED: PIPERACILL/TAZOBAC CONSULT ACTIVE PRN ×2 (06:30→10:00)
[2017-08-10] MEDS ORDERED: VANCOMYCIN CONSULT ACTIVE PRN (06:30)
--- NOTE | 2017-08-10 06:36 | DIAGNOSTIC IMAGING REPORT ---
CT OF THE HEAD WITHOUT CONTRAST CLINICAL HISTORY: Altered mental status. COMPARISON STUDY: Head CT October 04, 2016. CT DOSE: 614.27 mGy.cm TECHNIQUE: Helical axial images of the head were obtained without IV contrast. Automated exposure control was utilized for the study. A dose lowering technique was utilized adhering to the principles of ALARA. FINDINGS: No acute intracranial hemorrhage, midline shift or mass effect is present. Ventricular system is stable. Basilar cisterns are patent. No extra-axial collections are present. There are no findings to suggest acute dural sinus thrombosis or acute territorial infarct. Minimal white matter hypodensity suggests small vessel disease. There are no significant calvarial abnormalities. Mastoid air cells are clear. There is mild sinus mucosal thickening. IMPRESSION: No acute intracranial findings. Electronically signed by: Lewis Guzmán M.D. 08/10/2017 6:34 AM Dictated Date/Time: 08/10/2017 6:32 AM
[2017-08-10] MEDS ORDERED: MAGNESIUM HYDROXIDE SUSP 30 ML UDC PO PRN (06:45)
[2017-08-10] MEDS ORDERED: ACETAMINOPHEN 325 MG TAB PO PRN (06:45)
[2017-08-10] MEDS ORDERED: ALUMINUM/MAGNESIUM/SIMETH (MAALOX MAX) 30 ML UDC PO PRN (06:45)
[2017-08-10] MEDS ORDERED: POLYETHYLENE (MIRALAX) 17 GM PACK PO PRN (06:45)
[2017-08-10] MEDS ORDERED: ONDANSETRON INJ 2 MG/ML 2 ML VIAL IV PRN (06:45)
--- NOTE | 2017-08-10 06:45 | DIAGNOSTIC IMAGING REPORT ---
(CHEST) THORAX WITHOUT CT DOSE: 223.96 mGy.cm HISTORY: Pneumonia pneumonia - bronchiectasis TECHNIQUE: Multiaxial CT images of the chest were performed without contrast. A dose lowering technique was utilized adhering to the principles of ALARA. COMPARISON: 07/22/2016 FINDINGS: Mild stable cardia megaly. Tortuosity and ectasia thoracic aorta. Bilateral upper lobe infiltrative change. Scattered lower lobe infiltrative pockets. Findings consistent with multiple old left-sided rib fractures. Prior kyphoplasty is which have been described previously. Bilateral renal atrophy. IMPRESSION: 1. Scattered bilateral infiltrative changes most prominent in the upper lobe regions. 2. Bibasilar atelectatic change. 3. Mild stable cardia megaly. 4. Multiple old left-sided rib fractures with operative changes to the left humerus and thoracolumbar lumbar spine The above report was generated using voice recognition software. It may contain grammatical, syntax or spelling errors. Electronically signed by: Klever June M.D. 08/10/2017 6:44 AM Dictated Date/Time: 08/10/2017 6:41 AM
[2017-08-10] MEDS ORDERED: VANCOMYCIN IV 1,000 MG in SODIUM CHLORIDE 0.9% 250ML 250 ML IV ONE (07:00)
[2017-08-10] MEDS ORDERED: PIPERACILL/TAZOBAC IV 3.375 GM in DEXTROSE 5% 100ML 100 ML IV ONE (07:00)
--- NOTE | 2017-08-10 07:04 | EMERGENCY ROOM VISIT NOTE ---
History First contact with patient: 03:06 Chief Complaint: OTHER COMPLAINT Stated Complaint: POSSIBLE REACTION TO TAMIFLU History of Present Illness The patient is a 71 year old female who presents to the Emergency Room with complaints of altered mental status and possible reaction to Tamiflu. The patient resides at [facility], and evidently had vague flulike symptoms. She was started on Tamiflu, and has had shaking rigors tonight. The patient is not reporting pain or injury. She has a history significant for CHF and COPD. She uses oxygen 2 L at all times. She has not had increased use of her oxygen. There is no report of distinct fever. No other new medications. The [facility] indicated the patient was with a lower than normal blood pressure. History is somewhat limited as the patient is sedated/somnolent. She will answer short questions verbally and with nodding of her head. Review of Systems More than 10 systems were reviewed and otherwise negative with the exception of history of present illness. Past Medical/Surgical History Medical Problems: (1) Acute respiratory failure with hypoxia (2) Altered mental status (3) Ambulatory dysfunction (4) Cholelithiases (5) Chronic kidney disease (CKD) stage G3a/A1, moderately decreased glomerular filtration rate (GFR) between 45-59 mL/min/1.73 square meter and albuminuria creatinine ratio less than 30 mg/g (6) Chronic Kidney Disease, Stage Iii (Moderate) (7) Compression fracture of fourth lumbar vertebra (8) COPD (chronic obstructive pulmonary disease) (9) Crystal arthritis (10) Duodenal bulb ulcer (11) DVT (deep venous thrombosis) (12) Fecal impaction of colon (13) Fever (14) Fracture of right olecranon process (15) Gout (16) Gout attack (17) Headache (18) Hodgkins lymphoma (19) Humerus fracture (20) Hyperlipidemia Nec/Nos (21) Hypertension (22) Hypertension (23) Hypertensive urgency (24) Intractable pain (25) Knee pain (26) Left renal artery stenosis (27) Lethargy (28) Leukocytosis (29) Lower extremity edema (30) Lumbar compression fracture (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, 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, with chronic kidney disease (32) Mucus plugging of bronchi (33) Narcotic withdrawal (34) Opiate use (35) Opioid dependence (36) Osteoporosis (37) Perforated duodenal ulcer (38) PNA (pneumonia) (39) Pneumonia (40) Renal artery stenosis (41) right hand cellulitis (42) Right renal artery stenosis (43) Rigors (44) Secondary hyperparathyroidism (45) Sepsis secondary to UTI (46) Thrush, oral (47) UTI (urinary tract infection) (48) Wedge compression fracture of T11 vertebra Surgical Problems: (1) History of kyphoplasty (2) left renal artery stent placement Family History Heart disease Social History Smoking Status: Never Smoker Alcohol Use: none Drug Use: none Marital Status: Housing Status: lives with family Occupation Status: disabled Current/Historical Medications Scheduled Albuterol Sulfate (Albuterol Sulfate), 1 VIAL NEB Q4 Allopurinol (Zyloprim), 100 MG PO BID Baclofen (Lioresal), 10 MG PO TID Calcitonin [place] (Calcitonin-[place]), 1 SPRAY ERIC QAM Carvedilol (Coreg), 25 MG PO BID Cholecalciferol (D-1000), 4,000 UNITS PO QAM Clopidogrel Bisulfate (Plavix), 75 MG PO QAM Duloxetine HCl (Cymbalta), 30 MG PO QAM Ferrous Sulfate (Kp Ferrous Sulfate), 325 MG PO BID Fluticasone Prop/Salmeterol (Advair Diskus 250/50 60 Dose), 1 PUFFS INH BID Fluticasone Propionate (Nasal) (Flonase Allergy Relief Ch), 1 SPRAY ERIC BID Furosemide (Lasix), 20 MG PO QAM Ipratropium-Albuterol (Combivent Respimat), 1 PUFFS INH QID Methadone HCl (Methadone HCl), 30 MG PO TID Mirtazapine (Remeron), 15 MG PO HS Multivitamin (Multivitamin), 1 TAB PO QAM Oseltamivir Phosphate (Tamiflu), 1 CAP PO DAILY Pantoprazole (Protonix), 40 MG PO BID Polyethylene Glycol 3350 (Miralax), 17 GM PO QAM Potassium Chloride (Micro-K Ext Rel), 10 MEQ PO QAM Prednisone (Prednisone), 2.5 MG PO QAM Saccharomyces Boulardii (Florastor), 1 CAP PO QAM Sennosides (Senokot), 8.6 MG PO QAM Sodium Chloride (Breeding Saline Nasal), 1 APPLN ERIC BID Tiotropium [place] (Spiriva [place]), 1 CAP INH DAILY [breathe right strip], 1 APPLN TOP DAILY Scheduled PRN Acetaminophen (Tylenol), 650 MG PO Q6 PRN for Pain or Fever Epinephrine (Epipen), 0.3 MG IM UD PRN for ALLERGIC REACTION Melatonin (Melatonin Maximum Strengt), 5 MG PO HS PRN for Insomnia Ondasetron Odt (Zofran Odt), 4 MG SL Q6H PRN for Nausea Saline (Saline Nasal [place]), 2 SPRAYS ERIC Q8 PRN for Nasal Congestion Miscellaneous Medications Dextrose (Diabetic Use) (Insta-Glucose), 1 APPLN PO Glucagon (Glucagon Emergency Kit), 1 APPLN IM Sodium Chloride Flush (Normal Saline Flush), 10 ML IV Physical Exam Vital Signs Date Time Temp Pulse Resp B/P (MAP) Pulse Ox O2 Delivery O2 Flow Rate FiO2 08/10/17 06:23 74 28 167/90 96 Nasal Cannula 3.0 08/10/17 06:07 68 08/10/17 05:27 60 16 91/59 100 Room Air 08/10/17 04:26 64 18 100/74 95 Nasal Cannula 3.0 08/10/17 03:23 96 Nasal Cannula 3.0 08/10/17 03:05 76 16 91/72 96 Nasal Cannula 3.0 08/10/17 02:48 83 08/10/17 02:37 74 16 99/69 98 Nasal Cannula 4.0 08/10/17 02:19 78 08/10/17 02:16 37.2 83 16 172/100 94 Nasal Cannula 4.0 Physical Exam VITALS: Vitals are noted on the nurse's note and reviewed by myself. Vital signs stable. GENERAL: Chronically ill-appearing malnourished female in no acute distress. She is sleeping, but arousable. She answers short questions. HEART: Regular rate and rhythm without noted murmur LUNGS: Scattered crackles throughout with poor inspiratory effort ABDOMEN: Positive normal bowel sounds x 4. Soft, nontender, without masses or organomegaly. No guarding or rebound tenderness. MUSCULOSKELETAL: No muscle atrophy, erythema, or edema noted. Medical Decision & Procedures ER Provider Diagnostic Interpretation: CT OF THE HEAD WITHOUT CONTRAST CLINICAL HISTORY: Altered mental status. COMPARISON STUDY: Head CT October 04, 2016. CT DOSE: 614.27 mGy.cm TECHNIQUE: Helical axial images of the head were obtained without IV contrast. Automated exposure control was utilized for the study. A dose lowering technique was utilized adhering to the principles of ALARA. FINDINGS: No acute intracranial hemorrhage, midline shift or mass effect is present. Ventricular system is stable. Basilar cisterns are patent. No extra-axial collections are present. There are no findings to suggest acute dural sinus thrombosis or acute territorial infarct. Minimal white matter hypodensity suggests small vessel disease. There are no significant calvarial abnormalities. Mastoid air cells are clear. There is mild sinus mucosal thickening. IMPRESSION: No acute intracranial findings. Laboratory Results 08/10/17 02:15 Red Blood Count 4.37, Mean Corpuscular Volume 94.1, Mean Corpuscular Hemoglobin 29.7, Mean Corpuscular Hemoglobin Concent 31.6, Mean Platelet Volume 13.3, Neutrophils (%) (Auto) 68.1, Lymphocytes (%) (Auto) 17.7, Monocytes (%) (Auto) 11.6, Eosinophils (%) (Auto) 1.8, Basophils (%) (Auto) 0.2, Neutrophils # (Auto ) 9.13, Lymphocytes # (Auto) 2.37, Monocytes # (Auto) 1.55, Eosinophils # (Auto ) 0.24, Basophils # (Auto) 0.03 08/10/17 02:15 Test 08/10/17 02:15 08/10/17 02:23 08/10/17 03:40 08/10/17 03:56 White Blood Count 13.40 K/uL (4.8-10.8) Red Blood Count 4.37 M/uL (4.2-5.4) Hemoglobin 13.0 g/dL (12.0-16.0) Hematocrit 41.1 % (37-47) Mean Corpuscular Volume 94.1 fL (80-100) Mean Corpuscular Hemoglobin 29.7 pg (25-34) Mean Corpuscular Hemoglobin Concent 31.6 g/dl (32-36) Platelet Count 182 K/uL (130-400) Mean Platelet Volume 13.3 fL (7.4-10.4) Neutrophils (%) (Auto) 68.1 % Lymphocytes (%) (Auto) 17.7 % Monocytes (%) (Auto) 11.6 % Eosinophils (%) (Auto) 1.8 % Basophils (%) (Auto) 0.2 % Neutrophils # (Auto) 9.13 K/uL (1.4-6.5) Lymphocytes # (Auto) 2.37 K/uL (1.2-3.4) Monocytes # (Auto) 1.55 K/uL (0.11-0.59) Eosinophils # (Auto) 0.24 K/uL (0-0.5) Basophils # (Auto) 0.03 K/uL (0-0.2) RDW Standard Deviation 59.8 fL (36.4-46.3) RDW Coefficient of Variation 17.2 % (11.5-14.5) Immature Granulocyte % (Auto) 0.6 % Immature Granulocyte # (Auto) 0.08 K/uL (0.00-0.02) Anion Gap 6.0 mmol/L (3-11) Est Creatinine Clear Calc Drug Dose 13.8 ml/min Estimated GFR () 17.0 Estimated GFR (Non- 14.7 BUN/Creatinine Ratio 11.7 (10-20) Calcium Level 9.3 mg/dl (8.5-10.1) Magnesium Level 2.2 mg/dl (1.8-2.4) Total Bilirubin 0.5 mg/dl (0.2-1) Aspartate Amino Transf (AST/SGOT) 20 U/L (15-37) Alanine Aminotransferase (ALT/SGPT) 15 U/L (12-78) Alkaline Phosphatase 159 U/L (45-117) Total Protein 6.9 gm/dl (6.4-8.2) Albumin 3.1 gm/dl (3.4-5.0) Globulin 3.8 gm/dl (2.5-4.0) Albumin/Globulin Ratio 0.8 (0.9-2) Thyroid Stimulating Hormone (TSH) 3.100 uIu/ml (0.300-4.500) Bedside Lactic Acid Venous 0.97 mmol/L (0.90-1.70) Urine Color DK YELLOW Urine Appearance CLEAR (CLEAR) Urine pH 6.5 (4.5-7.5) Urine Specific [place] 1.016 (1.000-1.030) Urine Protein NEG (NEG) Urine Glucose (UA) NEG (NEG) Urine Ketones NEG (NEG) Urine Occult Blood NEG (NEG) Urine Nitrite NEG (NEG) Urine Bilirubin NEG (NEG) Urine Urobilinogen NEG (NEG) Urine Leukocyte Esterase TRACE (NEG) Urine WBC (Auto) 1-5 /hpf (0-5) Urine RBC (Auto) 0-4 /hpf (0-4) Urine Hyaline Casts (Auto) 5-10 /lpf (0-5) Urine Epithelial Cells (Auto) 0-5 /lpf (0-5) Urine Bacteria (Auto) NEG (NEG) Influenza Type A Antigen Neg for Influ A (NEG) Influenza Type B Antigen Neg for Influ B (NEG) Test 08/10/17 05:00 08/10/17 06:41 Troponin I < 0.015 ng/ml (0-0.045) Medications Administered Medications (Trade) Dose Ordered Sig/Estephania Route Start Time Stop Time Status Last Admin Dose Admin Sodium Chloride 500 ml @ 999 mls/hr Q31M STAT IV 08/10/17 03:15 08/10/17 03:45 DC 08/10/17 03:15 999 MLS/HR Ceftriaxone Sodium (Rocephin Inj) 1 gm NOW STAT IV 08/10/17 05:39 08/10/17 05:41 DC 08/10/17 05:46 1 GM ED Course Physical exam and history were performed. Nursing notes, EMR, and Medication List were personally reviewed. Patient appears to have altered mental status and possible reaction to Tamiflu. The patient has multiple chronic diseases, and does reside at a [facility]. IV access was established and labs were obtained. CT scan was performed. The patient was gently hydrated with normal saline. The patient blood work is as above and was reviewed. She does have an elevated white blood cell count of 13,000. I am unsure if this is acute or chronic. She is very minimally hypoglycemic. She does have a creatinine that is greater than 3.0, which appears to be a distinct increase from her baseline. The patient's chest x-ray was reviewed by myself and my attending, and is concerning for possible pneumonia. Because of that she was started on Rocephin empirically. CT scan of the head was without acute findings. The patient continued to remain somnolent here in the department. I discussed the case with my attending physician, who remain closely involved in care decision-making. Ultimately we discussed the case with the on-call hospitalist , who agreed to evaluate the patient here in the department. Please see their dictation for further patient course, plan, and disposition. The chart was completed utilizing [employer] Speech Voice Recognition Software. Grammatical errors, random word insertions, pronoun errors, and incomplete sentences are an occasional consequence of this system due to software limitations, ambient noise, and hardware issues. Any formal questions or concerns about the content, text, or information contained within the body of this dictation should be directly addressed to the provider for clarification. . Medical Decision Differential diagnosis: Etiologies such as sepsis, UTI, pneumonia, metabolic, electrolyte abnormalities , cardiac sources, intracerebral event, toxicologic, neurologic, as well as others were entertained. Impression Primary Impression: Altered mental status Additional Impressions: PNA (pneumonia) Acute kidney injury superimposed on chronic kidney disease Departure Information Referrals Marti Vila (PCP) Patient Instructions Replaced By [facility] Problem Qualifiers
--- NOTE | 2017-08-10 07:10 | DIAGNOSTIC IMAGING REPORT ---
CHEST ONE VIEW PORTABLE CLINICAL HISTORY: altered mental status dyspnea COMPARISON STUDY: 05/09/2017 FINDINGS: Multiple old left-sided rib fractures. Bibasilar atelectatic and/or infiltrative change. No evidence pneumothorax. Central catheters. Vena cava within the right atrium. IMPRESSION: Mild bibasilar parenchymal infiltrates. The above report was generated using voice recognition software. It may contain grammatical, syntax or spelling errors. Electronically signed by: Klever June M.D. 08/10/2017 7:09 AM Dictated Date/Time: 08/10/2017 7:08 AM
[2017-08-10] MEDS ORDERED: ALBUTEROL SULFATE NEB SCH (08:00)
[2017-08-10] MEDS ORDERED: D5W AND NSS 1,000 ML IV SCH (08:30)
[2017-08-10] MEDS ORDERED: TIOTROPIUM BROMIDE 5 PUFF/90 MCG INH INH SCH (09:00)
[2017-08-10] MEDS ORDERED: IPRATROPIUM BROMIDE/ALBUTEROL respimat INH INH SCH (09:00)
[2017-08-10] MEDS: ALBUT/IPRATROP 3MG/0.5MG NEB 3 ML VIAL INH SCH ×3 (09:00→19:07)
--- NOTE | 2017-08-10 10:06 | Hospitalist Progress Note ---
Hospitalist Progress Note Date of Service Aug 10, 2017. (Fernanda Stark PA-C) Subjective Pt evaluation today including: physical exam, chart review, lab review, review of studies, review of inpatient medication list Patient seen and evaluated. Admitted early this AM for AMS and rigors. CT appears she may have aspirated. Currently sleeping and not really awakening for ROS. No acute respiratory distress. Mildly course in R upper lung campuzano but cannot participate in exam. Additional Comments: ROS not obtained due to being somnolent. (Fernanda Stark PA-C) Medications Current Inpatient Medications Medications (Trade) Dose Ordered Sig/Estephania Route Start Time Stop Time Status Last Admin Dose Admin Baclofen (Lioresal Tab) 10 mg TID PO 08/10/17 09:00 09/09/17 08:59 Calcitonin [place] (Fortical Nasal [place]) 1 spray QAM ERIC 08/10/17 09:00 09/09/17 08:59 Carvedilol (Coreg Tab) 25 mg BID PO 08/10/17 09:00 09/09/17 08:59 Cholecalciferol (Vitamin D Tab) 4,000 inter.unit QAM PO 08/10/17 09:00 09/09/17 08:59 Clopidogrel Bisulfate (plAVix TAB) 75 mg QAM PO 08/10/17 09:00 09/09/17 08:59 Duloxetine HCl (Cymbalta Cap) 30 mg QAM PO 08/10/17 09:00 09/09/17 08:59 Salmeterol Xinafoate/ Fluticasone (Advair Diskus 250/50 Inh) 1 puff BID INH 08/10/17 09:00 09/09/17 08:59 Methadone HCl (Dolophine Tab) 30 mg TID PO 08/10/17 09:00 08/24/17 08:59 Mirtazapine (Remeron Tab) 15 mg HS PO 08/10/17 21:00 09/09/17 20:59 Pantoprazole Sodium (Protonix Tab) 40 mg BID PO 08/10/17 09:00 09/09/17 08:59 Senna (Senokot Tab) 8.6 mg QAM PO 08/10/17 09:00 09/09/17 08:59 Tiotropium [place] (Spiriva Handihaler Inhaler) 30 puff DAILY INH 08/10/17 09:00 09/09/17 08:59 Polyethylene (Miralax Powder Packet) 17 gm QAM PO 08/10/17 09:00 09/09/17 08:59 Sodium Chloride ([place] Saline Nasal Gel) 1 appln BID NA 08/10/17 09:00 09/09/17 08:59 Miscellaneous Information (Consult) 1 ea UD PRN N/A 08/10/17 06:30 09/09/17 06:29 Miscellaneous Information (Consult) 1 ea UD PRN N/A 08/10/17 06:30 09/09/17 06:29 Methylprednisolone Sodium Succinate 40 mg/Syringe 0.64 ml @ 1.5 mls/min Q8 IV 08/10/17 08:30 09/09/17 08:29 Albuterol/ Ipratropium (Duoneb) 3 ml Q6R INH 08/10/17 09:00 09/09/17 08:59 Albuterol Sulfate (Ventolin 0.083% 2.5MG/3ML Neb) 2.5 mg Q4H PRN INH 08/10/17 06:45 09/09/17 06:44 Dextrose/Sodium Chloride 1,000 ml @ 125 mls/hr Q8H IV 08/10/17 08:30 08/11/17 00:29 Heparin Sodium (Porcine) (Heparin Sq 5000 Unit/0.5ml) 5,000 unit Q12 SQ 08/10/17 09:00 09/09/17 08:59 Acetaminophen (Tylenol Tab) 650 mg Q4H PRN PO 08/10/17 06:45 09/09/17 06:44 Al Hydrox/Mg Hydrox/Simethicone (Maalox Max Susp) 15 ml Q4H PRN PO 08/10/17 06:45 09/09/17 06:44 Magnesium Hydroxide (Milk Of Magnesia Susp) 30 ml Q12H PRN PO 08/10/17 06:45 09/09/17 06:44 Ondansetron HCl (Zofran Inj) 4 mg Q6H PRN IV 08/10/17 06:45 09/09/17 06:44 Polyethylene (Miralax Powder Packet) 17 gm DAILY PRN PO 08/10/17 06:45 09/09/17 06:44 (Fernanda Stark PA-C) Objective Vital Signs Date Time Temp Pulse Resp B/P (MAP) Pulse Ox O2 Delivery O2 Flow Rate FiO2 08/10/17 07:08 70 20 161/91 96 Nasal Cannula 3.0 08/10/17 06:23 74 28 167/90 96 Nasal Cannula 3.0 08/10/17 06:07 68 08/10/17 05:27 60 16 91/59 100 Room Air 08/10/17 04:26 64 18 100/74 95 Nasal Cannula 3.0 08/10/17 03:23 96 Nasal Cannula 3.0 08/10/17 03:05 76 16 91/72 96 Nasal Cannula 3.0 08/10/17 02:48 83 08/10/17 02:37 74 16 99/69 98 Nasal Cannula 4.0 08/10/17 02:19 78 08/10/17 02:16 37.2 83 16 172/100 94 Nasal Cannula 4.0 (Fernanda Stark PA-C) Physical Exam General Appearance: WD/WN, no apparent distress Neck: supple, no JVD, trachea midline Respiratory/Chest: no respiratory distress, no accessory muscle use, + pertinent finding (course breath sounds in R upper lung campuzano anteriorly - cannot participate in examination) Cardiovascular: regular rate, rhythm, no gallop, no murmur Abdomen: normal bowel sounds, non tender, soft Extremities: no pedal edema Neurologic/Psychiatric: + pertinent finding (somnolent) Skin: normal color, warm/dry (Fernanda Stark PA-C) Laboratory Results Last 24 Hours Test 08/10/17 02:15 08/10/17 02:23 08/10/17 03:40 08/10/17 03:56 White Blood Count 13.40 K/uL Red Blood Count 4.37 M/uL Hemoglobin 13.0 g/dL Hematocrit 41.1 % Mean Corpuscular Volume 94.1 fL Mean Corpuscular Hemoglobin 29.7 pg Mean Corpuscular Hemoglobin Concent 31.6 g/dl Platelet Count 182 K/uL Mean Platelet Volume 13.3 fL Neutrophils (%) (Auto) 68.1 % Lymphocytes (%) (Auto) 17.7 % Monocytes (%) (Auto) 11.6 % Eosinophils (%) (Auto) 1.8 % Basophils (%) (Auto) 0.2 % Neutrophils # (Auto) 9.13 K/uL Lymphocytes # (Auto) 2.37 K/uL Monocytes # (Auto) 1.55 K/uL Eosinophils # (Auto) 0.24 K/uL Basophils # (Auto) 0.03 K/uL RDW Standard Deviation 59.8 fL RDW Coefficient of Variation 17.2 % Immature Granulocyte % (Auto) 0.6 % Immature Granulocyte # (Auto) 0.08 K/uL Prothrombin Time 10.7 SECONDS Prothromb Time International Ratio 1.0 Activated Partial Thromboplast Time 26.0 SECONDS Partial Thromboplastin Ratio 1.0 Sodium Level 139 mmol/L Potassium Level 4.3 mmol/L Chloride Level 96 mmol/L Carbon Dioxide Level 37 mmol/L Anion Gap 6.0 mmol/L Blood Urea Nitrogen 36 mg/dl Creatinine 3.09 mg/dl Est Creatinine Clear Calc Drug Dose 13.8 ml/min Estimated GFR () 17.0 Estimated GFR (Non- 14.7 BUN/Creatinine Ratio 11.7 Random Glucose 68 mg/dl Calcium Level 9.3 mg/dl Magnesium Level 2.2 mg/dl Total Bilirubin 0.5 mg/dl Aspartate Amino Transf (AST/SGOT) 20 U/L Alanine Aminotransferase (ALT/SGPT) 15 U/L Alkaline Phosphatase 159 U/L Total Protein 6.9 gm/dl Albumin 3.1 gm/dl Globulin 3.8 gm/dl Albumin/Globulin Ratio 0.8 Thyroid Stimulating Hormone (TSH) 3.100 uIu/ml Bedside Lactic Acid Venous 0.97 mmol/L Urine Color DK YELLOW Urine Appearance CLEAR Urine pH 6.5 Urine Specific [place] 1.016 Urine Protein NEG Urine Glucose (UA) NEG Urine Ketones NEG Urine Occult Blood NEG Urine Nitrite NEG Urine Bilirubin NEG Urine Urobilinogen NEG Urine Leukocyte Esterase TRACE Urine WBC (Auto) 1-5 /hpf Urine RBC (Auto) 0-4 /hpf Urine Hyaline Casts (Auto) 5-10 /lpf Urine Epithelial Cells (Auto) 0-5 /lpf Urine Bacteria (Auto) NEG Influenza Type A Antigen Neg for Influ A Influenza Type B Antigen Neg for Influ B Test 08/10/17 05:00 08/10/17 06:59 Troponin I < 0.015 ng/ml Ammonia < 10.0 umol/L (Fernanda Stark VANC) Assessment and Plan 71 y/o F Hx HTN, HPL, hyperparathyroidism, CKD III, gout, diastolic CHF, 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 The pt resides at [facility] and had apparently developed rigors a few days ago. She was treated with Tamiflu empirically. She was reported to be somnolent this AM and was sent to the ER as a result. The pt is unable to provide any information at present and is difficult to wake up. She is afebrile on arrival to the ER. She is not exhibiting increased oxygen demands. initial labs are notable for ARF, leukocytosis (which may be chronic), hypoglycemia. A CXR is equivocal. Metabolic Encephalopathy 2/2 Possible Aspiration Pneumonia and DIONI/Dehydration: - Monitor to monitor mentation with treatment of causes - will hold food and medications until more awake to prevent aspiration Rigors and Possible Aspiration Pneumonia: - Was treated with Tamiflu at [facility] - fluid swab negative - CT showing multiple infiltrative findings in upper lobes b/l - Due to chronic steroids and initially low BPs - continue stress dose steroids of Methylprednisolone 40 mg IV Q8H and will adjust - Zosyn and Vanc at this time DIONI on CKD Stage III: Baseline 1.0-1.9 - Very labile on laboratories but significantly higher then baseline - likely pre-renal and will monitor with hydration - Continue D5W + NSS at 125 mL/hr and monitor - continue BMPs COPD without Exacerbation: - Continue duonebs; Advair BID; Spiriva daily HTN: - Coreg 25 mg BID Chronic Diastolic CHF: - Appears hypovolemic at this time but will monitor with IVF Hyperparathyroidism: - Calcitonin daily Chronic Pain with Opiate Dependence: - Possible cause of somnolence? - Baclofen 10 mg TID, Methadone 30 mg TID Gout: - Allopurinol held 2/2 DIONI Protein-Calorie Malnutrition: DVT Prophylaxis: Heparin 5000 units SC Q12H Disposition: From [facility] Continued [facility] stay due to: multiple IV medications needed Discharge planning: [facility] facility (Fernanda Stark PA-C) Attending Attestation - Pt seen/examined, chart reviewed, care plan d/w AIRAM Stark. I agree w/ the sanches components of her documentation. Pt lethargic/obtunded during the stay. when I called her name her eyes fluttered but no purposeful movement. VSS gen - obtunded/lethargic mouth - MM severely dry neck - no JVD heart - RRR lungs - course BS b/l abd - soft, no apparent tenderness ext - no edema A/P: 1. sepsis 2nd to pneumonia, cannot exclude aspiration 2. acute renal failure 2nd to #1 3. chronic hypoxic resp failure 2nd to COPD 4. metabolic encephalopathy 2nd to #1 5. hypoglycemia - on dextrose containing fluids and stress-dose steroids 6. steroid-dependent COPD check flu PCR fluids serial BMPs Byron NANCE MD (Juan Nance MD)
[2017-08-10] MEDS: METHYLPREDNISOLONE IV 40 MG in SYRINGE 0 ML IV SCH ×3 (10:15→21:49)
[2017-08-10 10:57] LABS: CALCIUM 9.1 mg/dl (8.5-10.1); CREATININE 2.92 mg/dl (0.60-1.20); POTASSIUM 4.1 mmol/L (3.5-5.1)
[2017-08-10] MEDS ORDERED: DEXTROSE 50% 50 ML SYR IV ONE (11:15)
[2017-08-10] MEDS: HEPARIN SOD 5000 UNIT/0.5 ML CARP SQ SCH ×2 (11:31→21:36)
--- NOTE | 2017-08-10 11:57 | Pharmacy Progress Note ---
Pharmacy Antibiotic Consult Date of Service: Aug 10, 2017. Pharmacy Dosing Scope Pharmacy is consulted to initiate VANCOMYCIN / ZOSYN IV dosing therapy, order appropriate labs and adjust drug dose/frequency. Subjective The patient is a 71 year old female admitted on Aug 10, 2017 at 06:38. Objective Height (Feet): 5 Height (Inches): 4.00 Weight (Kilograms): 51.000 Lab Results (24hrs): Test 08/10/17 02:15 08/10/17 02:23 08/10/17 03:40 08/10/17 03:56 White Blood Count 13.40 K/uL (4.8-10.8) Red Blood Count 4.37 M/uL (4.2-5.4) Hemoglobin 13.0 g/dL (12.0-16.0) Hematocrit 41.1 % (37-47) Mean Corpuscular Volume 94.1 fL (80-100) Mean Corpuscular Hemoglobin 29.7 pg (25-34) Mean Corpuscular Hemoglobin Concent 31.6 g/dl (32-36) Platelet Count 182 K/uL (130-400) Mean Platelet Volume 13.3 fL (7.4-10.4) Neutrophils (%) (Auto) 68.1 % Lymphocytes (%) (Auto) 17.7 % Monocytes (%) (Auto) 11.6 % Eosinophils (%) (Auto) 1.8 % Basophils (%) (Auto) 0.2 % Neutrophils # (Auto) 9.13 K/uL (1.4-6.5) Lymphocytes # (Auto) 2.37 K/uL (1.2-3.4) Monocytes # (Auto) 1.55 K/uL (0.11-0.59) Eosinophils # (Auto) 0.24 K/uL (0-0.5) Basophils # (Auto) 0.03 K/uL (0-0.2) RDW Standard Deviation 59.8 fL (36.4-46.3) RDW Coefficient of Variation 17.2 % (11.5-14.5) Immature Granulocyte % (Auto) 0.6 % Immature Granulocyte # (Auto) 0.08 K/uL (0.00-0.02) Prothrombin Time 10.7 SECONDS (9.0-12.0) Prothromb Time International Ratio 1.0 (0.9-1.1) Activated Partial Thromboplast Time 26.0 SECONDS (21.0-31.0) Partial Thromboplastin Ratio 1.0 Sodium Level 139 mmol/L (136-145) Potassium Level 4.3 mmol/L (3.5-5.1) Chloride Level 96 mmol/L (98-107) Carbon Dioxide Level 37 mmol/L (21-32) Anion Gap 6.0 mmol/L (3-11) Blood Urea Nitrogen 36 mg/dl (7-18) Creatinine 3.09 mg/dl (0.60-1.20) Est Creatinine Clear Calc Drug Dose 13.8 ml/min Estimated GFR () 17.0 Estimated GFR (Non- 14.7 BUN/Creatinine Ratio 11.7 (10-20) Random Glucose 68 mg/dl (70-99) Calcium Level 9.3 mg/dl (8.5-10.1) Magnesium Level 2.2 mg/dl (1.8-2.4) Total Bilirubin 0.5 mg/dl (0.2-1) Aspartate Amino Transf (AST/SGOT) 20 U/L (15-37) Alanine Aminotransferase (ALT/SGPT) 15 U/L (12-78) Alkaline Phosphatase 159 U/L (45-117) Total Protein 6.9 gm/dl (6.4-8.2) Albumin 3.1 gm/dl (3.4-5.0) Globulin 3.8 gm/dl (2.5-4.0) Albumin/Globulin Ratio 0.8 (0.9-2) Thyroid Stimulating Hormone (TSH) 3.100 uIu/ml (0.300-4.500) Bedside Lactic Acid Venous 0.97 mmol/L (0.90-1.70) Urine Color DK YELLOW Urine Appearance CLEAR (CLEAR) Urine pH 6.5 (4.5-7.5) Urine Specific [place] 1.016 (1.000-1.030) Urine Protein NEG (NEG) Urine Glucose (UA) NEG (NEG) Urine Ketones NEG (NEG) Urine Occult Blood NEG (NEG) Urine Nitrite NEG (NEG) Urine Bilirubin NEG (NEG) Urine Urobilinogen NEG (NEG) Urine Leukocyte Esterase TRACE (NEG) Urine WBC (Auto) 1-5 /hpf (0-5) Urine RBC (Auto) 0-4 /hpf (0-4) Urine Hyaline Casts (Auto) 5-10 /lpf (0-5) Urine Epithelial Cells (Auto) 0-5 /lpf (0-5) Urine Bacteria (Auto) NEG (NEG) Influenza Type A Antigen Neg for Influ A (NEG) Influenza Type B Antigen Neg for Influ B (NEG) Test 08/10/17 05:00 08/10/17 06:59 08/10/17 10:15 08/10/17 10:25 Troponin I < 0.015 ng/ml (0-0.045) Ammonia < 10.0 umol/L (11-32) Sodium Level 139 mmol/L (136-145) Potassium Level 4.1 mmol/L (3.5-5.1) Chloride Level 99 mmol/L (98-107) Carbon Dioxide Level 31 mmol/L (21-32) Anion Gap 9.0 mmol/L (3-11) Blood Urea Nitrogen 36 mg/dl (7-18) Creatinine 2.92 mg/dl (0.60-1.20) Est Creatinine Clear Calc Drug Dose 14.6 ml/min Estimated GFR () 18.2 Estimated GFR (Non- 15.7 BUN/Creatinine Ratio 12.4 (10-20) Random Glucose 65 mg/dl (70-99) Calcium Level 9.1 mg/dl (8.5-10.1) Venous Blood pH 7.46 (7.36-7.41) Venous Blood Partial Pressure CO2 47 mmHg (38.0-50.0) Venous Blood Partial Pressure O2 106 mmHg Venous Blood HCO3 33 mmol/L Venous Blood Oxygen Saturation 98.0 % Venous Blood Base Excess 7.8 mEq/L Test 08/10/17 11:30 Bedside Glucose 109 mg/dl (70-90) Micro Results: * 08/10/17 -- Blood Cx x 2 --pending Assessment & Plan 71yo female ordered VANCOMYCIN / ZOSYN for possible aspiration pna. Currently in ARF (SCr 3.1 @ 0215 -> 2.9 @ 1015). Baseline SCr appears to be ~1. VANCOMYCIN: * Loading dose: VANCOMYCIN 1000mg (20mg/kg) IV X 1 dose. * Due to changing renal function, will check a random VANCOMYCIN level with am labs tomorrow morning. * Estimated Pk parameters (based on current renal function): Ke ~0.016 t1/2 ~43 hours. * Goal trough level estimate: between 15 - 20 mcg/mL. Pharmacy will continue to follow and will adjust dose/frequency as necessary. Thank you
[2017-08-10] MEDS ORDERED: SODI CHLOR 2.5MEQ/ML 14.6% INJ 155 MEQ in DEXTROSE 10% 1,000 ML IV SCH (12:00)
[2017-08-10] MEDS: SALINE NASAL GEL (AYR) 14.1 GM TUBE SCH ×2 (12:22→21:52)
[2017-08-10] MEDS: FLUTICASONE/SALMETEROL 250/50 (ADVAIR) 14 PUFF/1 INHALER INH SCH ×2 (12:22→21:44)
[2017-08-10] MEDS: DULOXETINE (CYMBALTA) 30 MG CAP PO SCH (12:23)
[2017-08-10] MEDS: CARVEDILOL 25 MG TAB PO SCH ×2 (12:23→21:00)
[2017-08-10] MEDS: CALCITONIN SALMON NA 200 IU/AC 3.7 ML BTL NAE SCH (12:23)
[2017-08-10] MEDS: METHADONE HCL 10 MG TAB PO SCH ×3 (12:23→21:00)
[2017-08-10] MEDS: PANTOprazole SOD 40 MG TAB PO SCH ×2 (12:24→21:00)
[2017-08-10] MEDS: SENNA 8.6 MG TAB PO SCH (12:24)
[2017-08-10] MEDS: BACLOFEN 10 MG TAB PO SCH ×3 (12:24→21:00)
[2017-08-10] MEDS: CLOPIDOGREL BISULFATE 75 MG TAB PO SCH (12:24)
[2017-08-10] MEDS: POLYETHYLENE (MIRALAX) 17 GM PACK PO SCH (12:24)
[2017-08-10] MEDS: CHOLECALCIFEROL 1000 INTER.UNIT TAB PO SCH (12:25)
[2017-08-10] MEDS ORDERED: INFLUENZA VACCINE HIGH DOSE 65+ 0.5 ML SYR IM. ONE (16:30)
[2017-08-10] MEDS ORDERED: INFLUENZA ADMINISTRATION CHARGE ONE (16:30)
[2017-08-10 18:49] LABS: INFLUENZA A PCR Neg for Influ A (NEG); INFLUENZA B PCR Neg for Influ B (NEG)
[2017-08-10 19:13] LABS: CALCIUM 8.9 mg/dl (8.5-10.1); CREATININE 2.51 mg/dl (0.60-1.20); POTASSIUM 4.1 mmol/L (3.5-5.1)
[2017-08-10] MEDS: PIPERACILL/TAZOBAC IV 3.375 GM in DEXTROSE 5% 100ML 100 ML IV SCH (19:23)
[2017-08-10] MEDS ORDERED: NURSING VERBAL MED ORDER ONE (19:45)
[2017-08-10] MEDS: SODIUM CHLORIDE 0.9% 1000ML 1,000 ML IV SCH (20:08)
[2017-08-10] MEDS ORDERED: MIRTAZAPINE TAB 15 MG TAB PO SCH (21:00)
[2017-08-10] MEDS: LINEZOLID / D5W 600 MG in PREMIXED IN D5W 300 ML IV SCH (21:43)
[2017-08-10] MEDS: ALBUTEROL 0.083% NEBU SOLN 3 ML VIAL INH PRN (22:40)
[2017-08-11] VITALS (10 sets, daily range): BP systolic 119–181; BP diastolic 71–99; PULSE 63–78; TEMP 36.6–37.2; O2SAT 87–99; Ht 162.6 cm; Wt 53.0 kg
[2017-08-11 02:37] LABS: CALCIUM 8.7 mg/dl (8.5-10.1); CREATININE 2.18 mg/dl (0.60-1.20); POTASSIUM 4.3 mmol/L (3.5-5.1)
[2017-08-11] MEDS: ALBUT/IPRATROP 3MG/0.5MG NEB 3 ML VIAL INH SCH ×4 (03:00→19:10)
[2017-08-11] MEDS: SODIUM CHLORIDE 0.9% 1000ML 1,000 ML IV SCH ×2 (06:16→18:51)
[2017-08-11] MEDS: PIPERACILL/TAZOBAC IV 3.375 GM in DEXTROSE 5% 100ML 100 ML IV SCH ×2 (06:16→18:47)
[2017-08-11] MEDS: METHYLPREDNISOLONE IV 40 MG in SYRINGE 0 ML IV SCH ×2 (06:16→13:53)
[2017-08-11 06:37] LABS: CREATININE 2.1 mg/dl (0.60-1.20)
[2017-08-11] MEDS: LINEZOLID / D5W 600 MG in PREMIXED IN D5W 300 ML IV SCH (08:59)
[2017-08-11] MEDS ORDERED: VANCOMYCIN IV 1,000 MG in SODIUM CHLORIDE 0.9% 250ML 250 ML IV ONE (09:00)
[2017-08-11] MEDS: FLUTICASONE/SALMETEROL 250/50 (ADVAIR) 14 PUFF/1 INHALER INH SCH ×2 (09:00→21:29)
[2017-08-11] MEDS: PANTOprazole SOD 40 MG TAB PO SCH ×2 (09:01→21:30)
[2017-08-11] MEDS: CHOLECALCIFEROL 1000 INTER.UNIT TAB PO SCH (09:01)
[2017-08-11] MEDS: CLOPIDOGREL BISULFATE 75 MG TAB PO SCH (09:01)
[2017-08-11] MEDS: POLYETHYLENE (MIRALAX) 17 GM PACK PO SCH (09:01)
[2017-08-11] MEDS: BACLOFEN 10 MG TAB PO SCH ×3 (09:01→21:30)
[2017-08-11] MEDS: SENNA 8.6 MG TAB PO SCH (09:02)
[2017-08-11] MEDS: CARVEDILOL 25 MG TAB PO SCH ×2 (09:02→21:29)
[2017-08-11] MEDS: CALCITONIN SALMON NA 200 IU/AC 3.7 ML BTL NAE SCH (09:03)
[2017-08-11] MEDS: METHADONE HCL 10 MG TAB PO SCH ×3 (09:03→21:28)
[2017-08-11] MEDS: SALINE NASAL GEL (AYR) 14.1 GM TUBE SCH ×2 (09:03→21:31)
[2017-08-11] MEDS: HEPARIN SOD 5000 UNIT/0.5 ML CARP SQ SCH ×2 (09:17→21:32)
[2017-08-11] MEDS: TIOTROPIUM BROMIDE 5 PUFF/90 MCG INH INH SCH (10:30)
--- NOTE | 2017-08-11 10:45 | Clinical Documentation Query ---
CLINICAL DOCUMENTATION QUERY Dr. BORGES, In your clinical opinion is this patient being managed for: ( ) Severe protein-calorie malnutrition ( ) Not Agree ( ) Other explanation of clinical findings (Please Explain) ( ) Unable to determine (Please Define) ( ) Need to Discuss The medical record reflects the following clinical findings, treatment, and risk factors. Clinical Indicators: 71 yo female presenting with aspiration pneumonia, metabolic encephalopathy and sepsis. Documentation reflects pt has protein calorie malnutrition. Review of historical weights reveals 14.5% wt loss in 1 1/2 months. Pt is described as cachectic in H/P. Treatment: pending fringing machine operator consult, ST consult, CL diet, daily wts Risk Factors: age, aspiration pneumonia, GERD, CKD, COPD, hodgkins lymphoma, chronic diastolic CHF Severe Malnutrition Criteria: (2 criteria needed) Energy intake: <50% of estimated energy requirement for > 5 days Wt loss: 1-2% in 1 wk, 5% in 1 month, or 7.5% in 3 months Body fat: moderate loss of SQ fat from the orbits, triceps or fat overlying the ribs Muscle mass: moderate muscle wasting at the temples, clavicles, shoulders, interosseous spaces, scapula, thigh, calf Fluid accumulation: moderate to severe localized or generalized edema of the extremities, vulva, scrotum-wt loss may be masked by edema [place] Layer strength: measurably decreased per the devices standards Please clarify and document your clinical opinion in the progress notes and discharge summary. Terms such as "probable", "suspected", "likely", "questionable", "possible", or "still to be ruled out" are acceptable. IF IN AGREEMENT, YOU MUST DOCUMENT ABOVE DIAGNOSTIC STATEMENT IN DAILY PROGRESS NOTES AND DISCHARGE SUMMARY. This document is not part of the patient's record. Thank You, Chanelle Bernabe RN [phone]
--- NOTE | 2017-08-11 10:48 | Clinical Documentation Query ---
CLINICAL DOCUMENTATION QUERY Dr. ANDUJAR, In your clinical opinion is this patient being managed for: ( x ) Severe protein-calorie malnutrition ( ) Not Agree ( ) Other explanation of clinical findings (Please Explain) ( ) Unable to determine (Please Define) ( ) Need to Discuss The medical record reflects the following clinical findings, treatment, and risk factors. Clinical Indicators: 71 yo female presenting with aspiration pneumonia, metabolic encephalopathy and sepsis. Documentation reflects pt has protein calorie malnutrition. Review of historical weights reveals 14.5% wt loss in 1 1/2 months. Pt is described as cachectic in H/P. Treatment: pending acid bath mixer consult, ST consult, CL diet, daily wts Risk Factors: age, aspiration pneumonia, GERD, CKD, COPD, hodgkins lymphoma, chronic diastolic CHF Severe Malnutrition Criteria: (2 criteria needed) Energy intake: <50% of estimated energy requirement for > 5 days Wt loss: 1-2% in 1 wk, 5% in 1 month, or 7.5% in 3 months Body fat: moderate loss of SQ fat from the orbits, triceps or fat overlying the ribs Muscle mass: moderate muscle wasting at the temples, clavicles, shoulders, interosseous spaces, scapula, thigh, calf Fluid accumulation: moderate to severe localized or generalized edema of the extremities, vulva, scrotum-wt loss may be masked by edema Ordering Box Operator strength: measurably decreased per the devices standards Please clarify and document your clinical opinion in the progress notes and discharge summary. Terms such as "probable", "suspected", "likely", "questionable", "possible", or "still to be ruled out" are acceptable. IF IN AGREEMENT, YOU MUST DOCUMENT ABOVE DIAGNOSTIC STATEMENT IN DAILY PROGRESS NOTES AND DISCHARGE SUMMARY. This document is not part of the patient's record. Thank You, Chanelle Bernabe RN [phone]
--- NOTE | 2017-08-11 11:40 | Progress Note ---
Progress Note Date of Service Aug 11, 2017. Progress Note ID Consult Dicated #[id number] A/P: 1. Aspiration Pna -Continue zosyn/zvox x 7 days, can change zyvox to po -HOB at 30 degrees -Thank you
--- NOTE | 2017-08-11 11:59 | INFECT. DISEASE CONSULTATION ---
DATE OF CONSULTATION: 08/11/2017 HISTORY OF PRESENT ILLNESS: This is a 71-year-old female who was admitted to the hospital from a local facility after she had worsening change in mental status. She recently was started empirically on Tamiflu at her nursing facility secondary to subjective fevers and chills. She had worsening mental status and was subsequently sent to the hospital yesterday. She was found to have a leukocytosis of 13.4. She was also found to have a creatinine of 3. This has improved to 2.1. As part of her workup, a urinalysis was obtained and this was negative. Flu swab was negative. She did have a CAT scan of the chest, which showed upper lobe scattered infiltrates. She was thought to have had aspiration event and she was started empirically on Zosyn and Zyvox. She is also receiving IV steroids. She has been afebrile since admission. Infectious diseases was consulted for Zyvox approval. She currently is resting comfortably in bed. She states she has some shortness of breath and nonproductive cough. She denies any fevers or chills. She denies any nausea, vomiting, diarrhea or abdominal pain. PAST MEDICAL HISTORY: Significant for bronchiectasis, osteoporosis, renal artery stenosis, chronic kidney disease, hypertension, hyperlipidemia, hyperparathyroidism, compression fractures, Hodgkin's lymphoma, COPD on chronic oxygen, peptic ulcer disease, gout, malnutrition and chronic pain with opiate dependency. PAST SURGICAL HISTORY: Significant for left renal artery stenting and kyphoplasty. FAMILY HISTORY: Noncontributory. SOCIAL HISTORY: Negative for tobacco use, alcohol use or drug use. She currently resides at [facility]. ALLERGIES: SHE IS ALLERGIC TO LEVAQUIN AND AZITHROMYCIN. CURRENT MEDICATIONS: Include Spiriva, subQ heparin, linezolid, Zosyn, baclofen, Coreg, vitamin D, Plavix, Advair, methadone, Protonix, Senokot, MiraLax, DuoNebs, Solu-Medrol, Ventolin, Tylenol, Maalox, milk of magnesia, Zofran and MiraLax. PHYSICAL EXAMINATION: VITAL SIGNS: She is afebrile, pulse 78, respiratory rate 20, blood pressure 169/97, and oxygen saturation is 94%-95% on 3 liters nasal cannula. GENERAL: She is awake, alert and oriented x3. She is in no acute distress. HEENT: Mucous membranes are moist. Extraocular muscles are intact. HEART: Regular. LUNGS: Breath sounds are decreased bilaterally. There is no wheezing. ABDOMEN: Soft and nondistended. EXTREMITIES: There is no lower extremity edema bilaterally. SKIN: Without rash. LABORATORY STUDIES: CBC yesterday reveals a white blood cell count of 13.4, hemoglobin 13 and platelets of 182. Chemistry panel this morning reveals a sodium of 138, potassium 4.3, chloride 103, bicarb 26, BUN 33, creatinine 2.1, and glucose is 130. UA is negative. Vancomycin level this morning was 14.8. Flu swab was negative. Blood cultures are negative. IMAGING: As above. ASSESSMENT AND PLAN: Aspiration. She will be continued on her current antibiotics, Zyvox can be changed to p.o. She should complete a 7-day course of empiric antibiotics.
--- NOTE | 2017-08-11 16:13 | Hospitalist Progress Note ---
Hospitalist Progress Note Date of Service Aug 11, 2017. (Fernanda Stark PA-C) Subjective Pt evaluation today including: conversation w/ patient, physical exam, chart review, lab review, review of studies, review of inpatient medication list Patient seen and evaluated. More alert today but states she feels groggy. Would suspect she is not completely at baseline mentation but will need to continue to evaluate and see. Verbalizes no complaints. States she is having a lot of sputum production and has been spitting this out. States she doesn't having any issues with swallowing or choking that she can recall. States she is not having any pain. Constitutional: No fever, No chills Respiratory: + cough, No shortness of breath Cardiovascular: No chest pain Abdomen: No pain, No nausea, No vomiting, No diarrhea, No constipation Musculoskeletal: No swelling, No calf pain Female : No dysuria Heme: No abnormal bleeding/bruising (Fernanda Stark PA-C) Medications Current Inpatient Medications Medications (Trade) Dose Ordered Sig/Estephania Route Start Time Stop Time Status Last Admin Dose Admin Baclofen (Lioresal Tab) 10 mg TID PO 08/10/17 09:00 09/09/17 08:59 08/11/17 13:53 10 MG Calcitonin [place] (Fortical Nasal [place]) 1 spray QAM ERIC 08/10/17 09:00 09/09/17 08:59 08/11/17 09:03 1 SPRAY Carvedilol (Coreg Tab) 25 mg BID PO 08/10/17 09:00 09/09/17 08:59 08/11/17 09:02 25 MG Cholecalciferol (Vitamin D Tab) 4,000 inter.unit QAM PO 08/10/17 09:00 09/09/17 08:59 08/11/17 09:01 4,000 INTER.UNIT Clopidogrel Bisulfate (plAVix TAB) 75 mg QAM PO 08/10/17 09:00 09/09/17 08:59 08/11/17 09:01 75 MG Duloxetine HCl (Cymbalta Cap) 30 mg QAM PO 08/10/17 09:00 09/09/17 08:59 Future Hold Salmeterol Xinafoate/ Fluticasone (Advair Diskus 250/50 Inh) 1 puff BID INH 08/10/17 09:00 09/09/17 08:59 08/11/17 09:00 1 PUFF Methadone HCl (Dolophine Tab) 30 mg TID PO 08/10/17 09:00 08/24/17 08:59 08/11/17 13:53 30 MG Mirtazapine (Remeron Tab) 15 mg HS PO 08/10/17 21:00 09/09/17 20:59 Future Hold Pantoprazole Sodium (Protonix Tab) 40 mg BID PO 08/10/17 09:00 09/09/17 08:59 08/11/17 09:01 40 MG Senna (Senokot Tab) 8.6 mg QAM PO 08/10/17 09:00 09/09/17 08:59 08/11/17 09:02 8.6 MG Polyethylene (Miralax Powder Packet) 17 gm QAM PO 08/10/17 09:00 09/09/17 08:59 08/11/17 09:01 17 GM Sodium Chloride (Roca Saline Nasal Gel) 1 appln BID NA 08/10/17 09:00 09/09/17 08:59 08/11/17 09:03 1 APPLN Miscellaneous Information (Consult) 1 ea UD PRN N/A 08/10/17 06:30 09/09/17 06:29 Methylprednisolone Sodium Succinate 40 mg/Syringe 0.64 ml @ 1.5 mls/min Q8 IV 08/10/17 08:30 09/09/17 08:29 08/11/17 13:53 1.5 MLS/MIN Albuterol/ Ipratropium (Duoneb) 3 ml Q6R INH 08/10/17 09:00 09/09/17 08:59 08/11/17 14:24 3 ML Albuterol Sulfate (Ventolin 0.083% 2.5MG/3ML Neb) 2.5 mg Q4H PRN INH 08/10/17 06:45 09/09/17 06:44 08/10/17 22:40 2.5 MG Heparin Sodium (Porcine) (Heparin Sq 5000 Unit/0.5ml) 5,000 unit Q12 SQ 08/10/17 09:00 09/09/17 08:59 08/11/17 09:17 5,000 UNIT Acetaminophen (Tylenol Tab) 650 mg Q4H PRN PO 08/10/17 06:45 09/09/17 06:44 Al Hydrox/Mg Hydrox/Simethicone (Maalox Max Susp) 15 ml Q4H PRN PO 08/10/17 06:45 09/09/17 06:44 Magnesium Hydroxide (Milk Of Magnesia Susp) 30 ml Q12H PRN PO 08/10/17 06:45 09/09/17 06:44 Ondansetron HCl (Zofran Inj) 4 mg Q6H PRN IV 08/10/17 06:45 09/09/17 06:44 Polyethylene (Miralax Powder Packet) 17 gm DAILY PRN PO 08/10/17 06:45 09/09/17 06:44 Piperacillin Sod/ Tazobactam Sod 3.375 gm/Dextrose 115 ml @ 28.75 mls/ hr Q12H IV 08/10/17 18:00 08/17/17 17:59 08/11/17 06:16 28.75 MLS/HR Linezolid 600 mg/ Prmx 300 ml @ 300 mls/hr Q12 IV 08/10/17 21:00 08/17/17 20:59 08/11/17 08:59 300 MLS/HR Sodium Chloride 1,000 ml @ 100 mls/hr Q10H IV 08/10/17 20:00 09/09/17 19:59 08/11/17 06:16 100 MLS/HR Heparin Sodium (Porcine) (Heparin 10 Unit/ ml 5 ml Flush) 5 ml PRN PRN FLUSH 08/11/17 00:30 09/10/17 00:29 Tiotropium [place] (Spiriva Handihaler Inhaler) 1 puff DAILY INH 08/11/17 09:50 09/09/17 08:59 08/11/17 10:30 1 PUFF (Fernanda Stark PA-C) Objective Vital Signs Date Time Temp Pulse Resp B/P (MAP) Pulse Ox O2 Delivery O2 Flow Rate FiO2 08/11/17 14:25 67 16 97 Nasal Cannula 3.0 08/11/17 12:00 Nasal Cannula 3.0 08/11/17 12:00 37.2 75 18 119/85 (96) 94 Nasal Cannula 3.0 08/11/17 08:00 37.1 78 20 169/97 (121) 94 Nasal Cannula 3.0 08/11/17 08:00 Nasal Cannula 3.0 08/11/17 07:17 73 16 94 Nasal Cannula 3.0 08/11/17 04:00 Nasal Cannula 3.0 08/11/17 03:50 37.2 77 15 131/87 (102) 95 Nasal Cannula 3.0 08/11/17 00:00 Nasal Cannula 3.0 08/10/17 23:50 37.5 86 16 111/81 (91) 92 Nasal Cannula 3.0 08/10/17 22:40 84 16 96 Nasal Cannula 2.0 08/10/17 20:00 Nasal Cannula 3.0 08/10/17 19:31 37.2 83 20 142/103 (116) 93 Nasal Cannula 3.0 08/10/17 19:08 87 18 94 Nasal Cannula 2.0 08/10/17 16:00 Nasal Cannula 3.0 (Fernanda Stark, PA-C) Physical Exam General Appearance: no apparent distress Eyes: sclerae normal ENT: hearing grossly normal Neck: supple, no JVD, trachea midline Respiratory/Chest: no respiratory distress, no accessory muscle use, + rhonchi Cardiovascular: regular rate, rhythm Abdomen: normal bowel sounds, non tender, soft Extremities: no pedal edema Neurologic/Psychiatric: alert Skin: normal color (Fernanda Stark, PA-C) Laboratory Results Last 24 Hours Test 08/10/17 17:45 08/10/17 18:26 08/10/17 21:34 08/11/17 02:03 Influenza Type A (RT-PCR) Neg for Influ A Influenza Type B (RT-PCR) Neg for Influ B Sodium Level 137 mmol/L 138 mmol/L Potassium Level 4.1 mmol/L 4.3 mmol/L Chloride Level 101 mmol/L 103 mmol/L Carbon Dioxide Level 29 mmol/L 26 mmol/L Anion Gap 7.0 mmol/L 9.0 mmol/L Blood Urea Nitrogen 33 mg/dl 33 mg/dl Creatinine 2.51 mg/dl 2.18 mg/dl Est Creatinine Clear Calc Drug Dose 17.0 ml/min 19.6 ml/min Estimated GFR () 21.9 25.9 Estimated GFR (Non- 18.9 22.4 BUN/Creatinine Ratio 13.2 14.9 Random Glucose 278 mg/dl 130 mg/dl Calcium Level 8.9 mg/dl 8.7 mg/dl Bedside Glucose 172 mg/dl Test 08/11/17 05:35 Creatinine 2.10 mg/dl Est Creatinine Clear Calc Drug Dose 20.0 ml/min Estimated GFR () 27.1 Estimated GFR (Non- 23.4 Random Vancomycin Level 14.8 mcg/ml (Fernanda Stark PA-C) Assessment and Plan 71 y/o F Hx HTN, HPL, hyperparathyroidism, CKD III, gout, diastolic CHF, 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 The pt resides at [facility] and had apparently developed rigors a few days ago. She was treated with Tamiflu empirically. She was reported to be somnolent this AM and was sent to the ER as a result. The pt is unable to provide any information at present and is difficult to wake up. She is afebrile on arrival to the ER. She is not exhibiting increased oxygen demands. initial labs are notable for ARF, leukocytosis (which may be chronic), hypoglycemia. A CXR is equivocal. Metabolic Encephalopathy 2/2 Possible Aspiration Pneumonia and DIONI/Dehydration: IMPROVING - Suspect she is not completely at baseline - will continue to monitor Rigors and Possible Aspiration Pneumonia with H/O MRSA PNA: - Was treated with Tamiflu at [facility] - fluid swab negative - Reduce stress dose steroids to Methylprednisolone 30 mg IV BID and taper - Zyvox 600 mg po and Zosyn x 7 days - given H/O MRSA PNA - ID following - appreciate recommendations DIONI on CKD Stage III: Baseline 1.0-1.9 - IMPROVING - Continue to monitor and avoid nephrotoxins - continue IVF COPD without Exacerbation: - Continue duonebs; Advair BID; Spiriva daily HTN: - Coreg 25 mg BID Chronic Diastolic CHF: STABLE Hyperparathyroidism: - Calcitonin daily Chronic Pain with Opiate Dependence: - Baclofen 10 mg TID, Methadone 30 mg TID Gout: - Allopurinol held 2/2 DIONI Severe Protein-Calorie Malnutrition: - Encourage oral intake DVT Prophylaxis: Heparin 5000 units SC Q12H Disposition: From [facility] Continued [facility] stay due to: multiple IV medications needed [facility] (Fernanda Stark PA-C) Attending Attestation - Pt seen/examined, chart reviewed, care plan d/w AIRAM Stark. I agree w/ the sanches components of her documentation. Pt more awake/alert during my visit. She asked me to change the TV channel. Despite me taking care of her on multiple occasions in the past she asked "who are you? do I know you?" She knew it was 2017 but could not tell me the president's name; she did know she was in the hospital. VSS no fever gen - awake, alert, confused however eyes - right eye ptosis??; no nystagmus mouth - MM more moist today neck - no JVD heart - RRR lungs - course BS b/l abd - soft, NT ext - no edema neuro - b/l foot drop; strength, however, is 5/5 upper & lower ext; no facial droop; speech clear Cr 2.1 blood cx's neg flu PCR neg A/P: 1. sepsis 2nd to pneumonia, cannot exclude aspiration, cannot exclude MRSA - zosyn/zyvox 2. acute renal failure 2nd to #1 - improving; continue IVF 3. chronic hypoxic resp failure 2nd to COPD - stable 4. metabolic encephalopathy 2nd to #1 - improving, but definitely not at baseline; if she does not return to baseline, in light of neuro exam, will check MRI head; check thiamine level in am as well 5. hypoglycemia - resolved with stress-dose steroids 6. steroid-dependent COPD - continue IV solumedrol but start to wean 7. severe protein calorie malnutrition - add supplement and MVI in AM will need PT, JAYE BORGES MD (Juan Borges MD)
[2017-08-11] MEDS: LINEZOLID 600 MG TAB PO SCH (21:28)
[2017-08-11] MEDS: METHYLPREDNISOLONE IV 30 MG in SYRINGE 0 ML IV SCH (21:29)
[2017-08-11] MEDS: ALBUTEROL 0.083% NEBU SOLN 3 ML VIAL INH PRN (23:45)
[2017-08-12] VITALS (13 sets, daily range): BP systolic 160–198; BP diastolic 76–120; PULSE 65–97; TEMP 36.4–36.9; O2SAT 93–97
[2017-08-12] MEDS: ALBUT/IPRATROP 3MG/0.5MG NEB 3 ML VIAL INH SCH ×4 (03:30→19:36)
[2017-08-12] MEDS: SODIUM CHLORIDE 0.9% 1000ML 1,000 ML IV SCH (04:53)
[2017-08-12] MEDS: PIPERACILL/TAZOBAC IV 3.375 GM in DEXTROSE 5% 100ML 100 ML IV SCH ×2 (04:58→15:08)
--- NOTE | 2017-08-12 05:47 | DIAGNOSTIC IMAGING REPORT ---
CHEST ONE VIEW PORTABLE CLINICAL HISTORY: Increased O2 demand. Fever COMPARISON STUDY: 08/10/2017 FINDINGS: Moderate stable cardiomegaly. Tortuous thoracic aorta. Minimal infiltrative change left base. Subsegmental atelectasis right base unchanged. Old left-sided rib fractures. IMPRESSION: Minimal infiltrative process left lung base. Chronic and postoperative changes as noted. The above report was generated using voice recognition software. It may contain grammatical, syntax or spelling errors. Electronically signed by: Klever June M.D. 08/12/2017 5:46 AM Dictated Date/Time: 08/12/2017 5:44 AM
[2017-08-12 05:50] LABS: MEAN CORPUSCULAR HGB CONC 30.5 g/dl (32-36)
[2017-08-12 06:05] LABS: HEMATOCRIT 34.1 % (37-47); HEMOGLOBIN 10.4 g/dL (12.0-16.0); MEAN CELL VOLUME 93.4 fL (80-100); MEAN CORPUSCULAR HEMOGLOBIN 28.5 pg (25-34); RED CELL DISTRIBUTION WIDTH CV 16.9 % (11.5-14.5); RED CELL DISTRIBUTION WIDTH SD 57.9 fL (36.4-46.3); WHITE BLOOD COUNT 12.65 K/uL (4.8-10.8)
[2017-08-12 06:20] LABS: MEAN PLATELET VOLUME 12.3 fL (7.4-10.4); PLATELET COUNT 143 K/uL (130-400)
[2017-08-12 06:29] LABS: CALCIUM 8.3 mg/dl (8.5-10.1); CREATININE 1.45 mg/dl (0.60-1.20)
[2017-08-12] MEDS: FLUTICASONE/SALMETEROL 250/50 (ADVAIR) 14 PUFF/1 INHALER INH SCH ×2 (08:04→21:22)
[2017-08-12] MEDS: TIOTROPIUM BROMIDE 5 PUFF/90 MCG INH INH SCH (08:04)
[2017-08-12] MEDS: METHYLPREDNISOLONE IV 30 MG in SYRINGE 0 ML IV SCH ×2 (08:05→21:22)
[2017-08-12] MEDS: SALINE NASAL GEL (AYR) 14.1 GM TUBE SCH ×2 (08:05→21:22)
[2017-08-12] MEDS: CALCITONIN SALMON NA 200 IU/AC 3.7 ML BTL NAE SCH (08:05)
[2017-08-12] MEDS: PANTOprazole SOD 40 MG TAB PO SCH ×2 (08:06→21:23)
[2017-08-12] MEDS: BACLOFEN 10 MG TAB PO SCH ×3 (08:06→21:26)
[2017-08-12] MEDS: METHADONE HCL 10 MG TAB PO SCH ×3 (08:06→22:19)
[2017-08-12] MEDS: CHOLECALCIFEROL 1000 INTER.UNIT TAB PO SCH (08:07)
[2017-08-12] MEDS: SENNA 8.6 MG TAB PO SCH (08:08)
[2017-08-12] MEDS: CLOPIDOGREL BISULFATE 75 MG TAB PO SCH (08:08)
[2017-08-12] MEDS: POLYETHYLENE (MIRALAX) 17 GM PACK PO SCH (08:09)
[2017-08-12] MEDS: CARVEDILOL 25 MG TAB PO SCH ×2 (08:09→19:52)
[2017-08-12] MEDS: LINEZOLID 600 MG TAB PO SCH ×2 (08:09→21:24)
[2017-08-12] MEDS: THIAMINE HCL 100 MG TAB PO SCH (08:14)
[2017-08-12] MEDS: HEPARIN SOD 5000 UNIT/0.5 ML CARP SQ SCH ×2 (08:14→21:26)
[2017-08-12] MEDS ORDERED: NIFEdipine 30 MG CR TAB PO STA (09:29)
[2017-08-12] MEDS ORDERED: HALOPERIDOL 1 MG TAB PO STA (09:43)
[2017-08-12] MEDS: HydrALAZINE 10 MG TAB PO SCH (19:52)
[2017-08-13] VITALS (11 sets, daily range): BP systolic 134–156; BP diastolic 70–91; PULSE 58–77; TEMP 36.6–37.1; O2SAT 94–98
[2017-08-13] MEDS: PIPERACILL/TAZOBAC IV 3.375 GM in DEXTROSE 5% 100ML 100 ML IV SCH ×4 (00:26→23:45)
[2017-08-13] MEDS: ALBUT/IPRATROP 3MG/0.5MG NEB 3 ML VIAL INH SCH ×4 (01:51→19:50)
--- NOTE | 2017-08-13 06:39 | Progress Note ---
Subjective Date of Service: Aug 12, 2017. Subjective Pt evaluation today including: conversation w/ patient, conversation w/ family (son, Jonnathan - by phone), physical exam, chart review, lab review, review of inpatient medication list Pain: no headache, no cp, no abd pain PO Intake: improved today Voiding: walker catheter in place tele stable overnight when I went to see her today she was awake, alert, and oriented she recognized me today (yesterday she did not know who I was) she actually asked to return to [facility] today because she felt so good she has a RUE PICC line- she could not tell me who had put it in or how long it was in she could not tell me if she had been treated for flu prior to this stay Jonnathan (her son) stated it was not clear to him how much walking his mother had been doing at [facility] Mrs. duffy stated she had walked 180 feet recently ? Problem List Medical Problems: (1) Acute kidney injury superimposed on chronic kidney disease Status: Acute (2) Altered mental status Status: Acute (3) Anemia Status: Acute (4) Bilateral pneumonia Status: Acute (5) CHF (congestive heart failure) Status: Acute (6) Chronic Kidney Disease, Stage Iii (Moderate) Status: Chronic (7) COPD exacerbation Status: Acute (8) COPD exacerbation Status: Acute (9) Crystal arthritis Status: Chronic (10) Dehydration Status: Acute (11) Dehydration Status: Acute (12) Duodenal bulb ulcer Status: Chronic (13) Failure of outpatient treatment Status: Acute (14) Failure of outpatient treatment Status: Acute (15) Gallbladder dilatation Status: Acute (16) Generalized weakness Status: Acute (17) Gout Status: Chronic (18) Hyperlipidemia Nec/Nos Status: Chronic (19) Hypertension Status: Chronic (20) Hypoxemia Status: Acute (21) Hypoxia Status: Acute (22) Hypoxia Status: Acute (23) Hypoxia Status: Acute (24) Hypoxia Status: Acute (25) Lumbar compression fracture Status: Chronic (26) Opiate use Status: Chronic (27) Osteoporosis Status: Chronic (28) Peripheral edema Status: Acute (29) Pneumonia Status: Acute (30) Pneumonia Status: Acute (31) Pneumonia involving right lung Status: Acute (32) Renal insufficiency Status: Acute (33) Respiratory acidosis Status: Acute (34) Respiratory distress Status: Acute (35) Right renal artery stenosis Status: Chronic (36) Secondary hyperparathyroidism Status: Chronic (37) UTI (urinary tract infection) Status: Acute Review of Systems Constitutional: No fever Respiratory: No cough, No shortness of breath Cardiac: No chest pain Abdomen: No pain, No nausea Objective Vital Signs Date Time Temp Pulse Resp B/P (MAP) Pulse Ox O2 Delivery O2 Flow Rate FiO2 08/12/17 20:00 Nasal Cannula 4.0 08/12/17 19:49 36.6 66 24 178/95 (122) 95 Nasal Cannula 4.0 08/12/17 19:36 74 18 95 Nasal Cannula 3.0 08/12/17 16:00 Nasal Cannula 4.0 08/12/17 15:13 36.8 66 20 174/97 (122) 94 Nasal Cannula 3.0 08/12/17 14:23 73 16 95 Nasal Cannula 3.0 08/12/17 12:00 Nasal Cannula 4.0 08/12/17 11:34 185/95 (125) 08/12/17 11:14 36.5 72 20 198/120 (146) 93 Nasal Cannula 4.0 08/12/17 08:00 36.7 68 18 169/76 (107) 94 08/12/17 08:00 Nasal Cannula 4.0 08/12/17 07:11 72 16 97 Nasal Cannula 3.0 08/12/17 04:00 Nasal Cannula 4.0 08/12/17 03:35 36.4 75 20 180/96 (124) 96 Nasal Cannula 4.0 08/12/17 03:30 97 16 94 Nasal Cannula 3.0 08/12/17 02:11 93 Nasal Cannula 4.0 08/12/17 02:00 175/91 (119) 08/12/17 00:00 Nasal Cannula 4.0 08/11/17 23:46 68 16 91 Nasal Cannula 3.0 08/11/17 23:35 36.6 63 22 181/71 (107) 87 Nasal Cannula 3.0 Physical Exam General Appearance: no apparent distress, + pertinent finding (looks older than stated age) ENT: pharynx normal (MMM) Neck: no JVD Respiratory/Chest: lungs clear, no respiratory distress, no accessory muscle use, + rales Cardiovascular: regular rate, rhythm, no gallop Abdomen: normal bowel sounds, non tender, soft, no organomegaly Extremities: no pedal edema Neurologic/Psychiatric: alert, oriented x 3, + pertinent finding (b/l foot drop ) Skin: + pertinent finding (PICC line, RUE) Laboratory Results Last 24 Hours Test 08/12/17 05:33 White Blood Count 12.65 K/uL Red Blood Count 3.65 M/uL Hemoglobin 10.4 g/dL Hematocrit 34.1 % Mean Corpuscular Volume 93.4 fL Mean Corpuscular Hemoglobin 28.5 pg Mean Corpuscular Hemoglobin Concent 30.5 g/dl RDW Standard Deviation 57.9 fL RDW Coefficient of Variation 16.9 % Platelet Count 143 K/uL Mean Platelet Volume 12.3 fL Platelet Estimate NORMAL Sodium Level 141 mmol/L Potassium Level 4.0 mmol/L Chloride Level 107 mmol/L Carbon Dioxide Level 29 mmol/L Anion Gap 5.0 mmol/L Blood Urea Nitrogen 30 mg/dl Creatinine 1.45 mg/dl Est Creatinine Clear Calc Drug Dose 28.9 ml/min Estimated GFR () 42.5 Estimated GFR (Non- 36.7 BUN/Creatinine Ratio 20.6 Random Glucose 80 mg/dl Calcium Level 8.3 mg/dl Magnesium Level 1.9 mg/dl Vitamin B12 Level 470 pg/mL Assessment and Plan 71yo female - 1. sepsis 2nd to pneumonia, cannot exclude aspiration, cannot exclude MRSA - zosyn/zyvox - day #3 of abx; plan 7 days in total of abx. Suspect we can transition to oral abx next 1-2 days given her clinical response. Appreciate ID consult. 2. acute renal failure 2nd to #1 - resolved; d/c fluids. 3. chronic hypoxic resp failure 2nd to COPD - stable; she is steroid-dependent , and currently receiving stress-dose steroids; can likely transition off IV solumedrol tomorrow back to prednisone and cont weaning. 4. metabolic encephalopathy 2nd to #1 - marked improvement today, although she did need a dose of haldol this am. Her neuro exam is nonfocal and CT head at admission was negative for acute process. Sent thiamine level to be complete but doubt deficiency. Defer on MRI brain for now given her clinical improvement with Rx of her sepsis. 5. hypoglycemia - resolved with stress-dose steroids. 6. steroid-dependent COPD - continue IV solumedrol but start to wean in am. 7. severe protein calorie malnutrition - add supplement and MVI in AM 8. HTN, with history of renal artery stenosis s/p stents - was previously on a CCB and hydralazine in the past. Her BPs are markedly elevated today. I added nifedipine and despite such her BPs remained high; added hydralazine back as well. Cont bb, cont lasix, follow BPs. 9. chronic pain syndrome - cont methadone TID; has been on this for several years. 10. DVT proph - heparin BID. 11. CKD stage 3-4 - creatinine just about at baseline; fluids have been d/c. 12. dysphagia - moist mech soft diet recommended by speech. PT, OT evals son, Jonnathan, updated by phone Continued [facility] stay due to: multiple IV medications needed [facility]charge [facility]: [facility]
[2017-08-13 06:47] LABS: HEMATOCRIT 35.1 % (37-47); HEMOGLOBIN 10.9 g/dL (12.0-16.0); MEAN CELL VOLUME 93.9 fL (80-100); MEAN CORPUSCULAR HEMOGLOBIN 29.1 pg (25-34); MEAN CORPUSCULAR HGB CONC 31.1 g/dl (32-36); MEAN PLATELET VOLUME 13.1 fL (7.4-10.4); PLATELET COUNT 167 K/uL (130-400); RED CELL DISTRIBUTION WIDTH CV 17.3 % (11.5-14.5); RED CELL DISTRIBUTION WIDTH SD 58.7 fL (36.4-46.3); WHITE BLOOD COUNT 11.16 K/uL (4.8-10.8)
[2017-08-13 07:04] LABS: CALCIUM 8.6 mg/dl (8.5-10.1); CREATININE 1.52 mg/dl (0.60-1.20); POTASSIUM 3.9 mmol/L (3.5-5.1)
[2017-08-13] MEDS: SALINE NASAL GEL (AYR) 14.1 GM TUBE SCH ×2 (09:00→21:10)
[2017-08-13] MEDS: POLYETHYLENE (MIRALAX) 17 GM PACK PO SCH (09:00)
[2017-08-13] MEDS: CEROVITE ADV FORMULA TAB PO SCH (09:05)
[2017-08-13] MEDS: SENNA 8.6 MG TAB PO SCH (09:05)
[2017-08-13] MEDS: CHOLECALCIFEROL 1000 INTER.UNIT TAB PO SCH (09:05)
[2017-08-13] MEDS: BACLOFEN 10 MG TAB PO SCH ×3 (09:05→21:11)
[2017-08-13] MEDS: PANTOprazole SOD 40 MG TAB PO SCH ×2 (09:05→21:14)
[2017-08-13] MEDS: LINEZOLID 600 MG TAB PO SCH ×2 (09:05→21:13)
[2017-08-13] MEDS: THIAMINE HCL 100 MG TAB PO SCH (09:05)
[2017-08-13] MEDS: HydrALAZINE 10 MG TAB PO SCH ×3 (09:06→21:14)
[2017-08-13] MEDS: CALCITONIN SALMON NA 200 IU/AC 3.7 ML BTL NAE SCH (09:06)
[2017-08-13] MEDS: TIOTROPIUM BROMIDE 5 PUFF/90 MCG INH INH SCH (09:06)
[2017-08-13] MEDS: NIFEdipine 30 MG CR TAB PO SCH (09:06)
[2017-08-13] MEDS: METHYLPREDNISOLONE IV 30 MG in SYRINGE 0 ML IV SCH ×2 (09:06→21:10)
[2017-08-13] MEDS: CARVEDILOL 25 MG TAB PO SCH ×2 (09:06→21:15)
[2017-08-13] MEDS: CLOPIDOGREL BISULFATE 75 MG TAB PO SCH (09:06)
[2017-08-13] MEDS: FLUTICASONE/SALMETEROL 250/50 (ADVAIR) 14 PUFF/1 INHALER INH SCH ×2 (09:06→21:10)
[2017-08-13] MEDS: BOOST VANILLA PO SCH ×2 (09:16→16:07)
[2017-08-13] MEDS: METHADONE HCL 10 MG TAB PO SCH ×3 (09:26→21:10)
[2017-08-13] MEDS: HEPARIN SOD 5000 UNIT/0.5 ML CARP SQ SCH ×2 (09:35→21:21)
[2017-08-13] MEDS: ALBUTEROL 0.083% NEBU SOLN 3 ML VIAL INH PRN (11:02)
[2017-08-13] MEDS ORDERED: BOOST VANILLA PO SCH (16:00)
--- NOTE | 2017-08-13 23:45 | Hospitalist Progress Note ---
Hospitalist Progress Note Date of Service Aug 13, 2017. Subjective Pt evaluation today including: conversation w/ patient Patient feeling great. Really [facility] to the [facility] today. She denies cough or shortness of breath, denies chest pain. Her blood pressures are improved. She denies abdominal pain. All Other Systems: Reviewed and Negative Objective Vital Signs Date Time Temp Pulse Resp B/P (MAP) Pulse Ox O2 Delivery O2 Flow Rate FiO2 08/13/17 20:00 Nasal Cannula 4.0 08/13/17 19:56 63 18 95 Nasal Cannula 3.0 08/13/17 19:44 37.1 60 24 154/91 (112) 96 Nasal Cannula 3.0 08/13/17 16:00 Nasal Cannula 4.0 08/13/17 15:32 36.6 70 22 134/77 (96) 95 Nasal Cannula 4.0 08/13/17 14:30 64 18 96 Nasal Cannula 3.0 08/13/17 12:02 36.8 66 16 156/91 (112) 94 4.0 08/13/17 12:00 Nasal Cannula 4.0 08/13/17 11:02 62 18 96 Nasal Cannula 3.0 08/13/17 08:00 Nasal Cannula 4.0 08/13/17 07:38 36.7 77 22 137/84 (101) 98 Nasal Cannula 4.0 08/13/17 07:08 75 18 97 Nasal Cannula 3.0 08/13/17 04:00 Nasal Cannula 4.0 08/13/17 03:43 37.1 68 20 144/79 (100) 96 Nasal Cannula 4.0 08/13/17 01:51 70 18 94 Nasal Cannula 3.0 08/13/17 00:00 Nasal Cannula 4.0 08/12/17 23:40 36.9 65 22 160/85 (110) 95 Nasal Cannula 4.0 Physical Exam General Appearance: WD/WN, no apparent distress Eyes: normal inspection, sclerae normal ENT: hearing grossly normal Neck: trachea midline Respiratory/Chest: lungs clear, normal breath sounds, no respiratory distress, no accessory muscle use Cardiovascular: regular rate, rhythm, no edema, no gallop, no murmur Abdomen: normal bowel sounds, non tender, soft, + pertinent finding (White catheter in place draining clear yellow urine) Extremities: non-tender, normal inspection, no pedal edema, no calf tenderness , + pertinent finding (Right upper extremity with PICC line in place without surrounding erythema; with significant kyphosis) Neurologic/Psychiatric: alert, normal mood/affect, oriented x 3 Skin: normal color, warm/dry, no rash Laboratory Results Last 24 Hours Test 08/13/17 06:19 White Blood Count 11.16 K/uL Red Blood Count 3.74 M/uL Hemoglobin 10.9 g/dL Hematocrit 35.1 % Mean Corpuscular Volume 93.9 fL Mean Corpuscular Hemoglobin 29.1 pg Mean Corpuscular Hemoglobin Concent 31.1 g/dl RDW Standard Deviation 58.7 fL RDW Coefficient of Variation 17.3 % Platelet Count 167 K/uL Mean Platelet Volume 13.1 fL Sodium Level 143 mmol/L Potassium Level 3.9 mmol/L Chloride Level 107 mmol/L Carbon Dioxide Level 28 mmol/L Anion Gap 8.0 mmol/L Blood Urea Nitrogen 27 mg/dl Creatinine 1.52 mg/dl Est Creatinine Clear Calc Drug Dose 27.8 ml/min Estimated GFR () 40.1 Estimated GFR (Non- 34.6 BUN/Creatinine Ratio 17.7 Random Glucose 170 mg/dl Calcium Level 8.6 mg/dl Assessment and Plan This patient is a 71 y/o F Hx HTN, HPL, hyperparathyroidism, CKD III, gout, chronic diastolic CHF, COPD - 02-dependient/chronic hypoxic respiratory failure , bronchiectasis and recurrent pneumonia, and depression. The pt resides at [facility] and had apparently developed rigors a few days prior to admission. She was treated with Tamiflu empirically. She was reported to be somnolent and was sent to the ER as a result. The pt is unable to provide any information at present and is difficult to wake up. She is afebrile on arrival to the ER. She is not exhibiting increased oxygen demands. initial labs are notable for ARF, leukocytosis (which may be chronic), hypoglycemia. A CXR is equivocal. Acute metabolic Encephalopathy/Aspiration Pneumonia of bilateral upper lobes- encephalopathy resolved. Chest CT confirms bilateral infiltrates mostly in upper lobes. Her neuro exam is nonfocal and CT head at admission was negative for acute process. Sent thiamine level to be complete but doubt deficiency. Defer on MRI brain for now given her clinical improvement with Rx of her sepsis. - Was treated with Tamiflu at [facility] - flu swab negative - Reduce stress dose steroids to Methylprednisolone 30 mg IV BID and taper to once daily for tomorrow and then back to home dose of prednisone on discharge - Zyvox 600 mg po twice daily and Zosyn x 7 days - given H/O MRSA PNA-will switch Zosyn to p.o. Augmentin tomorrow - ID following - appreciate recommendations -Continue p.o. thiamine DIONI on CKD Stage III/secondary hyperparathyroidism: Baseline 1.0-1.9 - creatinine with slight increase today to 1.52-overall improved from admission creatinine of 3.09 - Continue to monitor and avoid nephrotoxins -DC IV fluids COPD without Exacerbation/chronic hypoxic respiratory failure with steroid dependence: - Continue duonebs; Advair BID; Spiriva daily -Steroid taper from stress dosing as above back to prednisone daily HTN, with history of renal artery stenosis s/p stents: Improved control with the addition of nifedipine -Continue Coreg 25 mg BID -Continue nifedipine 30 mg XR once daily -Continue Lasix Chronic Diastolic CHF: STABLE, not volume overloaded -Continue daily Lasix Chronic Pain with Opiate Dependence: Stable -Continue baclofen 10 mg TID, Methadone 30 mg TID Gout: - Allopurinol held initially due to DIONI -Okay to restart allopurinol Severe Protein-Calorie Malnutrition: - Encourage oral intake Depression-stable Okay to restart duloxetine in the morning -Restart Remeron tomorrow night Dysphagia-now resolved completely as encephalopathy resolved -Can liberalize diet as per nutrition recommendations DVT Prophylaxis: Heparin 5000 units SC Q12H Disposition: From [facility]-to go back there tomorrow-could have gone back today, but [facility] to [facility]mit her there PT, OT lindy
[2017-08-14] VITALS (7 sets, daily range): BP systolic 168–188; BP diastolic 92–95; PULSE 58–87; TEMP 36.6–37; O2SAT 95–98
[2017-08-14] MEDS: ALBUT/IPRATROP 3MG/0.5MG NEB 3 ML VIAL INH SCH ×3 (01:09→14:18)
[2017-08-14] MEDS: HydrALAZINE 10 MG TAB PO SCH ×2 (05:37→13:44)
[2017-08-14 07:03] LABS: CALCIUM 8.3 mg/dl (8.5-10.1); CREATININE 1.42 mg/dl (0.60-1.20)
[2017-08-14] MEDS ORDERED: AMOXICILLIN/CLAVULANATE TAB 875 MG TAB PO SCH (07:30)
[2017-08-14] MEDS: METHADONE HCL 10 MG TAB PO SCH ×2 (07:41→13:52)
[2017-08-14] MEDS: CLOPIDOGREL BISULFATE 75 MG TAB PO SCH (07:42)
[2017-08-14] MEDS: FLUTICASONE/SALMETEROL 250/50 (ADVAIR) 14 PUFF/1 INHALER INH SCH (07:43)
[2017-08-14] MEDS: SENNA 8.6 MG TAB PO SCH (07:43)
[2017-08-14] MEDS: TIOTROPIUM BROMIDE 5 PUFF/90 MCG INH INH SCH (07:45)
[2017-08-14] MEDS: CEROVITE ADV FORMULA TAB PO SCH (07:49)
[2017-08-14] MEDS: THIAMINE HCL 100 MG TAB PO SCH (07:50)
[2017-08-14] MEDS: CHOLECALCIFEROL 1000 INTER.UNIT TAB PO SCH (07:50)
[2017-08-14] MEDS: PANTOprazole SOD 40 MG TAB PO SCH (07:50)
[2017-08-14] MEDS: BACLOFEN 10 MG TAB PO SCH ×2 (07:51→13:44)
[2017-08-14] MEDS: NIFEdipine 30 MG CR TAB PO SCH (07:52)
[2017-08-14] MEDS: CARVEDILOL 25 MG TAB PO SCH (07:52)
[2017-08-14] MEDS: SALINE NASAL GEL (AYR) 14.1 GM TUBE SCH (07:52)
[2017-08-14] MEDS: CALCITONIN SALMON NA 200 IU/AC 3.7 ML BTL NAE SCH (07:53)
[2017-08-14] MEDS: DULOXETINE (CYMBALTA) 30 MG CAP PO SCH (07:54)
[2017-08-14] MEDS: POLYETHYLENE (MIRALAX) 17 GM PACK PO SCH (07:54)
[2017-08-14] MEDS: LINEZOLID 600 MG TAB PO SCH (07:55)
[2017-08-14] MEDS: HEPARIN SOD 5000 UNIT/0.5 ML CARP SQ SCH (07:56)
[2017-08-14] MEDS ORDERED: ALLOPURINOL 100 MG TAB PO SCH (09:00)
[2017-08-14] MEDS ORDERED: FLUTICASONE PROPIONATE NA SPR 16 GM BTL NAE SCH (09:00)
[2017-08-14] MEDS ORDERED: METHYLPREDNISOLONE IV 30 MG in SYRINGE 0 ML IV SCH (09:00)
[2017-08-14] MEDS ORDERED: AMOX1TAB43 PO (10:36)
[2017-08-14] MEDS ORDERED: APR10 PO (10:36)
[2017-08-14] MEDS ORDERED: LINE1TAB2 PO (10:36)
[2017-08-14] MEDS ORDERED: PRD/25 PO (10:36)
[2017-08-14] MEDS ORDERED: SODI0.9I55 IV (10:36)
[2017-08-14] MEDS ORDERED: THM100 PO (10:36)
[2017-08-14] MEDS ORDERED: NIFE30TA2 PO (10:36)
--- NOTE | 2017-08-14 10:45 | Discharge Instructions ---
Discharge Instructions Date of Service Aug 14, 2017. Admission Reason for Admission: Acute encephalopathy, bilateral pneumonia Discharge Discharge Diagnosis / Problem: Acute encephalopathy-metabolic, bilateral pneumonia-suspect aspiration Discharge Goals Goal(s): Improve disease control, Diagnostic testing, Therapeutic intervention Activity Recommendations Activity Level: Assistance Required Therapies: Physical Therapy, Occupational Therapy Shower/Bathe: no limitations (Except keep PICC dry) . Additional Information Patient informed of condition: Yes Advance Directives: No DNR: No Level of Care: Skilled Communicable Disease: Yes (MRSA, history of ESBL E. coli) Prognosis: Stable Oxygen at (LPM): 3-4 L nasal cannula continuously White Catheter: No Instructions / Follow-Up Instructions / Follow-Up This patient is a 71 y/o F Hx HTN, HPL, hyperparathyroidism, CKD III, gout, chronic diastolic CHF, COPD - 02-dependient/chronic hypoxic respiratory failure , bronchiectasis and recurrent pneumonia, and depression. The pt resides at [facility] and had apparently developed rigors a few days prior to admission. She was treated with Tamiflu empirically. She was reported to be somnolent and was sent to the ER as a result. The pt was initially unable to provide any information at present and was difficult to wake up. She was afebrile on arrival to the ER. She is not exhibiting increased oxygen demands. The initial labs were notable for ARF, leukocytosis (which may be chronic), hypoglycemia. A CXR is equivocal. Acute metabolic Encephalopathy/Aspiration Pneumonia of bilateral upper lobes- encephalopathy resolved. Chest CT confirms bilateral infiltrates mostly in upper lobes. Her neuro exam is nonfocal and CT head at admission was negative for acute process. Sent thiamine level to be complete but doubt deficiency. Defer on MRI brain for now given her clinical improvement with Rx of her sepsis. - Was treated with Tamiflu at [facility] - flu swab negative -Continue to taper down stress dose steroids to home dose of prednisone on discharge - Zyvox 600 mg po twice daily and Zosyn x 7 days - given H/O MRSA PNA-switch Zosyn to p.o. Augmentin and finish out 2-1/2 more days - ID following - appreciate recommendations -Continue p.o. thiamine and follow-up thiamine level after discharge DIONI on CKD Stage III/secondary hyperparathyroidism: Baseline 1.0-1.9 - creatinine at 1.42 on the day of discharge improved from admission creatinine of 3.09 - Continue to monitor and avoid nephrotoxins -Received IV fluids -Follow renal function periodically as an outpatient -Okay to restart daily Lasix on discharge COPD without Exacerbation/chronic hypoxic respiratory failure with steroid dependence: - Continue duonebs; Advair BID; Spiriva daily -Steroid taper from stress dosing as above back to prednisone daily HTN, with history of renal artery stenosis s/p stents: Improved control with the addition of nifedipine and hydralazine -Continue Coreg 25 mg BID -Continue nifedipine 30 mg XR once daily and hydralazine 10 mg p.o. 3 times daily -Continue Lasix Chronic Diastolic CHF: STABLE, not volume overloaded -Continue daily Lasix Chronic Pain with Opiate Dependence: Stable -Continue baclofen 10 mg TID, Methadone 30 mg TID Gout: -Continue allopurinol Severe Protein-Calorie Malnutrition: - Encourage oral intake Depression-stable -Continue duloxetine and Remeron Dysphagia-now resolved completely as encephalopathy resolved -Can liberalize diet as per nutrition recommendations Disposition: Returning to the [facility] today Current Hospital Diet Patient's current hospital diet: Regular Diet Discharge Diet Recommended Diet: Regular Diet Procedures Procedures Performed: CT chest Chest x-ray CT head Pending Studies Studies pending at discharge: yes List of pending studies: Thiamine level Final blood culture results Physician Orders On Transfer Special Precautions: Fall risk Dressing Changes: PICC line dressing change once weekly IV Therapy: None, PICC line remains in place in the right upper extremity as per request of [facility] provider Vital Signs: Routine Weigh: Routine POLST Discussion: Not Applicable Medical Emergencies . Who to Call and When: Medical Emergencies: If at any time you feel your situation is an emergency, please call 911 immediately. . Non-Emergent Contact Non-Emergency issues call your: Primary Care Provider Call Non-Emergent contact if: temperature is above 100.5, you have any medication questions . . "Provider Documentation" section prepared by Elenita Rowe. . Core Measure Problem Core Measures: None
--- NOTE | 2017-08-14 10:50 | Discharge Summary ---
Discharge Summary Date of Service Aug 14, 2017. Discharge Summary Admission Date: Aug 10, 2017 at 06:38 Discharge Date: Aug 14, 2017 Discharge Disposition: long term facility ([facility]) Principal Diagnosis: Acute metabolic encephalopathy, bilateral aspiration pneumonia Problems/Secondary Diagnoses: HTN Accelerated hypertension History of renal artery stenosis status post stenting HPL Secondary hyperparathyroidism CKD III Gout Chronic diastolic CHF COPD without exacerbation 02-dependent/chronic hypoxic respiratory failure Bronchiectasis and recurrent pneumonia Major depressive disorder DIONI on CKD Stage III Chronic Pain with Opiate Dependence Severe Protein-Calorie Malnutrition Dysphagia-resolved Immunizations: Have You Had Influenza Vaccine: Yes Influenza Vaccine Date: Mar 01, 2013 History of Tetanus Vaccine?: Yes Tetanus Immunization Date: Dec 18, 2009 History of Pneumococcal: Yes Pneumococcal Date: Jun 01, 2012 History of Hepatitis B Vaccine: No Procedures: CT head CT chest Chest x-ray Consultations: Infectious disease Medication Reconciliation New Medications: Amoxicillin & Pot Clavulanate (Amoxicillin/Clavulanate P) 1 Tab Tab 875 MG PO BIDM, #5 TAB Hydralazine HCl (Hydralazine HCl) 10 Mg Tab 10 MG PO TID for 30 Days, #90 TAB Linezolid (Linezolid) 600 Mg Tab 600 MG PO BID, #5 TAB Nifedipine (Procardia Xl Ext Rel) 30 Mg Tab 30 MG PO QAM for 30 Days, #30 TAB Thiamine HCl (Vitamin B-1) 100 Mg Tab 200 MG PO QAM for 30 Days, #60 TAB Changed Medications: Prednisone (Prednisone) 2.5 Mg Tab 20 MG PO QAM for 30 Days (Changed from: 2.5 MG) x 2 days then 10mg daily x 2 days then back to usual dose 2.5mg daily Sodium Chloride Flush (Normal Saline Flush) 0.9 % Inj 10 ML IV DAILY for 30 Days (Changed from: IN LEFT ARM PICC & TUNNELED CATHETER: FLUSH WITH 10ML SALINE DAILY NEEDED) IN RIGHT ARM PICC: FLUSH WITH 10ML SALINE DAILY NEEDED Continued Medications: Acetaminophen (Tylenol) 325 Mg Tab 650 MG PO Q6 PRN for Pain or Fever, TAB NEEDED FOR PAIN # 1- 10 OR TEMP > 101F. NTE 3GM APAP /24HRS. Albuterol Sulfate (Albuterol Sulfate) 1.25 Mg/3 Ml Neb 1 VIAL NEB Q4, #75 ML Allopurinol (Zyloprim) 100 Mg Tab 100 MG PO BID, TAB Baclofen (Lioresal) 10 Mg Tab 10 MG PO TID, TAB Calcitonin [place] (Calcitonin-[place]) 30 [place]/3.7 Ml Soln 1 SPRAY ERIC QAM Carvedilol (Coreg) 25 Mg Tab 25 MG PO BID, TAB hold for ap heart rate <50 Cholecalciferol (D-1000) 1,000 Unit Tab 4000 UNITS PO QAM Clopidogrel Bisulfate (Plavix) 75 Mg Tab 75 MG PO QAM Dextrose (Diabetic Use) (Insta-Glucose) 77.4 % Gel 1 APPLN PO GIVE EVERY 15 MINUTES NEEDED FOR HYPOGLYCEMIA BLOOD GLUCOSE LESS THAN 60 AND/OR SYMPTOMATIC HYPOGLYCEMIA ( MUST BE RESPONSIVE AND ABLE TO SWALLOW) Duloxetine HCl (Cymbalta) 30 Mg Cap 30 MG PO QAM, CAP 2 Refills Epinephrine (Epipen) 0.3 Mg/0.3 Ml Inj 0.3 MG IM UD PRN for ALLERGIC REACTION Ferrous Sulfate (Kp Ferrous Sulfate) 325 Mg Tab 325 MG PO BID Fluticasone Prop/Salmeterol (Advair Diskus 250/50 60 Dose) 1 Ea Aerp 1 PUFFS INH BID, INHALER Fluticasone Propionate (Nasal) (Flonase Allergy Relief Ch) 50 Mcg/Act Spr 1 SPRAY ERIC BID Furosemide (Lasix) 20 Mg Tab 20 MG PO QAM, TAB Glucagon (Glucagon Emergency Kit) 1 Mg Kit 1 APPLN IM EVERY 15 MINS NEEDED FOR HYPOGLYCEMIA BLOOD GLUCOSE < 50 AND OR SYMPTOMATIC/UNRESPONSIVE HYPOGLYCEMIA. MAY REPEAT IN 15 MINS IF NEEDED Ipratropium-Albuterol (Combivent Respimat) 1 Aer Aer 1 PUFFS INH QID, INH Melatonin (Melatonin Maximum Strengt) 5 Mg Tab 5 MG PO HS PRN for Insomnia, #30 TAB 1 Refill Methadone HCl (Methadone HCl) 10 Mg Tab 30 MG PO TID Mirtazapine (Remeron) 15 Mg Tab 15 MG PO HS Multivitamin (Multivitamin) Tab 1 TAB PO QAM, TAB Ondasetron Odt (Zofran Odt) 4 Mg Tab 4 MG SL Q6H PRN for Nausea, #6 TAB Pantoprazole (Protonix) 40 Mg Tab 40 MG PO BID, TAB Polyethylene Glycol 3350 (Miralax) 1 Pow Pow 17 GM PO QAM Potassium Chloride (Micro-K Ext Rel) 10 Meq Capcr 10 MEQ PO QAM, CAP Saline (Saline Nasal [place]) 0.65 % Spr 2 SPRAYS ERIC Q8 PRN for Nasal Congestion Sennosides (Senokot) 8.6 Mg Tab 8.6 MG PO QAM, TAB Sodium Chloride ([place] Saline Nasal) 36 Appln/14.1 Gm Gel 1 APPLN ERIC BID Tiotropium Dickinson (Spiriva Handihaler) 30 Puff/540 Mcg Aerp 1 CAP INH DAILY, INHALER [breathe right strip] () 1 APPLN TOP DAILY Discontinued Medications: Oseltamivir Phosphate (Tamiflu) 30 Mg Cap 1 CAP PO DAILY for 5 Days, #5 CAP 08/11/18-/ Saccharomyces Boulardii (Florastor) 250 Mg Cap 1 CAP PO QAM Discharge Exam Patient again feeling great today. Denies cough or shortness of breath, denies chest pain, no abdominal pain, is tolerating p.o. and moving her bowels well. She is at her baseline O2 requirement. She just ambulated with PT in the room before I saw her. Telemetry with normal sinus rhythm with PVCs and PACs Physical Exam General Appearance: WD/WN, no apparent distress Eyes: normal inspection, sclerae normal ENT: hearing grossly normal Neck: trachea midline Respiratory/Chest: lungs clear, normal breath sounds, no respiratory distress, no accessory muscle use Cardiovascular: regular rate, rhythm, no edema, no gallop, no murmur Abdomen: normal bowel sounds, non tender, soft, + pertinent finding (White catheter in place draining clear yellow urine) Extremities: non-tender, normal inspection, no pedal edema, no calf tenderness , + pertinent finding (Right upper extremity with PICC line in place without surrounding erythema; with significant kyphosis) Neurologic/Psychiatric: alert, normal mood/affect, oriented x 3 Skin: normal color, warm/dry, no rash Review of Systems: Constitutional: No fever Eyes: No problem reported ENT: No problem reported Respiratory: No problem reported Cardiovascular: No problem reported Abdomen: No problem reported Musculoskeletal: No problem reported Genitourinary - Female: No problem reported Neurologic: No problem reported Psychiatric: No problem reported Endocrine: No problem reported Hematologic / Lymphatic: No problem reported Integumentary: No problem reported Hospital Course This patient is a 71 y/o F Hx HTN, HPL, hyperparathyroidism, CKD III, gout, chronic diastolic CHF, COPD - 02-dependient/chronic hypoxic respiratory failure , bronchiectasis and recurrent pneumonia, and depression. The pt resides at [facility] and had apparently developed rigors a few days prior to admission. She was treated with Tamiflu empirically. She was reported to be somnolent and was sent to the ER as a result. The pt was initially unable to provide any information at present and was difficult to wake up. She was afebrile on arrival to the ER. She is not exhibiting increased oxygen demands. The initial labs were notable for ARF, leukocytosis (which may be chronic), hypoglycemia. A CXR is equivocal. Acute metabolic Encephalopathy/Aspiration Pneumonia of bilateral upper lobes- encephalopathy resolved. Chest CT confirms bilateral infiltrates mostly in upper lobes. Her neuro exam is nonfocal and CT head at admission was negative for acute process. Sent thiamine level to be complete but doubt deficiency. Defer on MRI brain for now given her clinical improvement with Rx of her sepsis. - Was treated with Tamiflu at [facility] - flu swab negative -Continue to taper down stress dose steroids to home dose of prednisone on discharge - Zyvox 600 mg po twice daily and Zosyn x 7 days - given H/O MRSA PNA-switch Zosyn to p.o. Augmentin and finish out 2-1/2 more days - ID following - appreciate recommendations -Continue p.o. thiamine and follow-up thiamine level after discharge DIONI on CKD Stage III/secondary hyperparathyroidism: Baseline 1.0-1.9 - creatinine at 1.42 on the day of discharge improved from admission creatinine of 3.09 - Continue to monitor and avoid nephrotoxins -Received IV fluids -Follow renal function periodically as an outpatient -Okay to restart daily Lasix on discharge COPD without Exacerbation/chronic hypoxic respiratory failure with steroid dependence: - Continue duonebs; Advair BID; Spiriva daily -Steroid taper from stress dosing as above back to prednisone daily HTN, with history of renal artery stenosis s/p stents: Improved control with the addition of nifedipine and hydralazine -Continue Coreg 25 mg BID -Continue nifedipine 30 mg XR once daily and hydralazine 10 mg p.o. 3 times daily -Continue Lasix Chronic Diastolic CHF: STABLE, not volume overloaded -Continue daily Lasix Chronic Pain with Opiate Dependence: Stable -Continue baclofen 10 mg TID, Methadone 30 mg TID Gout: -Continue allopurinol Severe Protein-Calorie Malnutrition: - Encourage oral intake Depression-stable -Continue duloxetine and Remeron Dysphagia-now resolved completely as encephalopathy resolved -Can liberalize diet as per nutrition recommendations Disposition: Returning to the [facility] today Total Time Spent: Greater than 30 minutes This includes examination of the patient, discharge planning, medication reconciliation, and communication with other providers. Discharge Instructions Please refer to the electronic Patient Visit Report (Discharge Instructions) for additional information. Follow-Up With PCP within 2-3 days Additional Copies To [facility]
--- NOTE | 2017-08-17 11:07 | EDITING REQUIRED CODING QUERY ---
SEPSIS To promote full compliance with coding requirements relating to patient care, physician participation is requested in all cases of waste/materials exchange specialist uncertainty. Please assist us with the question(s) below: In responding to this query, please exercise your independent professional judgement. The fact that a question is asked does not imply that any particular answer is desired or expected. We appreciate your clarification on this issue. Throughout the medical record, you have clearly documented a localized infection and your patient has clinical evidence of a generalized sepsis or severe sepsis. The term urosepsis is a nonspecific entity and is coded as an UTI. If the patient has sepsis, severe sepsis, from an urinary source or some other source, please clarify in your response below. The medical record reflects the following clinical findings: Patient admitted with encephalopathy, acute renal failure, bilateral lung aspiration pneumonitis_Please check below the diagnosis responsible below if applicable. Thank you! MAL Yousif [facility] ( )Bacteremia (Nonspecific laboratory finding of bacteria in the blood) Specify Organism ( ) Present on Admission ( ) Not present on admission ( ) Unable to clinically determine ( ) Septicemia (Systemic disease associated with the presence of pathogenic microorganisms in the blood): Specify Organism ( ) Present on Admission ( ) Not present on admission ( ) Unable to clinically determine (x ) Sepsis Specify Organism Specify Associated Condition/Diagnosis (x ) Present on Admission ( ) Not present on admission ( ) Unable to clinically determine ( ) Severe Sepsis (Sepsis associated with acute organ dysfunction) Specify Organism Specify Associated Condition/Diagnosis ( ) Present on Admission ( ) Not present on admission ( ) Unable to clinically determine ( ) Septic Shock (Severe sepsis with acute circulatory failure, unexplained by other causes) ( ) Present on Admission ( ) Not present on admission ( ) Unable to clinically determine ( ) Other, patient has:
== END 2017-08-14 15:30 | DRG 871 ==
LOC: EDBD 02:05 → C.EDC 02:09 → C.EDINP 06:38 → ENRESERV 10:13 → C.2T 12:38
PROVIDERS: ADMIT Internal Medicine; ATTEND Family Medicine
DX: A41.9 Sepsis, unspecified organism (principal); J69.0 Pneumonitis due to inhalation of food and vomit; N17.9 Acute kidney failure, unspecified; E43 Unspecified severe protein-calorie malnutrition; F11.120 Opioid abuse with intoxication, uncomplicated; G93.41 Metabolic encephalopathy; I13.0 Hypertensive heart and chronic kidney disease with heart failure and stage 1 through stage 4 chronic kidney disease, or unspecified chronic kidney disease; I50.32 Chronic diastolic (congestive) heart failure; J96.10 Chronic respiratory failure, unspecified whether with hypoxia or hypercapnia; N18.3 Chronic kidney disease, stage 3 (moderate); R65.20 Severe sepsis without septic shock; J44.9 Chronic obstructive pulmonary disease, unspecified; M11.9 Crystal arthropathy, unspecified; Z85.72 Personal history of non-Hodgkin lymphomas; Z99.81 Dependence on supplemental oxygen; Z79.891 Long term (current) use of opiate analgesic; Z79.52 Long term (current) use of systemic steroids; M81.0 Age-related osteoporosis without current pathological fracture; Z88.1 Allergy status to other antibiotic agents

== ENCOUNTER → 2017-08-18 | Outpatient (CLI) | payer OTHER ==
[~2017-08-18] MED LIST changes: +ALBU1.257 NEB; +AMOX1TAB43 PO; +APR10 PO; -BISA10SU3 PR; +LINE1TAB2 PO; -MOMLX PO; -MOUTLIQ79 PO; +NIFE30TA2 PO; -PHEN-939 PO; -PIPE1INJ11 IV; -SACC250C3 PO; +SALI1SPR3 NAE; -SODI1ENE RE; +THM100 PO; -XLTOPS OPR; -ZOLP5TAB PO; +[UNRECOGNIZED DRUG - OTHER] TOP
== END ==
LOC: C.LABUPBEA 07:57
PROVIDERS: ATTEND Nurse Practitioner Family
DX: A04.72 Enterocolitis due to Clostridium difficile, not specified as recurrent (principal)

== ENCOUNTER → 2017-08-21 | Outpatient (CLI) | payer OTHER ==
[2017-08-21 08:37] LABS: BASO % 0.1 %; BASO ABS # 0.02 K/uL (0-0.2); EOS ABS # 0.28 K/uL (0-0.5); HEMATOCRIT 35.2 % (37-47); HEMOGLOBIN 10.6 g/dL (12.0-16.0); IG# 0.08 K/uL (0.00-0.02); LYMPH % 13.9 %; LYMPH ABS # 1.93 K/uL (1.2-3.4); MEAN CELL VOLUME 97.2 fL (80-100); MEAN CORPUSCULAR HEMOGLOBIN 29.3 pg (25-34); MEAN CORPUSCULAR HGB CONC 30.1 g/dl (32-36); MEAN PLATELET VOLUME 11.6 fL (7.4-10.4); MONO % 7.8 %; MONO ABS # 1.08 K/uL (0.11-0.59); NEUT % 75.6 %; NEUT ABS # 10.51 K/uL (1.4-6.5); PLATELET COUNT 111 K/uL (130-400); RED CELL DISTRIBUTION WIDTH CV 17.3 % (11.5-14.5); RED CELL DISTRIBUTION WIDTH SD 61.5 fL (36.4-46.3)
[2017-08-21 09:07] LABS: BLOOD UREA NITROGEN 41 mg/dl (7-18); CALCIUM 9.1 mg/dl (8.5-10.1); CARBON DIOXIDE 40 mmol/L (21-32); CREATININE 1.72 mg/dl (0.60-1.20); GLUCOSE 81 mg/dl (70-99); POTASSIUM 3.9 mmol/L (3.5-5.1); SODIUM 141 mmol/L (136-145)
== END ==
LOC: C.LABUPBEA 08:17
PROVIDERS: ATTEND Nurse Practitioner Family
DX: C81.90 Hodgkin lymphoma, unspecified, unspecified site (principal); J18.9 Pneumonia, unspecified organism

== ENCOUNTER → 2017-08-28 | Outpatient (CLI) | payer OTHER ==
[~2017-08-28] MED LIST changes: +SALI-3 NAE; -SALI1SPR3 NAE
[2017-08-28 09:04] LABS: BASO % 0.2 %; BASO ABS # 0.02 K/uL (0-0.2); EOS % 2.1 %; EOS ABS # 0.28 K/uL (0-0.5); HEMATOCRIT 29.8 % (37-47); HEMOGLOBIN 9.2 g/dL (12.0-16.0); IG# 0.27 K/uL (0.00-0.02); LYMPH % 14.3 %; LYMPH ABS # 1.88 K/uL (1.2-3.4); MEAN CELL VOLUME 97.1 fL (80-100); MEAN CORPUSCULAR HGB CONC 30.9 g/dl (32-36); MEAN PLATELET VOLUME 11.8 fL (7.4-10.4); MONO % 15.9 %; MONO ABS # 2.09 K/uL (0.11-0.59); NEUT % 65.4 %; NEUT ABS # 8.62 K/uL (1.4-6.5); PLATELET COUNT 134 K/uL (130-400); RED CELL DISTRIBUTION WIDTH CV 17.1 % (11.5-14.5); RED CELL DISTRIBUTION WIDTH SD 58.7 fL (36.4-46.3); WHITE BLOOD COUNT 13.16 K/uL (4.8-10.8)
[2017-08-28 09:17] LABS: BLOOD UREA NITROGEN 27 mg/dl (7-18); CALCIUM 9.1 mg/dl (8.5-10.1); CARBON DIOXIDE 35 mmol/L (21-32); CREATININE 1.44 mg/dl (0.60-1.20); GLUCOSE 77 mg/dl (70-99); POTASSIUM 4.1 mmol/L (3.5-5.1); SODIUM 144 mmol/L (136-145)
== END ==
LOC: C.LABUPBEA 08:38
PROVIDERS: ATTEND Nurse Practitioner Family
DX: J18.9 Pneumonia, unspecified organism (principal); C81.90 Hodgkin lymphoma, unspecified, unspecified site

== ENCOUNTER → 2017-08-29 | Outpatient (CLI) | payer OTHER | LOC: C.LABUPBEA 09:15 | PROVIDERS: ATTEND Nurse Practitioner Family | DX: R30.0 Dysuria (principal) ==

== ENCOUNTER → 2017-08-30 | Outpatient (CLI) | payer OTHER ==
[2017-08-30 09:58] LABS: HEMATOCRIT 31.3 % (37-47); HEMOGLOBIN 9.6 g/dL (12.0-16.0)
== END ==
LOC: C.LABUPBEA 08:58
PROVIDERS: ATTEND Nurse Practitioner Family
DX: J18.9 Pneumonia, unspecified organism (principal)

== ENCOUNTER → 2017-09-04 | Outpatient (CLI) | payer OTHER ==
[2017-09-04 08:48] LABS: BASO % 0.2 %; BASO ABS # 0.02 K/uL (0-0.2); EOS % 2.4 %; EOS ABS # 0.28 K/uL (0-0.5); HEMATOCRIT 33.2 % (37-47); IG# 0.07 K/uL (0.00-0.02); LYMPH % 15.4 %; LYMPH ABS # 1.79 K/uL (1.2-3.4); MEAN CELL VOLUME 98.8 fL (80-100); MEAN CORPUSCULAR HEMOGLOBIN 29.8 pg (25-34); MEAN CORPUSCULAR HGB CONC 30.1 g/dl (32-36); MEAN PLATELET VOLUME 12.5 fL (7.4-10.4); MONO % 9.1 %; MONO ABS # 1.06 K/uL (0.11-0.59); NEUT % 72.3 %; PLATELET COUNT 296 K/uL (130-400); RED CELL DISTRIBUTION WIDTH SD 64.3 fL (36.4-46.3); WHITE BLOOD COUNT 11.62 K/uL (4.8-10.8)
== END ==
LOC: C.LABUPBEA 08:27
PROVIDERS: ATTEND Nurse Practitioner Family
DX: C81.90 Hodgkin lymphoma, unspecified, unspecified site (principal); R26.89 Other abnormalities of gait and mobility

== ENCOUNTER → 2017-09-07 | Outpatient (CLI) | payer OTHER ==
[2017-09-07 10:14] LABS: ALBUMIN 2.9 gm/dl (3.4-5.0); ALKALINE PHOSPHATASE 137 U/L (45-117); ALT/SGPT 14 U/L (12-78); AST/SGOT 18 U/L (15-37); TOTAL PROTEIN 6.2 gm/dl (6.4-8.2)
== END ==
LOC: C.LABUPBEA 08:35
PROVIDERS: ATTEND Nurse Practitioner Family
DX: B35.1 Tinea unguium (principal)

== ENCOUNTER → 2017-09-11 | Outpatient (CLI) | payer OTHER ==
[2017-09-11 10:40] LABS: BASO % 0.2 %; BASO ABS # 0.02 K/uL (0-0.2); EOS % 3.5 %; EOS ABS # 0.34 K/uL (0-0.5); HEMATOCRIT 33.6 % (37-47); HEMOGLOBIN 10.2 g/dL (12.0-16.0); IG# 0.06 K/uL (0.00-0.02); LYMPH % 15.6 %; LYMPH ABS # 1.51 K/uL (1.2-3.4); MEAN CELL VOLUME 99.4 fL (80-100); MEAN CORPUSCULAR HEMOGLOBIN 30.2 pg (25-34); MEAN CORPUSCULAR HGB CONC 30.4 g/dl (32-36); MEAN PLATELET VOLUME 12.2 fL (7.4-10.4); MONO % 12.7 %; MONO ABS # 1.23 K/uL (0.11-0.59); NEUT % 67.4 %; NEUT ABS # 6.54 K/uL (1.4-6.5); PLATELET COUNT 211 K/uL (130-400); RED CELL DISTRIBUTION WIDTH CV 18.3 % (11.5-14.5); RED CELL DISTRIBUTION WIDTH SD 65.6 fL (36.4-46.3)
== END ==
LOC: C.LABUPBEA 08:57
PROVIDERS: ATTEND Nurse Practitioner Family
DX: C81.90 Hodgkin lymphoma, unspecified, unspecified site (principal)

== ENCOUNTER → 2017-09-14 | Outpatient (CLI) | payer OTHER ==
[2017-09-14 12:26] LABS: ALBUMIN 2.8 gm/dl (3.4-5.0); ALT/SGPT 12 U/L (12-78); AST/SGOT 16 U/L (15-37); BLOOD UREA NITROGEN 17 mg/dl (7-18); CARBON DIOXIDE 37 mmol/L (21-32); CREATININE 1.16 mg/dl (0.60-1.20); GLUCOSE 81 mg/dl (70-99); POTASSIUM 4.2 mmol/L (3.5-5.1); SODIUM 140 mmol/L (136-145)
[2017-09-14 12:28] LABS: ALKALINE PHOSPHATASE 125 U/L (45-117); TOTAL PROTEIN 5.9 gm/dl (6.4-8.2)
[2017-09-14 13:30] LABS: BASO % 0.2 %; BASO ABS # 0.02 K/uL (0-0.2); EOS % 4.1 %; EOS ABS # 0.38 K/uL (0-0.5); HEMATOCRIT 34.1 % (37-47); HEMOGLOBIN 10.2 g/dL (12.0-16.0); IG# 0.05 K/uL (0.00-0.02); LYMPH % 15.6 %; LYMPH ABS # 1.45 K/uL (1.2-3.4); MEAN CELL VOLUME 100.6 fL (80-100); MEAN CORPUSCULAR HEMOGLOBIN 30.1 pg (25-34); MEAN CORPUSCULAR HGB CONC 29.9 g/dl (32-36); MEAN PLATELET VOLUME 12.5 fL (7.4-10.4); MONO % 10.6 %; MONO ABS # 0.99 K/uL (0.11-0.59); NEUT ABS # 6.41 K/uL (1.4-6.5); PLATELET COUNT 161 K/uL (130-400); RED CELL DISTRIBUTION WIDTH CV 17.4 % (11.5-14.5); RED CELL DISTRIBUTION WIDTH SD 64.3 fL (36.4-46.3)
== END ==
LOC: C.LABUPBEA 11:55
PROVIDERS: ATTEND Nurse Practitioner Family
DX: N39.0 Urinary tract infection, site not specified (principal); R60.0 Localized edema

== ENCOUNTER → 2017-09-18 | Outpatient (CLI) | payer OTHER ==
[2017-09-18 09:23] LABS: BASO % 0.2 %; BASO ABS # 0.02 K/uL (0-0.2); EOS % 3.5 %; EOS ABS # 0.39 K/uL (0-0.5); HEMOGLOBIN 10.2 g/dL (12.0-16.0); LYMPH % 19.8 %; LYMPH ABS # 2.22 K/uL (1.2-3.4); MEAN CELL VOLUME 100.6 fL (80-100); MEAN CORPUSCULAR HEMOGLOBIN 30.2 pg (25-34); MEAN PLATELET VOLUME 12.6 fL (7.4-10.4); MONO % 11.9 %; MONO ABS # 1.33 K/uL (0.11-0.59); NEUT % 63.7 %; NEUT ABS # 7.16 K/uL (1.4-6.5); PLATELET COUNT 157 K/uL (130-400); RED CELL DISTRIBUTION WIDTH CV 17.7 % (11.5-14.5); RED CELL DISTRIBUTION WIDTH SD 64.6 fL (36.4-46.3); WHITE BLOOD COUNT 11.22 K/uL (4.8-10.8)
[2017-09-18 09:36] LABS: ALT/SGPT 13 U/L (12-78); AST/SGOT 18 U/L (15-37); BLOOD UREA NITROGEN 26 mg/dl (7-18); CALCIUM 9.1 mg/dl (8.5-10.1); CARBON DIOXIDE 35 mmol/L (21-32); CREATININE 1.76 mg/dl (0.60-1.20); GLUCOSE 60 mg/dl (70-99); POTASSIUM 4.5 mmol/L (3.5-5.1); SODIUM 143 mmol/L (136-145)
[2017-09-18 09:39] LABS: ALKALINE PHOSPHATASE 125 U/L (45-117); TOTAL PROTEIN 6.2 gm/dl (6.4-8.2)
== END ==
LOC: C.LABUPBEA 09:00
PROVIDERS: ATTEND Nurse Practitioner Family
DX: C81.90 Hodgkin lymphoma, unspecified, unspecified site (principal)

== ENCOUNTER → 2017-09-20 | Outpatient (CLI) | payer OTHER ==
[2017-09-20 08:40] LABS: BLOOD UREA NITROGEN 21 mg/dl (7-18); CALCIUM 9.2 mg/dl (8.5-10.1); CARBON DIOXIDE 35 mmol/L (21-32); GLUCOSE 52 mg/dl (70-99); POTASSIUM 3.9 mmol/L (3.5-5.1); SODIUM 141 mmol/L (136-145)
== END ==
LOC: C.LABUPBEA 08:06
PROVIDERS: ATTEND Nurse Practitioner Family
DX: I50.9 Heart failure, unspecified (principal)

== ENCOUNTER → 2017-09-22 | Outpatient (CLI) | payer OTHER | LOC: C.LABUPBEA 11:22 | PROVIDERS: ATTEND Nurse Practitioner Family | DX: N39.0 Urinary tract infection, site not specified (principal) ==

== ENCOUNTER → 2017-09-27 | Outpatient (CLI) | payer OTHER ==
[2017-09-27 10:01] LABS: BLOOD UREA NITROGEN 19 mg/dl (7-18); CALCIUM 9.1 mg/dl (8.5-10.1); CARBON DIOXIDE 37 mmol/L (21-32); CREATININE 1.45 mg/dl (0.60-1.20); GLUCOSE 63 mg/dl (70-99); POTASSIUM 4.2 mmol/L (3.5-5.1); SODIUM 143 mmol/L (136-145)
[2017-09-27 10:09] LABS: HEMOGLOBIN A1C 4.9 % (4.5-5.6)
== END ==
LOC: C.LABUPBEA 09:05
PROVIDERS: ATTEND Nurse Practitioner Family
DX: M62.81 Muscle weakness (generalized) (principal); I50.9 Heart failure, unspecified

== ENCOUNTER → 2017-10-02 | Outpatient (CLI) | payer OTHER ==
[2017-10-02 10:10] LABS: BLOOD UREA NITROGEN 16 mg/dl (7-18); CALCIUM 9.3 mg/dl (8.5-10.1); CARBON DIOXIDE 36 mmol/L (21-32); CREATININE 1.43 mg/dl (0.60-1.20); GLUCOSE 65 mg/dl (70-99); POTASSIUM 4.6 mmol/L (3.5-5.1); SODIUM 140 mmol/L (136-145)
== END ==
LOC: C.LABUPBEA 09:17
PROVIDERS: ATTEND Nurse Practitioner Family
DX: R60.9 Edema, unspecified (principal)

== ENCOUNTER → 2017-10-12 | Outpatient (CLI) | payer OTHER ==
[2017-10-12 08:47] LABS: HEMATOCRIT 34.8 % (37-47); HEMOGLOBIN 10.5 g/dL (12.0-16.0); MEAN CORPUSCULAR HEMOGLOBIN 30.2 pg (25-34); MEAN CORPUSCULAR HGB CONC 30.2 g/dl (32-36); MEAN PLATELET VOLUME 12.4 fL (7.4-10.4); PLATELET COUNT 145 K/uL (130-400); RED CELL DISTRIBUTION WIDTH CV 17.1 % (11.5-14.5); RED CELL DISTRIBUTION WIDTH SD 61.9 fL (36.4-46.3); WHITE BLOOD COUNT 11.87 K/uL (4.8-10.8)
[2017-10-12 09:06] LABS: ALKALINE PHOSPHATASE 93 U/L (45-117); ALT/SGPT 15 U/L (12-78); AST/SGOT 20 U/L (15-37); BLOOD UREA NITROGEN 24 mg/dl (7-18); CALCIUM 9.1 mg/dl (8.5-10.1); CARBON DIOXIDE 35 mmol/L (21-32); CREATININE 1.38 mg/dl (0.60-1.20); GLUCOSE 46 mg/dl (70-99); POTASSIUM 4.3 mmol/L (3.5-5.1); SODIUM 143 mmol/L (136-145); TOTAL PROTEIN 6.1 gm/dl (6.4-8.2)
== END ==
LOC: C.LABUPBEA 08:22
PROVIDERS: ATTEND Nurse Practitioner Family
DX: C81.90 Hodgkin lymphoma, unspecified, unspecified site (principal); D50.9 Iron deficiency anemia, unspecified; M62.81 Muscle weakness (generalized)

== ENCOUNTER → 2017-12-19 | Outpatient (CLI) | payer OTHER ==
[~2017-12-19] MED LIST changes: +AMOX1SUS74 PO; -AMOX1TAB43 PO; +BISA10SU3 PR; +CLR10 PO; +DIAZ-165 PO; +HPRF5 IV; +IMD/2 PO; +LIDO4CRE10 TOP; -LINE1TAB2 PO; +LYR50 PO; +MINEENE9 PR; +MOML PO; +NITR50CA4 PO; +NYST100010 TOP; +OXGN; +PRD10 PO; +PRED10TA PO; +PROB1TAB16 PO; +PROM1SUP19 PR; +PROM25IN13 IV; +PSEU60TA80 PO; +SENN-65 PO; -SODI0.9I55 IV; +SUMA25TA12 PO; +THIA100T27 PO; -THM100 PO; +VERA1TAB52 PO; +VLM5 PO; +ZFRI4 IV; +[UNRECOGNIZED DRUG - CODE] IV; +[UNRECOGNIZED DRUG - CODE] TOP; +[UNRECOGNIZED DRUG - CODE] TOP; -[UNRECOGNIZED DRUG - OTHER] TOP; +[UNRECOGNIZED DRUG - SUPPLY] TD
== END ==
LOC: EDBD → C.LABUPBEA 09:33
PROVIDERS: ATTEND Nurse Practitioner Family
DX: N39.0 Urinary tract infection, site not specified (principal)

== ENCOUNTER 2017-12-20 14:06 | Inpatient (IN) | payer OTHER ==
[~2017-12-20] VITALS: Ht 149.9 cm; Wt 53.6 kg
[~2017-12-20 14:06] MED LIST changes: -DIAZ-165 PO; -LYR50 PO; -NITR50CA4 PO; -OXGN; -PRD10 PO; -PRED10TA PO; -PROM25IN13 IV; -PSEU60TA80 PO; -SENN-65 PO; -SUMA25TA12 PO; -VERA1TAB52 PO; -VLM5 PO; -[UNRECOGNIZED DRUG - SUPPLY] TD
--- NOTE | 2017-12-20 14:38 | EMERGENCY ROOM VISIT NOTE ---
History Report prepared by Ana Luisa: Matthew Strauss Under the Supervision of: Johnnie MuñozO. First contact with patient: 14:10 Chief Complaint: BACK PAIN Stated Complaint: BACK PAIN History of Present Illness The patient is a 72 year old female who presents to the Emergency Room with complaints of constant back pain beginning a few days ago. The patient states that she has a history of frequent UTIs. She notes that her symptoms typically feel like someone is "thrusting a knitting needle into her urethra." She reports that she believes that she is getting another UTI. The patient states that her pain feels like achy and like a throbbing pain. She also complains of chills, nausea, vomiting, urinary urgency, and abdominal pain. She denies any fever. She notes that she has a history of stage three chronic kidney disease. The patient states that she has had UTIs that travel to her kidneys. She notes that she wears oxygen at all times. Source of History: patient Onset: a few days ago Position: back Quality: ache, other (throbbing) Timing: constant Associated Symptoms: + chills, + nausea, + vomiting, + abdominal pain, No fevers Note: The patient also complains of urinary urgency. Review of Systems See HPI for pertinent positives & negatives. A total of 10 systems reviewed and were otherwise negative. Past Medical & Surgical Medical Problems: (1) Acute respiratory failure with hypoxia (2) Altered mental status (3) Ambulatory dysfunction (4) Cholelithiases (5) Chronic kidney disease (CKD) stage G3a/A1, moderately decreased glomerular filtration rate (GFR) between 45-59 mL/min/1.73 square meter and albuminuria creatinine ratio less than 30 mg/g (6) Chronic Kidney Disease, Stage Iii (Moderate) (7) Compression fracture of fourth lumbar vertebra (8) COPD (chronic obstructive pulmonary disease) (9) Crystal arthritis (10) Duodenal bulb ulcer (11) DVT (deep venous thrombosis) (12) Fecal impaction of colon (13) Fever (14) Fracture of right olecranon process (15) Gout (16) Gout attack (17) Headache (18) Hodgkins lymphoma (19) Humerus fracture (20) Hyperlipidemia Nec/Nos (21) Hypertension (22) Hypertension (23) Hypertensive urgency (24) Intractable pain (25) Knee pain (26) Left renal artery stenosis (27) Lethargy (28) Leukocytosis (29) Lower extremity edema (30) Lumbar compression fracture (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, 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, with chronic kidney disease (32) Mucus plugging of bronchi (33) Narcotic withdrawal (34) Opiate use (35) Opioid dependence (36) Osteoporosis (37) Perforated duodenal ulcer (38) PNA (pneumonia) (39) Pneumonia (40) Renal artery stenosis (41) right hand cellulitis (42) Right renal artery stenosis (43) Rigors (44) Secondary hyperparathyroidism (45) Sepsis secondary to UTI (46) Stage 3 chronic kidney disease (47) Thrush, oral (48) UTI (urinary tract infection) (49) UTI (urinary tract infection) (50) Wedge compression fracture of T11 vertebra Surgical Problems: (1) History of kyphoplasty (2) left renal artery stent placement Family History Heart disease Social History Smoking Status: Former Smoker Alcohol Use: none Drug Use: none Marital Status: Housing Status: lives with family Occupation Status: disabled Current/Historical Medications Scheduled Allopurinol (Zyloprim), 100 MG PO BID Baclofen (Lioresal), 10 MG PO TID Calcitonin [place] (Calcitonin-[place]), 1 SPRAY ERIC QAM Carvedilol (Coreg), 25 MG PO BID Cholecalciferol (D-1000), 4,000 UNITS PO QAM Clopidogrel Bisulfate (Plavix), 75 MG PO QAM Duloxetine HCl (Cymbalta), 30 MG PO QAM Ferrous Sulfate (Kp Ferrous Sulfate), 325 MG PO BID Fluticasone Prop/Salmeterol (Advair Diskus 250/50 60 Dose), 1 PUFFS INH BID Heparin Sod (Porcine) (Heparin 100 Unit/Ml 5ML Flush), 5 ML IV PRN Hydralazine HCl (Hydralazine HCl), 10 MG PO TID Ipratropium-Albuterol (Combivent Respimat), 1 PUFFS INH QID Loratadine (Claritin), 10 MG PO DAILY Methadone HCl (Methadone HCl), 30 MG PO TID Mirtazapine (Remeron), 15 MG PO HS Multivitamin (Multivitamin), 1 TAB PO QAM Nifedipine (Procardia Xl Ext Rel), 30 MG PO QAM Nitrofurantoin Macrocrystal (Nitrofurantoin Macrocryst), 50 MG PO DAILY Nystatin (Topical) (Nystop), 1 APPLN TOP BID Pantoprazole (Protonix), 40 MG PO BID Polyethylene Glycol 3350 (Miralax), 17 GM PO QAM Potassium Chloride (Micro-K Ext Rel), 10 MEQ PO QAM Prednisone (Prednisone), 2.5 MG PO DAILY Probiotic Product (Probiotic), 250 MG PO BID Probiotic Product (Probiotic), 250 MG PO DAILY Pseudoephedrine-Guaifenesin (Mucinex D), 1 TAB PO BID Sennosides (Senokot), 8.6 MG PO QAM Sodium Chloride ([place] Saline Nasal), 1 APPLN ERIC BID Sumatriptan Succinate (Imitrex), 25 MG PO PRN Thiamine HCl (Vitamin B-1), 200 MG PO QAM Tiotropium [place] (Spiriva [place]), 1 CAP INH DAILY Scheduled PRN Acetaminophen (Tylenol), 650 MG PO Q6 PRN for Pain or Fever Albuterol Sulfate (Albuterol Sulfate), 1 VIAL NEB Q4 PRN for SOB/Wheezing Bisacodyl (Dulcolax), 1 SUPP IA UD PRN for Constipation Doxepin HCl (Antipruritic) (Doxepin Hydrochloride), 1 APPLN TOP Q6 PRN for Pain Epinephrine (Epipen), 0.3 MG IM UD PRN for ALLERGIC REACTION Lidocaine (Anorectal) (Lidocaine), 1 APPLN TOP Q6 PRN for Pain Loperamide Hcl (Imodium), 2 MG PO Q6 PRN for LOOSE STOOLS Magnesium Hydroxide (Milk Of Magnesia), 30 ML PO UD PRN for Constipation Mineral Oil (Enema Mineral Oil), 1 BTL IA UD PRN for Constipation Ondansetron (Ondansetron Hcl), 4 MG IV Q6 PRN for Nausea or Vomiting Ondasetron Odt (Zofran Odt), 4 MG SL Q6H PRN for Nausea Promethazine (Phenergan Suppository), 25 MG IA Q6H PRN for Nausea Saline (Saline Nasal [place]), 2 SPRAYS ERIC Q8 PRN for Nasal Congestion Miscellaneous Medications Dextrose (Diabetic Use) (Insta-Glucose), 1 APPLN PO Glucagon (Glucagon Emergency Kit), 1 APPLN IM Allergies Coded Allergies: Squash (Verified Allergy, Unknown, Zucchini, 12/20/17) Azithromycin (Verified Adverse Reaction, Unknown, nausea, 12/20/17) Levofloxacin (Verified Adverse Reaction, Unknown, nausea, 12/20/17) Physical Exam Vital Signs Date Time Temp Pulse Resp B/P (MAP) Pulse Ox O2 Delivery O2 Flow Rate FiO2 12/20/17 20:36 68 12 12/20/17 20:31 73 23 12/20/17 20:26 70 12 12/20/17 20:21 70 21 12/20/17 20:16 73 23 12/20/17 20:11 68 16 12/20/17 20:06 70 14 12/20/17 20:01 70 15 12/20/17 18:07 143/79 12/20/17 18:05 88 18 143/79 93 Nasal Cannula 3.0 12/20/17 14:19 37.0 74 18 140/74 92 Nasal Cannula 3.0 Physical Exam GENERAL: alert, chronically ill appearing, well nourished, no distress, non- toxic, looks older than stated age. EYE EXAM: normal conjunctiva, PERRL and EOM's grossly intact OROPHARYNX: no exudate, no erythema, lips, buccal mucosa, and tongue normal and mucous membranes are moist NECK: supple, no nuchal rigidity, no adenopathy, non-tender LUNGS: Clear to auscultation. Normal chest wall mechanics. Decreased breath sounds, no wheezes, rhonchi, and rales. HEART: no murmurs, S1 normal and S2 normal CHEST: Barrel chested. ABDOMEN: abdomen soft, non-tender, normo-active bowel sounds, no masses, no rebound or guarding. BACK: Back is symmetrical on inspection and there is no deformity, no midline tenderness, no CVA tenderness. SKIN: no rashes and no bruising UPPER EXTREMITIES: upper extremities are grossly normal. LOWER EXTREMITIES: No pitting edema. NEURO EXAM: Normal sensorium, cranial nerves II-XII grossly intact, normal speech, no gross weakness of arms, no gross weakness of legs. Medical Decision & Procedures ER Provider Diagnostic Interpretation: Radiology results have been interpreted by the radiologist and reviewed by me. CHEST ONE VIEW PORTABLE FINDINGS: Evaluation is suboptimal given difficulty with patient positioning. A right PICC, multilevel vertebral augmentation and left humeral internal fixation are noted. No pneumothorax or pleural effusion is noted. There is no evidence for pulmonary edema. Multiple bilateral rib fractures are again noted. Linear bibasilar opacities favor atelectasis. There is no evidence for pulmonary edema or pneumonia. IMPRESSION: Bibasilar opacities which favor atelectasis. No acute cardiopulmonary findings identified. Electronically signed by: Lewis Guzmán M.D. 12/20/2017 2:59 PM Dictated Date/Time: 12/20/2017 2:56 PM ABDOMEN AND PELVIS CT WITHOUT CONTRAST FINDINGS: Trace bilateral pleural effusions with consolidative right basilar opacities. Linear consolidative pleural-based opacities about the posterior basal segment left lower lobe suggest atelectasis/scarring. There is no pneumatosis or pneumoperitoneum identified. Imaged inferior cardiac chambers are moderately enlarged. Coronary arterial calcifications are noted. Distention of the gallbladder. There is streak artifact within the abdomen and pelvis from multilevel vertebroplasty changes. Decreased attenuation about the pancreatic head and uncinate process is likely artifactual. Liver is unremarkable without intrahepatic biliary ductal dilation. Spleen and adrenal glands are unremarkable. The pancreas is also within normal limits. Marked right and moderate left renal cortical thinning and parenchymal atrophy. No renal calculi or obstructive uropathy. Ureters and bladder are unremarkable. The uterus and adnexa are within normal limits. Advanced atherosclerosis of the aorta with bilateral renal arterial stent grafts. No pathologically enlarged lymph nodes are identified. There is no bowel obstruction. Colonic diverticulosis without diverticulitis. Moderate to marked stool volume extends from the cecum through the descending colon. Terminal ileum appears unremarkable. The visualized appendix appears unremarkable. Diastases recti. Subcutaneous varices about the mons pubis. Demineralized appearance of the bones. Intratrochanteric nail about the bilateral femora. Multiple remote compression deformities with vertebroplasty changes. T9 compression deformity without retropulsion appears unchanged from comparison chest CT. No sacral sufficiency fracture. IMPRESSION: 1. Constipation without bowel obstruction or focal bowel wall thickening. 2. Colonic diverticulosis without diverticulitis. 3. Moderate left and marked right renal cortical thinning with parenchymal atrophy. 4. Additional findings as above. Electronically signed by: Alejandro Mitchell M.D. 12/20/2017 5:53 PM Dictated Date/Time: 12/20/2017 5:45 PM Laboratory Results Test 12/20/17 00:00 12/20/17 15:45 12/20/17 20:00 12/20/17 20:12 Prothrombin Time 10.8 SECONDS (9.0-12.0) Prothromb Time International Ratio 1.0 (0.9-1.1) Magnesium Level 1.8 mg/dl (1.8-2.4) Total Bilirubin 0.4 mg/dl (0.2-1) Aspartate Amino Transf (AST/SGOT) 22 U/L (15-37) Alanine Aminotransferase (ALT/SGPT) 17 U/L (12-78) Alkaline Phosphatase 127 U/L (45-117) Pro-B-Type Natriuretic Peptide 2221 pg/ml (0-900) Total Protein 6.2 gm/dl (6.4-8.2) Albumin 3.2 gm/dl (3.4-5.0) Globulin 3.0 gm/dl (2.5-4.0) Albumin/Globulin Ratio 1.1 (0.9-2) Urine Color YELLOW Urine Appearance ERROR (CLEAR) Urine pH 8.5 (4.5-7.5) Urine Specific [place] 1.013 (1.000-1.030) Urine Protein NEG (NEG) Urine Glucose (UA) NEG (NEG) Urine Ketones NEG (NEG) Urine Occult Blood NEG (NEG) Urine Nitrite NEG (NEG) Urine Bilirubin NEG (NEG) Urine Urobilinogen NEG (NEG) Urine Leukocyte Esterase NEG (NEG) Troponin I < 0.015 ng/ml (0-0.045) Bedside Lactic Acid Venous 0.44 mmol/L (0.90-1.70) Laboratory results per my review. Medications Administered Medications (Trade) Dose Ordered Sig/Estephania Route Start Time Stop Time Status Last Admin Dose Admin Sodium Chloride 1,000 ml @ 200 mls/hr Q5H STAT IV 12/20/17 14:39 12/20/17 19:38 DC 12/20/17 14:39 200 MLS/HR Hydromorphone HCl (Dilaudid Inj) 1 mg Q15M PRN IV 12/20/17 15:00 12/20/17 23:50 DC 12/20/17 16:04 1 MG Ondansetron HCl (Zofran Inj) 4 mg NOW STAT IV 12/20/17 14:56 12/20/17 14:57 DC 12/20/17 14:56 4 MG Ondansetron HCl (Zofran Inj) 4 mg NOW STAT IV 12/20/17 19:03 12/20/17 19:04 DC 12/20/17 19:03 4 MG Hydromorphone HCl (Dilaudid Inj) 2 mg NOW STAT IV 12/20/17 19:10 12/20/17 19:12 DC 12/20/17 19:10 2 MG Phenazopyridine HCl (Pyridium Tab) 200 mg NOW STAT PO 12/20/17 19:10 12/20/17 19:12 DC 12/20/17 19:10 200 MG Sodium Chloride 1,000 ml @ 125 mls/hr Q8H STAT IV 12/20/17 19:25 12/20/17 23:50 DC 12/20/17 19:45 125 MLS/HR Ketorolac Tromethamine (Toradol Inj) 15 mg NOW STAT IV 12/20/17 19:26 12/20/17 19:27 DC 12/20/17 19:46 15 MG Ondansetron HCl (Zofran Inj) 4 mg Q6H PRN IV 12/20/17 21:15 01/19/18 21:14 12/21/17 06:03 4 MG Heparin Sodium (Porcine) (Heparin 100 Unit/ml 5ml Flush) 5 ml PRN PRN IV 12/20/17 21:15 01/19/18 21:14 12/21/17 13:47 5 ML ECG Per My Interpretation Indication: back/shoulder pain Rate (beats per minute): 66 Rhythm: sinus rhythm Findings: T-wave inversion (in V5, V6, and lead 3), no ectopy, other (Normal axis, normal intervals, baseline artifact noted) Comparison ECG Date: 06/25/2017 Change: Compared to prior, T wave inversions in V5 and V6 are new. ED Course 1438: The patient was evaluated in room C4. A complete history and physical exam was performed. 1456: Zofran Inj 4mg IV 1700: I reevaluated and updated the patient. She states that she "needs more Dilaudid." 170: Dilaudid Inj 2mg IV 1902: Zofran Inj 4mg IV 1909: Pyridium Tab 200mg PO, Dilaudid Inj 2mg IV 1911: I reevaluated and updated the patient. 1925: Toradol Inj 15mg IV 1929: Monurol 3gm PO 2008: Upon reevaluation, the patient is stable. I discussed the findings and the treatment plan with the patient. She expresses agreement and understanding. I [place] [facility] [place] The patient will be evaluated for further management. Medical Decision Differential diagnosis: Etiologies such as renal colic, appendicitis, diverticulitis, mesenteric ischemia, aortic pathology, infections, inflammatory bowel disease, PUD, biliary pathology, UTI, as well as others were entertained. Patient hemodynamically stable here, but complains of persistent pain. Urinalysis did not show obvious infection, however patient with persistent urinary symptoms and history of prior UTIs including E. coli ESBL. CT of the abdomen and pelvis otherwise unremarkable no evidence of obstructive pathology. Patient is noted to be slightly constipated which may be contributing to pain. Patient with chronic leukocytosis secondary to steroid use, however tonight's levels slightly higher than usual. Patient was hydrated and started on antibiotics. Blood cultures drawn as a precaution. Difficulty controlling patient's increased pain and urinary symptoms. Due to concern for evolving infection, advanced age, comorbid conditions, case discussed with hospitalist for additional evaluation and treatment. I do not suspect a concurrent pulmonary infection, no evidence of GI infection. I do not suspect bacteremia/ sepsis. Medication Reconcilliation Current Medication List: was personally reviewed by me Blood Pressure Screening Patient's blood pressure: Elevated blood pressure Elevated blood pressure will be monitored by hospitalist. Consults Time Called: 2004 Consulting Physician: Dr. Carrillo - [place], [facility] [place] Returned Call: 2007 I reviewed the patient's case with Dr. Carrillo. He will evaluate the patient for further management. Impression Primary Impression: Dysuria Additional Impressions: Abdominal pain Back pain Chronic, continuous use of opioids Leukocytosis Constipation Scribe Attestation The scribe's documentation has been prepared under my direction and personally reviewed by me in its entirety. I confirm that the note above accurately reflects all work, treatment, procedures, and medical decision making performed by me. Departure Information Dispostion Being Evaluated By Hospitalist Referrals Marti Vila (PCP) Patient Instructions [facility] Problem Qualifiers Additional Impressions: Abdominal pain Abdominal location: lower abdomen, unspecified Qualified Codes: R10.30 - Lower abdominal pain, unspecified Back pain Back pain location: low back pain Chronicity: acute Back pain laterality: bilateral Sciatica presence: without sciatica Qualified Codes: M54.5 - Low back pain Leukocytosis Leukocytosis type: unspecified Qualified Codes: D72.829 - Elevated white blood cell count, unspecified Constipation Constipation type: unspecified constipation type Qualified Codes: K59.00 - Constipation, unspecified
[2017-12-20] MEDS ORDERED: SODIUM CHLORIDE 0.9% 1000ML 1,000 ML IV STA ×2 (14:39→19:25)
[2017-12-20] MEDS ORDERED: ONDANSETRON INJ 2 MG/ML 2 ML VIAL IV STA ×2 (14:56→19:03)
--- NOTE | 2017-12-20 15:00 | DIAGNOSTIC IMAGING REPORT ---
CHEST ONE VIEW PORTABLE CLINICAL HISTORY: Nausea and vomiting. COMPARISON STUDY: Chest CT August 10, 2017 and chest radiograph August 11, 2017. FINDINGS: Evaluation is suboptimal given difficulty with patient positioning. A right PICC, multilevel vertebral augmentation and left humeral internal fixation are noted. No pneumothorax or pleural effusion is noted. There is no evidence for pulmonary edema. Multiple bilateral rib fractures are again noted. Linear bibasilar opacities favor atelectasis. There is no evidence for pulmonary edema or pneumonia. IMPRESSION: Bibasilar opacities which favor atelectasis. No acute cardiopulmonary findings identified. Electronically signed by: Lewis Guzmán M.D. 12/20/2017 2:59 PM Dictated Date/Time: 12/20/2017 2:56 PM
[2017-12-20] MEDS ORDERED: SUMA25TA12 PO (15:03)
[2017-12-20] MEDS ORDERED: PSEU60TA80 PO (15:03)
[2017-12-20] MEDS ORDERED: NITR50CA4 PO (15:03)
[2017-12-20 15:55] LABS: ALBUMIN 3.2 gm/dl (3.4-5.0); CALCIUM 9.3 mg/dl (8.5-10.1); CREATININE 1.19 mg/dl (0.60-1.20); POTASSIUM 4.5 mmol/L (3.5-5.1); TOTAL PROTEIN 6.2 gm/dl (6.4-8.2)
[2017-12-20 16:01] LABS: HEMATOCRIT 38.7 % (37-47); HEMOGLOBIN 11.9 g/dL (12.0-16.0); MEAN CELL VOLUME 99.7 fL (80-100); MEAN CORPUSCULAR HEMOGLOBIN 30.7 pg (25-34); MEAN CORPUSCULAR HGB CONC 30.7 g/dl (32-36); RED CELL DISTRIBUTION WIDTH CV 15.9 % (11.5-14.5); RED CELL DISTRIBUTION WIDTH SD 56.8 fL (36.4-46.3); WHITE BLOOD COUNT 14.11 K/uL (4.8-10.8)
[2017-12-20] MEDS: HYDROmorphone INJ 1 MG/ML SYR IV PRN ×2 (16:03→16:04)
[2017-12-20 16:08] LABS: BASO % 0.2 %; BASO ABS # 0.03 K/uL (0-0.2); EOS % 0.8 %; EOS ABS # 0.11 K/uL (0-0.5); LYMPH ABS # 1.27 K/uL (1.2-3.4); MEAN PLATELET VOLUME 12.6 fL (7.4-10.4); MONO % 4.5 %; MONO ABS # 0.64 K/uL (0.11-0.59); NEUT % 84.8 %; NEUT ABS # 11.96 K/uL (1.4-6.5); PLATELET COUNT 128 K/uL (130-400)
[2017-12-20] MEDS ORDERED: OPTIRAY 320 IV PRN (16:30)
[2017-12-20] MEDS ORDERED: HYDROmorphone INJ 1 MG/ML SYR IV STA ×2 (17:01→19:10)
--- NOTE | 2017-12-20 17:55 | DIAGNOSTIC IMAGING REPORT ---
ABDOMEN AND PELVIS CT WITHOUT CONTRAST CT DOSE: 288.42 mGy.cm HISTORY: Acute lower abdominal pain with back pain and urinary tract infection low abd pain, back pain, hx uti TECHNIQUE: Multiaxial CT images of the abdomen and pelvis were performed without contrast. A dose lowering technique was utilized adhering to the principles of ALARA. COMPARISON STUDY: CT abdomen and pelvis 06/25/2017, CT chest 08/10/2017. . FINDINGS: Trace bilateral pleural effusions with consolidative right basilar opacities. Linear consolidative pleural-based opacities about the posterior basal segment left lower lobe suggest atelectasis/scarring. There is no pneumatosis or pneumoperitoneum identified. Imaged inferior cardiac chambers are moderately enlarged. Coronary arterial calcifications are noted. Distention of the gallbladder. There is streak artifact within the abdomen and pelvis from multilevel vertebroplasty changes. Decreased attenuation about the pancreatic head and uncinate process is likely artifactual. Liver is unremarkable without intrahepatic biliary ductal dilation. Spleen and adrenal glands are unremarkable. The pancreas is also within normal limits. Marked right and moderate left renal cortical thinning and parenchymal atrophy. No renal calculi or obstructive uropathy. Ureters and bladder are unremarkable. The uterus and adnexa are within normal limits. Advanced atherosclerosis of the aorta with bilateral renal arterial stent grafts. No pathologically enlarged lymph nodes are identified. There is no bowel obstruction. Colonic diverticulosis without diverticulitis. Moderate to marked stool volume extends from the cecum through the descending colon. Terminal ileum appears unremarkable. The visualized appendix appears unremarkable. Diastases recti. Subcutaneous varices about the mons pubis. Demineralized appearance of the bones. Intratrochanteric nail about the bilateral femora. Multiple remote compression deformities with vertebroplasty changes. T9 compression deformity without retropulsion appears unchanged from comparison chest CT. No sacral sufficiency fracture. IMPRESSION: 1. Constipation without bowel obstruction or focal bowel wall thickening. 2. Colonic diverticulosis without diverticulitis. 3. Moderate left and marked right renal cortical thinning with parenchymal atrophy. 4. Additional findings as above. Electronically signed by: Alejandro Mitchell M.D. 12/20/2017 5:53 PM Dictated Date/Time: 12/20/2017 5:45 PM
[2017-12-20] MEDS ORDERED: PHENAZOPYRIDINE HCL 200 MG TAB PO STA (19:10)
[2017-12-20] MEDS ORDERED: KETOROLAC TROMETHAMINE 30 MG/ML VIAL IV STA (19:26)
[2017-12-20] MEDS ORDERED: FOSFOMYCIN TROMETHAMINE 3 GM PACKET PO ONE (19:30)
--- NOTE | 2017-12-20 20:39 | History and Physical ---
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 for Ecoli ESBL) s/p picc line in right arm for abx x 8 wks ago for urinary tract infection, presenting with urinary symptoms x 3 days, including dysuria, urinary frequency bladder discomfort, bilateral flank pain. Patient has been on Doxycycline x 1 week for a sinus infection. She reprots no improvement in symptoms including sinus headache, rhinorrhea, facial pressure. She also vomiting following initiation of doxycycline, weakness She nestor sob or cough, chest pain, calf pain. She denies fevers but reports chills at home. She denies diarrhea, constipation. In the ED, Patient arrived afebrile, normotensive,, saturating well on 3 L. Patent a WBC Ct of 14.11, proBNP 2221, electrolytes wnl, UA unremarkable, Blood cx pending, CXR with bibasilar opacities attributed likely to atelectasis, CT abdomen showing bowel constipation. She received Fosfomycin, Toradol, 15 mg, Dilaudid, 2 mg IV x 2 1L of NS. Past Medical/Surgical History Medical Problems: (1) Acute kidney injury superimposed on chronic kidney disease (2) Acute respiratory failure with hypoxia (3) Altered mental status (4) Altered mental status (5) Ambulatory dysfunction (6) Anemia (7) Bilateral pneumonia (8) CHF (congestive heart failure) (9) Cholelithiases (10) Chronic kidney disease (CKD) stage G3a/A1, moderately decreased glomerular filtration rate (GFR) between 45-59 mL/min/1.73 square meter and albuminuria creatinine ratio less than 30 mg/g (11) Chronic Kidney Disease, Stage Iii (Moderate) (12) Compression fracture of fourth lumbar vertebra (13) COPD (chronic obstructive pulmonary disease) (14) COPD exacerbation (15) COPD exacerbation (16) Crystal arthritis (17) Dehydration (18) Dehydration (19) Duodenal bulb ulcer (20) DVT (deep venous thrombosis) (21) Elevated serum creatinine (22) Failure of outpatient treatment (23) Failure of outpatient treatment (24) Fecal impaction of colon (25) Fever (26) Fracture of right olecranon process (27) Gallbladder dilatation (28) Generalized weakness (29) Gout (30) Gout attack (31) Headache (32) Hodgkins lymphoma (33) Humerus fracture (34) Hyperlipidemia Nec/Nos (35) Hypertension (36) Hypertension (37) Hypertensive urgency (38) Hypoxemia (39) Hypoxia (40) Hypoxia (41) Hypoxia (42) Hypoxia (43) Intractable pain (44) Knee pain (45) Left renal artery stenosis (46) Lethargy (47) Lower extremity edema (48) Lumbar compression fracture (49) Malignant HTN with heart disease, 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, with chronic kidney disease (50) Mucus plugging of bronchi (51) Narcotic withdrawal (52) Nausea & vomiting (53) Olecranon fracture (54) Opiate use (55) Opioid dependence (56) Osteoporosis (57) Perforated duodenal ulcer (58) Peripheral edema (59) PNA (pneumonia) (60) Pneumonia (61) Pneumonia (62) Pneumonia (63) Pneumonia involving right lung (64) Renal artery stenosis (65) Renal insufficiency (66) Respiratory acidosis (67) Respiratory distress (68) right hand cellulitis (69) Right renal artery stenosis (70) Rigors (71) Secondary hyperparathyroidism (72) Sepsis secondary to UTI (73) Stage 3 chronic kidney disease (74) Thrush, oral (75) UTI (urinary tract infection) (76) UTI (urinary tract infection) (77) UTI (urinary tract infection) (78) Wedge compression fracture of T11 vertebra Surgical Problems: (1) History of kyphoplasty (2) left renal artery stent placement Family History Heart disease Social History Smoking Status: Former Smoker Smokeless Tobacco Use: No Alcohol Use: none Drug Use: none Marital Status: Housing status: group home Occupational Status: disabled Immunizations History of Influenza Vaccine: Yes Influenza Vaccine Date: Mar 01, 2013 History of Tetanus Vaccine?: Yes Tetanus Immunization Date: Dec 18, 2009 History of Pneumococcal: Yes Pneumococcal Date: Jun 01, 2012 History of Hepatitis B Vaccine: No Allergies Coded Allergies: Squash (Verified Allergy, Unknown, Zucchini, 12/20/17) Azithromycin (Verified Adverse Reaction, Mild, nausea, 12/22/17) Levofloxacin (Verified Adverse Reaction, Mild, nausea, 12/22/17) Home Medications Scheduled Allopurinol (Zyloprim), 100 MG PO BID Baclofen (Lioresal), 10 MG PO TID Calcitonin [place] (Calcitonin-[place]), 1 SPRAY ERIC QAM Carvedilol (Coreg), 25 MG PO BID Cholecalciferol (D-1000), 4,000 UNITS PO QAM Clopidogrel Bisulfate (Plavix), 75 MG PO QAM Duloxetine HCl (Cymbalta), 30 MG PO QAM Ferrous Sulfate (Kp Ferrous Sulfate), 325 MG PO BID Fluticasone Prop/Salmeterol (Advair Diskus 250/50 60 Dose), 1 PUFFS INH BID Heparin Sod (Porcine) (Heparin 100 Unit/Ml 5ML Flush), 5 ML IV PRN Hydralazine HCl (Hydralazine HCl), 10 MG PO TID Ipratropium-Albuterol (Combivent Respimat), 1 PUFFS INH QID Loratadine (Claritin), 10 MG PO DAILY Methadone HCl (Methadone HCl), 30 MG PO TID Mirtazapine (Remeron), 15 MG PO HS Multivitamin (Multivitamin), 1 TAB PO QAM Nifedipine (Procardia Xl Ext Rel), 30 MG PO QAM Nitrofurantoin Macrocrystal (Nitrofurantoin Macrocryst), 50 MG PO DAILY Nystatin (Topical) (Nystop), 1 APPLN TOP BID Pantoprazole (Protonix), 40 MG PO BID Polyethylene Glycol 3350 (Miralax), 17 GM PO QAM Potassium Chloride (Micro-K Ext Rel), 10 MEQ PO QAM Prednisone (Prednisone), 2.5 MG PO DAILY Probiotic Product (Probiotic), 250 MG PO BID Probiotic Product (Probiotic), 250 MG PO DAILY Pseudoephedrine-Guaifenesin (Mucinex D), 1 TAB PO BID Sennosides (Senokot), 8.6 MG PO QAM Sodium Chloride ([place] Saline Nasal), 1 APPLN ERIC BID Sumatriptan Succinate (Imitrex), 25 MG PO PRN Thiamine HCl (Vitamin B-1), 200 MG PO QAM Tiotropium [place] (Spiriva [place]), 1 CAP INH DAILY Scheduled PRN Acetaminophen (Tylenol), 650 MG PO Q6 PRN for Pain or Fever Albuterol Sulfate (Albuterol Sulfate), 1 VIAL NEB Q4 PRN for SOB/Wheezing Bisacodyl (Dulcolax), 1 SUPP MI UD PRN for Constipation Doxepin HCl (Antipruritic) (Doxepin Hydrochloride), 1 APPLN TOP Q6 PRN for Pain Epinephrine (Epipen), 0.3 MG IM UD PRN for ALLERGIC REACTION Lidocaine (Anorectal) (Lidocaine), 1 APPLN TOP Q6 PRN for Pain Loperamide Hcl (Imodium), 2 MG PO Q6 PRN for LOOSE STOOLS Magnesium Hydroxide (Milk Of Magnesia), 30 ML PO UD PRN for Constipation Mineral Oil (Enema Mineral Oil), 1 BTL MI UD PRN for Constipation Ondansetron (Ondansetron Hcl), 4 MG IV Q6 PRN for Nausea or Vomiting Ondasetron Odt (Zofran Odt), 4 MG SL Q6H PRN for Nausea Promethazine (Phenergan Suppository), 25 MG MI Q6H PRN for Nausea Saline (Saline Nasal [place]), 2 SPRAYS ERIC Q8 PRN for Nasal Congestion Miscellaneous Medications Dextrose (Diabetic Use) (Insta-Glucose), 1 APPLN PO Glucagon (Glucagon Emergency Kit), 1 APPLN IM Physical Exam Vital Signs Date Time Temp Pulse Resp B/P (MAP) Pulse Ox O2 Delivery O2 Flow Rate FiO2 12/20/17 18:05 88 18 143/79 93 Nasal Cannula 3.0 12/20/17 14:19 37.0 74 18 140/74 92 Nasal Cannula 3.0 GENERAL: alert, well appearing EYE EXAM: normal conjunctiva, PERRL and EOM's grossly intact OROPHARYNX: no exudate, no erythema, lips, buccal mucosa, and tongue normal and mucous membranes are moist NECK: supple, no nuchal rigidity, no adenopathy, non-tender LUNGS: Bibasilar crackles HEART: no murmurs, S1 normal and S2 normal ABDOMEN: abdomen soft, Suprapubic tenderness normo-active bowel sounds, no masses, no rebound or guarding. BACK: Kyphosis SKIN: no rashes and no bruising UPPER EXTREMITIES: upper extremities are grossly normal. LOWER EXTREMITIES: No pitting edema. NEURO EXAM: Normal sensorium, cranial nerves II-XII grossly intact, normal speech, no gross weakness of arms, no gross weakness of legs. Diagnostics Laboratory Results Results Past 24 Hours Test 12/20/17 00:00 12/20/17 15:45 12/20/17 20:00 12/20/17 20:12 Range/Units White Blood Count 14.11 4.8-10.8 K/uL Red Blood Count 3.88 4.2-5.4 M/uL Hemoglobin 11.9 12.0-16.0 g/dL Hematocrit 38.7 37-47 % Mean Corpuscular Volume 99.7 80-100 fL Mean Corpuscular Hemoglobin 30.7 25-34 pg Mean Corpuscular Hemoglobin Concent 30.7 32-36 g/dl Platelet Count 128 130-400 K/uL Mean Platelet Volume 12.6 7.4-10.4 fL Neutrophils (%) (Auto) 84.8 % Lymphocytes (%) (Auto) 9.0 % Monocytes (%) (Auto) 4.5 % Eosinophils (%) (Auto) 0.8 % Basophils (%) (Auto) 0.2 % Neutrophils # (Auto) 11.96 1.4-6.5 K/uL Lymphocytes # (Auto) 1.27 1.2-3.4 K/uL Monocytes # (Auto) 0.64 0.11-0.59 K/uL Eosinophils # (Auto) 0.11 0-0.5 K/uL Basophils # (Auto) 0.03 0-0.2 K/uL RDW Standard Deviation 56.8 36.4-46.3 fL RDW Coefficient of Variation 15.9 11.5-14.5 % Immature Granulocyte % (Auto) 0.7 % Immature Granulocyte # (Auto) 0.10 0.00-0.02 K/uL Platelet Estimate NORMAL Basophilic Stippling 1+ Stomatocytes 2+ Prothrombin Time 10.8 9.0-12.0 SECONDS Prothromb Time International Ratio 1.0 0.9-1.1 Sodium Level 144 136-145 mmol/L Potassium Level 4.5 3.5-5.1 mmol/L Chloride Level 102 98-107 mmol/L Carbon Dioxide Level 39 21-32 mmol/L Anion Gap 3.0 3-11 mmol/L Blood Urea Nitrogen 30 7-18 mg/dl Creatinine 1.19 0.60-1.20 mg/dl Est Creatinine Clear Calc Drug Dose 32.6 ml/min Estimated GFR () 53.6 Estimated GFR (Non- 46.2 BUN/Creatinine Ratio 25.3 10-20 Random Glucose 98 70-99 mg/dl Calcium Level 9.3 8.5-10.1 mg/dl Magnesium Level 1.8 1.8-2.4 mg/dl Total Bilirubin 0.4 0.2-1 mg/dl Aspartate Amino Transf (AST/SGOT) 22 15-37 U/L Alanine Aminotransferase (ALT/SGPT) 17 12-78 U/L Alkaline Phosphatase 127 45-117 U/L Pro-B-Type Natriuretic Peptide 2221 0-900 pg/ml Total Protein 6.2 6.4-8.2 gm/dl Albumin 3.2 3.4-5.0 gm/dl Globulin 3.0 2.5-4.0 gm/dl Albumin/Globulin Ratio 1.1 0.9-2 Urine Color YELLOW Urine Appearance ERROR CLEAR Urine pH 8.5 4.5-7.5 Urine Specific [place] 1.013 1.000-1.030 Urine Protein NEG NEG Urine Glucose (UA) NEG NEG Urine Ketones NEG NEG Urine Occult Blood NEG NEG Urine Nitrite NEG NEG Urine Bilirubin NEG NEG Urine Urobilinogen NEG NEG Urine Leukocyte Esterase NEG NEG Bedside Lactic Acid Venous 0.44 0.90-1.70 mmol/L Microbiology Results 12/20/17 Blood Culture, Received Pending 12/20/17 Blood Culture, Received Pending Impression Assessment and Plan 72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 for Ecoli ESBL) s/p picc line in right arm for abx x 8 wks ago for urinary tract infection, presenting with urinary symptoms x 3 days In the ED, Patient arrived afebrile, normotensive,, saturating well on 3 L. Patent a WBC Ct of 14.11, proBNP 2221, electrolytes wnl, UA unremarkable, Blood cx pending, CXR with bibasilar opacities attributed likely to atelectasis, CT abdomen showing bowel constipation. She received Fosfomycin, Toradol, 15 mg, Dilaudid, 2 mg IV x 2 1L of NS. Suspected UTI - urinary symptoms x 3 days - UA unremarkable but given notable symptoms and recurrent h/o UTI with EColi ESBL previously on Urine cx - Given Fosfomycin in ED - Start Imipenem Cilastain - F/u Urine, Blood cx Diastolic CHF , HTN - Coreg 25 mg BID, Hydralazine 10 mg TID COPD - not in exacerbation - Continue O2, steroids,. INH Hyperparathyroidism - Calcitonin Gout - Allopurinol Chronic Pain - Continue home Methadone Depression - Mirtazapine DVT PPX Disposition: Med/Surg Attending addendum: I have physically seen this patient, have supervised the medical residents activities, and agree with the H&P unless as otherwise noted. Assessment and Plan: Recurrent urinary tract infection/history ESBL E. coli. Given fosfomycin in ED. Placed on Primaxin 500 mg IV every 8 hours. Follow urine culture and blood cultures. Hypertension/diastolic CHF-- Continue hydralazine 10 mg p.o. 3 times daily and Coreg 25 mg p.o. twice daily with hold parameters. COPD--at baseline. Continue oxygen, prednisone and usual inhaler regimen. Remainder of notes and orders as above. Advanced Directives Existing Advance Directive: No Existing Living Will: No Existing Power of Tower Attendant: No Resuscitation Status VTE Prophylaxis Will order VTE Prophylaxis: Yes Social Service Consult Lives in [facility] Note Total Time: Critical Care 30 - 74 minutes Resident Tracking Resident Involvement: Resident Care Provided Care Provided: Adult Hospital Medicine
[2017-12-20] MEDS ORDERED: MAGNESIUM HYDROXIDE SUSP 30 ML UDC PO PRN (21:15)
[2017-12-20] MEDS ORDERED: SUMATRIPTAN SUCCINATE 25 MG TAB PO PRN (21:15)
[2017-12-20] MEDS ORDERED: POLYETHYLENE (MIRALAX) 17 GM PACK PO PRN (21:15)
[2017-12-20] MEDS ORDERED: ACETAMINOPHEN 325 MG TAB PO PRN ×2 (21:15)
[2017-12-20] MEDS ORDERED: IMIPENEM/CILASTATIN IV 500 MG in DEXTROSE 5% 100ML 100 ML IV SCH (21:15)
[2017-12-20] MEDS ORDERED: ALUMINUM/MAGNESIUM/SIMETH (MAALOX MAX) 30 ML UDC PO PRN (21:15)
[2017-12-20] MEDS ORDERED: IMIPENEM/CILASTATIN CONSULT ACTIVE PRN (23:45)
[2017-12-21] MEDS ORDERED: HYDROmorphone INJ 2 MG/ML SYR/VIAL IV ONE (00:47)
[2017-12-21] MEDS: IMIPENEM/CILASTATIN IV 300 MG in DEXTROSE 5% 100ML 100 ML IV SCH ×4 (00:48→17:34)
[2017-12-21 00:57] VITALS: BP 123/69; PULSE 69; TEMP 36.8; O2SAT 92; Ht 149.9 cm; Wt 53.6 kg
[2017-12-21] MEDS: HYDROmorphone INJ 2 MG/ML SYR/VIAL IV PRN ×2 (05:40→10:24)
[2017-12-21] MEDS: ONDANSETRON INJ 2 MG/ML 2 ML VIAL IV PRN ×2 (06:03→21:39)
[2017-12-21 06:26] LABS: HEMATOCRIT 37.3 % (37-47); HEMOGLOBIN 11.3 g/dL (12.0-16.0); MEAN CELL VOLUME 99.7 fL (80-100); MEAN CORPUSCULAR HEMOGLOBIN 30.2 pg (25-34); MEAN CORPUSCULAR HGB CONC 30.3 g/dl (32-36); MEAN PLATELET VOLUME 12.2 fL (7.4-10.4); PLATELET COUNT 127 K/uL (130-400); RED CELL DISTRIBUTION WIDTH SD 57.8 fL (36.4-46.3); WHITE BLOOD COUNT 10.89 K/uL (4.8-10.8)
[2017-12-21 06:54] LABS: BASO % 0.3 %; BASO ABS # 0.03 K/uL (0-0.2); EOS ABS # 0.33 K/uL (0-0.5); IG# 0.06 K/uL (0.00-0.02); LYMPH % 13.7 %; LYMPH ABS # 1.49 K/uL (1.2-3.4); MONO % 10.1 %; NEUT % 72.3 %; NEUT ABS # 7.88 K/uL (1.4-6.5)
[2017-12-21 06:58] LABS: CALCIUM 8.5 mg/dl (8.5-10.1); CREATININE 1.02 mg/dl (0.60-1.20); POTASSIUM 3.8 mmol/L (3.5-5.1)
[2017-12-21 07:06] VITALS: BP 195/103; TEMP 37.1; O2SAT 93
[2017-12-21] MEDS ORDERED: BISACODYL 5 MG TABEC PO ONE (07:45)
[2017-12-21 08:47] VITALS: BP 193/105; PULSE 76
[2017-12-21] MEDS: METHADONE HCL 10 MG TAB PO SCH ×3 (08:51→21:29)
[2017-12-21] MEDS: HydrALAZINE 10 MG TAB PO SCH ×3 (08:52→21:29)
[2017-12-21] MEDS: CARVEDILOL 25 MG TAB PO SCH ×2 (08:52→21:29)
[2017-12-21] MEDS: BACLOFEN 10 MG TAB PO SCH ×3 (08:52→21:29)
[2017-12-21] MEDS: CLOPIDOGREL BISULFATE 75 MG TAB PO SCH (08:52)
[2017-12-21] MEDS: CALCITONIN SALMON NA 200 IU/AC 3.7 ML BTL NAE SCH (08:59)
[2017-12-21] MEDS: ALLOPURINOL 100 MG TAB PO SCH ×2 (09:00→21:30)
[2017-12-21] MEDS: DULOXETINE (CYMBALTA) 30 MG CAP PO SCH (09:00)
[2017-12-21] MEDS: SENNA 8.6 MG TAB PO SCH (09:00)
[2017-12-21] MEDS: LORATADINE 10 MG TAB PO SCH (09:00)
[2017-12-21] MEDS: THIAMINE HCL 100 MG TAB PO SCH (09:00)
[2017-12-21] MEDS: PANTOprazole SOD 40 MG TAB PO SCH ×2 (09:00→21:29)
[2017-12-21] MEDS ORDERED: NIFEdipine 30 MG CR TAB PO SCH (09:00)
[2017-12-21] MEDS: FLUTICASONE/SALMETEROL 250/50 (ADVAIR) 14 PUFF/1 INHALER INH SCH ×2 (09:02→21:28)
[2017-12-21] MEDS: TIOTROPIUM BROMIDE 5 PUFF/90 MCG INH INH SCH (09:02)
[2017-12-21] MEDS: IPRATROPIUM BROMIDE/ALBUTEROL respimat INH INH SCH ×4 (09:02→21:28)
[2017-12-21] MEDS: HEPARIN SOD 5000 UNIT/0.5 ML CARP SQ SCH ×2 (09:06→21:30)
--- NOTE | 2017-12-21 10:22 | Medical Consult ---
Consultation Date of Consultation: Dec 21, 2017. Attending Physician: Juan Nance MD Reason for Consultation: History of ESBL UTI, urinary symptoms History of Present Illness 72-year-old female well-known to the infectious disease service with history of recurrent urinary tract infections, hypertension, hyperlipidemia, COPD, chronic kidney disease, chronic pain syndrome, who was recently treated for sinus infection with doxycycline, presents with 1 week of progressively worsening symptoms of dysuria, frequency, lower abdominal and flank pain, which she feels is consistent with prior urinary tract infections. Of note, recent urinalysis not suggestive of infection and culture was negative. Urinalysis here also not consistent with infection. She was started empirically on imipenem. Does not been running fever though she states that she never gets fever. Symptoms are unchanged. Patient also complaining of one-month history of persistent headache. Past Medical/Surgical History Medical Problems: (1) Abdominal pain Status: Acute (2) Acute kidney injury superimposed on chronic kidney disease Status: Acute (3) Altered mental status Status: Acute (4) Anemia Status: Acute (5) Back pain Status: Acute (6) Bilateral pneumonia Status: Acute (7) CHF (congestive heart failure) Status: Acute (8) Chronic Kidney Disease, Stage Iii (Moderate) Status: Chronic (9) Chronic, continuous use of opioids Status: Acute (10) COPD exacerbation Status: Acute (11) COPD exacerbation Status: Acute (12) Crystal arthritis Status: Chronic (13) Dehydration Status: Acute (14) Dehydration Status: Acute (15) Duodenal bulb ulcer Status: Chronic (16) Dysuria Status: Acute (17) Failure of outpatient treatment Status: Acute (18) Failure of outpatient treatment Status: Acute (19) Gallbladder dilatation Status: Acute (20) Generalized weakness Status: Acute (21) Gout Status: Chronic (22) Hyperlipidemia Nec/Nos Status: Chronic (23) Hypertension Status: Chronic (24) Hypoxemia Status: Acute (25) Hypoxia Status: Acute (26) Hypoxia Status: Acute (27) Hypoxia Status: Acute (28) Hypoxia Status: Acute (29) Lumbar compression fracture Status: Chronic (30) Nausea & vomiting Status: Acute (31) Opiate use Status: Chronic (32) Osteoporosis Status: Chronic (33) Peripheral edema Status: Acute (34) Pneumonia Status: Acute (35) Pneumonia Status: Acute (36) Pneumonia involving right lung Status: Acute (37) Renal insufficiency Status: Acute (38) Respiratory acidosis Status: Acute (39) Respiratory distress Status: Acute (40) Right renal artery stenosis Status: Chronic (41) Secondary hyperparathyroidism Status: Chronic (42) UTI (urinary tract infection) Status: Acute Medical Problems: (1) Acute respiratory failure with hypoxia (2) Altered mental status (3) Ambulatory dysfunction (4) Cholelithiases (5) Chronic kidney disease (CKD) stage G3a/A1, moderately decreased glomerular filtration rate (GFR) between 45-59 mL/min/1.73 square meter and albuminuria creatinine ratio less than 30 mg/g (6) Chronic Kidney Disease, Stage Iii (Moderate) (7) Compression fracture of fourth lumbar vertebra (8) COPD (chronic obstructive pulmonary disease) (9) Crystal arthritis (10) Duodenal bulb ulcer (11) DVT (deep venous thrombosis) (12) Fecal impaction of colon (13) Fever (14) Fracture of right olecranon process (15) Gout (16) Gout attack (17) Headache (18) Hodgkins lymphoma (19) Humerus fracture (20) Hyperlipidemia Nec/Nos (21) Hypertension (22) Hypertension (23) Hypertensive urgency (24) Intractable pain (25) Knee pain (26) Left renal artery stenosis (27) Lethargy (28) Leukocytosis (29) Lower extremity edema (30) Lumbar compression fracture (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, 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, with chronic kidney disease (32) Mucus plugging of bronchi (33) Narcotic withdrawal (34) Opiate use (35) Opioid dependence (36) Osteoporosis (37) Perforated duodenal ulcer (38) PNA (pneumonia) (39) Pneumonia (40) Renal artery stenosis (41) right hand cellulitis (42) Right renal artery stenosis (43) Rigors (44) Secondary hyperparathyroidism (45) Sepsis secondary to UTI (46) Stage 3 chronic kidney disease (47) Thrush, oral (48) UTI (urinary tract infection) (49) UTI (urinary tract infection) (50) Wedge compression fracture of T11 vertebra Surgical Problems: (1) History of kyphoplasty (2) left renal artery stent placement Family History Heart disease Social History Smoking Status: Former Smoker Drug Use: none Marital Status: Housing Status: lives with family Occupation Status: disabled Allergies Coded Allergies: Squash (Verified Allergy, Unknown, Zucchini, 12/20/17) Azithromycin (Verified Adverse Reaction, Unknown, nausea, 12/20/17) Levofloxacin (Verified Adverse Reaction, Unknown, nausea, 12/20/17) Current Inpatient Medications Current Inpatient Medications Medications (Trade) Dose Ordered Sig/Estephania Route Start Time Stop Time Status Last Admin Dose Admin Ioversol (Optiray 320) 125 ml UD PRN IV 12/20/17 16:30 12/24/17 16:29 Acetaminophen (Tylenol Tab) 650 mg Q4H PRN PO 12/20/17 21:15 01/19/18 21:14 Al Hydrox/Mg Hydrox/Simethicone (Maalox Max Susp) 15 ml Q4H PRN PO 12/20/17 21:15 01/19/18 21:14 Magnesium Hydroxide (Milk Of Magnesia Susp) 30 ml Q6H PRN PO 12/20/17 21:15 01/19/18 21:14 Polyethylene (Miralax Powder Packet) 17 gm DAILY PRN PO 12/20/17 21:15 01/19/18 21:14 Ondansetron HCl (Zofran Inj) 4 mg Q6H PRN IV 12/20/17 21:15 01/19/18 21:14 12/21/17 06:03 4 MG Heparin Sodium (Porcine) (Heparin Sq 5000 Unit/0.5ml) 5,000 unit Q12H SQ 12/21/17 09:00 01/20/18 08:59 12/21/17 09:06 5,000 UNIT Allopurinol (Zyloprim Tab) 100 mg BID PO 12/21/17 09:00 01/20/18 08:59 Baclofen (Lioresal Tab) 10 mg TID PO 12/21/17 09:00 01/20/18 08:59 12/21/17 08:52 10 MG Calcitonin [place] (Fortical Nasal [place]) 1 spray QAM ERIC 12/21/17 09:00 01/20/18 08:59 Carvedilol (Coreg Tab) 25 mg BID PO 12/21/17 09:00 01/20/18 08:59 12/21/17 08:52 25 MG Clopidogrel Bisulfate (plAVix TAB) 75 mg QAM PO 12/21/17 09:00 01/20/18 08:59 12/21/17 08:52 75 MG Duloxetine HCl (Cymbalta Cap) 30 mg QAM PO 12/21/17 09:00 01/20/18 08:59 Salmeterol Xinafoate/ Fluticasone (Advair Diskus 250/50 Inh) 1 puff BID INH 12/21/17 09:00 01/20/18 08:59 12/21/17 09:02 1 PUFF Heparin Sodium (Porcine) (Heparin 100 Unit/ml 5ml Flush) 5 ml PRN PRN IV 12/20/17 21:15 01/19/18 21:14 12/21/17 06:14 5 ML Hydralazine HCl (Apresoline Tab) 10 mg TID PO 12/21/17 09:00 01/20/18 08:59 12/21/17 08:52 10 MG Albuterol/ Ipratropium (Combivent Respimat Inh) 1 puffs QID INH 12/21/17 09:00 01/20/18 08:59 12/21/17 09:02 1 PUFFS Loratadine (Claritin Tab) 10 mg DAILY PO 12/21/17 09:00 01/20/18 08:59 Mirtazapine (Remeron Tab) 15 mg HS PO 12/21/17 21:00 01/20/18 20:59 Nifedipine (Procardia Xl Tab) 30 mg QAM PO 12/21/17 09:00 01/20/18 08:59 12/21/17 08:52 30 MG Pantoprazole Sodium (Protonix Tab) 40 mg BID PO 12/21/17 09:00 01/20/18 08:59 Prednisone (PredniSONE TAB) 2.5 mg DAILY PO 12/21/17 09:00 01/20/18 08:59 Senna (Senokot Tab) 8.6 mg QAM PO 12/21/17 09:00 01/20/18 08:59 Sumatriptan Succinate (Imitrex Tab) 25 mg DAILY PRN PO 12/20/17 21:15 01/19/18 21:14 Thiamine HCl (Vitamin B-1 Tab) 200 mg QAM PO 12/21/17 09:00 01/20/18 08:59 Tiotropium [place] (Spiriva Handihaler Inhaler) 1 puff DAILY INH 12/21/17 09:00 01/20/18 08:59 12/21/17 09:02 1 PUFF Methadone HCl (Dolophine Tab) 30 mg TID PO 12/21/17 09:00 01/04/18 08:59 12/21/17 08:51 30 MG Imipenem/ Cilastatin Sodium (Consult) 1 ea UD PRN N/A 12/20/17 23:45 01/19/18 23:44 Imipenem/ Cilastatin Sodium 300 mg/Dextrose 106 ml @ 106 mls/hr Q6H IV 12/21/17 00:00 12/31/17 00:00 12/21/17 05:55 106 MLS/HR Hydromorphone HCl (Dilaudid Inj) 2 mg Q4H PRN IV 12/21/17 01:00 12/21/17 05:40 2 MG Review of Systems Constitutional: + weakness, + fatigue, No fever Eyes: No problem reported ENT: + nasal symptoms Respiratory: + shortness of breath, + dyspnea on exertion Abdomen: + pain, + constipation Musculoskeletal: + joint pain Genitourinary - Female: + dysuria, + urinary frequency, + urinary urgency Neurologic: + problem reported (GASPAR) Psychiatric: No problem reported Endocrine: No problem reported Hematologic / Lymphatic: No problem reported Integumentary: No problem reported Allergic / Immunologic: No problem reported Physical Exam Date Time Temp Pulse Resp B/P (MAP) Pulse Ox O2 Delivery O2 Flow Rate FiO2 12/21/17 08:47 76 193/105 (134) 12/21/17 08:30 Nasal Cannula 3.0 12/21/17 07:06 37.1 18 195/103 (133) 93 3.0 12/21/17 00:57 36.8 69 20 123/69 92 Nasal Cannula 3.0 12/20/17 23:20 37.0 68 12 143/79 93 12/20/17 20:36 68 12 12/20/17 20:31 73 23 12/20/17 20:26 70 12 12/20/17 20:21 70 21 12/20/17 20:16 73 23 12/20/17 20:11 68 16 12/20/17 20:06 70 14 12/20/17 20:01 70 15 12/20/17 18:07 143/79 12/20/17 18:05 88 18 143/79 93 Nasal Cannula 3.0 7/25/18 14:19 37.0 74 18 140/74 92 Nasal Cannula 3.0 General Appearance: WD/WN, + mild distress Head: normocephalic, atraumatic Eyes: normal inspection, EOMI, sclerae normal ENT: normal ENT inspection, pharynx normal Neck: supple, no adenopathy, thyroid normal, trachea midline Respiratory/Chest: chest non-tender, no respiratory distress, no accessory muscle use, + rales Cardiovascular: regular rate, rhythm, no gallop, no murmur Abdomen/GI: normal bowel sounds, soft, no organomegaly, + tenderness ( Suprapubic) Back: normal inspection, no CVA tenderness Extremities/Musculoskelatal: no calf tenderness, non-tender Neurologic/Psych: alert, oriented x 3 Skin: normal color, warm/dry, no rash Lymphatic: no adenopathy Laboratory Results Date/Time Source Procedure Growth Status 12/20/17 20:09 Blood Blood Culture Pending Received 12/20/17 20:00 Blood Blood Culture Pending Received 12/21/17 03:08 Urine , Clean Catch Urine Culture Pending Received Last 24 Hours Test 12/20/17 15:45 12/20/17 20:00 12/20/17 20:12 12/21/17 06:15 Urine Color YELLOW Urine Appearance ERROR Urine pH 8.5 Urine Specific [place] 1.013 Urine Protein NEG Urine Glucose (UA) NEG Urine Ketones NEG Urine Occult Blood NEG Urine Nitrite NEG Urine Bilirubin NEG Urine Urobilinogen NEG Urine Leukocyte Esterase NEG Troponin I < 0.015 ng/ml Bedside Lactic Acid Venous 0.44 mmol/L White Blood Count 10.89 K/uL Red Blood Count 3.74 M/uL Hemoglobin 11.3 g/dL Hematocrit 37.3 % Mean Corpuscular Volume 99.7 fL Mean Corpuscular Hemoglobin 30.2 pg Mean Corpuscular Hemoglobin Concent 30.3 g/dl Platelet Count 127 K/uL Mean Platelet Volume 12.2 fL Neutrophils (%) (Auto) 72.3 % Lymphocytes (%) (Auto) 13.7 % Monocytes (%) (Auto) 10.1 % Eosinophils (%) (Auto) 3.0 % Basophils (%) (Auto) 0.3 % Neutrophils # (Auto) 7.88 K/uL Lymphocytes # (Auto) 1.49 K/uL Monocytes # (Auto) 1.10 K/uL Eosinophils # (Auto) 0.33 K/uL Basophils # (Auto) 0.03 K/uL RDW Standard Deviation 57.8 fL RDW Coefficient of Variation 16.0 % Immature Granulocyte % (Auto) 0.6 % Immature Granulocyte # (Auto) 0.06 K/uL Platelet Estimate NORMAL Basophilic Stippling 1+ Stomatocytes 1+ Sodium Level 144 mmol/L Potassium Level 3.8 mmol/L Chloride Level 105 mmol/L Carbon Dioxide Level 36 mmol/L Anion Gap 2.0 mmol/L Blood Urea Nitrogen 24 mg/dl Creatinine 1.02 mg/dl Est Creatinine Clear Calc Drug Dose 38.6 ml/min Estimated GFR () 64.5 Estimated GFR (Non- 55.7 BUN/Creatinine Ratio 23.9 Random Glucose 73 mg/dl Calcium Level 8.5 mg/dl Patient Name: GRICELDA PEREZ Unit Number: [id number] Dictated: 12/20/171744 Transcribed: 12/20/171745 JRB Printed Date/Time: [~ rep prt dt]/[~ rep prt tm] [~ rep ct labl] - [~ rep ct ivnm] [facility] Radiology Department [place] [id number] Dictated: 12/20/171744 Transcribed: 12/20/171745 JRB Printed Date/Time: [~ rep prt dt]/[~ rep prt tm] [~ rep ct labl] - [~ rep ct ivnm] [~ rep ct add3]] ABDOMEN AND PELVIS CT WITHOUT CONTRAST CT DOSE: 288.42 mGy.cm HISTORY: Acute lower abdominal pain with back pain and urinary tract infection low abd pain, back pain, hx uti TECHNIQUE: Multiaxial CT images of the abdomen and pelvis were performed without contrast. A dose lowering technique was utilized adhering to the principles of ALARA. COMPARISON STUDY: CT abdomen and pelvis 06/25/2017, CT chest 08/10/2017. . FINDINGS: Trace bilateral pleural effusions with consolidative right basilar opacities. Linear consolidative pleural-based opacities about the posterior basal segment left lower lobe suggest atelectasis/scarring. There is no pneumatosis or pneumoperitoneum identified. Imaged inferior cardiac chambers are moderately enlarged. Coronary arterial calcifications are noted. Distention of the gallbladder. There is streak artifact within the abdomen and pelvis from multilevel vertebroplasty changes. Decreased attenuation about the pancreatic head and uncinate process is likely artifactual. Liver is unremarkable without intrahepatic biliary ductal dilation. Spleen and adrenal glands are unremarkable. The pancreas is also within normal limits. Marked right and moderate left renal cortical thinning and parenchymal atrophy. No renal calculi or obstructive uropathy. Ureters and bladder are unremarkable. The uterus and adnexa are within normal limits. Advanced atherosclerosis of the aorta with bilateral renal arterial stent grafts. No pathologically enlarged lymph nodes are identified. There is no bowel obstruction. Colonic diverticulosis without diverticulitis. Moderate to marked stool volume extends from the cecum through the descending colon. Terminal ileum appears unremarkable. The visualized appendix appears unremarkable. Diastases recti. Subcutaneous varices about the mons pubis. Demineralized appearance of the bones. Intratrochanteric nail about the bilateral femora. Multiple remote compression deformities with vertebroplasty changes. T9 compression deformity without retropulsion appears unchanged from comparison chest CT. No sacral sufficiency fracture. IMPRESSION: 1. Constipation without bowel obstruction or focal bowel wall thickening. 2. Colonic diverticulosis without diverticulitis. 3. Moderate left and marked right renal cortical thinning with parenchymal atrophy. 4. Additional findings as above. Electronically signed by: Alejandro Mitchell M.D. 12/20/2017 5:53 PM Dictated Date/Time: 12/20/2017 5:45 PM The status of this report is Signed. Draft = Not yet reviewed or approved by Radiologist. Signed = Reviewed and approved by Radiologist. <AttendingPhy></AttendingPhy> <FamilyPhy>[facility] [place]</FamilyPhy> < PrimaryPhy>[facility] [place]</PrimaryPhy> <UnitNumber>[id number]</UnitNumber> < VisitNumber>[id number]</VisitNumber> <PatientName>GRICELDA PEREZ</PatientName> <DateOfBirth>1945</DateOfBirth> <Location>[facility]</Location> <ServiceDate></ServiceDate> <MNE>ESINDI</MNE> <OrderingPhy>Erin Valenzuela DO</ OrderingPhy> <OrderingPhyMNE>f rep ord mnyony</OrderingPhyMNE> <DictatingPhyMNE> f rep dict dr perez</DictatingPhyMNE> <CCListMNE>f rep ct chris</CCListMNE> < AdmittingPhyMNE>f pt admit dr perez</AdmittingPhyMNE> <AttendingPhyMNE>f pt attend dr perez</AttendingPhyMNE> <ConsultingPhyMNE>f pt consult dr perez</ConsultingPhyMNE> <FamilyPhyMNE>f pt fam dr perez</FamilyPhyMNE> <OtherPhyMNE>f pt other dr perez</OtherPhyMNE> < PrimaryPhyMNE>f pt prim care dr perez</PrimaryPhyMNE> <ReferringPhyMNE>f pt referring dr perez</ReferringPhyMNE> Assessment & Plan 72-year-old female with complicated past medical history with recurrent urinary tract infections now with symptoms of recurrent infection, but urinalysis and culture not suggestive of active bacterial infection. Pending final blood and urine cultures, patient to be continued on imipenem. Would consider urologic evaluation to look for other causes of current symptomatology. Would also consider further workup for her chronic headaches. Will follow.
[2017-12-21 10:33] VITALS: BP 169/96; PULSE 64
[2017-12-21] MEDS ORDERED: DIAZEPAM 2MG TAB PO ONE ×2 (15:00→17:15)
[2017-12-21 16:00] VITALS: O2SAT 93
--- NOTE | 2017-12-21 16:02 | DIAGNOSTIC IMAGING REPORT ---
CERVICAL SPINE CT CT DOSE: 334.59 mGy.cm HISTORY: severe posterior scalp pain, brisk reflexes TECHNIQUE: Multiaxial CT images of the cervical spine were performed and reformatted in the sagittal and coronal plane without the use of contrast. A dose lowering technique was utilized adhering to the principles of ALARA. COMPARISON: None. FINDINGS: No fractures. No subluxation. Prevertebral soft tissues and the C1-C2 interval are intact. No pneumothorax. Exaggeration of the normal lordotic curvature. There is mild disc space narrowing at C4-C5 and C5-C6. No significant central canal narrowing by CT technique. IMPRESSION: No fractures within the cervical spine. Electronically signed by: Stoney Bryson M.D. 12/21/2017 4:00 PM Dictated Date/Time: 12/21/2017 3:52 PM
[2017-12-21] MEDS: KETOROLAC TROMETHAMINE 15 MG/ML VIAL IV PRN (17:13)
[2017-12-21] MEDS ORDERED: SODIUM CHLORIDE 0.65% NA SOLN 45 ML (OCEAN) PRN (17:30)
[2017-12-21] MEDS ORDERED: MAGNESIUM HYDROXIDE SUSP 30 ML UDC PO ONE (17:30)
[2017-12-21] MEDS ORDERED: VANCOMYCIN IV 1,000 MG in SODIUM CHLORIDE 0.9% 250ML 250 ML IV SCH (18:30)
[2017-12-21] MEDS ORDERED: VANCOMYCIN CONSULT ACTIVE PRN (18:30)
[2017-12-21] MEDS ORDERED: VANCOMYCIN IV 1,250 MG in SODIUM CHLORIDE 0.9% 250ML 250 ML IV ONE (19:00)
[2017-12-21] MEDS: OXYMETAZOLINE HCL 0.05% NA SPR 15 ML BTL SCH (19:19)
--- NOTE | 2017-12-21 20:20 | Progress Note ---
Subjective Date of Service: Dec 21, 2017. Subjective Pt evaluation today including: conversation w/ patient, physical exam, chart review, lab review, review of studies (CT neck, CT abd/pelvis), review of inpatient medication list Pain: posterior scalp headache - severe - present x weeks; bladder pain PO Intake: fair Voiding: incontinence tele stable overnight has multiple complaints during the visit - 1. left maxillary sinus pressure/congestion; was told she had sinusitis at ENT recently and placed on doxycycline Had CT of sinuses in October confirming such 2. bladder discomfort, dysuria, and feeling of incomplete emptying 3. severe, "worse headache of my life" - present on posterior occiput; describes it as a "vice" and "band" around her head; this has been ongoing for several weeks had MRI in October and reason for the MRI was in fact her headache; MRI was normal ; also had normal head CT in early November - also for headache Denies any paresthesias of hands/arms Denies weakness of arms Has chronic deconditioning of legs and [facility] 4. constipation - last BM was this AM ("smear" per staff); had "good" bowel movement a few days ago at the [facility] Problem List Medical Problems: (1) Abdominal pain Status: Acute (2) Acute kidney injury superimposed on chronic kidney disease Status: Acute (3) Altered mental status Status: Acute (4) Anemia Status: Acute (5) Back pain Status: Acute (6) Bilateral pneumonia Status: Acute (7) CHF (congestive heart failure) Status: Acute (8) Chronic Kidney Disease, Stage Iii (Moderate) Status: Chronic (9) Chronic, continuous use of opioids Status: Acute (10) COPD exacerbation Status: Acute (11) COPD exacerbation Status: Acute (12) Crystal arthritis Status: Chronic (13) Dehydration Status: Acute (14) Dehydration Status: Acute (15) Duodenal bulb ulcer Status: Chronic (16) Dysuria Status: Acute (17) Failure of outpatient treatment Status: Acute (18) Failure of outpatient treatment Status: Acute (19) Gallbladder dilatation Status: Acute (20) Generalized weakness Status: Acute (21) Gout Status: Chronic (22) Hyperlipidemia Nec/Nos Status: Chronic (23) Hypertension Status: Chronic (24) Hypoxemia Status: Acute (25) Hypoxia Status: Acute (26) Hypoxia Status: Acute (27) Hypoxia Status: Acute (28) Hypoxia Status: Acute (29) Lumbar compression fracture Status: Chronic (30) Nausea & vomiting Status: Acute (31) Opiate use Status: Chronic (32) Osteoporosis Status: Chronic (33) Peripheral edema Status: Acute (34) Pneumonia Status: Acute (35) Pneumonia Status: Acute (36) Pneumonia involving right lung Status: Acute (37) Renal insufficiency Status: Acute (38) Respiratory acidosis Status: Acute (39) Respiratory distress Status: Acute (40) Right renal artery stenosis Status: Chronic (41) Secondary hyperparathyroidism Status: Chronic (42) UTI (urinary tract infection) Status: Acute Review of Systems Constitutional: No fever, No chills ENT: + nasal symptoms Respiratory: No cough, No shortness of breath, No dyspnea at rest, No hemoptysis Cardiac: No chest pain, No orthopnea Abdomen: + pain, + constipation, No nausea, No vomiting, No diarrhea, No GI bleeding Neurologic: No numbness/tingling Objective Vital Signs Date Time Temp Pulse Resp B/P (MAP) Pulse Ox O2 Delivery O2 Flow Rate FiO2 12/21/17 10:33 64 169/96 (120) 12/21/17 08:47 76 193/105 (134) 12/21/17 08:30 Nasal Cannula 3.0 12/21/17 07:06 37.1 18 195/103 (133) 93 3.0 12/21/17 00:57 36.8 69 20 123/69 92 Nasal Cannula 3.0 12/20/17 23:20 37.0 68 12 143/79 93 12/20/17 20:36 68 12 12/20/17 20:31 73 23 12/20/17 20:26 70 12 12/20/17 20:21 70 21 12/20/17 20:16 73 23 12/20/17 20:11 68 16 12/20/17 20:06 70 14 Physical Exam General Appearance: + thin, + pertinent finding (severe kyphosis ) ENT: pharynx normal (no thrush, MMM) Neck: + pertinent finding (no tenderness with flexion, extension or rotation; no pain with palpation of spinous processes; scalp is tender to touch on occiput ) Respiratory/Chest: lungs clear, no respiratory distress, no accessory muscle use Cardiovascular: regular rate, rhythm, no gallop Abdomen: normal bowel sounds, no organomegaly, + distended (mild), + tenderness (suprapubic region) Extremities: no pedal edema Neurologic/Psychiatric: alert, oriented x 3, + motor weakness (b/l foot drop; reflexes are brisk x 4 extremities; strength of arms/legs 5/5 ) Comments: KATHLEEN - chaperoned by staff - no fecal impaction; stool vaughan in color; no gross blood Laboratory Results Last 24 Hours Test 12/20/17 20:12 12/21/17 06:15 Bedside Lactic Acid Venous 0.44 mmol/L White Blood Count 10.89 K/uL Red Blood Count 3.74 M/uL Hemoglobin 11.3 g/dL Hematocrit 37.3 % Mean Corpuscular Volume 99.7 fL Mean Corpuscular Hemoglobin 30.2 pg Mean Corpuscular Hemoglobin Concent 30.3 g/dl Platelet Count 127 K/uL Mean Platelet Volume 12.2 fL Neutrophils (%) (Auto) 72.3 % Lymphocytes (%) (Auto) 13.7 % Monocytes (%) (Auto) 10.1 % Eosinophils (%) (Auto) 3.0 % Basophils (%) (Auto) 0.3 % Neutrophils # (Auto) 7.88 K/uL Lymphocytes # (Auto) 1.49 K/uL Monocytes # (Auto) 1.10 K/uL Eosinophils # (Auto) 0.33 K/uL Basophils # (Auto) 0.03 K/uL RDW Standard Deviation 57.8 fL RDW Coefficient of Variation 16.0 % Immature Granulocyte % (Auto) 0.6 % Immature Granulocyte # (Auto) 0.06 K/uL Platelet Estimate NORMAL Basophilic Stippling 1+ Stomatocytes 1+ Erythrocyte Sedimentation Rate 5 mm/hr Sodium Level 144 mmol/L Potassium Level 3.8 mmol/L Chloride Level 105 mmol/L Carbon Dioxide Level 36 mmol/L Anion Gap 2.0 mmol/L Blood Urea Nitrogen 24 mg/dl Creatinine 1.02 mg/dl Est Creatinine Clear Calc Drug Dose 38.6 ml/min Estimated GFR () 64.5 Estimated GFR (Non- 55.7 BUN/Creatinine Ratio 23.9 Random Glucose 73 mg/dl Calcium Level 8.5 mg/dl Hepatitis C Antibody Screen NEG Assessment and Plan 72yo female - 1. abdominal pain - patient concerned she has UTI. Had negative urine cx several days ago at [facility], and u/a yesterday evening was completely normal. Urine cx from last evening is pending but suspect it will be negative. Sed rate is 5. PVR during my visit was <50cc. Is her pain due to severe constipation?? Could her severe constipation and stool load be pushing on her bladder causing spasm?? Plan - Aggressive bowel regimen; she might even need a "colonoscopy prep" for clean- out purposes pyridium prn for bladder pain follow culture 2. severe constipation - see above. 3. posterior scalp/occipital headaches - chronic, daily, going back to at least October. Has had negative MRI brain and head CT in the last 4-6 weeks. Sed rate is 5. Ordered CT neck to r/o spinal stenosis causing her pain - mild DJD seen but nothing severe. Are these tension headaches? Other? Try toradol with valium now. K pad. Continue chronic baclofen. Hydrocodone prn. Avoid heavy IV narcotics. May need neuro consult. May need steroids IV. 4. recent sinusitis - has had copious antibiotics as of late. She is now on broad-spectrum IV abx while awaiting cultures. Afrin nasal spray x 2 days. Saline nasal spray q1h prn. 5. +blood culture - late in the day today her blood cx from the PICC line grew GPC. Will repeat the blood cultures and start IV vancomycin. 6. chronic pain syndrome - cont methadone, etc. 7. CKD stage 3 - creatinine is at baseline. 8. chronic hypoxic resp failure 2nd to COPD - stable; continue usual outpatient meds. Cont chronic prednisone; defer on stress dose steroids for now but low threshold for increasing them. 9. HTN - labile; typically in the hospital she has severe lability in the hospital and is very sensitive to IV steroids. She is sensitive to PRN BP meds as well. Simply follow her BPs for now. 10. chronic diastolic CHF - compensated. 11. severe osteoporosis complicated by multiple compression fractures - cont usual outpatient pain meds. Continued [facility] stay due to: inadequate oral pain control, multiple IV medications needed Discharge planning: senior care facility
--- NOTE | 2017-12-21 20:33 | Pharmacy Progress Note ---
Pharmacy Abx Initial Consult Date of Service Dec 21, 2017. Pharmacy Dosing Scope Date of Consult: 12/21/17 Consultation requested by: Dr. Nance Pharmacy is consulted to initiate Vancomcyin IV dosing therapy, order appropriate labs and adjust drug dose/frequency. Subjective The patient is a 72 year old female admitted on Dec 20, 2017 at 21:50. Objective Height (Feet): 4 Height (Inches): 11.00 Weight (Kilograms): 54.400 (BMI 24.2) Vital Signs (Past 12Hrs) Vital Signs Past 12 Hours Date Time Temp Pulse Resp B/P (MAP) Pulse Ox O2 Delivery O2 Flow Rate FiO2 12/21/17 10:33 64 169/96 (120) 12/21/17 08:47 76 193/105 (134) Lab Results (24Hrs) Laboratory Tests (24 Hours) Test 12/21/17 06:15 Erythrocyte Sedimentation Rate 5 mm/hr (0-21) White Blood Count 10.89 K/uL (4.8-10.8) H Red Blood Count 3.74 M/uL (4.2-5.4) L Hemoglobin 11.3 g/dL (12.0-16.0) L Hematocrit 37.3 % (37-47) Mean Corpuscular Volume 99.7 fL (80-100) Mean Corpuscular Hemoglobin 30.2 pg (25-34) Mean Corpuscular Hemoglobin Concent 30.3 g/dl (32-36) L Platelet Count 127 K/uL (130-400) L Mean Platelet Volume 12.2 fL (7.4-10.4) H Neutrophils (%) (Auto) 72.3 % Lymphocytes (%) (Auto) 13.7 % Monocytes (%) (Auto) 10.1 % Eosinophils (%) (Auto) 3.0 % Basophils (%) (Auto) 0.3 % Neutrophils # (Auto) 7.88 K/uL (1.4-6.5) H Lymphocytes # (Auto) 1.49 K/uL (1.2-3.4) Monocytes # (Auto) 1.10 K/uL (0.11-0.59) H Eosinophils # (Auto) 0.33 K/uL (0-0.5) Basophils # (Auto) 0.03 K/uL (0-0.2) Item Value Date Time Creatinine 1.02 mg/dl 12/21/17 0615 Est Creatinine Clear Calc Drug Dose 38.6 ml/min 12/21/17 0615 Micro Results Date/Time Source Procedure Growth Status 12/21/17 20:00 Blood Blood Culture Pending Ordered 12/21/17 20:00 Blood Blood Culture Pending Ordered 12/20/17 20:09 Blood Blood Culture Pending Received 12/20/17 20:00 Blood Blood Culture - Preliminary Gram Positive Cocci Resulted 12/21/17 03:08 Urine , Clean Catch Urine Culture Pending Received Risk Factors for Resistance * Resident in a alf or extended-care facility * Immunocompromised (chronic steroid therapy) * 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 UA is unremarkable but given symptoms and recurrent history of UTI was started on Primaxin bc of prior ESBL ecoli in urine. Vanco started due to blood culture x1 showing Gram + Cocci growth. Repeat blood cultures are being done. Plan Vancomycin IV * Estimated Pkinetics: Vd 0.7L/kg; John ~0.036 hr-1; T1/2 ~19.3 hr; CrCl 38.6 * Loading dose: 1250 mg (~23 mg/kg) * Maintenance dose: 750 mg IV (~14 mg/kg) every 24 hours * Goal trough level bacteremia : 15 to 20 mcg/mL * Trough level ordered for 12/24/17 Patient is also on Imipenem 300mg IV q6h. Pharmacy will continue to follow and will adjust dose/frequency as necessary. Thank you.
[2017-12-21 21:27] VITALS: BP 159/79; PULSE 69
[2017-12-21] MEDS: MIRTAZAPINE TAB 15 MG TAB PO SCH (21:29)
[2017-12-21] MEDS: PHENAZOPYRIDINE HCL 100 MG TAB PO PRN (22:05)
[2017-12-22 00:05] VITALS: BP 115/66; PULSE 60; TEMP 36.8; O2SAT 93
[2017-12-22] MEDS: KETOROLAC TROMETHAMINE 15 MG/ML VIAL IV PRN ×2 (01:08→09:31)
[2017-12-22] MEDS: IMIPENEM/CILASTATIN IV 300 MG in DEXTROSE 5% 100ML 100 ML IV SCH ×4 (01:08→17:40)
[2017-12-22] MEDS: HYDROCODONE/ACETAMIN 5/325MG TAB PO PRN ×2 (02:31→15:46)
[2017-12-22] MEDS ORDERED: DIAZEPAM 2MG TAB PO ONE (04:30)
[2017-12-22] MEDS: OXYMETAZOLINE HCL 0.05% NA SPR 15 ML BTL SCH ×2 (05:30→17:39)
[2017-12-22 06:58] VITALS: BP 135/76; PULSE 61; TEMP 36.8; O2SAT 95
[2017-12-22 07:12] VITALS: BP 155/92; PULSE 59; TEMP 37.3; O2SAT 97
--- NOTE | 2017-12-22 08:26 | Clinical Documentation Query ---
JAZMYNE Calderón : CLINICAL DOCUMENTATION QUERY Patient is a 72 year old female admitted for evaluation and treatment of suspected UTI. Documentation notes continuous use of supplemental O2 in the setting of COPD, bronchiectasis with recurrent pneumonia. As appropriate, consider capture of this clinical information as suggested below. Thank you. In your clinical opinion is this patient being managed for: ( ) Chronic respiratory failure with hypoxia ( ) Not Agree ( ) Other explanation of clinical findings (No explanation is considered a No Response) ( ) Unable to determine ( ) Need to Discuss (Phone CDS or qliq) (No discussion is considered a No Response) The medical record reflects the following clinical findings, treatment, and risk factors. Clinical Indicators: As above Treatment: Provision of supplemental O2 continuously Risk Factors: COPD, bronchiectasis Please clarify and document your clinical opinion in the progress notes and discharge summary. Terms such as "probable", "suspected", "likely", "questionable", "possible", or "still to be ruled out" are acceptable. IF IN AGREEMENT, YOU MUST DOCUMENT ABOVE DIAGNOSTIC STATEMENT IN DAILY PROGRESS NOTES AND DISCHARGE SUMMARY. This document is not part of the patient's record. Thank You, Ad Benitez, RN [phone]
[2017-12-22 08:40] LABS: HEMATOCRIT 35.9 % (37-47); HEMOGLOBIN 10.8 g/dL (12.0-16.0); MEAN CORPUSCULAR HEMOGLOBIN 30.1 pg (25-34); MEAN CORPUSCULAR HGB CONC 30.1 g/dl (32-36); MEAN PLATELET VOLUME 12.9 fL (7.4-10.4); PLATELET COUNT 128 K/uL (130-400); RED CELL DISTRIBUTION WIDTH CV 15.9 % (11.5-14.5); RED CELL DISTRIBUTION WIDTH SD 57.8 fL (36.4-46.3); WHITE BLOOD COUNT 12.43 K/uL (4.8-10.8)
[2017-12-22 09:06] LABS: CALCIUM 8.8 mg/dl (8.5-10.1); CREATININE 1.24 mg/dl (0.60-1.20); POTASSIUM 4.2 mmol/L (3.5-5.1)
[2017-12-22] MEDS: ONDANSETRON INJ 2 MG/ML 2 ML VIAL IV PRN (09:30)
[2017-12-22] MEDS ORDERED: DIAZEPAM 2MG TAB PO PRN (10:45)
[2017-12-22] MEDS ORDERED: DIAZEPAM 2MG TAB ONE (10:56)
[2017-12-22] MEDS: ALLOPURINOL 100 MG TAB PO SCH ×2 (10:59→21:50)
[2017-12-22] MEDS: THIAMINE HCL 100 MG TAB PO SCH (10:59)
[2017-12-22] MEDS: SENNA 8.6 MG TAB PO SCH (10:59)
[2017-12-22] MEDS: LORATADINE 10 MG TAB PO SCH (11:00)
[2017-12-22] MEDS: PANTOprazole SOD 40 MG TAB PO SCH ×2 (11:00→21:49)
[2017-12-22] MEDS: DULOXETINE (CYMBALTA) 30 MG CAP PO SCH (11:00)
[2017-12-22] MEDS: METHADONE HCL 10 MG TAB PO SCH ×3 (11:03→21:48)
[2017-12-22] MEDS: VERAPAMIL HCL 120 MG TABCR PO SCH (11:03)
[2017-12-22] MEDS: METHYLPREDNISOLONE IV 30 MG in SYRINGE 0 ML IV SCH ×3 (11:04→21:51)
[2017-12-22] MEDS: HydrALAZINE 10 MG TAB PO SCH ×3 (11:05→21:49)
[2017-12-22] MEDS: CARVEDILOL 25 MG TAB PO SCH ×2 (11:05→21:48)
[2017-12-22] MEDS: FLUTICASONE/SALMETEROL 250/50 (ADVAIR) 14 PUFF/1 INHALER INH SCH ×2 (11:06→21:43)
[2017-12-22] MEDS: BACLOFEN 10 MG TAB PO SCH ×3 (11:06→21:48)
[2017-12-22] MEDS: CLOPIDOGREL BISULFATE 75 MG TAB PO SCH (11:07)
[2017-12-22] MEDS: TIOTROPIUM BROMIDE 5 PUFF/90 MCG INH INH SCH (11:07)
[2017-12-22] MEDS: IPRATROPIUM BROMIDE/ALBUTEROL respimat INH INH SCH ×4 (11:07→21:43)
[2017-12-22] MEDS: CALCITONIN SALMON NA 200 IU/AC 3.7 ML BTL NAE SCH (11:07)
[2017-12-22] MEDS: HEPARIN SOD 5000 UNIT/0.5 ML CARP SQ SCH ×2 (11:07→21:00)
--- NOTE | 2017-12-22 11:08 | Pharmacy Progress Note ---
Pharmacy Abx Dose Short Note Date of Service Dec 22, 2017. Assessment & Plan Assessment * 72 year old female receiving VANCOMYCIN IV for treatment of UTI * Day # 2 of antimicrobial therapy Plan Vancomycin * Obtained STAT random level this AM = 14.1 * Estimated PK parameters: Vd 0.7, ke 0.031 hr-1, t1/2 22 hr * Change to 1000 mg IV every 20 hours * Goal trough level : 15 to 20 mcg/mL * Trough ordered for: 12/24/17 at 0330 Pharmacy will continue to follow and will adjust dose/frequency as necessary. Thank you.
[2017-12-22] MEDS: VANCOMYCIN IV 1,000 MG in SODIUM CHLORIDE 0.9% 250ML 250 ML IV SCH (12:54)
[2017-12-22 13:40] VITALS: BP 87/58; PULSE 56
[2017-12-22] MEDS ORDERED: VANCOMYCIN IV 750 MG in SODIUM CHLORIDE 0.9% 250ML 250 ML IV SCH (19:00)
--- NOTE | 2017-12-22 20:39 | OPHTHALMOLOGY CONSULTATION ---
DATE OF CONSULTATION: 12/22/2017 REASON FOR CONSULTATION: Vision loss, right eye. HISTORY OF PRESENT ILLNESS: The patient is a 72-year-old woman who was admitted with intractable occipital headaches who reported to her primary care team today that she had noticed a loss of vision in her right eye. She is not exactly certain how long this drop in vision has been going on. It does seem to be somewhat acute. She denies any previous ocular disease, but has not had an eye exam in quite some time. She denies any pain in the eye. PAST MEDICAL HISTORY: Chronic kidney disease, respiratory failure, altered mental status, anemia, pneumonia, congestive heart failure, COPD, DVT, weakness, gout, headaches, Hodgkin's lymphoma, UTI, duodenal ulcer, fracture of the T11 vertebra, osteoporosis, hypertension, hyperlipidemia. FAMILY HISTORY: Heart disease. SOCIAL HISTORY: She lives in a half-way. ALLERGIES: AZITHROMYCIN AND LEVOFLOXACIN. HOME MEDICATIONS: Allopurinol, baclofen, calcitonin, carvedilol, cholecalciferol, clopidogrel, fluticasone, heparin, hydralazine, ipratropium, loratadine, methadone, mirtazapine, multivitamin, nifedipine, nitrofurantoin, nystatin, pantoprazole, polyethylene glycol, potassium chloride, prednisone, pseudoephedrine, sumatriptan, thiamine, acetaminophen, albuterol, doxepin, lidocaine, loperamide, magnesium hydroxide, ondansetron, promethazine. PHYSICAL EXAMINATION: EYES: Visual acuity as measured on a near acuity card with correction was counting fingers in the right eye and 20/40 in the left eye. Pupils were equally reactive without an afferent pupillary defect. Motility examination was unremarkable. Confrontation visual field, left eye were normal. Examination of the lids, cornea, anterior chamber, iris, and lenses were all normal. Fundus examination after dilation reveals a dense vitreous hemorrhage in the right eye obscuring good visualization of the posterior pole. Retinal periphery appeared unremarkable. In the left eye, cup-to-disc ratio was 0.4 with normal retinal vessels, macula, and retinal periphery. ASSESSMENT AND PLAN: The patient has suffered an acute vitreous hemorrhage in the right eye. It is unclear the etiology of this hemorrhage. Most common causes of vitreous hemorrhage would be diabetic retinopathy. Given the degree of hemorrhage, it is difficult to visualize the remainder of the retinal details. In addition, the exam is limited due to the equipment available at the bedside. I do not feel that this is a matter that needs any urgent intervention, but I would recommend an evaluation with a retina specialist upon her discharge. Depending on her insurance, she can either be seen by Dr. Goodson at the [facility] office in [facility] or by [place] retina specialist at their office in [place] on [address], please call [phone] with any questions.
--- NOTE | 2017-12-22 20:48 | Progress Note ---
Subjective Date of Service: Dec 22, 2017. Subjective Pt evaluation today including: conversation w/ patient, physical exam, chart review, lab review, conversation w/ workday consultant (ophthomology), review of inpatient medication list Pain: ongoing headache over occiput as well as scalp and frontal regions PO Intake: poor Voiding: incontinence (but PVRs are <50cc) patient reports "I can't see out of my right eye" she just noted today that her vision was quite blurry in that eye when asked what time she noted it she said "I don't know - I think it started a while a go" denies a visual field cut her vision in that eye is simply quite poor no issues w/ the left eye denies PAIN in the right eye reports flashes of light and floaters with the latter being chronic oddly she did not tell a single staff member about the right eye issues until I saw her during my visit headache is unchanged in location or character valium seemed to help the most abd pain +/- better -- same location (suprapubic) had 2 stools since yesterday Problem List Medical Problems: (1) Abdominal pain Status: Acute (2) Acute kidney injury superimposed on chronic kidney disease Status: Acute (3) Altered mental status Status: Acute (4) Anemia Status: Acute (5) Back pain Status: Acute (6) Bilateral pneumonia Status: Acute (7) CHF (congestive heart failure) Status: Acute (8) Chronic Kidney Disease, Stage Iii (Moderate) Status: Chronic (9) Chronic, continuous use of opioids Status: Acute (10) COPD exacerbation Status: Acute (11) COPD exacerbation Status: Acute (12) Crystal arthritis Status: Chronic (13) Dehydration Status: Acute (14) Dehydration Status: Acute (15) Duodenal bulb ulcer Status: Chronic (16) Dysuria Status: Acute (17) Failure of outpatient treatment Status: Acute (18) Failure of outpatient treatment Status: Acute (19) Gallbladder dilatation Status: Acute (20) Generalized weakness Status: Acute (21) Gout Status: Chronic (22) Hyperlipidemia Nec/Nos Status: Chronic (23) Hypertension Status: Chronic (24) Hypoxemia Status: Acute (25) Hypoxia Status: Acute (26) Hypoxia Status: Acute (27) Hypoxia Status: Acute (28) Hypoxia Status: Acute (29) Lumbar compression fracture Status: Chronic (30) Nausea & vomiting Status: Acute (31) Opiate use Status: Chronic (32) Osteoporosis Status: Chronic (33) Peripheral edema Status: Acute (34) Pneumonia Status: Acute (35) Pneumonia Status: Acute (36) Pneumonia involving right lung Status: Acute (37) Renal insufficiency Status: Acute (38) Respiratory acidosis Status: Acute (39) Respiratory distress Status: Acute (40) Right renal artery stenosis Status: Chronic (41) Secondary hyperparathyroidism Status: Chronic (42) UTI (urinary tract infection) Status: Acute Review of Systems Constitutional: + fatigue, No fever, No chills Eyes: + worsening of vision, No eye pain, No redness, No discharge, No diplopia Respiratory: No cough, No shortness of breath, No dyspnea on exertion Cardiac: No chest pain Abdomen: + see HPI, + pain, No nausea, No vomiting, No diarrhea Objective Vital Signs Date Time Temp Pulse Resp B/P (MAP) Pulse Ox O2 Delivery O2 Flow Rate FiO2 12/22/17 16:00 Nasal Cannula 3.0 12/22/17 13:40 56 87/58 (68) 12/22/17 08:30 Nasal Cannula 3.0 12/22/17 07:12 37.3 59 16 155/92 (113) 97 Nebulizer 12/22/17 06:58 36.8 61 16 135/76 (95) 95 12/22/17 00:05 36.8 60 20 115/66 (82) 93 Nasal Cannula 3.5 12/22/17 00:00 Nasal Cannula 3.0 12/21/17 21:27 69 159/79 (105) Physical Exam General Appearance: no apparent distress, + thin, + pertinent finding (kyphotic ) Eyes: normal inspection, PERRL, EOMI, sclerae normal, + pertinent finding ( left fundus - optic disc sharp; vessels appear wnl. right fundus - unable to visualize the optic nerve/disc or the surrounding retina. Quite blurry. ) Neck: no JVD Respiratory/Chest: lungs clear, no respiratory distress, no accessory muscle use Cardiovascular: regular rate, rhythm, no gallop, no murmur Abdomen: normal bowel sounds, non tender, soft, no organomegaly, + distended ( mild) Extremities: no pedal edema Neurologic/Psychiatric: alert, oriented x 3, + motor weakness (b/l foot drop) Skin: + pertinent finding (RUE PICC clean ) Comments: visual campuzano - full by direct confrontation left eye; right eye - patient unable to see. Laboratory Results Last 24 Hours Test 12/22/17 07:46 12/22/17 09:54 White Blood Count 12.43 K/uL Red Blood Count 3.59 M/uL Hemoglobin 10.8 g/dL Hematocrit 35.9 % Mean Corpuscular Volume 100.0 fL Mean Corpuscular Hemoglobin 30.1 pg Mean Corpuscular Hemoglobin Concent 30.1 g/dl RDW Standard Deviation 57.8 fL RDW Coefficient of Variation 15.9 % Platelet Count 128 K/uL Mean Platelet Volume 12.9 fL Sodium Level 142 mmol/L Potassium Level 4.2 mmol/L Chloride Level 103 mmol/L Carbon Dioxide Level 35 mmol/L Anion Gap 4.0 mmol/L Blood Urea Nitrogen 22 mg/dl Creatinine 1.24 mg/dl Est Creatinine Clear Calc Drug Dose 31.6 ml/min Estimated GFR () 51.0 Estimated GFR (Non- 44.0 BUN/Creatinine Ratio 17.7 Random Glucose 69 mg/dl Calcium Level 8.8 mg/dl Random Vancomycin Level 14.1 mcg/ml Assessment and Plan 72yo female - 1. right eye visual disturbance - patient uncertain of when the symptoms began. It appears to be monocular. I do not think this is due to a stroke process, temporal arteritis, glaucoma, or uveitis. Vitreous hemorrhage? Retinal detachment? Other? I called and spoke with Dr. Corral who will come and evaluate her tonight. 2. abdominal pain - likely due to severe constipation. Although she complained of mild pain today, her exam was relatively benign. Urine cx negative x 2 in the last week. CT abd/pelvis only with constipation. Continue aggressive bowel regimen. If not improving then consider go-lytely prep or miralax prep. 3. posterior scalp/occipital headaches - chronic, daily, persistent going back to at least October. Has had negative MRI brain and head CT in the last 4-[address] was earlier in November. MRI brain was in early October. Sed rate is 5. CT neck to r/o spinal stenosis causing her pain - mild DJD seen but nothing severe. I spoke with Dr. Smith from neurology today - will substitute verapamil for her nifedipine for prophylaxis. Will try increasing her steroids to IV. May continue the valium prn. Continue heat. She might benefit from an occipital nerve block or something similar. She is set up to see Trenton ALEGRIA in Pain clinic on 12/26/17 at 1:50 PM. I have asked Dr. Smith or his partners to see Ms. Sommers in consult tomorrow. Since it has been a few weeks since her last head CT will obtain another in the AM. 4. recent sinusitis - has had copious antibiotics as of late. She has been on broad-spectrum IV abx while awaiting blood cultures. I don't believe she has ongoing sinusitis at this time. We are stopping the imipenem today as her blood cultures are negative (one culture with GPC - will remain on vanco for this). 5. +blood culture - 1/2 sets with coag neg staph. The + culture is from the PICC line. I repeated the blood cultures last evening and started her on IV vanco as a precautionary measure. I spoke with Dr. Villarreal from [place] - at this time the +culture is likely a contaminant but will await the other culture results. 6. chronic pain syndrome - cont methadone, etc. 7. CKD stage 3 - creatinine is at baseline. 8. chronic hypoxic respiratory failure 2nd to COPD - stable; continue usual outpatient meds. Takes chronic prednisone for the COPD. 9. HTN - labile; typically in the hospital she has severe lability in her BPs and is very sensitive to IV steroids. She is sensitive to PRN BP meds as well. Simply follow her BPs for now. 10. chronic diastolic CHF - compensated. 11. severe osteoporosis complicated by multiple compression fractures - cont usual outpatient pain meds. Dr. Corral from [facility] consulted tonight and dx Ms. Sommers with a right-sided vitreous hemorrhage. The cause of this is uncertain. There is an entity called "Terson Syndrome" in which the vitreous hemorrhage is associated with SAH. Thus, will obtain head CT once more to r/o SAH. Also hold plavix and heparin SC for now. Continued [facility] stay due to: inadequate oral pain control, multiple IV medications needed, other (right eye visual disturbance ) Discharge planning: shelter facility
[2017-12-22] MEDS: PHENAZOPYRIDINE HCL 100 MG TAB PO PRN (21:48)
[2017-12-22] MEDS: MIRTAZAPINE TAB 15 MG TAB PO SCH (21:48)
[2017-12-22 23:58] VITALS: BP 147/85; PULSE 59; TEMP 36.5; O2SAT 93
[2017-12-23 00:39] VITALS: O2SAT 93
[2017-12-23] MEDS: METHYLPREDNISOLONE IV 30 MG in SYRINGE 0 ML IV SCH ×3 (04:48→16:38)
[2017-12-23 06:55] LABS: HEMATOCRIT 37.4 % (37-47); HEMOGLOBIN 11.1 g/dL (12.0-16.0); MEAN CELL VOLUME 98.4 fL (80-100); MEAN CORPUSCULAR HEMOGLOBIN 29.2 pg (25-34); MEAN CORPUSCULAR HGB CONC 29.7 g/dl (32-36); MEAN PLATELET VOLUME 12.8 fL (7.4-10.4); PLATELET COUNT 125 K/uL (130-400); RED CELL DISTRIBUTION WIDTH CV 15.7 % (11.5-14.5); RED CELL DISTRIBUTION WIDTH SD 55.9 fL (36.4-46.3)
[2017-12-23 07:03] LABS: CALCIUM 8.6 mg/dl (8.5-10.1); CREATININE 1.31 mg/dl (0.60-1.20); POTASSIUM 4.7 mmol/L (3.5-5.1)
--- NOTE | 2017-12-23 07:21 | DIAGNOSTIC IMAGING REPORT ---
CT HEAD WITHOUT CONTRAST (CT) CLINICAL HISTORY: Persistent/progressive chronic daily headaches. COMPARISON STUDY: 11/29/2017 TECHNIQUE: Axial CT of the brain is performed from the vertex to the skull base. IV contrast was not administered for this examination. A dose lowering technique was utilized adhering to the principles of ALARA. CT DOSE: 537.48 mGy.cm FINDINGS: No intra or extra-axial mass lesions are visualized. There is no CT evidence of acute cortical infarction. There is no evidence of midline shift. There is no acute hemorrhage. No calvarial fractures are visualized. There are patchy white matter hypodensities likely on a small vessel basis. There is no evidence of pathologic ventricular dilatation. There is no evidence of acute sinusitis IMPRESSION: No acute intracranial findings Electronically signed by: Himanshu Cueto M.D. 12/23/2017 7:20 AM Dictated Date/Time: 12/23/2017 7:18 AM
[2017-12-23 07:30] VITALS: O2SAT 93
[2017-12-23] MEDS: FLUTICASONE/SALMETEROL 250/50 (ADVAIR) 14 PUFF/1 INHALER INH SCH ×2 (07:41→21:30)
[2017-12-23] MEDS: IPRATROPIUM BROMIDE/ALBUTEROL respimat INH INH SCH ×4 (07:41→21:30)
[2017-12-23] MEDS: TIOTROPIUM BROMIDE 5 PUFF/90 MCG INH INH SCH (07:42)
[2017-12-23] MEDS: CALCITONIN SALMON NA 200 IU/AC 3.7 ML BTL NAE SCH (07:43)
[2017-12-23 07:46] VITALS: BP 169/82; PULSE 62; TEMP 36.9; O2SAT 95
[2017-12-23] MEDS: ONDANSETRON INJ 2 MG/ML 2 ML VIAL IV PRN ×2 (07:58→22:36)
[2017-12-23] MEDS: VANCOMYCIN IV 1,000 MG in SODIUM CHLORIDE 0.9% 250ML 250 ML IV SCH (07:59)
[2017-12-23] MEDS: DULOXETINE (CYMBALTA) 30 MG CAP PO SCH (08:00)
[2017-12-23] MEDS: LORATADINE 10 MG TAB PO SCH (08:44)
[2017-12-23] MEDS: HydrALAZINE 10 MG TAB PO SCH ×3 (08:44→21:29)
[2017-12-23] MEDS: VERAPAMIL HCL 120 MG TABCR PO SCH (08:45)
[2017-12-23] MEDS: CARVEDILOL 25 MG TAB PO SCH ×2 (08:46→21:28)
[2017-12-23] MEDS: METHADONE HCL 10 MG TAB PO SCH ×3 (08:47→21:26)
[2017-12-23] MEDS: BACLOFEN 10 MG TAB PO SCH ×3 (08:48→21:29)
[2017-12-23] MEDS: PANTOprazole SOD 40 MG TAB PO SCH ×2 (08:48→21:29)
[2017-12-23] MEDS: SENNA 8.6 MG TAB PO SCH (08:48)
[2017-12-23] MEDS: ALLOPURINOL 100 MG TAB PO SCH ×2 (08:49→21:29)
[2017-12-23] MEDS: THIAMINE HCL 100 MG TAB PO SCH (08:49)
[2017-12-23] MEDS: HYDROCODONE/ACETAMIN 5/325MG TAB PO PRN (08:50)
--- NOTE | 2017-12-23 12:07 | Neurology Consultation ---
Neurology Consultation Date of Consultation: Dec 23, 2017. Attending Physician: Elenita Rowe MD Primary Care Physician: Marti Vila Reason for Consultation: Patient is a 72-year-old, who I was asked to see at the request of Dr. Nance, for neurologic consultation regarding headaches. History of Present Illness Source: patient, caregiver, clinic records, hospital records Patient has a longstanding history of chronic spine pain post multiple kyphoplasty procedures in [place] from [id number]. She has severe osteoporosis and vitamin-D deficiency followed by Endocrinology along with secondary hyperparathyroidism. There is chronic low back pain with history of compression fractures. She has chronic respiratory issues with COPD and hypoxia post multiple pneumonias on O2. She is on 2.5 milligrams prednisone daily for this. She carries a diagnosis of hypertension and gout. She has chronic renal disease and multiple UTIs and sees Urology. Headache her 42 she had Hodgkin's lymphoma and receive chemotherapy and radiation. This posture and a menopause at an early age in gave her DVT. She has had no estrogen her and had significant postmenopausal symptoms over time. Patient has been on chronic narcotics and methadone for many years for her chronic pain. In early October she woke up with a mid occipital headache. This headache has been persistent ever since. It will wax and wane some but remains constant. Movement of her head makes the headache worse. It is a significant pressure pain or pounding pain and makes her head feel heavy. She can relieve the heavy pressure by wrapping it Tylenol around her neck and putting some mild pressure. The back of her head is not sore to touch but she says when she touches her face or knows that can trigger her headache. She can have some nausea and vomiting with the headache but never has sonophobia or photophobia. Patient had an MRI of the brain early October of 2017 which showed mild old nonspecific small vessel ischemic changes. Recently she was admitted to the hospital but continues to have a headache. Extra steroids have not helped. In the hospital, a dose of Valium helped her headache. Extra steroids/Solu- Medrol have not helped Past Medical/Surgical History Medical Problems: (1) Abdominal pain Status: Acute (2) Acute kidney injury superimposed on chronic kidney disease Status: Acute (3) Altered mental status Status: Acute (4) Anemia Status: Acute (5) Back pain Status: Acute (6) Bilateral pneumonia Status: Acute (7) CHF (congestive heart failure) Status: Acute (8) Chronic Kidney Disease, Stage Iii (Moderate) Status: Chronic (9) Chronic, continuous use of opioids Status: Acute (10) COPD exacerbation Status: Acute (11) COPD exacerbation Status: Acute (12) Crystal arthritis Status: Chronic (13) Dehydration Status: Acute (14) Dehydration Status: Acute (15) Duodenal bulb ulcer Status: Chronic (16) Dysuria Status: Acute (17) Failure of outpatient treatment Status: Acute (18) Failure of outpatient treatment Status: Acute (19) Gallbladder dilatation Status: Acute (20) Generalized weakness Status: Acute (21) Gout Status: Chronic (22) Hyperlipidemia Nec/Nos Status: Chronic (23) Hypertension Status: Chronic (24) Hypoxemia Status: Acute (25) Hypoxia Status: Acute (26) Hypoxia Status: Acute (27) Hypoxia Status: Acute (28) Hypoxia Status: Acute (29) Lumbar compression fracture Status: Chronic (30) Nausea & vomiting Status: Acute (31) Opiate use Status: Chronic (32) Osteoporosis Status: Chronic (33) Peripheral edema Status: Acute (34) Pneumonia Status: Acute (35) Pneumonia Status: Acute (36) Pneumonia involving right lung Status: Acute (37) Renal insufficiency Status: Acute (38) Respiratory acidosis Status: Acute (39) Respiratory distress Status: Acute (40) Right renal artery stenosis Status: Chronic (41) Secondary hyperparathyroidism Status: Chronic (42) UTI (urinary tract infection) Status: Acute History of multiple UTIs Chronic renal disease Chronic respiratory disease/COPD on O2 History of multiple pneumonias in the past Gout History of DVT age 42 Dyslipidemia Hypertension Chronic lumbar spine pain with compression fracture Secondary hyperparathyroidism History of sinusitis Severe osteoporosis and vitamin-D deficiency Post kyphoplasty surgeries Left renal artery stent placed February 2017 Right elbow repair August 11 Family History Mother age 93 of uncertain causes. She had chronic pain. Father age 93 of renal cancer Father: cancer Social History Patient quit cigarette smoking 10 years ago. Prior to this she was a half pack a cigarette smoker every 3 days. She would socially use alcohol. 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 Currently she is at order of a batteriiazine. Smoking Status: Former smoker Smokeless Tobacco Use: No Alcohol Use: none Drug Use: none Marital Status: Housing Status: lives with family Occupation Status: disabled Allergies Coded Allergies: Squash (Verified Allergy, Unknown, Jose, 12/20/17) Azithromycin (Verified Adverse Reaction, Mild, nausea, 12/22/17) Levofloxacin (Verified Adverse Reaction, Mild, nausea, 12/22/17) Current Inpatient Medications Current Inpatient Medications Medications (Trade) Dose Ordered Sig/Estephania Route Start Time Stop Time Status Last Admin Dose Admin Ioversol (Optiray 320) 125 ml UD PRN IV 12/20/17 16:30 12/24/17 16:29 Acetaminophen (Tylenol Tab) 650 mg Q4H PRN PO 12/20/17 21:15 01/19/18 21:14 Al Hydrox/Mg Hydrox/Simethicone (Maalox Max Susp) 15 ml Q4H PRN PO 12/20/17 21:15 01/19/18 21:14 Magnesium Hydroxide (Milk Of Magnesia Susp) 30 ml Q6H PRN PO 12/20/17 21:15 01/19/18 21:14 Polyethylene (Miralax Powder Packet) 17 gm DAILY PRN PO 12/20/17 21:15 01/19/18 21:14 Ondansetron HCl (Zofran Inj) 4 mg Q6H PRN IV 12/20/17 21:15 01/19/18 21:14 12/23/17 07:58 4 MG Heparin Sodium (Porcine) (Heparin Sq 5000 Unit/0.5ml) 5,000 unit Q12H SQ 12/21/17 09:00 01/20/18 08:59 Future Hold 12/21/17 21:30 5,000 UNIT Allopurinol (Zyloprim Tab) 100 mg BID PO 12/21/17 09:00 01/20/18 08:59 12/23/17 08:49 100 MG Baclofen (Lioresal Tab) 10 mg TID PO 12/21/17 09:00 01/20/18 08:59 12/23/17 08:48 10 MG Calcitonin [place] (Fortical Nasal [place]) 1 spray QAM ERIC 12/21/17 09:00 01/20/18 08:59 12/23/17 07:43 1 SPRAY Carvedilol (Coreg Tab) 25 mg BID PO 12/21/17 09:00 01/20/18 08:59 12/23/17 08:46 25 MG Clopidogrel Bisulfate (plAVix TAB) 75 mg QAM PO 12/21/17 09:00 01/20/18 08:59 Future Hold 12/21/17 08:52 75 MG Duloxetine HCl (Cymbalta Cap) 30 mg QAM PO 12/21/17 09:00 01/20/18 08:59 Salmeterol Xinafoate/ Fluticasone (Advair Diskus 250/50 Inh) 1 puff BID INH 12/21/17 09:00 01/20/18 08:59 12/23/17 07:41 1 PUFF Heparin Sodium (Porcine) (Heparin 100 Unit/ml 5ml Flush) 5 ml PRN PRN IV 12/20/17 21:15 01/19/18 21:14 12/22/17 15:46 5 ML Hydralazine HCl (Apresoline Tab) 10 mg TID PO 12/21/17 09:00 01/20/18 08:59 12/23/17 08:44 10 MG Albuterol/ Ipratropium (Combivent Respimat Inh) 1 puffs QID INH 12/21/17 09:00 01/20/18 08:59 12/23/17 07:41 1 PUFFS Loratadine (Claritin Tab) 10 mg DAILY PO 12/21/17 09:00 01/20/18 08:59 12/23/17 08:44 10 MG Mirtazapine (Remeron Tab) 15 mg HS PO 12/21/17 21:00 01/20/18 20:59 12/22/17 21:48 15 MG Pantoprazole Sodium (Protonix Tab) 40 mg BID PO 12/21/17 09:00 01/20/18 08:59 12/23/17 08:48 40 MG Prednisone (PredniSONE TAB) 2.5 mg DAILY PO 12/21/17 09:00 01/20/18 08:59 Future Hold Senna (Senokot Tab) 8.6 mg QAM PO 12/21/17 09:00 01/20/18 08:59 12/23/17 08:48 8.6 MG Sumatriptan Succinate (Imitrex Tab) 25 mg DAILY PRN PO 12/20/17 21:15 01/19/18 21:14 Thiamine HCl (Vitamin B-1 Tab) 200 mg QAM PO 12/21/17 09:00 01/20/18 08:59 12/23/17 08:49 200 MG Tiotropium [place] (Spiriva Handihaler Inhaler) 1 puff DAILY INH 12/21/17 09:00 01/20/18 08:59 12/23/17 07:42 1 PUFF Methadone HCl (Dolophine Tab) 30 mg TID PO 12/21/17 09:00 01/04/18 08:59 12/23/17 08:47 30 MG Ketorolac Tromethamine (Toradol Inj) 15 mg Q6H PRN IV 12/21/17 15:00 12/26/17 14:59 12/22/17 09:31 15 MG Sodium Chloride ([place] Nasal [place]) 2 sprays Q1H PRN NA 12/21/17 17:30 01/20/18 17:29 Vancomycin HCl (Consult) 1 ea UD PRN N/A 12/21/17 18:30 01/20/18 18:29 Heparin Sodium (Porcine) (Heparin 10 Unit/ ml 5 ml Flush) 5 ml PRN PRN FLUSH 12/21/17 19:00 01/20/18 18:59 12/23/17 10:42 5 ML Acetaminophen/ Hydrocodone Bitart ([place] 5/325 Tab) 1 tab Q4H PRN PO 12/21/17 19:15 01/04/18 19:14 12/23/17 08:50 1 TAB Phenazopyridine HCl (Pyridium Tab) 100 mg TID PRN PO 12/21/17 20:15 01/20/18 20:14 12/22/17 21:48 100 MG Verapamil HCl (Calan-Sr Tab) 120 mg QAM PO 12/22/17 09:00 01/21/18 08:59 12/23/17 08:45 120 MG Methylprednisolone Sodium Succinate 30 mg/Syringe 0.48 ml @ 1.5 mls/min Q6H IV 12/22/17 10:00 01/21/18 09:59 12/23/17 04:48 1.5 MLS/MIN Diazepam (Valium Tab) 2 mg Q8H PRN PO 12/22/17 10:45 01/21/18 10:44 Vancomycin HCl 1000 mg/Sodium Chloride 270 ml @ 125 mls/hr Q20H IV 12/22/17 12:00 01/05/18 11:59 12/23/17 07:59 125 MLS/HR Review of Systems Constitutional: + weakness, + fatigue Eyes: + worsening of vision, No diplopia ENT: No trouble swallowing Respiratory: No cough, No shortness of breath Cardiovascular: No chest pain, No palpitations Abdomen: No pain, No nausea Musculoskeletal: + joint pain Genitourinary - Female: No dysuria, No urinary incontinence Neurologic: + weakness, + balance problems, No memory loss, No numbness/ tingling Psychiatric: No depression symptoms, No anxiety Endocrine: + fatigue Hematologic / Lymphatic: No abnormal bleeding/bruising Integumentary: No rash Allergic / Immunologic: No hives Physical Exam Vital Signs (Past 24 Hrs): Date Time Temp Pulse Resp B/P (MAP) Pulse Ox O2 Delivery O2 Flow Rate FiO2 12/23/17 07:46 36.9 62 18 169/82 (111) 95 3.0 12/23/17 07:30 93 Nasal Cannula 3.0 12/23/17 00:39 93 Nasal Cannula 3.0 12/22/17 23:58 36.5 59 16 147/85 (105) 93 2.0 12/22/17 22:24 Nasal Cannula 3.0 12/22/17 16:00 Nasal Cannula 3.0 12/22/17 13:40 56 87/58 (68) Patient is right-handed. The patient is awake and alert. Speech is normal without aphasia or dysarthria. Mentation and thought processes are intact with full orientation and normal fund of knowledge. Mood and affect are normal and appropriate. Appearance and grooming are normal. Long and short-term memory are intact. The discs are sharp with positive venous pulsations. There are no exudates, hemorrhages, or blood vessel changes seen. Pupils are 4mm bilaterally and reactive to light. Extraocular eye muscles are intact without nystagmus. Visual acuity and visual campuzano seem normal grossly to confrontation. There are no deficits to sensation of the face bilaterally. Corneal reflexes are positive bilaterally. Facial strength and symmetry is normal bilaterally. Hearing seems intact grossly to voice and finger rub. Palate moves well without asymmetry. There is normal sternocleidomastoid and trapezius strength bilaterally. Tongue is midline with good strength bilaterally. Neck is with full range of motion with some discomfort. There are no cervical bruits. There are no cranial or ocular bruits. Heart is without murmur. Cervical, thoracic, and lumbar spine are nontender to palpation. Gait is not tested as she is bed-bound and her stance is poor sitting up in bed leaning to the left. With outstretched arms there is no drift. There are no resting, postural, or action tremors. There is no ataxia with [id number] testing. There is good facility in the hands. There are no abnormal involuntary movements noted. Motor strength is 5/5 diffusely for age and condition, in the arms bilaterally including deltoids, biceps, brachioradialis, wrist flexors and extensors, bus driver, and intrinsic hand muscles. Motor strength is 5/5 diffusely, for age and condition, in the legs bilaterally including hip flexors, quadriceps, hamstring , gastrocnemius, tibialis posterior, and peroneii muscles bilaterally. The right tibialis anterior is 4/5. The left is 5/5. Toe extensors are 4/5 on the right and 5/5 on the left. Patient has significant atrophy of the musculature diffusely distally in the hands and feet. The limbs have good tone without rigidity or spasticity, and there is no focal atrophy noted. Sensory examination is intact to pin and touch throughout the face and the upper extremities bilaterally. There is some slight decreased sensation in the feet bilaterally in a stocking distribution. Reflexes are 2/4 in the biceps, triceps, brachioradialis, and quadriceps tendons bilaterally. Achilles tendon reflexes are absent bilaterally. Toes are downgoing with plantar stimulation bilaterally. Peripheral pulses are present and of normal quality distally in all four limbs. There is no peripheral edema noted. Laboratory Results Past 24 Hours: 12/23/17 06:02 12/23/17 06:02 Test 12/23/17 06:02 Red Blood Count 3.80 M/uL (4.2-5.4) Mean Corpuscular Volume 98.4 fL (80-100) Mean Corpuscular Hemoglobin 29.2 pg (25-34) Mean Corpuscular Hemoglobin Concent 29.7 g/dl (32-36) RDW Standard Deviation 55.9 fL (36.4-46.3) RDW Coefficient of Variation 15.7 % (11.5-14.5) Mean Platelet Volume 12.8 fL (7.4-10.4) Anion Gap 5.0 mmol/L (3-11) Est Creatinine Clear Calc Drug Dose 29.9 ml/min Estimated GFR () 47.7 Estimated GFR (Non- 41.1 BUN/Creatinine Ratio 22.9 (10-20) Calcium Level 8.6 mg/dl (8.5-10.1) Imaging CT HEAD WITHOUT CONTRAST (CT) CLINICAL HISTORY: Persistent/progressive chronic daily headaches. COMPARISON STUDY: 11/29/2017 TECHNIQUE: Axial CT of the brain is performed from the vertex to the skull base. IV contrast was not administered for this examination. A dose lowering technique was utilized adhering to the principles of ALARA. CT DOSE: 537.48 mGy.cm FINDINGS: No intra or extra-axial mass lesions are visualized. There is no CT evidence of acute cortical infarction. There is no evidence of midline shift. There is no acute hemorrhage. No calvarial fractures are visualized. There are patchy white matter hypodensities likely on a small vessel basis. There is no evidence of pathologic ventricular dilatation. There is no evidence of acute sinusitis IMPRESSION: No acute intracranial findings Electronically signed by: Himanshu Cueto M.D. 12/23/2017 7:20 AM Dictated Date/Time: 12/23/2017 7:[address] DOSE: 334.59 mGy.cm HISTORY: severe posterior scalp pain, brisk reflexes TECHNIQUE: Multiaxial CT images of the cervical spine were performed and reformatted in the sagittal and coronal plane without the use of contrast. A dose lowering technique was utilized adhering to the principles of ALARA. COMPARISON: None. FINDINGS: No fractures. No subluxation. Prevertebral soft tissues and the C1-C2 interval are intact. No pneumothorax. Exaggeration of the normal lordotic curvature. There is mild disc space narrowing at C4-C5 and C5-C6. No significant central canal narrowing by CT technique. IMPRESSION: No fractures within the cervical spine. Electronically signed by: Stoney Bryson M.D. 12/21/2017 4:00 PM Impression 1. Headaches These have been about 2 months in duration chronic and non migrainous. I believe the origin to these headaches lies in the cervical spine with degenerative conditions and nerve irritation. This is creating muscle tension with bioccipital and frontal headaches. They have been refractory to most medications she has tried including steroids. Neurologically she has no deficits referable to the head or spinal cord. There is no encephalopathy or meningeal signs. CT scan of the head and neck were largely unremarkable. 2. Chronic low back pain with right foot weakness, consistent with L5 radiculopathy. 3. Reflex and sensory changes consistent with generalized polyneuropathy involving predominantly sensory fibers. 4. Chronic pain on narcotics and methadone Plan 1. I see no need for additional neurologic testing at this time. She would not tolerate laying still for an MRI due to her spine condition and would likely need general anesthesia 2. Consider the addition of doxepin 25 milligrams each evening for chronic pain control. 3. Agree with pain management as an outpatient. 4. Consider muscle relaxers such as cyclobenzaprine 5 milligrams b.i.d. or t.i.d. 5. Patient believes that low dose of diazepam helped. Diazepam is an excellent muscle relaxer. This could be used instead of cyclobenzaprine but that would mean she is on benzodiazepines and narcotics which is a poor mix. Low doses while she is in the hospital is reasonable. 6. Consider increasing baclofen to 20 milligrams 3 times a day. Overall, I spent 100 minutes with this case including records review, direct evaluation the patient at bedside, and discussion of the case with Dr. Rowe, the clinical staff, and the patient herself at bedside including differential diagnosis and treatment options.
--- NOTE | 2017-12-23 15:43 | Hospitalist Progress Note ---
Hospitalist Progress Note Date of Service Dec 23, 2017. Subjective Pt evaluation today including: conversation w/ patient, conversation w/ virtualization consultant (Infectious disease, neurology) Patient still complains of a constant headache it is mostly on the right parietal region and down into the posterior neck and occiput. She would like to try an increased dose of the Valium with increased frequency as she states it does not last 8 hours. She had a small bowel movement today but otherwise has been quite constipated. She is tolerating p.o. She is also complaining of worsening peripheral neuropathy-since her headache started 6 weeks ago, the pain in her feet has started to radiate up her legs and is really bothering her. She reports being on Lyrica in the past which helped her neuropathy and would like to try that again. Constitutional: No fever, No chills Respiratory: No shortness of breath Cardiovascular: No chest pain All Other Systems: Reviewed and Negative Objective Vital Signs Date Time Temp Pulse Resp B/P (MAP) Pulse Ox O2 Delivery O2 Flow Rate FiO2 12/23/17 07:46 36.9 62 18 169/82 (111) 95 3.0 12/23/17 07:30 93 Nasal Cannula 3.0 12/23/17 00:39 93 Nasal Cannula 3.0 12/22/17 23:58 36.5 59 16 147/85 (105) 93 2.0 12/22/17 22:24 Nasal Cannula 3.0 12/22/17 16:00 Nasal Cannula 3.0 Physical Exam General Appearance: WD/WN, no apparent distress Eyes: normal inspection, EOMI, sclerae normal ENT: hearing grossly normal, + pertinent finding (Positive tenderness to palpation over right parietal region, no masses of the scalp; positive tenderness to palpation of the cervical paraspinous muscles but that actually relieved her pain with palpation) Neck: trachea midline Respiratory/Chest: lungs clear, normal breath sounds, no respiratory distress, no accessory muscle use Cardiovascular: regular rate, rhythm, no edema, no murmur Abdomen: normal bowel sounds, non tender, soft Extremities: no pedal edema, no calf tenderness, + pertinent finding (Atrophy of the muscles of the lower extremities, foot drop bilaterally; severe kyphosis) Neurologic/Psychiatric: alert, normal mood/affect, oriented x 3 Skin: normal color, warm/dry, no rash Laboratory Results Last 24 Hours Test 12/23/17 06:02 White Blood Count 10.80 K/uL Red Blood Count 3.80 M/uL Hemoglobin 11.1 g/dL Hematocrit 37.4 % Mean Corpuscular Volume 98.4 fL Mean Corpuscular Hemoglobin 29.2 pg Mean Corpuscular Hemoglobin Concent 29.7 g/dl RDW Standard Deviation 55.9 fL RDW Coefficient of Variation 15.7 % Platelet Count 125 K/uL Mean Platelet Volume 12.8 fL Sodium Level 141 mmol/L Potassium Level 4.7 mmol/L Chloride Level 105 mmol/L Carbon Dioxide Level 31 mmol/L Anion Gap 5.0 mmol/L Blood Urea Nitrogen 30 mg/dl Creatinine 1.31 mg/dl Est Creatinine Clear Calc Drug Dose 29.9 ml/min Estimated GFR () 47.7 Estimated GFR (Non- 41.1 BUN/Creatinine Ratio 22.9 Random Glucose 145 mg/dl Calcium Level 8.6 mg/dl Assessment and Plan This patient is a 71 y/o F Hx HTN, HPL, hyperparathyroidism, CKD III, gout, chronic diastolic CHF, COPD - 02-dependient/chronic hypoxic respiratory failure , bronchiectasis and recurrent pneumonia, and depression. The pt resides at [facility] and had apparently developed rigors a few days prior to admission. She was treated with Tamiflu empirically. She was reported to be somnolent and was sent to the ER as a result. The pt was initially unable to provide any information at present and was difficult to wake up. She was afebrile on arrival to the ER. She is not exhibiting increased oxygen demands. The initial labs were notable for ARF, leukocytosis (which may be chronic), hypoglycemia. A CXR is equivocal. Right eye vitreous hemorrhage-appreciate ophthalmology evaluation. Fax placed on hold as was subcutaneous heparin. -She needs to follow-up with a retinal specialist after discharge Abdominal pain - likely due to severe constipation secondary to opioid use. Abdomen exam is benign. Urine cx negative x 2 in the last week. She does not have a UTI Had small formed bowel movement today. CT abd/pelvis only with constipation. Continue aggressive bowel regimen. Giving milk of magnesia and MiraLAX today If not improving then consider go-lytely prep or miralax prep. Posterior scalp/occipital headaches/neck pain chronic, daily, persistent going back to at least October. Has had negative MRI brain and head CT in the last 4-[address] was earlier in November and again negative today. MRI brain was in early October. Sed rate is 5. CT neck to r/o spinal stenosis causing her pain - mild DJD seen but nothing severe. -Appreciate neurology consultation with recommendation to substitute verapamil for her nifedipine for prophylaxis, but likely thinks tension headaches-will increase Valium to 5 mg p.o. every 6 hours as needed, consider adding Flexeril if not improved with Valium -She might benefit from an occipital nerve block or something similar. She is set up to see Trenton ALEGRIA in Pain clinic on 12/26/17 at 1:50 PM. -Wean IV steroids down to every 8 hours today and eventually revert back to home prednisone dose -Continue IV ketorolac as needed -Continue baclofen Recent sinusitis - has had copious antibiotics as of late. She has been on broad-spectrum IV abx while awaiting blood cultures. I don't believe she has ongoing sinusitis at this time. CT of the head today with normal sinuses Imipenem discontinued yesterday, will discontinue vancomycin today as her repeat blood cultures are negative-1 out of 2 sets of blood cultures positive initially but likely contaminant with coagulase negative staph -Appreciate ID consultation Chronic pain syndrome/chronic opioid dependence cont methadone, hydrocodone as needed CKD stage 3/history of renal artery stenosis s/p stents - creatinine is at baseline, but slightly increased from previous -Avoid nephrotoxins -Renally dose medications. Chronic hypoxic respiratory failure 2nd to COPD - stable; continue usual outpatient meds. Takes chronic prednisone for the COPD. HTN - labile; typically in the hospital she has severe lability in her BPs and is very sensitive to IV steroids. She is sensitive to PRN BP meds as well. Simply follow her BPs for now. Chronic diastolic CHF - compensated. Severe osteoporosis complicated by multiple compression fractures - cont usual outpatient pain meds. Gout: No acute issues -Continue allopurinol Depression-stable -Continue duloxetine and Remeron Prophylaxis-SCDs only given vitreous hemorrhage Disposition-remain on medical floor and eventually returned to [facility]
[2017-12-23] MEDS ORDERED: POLYETHYLENE (MIRALAX) 17 GM PACK PO SCH (16:00)
[2017-12-23 16:22] VITALS: O2SAT 95
[2017-12-23] MEDS: DIAZEPAM 2MG TAB PO PRN ×2 (16:35→22:36)
[2017-12-23] MEDS: PREGABALIN 50 MG CAP PO SCH (21:26)
[2017-12-23] MEDS: MIRTAZAPINE TAB 15 MG TAB PO SCH (21:28)
[2017-12-23 22:42] VITALS: BP 161/81; PULSE 70; TEMP 36.6; O2SAT 93
[2017-12-24] MEDS: METHYLPREDNISOLONE IV 30 MG in SYRINGE 0 ML IV SCH ×3 (02:26→22:04)
[2017-12-24] MEDS: HYDROCODONE/ACETAMIN 5/325MG TAB PO PRN (02:31)
[2017-12-24] MEDS ORDERED: VANCOMYCIN TROUGH ONE ×2 (03:30→18:30)
[2017-12-24] MEDS: DIAZEPAM 2MG TAB PO PRN ×2 (05:28→12:00)
[2017-12-24] MEDS: DULOXETINE (CYMBALTA) 30 MG CAP PO SCH (08:00)
[2017-12-24 08:21] VITALS: BP 177/94; PULSE 67; TEMP 36.3; O2SAT 94
[2017-12-24] MEDS: FLUTICASONE/SALMETEROL 250/50 (ADVAIR) 14 PUFF/1 INHALER INH SCH ×2 (09:42→22:02)
[2017-12-24] MEDS: IPRATROPIUM BROMIDE/ALBUTEROL respimat INH INH SCH ×4 (09:43→22:02)
[2017-12-24] MEDS: TIOTROPIUM BROMIDE 5 PUFF/90 MCG INH INH SCH (09:43)
[2017-12-24] MEDS: HydrALAZINE 10 MG TAB PO SCH ×3 (09:44→22:03)
[2017-12-24] MEDS: CALCITONIN SALMON NA 200 IU/AC 3.7 ML BTL NAE SCH (09:44)
[2017-12-24] MEDS: VERAPAMIL HCL 120 MG TABCR PO SCH (09:47)
[2017-12-24] MEDS: LORATADINE 10 MG TAB PO SCH (09:51)
[2017-12-24] MEDS: CARVEDILOL 25 MG TAB PO SCH ×2 (09:51→22:05)
[2017-12-24] MEDS: BACLOFEN 10 MG TAB PO SCH ×3 (09:53→22:03)
[2017-12-24] MEDS: METHADONE HCL 10 MG TAB PO SCH ×3 (09:53→22:02)
[2017-12-24] MEDS: POLYETHYLENE (MIRALAX) 17 GM PACK PO SCH (09:54)
[2017-12-24] MEDS: PREGABALIN 50 MG CAP PO SCH ×2 (09:54→22:02)
[2017-12-24] MEDS: PANTOprazole SOD 40 MG TAB PO SCH ×2 (09:54→22:03)
[2017-12-24] MEDS: SENNA 8.6 MG TAB PO SCH (09:55)
[2017-12-24] MEDS: THIAMINE HCL 100 MG TAB PO SCH (09:56)
[2017-12-24] MEDS: ALLOPURINOL 100 MG TAB PO SCH ×2 (09:56→22:04)
[2017-12-24 10:00] VITALS: O2SAT 94
[2017-12-24] MEDS: ONDANSETRON INJ 2 MG/ML 2 ML VIAL IV PRN (10:08)
[2017-12-24 14:48] VITALS: BP 123/72; PULSE 72
[2017-12-24] MEDS ORDERED: MAGNESIUM CITRATE 296 ML/BTL PO ONE (15:45)
[2017-12-24 15:51] VITALS: BP 165/99; PULSE 67; TEMP 36.4; O2SAT 95
[2017-12-24 16:03] VITALS: O2SAT 95
--- NOTE | 2017-12-24 17:14 | Hospitalist Progress Note ---
Hospitalist Progress Note Date of Service Dec 24, 2017. Subjective Pt evaluation today including: conversation w/ patient Patient states her headache and neck pain are significantly improved today and describes Valium as a "miracle." She also reports her neuropathy in her feet was completely resolved with just 1 dose of Lyrica last night. She is very happy to be relieved of her head neck pain. She does report that by 5 hours after taking the Valium dose, it does wear off and the pain returns. She is asking to increase the frequency to every 5 hours. He is also complaining of severe constipation and would like something stronger to help with that. Denies chest pain or shortness of breath. All Other Systems: Reviewed and Negative Objective Vital Signs Date Time Temp Pulse Resp B/P (MAP) Pulse Ox O2 Delivery O2 Flow Rate FiO2 12/24/17 16:03 95 Nasal Cannula 2.0 12/24/17 15:51 36.4 67 18 165/99 (121) 95 Nasal Cannula 3.0 12/24/17 14:48 72 123/72 (89) 12/24/17 10:00 94 Nasal Cannula 3.0 12/24/17 08:21 36.3 67 20 177/94 (121) 94 Nasal Cannula 3.0 12/24/17 00:00 Nasal Cannula 2.0 12/23/17 22:42 36.6 70 18 161/81 (107) 93 Room Air Physical Exam General Appearance: WD/WN, no apparent distress Eyes: sclerae normal ENT: hearing grossly normal Neck: trachea midline Respiratory/Chest: lungs clear, normal breath sounds, no respiratory distress, no accessory muscle use Cardiovascular: regular rate, rhythm, no edema, + systolic murmur Abdomen: normal bowel sounds, soft (With mild distention and mild tenderness without guarding or rebound) Extremities: no pedal edema, no calf tenderness Neurologic/Psychiatric: alert, normal mood/affect, oriented x 3 Skin: normal color, warm/dry, no rash Assessment and Plan This patient is a 71 y/o F Hx HTN, HPL, hyperparathyroidism, CKD III, gout, chronic diastolic CHF, COPD - O2-dependent/chronic hypoxic respiratory failure, bronchiectasis and recurrent pneumonia, depression, severe osteoporosis complicated by multiple fractures, chronic back/hip pain on methadone, and recurrent UTI (U cx in 08/2017 pos. for Ecoli ESBL) s/p picc line in right arm for abx. She is presenting with urinary symptoms x 3 days, including dysuria, urinary frequency bladder discomfort, bilateral flank pain. Patient has been on Doxycycline x 1 week for a sinus infection. She complained of no improvement in symptoms including sinus headache, rhinorrhea, facial pressure. She also vomiting following initiation of doxycycline. And also with intractable posterior headache and neck pain. In the ED, Patient arrived afebrile, normotensive,, saturating well on 3 L. Patent with WBC count of 14.11, proBNP 2221, electrolytes wnl, UA unremarkable , Blood cx pending, CXR with bibasilar opacities attributed likely to atelectasis, CT abdomen showing bowel constipation. She received Fosfomycin, Toradol, 15 mg, Dilaudid, 2 mg IV x 2 1L of NS. Posterior scalp/occipital headaches/neck pain chronic, daily, persistent going back to at least October. Has had negative MRI brain and head CT in the last 4-[address] was earlier in November and again negative on 12/23. MRI brain was in early October. Sed rate is 5. CT neck to r/o spinal stenosis causing her pain - mild DJD seen but nothing severe. -Appreciate neurology consultation with recommendation to substitute verapamil for her nifedipine for prophylaxis, but likely thinks tension headaches She is now significantly improved after an increase Valium to 5 mg p.o. every 6 hours as needed -She might benefit from an occipital nerve block or something similar. She is set up to see Trenton ALEGRIA in Pain clinic on 12/26/17 at 1:50 PM. -Continue Valium 5 mg but change frequency to every 5 hours as per patient request as it wears off by the fifth hour -Continue heating pad to the posterior neck -Continue to wean IV steroids down to every 12 hours today and eventually revert back to home prednisone dose -Continue IV ketorolac as needed -Continue baclofen 10 mg 3 times daily Right eye vitreous hemorrhage-appreciate ophthalmology evaluation. Plavix placed on hold as was subcutaneous heparin. Unclear etiology -She needs to follow-up with a retinal specialist after discharge -Would continue to hold Plavix after discharge Abdominal pain - likely due to severe constipation secondary to opioid use. Abdomen exam is benign. Continues today despite milk of magnesia and MiraLAX Urine cx negative x 2 in the last week. She does not have a UTI Had small formed bowel movement today. CT abd/pelvis only with constipation. Continue aggressive bowel regimen. -We will give magnesium citrate bottle 1 today -We will give GoLYTELY prep tomorrow if no success Recent sinusitis - has had copious antibiotics as of late. She has been on broad-spectrum IV abx while awaiting blood cultures. I don't believe she has ongoing sinusitis at this time. CT of the head today with normal sinuses Imipenem and vancomycin since discontinued as her repeat blood cultures are negative-1 out of 2 sets of blood cultures positive initially but likely contaminant with coagulase negative staph -Appreciate ID consultation Chronic pain syndrome/chronic opioid dependence cont methadone as needed CKD stage 3/history of renal artery stenosis s/p stents - creatinine is at baseline, but slightly increased from previous -Avoid nephrotoxins -Renally dose medications. -Follow BMP periodically Chronic hypoxic respiratory failure 2nd to COPD - stable; continue usual outpatient meds. Takes chronic prednisone for the COPD. HTN - labile; typically in the hospital she has severe lability in her BPs and is very sensitive to IV steroids. She is sensitive to PRN BP meds as well. Simply follow her BPs for now. Chronic diastolic CHF - compensated. Severe osteoporosis complicated by multiple compression fractures - cont usual outpatient pain meds. Gout: No acute issues -Continue allopurinol Depression-stable -Continue duloxetine and Remeron Prophylaxis-SCDs only given vitreous hemorrhage Disposition-remain on medical floor and eventually returned to [facility] likely tomorrow if can move her bowels
[2017-12-24] MEDS ORDERED: NURSING VERBAL MED ORDER ONE (18:15)
[2017-12-24] MEDS: MAGNESIUM CITRATE 296 ML/BTL PO SCH (19:16)
[2017-12-24] MEDS: DIAZEPAM 5MG TAB PO PRN (22:02)
[2017-12-24] MEDS: MIRTAZAPINE TAB 15 MG TAB PO SCH (22:05)
[2017-12-25] MEDS: DIAZEPAM 5MG TAB PO PRN ×3 (05:58→17:12)
[2017-12-25 07:23] VITALS: BP 142/84; PULSE 63; TEMP 36.4; O2SAT 94
[2017-12-25] MEDS: BACLOFEN 10 MG TAB PO SCH ×2 (08:00→14:00)
[2017-12-25] MEDS: IPRATROPIUM BROMIDE/ALBUTEROL respimat INH INH SCH ×3 (08:00→16:04)
[2017-12-25 11:10] VITALS: BP 123/76; PULSE 58
[2017-12-25] MEDS: METHYLPREDNISOLONE IV 30 MG in SYRINGE 0 ML IV SCH (11:24)
[2017-12-25] MEDS: FLUTICASONE/SALMETEROL 250/50 (ADVAIR) 14 PUFF/1 INHALER INH SCH (11:25)
[2017-12-25] MEDS: CARVEDILOL 25 MG TAB PO SCH (11:29)
[2017-12-25] MEDS: PREGABALIN 50 MG CAP PO SCH (11:30)
[2017-12-25] MEDS: METHADONE HCL 10 MG TAB PO SCH ×2 (11:30→13:24)
[2017-12-25] MEDS: VERAPAMIL HCL 120 MG TABCR PO SCH (11:31)
[2017-12-25] MEDS: DULOXETINE (CYMBALTA) 30 MG CAP PO SCH (11:31)
[2017-12-25] MEDS: HydrALAZINE 10 MG TAB PO SCH ×2 (11:32→13:23)
[2017-12-25] MEDS: ALLOPURINOL 100 MG TAB PO SCH (11:32)
[2017-12-25] MEDS: THIAMINE HCL 100 MG TAB PO SCH (11:33)
[2017-12-25] MEDS: LORATADINE 10 MG TAB PO SCH (11:33)
[2017-12-25] MEDS: PANTOprazole SOD 40 MG TAB PO SCH (11:33)
[2017-12-25] MEDS: POLYETHYLENE (MIRALAX) 17 GM PACK PO SCH (11:33)
[2017-12-25] MEDS: TIOTROPIUM BROMIDE 5 PUFF/90 MCG INH INH SCH (11:34)
[2017-12-25] MEDS: SENNA 8.6 MG TAB PO SCH (11:34)
[2017-12-25] MEDS: CALCITONIN SALMON NA 200 IU/AC 3.7 ML BTL NAE SCH (11:46)
[2017-12-25] MEDS ORDERED: MAGNESIUM CITRATE 296 ML/BTL PO STA (13:16)
[2017-12-25] MEDS ORDERED: MILK AND MOLASSES ENEMA PR STA (13:16)
[2017-12-25 15:27] VITALS: BP 121/78; PULSE 52; O2SAT 93
[2017-12-25] MEDS: MAGNESIUM CITRATE 296 ML/BTL PO SCH (16:04)
[2017-12-25 16:33] VITALS: BP 121/78; PULSE 52; TEMP 36.4; O2SAT 93
[2017-12-25] MEDS ORDERED: SENN-63 PO (16:41)
[2017-12-25] MEDS ORDERED: VLM5 PO (16:41)
[2017-12-25] MEDS ORDERED: VERA1TAB52 PO (16:41)
[2017-12-25] MEDS ORDERED: POLY335019 PO (16:41)
[2017-12-25] MEDS ORDERED: PRD10 PO (16:41)
[2017-12-25] MEDS ORDERED: LYR50 PO (16:41)
--- NOTE | 2017-12-25 16:48 | Discharge Instructions ---
Discharge Instructions Date of Service Dec 25, 2017. Admission Reason for Admission: Suspected UTI, headache Discharge Discharge Diagnosis / Problem: Intractable headache, severe constipation Discharge Goals Goal(s): Improve disease control, Diagnostic testing, Therapeutic intervention Activity Recommendations Activity Level: Assistance Required . Additional Information Patient informed of condition: Yes Advance Directives: No DNR: No Level of Care: Skilled Communicable Disease: No Prognosis: Improving Oxygen at (LPM): 3 L nasal cannula continuously White Catheter: No Instructions / Follow-Up Instructions / Follow-Up This patient is a 71 y/o F Hx HTN, HPL, hyperparathyroidism, CKD III, gout, chronic diastolic CHF, COPD - O2-dependent/chronic hypoxic respiratory failure, bronchiectasis and recurrent pneumonia, depression, severe osteoporosis complicated by multiple fractures, chronic back/hip pain on methadone, and recurrent UTI (U cx in 08/2017 pos. for Ecoli ESBL) s/p picc line in right arm for abx. She is presenting with urinary symptoms x 3 days, including dysuria, urinary frequency bladder discomfort, bilateral flank pain. Patient has been on Doxycycline x 1 week for a sinus infection. She complained of no improvement in symptoms including sinus headache, rhinorrhea, facial pressure. She also vomiting following initiation of doxycycline. And also with intractable posterior headache and neck pain. In the ED, Patient arrived afebrile, normotensive,, saturating well on 3 L. Patent with WBC count of 14.11, proBNP 2221, electrolytes wnl, UA unremarkable , Blood cx pending, CXR with bibasilar opacities attributed likely to atelectasis, CT abdomen showing bowel constipation. She received Fosfomycin, Toradol, 15 mg, Dilaudid, 2 mg IV x 2 1L of NS. Posterior scalp/occipital headaches/neck pain chronic, daily, persistent going back to at least October. Has had negative MRI brain and head CT in the last 4-[address] was earlier in November and again negative on 12/23. MRI brain was in early October. Sed rate is 5. CT neck to r/o spinal stenosis causing her pain - mild DJD seen but nothing severe. No completely resolved with taking Valium-should continue on Valium 5 mg every 5 hours as per her request to break the cycle of her tension headache-after 2 weeks, this should be made as needed -Appreciate neurology consultation with recommendation to substitute verapamil for her nifedipine for prophylaxis, but likely thinks tension headaches -She might benefit from an occipital nerve block or something similar. She is set up to see Trenton ALEGRIA in Pain clinic on 12/26/17 at 1:50 PM. -Continue heating pad to the posterior neck -Continue to wean steroids down-switching to p.o. prednisone 60 mg daily for tomorrow and down by 10 mg every 2 days until back to 2.5 mg home dose -Continue baclofen 10 mg 3 times daily -Follow-up with neurology in about 2 weeks Right eye vitreous hemorrhage-appreciate ophthalmology evaluation. Plavix placed on hold as was subcutaneous heparin. Unclear etiology -She needs to follow-up with a retinal specialist after discharge-recommend either Dr. Goodson at [facility], or [facility] retinal specialist at [facility] -Would continue to hold Plavix after discharge Abdominal pain/flank pain/urinary symptoms-all likely due to severe constipation secondary to opioid use. Abdomen exam is benign. Was given a very aggressive bowel regimen and finally had a moderate-sized bowel movement on the day of discharge. Urine cx negative x 2 in the last week. She does not have a UTI CT abd/pelvis only with constipation. Continue aggressive bowel regimen. -Should continue on MiraLAX 17 g p.o. twice daily, increase sennosides to twice a day, continue enemas as needed Recent sinusitis - has had copious antibiotics as of late. Initially she was placed on broad-spectrum IV abx while awaiting blood cultures. I don't believe she has ongoing sinusitis at this time. CT of the head here with normal sinuses She is no longer having symptoms in the nasal region-she feels the steroids have helped Imipenem and vancomycin since discontinued as her repeat blood cultures are negative-1 out of 2 sets of blood cultures positive initially but likely contaminant with coagulase negative staph -Appreciate ID consultation Chronic pain syndrome/chronic opioid dependence cont methadone as needed CKD stage 3/history of renal artery stenosis s/p stents - creatinine is at baseline, but slightly increased from previous -Avoid nephrotoxins -Renally dose medications. -Follow BMP periodically Chronic hypoxic respiratory failure 2nd to COPD - stable; continue usual outpatient meds. Takes chronic prednisone for the COPD. HTN - labile; typically in the hospital she has severe lability in her BPs and is very sensitive to IV steroids. She is sensitive to PRN BP meds as well. Simply follow her BPs for now. Chronic diastolic CHF - compensated. Severe osteoporosis complicated by multiple compression fractures - cont usual outpatient pain meds. Gout: No acute issues -Continue allopurinol Depression-stable -Continue duloxetine and Remeron Stable for discharge back to [facility] Current Hospital Diet Patient's current hospital diet: AHA Diet (Heart Healthy) Discharge Diet Recommended Diet: AHA Diet (Heart Healthy) Procedures Procedures Performed: CT head CT cervical spine CT abdomen/pelvis Chest x-ray Pending Studies Studies pending at discharge: no Physician Orders On Transfer Special Precautions: Fall risk Dressing Changes: None IV Therapy: None Vital Signs: Routine Weigh: Routine POLST Discussion: Not Applicable Laboratory Results Hemoglobin A1c Test 09/27/17 05:00 Range/Units Estimated Average Glucose 94 mg/dl Hemoglobin A1c 4.9 4.5-5.6 % Medical Emergencies . Who to Call and When: Medical Emergencies: If at any time you feel your situation is an emergency, please call 911 immediately. . Non-Emergent Contact Non-Emergency issues call your: Primary Care Provider Call Non-Emergent contact if: temperature is above 101, your pain is not controlled, your pain is worsening, your pain is unusual for you, your pain is concerning you, you have any medication questions . . "Provider Documentation" section prepared by Elenita Rowe. . Core Measure Problem Core Measures: None [place] Drug Monitoring Program Search Results: patient reviewed within database, no issues identified
--- NOTE | 2017-12-25 16:51 | Discharge Summary ---
Discharge Summary Date of Service Dec 25, 2017. Discharge Summary Admission Date: Dec 20, 2017 at 21:50 Discharge Date: Dec 25, 2017 Discharge Disposition: half-way facility Principal Diagnosis: Intractable headache, severe constipation Problems/Secondary Diagnoses: HTN HPL Hyperparathyroidism CKD III Gout Chronic diastolic CHF COPD - O2-dependent/chronic hypoxic respiratory failure Bronchiectasis and recurrent pneumonia Depression Severe osteoporosis complicated by multiple fractures, chronic back/hip pain on methadone Ambulatory dysfunction/bedbound status H/o recurrent UTI Right eye vitreous hemorrhage Abdominal pain/flank pain Recent sinusitis Chronic pain syndrome/chronic opioid dependence History of renal artery stenosis s/p stents Immunizations: Have You Had Influenza Vaccine: Yes Influenza Vaccine Date: Mar 01, 2013 History of Tetanus Vaccine?: Yes Tetanus Immunization Date: Dec 18, 2009 History of Pneumococcal: Yes Pneumococcal Date: Jun 01, 2012 History of Hepatitis B Vaccine: No Procedures: CT head CT cervical spine CT abdomen/pelvis Chest x-ray Consultations: Neurology Ophthalmology Infectious disease Medication Reconciliation New Medications: Prednisone (Prednisone) 10 Mg Tab 60 MG PO QAM for 12 Days x 2 days then decrease by 10mg every 2 days until back to usual dose prednisone 2.5mg daily Diazepam (Diazepam) 5 Mg Tab 5 MG PO Q5H PRN for neck/head pain for 14 Days, #56 TAB and then can take prn return of headache or neck pain Pregabalin (Lyrica) 50 Mg Cap 50 MG PO BID for 30 Days, #60 CAP Verapamil Hcl (Verapamil Hcl Er) 120 Mg Tab 120 MG PO QAM for 30 Days, TAB Changed Medications: Polyethylene Glycol 3350 (Miralax) 1 Pow Pow 17 GM PO BID for 30 Days (Changed from: QAM) Sennosides (Senokot) 8.6 Mg Tab 8.6 MG PO BID for 30 Days, TAB (Changed from: QAM) Continued Medications: Acetaminophen (Tylenol) 325 Mg Tab 650 MG PO Q6 PRN for Pain or Fever, TAB NEEDED FOR PAIN # 1- 10 OR TEMP > 101F. NTE 3GM APAP /24HRS. Albuterol Sulfate (Albuterol Sulfate) 1.25 Mg/3 Ml Neb 1 VIAL NEB Q4 PRN for SOB/Wheezing for 5 Days, #75 ML Allopurinol (Zyloprim) 100 Mg Tab 100 MG PO BID, TAB Baclofen (Lioresal) 10 Mg Tab 10 MG PO TID, TAB Bisacodyl (Dulcolax) 10 Mg Sup 1 SUPP NC UD PRN for Constipation, SUP IF NO RESULTS FROM MOM Calcitonin [place] (Calcitonin-[place]) 30 [place]/3.7 Ml Soln 1 SPRAY ERIC QAM Carvedilol (Coreg) 25 Mg Tab 25 MG PO BID, TAB hold for ap heart rate <50 Cholecalciferol (D-1000) 1,000 Unit Tab 4000 UNITS PO QAM Dextrose (Diabetic Use) (Insta-Glucose) 77.4 % Gel 1 APPLN PO GIVE EVERY 15 MINUTES NEEDED FOR HYPOGLYCEMIA BLOOD GLUCOSE LESS THAN 60 AND/OR SYMPTOMATIC HYPOGLYCEMIA ( MUST BE RESPONSIVE AND ABLE TO SWALLOW) Doxepin HCl (Antipruritic) (Doxepin Hydrochloride) 5 % Cre 1 APPLN TOP Q6 PRN for Pain Duloxetine HCl (Cymbalta) 30 Mg Cap 30 MG PO QAM, CAP 2 Refills Epinephrine (Epipen) 0.3 Mg/0.3 Ml Inj 0.3 MG IM UD PRN for ALLERGIC REACTION Fluticasone Prop/Salmeterol (Advair Diskus 250/50 60 Dose) 1 Ea Aerp 1 PUFFS INH BID, INHALER Glucagon (Glucagon Emergency Kit) 1 Mg Kit 1 APPLN IM EVERY 15 MINS NEEDED FOR HYPOGLYCEMIA BLOOD GLUCOSE < 50 AND OR SYMPTOMATIC/UNRESPONSIVE HYPOGLYCEMIA. MAY REPEAT IN 15 MINS IF NEEDED Heparin Sod (Porcine) (Heparin 100 Unit/Ml 5ML Flush) 5 Ml Inj 5 ML IV PRN, EA Hydralazine HCl (Hydralazine HCl) 10 Mg Tab 10 MG PO TID for 30 Days, #90 TAB Ipratropium-Albuterol (Combivent Respimat) 1 Aer Aer 1 PUFFS INH QID, INH Lidocaine (Anorectal) (Lidocaine) 5 % Cre 1 APPLN TOP Q6 PRN for Pain TO RIGHT FOOT. APPLY AFTER DOXEPIN CREAM Loratadine (Claritin) 10 Mg Tab 10 MG PO DAILY, TAB Magnesium Hydroxide (Milk Of Magnesia) 30 Ml Susp 30 ML PO UD PRN for Constipation, ML Methadone HCl (Methadone HCl) 10 Mg Tab 30 MG PO TID Mineral Oil (Enema Mineral Oil) 1 [place] 1 BTL NC UD PRN for Constipation IF NO RESULT FROM DULCOLAX Mirtazapine (Remeron) 15 Mg Tab 15 MG PO HS Multivitamin (Multivitamin) Tab 1 TAB PO QAM, TAB Nitrofurantoin Macrocrystal (Nitrofurantoin Macrocryst) 50 Mg Cap 50 MG PO DAILY for 90 Days, #90 CAP 3 Refills Nystatin (Topical) (Nystop) 100,000 Unit/Gm Pow 1 APPLN TOP BID Ondansetron (Ondansetron Hcl) 2 Mg/Ml Inj 4 MG IV Q6 PRN for Nausea or Vomiting, EA Ondasetron Odt (Zofran Odt) 4 Mg Tab 4 MG SL Q6H PRN for Nausea, #6 TAB Pantoprazole (Protonix) 40 Mg Tab 40 MG PO BID, TAB Prednisone (Prednisone) 2.5 Mg Tab 2.5 MG PO DAILY, TAB Probiotic Product (Probiotic) 1 Tab Tab 250 MG PO BID Promethazine (Phenergan Suppository) 25 Mg Supp 25 MG NC Q6H PRN for Nausea, #10 SUPP Saline (Saline Nasal [place]) 0.65 % Spr 2 SPRAYS ERIC Q8 PRN for Nasal Congestion Sodium Chloride ([place] Saline Nasal) 36 Appln/14.1 Gm Gel 1 APPLN ERIC BID Sumatriptan Succinate (Imitrex) 25 Mg Tab 25 MG PO PRN, TAB Thiamine HCl (Vitamin B-1) 100 Mg Tab 200 MG PO QAM for 30 Days, #60 TAB Tiotropium [place] (Spiriva [place]er) 30 Puff/540 Mcg Aerp 1 CAP INH DAILY, INHALER Discontinued Medications: Clopidogrel Bisulfate (Plavix) 75 Mg Tab 75 MG PO QAM Ferrous Sulfate (Kp Ferrous Sulfate) 325 Mg Tab 325 MG PO BID Loperamide Hcl (Imodium) 2 Mg Cap 2 MG PO Q6 PRN for LOOSE STOOLS, CAP Nifedipine (Procardia Xl Ext Rel) 30 Mg Tab 30 MG PO QAM for 30 Days, #30 TAB Potassium Chloride (Micro-K Ext Rel) 10 Meq Capcr 10 MEQ PO QAM, CAP Probiotic Product (Probiotic) 1 Tab Tab 250 MG PO DAILY Pseudoephedrine-Guaifenesin (Mucinex D) 1 Tab Tab 1 TAB PO BID for 10 Days, #20 TAB Discharge Exam Feeling so much better. Headache and neck pain completely resolved as long as takes the valium. Was able to have two BMs today after aggressive bowel regimen. Was having some abd pains prior to that. Feels ready for discharge Physical Exam General Appearance: WD/WN, no apparent distress Eyes: sclerae normal ENT: hearing grossly normal Neck: trachea midline Respiratory/Chest: lungs clear, normal breath sounds, no respiratory distress, no accessory muscle use Cardiovascular: regular rate, rhythm, no edema, + systolic murmur Abdomen: normal bowel sounds, soft (With mild distention and mild tenderness without guarding or rebound) Extremities: no pedal edema, no calf tenderness Neurologic/Psychiatric: alert, normal mood/affect, oriented x 3 Skin: normal color, warm/dry, no rash Review of Systems: Constitutional: No problem reported Eyes: + worsening of vision (in right eye) ENT: + problem reported Respiratory: + problem reported Cardiovascular: + problem reported Abdomen: + constipation Musculoskeletal: No problem reported Genitourinary - Female: No problem reported Neurologic: No problem reported Psychiatric: No problem reported Endocrine: No problem reported Hematologic / Lymphatic: No problem reported Integumentary: No problem reported Hospital Course This patient is a 71 y/o F Hx HTN, HPL, hyperparathyroidism, CKD III, gout, chronic diastolic CHF, COPD - O2-dependent/chronic hypoxic respiratory failure, bronchiectasis and recurrent pneumonia, depression, severe osteoporosis complicated by multiple fractures, chronic back/hip pain on methadone, and recurrent UTI (U cx in 08/2017 pos. for Ecoli ESBL) s/p picc line in right arm for abx. She is presenting with urinary symptoms x 3 days, including dysuria, urinary frequency bladder discomfort, bilateral flank pain. Patient has been on Doxycycline x 1 week for a sinus infection. She complained of no improvement in symptoms including sinus headache, rhinorrhea, facial pressure. She also vomiting following initiation of doxycycline. And also with intractable posterior headache and neck pain. In the ED, Patient arrived afebrile, normotensive,, saturating well on 3 L. Patent with WBC count of 14.11, proBNP 2221, electrolytes wnl, UA unremarkable , Blood cx pending, CXR with bibasilar opacities attributed likely to atelectasis, CT abdomen showing bowel constipation. She received Fosfomycin, Toradol, 15 mg, Dilaudid, 2 mg IV x 2 1L of NS. Posterior scalp/occipital headaches/neck pain chronic, daily, persistent going back to at least October. Has had negative MRI brain and head CT in the last 4-[address] was earlier in November and again negative on 12/23. MRI brain was in early October. Sed rate is 5. CT neck to r/o spinal stenosis causing her pain - mild DJD seen but nothing severe. No completely resolved with taking Valium-should continue on Valium 5 mg every 5 hours as per her request to break the cycle of her tension headache-after 2 weeks, this should be made as needed -Appreciate neurology consultation with recommendation to substitute verapamil for her nifedipine for prophylaxis, but likely thinks tension headaches -She might benefit from an occipital nerve block or something similar. She is set up to see Trenton ALEGRIA in Pain clinic on 12/26/17 at 1:50 PM. -Continue heating pad to the posterior neck -Continue to wean steroids down-switching to p.o. prednisone 60 mg daily for tomorrow and down by 10 mg every 2 days until back to 2.5 mg home dose -Continue baclofen 10 mg 3 times daily -Follow-up with neurology in about 2 weeks Right eye vitreous hemorrhage-appreciate ophthalmology evaluation. Plavix placed on hold as was subcutaneous heparin. Unclear etiology -She needs to follow-up with a retinal specialist after discharge-recommend either Dr. Goodson at [facility], or [facility] retinal specialist at [facility] -Would continue to hold Plavix after discharge Abdominal pain/flank pain/urinary symptoms-all likely due to severe constipation secondary to opioid use. Abdomen exam is benign. Was given a very aggressive bowel regimen and finally had a moderate-sized bowel movement on the day of discharge. Urine cx negative x 2 in the last week. She does not have a UTI CT abd/pelvis only with constipation. Continue aggressive bowel regimen. -Should continue on MiraLAX 17 g p.o. twice daily, increase sennosides to twice a day, continue enemas as needed Recent sinusitis - has had copious antibiotics as of late. Initially she was placed on broad-spectrum IV abx while awaiting blood cultures. I don't believe she has ongoing sinusitis at this time. CT of the head here with normal sinuses She is no longer having symptoms in the nasal region-she feels the steroids have helped Imipenem and vancomycin since discontinued as her repeat blood cultures are negative-1 out of 2 sets of blood cultures positive initially but likely contaminant with coagulase negative staph -Appreciate ID consultation Chronic pain syndrome/chronic opioid dependence cont methadone as needed CKD stage 3/history of renal artery stenosis s/p stents - creatinine is at baseline, but slightly increased from previous -Avoid nephrotoxins -Renally dose medications. -Follow BMP periodically Chronic hypoxic respiratory failure 2nd to COPD - stable; continue usual outpatient meds. Takes chronic prednisone for the COPD. HTN - labile; typically in the hospital she has severe lability in her BPs and is very sensitive to IV steroids. She is sensitive to PRN BP meds as well. Simply follow her BPs for now. Chronic diastolic CHF - compensated. Severe osteoporosis complicated by multiple compression fractures - cont usual outpatient pain meds. Gout: No acute issues -Continue allopurinol Depression-stable -Continue duloxetine and Remeron Stable for discharge back to skilled nursing Total Time Spent: Greater than 30 minutes This includes examination of the patient, discharge planning, medication reconciliation, and communication with other providers. Discharge Instructions Please refer to the electronic Patient Visit Report (Discharge Instructions) for additional information. Additional Copies To Jimi Craig M.D.
[2017-12-25] MEDS ORDERED: MAGNESIUM CITRATE 296 ML/BTL PO SCH (18:00)
[2017-12-26] MEDS ORDERED: [UNRECOGNIZED DRUG - SUPPLY] TD (21:48)
[2017-12-26] MEDS ORDERED: PRED10TA PO (22:00)
[2017-12-26] MEDS ORDERED: ADVIN25/60 INH (22:07)
[2017-12-26] MEDS ORDERED: POLY335019 PO (22:16)
[2017-12-26] MEDS ORDERED: SENN-65 PO (22:19)
[2017-12-26] MEDS ORDERED: DIAZ-165 PO (22:26)
[2017-12-26] MEDS ORDERED: DEXT40GE PO (22:37)
[2017-12-26] MEDS ORDERED: PROM25IN13 IV (22:44)
[2017-12-26] MEDS ORDERED: OXGN (22:54)
== END 2017-12-25 17:30 | DRG 690 ==
LOC: EDBD → C.EDC 14:07 → C.MED 21:50 → ENRESERV 22:42 → C.MS4W 12-22 22:40
PROVIDERS: ADMIT Hospitalist; ATTEND Family Medicine
DX: N39.0 Urinary tract infection, site not specified (principal); I13.0 Hypertensive heart and chronic kidney disease with heart failure and stage 1 through stage 4 chronic kidney disease, or unspecified chronic kidney disease; I50.32 Chronic diastolic (congestive) heart failure; N18.3 Chronic kidney disease, stage 3 (moderate); J96.11 Chronic respiratory failure with hypoxia; J44.9 Chronic obstructive pulmonary disease, unspecified; Z86.718 Personal history of other venous thrombosis and embolism; Z87.440 Personal history of urinary (tract) infections; Z82.49 Family history of ischemic heart disease and other diseases of the circulatory system; Z87.891 Personal history of nicotine dependence; Z88.1 Allergy status to other antibiotic agents; K59.03 Drug induced constipation; Z79.52 Long term (current) use of systemic steroids; M81.0 Age-related osteoporosis without current pathological fracture; Z99.81 Dependence on supplemental oxygen; E21.3 Hyperparathyroidism, unspecified; M10.9 Gout, unspecified; F32.9 Major depressive disorder, single episode, unspecified; H43.11 Vitreous hemorrhage, right eye; T40.2X5A Adverse effect of other opioids, initial encounter; Y92.019 Unspecified place in single-family (private) house as the place of occurrence of the external cause

== ENCOUNTER 2017-12-26 20:40 | Inpatient (IN) | payer OTHER ==
[~2017-12-26] VITALS: Ht 149.9 cm; Wt 48.7 kg
[~2017-12-26 20:40] MED LIST changes: -AMOX1SUS74 PO; -CLOP1TAB54 PO; +FENTANYL CITRATE 100 MCG 2 ML CARP IV ONE; -FERR1TAB13 PO; -FLUT1SPR12 NAE; -FURO-85 PO; -IMD/2 PO; +LYR50 PO; -MELATAB2 PO; +MIDAZOLAM HCL 5 MG/ML 2ML VIAL IV ONE; -NIFE30TA2 PO; +NITR50CA4 PO; -POTA10CA28 PO; +PRD10 PO; +PROPOFOL IV EMULSION 10 MG/ML 100 ML VIAL ONE; +RAPID SEQUENCE INDUCTION BAG ONE; +SUMA25TA12 PO; +VERA1TAB52 PO; +VLM5 PO; -[UNRECOGNIZED DRUG - CODE] IV; -[UNRECOGNIZED DRUG - CODE] TOP
[2017-12-26] MEDS ORDERED: MIDAZOLAM HCL 1 MG/ML 2ML VIAL IV STA ×3 (20:50→21:46)
[2017-12-26] MEDS ORDERED: FENTANYL CITRATE INJ 50 MCG/1 ML 2 ML VIAL IV STA ×3 (20:50→21:46)
[2017-12-26] MEDS ORDERED: SODIUM CHLORIDE 0.9% 1000ML 1,000 ML IV STA (20:50)
--- NOTE | 2017-12-26 21:16 | DIAGNOSTIC IMAGING REPORT ---
CHEST ONE VIEW PORTABLE HISTORY: 72 years-old Female EVALUATE WEAKNESS acute weakness. Patient is reportedly unresponsive COMPARISON: Chest radiograph 12/20/2017 TECHNIQUE: Portable supine AP view of the chest FINDINGS: Endotracheal tube is noted with distal tip overlying the midline approximately 1.4 cm superior to the level of the ramandeep. The heart is enlarged. Calcification of the aorta. Pulmonary vascular congestion. Interval development of interstitial opacities. Right-sided PICC appears unchanged. Alveolar opacities about the left greater than right lung bases. No pneumothorax or large pleural effusion. Lungs are hypoinflated. Multiple vertebroplasty changes with ORIF changes of the left humerus. Demineralized appearance of the bones. Multiple remote rib fractures. IMPRESSION: 1. Endotracheal tube overlies the midline, 1.4 cm superior to the ramandeep. 2. Cardiomegaly with suggested mild pulmonary edema. 3. Alveolar opacities of the left greater than right lung bases suggest atelectasis or pneumonia. The above report was generated using voice recognition software. It may contain grammatical, syntax or spelling errors. Electronically signed by: Alejandro Mitchell M.D. 12/26/2017 9:15 PM Dictated Date/Time: 12/26/2017 9:12 PM
[2017-12-26] MEDS ORDERED: PIPERACILLIN/TAZOBACTAM 4.5 GM/100ML D5W IV STA (21:21)
[2017-12-26] MEDS ORDERED: VANCOMYCIN IV 1,500 MG in SODIUM CHLORIDE 0.9% 500ML 500 ML IV STA (21:21)
[2017-12-26] MEDS ORDERED: VANCOMYCIN CONSULT ACTIVE PRN (21:30)
--- NOTE | 2017-12-26 21:40 | DIAGNOSTIC IMAGING REPORT ---
HEAD WITHOUT CONTRAST (CT) CLINICAL HISTORY: 72 years-old Female with EVALUATE WEAKNESS. Acute weakness TECHNIQUE: Multiple axial CT images of the head were obtained without contrast. A dose lowering technique was utilized adhering to the principles of ALARA. CT DOSE: 614.27 mGy.cm COMPARISON: CT head 12/23/2017. FINDINGS: No acute intracranial hemorrhage, midline shift, intracranial mass, hydrocephalus, territorial ischemia or abnormal extra-axial collection. Mild atrophy. Cerebral vascular calcifications are noted. The calvarium is intact. Mastoid air cells and middle ear cavities are clear. Moderate mucosal thickening with air-fluid level of the left maxillary sinus, possibly reflecting acute sinus disease. Mild mucosal thickening of the ethmoid air cells. Soft tissues and orbits are unremarkable. Endotracheal tube is seen within the oral cavity. IMPRESSION: No acute intracranial abnormality. The above report was generated using voice recognition software. It may contain grammatical, syntax or spelling errors. Electronically signed by: Alejandro Mitchell M.D. 12/26/2017 9:39 PM Dictated Date/Time: 12/26/2017 9:35 PM
[2017-12-26] MEDS ORDERED: [UNRECOGNIZED DRUG - SUPPLY] TD (21:48)
[2017-12-26 21:55] LABS: PTT PATIENT 22.9 SECONDS (21.0-31.0)
[2017-12-26] MEDS ORDERED: PRED10TA PO (22:00)
[2017-12-26 22:03] LABS: HEMATOCRIT 40.9 % (37-47); HEMOGLOBIN 12.2 g/dL (12.0-16.0); MEAN CELL VOLUME 100.2 fL (80-100); MEAN CORPUSCULAR HEMOGLOBIN 29.9 pg (25-34); MEAN CORPUSCULAR HGB CONC 29.8 g/dl (32-36); RED CELL DISTRIBUTION WIDTH CV 16.4 % (11.5-14.5); RED CELL DISTRIBUTION WIDTH SD 59.9 fL (36.4-46.3); WHITE BLOOD COUNT 18.79 K/uL (4.8-10.8)
[2017-12-26] MEDS ORDERED: ADVIN25/60 INH (22:07)
[2017-12-26 22:09] LABS: MEAN PLATELET VOLUME 13.4 fL (7.4-10.4); PLATELET COUNT 132 K/uL (130-400)
[2017-12-26 22:10] LABS: BASO % 0.1 %; BASO ABS # 0.01 K/uL (0-0.2); IG# 0.17 K/uL (0.00-0.02); LYMPH % 3.9 %; LYMPH ABS # 0.73 K/uL (1.2-3.4); MONO % 3.5 %; MONO ABS # 0.66 K/uL (0.11-0.59); NEUT % 91.6 %; NEUT ABS # 17.22 K/uL (1.4-6.5)
[2017-12-26] MEDS ORDERED: POLY335019 PO (22:16)
--- NOTE | 2017-12-26 22:17 | EMERGENCY ROOM VISIT NOTE ---
History Report prepared by Ana Luisa: Juwan Juarez Under the Supervision of: Dr. Thom Saenz M.D. First contact with patient: 20:24 Stated Complaint: UNRESPONSIVE/APNEIC History of Present Illness The patient is a 71 year old female 71 y/o with HTN, hyperparathyroidism, CKD III, gout, chronic diastolic CHF, COPD - O2-dependent/chronic hypoxic respiratory failure, bronchiectasis and recurrent pneumonia, depression, severe osteoporosis complicated by multiple fractures, chronic back/hip pain on methadone, and recurrent UTI (U cx in 08/2017 pos. for Ecoli ESBL), recently admitted and discharged yesterday who presents to the Emergency Room with constant altered mental status and respiratory difficulty that began this evening. Per EMS, the patient was recently discharged yesterday after being in the hospital for a UTI. Today, the patient was given her doses of Lyica and Valium at 1600 and was feeding herself dinner at 1800. After, her mental status suddenly became altered and she started experiencing breathing difficulties. EMS was called to bring the patient to the ED. On her way to the ED, the patient appeared to be trying to cough or vomit. EMS was concerned about a possible aspiration. The patient's oxygen saturation decreased and her breathing became more labored. The patient was unresponsive and would not respond to a sternal rub. Patient was given 2 Narcan which seemed to originally wake up the patient, but the patient ultimately remained unconscious. EMS called inquiring about an intubation on the way to the ED. When intubating they noted there seemed to be vomit in the back of the patient's throat. The patient' s blood pressure was 160/[address] to the ED. The patient does usually wear oxygen at home. The HPI is limited secondary to the patient's unresponsiveness. Source of History: EMS History Limited By: AMS Onset: this evening Position: other (generalized) Quality: other (AMS) Timing: constant Associated Symptoms: + SOB Review of Systems The ROS is limited secondary to the patient's unresponsiveness. Past Medical & Surgical Medical Problems: (1) Acute respiratory failure with hypoxia (2) Acute respiratory failure with hypoxia (3) Altered mental status (4) Ambulatory dysfunction (5) Cholelithiases (6) Chronic kidney disease (CKD) stage G3a/A1, moderately decreased glomerular filtration rate (GFR) between 45-59 mL/min/1.73 square meter and albuminuria creatinine ratio less than 30 mg/g (7) Chronic Kidney Disease, Stage Iii (Moderate) (8) Compression fracture of fourth lumbar vertebra (9) COPD (chronic obstructive pulmonary disease) (10) Crystal arthritis (11) Duodenal bulb ulcer (12) DVT (deep venous thrombosis) (13) Fecal impaction of colon (14) Fever (15) Fracture of right olecranon process (16) Gout (17) Gout attack (18) Headache (19) Hodgkins lymphoma (20) Humerus fracture (21) Hyperlipidemia Nec/Nos (22) Hypertension (23) Hypertension (24) Hypertensive urgency (25) Intractable pain (26) Knee pain (27) Left renal artery stenosis (28) Lethargy (29) Leukocytosis (30) Lower extremity edema (31) Lumbar compression fracture (32) Malignant HTN with heart disease, 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, with chronic kidney disease (33) Mucus plugging of bronchi (34) Narcotic withdrawal (35) Opiate use (36) Opioid dependence (37) ORIF left femur (38) Osteoporosis (39) Perforated duodenal ulcer (40) PNA (pneumonia) (41) Pneumonia (42) Renal artery stenosis (43) right hand cellulitis (44) Right renal artery stenosis (45) Rigors (46) Secondary hyperparathyroidism (47) Sepsis secondary to UTI (48) Stage 3 chronic kidney disease (49) Thrush, oral (50) UTI (urinary tract infection) (51) UTI (urinary tract infection) (52) Vitreous hemorrhage of right eye (53) Wedge compression fracture of T11 vertebra Surgical Problems: (1) H/O total hip arthroplasty (2) History of kyphoplasty (3) History of kyphoplasty (4) left renal artery stent placement Family History Heart disease Social History Smoking Status: Former Smoker Alcohol Use: none Drug Use: none Marital Status: Housing Status: lives with family Occupation Status: disabled Current/Historical Medications Scheduled Allopurinol (Zyloprim), 100 MG PO BID Baclofen (Lioresal), 10 MG PO TID Calcitonin Mart (Calcitonin-Mart), 1 SPRAY ERIC QAM Carvedilol (Coreg), 25 MG PO BID Cholecalciferol (D-1000), 4,000 UNITS PO QAM Dextrose (Diabetic Use) (Insta-Glucose), 1 APPLN PO UD Duloxetine HCl (Cymbalta), 30 MG PO QAM Fluticasone Prop/Salmeterol (Advair Diskus 250/50 60 Dose), 1 PUFFS INH BID Home O2 Therapy (Oxygen), 4 LITERS NA PRN Hydralazine HCl (Hydralazine HCl), 10 MG PO TID Ipratropium-Albuterol (Combivent Respimat), 1 PUFFS INH QID Loratadine (Claritin), 10 MG PO DAILY Methadone HCl (Methadone HCl), 30 MG PO TID Mirtazapine (Remeron), 15 MG PO HS Multivitamin (Multivitamin), 1 TAB PO QAM Nystatin (Topical) (Nystop), 1 APPLN TOP BID Pantoprazole (Protonix), 40 MG PO BID Polyethylene Glycol 3350 (Miralax), 17 GM PO BID Prednisone Tab (Prednisone), 60 MG PO DAILY Pregabalin (Lyrica), 50 MG PO BID Senna/Docusate Sod (Senokot S), 1 TAB PO BID Thiamine HCl (Vitamin B-1), 200 MG PO QAM Tiotropium [place] (Spiriva Handihaler), 1 CAP INH DAILY Verapamil Hcl (Verapamil Hcl Er), 120 MG PO QAM Scheduled PRN Acetaminophen (Tylenol), 650 MG PO Q6 PRN for Pain or Fever Albuterol Sulfate (Albuterol Sulfate), 1 VIAL NEB Q4 PRN for SOB/Wheezing Bisacodyl (Dulcolax), 1 SUPP WV UD PRN for Constipation Diazepam (Valium), 2.5 MG PO Q12 PRN for Headache Doxepin HCl (Antipruritic) (Doxepin Hydrochloride), 1 APPLN TOP Q6 PRN for Pain Epinephrine (Epipen), 0.3 MG IM UD PRN for ALLERGIC REACTION Lidocaine (Anorectal) (Lidocaine), 1 APPLN TOP Q6 PRN for Pain Magnesium Hydroxide (Milk Of Magnesia), 30 ML PO UD PRN for Constipation Mineral Oil (Enema Mineral Oil), 1 BTL WV UD PRN for Constipation Ondansetron (Ondansetron Hcl), 4 MG IV Q6 PRN for Nausea or Vomiting Ondasetron Odt (Zofran Odt), 4 MG SL Q6H PRN for Nausea Promethazine Hcl (Phenergan), 25 MG IV Q6 PRN for Nausea or Vomiting Saline (Saline Nasal Tripp), 2 SPRAYS ERIC Q8 PRN for Nasal Congestion Sumatriptan Succinate (Imitrex), 25 MG PO UD PRN for Migraine Miscellaneous Medications Glucagon (Glucagon Emergency Kit), 1 APPLN IM Allergies Coded Allergies: Squash (Verified Allergy, Unknown, Jose, 12/26/17) Azithromycin (Verified Adverse Reaction, Mild, nausea, 12/26/17) Levofloxacin (Verified Adverse Reaction, Mild, nausea, 12/26/17) Physical Exam Vital Signs Date Time Temp Pulse Resp B/P (MAP) Pulse Ox O2 Delivery O2 Flow Rate FiO2 12/26/17 22:46 57 16 164/86 92 Mechanical Ventilator 77 12/26/17 22:07 56 16 95 12/26/17 22:06 179/91 12/26/17 22:02 55 16 95 12/26/17 22:01 165/93 12/26/17 21:57 55 18 91 12/26/17 21:52 174/127 12/26/17 21:50 58 17 93 12/26/17 21:46 197/187 12/26/17 21:45 60 18 94 12/26/17 21:43 244/228 12/26/17 21:40 57 17 95 12/26/17 21:38 80 12/26/17 21:35 59 18 96 12/26/17 21:30 0 12/26/17 21:26 94 10.0 80 12/26/17 21:25 0 12/26/17 21:20 5 12/26/17 21:16 166/103 12/26/17 21:15 62 19 90 12/26/17 21:11 163/108 12/26/17 21:10 61 16 91 12/26/17 21:06 168/105 12/26/17 21:05 60 13 94 12/26/17 21:03 173/91 12/26/17 21:01 94 12/26/17 21:01 60 16 166/123 94 12/26/17 21:01 169/93 12/26/17 21:00 60 12/26/17 21:00 60 18 92 12/26/17 20:59 166/123 12/26/17 20:55 63 21 93 12/26/17 20:53 64 12/26/17 20:50 64 16 93 Physical Exam GENERAL: Awake, alert, well-appearing, in no distress HENT: Normocephalic, atraumatic. Oropharynx unremarkable. EYES: Normal conjunctiva. Sclera non-icteric. NECK: Supple. No nuchal rigidity. FROM. No masses. RESPIRATORY: Coarse but equal breath sounds. No wheezes. No rales. CARDIAC: Normal rate. Normal rhythm. No murmurs. No rubs. Extremities warm and well perfused. Pulses equal. No JVD. GI: Soft, non-distended. No tenderness to palpation. No rebound or guarding. No masses. RECTAL: Deferred. MUSCULOSKELETAL: Atraumatic. Chest examination reveals no tenderness. The back is symmetrical on inspection without obvious abnormality. There is no CVA tenderness to palpation. No joint edema. PICC line in right arm. LOWER EXTREMITIES: Calves are equal size bilaterally and non-tender. Trace pedal edema. No discoloration. Generalized muscular atrophy in lower legs. NEURO: Unresponsive, intubated, slight spontaneous movement of the extremities. GCS 6. SKIN: No rash or jaundice noted. Medical Decision & Procedures ER Provider Diagnostic Interpretation: Radiology results as stated below per my review and radiologist interpretation: HEAD WITHOUT CONTRAST (CT) CLINICAL HISTORY: 72 years-old Female with EVALUATE WEAKNESS. Acute weakness TECHNIQUE: Multiple axial CT images of the head were obtained without contrast. A dose lowering technique was utilized adhering to the principles of ALARA. CT DOSE: 614.27 mGy.cm COMPARISON: CT head 12/23/2017. FINDINGS: No acute intracranial hemorrhage, midline shift, intracranial mass, hydrocephalus, territorial ischemia or abnormal extra-axial collection. Mild atrophy. Cerebral vascular calcifications are noted. The calvarium is intact. Mastoid air cells and middle ear cavities are clear. Moderate mucosal thickening with air-fluid level of the left maxillary sinus, possibly reflecting acute sinus disease. Mild mucosal thickening of the ethmoid air cells. Soft tissues and orbits are unremarkable. Endotracheal tube is seen within the oral cavity. IMPRESSION: No acute intracranial abnormality. The above report was generated using voice recognition software. It may contain grammatical, syntax or spelling errors. Electronically signed by: Alejandro Mitchell M.D. 12/26/2017 9:39 PM Dictated Date/Time: 12/26/2017 9:35 PM CHEST ONE VIEW PORTABLE HISTORY: 72 years-old Female EVALUATE WEAKNESS acute weakness. Patient is reportedly unresponsive COMPARISON: Chest radiograph 12/20/2017 TECHNIQUE: Portable supine AP view of the chest FINDINGS: Endotracheal tube is noted with distal tip overlying the midline approximately 1.4 cm superior to the level of the ramandeep. The heart is enlarged. Calcification of the aorta. Pulmonary vascular congestion. Interval development of interstitial opacities. Right-sided PICC appears unchanged. Alveolar opacities about the left greater than right lung bases. No pneumothorax or large pleural effusion. Lungs are hypoinflated. Multiple vertebroplasty changes with ORIF changes of the left humerus. Demineralized appearance of the bones. Multiple remote rib fractures. IMPRESSION: 1. Endotracheal tube overlies the midline, 1.4 cm superior to the ramandeep. 2. Cardiomegaly with suggested mild pulmonary edema. 3. Alveolar opacities of the left greater than right lung bases suggest atelectasis or pneumonia. The above report was generated using voice recognition software. It may contain grammatical, syntax or spelling errors. Electronically signed by: Alejandro Mitchell M.D. 12/26/2017 9:15 PM Dictated Date/Time: 12/26/2017 9:12 PM KUB HISTORY: Status post placement of an enteric tube NGT placement COMPARISON: CT abdomen and pelvis 12/20/2017 FINDINGS: Enteric tube has been placed with distal tip terminating within the lower central abdomen, likely within the distal gastric lumen. Extensive formed stool compatible with constipation. No definite pneumatosis or pneumoperitoneum. No urolith. Bowel gas pattern is nonobstructive. Bilateral renal arterial stent grafts noted. Multiple remote compression deformities with vertebroplasty changes. Hardware about the proximal femora and left humerus noted. Demineralized appearance of the bones. Multiple remote appearing left-sided rib fractures. IMPRESSION: 1. Enteric tube terminates over the central lower abdomen within the expected region of the distal gastric lumen. 2. Nonobstructive bowel gas pattern. 3. Constipation. Electronically signed by: Alejandro Mitchell M.D. 12/26/2017 10:42 PM Dictated Date/Time: 12/26/2017 10:40 PM Laboratory Results 12/26/17 21:21 Red Blood Count 4.08, Mean Corpuscular Volume 100.2, Mean Corpuscular Hemoglobin 29.9, Mean Corpuscular Hemoglobin Concent 29.8, Mean Platelet Volume 13.4, Neutrophils (%) (Auto) 91.6, Lymphocytes (%) (Auto) 3.9, Monocytes (%) ( Auto) 3.5, Eosinophils (%) (Auto) 0.0, Basophils (%) (Auto) 0.1, Neutrophils # ( Auto) 17.22, Lymphocytes # (Auto) 0.73, Monocytes # (Auto) 0.66, Eosinophils # ( Auto) 0.00, Basophils # (Auto) 0.01 12/26/17 21:21 Test 12/26/17 21:07 12/26/17 21:21 12/26/17 21:28 12/26/17 22:47 Urine Color YELLOW Urine Appearance CLEAR (CLEAR) Urine pH 6.0 (4.5-7.5) Urine Specific [place] 1.022 (1.000-1.030) Urine Protein TRACE (NEG) Urine Glucose (UA) NEG (NEG) Urine Ketones NEG (NEG) Urine Occult Blood NEG (NEG) Urine Nitrite NEG (NEG) Urine Bilirubin NEG (NEG) Urine Urobilinogen NEG (NEG) Urine Leukocyte Esterase NEG (NEG) Urine WBC (Auto) 0 /hpf (0-5) Urine RBC (Auto) 0-4 /hpf (0-4) Urine Hyaline Casts (Auto) 1-5 /lpf (0-5) Urine Epithelial Cells (Auto) 0-5 /lpf (0-5) Urine Bacteria (Auto) NEG (NEG) White Blood Count 18.79 K/uL (4.8-10.8) Red Blood Count 4.08 M/uL (4.2-5.4) Hemoglobin 12.2 g/dL (12.0-16.0) Hematocrit 40.9 % (37-47) Mean Corpuscular Volume 100.2 fL (80-100) Mean Corpuscular Hemoglobin 29.9 pg (25-34) Mean Corpuscular Hemoglobin Concent 29.8 g/dl (32-36) Platelet Count 132 K/uL (130-400) Mean Platelet Volume 13.4 fL (7.4-10.4) Neutrophils (%) (Auto) 91.6 % Lymphocytes (%) (Auto) 3.9 % Monocytes (%) (Auto) 3.5 % Eosinophils (%) (Auto) 0.0 % Basophils (%) (Auto) 0.1 % Neutrophils # (Auto) 17.22 K/uL (1.4-6.5) Lymphocytes # (Auto) 0.73 K/uL (1.2-3.4) Monocytes # (Auto) 0.66 K/uL (0.11-0.59) Eosinophils # (Auto) 0.00 K/uL (0-0.5) Basophils # (Auto) 0.01 K/uL (0-0.2) RDW Standard Deviation 59.9 fL (36.4-46.3) RDW Coefficient of Variation 16.4 % (11.5-14.5) Immature Granulocyte % (Auto) 0.9 % Immature Granulocyte # (Auto) 0.17 K/uL (0.00-0.02) Platelet Estimate DECREASED Hypochromasia PRESENT Prothrombin Time 10.4 SECONDS (9.0-12.0) Prothromb Time International Ratio 1.0 (0.9-1.1) Activated Partial Thromboplast Time 22.9 SECONDS (21.0-31.0) Partial Thromboplastin Ratio 0.9 Anion Gap 1.0 mmol/L (3-11) Est Creatinine Clear Calc Drug Dose 35.7 ml/min Estimated GFR () 48.1 Estimated GFR (Non- 41.5 BUN/Creatinine Ratio 34.3 (10-20) Calcium Level 9.0 mg/dl (8.5-10.1) Magnesium Level 3.5 mg/dl (1.8-2.4) Total Bilirubin 0.3 mg/dl (0.2-1) Direct Bilirubin 0.1 mg/dl (0-0.2) Aspartate Amino Transf (AST/SGOT) 31 U/L (15-37) Alanine Aminotransferase (ALT/SGPT) 23 U/L (12-78) Alkaline Phosphatase 117 U/L (45-117) Total Protein 5.9 gm/dl (6.4-8.2) Albumin 3.0 gm/dl (3.4-5.0) Lipase 171 U/L (73-393) Procalcitonin < 0.05 ng/ml (0-0.5) Thyroid Stimulating Hormone (TSH) 1.860 uIu/ml (0.300-4.500) Bedside Lactic Acid Venous 1.81 mmol/L (0.90-1.70) Arterial Blood pH 7.45 (7.35-7.45) Arterial Blood Partial Pressure CO2 47 mmHg (35-46) Arterial Blood Partial Pressure O2 85 mm/Hg (80-95) Arterial Blood HCO3 32 mmol/L (19-24) Arterial Blood Oxygen Saturation 93.3 % (90-95) Arterial Blood Base Excess 7.6 mEq/L (-9-1.8) Arterial Blood Gas Delivery 77% FiO2 Leroy Test POS (POS) Laboratory results reviewed by me Medications Administered Medications (Trade) Dose Ordered Sig/Estephania Route Start Time Stop Time Status Last Admin Dose Admin Miscellaneous (Rapid Sequence Induction Bag) 1 ea STK-MED ONCE N/A 12/26/17 20:38 12/26/17 20:39 DC 12/26/17 21:11 1 EA Propofol (Diprivan Iv Emulsion 100ml Vial) 1 dose STK-MED ONCE .ROUTE 12/26/17 20:38 12/26/17 20:39 DC 12/26/17 21:11 1 DOSE Sodium Chloride 1,000 ml @ 125 mls/hr Q8H STAT IV 12/26/17 20:50 12/26/17 23:26 DC 12/26/17 21:12 125 MLS/HR Fentanyl Citrate (Fentanyl Inj) 50 mcg NOW STAT IV 12/26/17 20:50 12/26/17 20:54 DC 12/26/17 21:12 50 MCG Midazolam HCl (Versed Inj) 1 mg NOW STAT IV 12/26/17 20:50 12/26/17 20:54 DC 12/26/17 21:12 1 MG Fentanyl Citrate (Fentanyl Inj) 50 mcg NOW STAT IV 12/26/17 20:54 12/26/17 20:55 DC 12/26/17 21:13 50 MCG Midazolam HCl (Versed Inj) 1 mg NOW STAT IV 12/26/17 20:54 12/26/17 20:55 DC 12/26/17 21:13 1 MG Piperacillin Sod/ Tazobactam Sod (Zosyn Iv) 4.5 gm NOW STAT IV 12/26/17 21:21 12/26/17 21:23 DC 12/26/17 21:39 4.5 GM Vancomycin HCl 1500 mg/Sodium Chloride 530 ml @ 200 mls/hr ONE STAT IV 12/26/17 21:21 12/26/17 23:59 DC 12/26/17 21:52 200 MLS/HR Fentanyl Citrate (Fentanyl Inj) 100 mcg NOW STAT IV 12/26/17 21:46 12/26/17 21:48 DC 12/26/17 21:52 100 MCG Midazolam HCl (Versed Inj) 2 mg NOW STAT IV 12/26/17 21:46 12/26/17 21:48 DC 12/26/17 21:52 2 MG Ertapenem 1000 mg/ Sodium Chloride 60 ml @ 100 mls/hr NOW ONCE IV 12/26/17 22:45 12/26/17 23:20 DC 12/26/17 22:50 100 MLS/HR Midazolam HCl 250 ml @ 0 mls/hr Q0M PRN IV 12/26/17 22:35 01/25/18 22:34 12/26/17 23:54 16 MLS/HR Fentanyl Citrate 250 ml @ 5 mls/hr Q24H IV 12/26/17 22:45 01/09/18 22:44 12/26/17 23:54 10 MLS/HR ECG Per My Interpretation Indication: altered mental status, SOB/dyspnea Rate (beats per minute): 62 Rhythm: normal sinus Findings: 1st degree AV block, other (No ST elevation or depression, No PAC or PVC) ED Course 2037: Ordered Propofol 1 dose IV, Rapid Sequence Induction Bag 1 each. 2044: The patient was evaluated in room B01. A complete history and physical exam was performed. 2049: Ordered Versed Injection 1 mg IV, Fentanyl Injection 50 mcg IV, Sodium Chloride 1000 ml @ 125 mls/hr IV. 2050: ET tube suction by respiratory showed vomit cleared from the airway. 2053: Ordered Versed Injection 1 mg IV, Fentanyl Injection 50 mcg IV. 2118: I reevaluated the patient and administered Propofol. She is heading over to CT. 2120: Ordered Vancomycin HCl 1500 mg/ Sodium Chloride 530 ml @ 200 mls/hr IV, Zosyn 4.5 gm IV. 2137: I reevaluated the patient and she is resting comfortably. She is more agitated on the ventilator. 2145: Ordered Versed Injection 2 mg IV, Fentanyl Injection 100 mcg IV. 2157: I reevaluated the patient and administered 50 mg of Propofol. 2159: Paged vice president tax. 2200: I discussed the patients case with Dr. Holley [facility] Hospitalist. She understands the patients condition and agrees to accept the patient. The patient will be evaluated for further management and care. 2207: I administered another additional 50 mg of Propofol. 2220: I discussed the patients case with Dr. Pradhan, [facility] Quick Print Operator. He recommended some additional labs. He will manage her in the ICU. 2228: Dr. Holley is in the room working on getting the patient to the ICU. 2245: Ordered Ertapenem 1000 mg/ Sodium Chloride 60 ml @ 100 mls/hr IV. 2301: I reevaluated the patient and administered another 50 mg of Propofol. Medical Decision Prior records/ancillary studies reviewed and summarized above. Nursing notes reviewed and agree them. Additional history obtained from EMS. The patient's history was concerning for altered mental status. Differential diagnosis: Etiologies such as aspiration, pneumonia, infection, hypoglycemia, electrolyte abnormalities, cardiac sources, intracerebral event, toxicologic, neurologic, as well as others were entertained. Physical examination: As above. Altered. Intubated. ER treatment provided: IV Lock Normal saline hydration at 125 mL an hour IV Propofol drip Propofol boluses for comfort Multiple doses of Versed and fentanyl for sedation IV Zosyn IV vancomycin On reassessment the patient was more comfortable and stable on the ventilator. Diagnostics interpretation by me: ECG: No acute ischemia. The labs revealed a significant leukocytosis of 18,000 on CBC. The patient's urinalysis was unremarkable. Adequate oxygenation on ABG. Pro-calcitonin not significantly elevated. Mild hyperkalemia on chemistry panel otherwise electrolytes were unremarkable. Cardiac markers negative. Imaging studies: Chest x-ray and CT scan as above The patient's presentation is concerning for acute respiratory failure. Given the history from EMS there is concerns for aspiration. Further management will be necessary in the hospital. Consultation: A consultation was placed with critical care medicine. Case was discussed. A consultation was placed with the hospitalist, Dr. Holley. The case was discussed and diagnostics were reviewed. The patient was evaluated in the ER for further treatment. Head Trauma GCS Score: 6 Medication Reconcilliation Current Medication List: was personally reviewed by me Blood Pressure Screening Patient's blood pressure: Elevated blood pressure Referred to Hospitalist Consults Time Called: 2199 Consulting Physician: Dr. Holley [facility] Hospitalist Returned Call: 2199 I discussed the patients case with Dr. Holley [facility] Hospitalist. She understands the patients condition and agrees to accept the patient. The patient will be evaluated for further management and care. Additional Consults: Time Called: 2158 Consulted Physician: Dr. Pradhan [facility] Quick Print Operator Returned Call: 2199 Additional Comments: I discussed the patients case with Dr. Pradhan [facility] Quick Print Operator. He recommended some additional labs. He will manage her in the ICU. Impression Primary Impression: Altered mental status Additional Impressions: PNA (pneumonia) Acute respiratory failure with hypoxia Critical Care I have personally spent greater than 75 minutes of critical care time in the direct management of this patient. This includes bedside care, interpretation of diagnostic studies, and testing, discussion with consultants, and other required patient management activities. This 75 minutes is in excess of all separately billable procedures. Scribe Attestation The scribe's documentation has been prepared under my direction and personally reviewed by me in its entirety. I confirm that the note above accurately reflects all work, treatment, procedures, and medical decision making performed by me. Departure Information Dispostion Being Evaluated By Hospitalist Referrals Marti Vila (PCP) Problem Qualifiers
[2017-12-26] MEDS ORDERED: SENN-65 PO (22:19)
[2017-12-26] MEDS ORDERED: DIAZ-165 PO (22:26)
[2017-12-26 22:28] LABS: CREATININE 1.3 mg/dl (0.60-1.20)
[2017-12-26 22:29] LABS: POTASSIUM 5.7 mmol/L (3.5-5.1); TOTAL PROTEIN 5.9 gm/dl (6.4-8.2)
[2017-12-26] MEDS ORDERED: ERTAPENEM 1 GM ADDVIAL IV ONE (22:30)
[2017-12-26] MEDS ORDERED: DEXT40GE PO (22:37)
[2017-12-26] MEDS ORDERED: PROM25IN13 IV (22:44)
--- NOTE | 2017-12-26 22:44 | DIAGNOSTIC IMAGING REPORT ---
KUB HISTORY: Status post placement of an enteric tube NGT placement COMPARISON: CT abdomen and pelvis 12/20/2017 FINDINGS: Enteric tube has been placed with distal tip terminating within the lower central abdomen, likely within the distal gastric lumen. Extensive formed stool compatible with constipation. No definite pneumatosis or pneumoperitoneum. No urolith. Bowel gas pattern is nonobstructive. Bilateral renal arterial stent grafts noted. Multiple remote compression deformities with vertebroplasty changes. Hardware about the proximal femora and left humerus noted. Demineralized appearance of the bones. Multiple remote appearing left-sided rib fractures. IMPRESSION: 1. Enteric tube terminates over the central lower abdomen within the expected region of the distal gastric lumen. 2. Nonobstructive bowel gas pattern. 3. Constipation. Electronically signed by: Alejandro Mitchell M.D. 12/26/2017 10:42 PM Dictated Date/Time: 12/26/2017 10:40 PM
[2017-12-26] MEDS ORDERED: ACETAMINOPHEN 325 MG TAB PO PRN (22:45)
[2017-12-26] MEDS ORDERED: ERTAPENEM IV 1,000 MG in SODIUM CHLOR 0.9% AD-VAN 50ML 50 ML IV ONE (22:45)
[2017-12-26] MEDS ORDERED: ONDANSETRON INJ 2 MG/ML 2 ML VIAL IV PRN (22:45)
[2017-12-26] MEDS ORDERED: PIPERACILL/TAZOBAC CONSULT ACTIVE PRN (22:45)
[2017-12-26] MEDS ORDERED: FENTANYL 1250MCG/250ML NSS 250 ML IV SCH (22:45)
[2017-12-26] MEDS ORDERED: ICU PROTOCOL FOR HYPERGLYCEMIA PRN (22:45)
[2017-12-26] MEDS ORDERED: OXGN (22:54)
[2017-12-26] MEDS ORDERED: DOCUSATE SODIUM 100 MG/10 ML UDC PO PRN (23:15)
[2017-12-26] MEDS ORDERED: POLYETHYLENE (MIRALAX) 17 GM PACK PO PRN ×2 (23:15→23:45)
--- NOTE | 2017-12-26 23:19 | History and Physical ---
History & Physical Date & Time of Service: Dec 26, 2017 at 23:07 Chief Complaint: Unresponsive/Apneic Primary Care Physician: Marti Vila History of Present Illness Source: hospital records Patient intubated and sedated. History obtained from hospital records and ER staff. Patient is a 72yo C female with multiple medical problems, recently admitted from December 20 - for intractable headache and constipation. She was discharged to [facility] on 25 December in stable medical condition. The patient was administered Lyrica and Valium at 1600 and was feeding herself dinner at 1800. Per report the patient became unresponsive at dinner then developed respiratory distress - tachypnea, accessory muscle use and hypoxia. EMS was called. Patient became unresponsive to sternal rub. She was administered Narcan and intubated in the field for hypoxic respiratory failure and work of breathing. Per EMS report there was a considerable amount of food in the airway requiring a lot of suction prior to placement of the ETT. She was placed on the ventilator at [facility] ER. Sedated with Propofol gtt. She required multiple boluses of Propofol (40 x 2 and 50 x 2) as well as boluses of Versed and Fentanyl to achieve adequate sedation and ventilator synchrony. 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 Patient intubated and sedated. Smoking Status: Former Smoker Drug Use: none Marital Status: Housing status: senior care Occupational Status: disabled Immunizations History of Influenza Vaccine: Yes Influenza Vaccine Date: Mar 01, 2013 History of Tetanus Vaccine?: Yes Tetanus Immunization Date: Dec 18, 2009 History of Pneumococcal: Yes Pneumococcal Date: Jun 01, 2012 History of Hepatitis B Vaccine: No Allergies Coded Allergies: Squash (Verified Allergy, Unknown, Zucchini, 12/26/17) Azithromycin (Verified Adverse Reaction, Mild, nausea, 12/26/17) Levofloxacin (Verified Adverse Reaction, Mild, nausea, 12/26/17) Home Medications Scheduled Allopurinol (Zyloprim), 100 MG PO BID Baclofen (Lioresal), 10 MG PO TID Calcitonin [place] (Calcitonin-[place]), 1 SPRAY ERIC QAM Carvedilol (Coreg), 25 MG PO BID Cholecalciferol (D-1000), 4,000 UNITS PO QAM Dextrose (Diabetic Use) (Insta-Glucose), 1 APPLN PO UD Duloxetine HCl (Cymbalta), 30 MG PO QAM Fluticasone Prop/Salmeterol (Advair Diskus 250/50 60 Dose), 1 PUFFS INH BID Home O2 Therapy (Oxygen), 4 LITERS NA PRN Hydralazine HCl (Hydralazine HCl), 10 MG PO TID Ipratropium-Albuterol (Combivent Respimat), 1 PUFFS INH QID Loratadine (Claritin), 10 MG PO DAILY Methadone HCl (Methadone HCl), 30 MG PO TID Mirtazapine (Remeron), 15 MG PO HS Multivitamin (Multivitamin), 1 TAB PO QAM Nystatin (Topical) (Nystop), 1 APPLN TOP BID Pantoprazole (Protonix), 40 MG PO BID Polyethylene Glycol 3350 (Miralax), 17 GM PO BID Prednisone Tab (Prednisone), 60 MG PO DAILY Pregabalin (Lyrica), 50 MG PO BID Senna/Docusate Sod (Senokot S), 1 TAB PO BID Thiamine HCl (Vitamin B-1), 200 MG PO QAM Tiotropium [place] (Spiriva [place]ihaler), 1 CAP INH DAILY Verapamil Hcl (Verapamil Hcl Er), 120 MG PO QAM Scheduled PRN Acetaminophen (Tylenol), 650 MG PO Q6 PRN for Pain or Fever Albuterol Sulfate (Albuterol Sulfate), 1 VIAL NEB Q4 PRN for SOB/Wheezing Bisacodyl (Dulcolax), 1 SUPP UT UD PRN for Constipation Diazepam (Valium), 2.5 MG PO Q12 PRN for Headache Doxepin HCl (Antipruritic) (Doxepin Hydrochloride), 1 APPLN TOP Q6 PRN for Pain Epinephrine (Epipen), 0.3 MG IM UD PRN for ALLERGIC REACTION Lidocaine (Anorectal) (Lidocaine), 1 APPLN TOP Q6 PRN for Pain Magnesium Hydroxide (Milk Of Magnesia), 30 ML PO UD PRN for Constipation Mineral Oil (Enema Mineral Oil), 1 BTL UT UD PRN for Constipation Ondansetron (Ondansetron Hcl), 4 MG IV Q6 PRN for Nausea or Vomiting Ondasetron Odt (Zofran Odt), 4 MG SL Q6H PRN for Nausea Promethazine Hcl (Phenergan), 25 MG IV Q6 PRN for Nausea or Vomiting Saline (Saline Nasal [place]), 2 SPRAYS ERIC Q8 PRN for Nasal Congestion Sumatriptan Succinate (Imitrex), 25 MG PO UD PRN for Migraine Miscellaneous Medications Glucagon (Glucagon Emergency Kit), 1 APPLN IM Review of Systems Unable to obtain accurate ROS secondary to patient being intubated and sedated Physical Exam Vital Signs Date Time Temp Pulse Resp B/P (MAP) Pulse Ox O2 Delivery O2 Flow Rate FiO2 12/26/17 22:46 57 16 164/86 92 Mechanical Ventilator 77 12/26/17 22:07 56 16 95 12/26/17 22:06 179/91 12/26/17 22:02 55 16 95 12/26/17 22:01 165/93 12/26/17 21:57 55 18 91 12/26/17 21:52 174/127 12/26/17 21:50 58 17 93 12/26/17 21:46 197/187 12/26/17 21:45 60 18 94 12/26/17 21:43 244/228 12/26/17 21:40 57 17 95 12/26/17 21:38 80 12/26/17 21:35 59 18 96 12/26/17 21:30 0 12/26/17 21:26 94 10.0 80 12/26/17 21:25 0 12/26/17 21:20 5 12/26/17 21:16 166/103 12/26/17 21:15 62 19 90 12/26/17 21:11 163/108 12/26/17 21:10 61 16 91 12/26/17 21:06 168/105 12/26/17 21:05 60 13 94 12/26/17 21:03 173/91 12/26/17 21:01 94 12/26/17 21:01 60 16 166/123 94 12/26/17 21:01 169/93 12/26/17 21:00 60 12/26/17 21:00 60 18 92 12/26/17 20:59 166/123 12/26/17 20:55 63 21 93 12/26/17 20:53 64 12/26/17 20:50 64 16 93 General: patient intubated and sedated, withdraws to painful stimuli Skin: warm, dry, intact,scattered ecchymoses of varying age on anterior chest wall, forearms and bilateral lower extremities HEENT: NC/AT, PERRL, anicteric sclera, conjunctiva without injection, nares patent, moist mucus membranes, no oropharyngeal lesions, neck supple, trachea midline, no thyromegaly, no JVD, ETT in place Heart: +S1/S2, regular, bradycardic, no m/r/g Lungs: equal air entry bilaterally, coarse breath sounds on the left with diffuse end expiratory wheezing Abdomen: soft, NT/ND, no masses/organomegaly/ascites Extremities: warm, well perfused, trace bilateral LE edema, R>L Neuro: intubated, sedated. withdraws to painful stimuli, PERRL Diagnostics Laboratory Results Results Past 24 Hours Test 12/26/17 21:07 12/26/17 21:21 12/26/17 21:28 12/26/17 22:47 Range/Units Urine Color YELLOW Urine Appearance CLEAR CLEAR Urine pH 6.0 4.5-7.5 Urine Specific [place] 1.022 1.000-1.030 Urine Protein TRACE NEG Urine Glucose (UA) NEG NEG Urine Ketones NEG NEG Urine Occult Blood NEG NEG Urine Nitrite NEG NEG Urine Bilirubin NEG NEG Urine Urobilinogen NEG NEG Urine Leukocyte Esterase NEG NEG Urine WBC (Auto) 0 0-5 /hpf Urine RBC (Auto) 0-4 0-4 /hpf Urine Hyaline Casts (Auto) 1-5 0-5 /lpf Urine Epithelial Cells (Auto) 0-5 0-5 /lpf Urine Bacteria (Auto) NEG NEG White Blood Count 18.79 4.8-10.8 K/uL Red Blood Count 4.08 4.2-5.4 M/uL Hemoglobin 12.2 12.0-16.0 g/dL Hematocrit 40.9 37-47 % Mean Corpuscular Volume 100.2 80-100 fL Mean Corpuscular Hemoglobin 29.9 25-34 pg Mean Corpuscular Hemoglobin Concent 29.8 32-36 g/dl Platelet Count 132 130-400 K/uL Mean Platelet Volume 13.4 7.4-10.4 fL Neutrophils (%) (Auto) 91.6 % Lymphocytes (%) (Auto) 3.9 % Monocytes (%) (Auto) 3.5 % Eosinophils (%) (Auto) 0.0 % Basophils (%) (Auto) 0.1 % Neutrophils # (Auto) 17.22 1.4-6.5 K/uL Lymphocytes # (Auto) 0.73 1.2-3.4 K/uL Monocytes # (Auto) 0.66 0.11-0.59 K/uL Eosinophils # (Auto) 0.00 0-0.5 K/uL Basophils # (Auto) 0.01 0-0.2 K/uL RDW Standard Deviation 59.9 36.4-46.3 fL RDW Coefficient of Variation 16.4 11.5-14.5 % Immature Granulocyte % (Auto) 0.9 % Immature Granulocyte # (Auto) 0.17 0.00-0.02 K/uL Platelet Estimate DECREASED Hypochromasia PRESENT Prothrombin Time 10.4 9.0-12.0 SECONDS Prothromb Time International Ratio 1.0 0.9-1.1 Activated Partial Thromboplast Time 22.9 21.0-31.0 SECONDS Partial Thromboplastin Ratio 0.9 Sodium Level 142 136-145 mmol/L Potassium Level 5.7 3.5-5.1 mmol/L Chloride Level 102 98-107 mmol/L Carbon Dioxide Level 38 21-32 mmol/L Anion Gap 1.0 3-11 mmol/L Blood Urea Nitrogen 45 7-18 mg/dl Creatinine 1.30 0.60-1.20 mg/dl Est Creatinine Clear Calc Drug Dose 35.7 ml/min Estimated GFR () 48.1 Estimated GFR (Non- 41.5 BUN/Creatinine Ratio 34.3 10-20 Random Glucose 99 70-99 mg/dl Calcium Level 9.0 8.5-10.1 mg/dl Magnesium Level 3.5 1.8-2.4 mg/dl Total Bilirubin 0.3 0.2-1 mg/dl Direct Bilirubin 0.1 0-0.2 mg/dl Aspartate Amino Transf (AST/SGOT) 31 15-37 U/L Alanine Aminotransferase (ALT/SGPT) 23 12-78 U/L Alkaline Phosphatase 117 45-117 U/L Total Protein 5.9 6.4-8.2 gm/dl Albumin 3.0 3.4-5.0 gm/dl Lipase 171 73-393 U/L Thyroid Stimulating Hormone (TSH) 1.860 0.300-4.500 uIu/ml Bedside Lactic Acid Venous 1.81 0.90-1.70 mmol/L Arterial Blood pH 7.45 7.35-7.45 Arterial Blood Partial Pressure CO2 47 35-46 mmHg Arterial Blood Partial Pressure O2 85 80-95 mm/Hg Arterial Blood HCO3 32 19-24 mmol/L Arterial Blood Oxygen Saturation 93.3 90-95 % Arterial Blood Base Excess 7.6 -9-1.8 mEq/L Arterial Blood Gas Delivery 77% FiO2 [place] Test POS POS Microbiology Results 12/26/17 Blood Culture, Received Pending 12/26/17 Blood Culture, Received Pending 12/26/17 Urine Culture, Received Pending Diagnostic Radiology CHEST ONE VIEW PORTABLE HISTORY: 72 years-old Female EVALUATE WEAKNESS acute weakness. Patient is reportedly unresponsive COMPARISON: Chest radiograph 12/20/2017 TECHNIQUE: Portable supine AP view of the chest FINDINGS: Endotracheal tube is noted with distal tip overlying the midline approximately 1.4 cm superior to the level of the ramandeep. The heart is enlarged. Calcification of the aorta. Pulmonary vascular congestion. Interval development of interstitial opacities. Right-sided PICC appears unchanged. Alveolar opacities about the left greater than right lung bases. No pneumothorax or large pleural effusion. Lungs are hypoinflated. Multiple vertebroplasty changes with ORIF changes of the left humerus. Demineralized appearance of the bones. Multiple remote rib fractures. IMPRESSION: 1. Endotracheal tube overlies the midline, 1.4 cm superior to the ramandeep. 2. Cardiomegaly with suggested mild pulmonary edema. 3. Alveolar opacities of the left greater than right lung bases suggest atelectasis or pneumonia. HEAD WITHOUT CONTRAST (CT) CLINICAL HISTORY: 72 years-old Female with EVALUATE WEAKNESS. Acute weakness TECHNIQUE: Multiple axial CT images of the head were obtained without contrast. A dose lowering technique was utilized adhering to the principles of ALARA. CT DOSE: 614.27 mGy.cm COMPARISON: CT head 12/23/2017. FINDINGS: No acute intracranial hemorrhage, midline shift, intracranial mass, hydrocephalus, territorial ischemia or abnormal extra-axial collection. Mild atrophy. Cerebral vascular calcifications are noted. The calvarium is intact. Mastoid air cells and middle ear cavities are clear. Moderate mucosal thickening with air-fluid level of the left maxillary sinus, possibly reflecting acute sinus disease. Mild mucosal thickening of the ethmoid air cells. Soft tissues and orbits are unremarkable. Endotracheal tube is seen within the oral cavity. IMPRESSION: No acute intracranial abnormality. EKG The study demonstrates SR at 62bpm, left axis deviation, 1st degree AV block with UT interval of 234, QRS 94, QTc of 479, no evidence of acute ischemia Impression Assessment and Plan 72yo C female with multiple medical problems, recent hospital admission for intractable headache and constipation with discharge on 12/25/17 to [facility]. Patient became unresponsive and developed respiratory distress during dinner most likely secondary to an aspiration event s/p intubation in the field for hypoxic respiratory failure and increased work of breathing 1. Neuro: patient intubated, sedated. No focal deficits noted. Patient with history of chronic pain syndrome on methadone, history of intractable headache which was evaluated by Neurology at previous visit. Depression - on Cymbalta -Continue sedation and pain control with Versed and Fentanyl gtt, titrate to goal RASS of 0 - -2 -Chronic pain - will hold Methadone for now while patient is receiving above drips -Hold Cymbalta, Lyrica and Baclofen for now - monitor for evidence of withdrawal -Verapamil for headache prophylaxis - will hold for now -Continue Prednisone 60 mg po daily for headaches - if patient becomes hypotensive will start stress dose steroids. Plan to decrease by 10mg/day every two days until back to maintenance dose of 2.5mg. -Hold Baclofen for now 2. Cardiovascular - patient hemodynamically stable at present. No evidence of ischemia on EKG. Patient with history of HTN, HLP, chronic diastolic CHF. Per prior records patients blood pressure is very labile and highly responsive to PRN agents. -Check troponin x 1 -Continue Coreg 25mg po BID -Hold Hydralazine 10mg po TID for now, resume with caution while patient is on gtt medications that may induce hypotension 3. Pulmonary - patient intubated for hypoxic respiratory failure in setting of probably aspiration event. Elevated WBC count at 18.79, CXR suggestive of PNA vs chemical pneumonitis. History of COPD on home O2. History of bronchiectasis with recurrent PNA. -Zosyn - renal dosing 2.25gm IV q 6 hours -Continue Fluticasone/Salmeterol -Continue Tiotropium and Albuterol -Continue Prednisone 60 mg po daily - plan to decrease by 10mg every two days until reach 2.5mg daily 4. GI - stable. patient with history of duodenal bulb ulcer. -NPO except medications -OGT to be placed -Protonix 40 mg po BID -Bowel regimen with Colace BID PRN and Miralax PRN 5. - patient with history of CKD Stage III. BUN of 45, Cr of 1.3 near baseline function. Mildly elevated K at 5.7. No EKG changes -Repeat PRP -Avoid nephrotoxic agents -Renal dosing to all medications -Continue to monitor BUN, Cr, electrolytes and UOP 6. Heme - H/H stable, patient with history of anemia, macrocytic with MCV of 100.2 -Check B12 and Folate -Continue to monitor 7. ID - concern for aspiration PNA vs chemical pneumonitis -Zosyn as above -History of ESBL UTIs, UA negative. Contact precautions 8. Endocrine - history of hyperparathyroidism -Continue calcitonin spray 9. Rheum - history of gout -Continue Allopurinol 100mg po BID 10. F/E/N - heplock. Monitor electrolytes and replete as needed. Continue Thiamine at home dose. 11. Ppx - Lovenox for DVT, Protonix at home dose BID 12. Code - Full 13. Dispo - MICU, mechanically ventilated Resuscitation Status Full code per prior record VTE Prophylaxis Will order VTE Prophylaxis: Yes Note Total Time: Critical Care 30 - 74 minutes (Critical care time 70 minutes)
[2017-12-26 23:30] VITALS: BP 170/83; PULSE 53; O2SAT 92
[2017-12-26 23:45] VITALS: BP 170/83; PULSE 53; TEMP 35; O2SAT 93; BMI 25.5
[2017-12-26] MEDS ORDERED: ALBUTEROL 0.083% NEBU SOLN 3 ML VIAL INH PRN (23:45)
[2017-12-26] MEDS ORDERED: ENOXAPARIN 40 MG/0.4 ML SYR SQ SCH (23:45)
[2017-12-26 23:47] VITALS: BP 191/93; PULSE 51; O2SAT 97
[2017-12-26] MEDS: MIDAZOLAM 125MG/250ML D5W 250 ML IV PRN (23:54)
[2017-12-27] VITALS (77 sets, daily range): BP systolic 74–208; BP diastolic 41–106; PULSE 46–68; TEMP 33.8–36.7; O2SAT 89–98; Ht 149.9 cm; Wt 48.7 kg
[2017-12-27] MEDS ORDERED: HydrALAZINE 10 MG TAB PO ONE (00:47)
[2017-12-27] MEDS ORDERED: HydrALAZINE HCL 20 MG/ML VIAL IV. PRN (02:30)
[2017-12-27] MEDS ORDERED: VANCOMYCIN CONSULT ACTIVE PRN ×2 (02:45→19:00)
[2017-12-27] MEDS ORDERED: PIPERACILL/TAZOBAC IV 3.375 GM in DEXTROSE 5% 100ML 100 ML IV SCH (04:00)
[2017-12-27 04:56] LABS: CALCIUM 8.2 mg/dl (8.5-10.1); CREATININE 1.21 mg/dl (0.60-1.20); POTASSIUM 4.3 mmol/L (3.5-5.1)
[2017-12-27 05:11] LABS: HEMATOCRIT 36.8 % (37-47); HEMOGLOBIN 11.3 g/dL (12.0-16.0); MEAN CELL VOLUME 97.9 fL (80-100); MEAN CORPUSCULAR HEMOGLOBIN 30.1 pg (25-34); MEAN CORPUSCULAR HGB CONC 30.7 g/dl (32-36); MEAN PLATELET VOLUME 12.9 fL (7.4-10.4); PLATELET COUNT 130 K/uL (130-400); RED CELL DISTRIBUTION WIDTH CV 16.2 % (11.5-14.5); RED CELL DISTRIBUTION WIDTH SD 57.7 fL (36.4-46.3)
[2017-12-27 05:19] LABS: BASO % 0.1 %; BASO ABS # 0.02 K/uL (0-0.2); IG# 0.13 K/uL (0.00-0.02); LYMPH % 8.8 %; LYMPH ABS # 1.96 K/uL (1.2-3.4); MONO % 1.8 %; NEUT % 88.7 %; NEUT ABS # 19.79 K/uL (1.4-6.5)
[2017-12-27] MEDS ORDERED: SODIUM CHLORIDE 0.9% 500ML 500 ML IV STA (06:20)
[2017-12-27] MEDS: IPRATROPIUM BROMIDE HFA INHALER INH SCH ×5 (08:00→19:21)
--- NOTE | 2017-12-27 08:09 | Critical Care Consultation ---
Critical Care Consultation Date of Consultation: Dec 27, 2017. Attending Physician: Elenita Rowe MD Reason for Consultation: acute respiratory failure secondary to aspiration of food History of Present Illness Patient was reportedly discharged recently for [facility] for complicated urinary tract infection. She is a known aspirator and was eating dinner in her nursing facility experienced some coughing and noisy breathing, was discovered to have low oxygen saturations. EMS was called and transported the patient for further evaluation in the process patient's oxygen saturations continued decline and she was intubated via EMS for hypoxic respiratory failure. Past Medical/Surgical History Chronic pain History of ESBL organism and urinary tract infection Known aspiration into airway Renal artery stenosis Hypertension COPD Vitreous hemorrhage of right eye Family History Heart disease Social History Smoking Status: Former Smoker Drug Use: none Marital Status: Housing Status: lives with family Occupation Status: disabled Allergies Coded Allergies: Squash (Verified Allergy, Unknown, Zucchini, 12/26/17) Azithromycin (Verified Adverse Reaction, Mild, nausea, 12/26/17) Levofloxacin (Verified Adverse Reaction, Mild, nausea, 12/26/17) Home Medications Scheduled Allopurinol (Zyloprim), 100 MG PO BID Baclofen (Lioresal), 10 MG PO TID Calcitonin [place] (Calcitonin-H[place]tree), 1 SPRAY ERIC QAM Carvedilol (Coreg), 25 MG PO BID Cholecalciferol (D-1000), 4,000 UNITS PO QAM Dextrose (Diabetic Use) (Insta-Glucose), 1 APPLN PO UD Duloxetine HCl (Cymbalta), 30 MG PO QAM Fluticasone Prop/Salmeterol (Advair Diskus 250/50 60 Dose), 1 PUFFS INH BID Home O2 Therapy (Oxygen), 4 LITERS NA PRN Hydralazine HCl (Hydralazine HCl), 10 MG PO TID Ipratropium-Albuterol (Combivent Respimat), 1 PUFFS INH QID Loratadine (Claritin), 10 MG PO DAILY Methadone HCl (Methadone HCl), 30 MG PO TID Mirtazapine (Remeron), 15 MG PO HS Multivitamin (Multivitamin), 1 TAB PO QAM Nystatin (Topical) (Nystop), 1 APPLN TOP BID Pantoprazole (Protonix), 40 MG PO BID Polyethylene Glycol 3350 (Miralax), 17 GM PO BID Prednisone Tab (Prednisone), 60 MG PO DAILY Pregabalin (Lyrica), 50 MG PO BID Senna/Docusate Sod (Senokot S), 1 TAB PO BID Thiamine HCl (Vitamin B-1), 200 MG PO QAM Tiotropium [place] (Spiriva Handihaler), 1 CAP INH DAILY Verapamil Hcl (Verapamil Hcl Er), 120 MG PO QAM Scheduled PRN Acetaminophen (Tylenol), 650 MG PO Q6 PRN for Pain or Fever Albuterol Sulfate (Albuterol Sulfate), 1 VIAL NEB Q4 PRN for SOB/Wheezing Bisacodyl (Dulcolax), 1 SUPP TN UD PRN for Constipation Diazepam (Valium), 2.5 MG PO Q12 PRN for Headache Doxepin HCl (Antipruritic) (Doxepin Hydrochloride), 1 APPLN TOP Q6 PRN for Pain Epinephrine (Epipen), 0.3 MG IM UD PRN for ALLERGIC REACTION Lidocaine (Anorectal) (Lidocaine), 1 APPLN TOP Q6 PRN for Pain Magnesium Hydroxide (Milk Of Magnesia), 30 ML PO UD PRN for Constipation Mineral Oil (Enema Mineral Oil), 1 BTL TN UD PRN for Constipation Ondansetron (Ondansetron Hcl), 4 MG IV Q6 PRN for Nausea or Vomiting Ondasetron Odt (Zofran Odt), 4 MG SL Q6H PRN for Nausea Promethazine Hcl (Phenergan), 25 MG IV Q6 PRN for Nausea or Vomiting Saline (Saline Nasal [place]), 2 SPRAYS ERIC Q8 PRN for Nasal Congestion Sumatriptan Succinate (Imitrex), 25 MG PO UD PRN for Migraine Miscellaneous Medications Glucagon (Glucagon Emergency Kit), 1 APPLN IM Current Inpatient Medications Current Inpatient Medications Medications (Trade) Dose Ordered Sig/Estephania Route Start Time Stop Time Status Last Admin Dose Admin Enoxaparin Sodium (Lovenox Inj) 40 mg HS SQ 12/26/17 23:45 01/25/18 23:44 12/26/17 23:55 40 MG Acetaminophen (Tylenol Tab) 650 mg Q4H PRN PO 12/26/17 22:45 01/25/18 22:44 Ondansetron HCl (Zofran Inj) 4 mg Q6H PRN IV 12/26/17 22:45 01/25/18 22:44 Miscellaneous Information (Icu Protocol For Hyperglycemia) 1 ea PRN PRN N/A 12/26/17 22:45 12/28/17 22:44 Piperacillin Sod/ Tazobactam Sod 3.375 gm/Dextrose 115 ml @ 28.75 mls/ hr Q8H IV 12/27/17 04:00 01/03/18 03:59 12/27/17 03:44 28.75 MLS/HR Miscellaneous Information (Consult) 1 ea UD PRN N/A 12/26/17 22:45 01/25/18 22:44 Midazolam HCl 250 ml @ 0 mls/hr Q0M PRN IV 12/26/17 22:35 01/25/18 22:34 12/26/17 23:54 16 MLS/HR Fentanyl Citrate 250 ml @ 5 mls/hr Q24H IV 12/26/17 22:45 01/09/18 22:44 12/26/17 23:54 10 MLS/HR Allopurinol (Zyloprim Tab) 100 mg BID PO 12/27/17 09:00 01/26/18 08:59 Calcitonin [place] (Fortical Nasal [place]) 1 spray QAM ERIC 12/27/17 09:00 01/26/18 08:59 Carvedilol (Coreg Tab) 25 mg BID PO 12/27/17 09:00 01/26/18 08:59 Salmeterol Xinafoate/ Fluticasone (Advair Diskus 250/50 Inh) 1 puff BID INH 12/27/17 09:00 01/26/18 08:59 Tiotropium [place] (Spiriva Handihaler Inhaler) 1 puff DAILY INH 12/27/17 09:00 01/26/18 08:59 Albuterol Sulfate (Ventolin 0.083% 2.5MG/3ML Neb) 2.5 mg Q4H PRN INH 12/26/17 23:45 01/25/18 23:44 Docusate Sodium (coLACE SYRUP) 100 mg BID PRN PO 12/26/17 23:15 01/25/18 23:14 Prednisone (PredniSONE TAB) 60 mg DAILY PO 12/27/17 09:00 01/26/18 08:59 Polyethylene (Miralax Powder Packet) 17 gm BID PRN PO 12/26/17 23:45 01/25/18 23:14 Thiamine HCl 100 mg/Syringe 10 ml @ 2 mls/min QAM IV 12/27/17 09:00 01/26/18 08:59 Pantoprazole Sodium 40 mg/ Syringe 10 ml @ 5 mls/min BID@0900,2100 IV 12/27/17 09:00 01/26/18 08:59 Hydralazine HCl (Apresoline Tab) 10 mg TID PO 12/27/17 09:00 01/26/18 08:59 Hydralazine HCl (HydrALAZINE INJ) 10 mg Q4 PRN IV. 12/27/17 02:30 01/26/18 02:29 Vancomycin HCl (Consult) 1 ea UD PRN N/A 12/27/17 02:45 01/26/18 02:44 Ipratropium [place] (Atrovent Hfa Inhaler) 4 puffs QIDR INH 12/27/17 08:00 01/26/18 07:59 Albuterol (Ventolin Hfa Inhaler) 4 puffs QIDR INH 12/27/17 08:00 01/26/18 07:59 Review of Systems Unable to obtain secondary to patient intubation Physical Exam Date Time Temp Pulse Resp B/P (MAP) Pulse Ox O2 Delivery O2 Flow Rate FiO2 12/27/17 07:32 80 12/27/17 06:31 61 16 84/51 (64) 93 12/27/17 06:01 61 16 85/53 (65) 93 12/27/17 05:33 80 12/27/17 05:30 59 18 95/57 (69) 92 12/27/17 05:16 61 16 98/57 (74) 92 12/27/17 05:01 59 16 102/60 (75) 92 12/27/17 05:00 36.4 12/27/17 04:46 59 16 105/56 (72) 93 12/27/17 04:31 35.2 59 16 112/64 (80) 92 12/27/17 04:17 35.2 58 16 123/64 (84) 92 12/27/17 04:02 35.1 60 16 149/76 (101) 92 12/27/17 04:00 80 12/27/17 04:00 91 80 12/27/17 03:47 35.0 59 16 166/75 (122) 93 12/27/17 03:32 35.0 59 16 169/79 (119) 93 12/27/17 03:17 34.9 58 16 176/79 (132) 93 12/27/17 03:15 34.9 58 16 176/79 (132) 12/27/17 03:02 34.8 57 16 180/74 (117) 12/27/17 02:47 34.8 57 16 184/82 (123) 12/27/17 02:32 34.7 57 16 189/87 (135) 12/27/17 02:25 80 12/27/17 02:17 34.5 57 16 183/91 (114) 12/27/17 02:02 34.5 55 16 184/99 (106) 94 12/27/17 01:47 34.4 55 16 200/90 (144) 94 12/27/17 01:32 34.3 54 16 193/97 (141) 94 12/27/17 01:17 34.2 52 16 208/93 (128) 12/27/17 01:02 33.8 52 16 195/106 (136) 12/27/17 00:47 51 16 194/96 (116) 12/27/17 00:45 46 16 182/96 (155) 12/27/17 00:32 50 16 198/93 (161) 12/27/17 00:17 49 16 190/96 (137) 12/27/17 00:02 50 16 186/103 (145) 92 12/26/17 23:47 51 16 191/93 (142) 97 12/26/17 23:45 35.0 53 20 170/83 93 Mechanical Ventilator 80 12/26/17 23:30 53 17 170/83 (113) 92 12/26/17 23:25 80 12/26/17 23:03 53 16 152/105 91 12/26/17 23:00 53 16 152/105 91 Mechanical Ventilator 77 12/26/17 22:46 57 16 164/86 92 Mechanical Ventilator 77 12/26/17 22:07 56 16 95 12/26/17 22:06 179/91 12/26/17 22:02 55 16 95 12/26/17 22:01 165/93 12/26/17 21:57 55 18 91 12/26/17 21:52 174/127 12/26/17 21:50 58 17 93 12/26/17 21:46 197/187 12/26/17 21:45 60 18 94 12/26/17 21:43 244/228 12/26/17 21:40 57 17 95 12/26/17 21:38 80 12/26/17 21:35 59 18 96 12/26/17 21:30 0 12/26/17 21:26 94 10.0 80 12/26/17 21:25 0 12/26/17 21:20 5 12/26/17 21:16 166/103 12/26/17 21:15 62 19 90 12/26/17 21:11 163/108 12/26/17 21:10 61 16 91 12/26/17 21:06 168/105 12/26/17 21:05 60 13 94 12/26/17 21:03 173/91 12/26/17 21:01 94 12/26/17 21:01 60 16 166/123 94 12/26/17 21:01 169/93 12/26/17 21:00 60 12/26/17 21:00 60 18 92 12/26/17 20:59 166/123 12/26/17 20:55 63 21 93 12/26/17 20:53 64 12/26/17 20:50 64 16 93 General: Sedated. Skin: Warm, dry, Head: Atraumatic Ears, nose, mouth and throat: Endotracheal tube present Cardiovascular: Normal peripheral perfusion Respiratory: Coarse sounds bilaterally Gastrointestinal: Non distended Musculoskeletal: No deformity Laboratory Results Last 24 Hours Test 12/26/17 21:07 12/26/17 21:21 12/26/17 21:28 12/26/17 22:47 Urine Color YELLOW Urine Appearance CLEAR Urine pH 6.0 Urine Specific [place] 1.022 Urine Protein TRACE Urine Glucose (UA) NEG Urine Ketones NEG Urine Occult Blood NEG Urine Nitrite NEG Urine Bilirubin NEG Urine Urobilinogen NEG Urine Leukocyte Esterase NEG Urine WBC (Auto) 0 /hpf Urine RBC (Auto) 0-4 /hpf Urine Hyaline Casts (Auto) 1-5 /lpf Urine Epithelial Cells (Auto) 0-5 /lpf Urine Bacteria (Auto) NEG White Blood Count 18.79 K/uL Red Blood Count 4.08 M/uL Hemoglobin 12.2 g/dL Hematocrit 40.9 % Mean Corpuscular Volume 100.2 fL Mean Corpuscular Hemoglobin 29.9 pg Mean Corpuscular Hemoglobin Concent 29.8 g/dl Platelet Count 132 K/uL Mean Platelet Volume 13.4 fL Neutrophils (%) (Auto) 91.6 % Lymphocytes (%) (Auto) 3.9 % Monocytes (%) (Auto) 3.5 % Eosinophils (%) (Auto) 0.0 % Basophils (%) (Auto) 0.1 % Neutrophils # (Auto) 17.22 K/uL Lymphocytes # (Auto) 0.73 K/uL Monocytes # (Auto) 0.66 K/uL Eosinophils # (Auto) 0.00 K/uL Basophils # (Auto) 0.01 K/uL RDW Standard Deviation 59.9 fL RDW Coefficient of Variation 16.4 % Immature Granulocyte % (Auto) 0.9 % Immature Granulocyte # (Auto) 0.17 K/uL Platelet Estimate DECREASED Hypochromasia PRESENT Prothrombin Time 10.4 SECONDS Prothromb Time International Ratio 1.0 Activated Partial Thromboplast Time 22.9 SECONDS Partial Thromboplastin Ratio 0.9 Sodium Level 142 mmol/L Potassium Level 5.7 mmol/L Chloride Level 102 mmol/L Carbon Dioxide Level 38 mmol/L Anion Gap 1.0 mmol/L Blood Urea Nitrogen 45 mg/dl Creatinine 1.30 mg/dl Est Creatinine Clear Calc Drug Dose 35.7 ml/min Estimated GFR () 48.1 Estimated GFR (Non- 41.5 BUN/Creatinine Ratio 34.3 Random Glucose 99 mg/dl Calcium Level 9.0 mg/dl Magnesium Level 3.5 mg/dl Total Bilirubin 0.3 mg/dl Direct Bilirubin 0.1 mg/dl Aspartate Amino Transf (AST/SGOT) 31 U/L Alanine Aminotransferase (ALT/SGPT) 23 U/L Alkaline Phosphatase 117 U/L Total Protein 5.9 gm/dl Albumin 3.0 gm/dl Lipase 171 U/L Procalcitonin < 0.05 ng/ml Thyroid Stimulating Hormone (TSH) 1.860 uIu/ml Bedside Lactic Acid Venous 1.81 mmol/L Arterial Blood pH 7.45 Arterial Blood Partial Pressure CO2 47 mmHg Arterial Blood Partial Pressure O2 85 mm/Hg Arterial Blood HCO3 32 mmol/L Arterial Blood Oxygen Saturation 93.3 % Arterial Blood Base Excess 7.6 mEq/L Arterial Blood Gas Delivery 77% FiO2 Leroy Test POS Test 12/27/17 00:10 12/27/17 00:39 12/27/17 04:24 12/27/17 05:34 Troponin I < 0.015 ng/ml Bedside Glucose 146 mg/dl 105 mg/dl White Blood Count 22.30 K/uL Red Blood Count 3.76 M/uL Hemoglobin 11.3 g/dL Hematocrit 36.8 % Mean Corpuscular Volume 97.9 fL Mean Corpuscular Hemoglobin 30.1 pg Mean Corpuscular Hemoglobin Concent 30.7 g/dl Platelet Count 130 K/uL Mean Platelet Volume 12.9 fL Neutrophils (%) (Auto) 88.7 % Lymphocytes (%) (Auto) 8.8 % Monocytes (%) (Auto) 1.8 % Eosinophils (%) (Auto) 0.0 % Basophils (%) (Auto) 0.1 % Neutrophils # (Auto) 19.79 K/uL Lymphocytes # (Auto) 1.96 K/uL Monocytes # (Auto) 0.40 K/uL Eosinophils # (Auto) 0.00 K/uL Basophils # (Auto) 0.02 K/uL RDW Standard Deviation 57.7 fL RDW Coefficient of Variation 16.2 % Immature Granulocyte % (Auto) 0.6 % Immature Granulocyte # (Auto) 0.13 K/uL Red Blood Cell Morphology Unremarkable Sodium Level 141 mmol/L Potassium Level 4.3 mmol/L Chloride Level 100 mmol/L Carbon Dioxide Level 36 mmol/L Anion Gap 5.0 mmol/L Blood Urea Nitrogen 43 mg/dl Creatinine 1.21 mg/dl Est Creatinine Clear Calc Drug Dose 33.3 ml/min Estimated GFR () 52.5 Estimated GFR (Non- 45.3 BUN/Creatinine Ratio 35.7 Random Glucose 112 mg/dl Lactic Acid Level 2.4 mmol/L Calcium Level 8.2 mg/dl Assessment & Plan Reason Critically Ill: Acute respiratory failure secondary to aspiration of food PLAN: Neuro: Chronic pain -Methadone use: 30 mg 3 times daily -Cymbalta: 30 mg every morning -Lyrica: 50 mg twice daily -Baclofen: 10 mg 3 times daily -Valium 5 mg every 5 hours as needed 14 days Chronic cephalgia -60 MG PO QAM tapering schedule -Pain clinic appointment was previously scheduled for December 26, 2017 -Verapamil headache prophylaxis ER 120 mg every morning Sedation: Versed infusion Analgesia: Fentanyl infusion Polypharmacy: Considering creatinine clearance to be 33 -Restart daily methadone (no dose change), Cymbalta (decreasing dose to 20 mg), Lyrica (no dose change), baclofen (decreasing dose to 5 mg 3 times daily) at maintenance dose -Discontinuing Remeron, this also prolonged QTC -Discontinuing Valium at this time -Prednisone 60 mg today then taper by decreasing by 10 mg every 2 days to baseline dose -Holding verapamil while unable to swallow -Not continuing sumatriptan as needed headache at this time Goal RASS -1 -Decreasing Versed infusion -Sedation vacation -Convert fentanyl infusion to as needed bolus History right eye vitreous hemorrhage -Seen by ophthalmology on last admission -Per discharge instructions holding Plavix will ultimately need follow -up with retinal specialist Resp: Acute hypoxic respiratory failure secondary to aspiration -Plan for bronchoscopy today given continued hypoxia -Imipenem for gram-negative and anaerobic coverage for possible pneumonia secondary to aspiration and history of ESBL -Discontinuing vancomycin, MRSA swab negative CV: History hypertension, history renal artery stenosis status post stenting -Per records July 2017 patient was on Coreg 25 mg twice daily, nifedipine 30 mg XR once daily and hydralazine 10 mg p.o. 3 times daily and Lasix -Not continuing hydralazine at this time History chronic diastolic heart failure -Continue Coreg History hyperlipidemia -July 28, 2016 LDL 141 -Continue Coreg -Adding statin, unable to find contraindication in medical records at this time -20 mg Crestor -Fasting lipid profile in a.m.lipi Prolonged QTC -Likely medication induced -Continue to monitor closely Fluids/Renal: Chronic kidney disease stage III -Estimated GFR approximately 33 -[place] Normosol at 75 ML's per hour Mild lactic acidosis insert first recheck this afternoon ID: Aspiration pneumonia -Continue single agent coverage with imipenem -Patient does have Pseudomonas risk however based on hospital antibiogram double coverage not indicated History recurrent UTI -Given fosfomycin on previous admission History ESBL E. coli in urine culture August 2017 -Blood cultures pending -Urine culture pending -Previous cultures no growth GI/Nutrition: N.p.o. Protonix for prophylaxis -Continue Zofran secondary to QTC concerns Heme: History macrocytic anemia -B12 and folate pending -When able to take p.o. would reinstitute daily multivitamin folic acid Endocrine: History hyperparathyroidism -Continue calcitonin Vascular access: Peripheral IVs Code Status: Status full, reviewed prior case management notes power of estate planning attorney is son who resides in [place], will attempt to contact today for permission for bronchoscopy and readdress goals of care. Patient was discussed on multidisciplinary rounds Medications were discussed at length with pharmacy I have personally spent 120 minutes of critical care time in the direct management of this patient. This is a life/limb threatening event. This includes time spent evaluating patient, direct bedside care, chart review, placing orders, interpretation of diagnostic studies, discussion with consultants, patient, and/or family members regarding treatment decisions, as well as other required patient management activities. This time is exclusive of all separately billable procedures, and teaching time and separate from and in addition to any other critical care service time.
[2017-12-27] MEDS ORDERED: IMIPENEM/CILASTATIN CONSULT ACTIVE PRN (08:15)
[2017-12-27] MEDS ORDERED: IMIPENEM/CILASTATIN IV 300 MG in DEXTROSE 5% 100ML 100 ML IV ONE (08:15)
[2017-12-27] MEDS: ALBUTEROL HFA 8 GM INHALER INH SCH ×4 (08:22→19:21)
[2017-12-27] MEDS: FLUTICASONE/SALMETEROL 250/50 (ADVAIR) 14 PUFF/1 INHALER INH SCH ×2 (08:30→20:15)
[2017-12-27] MEDS: HydrALAZINE 10 MG TAB PO SCH ×3 (08:30→21:07)
[2017-12-27] MEDS: CALCITONIN SALMON NA 200 IU/AC 3.7 ML BTL NAE SCH (08:30)
[2017-12-27] MEDS: CARVEDILOL 25 MG TAB PO SCH ×2 (08:31→21:06)
[2017-12-27] MEDS: PANTOprazole INJ 40 MG in SYRINGE 0 ML IV SCH ×2 (08:37→20:14)
[2017-12-27] MEDS: ALLOPURINOL 100 MG TAB PO SCH ×2 (08:37→21:05)
[2017-12-27] MEDS: THIAMINE HCL INJ 100 MG in SYRINGE 9 ML IV SCH (08:37)
[2017-12-27] MEDS ORDERED: VERAPAMIL HCL 120 MG TABCR PO SCH (09:00)
[2017-12-27] MEDS ORDERED: PANTOprazole SOD 40 MG TAB PO SCH ×2 (09:00)
[2017-12-27] MEDS ORDERED: THIAMINE HCL 100 MG TAB PO SCH (09:00)
[2017-12-27] MEDS ORDERED: TIOTROPIUM BROMIDE 5 PUFF/90 MCG INH INH SCH (09:00)
[2017-12-27] MEDS ORDERED: DULOXETINE (CYMBALTA) 30 MG CAP PO SCH (09:00)
[2017-12-27] MEDS ORDERED: BACLOFEN 10 MG TAB PO SCH (09:00)
[2017-12-27] MEDS ORDERED: PREGABALIN 50 MG CAP PO SCH (09:00)
[2017-12-27] MEDS ORDERED: IPRATROPIUM BROMIDE/ALBUTEROL respimat INH INH SCH (09:00)
[2017-12-27] MEDS ORDERED: VANCOMYCIN IV 500 MG in SODIUM CHLORIDE 0.9% 250ML 250 ML IV SCH (09:00)
[2017-12-27] MEDS: PREGABALIN 50 MG CAP PO SCH ×2 (09:44→21:05)
[2017-12-27] MEDS: DULOXETINE HCL 20 MG CAP PO SCH (09:45)
[2017-12-27] MEDS: BACLOFEN 10 MG TAB PO SCH ×3 (09:45→21:06)
[2017-12-27] MEDS: METHADONE HCL 10 MG TAB PO SCH ×3 (09:45→21:06)
[2017-12-27] MEDS: NORMOSOL R 1,000 ML IV SCH ×2 (09:45→22:14)
--- NOTE | 2017-12-27 10:40 | Medical Consult ---
Consultation Date of Consultation: Dec 27, 2017. Attending Physician: Elenita Rowe MD Reason for Consultation: Imipenem use History of Present Illness 72-year-old female well-known to the infectious disease service, recently hospitalized for headache and constipation, history of recurrent urinary tract infections, was eating dinner last night and suddenly became unresponsive with respiratory distress. EMS was called and patient required intubation with finding of large amount of food particles in her airway. She has remained unresponsive and intubated. She has been started empirically on imipenem, MRSA screen is negative, chest x-ray, read by me, shows bibasilar infiltrates consistent with developing aspiration pneumonia. White count 22,000, patient has been somewhat hypothermic. Past Medical/Surgical History Medical Problems: (1) Abdominal pain Status: Acute (2) Acute kidney injury superimposed on chronic kidney disease Status: Acute (3) Altered mental status Status: Acute (4) Anemia Status: Acute (5) Back pain Status: Acute (6) Bilateral pneumonia Status: Acute (7) CHF (congestive heart failure) Status: Acute (8) Chronic Kidney Disease, Stage Iii (Moderate) Status: Chronic (9) Chronic, continuous use of opioids Status: Acute (10) COPD exacerbation Status: Acute (11) COPD exacerbation Status: Acute (12) Crystal arthritis Status: Chronic (13) Dehydration Status: Acute (14) Dehydration Status: Acute (15) Duodenal bulb ulcer Status: Chronic (16) Dysuria Status: Acute (17) Failure of outpatient treatment Status: Acute (18) Failure of outpatient treatment Status: Acute (19) Gallbladder dilatation Status: Acute (20) Generalized weakness Status: Acute (21) Gout Status: Chronic (22) Hyperlipidemia Nec/Nos Status: Chronic (23) Hypertension Status: Chronic (24) Hypoxemia Status: Acute (25) Hypoxia Status: Acute (26) Hypoxia Status: Acute (27) Hypoxia Status: Acute (28) Hypoxia Status: Acute (29) Lumbar compression fracture Status: Chronic (30) Nausea & vomiting Status: Acute (31) Opiate use Status: Chronic (32) Osteoporosis Status: Chronic (33) Peripheral edema Status: Acute (34) Pneumonia Status: Acute (35) Pneumonia Status: Acute (36) Pneumonia involving right lung Status: Acute (37) Renal insufficiency Status: Acute (38) Respiratory acidosis Status: Acute (39) Respiratory distress Status: Acute (40) Right renal artery stenosis Status: Chronic (41) Secondary hyperparathyroidism Status: Chronic (42) UTI (urinary tract infection) Status: Acute Medical Problems: (1) Acute respiratory failure with hypoxia (2) Acute respiratory failure with hypoxia (3) Altered mental status (4) Ambulatory dysfunction (5) Cholelithiases (6) Chronic kidney disease (CKD) stage G3a/A1, moderately decreased glomerular filtration rate (GFR) between 45-59 mL/min/1.73 square meter and albuminuria creatinine ratio less than 30 mg/g (7) Chronic Kidney Disease, Stage Iii (Moderate) (8) Compression fracture of fourth lumbar vertebra (9) COPD (chronic obstructive pulmonary disease) (10) Crystal arthritis (11) Duodenal bulb ulcer (12) DVT (deep venous thrombosis) (13) Fecal impaction of colon (14) Fever (15) Fracture of right olecranon process (16) Gout (17) Gout attack (18) Headache (19) Hodgkins lymphoma (20) Humerus fracture (21) Hyperlipidemia Nec/Nos (22) Hypertension (23) Hypertension (24) Hypertensive urgency (25) Intractable pain (26) Knee pain (27) Left renal artery stenosis (28) Lethargy (29) Leukocytosis (30) Lower extremity edema (31) Lumbar compression fracture (32) Malignant HTN with heart disease, 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, with chronic kidney disease (33) Mucus plugging of bronchi (34) Narcotic withdrawal (35) Opiate use (36) Opioid dependence (37) ORIF left femur (38) Osteoporosis (39) Perforated duodenal ulcer (40) PNA (pneumonia) (41) Pneumonia (42) Prolonged Q-T interval on ECG (43) Renal artery stenosis (44) right hand cellulitis (45) Right renal artery stenosis (46) Rigors (47) Secondary hyperparathyroidism (48) Sepsis secondary to UTI (49) Stage 3 chronic kidney disease (50) Thrush, oral (51) UTI (urinary tract infection) (52) UTI (urinary tract infection) (53) Vitreous hemorrhage of right eye (54) Wedge compression fracture of T11 vertebra Surgical Problems: (1) H/O total hip arthroplasty (2) History of kyphoplasty (3) History of kyphoplasty (4) left renal artery stent placement Family History Heart disease Social History Smoking Status: Former Smoker Drug Use: none Marital Status: Housing Status: lives with family Occupation Status: disabled Allergies Coded Allergies: Squash (Verified Allergy, Unknown, [place], 12/26/17) Azithromycin (Verified Adverse Reaction, Mild, nausea, 12/26/17) Levofloxacin (Verified Adverse Reaction, Mild, nausea, 12/26/17) Current Inpatient Medications Current Inpatient Medications Medications (Trade) Dose Ordered Sig/Estephania Route Start Time Stop Time Status Last Admin Dose Admin Acetaminophen (Tylenol Tab) 650 mg Q4H PRN PO 12/26/17 22:45 01/25/18 22:44 Miscellaneous Information (Icu Protocol For Hyperglycemia) 1 ea PRN PRN N/A 12/26/17 22:45 12/28/17 22:44 Midazolam HCl 250 ml @ 0 mls/hr Q0M PRN IV 12/26/17 22:35 01/25/18 22:34 12/26/17 23:54 16 MLS/HR Allopurinol (Zyloprim Tab) 100 mg BID PO 12/27/17 09:00 01/26/18 08:59 12/27/17 08:37 100 MG Calcitonin [place] (Fortical Nasal [place]) 1 spray QAM ERIC 12/27/17 09:00 01/26/18 08:59 Carvedilol (Coreg Tab) 25 mg BID PO 12/27/17 09:00 01/26/18 08:59 Salmeterol Xinafoate/ Fluticasone (Advair Diskus 250/50 Inh) 1 puff BID INH 12/27/17 09:00 01/26/18 08:59 Tiotropium [place] (Spiriva Handihaler Inhaler) 1 puff DAILY INH 12/27/17 09:00 01/26/18 08:59 Albuterol Sulfate (Ventolin 0.083% 2.5MG/3ML Neb) 2.5 mg Q4H PRN INH 12/26/17 23:45 01/25/18 23:44 Docusate Sodium (coLACE SYRUP) 100 mg BID PRN PO 12/26/17 23:15 01/25/18 23:14 Polyethylene (Miralax Powder Packet) 17 gm BID PRN PO 12/26/17 23:45 01/25/18 23:14 Thiamine HCl 100 mg/Syringe 10 ml @ 2 mls/min QAM IV 12/27/17 09:00 01/26/18 08:59 12/27/17 08:37 2 MLS/MIN Pantoprazole Sodium 40 mg/ Syringe 10 ml @ 5 mls/min BID@0900,2100 IV 12/27/17 09:00 01/26/18 08:59 12/27/17 08:37 5 MLS/MIN Hydralazine HCl (Apresoline Tab) 10 mg TID PO 12/27/17 09:00 01/26/18 08:59 Hydralazine HCl (HydrALAZINE INJ) 10 mg Q4 PRN IV. 12/27/17 02:30 01/26/18 02:29 Ipratropium [place] (Atrovent Hfa Inhaler) 4 puffs QIDR INH 12/27/17 08:00 01/26/18 07:59 12/27/17 08:30 4 PUFFS Albuterol (Ventolin Hfa Inhaler) 4 puffs QIDR INH 12/27/17 08:00 01/26/18 07:59 12/27/17 08:22 4 PUFFS Imipenem/ Cilastatin Sodium (Consult) 1 ea UD PRN N/A 12/27/17 08:15 01/26/18 08:14 Methadone HCl (Dolophine Tab) 30 mg TID PO 12/27/17 09:00 01/10/18 08:59 12/27/17 09:45 30 MG Pregabalin (Lyrica Cap) 50 mg BID PO 12/27/17 09:00 01/26/18 08:59 12/27/17 09:44 50 MG Duloxetine HCl (Cymbalta Cap) 20 mg QAM PO 12/27/17 09:00 01/26/18 08:59 12/27/17 09:45 20 MG Baclofen (Lioresal Tab) 5 mg TID PO 12/27/17 09:00 01/26/18 08:59 12/27/17 09:45 5 MG Fentanyl Citrate (Fentanyl Inj) 100 mcg Q2H PRN IV 12/27/17 09:00 01/10/18 08:59 Rosuvastatin Calcium (Crestor Tab) 20 mg QPM PO 12/27/17 21:00 01/26/18 20:59 Parenteral Electrolyte Solution 1,000 ml @ 75 mls/hr [id number] IV 12/27/17 09:15 01/26/18 09:14 12/27/17 09:45 75 MLS/HR Enoxaparin Sodium (Lovenox Inj) 30 mg HS SQ 12/27/17 21:00 01/26/18 20:59 Prednisone (PredniSONE TAB) 50 mg Taper QAM PO 12/28/17 09:00 01/07/18 08:59 Prednisone (PredniSONE TAB) 5 mg QAM PO 01/07/18 09:00 01/08/18 09:01 Prednisone (PredniSONE TAB) 2.5 mg QAM PO 01/09/18 09:00 02/08/18 08:59 Imipenem/ Cilastatin Sodium 300 mg/Dextrose 106 ml @ 106 mls/hr Q6H IV 12/27/17 14:00 01/03/18 07:59 Review of Systems Unable to obtain because of patient's mental status Physical Exam Date Time Temp Pulse Resp B/P (MAP) Pulse Ox O2 Delivery O2 Flow Rate FiO2 12/27/17 10:25 80 12/27/17 10:11 62 16 112/56 (74) 91 12/27/17 10:09 62 16 91 12/27/17 10:08 62 16 90 12/27/17 10:01 61 19 80/49 (59) 89 12/27/17 10:00 62 16 90 12/27/17 09:53 60 16 96/51 (66) 91 12/27/17 09:51 60 16 74/41 (52) 90 12/27/17 09:49 61 16 83/46 (58) 91 12/27/17 09:31 59 16 82/49 (60) 93 12/27/17 09:30 62 16 93 12/27/17 09:01 62 16 97/51 (66) 94 12/27/17 09:00 59 16 94 12/27/17 08:31 61 16 106/62 (77) 91 12/27/17 08:30 70 12/27/17 08:30 62 16 91 12/27/17 08:23 70 12/27/17 08:01 60 16 83/51 (62) 91 12/27/17 08:00 80 12/27/17 08:00 61 16 91 12/27/17 08:00 36.7 60 16 90/54 (66) 92 Mechanical Ventilator 10.0 70 12/27/17 08:00 Mechanical Ventilator 10.0 80 12/27/17 07:45 59 16 92/55 (67) 92 12/27/17 07:32 60 16 90/54 (66) 92 12/27/17 07:32 80 12/27/17 07:30 59 16 95 12/27/17 06:31 61 16 84/51 (64) 93 12/27/17 06:01 61 16 85/53 (65) 93 12/27/17 05:33 80 12/27/17 05:30 59 18 95/57 (69) 92 12/27/17 05:16 61 16 98/57 (74) 92 12/27/17 05:01 59 16 102/60 (75) 12/27/17 05:00 36.4 12/27/17 04:46 59 16 105/56 (72) 12/27/17 04:31 35.2 59 16 112/64 (80) 12/27/17 04:17 35.2 58 16 123/64 (84) 12/27/17 04:02 35.1 60 16 149/76 (101) 92 12/27/17 04:00 80 12/27/17 04:00 91 80 12/27/17 03:47 35.0 59 16 166/75 (122) 12/27/17 03:32 35.0 59 16 169/79 (119) 12/27/17 03:17 34.9 58 16 176/79 (132) 12/27/17 03:15 34.9 58 16 176/79 (132) 12/27/17 03:02 34.8 57 16 180/74 (117) 12/27/17 02:47 34.8 57 16 184/82 (123) 12/27/17 02:32 34.7 57 16 189/87 (135) 12/27/17 02:25 80 12/27/17 02:17 34.5 57 16 183/91 (114) 12/27/17 02:02 34.5 55 16 184/99 (106) 12/27/17 01:47 34.4 55 16 200/90 (144) 12/27/17 01:32 34.3 54 16 193/97 (141) 12/27/17 01:17 34.2 52 16 208/93 (128) 93 12/27/17 01:02 33.8 52 16 195/106 (136) 93 12/27/17 00:47 51 16 194/96 (116) 93 12/27/17 00:45 46 16 182/96 (155) 93 12/27/17 00:32 50 16 198/93 (161) 92 12/27/17 00:17 49 16 190/96 (137) 92 12/27/17 00:02 50 16 186/103 (145) 92 12/26/17 23:47 51 16 191/93 (142) 97 12/26/17 23:45 35.0 53 20 170/83 93 Mechanical Ventilator 80 12/26/17 23:30 53 17 170/83 (113) 92 12/26/17 23:25 80 12/26/17 23:03 53 16 152/105 91 12/26/17 23:00 53 16 152/105 91 Mechanical Ventilator 77 12/26/17 22:46 57 16 164/86 92 Mechanical Ventilator 77 12/26/17 22:07 56 16 95 12/26/17 22:06 179/91 12/26/17 22:02 55 16 95 12/26/17 22:01 165/93 12/26/17 21:57 55 18 91 12/26/17 21:52 174/127 12/26/17 21:50 58 17 93 12/26/17 21:46 197/187 12/26/17 21:45 60 18 94 12/26/17 21:43 244/228 12/26/17 21:40 57 17 95 12/26/17 21:38 80 12/26/17 21:35 59 18 96 12/26/17 21:30 0 12/26/17 21:26 94 10.0 80 12/26/17 21:25 0 12/26/17 21:20 5 12/26/17 21:16 166/103 12/26/17 21:15 62 19 90 12/26/17 21:11 163/108 12/26/17 21:10 61 16 91 12/26/17 21:06 168/105 12/26/17 21:05 60 13 94 12/26/17 21:03 173/91 12/26/17 21:01 94 12/26/17 21:01 60 16 166/123 94 12/26/17 21:01 169/93 12/26/17 21:00 60 12/26/17 21:00 60 18 92 12/26/17 20:59 166/123 12/26/17 20:55 63 21 93 12/26/17 20:53 64 12/26/17 20:50 64 16 93 General Appearance: WD/WN, + pertinent finding (Unresponsive on ventilator) Head: normocephalic, atraumatic Eyes: normal inspection, EOMI, sclerae normal ENT: normal ENT inspection, + pertinent finding (Endotracheal tube in place) Neck: supple, no adenopathy, thyroid normal, trachea midline Respiratory/Chest: chest non-tender, no respiratory distress, + rhonchi, + wheezing Cardiovascular: regular rate, rhythm, no gallop, no murmur Abdomen/GI: normal bowel sounds, non tender, soft, no organomegaly Genitourinary - Female: + pertinent finding (White catheter draining clear urine) Back: normal inspection, no CVA tenderness Extremities/Musculoskelatal: normal inspection, normal capillary refill Neurologic/Psych: + pertinent finding (Sedated on ventilator, withdraws to pain ) Skin: normal color, no rash, + pertinent finding (Multiple ecchymoses) Lymphatic: no adenopathy Laboratory Results Date/Time Source Procedure Growth Status 12/26/17 21:21 Blood Blood Culture Pending Received 12/26/17 22:30 Nasal MRSA DNA Surveillance Screen - Final Specimen Negative for MRSA by DNA Probe Complete 12/26/17 21:07 Urine,Catheterized Urine Culture Pending Received Last 24 Hours Test 12/26/17 21:07 12/26/17 21:21 12/26/17 21:28 12/26/17 22:47 Urine Color YELLOW Urine Appearance CLEAR Urine pH 6.0 Urine Specific [place] 1.022 Urine Protein TRACE Urine Glucose (UA) NEG Urine Ketones NEG Urine Occult Blood NEG Urine Nitrite NEG Urine Bilirubin NEG Urine Urobilinogen NEG Urine Leukocyte Esterase NEG Urine WBC (Auto) 0 /hpf Urine RBC (Auto) 0-4 /hpf Urine Hyaline Casts (Auto) 1-5 /lpf Urine Epithelial Cells (Auto) 0-5 /lpf Urine Bacteria (Auto) NEG White Blood Count 18.79 K/uL Red Blood Count 4.08 M/uL Hemoglobin 12.2 g/dL Hematocrit 40.9 % Mean Corpuscular Volume 100.2 fL Mean Corpuscular Hemoglobin 29.9 pg Mean Corpuscular Hemoglobin Concent 29.8 g/dl Platelet Count 132 K/uL Mean Platelet Volume 13.4 fL Neutrophils (%) (Auto) 91.6 % Lymphocytes (%) (Auto) 3.9 % Monocytes (%) (Auto) 3.5 % Eosinophils (%) (Auto) 0.0 % Basophils (%) (Auto) 0.1 % Neutrophils # (Auto) 17.22 K/uL Lymphocytes # (Auto) 0.73 K/uL Monocytes # (Auto) 0.66 K/uL Eosinophils # (Auto) 0.00 K/uL Basophils # (Auto) 0.01 K/uL RDW Standard Deviation 59.9 fL RDW Coefficient of Variation 16.4 % Immature Granulocyte % (Auto) 0.9 % Immature Granulocyte # (Auto) 0.17 K/uL Platelet Estimate DECREASED Hypochromasia PRESENT Prothrombin Time 10.4 SECONDS Prothromb Time International Ratio 1.0 Activated Partial Thromboplast Time 22.9 SECONDS Partial Thromboplastin Ratio 0.9 Sodium Level 142 mmol/L Potassium Level 5.7 mmol/L Chloride Level 102 mmol/L Carbon Dioxide Level 38 mmol/L Anion Gap 1.0 mmol/L Blood Urea Nitrogen 45 mg/dl Creatinine 1.30 mg/dl Est Creatinine Clear Calc Drug Dose 35.7 ml/min Estimated GFR () 48.1 Estimated GFR (Non- 41.5 BUN/Creatinine Ratio 34.3 Random Glucose 99 mg/dl Calcium Level 9.0 mg/dl Magnesium Level 3.5 mg/dl Total Bilirubin 0.3 mg/dl Direct Bilirubin 0.1 mg/dl Aspartate Amino Transf (AST/SGOT) 31 U/L Alanine Aminotransferase (ALT/SGPT) 23 U/L Alkaline Phosphatase 117 U/L Total Protein 5.9 gm/dl Albumin 3.0 gm/dl Lipase 171 U/L Procalcitonin < 0.05 ng/ml Thyroid Stimulating Hormone (TSH) 1.860 uIu/ml Bedside Lactic Acid Venous 1.81 mmol/L Arterial Blood pH 7.45 Arterial Blood Partial Pressure CO2 47 mmHg Arterial Blood Partial Pressure O2 85 mm/Hg Arterial Blood HCO3 32 mmol/L Arterial Blood Oxygen Saturation 93.3 % Arterial Blood Base Excess 7.6 mEq/L Arterial Blood Gas Delivery 77% FiO2 Leroy Test POS Test 12/27/17 00:10 12/27/17 00:39 12/27/17 04:24 12/27/17 05:34 Troponin I < 0.015 ng/ml Bedside Glucose 146 mg/dl 105 mg/dl White Blood Count 22.30 K/uL Red Blood Count 3.76 M/uL Hemoglobin 11.3 g/dL Hematocrit 36.8 % Mean Corpuscular Volume 97.9 fL Mean Corpuscular Hemoglobin 30.1 pg Mean Corpuscular Hemoglobin Concent 30.7 g/dl Platelet Count 130 K/uL Mean Platelet Volume 12.9 fL Neutrophils (%) (Auto) 88.7 % Lymphocytes (%) (Auto) 8.8 % Monocytes (%) (Auto) 1.8 % Eosinophils (%) (Auto) 0.0 % Basophils (%) (Auto) 0.1 % Neutrophils # (Auto) 19.79 K/uL Lymphocytes # (Auto) 1.96 K/uL Monocytes # (Auto) 0.40 K/uL Eosinophils # (Auto) 0.00 K/uL Basophils # (Auto) 0.02 K/uL RDW Standard Deviation 57.7 fL RDW Coefficient of Variation 16.2 % Immature Granulocyte % (Auto) 0.6 % Immature Granulocyte # (Auto) 0.13 K/uL Red Blood Cell Morphology Unremarkable Sodium Level 141 mmol/L Potassium Level 4.3 mmol/L Chloride Level 100 mmol/L Carbon Dioxide Level 36 mmol/L Anion Gap 5.0 mmol/L Blood Urea Nitrogen 43 mg/dl Creatinine 1.21 mg/dl Est Creatinine Clear Calc Drug Dose 33.3 ml/min Estimated GFR () 52.5 Estimated GFR (Non- 45.3 BUN/Creatinine Ratio 35.7 Random Glucose 112 mg/dl Lactic Acid Level 2.4 mmol/L Calcium Level 8.2 mg/dl Triglycerides Level 194 mg/dl Cholesterol Level 180 mg/dl HDL Cholesterol 59 mg/dl LDL Cholesterol, Calculated 82 mg/dl VLDL Cholesterol, Calculated 39 mg/dl Cholesterol/HDL Ratio 3.1 Vitamin B12 Level 333 pg/mL Folate 5.68 ng/mL Patient Name: GRICELDA PEREZ Unit Number: [id number] Dictated: 12/26/172111 Transcribed: 12/26/172111 GALEN Printed Date/Time: [~ rep prt dt]/[~ rep prt tm] [~ rep ct labl] - [~ rep ct ivnm] [facility] Radiology [place] [address] Dictated: 12/26/172111 Transcribed: 12/26/172111 JRB Printed Date/Time: [~ rep prt dt]/[~ rep prt tm] [~ rep ct labl] - [~ rep ct ivnm] [~ rep ct add3]] CHEST ONE VIEW PORTABLE HISTORY: 72 years-old Female EVALUATE WEAKNESS acute weakness. Patient is reportedly unresponsive COMPARISON: Chest radiograph 12/20/2017 TECHNIQUE: Portable supine AP view of the chest FINDINGS: Endotracheal tube is noted with distal tip overlying the midline approximately 1.4 cm superior to the level of the ramandeep. The heart is enlarged. Calcification of the aorta. Pulmonary vascular congestion. Interval development of interstitial opacities. Right-sided PICC appears unchanged. Alveolar opacities about the left greater than right lung bases. No pneumothorax or large pleural effusion. Lungs are hypoinflated. Multiple vertebroplasty changes with ORIF changes of the left humerus. Demineralized appearance of the bones. Multiple remote rib fractures. IMPRESSION: 1. Endotracheal tube overlies the midline, 1.4 cm superior to the ramandeep. 2. Cardiomegaly with suggested mild pulmonary edema. 3. Alveolar opacities of the left greater than right lung bases suggest atelectasis or pneumonia. The above report was generated using voice recognition software. It may contain grammatical, syntax or spelling errors. Electronically signed by: Alejandro Mitchell M.D. 12/26/2017 9:15 PM Dictated Date/Time: 12/26/2017 9:12 PM The status of this report is Signed. Draft = Not yet reviewed or approved by Radiologist. Signed = Reviewed and approved by Radiologist. <AttendingPhy></AttendingPhy> <FamilyPhy>Marti Vila</FamilyPhy> < PrimaryPhy>HeartMarti johnston</PrimaryPhy> <UnitNumber>[id number]</UnitNumber> < VisitNumber>[id number]</VisitNumber> <PatientName>GRICELDA PEREZ</PatientName> < DateOfBirth>1945</DateOfBirth> <Location>[facility]</Location> <ServiceDate></ServiceDate> <MNE>ESINDI</MNE> <OrderingPhy>Thom Saenz MD</ OrderingPhy> <OrderingPhyMNE>f rep ord dr perez</OrderingPhyMNE> <DictatingPhyMNE> f rep dict dr perez</DictatingPhyMNE> <CCListMNE>f rep ct mne</CCListMNE> < AdmittingPhyMNE>f pt admit dr perez</AdmittingPhyMNE> <AttendingPhyMNE>f pt attend dr perez</AttendingPhyMNE> <ConsultingPhyMNE>f pt consult dr perez</ConsultingPhyMNE> <FamilyPhyMNE>f pt fam dr perez</FamilyPhyMNE> <OtherPhyMNE>f pt other dr perez</OtherPhyMNE> < PrimaryPhyMNE>f pt prim care dr perez</PrimaryPhyMNE> <ReferringPhyMNE>f pt referring dr perez</ReferringPhyMNE> Assessment & Plan 72-year-old female with acute aspiration pneumonia with respiratory failure requiring intubation. Given recent hospitalization, negative MRSA smear, imipenem appropriate therapy pending further culture results. Agree with probable need for bronchoscopy if possible. Will follow.
[2017-12-27] MEDS: FENTANYL CITRATE INJ 50 MCG/1 ML 2 ML VIAL IV PRN ×2 (13:03→20:14)
--- NOTE | 2017-12-27 13:03 | Procedure Note ---
Procedure Note Date of Service Dec 27, 2017. Procedure Note Procedure date: December 27, 2017 Procedure: fiberoptic bronchoscopy Pre-procedure Diagnosis: Hypoxic respiratory failure status post aspiration Post-procedure Diagnosis: same as above Prior to Procedure: Informed Consent: The risks, benefits, indications, potential complications, and alternatives were explained to the patient/family and informed consent obtained. Consent obtained from patient's son by telephone Attending Staff: Tariq Pradhan DO Skin Prep: Not applicable Anesthesia: Versed infusion, 100 mcg fentanyl IV push Indications: Patient has persistent hypoxic respiratory failure in the setting of known aspiration status post probable aspiration event. The identity of the patient was confirmed and a bedside time out was performed. Description of Procedure: Fiberoptic bronchoscopy was performed via endotracheal tube. Bronchioalveolar lavage right middle lobe and left lingular lobe was performed. Findings included: Significant dynamic airway collapse, inflamed airways, no significant purulence noted Complications: None Specimens: Bronchial washings sent for culture and Gram stain, cytology, fungal elements, and AFB stain and culture. Estimated blood loss: Zero
[2017-12-27] MEDS: IMIPENEM/CILASTATIN IV 300 MG in DEXTROSE 5% 100ML 100 ML IV SCH ×2 (14:04→20:14)
--- NOTE | 2017-12-27 16:44 | Hospitalist Progress Note ---
Hospitalist Progress Note Date of Service Dec 27, 2017. Subjective Pt evaluation today including: chart review, lab review, conversation w/ construction consultant (Benzene Operator) Pt remains intubated and sedated, resting. UOP slightly decreased the last shift. Otherwise, remains at 70% FiO2 and requiring PEEP 12. Had 2 BMs today All Other Systems: Reviewed and Negative Objective Vital Signs Date Time Temp Pulse Resp B/P (MAP) Pulse Ox O2 Delivery O2 Flow Rate FiO2 12/27/17 16:00 70 12/27/17 16:00 36.7 58 16 122/60 (80) 91 Mechanical Ventilator 70 12/27/17 15:32 70 12/27/17 13:25 100 12/27/17 13:07 61 16 124/63 (83) 98 Mechanical Ventilator 80 12/27/17 13:02 63 16 128/63 (84) 98 12/27/17 13:00 62 16 95 12/27/17 12:57 63 19 120/67 (84) 90 12/27/17 12:52 61 16 116/55 (75) 93 12/27/17 12:49 60 16 114/71 (85) 93 12/27/17 12:32 61 16 131/64 (86) 91 Mechanical Ventilator 100 12/27/17 12:30 61 16 91 12/27/17 12:02 61 16 138/68 (91) 92 12/27/17 12:00 62 16 92 12/27/17 11:39 80 12/27/17 11:32 61 16 135/67 (89) 94 12/27/17 11:30 61 16 95 12/27/17 11:20 36.6 62 16 119/65 (83) 94 Mechanical Ventilator 80 12/27/17 11:17 80 12/27/17 10:25 80 12/27/17 10:11 62 16 112/56 (74) 91 12/27/17 10:09 62 16 91 12/27/17 10:08 62 16 90 12/27/17 10:01 61 19 80/49 (59) 89 12/27/17 10:00 62 16 90 12/27/17 09:53 60 16 96/51 (66) 91 12/27/17 09:51 60 16 74/41 (52) 90 12/27/17 09:49 61 16 83/46 (58) 91 12/27/17 09:31 59 16 82/49 (60) 93 12/27/17 09:30 62 16 93 12/27/17 09:01 62 16 97/51 (66) 94 12/27/17 09:00 59 16 94 12/27/17 08:31 61 16 106/62 (77) 91 12/27/17 08:30 70 12/27/17 08:30 62 16 91 12/27/17 08:23 70 12/27/17 08:01 60 16 83/51 (62) 91 12/27/17 08:00 80 12/27/17 08:00 Mechanical Ventilator 70 12/27/17 08:00 61 16 91 12/27/17 08:00 36.7 60 16 90/54 (66) 92 Mechanical Ventilator 10.0 70 12/27/17 08:00 Mechanical Ventilator 10.0 80 12/27/17 07:45 59 16 92/55 (67) 92 12/27/17 07:32 60 16 90/54 (66) 92 12/27/17 07:32 80 12/27/17 07:30 59 16 95 12/27/17 06:31 61 16 84/51 (64) 93 12/27/17 06:01 61 16 85/53 (65) 93 12/27/17 05:33 80 12/27/17 05:30 59 18 95/57 (69) 92 12/27/17 05:16 61 16 98/57 (74) 92 12/27/17 05:01 59 16 102/60 (75) 12/27/17 05:00 36.4 12/27/17 04:46 59 16 105/56 (72) 93 12/27/17 04:31 35.2 59 16 112/64 (80) 92 12/27/17 04:17 35.2 58 16 123/64 (84) 92 12/27/17 04:02 35.1 60 16 149/76 (101) 92 12/27/17 04:00 80 12/27/17 04:00 91 80 12/27/17 03:47 35.0 59 16 166/75 (122) 93 12/27/17 03:32 35.0 59 16 169/79 (119) 93 12/27/17 03:17 34.9 58 16 176/79 (132) 93 12/27/17 03:15 34.9 58 16 176/79 (132) 93 12/27/17 03:02 34.8 57 16 180/74 (117) 93 12/27/17 02:47 34.8 57 16 184/82 (123) 93 12/27/17 02:32 34.7 57 16 189/87 (135) 93 12/27/17 02:25 80 12/27/17 02:17 34.5 57 16 183/91 (114) 93 12/27/17 02:02 34.5 55 16 184/99 (106) 94 12/27/17 01:47 34.4 55 16 200/90 (144) 94 12/27/17 01:32 34.3 54 16 193/97 (141) 94 12/27/17 01:17 34.2 52 16 208/93 (128) 93 12/27/17 01:02 33.8 52 16 195/106 (136) 93 12/27/17 00:47 51 16 194/96 (116) 93 12/27/17 00:45 46 16 182/96 (155) 93 12/27/17 00:32 50 16 198/93 (161) 92 12/27/17 00:17 49 16 190/96 (137) 92 12/27/17 00:02 50 16 186/103 (145) 92 12/26/17 23:47 51 16 191/93 (142) 97 12/26/17 23:45 35.0 53 20 170/83 93 Mechanical Ventilator 80 12/26/17 23:30 53 17 170/83 (113) 92 12/26/17 23:25 80 12/26/17 23:03 53 16 152/105 91 12/26/17 23:00 53 16 152/105 91 Mechanical Ventilator 77 12/26/17 22:46 57 16 164/86 92 Mechanical Ventilator 77 12/26/17 22:07 56 16 95 12/26/17 22:06 179/91 12/26/17 22:02 55 16 95 12/26/17 22:01 165/93 12/26/17 21:57 55 18 91 12/26/17 21:52 174/127 12/26/17 21:50 58 17 93 12/26/17 21:46 197/187 12/26/17 21:45 60 18 94 12/26/17 21:43 244/228 12/26/17 21:40 57 17 95 12/26/17 21:38 80 12/26/17 21:35 59 18 96 12/26/17 21:30 0 12/26/17 21:26 94 10.0 80 12/26/17 21:25 0 12/26/17 21:20 5 12/26/17 21:16 166/103 12/26/17 21:15 62 19 90 12/26/17 21:11 163/108 12/26/17 21:10 61 16 91 12/26/17 21:06 168/105 12/26/17 21:05 60 13 94 12/26/17 21:03 173/91 12/26/17 21:01 94 12/26/17 21:01 60 16 166/123 94 12/26/17 21:01 169/93 12/26/17 21:00 60 12/26/17 21:00 60 18 92 12/26/17 20:59 166/123 12/26/17 20:55 63 21 93 12/26/17 20:53 64 12/26/17 20:50 64 16 93 Physical Exam General Appearance: no apparent distress (sedated) Eyes: sclerae normal ENT: + pertinent finding (ET tube in place) Neck: trachea midline Respiratory/Chest: no respiratory distress, no accessory muscle use, + rhonchi (a few upper airway rhonchi) Cardiovascular: regular rate, rhythm, no murmur, + pertinent finding (pitting edema of UEs bilat L>R, PICC line in place RUE) Abdomen: normal bowel sounds, soft (but mildly distended) Extremities: normal capillary refill, + pertinent finding (sarcopenia in legs) Neurologic/Psychiatric: + pertinent finding (sedated,calm) Skin: no rash Laboratory Results Last 24 Hours Test 12/26/17 21:07 12/26/17 21:21 12/26/17 21:28 12/26/17 22:47 Urine Color YELLOW Urine Appearance CLEAR Urine pH 6.0 Urine Specific Harwood 1.022 Urine Protein TRACE Urine Glucose (UA) NEG Urine Ketones NEG Urine Occult Blood NEG Urine Nitrite NEG Urine Bilirubin NEG Urine Urobilinogen NEG Urine Leukocyte Esterase NEG Urine WBC (Auto) 0 /hpf Urine RBC (Auto) 0-4 /hpf Urine Hyaline Casts (Auto) 1-5 /lpf Urine Epithelial Cells (Auto) 0-5 /lpf Urine Bacteria (Auto) NEG White Blood Count 18.79 K/uL Red Blood Count 4.08 M/uL Hemoglobin 12.2 g/dL Hematocrit 40.9 % Mean Corpuscular Volume 100.2 fL Mean Corpuscular Hemoglobin 29.9 pg Mean Corpuscular Hemoglobin Concent 29.8 g/dl Platelet Count 132 K/uL Mean Platelet Volume 13.4 fL Neutrophils (%) (Auto) 91.6 % Lymphocytes (%) (Auto) 3.9 % Monocytes (%) (Auto) 3.5 % Eosinophils (%) (Auto) 0.0 % Basophils (%) (Auto) 0.1 % Neutrophils # (Auto) 17.22 K/uL Lymphocytes # (Auto) 0.73 K/uL Monocytes # (Auto) 0.66 K/uL Eosinophils # (Auto) 0.00 K/uL Basophils # (Auto) 0.01 K/uL RDW Standard Deviation 59.9 fL RDW Coefficient of Variation 16.4 % Immature Granulocyte % (Auto) 0.9 % Immature Granulocyte # (Auto) 0.17 K/uL Platelet Estimate DECREASED Hypochromasia PRESENT Prothrombin Time 10.4 SECONDS Prothromb Time International Ratio 1.0 Activated Partial Thromboplast Time 22.9 SECONDS Partial Thromboplastin Ratio 0.9 Sodium Level 142 mmol/L Potassium Level 5.7 mmol/L Chloride Level 102 mmol/L Carbon Dioxide Level 38 mmol/L Anion Gap 1.0 mmol/L Blood Urea Nitrogen 45 mg/dl Creatinine 1.30 mg/dl Est Creatinine Clear Calc Drug Dose 35.7 ml/min Estimated GFR () 48.1 Estimated GFR (Non- 41.5 BUN/Creatinine Ratio 34.3 Random Glucose 99 mg/dl Calcium Level 9.0 mg/dl Magnesium Level 3.5 mg/dl Total Bilirubin 0.3 mg/dl Direct Bilirubin 0.1 mg/dl Aspartate Amino Transf (AST/SGOT) 31 U/L Alanine Aminotransferase (ALT/SGPT) 23 U/L Alkaline Phosphatase 117 U/L Total Protein 5.9 gm/dl Albumin 3.0 gm/dl Lipase 171 U/L Procalcitonin < 0.05 ng/ml Thyroid Stimulating Hormone (TSH) 1.860 uIu/ml Bedside Lactic Acid Venous 1.81 mmol/L Arterial Blood pH 7.45 Arterial Blood Partial Pressure CO2 47 mmHg Arterial Blood Partial Pressure O2 85 mm/Hg Arterial Blood HCO3 32 mmol/L Arterial Blood Oxygen Saturation 93.3 % Arterial Blood Base Excess 7.6 mEq/L Arterial Blood Gas Delivery 77% FiO2 Leroy Test POS Test 12/27/17 00:10 12/27/17 00:39 12/27/17 04:24 12/27/17 05:34 Troponin I < 0.015 ng/ml Bedside Glucose 146 mg/dl 105 mg/dl White Blood Count 22.30 K/uL Red Blood Count 3.76 M/uL Hemoglobin 11.3 g/dL Hematocrit 36.8 % Mean Corpuscular Volume 97.9 fL Mean Corpuscular Hemoglobin 30.1 pg Mean Corpuscular Hemoglobin Concent 30.7 g/dl Platelet Count 130 K/uL Mean Platelet Volume 12.9 fL Neutrophils (%) (Auto) 88.7 % Lymphocytes (%) (Auto) 8.8 % Monocytes (%) (Auto) 1.8 % Eosinophils (%) (Auto) 0.0 % Basophils (%) (Auto) 0.1 % Neutrophils # (Auto) 19.79 K/uL Lymphocytes # (Auto) 1.96 K/uL Monocytes # (Auto) 0.40 K/uL Eosinophils # (Auto) 0.00 K/uL Basophils # (Auto) 0.02 K/uL RDW Standard Deviation 57.7 fL RDW Coefficient of Variation 16.2 % Immature Granulocyte % (Auto) 0.6 % Immature Granulocyte # (Auto) 0.13 K/uL Red Blood Cell Morphology Unremarkable Sodium Level 141 mmol/L Potassium Level 4.3 mmol/L Chloride Level 100 mmol/L Carbon Dioxide Level 36 mmol/L Anion Gap 5.0 mmol/L Blood Urea Nitrogen 43 mg/dl Creatinine 1.21 mg/dl Est Creatinine Clear Calc Drug Dose 33.3 ml/min Estimated GFR () 52.5 Estimated GFR (Non- 45.3 BUN/Creatinine Ratio 35.7 Random Glucose 112 mg/dl Lactic Acid Level 2.4 mmol/L Calcium Level 8.2 mg/dl Triglycerides Level 194 mg/dl Cholesterol Level 180 mg/dl HDL Cholesterol 59 mg/dl LDL Cholesterol, Calculated 82 mg/dl VLDL Cholesterol, Calculated 39 mg/dl Cholesterol/HDL Ratio 3.1 Vitamin B12 Level 333 pg/mL Folate 5.68 ng/mL Test 12/27/17 11:46 12/27/17 11:55 Bedside Glucose 77 mg/dl Lactic Acid Level 1.6 mmol/L Assessment and Plan This pt is a 72yo female with a h/o HTN, HPL, secondary hyperparathyroidism, CKD III, gout, chronic diastolic CHF, COPD - O2-dependent/chronic hypoxic respiratory failure, bronchiectasis and recurrent pneumonia, depression, severe osteoporosis complicated by multiple fractures, chronic back/hip pain on methadone, and recurrent UTI (U cx in 08/2017 pos. for Ecoli ESBL), constipation , with recent admission for intractable headache and just discharged the day prior to admission. Patient became unresponsive and developed respiratory distress during dinner most likely secondary to an aspiration event s/p intubation in the ER for acute on chronic hypoxic respiratory failure and unresponsiveness. 1. Neuro: patient remains intubated, sedated with fentanyl and versed. No focal deficits noted. CT head negative on admission. Patient with history of chronic pain syndrome on methadone, history of intractable headache which was evaluated by Neurology at previous visit. Was placed on Valium with complete relief of her headaches, and restarted on Lyrica for peripheral neuropathy with relief. Depression - on Cymbalta, Remeron -Continue sedation and pain control with Versed and Fentanyl gtt -Chronic pain -restarted Methadone -restarted Cymbalta at lower dose of 20 due to prolonged QT, continue Lyrica and Baclofen -holding Verapamil for headache prophylaxis after having low BPs -Continue Prednisone 60 mg po daily and taper down as per plan from recent discharge for headaches. Plan to decrease by 10mg/day every two days until back to maintenance dose of 2.5mg. 2. Cardiovascular - patient hemodynamically stable at present. No evidence of ischemia on EKG. Patient with history of HTN, HLP, chronic diastolic CHF. Per prior records patients blood pressure is very labile and highly responsive to PRN agents. She did have some hypotension overnight after receiving hydralazine 10mg per OGT , BPs now improved Troponin negative -Continue Coreg 25mg po BID -continue Hydralazine 10mg po TID -Benzene Operator started her on Crestor 20mg 3. Pulmonary - patient intubated for hypoxic respiratory failure in setting of probably aspiration event. Elevated WBC count at 18.79 but also on steroids, CXR suggestive of PNA vs chemical pneumonitis. History of COPD on home O2. History of bronchiectasis with recurrent PNA. Remains intubated, requiring higher PEEP and FiO2 -Vent management as per Benzene Operator -started on Imipenem for aspiration -Continue Fluticasone/Salmeterol -Continue bronchodilators, can dc Spiriva -Continue Prednisone 60 mg po daily - plan to decrease by 10mg every two days until reach 2.5mg daily -follow CXR while intubated -s/p bronchoscopy today -follow BCxs and sputum cxs 4. GI - stable. patient with history of duodenal bulb ulcer. Had severe constipation last admission which was resolving prior to discharge, but with KUB here still full of stool -NPO except medications -OGT placed -continue Protonix 40 IV BID -Bowel regimen with Colace BID and Miralax PRN 5. - patient with history of CKD Stage III. BUN of 45, Cr of 1.3 on admission and now improved to 1.21. Mildly elevated K at 5.7 on admission and now improved to 4.3. No EKG changes -Repeat PRP in AM -Avoid nephrotoxic agents -Renal dosing to all medications -Continue to monitor BUN, Cr, electrolytes and UOP 6. Heme - H/H stable, patient with history of anemia, macrocytic with MCV of 100.2 B12 and Folate-low end of normal -Continue to monitor 7. ID - concern for aspiration PNA vs chemical pneumonitis -Imipenem as above -History of MRSA and ESBL UTIs, UA negative. Contact precautions -follow CBC 8. Endocrine - history of hyperparathyroidism -Continue calcitonin spray 9. Rheum - history of gout -Continue Allopurinol 100mg po BID 10. F/E/N - heplock. Monitor electrolytes and replete as needed. Continue Thiamine IV for now 11. Ppx - Lovenox for DVT, Protonix at home dose BID 12. Code - Full 13. Dispo -remain in ICU
[2017-12-27] MEDS ORDERED: NURSING VERBAL MED ORDER ONE (18:45)
[2017-12-27] MEDS ORDERED: VANCOMYCIN IV 750 MG in SODIUM CHLORIDE 0.9% 250ML 250 ML IV SCH (20:00)
--- NOTE | 2017-12-27 20:03 | Pharmacy Progress Note ---
Pharmacy Abx Initial Consult Date of Service Dec 27, 2017. Pharmacy Dosing Scope Date of Consult: 12/27/17 Consultation requested by: Dr. Pradhan Pharmacy is consulted to initiate IV Vancomycin dosing therapy, order appropriate labs and adjust drug dose/frequency. Subjective The patient is a 72 year old female admitted on Dec 26, 2017 at 22:49. Objective Height (Feet): 4 Height (Inches): 11.00 Weight (Kilograms): 56.500 Vital Signs (Past 12Hrs) Vital Signs Past 12 Hours Date Time Temp Pulse Resp B/P (MAP) Pulse Ox O2 Delivery O2 Flow Rate FiO2 12/27/17 19:21 60 12/27/17 17:52 60 12/27/17 17:50 36.7 60 16 143/69 (93) 97 Mechanical Ventilator 60 12/27/17 17:32 67 16 143/69 (93) 98 12/27/17 17:30 67 16 97 12/27/17 17:06 70 12/27/17 17:02 59 16 124/63 (83) 95 12/27/17 17:00 59 16 94 12/27/17 16:32 59 16 134/59 (84) 91 12/27/17 16:30 59 16 91 12/27/17 16:02 59 16 122/60 (80) 91 12/27/17 16:00 70 12/27/17 16:00 55 16 91 12/27/17 16:00 36.7 58 16 122/60 (80) 91 Mechanical Ventilator 70 12/27/17 15:32 70 12/27/17 13:25 100 12/27/17 13:07 61 16 124/63 (83) 98 Mechanical Ventilator 80 12/27/17 13:02 63 16 128/63 (84) 98 12/27/17 13:00 62 16 95 12/27/17 12:57 63 19 120/67 (84) 90 12/27/17 12:52 61 16 116/55 (75) 93 12/27/17 12:49 60 16 114/71 (85) 93 12/27/17 12:32 61 16 131/64 (86) 91 Mechanical Ventilator 100 12/27/17 12:30 61 16 91 12/27/17 12:02 61 16 138/68 (91) 92 12/27/17 12:00 62 16 92 12/27/17 11:39 80 12/27/17 11:32 61 16 135/67 (89) 94 12/27/17 11:30 61 16 95 12/27/17 11:20 36.6 62 16 119/65 (83) 94 Mechanical Ventilator 80 12/27/17 11:17 80 12/27/17 10:25 80 12/27/17 10:11 62 16 112/56 (74) 91 12/27/17 10:09 62 16 91 12/27/17 10:08 62 16 90 12/27/17 10:01 61 19 80/49 (59) 89 12/27/17 10:00 62 16 90 12/27/17 09:53 60 16 96/51 (66) 91 12/27/17 09:51 60 16 74/41 (52) 90 12/27/17 09:49 61 16 83/46 (58) 91 12/27/17 09:31 59 16 82/49 (60) 93 12/27/17 09:30 62 16 93 12/27/17 09:01 62 16 97/51 (66) 94 12/27/17 09:00 59 16 94 12/27/17 08:31 61 16 106/62 (77) 91 12/27/17 08:30 70 12/27/17 08:30 62 16 91 12/27/17 08:23 70 12/27/17 08:01 60 16 83/51 (62) 91 12/27/17 08:00 80 12/27/17 08:00 Mechanical Ventilator 70 12/27/17 08:00 61 16 91 12/27/17 08:00 36.7 60 16 90/54 (66) 92 Mechanical Ventilator 10.0 70 12/27/17 08:00 Mechanical Ventilator 10.0 80 12/27/17 07:45 59 16 92/55 (67) 92 Lab Results (24Hrs) Laboratory Tests (24 Hours) Test 12/26/17 21:21 12/27/17 04:24 12/27/17 11:55 Procalcitonin < 0.05 ng/ml (0-0.5) White Blood Count 22.30 K/uL (4.8-10.8) H Red Blood Count 3.76 M/uL (4.2-5.4) L Hemoglobin 11.3 g/dL (12.0-16.0) L Hematocrit 36.8 % (37-47) L Mean Corpuscular Volume 97.9 fL (80-100) Mean Corpuscular Hemoglobin 30.1 pg (25-34) Mean Corpuscular Hemoglobin Concent 30.7 g/dl (32-36) L Platelet Count 130 K/uL (130-400) Mean Platelet Volume 12.9 fL (7.4-10.4) H Neutrophils (%) (Auto) 88.7 % Lymphocytes (%) (Auto) 8.8 % Monocytes (%) (Auto) 1.8 % Eosinophils (%) (Auto) 0.0 % Basophils (%) (Auto) 0.1 % Neutrophils # (Auto) 19.79 K/uL (1.4-6.5) H Lymphocytes # (Auto) 1.96 K/uL (1.2-3.4) Monocytes # (Auto) 0.40 K/uL (0.11-0.59) Eosinophils # (Auto) 0.00 K/uL (0-0.5) Basophils # (Auto) 0.02 K/uL (0-0.2) Lactic Acid Level 1.6 mmol/L (0.4-2.0) Micro Results Date/Time Source Procedure Growth Status 12/27/17 19:12 Blood Blood Culture Pending Received 12/27/17 18:59 Blood Blood Culture Pending Received 12/26/17 21:21 Blood Blood Culture Pending Received 12/26/17 00:00 Blood Blood Culture - Preliminary Gram Positive Cocci Resulted 12/26/17 22:30 Nasal MRSA DNA Surveillance Screen - Final Specimen Negative for MRSA by DNA Probe Complete 12/27/17 13:00 Bronchial Washings Right Middle Lobe Fungal Smear Pending Received 12/27/17 13:00 Bronchial Washings Right Middle Lobe Fungal Culture Pending Received 12/27/17 13:00 Bronchial Washings Right Middle Lobe Acid Fast Stain Pending Received 12/27/17 13:00 Bronchial Washings Right Middle Lobe Mycobacterial Culture Pending Received 12/27/17 13:00 Bronchial Washings Right Middle Lobe Gram Stain Pending Received 12/27/17 13:00 Bronchial Washings Right Middle Lobe Bronchoalveolar Lavage Culture Pending Received 12/27/17 13:00 Bronchial Washings Left Lingula Gram Stain Pending Received 12/27/17 13:00 Bronchial Washings Left Lingula Bronchoalveolar Lavage Culture Pending Received 12/26/17 21:07 Urine,Catheterized Urine Culture - Preliminary PIN-POINT GROWTH PRESENT, REINCUBATING. Resulted Risk Factors for Resistance * Resident in a [facility] or extended-care facility * Hospitalization for 48 hours or more within the past 90 days * Immunocompromised (chronic steroid therapy) * History of infection with a multidrug-resistant organism: recurrent UTI, ESBL E. coli, + Proteus UTI, VRE UTI x many, MRSA skin/skin structure Assessment & Plan Assessment 72 year old female, admitted to Intensive care unit with respiratory failure requiring mechanical ventilation secondary to aspiration. Patient now with single reported blood culture preliminarily with gram positive cocci and second blood culture pending. Repeat blood cultures now performed. Patient received IV Zosyn, Primaxin and Vancomycin in the Emergency Department last evening. Upon admission, regimen was pared down to single agent Primaxin. Plan IV Vancomycin reinitiated due to positive blood culture report for gram positive cocci. Patient received a 26 mg/kg IV loading dose of IV Vancomycin last evening concluding infusion approximately at midnight. Given this patient' s projected half life of approximately 20 hours, this patient still has IV Vancomycin on board approximating the expected trough range of 15-20 mcg/ml, thus will initiate maintenance dosing at this time. Vancomycin IV * Loading dose: 1500 mg (26 mg/kg) given in the Emergency Department on 12/26 ~ 2200 hours * Maintenance dose: 750 mg IV (13.3 mg/kg) every 22 hours * Goal trough level for bacteremia: 15 to 20 mcg/mL * Trough level ordered for 12/29/17 prior to the 1600 hours dose * A less than traditional dose and/or extended dosing interval has/have been selected due to likelihood of drug accumulation in patient with h/o CKD. Pharmacy will continue to follow and will adjust dose/frequency as necessary. Thank you.
[2017-12-27] MEDS: ENOXAPARIN 30 MG/0.3 ML SYR SQ SCH (21:05)
[2017-12-27] MEDS: DOCUSATE SODIUM 100 MG/10 ML UDC PO SCH (21:05)
[2017-12-27] MEDS: ROSUVASTATIN CALCIUM 20 MG TAB PO SCH (21:06)
[2017-12-28] VITALS (45 sets, daily range): BP systolic 112–181; BP diastolic 50–93; PULSE 56–97; TEMP 36.4–36.6; O2SAT 88–97
[2017-12-28] MEDS: MIDAZOLAM 125MG/250ML D5W 250 ML IV PRN (01:34)
[2017-12-28] MEDS: IMIPENEM/CILASTATIN IV 300 MG in DEXTROSE 5% 100ML 100 ML IV SCH ×4 (01:34→20:00)
[2017-12-28 04:28] LABS: HEMOGLOBIN 10.3 g/dL (12.0-16.0); MEAN CELL VOLUME 93.4 fL (80-100); MEAN CORPUSCULAR HGB CONC 33.2 g/dl (32-36); MEAN PLATELET VOLUME 12.9 fL (7.4-10.4); NUCLEATED RED BLOOD CELL ABS 0.02 K/uL (0-0); PLATELET COUNT 117 K/uL (130-400); RED CELL DISTRIBUTION WIDTH CV 16.5 % (11.5-14.5); RED CELL DISTRIBUTION WIDTH SD 55.8 fL (36.4-46.3); WHITE BLOOD COUNT 23.28 K/uL (4.8-10.8)
[2017-12-28 04:31] LABS: CALCIUM 7.6 mg/dl (8.5-10.1); CREATININE 1.22 mg/dl (0.60-1.20)
[2017-12-28 04:46] LABS: BASO ABS # 0.01 K/uL (0-0.2); IG# 0.21 K/uL (0.00-0.02); LYMPH % 5.1 %; LYMPH ABS # 1.19 K/uL (1.2-3.4); MONO ABS # 0.71 K/uL (0.11-0.59); NEUT ABS # 21.16 K/uL (1.4-6.5)
[2017-12-28] MEDS: FENTANYL CITRATE INJ 50 MCG/1 ML 2 ML VIAL IV PRN (04:59)
[2017-12-28] MEDS: ALBUTEROL HFA 8 GM INHALER INH SCH (07:13)
[2017-12-28] MEDS: IPRATROPIUM BROMIDE HFA INHALER INH SCH (07:13)
[2017-12-28] MEDS: FLUTICASONE/SALMETEROL 250/50 (ADVAIR) 14 PUFF/1 INHALER INH SCH ×2 (07:45→21:00)
[2017-12-28] MEDS: CALCITONIN SALMON NA 200 IU/AC 3.7 ML BTL NAE SCH (07:52)
[2017-12-28] MEDS: PANTOprazole INJ 40 MG in SYRINGE 0 ML IV SCH ×2 (07:52→21:00)
[2017-12-28] MEDS: THIAMINE HCL INJ 100 MG in SYRINGE 9 ML IV SCH (07:52)
[2017-12-28] MEDS: ALLOPURINOL 100 MG TAB PO SCH ×2 (07:52→21:37)
[2017-12-28] MEDS: BACLOFEN 10 MG TAB PO SCH ×3 (07:53→21:00)
[2017-12-28] MEDS: HydrALAZINE 10 MG TAB PO SCH ×3 (07:53→21:36)
[2017-12-28] MEDS: DOCUSATE SODIUM 100 MG/10 ML UDC PO SCH ×2 (07:54→21:36)
[2017-12-28] MEDS: PREGABALIN 50 MG CAP PO SCH ×2 (07:54→21:40)
[2017-12-28] MEDS: METHADONE HCL 10 MG TAB PO SCH ×4 (07:54→21:00)
[2017-12-28] MEDS: DULOXETINE HCL 20 MG CAP PO SCH (07:54)
[2017-12-28] MEDS: CARVEDILOL 25 MG TAB PO SCH ×2 (07:54→21:38)
--- NOTE | 2017-12-28 08:36 | DIAGNOSTIC IMAGING REPORT ---
CHEST ONE VIEW PORTABLE CLINICAL HISTORY: intubation tube position COMPARISON STUDY: 12/26/2017 FINDINGS: Endotracheal tube 1 cm below the ramandeep. Slight improvement in aeration left lung base. Improved prominence of pulmonary vasculature. Left-sided rib fractures again noted. Prior operative changes to the left humerus. IMPRESSION: 1. Endotracheal tube 1 cm above the ramandeep. 2. Improved aeration left base. 3. Study is otherwise similar. The above report was generated using voice recognition software. It may contain grammatical, syntax or spelling errors. Electronically signed by: Klever June M.D. 12/28/2017 8:35 AM Dictated Date/Time: 12/28/2017 8:34 AM
--- NOTE | 2017-12-28 09:21 | Palliative Care Consultation ---
Consultation Date of Consultation: Dec 28, 2017. Requesting Physician: Dr. Pradhan Attending Physician: Dr. Rowe Reason for Consultation: Goals of care History of Present Illness This 72 year old female patient with PMH HTN, HPL, secondary hyperparathyroidism , CKD III, gout, chronic diastolic CHF, COPD - O2-dependent/chronic hypoxic respiratory failure, bronchiectasis and recurrent pneumonia, depression, severe osteoporosis complicated by multiple fractures, chronic back/hip pain on methadone, and recurrent UTI (U cx in 08/2017 pos. for Ecoli ESBL), constipation , with recent admission for intractable headache and just discharged the day prior to admission. Patient became unresponsive and developed respiratory distress during dinner most likely secondary to an aspiration event s/p intubation in the ER for acute on chronic hypoxic respiratory failure and unresponsiveness. She typically lives at [facility] and has frequent readmissions for the above chronic problems. Thus far, patient has wished to remain full code, yet refuses PEG tube and chooses to comfort feed with permissive aspiration. Palliative care is consulted to establish goals of care. Patient is intubated in ICU. She is unable to participate in conversation. Had lengthy discussion over phone with patient's son, Jonnathan Sommers, on phone. He is her POA and lives in [place]. He last saw his mother in September 2016 when he was here visiting-- the will/POA was completed at that time. Jonnathan has had many conversations with his mother about goals of care, quality of life, wishes, etc. See below. Past Medical/Surgical History Medical History: HTN Hyperlipidemia Hyperparathyroidism CKD III Goug Chronic diastolic CHF COPD - 2L home O2 Chronic hypoxic respiratory failure Bronchiectasis Recurrent PNA Depression Osteoporosis with multiple prior fractures Chronic back/hip pain on Methadone Recurrent ESBL (08/2017 ESBL E.coli) PICC line placement in RUE Anemia Cholelithiasis Duodenal bulb ulcer DVT Surgical Problems: (1) H/O total hip arthroplasty (2) History of kyphoplasty (3) History of kyphoplasty (4) left renal artery stent placement Social History Smoking Status: Former Smoker History of Alcohol Use: No Drug Use: none Marital Status: Housing Status: long-term Occupation Status: disabled Review of Systems unable to obtain due to intubation Allergies Coded Allergies: Squash (Verified Allergy, Unknown, Zucchini, 12/26/17) Azithromycin (Verified Adverse Reaction, Mild, nausea, 12/26/17) Levofloxacin (Verified Adverse Reaction, Mild, nausea, 12/26/17) Medications Current Inpatient Medications Medications (Trade) Dose Ordered Sig/Estephania Route Start Time Stop Time Status Last Admin Dose Admin Acetaminophen (Tylenol Tab) 650 mg Q4H PRN PO 12/26/17 22:45 01/25/18 22:44 Miscellaneous Information (Icu Protocol For Hyperglycemia) 1 ea PRN PRN N/A 12/26/17 22:45 12/28/17 22:44 Midazolam HCl 250 ml @ 0 mls/hr Q0M PRN IV 12/26/17 22:35 01/25/18 22:34 12/28/17 01:34 8 MLS/HR Allopurinol (Zyloprim Tab) 100 mg BID PO 12/27/17 09:00 01/26/18 08:59 12/28/17 07:52 100 MG Calcitonin [place] (Fortical Nasal [place]) 1 spray QAM ERIC 12/27/17 09:00 01/26/18 08:59 12/28/17 07:52 1 SPRAY Carvedilol (Coreg Tab) 25 mg BID PO 12/27/17 09:00 01/26/18 08:59 12/28/17 07:54 25 MG Salmeterol Xinafoate/ Fluticasone (Advair Diskus 250/50 Inh) 1 puff BID INH 12/27/17 09:00 01/26/18 08:59 Albuterol Sulfate (Ventolin 0.083% 2.5MG/3ML Neb) 2.5 mg Q4H PRN INH 12/26/17 23:45 01/25/18 23:44 Polyethylene (Miralax Powder Packet) 17 gm BID PRN PO 12/26/17 23:45 01/25/18 23:14 Thiamine HCl 100 mg/Syringe 10 ml @ 2 mls/min QAM IV 12/27/17 09:00 01/26/18 08:59 12/28/17 07:52 2 MLS/MIN Pantoprazole Sodium 40 mg/ Syringe 10 ml @ 5 mls/min BID@0900,2100 IV 12/27/17 09:00 01/26/18 08:59 12/28/17 07:52 5 MLS/MIN Hydralazine HCl (Apresoline Tab) 10 mg TID PO 12/27/17 09:00 01/26/18 08:59 12/28/17 07:53 10 MG Hydralazine HCl (HydrALAZINE INJ) 10 mg Q4 PRN IV. 12/27/17 02:30 01/26/18 02:29 Ipratropium [place] (Atrovent Hfa Inhaler) 4 puffs QIDR INH 12/27/17 08:00 01/26/18 07:59 12/28/17 07:13 4 PUFFS Albuterol (Ventolin Hfa Inhaler) 4 puffs QIDR INH 12/27/17 08:00 01/26/18 07:59 12/28/17 07:13 4 PUFFS Imipenem/ Cilastatin Sodium (Consult) 1 ea UD PRN N/A 12/27/17 08:15 01/26/18 08:14 Methadone HCl (Dolophine Tab) 30 mg TID PO 12/27/17 09:00 01/10/18 08:59 12/28/17 07:54 30 MG Pregabalin (Lyrica Cap) 50 mg BID PO 12/27/17 09:00 01/26/18 08:59 12/28/17 07:54 50 MG Duloxetine HCl (Cymbalta Cap) 20 mg QAM PO 12/27/17 09:00 01/26/18 08:59 12/28/17 07:54 20 MG Baclofen (Lioresal Tab) 5 mg TID PO 12/27/17 09:00 01/26/18 08:59 12/28/17 07:53 5 MG Fentanyl Citrate (Fentanyl Inj) 100 mcg Q2H PRN IV 12/27/17 09:00 01/10/18 08:59 12/28/17 04:59 100 MCG Rosuvastatin Calcium (Crestor Tab) 20 mg QPM PO 12/27/17 21:00 01/26/18 20:59 12/27/17 21:06 20 MG Parenteral Electrolyte Solution 1,000 ml @ 75 mls/hr [id number] IV 12/27/17 09:15 01/26/18 09:14 12/27/17 22:14 75 MLS/HR Enoxaparin Sodium (Lovenox Inj) 30 mg HS SQ 12/27/17 21:00 01/26/18 20:59 12/27/17 21:05 30 MG Prednisone (PredniSONE TAB) 50 mg Taper QAM PO 12/28/17 09:00 01/07/18 08:59 12/28/17 07:55 50 MG Prednisone (PredniSONE TAB) 5 mg QAM PO 01/07/18 09:00 01/08/18 09:01 Prednisone (PredniSONE TAB) 2.5 mg QAM PO 01/09/18 09:00 02/08/18 08:59 Imipenem/ Cilastatin Sodium 300 mg/Dextrose 106 ml @ 106 mls/hr Q6H IV 12/27/17 14:00 01/03/18 07:59 12/28/17 07:52 106 MLS/HR Docusate Sodium (coLACE SYRUP) 100 mg BID PO 12/27/17 21:00 01/25/18 23:14 12/28/17 07:54 100 MG Vancomycin HCl (Consult) 1 ea UD PRN N/A 12/27/17 19:00 01/10/18 18:59 Vancomycin HCl 750 mg/Sodium Chloride 265 ml @ 125 mls/hr Q22H IV 12/27/17 20:00 01/09/18 21:59 12/27/17 20:14 125 MLS/HR Heparin Sodium (Porcine) (Heparin 10 Unit/ ml 5 ml Flush) 5 ml PRN PRN FLUSH 12/27/17 23:15 01/26/18 23:14 Physical Exam Date Time Temp Pulse Resp B/P (MAP) Pulse Ox O2 Delivery O2 Flow Rate FiO2 12/28/17 08:00 40 12/28/17 08:00 Mechanical Ventilator 40 12/28/17 08:00 36.4 68 16 147/50 (82) 96 Mechanical Ventilator 40 12/28/17 07:13 50 12/28/17 06:02 56 16 136/63 (87) 95 12/28/17 05:33 58 16 140/63 (88) 97 12/28/17 05:11 60 12/28/17 05:01 69 16 181/67 (95) 97 12/28/17 04:01 56 16 130/67 (87) 94 12/28/17 04:00 36.4 12/28/17 04:00 60 12/28/17 04:00 94 Mechanical Ventilator 50 12/28/17 03:01 56 16 122/68 (85) 94 12/28/17 02:05 60 12/28/17 02:01 66 16 122/74 (85) 92 12/28/17 01:01 68 16 132/71 (92) 95 12/28/17 00:01 61 16 121/69 (82) 92 12/27/17 23:59 36.2 12/27/17 23:59 92 Mechanical Ventilator 50 12/27/17 23:59 60 12/27/17 23:01 61 16 120/69 (82) 91 12/27/17 22:11 60 12/27/17 22:01 62 16 113/63 (90) 97 12/27/17 21:01 63 16 125/57 (94) 96 12/27/17 20:22 68 16 134/56 (90) 98 12/27/17 20:00 97 Mechanical Ventilator 60 12/27/17 20:00 60 12/27/17 20:00 36.3 12/27/17 19:21 60 12/27/17 19:02 60 16 136/63 (78) 92 12/27/17 17:52 60 12/27/17 17:50 36.7 60 16 143/69 (93) 97 Mechanical Ventilator 60 12/27/17 17:32 67 16 143/69 (93) 98 12/27/17 17:30 67 16 97 12/27/17 17:06 70 12/27/17 17:02 59 16 124/63 (83) 95 12/27/17 17:00 59 16 94 12/27/17 16:32 59 16 134/59 (84) 91 12/27/17 16:30 59 16 91 12/27/17 16:02 59 16 122/60 (80) 91 12/27/17 16:00 70 12/27/17 16:00 55 16 91 12/27/17 16:00 36.7 58 16 122/60 (80) 91 Mechanical Ventilator 70 12/27/17 15:32 70 12/27/17 13:25 100 12/27/17 13:07 61 16 124/63 (83) 98 Mechanical Ventilator 80 12/27/17 13:02 63 16 128/63 (84) 98 12/27/17 13:00 62 16 95 12/27/17 12:57 63 19 120/67 (84) 90 8/1/18 12:52 61 16 116/55 (75) 93 12/27/17 12:49 60 16 114/71 (85) 93 12/27/17 12:32 61 16 131/64 (86) 91 Mechanical Ventilator 100 12/27/17 12:30 61 16 91 12/27/17 12:02 61 16 138/68 (91) 92 12/27/17 12:00 62 16 92 12/27/17 11:39 80 12/27/17 11:32 61 16 135/67 (89) 94 12/27/17 11:30 61 16 95 12/27/17 11:20 36.6 62 16 119/65 (83) 94 Mechanical Ventilator 80 12/27/17 11:17 80 12/27/17 10:25 80 12/27/17 10:11 62 16 112/56 (74) 91 12/27/17 10:09 62 16 91 12/27/17 10:08 62 16 90 12/27/17 10:01 61 19 80/49 (59) 89 12/27/17 10:00 62 16 90 12/27/17 09:53 60 16 96/51 (66) 91 12/27/17 09:51 60 16 74/41 (52) 90 12/27/17 09:49 61 16 83/46 (58) 91 12/27/17 09:31 59 16 82/49 (60) 93 12/27/17 09:30 62 16 93 General Appearance: no apparent distress, + pertinent finding (frail, chronically ill appearing) ENT: + pertinent finding (ETT present) Neck: no JVD Respiratory: no respiratory distress, no accessory muscle use, + pertinent finding (on mechanical ventilator) Cardiovascular: regular rate, rhythm, + normal peripheral pulses Abdomen: normal bowel sounds, soft Neurologic/Psychiatric: + pertinent finding (awake, opening eyes, following some simple commands, reaching for ETT) Laboratory Results Last 24 Hours Test 12/27/17 11:46 12/27/17 11:55 12/27/17 17:01 12/27/17 23:30 Bedside Glucose 77 mg/dl 101 mg/dl 98 mg/dl Lactic Acid Level 1.6 mmol/L Test 12/28/17 04:05 12/28/17 05:11 8/2/18 08:49 White Blood Count 23.28 K/uL Red Blood Count 3.32 M/uL Hemoglobin 10.3 g/dL Hematocrit 31.0 % Mean Corpuscular Volume 93.4 fL Mean Corpuscular Hemoglobin 31.0 pg Mean Corpuscular Hemoglobin Concent 33.2 g/dl Platelet Count 117 K/uL Mean Platelet Volume 12.9 fL Neutrophils (%) (Auto) 91.0 % Lymphocytes (%) (Auto) 5.1 % Monocytes (%) (Auto) 3.0 % Eosinophils (%) (Auto) 0.0 % Basophils (%) (Auto) 0.0 % Neutrophils # (Auto) 21.16 K/uL Lymphocytes # (Auto) 1.19 K/uL Monocytes # (Auto) 0.71 K/uL Eosinophils # (Auto) 0.00 K/uL Basophils # (Auto) 0.01 K/uL RDW Standard Deviation 55.8 fL RDW Coefficient of Variation 16.5 % Immature Granulocyte % (Auto) 0.9 % Immature Granulocyte # (Auto) 0.21 K/uL Nucleated RBC Absolute Count (auto) 0.02 K/uL Nucleated Red Blood Cells % 0.1 % Red Blood Cell Morphology Unremarkable Sodium Level 139 mmol/L Potassium Level 4.0 mmol/L Chloride Level 102 mmol/L Carbon Dioxide Level 32 mmol/L Anion Gap 5.0 mmol/L Blood Urea Nitrogen 38 mg/dl Creatinine 1.22 mg/dl Est Creatinine Clear Calc Drug Dose 32.9 ml/min Estimated GFR () 52.0 Estimated GFR (Non- 44.8 BUN/Creatinine Ratio 31.5 Random Glucose 88 mg/dl Calcium Level 7.6 mg/dl Bedside Glucose 96 mg/dl Blood Gas Sample Site L Radial Bedside Blood Gas pH (LAB) 7.46 Bedside Blood Gas pCO2 (LAB) 47 mmHg Bedside Blood Gas pO2 (LAB) 63 mmHg Bedside Blood Gas HCO3 (LAB) 34 meq/L Bedside Blood Gas Total CO2 35 mEq/l Bedside Blood Gas Base Excess (LAB) 10.0 meq/L Bedside Blood Gas O2 Saturation 93.0 % Leroy Test Pass Oxygen Delivery Device Ventilator Bedside FiO2 40 % Blood Gas PEEP 12 Assessment & Plan Problem list: Aspiration pneumonitis, chronic aspiration Hypoxic respiratory failure, intubated Hx COPD on home oxygen Goals of care Palliative care recs: -Discussed at length with patient's son/POA from [place], Jonnathan Sommers. Jonnathan states that his mother still feels she has good quality of life. He states that she enjoys being able to hold her smartphone and look at it and watch Netflix. If she were unable to do these things any more, the patient would at that time probably want to be DNR and be made comfort measures. However , he does not feel she has been to that point as of yet. -Jonnathan did state that he believes code status should be discussed with the patient once she is able to participate in conversation. He is aware that if his mother is unable to make decisions for herself, it will be his responsibility as stated on her living will/POA. -Patient's will states that at end-stage, terminal condition, she would NOT want any aggressive medical care and does not want tube feedings. -Patient has care alert plan for known esophageal dysmotility which is on file. -Continue current care for now, will reevaluate daily. Thank you kindly for this consult. I will follow. Total time spent 70 minutes with >50% of time spent on phone with patient's family discussing her condition and goals of care as well as collaborating with ICU physician and staff to coordinate care.
--- NOTE | 2017-12-28 09:58 | Critical Care Progress Note ---
Critical Care Progress Note Date of Service Dec 28, 2017. ICU Day ICU Day Number: [address] Pradhan Subjective No overnight events, following complex commands, RASS score -1 Objective General: Alert. Following simple commands Skin: Warm, dry, Head: Atraumatic Ears, nose, mouth and throat: Endotracheal tube present Cardiovascular: Normal peripheral perfusion Respiratory: Coarse sounds improved compared to yesterday Gastrointestinal: Non distended Musculoskeletal: No deformity Assessment & Plan PLAN: Neuro: Chronic pain -Methadone use: 30 mg 3 times daily -Cymbalta: 30 mg every morning -Lyrica: 50 mg twice daily -Baclofen: 10 mg 3 times daily -Valium 5 mg every 5 hours as needed 14 days Chronic cephalgia -60 MG PO QAM tapering schedule -Pain clinic appointment was previously scheduled for December 26, 2017 -Verapamil headache prophylaxis ER 120 mg every morning Sedation: Versed infusion Analgesia: Fentanyl infusion Polypharmacy: Considering creatinine clearance to be 33 -Restart daily methadone (no dose change), Cymbalta (decreasing dose to 20 mg), Lyrica (no dose change), baclofen (decreasing dose to 5 mg 3 times daily) at maintenance dose -Discontinuing Remeron, this also prolonged QTC -Discontinuing Valium at this time -Prednisone 60 mg today then taper by decreasing by 10 mg every 2 days to baseline dose -Holding verapamil while unable to swallow -Not continuing sumatriptan as needed headache at this time Goal RASS -1 -Decreasing Versed infusion -Sedation vacation -Convert fentanyl infusion to as needed bolus History right eye vitreous hemorrhage -Seen by ophthalmology on last admission -Per discharge instructions holding Plavix will ultimately need follow -up with retinal specialist Resp: Acute hypoxic respiratory failure secondary to aspiration: Improving -Following complex commands, rapid shallow breathing index less than 50, P to F ratio 150: This is low however the patient likely has underlying structural lung disease and I do not know what her baseline oxygen saturations may be, -Imipenem for gram-negative and anaerobic coverage for possible pneumonia secondary to aspiration and history of ESBL -Extubated to noninvasive mechanical ventilation Oxygen dependent COPD and emphysema -Consistent with gold stage IV CV: History hypertension, history renal artery stenosis status post stenting -Per records July 2017 patient was on Coreg 25 mg twice daily, nifedipine 30 mg XR once daily and hydralazine 10 mg p.o. 3 times daily and Lasix -Not continuing hydralazine at this time History chronic diastolic heart failure -Continue Coreg History hyperlipidemia -July 28, 2016 LDL 141 -Continue Coreg -Adding statin, unable to find contraindication in medical records at this time -20 mg Crestor -Fasting lipid profile in a.m.lipi Prolonged QTC -Likely medication induced -Continue to monitor closely Fluids/Renal: Chronic kidney disease stage III -Estimated GFR approximately 33 -[place] Normosol at 75 ML's per hour Lactic acidosis: Resolved ID: Aspiration pneumonia -Continue single agent coverage with imipenem -Patient does have Pseudomonas risk however based on hospital antibiogram double coverage not indicated History recurrent UTI -Given fosfomycin on previous admission History ESBL E. coli in urine culture August 2017 -Single blood culture positive for gram-positive cocci -Urine culture: Intubating microscopic growth -Reinstituted vancomycin at this time secondary to positive blood culture -Reviewed infectious disease consultation GI/Nutrition: N.p.o. Protonix for prophylaxis -Discontinue Zofran secondary to QTC concerns Heme: History macrocytic anemia -B12 and folate pending -When able to take p.o. would reinstitute daily multivitamin folic acid Endocrine: History hyperparathyroidism -Continue calcitonin Vascular access: Peripheral IVs Code Status: Status full, . I have reviewed a power of hat blocking operator and advanced directive dated October 12, 2016, the patient designates her son Jonnathan Sommers is POA and indicates that she would not want aggressive medical care in the setting of end-stage medical condition or permanent unconsciousness. She also indicates that she would not want tube feedings or hydration given if she is in an end-stage medical condition. Patient was discussed on multidisciplinary rounds Patient has been evaluated by speech and language therapy multiple times. It is been well established that the patient is at high risk for aspiration. It is also well documented that the patient does not follow medical advice with regards to texture and conditions to prevent aspiration. She has had known esophageal dysfunction since 2013. In review of notes and given recurrent pneumonias I am concerned the patient has significant chronic swallowing difficulties that have likely contributed to numerous clinical pneumonias. This is approaching an end-stage medical condition. Without continued intervention and following recommendations the patient will most assuredly continue to aspirate and continue to have pulmonary infections in the setting of significant COPD and oxygen dependent emphysema that with a reasonable degree of certainty would likely lead to the patient's . In review of the records the patient's capacity appears to have been questioned intermittently. I am concerned regarding the patient's appreciation of the severity of her diseases and the ability to understand cause and effect relationship regarding end-stage oxygen dependent COPD and aspiration. Given the clinical severity and frequent exacerbations of respiratory failure when the patient becomes more alert it would be prudent to have a more complete evaluation of the patient's capacity and further discussion with palliative care given the findings of her advanced healthcare directive. I have personally spent 80 minutes of critical care time in the direct management of this patient. This is a life/limb threatening event. This includes time spent evaluating patient, direct bedside care, chart review, placing orders, interpretation of diagnostic studies, discussion with consultants, patient, and/or family members regarding treatment decisions, as well as other required patient management activities. This time is exclusive of all separately billable procedures, and teaching time and separate from and in addition to any other critical care service time. Consults & Procedures Consultants: Infectious disease: Cherelle Data Medications: Current Inpatient Medications Medications (Trade) Dose Ordered Sig/Estephania Route Start Time Stop Time Status Last Admin Dose Admin Acetaminophen (Tylenol Tab) 650 mg Q4H PRN PO 12/26/17 22:45 01/25/18 22:44 Miscellaneous Information (Icu Protocol For Hyperglycemia) 1 ea PRN PRN N/A 12/26/17 22:45 12/28/17 22:44 Midazolam HCl 250 ml @ 0 mls/hr Q0M PRN IV 12/26/17 22:35 01/25/18 22:34 12/28/17 01:34 8 MLS/HR Allopurinol (Zyloprim Tab) 100 mg BID PO 12/27/17 09:00 01/26/18 08:59 12/28/17 07:52 100 MG Calcitonin [place] (Fortical Nasal [place]) 1 spray QAM ERIC 12/27/17 09:00 01/26/18 08:59 12/28/17 07:52 1 SPRAY Carvedilol (Coreg Tab) 25 mg BID PO 12/27/17 09:00 01/26/18 08:59 12/28/17 07:54 25 MG Salmeterol Xinafoate/ Fluticasone (Advair Diskus 250/50 Inh) 1 puff BID INH 12/27/17 09:00 01/26/18 08:59 Albuterol Sulfate (Ventolin 0.083% 2.5MG/3ML Neb) 2.5 mg Q4H PRN INH 12/26/17 23:45 01/25/18 23:44 Polyethylene (Miralax Powder Packet) 17 gm BID PRN PO 12/26/17 23:45 01/25/18 23:14 Thiamine HCl 100 mg/Syringe 10 ml @ 2 mls/min QAM IV 12/27/17 09:00 01/26/18 08:59 12/28/17 07:52 2 MLS/MIN Pantoprazole Sodium 40 mg/ Syringe 10 ml @ 5 mls/min BID@0900,2100 IV 12/27/17 09:00 01/26/18 08:59 12/28/17 07:52 5 MLS/MIN Hydralazine HCl (Apresoline Tab) 10 mg TID PO 12/27/17 09:00 01/26/18 08:59 12/28/17 07:53 10 MG Hydralazine HCl (HydrALAZINE INJ) 10 mg Q4 PRN IV. 12/27/17 02:30 01/26/18 02:29 Ipratropium [place] (Atrovent Hfa Inhaler) 4 puffs QIDR INH 12/27/17 08:00 01/26/18 07:59 12/28/17 07:13 4 PUFFS Albuterol (Ventolin Hfa Inhaler) 4 puffs QIDR INH 12/27/17 08:00 01/26/18 07:59 12/28/17 07:13 4 PUFFS Imipenem/ Cilastatin Sodium (Consult) 1 ea UD PRN N/A 12/27/17 08:15 01/26/18 08:14 Methadone HCl (Dolophine Tab) 30 mg TID PO 12/27/17 09:00 01/10/18 08:59 12/28/17 07:54 30 MG Pregabalin (Lyrica Cap) 50 mg BID PO 12/27/17 09:00 01/26/18 08:59 12/28/17 07:54 50 MG Duloxetine HCl (Cymbalta Cap) 20 mg QAM PO 12/27/17 09:00 01/26/18 08:59 12/28/17 07:54 20 MG Baclofen (Lioresal Tab) 5 mg TID PO 12/27/17 09:00 01/26/18 08:59 12/28/17 07:53 5 MG Fentanyl Citrate (Fentanyl Inj) 100 mcg Q2H PRN IV 12/27/17 09:00 01/10/18 08:59 12/28/17 04:59 100 MCG Rosuvastatin Calcium (Crestor Tab) 20 mg QPM PO 12/27/17 21:00 01/26/18 20:59 12/27/17 21:06 20 MG Parenteral Electrolyte Solution 1,000 ml @ 75 mls/hr [id number] IV 12/27/17 09:15 01/26/18 09:14 12/27/17 22:14 75 MLS/HR Enoxaparin Sodium (Lovenox Inj) 30 mg HS SQ 12/27/17 21:00 01/26/18 20:59 12/27/17 21:05 30 MG Prednisone (PredniSONE TAB) 50 mg Taper QAM PO 12/28/17 09:00 01/07/18 08:59 12/28/17 07:55 50 MG Prednisone (PredniSONE TAB) 5 mg QAM PO 01/07/18 09:00 01/08/18 09:01 Prednisone (PredniSONE TAB) 2.5 mg QAM PO 01/09/18 09:00 02/08/18 08:59 Imipenem/ Cilastatin Sodium 300 mg/Dextrose 106 ml @ 106 mls/hr Q6H IV 12/27/17 14:00 01/03/18 07:59 12/28/17 07:52 106 MLS/HR Docusate Sodium (coLACE SYRUP) 100 mg BID PO 12/27/17 21:00 01/25/18 23:14 12/28/17 07:54 100 MG Vancomycin HCl (Consult) 1 ea UD PRN N/A 12/27/17 19:00 01/10/18 18:59 Vancomycin HCl 750 mg/Sodium Chloride 265 ml @ 125 mls/hr Q22H IV 12/27/17 20:00 01/09/18 21:59 12/27/17 20:14 125 MLS/HR Heparin Sodium (Porcine) (Heparin 10 Unit/ ml 5 ml Flush) 5 ml PRN PRN FLUSH 12/27/17 23:15 01/26/18 23:14 Vital Signs: Date Time Temp Pulse Resp B/P (MAP) Pulse Ox O2 Delivery O2 Flow Rate FiO2 12/28/17 08:00 40 12/28/17 08:00 Mechanical Ventilator 40 12/28/17 08:00 36.4 68 16 147/50 (82) 96 Mechanical Ventilator 40 12/28/17 07:13 50 12/28/17 06:02 56 16 136/63 (87) 95 12/28/17 05:33 58 16 140/63 (88) 97 12/28/17 05:11 60 12/28/17 05:01 69 16 181/67 (95) 97 12/28/17 04:01 56 16 130/67 (87) 94 12/28/17 04:00 36.4 12/28/17 04:00 60 12/28/17 04:00 94 Mechanical Ventilator 50 12/28/17 03:01 56 16 122/68 (85) 94 12/28/17 02:05 60 12/28/17 02:01 66 16 122/74 (85) 92 12/28/17 01:01 68 16 132/71 (92) 95 12/28/17 00:01 61 16 121/69 (82) 92 12/27/17 23:59 36.2 12/27/17 23:59 92 Mechanical Ventilator 50 12/27/17 23:59 60 12/27/17 23:01 61 16 120/69 (82) 91 12/27/17 22:11 60 12/27/17 22:01 62 16 113/63 (90) 97 12/27/17 21:01 63 16 125/57 (94) 96 12/27/17 20:22 68 16 134/56 (90) 98 12/27/17 20:00 97 Mechanical Ventilator 60 12/27/17 20:00 60 12/27/17 20:00 36.3 12/27/17 19:21 60 12/27/17 19:02 60 16 136/63 (78) 92 12/27/17 17:52 60 12/27/17 17:50 36.7 60 16 143/69 (93) 97 Mechanical Ventilator 60 12/27/17 17:32 67 16 143/69 (93) 98 12/27/17 17:30 67 16 97 12/27/17 17:06 70 12/27/17 17:02 59 16 124/63 (83) 95 18 17:00 59 16 94 12/27/17 16:32 59 16 134/59 (84) 91 18 16:30 59 16 91 12/27/17 16:02 59 16 122/60 (80) 91 12/27/17 16:00 70 18 16:00 55 16 91 12/27/17 16:00 36.7 58 16 122/60 (80) 91 Mechanical Ventilator 70 12/27/17 15:32 70 12/27/17 13:25 100 12/27/17 13:07 61 16 124/63 (83) 98 Mechanical Ventilator 80 12/27/17 13:02 63 16 128/63 (84) 98 12/27/17 13:00 62 16 95 12/27/17 12:57 63 19 120/67 (84) 90 12/27/17 12:52 61 16 116/55 (75) 93 12/27/17 12:49 60 16 114/71 (85) 93 12/27/17 12:32 61 16 131/64 (86) 91 Mechanical Ventilator 100 12/27/17 12:30 61 16 91 12/27/17 12:02 61 16 138/68 (91) 92 12/27/17 12:00 62 16 92 12/27/17 11:39 80 12/27/17 11:32 61 16 135/67 (89) 94 12/27/17 11:30 61 16 95 12/27/17 11:20 36.6 62 16 119/65 (83) 94 Mechanical Ventilator 80 12/27/17 11:17 80 12/27/17 10:25 80 12/27/17 10:11 62 16 112/56 (74) 91 12/27/17 10:09 62 16 91 12/27/17 10:08 62 16 90 12/27/17 10:01 61 19 80/49 (59) 89 12/27/17 10:00 62 16 90 12/27/17 09:53 60 16 96/51 (66) 91 12/27/17 09:51 60 16 74/41 (52) 90 12/27/17 09:49 61 16 83/46 (58) 91 12/27/17 09:31 59 16 82/49 (60) 93 12/27/17 09:30 62 16 93 12/27/17 09:01 62 16 97/51 (66) 94 12/27/17 09:00 59 16 94 Laboratory Results: Last 24 Hours Test 12/27/17 11:46 12/27/17 11:55 12/27/17 17:01 12/27/17 23:30 Bedside Glucose 77 mg/dl 101 mg/dl 98 mg/dl Lactic Acid Level 1.6 mmol/L Test 12/28/17 04:05 12/28/17 05:11 White Blood Count 23.28 K/uL Red Blood Count 3.32 M/uL Hemoglobin 10.3 g/dL Hematocrit 31.0 % Mean Corpuscular Volume 93.4 fL Mean Corpuscular Hemoglobin 31.0 pg Mean Corpuscular Hemoglobin Concent 33.2 g/dl Platelet Count 117 K/uL Mean Platelet Volume 12.9 fL Neutrophils (%) (Auto) 91.0 % Lymphocytes (%) (Auto) 5.1 % Monocytes (%) (Auto) 3.0 % Eosinophils (%) (Auto) 0.0 % Basophils (%) (Auto) 0.0 % Neutrophils # (Auto) 21.16 K/uL Lymphocytes # (Auto) 1.19 K/uL Monocytes # (Auto) 0.71 K/uL Eosinophils # (Auto) 0.00 K/uL Basophils # (Auto) 0.01 K/uL RDW Standard Deviation 55.8 fL RDW Coefficient of Variation 16.5 % Immature Granulocyte % (Auto) 0.9 % Immature Granulocyte # (Auto) 0.21 K/uL Nucleated RBC Absolute Count (auto) 0.02 K/uL Nucleated Red Blood Cells % 0.1 % Red Blood Cell Morphology Unremarkable Sodium Level 139 mmol/L Potassium Level 4.0 mmol/L Chloride Level 102 mmol/L Carbon Dioxide Level 32 mmol/L Anion Gap 5.0 mmol/L Blood Urea Nitrogen 38 mg/dl Creatinine 1.22 mg/dl Est Creatinine Clear Calc Drug Dose 32.9 ml/min Estimated GFR () 52.0 Estimated GFR (Non- 44.8 BUN/Creatinine Ratio 31.5 Random Glucose 88 mg/dl Calcium Level 7.6 mg/dl Bedside Glucose 96 mg/dl PFT 10/06/2015: FVC: 1.25/54%, FEV1: 0.8/43%, FEV1/FVC: 77%, FEF 25-75%: 2.42/21% - no significant response to bronchodilator.: Outpatient pulmonary consultation
[2017-12-28] MEDS: NORMOSOL R 1,000 ML IV SCH (11:15)
[2017-12-28] MEDS ORDERED: NURSING VERBAL MED ORDER ONE ×2 (11:30→20:30)
--- NOTE | 2017-12-28 14:32 | Pharmacy Progress Note ---
Pharmacy Antibiotic Prog Note Date of Service Dec 28, 2017. Objective Height (Feet): 4 Height (Inches): 11.00 Weight (Kilograms): 60.100 Lab Results (24hrs): Test 12/28/17 04:05 12/28/17 05:11 12/28/17 08:49 12/28/17 11:10 White Blood Count 23.28 K/uL (4.8-10.8) Red Blood Count 3.32 M/uL (4.2-5.4) Hemoglobin 10.3 g/dL (12.0-16.0) Hematocrit 31.0 % (37-47) Mean Corpuscular Volume 93.4 fL (80-100) Mean Corpuscular Hemoglobin 31.0 pg (25-34) Mean Corpuscular Hemoglobin Concent 33.2 g/dl (32-36) Platelet Count 117 K/uL (130-400) Mean Platelet Volume 12.9 fL (7.4-10.4) Neutrophils (%) (Auto) 91.0 % Lymphocytes (%) (Auto) 5.1 % Monocytes (%) (Auto) 3.0 % Eosinophils (%) (Auto) 0.0 % Basophils (%) (Auto) 0.0 % Neutrophils # (Auto) 21.16 K/uL (1.4-6.5) Lymphocytes # (Auto) 1.19 K/uL (1.2-3.4) Monocytes # (Auto) 0.71 K/uL (0.11-0.59) Eosinophils # (Auto) 0.00 K/uL (0-0.5) Basophils # (Auto) 0.01 K/uL (0-0.2) RDW Standard Deviation 55.8 fL (36.4-46.3) RDW Coefficient of Variation 16.5 % (11.5-14.5) Immature Granulocyte % (Auto) 0.9 % Immature Granulocyte # (Auto) 0.21 K/uL (0.00-0.02) Nucleated RBC Absolute Count (auto) 0.02 K/uL (0-0) Nucleated Red Blood Cells % 0.1 % Red Blood Cell Morphology Unremarkable Sodium Level 139 mmol/L (136-145) Potassium Level 4.0 mmol/L (3.5-5.1) Chloride Level 102 mmol/L (98-107) Carbon Dioxide Level 32 mmol/L (21-32) Anion Gap 5.0 mmol/L (3-11) Blood Urea Nitrogen 38 mg/dl (7-18) Creatinine 1.22 mg/dl (0.60-1.20) Est Creatinine Clear Calc Drug Dose 32.9 ml/min Estimated GFR () 52.0 Estimated GFR (Non- 44.8 BUN/Creatinine Ratio 31.5 (10-20) Random Glucose 88 mg/dl (70-99) Calcium Level 7.6 mg/dl (8.5-10.1) Bedside Glucose 96 mg/dl (70-90) 88 mg/dl (70-90) Blood Gas Sample Site L Radial Bedside Blood Gas pH (LAB) 7.46 (7.35-7.45) Bedside Blood Gas pCO2 (LAB) 47 mmHg (35-46) Bedside Blood Gas pO2 (LAB) 63 mmHg (80-95) Bedside Blood Gas HCO3 (LAB) 34 meq/L (19-24) Bedside Blood Gas Total CO2 35 mEq/l (24-31) Bedside Blood Gas Base Excess (LAB) 10.0 meq/L (-9-1.8) Bedside Blood Gas O2 Saturation 93.0 % (90-95) Leroy Test Pass Oxygen Delivery Device Ventilator Bedside FiO2 40 % Blood Gas PEEP 12 Test 12/28/17 11:59 Random Vancomycin Level 20.7 mcg/ml Assessment & Plan Assessment * 72 yo F with recent hospitalization 12/21-12/25 for headache and constipation re -admitted 12/26 after significant aspiration event causing respiratory failure requiring intubation. Patient was extubated this AM to BiPAP. * Patient being treated for aspiration PNA but also at risk for HAP and has a hx of ESBL E. coli and Proteus UTI thus imipenem was selected - ID consulted and OK with continuing * Was originally also on vancomycin 2nd hx MRSA, but was discontinued 8/1 AM 2nd negative MRSA nasal swab. Resumed 8/ PM 2nd 1 of 2 blood cultures obtained 12/26 with GPC, now resulted as coagulase negative Staph. 2nd blood culture in set remains negative at ~34 hours. Repeat set of blood cultures drawn 12/27, pending. * Hx VRE UTI - despite this, vancomycin OK for now as urine is not likely source of infection and daptomycin would not cover pulmonary source ( significantly more likely to be source if this is a true infection). Linezolid not likely suitable 2nd significant DDI with other medications 2nd MAOI activity * WBC persistently elevated. Patient was originally hypothermic, temperatures improved today Vancomycin * Goal vancomycin trough 15-20 mcg/mL * Random level obtained today was drawn 16 hours after previous dose and is very slightly supratherapeutic at 20.7 mcg/mL * Will give one-time dose ~4 hours after level to help ensure it has trended down to therapeutic level. OK to continue same dose of 750 mg * Will not order level for now as anticipate likely discontinuation of vancomycin tomorrow AM, assuming 2nd blood culture from 12/26 set remains negative (suggests contaminant) Plan * Vancomycin 750 mg IV x1 * No level ordered for now, unless vancomycin continued beyond 8/3 AM Pharmacy will continue to follow and will adjust dose/frequency as necessary. Thank you
[2017-12-28] MEDS ORDERED: VANCOMYCIN IV 750 MG in SODIUM CHLORIDE 0.9% 250ML 250 ML IV ONE (16:00)
[2017-12-28] MEDS: ALBUT/IPRATROP 3MG/0.5MG NEB 3 ML VIAL INH SCH (19:30)
--- NOTE | 2017-12-28 19:36 | Infectious Disease Progress Nt ---
Progress Note Date of Service Dec 28, 2017. Subjective Pt evaluation today including: physical exam, chart review, lab review, review of studies, conversation w/ websphere commerce consultant, review of inpatient medication list Patient is sedated on ventilator. No increase in secretions. Blood cultures positive for coagulase negative Staph, likely contaminant. Cultures from bronchoscopy pending. All Other Systems: Reviewed and Negative Medications Current Inpatient Medications Medications (Trade) Dose Ordered Sig/Estephania Route Start Time Stop Time Status Last Admin Dose Admin Acetaminophen (Tylenol Tab) 650 mg Q4H PRN PO 12/26/17 22:45 01/25/18 22:44 Miscellaneous Information (Icu Protocol For Hyperglycemia) 1 ea PRN PRN N/A 12/26/17 22:45 12/28/17 22:44 Midazolam HCl 250 ml @ 0 mls/hr Q0M PRN IV 12/26/17 22:35 01/25/18 22:34 12/28/17 01:34 8 MLS/HR Allopurinol (Zyloprim Tab) 100 mg BID PO 12/27/17 09:00 01/26/18 08:59 12/28/17 07:52 100 MG Calcitonin [place] (Fortical Nasal [place]) 1 spray QAM ERIC 12/27/17 09:00 01/26/18 08:59 12/28/17 07:52 1 SPRAY Carvedilol (Coreg Tab) 25 mg BID PO 12/27/17 09:00 01/26/18 08:59 12/28/17 07:54 25 MG Salmeterol Xinafoate/ Fluticasone (Advair Diskus 250/50 Inh) 1 puff BID INH 12/27/17 09:00 01/26/18 08:59 Albuterol Sulfate (Ventolin 0.083% 2.5MG/3ML Neb) 2.5 mg Q4H PRN INH 12/26/17 23:45 01/25/18 23:44 Polyethylene (Miralax Powder Packet) 17 gm BID PRN PO 12/26/17 23:45 01/25/18 23:14 Thiamine HCl 100 mg/Syringe 10 ml @ 2 mls/min QAM IV 12/27/17 09:00 01/26/18 08:59 12/28/17 07:52 2 MLS/MIN Pantoprazole Sodium 40 mg/ Syringe 10 ml @ 5 mls/min BID@0900,2100 IV 12/27/17 09:00 01/26/18 08:59 12/28/17 07:52 5 MLS/MIN Hydralazine HCl (Apresoline Tab) 10 mg TID PO 12/27/17 09:00 01/26/18 08:59 12/28/17 13:16 10 MG Hydralazine HCl (HydrALAZINE INJ) 10 mg Q4 PRN IV. 12/27/17 02:30 01/26/18 02:29 Imipenem/ Cilastatin Sodium (Consult) 1 ea UD PRN N/A 12/27/17 08:15 01/26/18 08:14 Methadone HCl (Dolophine Tab) 30 mg TID PO 12/27/17 09:00 01/10/18 08:59 12/28/17 07:54 30 MG Pregabalin (Lyrica Cap) 50 mg BID PO 12/27/17 09:00 01/26/18 08:59 12/28/17 07:54 50 MG Duloxetine HCl (Cymbalta Cap) 20 mg QAM PO 12/27/17 09:00 01/26/18 08:59 12/28/17 07:54 20 MG Baclofen (Lioresal Tab) 5 mg TID PO 12/27/17 09:00 01/26/18 08:59 12/28/17 13:16 5 MG Fentanyl Citrate (Fentanyl Inj) 100 mcg Q2H PRN IV 12/27/17 09:00 01/10/18 08:59 12/28/17 04:59 100 MCG Rosuvastatin Calcium (Crestor Tab) 20 mg QPM PO 12/27/17 21:00 01/26/18 20:59 12/27/17 21:06 20 MG Parenteral Electrolyte Solution 1,000 ml @ 75 mls/hr [id number] IV 12/27/17 09:15 01/26/18 09:14 12/28/17 11:15 75 MLS/HR Enoxaparin Sodium (Lovenox Inj) 30 mg HS SQ 12/27/17 21:00 01/26/18 20:59 12/27/17 21:05 30 MG Prednisone (PredniSONE TAB) 50 mg Taper QAM PO 12/28/17 09:00 01/07/18 08:59 12/28/17 07:55 50 MG Prednisone (PredniSONE TAB) 5 mg QAM PO 01/07/18 09:00 01/08/18 09:01 Prednisone (PredniSONE TAB) 2.5 mg QAM PO 01/09/18 09:00 02/08/18 08:59 Imipenem/ Cilastatin Sodium 300 mg/Dextrose 106 ml @ 106 mls/hr Q6H IV 12/27/17 14:00 01/03/18 07:59 12/28/17 13:46 106 MLS/HR Docusate Sodium (coLACE SYRUP) 100 mg BID PO 12/27/17 21:00 01/25/18 23:14 12/28/17 07:54 100 MG Vancomycin HCl (Consult) 1 ea UD PRN N/A 12/27/17 19:00 01/10/18 18:59 Heparin Sodium (Porcine) (Heparin 10 Unit/ ml 5 ml Flush) 5 ml PRN PRN FLUSH 12/27/17 23:15 01/26/18 23:14 Albuterol/ Ipratropium (Duoneb) 3 ml QIDR INH 12/28/17 16:00 01/27/18 15:59 12/28/17 19:30 3 ML Objective Vital Signs Date Time Temp Pulse Resp B/P (MAP) Pulse Ox O2 Delivery O2 Flow Rate FiO2 12/28/17 18:01 75 125/93 (104) 90 12/28/17 18:00 74 89 12/28/17 17:01 76 145/90 (108) 90 12/28/17 17:00 77 91 12/28/17 16:02 72 149/76 (100) 93 12/28/17 16:00 76 94 12/28/17 15:30 36.4 72 14 166/82 (110) 92 BiPAP 40 12/28/17 15:02 76 166/82 (110) 91 12/28/17 15:00 78 93 12/28/17 14:17 77 122/79 (93) 91 12/28/17 14:00 76 91 12/28/17 13:26 36.6 78 14 167/69 (101) 95 BiPAP 50 12/28/17 13:15 75 167/79 (108) 95 12/28/17 13:02 79 132/82 (99) 93 8/2/18 13:00 77 93 8/2/18 12:01 77 116/83 (94) 92 8/2/18 12:00 75 92 8/2/18 11:48 36.4 76 14 125/71 (89) 93 BiPAP 50 8/2/18 11:30 71 93 8/2/18 11:20 97 94 50 8/2/18 11:01 72 125/71 (89) 94 8/2/18 10:30 73 93 8/2/18 10:01 68 112/81 (91) 91 8/2/18 10:00 36.4 68 16 112/81 (91) 91 BiPAP 60 8/2/18 09:30 67 92 8/2/18 09:02 68 139/75 (96) 88 8218 09:01 94 94 60 8/2/18 08:30 64 12 94 82/18 08:03 64 17 147/50 (82) 93 818 08:00 40 8/2/18 08:00 Mechanical Ventilator 40 818 08:00 36.4 68 16 147/50 (82) 96 Mechanical Ventilator 40 82/18 08:00 Mechanical Ventilator 40 82/18 07:30 58 16 96 8/2/18 07:13 50 8/2/18 06:02 56 16 136/63 (87) 95 8/2/18 05:33 58 16 140/63 (88) 97 82/18 05:11 60 8/2/18 05:01 69 16 181/67 (95) 97 82/18 04:01 56 16 130/67 (87) 94 82/18 04:00 36.4 8/2/18 04:00 60 8/2/18 04:00 94 Mechanical Ventilator 50 82/18 03:01 56 16 122/68 (85) 94 82/18 02:05 60 82/18 02:01 66 16 122/74 (85) 92 82/18 01:01 68 16 132/71 (92) 95 82/18 00:01 61 16 121/69 (82) 92 818 23:59 36.2 8/18 23:59 92 Mechanical Ventilator 50 8/1/18 23:59 60 8/1/18 23:01 61 16 120/69 (82) 91 12/27/17 22:11 60 12/27/17 22:01 62 16 113/63 (90) 97 12/27/17 21:01 63 16 125/57 (94) 96 12/27/17 20:22 68 16 134/56 (90) 98 12/27/17 20:00 97 Mechanical Ventilator 60 12/27/17 20:00 60 12/27/17 20:00 36.3 Physical Exam General Appearance: no apparent distress, + pertinent finding (Chronically ill- appearing) Eyes: normal inspection, EOMI, sclerae normal ENT: pharynx normal, + pertinent finding (He T-tube in place) Neck: supple, no adenopathy, thyroid normal, trachea midline Respiratory/Chest: chest non-tender, lungs clear, normal breath sounds, no respiratory distress Cardiovascular: regular rate, rhythm, no gallop, no murmur Abdomen: normal bowel sounds, non tender, soft, no organomegaly Extremities: non-tender, no calf tenderness Neurologic/Psychiatric: + disoriented, + pertinent finding (Sedated but episodes of disorientation) Skin: normal color, warm/dry, no rash Lymphatic: no adenopathy Laboratory Results RUN DATE: 12/28/17 [facility] LAB PAGE 1 RUN TIME: 1228 Specimen Inquiry [id number] LOC: [facility]ARY[facility]EN # : [id number] AGE/SX: 72/F ROOM: E108 REG : 12/26/[address]: Elenita Rowe MD : 1945 BED: 1 DIS : STATUS: ADM IN TLOC: SPEC #: [id number] CINDY: 12/26/17-UNK STATUS: COMP REQ #: [id number] RECD: 12/26/[address]: Thom Saenz MD SOURCE: BLOOD ENTR: 12/26/17 [facility] DR: Marti Vila [facility]: ORDERED: BLOOD CULTURE COMMENTS: Comments to Collar Sewer SAME TIME, DIFFERENT SITES Add to Specimen in Lab Pediatric Collection Bottle Obtained Procedure Result Verified Site BLD CULT Final 12/28/17-1228 Organism 1 COAG NEG STAPH NOT APRILUNENSIS SENS NO SENSITIVITY TO FOLLOW Phoned results to ALAN HER on 12/27/17 at 1829 by Marissa Zuleta. Results were verbalized back to SHARI. One set of two positive. Isolation does not necessarily mean infection. No susceptibility tests performed. Contact microbiology laboratory [phone]) if further studies are indicated. Last 24 Hours Test 12/27/17 23:30 12/28/17 04:05 12/28/17 05:11 12/28/17 08:49 Bedside Glucose 98 mg/dl 96 mg/dl White Blood Count 23.28 K/uL Red Blood Count 3.32 M/uL Hemoglobin 10.3 g/dL Hematocrit 31.0 % Mean Corpuscular Volume 93.4 fL Mean Corpuscular Hemoglobin 31.0 pg Mean Corpuscular Hemoglobin Concent 33.2 g/dl Platelet Count 117 K/uL Mean Platelet Volume 12.9 fL Neutrophils (%) (Auto) 91.0 % Lymphocytes (%) (Auto) 5.1 % Monocytes (%) (Auto) 3.0 % Eosinophils (%) (Auto) 0.0 % Basophils (%) (Auto) 0.0 % Neutrophils # (Auto) 21.16 K/uL Lymphocytes # (Auto) 1.19 K/uL Monocytes # (Auto) 0.71 K/uL Eosinophils # (Auto) 0.00 K/uL Basophils # (Auto) 0.01 K/uL RDW Standard Deviation 55.8 fL RDW Coefficient of Variation 16.5 % Immature Granulocyte % (Auto) 0.9 % Immature Granulocyte # (Auto) 0.21 K/uL Nucleated RBC Absolute Count (auto) 0.02 K/uL Nucleated Red Blood Cells % 0.1 % Red Blood Cell Morphology Unremarkable Sodium Level 139 mmol/L Potassium Level 4.0 mmol/L Chloride Level 102 mmol/L Carbon Dioxide Level 32 mmol/L Anion Gap 5.0 mmol/L Blood Urea Nitrogen 38 mg/dl Creatinine 1.22 mg/dl Est Creatinine Clear Calc Drug Dose 32.9 ml/min Estimated GFR () 52.0 Estimated GFR (Non- 44.8 BUN/Creatinine Ratio 31.5 Random Glucose 88 mg/dl Calcium Level 7.6 mg/dl Blood Gas Sample Site L Radial Bedside Blood Gas pH (LAB) 7.46 Bedside Blood Gas pCO2 (LAB) 47 mmHg Bedside Blood Gas pO2 (LAB) 63 mmHg Bedside Blood Gas HCO3 (LAB) 34 meq/L Bedside Blood Gas Total CO2 35 mEq/l Bedside Blood Gas Base Excess (LAB) 10.0 meq/L Bedside Blood Gas O2 Saturation 93.0 % Leroy Test Pass Oxygen Delivery Device Ventilator Bedside FiO2 40 % Blood Gas PEEP 12 Test 12/28/17 11:10 12/28/17 11:59 Bedside Glucose 88 mg/dl Random Vancomycin Level 20.7 mcg/ml CHEST ONE VIEW PORTABLE CLINICAL HISTORY: intubation tube position COMPARISON STUDY: 12/26/2017 FINDINGS: Endotracheal tube 1 cm below the ramandeep. Slight improvement in aeration left lung base. Improved prominence of pulmonary vasculature. Left-sided rib fractures again noted. Prior operative changes to the left humerus. IMPRESSION: 1. Endotracheal tube 1 cm above the ramandeep. 2. Improved aeration left base. 3. Study is otherwise similar. The above report was generated using voice recognition software. It may contain grammatical, syntax or spelling errors. Assessment and Plan 72-year-old female with acute aspiration pneumonia with respiratory failure. Patient is slightly better since yesterday, able to be extubated, remains afebrile. To continue current antibiotics pending final cultures from bronchoscopy. Will follow.
[2017-12-28] MEDS ORDERED: ALTEPLASE, RECOMBINANT 1 MG/ML 2 ML VIAL IV ONE (20:45)
[2017-12-28] MEDS: ENOXAPARIN 30 MG/0.3 ML SYR SQ SCH (21:35)
[2017-12-28] MEDS: ROSUVASTATIN CALCIUM 20 MG TAB PO SCH (21:38)
--- NOTE | 2017-12-28 23:29 | Hospitalist Progress Note ---
Hospitalist Progress Note Date of Service Dec 28, 2017. Subjective Pt evaluation today including: conversation w/ patient Pt extubated this AM. Remains very lethargic, but did finally wake up to loud verbal and gentle tactile stim. SHe appeared confused and was looking all around , then mouthed the words "what happened?" through her BiPAP. She then quickly fell back asleep Additional Comments: could not obtain Objective Vital Signs Date Time Temp Pulse Resp B/P (MAP) Pulse Ox O2 Delivery O2 Flow Rate FiO2 12/28/17 21:00 85 18 166/70 (102) 92 Nasal Cannula 4.0 12/28/17 20:00 36.4 79 16 170/91 (117) 89 Nasal Cannula 4.0 12/28/17 20:00 91 Nasal Cannula 4.0 12/28/17 19:33 80 20 93 Nasal Cannula 4.0 12/28/17 19:00 85 166/71 (102) 93 12/28/17 18:01 75 125/93 (104) 90 12/28/17 18:00 74 89 12/28/17 17:01 76 145/90 (108) 90 12/28/17 17:00 77 91 12/28/17 16:02 72 149/76 (100) 93 12/28/17 16:00 76 94 12/28/17 15:30 36.4 72 14 166/82 (110) 92 BiPAP 40 12/28/17 15:02 76 166/82 (110) 91 12/28/17 15:00 78 93 12/28/17 14:17 77 122/79 (93) 91 12/28/17 14:00 76 91 12/28/17 13:26 36.6 78 14 167/69 (101) 95 BiPAP 50 12/28/17 13:15 75 167/79 (108) 95 12/28/17 13:02 79 132/82 (99) 93 12/28/17 13:00 77 93 12/28/17 12:01 77 116/83 (94) 92 12/28/17 12:00 75 92 12/28/17 11:48 36.4 76 14 125/71 (89) 93 BiPAP 50 12/28/17 11:30 71 93 12/28/17 11:20 97 94 50 12/28/17 11:01 72 125/71 (89) 94 12/28/17 10:30 73 93 12/28/17 10:01 68 112/81 (91) 91 12/28/17 10:00 36.4 68 16 112/81 (91) 91 BiPAP 60 12/28/17 09:30 67 92 12/28/17 09:02 68 139/75 (96) 88 12/28/17 09:01 94 94 60 12/28/17 08:30 64 12 94 12/28/17 08:03 64 17 147/50 (82) 93 12/28/17 08:00 40 12/28/17 08:00 Mechanical Ventilator 40 12/28/17 08:00 36.4 68 16 147/50 (82) 96 Mechanical Ventilator 40 12/28/17 08:00 Mechanical Ventilator 40 12/28/17 07:30 58 16 96 12/28/17 07:13 50 12/28/17 06:02 56 16 136/63 (87) 95 12/28/17 05:33 58 16 140/63 (88) 97 12/28/17 05:11 60 12/28/17 05:01 69 16 181/67 (95) 97 12/28/17 04:01 56 16 130/67 (87) 94 12/28/17 04:00 36.4 12/28/17 04:00 60 12/28/17 04:00 94 Mechanical Ventilator 50 12/28/17 03:01 56 16 122/68 (85) 94 12/28/17 02:05 60 12/28/17 02:01 66 16 122/74 (85) 92 12/28/17 01:01 68 16 132/71 (92) 95 12/28/17 00:01 61 16 121/69 (82) 92 12/27/17 23:59 36.2 12/27/17 23:59 92 Mechanical Ventilator 50 12/27/17 23:59 60 Physical Exam General Appearance: no apparent distress (frail, appears ill) Eyes: normal inspection, sclerae normal ENT: hearing grossly normal Neck: trachea midline Respiratory/Chest: lungs clear, no respiratory distress, no accessory muscle use, + decreased breath sounds (at bases) Cardiovascular: regular rate, rhythm, no edema Abdomen: normal bowel sounds, non tender, soft Extremities: no calf tenderness Neurologic/Psychiatric: + disoriented, + pertinent finding (lethargic, does follow commands, squeezes my fingers with each hand) Skin: normal color, warm/dry, no rash Laboratory Results Last 24 Hours Test 12/27/17 23:30 12/28/17 04:05 12/28/17 05:11 12/28/17 08:49 Bedside Glucose 98 mg/dl 96 mg/dl White Blood Count 23.28 K/uL Red Blood Count 3.32 M/uL Hemoglobin 10.3 g/dL Hematocrit 31.0 % Mean Corpuscular Volume 93.4 fL Mean Corpuscular Hemoglobin 31.0 pg Mean Corpuscular Hemoglobin Concent 33.2 g/dl Platelet Count 117 K/uL Mean Platelet Volume 12.9 fL Neutrophils (%) (Auto) 91.0 % Lymphocytes (%) (Auto) 5.1 % Monocytes (%) (Auto) 3.0 % Eosinophils (%) (Auto) 0.0 % Basophils (%) (Auto) 0.0 % Neutrophils # (Auto) 21.16 K/uL Lymphocytes # (Auto) 1.19 K/uL Monocytes # (Auto) 0.71 K/uL Eosinophils # (Auto) 0.00 K/uL Basophils # (Auto) 0.01 K/uL RDW Standard Deviation 55.8 fL RDW Coefficient of Variation 16.5 % Immature Granulocyte % (Auto) 0.9 % Immature Granulocyte # (Auto) 0.21 K/uL Nucleated RBC Absolute Count (auto) 0.02 K/uL Nucleated Red Blood Cells % 0.1 % Red Blood Cell Morphology Unremarkable Sodium Level 139 mmol/L Potassium Level 4.0 mmol/L Chloride Level 102 mmol/L Carbon Dioxide Level 32 mmol/L Anion Gap 5.0 mmol/L Blood Urea Nitrogen 38 mg/dl Creatinine 1.22 mg/dl Est Creatinine Clear Calc Drug Dose 32.9 ml/min Estimated GFR () 52.0 Estimated GFR (Non- 44.8 BUN/Creatinine Ratio 31.5 Random Glucose 88 mg/dl Calcium Level 7.6 mg/dl Blood Gas Sample Site L Radial Bedside Blood Gas pH (LAB) 7.46 Bedside Blood Gas pCO2 (LAB) 47 mmHg Bedside Blood Gas pO2 (LAB) 63 mmHg Bedside Blood Gas HCO3 (LAB) 34 meq/L Bedside Blood Gas Total CO2 35 mEq/l Bedside Blood Gas Base Excess (LAB) 10.0 meq/L Bedside Blood Gas O2 Saturation 93.0 % Leroy Test Pass Oxygen Delivery Device Ventilator Bedside FiO2 40 % Blood Gas PEEP 12 Test 12/28/17 11:10 12/28/17 11:59 Bedside Glucose 88 mg/dl Random Vancomycin Level 20.7 mcg/ml Diagnostic Results personally reviewed CXR image and agree with the following report: CHEST ONE VIEW PORTABLE CLINICAL HISTORY: intubation tube position COMPARISON STUDY: 12/26/2017 FINDINGS: Endotracheal tube 1 cm below the ramandeep. Slight improvement in aeration left lung base. Improved prominence of pulmonary vasculature. Left-sided rib fractures again noted. Prior operative changes to the left humerus. IMPRESSION: 1. Endotracheal tube 1 cm above the ramandeep. 2. Improved aeration left base. 3. Study is otherwise similar. Assessment and Plan This pt is a 72yo female with a h/o HTN, HPL, secondary hyperparathyroidism, CKD III, gout, chronic diastolic CHF, COPD - O2-dependent/chronic hypoxic respiratory failure, bronchiectasis and recurrent pneumonia, depression, severe osteoporosis complicated by multiple fractures, chronic back/hip pain on methadone, and recurrent UTI (U cx in 08/2017 pos. for Ecoli ESBL), constipation , with recent admission for intractable headache and just discharged the day prior to admission. Patient became unresponsive and developed respiratory distress during dinner most likely secondary to an aspiration event s/p intubation in the ER for acute on chronic hypoxic respiratory failure and unresponsiveness. 1. Neuro: patient now extubated and off sedation, remains lethargic, encephalopathic likely due to versed and fentanyl. No focal deficits noted. CT head negative on admission. Patient with history of chronic pain syndrome on methadone, history of intractable headache which was evaluated by Neurology at previous visit. Was placed on Valium with complete relief of her headaches, and restarted on Lyrica for peripheral neuropathy with relief. Acute metabolic and toxic encephalopathy Depression - on Cymbalta, Remeron -Chronic pain -restarted Methadone -restarted Cymbalta at lower dose of 20 due to prolonged QT, continue Lyrica and Baclofen for neuropathy and back pain -holding Verapamil for headache prophylaxis after having low BPs -Continue Prednisone 60 mg po daily and taper down as per plan from recent discharge for headaches. Plan to decrease by 10mg/day every two days until back to maintenance dose of 2.5mg. -await for her to become more awake and alert hopefully in the next 24 hours 2. Cardiovascular - patient hemodynamically stable at present. No evidence of ischemia on EKG. Patient with history of HTN, HLP, chronic diastolic CHF. Per prior records patients blood pressure is very labile and highly responsive to PRN agents. She did have some hypotension the first night after receiving hydralazine 10mg per OGT, BPs now improved Troponin negative -Continue Coreg 25mg po BID -continue Hydralazine 10mg po TID -[employer]nament[employer]er started her on Crestor 20mg 3. Pulmonary - patient intubated for hypoxic respiratory failure in setting of probably aspiration event. Elevated WBC count at 18.79 on admission, which has gone up to 23k, but also on steroids, CXR suggestive of PNA vs chemical pneumonitis. History of COPD on home O2. History of bronchiectasis with recurrent PNA. Repeat CXR 12/28 with improved aeration left base -weaned to BiPAP presently-continue to wean back to home O2 level -continue on Imipenem for aspiration -Continue Fluticasone/Salmeterol -Continue bronchodilators, dc'd Spiriva -Continue Prednisone 60 mg po daily - plan to decrease by 10mg every two days until reach 2.5mg daily -follow BCxs and bronchoscopy cxs 4. GI - stable. patient with history of duodenal bulb ulcer. Had severe constipation last admission which was resolving prior to discharge, but with KUB here still full of stool -NPO except medications -continue Protonix 40 IV BID -Bowel regimen with Colace BID and Miralax PRN -adv diet when more alert 5. - patient with history of CKD Stage III. BUN of 45, Cr of 1.3 on admission and now improved to 1.22. Mildly elevated K at 5.7 on admission and now improved to 4.0. No EKG changes -Repeat PRP in AM -Avoid nephrotoxic agents -Renal dosing to all medications -Continue to monitor BUN, Cr, electrolytes and UOP 6. Heme - H/H stable, patient with history of anemia, macrocytic with MCV of 100.2, hgb fairly stable at 10.3 B12 and Folate-low end of normal -Continue to monitor 7. ID - concern for aspiration PNA vs chemical pneumonitis -Imipenem as above -History of MRSA and ESBL UTIs, UA negative. Contact precautions -follow CBC 8. Endocrine - history of hyperparathyroidism, osteoporosis with multiple fractures -Continue calcitonin spray 9. Rheum - history of gout -Continue Allopurinol 100mg po BID 10. F/E/N - heplock. Monitor electrolytes and replete as needed. Continue Thiamine IV 11. Ppx - Lovenox for DVT, Protonix at home dose BID 12. Code - Full 13. Dispo -remain in ICU
[2017-12-29] VITALS (19 sets, daily range): BP systolic 148–195; BP diastolic 76–127; PULSE 48–87; TEMP 36.4–36.8; O2SAT 84–95
[2017-12-29] MEDS: IMIPENEM/CILASTATIN IV 300 MG in DEXTROSE 5% 100ML 100 ML IV SCH ×4 (01:56→20:51)
[2017-12-29 04:28] LABS: HEMATOCRIT 33.3 % (37-47); HEMOGLOBIN 10.6 g/dL (12.0-16.0); MEAN CELL VOLUME 94.6 fL (80-100); MEAN CORPUSCULAR HEMOGLOBIN 30.1 pg (25-34); MEAN CORPUSCULAR HGB CONC 31.8 g/dl (32-36); PLATELET COUNT 124 K/uL (130-400); RED CELL DISTRIBUTION WIDTH CV 16.9 % (11.5-14.5); RED CELL DISTRIBUTION WIDTH SD 57.6 fL (36.4-46.3); WHITE BLOOD COUNT 22.49 K/uL (4.8-10.8)
[2017-12-29] MEDS: FENTANYL CITRATE INJ 50 MCG/1 ML 2 ML VIAL IV PRN (04:41)
[2017-12-29 04:42] LABS: CALCIUM 7.9 mg/dl (8.5-10.1); CREATININE 1.04 mg/dl (0.60-1.20); POTASSIUM 3.8 mmol/L (3.5-5.1)
[2017-12-29 04:51] LABS: BASO % 0.1 %; BASO ABS # 0.02 K/uL (0-0.2); EOS ABS # 0.01 K/uL (0-0.5); IG# 0.24 K/uL (0.00-0.02); LYMPH % 5.6 %; LYMPH ABS # 1.25 K/uL (1.2-3.4); MONO % 3.6 %; NEUT % 89.6 %; NEUT ABS # 20.17 K/uL (1.4-6.5)
--- NOTE | 2017-12-29 06:48 | DIAGNOSTIC IMAGING REPORT ---
CHEST ONE VIEW PORTABLE CLINICAL HISTORY: Chest x-ray for PICC catheter placement COMPARISON STUDY: December 28, 2017 FINDINGS: The heart is enlarged. There is a nasogastric tube which passes into the stomach. The endotracheal tube has been removed. There is a right-sided PICC catheter projected in the superior vena cava. There are multiple old left-sided rib deformities. There is layering of the left lateral costophrenic angle. There is improving mild pulmonary vascular congestion.[ IMPRESSION: 1. Cardiomegaly and improving mild pulmonary vascular congestion 2. Interval removal of the endotracheal tube. Electronically signed by: Himanshu Cueto M.D. 12/29/2017 6:47 AM Dictated Date/Time: 12/29/2017 6:46 AM
[2017-12-29] MEDS: ALBUT/IPRATROP 3MG/0.5MG NEB 3 ML VIAL INH SCH ×2 (07:09→11:15)
[2017-12-29] MEDS: CARVEDILOL 25 MG TAB PO SCH ×2 (08:22→20:57)
[2017-12-29] MEDS: ALLOPURINOL 100 MG TAB PO SCH (08:22)
[2017-12-29] MEDS: DOCUSATE SODIUM 100 MG/10 ML UDC PO SCH ×2 (08:22→20:57)
[2017-12-29] MEDS: THIAMINE HCL INJ 100 MG in SYRINGE 9 ML IV SCH (08:23)
[2017-12-29] MEDS: HydrALAZINE 10 MG TAB PO SCH ×3 (08:23→20:56)
[2017-12-29] MEDS: BACLOFEN 10 MG TAB PO SCH ×3 (08:23→20:59)
[2017-12-29] MEDS: CALCITONIN SALMON NA 200 IU/AC 3.7 ML BTL NAE SCH (08:23)
[2017-12-29] MEDS: DULOXETINE HCL 20 MG CAP PO SCH (08:23)
[2017-12-29] MEDS: PANTOprazole INJ 40 MG in SYRINGE 0 ML IV SCH (08:23)
[2017-12-29] MEDS: METHADONE HCL 10 MG TAB PO SCH ×3 (08:24→20:58)
[2017-12-29] MEDS: PREGABALIN 50 MG CAP PO SCH (08:24)
[2017-12-29] MEDS: FLUTICASONE/SALMETEROL 250/50 (ADVAIR) 14 PUFF/1 INHALER INH SCH ×2 (08:25→20:51)
--- NOTE | 2017-12-29 09:20 | Palliative Care Progress Note ---
Palliative Care Progress Note Date of Service Dec 29, 2017. Subjective Pt evaluation today including: conversation w/ patient, physical exam, chart review, conversation w/ [employer] consultant (Dr. Rowe, Dr. Pradhan) Patient is almost back to baseline today. Awake, alert and oriented x4. Lengthy conversation about CODE STATUS, goals of care, and POLST form. See below. Review of Systems Constitutional: No fever, No chills ENT: No trouble swallowing Respiratory: + cough, + dyspnea on exertion, No sputum, No wheezing, No shortness of breath Cardiac: No chest pain, No edema Abdomen: No nausea, No vomiting Musculoskeletal: + problem reported (back pain) Female : No problem reported Psychiatric: No depression symptoms, No anxiety Objective Vital Signs Date Time Temp Pulse Resp B/P (MAP) Pulse Ox O2 Delivery O2 Flow Rate FiO2 12/29/17 07:12 81 20 93 Nasal Cannula 4.0 12/29/17 06:00 85 20 151/101 (118) 89 Nasal Cannula 4.0 12/29/17 05:00 71 18 170/86 (114) 90 Nasal Cannula 4.0 12/29/17 04:00 36.4 77 20 194/110 (138) 91 Nasal Cannula 4.0 12/29/17 03:00 87 20 162/93 (116) 89 Nasal Cannula 4.0 12/29/17 02:00 81 20 90 Nasal Cannula 4.0 12/29/17 01:00 82 20 91 Nasal Cannula 4.0 12/29/17 00:02 36.5 79 20 189/76 (113) 92 Nasal Cannula 4.0 12/28/17 23:00 78 20 166/75 (105) 90 Nasal Cannula 4.0 12/28/17 21:00 85 18 166/70 (102) 92 Nasal Cannula 4.0 12/28/17 20:00 36.4 79 16 170/91 (117) 89 Nasal Cannula 4.0 12/28/17 20:00 91 Nasal Cannula 4.0 12/28/17 19:33 80 20 93 Nasal Cannula 4.0 12/28/17 19:00 85 166/71 (102) 93 12/28/17 18:01 75 125/93 (104) 90 12/28/17 18:00 74 89 12/28/17 17:01 76 145/90 (108) 90 12/28/17 17:00 77 91 12/28/17 16:02 72 149/76 (100) 93 12/28/17 16:00 76 94 12/28/17 15:30 36.4 72 14 166/82 (110) 92 BiPAP 40 12/28/17 15:02 76 166/82 (110) 91 12/28/17 15:00 78 93 12/28/17 14:17 77 122/79 (93) 91 12/28/17 14:00 76 91 12/28/17 13:26 36.6 78 14 167/69 (101) 95 BiPAP 50 12/28/17 13:15 75 167/79 (108) 95 12/28/17 13:02 79 132/82 (99) 93 12/28/17 13:00 77 93 12/28/17 12:01 77 116/83 (94) 92 12/28/17 12:00 75 92 12/28/17 11:48 36.4 76 14 125/71 (89) 93 BiPAP 50 12/28/17 11:30 71 93 12/28/17 11:20 97 94 50 12/28/17 11:01 72 125/71 (89) 94 12/28/17 10:30 73 93 12/28/17 10:01 68 112/81 (91) 91 12/28/17 10:00 36.4 68 16 112/81 (91) 91 BiPAP 60 12/28/17 09:30 67 92 Physical Exam General Appearance: no apparent distress, + pertinent finding (chronically ill and frail appearing) ENT: hearing grossly normal Neck: supple, no JVD Respiratory/Chest: no respiratory distress, no accessory muscle use, + decreased breath sounds Cardiovascular: regular rate, rhythm, no edema Abdomen: normal bowel sounds, non tender, soft Neurologic/Psychiatric: alert, normal mood/affect, oriented x 3 Skin: normal color Laboratory Results Last 24 Hours Test 12/28/17 11:10 12/28/17 11:59 12/29/17 04:15 Bedside Glucose 88 mg/dl Random Vancomycin Level 20.7 mcg/ml White Blood Count 22.49 K/uL Red Blood Count 3.52 M/uL Hemoglobin 10.6 g/dL Hematocrit 33.3 % Mean Corpuscular Volume 94.6 fL Mean Corpuscular Hemoglobin 30.1 pg Mean Corpuscular Hemoglobin Concent 31.8 g/dl Platelet Count 124 K/uL Mean Platelet Volume 13.0 fL Neutrophils (%) (Auto) 89.6 % Lymphocytes (%) (Auto) 5.6 % Monocytes (%) (Auto) 3.6 % Eosinophils (%) (Auto) 0.0 % Basophils (%) (Auto) 0.1 % Neutrophils # (Auto) 20.17 K/uL Lymphocytes # (Auto) 1.25 K/uL Monocytes # (Auto) 0.80 K/uL Eosinophils # (Auto) 0.01 K/uL Basophils # (Auto) 0.02 K/uL RDW Standard Deviation 57.6 fL RDW Coefficient of Variation 16.9 % Immature Granulocyte % (Auto) 1.1 % Immature Granulocyte # (Auto) 0.24 K/uL Sodium Level 142 mmol/L Potassium Level 3.8 mmol/L Chloride Level 108 mmol/L Carbon Dioxide Level 31 mmol/L Anion Gap 3.0 mmol/L Blood Urea Nitrogen 31 mg/dl Creatinine 1.04 mg/dl Est Creatinine Clear Calc Drug Dose 39.7 ml/min Estimated GFR () 63.0 Estimated GFR (Non- 54.4 BUN/Creatinine Ratio 30.0 Random Glucose 81 mg/dl Calcium Level 7.9 mg/dl Procalcitonin 0.34 ng/ml Assessment and Plan Problem list: Pain, chronic Aspiration pneumonitis, chronic aspiration Hypoxic respiratory failure Hx COPD on home oxygen Goals of care Palliative care recs: -After discussion, patient would like to be DNR in event of cardiac arrest. She is okay with short-term or elective intubation such as what was done during this admission. -POLST form completed as follows: DNR, full treatment "Trial period of full treatment, including intubation, but no long-term, life-prolonging measures," abx if life can be prolonged, trial period of IVF but no feeding tube. -Patient denies ever overtly aspirating in the past but did admit to "silent aspiration from GERD." She is okay with continuing to eat despite aspiration risk. Speech consult is ordered. -Patient states, "I have a wonderful life. I don't want to yet." She states she has a good quality of life and enjoys talking with her son and grandchildren as well as spending time with her "lover." -Plan is to return to [facility] when medically stable. Thank you again for this consult. Please contact me with any further palliative care needs. Total time spent 45 minutes with >50% of time spent at bedside with patient counseling, discussing goals of care and completing POLST form.
--- NOTE | 2017-12-29 09:34 | Critical Care Progress Note ---
Critical Care Progress Note Date of Service Dec 29, 2017. ICU Day ICU Day Number: [address] Pradhan Subjective No overnight events, significant clinical improvement, able to speak in full sentences requesting additional pain medication Objective General: Alert. Skin: Warm, dry, Head: Atraumatic Ears, nose, mouth and throat: Airway patent, NG tube present Cardiovascular: Normal peripheral perfusion Respiratory: Scattered rhonchi Gastrointestinal: Non distended Musculoskeletal: No deformity Assessment & Plan PLAN: Neuro: Chronic pain -Methadone use: 30 mg 3 times daily -Cymbalta: 30 mg every morning -Lyrica: 50 mg twice daily -Baclofen: 10 mg 3 times daily -Valium 5 mg every 5 hours as needed 14 days Chronic cephalgia -60 MG PO QAM tapering schedule -Reviewed pain clinic notes -Verapamil headache prophylaxis ER 120 mg every morning Sedation: Versed infusion: Discontinued Analgesia: Fentanyl infusion: Discontinued Polypharmacy: Considering creatinine clearance to be 33 -Discontinuing Remeron, this also prolonged QTC -Discontinuing Valium at this time -Prednisone 60 mg today then taper by decreasing by 10 mg every 2 days to baseline dose -Holding verapamil while unable to swallow -Not continuing sumatriptan as needed headache at this time Patient at high risk for adverse effects secondary to long-term chronic narcotics, already has prolonged QTC, at high risk for hypercarbic respiratory failure with severe end-stage COPD and chronic kidney disease which could allow metabolites to accumulate -Decreasing methadone to 25 mg History right eye vitreous hemorrhage -Seen by ophthalmology on last admission -Per discharge instructions holding Plavix will ultimately need follow -up with retinal specialist Resp: Acute hypoxic respiratory failure secondary to aspiration: Improving -Imipenem for gram-negative and anaerobic coverage for possible pneumonia secondary to aspiration and history of ESBL -Aggressive pulmonary toilet, noninvasive mechanical ventilation as recommended Oxygen dependent COPD and emphysema -Consistent with gold stage IV CV: History hypertension, history renal artery stenosis status post stenting -Per records July 2017 patient was on Coreg 25 mg twice daily, nifedipine 30 mg XR once daily and hydralazine 10 mg p.o. 3 times daily and Lasix -Not continuing hydralazine at this time -Blood pressure improved, consider reinstitution of nifedipine once able to swallow pills History chronic diastolic heart failure -Continue Coreg History hyperlipidemia Hypertriglyceridemia -July 28, 2016 LDL 141 -Continue Coreg -Adding statin, unable to find contraindication in medical records at this time -20 mg Crestor -Fasting lipid profile reviewed December 27, 2017 Prolonged QTC -Likely medication induced -Continue to monitor closely Fluids/Renal: Chronic kidney disease stage III -Estimated GFR approximately 33 -Discontinuing additional IV fluids Lactic acidosis: Resolved ID: Aspiration pneumonia -Continue single agent coverage with imipenem -Patient does have Pseudomonas risk however based on hospital antibiogram double coverage not indicated History recurrent UTI -Given fosfomycin on previous admission History ESBL E. coli in urine culture August 2017 -Single blood culture positive for gram-positive cocci -Urine culture: Intubating microscopic growth -Second blood culture remains negative discontinuing vancomycin -Reviewed infectious disease progress note -Awaiting final cultures GI/Nutrition: N.p.o. Protonix for prophylaxis -Discontinue Zofran secondary to QTC concerns Heme: History macrocytic anemia -B12 and folate pending -When able to take p.o. would reinstitute daily multivitamin folic acid Endocrine: History hyperparathyroidism -Continue calcitonin Vascular access: Peripheral IVs Code Status: DO NOT RESUSCITATE in event of cardiac arrest, patient comfortable with short-term intubation in event of respiratory insufficiency. This was confirmed during this admission with the assistance of palliative care. Patient has been evaluated by speech and language therapy multiple times. It is been well established that the patient is at high risk for aspiration. It is also well documented that the patient does not follow medical advice with regards to texture and conditions to prevent aspiration. She has had known esophageal dysfunction since 2013. In review of notes and given recurrent pneumonias I am concerned the patient has significant chronic swallowing difficulties that have likely contributed to numerous clinical pneumonias. This is approaching an end-stage medical condition. Without continued intervention and following recommendations the patient will most assuredly continue to aspirate and continue to have pulmonary infections in the setting of significant COPD and oxygen dependent emphysema. Speech therapy has been consulted for continued therapy, palliative care consult to discuss goals of care with the patient. Patient is highly complex stable for transfer to telemetry given prolonged QTC and risk for cardiac dysrhythmia, I feel the prolonged QT interval is likely secondary to chronic narcotic dependence Consults & Procedures Consultants: Infectious disease: Cherelle Data Medications: Current Inpatient Medications Medications (Trade) Dose Ordered Sig/Estephania Route Start Time Stop Time Status Last Admin Dose Admin Acetaminophen (Tylenol Tab) 650 mg Q4H PRN PO 12/26/17 22:45 01/25/18 22:44 Allopurinol (Zyloprim Tab) 100 mg BID PO 12/27/17 09:00 01/26/18 08:59 12/29/17 08:22 100 MG Calcitonin Guadalupe (Fortical Nasal Maurepas) 1 spray QAM ERIC 12/27/17 09:00 01/26/18 08:59 12/29/17 08:23 1 SPRAY Carvedilol (Coreg Tab) 25 mg BID PO 12/27/17 09:00 01/26/18 08:59 12/29/17 08:22 25 MG Salmeterol Xinafoate/ Fluticasone (Advair Diskus 250/50 Inh) 1 puff BID INH 12/27/17 09:00 01/26/18 08:59 12/29/17 08:25 1 PUFF Albuterol Sulfate (Ventolin 0.083% 2.5MG/3ML Neb) 2.5 mg Q4H PRN INH 12/26/17 23:45 01/25/18 23:44 Polyethylene (Miralax Powder Packet) 17 gm BID PRN PO 12/26/17 23:45 01/25/18 23:14 Thiamine HCl 100 mg/Syringe 10 ml @ 2 mls/min QAM IV 12/27/17 09:00 01/26/18 08:59 12/29/17 08:23 2 MLS/MIN Pantoprazole Sodium 40 mg/ Syringe 10 ml @ 5 mls/min BID@0900,2100 IV 12/27/17 09:00 01/26/18 08:59 12/29/17 08:23 5 MLS/MIN Hydralazine HCl (Apresoline Tab) 10 mg TID PO 12/27/17 09:00 01/26/18 08:59 12/29/17 08:23 10 MG Imipenem/ Cilastatin Sodium (Consult) 1 ea UD PRN N/A 12/27/17 08:15 01/26/18 08:14 Methadone HCl (Dolophine Tab) 30 mg TID PO 12/27/17 09:00 01/10/18 08:59 12/29/17 08:24 30 MG Pregabalin (Lyrica Cap) 50 mg BID PO 12/27/17 09:00 01/26/18 08:59 12/29/17 08:24 50 MG Duloxetine HCl (Cymbalta Cap) 20 mg QAM PO 12/27/17 09:00 01/26/18 08:59 12/29/17 08:23 20 MG Baclofen (Lioresal Tab) 5 mg TID PO 12/27/17 09:00 01/26/18 08:59 12/29/17 08:23 5 MG Rosuvastatin Calcium (Crestor Tab) 20 mg QPM PO 12/27/17 21:00 01/26/18 20:59 12/28/17 21:38 20 MG Parenteral Electrolyte Solution 1,000 ml @ 75 mls/hr [id number] IV 12/27/17 09:15 01/26/18 09:14 12/28/17 11:15 75 MLS/HR Enoxaparin Sodium (Lovenox Inj) 30 mg HS SQ 12/27/17 21:00 01/26/18 20:59 12/28/17 21:35 30 MG Prednisone (PredniSONE TAB) 50 mg Taper QAM PO 12/28/17 09:00 01/07/18 08:59 12/29/17 08:23 50 MG Prednisone (PredniSONE TAB) 5 mg QAM PO 01/07/18 09:00 01/08/18 09:01 Prednisone (PredniSONE TAB) 2.5 mg QAM PO 01/09/18 09:00 02/08/18 08:59 Imipenem/ Cilastatin Sodium 300 mg/Dextrose 106 ml @ 106 mls/hr Q6H IV 12/27/17 14:00 01/03/18 07:59 12/29/17 08:23 106 MLS/HR Docusate Sodium (coLACE SYRUP) 100 mg BID PO 12/27/17 21:00 01/25/18 23:14 12/29/17 08:22 100 MG Heparin Sodium (Porcine) (Heparin 10 Unit/ ml 5 ml Flush) 5 ml PRN PRN FLUSH 12/27/17 23:15 01/26/18 23:14 Albuterol/ Ipratropium (Duoneb) 3 ml QIDR INH 12/28/17 16:00 01/27/18 15:59 12/29/17 07:09 3 ML Vital Signs: Date Time Temp Pulse Resp B/P (MAP) Pulse Ox O2 Delivery O2 Flow Rate FiO2 12/29/17 07:12 81 20 93 Nasal Cannula 4.0 12/29/17 06:00 85 20 151/101 (118) 89 Nasal Cannula 4.0 12/29/17 05:00 71 18 170/86 (114) 90 Nasal Cannula 4.0 12/29/17 04:00 36.4 77 20 194/110 (138) 91 Nasal Cannula 4.0 12/29/17 03:00 87 20 162/93 (116) 89 Nasal Cannula 4.0 12/29/17 02:00 81 20 90 Nasal Cannula 4.0 12/29/17 01:00 82 20 91 Nasal Cannula 4.0 12/29/17 00:02 36.5 79 20 189/76 (113) 92 Nasal Cannula 4.0 12/28/17 23:00 78 20 166/75 (105) 90 Nasal Cannula 4.0 12/28/17 21:00 85 18 166/70 (102) 92 Nasal Cannula 4.0 12/28/17 20:00 36.4 79 16 170/91 (117) 89 Nasal Cannula 4.0 12/28/17 20:00 91 Nasal Cannula 4.0 12/28/17 19:33 80 20 93 Nasal Cannula 4.0 12/28/17 19:00 85 166/71 (102) 93 12/28/17 18:01 75 125/93 (104) 90 12/28/17 18:00 74 89 12/28/17 17:01 76 145/90 (108) 90 12/28/17 17:00 77 91 12/28/17 16:02 72 149/76 (100) 93 12/28/17 16:00 76 94 12/28/17 15:30 36.4 72 14 166/82 (110) 92 BiPAP 40 12/28/17 15:02 76 166/82 (110) 91 12/28/17 15:00 78 93 12/28/17 14:17 77 122/79 (93) 91 12/28/17 14:00 76 91 12/28/17 13:26 36.6 78 14 167/69 (101) 95 BiPAP 50 12/28/17 13:15 75 167/79 (108) 95 12/28/17 13:02 79 132/82 (99) 93 12/28/17 13:00 77 93 12/28/17 12:01 77 116/83 (94) 92 12/28/17 12:00 75 92 12/28/17 11:48 36.4 76 14 125/71 (89) 93 BiPAP 50 12/28/17 11:30 71 93 12/28/17 11:20 97 94 50 12/28/17 11:01 72 125/71 (89) 94 12/28/17 10:30 73 93 12/28/17 10:01 68 112/81 (91) 91 12/28/17 10:00 36.4 68 16 112/81 (91) 91 BiPAP 60 12/28/17 09:30 67 92 Laboratory Results: Last 24 Hours Test 12/28/17 11:10 12/28/17 11:59 12/29/17 04:15 Bedside Glucose 88 mg/dl Random Vancomycin Level 20.7 mcg/ml White Blood Count 22.49 K/uL Red Blood Count 3.52 M/uL Hemoglobin 10.6 g/dL Hematocrit 33.3 % Mean Corpuscular Volume 94.6 fL Mean Corpuscular Hemoglobin 30.1 pg Mean Corpuscular Hemoglobin Concent 31.8 g/dl Platelet Count 124 K/uL Mean Platelet Volume 13.0 fL Neutrophils (%) (Auto) 89.6 % Lymphocytes (%) (Auto) 5.6 % Monocytes (%) (Auto) 3.6 % Eosinophils (%) (Auto) 0.0 % Basophils (%) (Auto) 0.1 % Neutrophils # (Auto) 20.17 K/uL Lymphocytes # (Auto) 1.25 K/uL Monocytes # (Auto) 0.80 K/uL Eosinophils # (Auto) 0.01 K/uL Basophils # (Auto) 0.02 K/uL RDW Standard Deviation 57.6 fL RDW Coefficient of Variation 16.9 % Immature Granulocyte % (Auto) 1.1 % Immature Granulocyte # (Auto) 0.24 K/uL Sodium Level 142 mmol/L Potassium Level 3.8 mmol/L Chloride Level 108 mmol/L Carbon Dioxide Level 31 mmol/L Anion Gap 3.0 mmol/L Blood Urea Nitrogen 31 mg/dl Creatinine 1.04 mg/dl Est Creatinine Clear Calc Drug Dose 39.7 ml/min Estimated GFR () 63.0 Estimated GFR (Non- 54.4 BUN/Creatinine Ratio 30.0 Random Glucose 81 mg/dl Calcium Level 7.9 mg/dl Procalcitonin 0.34 ng/ml
--- NOTE | 2017-12-29 13:35 | DIAGNOSTIC IMAGING REPORT ---
VIDEO SWALLOW HISTORY: Recurrent pneumonia. Possible aspiration. TECHNIQUE: Video fluoroscopic evaluation of swallowing was performed in the AP and lateral projections by the speech pathology staff. The patient is fed nectar-thick and thin liquid barium, a barium coated wafer, and barium pudding. FLUOROSCOPY TIME: 3.4 minutes. NUMBER OF FLUOROSCOPY IMAGES: 0 COMPARISON STUDY: None. FINDINGS: With swallowing thin liquid barium, there was penetration and silent aspiration. When swallowing nectar thick liquids, there was no penetration or aspiration. When swallowing pudding, there was no penetration or aspiration. When swallowing a cracker with paste, there was prolonged mastication. There was no penetration or aspiration. IMPRESSION: 1. Penetration and silent aspiration of thin liquids. 2. Please see the speech pathologist report for detailed findings and recommendations. Electronically signed by: Himanshu Cueto M.D. 12/29/2017 1:34 PM Dictated Date/Time: 12/29/2017 1:32 PM
[2017-12-29] MEDS ORDERED: VANCOMYCIN TROUGH ONE (15:30)
[2017-12-29] MEDS: IPRATROPIUM BROMIDE/ALBUTEROL respimat INH INH SCH ×2 (17:00→20:55)
--- NOTE | 2017-12-29 17:29 | Hospitalist Progress Note ---
Hospitalist Progress Note Date of Service Dec 29, 2017. Subjective Pt evaluation today including: conversation w/ patient, conversation w/ quality improvement consultant (Technology Sales Representative) Voiding: walker catheter in place Patient fully awake and alert, oriented, is coughing up sputum. Is concerned about her constipation. I assured her that she has been having bowel movements while she was intubated. I told her the events of what brought her in. She does not recall any of it. She thinks that taking Valium though probably led to her aspiration. All Other Systems: Reviewed and Negative Objective Vital Signs Date Time Temp Pulse Resp B/P (MAP) Pulse Ox O2 Delivery O2 Flow Rate FiO2 12/29/17 14:00 73 20 148/85 (106) 92 Nasal Cannula 4.0 12/29/17 12:00 36.8 73 20 171/91 (117) 90 Nasal Cannula 4.0 12/29/17 11:15 66 20 91 Nasal Cannula 4.0 12/29/17 11:00 73 174/89 (117) 90 Nasal Cannula 4.0 12/29/17 10:00 74 176/86 (116) 90 Nasal Cannula 4.0 12/29/17 09:00 85 20 163/96 (118) 89 Nasal Cannula 4.0 12/29/17 08:00 Nasal Cannula 4.0 12/29/17 08:00 36.5 48 20 191/96 (127) 90 Nasal Cannula 4.0 12/29/17 08:00 Nasal Cannula 12/29/17 07:12 81 20 93 Nasal Cannula 4.0 12/29/17 06:00 85 20 151/101 (118) 89 Nasal Cannula 4.0 12/29/17 05:00 71 18 170/86 (114) 90 Nasal Cannula 4.0 12/29/17 04:00 36.4 77 20 194/110 (138) 91 Nasal Cannula 4.0 12/29/17 03:00 87 20 162/93 (116) 89 Nasal Cannula 4.0 12/29/17 02:00 81 20 90 Nasal Cannula 4.0 12/29/17 01:00 82 20 91 Nasal Cannula 4.0 12/29/17 00:02 36.5 79 20 189/76 (113) 92 Nasal Cannula 4.0 12/28/17 23:00 78 20 166/75 (105) 90 Nasal Cannula 4.0 12/28/17 21:00 85 18 166/70 (102) 92 Nasal Cannula 4.0 12/28/17 20:00 36.4 79 16 170/91 (117) 89 Nasal Cannula 4.0 12/28/17 20:00 91 Nasal Cannula 4.0 12/28/17 19:33 80 20 93 Nasal Cannula 4.0 12/28/17 19:00 85 166/71 (102) 93 12/28/17 18:01 75 125/93 (104) 90 12/28/17 18:00 74 89 12/28/17 17:01 76 145/90 (108) 90 12/28/17 17:00 77 91 Physical Exam General Appearance: no apparent distress Eyes: normal inspection, sclerae normal ENT: hearing grossly normal Neck: trachea midline Respiratory/Chest: no respiratory distress, no accessory muscle use, + rhonchi (Diffuse) Cardiovascular: regular rate, rhythm, no edema, + systolic murmur Abdomen: normal bowel sounds, non tender, soft (But mildly distended) Extremities: no calf tenderness Neurologic/Psychiatric: alert, normal mood/affect, oriented x 3 Skin: normal color, warm/dry, no rash Laboratory Results Last 24 Hours Test 12/29/17 04:15 White Blood Count 22.49 K/uL Red Blood Count 3.52 M/uL Hemoglobin 10.6 g/dL Hematocrit 33.3 % Mean Corpuscular Volume 94.6 fL Mean Corpuscular Hemoglobin 30.1 pg Mean Corpuscular Hemoglobin Concent 31.8 g/dl Platelet Count 124 K/uL Mean Platelet Volume 13.0 fL Neutrophils (%) (Auto) 89.6 % Lymphocytes (%) (Auto) 5.6 % Monocytes (%) (Auto) 3.6 % Eosinophils (%) (Auto) 0.0 % Basophils (%) (Auto) 0.1 % Neutrophils # (Auto) 20.17 K/uL Lymphocytes # (Auto) 1.25 K/uL Monocytes # (Auto) 0.80 K/uL Eosinophils # (Auto) 0.01 K/uL Basophils # (Auto) 0.02 K/uL RDW Standard Deviation 57.6 fL RDW Coefficient of Variation 16.9 % Immature Granulocyte % (Auto) 1.1 % Immature Granulocyte # (Auto) 0.24 K/uL Sodium Level 142 mmol/L Potassium Level 3.8 mmol/L Chloride Level 108 mmol/L Carbon Dioxide Level 31 mmol/L Anion Gap 3.0 mmol/L Blood Urea Nitrogen 31 mg/dl Creatinine 1.04 mg/dl Est Creatinine Clear Calc Drug Dose 39.7 ml/min Estimated GFR () 63.0 Estimated GFR (Non- 54.4 BUN/Creatinine Ratio 30.0 Random Glucose 81 mg/dl Calcium Level 7.9 mg/dl Procalcitonin 0.34 ng/ml Assessment and Plan This pt is a 72yo female with a h/o HTN, HPL, secondary hyperparathyroidism, CKD III, gout, chronic diastolic CHF, COPD - O2-dependent/chronic hypoxic respiratory failure, bronchiectasis and recurrent pneumonia, depression, severe osteoporosis complicated by multiple fractures, chronic back/hip pain on methadone, and recurrent UTI (U cx in 08/2017 pos. for Ecoli ESBL), constipation , with recent admission for intractable headache and just discharged the day prior to admission. Patient became unresponsive and developed respiratory distress during dinner most likely secondary to an aspiration event s/p intubation in the ER for acute on chronic hypoxic respiratory failure and unresponsiveness. Neuro-patient now extubated and off sedation, acute encephalopathy is resolved. CT head negative on admission. Patient with history of chronic pain syndrome on methadone, history of intractable headache which was evaluated by Neurology at previous visit. Was placed on Valium with complete relief of her headaches, and restarted on Lyrica for peripheral neuropathy with relief. Acute metabolic and toxic encephalopathy-now resolved Depression -continue on Cymbalta, Remeron is on hold for prolonged QT -Would not restart Valium -Chronic pain -continue methadone -restarted Cymbalta at lower dose of 20 due to prolonged QT, continue Lyrica and Baclofen for neuropathy and back pain although baclofen at a lower dose of 5 mg 3 times daily rather than 10 from home -holding Verapamil for headache prophylaxis after having low BPs-blood pressure is good now, will restart verapamil in the morning -Continue Prednisone 50 mg po daily and taper down as per plan from recent discharge for headaches. Plan to decrease by 10mg/day every two days until back to maintenance dose of 2.5mg. 2. Cardiovascular - patient hemodynamically stable at present. No evidence of ischemia on EKG. Patient with history of HTN, HLP, chronic diastolic CHF. Per prior records patients blood pressure is very labile and highly responsive to PRN agents. She did have some hypotension the first night after receiving hydralazine 10mg per OGT, BPs now improved and still somewhat elevated at times Troponin negative With prolonged QTc persistently on ECG-today 490 -Continue Coreg 25mg po BID -continue Hydralazine 10mg po TID -Technology Sales Representative started her on Crestor 20mg -Avoid IV hydralazine if possible she is sensitive to this -Avoiding QT prolonging medications-holding Remeron, decreased Cymbalta dose -Had right vitreous hemorrhage on last admission-is to follow-up with retinal specialist after discharge-holding Plavix at this time 3. Pulmonary - patient intubated for hypoxic respiratory failure in setting of probable aspiration event. Now extubated and weaned back to her usual nasal cannula. Doing well. Elevated WBC count at 18.79 on admission, today at 20 2K , but also on steroids, CXR suggestive of PNA vs chemical pneumonitis. History of COPD on home O2. History of bronchiectasis with recurrent PNA. Repeat CXR 12/28 with improved aeration left base Repeat CXR 12/29 with small left pleural effusion -Continue supplemental O2 via nasal cannula -continue on Imipenem for aspiration and can switch to Augmentin tomorrow to complete a 7 day course-today's day #4 -Continue Fluticasone/Salmeterol -Continue bronchodilators-changed Combivent 1 puff 4 times daily as per home dosing, dc'd Spiriva as does not need Spiriva if his on [id number] dosing of Combivent -Continue Prednisone 50 mg po daily - plan to decrease by 10mg every two days until reach 2.5mg daily -follow BCxs and bronchoscopy cxs-light normal chaitanya 4. GI - stable. patient with history of duodenal bulb ulcer. Had severe constipation last admission which was resolving prior to discharge, but with KUB here still full of stool. Has had several bowel movements since admission -Aspirates thin liquids and video swallow today-with moderate oropharyngeal dysphagia-speech therapist recommendation: 1. MOIST regular diet and NECTAR-THICK LIQUIDS 2. Aspiration precautions: ORAL HYGIENE (prior to intake in the morning, after meals and before bed); alternate solids and liquids during meals; keep head of bed elevated AT LEAST 30-degrees at all times -continue Protonix but change to p.o. from IV today -Bowel regimen with Colace BID and make MiraLAX scheduled twice daily -Removed NG tube 5. - patient with history of CKD Stage III. BUN of 45, Cr of 1.3 on admission and now improved to 1.04. Mildly elevated K at 5.7 on admission and now improved to 3.8. No EKG changes -Repeat PRP in AM -Avoid nephrotoxic agents -Renal dosing to all medications -Continue to monitor BUN, Cr, electrolytes and UOP 6. Heme - H/H stable, patient with history of anemia, macrocytic with MCV of 100.2, hgb fairly stable at 10.3 B12 and Folate-low end of normal -Continue to monitor -Consider replacement of B12 and folate 7. ID - concern for aspiration PNA vs chemical pneumonitis. Chest x-ray with persistent infiltrate but is improving -Continue imipenem as above and switch to Augmentin tomorrow -History of MRSA and ESBL UTIs, UA negative. Contact precautions -follow CBC -Blood culture 1/2 on admission with a contaminant of coag negative staph, repeat blood cultures negative -Urine culture with alpha strep, not enterococcus-this would be adequately covered with current antibiotic therapy 8. Endocrine - history of hyperparathyroidism, osteoporosis with multiple fractures -Continue calcitonin spray -Restart vitamin D 4000 units once daily 9. Rheum - history of gout -Continue Allopurinol 100mg po BID 10. F/E/N - heplock. Monitor electrolytes and replete as needed. Continue Thiamine but can transition back to p.o. for tomorrow 11. Ppx - Lovenox for DVT, Protonix at home dose BID 12. Code -palliative care consultation obtained and patient wishes to be changed to DNR in the case of cardiac arrest, but would be okay with elective intubation 13. Dispo -transition to telemetry unit
--- NOTE | 2017-12-29 20:12 | Infectious Disease Progress Nt ---
Progress Note Date of Service Dec 29, 2017. Subjective Pt evaluation today including: conversation w/ patient, physical exam, chart review, lab review, review of studies, conversation w/ real estate consultant, review of inpatient medication list Patient has been extubated successfully, respiratory status appears stable, does not remember events leading up to admission. Remains afebrile. All Other Systems: Reviewed and Negative Medications Current Inpatient Medications Medications (Trade) Dose Ordered Sig/Estephania Route Start Time Stop Time Status Last Admin Dose Admin Acetaminophen (Tylenol Tab) 650 mg Q4H PRN PO 12/26/17 22:45 01/25/18 22:44 Allopurinol (Zyloprim Tab) 100 mg BID PO 12/27/17 09:00 01/26/18 08:59 12/29/17 08:22 100 MG Calcitonin [place] (Fortical Nasal [place]) 1 spray QAM ERIC 12/27/17 09:00 01/26/18 08:59 12/29/17 08:23 1 SPRAY Carvedilol (Coreg Tab) 25 mg BID PO 12/27/17 09:00 01/26/18 08:59 12/29/17 08:22 25 MG Salmeterol Xinafoate/ Fluticasone (Advair Diskus 250/50 Inh) 1 puff BID INH 12/27/17 09:00 01/26/18 08:59 12/29/17 08:25 1 PUFF Albuterol Sulfate (Ventolin 0.083% 2.5MG/3ML Neb) 2.5 mg Q4H PRN INH 12/26/17 23:45 01/25/18 23:44 Hydralazine HCl (Apresoline Tab) 10 mg TID PO 12/27/17 09:00 01/26/18 08:59 12/29/17 14:15 10 MG Imipenem/ Cilastatin Sodium (Consult) 1 ea UD PRN N/A 12/27/17 08:15 12/30/17 04:00 Pregabalin (Lyrica Cap) 50 mg BID PO 12/27/17 09:00 01/26/18 08:59 12/29/17 08:24 50 MG Duloxetine HCl (Cymbalta Cap) 20 mg QAM PO 12/27/17 09:00 01/26/18 08:59 12/29/17 08:23 20 MG Baclofen (Lioresal Tab) 5 mg TID PO 12/27/17 09:00 01/26/18 08:59 12/29/17 14:15 5 MG Rosuvastatin Calcium (Crestor Tab) 20 mg QPM PO 12/27/17 21:00 01/26/18 20:59 12/28/17 21:38 20 MG Enoxaparin Sodium (Lovenox Inj) 30 mg HS SQ 12/27/17 21:00 01/26/18 20:59 12/28/17 21:35 30 MG Prednisone (PredniSONE TAB) 50 mg Taper QAM PO 12/28/17 09:00 01/07/18 08:59 12/29/17 08:23 50 MG Prednisone (PredniSONE TAB) 5 mg QAM PO 01/07/18 09:00 01/08/18 09:01 Prednisone (PredniSONE TAB) 2.5 mg QAM PO 01/09/18 09:00 02/08/18 08:59 Imipenem/ Cilastatin Sodium 300 mg/Dextrose 106 ml @ 106 mls/hr Q6H IV 12/27/17 14:00 12/30/17 04:00 12/29/17 14:14 106 MLS/HR Docusate Sodium (coLACE SYRUP) 100 mg BID PO 12/27/17 21:00 01/25/18 23:14 12/29/17 08:22 100 MG Heparin Sodium (Porcine) (Heparin 10 Unit/ ml 5 ml Flush) 5 ml PRN PRN FLUSH 12/27/17 23:15 01/26/18 23:14 Methadone HCl (Dolophine Tab) 25 mg TID PO 12/29/17 14:00 01/10/18 08:59 12/29/17 14:16 25 MG Albuterol/ Ipratropium (Combivent Respimat Inh) 1 puffs QID INH 12/29/17 17:00 01/28/18 16:59 12/29/17 17:00 1 PUFFS Polyethylene (Miralax Powder Packet) 17 gm BID PO 12/29/17 21:00 01/25/18 23:14 Verapamil HCl (Calan-Sr Tab) 120 mg QAM PO 12/30/17 09:00 01/29/18 08:59 Pantoprazole Sodium (Protonix Tab) 40 mg BID PO 12/29/17 21:00 01/28/18 20:59 Thiamine HCl (Vitamin B-1 Tab) 200 mg QAM PO 12/30/17 09:00 01/29/18 08:59 Cholecalciferol (Vitamin D Tab) 4,000 inter.unit QAM PO 12/30/17 09:00 01/29/18 08:59 Amoxicillin/ Clavulanate Potassium (Augmentin Tab) 875 mg BIDM PO 12/30/17 07:30 01/06/18 07:29 Objective Vital Signs Date Time Temp Pulse Resp B/P (MAP) Pulse Ox O2 Delivery O2 Flow Rate FiO2 12/29/17 20:01 36.6 70 20 195/118 (143) 95 Nasal Cannula 4.0 12/29/17 16:00 36.6 72 18 149/127 (134) 94 Nasal Cannula 4.0 12/29/17 16:00 Nasal Cannula 4.0 12/29/17 14:00 73 20 148/85 (106) 92 Nasal Cannula 4.0 12/29/17 12:00 36.8 73 20 171/91 (117) 90 Nasal Cannula 4.0 12/29/17 11:15 66 20 91 Nasal Cannula 4.0 12/29/17 11:00 73 174/89 (117) 90 Nasal Cannula 4.0 12/29/17 10:00 74 176/86 (116) 90 Nasal Cannula 4.0 12/29/17 09:00 85 20 163/96 (118) 89 Nasal Cannula 4.0 12/29/17 08:00 Nasal Cannula 4.0 12/29/17 08:00 36.5 48 20 191/96 (127) 90 Nasal Cannula 4.0 12/29/17 08:00 Nasal Cannula 12/29/17 07:12 81 20 93 Nasal Cannula 4.0 12/29/17 06:00 85 20 151/101 (118) 89 Nasal Cannula 4.0 12/29/17 05:00 71 18 170/86 (114) 90 Nasal Cannula 4.0 12/29/17 04:00 36.4 77 20 194/110 (138) 91 Nasal Cannula 4.0 12/29/17 03:00 87 20 162/93 (116) 89 Nasal Cannula 4.0 12/29/17 02:00 81 20 90 Nasal Cannula 4.0 12/29/17 01:00 82 20 91 Nasal Cannula 4.0 12/29/17 00:02 36.5 79 20 189/76 (113) 92 Nasal Cannula 4.0 12/28/17 23:00 78 20 166/75 (105) 90 Nasal Cannula 4.0 12/28/17 21:00 85 18 166/70 (102) 92 Nasal Cannula 4.0 Physical Exam General Appearance: no apparent distress, + pertinent finding (chronically-ill appearing) Eyes: normal inspection, EOMI, sclerae normal ENT: normal ENT inspection, pharynx normal Neck: supple, no adenopathy, thyroid normal, trachea midline Respiratory/Chest: chest non-tender, no respiratory distress, no accessory muscle use, + rhonchi Cardiovascular: regular rate, rhythm, no gallop, + systolic murmur Abdomen: normal bowel sounds, non tender, soft, no organomegaly Extremities: non-tender, no calf tenderness Neurologic/Psychiatric: alert, oriented x 3 Skin: normal color, warm/dry, no rash Lymphatic: no adenopathy Laboratory Results RUN DATE: 12/29/17 [facility] LAB PAGE 1 RUN TIME: 1207 Specimen Inquiry PATIENT: GRICELDA PEREZ LOC: [facility] U # : [id number] AGE/SX: 72/F ROOM: [facility] REG : 12/26/[address]: Elenita Rowe MD : 1945 BED: 1 DIS : STATUS: ADM IN TLOC: SPEC #: [id number] CINDY: 12/27/17 STATUS: COMP REQ #: [id number] RECD: 12/27/[address] [facility] [address]: Ad Pradhan , D.O. SOURCE: [facility]: 12/27/[address]: Ab Villarreal MD SPDC: Bela Burris D.OElenita Mccarthy MD [place], [place] ORDERED: [facility] CUL/SM Procedure Result Verified Site GRAM STAIN Final 12/28/17 RESULT MANY POLYS FEW GRAM POSITIVE COCCI FEW YEAST RARE GRAM NEGATIVE COCCI BRONCH WASH CULTURE Final 12/29/171207 LIGHT NORMAL ZEE. Last 24 Hours Test 12/29/17 04:15 White Blood Count 22.49 K/uL Red Blood Count 3.52 M/uL Hemoglobin 10.6 g/dL Hematocrit 33.3 % Mean Corpuscular Volume 94.6 fL Mean Corpuscular Hemoglobin 30.1 pg Mean Corpuscular Hemoglobin Concent 31.8 g/dl Platelet Count 124 K/uL Mean Platelet Volume 13.0 fL Neutrophils (%) (Auto) 89.6 % Lymphocytes (%) (Auto) 5.6 % Monocytes (%) (Auto) 3.6 % Eosinophils (%) (Auto) 0.0 % Basophils (%) (Auto) 0.1 % Neutrophils # (Auto) 20.17 K/uL Lymphocytes # (Auto) 1.25 K/uL Monocytes # (Auto) 0.80 K/uL Eosinophils # (Auto) 0.01 K/uL Basophils # (Auto) 0.02 K/uL RDW Standard Deviation 57.6 fL RDW Coefficient of Variation 16.9 % Immature Granulocyte % (Auto) 1.1 % Immature Granulocyte # (Auto) 0.24 K/uL Sodium Level 142 mmol/L Potassium Level 3.8 mmol/L Chloride Level 108 mmol/L Carbon Dioxide Level 31 mmol/L Anion Gap 3.0 mmol/L Blood Urea Nitrogen 31 mg/dl Creatinine 1.04 mg/dl Est Creatinine Clear Calc Drug Dose 39.7 ml/min Estimated GFR () 63.0 Estimated GFR (Non- 54.4 BUN/Creatinine Ratio 30.0 Random Glucose 81 mg/dl Calcium Level 7.9 mg/dl Procalcitonin 0.34 ng/ml Patient Name: GRICELDA PEREZ Unit Number: [id number] Dictated: 12/29/171331 Transcribed: 12/29/171331 ARG Printed Date/Time: [~ rep prt dt]/[~ rep prt tm] [~ rep ct labl] - [~ rep ct ivnm] [facility] [place] [address] Dictated: 08/03/18 1332 Transcribed: 12/29/17 1332 ARG Printed Date/Time: [~ rep prt dt]/[~ rep prt tm] [~ rep ct labl] - [~ rep ct ivnm] [~ rep ct add3]] VIDEO SWALLOW HISTORY: Recurrent pneumonia. Possible aspiration. TECHNIQUE: Video fluoroscopic evaluation of swallowing was performed in the AP and lateral projections by the speech pathology staff. The patient is fed nectar-thick and thin liquid barium, a barium coated wafer, and barium pudding. FLUOROSCOPY TIME: 3.4 minutes. NUMBER OF FLUOROSCOPY IMAGES: 0 COMPARISON STUDY: None. FINDINGS: With swallowing thin liquid barium, there was penetration and silent aspiration. When swallowing nectar thick liquids, there was no penetration or aspiration. When swallowing pudding, there was no penetration or aspiration. When swallowing a cracker with paste, there was prolonged mastication. There was no penetration or aspiration. IMPRESSION: 1. Penetration and silent aspiration of thin liquids. 2. Please see the speech pathologist report for detailed findings and recommendations. Electronically signed by: Himanshu Cueto M.D. 12/29/2017 1:34 PM Dictated Date/Time: 12/29/2017 1:32 PM The status of this report is Signed. Draft = Not yet reviewed or approved by Radiologist. Signed = Reviewed and approved by Radiologist. <AttendingPhy>Elenita Rowe MD</AttendingPhy> <FamilyPhy>HeartMarti johnston</FamilyPhy> <PrimaryPhy>HeartMarti johnston</PrimaryPhy> <UnitNumber> [id number]</UnitNumber> <VisitNumber>[id number]</VisitNumber> <PatientName> PEREZGRICELDA</PatientName> <DateOfBirth>1945</DateOfBirth> <Location> C[facility]</Location> <ServiceDate>12/26/17</ServiceDate> <MNE>ESINDI</MNE> < OrderingPhy>Ad Pradhan D.O.</OrderingPhy> <OrderingPhyMNE>f rep ord dr perez</OrderingPhyMNE> <DictatingPhyMNE>f rep dict dr perez</DictatingPhyMNE> < CCListMNE>f rep ct mne</CCListMNE> <AdmittingPhyMNE>f pt admit dr perez</ AdmittingPhyMNE> <AttendingPhyMNE>f pt attend dr perez</AttendingPhyMNE> <ConsultingPhyMNE>f pt consult dr perez</ConsultingPhyMNE> <FamilyPhyMNE>f pt fam dr perez</FamilyPhyMNE> <OtherPhyMNE>f pt other dr perez</OtherPhyMNE> < PrimaryPhyMNE>f pt prim care dr perez</PrimaryPhyMNE> <ReferringPhyMNE>f pt referring dr perez</ReferringPhyMNE> Assessment and Plan 72-year-old female with acute aspiration pneumonia with respiratory failure. Patient improving steadily, likely can transition to oral Abx tomorrow with Augmentin if remains stable and afebrile. Will follow.
[2017-12-29] MEDS: ROSUVASTATIN CALCIUM 20 MG TAB PO SCH (21:00)
[2017-12-29] MEDS: PANTOprazole SOD 40 MG TAB PO SCH (21:02)
[2017-12-29] MEDS: ENOXAPARIN 30 MG/0.3 ML SYR SQ SCH (21:06)
[2017-12-30] VITALS (11 sets, daily range): BP systolic 156–197; BP diastolic 85–117; PULSE 71–85; TEMP 36.4–36.9; O2SAT 90–94
[2017-12-30] MEDS: PREGABALIN 50 MG CAP PO SCH ×2 (00:22→09:19)
[2017-12-30] MEDS: ALLOPURINOL 100 MG TAB PO SCH ×3 (00:23→22:12)
[2017-12-30] MEDS: POLYETHYLENE (MIRALAX) 17 GM PACK PO SCH ×3 (00:23→22:11)
[2017-12-30] MEDS ORDERED: HydrALAZINE HCL 20 MG/ML VIAL IV. STA (01:08)
[2017-12-30] MEDS: IMIPENEM/CILASTATIN IV 300 MG in DEXTROSE 5% 100ML 100 ML IV SCH (01:30)
[2017-12-30 06:52] LABS: MEAN CORPUSCULAR HGB CONC 30.4 g/dl (32-36)
[2017-12-30 07:01] LABS: HEMATOCRIT 37.2 % (37-47); HEMOGLOBIN 11.3 g/dL (12.0-16.0); MEAN CELL VOLUME 94.9 fL (80-100); MEAN CORPUSCULAR HEMOGLOBIN 28.8 pg (25-34); RED CELL DISTRIBUTION WIDTH CV 16.8 % (11.5-14.5); RED CELL DISTRIBUTION WIDTH SD 57.7 fL (36.4-46.3); WHITE BLOOD COUNT 22.46 K/uL (4.8-10.8)
[2017-12-30 07:13] LABS: MEAN PLATELET VOLUME 12.9 fL (7.4-10.4); PLATELET COUNT 149 K/uL (130-400)
[2017-12-30 07:15] LABS: BASO ABS # 0.01 K/uL (0-0.2); EOS % 0.3 %; EOS ABS # 0.06 K/uL (0-0.5); IG# 0.34 K/uL (0.00-0.02); LYMPH % 2.6 %; LYMPH ABS # 0.58 K/uL (1.2-3.4); MONO % 8.1 %; MONO ABS # 1.81 K/uL (0.11-0.59); NEUT % 87.5 %; NEUT ABS # 19.66 K/uL (1.4-6.5)
[2017-12-30 07:29] LABS: CALCIUM 8.9 mg/dl (8.5-10.1); CREATININE 0.85 mg/dl (0.60-1.20); POTASSIUM 3.3 mmol/L (3.5-5.1)
[2017-12-30] MEDS: FLUTICASONE/SALMETEROL 250/50 (ADVAIR) 14 PUFF/1 INHALER INH SCH ×2 (09:15→22:00)
[2017-12-30] MEDS ORDERED: POTASSIUM CHLORIDE 20 MEQ TABCR PO ONE (09:15)
[2017-12-30] MEDS ORDERED: CYANOCOBALAMIN 500 MCG TAB (VIT B-12) PO ONE (09:15)
[2017-12-30] MEDS ORDERED: HydrALAZINE 10 MG TAB PO ONE (09:15)
[2017-12-30] MEDS: AMOXICILLIN/CLAVULANATE TAB 875 MG TAB PO SCH ×2 (09:15→16:07)
[2017-12-30] MEDS: DOCUSATE SODIUM 100 MG/10 ML UDC PO SCH ×2 (09:16→22:08)
[2017-12-30] MEDS: IPRATROPIUM BROMIDE/ALBUTEROL respimat INH INH SCH ×2 (09:16→13:00)
[2017-12-30] MEDS: VERAPAMIL HCL 120 MG TABCR PO SCH (09:16)
[2017-12-30] MEDS: CALCITONIN SALMON NA 200 IU/AC 3.7 ML BTL NAE SCH (09:16)
[2017-12-30] MEDS: CARVEDILOL 25 MG TAB PO SCH ×2 (09:17→22:06)
[2017-12-30] MEDS: DULOXETINE HCL 20 MG CAP PO SCH (09:18)
[2017-12-30] MEDS: METHADONE HCL 10 MG TAB PO SCH ×3 (09:18→22:09)
[2017-12-30] MEDS: BACLOFEN 10 MG TAB PO SCH ×3 (09:19→22:10)
[2017-12-30] MEDS: PANTOprazole SOD 40 MG TAB PO SCH ×2 (09:20→22:11)
[2017-12-30] MEDS: THIAMINE HCL 100 MG TAB PO SCH (09:21)
[2017-12-30] MEDS: CHOLECALCIFEROL 1000 INTER.UNIT TAB PO SCH (09:21)
[2017-12-30] MEDS ORDERED: ALBUT/IPRATROP 3MG/0.5MG NEB 3 ML VIAL INH PRN (14:30)
[2017-12-30] MEDS ORDERED: POTASSIUM CHLORIDE 20 MEQ TABCR PO SCH (15:00)
[2017-12-30] MEDS: ALBUT/IPRATROP 3MG/0.5MG NEB 3 ML VIAL INH SCH ×2 (15:14→19:02)
[2017-12-30] MEDS: HydrALAZINE 10 MG TAB PO SCH ×2 (16:04→22:05)
--- NOTE | 2017-12-30 16:07 | DIAGNOSTIC IMAGING REPORT ---
SINGLE VIEW CHEST CLINICAL HISTORY: Dyspnea. Recent aspiration. FINDINGS: 2 AP, portable, upright chest radiographs are compared to study dated 12/29/2017 and correlated with chest CT dated 08/10/2017. The examination is degraded by portable technique and patient rotation. A right PICC line is unchanged in position. The heart is enlarged and there is atherosclerotic calcification of the thoracic aorta. There is pulmonary vascular congestion, new from yesterday. Mild interstitial edema is observed. There is bibasilar atelectasis. No large pleural effusion or pneumothorax is seen. The skeletal structures are osteopenic. There are numerous healed bilateral rib fractures. Postoperative changes partially visualized in the left humerus. Numerous compression deformities are identified in the thoracic spine with evidence of previous multilevel vertebroplasty. IMPRESSION: 1. Cardiomegaly with evidence of mild congestive failure. This is new from yesterday. 2. No airspace consolidation or large pleural effusion is identified. Electronically signed by: Tej Bernard M.D. 12/30/2017 4:06 PM Dictated Date/Time: 12/30/2017 4:03 PM
[2017-12-30] MEDS: GUAIFENESIN SUGAR FREE 100 MG/5 ML UDC PO SCH ×2 (16:08→21:59)
[2017-12-30] MEDS ORDERED: POTASSIUM CHLORIDE 20 MEQ TABCR PO STA (16:22)
[2017-12-30] MEDS ORDERED: FUROSEMIDE INJ 20 MG in SYRINGE 0 ML IV ONE (17:00)
--- NOTE | 2017-12-30 19:08 | Progress Note ---
Subjective Date of Service: Dec 30, 2017. Subjective Pt evaluation today including: conversation w/ patient, physical exam, chart review, lab review, review of studies (cxr, video swallow eval), review of inpatient medication list Pain: none reported PO Intake: fair Voiding: incontinence tele stable overnight patient states she is more short of breath today also with cough and considerable sputum production patient asks if I can increase her oxygen on her NC during the visit she was 92% on current NC settings denies significant headache denies abdominal pain Problem List Medical Problems: (1) Abdominal pain Status: Acute (2) Acute kidney injury superimposed on chronic kidney disease Status: Acute (3) Altered mental status Status: Acute (4) Anemia Status: Acute (5) Back pain Status: Acute (6) Bilateral pneumonia Status: Acute (7) CHF (congestive heart failure) Status: Acute (8) Chronic Kidney Disease, Stage Iii (Moderate) Status: Chronic (9) Chronic, continuous use of opioids Status: Acute (10) COPD exacerbation Status: Acute (11) COPD exacerbation Status: Acute (12) Crystal arthritis Status: Chronic (13) Dehydration Status: Acute (14) Dehydration Status: Acute (15) Duodenal bulb ulcer Status: Chronic (16) Dysuria Status: Acute (17) Failure of outpatient treatment Status: Acute (18) Failure of outpatient treatment Status: Acute (19) Gallbladder dilatation Status: Acute (20) Generalized weakness Status: Acute (21) Gout Status: Chronic (22) Hyperlipidemia Nec/Nos Status: Chronic (23) Hypertension Status: Chronic (24) Hypoxemia Status: Acute (25) Hypoxia Status: Acute (26) Hypoxia Status: Acute (27) Hypoxia Status: Acute (28) Hypoxia Status: Acute (29) Lumbar compression fracture Status: Chronic (30) Nausea & vomiting Status: Acute (31) Opiate use Status: Chronic (32) Osteoporosis Status: Chronic (33) Peripheral edema Status: Acute (34) Pneumonia Status: Acute (35) Pneumonia Status: Acute (36) Pneumonia involving right lung Status: Acute (37) Renal insufficiency Status: Acute (38) Respiratory acidosis Status: Acute (39) Respiratory distress Status: Acute (40) Right renal artery stenosis Status: Chronic (41) Secondary hyperparathyroidism Status: Chronic (42) UTI (urinary tract infection) Status: Acute Review of Systems Constitutional: No fever Respiratory: + cough, + sputum, + wheezing, + shortness of breath, + dyspnea at rest, + hemoptysis Cardiac: No chest pain, No orthopnea, No edema Abdomen: + constipation, No pain Objective Vital Signs Date Time Temp Pulse Resp B/P (MAP) Pulse Ox O2 Delivery O2 Flow Rate FiO2 12/30/17 15:57 36.9 75 24 159/107 (124) 91 Nasal Cannula 5.0 Humidified Oxygen 12/30/17 15:14 75 18 93 Nasal Cannula 5.0 12/30/17 12:15 36.4 78 20 156/93 (114) 91 Nasal Cannula 12/30/17 08:00 92 Nasal Cannula 3.0 12/30/17 07:46 36.4 73 18 197/109 (138) 93 12/30/17 04:16 36.4 71 24 180/108 (132) 91 Nasal Cannula 4.0 12/30/17 00:11 36.4 72 23 186/93 (124) 90 Nasal Cannula 4.0 12/29/17 23:17 75 21 91 Nasal Cannula 5.0 12/29/17 20:01 36.6 70 20 195/118 (143) 95 Nasal Cannula 4.0 12/29/17 20:00 88 Nasal Cannula 4.0 Physical Exam General Appearance: no apparent distress, + thin, + pertinent finding ( chronically ill-appearing ) ENT: pharynx normal Neck: + pertinent finding (unable to assess JVD due to body posture) Respiratory/Chest: no respiratory distress, no accessory muscle use, + crackles (minimal bases), + rhonchi, + wheezing (extensive) Cardiovascular: regular rate, rhythm, no gallop, no murmur Abdomen: non tender, no organomegaly, + distended Extremities: no pedal edema Neurologic/Psychiatric: alert, + pertinent finding (recalls my name and recalls things we spoke about 1 week ago but seems slightly confused today) Laboratory Results Last 24 Hours Test 12/30/17 06:26 White Blood Count 22.46 K/uL Red Blood Count 3.92 M/uL Hemoglobin 11.3 g/dL Hematocrit 37.2 % Mean Corpuscular Volume 94.9 fL Mean Corpuscular Hemoglobin 28.8 pg Mean Corpuscular Hemoglobin Concent 30.4 g/dl Platelet Count 149 K/uL Mean Platelet Volume 12.9 fL Neutrophils (%) (Auto) 87.5 % Lymphocytes (%) (Auto) 2.6 % Monocytes (%) (Auto) 8.1 % Eosinophils (%) (Auto) 0.3 % Basophils (%) (Auto) 0.0 % Neutrophils # (Auto) 19.66 K/uL Lymphocytes # (Auto) 0.58 K/uL Monocytes # (Auto) 1.81 K/uL Eosinophils # (Auto) 0.06 K/uL Basophils # (Auto) 0.01 K/uL RDW Standard Deviation 57.7 fL RDW Coefficient of Variation 16.8 % Immature Granulocyte % (Auto) 1.5 % Immature Granulocyte # (Auto) 0.34 K/uL Platelet Estimate NORMAL Sodium Level 141 mmol/L Potassium Level 3.3 mmol/L Chloride Level 103 mmol/L Carbon Dioxide Level 32 mmol/L Anion Gap 6.0 mmol/L Blood Urea Nitrogen 26 mg/dl Creatinine 0.85 mg/dl Est Creatinine Clear Calc Drug Dose 46.6 ml/min Estimated GFR () 80.5 Estimated GFR (Non- 69.4 BUN/Creatinine Ratio 30.8 Random Glucose 83 mg/dl Calcium Level 8.9 mg/dl Assessment and Plan 72yo female with: 1. acute/chronic hypoxic/hypercarbic respiratory failure - acute component 2nd to aspiration pneumonia +/- acute/chronic diastolic CHF. Stable, improving. Was on vent and successfully extubated 12/28/17. 2. b/l pneumonia, most likely aspiration - this occurred in the setting of lethargy/encephalopathy. Seen by speech; video swallow completed; diet modified. Day #5/10 of antibiotic therapy. 3. toxic encephalopathy - due to valium & lyrica pre-hospitalization - resolved. Today she was slightly confused - if this persists then recheck VBG, etc. 4. COPD with exacerbation - continue prednisone taper; quite wheezy today -- change combivent to albuterol-ipratropium nebs q4h. Pulmonary toilet. 5. acute/chronic diastolic CHF - acute dyspnea today likely due to such. Lasix 20mg IV x 1 with K supplementation. 6. recent occipital headache - daily, persistent - improved with use of verapamil prophylaxis. 7. HTN - uncontrolled - increase hydralazine to 20mg TID. 8. DVT proph - lovenox 30mg daily. If hemoptysis persists then hold this medication. 9. hemoptysis - she is s/p bronch earlier this stay without endobronchial lesion. Hemoptysis likely from pneumonia and/or bronchial irritation. Follow. 10. macrocytic anemia with low-normal folate and b12 levels - supplement folate 1mg daily and b12 1000mcg daily. 11. chronic pain syndrome - continue methadone as previous. 12. stage 3 CKD - creatinine stable today. BMP am. 13. hypokalemia - replace; repeat BMP and mag in am. 14. constipation - bowel regimen. PT, OT evals Continued [facility] stay due to: ambulation difficulties, multiple IV medications needed Discharge planning: [facility] facility
[2017-12-30] MEDS: ROSUVASTATIN CALCIUM 20 MG TAB PO SCH (22:09)
[2017-12-30] MEDS: ENOXAPARIN 30 MG/0.3 ML SYR SQ SCH (22:13)
[2017-12-31] VITALS (10 sets, daily range): BP systolic 88–143; BP diastolic 60–93; PULSE 71–86; TEMP 36.8–37.1; O2SAT 91–95
[2017-12-31] MEDS ORDERED: ONDANSETRON INJ 2 MG/ML 2 ML VIAL IV STA (00:57)
[2017-12-31] MEDS: GUAIFENESIN SUGAR FREE 100 MG/5 ML UDC PO SCH ×4 (01:21→21:19)
[2017-12-31 05:45] LABS: MEAN CORPUSCULAR HGB CONC 30.8 g/dl (32-36)
[2017-12-31 06:11] LABS: HEMATOCRIT 35.1 % (37-47); HEMOGLOBIN 10.8 g/dL (12.0-16.0); MEAN CELL VOLUME 96.2 fL (80-100); MEAN CORPUSCULAR HEMOGLOBIN 29.6 pg (25-34); RED CELL DISTRIBUTION WIDTH CV 16.6 % (11.5-14.5); RED CELL DISTRIBUTION WIDTH SD 57.6 fL (36.4-46.3); WHITE BLOOD COUNT 18.42 K/uL (4.8-10.8)
[2017-12-31 06:12] LABS: CALCIUM 8.3 mg/dl (8.5-10.1); CREATININE 1.05 mg/dl (0.60-1.20); POTASSIUM 3.5 mmol/L (3.5-5.1)
[2017-12-31 06:32] LABS: BASO % 0.1 %; BASO ABS # 0.02 K/uL (0-0.2); EOS % 0.3 %; EOS ABS # 0.05 K/uL (0-0.5); IG# 0.25 K/uL (0.00-0.02); LYMPH % 3.4 %; LYMPH ABS # 0.62 K/uL (1.2-3.4); MEAN PLATELET VOLUME 13.6 fL (7.4-10.4); MONO % 11.6 %; MONO ABS # 2.14 K/uL (0.11-0.59); NEUT % 83.2 %; NEUT ABS # 15.34 K/uL (1.4-6.5); PLATELET COUNT 139 K/uL (130-400)
[2017-12-31] MEDS: ALBUT/IPRATROP 3MG/0.5MG NEB 3 ML VIAL INH SCH ×4 (07:06→18:52)
[2017-12-31] MEDS: AMOXICILLIN/CLAVULANATE TAB 875 MG TAB PO SCH ×2 (09:57→15:42)
[2017-12-31] MEDS: FLUTICASONE/SALMETEROL 250/50 (ADVAIR) 14 PUFF/1 INHALER INH SCH ×2 (09:58→21:20)
[2017-12-31] MEDS: CALCITONIN SALMON NA 200 IU/AC 3.7 ML BTL NAE SCH (09:59)
[2017-12-31] MEDS: DOCUSATE SODIUM 100 MG/10 ML UDC PO SCH ×2 (10:00→21:23)
[2017-12-31] MEDS: CARVEDILOL 25 MG TAB PO SCH ×2 (10:00→21:23)
[2017-12-31] MEDS: HydrALAZINE 10 MG TAB PO SCH ×3 (10:00→21:22)
[2017-12-31] MEDS: VERAPAMIL HCL 120 MG TABCR PO SCH (10:00)
[2017-12-31] MEDS: METHADONE HCL 10 MG TAB PO SCH ×3 (10:02→21:25)
[2017-12-31] MEDS: DULOXETINE HCL 20 MG CAP PO SCH (10:02)
[2017-12-31] MEDS: BACLOFEN 10 MG TAB PO SCH ×3 (10:03→21:26)
[2017-12-31] MEDS: POLYETHYLENE (MIRALAX) 17 GM PACK PO SCH ×2 (10:03→21:27)
[2017-12-31] MEDS: PANTOprazole SOD 40 MG TAB PO SCH ×2 (10:04→21:28)
[2017-12-31] MEDS: THIAMINE HCL 100 MG TAB PO SCH (10:04)
[2017-12-31] MEDS: CHOLECALCIFEROL 1000 INTER.UNIT TAB PO SCH (10:05)
[2017-12-31] MEDS: CYANOCOBALAMIN 500 MCG TAB (VIT B-12) PO SCH (10:06)
[2017-12-31] MEDS: ALLOPURINOL 100 MG TAB PO SCH ×2 (10:12→21:28)
[2017-12-31] MEDS ORDERED: MAGNESIUM CITRATE 296 ML/BTL PO ONE (12:45)
[2017-12-31] MEDS: SODIUM CHLORIDE 0.65% NA SOLN 45 ML (OCEAN) SCH ×8 (12:45→19:45)
--- NOTE | 2017-12-31 12:57 | Progress Note ---
Subjective Date of Service: Dec 31, 2017. Subjective Pt evaluation today including: conversation w/ patient, physical exam, chart review, lab review, review of inpatient medication list Pain: nothing new in comparison to baseline pains PO Intake: fair Voiding: walker catheter in place tele overnight - numerous 2-3 beat runs of PVCs, pacs, PAT no a. fib she continues with cough - improved - but streaked with maroon-colored material she denies epistaxis, but during the visit she had visible dried blood in both nares worse on left dyspnea MUCH better today c/o bloating in abdomen and unsatisfactory bowel movements - asks for something for this anxious to get back to [facility] reports not sleeping well last pm - this is typical for her "cat naps" during the day frequently at [facility] staff report intermittent lethargy this am but she easily awoke for me during my visit Problem List Medical Problems: (1) Abdominal pain Status: Acute (2) Acute kidney injury superimposed on chronic kidney disease Status: Acute (3) Altered mental status Status: Acute (4) Anemia Status: Acute (5) Back pain Status: Acute (6) Bilateral pneumonia Status: Acute (7) CHF (congestive heart failure) Status: Acute (8) Chronic Kidney Disease, Stage Iii (Moderate) Status: Chronic (9) Chronic, continuous use of opioids Status: Acute (10) COPD exacerbation Status: Acute (11) COPD exacerbation Status: Acute (12) Crystal arthritis Status: Chronic (13) Dehydration Status: Acute (14) Dehydration Status: Acute (15) Duodenal bulb ulcer Status: Chronic (16) Dysuria Status: Acute (17) Failure of outpatient treatment Status: Acute (18) Failure of outpatient treatment Status: Acute (19) Gallbladder dilatation Status: Acute (20) Generalized weakness Status: Acute (21) Gout Status: Chronic (22) Hyperlipidemia Nec/Nos Status: Chronic (23) Hypertension Status: Chronic (24) Hypoxemia Status: Acute (25) Hypoxia Status: Acute (26) Hypoxia Status: Acute (27) Hypoxia Status: Acute (28) Hypoxia Status: Acute (29) Lumbar compression fracture Status: Chronic (30) Nausea & vomiting Status: Acute (31) Opiate use Status: Chronic (32) Osteoporosis Status: Chronic (33) Peripheral edema Status: Acute (34) Pneumonia Status: Acute (35) Pneumonia Status: Acute (36) Pneumonia involving right lung Status: Acute (37) Renal insufficiency Status: Acute (38) Respiratory acidosis Status: Acute (39) Respiratory distress Status: Acute (40) Right renal artery stenosis Status: Chronic (41) Secondary hyperparathyroidism Status: Chronic (42) UTI (urinary tract infection) Status: Acute Review of Systems Constitutional: No fever, No chills Respiratory: + cough, + sputum, + hemoptysis, No dyspnea at rest Cardiac: No chest pain Abdomen: + constipation, No pain Neurologic: + numbness/tingling (legs) Objective Vital Signs Date Time Temp Pulse Resp B/P (MAP) Pulse Ox O2 Delivery O2 Flow Rate FiO2 12/31/17 11:58 37.1 86 18 88/60 (69) 92 12/31/17 11:15 83 20 92 Nasal Cannula 5.0 12/31/17 08:00 93 Nasal Cannula 3.0 12/31/17 07:52 37.0 79 20 143/93 (110) 95 12/31/17 07:06 80 20 93 Nasal Cannula 5.0 12/30/17 23:12 36.9 85 18 158/85 (109) 92 Nasal Cannula 5.0 Humidified Oxygen 12/30/17 20:18 36.7 79 18 168/117 (134) 94 Nasal Cannula 5.0 Humidified Oxygen 12/30/17 20:00 93 Nasal Cannula 5.0 12/30/17 19:02 80 18 93 Nasal Cannula 5.0 12/30/17 15:57 36.9 75 24 159/107 (124) 91 Nasal Cannula 5.0 Humidified Oxygen 12/30/17 15:14 75 18 93 Nasal Cannula 5.0 Physical Exam General Appearance: no apparent distress, + thin, + pertinent finding ( initially in heavy sleep, but awoke easily to name being called) ENT: + pertinent finding (copious thrush on buccal mucosa/tongue) Neck: no JVD Respiratory/Chest: no respiratory distress, no accessory muscle use, + pertinent finding (lungs much more clear today; no wheeze; minimal rales bases) Cardiovascular: regular rate, rhythm, no gallop, no murmur, + extra beats Abdomen: non tender, no organomegaly, + distended (mild) Extremities: no pedal edema Neurologic/Psychiatric: alert, oriented x 3, + motor weakness (b/l foot drop) Skin: + pertinent finding (PICC line, right arm - clean) Laboratory Results Last 24 Hours Test 8/4/18 20:02 12/31/17 05:07 Venous Blood pH 7.45 Venous Blood Partial Pressure CO2 54 mmHg Venous Blood Partial Pressure O2 33 mmHg Venous Blood HCO3 36 mmol/L Venous Blood Oxygen Saturation 62.1 % Venous Blood Base Excess 10.3 mEq/L Ammonia 12.8 umol/L White Blood Count 18.42 K/uL Red Blood Count 3.65 M/uL Hemoglobin 10.8 g/dL Hematocrit 35.1 % Mean Corpuscular Volume 96.2 fL Mean Corpuscular Hemoglobin 29.6 pg Mean Corpuscular Hemoglobin Concent 30.8 g/dl Platelet Count 139 K/uL Mean Platelet Volume 13.6 fL Neutrophils (%) (Auto) 83.2 % Lymphocytes (%) (Auto) 3.4 % Monocytes (%) (Auto) 11.6 % Eosinophils (%) (Auto) 0.3 % Basophils (%) (Auto) 0.1 % Neutrophils # (Auto) 15.34 K/uL Lymphocytes # (Auto) 0.62 K/uL Monocytes # (Auto) 2.14 K/uL Eosinophils # (Auto) 0.05 K/uL Basophils # (Auto) 0.02 K/uL RDW Standard Deviation 57.6 fL RDW Coefficient of Variation 16.6 % Immature Granulocyte % (Auto) 1.4 % Immature Granulocyte # (Auto) 0.25 K/uL Platelet Estimate NORMAL Basophilic Stippling 1+ Sodium Level 141 mmol/L Potassium Level 3.5 mmol/L Chloride Level 103 mmol/L Carbon Dioxide Level 34 mmol/L Anion Gap 4.0 mmol/L Blood Urea Nitrogen 24 mg/dl Creatinine 1.05 mg/dl Est Creatinine Clear Calc Drug Dose 37.7 ml/min Estimated GFR () 62.3 Estimated GFR (Non- 53.8 BUN/Creatinine Ratio 23.0 Random Glucose 69 mg/dl Calcium Level 8.3 mg/dl Magnesium Level 2.3 mg/dl Assessment and Plan 72yo female with: 1. acute/chronic hypoxic/hypercarbic respiratory failure - acute component 2nd to aspiration pneumonia + acute/chronic diastolic CHF. Stable, improved nicely overnight with diuresis. Was on vent and successfully extubated 12/28/17. 2. b/l pneumonia, most likely aspiration - this occurred in the setting of lethargy/encephalopathy. Seen by speech; video swallow completed; diet modified. Day #6 of antibiotic therapy. Culture from 12/30 growing GNR - may need to broaden antibiotics depending on the pathogen. 3. toxic encephalopathy - due to valium & lyrica pre-hospitalization - resolved , then had mild confusion yesterday and lethargy today. These episodes, I believe, are due to medication side effect. She is very sensitive to meds and typically has sedation with most things. I held her lyrica yesterday and she seems much more alert/oriented/lucid today. VBG and ammonia noted to be normal yesterday. 4. COPD with exacerbation - continue prednisone taper; improved. Cont nebs. Cont pulmonary toilet. 5. acute/chronic diastolic CHF - much improved with copious diuresis overnight. HCO3 on labs rising and pt appears euvolemic today; hold on additional lasix. 6. recent occipital headache - daily, persistent - improved with use of verapamil prophylaxis. 7. HTN - improved; continue current meds. 8. DVT proph - lovenox 30mg daily. If hemoptysis persists then hold this medication. H/H stable. 9. hemoptysis - she is s/p bronch earlier this stay without endobronchial lesion. Hemoptysis could be from epistaxis. Treat the latter and follow for improvement. 10. macrocytic anemia with low-normal folate and b12 levels - supplement folate 1mg daily and b12 1000mcg daily. 11. chronic pain syndrome - continue methadone as previous. 12. stage 3 CKD - creatinine stable today. BMP am. 13. hypokalemia - replaced and resolved; BMP am. 14. constipation - mag citrate 150cc x 1 today; cont miralax; cont stimulant ( senna). 15. epistaxis - saline nasal spray q1h. Bactroban ointment TID to both nares. Humidify the O2. 16. thrush - nystatin solution qid. 17. coag neg staph in blood cx - 1/2 sets this admission, similar to prior admission's blood cx's. Could the PICC be infected? If yes I would expect all bottles/sets to be persistently positive. Will d/w Dr. Villarreal or Latia. PT, OT evals dispo - [facility] update son later today Continued [facility] stay due to: ambulation difficulties, multiple IV medications needed [facility]charge planning: [facility]
[2017-12-31] MEDS: NYSTATIN SUSP 500,000 U/5 ML UDC PO SCH ×3 (15:38→21:27)
[2017-12-31] MEDS: MUPIROCIN 2% OINT 22 GM TUBE INTNAS SCH ×2 (15:39→21:21)
[2017-12-31] MEDS ORDERED: MAGNESIUM CITRATE 296 ML/BTL ONE (16:02)
--- NOTE | 2017-12-31 19:29 | DIAGNOSTIC IMAGING REPORT ---
LUMBAR SPINE WITHOUT CT DOSE: 582.94 mGy.cm HISTORY: Pain b/l foot drop, nerve pain b/l legs, eval for cord lesion/DJD/etc TECHNIQUE: Multiaxial CT images of the lumbar spine were performed and reformatted in the sagittal and coronal plane without the use of contrast. A dose lowering technique was utilized adhering to the principles of ALARA. COMPARISON: None. FINDINGS: Diffuse degenerative change and osteoporosis. Vertebral plasties at all vertebral body levels. Moderate compression deformity of all major vertebral bodies. No evidence for subluxation. Posterior partial posterior extension of kyphoplasty material to the spinal canal posterior to L5-S1. This creates only minimal impression upon the anterior aspect of thecal sac. Sacroiliac joint shows moderate degenerative changes throughout. IMPRESSION: 1. 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 2. Compression deformities and surgical kyphoplasty at all levels of the lumbar region. 3. No major compromise of the spinal canal. 4. Severe osteoporosis. The above report was generated using voice recognition software. It may contain grammatical, syntax or spelling errors. Electronically signed by: Klever June M.D. 12/31/2017 7:27 PM Dictated Date/Time: 12/31/2017 7:25 PM
[2017-12-31] MEDS: ROSUVASTATIN CALCIUM 20 MG TAB PO SCH (21:25)
[2017-12-31] MEDS: ENOXAPARIN 30 MG/0.3 ML SYR SQ SCH (21:29)
[2017-12-31] MEDS: PREGABALIN 25MG CAP PO SCH (21:30)
[2018-01-01] VITALS (10 sets, daily range): BP systolic 92–152; BP diastolic 64–89; PULSE 69–84; TEMP 36.6–37.1; O2SAT 87–94
[2018-01-01] MEDS: GUAIFENESIN SUGAR FREE 100 MG/5 ML UDC PO SCH ×4 (02:30→20:48)
[2018-01-01] MEDS ORDERED: SODIUM CHLORIDE 0.65% NA SOLN 45 ML (OCEAN) PRN (03:00)
[2018-01-01 04:49] LABS: HEMATOCRIT 33.9 % (37-47); HEMOGLOBIN 10.4 g/dL (12.0-16.0); MEAN CELL VOLUME 96.9 fL (80-100); MEAN CORPUSCULAR HEMOGLOBIN 29.7 pg (25-34); MEAN CORPUSCULAR HGB CONC 30.7 g/dl (32-36); RED CELL DISTRIBUTION WIDTH CV 16.8 % (11.5-14.5); RED CELL DISTRIBUTION WIDTH SD 57.9 fL (36.4-46.3); WHITE BLOOD COUNT 19.89 K/uL (4.8-10.8)
[2018-01-01 05:07] LABS: CALCIUM 8.5 mg/dl (8.5-10.1); CREATININE 1.32 mg/dl (0.60-1.20); POTASSIUM 4.5 mmol/L (3.5-5.1)
[2018-01-01 05:13] LABS: MEAN PLATELET VOLUME 13.8 fL (7.4-10.4); PLATELET COUNT 139 K/uL (130-400)
[2018-01-01] MEDS: ALBUT/IPRATROP 3MG/0.5MG NEB 3 ML VIAL INH SCH ×4 (07:08→18:45)
--- NOTE | 2018-01-01 09:46 | Progress Note ---
Subjective Date of Service: Jan 01, 2018. Subjective Pt evaluation today including: conversation w/ patient, physical exam, chart review, lab review, review of inpatient medication list Pain: neuropathy of legs - but improved this AM after lyrica PO Intake: eating fair, no issues Voiding: walker catheter in place pt slept well with lyrica at HS last night no excessive sedation states she was mildly short of breath last night and feels a bit more wheezy today no further nosebleeding hemoptysis is better mag citrate did not help move her bowels; willing to do go-lytely Problem List Medical Problems: (1) Abdominal pain Status: Acute (2) Acute kidney injury superimposed on chronic kidney disease Status: Acute (3) Altered mental status Status: Acute (4) Anemia Status: Acute (5) Back pain Status: Acute (6) Bilateral pneumonia Status: Acute (7) CHF (congestive heart failure) Status: Acute (8) Chronic Kidney Disease, Stage Iii (Moderate) Status: Chronic (9) Chronic, continuous use of opioids Status: Acute (10) COPD exacerbation Status: Acute (11) COPD exacerbation Status: Acute (12) Crystal arthritis Status: Chronic (13) Dehydration Status: Acute (14) Dehydration Status: Acute (15) Duodenal bulb ulcer Status: Chronic (16) Dysuria Status: Acute (17) Failure of outpatient treatment Status: Acute (18) Failure of outpatient treatment Status: Acute (19) Gallbladder dilatation Status: Acute (20) Generalized weakness Status: Acute (21) Gout Status: Chronic (22) Hyperlipidemia Nec/Nos Status: Chronic (23) Hypertension Status: Chronic (24) Hypoxemia Status: Acute (25) Hypoxia Status: Acute (26) Hypoxia Status: Acute (27) Hypoxia Status: Acute (28) Hypoxia Status: Acute (29) Lumbar compression fracture Status: Chronic (30) Nausea & vomiting Status: Acute (31) Opiate use Status: Chronic (32) Osteoporosis Status: Chronic (33) Peripheral edema Status: Acute (34) Pneumonia Status: Acute (35) Pneumonia Status: Acute (36) Pneumonia involving right lung Status: Acute (37) Renal insufficiency Status: Acute (38) Respiratory acidosis Status: Acute (39) Respiratory distress Status: Acute (40) Right renal artery stenosis Status: Chronic (41) Secondary hyperparathyroidism Status: Chronic (42) UTI (urinary tract infection) Status: Acute Review of Systems Constitutional: No fever, No chills Respiratory: + cough, + sputum, + wheezing, + shortness of breath Cardiac: No chest pain, No edema Abdomen: + constipation, No pain, No nausea, No vomiting Objective Vital Signs Date Time Temp Pulse Resp B/P (MAP) Pulse Ox O2 Delivery O2 Flow Rate FiO2 01/01/18 08:00 36.6 84 20 92/76 (81) 90 Nasal Cannula 5.0 01/01/18 07:08 81 18 94 Nasal Cannula 5.0 01/01/18 03:55 36.7 73 19 152/89 (110) 92 01/01/18 00:01 36.6 69 17 126/74 (91) 94 Nasal Cannula 4.0 12/31/17 20:00 91 Nasal Cannula 5.0 40 Humidified Oxygen 12/31/17 19:28 36.8 71 18 143/78 (99) 91 Nasal Cannula 5.0 Humidified Oxygen 12/31/17 18:53 74 22 94 Nasal Cannula 5.0 12/31/17 15:55 79 20 93 Nasal Cannula 5.0 12/31/17 15:40 36.8 74 20 132/75 (94) 93 Nasal Cannula 5.0 Humidified Oxygen 12/31/17 11:58 37.1 86 18 88/60 (69) 92 12/31/17 11:15 83 20 92 Nasal Cannula 5.0 Physical Exam General Appearance: no apparent distress, + pertinent finding (chronically ill- appearing; wide awake, alert today) ENT: + pertinent finding (thrush plaques already improved) Neck: no JVD Respiratory/Chest: no respiratory distress, no accessory muscle use, + rales ( scant bases), + wheezing (mild b/l ) Cardiovascular: regular rate, rhythm, no gallop, no murmur, + extra beats Abdomen: normal bowel sounds, soft, no organomegaly, + tenderness (minimal - high epigastric region) Extremities: + pedal edema (trace b/l a little worse on left) Neurologic/Psychiatric: alert, oriented x 3, + motor weakness (foot drop b/l ) Laboratory Results Last 24 Hours Test 01/01/18 04:22 White Blood Count 19.89 K/uL Red Blood Count 3.50 M/uL Hemoglobin 10.4 g/dL Hematocrit 33.9 % Mean Corpuscular Volume 96.9 fL Mean Corpuscular Hemoglobin 29.7 pg Mean Corpuscular Hemoglobin Concent 30.7 g/dl RDW Standard Deviation 57.9 fL RDW Coefficient of Variation 16.8 % Platelet Count 139 K/uL Mean Platelet Volume 13.8 fL Platelet Estimate DECREASED Sodium Level 143 mmol/L Potassium Level 4.5 mmol/L Chloride Level 104 mmol/L Carbon Dioxide Level 36 mmol/L Anion Gap 3.0 mmol/L Blood Urea Nitrogen 35 mg/dl Creatinine 1.32 mg/dl Est Creatinine Clear Calc Drug Dose 27.0 ml/min Estimated GFR () 47.3 Estimated GFR (Non- 40.8 BUN/Creatinine Ratio 26.2 Random Glucose 79 mg/dl Calcium Level 8.5 mg/dl Assessment and Plan 72yo female with: 1. acute/chronic hypoxic/hypercarbic respiratory failure - acute component 2nd to aspiration pneumonia + acute/chronic diastolic CHF + COPD exacerbation. Stable, improving, albeit slowly. She reports worsening wheezing today - will repeat cxr to r/o worsening infiltrates, edema, etc. Was on vent and successfully extubated 12/28/17. 2. b/l pneumonia, most likely aspiration - this occurred in the setting of lethargy/encephalopathy. Seen by speech; video swallow completed; diet modified. Day #12/05 of antibiotic therapy (augmentin). Culture from 12/30 growing GNR - may need to broaden antibiotics depending on the pathogen. Repeat cxr today. 3. toxic encephalopathy - due to valium & lyrica pre-hospitalization - resolved , then had mild confusion over the weekend. These episodes, I believe, have been due to medication side effect. She is very sensitive to meds and typically has sedation with most things. VBG and ammonia normal this weekend. No changes in any meds today. Cont low dose lyrica at bedtime. 4. COPD with exacerbation - continue prednisone taper and nebs. Cont pulmonary toilet. 5. acute/chronic diastolic CHF - much improved with copious diuresis this weekend. pt appears euvolemic today; hold on additional lasix. repeat cxr today. 6. recent occipital headache - daily, persistent - improved with use of verapamil prophylaxis. 7. HTN - improved and now low this am; decrease hydralazine to 10mg TID; continue other meds. 8. DVT proph - lovenox 30mg daily. H/H stable. 9. hemoptysis - improved. She is s/p bronch earlier this stay without endobronchial lesion. Hemoptysis could be from epistaxis. Treating the latter. 10. macrocytic anemia with low-normal folate and b12 levels - supplement folate 1mg daily and b12 1000mcg daily. 11. chronic pain syndrome - continue methadone as previous. 12. stage 3 CKD - creatinine 1.3 today but this is actually her baseline per records. BMP am. 13. hypokalemia - replaced and resolved; BMP am. 14. constipation - nothing has helped thus far. Order go-lytely prep. If this is not successful then relistor. 15. epistaxis - saline nasal spray q1h. Bactroban ointment TID to both nares. Humidify the O2. 16. thrush - nystatin solution qid. Improved. 17. coag neg staph in blood cx - 1/2 sets this admission, similar to prior admission's blood cx's. Could the PICC be infected? If yes I would expect all bottles/sets to be persistently positive. Will d/w Dr. Villarreal or Latia. PT, OT lindy dispo - [facility] Continued [facility] stay due to: ambulation difficulties, multiple IV medications needed, other (severe constipation ) Discharge planning: long term facility
[2018-01-01] MEDS: THIAMINE HCL 100 MG TAB PO SCH (09:57)
[2018-01-01] MEDS: HydrALAZINE 10 MG TAB PO SCH ×3 (09:57→21:16)
[2018-01-01] MEDS: PANTOprazole SOD 40 MG TAB PO SCH ×2 (09:58→20:51)
[2018-01-01] MEDS: BACLOFEN 10 MG TAB PO SCH ×3 (09:58→20:52)
[2018-01-01] MEDS: AMOXICILLIN/CLAVULANATE TAB 875 MG TAB PO SCH ×2 (09:59→16:56)
[2018-01-01] MEDS ORDERED: LAVAGE SOLUTION 4000ML PO SCH (10:00)
[2018-01-01] MEDS: FLUTICASONE/SALMETEROL 250/50 (ADVAIR) 14 PUFF/1 INHALER INH SCH ×2 (10:00→21:00)
[2018-01-01] MEDS: CALCITONIN SALMON NA 200 IU/AC 3.7 ML BTL NAE SCH (10:00)
[2018-01-01] MEDS: MUPIROCIN 2% OINT 22 GM TUBE INTNAS SCH ×3 (10:00→21:00)
[2018-01-01] MEDS: VERAPAMIL HCL 120 MG TABCR PO SCH (10:01)
[2018-01-01] MEDS: CHOLECALCIFEROL 1000 INTER.UNIT TAB PO SCH (10:01)
[2018-01-01] MEDS: DULOXETINE HCL 20 MG CAP PO SCH (10:02)
[2018-01-01] MEDS: CARVEDILOL 25 MG TAB PO SCH ×2 (10:02→20:53)
[2018-01-01] MEDS: CYANOCOBALAMIN 500 MCG TAB (VIT B-12) PO SCH (10:02)
[2018-01-01] MEDS: DOCUSATE SODIUM 100 MG/10 ML UDC PO SCH ×2 (10:02→20:56)
[2018-01-01] MEDS: POLYETHYLENE (MIRALAX) 17 GM PACK PO SCH ×2 (10:03→20:58)
[2018-01-01] MEDS: ALLOPURINOL 100 MG TAB PO SCH ×2 (10:04→20:55)
[2018-01-01] MEDS: NYSTATIN SUSP 500,000 U/5 ML UDC PO SCH ×4 (10:04→20:50)
[2018-01-01] MEDS: METHADONE HCL 10 MG TAB PO SCH ×3 (10:18→21:03)
--- NOTE | 2018-01-01 11:12 | DIAGNOSTIC IMAGING REPORT ---
SINGLE VIEW CHEST CLINICAL HISTORY: Follow-up CHF. FINDINGS: An AP, portable, upright chest radiograph is compared to study dated 12/30/2017 and correlated with chest CT dated 08/10/2017. The examination is degraded by portable technique and patient rotation. A right PICC line is unchanged in position. The heart is enlarged and there is atherosclerotic calcification of the thoracic aorta. Pulmonary vascular congestion has almost completely resolved from 12/30/2017. There is bibasilar atelectasis. No large pleural effusion or pneumothorax is seen. The skeletal structures are osteopenic. There are numerous healed bilateral rib fractures. Postoperative change is noted in the left humerus. Numerous compression deformities are identified in the thoracic spine with evidence of previous multilevel vertebroplasty. IMPRESSION: 1. Cardiomegaly. Pulmonary vascular congestion has almost completely resolved from 12/30/2017. 2. No airspace consolidation or large pleural effusion is identified. Electronically signed by: Tej Bernard M.D. 01/01/2018 11:11 AM Dictated Date/Time: 01/01/2018 11:10 AM
[2018-01-01] MEDS ORDERED: COUGH DROP (SUGAR FREE) LOZ 24 LOZ/1 BOX LOZ PRN (16:15)
[2018-01-01] MEDS ORDERED: FUROSEMIDE 20 MG TAB PO STA (16:27)
[2018-01-01] MEDS ORDERED: ONDANSETRON INJ 2 MG/ML 2 ML VIAL ONE (16:34)
[2018-01-01] MEDS: ENOXAPARIN 30 MG/0.3 ML SYR SQ SCH (20:50)
[2018-01-01] MEDS: ROSUVASTATIN CALCIUM 20 MG TAB PO SCH (20:50)
[2018-01-01] MEDS: PREGABALIN 25MG CAP PO SCH (21:03)
[2018-01-02] VITALS (23 sets, daily range): BP systolic 124–168; BP diastolic 54–125; PULSE 62–87; TEMP 36.2–37; O2SAT 85–100
[2018-01-02] MEDS: GUAIFENESIN SUGAR FREE 100 MG/5 ML UDC PO SCH ×4 (03:16→20:48)
[2018-01-02 05:11] LABS: CALCIUM 8.2 mg/dl (8.5-10.1); CREATININE 1.15 mg/dl (0.60-1.20); POTASSIUM 4.1 mmol/L (3.5-5.1)
[2018-01-02] MEDS: ALBUT/IPRATROP 3MG/0.5MG NEB 3 ML VIAL INH SCH ×5 (07:13→19:29)
[2018-01-02] MEDS ORDERED: PHARMACY CONSULT IN PROGRESS PRN (08:30)
[2018-01-02] MEDS: HydrALAZINE 10 MG TAB PO SCH ×3 (08:37→20:48)
[2018-01-02] MEDS: FLUTICASONE/SALMETEROL 250/50 (ADVAIR) 14 PUFF/1 INHALER INH SCH ×2 (08:38→20:49)
[2018-01-02] MEDS: POLYETHYLENE (MIRALAX) 17 GM PACK PO SCH ×2 (08:38→20:47)
[2018-01-02] MEDS: DULOXETINE HCL 20 MG CAP PO SCH (08:38)
[2018-01-02] MEDS: CALCITONIN SALMON NA 200 IU/AC 3.7 ML BTL NAE SCH (08:38)
[2018-01-02] MEDS: MUPIROCIN 2% OINT 22 GM TUBE INTNAS SCH ×3 (08:38→20:49)
[2018-01-02] MEDS: DOCUSATE SODIUM 100 MG/10 ML UDC PO SCH ×2 (08:38→20:48)
[2018-01-02] MEDS: BACLOFEN 10 MG TAB PO SCH ×3 (08:39→20:48)
[2018-01-02] MEDS: PANTOprazole SOD 40 MG TAB PO SCH ×2 (08:39→20:47)
[2018-01-02] MEDS: ALLOPURINOL 100 MG TAB PO SCH ×2 (08:39→20:48)
[2018-01-02] MEDS: CARVEDILOL 25 MG TAB PO SCH ×2 (08:39→20:49)
[2018-01-02] MEDS: CHOLECALCIFEROL 1000 INTER.UNIT TAB PO SCH (08:39)
[2018-01-02] MEDS: CYANOCOBALAMIN 500 MCG TAB (VIT B-12) PO SCH (08:39)
[2018-01-02] MEDS: AMOXICILLIN/CLAVULANATE TAB 875 MG TAB PO SCH (08:40)
[2018-01-02] MEDS: VERAPAMIL HCL 120 MG TABCR PO SCH (08:40)
[2018-01-02] MEDS: THIAMINE HCL 100 MG TAB PO SCH (08:40)
[2018-01-02] MEDS: METHADONE HCL 10 MG TAB PO SCH ×2 (08:42→14:00)
[2018-01-02] MEDS: NYSTATIN SUSP 500,000 U/5 ML UDC PO SCH ×4 (08:42→20:48)
[2018-01-02] MEDS ORDERED: SULFAMETHOXAZOLE/TRIMETHOPRIM DS 800/160MG TAB PO SCH (09:00)
--- NOTE | 2018-01-02 10:19 | Clinical Documentation Query ---
CLINICAL DOCUMENTATION QUERY JAZMYNE Calderón : In your clinical opinion is this patient being managed for: ( ) Severe protein-calorie malnutrition ( x ) Moderate protein-calorie malnutrition ( ) Not Agree ( ) Other explanation of clinical findings (No explanation is considered a No Response) ( ) Unable to determine ( ) Need to Discuss (Phone CDS or qliq) (No discussion is considered a No Response) The medical record reflects the following clinical findings, treatment, and risk factors. Clinical Indicators: 72 yo female presenting with aspiration pneumonia. Pt has had a wt loss of 6.1 Kg (10%) during this admission. Per dietary assessment, pt currently consuming approx 50% of meals. Treatment: snacks, smaller more frequent meals, monitor labs, wts, oral intake Risk Factors: age, multiple chronic disease with repeated hospitalizations Severe Malnutrition Criteria: (2 criteria needed) Energy intake: <50% of estimated energy requirement for > 5 days Wt loss: 1-2% in 1 wk, 5% in 1 month, or 7.5% in 3 months Body fat: moderate loss of SQ fat from the orbits, triceps or fat overlying the ribs Muscle mass: moderate muscle wasting at the temples, clavicles, shoulders, interosseous spaces, scapula, thigh, calf Fluid accumulation: moderate to severe localized or generalized edema of the extremities, vulva, scrotum-wt loss may be masked by edema Clinical Support Manager strength: measurably decreased per the devices standards Moderate Malnutrition Criteria: (2 criteria needed) Energy intake: <75% of estimated energy requirement for > 7 days Wt loss: 1-2% in 1 wk, 5% in 1 month, or 7.5% in 3 months Body fat: mild loss of SQ fat from the orbits, triceps or fat overlying the ribs Muscle mass: mild muscle wasting at the temples, clavicles, shoulders, interosseous spaces, scapula, thigh, calf Fluid accumulation: mild localized or generalized edema of the extremities, vulva, scrotum-wt loss may be masked by edema Clinical Support Manager strength: Not applicable Please clarify and document your clinical opinion in the progress notes and discharge summary. Terms such as "probable", "suspected", "likely", "questionable", "possible", or "still to be ruled out" are acceptable. IF IN AGREEMENT, YOU MUST DOCUMENT ABOVE DIAGNOSTIC STATEMENT IN DAILY PROGRESS NOTES AND DISCHARGE SUMMARY. This document is not part of the patient's record. Thank You, Chanelle Bernabe RN [phone]
--- NOTE | 2018-01-02 11:21 | DIAGNOSTIC IMAGING REPORT ---
CHEST ONE VIEW PORTABLE CLINICAL HISTORY: worsening wheezing and b/l crackles dyspnea COMPARISON STUDY: 01/01/2018 FINDINGS: Mild stable cardia megaly. Persistent prominence of the pulmonary vasculature. Small focal segmental atelectasis left infrahilar region versus focal infiltrate. Unchanging atelectatic change left midlung. Unchanging findings of multiple old left-sided rib fractures with postoperative changes left humerus. IMPRESSION: 1. Developing left infrahilar segmental atelectatic change versus infiltrate. 2. Pulmonary vascular congestion unchanged. 3. Scattered atelectasis unchanged. The above report was generated using voice recognition software. It may contain grammatical, syntax or spelling errors. Electronically signed by: Klever June M.D. 01/02/2018 11:19 AM Dictated Date/Time: 01/02/2018 11:18 AM
[2018-01-02] MEDS: METHYLPREDNISOLONE IV 40 MG in SYRINGE 0 ML IV SCH ×2 (13:10→23:35)
[2018-01-02] MEDS ORDERED: PIPERACILL/TAZOBAC CONSULT ACTIVE PRN (14:30)
[2018-01-02] MEDS ORDERED: PIPERACILL/TAZOBAC IV 3.375 GM in D5W 100 ML IV ONE (15:00)
[2018-01-02] MEDS ORDERED: LEVOFLOXACIN / D5W 750 MG in PREMIXED IN D5W 150 ML IV SCH (16:00)
--- NOTE | 2018-01-02 19:31 | Progress Note ---
Subjective Date of Service: Jan 02, 2018. Subjective Pt evaluation today including: conversation w/ patient, conversation w/ family (Jhonathan, son, by phone ), physical exam, chart review, lab review, review of studies (cxr, abgs), conversation w/ construction safety consultant (critical care), review of inpatient medication list Voiding: walker catheter in place tele overnight stable during my AM rounds the patient was very lethargic she awoke briefly enough to tell me her breathing was "bad today" and then quickly went back to sleep CXR obtained - no significant change from yesterday VBG with significant hypercarbia with pCO2 about 90 BIPAP initiated, steroids changed to IV, and antibiotics were broadened I spoke with the pt's son, Jhonathan, by phone he confirmed that he spoke with his mother yesterday and they had a good discussion about end-of-life wishes she voiced to Jhonathan that she would be ok with temporary intubation/mech ventilation but NOT long-term vent or trach placement further, she would not want CPR (compressions, shocks) Jhonathan is an RN and understands the gravity of his mother's medical issues Problem List Medical Problems: (1) Abdominal pain Status: Acute (2) Acute kidney injury superimposed on chronic kidney disease Status: Acute (3) Altered mental status Status: Acute (4) Anemia Status: Acute (5) Back pain Status: Acute (6) Bilateral pneumonia Status: Acute (7) CHF (congestive heart failure) Status: Acute (8) Chronic Kidney Disease, Stage Iii (Moderate) Status: Chronic (9) Chronic, continuous use of opioids Status: Acute (10) COPD exacerbation Status: Acute (11) COPD exacerbation Status: Acute (12) Crystal arthritis Status: Chronic (13) Dehydration Status: Acute (14) Dehydration Status: Acute (15) Duodenal bulb ulcer Status: Chronic (16) Dysuria Status: Acute (17) Failure of outpatient treatment Status: Acute (18) Failure of outpatient treatment Status: Acute (19) Gallbladder dilatation Status: Acute (20) Generalized weakness Status: Acute (21) Gout Status: Chronic (22) Hyperlipidemia Nec/Nos Status: Chronic (23) Hypertension Status: Chronic (24) Hypoxemia Status: Acute (25) Hypoxia Status: Acute (26) Hypoxia Status: Acute (27) Hypoxia Status: Acute (28) Hypoxia Status: Acute (29) Lumbar compression fracture Status: Chronic (30) Nausea & vomiting Status: Acute (31) Opiate use Status: Chronic (32) Osteoporosis Status: Chronic (33) Peripheral edema Status: Acute (34) Pneumonia Status: Acute (35) Pneumonia Status: Acute (36) Pneumonia involving right lung Status: Acute (37) Renal insufficiency Status: Acute (38) Respiratory acidosis Status: Acute (39) Respiratory distress Status: Acute (40) Right renal artery stenosis Status: Chronic (41) Secondary hyperparathyroidism Status: Chronic (42) UTI (urinary tract infection) Status: Acute Review of Systems unable to obtain ROS due to altered MS Objective Vital Signs Date Time Temp Pulse Resp B/P (MAP) Pulse Ox O2 Delivery O2 Flow Rate FiO2 01/02/18 12:50 62 16 94 BiPAP/CPAP 60 01/02/18 12:48 62 94 60 01/02/18 12:17 36.7 65 16 124/73 (90) 85 Nasal Cannula 6.0 01/02/18 11:10 68 18 86 Nasal Cannula 6.0 01/02/18 07:41 37.0 74 16 152/87 (108) 88 Nasal Cannula 5.0 01/02/18 07:13 75 20 95 Nasal Cannula 5.0 01/02/18 03:53 36.4 71 16 126/54 (78) 92 Nasal Cannula 5.0 01/02/18 00:26 36.6 75 22 138/86 (103) 92 Nasal Cannula 6.0 01/01/18 20:00 Nasal Cannula 5.0 01/01/18 19:52 36.9 71 20 132/73 (92) 90 Nasal Cannula 6.0 01/01/18 18:47 69 14 91 Nasal Cannula 6.0 01/01/18 15:52 36.9 80 19 125/71 (89) 93 Nasal Cannula 6.0 01/01/18 14:31 78 20 92 Nasal Cannula 6.0 Physical Exam General Appearance: + mild distress (retractions, agonal type breathing), + pertinent finding (slouched over in bed) ENT: pharynx normal Neck: + JVD Respiratory/Chest: + respiratory distress, + decreased breath sounds, + accessory muscle use, + crackles, + wheezing Cardiovascular: regular rate, rhythm, no gallop, no murmur, + extra beats Abdomen: normal bowel sounds, non tender, soft, no organomegaly Extremities: + pedal edema (trace b/l, worse on left ) Neurologic/Psychiatric: + pertinent finding (lethargic, borderline obtunded ) Laboratory Results Last 24 Hours Test 01/02/18 04:38 01/02/18 11:57 01/02/18 14:01 Sodium Level 140 mmol/L Potassium Level 4.1 mmol/L Chloride Level 101 mmol/L Carbon Dioxide Level 40 mmol/L Anion Gap -1.0 mmol/L Blood Urea Nitrogen 30 mg/dl Creatinine 1.15 mg/dl Est Creatinine Clear Calc Drug Dose 31.0 ml/min Estimated GFR () 55.8 Estimated GFR (Non- 48.2 BUN/Creatinine Ratio 26.3 Random Glucose 78 mg/dl Calcium Level 8.2 mg/dl Venous Blood pH 7.28 Venous Blood Partial Pressure CO2 92 mmHg Venous Blood Partial Pressure O2 38 mmHg Venous Blood HCO3 43 mmol/L Venous Blood Oxygen Saturation 67.0 % Venous Blood Base Excess 13.1 mEq/L Assessment and Plan 72yo female with: 1. acute/chronic hypoxic/hypercarbic respiratory failure - WORSE. Ms. Sommers has significantly worsened CO2 levels today. I am unclear if sedatives are causing depression in her respiratory drive ( methadone, and now tox screen with benzos today??) or the Stenotrophomonas is causing the acute worsening or combination of the two. Acute/chronic diastolic CHF + COPD exacerbation also contributing. Despite escalating pressures on her BIPAP throughout the day she made little improvement by way of her VBGs or her mental status. I spoke several times today with Dr. Rondon from the ICU and she will be transferred to the ICU. Defer to Dr. Rondon management of this issue. Intubation is imminent. As noted in the HPI of this note patient would like a trial of intubation/ ventilation but NOT LONG-TERM and NO TRACH. NO CPR either. 2. b/l pneumonia, most likely aspiration, and now with gram negative jordan ( Stenotrophomonas) - she is day #8 of abx today. She has NOT had any antibiotic in several days that would have covered the Stenotrophomonas. Due to her worsening status will d/c augmentin and change to zosyn and levaquin (latter for Stenotrophomonas). 3. toxic & metabolic encephalopathy - due to valium & lyrica pre- hospitalization - resolved, then had mild confusion over the weekend, and now significant obtundation. Today's lethargy is due to CO2 retention/resp acidosis. I ran a tox screen and this shows benzos today. I am uncertain if the valium she took [facility] the [facility] on [facility] could be causing the tox to be +. She did receive versed until 12/29 however the half-life is short and doubt this is the cause. Other possibility is that she has a personal amount of benzos on her possession and has been taking such at times but I cannot prove or disprove such. Hold lyrica. Await the final tox screen results which will take several days. 4. COPD with exacerbation - hold prednisone, change to solumedrol 40mg q12h. 5. acute/chronic diastolic CHF - I believe she is compensated from CHF standpoint. 6. recent occipital headache - daily, persistent - improved with use of verapamil prophylaxis. 7. HTN - controlled. 8. DVT proph - lovenox 30mg daily. H/H stable. 9. hemoptysis - had been improving. She is s/p bronch earlier this stay without endobronchial lesion. Hemoptysis could have been from epistaxis. 10. macrocytic anemia with low-normal folate and b12 levels - supplement folate 1mg daily and b12 1000mcg daily. 11. chronic pain syndrome - continue methadone as previous. Has been on this for 4-5+ years. 12. stage 3 CKD - creatinine stable today. BMP am. 13. hypokalemia - replaced and resolved; BMP am. 14. constipation - nothing has helped thus far including go-lytely prep. If this is not successful then relistor. Address respiratory issues first of course. 15. epistaxis - saline nasal spray q1h. Bactroban ointment TID to both nares. Humidify the O2. 16. thrush - nystatin solution qid. Improved/resolved. 17. coag neg staph in blood cx - 1/2 sets this admission, similar to prior admission's blood cx's. Could the PICC be infected? If yes I would expect all bottles/sets to be persistently positive. Follow. critical care time today - 90 minutes in total including discussing care with the ICU attending, speaking with Jhonathan her son by phone (see HPI for details, etc) , ordering BIPAP, etc again - TRIAL OF intubation/ventilation is ok but NO long-term ventilation or trach placement; DNR otherwise (no shocks, no compressions) Continued [facility] stay due to: voiding difficulties, ambulation difficulties, multiple IV medications needed, other (worsening resp failure) Discharge planning: halfway facility
--- NOTE | 2018-01-02 19:53 | Critical Care Consultation ---
Critical Care Consultation Date of Consultation: Jan 02, 2018. Attending Physician: Juan Nance MD Reason for Consultation: Dear Dr. Nance: Thank you for your kind referral of Mrs. Sommers to critical care service. This is 72-year-old female with history of COPD, severe kyphoscoliosis, severe osteoporosis, chronic back pain, has been maintained on methadone in addition to baclofen, the patient has previous admissions to the hospital with acute respiratory failure and recurrent aspiration, her kyphosis resulted also in increased risk of acute aspiration. Initially the patient was treated with antibiotics and her admission 7 days ago where she was downgraded to Augmentin and then upgraded to Zosyn and Levaquin. The patient started also on Solu- Medrol for COPD exacerbation. The patient has acute on chronic respiratory failure due to hypercapnia. She was started on the BiPAP which she did not like and today she was found to be obtunded and she was placed on the BiPAP again. I was asked to evaluate the patient regarding transferring her to the ICU. When I interviewed her, she was fully awake following commands on the BiPAP. Later on the patient started developing worsening mental status as she was taken off the BiPAP. The patient transferred to the ICU for further management. According to discussion with her son who is a healthcare proxy, he agreed to intubation if needed. The patient was intubated once before in the ICU in the past month and end up being extubated successfully. Although he understands that extubation and her condition might not be successful every time. The patient does have obstructive and restrictive lung physiology. On her labs and data in addition to her x-rays and CAT scan from July 2017 has been reviewed personally. Review of system was difficult to obtain due to the patient being on the BiPAP and be lethargic, however she denies any pain at the moment, denies any shortness of breath, she does have cough but inability to raise her sputum. The patient did not have episodes of nausea vomiting reported and there is no diarrhea. Family History Heart disease Social History Smoking Status: Former Smoker Drug Use: none Marital Status: Housing Status: lives with family Occupation Status: disabled Allergies Coded Allergies: Squash (Verified Allergy, Severe, ANAPHYLAXIS, 12/31/17) Zucchini Azithromycin (Verified Adverse Reaction, Mild, nausea, 12/26/17) Levofloxacin (Verified Adverse Reaction, Mild, nausea, 12/26/17) Home Medications Scheduled Allopurinol (Zyloprim), 100 MG PO BID Baclofen (Lioresal), 10 MG PO TID Calcitonin Malaga (Calcitonin-Malaga), 1 SPRAY ERIC QAM Carvedilol (Coreg), 25 MG PO BID Cholecalciferol (D-1000), 4,000 UNITS PO QAM Dextrose (Diabetic Use) (Insta-Glucose), 1 APPLN PO UD Duloxetine HCl (Cymbalta), 30 MG PO QAM Fluticasone Prop/Salmeterol (Advair Diskus 250/50 60 Dose), 1 PUFFS INH BID Home O2 Therapy (Oxygen), 4 LITERS NA PRN Hydralazine HCl (Hydralazine HCl), 10 MG PO TID Ipratropium-Albuterol (Combivent Respimat), 1 PUFFS INH QID Loratadine (Claritin), 10 MG PO DAILY Methadone HCl (Methadone HCl), 30 MG PO TID Mirtazapine (Remeron), 15 MG PO HS Multivitamin (Multivitamin), 1 TAB PO QAM Nystatin (Topical) (Nystop), 1 APPLN TOP BID Pantoprazole (Protonix), 40 MG PO BID Polyethylene Glycol 3350 (Miralax), 17 GM PO BID Prednisone Tab (Prednisone), 60 MG PO DAILY Pregabalin (Lyrica), 50 MG PO BID Senna/Docusate Sod (Senokot S), 1 TAB PO BID Thiamine HCl (Vitamin B-1), 200 MG PO QAM Tiotropium Kennedy (Spiriva Handihaler), 1 CAP INH DAILY Verapamil Hcl (Verapamil Hcl Er), 120 MG PO QAM Scheduled PRN Acetaminophen (Tylenol), 650 MG PO Q6 PRN for Pain or Fever Albuterol Sulfate (Albuterol Sulfate), 1 VIAL NEB Q4 PRN for SOB/Wheezing Bisacodyl (Dulcolax), 1 SUPP [place] UD PRN for Constipation Diazepam (Valium), 2.5 MG PO Q12 PRN for Headache Doxepin HCl (Antipruritic) (Doxepin Hydrochloride), 1 APPLN TOP Q6 PRN for Pain Epinephrine (Epipen), 0.3 MG IM UD PRN for ALLERGIC REACTION Lidocaine (Anorectal) (Lidocaine), 1 APPLN TOP Q6 PRN for Pain Magnesium Hydroxide (Milk Of Magnesia), 30 ML PO UD PRN for Constipation Mineral Oil (Enema Mineral Oil), 1 BTL [place] UD PRN for Constipation Ondansetron (Ondansetron Hcl), 4 MG IV Q6 PRN for Nausea or Vomiting Ondasetron Odt (Zofran Odt), 4 MG SL Q6H PRN for Nausea Promethazine Hcl (Phenergan), 25 MG IV Q6 PRN for Nausea or Vomiting Saline (Saline Nasal Grover), 2 SPRAYS ERIC Q8 PRN for Nasal Congestion Sumatriptan Succinate (Imitrex), 25 MG PO UD PRN for Migraine Miscellaneous Medications Glucagon (Glucagon Emergency Kit), 1 APPLN IM Current Inpatient Medications Current Inpatient Medications Medications (Trade) Dose Ordered Sig/Estephania Route Start Time Stop Time Status Last Admin Dose Admin Acetaminophen (Tylenol Tab) 650 mg Q4H PRN PO 12/26/17 22:45 01/25/18 22:44 Allopurinol (Zyloprim Tab) 100 mg BID PO 12/27/17 09:00 01/26/18 08:59 01/02/18 08:39 100 MG Calcitonin [place] (Fortical Nasal Grover) 1 spray QAM ERIC 12/27/17 09:00 01/26/18 08:59 01/02/18 08:38 1 SPRAY Carvedilol (Coreg Tab) 25 mg BID PO 12/27/17 09:00 01/26/18 08:59 01/02/18 08:39 25 MG Salmeterol Xinafoate/ Fluticasone (Advair Diskus 250/50 Inh) 1 puff BID INH 12/27/17 09:00 01/26/18 08:59 01/02/18 08:38 1 PUFF Albuterol Sulfate (Ventolin 0.083% 2.5MG/3ML Neb) 2.5 mg Q4H PRN INH 12/26/17 23:45 01/25/18 23:44 12/29/17 23:17 2.5 MG Duloxetine HCl (Cymbalta Cap) 20 mg QAM PO 12/27/17 09:00 01/26/18 08:59 01/02/18 08:38 20 MG Baclofen (Lioresal Tab) 5 mg TID PO 12/27/17 09:00 01/26/18 08:59 01/02/18 08:39 5 MG Rosuvastatin Calcium (Crestor Tab) 20 mg QPM PO 12/27/17 21:00 01/26/18 20:59 01/01/18 20:50 20 MG Enoxaparin Sodium (Lovenox Inj) 30 mg HS SQ 12/27/17 21:00 01/26/18 20:59 01/01/18 20:50 30 MG Docusate Sodium (coLACE SYRUP) 100 mg BID PO 12/27/17 21:00 01/25/18 23:14 01/02/18 08:38 100 MG Heparin Sodium (Porcine) (Heparin 10 Unit/ ml 5 ml Flush) 5 ml PRN PRN FLUSH 12/27/17 23:15 01/26/18 23:14 Methadone HCl (Dolophine Tab) 25 mg TID PO 12/29/17 14:00 01/10/18 08:59 01/02/18 08:42 25 MG Albuterol/ Ipratropium (Combivent Respimat Inh) 1 puffs QID INH 12/29/17 17:00 01/28/18 16:59 Future Hold 12/30/17 09:16 1 PUFFS Polyethylene (Miralax Powder Packet) 17 gm BID PO 12/29/17 21:00 01/25/18 23:14 01/02/18 08:38 17 GM Verapamil HCl (Calan-Sr Tab) 120 mg QAM PO 12/30/17 09:00 01/29/18 08:59 01/02/18 08:40 120 MG Pantoprazole Sodium (Protonix Tab) 40 mg BID PO 12/29/17 21:00 01/28/18 20:59 01/02/18 08:39 40 MG Thiamine HCl (Vitamin B-1 Tab) 200 mg QAM PO 12/30/17 09:00 01/29/18 08:59 01/02/18 08:40 200 MG Cholecalciferol (Vitamin D Tab) 4,000 inter.unit QAM PO 12/30/17 09:00 01/29/18 08:59 01/02/18 08:39 4,000 INTER.UNIT Folic Acid (Folvite Tab) 1 mg QAM PO 12/31/17 09:00 01/30/18 08:59 01/02/18 08:40 1 MG Cyanocobalamin (Vitamin B-12 Tab) 1,000 mcg QAM PO 12/31/17 09:00 01/30/18 08:59 01/02/18 08:39 1,000 MCG Albuterol/ Ipratropium (Duoneb) 3 ml Q4HWA INH 12/30/17 16:00 01/29/18 15:59 01/02/18 19:29 3 ML Guaifenesin (Robitussin Sugar Free Syrup) 100 mg Q6H PO 12/30/17 14:30 01/29/18 14:29 01/02/18 08:40 100 MG Albuterol/ Ipratropium (Duoneb) 3 ml Q2H PRN INH 12/30/17 14:30 01/29/18 14:29 Pregabalin (Lyrica Cap) 25 mg HS PO 12/31/17 21:00 01/26/18 08:59 Future Hold 01/01/18 21:03 25 MG Nystatin (Mycostatin Susp) 5 ml QID PO 12/31/17 13:00 01/10/18 12:59 01/02/18 08:42 5 ML Mupirocin (Bactroban 2% Oint) 1 appln TID INTNAS 12/31/17 14:00 01/30/18 13:59 01/02/18 08:38 1 APPLN Sodium Chloride ([place] Nasal Grover) 2 sprays Q1H PRN NA 01/01/18 03:00 01/31/18 02:59 Hydralazine HCl (Apresoline Tab) 10 mg TID PO 01/01/18 09:00 01/26/18 08:59 01/02/18 08:37 10 MG Menthol (Nice Mady) 1 mady Q1H PRN MADY 01/01/18 16:15 01/31/18 16:14 Methylprednisolone Sodium Succinate 40 mg/Syringe 0.64 ml @ 1.5 mls/min Q12H IV 01/02/18 11:00 02/01/18 10:59 01/02/18 13:10 1.5 MLS/MIN Piperacillin Sod/ Tazobactam Sod 3.375 gm/Dextrose 115 ml @ 28.75 mls/ hr Q8H IV 01/02/18 20:00 01/09/18 19:59 Miscellaneous Information (Consult) 1 ea UD PRN N/A 01/02/18 14:30 02/01/18 14:29 Levofloxacin 750 mg/Prmx 150 ml @ 100 mls/hr Q48H IV 01/02/18 16:00 01/09/18 15:59 01/02/18 16:23 100 MLS/HR Review of Systems Review of system was very limited due to the patient condition, as above in the first section. Physical Exam Date Time Temp Pulse Resp B/P (MAP) Pulse Ox O2 Delivery O2 Flow Rate FiO2 01/02/18 19:29 67 18 98 BiPAP/CPAP 60 01/02/18 15:30 36.2 72 18 143/78 (99) 95 CPAP 01/02/18 15:15 67 94 60 01/02/18 15:14 66 16 94 BiPAP/CPAP 60 01/02/18 12:50 62 16 94 BiPAP/CPAP 60 01/02/18 12:48 62 94 60 01/02/18 12:45 98 BiPAP 60 01/02/18 12:17 36.7 65 16 124/73 (90) 85 Nasal Cannula 6.0 01/02/18 11:10 68 18 86 Nasal Cannula 6.0 01/02/18 08:30 Nasal Cannula 6.0 01/02/18 07:41 37.0 74 16 152/87 (108) 88 Nasal Cannula 5.0 01/02/18 07:13 75 20 95 Nasal Cannula 5.0 01/02/18 03:53 36.4 71 16 126/54 (78) 92 Nasal Cannula 5.0 01/02/18 00:26 36.6 75 22 138/86 (103) 92 Nasal Cannula 6.0 01/01/18 20:00 Nasal Cannula 5.0 01/01/18 19:52 36.9 71 20 132/73 (92) 90 Nasal Cannula 6.0 General Appearance: cachetic Eyes: EOMI ENT: normal throat exam Neck: trachea midline, other (Severe scoliosis, distant breath sounds bilaterally. No wheezing.) Respiratory: breath sounds normal Cardiovasular: regular rate/rhythm, normal S1S2, no M/G/R, no murmur Abdomen: no guarding Lower Extremities: no edema Neuro: alert Psychiatric: flat affect Laboratory Results Last 24 Hours Test 01/02/18 02:05 01/02/18 04:38 01/02/18 11:57 01/02/18 15:19 Urine Opiates Screen NEG Urine Methadone, Qualitative POS Urine Barbiturates NEG Urine Phencyclidine (PCP) Level NEG Ur Amphetamine/Methamphetamine NEG MDMA (Ecstasy) Screen NEG Urine Benzodiazepines Screen POS Urine Cocaine Metabolite NEG Urine Marijuana (THC) NEG Sodium Level 140 mmol/L Potassium Level 4.1 mmol/L Chloride Level 101 mmol/L Carbon Dioxide Level 40 mmol/L Anion Gap -1.0 mmol/L Blood Urea Nitrogen 30 mg/dl Creatinine 1.15 mg/dl Est Creatinine Clear Calc Drug Dose 31.0 ml/min Estimated GFR () 55.8 Estimated GFR (Non- 48.2 BUN/Creatinine Ratio 26.3 Random Glucose 78 mg/dl Calcium Level 8.2 mg/dl Venous Blood pH 7.28 7.30 Venous Blood Partial Pressure CO2 92 mmHg 90 mmHg Venous Blood Partial Pressure O2 38 mmHg 42 mmHg Venous Blood HCO3 43 mmol/L 43 mmol/L Venous Blood Oxygen Saturation 67.0 % 72.3 % Venous Blood Base Excess 13.1 mEq/L 13.8 mEq/L Test 01/02/18 18:45 Venous Blood pH 7.28 Venous Blood Partial Pressure CO2 89 mmHg Venous Blood Partial Pressure O2 44 mmHg Venous Blood HCO3 41 mmol/L Venous Blood Oxygen Saturation 75.6 % Venous Blood Base Excess 12.2 mEq/L Diagnostic Results Laboratory showed leukocytosis secondary to steroids, the patient has antibiogram profile in the past showing stenotrophomonas, she does have ESBL in the past as well, chest x-ray showed increased atelectasis in the left upper lobe and severe kyphoscoliosis, CAT scan done in July 2017 also was reviewed which showed Abarca angle over than 120. And the patient with severe bilateral COPD. Assessment & Plan 1. Acute on chronic toxic and hypercapnic respiratory failure. 2. COPD, gold level 3, on home O2 at 2 L. 3. Severe restrictive physiology with CO2 retention due to kyphoscoliosis, left lung is recessive and right lung is dominant. 4. Possible superimposed aspiration pneumonitis rather than pneumonia. 5. Chronic pain has been maintained on methadone as well as baclofen which both can suppress the cough reflex. Plan: 1. I will decrease methadone to twice daily instead of 3 times daily. 2. Keep the patient on the BiPAP for now. 3. Avoid intubation until it is necessary as the patient is at risk for having difficulty liberating from the ventilator given her obstructive and restrictive lung physiology. 4. Although the patient is on Zosyn and Levaquin, we will downgrade antibiotic in the morning if the patient shows no signs of infectious process. 5. The patient would benefit from bronchoscopy due to mucoid impaction, if she gets intubated we will perform it. 6. Continue with current bronchodilators. 7. The patient is not a candidate for vibrating vest. 8. Continue Solu-Medrol 40 mg IV every 12 hours. We will adjust accordingly. 9. Bronchodilators. Case discussed with Dr. Nance, appreciate his input, discussed with the staff on rounds and details, patient seen on 2 occasions. Critical care time spent with the patient was 60 minutes.
[2018-01-02] MEDS: ROSUVASTATIN CALCIUM 20 MG TAB PO SCH (20:48)
[2018-01-02] MEDS: ENOXAPARIN 30 MG/0.3 ML SYR SQ SCH (20:50)
--- NOTE | 2018-01-02 21:21 | Critical Care Progress Note ---
Critical Care Progress Note Date of Service Jan 02, 2018. Critical Care Progress Note 2035: Conversation with patient's son and POA, Jonnathan. He was questioning need for transfer of patient to the ICU. He was question whether the patient's mother required intubation or other invasive procedures. In addition, he is questioning her status at this point and predicted outcome. We had an extensive conversation including CODE STATUS and agreed to have a conversation with the patient in group format to assess her wishes. 2049: Group conversation with Daughter (Paz) and Son (Jonnathan) via phone with LARA Mckinnon present. During conversation, patient's current condition and concerns were discussed at great length with family. At current time, the patient is listed as a DO NOT RESUSCITATE. After extensive conversation, she does agree to temporary trial of intubation with mechanical ventilation, but would not wish to be intubated for greater than 3 days. She WOULD NOT want tracheostomy. Additionally, she would not want compressions. She would agree to intravenous medications and cardioversion, however. Family was all in agreement at this point. They will be updated with all or any changes. We will continue with BiPAP at this point and repeat an ABG for evaluation of management at this point. I have personally spent 30 minutes of critical care time in the direct management of this patient. This is a life/limb threatening event. This includes time spent evaluating patient, direct bedside care, chart review, placing orders, interpretation of diagnostic studies, discussion with consultants, patient, and family members, as well as other required patient management activities. This time is exclusive of all separately billable procedures, and teaching time and separate from and in addition to any other critical care service time.
[2018-01-02] MEDS: PIPERACILL/TAZOBAC IV 3.375 GM in DEXTROSE 5% 100ML 100 ML IV SCH (21:39)
[2018-01-03] VITALS (39 sets, daily range): BP systolic 111–159; BP diastolic 67–102; PULSE 64–89; TEMP 36.4–37.3; O2SAT 85–100
[2018-01-03] MEDS: METHADONE HCL 10 MG TAB PO SCH ×2 (01:46→21:04)
[2018-01-03] MEDS: GUAIFENESIN SUGAR FREE 100 MG/5 ML UDC PO SCH ×2 (03:30→08:30)
[2018-01-03] MEDS: PIPERACILL/TAZOBAC IV 3.375 GM in DEXTROSE 5% 100ML 100 ML IV SCH ×3 (03:30→19:57)
[2018-01-03 05:17] LABS: ALBUMIN 2.3 gm/dl (3.4-5.0); CALCIUM 8.5 mg/dl (8.5-10.1); CREATININE 1.01 mg/dl (0.60-1.20); PHOSPHORUS 2.6 mg/dl (2.5-4.9); POTASSIUM 4.3 mmol/L (3.5-5.1); TOTAL PROTEIN 5.3 gm/dl (6.4-8.2)
[2018-01-03 05:21] LABS: HEMATOCRIT 30.9 % (37-47); HEMOGLOBIN 9.4 g/dL (12.0-16.0); MEAN CELL VOLUME 98.1 fL (80-100); MEAN CORPUSCULAR HEMOGLOBIN 29.8 pg (25-34); MEAN CORPUSCULAR HGB CONC 30.4 g/dl (32-36); RED CELL DISTRIBUTION WIDTH SD 57.1 fL (36.4-46.3); WHITE BLOOD COUNT 24.78 K/uL (4.8-10.8)
[2018-01-03 05:27] LABS: MEAN PLATELET VOLUME 13.3 fL (7.4-10.4); PLATELET COUNT 117 K/uL (130-400)
[2018-01-03 05:28] LABS: BASO ABS # 0.01 K/uL (0-0.2); IG# 0.34 K/uL (0.00-0.02); LYMPH % 1.6 %; MONO % 3.7 %; MONO ABS # 0.91 K/uL (0.11-0.59); NEUT % 93.3 %; NEUT ABS # 23.12 K/uL (1.4-6.5)
[2018-01-03] MEDS: ALBUT/IPRATROP 3MG/0.5MG NEB 3 ML VIAL INH SCH ×4 (07:21→19:17)
--- NOTE | 2018-01-03 07:26 | DIAGNOSTIC IMAGING REPORT ---
CHEST ONE VIEW PORTABLE CLINICAL HISTORY: Respiratory failure. COMPARISON STUDY: Chest radiograph January 02, 2018. FINDINGS: Note is made of multilevel vertebral augmentations, a right PICC and left humeral internal fixation. Old left-sided rib fractures are noted. There is no pneumothorax or pleural effusion. Interstitial thickening has slightly improved. Linear bilateral opacities persist. Cardiomegaly is unchanged. IMPRESSION: 1. Linear left lung opacity consistent with atelectasis. Right infrahilar opacity which favors atelectasis. Pneumonia could appear similar although is considered less likely. 2. No evidence for pulmonary edema. 3. Moderate cardiomegaly. Electronically signed by: Lewis Guzmán M.D. 01/03/2018 7:25 AM Dictated Date/Time: 01/03/2018 7:22 AM
[2018-01-03] MEDS: MUPIROCIN 2% OINT 22 GM TUBE INTNAS SCH ×3 (09:00→20:54)
[2018-01-03] MEDS: FLUTICASONE/SALMETEROL 250/50 (ADVAIR) 14 PUFF/1 INHALER INH SCH ×2 (09:00→20:53)
[2018-01-03] MEDS: THIAMINE HCL 100 MG TAB PO SCH (09:00)
[2018-01-03] MEDS: CALCITONIN SALMON NA 200 IU/AC 3.7 ML BTL NAE SCH (09:00)
[2018-01-03] MEDS: CHOLECALCIFEROL 1000 INTER.UNIT TAB PO SCH (09:00)
[2018-01-03] MEDS: POLYETHYLENE (MIRALAX) 17 GM PACK PO SCH ×2 (09:00→21:13)
[2018-01-03] MEDS: CYANOCOBALAMIN 500 MCG TAB (VIT B-12) PO SCH (09:00)
[2018-01-03] MEDS: BACLOFEN 10 MG TAB PO SCH ×2 (10:52→12:02)
[2018-01-03] MEDS: PANTOprazole SOD 40 MG TAB PO SCH ×2 (10:54→21:05)
[2018-01-03] MEDS: HydrALAZINE 10 MG TAB PO SCH ×3 (10:54→20:56)
[2018-01-03] MEDS: DULOXETINE HCL 20 MG CAP PO SCH (10:54)
[2018-01-03] MEDS: VERAPAMIL HCL 120 MG TABCR PO SCH (10:54)
[2018-01-03] MEDS: NYSTATIN SUSP 500,000 U/5 ML UDC PO SCH ×4 (10:54→20:54)
[2018-01-03] MEDS: ALLOPURINOL 100 MG TAB PO SCH ×2 (10:55→21:06)
[2018-01-03] MEDS: CARVEDILOL 25 MG TAB PO SCH ×2 (10:55→20:58)
[2018-01-03] MEDS: DOCUSATE SODIUM 100 MG/10 ML UDC PO SCH ×2 (10:56→20:54)
[2018-01-03] MEDS: METHYLPREDNISOLONE IV 20 MG in SYRINGE 0 ML IV SCH ×3 (12:07→23:23)
--- NOTE | 2018-01-03 12:50 | Palliative Care Progress Note ---
Palliative Care Progress Note Date of Service Jan 03, 2018. Subjective Pt evaluation today including: conversation w/ patient, conversation w/ family , physical exam Pain: 3/10 PO Intake: thickened liquids A family meeting was held at the patients bedside today with the patient's son, Jhonathan, who has arrived from [place], [place] today. He has a background in Public Health and has worked with Hospice/End-of-life patients as an RN. Dr. Rondon was also involved in the family meeting and together we discussed COPD and her current needs, along with discussing GOALS OF CARE and her CODE STATUS. With known lung restriction with her anatomical anomalies, the likelihood of her aspirating is high. Additionally, despite previous conversations, she has decided against elective intubation should the need arise and she decompensates or has another COPD exacerbation. She previously was willing to undergo cardioversion, but we discussed the correlation between CPR, intubation and cardioversion, all typically meshing. When discussing her GOALS OF CARE she did state she would like to return back to the [facility] with the focus being comfort. We discussed medications that are used for comfort, but also discussed the pathophysiology of CO2 levels rising and the likelilhood of her experiencing CO2 narcosis/encephalopathy. The patient will be changed to DNR/DNI. Additionally, the patient expressed having peripheral neuropathy as her main concern at this time, in her bilateral lower extremities. She had failed Gabapentin in the past and felt that the Lyrica was causing her to be too sedated. That being said, we discussed a retrial since she is also now on a different dose of Methadone which she has been on for chronic management of her kyphosis. We discussed Hospice with the patient and son and she is very receptive to having a Hospice referral placed prior to her return to [facility]. We discussed the benefit of Hospice and the services that they can provide. Review of Systems General: Patient states that she has 3/10 pain in her legs HEENT: Patient denies GASPAR, dizziness. Coughs with some swallowing CV: Patient denies CP, palpitations Resp: Patient denies SOB GI: Patient denies abdominal pain : Patient has a walker and denies and problems with it Skin: Patient denies any new lesions Objective Vital Signs Date Time Temp Pulse Resp B/P (MAP) Pulse Ox O2 Delivery O2 Flow Rate FiO2 01/03/18 11:58 68 18 97 Nasal Cannula 6.0 8/8/18 11:30 36.6 89 22 136/67 (90) 88 Nasal Cannula 4.0 8818 11:00 36.4 80 20 136/67 (90) 96 BiPAP 45 8/8/18 08:00 BiPAP 45 8/8/18 08:00 36.4 74 16 146/67 (93) 96 BiPAP 45 8/8/18 07:29 74 15 100 BiPAP/CPAP 45 88/18 07:22 74 100 45 8/8/18 05:07 64 98 45 88/18 05:01 70 23 157/85 (109) 97 BiPAP 45 8/8/18 04:30 80 20 159/86 (110) 96 BiPAP 45 88/18 04:00 36.6 86 23 155/85 (108) 96 BiPAP 45 88/18 03:31 85 15 144/85 (104) 93 BiPAP 45 8/8/18 03:00 77 18 154/94 (114) 96 BiPAP 45 88/18 03:00 77 18 154/94 (114) 96 BiPAP 45 8/8/18 02:30 79 23 138/85 (102) 97 BiPAP 45 8/8/18 02:01 75 16 144/77 (99) 95 BiPAP 45 8/8/18 01:31 82 20 148/102 (117) 96 BiPAP 45 8/8/18 01:17 75 96 45 8/8/18 01:00 80 14 147/80 (102) 95 BiPAP 45 8/8/18 00:30 71 14 145/78 (100) 94 BiPAP 45 88/18 00:02 84 99 45 8/8/18 00:01 36.6 74 23 139/77 (97) 95 BiPAP 45 8/7/18 23:31 63 21 150/80 (103) 99 BiPAP 60 8/7/18 23:01 81 18 150/94 (112) 100 BiPAP 60 8/7/18 22:52 72 17 153/96 (115) 100 BiPAP 60 8/7/18 22:30 74 24 146/125 (132) 100 BiPAP 60 8/7/18 22:00 66 19 158/94 (115) 100 BiPAP 60 8/7/18 21:32 79 23 156/78 (104) 100 BiPAP 60 8/7/18 21:00 BiPAP 60 01/02/18 21:00 87 23 168/92 (117) 100 BiPAP 60 01/02/18 20:31 67 23 155/87 (109) 100 BiPAP 60 01/02/18 20:30 70 23 146/88 (107) 100 BiPAP 60 01/02/18 20:23 36.8 71 18 164/101 (122) 98 BiPAP 60 01/02/18 19:29 67 18 98 BiPAP/CPAP 60 01/02/18 15:30 36.2 72 18 143/78 (99) 95 CPAP 01/02/18 15:15 67 94 60 01/02/18 15:14 66 16 94 BiPAP/CPAP 60 Physical Exam General Appearance: no apparent distress Neck: supple Respiratory/Chest: no respiratory distress, no accessory muscle use Cardiovascular: regular rate, rhythm Abdomen: normal bowel sounds, non tender, soft Neurologic/Psychiatric: oriented x 3 Skin: warm/dry Laboratory Results Last 24 Hours Test 01/02/18 15:19 01/02/18 18:45 01/02/18 23:56 01/03/18 04:44 Venous Blood pH 7.30 7.28 Venous Blood Partial Pressure CO2 90 mmHg 89 mmHg Venous Blood Partial Pressure O2 42 mmHg 44 mmHg Venous Blood HCO3 43 mmol/L 41 mmol/L Venous Blood Oxygen Saturation 72.3 % 75.6 % Venous Blood Base Excess 13.8 mEq/L 12.2 mEq/L Blood Gas Sample Site L Radial Bedside Blood Gas pH (LAB) 7.55 Bedside Blood Gas pCO2 (LAB) 46 mmHg Bedside Blood Gas pO2 (LAB) 46 mmHg Bedside Blood Gas HCO3 (LAB) 40 meq/L Bedside Blood Gas Total CO2 > 40 mEq/l Bedside Blood Gas Base Excess (LAB) 18.0 meq/L Bedside Blood Gas O2 Saturation 86.0 % Leroy Test Pass Oxygen Delivery Device BIPAP Bedside Oxygen Rate (breaths/min) 12 Bedside FiO2 60 % Blood Gas IPAP 18 White Blood Count 24.78 K/uL Red Blood Count 3.15 M/uL Hemoglobin 9.4 g/dL Hematocrit 30.9 % Mean Corpuscular Volume 98.1 fL Mean Corpuscular Hemoglobin 29.8 pg Mean Corpuscular Hemoglobin Concent 30.4 g/dl Platelet Count 117 K/uL Mean Platelet Volume 13.3 fL Neutrophils (%) (Auto) 93.3 % Lymphocytes (%) (Auto) 1.6 % Monocytes (%) (Auto) 3.7 % Eosinophils (%) (Auto) 0.0 % Basophils (%) (Auto) 0.0 % Neutrophils # (Auto) 23.12 K/uL Lymphocytes # (Auto) 0.40 K/uL Monocytes # (Auto) 0.91 K/uL Eosinophils # (Auto) 0.00 K/uL Basophils # (Auto) 0.01 K/uL RDW Standard Deviation 57.1 fL RDW Coefficient of Variation 16.0 % Immature Granulocyte % (Auto) 1.4 % Immature Granulocyte # (Auto) 0.34 K/uL Platelet Estimate DECREASED Hypochromasia PRESENT Sodium Level 139 mmol/L Potassium Level 4.3 mmol/L Chloride Level 99 mmol/L Carbon Dioxide Level 38 mmol/L Anion Gap 2.0 mmol/L Blood Urea Nitrogen 26 mg/dl Creatinine 1.01 mg/dl Est Creatinine Clear Calc Drug Dose 35.3 ml/min Estimated GFR () 65.3 Estimated GFR (Non- 56.4 BUN/Creatinine Ratio 25.4 Random Glucose 78 mg/dl Calcium Level 8.5 mg/dl Phosphorus Level 2.6 mg/dl Magnesium Level 2.1 mg/dl Total Bilirubin 0.5 mg/dl Aspartate Amino Transf (AST/SGOT) 16 U/L Alanine Aminotransferase (ALT/SGPT) 18 U/L Alkaline Phosphatase 82 U/L Total Protein 5.3 gm/dl Albumin 2.3 gm/dl Globulin 3.0 gm/dl Albumin/Globulin Ratio 0.8 Test 01/03/18 05:08 01/03/18 06:15 01/03/18 10:51 01/03/18 11:13 Blood Gas Sample Site L Radial Bedside Blood Gas pH (LAB) 7.44 Bedside Blood Gas pCO2 (LAB) 62 mmHg Bedside Blood Gas pO2 (LAB) 89 mmHg Bedside Blood Gas HCO3 (LAB) 42 meq/L Bedside Blood Gas Total CO2 > 40 mEq/l Bedside Blood Gas Base Excess (LAB) 18.0 meq/L Bedside Blood Gas O2 Saturation 97.0 % Leroy Test Pass Oxygen Delivery Device BIPAP Bedside Oxygen Rate (breaths/min) 12 Bedside FiO2 45 % Blood Gas IPAP 12 Bedside Glucose 82 mg/dl 65 mg/dl 96 mg/dl Assessment and Plan Palliative Care Encounter COPD Kyphosis Peripheral Neuropathy Palliative Care Recommendations: ADVANCED DIRECTIVES: Pt was previously a FULL CODE. Further GOALS OF CARE conversation with patients son indicated that she does not want elective intubation in the event that her CO2 levels rise. Patient changed to DNR/DNI. A repeat POLST form to be completed with the patients son, tomorrow. One is completed however, indicates full treatment. COPD: Patient appears to 'live' with a CO2 level in the high 40's. Patient was at 62 but does come down with BiPAP. The patient has been maintaining O2 saturation in the high 80's to low 90's. She has stated that the BiPAP is harder to tolerate than the CPAP. Dr. Rondon discussed the Trilogy; however, if proceeding with Hospice, this will likely not be covered. Will defer to Case Management to assist with this. KYPHOSIS: Patient with structural kyphosis which is related to restrictive response and her COPD. Aspiration considerations important to consider. With transitioning to comfort, benefit outweighs aspiration risk which was discussed with the patient and her son. We will continue with thickened for now as this will decrease the risk. PERIPHERAL NEUROPATHY: Patient has peripheral neuropathy for which she has failed Gabapentin in the past. She was recently on Lyrica; however, it was stopped due to sedative response. The patient is transitioning moreso towards comfort and quality, so would recommend re-trialing Lyrica for symptom management. Palliative Performance Scale: 40 % Continued [facility] stay due to: voiding difficulties, ambulation difficulties, multiple IV medications needed, other (worsening resp failure) Discharge planning: long term facility Counseling and Coordination Total time spent 45 minutes with > 50% of that time spent reviewing the chart, assessing the patient, discussing GOALS OF CARE with the patient and discussing with the IDT.
--- NOTE | 2018-01-03 15:30 | Critical Care Progress Note ---
Critical Care Progress Note Date of Service Jan 03, 2018. Attending Dr. Rondon Subjective The patient tolerated the BiPAP overnight, she did not have any events, today she is fully awake and answering questions and she has been maintained only on nasal cannula, she denies any chest pain, no back pain, minimal pain mainly from neuropathy in the lower extremities. Objective General: Alert. Skin: Warm, dry, Head: Atraumatic Ears, nose, mouth and throat: Airway patent, NG tube present Cardiovascular: Normal peripheral perfusion Respiratory: Scattered rhonchi Gastrointestinal: Non distended Musculoskeletal: No deformity Physical exam on 01/13/2018 revealed vital signs remains stable, O2 sat 88% on nasal cannula, severe kyphoscoliosis, S1-S2 regular rate and rhythm with occasional PVCs, bilateral rhonchi but distance breath sounds, abdomen is benign , trace edema in the periphery. Her laboratory showed acute on chronic hypercapnic respiratory failure, WBC elevated due to steroids, microbiology showed stenotrophomonas in the sputum. Chest x-ray was reviewed which showed subsegmental atelectasis bilaterally. Assessment & Plan 1. Acute on chronic hypoxic and hypercapnic respiratory failure requiring BiPAP. 2. COPD, gold level 3. Home O2 dependent. 3. Severe restrictive physiology due to severe kyphoscoliosis with Abarca angle more than 120. 4. Bilateral atelectasis causing volume loss. 5. Chronic pain mainly in the back and lower extremities with peripheral neuropathy. Plan: 1. Change methadone down to 50 mg p.o. 3 times daily. 2. Continue with baclofen 5 mg 3 times daily. 3. The patient felt Lyrica is helping her with her peripheral neuropathy, however she was started on 25 mg at bedtime which resulted in her somnolence. I will hold off on it at this point. 4. Unfortunately the patient would not be able to be taken off most of her medications including the analgesics and methadone due to the risk of withdrawal and risk of inducing the pain. The patient is interested only with being pain-free and comfortable as much as it can be. 5. I will continue with the BiPAP at night with the current settings and nasal cannula during the daytime. 6. Except O2 sat between 85-90% only. 7. Continue with oral intake although the patient at high risk of aspiration. 8. I have had a long discussion with the patient herself and then with the patient and her son at the bedside as well. All their questions been answered. Issues regarding her poor prognosis due to obstructive and restrictive physiology has been discussed. We have discussed the intubation as it will have a poor outcome requiring tracheostomy and possible lifetime mechanical ventilation. She is not interested in tracheostomy or intubation and she was adamant about it. The patient would like to change her CODE STATUS to DNR and DNI at this point. She is interested in continuing her medications to the lowest limit possible to provide her with pain relief. I have noticed that when she started on Lyrica at low dose of 25 mg, her symptoms has been worsening with increased somnolence and dependence on the BiPAP. I would hold off on adding Lyrica to her regimen. Patient is also on Cymbalta, baclofen, and she has been off the Ativan. In the event the patient goes on the BiPAP and she would not be able to tolerated or she become somnolent and comatose despite the BiPAP, she would like to be changed to comfort measures only. Both the patient and her son are in agreement. The case discussed with palliative care at the bedside. 9. I will attempt to provide her with trilogy once she is ready to be discharged. It is a better option to have auto Pap then having BiPAP at home. Case discussed in details with the staff on rounds and with the family and with palliative care, appreciate all involved in her care. Discussed with the Goyo and appreciate his input. Critical care time spent with the patient was 60 minutes. Consults & Procedures Consultants: Infectious disease: Villarreal Data Medications: Current Inpatient Medications Medications (Trade) Dose Ordered Sig/Estephania Route Start Time Stop Time Status Last Admin Dose Admin Acetaminophen (Tylenol Tab) 650 mg Q4H PRN PO 12/26/17 22:45 01/25/18 22:44 Allopurinol (Zyloprim Tab) 100 mg BID PO 12/27/17 09:00 01/26/18 08:59 01/03/18 10:55 100 MG Calcitonin Laverne (Fortical Nasal Marana) 1 spray QAM ERIC 12/27/17 09:00 01/26/18 08:59 01/03/18 09:00 1 SPRAY Carvedilol (Coreg Tab) 25 mg BID PO 12/27/17 09:00 01/26/18 08:59 01/03/18 10:55 25 MG Salmeterol Xinafoate/ Fluticasone (Advair Diskus 250/50 Inh) 1 puff BID INH 12/27/17 09:00 01/26/18 08:59 01/03/18 09:00 1 PUFF Duloxetine HCl (Cymbalta Cap) 20 mg QAM PO 12/27/17 09:00 01/26/18 08:59 01/03/18 10:54 20 MG Baclofen (Lioresal Tab) 5 mg TID PO 12/27/17 09:00 01/26/18 08:59 01/03/18 10:52 5 MG Rosuvastatin Calcium (Crestor Tab) 20 mg QPM PO 12/27/17 21:00 01/26/18 20:59 01/02/18 20:48 20 MG Enoxaparin Sodium (Lovenox Inj) 30 mg HS SQ 12/27/17 21:00 01/26/18 20:59 01/02/18 20:50 30 MG Docusate Sodium (coLACE SYRUP) 100 mg BID PO 12/27/17 21:00 01/25/18 23:14 01/03/18 10:56 100 MG Heparin Sodium (Porcine) (Heparin 10 Unit/ ml 5 ml Flush) 5 ml PRN PRN FLUSH 12/27/17 23:15 01/26/18 23:14 Albuterol/ Ipratropium (Combivent Respimat Inh) 1 puffs QID INH 12/29/17 17:00 01/28/18 16:59 Future Hold 12/30/17 09:16 1 PUFFS Polyethylene (Miralax Powder Packet) 17 gm BID PO 12/29/17 21:00 01/25/18 23:14 01/02/18 20:47 17 GM Verapamil HCl (Calan-Sr Tab) 120 mg QAM PO 12/30/17 09:00 01/29/18 08:59 01/03/18 10:54 120 MG Pantoprazole Sodium (Protonix Tab) 40 mg BID PO 12/29/17 21:00 01/28/18 20:59 01/03/18 10:54 40 MG Thiamine HCl (Vitamin B-1 Tab) 200 mg QAM PO 12/30/17 09:00 01/29/18 08:59 01/02/18 08:40 200 MG Cholecalciferol (Vitamin D Tab) 4,000 inter.unit QAM PO 12/30/17 09:00 01/29/18 08:59 01/02/18 08:39 4,000 INTER.UNIT Folic Acid (Folvite Tab) 1 mg QAM PO 12/31/17 09:00 01/30/18 08:59 01/02/18 08:40 1 MG Cyanocobalamin (Vitamin B-12 Tab) 1,000 mcg QAM PO 12/31/17 09:00 01/30/18 08:59 01/02/18 08:39 1,000 MCG Albuterol/ Ipratropium (Duoneb) 3 ml Q4HWA INH 12/30/17 16:00 01/29/18 15:59 01/03/18 11:58 3 ML Guaifenesin (Robitussin Sugar Free Syrup) 100 mg Q6H PO 12/30/17 14:30 01/29/18 14:29 01/03/18 03:30 100 MG Albuterol/ Ipratropium (Duoneb) 3 ml Q2H PRN INH 12/30/17 14:30 01/29/18 14:29 Pregabalin (Lyrica Cap) 25 mg HS PO 12/31/17 21:00 01/26/18 08:59 Future Hold 01/01/18 21:03 25 MG Nystatin (Mycostatin Susp) 5 ml QID PO 12/31/17 13:00 01/10/18 12:59 01/03/18 10:54 5 ML Mupirocin (Bactroban 2% Oint) 1 appln TID INTNAS 12/31/17 14:00 01/30/18 13:59 01/03/18 12:02 1 APPLN Sodium Chloride (Morland Nasal Marana) 2 sprays Q1H PRN NA 01/01/18 03:00 01/31/18 02:59 Hydralazine HCl (Apresoline Tab) 10 mg TID PO 01/01/18 09:00 01/26/18 08:59 01/03/18 10:54 10 MG Menthol (Nice Mady) 1 mady Q1H PRN MADY 01/01/18 16:15 01/31/18 16:14 Piperacillin Sod/ Tazobactam Sod 3.375 gm/Dextrose 115 ml @ 28.75 mls/ hr Q8H IV 01/02/18 20:00 01/09/18 19:59 01/03/18 12:07 28.75 MLS/HR Miscellaneous Information (Consult) 1 ea UD PRN N/A 01/02/18 14:30 02/01/18 14:29 Levofloxacin 750 mg/Prmx 150 ml @ 100 mls/hr Q48H IV 01/02/18 16:00 01/09/18 15:59 01/02/18 16:23 100 MLS/HR Methadone HCl (Dolophine Tab) 25 mg BID PO 01/02/18 21:00 01/10/18 08:59 Future Hold Methylprednisolone Sodium Succinate 20 mg/Syringe 0.32 ml @ 1.5 mls/min Q6H IV 01/03/18 12:00 02/02/18 11:59 01/03/18 12:07 1.5 MLS/MIN I & O: 24-Hour Column 01/04/18 08:00 Intake Total 326 ml Output Total 550 ml Balance -224 ml Vital Signs: Date Time Temp Pulse Resp B/P (MAP) Pulse Ox O2 Delivery O2 Flow Rate FiO2 01/03/18 14:00 69 14 127/73 (91) 88 01/03/18 14:00 36.7 69 22 127/71 (89) 89 Nasal Cannula 4.0 01/03/18 13:30 76 17 123/74 (90) 88 01/03/18 13:00 73 16 117/67 (84) 87 01/03/18 12:30 79 16 111/70 (84) 89 01/03/18 12:00 81 17 130/79 (96) 98 01/03/18 11:58 68 18 97 Nasal Cannula 4.0 01/03/18 11:31 86 18 139/67 (91) 88 01/03/18 11:30 36.6 89 22 136/67 (90) 88 Nasal Cannula 4.0 01/03/18 11:30 80 16 88 01/03/18 11:00 36.4 80 20 136/67 (90) 96 BiPAP 45 01/03/18 08:00 BiPAP 45 01/03/18 08:00 36.4 74 16 146/67 (93) 96 BiPAP 45 8/8/18 07:29 74 15 100 BiPAP/CPAP 45 8/8/18 07:22 74 100 45 8/8/18 05:07 64 98 45 8/8/18 05:01 70 23 157/85 (109) 97 BiPAP 45 8/8/18 04:30 80 20 159/86 (110) 96 BiPAP 45 8/8/18 04:00 36.6 86 23 155/85 (108) 96 BiPAP 45 8/8/18 03:31 85 15 144/85 (104) 93 BiPAP 45 8/8/18 03:00 77 18 154/94 (114) 96 BiPAP 45 8/8/18 03:00 77 18 154/94 (114) 96 BiPAP 45 8/8/18 02:30 79 23 138/85 (102) 97 BiPAP 45 8/8/18 02:01 75 16 144/77 (99) 95 BiPAP 45 8/8/18 01:31 82 20 148/102 (117) 96 BiPAP 45 8/8/18 01:17 75 96 45 8/8/18 01:00 80 14 147/80 (102) 95 BiPAP 45 8/8/18 00:30 71 14 145/78 (100) 94 BiPAP 45 8/8/18 00:02 84 99 45 8/8/18 00:01 36.6 74 23 139/77 (97) 95 BiPAP 45 8/7/18 23:31 63 21 150/80 (103) 99 BiPAP 60 8/7/18 23:01 81 18 150/94 (112) 100 BiPAP 60 8/7/18 22:52 72 17 153/96 (115) 100 BiPAP 60 8/7/18 22:30 74 24 146/125 (132) 100 BiPAP 60 8/7/18 22:00 66 19 158/94 (115) 100 BiPAP 60 8/7/18 21:32 79 23 156/78 (104) 100 BiPAP 60 8/7/18 21:00 BiPAP 60 8/7/18 21:00 87 23 168/92 (117) 100 BiPAP 60 8/7/18 20:31 67 23 155/87 (109) 100 BiPAP 60 8/7/18 20:30 70 23 146/88 (107) 100 BiPAP 60 8/7/18 20:23 36.8 71 18 164/101 (122) 98 BiPAP 60 01/02/18 19:29 67 18 98 BiPAP/CPAP 60 01/02/18 15:30 36.2 72 18 143/78 (99) 95 CPAP Laboratory Results: Last 24 Hours Test 01/02/18 18:45 01/02/18 23:56 01/03/18 04:44 01/03/18 05:08 Venous Blood pH 7.28 Venous Blood Partial Pressure CO2 89 mmHg Venous Blood Partial Pressure O2 44 mmHg Venous Blood HCO3 41 mmol/L Venous Blood Oxygen Saturation 75.6 % Venous Blood Base Excess 12.2 mEq/L Blood Gas Sample Site L Radial L Radial Bedside Blood Gas pH (LAB) 7.55 7.44 Bedside Blood Gas pCO2 (LAB) 46 mmHg 62 mmHg Bedside Blood Gas pO2 (LAB) 46 mmHg 89 mmHg Bedside Blood Gas HCO3 (LAB) 40 meq/L 42 meq/L Bedside Blood Gas Total CO2 > 40 mEq/l > 40 mEq/l Bedside Blood Gas Base Excess (LAB) 18.0 meq/L 18.0 meq/L Bedside Blood Gas O2 Saturation 86.0 % 97.0 % Leroy Test Pass Pass Oxygen Delivery Device BIPAP BIPAP Bedside Oxygen Rate (breaths/min) 12 12 Bedside FiO2 60 % 45 % Blood Gas IPAP 18 12 White Blood Count 24.78 K/uL Red Blood Count 3.15 M/uL Hemoglobin 9.4 g/dL Hematocrit 30.9 % Mean Corpuscular Volume 98.1 fL Mean Corpuscular Hemoglobin 29.8 pg Mean Corpuscular Hemoglobin Concent 30.4 g/dl Platelet Count 117 K/uL Mean Platelet Volume 13.3 fL Neutrophils (%) (Auto) 93.3 % Lymphocytes (%) (Auto) 1.6 % Monocytes (%) (Auto) 3.7 % Eosinophils (%) (Auto) 0.0 % Basophils (%) (Auto) 0.0 % Neutrophils # (Auto) 23.12 K/uL Lymphocytes # (Auto) 0.40 K/uL Monocytes # (Auto) 0.91 K/uL Eosinophils # (Auto) 0.00 K/uL Basophils # (Auto) 0.01 K/uL RDW Standard Deviation 57.1 fL RDW Coefficient of Variation 16.0 % Immature Granulocyte % (Auto) 1.4 % Immature Granulocyte # (Auto) 0.34 K/uL Platelet Estimate DECREASED Hypochromasia PRESENT Sodium Level 139 mmol/L Potassium Level 4.3 mmol/L Chloride Level 99 mmol/L Carbon Dioxide Level 38 mmol/L Anion Gap 2.0 mmol/L Blood Urea Nitrogen 26 mg/dl Creatinine 1.01 mg/dl Est Creatinine Clear Calc Drug Dose 35.3 ml/min Estimated GFR () 65.3 Estimated GFR (Non- 56.4 BUN/Creatinine Ratio 25.4 Random Glucose 78 mg/dl Calcium Level 8.5 mg/dl Phosphorus Level 2.6 mg/dl Magnesium Level 2.1 mg/dl Total Bilirubin 0.5 mg/dl Aspartate Amino Transf (AST/SGOT) 16 U/L Alanine Aminotransferase (ALT/SGPT) 18 U/L Alkaline Phosphatase 82 U/L Total Protein 5.3 gm/dl Albumin 2.3 gm/dl Globulin 3.0 gm/dl Albumin/Globulin Ratio 0.8 Test 01/03/18 06:15 01/03/18 10:51 01/03/18 11:13 Bedside Glucose 82 mg/dl 65 mg/dl 96 mg/dl
[2018-01-03] MEDS: IPRATROPIUM BROMIDE/ALBUTEROL respimat INH INH SCH ×2 (17:24→20:53)
[2018-01-03] MEDS ORDERED: GUAIFENESIN SUGAR FREE 100 MG/5 ML UDC PO PRN (18:00)
--- NOTE | 2018-01-03 18:38 | Progress Note ---
Subjective Date of Service: Jan 03, 2018. Subjective Pt evaluation today including: conversation w/ patient, conversation w/ family (son, Jhonathan - at bedside), physical exam, chart review, lab review, review of studies (cxr), conversation w/ retail sales consultant (palliative care; critical care ), review of inpatient medication list Pain: none reported Voiding: walker catheter in place tele stable overnight amazingly the patient was able to avoid the vent overnight and remain on BIPAP with improving blood gases she was awake/alert this AM and stable on NC O2 denied any hemoptysis breathing was comfortable no complaints of pain Problem List Medical Problems: (1) Abdominal pain Status: Acute (2) Acute kidney injury superimposed on chronic kidney disease Status: Acute (3) Altered mental status Status: Acute (4) Anemia Status: Acute (5) Back pain Status: Acute (6) Bilateral pneumonia Status: Acute (7) CHF (congestive heart failure) Status: Acute (8) Chronic Kidney Disease, Stage Iii (Moderate) Status: Chronic (9) Chronic, continuous use of opioids Status: Acute (10) COPD exacerbation Status: Acute (11) COPD exacerbation Status: Acute (12) Crystal arthritis Status: Chronic (13) Dehydration Status: Acute (14) Dehydration Status: Acute (15) Duodenal bulb ulcer Status: Chronic (16) Dysuria Status: Acute (17) Failure of outpatient treatment Status: Acute (18) Failure of outpatient treatment Status: Acute (19) Gallbladder dilatation Status: Acute (20) Generalized weakness Status: Acute (21) Gout Status: Chronic (22) Hyperlipidemia Nec/Nos Status: Chronic (23) Hypertension Status: Chronic (24) Hypoxemia Status: Acute (25) Hypoxia Status: Acute (26) Hypoxia Status: Acute (27) Hypoxia Status: Acute (28) Hypoxia Status: Acute (29) Lumbar compression fracture Status: Chronic (30) Nausea & vomiting Status: Acute (31) Opiate use Status: Chronic (32) Osteoporosis Status: Chronic (33) Peripheral edema Status: Acute (34) Pneumonia Status: Acute (35) Pneumonia Status: Acute (36) Pneumonia involving right lung Status: Acute (37) Renal insufficiency Status: Acute (38) Respiratory acidosis Status: Acute (39) Respiratory distress Status: Acute (40) Right renal artery stenosis Status: Chronic (41) Secondary hyperparathyroidism Status: Chronic (42) UTI (urinary tract infection) Status: Acute Review of Systems Constitutional: No fever Respiratory: + cough, + sputum, + wheezing, No dyspnea at rest, No hemoptysis Cardiac: No chest pain, No edema Abdomen: + constipation, No pain Objective Vital Signs Date Time Temp Pulse Resp B/P (MAP) Pulse Ox O2 Delivery O2 Flow Rate FiO2 01/03/18 17:30 77 20 157/81 (106) 87 01/03/18 17:00 75 21 139/73 (95) 85 01/03/18 16:30 73 22 116/87 (97) 86 01/03/18 16:00 74 18 137/76 (96) 86 01/03/18 15:50 37.3 75 22 136/79 (98) 87 Nasal Cannula 4.0 01/03/18 15:22 71 22 87 Nasal Cannula 4.0 01/03/18 14:00 69 14 127/73 (91) 88 01/03/18 14:00 36.7 69 22 127/71 (89) 89 Nasal Cannula 4.0 01/03/18 13:30 76 17 123/74 (90) 88 01/03/18 13:00 73 16 117/67 (84) 87 01/03/18 12:30 79 16 111/70 (84) 89 01/03/18 12:00 81 17 130/79 (96) 98 01/03/18 11:58 68 18 97 Nasal Cannula 4.0 01/03/18 11:31 86 18 139/67 (91) 88 01/03/18 11:30 36.6 89 22 136/67 (90) 88 Nasal Cannula 4.0 01/03/18 11:30 80 16 88 01/03/18 11:00 36.4 80 20 136/67 (90) 96 BiPAP 45 01/03/18 08:00 BiPAP 45 01/03/18 08:00 36.4 74 16 146/67 (93) 96 BiPAP 45 01/03/18 07:29 74 15 100 BiPAP/CPAP 45 01/03/18 07:22 74 100 45 01/03/18 05:07 64 98 45 01/03/18 05:01 70 23 157/85 (109) 97 BiPAP 45 01/03/18 04:30 80 20 159/86 (110) 96 BiPAP 45 01/03/18 04:00 36.6 86 23 155/85 (108) 96 BiPAP 45 8/8/18 03:31 85 15 144/85 (104) 93 BiPAP 45 8/8/18 03:00 77 18 154/94 (114) 96 BiPAP 45 8/8/18 03:00 77 18 154/94 (114) 96 BiPAP 45 8/8/18 02:30 79 23 138/85 (102) 97 BiPAP 45 8/8/18 02:01 75 16 144/77 (99) 95 BiPAP 45 8/8/18 01:31 82 20 148/102 (117) 96 BiPAP 45 8/8/18 01:17 75 96 45 8/8/18 01:00 80 14 147/80 (102) 95 BiPAP 45 8/8/18 00:30 71 14 145/78 (100) 94 BiPAP 45 8/8/18 00:02 84 99 45 8/8/18 00:01 36.6 74 23 139/77 (97) 95 BiPAP 45 8/7/18 23:31 63 21 150/80 (103) 99 BiPAP 60 8/7/18 23:01 81 18 150/94 (112) 100 BiPAP 60 8/7/18 22:52 72 17 153/96 (115) 100 BiPAP 60 8/7/18 22:30 74 24 146/125 (132) 100 BiPAP 60 8/7/18 22:00 66 19 158/94 (115) 100 BiPAP 60 8/7/18 21:32 79 23 156/78 (104) 100 BiPAP 60 8/7/18 21:00 BiPAP 60 8/7/18 21:00 87 23 168/92 (117) 100 BiPAP 60 8/7/18 20:31 67 23 155/87 (109) 100 BiPAP 60 8/7/18 20:30 70 23 146/88 (107) 100 BiPAP 60 8/7/18 20:23 36.8 71 18 164/101 (122) 98 BiPAP 60 8/7/18 19:29 67 18 98 BiPAP/CPAP 60 Physical Exam General Appearance: no apparent distress, + thin, + pertinent finding (looks much better today; awake/alert) ENT: pharynx normal (thrush not seen) Neck: no JVD Respiratory/Chest: no respiratory distress, no accessory muscle use, + crackles , + wheezing Cardiovascular: regular rate, rhythm, no gallop, no murmur Abdomen: normal bowel sounds, non tender, soft, no organomegaly, + distended ( mild) Extremities: no pedal edema Neurologic/Psychiatric: alert, oriented x 3 Skin: no rash Comments: musculo - back - severe kyphoscoliosis Laboratory Results Last 24 Hours Test 01/02/18 18:45 01/02/18 23:56 01/03/18 04:44 01/03/18 05:08 Venous Blood pH 7.28 Venous Blood Partial Pressure CO2 89 mmHg Venous Blood Partial Pressure O2 44 mmHg Venous Blood HCO3 41 mmol/L Venous Blood Oxygen Saturation 75.6 % Venous Blood Base Excess 12.2 mEq/L Blood Gas Sample Site L Radial L Radial Bedside Blood Gas pH (LAB) 7.55 7.44 Bedside Blood Gas pCO2 (LAB) 46 mmHg 62 mmHg Bedside Blood Gas pO2 (LAB) 46 mmHg 89 mmHg Bedside Blood Gas HCO3 (LAB) 40 meq/L 42 meq/L Bedside Blood Gas Total CO2 > 40 mEq/l > 40 mEq/l Bedside Blood Gas Base Excess (LAB) 18.0 meq/L 18.0 meq/L Bedside Blood Gas O2 Saturation 86.0 % 97.0 % Leroy Test Pass Pass Oxygen Delivery Device BIPAP BIPAP Bedside Oxygen Rate (breaths/min) 12 12 Bedside FiO2 60 % 45 % Blood Gas IPAP 18 12 White Blood Count 24.78 K/uL Red Blood Count 3.15 M/uL Hemoglobin 9.4 g/dL Hematocrit 30.9 % Mean Corpuscular Volume 98.1 fL Mean Corpuscular Hemoglobin 29.8 pg Mean Corpuscular Hemoglobin Concent 30.4 g/dl Platelet Count 117 K/uL Mean Platelet Volume 13.3 fL Neutrophils (%) (Auto) 93.3 % Lymphocytes (%) (Auto) 1.6 % Monocytes (%) (Auto) 3.7 % Eosinophils (%) (Auto) 0.0 % Basophils (%) (Auto) 0.0 % Neutrophils # (Auto) 23.12 K/uL Lymphocytes # (Auto) 0.40 K/uL Monocytes # (Auto) 0.91 K/uL Eosinophils # (Auto) 0.00 K/uL Basophils # (Auto) 0.01 K/uL RDW Standard Deviation 57.1 fL RDW Coefficient of Variation 16.0 % Immature Granulocyte % (Auto) 1.4 % Immature Granulocyte # (Auto) 0.34 K/uL Platelet Estimate DECREASED Hypochromasia PRESENT Sodium Level 139 mmol/L Potassium Level 4.3 mmol/L Chloride Level 99 mmol/L Carbon Dioxide Level 38 mmol/L Anion Gap 2.0 mmol/L Blood Urea Nitrogen 26 mg/dl Creatinine 1.01 mg/dl Est Creatinine Clear Calc Drug Dose 35.3 ml/min Estimated GFR () 65.3 Estimated GFR (Non- 56.4 BUN/Creatinine Ratio 25.4 Random Glucose 78 mg/dl Calcium Level 8.5 mg/dl Phosphorus Level 2.6 mg/dl Magnesium Level 2.1 mg/dl Total Bilirubin 0.5 mg/dl Aspartate Amino Transf (AST/SGOT) 16 U/L Alanine Aminotransferase (ALT/SGPT) 18 U/L Alkaline Phosphatase 82 U/L Total Protein 5.3 gm/dl Albumin 2.3 gm/dl Globulin 3.0 gm/dl Albumin/Globulin Ratio 0.8 Test 01/03/18 06:15 01/03/18 10:51 01/03/18 11:13 01/03/18 15:44 Bedside Glucose 82 mg/dl 65 mg/dl 96 mg/dl 108 mg/dl Assessment and Plan 72yo female with: 1. acute/chronic hypoxic/hypercarbic respiratory failure - acute component remarkably better today. s/p ICU transfer last pm and BIPAP all night but fortunately improved clinical status and blood gases. Suspect sedatives have been causing depression in her respiratory drive ( methadone, and now tox screen with benzos yesterday - see below) or the Stenotrophomonas caused the acute worsening. Or combination of the two. Acute/chronic diastolic CHF + COPD exacerbation also contributing. Plan moving forward - BIPAP at HS, NC O2 during the day; minimize sedating medications. 2. b/l pneumonia, most likely aspiration, and now with gram negative jordan ( Stenotrophomonas) - she is day #9 of abx today. She has NOT had any antibiotic in several days that would have covered the Stenotrophomonas. She is currently on zosyn and levaquin (latter for Stenotrophomonas). 3. toxic & metabolic encephalopathy - improved. Toxic due to methadone, baclofen, lyrica, benzos, etc. Metabolic from CO2 narcosis. See above. 4. COPD with exacerbation - holding prednisone, cont IV solumedrol. 5. acute/chronic diastolic CHF - compensated. 6. recent occipital headaches - daily, persistent - resolved with use of verapamil prophylaxis. 7. HTN - controlled. 8. DVT proph - lovenox 30mg daily. H/H stable. 9. hemoptysis - resolved. this may have been due to epistaxis. She is s/p bronch earlier this stay without endobronchial lesion. 10. macrocytic anemia with low-normal folate and b12 levels - supplement folate 1mg daily and b12 1000mcg daily. 11. chronic pain syndrome - continue methadone. Has been on this for 4-5+ years. 12. stage 3 CKD - creatinine stable today. BMP am. 13. hypokalemia - replaced and resolved; BMP am. 14. constipation - nothing has helped thus far including go-lytely prep. If this is not successful then relistor. Since respiratory issues are improved would start the go-lytely again tomorrow. 15. epistaxis - resolved. 16. thrush - nystatin solution qid. Improved/resolved. 17. coag neg staph in blood cx - 1/2 sets this admission, similar to prior admission's blood cx's. Could the PICC be infected? If yes I would expect all bottles/sets to be persistently positive. Follow. appreciate critical care and palliative care consults labs in am BIPAP COSTA Ring, son, updated at bedside Continued [facility] stay due to: voiding difficulties, ambulation difficulties, multiple IV medications needed Discharge planning: custodial facility
[2018-01-03] MEDS: ENOXAPARIN 30 MG/0.3 ML SYR SQ SCH (20:56)
[2018-01-03] MEDS: ROSUVASTATIN CALCIUM 20 MG TAB PO SCH (20:57)
[2018-01-04] VITALS (27 sets, daily range): BP systolic 130–186; BP diastolic 76–98; PULSE 67–91; TEMP 37–37.4; O2SAT 88–96
[2018-01-04] MEDS: PIPERACILL/TAZOBAC IV 3.375 GM in DEXTROSE 5% 100ML 100 ML IV SCH ×3 (04:10→19:40)
[2018-01-04 05:13] LABS: HEMATOCRIT 31.7 % (37-47); HEMOGLOBIN 9.8 g/dL (12.0-16.0); MEAN CELL VOLUME 96.4 fL (80-100); MEAN CORPUSCULAR HEMOGLOBIN 29.8 pg (25-34); MEAN CORPUSCULAR HGB CONC 30.9 g/dl (32-36); MEAN PLATELET VOLUME 12.9 fL (7.4-10.4); PLATELET COUNT 124 K/uL (130-400); RED CELL DISTRIBUTION WIDTH CV 15.9 % (11.5-14.5); RED CELL DISTRIBUTION WIDTH SD 55.5 fL (36.4-46.3); WHITE BLOOD COUNT 24.37 K/uL (4.8-10.8)
[2018-01-04 05:24] LABS: POTASSIUM 3.8 mmol/L (3.5-5.1)
[2018-01-04] MEDS: METHYLPREDNISOLONE IV 20 MG in SYRINGE 0 ML IV SCH (05:43)
[2018-01-04] MEDS: ALBUT/IPRATROP 3MG/0.5MG NEB 3 ML VIAL INH SCH ×5 (07:14→22:58)
[2018-01-04] MEDS: IPRATROPIUM BROMIDE/ALBUTEROL respimat INH INH SCH (07:22)
[2018-01-04] MEDS: POLYETHYLENE (MIRALAX) 17 GM PACK PO SCH ×2 (09:00→20:33)
[2018-01-04] MEDS: DOCUSATE SODIUM 100 MG/10 ML UDC PO SCH ×2 (09:00→20:33)
[2018-01-04] MEDS: FLUTICASONE/SALMETEROL 250/50 (ADVAIR) 14 PUFF/1 INHALER INH SCH ×2 (09:15→20:31)
[2018-01-04] MEDS: MUPIROCIN 2% OINT 22 GM TUBE INTNAS SCH ×3 (09:15→20:31)
[2018-01-04] MEDS: HydrALAZINE 10 MG TAB PO SCH ×3 (09:16→20:35)
[2018-01-04] MEDS: CALCITONIN SALMON NA 200 IU/AC 3.7 ML BTL NAE SCH ×2 (09:16→09:36)
[2018-01-04] MEDS: VERAPAMIL HCL 120 MG TABCR PO SCH (09:16)
[2018-01-04] MEDS: METHADONE HCL 10 MG TAB PO SCH ×2 (09:17→20:41)
[2018-01-04] MEDS: CARVEDILOL 25 MG TAB PO SCH ×2 (09:17→20:35)
[2018-01-04] MEDS: PANTOprazole SOD 40 MG TAB PO SCH ×2 (09:18→20:34)
[2018-01-04] MEDS: CYANOCOBALAMIN 500 MCG TAB (VIT B-12) PO SCH (09:18)
[2018-01-04] MEDS: NYSTATIN SUSP 500,000 U/5 ML UDC PO SCH ×4 (09:18→20:33)
[2018-01-04] MEDS: THIAMINE HCL 100 MG TAB PO SCH (09:19)
[2018-01-04] MEDS: CHOLECALCIFEROL 1000 INTER.UNIT TAB PO SCH (09:19)
[2018-01-04] MEDS: ALLOPURINOL 100 MG TAB PO SCH ×2 (09:20→20:36)
[2018-01-04] MEDS: GABAPENTIN 100 MG CAP PO SCH ×3 (10:00→20:36)
--- NOTE | 2018-01-04 11:49 | Critical Care Progress Note ---
Critical Care Progress Note Date of Service Jan 04, 2018. Attending Dr. Rondon Subjective The patient continued to do well, she is not somnolent anymore, she could not tolerate the BiPAP for more than 4 hours and she felt that she did not have enough sleep with the use of the BiPAP. She stated that she would like to go on oxygen only and if she end up with CO2 retention to the point that she lose her consciousness, she would like to be comfort measures only. This has been discussed with her in front of her son at the bedside. She does have cough with minimal sputum production. No chest pain was reported. Her chief complaint is pain in the lower extremities due to peripheral neuropathy. Objective General: Alert. Skin: Warm, dry, Head: Atraumatic Ears, nose, mouth and throat: Airway patent, NG tube present Cardiovascular: Normal peripheral perfusion Respiratory: Scattered rhonchi Gastrointestinal: Non distended Musculoskeletal: No deformity Physical exam on 01/13/2018 revealed vital signs remains stable, O2 sat 88% on nasal cannula, severe kyphoscoliosis, S1-S2 regular rate and rhythm with occasional PVCs, bilateral rhonchi but distance breath sounds, abdomen is benign , trace edema in the periphery. Her laboratory showed acute on chronic hypercapnic respiratory failure, WBC elevated due to steroids, microbiology showed stenotrophomonas in the sputum. Chest x-ray was reviewed which showed subsegmental atelectasis bilaterally. Physical exam on 01/04/2018 showed vital signs are stable, her O2 sat is 94% on a nasal cannula, severe kyphoscoliosis, S1-S2 regular rate and rhythm, distant breath sounds with rhonchi mainly, abdomen is soft and benign, severe deformities of her spine, lower extremities without edema, her labs has been reviewed as well. Hypercapnia was noted. Assessment & Plan 1. Acute on chronic hypoxic and hypercapnic respiratory failure requiring BiPAP. She is not tolerating the BiPAP. Apparently she has not been using it even at the retirement. 2. COPD, gold level 3. Home O2 dependent. 3. Severe restrictive physiology due to severe kyphoscoliosis with Abarca angle more than 120. 4. Bilateral atelectasis causing volume loss. 5. Chronic pain mainly in the back and lower extremities with peripheral neuropathy. Plan: 1. Decrease methadone to 25 mg p.o. twice daily. 2. Continue with baclofen 5 mg 3 times daily. 3. The patient could not tolerate Lyrica even at 25 mg at bedtime dose which resulted in significant somnolence. 4. I will start the patient on Neurontin 100 mg p.o. 3 times daily. 5. The patient will try the BiPAP today at 10/5 pressure and if she cannot tolerate it she would like to be off the BiPAP entirely. 6. Except O2 sat between 85-90% only. 7. Continue with oral intake although the patient at high risk of aspiration. 8. In discussion with the patient herself, she would like to go off the BiPAP if she cannot tolerate it, and if her respiratory status deteriorated or become comatose, to activate comfort measures only. She feels she has been ready for it. 9. Meanwhile, I will check with the special education case manager to evaluate for trilogy which would be an ideal option for her since she does not tolerate the BiPAP. If she cannot tolerate trilogy as well there would not be much of an option for positive pressure ventilation treatment. I do believe that is only option for this patient if she would like to continue with ongoing care. The patient has both obstructive and restrictive physiology which will place her at chronic respiratory failure with frequent decompensations without positive pressure ventilation. 10. Discontinue Zosyn after 7 days. 11. Change the patient to prednisone 50 mg p.o. daily. 12. Discontinue Cymbalta. 13. Discontinue Combivent. 14. Continue with DuoNeb. The patient will have better delivery of the medicine using tidal volume breathing than breathing to FRC. Case discussed in details with the staff on rounds and with the family and with palliative care, appreciate all involved in her care. Discussed with the Goyo and appreciate his input. Critical care time spent with the patient was 45 minutes. Consults & Procedures Consultants: Infectious disease: Cherelle Data Medications: Current Inpatient Medications Medications (Trade) Dose Ordered Sig/Estephania Route Start Time Stop Time Status Last Admin Dose Admin Acetaminophen (Tylenol Tab) 650 mg Q4H PRN PO 12/26/17 22:45 01/25/18 22:44 Allopurinol (Zyloprim Tab) 100 mg BID PO 12/27/17 09:00 01/26/18 08:59 01/04/18 09:20 100 MG Calcitonin [place] (Fortical Nasal [place]) 1 spray QAM ERIC 12/27/17 09:00 01/26/18 08:59 01/03/18 09:00 1 SPRAY Carvedilol (Coreg Tab) 25 mg BID PO 12/27/17 09:00 01/26/18 08:59 01/04/18 09:17 25 MG Salmeterol Xinafoate/ Fluticasone (Advair Diskus 250/50 Inh) 1 puff BID INH 12/27/17 09:00 01/26/18 08:59 01/04/18 09:15 1 PUFF Rosuvastatin Calcium (Crestor Tab) 20 mg QPM PO 12/27/17 21:00 01/26/18 20:59 01/03/18 20:57 20 MG Enoxaparin Sodium (Lovenox Inj) 30 mg HS SQ 12/27/17 21:00 01/26/18 20:59 01/03/18 20:56 30 MG Docusate Sodium (coLACE SYRUP) 100 mg BID PO 12/27/17 21:00 01/25/18 23:14 01/03/18 20:54 100 MG Heparin Sodium (Porcine) (Heparin 10 Unit/ ml 5 ml Flush) 5 ml PRN PRN FLUSH 12/27/17 23:15 01/26/18 23:14 Polyethylene (Miralax Powder Packet) 17 gm BID PO 12/29/17 21:00 01/25/18 23:14 01/03/18 21:13 17 GM Verapamil HCl (Calan-Sr Tab) 120 mg QAM PO 12/30/17 09:00 01/29/18 08:59 01/04/18 09:16 120 MG Pantoprazole Sodium (Protonix Tab) 40 mg BID PO 12/29/17 21:00 01/28/18 20:59 01/04/18 09:18 40 MG Thiamine HCl (Vitamin B-1 Tab) 200 mg QAM PO 12/30/17 09:00 01/29/18 08:59 01/04/18 09:19 200 MG Cholecalciferol (Vitamin D Tab) 4,000 inter.unit QAM PO 12/30/17 09:00 01/29/18 08:59 01/04/18 09:19 4,000 INTER.UNIT Folic Acid (Folvite Tab) 1 mg QAM PO 12/31/17 09:00 01/30/18 08:59 01/04/18 09:18 1 MG Cyanocobalamin (Vitamin B-12 Tab) 1,000 mcg QAM PO 12/31/17 09:00 01/30/18 08:59 01/04/18 09:18 1,000 MCG Albuterol/ Ipratropium (Duoneb) 3 ml Q4HWA INH 12/30/17 16:00 01/29/18 15:59 01/04/18 11:26 3 ML Pregabalin (Lyrica Cap) 25 mg HS PO 12/31/17 21:00 01/26/18 08:59 Future Hold 01/01/18 21:03 25 MG Nystatin (Mycostatin Susp) 5 ml QID PO 12/31/17 13:00 01/10/18 12:59 01/04/18 09:18 5 ML Mupirocin (Bactroban 2% Oint) 1 appln TID INTNAS 12/31/17 14:00 01/30/18 13:59 01/04/18 09:15 1 APPLN Sodium Chloride ([place] Nasal [place]) 2 sprays Q1H PRN NA 01/01/18 03:00 01/31/18 02:59 Hydralazine HCl (Apresoline Tab) 10 mg TID PO 01/01/18 09:00 01/26/18 08:59 01/04/18 09:16 10 MG Menthol (Nice Mady) 1 mady Q1H PRN MADY 01/01/18 16:15 01/31/18 16:14 Piperacillin Sod/ Tazobactam Sod 3.375 gm/Dextrose 115 ml @ 28.75 mls/ hr Q8H IV 01/02/18 20:00 01/09/18 19:59 01/04/18 04:10 28.75 MLS/HR Miscellaneous Information (Consult) 1 ea UD PRN N/A 01/02/18 14:30 02/01/18 14:29 Methadone HCl (Dolophine Tab) 25 mg BID PO 01/02/18 21:00 01/10/18 08:59 Future hold 01/04/18 09:17 25 MG Guaifenesin (Robitussin Sugar Free Syrup) 100 mg Q6H PRN PO 01/03/18 18:00 02/02/18 17:59 Gabapentin (Neurontin Cap) 100 mg TID PO 01/04/18 09:00 02/03/18 08:59 01/04/18 10:00 100 MG Prednisone (PredniSONE TAB) 50 mg DAILY PO 01/04/18 09:00 02/03/18 08:59 01/04/18 10:00 50 MG Vital Signs: Date Time Temp Pulse Resp B/P (MAP) Pulse Ox O2 Delivery O2 Flow Rate FiO2 01/04/18 11:28 83 16 91 Nasal Cannula 4.0 01/04/18 10:00 85 21 150/84 (106) 93 Nasal Cannula 4.0 01/04/18 08:00 37.0 83 16 146/84 (104) 91 Nasal Cannula 4.0 01/04/18 08:00 90 Nasal Cannula 4.0 01/04/18 08:00 Nasal Cannula 01/04/18 08:00 Nasal Cannula BiPAP 01/04/18 07:17 79 17 90 Nasal Cannula 4.0 01/04/18 06:01 78 19 130/90 (103) 95 01/04/18 05:01 77 16 136/76 (96) 89 Nasal Cannula 4.0 01/04/18 04:01 37.3 91 22 155/82 (106) 93 BiPAP 01/04/18 03:00 74 16 161/91 (114) 94 BiPAP 01/04/18 02:01 78 22 172/98 (122) 93 BiPAP 01/04/18 01:40 70 94 40 01/04/18 01:00 67 12 156/92 (113) 94 BiPAP 01/04/18 00:08 70 96 40 01/04/18 00:01 37.2 76 21 144/93 (110) 92 BiPAP 01/03/18 23:00 67 23 143/87 (105) 95 01/03/18 21:30 82 21 139/82 (101) 90 Nasal Cannula 4.0 01/03/18 21:01 89 20 152/81 (104) 91 Nasal Cannula 4.0 01/03/18 20:01 37.1 83 26 136/77 (96) 88 01/03/18 20:00 89 Nasal Cannula 4.0 01/03/18 19:20 77 18 89 Nasal Cannula 4.0 01/03/18 19:00 89 20 135/91 (106) 88 Nasal Cannula 4.0 01/03/18 17:30 77 20 157/81 (106) 87 01/03/18 17:00 75 21 139/73 (95) 85 01/03/18 16:30 73 22 116/87 (97) 86 01/03/18 16:00 74 18 137/76 (96) 86 01/03/18 15:50 37.3 75 22 136/79 (98) 87 Nasal Cannula 4.0 01/03/18 15:22 71 22 87 Nasal Cannula 4.0 01/03/18 14:00 69 14 127/73 (91) 88 01/03/18 14:00 36.7 69 22 127/71 (89) 89 Nasal Cannula 4.0 01/03/18 13:30 76 17 123/74 (90) 88 01/03/18 13:00 73 16 117/67 (84) 87 01/03/18 12:30 79 16 111/70 (84) 89 01/03/18 12:00 81 17 130/79 (96) 98 01/03/18 11:58 68 18 97 Nasal Cannula 4.0 Laboratory Results: Last 24 Hours Test 01/03/18 15:44 01/03/18 21:22 01/04/18 04:48 01/04/18 11:34 Bedside Glucose 108 mg/dl 88 mg/dl 148 mg/dl White Blood Count 24.37 K/uL Red Blood Count 3.29 M/uL Hemoglobin 9.8 g/dL Hematocrit 31.7 % Mean Corpuscular Volume 96.4 fL Mean Corpuscular Hemoglobin 29.8 pg Mean Corpuscular Hemoglobin Concent 30.9 g/dl RDW Standard Deviation 55.5 fL RDW Coefficient of Variation 15.9 % Platelet Count 124 K/uL Mean Platelet Volume 12.9 fL Sodium Level 139 mmol/L Potassium Level 3.8 mmol/L Chloride Level 99 mmol/L Carbon Dioxide Level 36 mmol/L Anion Gap 4.0 mmol/L Blood Urea Nitrogen 24 mg/dl Creatinine 1.00 mg/dl Est Creatinine Clear Calc Drug Dose 35.7 ml/min Estimated GFR () 66.1 Estimated GFR (Non- 57.0 BUN/Creatinine Ratio 24.2 Random Glucose 79 mg/dl Calcium Level 8.0 mg/dl
--- NOTE | 2018-01-04 18:38 | Palliative Care Progress Note ---
Palliative Care Progress Note Date of Service Jan 04, 2018. Subjective Pt evaluation today including: conversation w/ patient, conversation w/ family , physical exam, chart review, conversation w/ skin care consultant Pain: Patient denies pain on exam PO Intake: Fair Voiding: walker catheter in place Met with patient and son at bedside-patient wishes to fill out a POLST form with her son present. Reviewed patient's current status of DNR, patient wishes to return to [facility] with goal of comfort care, patient does wish to possibly return to the hospital if something can be reversed i.e. dehydration. Patient would want antibiotics if they would be helpful, does not want any artificial feedings, will except short-term IV fluids. Discussed the role of hospice after discharge. Discussed several end-of-life issues with patient and son -patient's greatest concern is air hunger, reassured patient that that can be easily managed, patient concerned that she is on opioids for chronic pain and that further opioids may not be sufficient to control her air hunger. Reassured patient that she would receive whatever dosages were necessary to keep her comfortable. Patient named her son as her healthcare surrogate. Review of Systems Constitutional: No fever, No chills ENT: + hearing loss Respiratory: + shortness of breath, + dyspnea at rest Cardiac: + orthopnea Abdomen: No pain Neurologic: + weakness, No memory loss Psychiatric: No depression symptoms Endo: + fatigue Objective Vital Signs Date Time Temp Pulse Resp B/P (MAP) Pulse Ox O2 Delivery O2 Flow Rate FiO2 01/04/18 18:01 80 18 177/97 (123) 91 Nasal Cannula 4.0 01/04/18 16:45 75 18 182/84 (116) 88 Nasal Cannula 4.0 01/04/18 16:00 Nasal Cannula 4.0 01/04/18 15:58 75 18 92 Nasal Cannula 4.0 01/04/18 14:00 37.0 74 21 161/91 (114) 91 Nasal Cannula 4.0 01/04/18 12:00 69 15 156/88 (110) 93 Nasal Cannula 4.0 01/04/18 11:28 83 16 91 Nasal Cannula 4.0 01/04/18 10:00 85 21 150/84 (106) 93 Nasal Cannula 4.0 01/04/18 08:00 37.0 83 16 146/84 (104) 91 Nasal Cannula 4.0 01/04/18 08:00 90 Nasal Cannula 4.0 01/04/18 08:00 Nasal Cannula 01/04/18 08:00 Nasal Cannula BiPAP 01/04/18 07:17 79 17 90 Nasal Cannula 4.0 01/04/18 06:01 78 19 130/90 (103) 95 01/04/18 05:01 77 16 136/76 (96) 89 Nasal Cannula 4.0 01/04/18 04:01 37.3 91 22 155/82 (106) 93 BiPAP 01/04/18 03:00 74 16 161/91 (114) 94 BiPAP 01/04/18 02:01 78 22 172/98 (122) 93 BiPAP 01/04/18 01:40 70 94 40 01/04/18 01:00 67 12 156/92 (113) 94 BiPAP 01/04/18 00:08 70 96 40 01/04/18 00:01 37.2 76 21 144/93 (110) 92 BiPAP 01/03/18 23:00 67 23 143/87 (105) 95 01/03/18 21:30 82 21 139/82 (101) 90 Nasal Cannula 4.0 01/03/18 21:01 89 20 152/81 (104) 91 Nasal Cannula 4.0 01/03/18 20:01 37.1 83 26 136/77 (96) 88 01/03/18 20:00 89 Nasal Cannula 4.0 01/03/18 19:20 77 18 89 Nasal Cannula 4.0 01/03/18 19:00 89 20 135/91 (106) 88 Nasal Cannula 4.0 Physical Exam General Appearance: + pertinent finding (Mild distress at rest, increased dyspnea with conversation, patient able to say approximately half a sentence between breaths) Eyes: EOMI ENT: + pertinent finding (Mild hard of hearing) Respiratory/Chest: + decreased breath sounds Cardiovascular: regular rate, rhythm Abdomen: soft Extremities: normal inspection Neurologic/Psychiatric: alert, oriented x 3 Laboratory Results Last 24 Hours Test 01/03/18 21:22 01/04/18 04:48 01/04/18 11:34 01/04/18 17:19 Bedside Glucose 88 mg/dl 148 mg/dl 104 mg/dl White Blood Count 24.37 K/uL Red Blood Count 3.29 M/uL Hemoglobin 9.8 g/dL Hematocrit 31.7 % Mean Corpuscular Volume 96.4 fL Mean Corpuscular Hemoglobin 29.8 pg Mean Corpuscular Hemoglobin Concent 30.9 g/dl RDW Standard Deviation 55.5 fL RDW Coefficient of Variation 15.9 % Platelet Count 124 K/uL Mean Platelet Volume 12.9 fL Sodium Level 139 mmol/L Potassium Level 3.8 mmol/L Chloride Level 99 mmol/L Carbon Dioxide Level 36 mmol/L Anion Gap 4.0 mmol/L Blood Urea Nitrogen 24 mg/dl Creatinine 1.00 mg/dl Est Creatinine Clear Calc Drug Dose 35.7 ml/min Estimated GFR () 66.1 Estimated GFR (Non- 57.0 BUN/Creatinine Ratio 24.2 Random Glucose 79 mg/dl Calcium Level 8.0 mg/dl Assessment and Plan (1) Palliative care encounter Assessment & Plan: Completed POLST form, patient is to be a DNR, patient signed herself, patient given copies, son given original to deliver to [facility]. Patient named her son as her healthcare surrogate. Discussed the benefit of returning to [facility] with hospice care-son agreeable, patient to consider option (2) COPD (chronic obstructive pulmonary disease) Status: Chronic Assessment & Plan: Patient now end-stage COPD, patient refusing further BiPAP, wishes to be kept comfortable by any means necessary (3) Acute respiratory failure with hypoxia Assessment & Plan: Patient required intubation, was eventually extubated, does not tolerate BiPAP. (4) Altered mental status Assessment & Plan: Resolved-patient alert and oriented on exam, able to make her own medical decisions. Palliative Performance Scale: 40 % Continued [facility] stay due to: voiding difficulties, ambulation difficulties, multiple IV medications needed [facility]charge planning: [facility] Counseling and Coordination Total time spent 35 minutes with greater than 50's percent of the time spent at bedside discussing patient's CODE STATUS, goals of care, and completing POLST form
[2018-01-04] MEDS: ROSUVASTATIN CALCIUM 20 MG TAB PO SCH (20:32)
[2018-01-04] MEDS: TRAZODONE HCL 50 MG TAB PO SCH (20:32)
[2018-01-04] MEDS: ENOXAPARIN 30 MG/0.3 ML SYR SQ SCH (20:34)
[2018-01-05] VITALS (17 sets, daily range): BP systolic 124–182; BP diastolic 66–99; PULSE 57–82; TEMP 37.2–37.5; O2SAT 88–97
--- NOTE | 2018-01-05 01:07 | Progress Note ---
Subjective Date of Service: Jan 04, 2018. Subjective Pt evaluation today including: conversation w/ patient, conversation w/ family (sonJhonathan), physical exam, chart review, lab review, conversation w/ senior recruitment consultant (pulmonary; palliative care), review of inpatient medication list Pain: none; no headaches, no abd pain PO Intake: improved Voiding: walker catheter in place patient states she "hates the BIPAP and will not use it if she has another night like last night" she inquires about use of a sleep aid as she sleeps poorly at night-time this is a chronic issue and she has tried numerous medications over the years for it still with cough; mildly productive; no blood no dyspnea at rest in the presence of myself and her son, Jhonathan, patient states she would NOT want intubation/mech ventilation under any circumstances had large bowel movement; abdomen feels better Problem List Medical Problems: (1) Abdominal pain Status: Acute (2) Acute kidney injury superimposed on chronic kidney disease Status: Acute (3) Altered mental status Status: Acute (4) Anemia Status: Acute (5) Back pain Status: Acute (6) Bilateral pneumonia Status: Acute (7) CHF (congestive heart failure) Status: Acute (8) Chronic Kidney Disease, Stage Iii (Moderate) Status: Chronic (9) Chronic, continuous use of opioids Status: Acute (10) COPD exacerbation Status: Acute (11) COPD exacerbation Status: Acute (12) Crystal arthritis Status: Chronic (13) Dehydration Status: Acute (14) Dehydration Status: Acute (15) Duodenal bulb ulcer Status: Chronic (16) Dysuria Status: Acute (17) Failure of outpatient treatment Status: Acute (18) Failure of outpatient treatment Status: Acute (19) Gallbladder dilatation Status: Acute (20) Generalized weakness Status: Acute (21) Gout Status: Chronic (22) Hyperlipidemia Nec/Nos Status: Chronic (23) Hypertension Status: Chronic (24) Hypoxemia Status: Acute (25) Hypoxia Status: Acute (26) Hypoxia Status: Acute (27) Hypoxia Status: Acute (28) Hypoxia Status: Acute (29) Lumbar compression fracture Status: Chronic (30) Nausea & vomiting Status: Acute (31) Opiate use Status: Chronic (32) Osteoporosis Status: Chronic (33) Peripheral edema Status: Acute (34) Pneumonia Status: Acute (35) Pneumonia Status: Acute (36) Pneumonia involving right lung Status: Acute (37) Renal insufficiency Status: Acute (38) Respiratory acidosis Status: Acute (39) Respiratory distress Status: Acute (40) Right renal artery stenosis Status: Chronic (41) Secondary hyperparathyroidism Status: Chronic (42) UTI (urinary tract infection) Status: Acute Review of Systems Constitutional: No fever Respiratory: No dyspnea at rest, No hemoptysis Cardiac: No chest pain Abdomen: No pain Objective Vital Signs Date Time Temp Pulse Resp B/P (MAP) Pulse Ox O2 Delivery O2 Flow Rate FiO2 01/04/18 18:01 80 18 177/97 (123) 91 Nasal Cannula 4.0 01/04/18 16:45 75 18 182/84 (116) 88 Nasal Cannula 4.0 01/04/18 16:00 Nasal Cannula 4.0 01/04/18 15:58 75 18 92 Nasal Cannula 4.0 01/04/18 14:00 37.0 74 21 161/91 (114) 91 Nasal Cannula 4.0 01/04/18 12:00 69 15 156/88 (110) 93 Nasal Cannula 4.0 01/04/18 11:28 83 16 91 Nasal Cannula 4.0 01/04/18 10:00 85 21 150/84 (106) 93 Nasal Cannula 4.0 01/04/18 08:00 37.0 83 16 146/84 (104) 91 Nasal Cannula 4.0 01/04/18 08:00 90 Nasal Cannula 4.0 01/04/18 08:00 Nasal Cannula 01/04/18 08:00 Nasal Cannula BiPAP 01/04/18 07:17 79 17 90 Nasal Cannula 4.0 01/04/18 06:01 78 19 130/90 (103) 95 01/04/18 05:01 77 16 136/76 (96) 89 Nasal Cannula 4.0 01/04/18 04:01 37.3 91 22 155/82 (106) 93 BiPAP 01/04/18 03:00 74 16 161/91 (114) 94 BiPAP 01/04/18 02:01 78 22 172/98 (122) 93 BiPAP 01/04/18 01:40 70 94 40 01/04/18 01:00 67 12 156/92 (113) 94 BiPAP 01/04/18 00:08 70 96 40 01/04/18 00:01 37.2 76 21 144/93 (110) 92 BiPAP 01/03/18 23:00 67 23 143/87 (105) 95 01/03/18 21:30 82 21 139/82 (101) 90 Nasal Cannula 4.0 01/03/18 21:01 89 20 152/81 (104) 91 Nasal Cannula 4.0 Physical Exam General Appearance: no apparent distress, + cachetic, + thin ENT: pharynx normal (thrush resolved) Neck: no JVD Respiratory/Chest: no respiratory distress, no accessory muscle use, + wheezing Cardiovascular: regular rate, rhythm, no gallop, no murmur Abdomen: normal bowel sounds, non tender, soft, no organomegaly Extremities: no pedal edema Neurologic/Psychiatric: alert, oriented x 3, + motor weakness (b/l foot drop) Skin: + pertinent finding (PICC line, RUE - clean) Comments: back with severe kyphoscoliosis Laboratory Results Last 24 Hours Test 01/03/18 21:22 01/04/18 04:48 01/04/18 11:34 01/04/18 17:19 Bedside Glucose 88 mg/dl 148 mg/dl 104 mg/dl White Blood Count 24.37 K/uL Red Blood Count 3.29 M/uL Hemoglobin 9.8 g/dL Hematocrit 31.7 % Mean Corpuscular Volume 96.4 fL Mean Corpuscular Hemoglobin 29.8 pg Mean Corpuscular Hemoglobin Concent 30.9 g/dl RDW Standard Deviation 55.5 fL RDW Coefficient of Variation 15.9 % Platelet Count 124 K/uL Mean Platelet Volume 12.9 fL Sodium Level 139 mmol/L Potassium Level 3.8 mmol/L Chloride Level 99 mmol/L Carbon Dioxide Level 36 mmol/L Anion Gap 4.0 mmol/L Blood Urea Nitrogen 24 mg/dl Creatinine 1.00 mg/dl Est Creatinine Clear Calc Drug Dose 35.7 ml/min Estimated GFR () 66.1 Estimated GFR (Non- 57.0 BUN/Creatinine Ratio 24.2 Random Glucose 79 mg/dl Calcium Level 8.0 mg/dl Assessment and Plan 72yo female with: 1. acute/chronic hypoxic/hypercarbic respiratory failure - acute component resolving. s/p ICU transfer 2 days ago for severe CO2 narcosis. Intubation avoided with use of BIPAP. Suspect sedatives have been causing depression in her respiratory drive ( methadone, and now tox screen with benzos - see below) or the Stenotrophomonas caused the acute worsening. Or combination of the two. Acute/chronic diastolic CHF + COPD exacerbation also contributed. Plan moving forward - BIPAP at HS, NC O2 during the day; minimize sedating medications. Pt dislikes the BIPAP - at d/c would refer to pulmonary and see if nasal pillows can be obtained. 2. b/l pneumonia, most likely aspiration, and now with gram negative jordan ( Stenotrophomonas) - she is day #10 of abx today. She has NOT had any antibiotic in several days that would have covered the Stenotrophomonas. She is currently on zosyn. Would change to levaquin tomorrow in order to cover the Stenotrophomonas and other gram negatives. 3. toxic & metabolic encephalopathy - resolved. Toxic due to methadone, baclofen, lyrica, benzos, etc. Metabolic from CO2 narcosis. 4. COPD with exacerbation - improving; deferring steroid management to pulmonary. 5. acute/chronic diastolic CHF - compensated. 6. recent occipital headaches - daily, persistent - resolved with use of verapamil prophylaxis. 7. HTN - controlled. 8. DVT proph - lovenox 30mg daily. H/H stable. 9. hemoptysis - resolved. this may have been due to epistaxis. She is s/p bronch earlier this stay without endobronchial lesion. 10. macrocytic anemia with low-normal folate and b12 levels - supplement folate 1mg daily and b12 1000mcg daily. 11. chronic pain syndrome - continue methadone but dose has been cut back due to concerns about sedation. Has been on this for 4-5+ years. 12. stage 3 CKD - creatinine stable today. 13. insomnia - after much discussion will try trazodone 25mg HS. 14. constipation - finally improved. Good candidate for movantik given her chronic narcotic usage. 15. epistaxis - resolved. 16. thrush - nystatin solution qid. resolved. 17. coag neg staph in blood cx - 1/2 sets this admission, similar to prior admission's blood cx's. Could the PICC be infected? If yes I would have expected all bottles/sets to have been persistently positive. No Rx; follow. 18. +tox screen for benzos - await final results. I spoke with pharmacy - they do not feel the versed early on in her stay should have caused the tox to be + given the short half-life. Theoretically possible the valium taken on 12/26/17 caused the tox to be + but again should have been out of her system at time of tox screen. Simply await the final results. appreciate critical care and palliative care consults labs in am BIPAP [place] Ring, son, updated at bedside once again patient is now level 5 DNR observe in ICU overnight; transfer to tele tomorrow Continued [facility] stay due to: voiding difficulties, ambulation difficulties, multiple IV medications needed Discharge planning: [facility] facility
[2018-01-05] MEDS: PIPERACILL/TAZOBAC IV 3.375 GM in DEXTROSE 5% 100ML 100 ML IV SCH ×3 (04:39→20:52)
[2018-01-05] MEDS: ALBUT/IPRATROP 3MG/0.5MG NEB 3 ML VIAL INH SCH ×5 (04:45→20:05)
[2018-01-05 05:11] LABS: MEAN CORPUSCULAR HGB CONC 30.9 g/dl (32-36)
[2018-01-05 05:33] LABS: HEMATOCRIT 32.8 % (37-47); HEMOGLOBIN 10.3 g/dL (12.0-16.0); MEAN CELL VOLUME 95.9 fL (80-100); MEAN CORPUSCULAR HEMOGLOBIN 30.1 pg (25-34); RED CELL DISTRIBUTION WIDTH CV 15.9 % (11.5-14.5); RED CELL DISTRIBUTION WIDTH SD 54.8 fL (36.4-46.3); WHITE BLOOD COUNT 25.88 K/uL (4.8-10.8)
[2018-01-05 05:42] LABS: MEAN PLATELET VOLUME 12.8 fL (7.4-10.4); PLATELET COUNT 134 K/uL (130-400)
[2018-01-05 05:43] LABS: BASO % 0.1 %; BASO ABS # 0.02 K/uL (0-0.2); EOS ABS # 0.01 K/uL (0-0.5); IG# 0.26 K/uL (0.00-0.02); LYMPH % 5.4 %; MONO % 4.9 %; MONO ABS # 1.28 K/uL (0.11-0.59); NEUT % 88.6 %; NEUT ABS # 22.91 K/uL (1.4-6.5)
[2018-01-05 05:51] LABS: CALCIUM 8.2 mg/dl (8.5-10.1); CREATININE 1.02 mg/dl (0.60-1.20); POTASSIUM 3.1 mmol/L (3.5-5.1)
[2018-01-05] MEDS: POLYETHYLENE (MIRALAX) 17 GM PACK PO SCH ×2 (09:00→21:00)
[2018-01-05] MEDS: DOCUSATE SODIUM 100 MG/10 ML UDC PO SCH ×2 (09:00→21:00)
[2018-01-05] MEDS: FLUTICASONE/SALMETEROL 250/50 (ADVAIR) 14 PUFF/1 INHALER INH SCH ×2 (09:09→20:52)
[2018-01-05] MEDS: HydrALAZINE 10 MG TAB PO SCH ×3 (09:10→21:00)
[2018-01-05] MEDS: VERAPAMIL HCL 120 MG TABCR PO SCH (09:10)
[2018-01-05] MEDS: MUPIROCIN 2% OINT 22 GM TUBE INTNAS SCH ×3 (09:10→20:53)
[2018-01-05] MEDS: CARVEDILOL 25 MG TAB PO SCH ×2 (09:11→21:01)
[2018-01-05] MEDS: METHADONE HCL 10 MG TAB PO SCH ×2 (09:11→21:03)
[2018-01-05] MEDS: NYSTATIN SUSP 500,000 U/5 ML UDC PO SCH ×4 (09:12→21:05)
[2018-01-05] MEDS: GABAPENTIN 100 MG CAP PO SCH ×3 (09:12→21:04)
[2018-01-05] MEDS: THIAMINE HCL 100 MG TAB PO SCH (09:13)
[2018-01-05] MEDS: PANTOprazole SOD 40 MG TAB PO SCH ×2 (09:13→21:04)
[2018-01-05] MEDS: ALLOPURINOL 100 MG TAB PO SCH ×2 (09:14→21:05)
[2018-01-05] MEDS: CYANOCOBALAMIN 500 MCG TAB (VIT B-12) PO SCH (09:14)
[2018-01-05] MEDS: CHOLECALCIFEROL 1000 INTER.UNIT TAB PO SCH (09:14)
[2018-01-05] MEDS ORDERED: POTASSIUM CHLORIDE 10 MEQ TABCR PO STA (09:24)
--- NOTE | 2018-01-05 11:35 | Critical Care Progress Note ---
Critical Care Progress Note Date of Service Jan 05, 2018. Attending Dr. Rondon Subjective The patient could not tolerate the BiPAP overnight, she was adamant about not using it although it was at the very low dose at 10/5. The patient would like to continue with her current regimen, including respiratory therapy as well as oxygen, and in the event she goes into hypercapnia in a coma, she would favor being placed on comfort measures only. By her own words she said I am ready. Objective General: Alert. Skin: Warm, dry, Head: Atraumatic Ears, nose, mouth and throat: Airway patent, NG tube present Cardiovascular: Normal peripheral perfusion Respiratory: Scattered rhonchi Gastrointestinal: Non distended Musculoskeletal: No deformity Physical exam on 01/13/2018 revealed vital signs remains stable, O2 sat 88% on nasal cannula, severe kyphoscoliosis, S1-S2 regular rate and rhythm with occasional PVCs, bilateral rhonchi but distance breath sounds, abdomen is benign , trace edema in the periphery. Her laboratory showed acute on chronic hypercapnic respiratory failure, WBC elevated due to steroids, microbiology showed stenotrophomonas in the sputum. Chest x-ray was reviewed which showed subsegmental atelectasis bilaterally. Physical exam on 01/04/2018 showed vital signs are stable, her O2 sat is 94% on a nasal cannula, severe kyphoscoliosis, S1-S2 regular rate and rhythm, distant breath sounds with rhonchi mainly, abdomen is soft and benign, severe deformities of her spine, lower extremities without edema, her labs has been reviewed as well. Hypercapnia was noted. Physical exam on 01/05/2018 showed vital signs are stable with O2 sat of 91% on 5 L which is what she was at home. She does have an enlarged salivary gland bilaterally, S1-S2 regular rate and rhythm, distant breath sounds but no wheezing, abdomen is benign, severe kyphoscoliosis, no edema. Neurologically she is intact and competent to make a decision. Her labs also were reviewed from today. Assessment & Plan 1. Acute on chronic hypoxic and hypercapnic respiratory failure requiring BiPAP. She refused the BiPAP, and she would like to use only oxygen. 2. COPD, gold level 3. Home O2 dependent at 5 L/min at baseline.. 3. Severe restrictive physiology due to severe kyphoscoliosis with Abarca angle more than 120. 4. Bilateral atelectasis causing volume loss. Not a candidate for bronchoscopy nor vibrating vest. 5. Chronic pain mainly in the back and lower extremities with peripheral neuropathy. 6. Insomnia, started on trazodone by Dr. Nance, appreciated. 6. Salivary gland congestion likely related to poor oral intake and congestion of the salivary gland duct. It seems to affect only the submandibular glands. Plan: 1. Decrease methadone to 25 mg p.o. twice daily. 2. Continue with baclofen 5 mg 3 times daily. 3. Add lemon swabs to reduce saliva and hopefully it will reduce the swelling in her salivary glands otherwise Sialogram would be another option. 4. Continue Neurontin 100 mg p.o. 3 times daily. 5. Discontinue BiPAP and did not pursue trilogy any further.. 6. Accept O2 sat between 85-90% only. Patient is on 5 L at home with nasal cannula. 7. Continue with oral intake although the patient at high risk of aspiration. 8. She seems to tolerate trazodone. Continue with it nocturnally. 9. Patient can be dispositioned to regular floor, since she is DNR and DNI and she does not want any invasive procedure. No need for telemetry. 10. Discontinue Zosyn after 7 days. 11. Change the patient to prednisone 50 mg p.o. daily. 12. Continue DuoNeb on a regular basis. Case discussed in details with the staff on rounds and with the family and with palliative care, appreciate all involved in her care. Dr. Nance input is appreciated. Critical care time spent with the patient was 45 minutes. Consults & Procedures Consultants: Infectious disease: Villarreal Data Medications: Current Inpatient Medications Medications (Trade) Dose Ordered Sig/Estephania Route Start Time Stop Time Status Last Admin Dose Admin Acetaminophen (Tylenol Tab) 650 mg Q4H PRN PO 12/26/17 22:45 01/25/18 22:44 Allopurinol (Zyloprim Tab) 100 mg BID PO 12/27/17 09:00 01/26/18 08:59 01/05/18 09:14 100 MG Calcitonin [place] (Fortical Nasal [place]) 1 spray QAM ERIC 12/27/17 09:00 01/26/18 08:59 01/03/18 09:00 1 SPRAY Carvedilol (Coreg Tab) 25 mg BID PO 12/27/17 09:00 01/26/18 08:59 01/05/18 09:11 25 MG Salmeterol Xinafoate/ Fluticasone (Advair Diskus 250/50 Inh) 1 puff BID INH 12/27/17 09:00 01/26/18 08:59 01/05/18 09:09 1 PUFF Rosuvastatin Calcium (Crestor Tab) 20 mg QPM PO 12/27/17 21:00 01/26/18 20:59 01/04/18 20:32 20 MG Enoxaparin Sodium (Lovenox Inj) 30 mg HS SQ 12/27/17 21:00 01/26/18 20:59 01/04/18 20:34 30 MG Docusate Sodium (coLACE SYRUP) 100 mg BID PO 12/27/17 21:00 01/25/18 23:14 01/03/18 20:54 100 MG Heparin Sodium (Porcine) (Heparin 10 Unit/ ml 5 ml Flush) 5 ml PRN PRN FLUSH 12/27/17 23:15 01/26/18 23:14 Polyethylene (Miralax Powder Packet) 17 gm BID PO 12/29/17 21:00 01/25/18 23:14 01/03/18 21:13 17 GM Verapamil HCl (Calan-Sr Tab) 120 mg QAM PO 12/30/17 09:00 01/29/18 08:59 01/05/18 09:10 120 MG Pantoprazole Sodium (Protonix Tab) 40 mg BID PO 12/29/17 21:00 01/28/18 20:59 01/05/18 09:13 40 MG Thiamine HCl (Vitamin B-1 Tab) 200 mg QAM PO 12/30/17 09:00 01/29/18 08:59 01/05/18 09:13 200 MG Cholecalciferol (Vitamin D Tab) 4,000 inter.unit QAM PO 12/30/17 09:00 01/29/18 08:59 01/05/18 09:14 4,000 INTER.UNIT Folic Acid (Folvite Tab) 1 mg QAM PO 12/31/17 09:00 01/30/18 08:59 01/05/18 09:12 1 MG Cyanocobalamin (Vitamin B-12 Tab) 1,000 mcg QAM PO 12/31/17 09:00 01/30/18 08:59 01/05/18 09:14 1,000 MCG Albuterol/ Ipratropium (Duoneb) 3 ml Q4HWA INH 12/30/17 16:00 01/29/18 15:59 01/05/18 07:28 3 ML Nystatin (Mycostatin Susp) 5 ml QID PO 12/31/17 13:00 01/10/18 12:59 01/05/18 09:12 5 ML Mupirocin (Bactroban 2% Oint) 1 appln TID INTNAS 12/31/17 14:00 01/30/18 13:59 01/05/18 09:10 1 APPLN Sodium Chloride ([place] Nasal [place]) 2 sprays Q1H PRN NA 01/01/18 03:00 01/31/18 02:59 Hydralazine HCl (Apresoline Tab) 10 mg TID PO 01/01/18 09:00 01/26/18 08:59 01/05/18 09:10 10 MG Menthol ([place]) 1 mady Q1H PRN MADY 01/01/18 16:15 01/31/18 16:14 Piperacillin Sod/ Tazobactam Sod 3.375 gm/Dextrose 115 ml @ 28.75 mls/ hr Q8H IV 01/02/18 20:00 01/09/18 19:59 01/05/18 04:39 28.75 MLS/HR Miscellaneous Information (Consult) 1 ea UD PRN N/A 01/02/18 14:30 02/01/18 14:29 Methadone HCl (Dolophine Tab) 25 mg BID PO 01/02/18 21:00 01/10/18 08:59 Future hold 01/05/18 09:11 25 MG Guaifenesin (Robitussin Sugar Free Syrup) 100 mg Q6H PRN PO 01/03/18 18:00 02/02/18 17:59 Gabapentin (Neurontin Cap) 100 mg TID PO 01/04/18 09:00 02/03/18 08:59 01/05/18 09:12 100 MG Prednisone (PredniSONE TAB) 50 mg DAILY PO 01/04/18 09:00 02/03/18 08:59 01/05/18 09:55 50 MG Trazodone HCl (Desyrel Tab) 25 mg HS PO 01/04/18 21:00 02/03/18 20:59 01/04/18 20:32 25 MG Vital Signs: Date Time Temp Pulse Resp B/P (MAP) Pulse Ox O2 Delivery O2 Flow Rate FiO2 01/05/18 10:00 79 20 136/90 (105) 90 01/05/18 08:00 Nasal Cannula 4.0 01/05/18 08:00 37.2 76 21 154/87 (109) 88 01/05/18 08:00 Nasal Cannula 01/05/18 07:26 70 12 92 Nasal Cannula 4.0 01/05/18 05:00 66 18 165/87 (113) 91 01/05/18 04:45 76 18 92 Nasal Cannula 4.0 01/05/18 04:00 37.5 64 29 174/97 (122) 97 01/05/18 02:23 80 94 40 01/05/18 02:01 69 18 169/91 (117) 92 Nasal Cannula 4.0 01/05/18 01:01 70 14 182/99 (126) 89 01/05/18 00:00 70 15 163/99 (120) 95 BiPAP 01/04/18 23:50 71 95 40 01/04/18 23:01 37.4 68 21 162/93 (116) 95 4.0 01/04/18 22:58 79 18 94 Nasal Cannula 4.0 01/04/18 22:01 76 19 164/91 (115) 91 4.0 01/04/18 21:01 88 18 137/92 (107) 92 Nasal Cannula 4.0 01/04/18 20:19 87 18 92 Nasal Cannula 4.0 01/04/18 20:11 91 Nasal Cannula 4.0 01/04/18 20:01 83 21 181/96 (124) 94 01/04/18 19:01 37.3 80 20 186/93 (124) 93 Nasal Cannula 4.0 01/04/18 18:01 80 18 177/97 (123) 91 Nasal Cannula 4.0 01/04/18 16:45 75 18 182/84 (116) 88 Nasal Cannula 4.0 01/04/18 16:00 Nasal Cannula 4.0 01/04/18 15:58 75 18 92 Nasal Cannula 4.0 01/04/18 14:00 37.0 74 21 161/91 (114) 91 Nasal Cannula 4.0 01/04/18 12:00 69 15 156/88 (110) 93 Nasal Cannula 4.0 01/04/18 11:28 83 16 91 Nasal Cannula 4.0 Laboratory Results: Last 24 Hours Test 01/04/18 11:34 01/04/18 17:19 01/04/18 21:00 01/05/18 04:32 Bedside Glucose 148 mg/dl 104 mg/dl 102 mg/dl White Blood Count 25.88 K/uL Red Blood Count 3.42 M/uL Hemoglobin 10.3 g/dL Hematocrit 32.8 % Mean Corpuscular Volume 95.9 fL Mean Corpuscular Hemoglobin 30.1 pg Mean Corpuscular Hemoglobin Concent 30.9 g/dl Platelet Count 134 K/uL Mean Platelet Volume 12.8 fL Neutrophils (%) (Auto) 88.6 % Lymphocytes (%) (Auto) 5.4 % Monocytes (%) (Auto) 4.9 % Eosinophils (%) (Auto) 0.0 % Basophils (%) (Auto) 0.1 % Neutrophils # (Auto) 22.91 K/uL Lymphocytes # (Auto) 1.40 K/uL Monocytes # (Auto) 1.28 K/uL Eosinophils # (Auto) 0.01 K/uL Basophils # (Auto) 0.02 K/uL RDW Standard Deviation 54.8 fL RDW Coefficient of Variation 15.9 % Immature Granulocyte % (Auto) 1.0 % Immature Granulocyte # (Auto) 0.26 K/uL Platelet Estimate DECREASED Hypochromasia PRESENT Sodium Level 140 mmol/L Potassium Level 3.1 mmol/L Chloride Level 99 mmol/L Carbon Dioxide Level 37 mmol/L Anion Gap 4.0 mmol/L Blood Urea Nitrogen 21 mg/dl Creatinine 1.02 mg/dl Est Creatinine Clear Calc Drug Dose 35.0 ml/min Estimated GFR () 64.5 Estimated GFR (Non- 55.7 BUN/Creatinine Ratio 20.5 Random Glucose 72 mg/dl Calcium Level 8.2 mg/dl
--- NOTE | 2018-01-05 14:51 | Hospitalist Progress Note ---
Hospitalist Progress Note Date of Service Jan 05, 2018. Subjective Pt evaluation today including: conversation w/ patient, physical exam, lab review, conversation w/ speech correction consultant (Photographic Laboratory Technician) Voiding: walker catheter in place Patient reports she absolutely could not tolerate the BiPAP last night. It was very painful in her face. She states that she understands that she could become hypercapnic if she does not use it, but she is accepting of that and does not ever want to be intubated again. She denies abdominal pain, chest pain , shortness of breath. She is comfortable and reports the trazodone helped with sleep last night. She states "I have no questions at this point." All Other Systems: Reviewed and Negative Objective Vital Signs Date Time Temp Pulse Resp B/P (MAP) Pulse Ox O2 Delivery O2 Flow Rate FiO2 01/05/18 14:00 78 16 162/88 (112) 91 Nasal Cannula 4.0 01/05/18 12:00 69 18 124/66 (85) 90 Nasal Cannula 4.0 01/05/18 11:26 82 17 91 Nasal Cannula 4.0 01/05/18 10:00 79 20 136/90 (105) 90 Nasal Cannula 4.0 01/05/18 08:00 Nasal Cannula 4.0 01/05/18 08:00 37.2 76 21 154/87 (109) 88 Nasal Cannula 4.0 01/05/18 08:00 Nasal Cannula 01/05/18 07:26 70 12 92 Nasal Cannula 4.0 01/05/18 05:00 66 18 165/87 (113) 91 01/05/18 04:45 76 18 92 Nasal Cannula 4.0 01/05/18 04:00 37.5 64 29 174/97 (122) 97 01/05/18 02:23 80 94 40 01/05/18 02:01 69 18 169/91 (117) 92 Nasal Cannula 4.0 01/05/18 01:01 70 14 182/99 (126) 89 01/05/18 00:00 70 15 163/99 (120) 95 BiPAP 01/04/18 23:50 71 95 40 01/04/18 23:01 37.4 68 21 162/93 (116) 95 4.0 01/04/18 22:58 79 18 94 Nasal Cannula 4.0 01/04/18 22:01 76 19 164/91 (115) 91 4.0 01/04/18 21:01 88 18 137/92 (107) 92 Nasal Cannula 4.0 01/04/18 20:19 87 18 92 Nasal Cannula 4.0 01/04/18 20:11 91 Nasal Cannula 4.0 01/04/18 20:01 83 21 181/96 (124) 94 01/04/18 19:01 37.3 80 20 186/93 (124) 93 Nasal Cannula 4.0 01/04/18 18:01 80 18 177/97 (123) 91 Nasal Cannula 4.0 01/04/18 16:45 75 18 182/84 (116) 88 Nasal Cannula 4.0 01/04/18 16:00 Nasal Cannula 4.0 01/04/18 15:58 75 18 92 Nasal Cannula 4.0 Physical Exam General Appearance: no apparent distress, + thin Eyes: normal inspection, EOMI, sclerae normal ENT: hearing grossly normal Neck: trachea midline Respiratory/Chest: no respiratory distress, no accessory muscle use, + decreased breath sounds (At the bases bilaterally), + wheezing (Scattered expiratory wheezes) Cardiovascular: regular rate, rhythm, no edema Abdomen: normal bowel sounds, non tender, soft Extremities: no pedal edema, no calf tenderness Neurologic/Psychiatric: alert, normal mood/affect, oriented x 3 Skin: normal color, warm/dry, no rash Laboratory Results Last 24 Hours Test 01/04/18 17:19 01/04/18 21:00 01/05/18 04:32 Bedside Glucose 104 mg/dl 102 mg/dl White Blood Count 25.88 K/uL Red Blood Count 3.42 M/uL Hemoglobin 10.3 g/dL Hematocrit 32.8 % Mean Corpuscular Volume 95.9 fL Mean Corpuscular Hemoglobin 30.1 pg Mean Corpuscular Hemoglobin Concent 30.9 g/dl Platelet Count 134 K/uL Mean Platelet Volume 12.8 fL Neutrophils (%) (Auto) 88.6 % Lymphocytes (%) (Auto) 5.4 % Monocytes (%) (Auto) 4.9 % Eosinophils (%) (Auto) 0.0 % Basophils (%) (Auto) 0.1 % Neutrophils # (Auto) 22.91 K/uL Lymphocytes # (Auto) 1.40 K/uL Monocytes # (Auto) 1.28 K/uL Eosinophils # (Auto) 0.01 K/uL Basophils # (Auto) 0.02 K/uL RDW Standard Deviation 54.8 fL RDW Coefficient of Variation 15.9 % Immature Granulocyte % (Auto) 1.0 % Immature Granulocyte # (Auto) 0.26 K/uL Platelet Estimate DECREASED Hypochromasia PRESENT Sodium Level 140 mmol/L Potassium Level 3.1 mmol/L Chloride Level 99 mmol/L Carbon Dioxide Level 37 mmol/L Anion Gap 4.0 mmol/L Blood Urea Nitrogen 21 mg/dl Creatinine 1.02 mg/dl Est Creatinine Clear Calc Drug Dose 35.0 ml/min Estimated GFR () 64.5 Estimated GFR (Non- 55.7 BUN/Creatinine Ratio 20.5 Random Glucose 72 mg/dl Calcium Level 8.2 mg/dl Assessment and Plan This pt is a 72yo female with a h/o HTN, HPL, secondary hyperparathyroidism, CKD III, gout, chronic diastolic CHF, COPD - O2-dependent/chronic hypoxic respiratory failure, bronchiectasis and recurrent pneumonia, depression, severe osteoporosis complicated by multiple fractures, chronic back/hip pain on methadone, and recurrent UTI (U cx in 08/2017 pos. for Ecoli ESBL), constipation , with recent admission for intractable headache and just discharged the day prior to admission. Patient became unresponsive and developed respiratory distress during dinner most likely secondary to an aspiration event s/p intubation in the ER for acute on chronic hypoxic respiratory failure and unresponsiveness. After extubation and transfer to the ICU, she subsequently became obtunded and was transferred back to the ICU and placed on BiPAP for hypercapnic respiratory failure. 1. acute/chronic hypoxic/hypercarbic respiratory failure - acute component resolved. s/p ICU transfer 3 days ago for severe CO2 narcosis. Intubation avoided with use of BIPAP. Suspect sedatives have been causing depression in her respiratory drive ( methadone, and now tox screen with benzos - see below) or the Stenotrophomonas caused the acute worsening. Or combination of the two. Acute/chronic diastolic CHF + COPD exacerbation also contributed. Plan moving forward -she absolutely declines BIPAP at HS, but will continue to use NC O2 continuously; minimize sedating medications. If becomes obtunded further due to hypercapnia, she does not want BiPAP or intubation 2. b/l pneumonia, most likely aspiration, and now with gram negative jordan ( Stenotrophomonas) - she is day #11 of abx today, but day #4 of Zosyn. Much improved now, on chronic level of home O2 She has NOT had any antibiotic in several days that would have covered the Stenotrophomonas. She is currently on zosyn day #4. Will add on Bactrim DS 1 tab p.o. twice daily 7 days to cover the Stenotrophomonas and finish out a 7 day course of Zosyn 3. toxic & metabolic encephalopathy - resolved. Toxic due to methadone, baclofen, lyrica, benzos, etc. Metabolic from CO2 narcosis. 4. COPD with exacerbation - improving, remains with wheezing -Continue prednisone 50 mill grams daily and taper down slowly -Continue bronchodilators 5. acute/chronic diastolic CHF - compensated. 6. recent occipital headaches - daily, persistent - resolved with use of verapamil prophylaxis and Valium previously which is been discontinued. 7. HTN - controlled. 8. DVT proph - lovenox 30mg daily. H/H stable. 9. hemoptysis - resolved. this may have been due to epistaxis. She is s/p bronch earlier this stay without endobronchial lesion. 10. macrocytic anemia with low-normal folate and b12 levels - supplement folate 1mg daily and b12 1000mcg daily. 11. chronic pain syndrome - continue methadone but dose has been cut back due to concerns about sedation. Has been on this for 4-5+ years. 12. stage 3 CKD - creatinine stable today. 13. insomnia - after much discussion started with trial of trazodone 25mg HS and tolerating well. -Continue trazodone 25 mg p.o. nightly 14. constipation - finally improved. Good candidate for movantik given her chronic narcotic usage. -Continue bowel regimen 15. epistaxis - resolved. 16. thrush - nystatin solution qid. resolved. 17. coag neg staph in blood cx - 1/2 sets this admission, similar to prior admission's blood cx's. Could the PICC be infected? If yes I would have expected all bottles/sets to have been persistently positive. No Rx; follow. 18. +tox screen for benzos - await final results of confirmatory testing. I spoke with pharmacy - they do not feel the versed early on in her stay should have caused the tox to be + given the short half-life. Theoretically possible the valium taken on 12/26/17 caused the tox to be + but again should have been out of her system at time of tox screen. Simply await the final results. appreciate critical care and palliative care consults patient is now level 5 DNR/DNI Transferred out to medical floor-can likely go back to snf tomorrow
[2018-01-05] MEDS: SULFAMETHOXAZOLE/TRIMETHOPRIM DS 800/160MG TAB PO SCH ×2 (15:42→21:05)
[2018-01-05] MEDS: TRAZODONE HCL 50 MG TAB PO SCH (21:02)
[2018-01-05] MEDS: ROSUVASTATIN CALCIUM 20 MG TAB PO SCH (21:02)
[2018-01-05] MEDS: ENOXAPARIN 30 MG/0.3 ML SYR SQ SCH (21:06)
[2018-01-06] VITALS (10 sets, daily range): BP systolic 112–151; BP diastolic 55–90; PULSE 62–91; TEMP 37.1–37.4; O2SAT 87–92
[2018-01-06] MEDS: PIPERACILL/TAZOBAC IV 3.375 GM in DEXTROSE 5% 100ML 100 ML IV SCH ×3 (04:55→19:44)
[2018-01-06 05:56] LABS: HEMATOCRIT 32.6 % (37-47); HEMOGLOBIN 10.2 g/dL (12.0-16.0); MEAN CELL VOLUME 96.4 fL (80-100); MEAN CORPUSCULAR HEMOGLOBIN 30.2 pg (25-34); MEAN CORPUSCULAR HGB CONC 31.3 g/dl (32-36); MEAN PLATELET VOLUME 12.9 fL (7.4-10.4); PLATELET COUNT 134 K/uL (130-400); RED CELL DISTRIBUTION WIDTH CV 15.9 % (11.5-14.5); RED CELL DISTRIBUTION WIDTH SD 55.4 fL (36.4-46.3)
[2018-01-06] MEDS: ALBUT/IPRATROP 3MG/0.5MG NEB 3 ML VIAL INH SCH ×4 (06:06→18:52)
[2018-01-06 06:26] LABS: CALCIUM 8.1 mg/dl (8.5-10.1); CREATININE 1.1 mg/dl (0.60-1.20); POTASSIUM 3.4 mmol/L (3.5-5.1)
[2018-01-06 06:44] LABS: BASO % 0.1 %; BASO ABS # 0.02 K/uL (0-0.2); IG# 0.16 K/uL (0.00-0.02); MONO % 3.8 %; MONO ABS # 0.87 K/uL (0.11-0.59); NEUT % 88.4 %; NEUT ABS # 20.35 K/uL (1.4-6.5)
[2018-01-06] MEDS: CALCITONIN SALMON NA 200 IU/AC 3.7 ML BTL NAE SCH (08:16)
[2018-01-06] MEDS: NYSTATIN SUSP 500,000 U/5 ML UDC PO SCH ×4 (08:18→21:50)
[2018-01-06] MEDS: FLUTICASONE/SALMETEROL 250/50 (ADVAIR) 14 PUFF/1 INHALER INH SCH (08:18)
[2018-01-06] MEDS: VERAPAMIL HCL 120 MG TABCR PO SCH (08:18)
[2018-01-06] MEDS: SULFAMETHOXAZOLE/TRIMETHOPRIM DS 800/160MG TAB PO SCH (08:18)
[2018-01-06] MEDS: PANTOprazole SOD 40 MG TAB PO SCH ×2 (08:18→19:50)
[2018-01-06] MEDS: POLYETHYLENE (MIRALAX) 17 GM PACK PO SCH ×2 (08:18→20:02)
[2018-01-06] MEDS: ALLOPURINOL 100 MG TAB PO SCH ×2 (08:18→19:53)
[2018-01-06] MEDS: CYANOCOBALAMIN 500 MCG TAB (VIT B-12) PO SCH (08:18)
[2018-01-06] MEDS: CARVEDILOL 25 MG TAB PO SCH ×2 (08:18→21:49)
[2018-01-06] MEDS: THIAMINE HCL 100 MG TAB PO SCH (08:18)
[2018-01-06] MEDS: GABAPENTIN 100 MG CAP PO SCH ×3 (08:18→19:54)
[2018-01-06] MEDS: MUPIROCIN 2% OINT 22 GM TUBE INTNAS SCH ×3 (08:19→20:03)
[2018-01-06] MEDS: DOCUSATE SODIUM 100 MG/10 ML UDC PO SCH ×2 (08:19→19:57)
[2018-01-06] MEDS: CHOLECALCIFEROL 1000 INTER.UNIT TAB PO SCH (08:19)
[2018-01-06] MEDS: HydrALAZINE 10 MG TAB PO SCH ×3 (08:20→21:49)
[2018-01-06] MEDS: METHADONE HCL 10 MG TAB PO SCH ×2 (08:29→21:49)
[2018-01-06] MEDS ORDERED: POTASSIUM CHLORIDE 20 MEQ TABCR PO STA (09:01)
--- NOTE | 2018-01-06 15:13 | Hospitalist Progress Note ---
Hospitalist Progress Note Date of Service Jan 06, 2018. Subjective Pt evaluation today including: conversation w/ patient, conversation w/ family Feeling great today. Still with some cough. Would like the thickened liquids to be discontinued-she wants to be able to drink thin liquids. Also requesting that her 5 L of nasal cannula requirement be communicated to her long-term upon discharge. Also requesting a standing order of guaifenesin. She is also having some trouble swallowing the large Bactrim double strength tablets and her son is asking if she can take 2 of the regular strength. Otherwise, she has no complaints, is moving her bowels. All Other Systems: Reviewed and Negative Objective Vital Signs Date Time Temp Pulse Resp B/P (MAP) Pulse Ox O2 Delivery O2 Flow Rate FiO2 01/06/18 14:19 37.4 74 20 112/55 (74) 91 Nasal Cannula 5.0 01/06/18 11:22 70 16 87 Nasal Cannula 4.0 01/06/18 08:00 Nasal Cannula 5.0 01/06/18 07:03 37.1 74 19 144/82 (102) 90 Nasal Cannula 4.0 01/06/18 06:06 62 16 90 Nasal Cannula 4.0 01/06/18 00:00 Nasal Cannula 4.0 01/05/18 23:03 37.2 76 16 126/85 (99) 91 Nasal Cannula 4.0 01/05/18 20:09 57 16 90 Nasal Cannula 4.0 01/05/18 19:55 Nasal Cannula 5.0 01/05/18 16:30 93 Nasal Cannula 4.0 01/05/18 16:13 79 14 93 Nasal Cannula 4.0 Physical Exam General Appearance: no apparent distress, + thin Eyes: normal inspection, sclerae normal ENT: hearing grossly normal Neck: trachea midline Respiratory/Chest: no respiratory distress, no accessory muscle use, + wheezing (Occasional scattered wheeze but improved from yesterday) Cardiovascular: regular rate, rhythm, no edema, no murmur Abdomen: normal bowel sounds, non tender, soft Extremities: no calf tenderness Neurologic/Psychiatric: alert, normal mood/affect, oriented x 3 Skin: normal color, warm/dry, no rash Laboratory Results Last 24 Hours Test 01/06/18 05:20 White Blood Count 23.00 K/uL Red Blood Count 3.38 M/uL Hemoglobin 10.2 g/dL Hematocrit 32.6 % Mean Corpuscular Volume 96.4 fL Mean Corpuscular Hemoglobin 30.2 pg Mean Corpuscular Hemoglobin Concent 31.3 g/dl Platelet Count 134 K/uL Mean Platelet Volume 12.9 fL Neutrophils (%) (Auto) 88.4 % Lymphocytes (%) (Auto) 7.0 % Monocytes (%) (Auto) 3.8 % Eosinophils (%) (Auto) 0.0 % Basophils (%) (Auto) 0.1 % Neutrophils # (Auto) 20.35 K/uL Lymphocytes # (Auto) 1.60 K/uL Monocytes # (Auto) 0.87 K/uL Eosinophils # (Auto) 0.00 K/uL Basophils # (Auto) 0.02 K/uL RDW Standard Deviation 55.4 fL RDW Coefficient of Variation 15.9 % Immature Granulocyte % (Auto) 0.7 % Immature Granulocyte # (Auto) 0.16 K/uL Basophilic Stippling 1+ Sodium Level 140 mmol/L Potassium Level 3.4 mmol/L Chloride Level 100 mmol/L Carbon Dioxide Level 37 mmol/L Anion Gap 3.0 mmol/L Blood Urea Nitrogen 20 mg/dl Creatinine 1.10 mg/dl Est Creatinine Clear Calc Drug Dose 32.5 ml/min Estimated GFR () 58.9 Estimated GFR (Non- 50.8 BUN/Creatinine Ratio 17.9 Random Glucose 113 mg/dl Calcium Level 8.1 mg/dl Magnesium Level 1.9 mg/dl Assessment and Plan This pt is a 72yo female with a h/o HTN, HPL, secondary hyperparathyroidism, CKD III, gout, chronic diastolic CHF, COPD - O2-dependent/chronic hypoxic respiratory failure, bronchiectasis and recurrent pneumonia, depression, severe osteoporosis complicated by multiple fractures, chronic back/hip pain on methadone, and recurrent UTI (U cx in 08/2017 pos. for Ecoli ESBL), constipation , with recent admission for intractable headache and just discharged the day prior to admission. Patient became unresponsive and developed respiratory distress during dinner most likely secondary to an aspiration event s/p intubation in the ER for acute on chronic hypoxic respiratory failure and unresponsiveness. After extubation and transfer to the ICU, she subsequently became obtunded and was transferred back to the ICU and placed on BiPAP for hypercapnic respiratory failure. 1. acute/chronic hypoxic/hypercarbic respiratory failure - acute component resolved. s/p ICU transfer 3 days ago for severe CO2 narcosis. Intubation avoided with use of BIPAP. Suspect sedatives have been causing depression in her respiratory drive ( methadone, and now tox screen with benzos - see below) or the Stenotrophomonas caused the acute worsening. Or combination of the two. Acute/chronic diastolic CHF + COPD exacerbation also contributed. Plan moving forward -she absolutely declines BIPAP at HS, but will continue to use NC O2 continuously; minimize sedating medications. If becomes obtunded further due to hypercapnia, she does not want BiPAP or intubation, however she is doing quite well at this time -Continue supplemental nasal cannula O2 with 5 L -Continue bronchodilators -Change guaifenesin to scheduled twice daily dosing 2. b/l pneumonia, most likely aspiration, and now with gram negative jordan ( Stenotrophomonas) - she is day #11 of abx today, but day #4 of Zosyn. Much improved now, on chronic level of home O2 She has NOT had any antibiotic in several days that would have covered the Stenotrophomonas. She is currently on zosyn day #5. -Continue but change to regular strength Bactrim 2 tabs p.o. twice daily 7 days (today day #2) to cover the Stenotrophomonas and finish out a 7 day course of Zosyn 3. toxic & metabolic encephalopathy - resolved. Toxic due to methadone, baclofen, lyrica, benzos, etc. Metabolic from CO2 narcosis. 4. COPD with exacerbation - improving, remains with wheezing but improved -Continue prednisone and taper down to 40 mg for tomorrow -Continue bronchodilators 5. acute/chronic diastolic CHF - compensated. 6. recent occipital headaches - daily, persistent - resolved with use of verapamil prophylaxis and Valium previously which is been discontinued. 7. HTN - controlled. 8. DVT proph - lovenox 30mg daily. H/H stable. 9. hemoptysis - resolved. this may have been due to epistaxis. She is s/p bronch earlier this stay without endobronchial lesion. 10. macrocytic anemia with low-normal folate and b12 levels - supplement folate 1mg daily and b12 1000mcg daily. 11. chronic pain syndrome - continue methadone but dose has been cut back due to concerns about sedation. Has been on this for 4-5+ years. 12. stage 3 CKD - creatinine stable today. 13. insomnia - after much discussion started with trial of trazodone 25mg HS and tolerating well. -Continue trazodone 25 mg p.o. nightly 14. constipation - finally improved. Good candidate for movantik given her chronic narcotic usage. -Continue bowel regimen 15. epistaxis - resolved. 16. thrush - nystatin solution qid. resolved, but continue on nystatin while on prednisone. 17. coag neg staph in blood cx - 1/2 sets this admission, contaminant 18. +tox screen for benzos - await final results of confirmatory testing. Pharmacy does not feel the versed early on in her stay should have caused the tox to be + given the short half-life. Theoretically possible the valium taken on 12/26/17 caused the tox to be + but again should have been out of her system at time of tox screen. Simply await the final results. appreciate critical care and palliative care consults patient is now level 5 DNR/DNI Disposition-could have been discharged today, however awaiting hospice agency to evaluate her for admission and to have this acceptance prior to [facility] taking her back-will most likely be on Monday
[2018-01-06] MEDS ORDERED: GUAIFENESIN SUGAR FREE 100 MG/5 ML UDC PO ONE (15:19)
--- NOTE | 2018-01-06 17:59 | Pulmonology Progress Note ---
Pulmonary Progress Note Date of Service Jan 06, 2018. Attending Dr. Rondon Subjective The patient has been stable overall, she did not use any positive pressure ventilation overnight, she has been more awake and following commands and answering questions appropriately, denies any chest pain, and her neuropathy. Has been improving with Neurontin. Objective Physical exam on 01/06/2018 showed vital signs are stable, S1-S2 regular rate and rhythm, lungs with distant breath sounds bilaterally, kyphoscoliosis, abdomen is benign, no edema. No new imaging. Assessment & Plan 1. Acute on chronic hypoxic and hypercapnic respiratory failure, patient is on 5 L oxygen at home. 2. Severe kyphoscoliosis resulted in restrictive physiologic pattern. 3. COPD, gold level 3 on home O2. 4. Recurrent aspiration. 5. Narcotic dependence resulted in the patient poor cough reflex and difficulty clearing up her secretions. Plan: 1. Continue to use her inhalers, the patient would like to change from Advair to Symbicort which is a missed for which she agreed to it. She does not like the powder form. 2. Chest PT, the patient would not tolerate vibrating vest given her severe kyphoscoliosis and risk for refracture. 3. Continue current treatment. 4. Patient tolerated trazodone at night, Neurontin 100 mg 3 times daily, and methadone 25 mg twice daily. No need to escalate her doses as this regimen seems to control her pain without altering her mental status. 5. Patient does not want to use any positive pressure ventilation, 6. The patient would like to go on palliative care should her mental status change and does not want to be intubated or placed on BiPAP. 7. Agree with patient discharged to half-way facility. Thank you, will follow as needed. Data Medications: Current Inpatient Medications Medications (Trade) Dose Ordered Sig/Estephania Route Start Time Stop Time Status Last Admin Dose Admin Acetaminophen (Tylenol Tab) 650 mg Q4H PRN PO 12/26/17 22:45 01/25/18 22:44 Allopurinol (Zyloprim Tab) 100 mg BID PO 12/27/17 09:00 01/26/18 08:59 01/06/18 08:18 100 MG Calcitonin [place] (Fortical Nasal [place]) 1 spray QAM ERIC 12/27/17 09:00 01/26/18 08:59 01/03/18 09:00 1 SPRAY Carvedilol (Coreg Tab) 25 mg BID PO 12/27/17 09:00 01/26/18 08:59 01/06/18 08:18 25 MG Rosuvastatin Calcium (Crestor Tab) 20 mg QPM PO 12/27/17 21:00 01/26/18 20:59 01/05/18 21:02 20 MG Enoxaparin Sodium (Lovenox Inj) 30 mg HS SQ 12/27/17 21:00 01/26/18 20:59 01/05/18 21:06 30 MG Docusate Sodium (coLACE SYRUP) 100 mg BID PO 12/27/17 21:00 01/25/18 23:14 01/03/18 20:54 100 MG Heparin Sodium (Porcine) (Heparin 10 Unit/ ml 5 ml Flush) 5 ml PRN PRN FLUSH 12/27/17 23:15 01/26/18 23:14 01/06/18 01:04 5 ML Polyethylene (Miralax Powder Packet) 17 gm BID PO 12/29/17 21:00 01/25/18 23:14 01/06/18 08:18 17 GM Verapamil HCl (Calan-Sr Tab) 120 mg QAM PO 12/30/17 09:00 01/29/18 08:59 01/06/18 08:18 120 MG Pantoprazole Sodium (Protonix Tab) 40 mg BID PO 12/29/17 21:00 01/28/18 20:59 01/06/18 08:18 40 MG Thiamine HCl (Vitamin B-1 Tab) 200 mg QAM PO 12/30/17 09:00 01/29/18 08:59 01/06/18 08:18 200 MG Cholecalciferol (Vitamin D Tab) 4,000 inter.unit QAM PO 12/30/17 09:00 01/29/18 08:59 01/06/18 08:19 4,000 INTER.UNIT Folic Acid (Folvite Tab) 1 mg QAM PO 12/31/17 09:00 01/30/18 08:59 01/06/18 08:18 1 MG Cyanocobalamin (Vitamin B-12 Tab) 1,000 mcg QAM PO 12/31/17 09:00 01/30/18 08:59 01/06/18 08:18 1,000 MCG Albuterol/ Ipratropium (Duoneb) 3 ml Q4HWA INH 12/30/17 16:00 01/29/18 15:59 01/06/18 15:20 3 ML Nystatin (Mycostatin Susp) 5 ml QID PO 12/31/17 13:00 01/10/18 12:59 01/06/18 17:18 5 ML Mupirocin (Bactroban 2% Oint) 1 appln TID INTNAS 12/31/17 14:00 01/30/18 13:59 01/06/18 08:19 1 APPLN Sodium Chloride ([place] Nasal [place]) 2 sprays Q1H PRN NA 01/01/18 03:00 01/31/18 02:59 Hydralazine HCl (Apresoline Tab) 10 mg TID PO 01/01/18 09:00 01/26/18 08:59 01/06/18 13:01 10 MG Menthol ([place]) 1 mady Q1H PRN MADY 01/01/18 16:15 01/31/18 16:14 Piperacillin Sod/ Tazobactam Sod 3.375 gm/Dextrose 115 ml @ 28.75 mls/ hr Q8H IV 01/02/18 20:00 01/09/18 19:59 01/06/18 11:42 28.75 MLS/HR Miscellaneous Information (Consult) 1 ea UD PRN N/A 01/02/18 14:30 02/01/18 14:29 Methadone HCl (Dolophine Tab) 25 mg BID PO 01/02/18 21:00 01/10/18 08:59 Future hold 01/06/18 08:29 25 MG Gabapentin (Neurontin Cap) 100 mg TID PO 01/04/18 09:00 02/03/18 08:59 01/06/18 13:01 100 MG Trazodone HCl (Desyrel Tab) 25 mg HS PO 01/04/18 21:00 02/03/18 20:59 01/05/18 21:02 25 MG Budesonide/ Formoterol Fumarate (Symbicort 160/ 4.5 Inh) 2 puffs BID INH 01/06/18 21:00 02/05/18 20:59 Guaifenesin (Robitussin Sugar Free Syrup) 100 mg BID PO 01/06/18 21:00 02/02/18 17:59 Prednisone (PredniSONE TAB) 40 mg DAILY PO 01/07/18 09:00 02/03/18 08:59 Trimethoprim/ Sulfamethoxazole (Septra 400/80MG Tab) 2 tab BID PO 01/06/18 21:00 01/13/18 20:59 I & O: 24-Hour Column 01/07/18 08:00 Intake Total 372 ml Output Total 275 ml Balance 97 ml Vital Signs: Date Time Temp Pulse Resp B/P (MAP) Pulse Ox O2 Delivery O2 Flow Rate FiO2 01/06/18 16:00 91 Nasal Cannula 5.0 01/06/18 15:23 91 16 89 Nasal Cannula 5.0 01/06/18 14:19 37.4 74 20 112/55 (74) 91 Nasal Cannula 5.0 01/06/18 11:22 70 16 87 Nasal Cannula 4.0 01/06/18 08:00 Nasal Cannula 5.0 01/06/18 07:03 37.1 74 19 144/82 (102) 90 Nasal Cannula 4.0 01/06/18 06:06 62 16 90 Nasal Cannula 4.0 01/06/18 00:00 Nasal Cannula 4.0 01/05/18 23:03 37.2 76 16 126/85 (99) 91 Nasal Cannula 4.0 01/05/18 20:09 57 16 90 Nasal Cannula 4.0 01/05/18 19:55 Nasal Cannula 5.0 Laboratory Results: Last 24 Hours Test 01/06/18 05:20 White Blood Count 23.00 K/uL Red Blood Count 3.38 M/uL Hemoglobin 10.2 g/dL Hematocrit 32.6 % Mean Corpuscular Volume 96.4 fL Mean Corpuscular Hemoglobin 30.2 pg Mean Corpuscular Hemoglobin Concent 31.3 g/dl Platelet Count 134 K/uL Mean Platelet Volume 12.9 fL Neutrophils (%) (Auto) 88.4 % Lymphocytes (%) (Auto) 7.0 % Monocytes (%) (Auto) 3.8 % Eosinophils (%) (Auto) 0.0 % Basophils (%) (Auto) 0.1 % Neutrophils # (Auto) 20.35 K/uL Lymphocytes # (Auto) 1.60 K/uL Monocytes # (Auto) 0.87 K/uL Eosinophils # (Auto) 0.00 K/uL Basophils # (Auto) 0.02 K/uL RDW Standard Deviation 55.4 fL RDW Coefficient of Variation 15.9 % Immature Granulocyte % (Auto) 0.7 % Immature Granulocyte # (Auto) 0.16 K/uL Basophilic Stippling 1+ Sodium Level 140 mmol/L Potassium Level 3.4 mmol/L Chloride Level 100 mmol/L Carbon Dioxide Level 37 mmol/L Anion Gap 3.0 mmol/L Blood Urea Nitrogen 20 mg/dl Creatinine 1.10 mg/dl Est Creatinine Clear Calc Drug Dose 32.5 ml/min Estimated GFR () 58.9 Estimated GFR (Non- 50.8 BUN/Creatinine Ratio 17.9 Random Glucose 113 mg/dl Calcium Level 8.1 mg/dl Magnesium Level 1.9 mg/dl
[2018-01-06] MEDS: SULFAMETHOXAZOLE/TRIMETHOPRIM 400/80MG TAB PO SCH (19:52)
[2018-01-06] MEDS: ROSUVASTATIN CALCIUM 20 MG TAB PO SCH (19:53)
[2018-01-06] MEDS: ENOXAPARIN 30 MG/0.3 ML SYR SQ SCH (20:04)
[2018-01-06] MEDS: BUDESONIDE/FORMOTEROL FUMARATE 160/4.5 60 PUFFS/INHALER INH SCH (21:46)
[2018-01-06] MEDS: TRAZODONE HCL 50 MG TAB PO SCH (21:48)
[2018-01-06] MEDS: GUAIFENESIN SUGAR FREE 100 MG/5 ML UDC PO SCH (21:50)
[2018-01-07] VITALS (11 sets, daily range): BP systolic 111–151; BP diastolic 62–90; PULSE 68–85; TEMP 37–37.5; O2SAT 85–94
[2018-01-07] MEDS: PIPERACILL/TAZOBAC IV 3.375 GM in DEXTROSE 5% 100ML 100 ML IV SCH ×3 (04:20→21:27)
[2018-01-07 06:04] LABS: HEMATOCRIT 32.9 % (37-47); HEMOGLOBIN 10.4 g/dL (12.0-16.0); MEAN CELL VOLUME 95.9 fL (80-100); MEAN CORPUSCULAR HEMOGLOBIN 30.3 pg (25-34); MEAN CORPUSCULAR HGB CONC 31.6 g/dl (32-36); MEAN PLATELET VOLUME 12.7 fL (7.4-10.4); PLATELET COUNT 130 K/uL (130-400); RED CELL DISTRIBUTION WIDTH CV 15.9 % (11.5-14.5); RED CELL DISTRIBUTION WIDTH SD 55.2 fL (36.4-46.3); WHITE BLOOD COUNT 23.16 K/uL (4.8-10.8)
[2018-01-07 06:24] LABS: BASO % 0.1 %; BASO ABS # 0.03 K/uL (0-0.2); EOS ABS # 0.01 K/uL (0-0.5); LYMPH % 4.6 %; LYMPH ABS # 1.06 K/uL (1.2-3.4); MONO % 7.8 %; MONO ABS # 1.81 K/uL (0.11-0.59); NEUT % 86.6 %; NEUT ABS # 20.05 K/uL (1.4-6.5)
[2018-01-07 06:38] LABS: CALCIUM 8.3 mg/dl (8.5-10.1); CREATININE 1.09 mg/dl (0.60-1.20); POTASSIUM 4.5 mmol/L (3.5-5.1)
[2018-01-07] MEDS ORDERED: CALCIUM CARBONATE 500 MG CHEWABLE PO PRN (07:00)
[2018-01-07] MEDS: ALBUT/IPRATROP 3MG/0.5MG NEB 3 ML VIAL INH SCH ×4 (07:01→19:14)
[2018-01-07] MEDS: CHOLECALCIFEROL 1000 INTER.UNIT TAB PO SCH (07:37)
[2018-01-07] MEDS: THIAMINE HCL 100 MG TAB PO SCH (07:38)
[2018-01-07] MEDS: POLYETHYLENE (MIRALAX) 17 GM PACK PO SCH ×2 (07:38→21:40)
[2018-01-07] MEDS: CARVEDILOL 25 MG TAB PO SCH ×2 (07:38→21:46)
[2018-01-07] MEDS: HydrALAZINE 10 MG TAB PO SCH ×3 (07:38→21:46)
[2018-01-07] MEDS: NYSTATIN SUSP 500,000 U/5 ML UDC PO SCH ×5 (07:39→21:30)
[2018-01-07] MEDS: PANTOprazole SOD 40 MG TAB PO SCH ×2 (07:39→21:32)
[2018-01-07] MEDS: SULFAMETHOXAZOLE/TRIMETHOPRIM 400/80MG TAB PO SCH ×2 (07:39→21:33)
[2018-01-07] MEDS: GABAPENTIN 100 MG CAP PO SCH ×3 (07:39→21:33)
[2018-01-07] MEDS: GUAIFENESIN SUGAR FREE 100 MG/5 ML UDC PO SCH ×3 (07:39→21:29)
[2018-01-07] MEDS: DOCUSATE SODIUM 100 MG/10 ML UDC PO SCH ×2 (07:39→21:30)
[2018-01-07] MEDS: CYANOCOBALAMIN 500 MCG TAB (VIT B-12) PO SCH (07:40)
[2018-01-07] MEDS: ALLOPURINOL 100 MG TAB PO SCH ×2 (07:40→21:29)
[2018-01-07] MEDS: VERAPAMIL HCL 120 MG TABCR PO SCH (07:40)
[2018-01-07] MEDS: MUPIROCIN 2% OINT 22 GM TUBE INTNAS SCH ×3 (07:41→21:00)
[2018-01-07] MEDS: BUDESONIDE/FORMOTEROL FUMARATE 160/4.5 60 PUFFS/INHALER INH SCH ×2 (07:42→21:27)
[2018-01-07] MEDS: CALCITONIN SALMON NA 200 IU/AC 3.7 ML BTL NAE SCH (07:42)
[2018-01-07] MEDS: METHADONE HCL 10 MG TAB PO SCH ×2 (07:52→21:36)
--- NOTE | 2018-01-07 16:51 | Hospitalist Progress Note ---
Hospitalist Progress Note Date of Service Jan 07, 2018. Subjective Pt evaluation today including: conversation w/ patient Voiding: walker catheter in place Pt feeling more SOB this afternoon and feels like she is filling up with fluid in her chest. Weight is up since admission despite significantly net negative I/ Os if accurate. Denies chest pain. Otherwise, no complaints All Other Systems: Reviewed and Negative Objective Vital Signs Date Time Temp Pulse Resp B/P (MAP) Pulse Ox O2 Delivery O2 Flow Rate FiO2 01/07/18 15:16 75 16 85 Nasal Cannula 5.0 01/07/18 14:17 37.2 73 16 111/72 (85) 90 01/07/18 13:19 145/90 (108) 01/07/18 11:17 71 16 90 Nasal Cannula 5.0 01/07/18 08:00 Nasal Cannula 4.0 01/07/18 07:01 85 16 94 Nasal Cannula 5.0 01/07/18 06:48 37.5 68 18 151/84 (106) 93 Nasal Cannula 2.0 01/07/18 00:00 Nasal Cannula 5.0 01/06/18 23:25 37.2 89 17 151/90 (110) 92 Nasal Cannula 5.0 01/06/18 21:44 74 150/74 (99) 01/06/18 20:23 76 136/78 (97) 01/06/18 18:53 88 16 91 Nasal Cannula 5.0 Physical Exam General Appearance: no apparent distress, + thin, + pertinent finding (severe kyphosis) Eyes: normal inspection, sclerae normal ENT: hearing grossly normal Neck: trachea midline Respiratory/Chest: no respiratory distress, no accessory muscle use, + crackles (at bases bilat), + wheezing (scattered exp wheezes) Cardiovascular: regular rate, rhythm, no edema, no murmur Abdomen: normal bowel sounds, non tender, soft Extremities: no pedal edema, no calf tenderness Neurologic/Psychiatric: alert, normal mood/affect, oriented x 3 Skin: normal color, warm/dry, no rash Laboratory Results Last 24 Hours Test 01/07/18 05:29 White Blood Count 23.16 K/uL Red Blood Count 3.43 M/uL Hemoglobin 10.4 g/dL Hematocrit 32.9 % Mean Corpuscular Volume 95.9 fL Mean Corpuscular Hemoglobin 30.3 pg Mean Corpuscular Hemoglobin Concent 31.6 g/dl Platelet Count 130 K/uL Mean Platelet Volume 12.7 fL Neutrophils (%) (Auto) 86.6 % Lymphocytes (%) (Auto) 4.6 % Monocytes (%) (Auto) 7.8 % Eosinophils (%) (Auto) 0.0 % Basophils (%) (Auto) 0.1 % Neutrophils # (Auto) 20.05 K/uL Lymphocytes # (Auto) 1.06 K/uL Monocytes # (Auto) 1.81 K/uL Eosinophils # (Auto) 0.01 K/uL Basophils # (Auto) 0.03 K/uL RDW Standard Deviation 55.2 fL RDW Coefficient of Variation 15.9 % Immature Granulocyte % (Auto) 0.9 % Immature Granulocyte # (Auto) 0.20 K/uL Basophilic Stippling OCCASIONAL Sodium Level 139 mmol/L Potassium Level 4.5 mmol/L Chloride Level 101 mmol/L Carbon Dioxide Level 35 mmol/L Anion Gap 3.0 mmol/L Blood Urea Nitrogen 18 mg/dl Creatinine 1.09 mg/dl Est Creatinine Clear Calc Drug Dose 32.8 ml/min Estimated GFR () 59.6 Estimated GFR (Non- 51.4 BUN/Creatinine Ratio 16.7 Random Glucose 73 mg/dl Calcium Level 8.3 mg/dl Magnesium Level 2.1 mg/dl Assessment and Plan This pt is a 72yo female with a h/o HTN, HPL, secondary hyperparathyroidism, CKD III, gout, chronic diastolic CHF, COPD - O2-dependent/chronic hypoxic respiratory failure, bronchiectasis and recurrent pneumonia, depression, severe osteoporosis complicated by multiple fractures, chronic back/hip pain on methadone, and recurrent UTI (U cx in 08/2017 pos. for Ecoli ESBL), constipation , with recent admission for intractable headache and just discharged the day prior to admission. Patient became unresponsive and developed respiratory distress during dinner most likely secondary to an aspiration event s/p intubation in the ER for acute on chronic hypoxic respiratory failure and unresponsiveness. After extubation and transfer to the ICU, she subsequently became obtunded and was transferred back to the ICU and placed on BiPAP for hypercapnic respiratory failure. 1. Acute/chronic hypoxic/hypercarbic respiratory failure - acute component resolved. s/p ICU transfer again 4 days ago for severe CO2 narcosis. Intubation avoided with use of BIPAP. Suspect sedatives have been causing depression in her respiratory drive ( methadone, and now tox screen with benzos - see below) or the Stenotrophomonas caused the acute worsening. Or combination of the two. Acute/chronic diastolic CHF + COPD exacerbation also contributing--> worse today and weight is up, suspect volume overload Plan moving forward -she absolutely declines BIPAP at HS, but will continue to use NC O2 continuously; minimize sedating medications. If becomes obtunded further due to hypercapnia, she does not want BiPAP or intubation, however she is doing quite well at this time -Continue supplemental nasal cannula O2 with 5 L -Continue bronchodilators -increase guaifenesin to scheduled qid dosing -give IV lasix 20mg x 1 now 2. b/l pneumonia, most likely aspiration, and now with gram negative jordan ( Stenotrophomonas) - she is day #12 of abx today, but day #5 of Zosyn. Much improved now, on chronic level of home O2 She has NOT had any antibiotic in several days that would have covered the Stenotrophomonas. She is currently on zosyn day #6. -Continue regular strength Bactrim 2 tabs p.o. twice daily 7 days (today day #3 ) to cover the Stenotrophomonas and finish out a 7 day course for PNA with Augmentin-switch tomorrow 3. toxic & metabolic encephalopathy - resolved. Toxic due to methadone, baclofen, lyrica, benzos, etc. Metabolic from CO2 narcosis. 4. COPD with exacerbation - improving, remains with wheezing worsening after tapering down prednisone -Continue prednisone and increase back to 50mg for today given worsening resp status -Continue bronchodilators 5. acute/chronic diastolic CHF - now volume overloaded potentially based on exam and symptoms -IV lasix x 1 now as above 6. recent occipital headaches - daily, persistent - resolved with use of verapamil prophylaxis and Valium previously which is been discontinued. 7. HTN - controlled. 8. DVT proph - lovenox 30mg daily. H/H stable. 9. hemoptysis - resolved. this may have been due to epistaxis. She is s/p bronch earlier this stay without endobronchial lesion. 10. macrocytic anemia with low-normal folate and b12 levels - supplement folate 1mg daily and b12 1000mcg daily. 11. chronic pain syndrome - continue methadone but dose has been cut back due to concerns about sedation. Has been on this for 4-5+ years. 12. stage 3 CKD - creatinine stable today. 13. insomnia - after much discussion started with trial of trazodone 25mg HS and tolerating well. -Continue trazodone 25 mg p.o. nightly 14. constipation - finally improved. Good candidate for movantik given her chronic narcotic usage. -Continue bowel regimen 15. epistaxis - resolved. 16. thrush - nystatin solution qid. resolved, but continue on nystatin while on prednisone. 17. coag neg staph in blood cx - 1/2 sets this admission, contaminant 18. +tox screen for benzos - final results of confirmatory testing are positive for midazolam,nordiazepam,oxazepam, and temazepam--> she did receive valium prior to admissino, versed while on ventilator, but unclear about the other benzos detected--> are they metabolites of the others? Will d/w Pharmacy but a moot point now appreciate critical care and palliative care consults patient is now level 5 DNR/DNI Disposition-awaiting hospice agency to evaluate her for admission and to have this acceptance prior to [facility] taking her back-will most likely be on Monday
[2018-01-07] MEDS ORDERED: FUROSEMIDE INJ 20 MG in SYRINGE 0 ML IV STA (16:54)
[2018-01-07] MEDS ORDERED: ALBUTEROL 0.083% NEBU SOLN 3 ML VIAL INH PRN (17:00)
[2018-01-07] MEDS: ROSUVASTATIN CALCIUM 20 MG TAB PO SCH (21:28)
[2018-01-07] MEDS: TRAZODONE HCL 50 MG TAB PO SCH (21:34)
[2018-01-07] MEDS: ENOXAPARIN 30 MG/0.3 ML SYR SQ SCH (21:41)
[2018-01-08] VITALS (9 sets, daily range): BP systolic 109–129; BP diastolic 69–75; PULSE 69–88; TEMP 36.9; O2SAT 92–96
[2018-01-08] MEDS: ALBUT/IPRATROP 3MG/0.5MG NEB 3 ML VIAL INH SCH ×5 (01:17→15:15)
[2018-01-08] MEDS: PIPERACILL/TAZOBAC IV 3.375 GM in DEXTROSE 5% 100ML 100 ML IV SCH ×2 (04:12→12:57)
[2018-01-08 06:02] LABS: BASO % 0.1 %; BASO ABS # 0.01 K/uL (0-0.2); EOS % 0.1 %; EOS ABS # 0.01 K/uL (0-0.5); HEMATOCRIT 30.8 % (37-47); HEMOGLOBIN 9.8 g/dL (12.0-16.0); IG# 0.16 K/uL (0.00-0.02); LYMPH % 5.6 %; LYMPH ABS # 0.92 K/uL (1.2-3.4); MEAN CELL VOLUME 95.4 fL (80-100); MEAN CORPUSCULAR HEMOGLOBIN 30.3 pg (25-34); MEAN CORPUSCULAR HGB CONC 31.8 g/dl (32-36); MEAN PLATELET VOLUME 12.1 fL (7.4-10.4); MONO % 7.7 %; MONO ABS # 1.27 K/uL (0.11-0.59); NEUT % 85.5 %; NEUT ABS # 14.02 K/uL (1.4-6.5); PLATELET COUNT 134 K/uL (130-400); RED CELL DISTRIBUTION WIDTH CV 15.6 % (11.5-14.5); RED CELL DISTRIBUTION WIDTH SD 54.1 fL (36.4-46.3); WHITE BLOOD COUNT 16.39 K/uL (4.8-10.8)
[2018-01-08 06:43] LABS: CALCIUM 8.2 mg/dl (8.5-10.1); CREATININE 1.34 mg/dl (0.60-1.20); POTASSIUM 3.8 mmol/L (3.5-5.1)
[2018-01-08] MEDS: BUDESONIDE/FORMOTEROL FUMARATE 160/4.5 60 PUFFS/INHALER INH SCH (08:08)
[2018-01-08] MEDS: MUPIROCIN 2% OINT 22 GM TUBE INTNAS SCH ×2 (08:10→13:08)
[2018-01-08] MEDS: CALCITONIN SALMON NA 200 IU/AC 3.7 ML BTL NAE SCH (08:11)
[2018-01-08] MEDS: METHADONE HCL 10 MG TAB PO SCH (09:56)
[2018-01-08] MEDS: PANTOprazole SOD 40 MG TAB PO SCH (09:57)
[2018-01-08] MEDS: THIAMINE HCL 100 MG TAB PO SCH (09:58)
[2018-01-08] MEDS: HydrALAZINE 10 MG TAB PO SCH ×2 (09:58→14:31)
[2018-01-08] MEDS: CHOLECALCIFEROL 1000 INTER.UNIT TAB PO SCH (09:59)
[2018-01-08] MEDS: CARVEDILOL 25 MG TAB PO SCH (10:00)
[2018-01-08] MEDS: POLYETHYLENE (MIRALAX) 17 GM PACK PO SCH (10:02)
[2018-01-08] MEDS: GABAPENTIN 100 MG CAP PO SCH ×2 (10:02→13:04)
[2018-01-08] MEDS: NYSTATIN SUSP 500,000 U/5 ML UDC PO SCH ×3 (10:06→17:19)
[2018-01-08] MEDS: VERAPAMIL HCL 120 MG TABCR PO SCH (10:07)
[2018-01-08] MEDS: CYANOCOBALAMIN 500 MCG TAB (VIT B-12) PO SCH (10:08)
[2018-01-08] MEDS: SULFAMETHOXAZOLE/TRIMETHOPRIM 400/80MG TAB PO SCH (10:08)
[2018-01-08] MEDS: ALLOPURINOL 100 MG TAB PO SCH (10:09)
[2018-01-08] MEDS: DOCUSATE SODIUM 100 MG/10 ML UDC PO SCH (10:10)
[2018-01-08] MEDS: GUAIFENESIN SUGAR FREE 100 MG/5 ML UDC PO SCH ×3 (10:10→17:19)
[2018-01-08] MEDS ORDERED: IPRA-64 INH (14:08)
[2018-01-08] MEDS ORDERED: PRD10 PO (14:08)
[2018-01-08] MEDS ORDERED: TRAZ1TAB48 PO (14:08)
[2018-01-08] MEDS ORDERED: FLV1 PO (14:08)
[2018-01-08] MEDS ORDERED: DOCU60SY11 PO (14:08)
[2018-01-08] MEDS ORDERED: SYMIN INH (14:08)
[2018-01-08] MEDS ORDERED: MTH10 PO (14:08)
[2018-01-08] MEDS ORDERED: RBTUDL5 PO (14:08)
[2018-01-08] MEDS ORDERED: VTMB12 PO (14:08)
[2018-01-08] MEDS ORDERED: AMOX500T PO (14:08)
[2018-01-08] MEDS ORDERED: BCTRO INTNAS (14:08)
[2018-01-08] MEDS ORDERED: SPT/ PO (14:08)
[2018-01-08] MEDS ORDERED: CLR10 PO (14:08)
[2018-01-08] MEDS ORDERED: CPC LOZ (14:08)
[2018-01-08] MEDS ORDERED: VNTHFA/IN INH (14:08)
[2018-01-08] MEDS ORDERED: NRN100 PO (14:08)
[2018-01-08] MEDS ORDERED: NYSS5 PO (14:08)
[2018-01-08] MEDS ORDERED: OXGN (14:08)
--- NOTE | 2018-01-08 14:42 | Discharge Instructions ---
Discharge Instructions Date of Service Jan 08, 2018. Admission Reason for Admission: Acute Respiratory Failure With Hypoxia Discharge Discharge Diagnosis / Problem: Acute hypoxia respiratory failure Discharge Goals Goal(s): Improve disease control, Diagnostic testing, Therapeutic intervention Activity Recommendations Activity Level: Assistance Required Shower/Bathe: no limitations . 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 for Ecoli ESBL), constipation , with recent admission for intractable headache and just discharged the day prior to admission. Patient became unresponsive and developed respiratory distress during dinner most likely secondary to an aspiration event s/p intubation in the ER for acute on chronic hypoxic respiratory failure and unresponsiveness. After extubation and transfer out of the ICU, she subsequently became obtunded a few days later and was transferred back to the ICU and placed on BiPAP for acute hypercapnic respiratory failure. 1. Acute/chronic hypoxic/hypercarbic respiratory failure - acute component resolved. Severe CO2 narcosis. Intubation avoided with use of BIPAP. Suspect sedatives have been causing depression in her respiratory drive ( methadone, and now tox screen with benzos - see below) or the Stenotrophomonas caused the acute worsening. Or combination of the two. Acute/chronic diastolic CHF + COPD exacerbation also contributing--> improved now. 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 Plan moving forward -she absolutely declines BIPAP at HS, but will continue to use NC O2 continuously; minimize sedating medications. If becomes obtunded further due to hypercapnia, she does not want BiPAP or intubation, however she is doing fairly well at this time -Continue supplemental nasal cannula O2 with 5 L -Continue bronchodilators and allow patient to keep albuterol inhaler at bedside for prn use -continue guaifenesin at scheduled qid dosing -prednisone taper down slowly 2. Bilateral aspiration pneumonia- and also with gram negative jordan ( Stenotrophomonas) - she is on day #13 of abx overall, but day #6 of Zosyn. Much improved now, on chronic level of home O2 She has NOT had any antibiotic in several days that would have covered the Stenotrophomonas. She is currently on zosyn day #6. -Continue regular strength Bactrim 2 tabs p.o. twice daily 7 days (today day #4 ) to cover the Stenotrophomonas and finish out a 7 day course for PNA with Augmentin-switch on day of discharge 3. toxic & metabolic encephalopathy - resolved. Toxic due to methadone, baclofen, lyrica, benzos, etc. Metabolic from CO2 narcosis. 4. COPD with exacerbation - improving, remains with wheezing worsening after tapering down prednisone to 40mg--> improved today with increase back to 50mg -Continue prednisone and slowly taper down by 5mg daily until gone -Continue bronchodilators 5. acute/chronic diastolic CHF - resolved -IV lasix x 1 given as above 6. recent occipital headaches - daily, persistent - resolved with use of verapamil prophylaxis and Valium previously which has been discontinued due to encephalopathy 7. HTN - controlled. 8. DVT proph - lovenox 30mg daily. H/H stable. 9. hemoptysis - resolved. this may have been due to epistaxis. She is s/p bronch earlier this stay without endobronchial lesion. 10. macrocytic anemia with low-normal folate and b12 levels - supplement folate 1mg daily and b12 1000mcg daily. 11. chronic pain syndrome - continue methadone but dose has been cut back to 25mg bid due to concerns about sedation. Has been on this for 4-5+ years. 12. stage 3 CKD - creatinine stable today. 13. insomnia/Depression- after much discussion started with trial of trazodone 25mg HS and tolerating well. -Continue trazodone 25 mg p.o. nightly -discontinued Remeron and Cymbalta 14. constipation - completely resolved, has had multiple large BMs here -Continue bowel regimen 15. epistaxis - resolved. 16. thrush - nystatin solution qid. resolved, but continue on nystatin while on prednisone. 17. coag neg staph in blood cx - 1/2 sets this admission, contaminant 18. +tox screen for benzos - final results of confirmatory testing are positive for midazolam,nordiazepam,oxazepam, and temazepam--> she did receive valium prior to admissino, versed while on ventilator, but unclear about the other benzos detected--> are they metabolites of the other drugs she did take? appreciate critical care and palliative care consults patient is now level 5 DNR/DNI Disposition-accepted by [facility] agency and will dc back to [facility] today POLST form completed and on chart Current Hospital Diet Patient's current hospital diet: AHA Diet (Heart Healthy) Discharge Diet Recommended Diet: Regular Diet (may eat anything and any texture or thickness with known risk of aspiration as per her choice) Procedures Procedures Performed: Intubation Fiberoptic bronchoscopy Multiple CXRs KUBs Lumbar spine CT CT Head Video swallow study Pending Studies Studies pending at discharge: no Physician Orders On Transfer IV Therapy: None Vital Signs: Routine Weigh: Routine POLST Discussion: with POLST completion Laboratory Results Last 24 Hours Test 01/08/18 05:30 White Blood Count 16.39 K/uL Red Blood Count 3.23 M/uL Hemoglobin 9.8 g/dL Hematocrit 30.8 % Mean Corpuscular Volume 95.4 fL Mean Corpuscular Hemoglobin 30.3 pg Mean Corpuscular Hemoglobin Concent 31.8 g/dl Platelet Count 134 K/uL Mean Platelet Volume 12.1 fL Neutrophils (%) (Auto) 85.5 % Lymphocytes (%) (Auto) 5.6 % Monocytes (%) (Auto) 7.7 % Eosinophils (%) (Auto) 0.1 % Basophils (%) (Auto) 0.1 % Neutrophils # (Auto) 14.02 K/uL Lymphocytes # (Auto) 0.92 K/uL Monocytes # (Auto) 1.27 K/uL Eosinophils # (Auto) 0.01 K/uL Basophils # (Auto) 0.01 K/uL RDW Standard Deviation 54.1 fL RDW Coefficient of Variation 15.6 % Immature Granulocyte % (Auto) 1.0 % Immature Granulocyte # (Auto) 0.16 K/uL Sodium Level 138 mmol/L Potassium Level 3.8 mmol/L Chloride Level 97 mmol/L Carbon Dioxide Level 36 mmol/L Anion Gap 5.0 mmol/L Blood Urea Nitrogen 22 mg/dl Creatinine 1.34 mg/dl Est Creatinine Clear Calc Drug Dose 30.8 ml/min Estimated GFR () 46.4 Estimated GFR (Non- 40.0 BUN/Creatinine Ratio 16.2 Random Glucose 128 mg/dl Calcium Level 8.2 mg/dl Magnesium Level 2.1 mg/dl Lipid Panel Test 12/27/17 04:24 Range/Units Triglycerides Level 194 H 0-150 mg/dl Cholesterol Level 180 0-200 mg/dl HDL Cholesterol 59 mg/dl Cholesterol/HDL Ratio 3.1 LDL Cholesterol, Calculated 82 mg/dl Medical Emergencies . Who to Call and When: Medical Emergencies: If at any time you feel your situation is an emergency, please call 911 immediately. . Non-Emergent Contact Non-Emergency issues call your: Primary Care Provider (or Hospice Provider) Call Non-Emergent contact if: you have a fever, your pain is not controlled, your pain is worsening, your pain is unusual for you, your pain is concerning you, you have any medication questions . . "Provider Documentation" section prepared by Elenita Rowe. . Core Measure Problem Core Measures: None [place] Drug Monitoring Program Search Results: patient reviewed within database, no issues identified
--- NOTE | 2018-01-08 14:54 | Discharge Summary ---
Discharge Summary Date of Service Jan 08, 2018. Discharge Summary Admission Date: Dec 26, 2017 at 22:49 Discharge Date: Jan 08, 2018 Discharge Disposition: detention facility Principal Diagnosis: Acute hypoxic respiratory failure Problems/Secondary Diagnoses: Acute hypercapnic respiratory failure Gout Hyperlipidemia Nec/Nos Lumbar compression fracture Osteoporosis-severe, accompanied by multiple fractures Right renal artery stenosis Secondary hyperparathyroidism HTN CKD III Acute on chronic diastolic CHF COPD with exacerbation Chronic hypoxic respiratory failure Bronchiectasis and recurrent pneumonia Major depressive disorder Chronic back/hip pain/chronic pain syndrome Chronic opioid dependence on methadone History of recurrent UTI (U cx in 08/2017 pos. 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 Insomnia Oral candidiasis Blood culture contaminant Immunizations: Have You Had Influenza Vaccine: Yes Influenza Vaccine Date: Mar 01, 2013 History of Tetanus Vaccine?: Yes Tetanus Immunization Date: Dec 18, 2009 History of Pneumococcal: Yes Pneumococcal Date: Jun 01, 2012 History of Hepatitis B Vaccine: No Procedures: Intubation Fiberoptic bronchoscopy Multiple CXRs KUBs Lumbar spine CT CT Head Video swallow study Consultations: Critical Care Medicine Pulmonology Infectious Disease Palliative Care Medicine Medication Reconciliation New Medications: Albuterol Hfa (Ventolin Hfa) 200 Puffs/99950 Mcg Aers 2 PUFFS INH Q2H PRN for SOB/Wheezing for 30 Days, #1 INHALER PLEASE ALLOW PATIENT TO KEEP THIS AT BEDSIDE Amoxicillin & Pot Clavulanate (Augmentin 500MG) 1 Tab Tab 500 MG PO Q8H for 1 Day, TAB Budesonide/Formoterol Fumarate (Symbicort 160-4.5 Mcg/Act) 60 Puffs/Inhaler Aero 2 PUFFS INH BID for 30 Days Cyanocobalamin (Vitamin B-12) 500 Mcg Tab 1000 MCG PO QAM for 30 Days Docusate Sodium (Gnp Stool Softener) 60 Mg/15 Ml Syp 100 MG PO BID for 30 Days Folic Acid (Folic Acid) 1 Mg Tab 1 MG PO QAM for 30 Days, #30 TAB Gabapentin (Gabapentin) 100 Mg Cap 100 MG PO TID for 30 Days, #90 CAP Guaifenesin (Robitussin) 100 Mg/5 Ml Robyn 100 MG PO QID for 14 Days Ipratropium-Albuterol (Duoneb) 3 Ml Nebu 3 ML INH Q4HWA for 30 Days Menthol (Ricola) 24 Mady/1 Box Lozg 1 MADY MADY Q1H PRN for SORE THROAT for 7 Days Mupirocin (Mupirocin) 66 Appln/22 Gm Oint 1 APPLN INTNAS TID for 7 Days Nystatin (Nystatin) 5 Ml Susp 5 ML PO QID for 10 Days Prednisone (Prednisone) 10 Mg Tab 50 MG PO DAILY for 10 Days and decrease dose by 5mg each day until down to 0 mg Trazodone Hcl (Desyrel) 50 Mg Tab 25 MG PO HS for 30 Days, #30 TAB Trimethoprim/Sulfamethoxazole (Bactrim 400MG/80MG) 1 Ea Tab 2 TAB PO BID for 4 Days, #16 TAB Changed Medications: Home O2 Therapy (Oxygen) Gas 5 LITERS NA DAILY for 30 Days (Changed from: 4 LITERS; PRN; Removed Instructions ) Loratadine (Claritin) 10 Mg Tab 10 MG PO DAILY PRN for allergy symptoms for 30 Days, #30 TAB (Medication details modified) Methadone HCl (Methadone HCl) 10 Mg Tab 25 MG PO BID for 3 Days, #15 TABS (Changed from: 30 MG; TID) Continued Medications: Acetaminophen (Tylenol) 325 Mg Tab 650 MG PO Q6 PRN for Pain or Fever, TAB NEEDED FOR PAIN # 1- 10 OR TEMP > 101F. NTE 3GM APAP /24HRS. Allopurinol (Zyloprim) 100 Mg Tab 100 MG PO BID, TAB Bisacodyl (Dulcolax) 10 Mg Sup 1 SUPP NC UD PRN for Constipation, SUP IF NO RESULTS FROM MOM Calcitonin [place] (Calcitonin-[place]) 30 [place]/3.7 Ml Soln 1 SPRAY ERIC QAM Carvedilol (Coreg) 25 Mg Tab 25 MG PO BID, TAB hold for ap heart rate <50 Cholecalciferol (D-1000) 1,000 Unit Tab 4000 UNITS PO QAM Dextrose (Diabetic Use) (Insta-Glucose) 77.4 % Gel 1 APPLN PO UD give 1 application by mouth as needed for hypoglycemia blood glucose less than 60 and /or symptomatic hypoglycemia Epinephrine (Epipen) 0.3 Mg/0.3 Ml Inj 0.3 MG IM UD PRN for ALLERGIC REACTION Glucagon (Glucagon Emergency Kit) 1 Mg Kit 1 APPLN IM EVERY 15 MINS NEEDED FOR HYPOGLYCEMIA BLOOD GLUCOSE < 50 AND OR SYMPTOMATIC/UNRESPONSIVE HYPOGLYCEMIA. MAY REPEAT IN 15 MINS IF NEEDED Hydralazine HCl (Hydralazine HCl) 10 Mg Tab 10 MG PO TID for 30 Days, #90 TAB Magnesium Hydroxide (Milk Of Magnesia) 30 Ml Susp 30 ML PO UD PRN for Constipation, ML Mineral Oil (Enema Mineral Oil) 1 Lisa Lisa 1 BTL NC UD PRN for Constipation IF NO RESULT FROM DULCOLAX Ondasetron Odt (Zofran Odt) 4 Mg Tab 4 MG SL Q6H PRN for Nausea, #6 TAB Pantoprazole (Protonix) 40 Mg Tab 40 MG PO BID, TAB Polyethylene Glycol 3350 (Miralax) 1 Pow Pow 17 GM PO BID, #255 GM Saline (Saline Nasal [place]) 0.65 % Spr 2 SPRAYS ERIC Q8 PRN for Nasal Congestion Sumatriptan Succinate (Imitrex) 25 Mg Tab 25 MG PO UD PRN for Migraine, TAB give 25mg every 24 hours as needed for headaches may repeat dose if headache persists after 2 hours Thiamine HCl (Vitamin B-1) 100 Mg Tab 200 MG PO QAM for 30 Days, #60 TAB Verapamil Hcl (Verapamil Hcl Er) 120 Mg Tab 120 MG PO QAM for 30 Days, TAB Discontinued Medications: Albuterol Sulfate (Albuterol Sulfate) 1.25 Mg/3 Ml Neb 1 VIAL NEB Q4 PRN for SOB/Wheezing for 5 Days, #75 ML Baclofen (Lioresal) 10 Mg Tab 10 MG PO TID, TAB Diazepam (Valium) 5 Mg Tab 2.5 MG PO Q12 PRN for Headache, TAB Doxepin HCl (Antipruritic) (Doxepin Hydrochloride) 5 % Cre 1 APPLN TOP Q6 PRN for Pain Duloxetine HCl (Cymbalta) 30 Mg Cap 30 MG PO QAM, CAP 2 Refills Fluticasone Prop/Salmeterol (Advair Diskus 250/50 60 Dose) 1 Ea Aerp 1 PUFFS INH BID, INHALER Ipratropium-Albuterol (Combivent Respimat) 1 Aer Aer 1 PUFFS INH QID, INH Lidocaine (Anorectal) (Lidocaine) 5 % Cre 1 APPLN TOP Q6 PRN for Pain TO RIGHT FOOT. APPLY AFTER DOXEPIN CREAM Mirtazapine (Remeron) 15 Mg Tab 15 MG PO HS Multivitamin (Multivitamin) Tab 1 TAB PO QAM, TAB Nystatin (Topical) (Nystop) 100,000 Unit/Gm Pow 1 APPLN TOP BID Ondansetron (Ondansetron Hcl) 2 Mg/Ml Inj 4 MG IV Q6 PRN for Nausea or Vomiting, EA Prednisone Tab (Prednisone) 10 Mg Tab 60 MG PO DAILY, TAB give 60mg daily for migraine without aura, not intractable, without status migrainosus for 2 days Pregabalin (Lyrica) 50 Mg Cap 50 MG PO BID for 30 Days, #60 CAP Promethazine Hcl (Phenergan) 25 Mg/Ml Inj 25 MG IV Q6 PRN for Nausea or Vomiting Senna/Docusate Sod (Senokot S) 1 Tab Tab 1 TAB PO BID, TAB Tiotropium [place] (Spiriva Handihaler) 30 Puff/540 Mcg Aerp 1 CAP INH DAILY, INHALER Discharge Exam Patient doing fairly well. Still coughing up sputum and at times feels like fluid is building up her chest but that is relieved with albuterol nebulizer. Is eating fairly well but does not like the food. Moving her bowels, no abdominal pain. No chest pain. She met with the hospice agency today and did the intake. She is ready for discharge back to the longterm. Physical Exam General Appearance: no apparent distress, + thin, + pertinent finding (severe kyphosis) Eyes: normal inspection, sclerae normal ENT: hearing grossly normal Neck: trachea midline Respiratory/Chest: no respiratory distress, no accessory muscle use, + crackles (at bases bilat), + wheezing (scattered exp wheezes) Cardiovascular: regular rate, rhythm, no edema, no murmur Abdomen: normal bowel sounds, non tender, soft Extremities: no pedal edema, no calf tenderness Neurologic/Psychiatric: alert, normal mood/affect, oriented x 3 Skin: normal color, warm/dry, no rash Review of Systems: Constitutional: No fever, No chills Eyes: No problem reported ENT: No problem reported Respiratory: + cough, + wheezing Cardiovascular: No chest pain Abdomen: No pain, No nausea, No vomiting, No diarrhea, No constipation Musculoskeletal: + joint pain (Chronic) Genitourinary - Female: No problem reported Neurologic: No problem reported Psychiatric: No problem reported Endocrine: No problem reported Hematologic / Lymphatic: No problem reported Integumentary: No problem reported Hospital Course This pt is a 72yo female with a h/o HTN, HPL, secondary hyperparathyroidism, CKD III, gout, chronic diastolic CHF, COPD - O2-dependent/chronic hypoxic respiratory failure, bronchiectasis and recurrent pneumonia, depression, severe osteoporosis complicated by multiple fractures, chronic back/hip pain on methadone, and recurrent UTI (U cx in 08/2017 pos. for Ecoli ESBL), constipation , with recent admission for intractable headache and just discharged the day prior to admission. Patient became unresponsive and developed respiratory distress during dinner most likely secondary to an aspiration event s/p intubation in the ER for acute on chronic hypoxic respiratory failure and unresponsiveness. After extubation and transfer out of the ICU, she subsequently became obtunded a few days later and was transferred back to the ICU and placed on BiPAP for acute hypercapnic respiratory failure. 1. Acute/chronic hypoxic/hypercarbic respiratory failure - acute component resolved. Severe CO2 narcosis. Intubation avoided with use of BIPAP. Suspect sedatives have been causing depression in her respiratory drive ( methadone, and now tox screen with benzos - see below) or the Stenotrophomonas caused the acute worsening. Or combination of the two. Acute/chronic diastolic CHF + COPD exacerbation also contributing--> improved now. 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 Plan moving forward -she absolutely declines BIPAP at HS, but will continue to use NC O2 continuously; minimize sedating medications. If becomes obtunded further due to hypercapnia, she does not want BiPAP or intubation, however she is doing fairly well at this time -Continue supplemental nasal cannula O2 with 5 L -Continue bronchodilators and allow patient to keep albuterol inhaler at bedside for prn use -continue guaifenesin at scheduled qid dosing -prednisone taper down slowly 2. Bilateral aspiration pneumonia- and also with gram negative jordan ( Stenotrophomonas) - she is on day #13 of abx overall, but day #6 of Zosyn. Much improved now, on chronic level of home O2 She has NOT had any antibiotic in several days that would have covered the Stenotrophomonas. She is currently on zosyn day #6. -Continue regular strength Bactrim 2 tabs p.o. twice daily 7 days (today day #4 ) to cover the Stenotrophomonas and finish out a 7 day course for PNA with Augmentin-switch on day of discharge 3. toxic & metabolic encephalopathy - resolved. Toxic due to methadone, baclofen, lyrica, benzos, etc. Metabolic from CO2 narcosis. 4. COPD with exacerbation - improving, remains with wheezing worsening after tapering down prednisone to 40mg--> improved today with increase back to 50mg -Continue prednisone and slowly taper down by 5mg daily until gone -Continue bronchodilators 5. acute/chronic diastolic CHF - resolved -IV lasix x 1 given as above 6. recent occipital headaches - daily, persistent - resolved with use of verapamil prophylaxis and Valium previously which has been discontinued due to encephalopathy 7. HTN - controlled. 8. DVT proph - lovenox 30mg daily. H/H stable. 9. hemoptysis - resolved. this may have been due to epistaxis. She is s/p bronch earlier this stay without endobronchial lesion. 10. macrocytic anemia with low-normal folate and b12 levels - supplement folate 1mg daily and b12 1000mcg daily. 11. chronic pain syndrome - continue methadone but dose has been cut back to 25mg bid due to concerns about sedation. Has been on this for 4-5+ years. 12. stage 3 CKD - creatinine stable today. 13. insomnia/Depression- after much discussion started with trial of trazodone 25mg HS and tolerating well. -Continue trazodone 25 mg p.o. nightly -discontinued Remeron and Cymbalta 14. constipation - completely resolved, has had multiple large BMs here -Continue bowel regimen 15. epistaxis - resolved. 16. thrush - nystatin solution qid. resolved, but continue on nystatin while on prednisone. 17. coag neg staph in blood cx - 1/2 sets this admission, contaminant 18. +tox screen for benzos - final results of confirmatory testing are positive for midazolam,nordiazepam,oxazepam, and temazepam--> she did receive valium prior to admissino, versed while on ventilator, but unclear about the other benzos detected--> are they metabolites of the other drugs she did take? appreciate critical care and palliative care consults patient is now level 5 DNR/DNI Disposition-accepted by [facility] agency and will dc back to [facility] today POLST form completed and on chart Total Time Spent: Greater than 30 minutes This includes examination of the patient, discharge planning, medication reconciliation, and communication with other providers. Discharge Instructions Please refer to the electronic Patient Visit Report (Discharge Instructions) for additional information. Follow-Up With PCP and/or hospice provider within 1 week Additional Copies To Marti Vila
--- NOTE | 2018-01-10 09:09 | Critical Care Progress Note ---
Critical Care Progress Note Date of Service Jan 10, 2018. Critical Care Progress Note notified by microbiology of acid fast result. I have notified Ms. Janes BERMUDEZ of infection control who will be following up the reflex DNA probe result.
== END 2018-01-08 18:38 | DRG 166 ==
LOC: C.EDB 20:43 → C.MSICU 22:49 → ENRESERV 22:54 → C.2E 12-29 16:18 → EDBEDREQ 01-02 14:32 → ENRESERV 01-02 14:33 → CANBEDREQ 01-02 15:10 → C.MSICU 01-02 20:04 → ENRESERV 01-05 15:26 → C.MS2W 01-05 16:05
PROVIDERS: ADMIT Internal Medicine; ATTEND Family Medicine
PROC: 5A1945Z Respiratory Ventilation, 24-96 Consecutive Hours (ICD-10-PCS; 2017-12-26)
PROC: 0B9J8ZX Drainage of Left Lower Lung Lobe, Via Natural or Artificial Opening Endoscopic, Diagnostic (ICD-10-PCS; principal; 2017-12-27)
PROC: 0B9D8ZX Drainage of Right Middle Lung Lobe, Via Natural or Artificial Opening Endoscopic, Diagnostic (ICD-10-PCS; principal; 2017-12-27)
DX: J96.02 Acute respiratory failure with hypercapnia (principal); J69.0 Pneumonitis due to inhalation of food and vomit; J15.6 Pneumonia due to other Gram-negative bacteria; J47.1 Bronchiectasis with (acute) exacerbation; I50.33 Acute on chronic diastolic (congestive) heart failure; I13.0 Hypertensive heart and chronic kidney disease with heart failure and stage 1 through stage 4 chronic kidney disease, or unspecified chronic kidney disease; E21.3 Hyperparathyroidism, unspecified; N18.3 Chronic kidney disease, stage 3 (moderate); M10.9 Gout, unspecified; Z99.81 Dependence on supplemental oxygen; F32.9 Major depressive disorder, single episode, unspecified; M81.0 Age-related osteoporosis without current pathological fracture; Z96.649 Presence of unspecified artificial hip joint; Z87.891 Personal history of nicotine dependence; Z88.1 Allergy status to other antibiotic agents; M25.559 Pain in unspecified hip; M54.9 Dorsalgia, unspecified; G89.4 Chronic pain syndrome; K59.00 Constipation, unspecified; G92 Toxic encephalopathy; Z87.440 Personal history of urinary (tract) infections; B37.0 Candidal stomatitis; E53.8 Deficiency of other specified B group vitamins; Z85.71 Personal history of Hodgkin lymphoma; E87.6 Hypokalemia; T42.4X5A Adverse effect of benzodiazepines, initial encounter; T42.6X5A Adverse effect of other antiepileptic and sedative-hypnotic drugs, initial encounter; Y92.129 Unspecified place in nursing home as the place of occurrence of the external cause; M40.209 Unspecified kyphosis, site unspecified; G62.9 Polyneuropathy, unspecified